=== PATIENT | female | born 1955 | race Caucasian/White ===

== ENCOUNTER → 2020-04-29 10:44 | Outpatient (BNVA) | payer OTHER, SELFPAY | PROVIDERS: PCP Internal Medicine Endocrinology, Diabetes & Metabolism; Visit Provider Nurse Practitioner Family | DX: Z13.89 Encounter for screening for other disorder (principal) | CPT/HCPCS: 99202 ==

== ENCOUNTER → 2020-05-15 10:58 | Outpatient (BNVA) | payer OTHER, SELFPAY | PROVIDERS: PCP Internal Medicine Endocrinology, Diabetes & Metabolism; Visit Provider Nurse Practitioner Family | DX: M16.12 Unilateral primary osteoarthritis, left hip (principal); M47.27 Other spondylosis with radiculopathy, lumbosacral region; M96.1 Postlaminectomy syndrome, not elsewhere classified | CPT/HCPCS: 99212 ==

== ENCOUNTER 2020-05-25 09:16 | Outpatient (REF) | payer OTHER, SELFPAY ==
--- NOTE | ~2020-05-25 | XR_ITS ---
EXAMINATION: XR HIP, LEFT CLINICAL INFORMATION: Arthritis COMPARISON: None TECHNIQUE: Two views of the left hip. FINDINGS: Bone alignment is normal. No fracture or dislocation is seen. There is moderate left hip arthritis with joint space narrowing and osteophyte formation. Soft tissues are unremarkable. XR/XR hip LT min 2V IMPRESSION: Moderate left hip arthritis.
== END 2020-05-25 09:17 | disposition home or self-care (01) ==
LOC: HO.XRAY 09:16
PROVIDERS: PCP Internal Medicine; Visit Provider Nurse Practitioner Family
DX: M16.12 Unilateral primary osteoarthritis, left hip (principal)
CPT/HCPCS: 73502

== ENCOUNTER → 2020-05-29 11:07 | Outpatient (BNVA) | payer OTHER, SELFPAY | PROVIDERS: PCP Internal Medicine; Visit Provider Nurse Practitioner Family ==

== ENCOUNTER → 2020-06-01 09:46 | Outpatient (BNVA) | payer OTHER, SELFPAY | PROVIDERS: PCP Internal Medicine; Visit Provider Nurse Practitioner Family | DX: M16.12 Unilateral primary osteoarthritis, left hip (principal); M96.1 Postlaminectomy syndrome, not elsewhere classified; M47.27 Other spondylosis with radiculopathy, lumbosacral region; Z79.899 Other long term (current) drug therapy | CPT/HCPCS: Q3014 ==

== ENCOUNTER → 2020-06-26 10:48 | Outpatient (BNVA) | payer OTHER, SELFPAY | PROVIDERS: PCP Internal Medicine; Visit Provider Nurse Practitioner Family | DX: M16.12 Unilateral primary osteoarthritis, left hip (principal); M96.1 Postlaminectomy syndrome, not elsewhere classified; M47.27 Other spondylosis with radiculopathy, lumbosacral region | CPT/HCPCS: 99212 ==

== ENCOUNTER → 2020-07-24 10:22 | Outpatient (BNVA) | payer OTHER, SELFPAY | PROVIDERS: PCP Internal Medicine; Visit Provider Nurse Practitioner Family | DX: M47.27 Other spondylosis with radiculopathy, lumbosacral region (principal); M16.12 Unilateral primary osteoarthritis, left hip; M96.1 Postlaminectomy syndrome, not elsewhere classified; Z79.899 Other long term (current) drug therapy | CPT/HCPCS: 99212 ==

== ENCOUNTER 2020-11-20 07:48 | Day surgery (SDC) | payer MEDICARE, OTHER, SELFPAY ==
[2020-11-16 15:06] VITALS: BMI 37.5
--- NOTE | 2020-11-19 18:34 | MHC.SHP ---
Pre-Procedural Eval Section A Date of Service: 11/19/20 Section B Chief Complaint: spondylosis of lumbosacral spine with radiculopath Details of Present Illness: As above Relevant Social History: None Present Medications: see Short Stay Collaborative assessment Medical History: No relevant PMH History of Previous Operations: Relevant previous surgery/procedure and date(s) Allergies: Allergies Allergy/AdvReac Type Severity Reaction Status Date / Time Sulfa (Sulfonamide Allergy Intermediate SWELLING Verified 11/16/20 14:55 Antibiotics) metformin AdvReac Intermediate diarrhea Verified 11/16/20 14:55 Review of Systems Sugical H&P ROS: Negative: Constitution, Cardiovascular, Respiratory, Neurological, Psychiatric, Hem-Onc, Allergic/Immunologic, Gastrointestinal, Genitourinary, Musculoskeletal, Integumentary, Endocrine and Eyes/Ears/Nose/Throat Exam Surgical H&P Exam: Normal: HEENT, Normal: Heart, Normal: Lungs, Normal: Extremities, Normal: Abdomen, Normal: Skin and Normal: Neurological Plan Diagnosis/Plan: Unchanged I have reviewed the history and physical and performed a pertinent physical examination on my patient. No changes have occurred unless specified.
--- NOTE | ~2020-11-20 | FL_ITS ---
EXAMINATION: XR FLUOROSCOPY WITH IMAGES CLINICAL INFORMATION: Spinal cord stimulation trial. COMPARISON: None. TECHNIQUE: Fluoroscopy performed by Dr. Rell Leavitt. Fluoroscopy time: 2.6 minutes DAP: 20.2 mGycm2 Images: 2 FINDINGS: The 2 submitted images obtained in the frontal and lateral planes show spinal cord stimulator leads. The 2 leads terminate at the level of the T9 upper and lower endplates. No lead fracture is seen. There are upper abdominal surgical clips. FL/FL guidance in OR IMPRESSION: Intraoperative fluoroscopic guidance is provided during spinal cord stimulation trial. Please see Operative Report for full procedural details.
[2020-11-20 08:00] VITALS: BP 130/78; PULSE 63; RESP 18; TEMP 36.8; O2SAT 95
[2020-11-20 08:12] LABS: Glucose, Whole Blood 126 mg/dL (60-115)
[2020-11-20] MEDS: ceFAZolin Sodium/Dextrose,Iso 2 GM/50 ML PIGGYBACK IV (08:25)
--- NOTE | 2020-11-20 09:39 | P.CONAN_ITS ---
[facility] Active Problems Active Problems: All Active Problems (Updated 11/16/20 @ 15:05 by Michelle fong RN) Spondylosis of lumbosacral spine with radiculopathy (Acute) Failed back syndrome (Acute) Osteoarthritis of left hip (Acute) Past Medical History Medical History Ambulates with cane Ankle pain, right Arthritis of left hip COPD (chronic obstructive pulmonary disease) Elevated cholesterol Full dentures IDDM (insulin dependent diabetes mellitus) Liver cyst Low back pain Family History Family history of problems with anesthesia: No Surgical History Surgical History History of back surgery Hx of carpal tunnel repair Hx of colonoscopy History of Problems with Anesthesia: No Social History Social History Patient Tobacco Use Status: Former Tobacco user Quit Date: 2008 Tobacco use type: Cigarette Are you DNR?: No Advance Directives: No Advance Directives Information Provided: No Advance Directives on File: No Meds Allergies Allergy/AdvReac Type Severity Reaction Status Date / Time Sulfa (Sulfonamide Allergy Intermediate SWELLING Verified 11/16/20 14:55 Antibiotics) metformin AdvReac Intermediate diarrhea Verified 11/16/20 14:55 Home Medications Medication Instructions Recorded Confirmed Last Taken Type baclofen 10 mg tablet 10 mg PO BID 04/29/20 11/16/20 11/20/20 History cyanocobalamin (vitamin B-12) 1,000 mcg PO DAILY 04/29/20 11/16/20 Unknown History 1,000 mcg capsule fluticasone propionate 230 2 puff INHALATION BID 04/29/20 11/16/20 Unknown History mcg-salmeterol 21 mcg/actuation HFA inhaler (Advair HFA) ibuprofen 800 mg tablet 800 mg PO TID PRN 04/29/20 11/16/20 Unknown History loratadine 10 mg tablet (Claritin) 10 mg PO DAILY 04/29/20 11/16/20 11/20/20 History multivitamin (Daily Multi-Vitamin) 1 tab PO DAILY 04/29/20 11/16/20 Unknown History thiamine HCl (vitamin B1) 100 mg 100 mg PO DAILY 04/29/20 11/16/20 Unknown History tablet albuterol sulfate 90 mcg/actuation 2 puff INHALATION Q6H PRN 11/16/20 11/16/20 Unknown History aerosol inhaler (Ventolin HFA) atorvastatin 20 mg tablet 20 mg PO BEDTIME 11/16/20 11/16/20 Unknown History cholecalciferol (vitamin D3) 25 25 mcg PO DAILY 11/16/20 11/16/20 Unknown History mcg (1,000 unit) capsule (Vitamin D3) hydroxyzine HCl 10 mg tablet 1 tab PO BID 11/16/20 11/16/20 11/20/20 History hydroxyzine HCl 25 mg tablet 1 tab PO QPM 11/16/20 11/16/20 Unknown History insulin glargine 100 unit/mL (3 10 unit SUBCUT BEDTIME 11/16/20 11/16/20 Unknown History mL) subcutaneous pen (Lantus Solostar U-100 Insulin) naproxen 500 mg tablet 500 mg PO BID 11/16/20 11/16/20 Unknown History Exam Exam Date and Time: November 20, 2020 0939 Height,Weight and Vital Signs: Height 5 ft Weight 87.09 kg Last Vital Signs Temp 98.2 F 11/20/20 08:00 Pulse 63 11/20/20 08:00 Resp 18 11/20/20 08:00 BP 130/78 11/20/20 08:00 Pulse Ox 95 11/20/20 08:00 Pertinent Lab Results Pertinent Lab Results: Laboratory Tests 11/20/20 08:07 POC Glucose 126 H Airway Mallampati Class: II TM Dist: >3cm Neck ROM: Full Assessment and Plan Assessment Anesthesia Assessment: Anesthesia Plan Discussed and Chart Reviewed Final Anesthetic Review Family History of Problems with Anesthesia: No History of Problems with Anesthesia: No NPO: Yes ASA Class: III Final Preanesthetic Review: No Changes in Pt Med Stat, Meds/Allgs Chart Reviewed, Consent Obtained/Reviewed and Anes Risks/Benef Reviewed Patient Risk: Intermediate Procedure Risk: Low Assessment/Block/Sedation in SS: Assess/Block/Sedation-SS Anesthetic Plan Anesthetic Plan: MAC: Disposition: Standard PACU
[2020-11-20 11:20] VITALS: BP 114/76; PULSE 53; RESP 12; TEMP 36.6; O2SAT 96
--- NOTE | 2020-11-20 11:27 | PM.OP ---
Brief Operative Note Date of Service: 11/20/20 Pre-op diagnosis: Failed back surgery syndrome Post-op diagnosis: same Procedure: As above Implants: None permanent Surgeon: Rell Leavitt MD Anesthesia: MAC Was an [employer] Consultant used for this Procedure?: No Estimated blood loss (mL): 4 Pathology: none sent Condition: stable Disposition: PACU
--- NOTE | 2020-11-20 11:28 | W.PM.OPN ---
Operative Note Operative Note Date of Service: 11/20/20 Narrative: Yanet?is very pleasant??64 years old lady who came today into the operating room for trial of spinal cord stimulator for the treatment of post laminectomy syndrome and chronic pain syndrome.? Preoperatively patient received 2 g of cefazolin approximately 15 minutes before procedure. After obtaining informed consent patient was brought to the operating room, SHE was positioned prone on operating table, [place] [employer] monitors were applied and patient was deeply sedated.? The patient was taken inside of the operating room where she was positioned prone on operating table.? Time-out was performed delineating correct site, side, the nature of the procedure, patient's allergy, preoperative antibiotic if needed.? All operating room staff was participating in OR time-out procedure. Patient's entire back was prepped with ChloraPrep twice and draped with full body fenestrated drape.? Sterilely draped C-arm was brought over operating field and sqare picture of T11-T12 L1 L2 vertebrae as were demonstrated on the screen.? Extensive hardware from L2-S1 was noted on the screen. Attention FIRST? was concentrated on the T12-L1 epidural interspace.? The location of the projection of the right pedicle center of the L2 vertebra was found on the skin using C-arm.? This location was injected with mixture of lidocaine 2% and Marcaine 0.5% 5 cc.? After that 11 blade was used to make a kenneth on the skin.? 10 cm 14 gauge introducer epidural needle was inserted through the kenneth and advanced to T12-L1 epidural interspace.? The advancement of the needle was performed on anterior posterior and lateral views.? Guitar wire and loss of resistance technique were used to locate epidural space.? When guitar wire was spread in the epidural fashion, epidural lead was inserted through the skin and it was advanced to T8 position SLIGHTLY RIGHT OF THE MIDLINE.? After that location of the projection of the LEFT pedicle center and pedicular screw in this projection of the L2 vertebra was found on the skin using C-arm.? This location was injected with mixture of lidocaine 2% and Marcaine 0.5% 5 cc.? After that 11 blade was used to make a kenneth on the skin.? 10 cm 14 gauge ?introducer epidural needle was inserted through the kenneth and advanced to T12-L1 epidural interspace.? The advancement of the needle was performed on anterior posterior and lateral views.? Loss of resistance technique was used to locate epidural space.? When guitar wire was spread in the epidural fashion, epidural lead was inserted through the needle and advanced to the T8 posterior epidural space practically at the midline. At this moment patient was awaken and the epidural leads were connected to the testing device.? The patient reported stimulation corresponding to her pain.? After satisfactory position of the leads were established the needles were withdrawn, the stylette wires were removed from the epidural leads.? The anchoring devices were dislodged on the leads and advanced to the level of the skin.? The anchoring devices were sutured with 3 0-0 silk sutures to each anchoring device to the skin of the patient.? The leads were connected to testing device.? Bacitracin ointment was applied to the entrance point of bilateral needles.? Sterile dressing was applied to the patient's back.? The testing device was also glued to the patient's back.? Upon completion of the procedure the patient was taken to PACU where SHE recovered uneventfully.??
[2020-11-20 11:35] VITALS: BP 152/80; PULSE 57; RESP 16; O2SAT 96
[2020-11-20 11:50] VITALS: BP 159/83; PULSE 57; RESP 17; O2SAT 96
== END 2020-11-20 12:40 | disposition home or self-care (01) ==
PROVIDERS: PCP Internal Medicine; Visit Provider Anesthesiology
PROC: (CPT 63650; principal; 2020-11-20 09:30)
DX: M96.1 Postlaminectomy syndrome, not elsewhere classified (principal); G89.4 Chronic pain syndrome; M47.27 Other spondylosis with radiculopathy, lumbosacral region; E11.9 Type 2 diabetes mellitus without complications; Z79.4 Long term (current) use of insulin
CPT/HCPCS: 63650 ×2; 82947; C1778; C1883; J0690; J2250; J3010

== ENCOUNTER → 2020-11-26 10:03 | Outpatient (BNVA) | payer MEDICARE, OTHER, MEDICAID, SELFPAY | PROVIDERS: PCP Internal Medicine; Visit Provider Anesthesiology | DX: M16.12 Unilateral primary osteoarthritis, left hip (principal); M96.1 Postlaminectomy syndrome, not elsewhere classified; M47.27 Other spondylosis with radiculopathy, lumbosacral region | CPT/HCPCS: 99212 ==

== ENCOUNTER 2021-02-25 10:36 | Day surgery (SDC) | payer MEDICARE, OTHER, SELFPAY ==
[2021-02-16 13:59] VITALS: BMI 38.5
--- NOTE | 2021-02-24 11:44 | P.CONAN_ITS ---
Documented by User: Keyla Mariscal NP 02/24/21 11:45 HPI - Anesthesia Eval Consult details Narrative: 65yo F for Lumbar Spinal Stimulation Implant s/p trial 10/2020 with MAC [facility] Active Problems Active Problems: All Active Problems (Updated 02/16/21 @ 13:59 by Karuna Medel, VILMA) Spondylosis of lumbosacral spine with radiculopathy (Acute) Failed back syndrome (Acute) Osteoarthritis of left hip (Acute) Past Medical History Medical History (Updated 02/16/21 @ 13:59 by Karuna Medel RN) Ambulates with cane Ankle pain, right Arthritis of left hip COPD (chronic obstructive pulmonary disease) COVID-19 vaccine series completed Elevated cholesterol Full dentures IDDM (insulin dependent diabetes mellitus) Liver cyst Low back pain Status post insertion of nerve stimulator Family History Family history of problems with anesthesia: No Surgical History Surgical History History of back surgery Hx of carpal tunnel repair Hx of colonoscopy History of Problems with Anesthesia: No Social History Social History Patient Tobacco Use Status: Former Tobacco user Quit Date: 2008 Tobacco use type: Cigarette Use of substances other than those prescribed or required for medical reasons: No Have you been hit, kicked, punched, or otherwise hurt by someone within the past year? If so, by whom?: No Are you DNR?: No Advance Directives: No Advance Directives Information Provided: Yes Advance Directives on File: No Recently lost weight without trying: No Eating poorly because of decreased appetite: No Nutrition Risks: No Nutritional Risk Meds Allergies Allergy/AdvReac Type Severity Reaction Status Date / Time Sulfa (Sulfonamide Allergy Intermediate SWELLING Verified 11/16/20 14:55 Antibiotics) metformin AdvReac Intermediate diarrhea Verified 11/16/20 14:55 Home Medications Medication Instructions Recorded Confirmed Last Taken Type baclofen 10 mg tablet 10 mg PO BID 04/29/20 02/16/21 11/20/20 History cyanocobalamin (vitamin B-12) 1,000 mcg PO DAILY 04/29/20 02/16/21 Unknown History 1,000 mcg capsule fluticasone propionate 230 2 puff INHALATION BID 04/29/20 02/16/21 Unknown History mcg-salmeterol 21 mcg/actuation HFA inhaler (Advair HFA) ibuprofen 800 mg tablet 800 mg PO TID PRN 04/29/20 02/16/21 Unknown History loratadine 10 mg tablet (Claritin) 10 mg PO DAILY 04/29/20 02/16/21 11/20/20 History multivitamin (Daily Multi-Vitamin) 1 tab PO DAILY 04/29/20 02/16/21 Unknown History thiamine HCl (vitamin B1) 100 mg 100 mg PO DAILY 04/29/20 02/16/21 Unknown History tablet albuterol sulfate 90 mcg/actuation 2 puff INHALATION Q6H PRN 11/16/20 02/16/21 Unknown History aerosol inhaler (Ventolin HFA) atorvastatin 20 mg tablet 20 mg PO BEDTIME 11/16/20 02/16/21 Unknown History cholecalciferol (vitamin D3) 25 25 mcg PO DAILY 11/16/20 02/16/21 Unknown History mcg (1,000 unit) capsule (Vitamin D3) hydroxyzine HCl 10 mg tablet 1 tab PO BID 11/16/20 02/16/21 11/20/20 History hydroxyzine HCl 25 mg tablet 1 tab PO QPM 11/16/20 02/16/21 Unknown History insulin glargine 100 unit/mL (3 10 unit SUBCUT BEDTIME 11/16/20 02/16/21 Unknown History mL) subcutaneous pen (Lantus Solostar U-100 Insulin) naproxen 500 mg tablet 500 mg PO BID 11/16/20 02/16/21 Unknown History Exam Exam Date and Time: February 24, 2021 1144 Height,Weight and Vital Signs: Height 5 ft Weight 89.358 kg Assessment and Plan Assessment Anesthesia Assessment: Chart Reviewed Final Anesthetic Review Family History of Problems with Anesthesia: No History of Problems with Anesthesia: No Documented by User: Jayme Herbert 02/25/21 12:53 [facility] Past Medical History Medical History (Updated 02/16/21 @ 13:59 by Karuna Medel RN) Ambulates with cane Ankle pain, right Arthritis of left hip COPD (chronic obstructive pulmonary disease) COVID-19 vaccine series completed Elevated cholesterol Full dentures IDDM (insulin dependent diabetes mellitus) Liver cyst Low back pain Status post insertion of nerve stimulator Surgical History Surgical History History of back surgery Hx of carpal tunnel repair Hx of colonoscopy Social History Social History Patient Tobacco Use Status: Former Tobacco user Quit Date: 2008 Tobacco use type: Cigarette Use of substances other than those prescribed or required for medical reasons: No Have you been hit, kicked, punched, or otherwise hurt by someone within the past year? If so, by whom?: No Are you DNR?: No Advance Directives: No Advance Directives Information Provided: Yes Advance Directives on File: No Recently lost weight without trying: No Eating poorly because of decreased appetite: No Nutrition Risks: No Nutritional Risk Meds Allergies Allergy/AdvReac Type Severity Reaction Status Date / Time Sulfa (Sulfonamide Allergy Intermediate SWELLING Verified 11/16/20 14:55 Antibiotics) metformin AdvReac Intermediate diarrhea Verified 11/16/20 14:55 Home Medications Medication Instructions Recorded Confirmed Last Taken Type baclofen 10 mg tablet 10 mg PO BID 04/29/20 02/16/21 11/20/20 History cyanocobalamin (vitamin B-12) 1,000 mcg PO DAILY 04/29/20 02/16/21 Unknown History 1,000 mcg capsule fluticasone propionate 230 2 puff INHALATION BID 04/29/20 02/16/21 Unknown History mcg-salmeterol 21 mcg/actuation HFA inhaler (Advair HFA) ibuprofen 800 mg tablet 800 mg PO TID PRN 04/29/20 02/16/21 Unknown History loratadine 10 mg tablet (Claritin) 10 mg PO DAILY 04/29/20 02/16/21 11/20/20 History multivitamin (Daily Multi-Vitamin) 1 tab PO DAILY 04/29/20 02/16/21 Unknown History thiamine HCl (vitamin B1) 100 mg 100 mg PO DAILY 04/29/20 02/16/21 Unknown History tablet albuterol sulfate 90 mcg/actuation 2 puff INHALATION Q6H PRN 11/16/20 02/16/21 Unknown History aerosol inhaler (Ventolin HFA) atorvastatin 20 mg tablet 20 mg PO BEDTIME 11/16/20 02/16/21 Unknown History cholecalciferol (vitamin D3) 25 25 mcg PO DAILY 11/16/20 02/16/21 Unknown History mcg (1,000 unit) capsule (Vitamin D3) hydroxyzine HCl 10 mg tablet 1 tab PO BID 11/16/20 02/16/21 11/20/20 History hydroxyzine HCl 25 mg tablet 1 tab PO QPM 11/16/20 02/16/21 Unknown History insulin glargine 100 unit/mL (3 10 unit SUBCUT BEDTIME 11/16/20 02/16/21 Unknown History mL) subcutaneous pen (Lantus Solostar U-100 Insulin) naproxen 500 mg tablet 500 mg PO BID 11/16/20 02/16/21 Unknown History Exam Airway Mallampati Class: I Neck ROM: Full Denture: Upper Partial: Upper Loose/Missing/Broken Teeth: Yes Heart: rrr Lungs: bl breath sounds Assessment and Plan Final Anesthetic Review NPO: Yes ASA Class: II Final Preanesthetic Review: Meds/Allgs Chart Reviewed and Anes Risks/Benef Reviewed Patient Risk: Intermediate Procedure Risk: Intermediate Anesthetic Plan Anesthetic Plan: MAC: Disposition: Standard PACU
--- NOTE | ~2021-02-25 | FL_ITS ---
EXAMINATION: XR FLUOROSCOPY WITH IMAGES CLINICAL INFORMATION: Lumbar spinal stimulator implant. COMPARISON: None. TECHNIQUE: Fluoroscopy performed by Dr. Rell Leavitt. Fluoroscopy time: 4.8 minutes DAP: 29.7 Gycm2 Images: 3 FINDINGS: There is spinal stimulator wiring identified extending to the mid thoracic spine. FL/FL guidance in OR IMPRESSION: Fluoroscopic guidance for spinal stimulator wiring placement. Please refer to procedural report for further information.
[2021-02-25 11:27] VITALS: BP 129/69; PULSE 62; RESP 16; TEMP 36.2; O2SAT 96
[2021-02-25 11:28] LABS: Glucose, Whole Blood 87 mg/dL (60-115)
[2021-02-25] MEDS: Lactated Ringers 1,000 ML 100 ML IVCONT (12:12)
--- NOTE | 2021-02-25 12:47 | MHC.SHP ---
Pre-Procedural Eval Section A Date of Service: 02/25/21 The patient is an INPATIENT: No Changes since office visit: Yes Patient answered all questions The History & Physical has been completed within 30 days and I have reviewed it.: No Section B Chief Complaint: Postlaminectomy syndrome Details of Present Illness: Postlaminectomy syndrome Relevant Family History (Specify if Yes): No Relevant Social History: None Present Medications: None Medical History: No relevant PMH History of Previous Operations: Relevant previous surgery/procedure and date(s) Allergies: Allergies Allergy/AdvReac Type Severity Reaction Status Date / Time Sulfa (Sulfonamide Allergy Intermediate SWELLING Verified 11/16/20 14:55 Antibiotics) metformin AdvReac Intermediate diarrhea Verified 11/16/20 14:55 Review of Systems Sugical H&P ROS: Negative: Cardiovascular, Respiratory, Neurological, Psychiatric, Hem-Onc, Allergic/Immunologic, Gastrointestinal, Genitourinary, Musculoskeletal, Integumentary, Endocrine and Eyes/Ears/Nose/Throat and Yes, Specify: Constitution (Morbid obesity) Exam Surgical H&P Exam: Normal: HEENT, Normal: Heart, Normal: Lungs, Normal: Abdomen, Normal: Skin and Normal: Neurological and Significant Findings: Extremities (enlarged 2 to intra-abdominal fat) Plan Diagnosis/Plan: Unchanged I have reviewed the history and physical and performed a pertinent physical examination on my patient. No changes have occurred unless specified.
--- NOTE | 2021-02-25 12:57 | W.PM.OPN ---
Operative Note Operative Note Date of Service: 02/25/21 Narrative: Yanet is very pleasant 65 years old female who came today into the operating room for implantation of spinal cord stimulator for the treatment of pain related to? postlaminectomy syndrome.? She had successful trial of spinal cord stimulation [employer]. ? Preoperatively patient received antibiotic cefasolin? 2g approximately 30 minutes before the procedure. After obtaining informed consent patient was brought to the operating room, she was positioned prone on the OR table, [place] [employer] monitors were applied and patient was sedated. ?? Time-out was performed delineating correct site, side, the nature of the procedure, patient's allergy, preoperative antibiotic.? All operating room staff was participating in OR time-out procedure. Patient's entire back was prepped with ChloraPrep twice and draped with full body drape including Iob[place] film.? Sterilely draped C-arm was brought over operating field and square picture of T12, L1, L2?vertebrae? were demonstrated on the screen.? THE PROJECTION OF?L1- L2??SPINOUS PROCESSES TO THE SKIN WERE INFILTRATED WITH LIDOCAINE 2% MIXED WITH BUPIVACAINE 0.5%.? 7 CM LONG VERTICAL INCISION using a 10 blade scalpel WAS PERFORMED IN STRICT MIDLINE VERTICAL FASHION.? THOROUGH HEMOSTASIS WAS PERFORMED using electrocautery. ?Thorough tissue dissections was performed until prevertebral fascia was freed from overlying tissues.? Attention FIRST? was concentrated on the RIGHT T12-L1 epidural interspace.? The location of the projection of the right pedicle center of the?L2?vertebra was found on the prevertebral fascia using C-arm.? This location was injected with mixture of lidocaine 2% and Marcaine 0.5% 5 cc in approximate direction of needle advancement.? After that ? 10 cm 14 gauge curved introducer epidural needle was inserted through the fascia and advanced toward?T12-L1 epidural interspace.? The advancement of the needle was performed on anterior posterior and lateral views.? Guitar wire and loss of resistance technique were used to locate epidural space.?When loss of resistance was felt in the needle, guitar wire was inserted into the needle.? guitar wire was spread in the epidural fashion, epidural lead was inserted through the skin and it was advanced to the position in the POSTERIOR EPIDURAL SPACE slightly left TO THE MIDLINE at the posterior T7 vertebral body body epidural space. After that location of the projection of the LEFT pedicle center of the L2 vertebra was found -using C-arm.? This location was injected with mixture of lidocaine 2% and Marcaine 0.5% 5 cc.. .? Again here 10 cm 14 gauge straight epidural needle was inserted through the prevertebral fashion advanced T12-L1 intervertebral interspace.? Loss of resistance to air technique was used to locate epidural space and guitar wire was used to confirm position of the epidural space. .When guitar wire was spread in the epidural fashion, epidural lead was inserted through the needle and advanced to the T8 POSTERIOR EPIDURAL SPACE SLIGHTLY?right to the existing LEAD.? THE LOCATION OF BOTH LEADS WAS VERIFIED ON ANTERIOR POSTERIOR AND LATERAL VIEWS. On the lateral view the electrodes were positioned strictly posterior THE PATIENT WAS AWAKEN? and the test of the stimulation was performed. The patient reported stimulation corresponding to his pain. She was resedated after that. After satisfactory position of the leads were established the needles were withdrawn, the stylette wires were removed from the epidural leads.? The anchoring devices were dislodged on the leads and advanced to the level of the skin.? The anchoring devices were advanced along the epidural leads and dislodged and epidural leads at the level of prevertebral fascia.? They were sutured to prevertebral fascia with 2 separate Tycron sutures per each anchoring device.\ After that the wound was irrigated with copious amount of Vancomycin containing normal saline and packed with Vancomycin soaked 4 x 4. ?After that attention was concentrated on the left upper buttock??of the patient?where she wanted the? battery to be implanted.? 6 cm long horizontal incision was performed 3 cm below the projection to the skin of the top left illiac crest. the wound was deepened and widened and thorough hemostasis was performed. The pocket was created to accomodate the battery. Irrigation with vancomycin containing saline was performed.After that the? tunneling device was used to connect midline incision and the left upper buttock incision. Thorough hemostasis was performed. ? The impedance was satisfactory.? After that tunneling device was used to connect both wounds.? Cervical leads from the thoracic wound were dislodged into the upper buttock wound.? They were connected to the battery. The impedance was satisfactory. After that both wounds were thoroughly irrigated with normal saline containing vancomycin.? Sutures were applied to the most superior lateral and most superior medial corners of the? wound.? The battery was inserted into antimicrobial pocket a and epidural leads were gathered behind the body of the battery. The anchoring sutures were tied after the battery was inserted into the pocket with the epidural leads collected behind the body of the battery outside the anti microbial pocket. After that 0 Vicryl sutures were used to close both wounds.?2-0 Vicryl was used to approximate the level of the skin.? Debbie were applied to skin level.? Bacitracin ointment was smeared on the staple line.? Sterile dressing was applied.? Abdominal binder was applied.? The patient was transferred to the stretcher, awaken, and in stable condition transferred to PACU.? She recovered uneventfully.? ?
[2021-02-25 15:50] VITALS: BP 129/88; PULSE 59; RESP 15; TEMP 35.9; O2SAT 97
--- NOTE | 2021-02-25 15:50 | P.BOP_ITS ---
Brief Operative Note Date of Service: 02/25/21 Pre-op diagnosis: Postlaminectomy syndrome Post-op diagnosis: same Procedure: Implantation of [employer]onic spinal cord stimulator. Implants: [employer]tronic spinal cord stimulator battery intellis and 2 epidural leads with electrodes. Surgeon: Rell Leavitt MD Anesthesia: MAC Was an Structural Metal Worker used for this Procedure?: No Estimated blood loss (mL): 10 Pathology: none sent Condition: stable Disposition: PACU
[2021-02-25 16:03] VITALS: BP 137/70; PULSE 58; RESP 16; TEMP 36.1; O2SAT 97
== END 2021-02-25 16:25 | disposition home or self-care (01) ==
PROVIDERS: PCP Internal Medicine; Visit Provider Anesthesiology
PROC: (CPT 63685; principal; 2021-02-25 12:10)
DX: M96.1 Postlaminectomy syndrome, not elsewhere classified (principal); M47.27 Other spondylosis with radiculopathy, lumbosacral region; M54.50 Low back pain, unspecified; R10.32 Left lower quadrant pain; M25.572 Pain in left ankle and joints of left foot; M16.12 Unilateral primary osteoarthritis, left hip; R20.0 Anesthesia of skin; G62.9 Polyneuropathy, unspecified; J44.9 Chronic obstructive pulmonary disease, unspecified; Z98.890 Other specified postprocedural states; Z98.1 Arthrodesis status; E11.9 Type 2 diabetes mellitus without complications; Z79.4 Long term (current) use of insulin; Z79.899 Other long term (current) drug therapy; Z88.2 Allergy status to sulfonamides; Z88.8 Allergy status to other drugs, medicaments and biological substances; Z87.891 Personal history of nicotine dependence
CPT/HCPCS: 63685; 63650 ×2; 82947; C1778; C1787; C1820; C1897; J0690; J2250; J3010; J3370

== ENCOUNTER → 2021-03-03 11:17 | Outpatient (BNVA) | payer MEDICARE, OTHER, SELFPAY | PROVIDERS: PCP Internal Medicine; Visit Provider Anesthesiology | DX: M96.1 Postlaminectomy syndrome, not elsewhere classified (principal); M16.12 Unilateral primary osteoarthritis, left hip; M47.27 Other spondylosis with radiculopathy, lumbosacral region | CPT/HCPCS: 99212 ==

== ENCOUNTER → 2021-03-10 11:19 | Outpatient (BNVA) | payer MEDICARE, OTHER, MEDICAID, SELFPAY | PROVIDERS: PCP Internal Medicine; Visit Provider Anesthesiology | DX: M16.12 Unilateral primary osteoarthritis, left hip (principal); M96.1 Postlaminectomy syndrome, not elsewhere classified; M47.27 Other spondylosis with radiculopathy, lumbosacral region; Z96.82 Presence of neurostimulator | CPT/HCPCS: 99212 ==

== ENCOUNTER 2022-02-21 15:41 | Outpatient (REF) | payer MEDICARE, OTHER, MEDICAID, SELFPAY ==
--- NOTE | ~2022-02-21 | XR_ITS ---
EXAMINATION: XR BILATERAL HIPS WITH AP PELVIS CLINICAL INFORMATION: Unspecified osteoarthritis. COMPARISON: Left hip 05/25/2020 TECHNIQUE: Two views of each hip were obtained. FINDINGS: RIGHT HIP: There is severe loss of the right hip joint space with periarticular spurring. No bony erosive changes. There are no loose bodies. There are subchondral cystic changes along the right femoral head No visible acute fracture or dislocation is seen. The soft tissues are normal. There is mild sclerosis of the right SI joint. LEFT HIP: There is severe loss of the left hip joint space with inferior periarticular spurring. No bony erosive changes, loose bodies or fracture or dislocation is seen. The soft tissues are normal. There is mild sclerosis of the left SI joint. XR/XR hips RENETTA min 3V IMPRESSION: Lhbhucwz-rg-egzkkb degenerative changes of the bilateral hip joints. No visible acute fracture or dislocation is seen. The left hip joint arthritis has progressed. Mild sclerosis of the bilateral SI joints suspicious for sacroiliitis.
== END 2022-02-21 15:42 | disposition home or self-care (01) ==
LOC: HO.XRAY 15:41
PROVIDERS: PCP Internal Medicine; Visit Provider Anesthesiology
DX: M19.90 Unspecified osteoarthritis, unspecified site (principal); M96.1 Postlaminectomy syndrome, not elsewhere classified; M47.27 Other spondylosis with radiculopathy, lumbosacral region
CPT/HCPCS: 73522; 99212

== ENCOUNTER → 2022-03-10 08:41 | Outpatient (BNVA) | payer MEDICARE, OTHER, MEDICAID, SELFPAY | PROVIDERS: PCP Internal Medicine; Visit Provider Anesthesiology | DX: M96.1 Postlaminectomy syndrome, not elsewhere classified (principal); M19.90 Unspecified osteoarthritis, unspecified site; M47.27 Other spondylosis with radiculopathy, lumbosacral region | CPT/HCPCS: Q3014 ==

== ENCOUNTER 2022-04-12 06:37 | Outpatient (REF) | payer MEDICARE, OTHER, MEDICAID, SELFPAY ==
--- NOTE | ~2022-04-12 | FL_ITS ---
EXAMINATION: XR FLUOROSCOPY WITH IMAGES CLINICAL INFORMATION: Other spondylosis with radiculopathy, lumbosacral region COMPARISON: X-rays of 02/21/2022 TECHNIQUE: Fluoroscopy Supervised By: Bre Fluoroscopy Time: 0.2 minutes. Cumulative Dose: 6.14 mGy. DAP: 1.67 Gycm2. Images: 2. FL/FL guidance in treatment room FINDINGS/IMPRESSION: 2 images show a needle with contrast injection in the hip joint space. The images are labeled left and right.
== END 2022-04-12 06:38 | disposition home or self-care (01) ==
LOC: CF 06:37
PROVIDERS: Visit Provider Anesthesiology
DX: M47.27 Other spondylosis with radiculopathy, lumbosacral region (principal); M96.1 Postlaminectomy syndrome, not elsewhere classified; M16.0 Bilateral primary osteoarthritis of hip
CPT/HCPCS: 20610; J3301

== ENCOUNTER → 2022-05-18 10:13 | Outpatient (BNVA) | payer OTHER, SELFPAY | PROVIDERS: PCP Internal Medicine; Visit Provider Anesthesiology | DX: M19.90 Unspecified osteoarthritis, unspecified site (principal); M96.1 Postlaminectomy syndrome, not elsewhere classified; M47.27 Other spondylosis with radiculopathy, lumbosacral region | CPT/HCPCS: 99212 ==

== ENCOUNTER 2022-05-24 06:04 | Outpatient (REF) | payer OTHER, MEDICAID, SELFPAY ==
--- NOTE | ~2022-05-24 | FL_ITS ---
EXAMINATION: XR FLUOROSCOPY WITH IMAGES CLINICAL INFORMATION: M53.3 - Sacrococcygeal disorders, not elsewhere classified COMPARISON: Bilateral hip radiographs 02/21/2022 TECHNIQUE: Fluoroscopy Supervised By: Dr. Rell Leavitt. Fluoroscopy Time: 0.5 minutes. Cumulative Dose: 9.44 mGy. DAP: 1.28 Gycm2. Images: 2. FINDINGS: There is a spinal needle overlying the lower left SI joint and a spinal needle overlying the mid right SI joint. There is contrast in the periarticular soft tissues with probable early intra-articular contrast. Again, there is fusion hardware lumbosacral spine and a generator with spinal stimulator leads in the [id number]. FL/FL guidance in treatment room IMPRESSION: Fluoroscopy for pain management procedures.
== END 2022-05-24 06:05 | disposition home or self-care (01) ==
LOC: CF 06:04
PROVIDERS: Visit Provider Anesthesiology
DX: M46.1 Sacroiliitis, not elsewhere classified (principal); M53.3 Sacrococcygeal disorders, not elsewhere classified; M96.1 Postlaminectomy syndrome, not elsewhere classified; M47.27 Other spondylosis with radiculopathy, lumbosacral region; M19.90 Unspecified osteoarthritis, unspecified site
CPT/HCPCS: 27096; J3301

== ENCOUNTER → 2022-06-06 12:05 | Outpatient (BNVA) | payer MEDICARE, OTHER, MEDICAID, SELFPAY | PROVIDERS: PCP Internal Medicine; Visit Provider Orthopaedic Surgery | DX: M16.0 Bilateral primary osteoarthritis of hip (principal); M47.27 Other spondylosis with radiculopathy, lumbosacral region | CPT/HCPCS: 99202 ==

== ENCOUNTER → 2022-07-04 10:25 | Outpatient (BNVA) | payer MEDICARE, OTHER, MEDICAID, SELFPAY | PROVIDERS: PCP Internal Medicine; Visit Provider Anesthesiology | DX: M96.1 Postlaminectomy syndrome, not elsewhere classified (principal); M47.27 Other spondylosis with radiculopathy, lumbosacral region; M46.1 Sacroiliitis, not elsewhere classified; M19.90 Unspecified osteoarthritis, unspecified site | CPT/HCPCS: 99212 ==

== ENCOUNTER → 2022-07-08 09:51 | Outpatient (BNVA) | payer MEDICARE, OTHER, MEDICAID, SELFPAY | PROVIDERS: PCP Internal Medicine; Visit Provider Anesthesiology ==

== ENCOUNTER 2022-07-28 13:13 | Emergency (ER) | payer MEDICARE, OTHER, MEDICAID, SELFPAY ==
--- NOTE | ~2022-07-28 | XR_ITS ---
EXAMINATION: XR TIBIA/FIBULA, RIGHT XR PELVIS XR KNEE, RIGHT XR FOOT, RIGHT CLINICAL INDICATION: Fall. Pain. COMPARISON: None available. TECHNIQUE: AP pelvis, right knee 4 views, right tibia and fibula 2 views, and right foot 3 views. FINDINGS: AP PELVIS: There is loss of bilateral hip joint space with periarticular and subchondral cystic changes. No visible fracture or dislocation. SI joints are symmetrical. There is mild degenerative arthritic changes of pubic symphysis. There is lumbar spine hardware and epidural electrodes with hardware. RIGHT KNEE: There is mild loss of medial and patellofemoral compartment joint space. No visible acute fracture, dislocation or subluxation seen. No bony erosive changes. The soft tissues are normal. No joint effusion. RIGHT TIBIA AND FIBULA: There is loss of ankle mortise joint space with subchondral cystic changes. No visible acute fracture or dislocation. There is bimalleolar soft tissue swelling. RIGHT FOOT: There is no visible acute fracture or dislocation. No bony erosive changes. Small calcaneal heel enthesophyte seen. The soft tissues are normal. XR/XR tibia fibula RT 2V IMPRESSION: 1. No acute fracture or dislocation AP pelvis. Mild degenerative changes bilateral hip joints. 2. Mild degenerative changes medial and patellofemoral compartment right knee. No visible acute fracture, dislocation or joint effusion. 3. Bimalleolar soft tissue swelling but no visible acute fracture or dislocation right tibia and fibula. 4. Unremarkable right foot exam.
--- NOTE | ~2022-07-28 | XR_ITS ---
EXAMINATION: XR TIBIA/FIBULA, RIGHT XR PELVIS XR KNEE, RIGHT XR FOOT, RIGHT CLINICAL INDICATION: Fall. Pain. COMPARISON: None available. TECHNIQUE: AP pelvis, right knee 4 views, right tibia and fibula 2 views, and right foot 3 views. FINDINGS: AP PELVIS: There is loss of bilateral hip joint space with periarticular and subchondral cystic changes. No visible fracture or dislocation. SI joints are symmetrical. There is mild degenerative arthritic changes of pubic symphysis. There is lumbar spine hardware and epidural electrodes with hardware. RIGHT KNEE: There is mild loss of medial and patellofemoral compartment joint space. No visible acute fracture, dislocation or subluxation seen. No bony erosive changes. The soft tissues are normal. No joint effusion. RIGHT TIBIA AND FIBULA: There is loss of ankle mortise joint space with subchondral cystic changes. No visible acute fracture or dislocation. There is bimalleolar soft tissue swelling. RIGHT FOOT: There is no visible acute fracture or dislocation. No bony erosive changes. Small calcaneal heel enthesophyte seen. The soft tissues are normal. XR/XR knee RT 4V IMPRESSION: 1. No acute fracture or dislocation AP pelvis. Mild degenerative changes bilateral hip joints. 2. Mild degenerative changes medial and patellofemoral compartment right knee. No visible acute fracture, dislocation or joint effusion. 3. Bimalleolar soft tissue swelling but no visible acute fracture or dislocation right tibia and fibula. 4. Unremarkable right foot exam.
--- NOTE | ~2022-07-28 | XR_ITS ---
EXAMINATION: XR TIBIA/FIBULA, RIGHT XR PELVIS XR KNEE, RIGHT XR FOOT, RIGHT CLINICAL INDICATION: Fall. Pain. COMPARISON: None available. TECHNIQUE: AP pelvis, right knee 4 views, right tibia and fibula 2 views, and right foot 3 views. FINDINGS: AP PELVIS: There is loss of bilateral hip joint space with periarticular and subchondral cystic changes. No visible fracture or dislocation. SI joints are symmetrical. There is mild degenerative arthritic changes of pubic symphysis. There is lumbar spine hardware and epidural electrodes with hardware. RIGHT KNEE: There is mild loss of medial and patellofemoral compartment joint space. No visible acute fracture, dislocation or subluxation seen. No bony erosive changes. The soft tissues are normal. No joint effusion. RIGHT TIBIA AND FIBULA: There is loss of ankle mortise joint space with subchondral cystic changes. No visible acute fracture or dislocation. There is bimalleolar soft tissue swelling. RIGHT FOOT: There is no visible acute fracture or dislocation. No bony erosive changes. Small calcaneal heel enthesophyte seen. The soft tissues are normal. XR/XR pelvis min 3V IMPRESSION: 1. No acute fracture or dislocation AP pelvis. Mild degenerative changes bilateral hip joints. 2. Mild degenerative changes medial and patellofemoral compartment right knee. No visible acute fracture, dislocation or joint effusion. 3. Bimalleolar soft tissue swelling but no visible acute fracture or dislocation right tibia and fibula. 4. Unremarkable right foot exam.
--- NOTE | ~2022-07-28 | XR_ITS ---
EXAMINATION: XR TIBIA/FIBULA, RIGHT XR PELVIS XR KNEE, RIGHT XR FOOT, RIGHT CLINICAL INDICATION: Fall. Pain. COMPARISON: None available. TECHNIQUE: AP pelvis, right knee 4 views, right tibia and fibula 2 views, and right foot 3 views. FINDINGS: AP PELVIS: There is loss of bilateral hip joint space with periarticular and subchondral cystic changes. No visible fracture or dislocation. SI joints are symmetrical. There is mild degenerative arthritic changes of pubic symphysis. There is lumbar spine hardware and epidural electrodes with hardware. RIGHT KNEE: There is mild loss of medial and patellofemoral compartment joint space. No visible acute fracture, dislocation or subluxation seen. No bony erosive changes. The soft tissues are normal. No joint effusion. RIGHT TIBIA AND FIBULA: There is loss of ankle mortise joint space with subchondral cystic changes. No visible acute fracture or dislocation. There is bimalleolar soft tissue swelling. RIGHT FOOT: There is no visible acute fracture or dislocation. No bony erosive changes. Small calcaneal heel enthesophyte seen. The soft tissues are normal. XR/XR foot RT min 3V IMPRESSION: 1. No acute fracture or dislocation AP pelvis. Mild degenerative changes bilateral hip joints. 2. Mild degenerative changes medial and patellofemoral compartment right knee. No visible acute fracture, dislocation or joint effusion. 3. Bimalleolar soft tissue swelling but no visible acute fracture or dislocation right tibia and fibula. 4. Unremarkable right foot exam.
--- NOTE | 2022-07-28 13:54 | ED_ITS ---
HPI - General Adult General Chief complaint: Fall <SEBASTIAN Pedersen Last Filed: 07/28/22 13:59> Stated complaint: r leg inj fell <SEBASTIAN Pedersen - Last Filed: 07/28/22 13:59> Time Seen by Provider: 07/28/22 14:00 <SEBASTIAN Pedersen - Last Filed: 07/28/22 13:59> Source: patient <SEBASTIAN Villeda Last Filed: 07/28/22 18:16> Mode of arrival: ambulatory <SEBASTIAN Villeda Last Filed: 07/28/22 18:16> Limitations: no limitations <SEBASTIAN Villeda Last Filed: 07/28/22 18:16> History of Present Illness HPI narrative: Patient is a 66 year old assigned female at with a history of osteoarthritis presenting to the emergency department today with right ankle pain. Patient states that she fell 2 days ago and has been having right lower leg and ankle pain. Patient denies any dizziness, lightheadedness, abdominal pain, nausea, vomiting, fever, chills, blurry vision, double vision, loss of vision, chest pain, difficulty breathing, shortness of breath, back pain, night sweats, pain with urination, increased urinary frequency, increased urinary urgency, blood in her urine or stool, syncope or a near syncopal episode, bowel incontinence, bladder incontinence, bowel retention, bladder retention, or any other complaints at this time. <SEBASTIAN Villeda Last Filed: 07/28/22 18:16> Onset (ago): day(s) (2) <SEBASTIAN Villeda Last Filed: 07/28/22 18:16> Location: right and lower extremity <SEBASTIAN Villeda Last Filed: 07/28/22 18:16> Radiation: non-radiation <SEBASTIAN Villeda Last Filed: 07/28/22 18:16> Severity: mild <SEBASTIAN Villeda Last Filed: 07/28/22 18:16> Severity scale (1-10): 2 <SEBASTIAN Villeda Last Filed: 07/28/22 18:16> Quality: dull <SEBASTIAN Villeda Last Filed: 07/28/22 18:16> Pain Consistency: constant <SEBASTIAN Villeda - Last Filed: 07/28/22 18:16> Relieving factors: none <SEBASTIAN Villeda - Last Filed: 07/28/22 18:16> Exacerbating factors: none <SEBASTIAN Villeda - Last Filed: 07/28/22 18:16> Associated symptoms: denies other symptoms <SEBASTIAN Villeda - Last Filed: 07/28/22 18:16> Treatments prior to arrival: none <SEBASTIAN Villeda - Last Filed: 07/28/22 18:16> Related Data Home medications: Home Medications Medication Instructions Recorded Confirmed baclofen 10 mg tablet 10 mg PO BID 04/29/20 06/06/22 fluticasone propionate 230 2 puff inhalation BID 04/29/20 06/06/22 mcg-salmeterol 21 mcg/actuation HFA inhaler (Advair HFA) ibuprofen 800 mg tablet 800 mg PO TID PRN Pain 04/29/20 06/06/22 multivitamin (Daily Multi-Vitamin 1 tab PO DAILY 04/29/20 06/06/22 tablet) thiamine HCl (vitamin B1) 100 mg 100 mg PO DAILY 04/29/20 06/06/22 tablet albuterol sulfate 90 mcg/actuation 2 puff inhalation Q6H PRN wheezing 11/16/20 06/06/22 aerosol inhaler (Ventolin HFA) atorvastatin 20 mg tablet 20 mg PO BEDTIME 11/16/20 06/06/22 hydroxyzine HCl 10 mg tablet 1 tab PO BID 11/16/20 06/06/22 hydroxyzine HCl 25 mg tablet 1 tab PO QPM 11/16/20 06/06/22 naproxen 500 mg tablet 500 mg PO BID 11/16/20 06/06/22 B-complex with vitamin C 1 tab PO DAILY 03/10/22 06/06/22 acetaminophen 500 mg tablet (Pain 500 mg PO Q4H PRN pain 03/10/22 06/06/22 Relief (acetaminophen)) cetirizine 10 mg tablet 10 mg PO DAILY 03/10/22 06/06/22 cholecalciferol (vitamin D3) 25 25 mcg PO DAILY 03/10/22 06/06/22 mcg (1,000 unit) tablet cyanocobalamin (vitamin B-12) 1,000 mcg PO DAILY 03/10/22 06/06/22 1,000 mcg tablet uoqnsraldurt-jtwnhxyd-hbtl 1 tab PO DAILY 03/10/22 06/06/22 fumarate 7.5 mg-folic acid 400 mcg tablet polyethylene glycol 3350 17 gram 17 g PO BID PRN constipation 03/10/22 06/06/22 oral powder packet nystatin 100,000 unit/gram topical 1 appl topical DAILY PRN 05/18/22 06/06/22 powder semaglutide 2 mg/dose (8 mg/3 mL) mg subcut 06/06/22 06/06/22 subcutaneous pen injector (Ozempic) gabapentin 300 mg capsule mg PO 07/04/22 Previous Rx's Medication Instructions Recorded naloxone 4 mg/actuation nasal 4 mg intranasal Q2M PRN opioid 05/15/20 spray (Narcan) overdose #2 ea cefadroxil 500 mg capsule 1,000 mg PO Q8H 13 days #78 caps 02/25/21 <SEBASTIAN Pedersen Last Filed: 07/28/22 13:59> Allergies/adverse reactions: Allergies Allergy/AdvReac Type Severity Reaction Status Date / Time Sulfa (Sulfonamide Allergy Intermediate SWELLING Verified 07/28/22 13:57 Antibiotics) metformin AdvReac Intermediate diarrhea Verified 07/28/22 13:57 <SEBASTIAN Pedersen - Last Filed: 07/28/22 13:59> Review of Systems Constitutional: Constitutional: Reports no additional constitutional complaints, Denies chills, Denies fever(s) and Denies night sweats <SEBASTIAN Villeda Last Filed: 07/28/22 18:16> Eyes: Eyes: Reports no additional eye complaints, Denies blurry vision, Denies change in vision, Denies diplopia, Denies eye discharge, Denies loss of vision and Denies eye pain <SEBASTIAN Villeda - Last Filed: 07/28/22 18:16> ENT: Denies dizziness <SEBASTIAN Villeda Last Filed: 07/28/22 18:16> Cardiovascular: Cardiovascular: Reports no additional cardiovascular complain ts, Denies chest pain, Denies lightheadedness, Denies Loss of Consciousness and Denies dyspnea <SEBASTIAN Villeda - Last Filed: 07/28/22 18:16> Respiratory: Respiratory: Reports no additional respiratory complaints and Denies dyspnea <SEBASTIAN Villeda - Last Filed: 07/28/22 18:16> Gastrointestinal: Gastrointestinal: Reports no additional gastrointestinal complaints, Denies abdominal pain, Denies melena, Denies hematochezia, Denies change in bowel habits and Denies change in stool character <SEBASTIAN Villeda - Last Filed: 07/28/22 18:16> Genitourinary: Genitourinary: Denies hematuria, Denies urinary frequency, Denies dysuria, Denies urinary incontinence, Denies urinary hesitancy and Denies urinary urgency <SEBASTIAN Villeda - Last Filed: 07/28/22 18:16> Musculoskeletal: Musculoskeletal: Reports no additional musculoskeletal complaints, Denies numbness and Denies tingling <SEBASTIAN Villeda - Last Filed: 07/28/22 18:16> Comments: right lower leg and ankle pain <SEBASTIAN Villeda Last Filed: 07/28/22 18:16> Neurologic: Denies dizziness, Denies loss of vision, Denies numbness and Denies tingling <SEBASTIAN Villeda Last Filed: 07/28/22 18:16> Psychiatric: Psychiatric: Reports no additional psychiatric complaints <SEBASTIAN Villeda Last Filed: 07/28/22 18:16> Endocrine: Endocrine: Reports no additional endocrine complaints <SEBASTIAN Villeda - Last Filed: 07/28/22 18:16> Hematologic/Lymphatic: Hematologic/Lymphatic: Reports no additional hematol ogic/lymphatic complaints <SEBASTIAN Villeda - Last Filed: 07/28/22 18:16> Allergic/Immunologic: Allergic/Immunologic: Reports no additional allergic/immunologic complaints <SEBASTIAN Villeda Last Filed: 07/28/22 18:16> PMFSH Past Medical History Attestation statement: The following information was validated with the patient. <SEBASTIAN Villeda Last Filed: 07/28/22 18:16> Source: old records reviewed and nursing notes reviewed <SEBASTIAN Villeda Last Filed: 07/28/22 18:16> Medical History: Medical History Ambulates with cane Ankle pain, right Arthritis of left hip COPD (chronic obstructive pulmonary disease) COVID-19 vaccine series completed Elevated cholesterol Full dentures IDDM (insulin dependent diabetes mellitus) Liver cyst Low back pain <SEBASTIAN Pedersen - Last Filed: 07/28/22 13:59> Surgical History: Surgical History History of back surgery Hx of carpal tunnel repair Hx of colonoscopy Status post insertion of nerve stimulator <SEBASTIAN Pedersen - Last Filed: 07/28/22 13:59> Social History Social History: Social History Patient Tobacco Use Status: Former Tobacco user Quit Date: 2008 Tobacco use type: Cigarette Advance Directives: No <SEBASTIAN Pedersen - Last Filed: 07/28/22 13:59> Physical Exam ED Vital Signs: Vital Signs - 24 hr 07/28/22 13:56 07/28/22 17:52 Temperature 97.6 F 97.9 F Pulse Rate 75 68 Respiratory Rate 16 20 Blood Pressure 151/85 H 148/86 H Pulse Oximetry 98 98 Oxygen Delivery Method Room Air Room Air BMI result Body Mass Index 31.2 <SEBASTIAN Pedersen - Last Filed: 07/28/22 13:59> Vital Signs - 24 hr 07/28/22 13:56 07/28/22 17:52 Temperature 97.6 F 97.9 F Pulse Rate 75 68 Respiratory Rate 16 20 Blood Pressure 151/85 H 148/86 H Pulse Oximetry 98 98 Oxygen Delivery Method Room Air Room Air BMI result Body Mass Index 31.2 <SEBASTIAN Villeda - Last Filed: 07/28/22 18:16> Const General: cooperative, no acute distress, alert and awake <SEBASTIAN Villeda - Last Filed: 07/28/22 18:16> Nutritional Appearance: well nourished <SEBASTIAN Villeda - Last Filed: 07/28/22 18:16> Orientation/consciousness: patient oriented x3 <SEBASTIAN Villeda - Last Filed: 07/28/22 18:16> Limitations: no limitations <Nevaehdustin Ribeiroashley [facility] Last Filed: 07/28/22 18:16> HENMT Head: Yes normal to inspection and Yes atraumatic <Nevaeh Marizol [facility] Last Filed: 07/28/22 18:16> Ears: hearing grossly normal bilaterally and external ears normal <Nevaeh Fontana, [facility] Last Filed: 07/28/22 18:16> General nose exam: Normal external nose present, no nasal discharge noted and no epistaxis <Nevaeh Fontana [facility] Last Filed: 07/28/22 18:16> Face and sinus: Yes normal facial exam, No abrasion and No laceration <Nevaeh Fontana [facility] Last Filed: 07/28/22 18:16> Mouth: Normal oral and palatal mucosa present, no drooling and no muffled voice <Nevaeh Fontana [facility] Last Filed: 07/28/22 18:16> Eyes General: appearance normal, both eyes and all related structures <Nevaeh Fontana [facility] Last Filed: 07/28/22 18:16> Periorbital: periorbital findings normal <Nevaeh Fontana [facility] Last Filed: 07/28/22 18:16> Eyelids: Yes eyelids normal <Nevaeh Fontana [facility] Last Filed: 07/28/22 18:16> Conjunctivae: conjunctivae normal <Nevaeh Fontana [facility] Last Filed: 07/28/22 18:16> Pupils: Equal, round and reactive pupils present <Nevaeh Fontana [facility] Last Filed: 07/28/22 18:16> EOM: EOMs intact bilaterally <Nevaeh Fontana [facility] Last Filed: 07/28/22 18:1 6> Neck Neck: Yes normal visual inspection, Yes full ROM and Yes no lymphadenopathy <Nevaeh Fontana [facility] Last Filed: 07/28/22 18:16> Chest Chest palpation & inspection: normal inspection of the chest <Nevaeh Fontana [facility] Last Filed: 07/28/22 18:16> Resp Effort & Inspection: normal respiratory effort and able to speak in complete sentences <Nevaeh Fontana MS - Last Filed: 07/28/22 18:16> GI Inspection: Yes normal to inspection <Nevaeh SEBASTIAN Fontana - Last Filed: 07/28/22 18:16> Neuro General: patient oriented x3 and moves all extremities <Nevaeh SEBASTIAN Fontana - Last Filed: 07/28/22 18:16> Cranial nerves: Yes Equal, round and reactive pupils present <Nevaeh RibeiroSEBASTIAN ramirez - Last Filed: 07/28/22 18:16> Cognition (Neuro): normal cognition <SEBASTIAN Villeda - Last Filed: 07/28/22 18:16> Motor exam (neuro): 5/5 motor strength present throughout <Nevaehdustin Ribeiroashley PA - Last Filed: 07/28/22 18:16> Sensory Exam: Normal double simultaneous stimulation for sensation <SEBASTIAN Villeda - Last Filed: 07/28/22 18:16> Coordination: fjoobn-np-mxbg test normal <SEBASTIAN Villeda - Last Filed: 07/28/22 18:16> Extrem Other: minimal bruising present to the lateral right lower leg, ankle, and foot <SEBASTIAN Villeda - Last Filed: 07/28/22 18:16> General: Yes full ROM and Yes capillary refill normal <Nevaehdustin Ribeiroashley PA - Last Filed: 07/28/22 18:16> Psych Appearance: grossly normal <SEBASTIAN Villeda - Last Filed: 07/28/22 18:16> Mental Status: mental status grossly normal <SEBASTIAN Villeda - Last Filed: 07/28/22 18:16> Affect: normal affect <SEBASTIAN Villeda - Last Filed: 07/28/22 18:16> Attitude: cooperative <Nevaeh Fontana PA - Last Filed: 07/28/22 18:16> Thought process: Normal thought process present <SEBASTIAN Villeda - Last Filed: 07/28/22 18:16> Thought content: Normal thought content present <SEBASTIAN Villeda - Last Filed: 07/28/22 18:16> Insight: Good insight present (Psych) <SEBASTIAN Villeda - Last Filed: 07/28/22 18:16> Course Course Course Narrative: 66 year old female with PMH of sacroilitis and bilateral hip joint arthritis presents to the ED with R leg and foot pain s/p fall when walking and tripped over her own feet. Patient additionally reports she fell outside 3 days ago as well. Patient denies headstrike chest or abdomen trauma. Patient reports the leg and foot began bruising almost immediately. Patient is not on blood thinners. PE: Ecchymoses to lateral leg and foot Plan: Imaging <SEBASTIAN Pedersen - Last Filed: 07/28/22 13:59> Procedures Orthopedic Splinting/Casting Injury #1: Side: right <SEBASTIAN Villeda Last Filed: 07/28/22 18:16> Lower Extremity Injury Location: lower leg, ankle and foot <SEBASTIAN Villeda Last Filed: 07/28/22 18:16> Lower Extremity Immobilizer: Sanjay wrap <SEBASTIAN Villeda Last Filed: 07/28/22 18:16> Medical Decision Making Medical Decision Making MDM Narrative: Patient is a 66 year old assigned female at with a history of osteoarthritis presenting to the emergency department today with right lower leg and ankle pain. Patient's physical exam showed minimal bruising to the lateral aspect of the right lower leg, right ankle, and right foot. Patient's ROM and PMS was in tact to the right lower extremity. Patient's right tibia/fibila. right pelvis, right knee, and right foot x-rays showed no acute process. I explained my physical exam findings as well as all test results to the patient. I answered all questions asked by the patient. Patient's ankle was sanjay wrapped, without incident. Patient's ROM and PMS was intact prior to and after sanjay wrap placement. I stressed the importance of the patient taking her medication as prescribed. I stressed the importance of the patient following up with her primary care provider and an orthopedic provider. I stressed the importance of the patient returning to the emergency department immediately if her symptoms were to worsen or if she were to develop any dizziness, shortness of breath, difficulty breathing, chest pain, blurry vision, loss of vision, nausea, vomiting, abdominal pain, fever, chills, back pain, or any other complaints. Patient verbalized agreement and understanding with this treatment plan and discharge. <SEBASTIAN Villeda Last Filed: 07/28/22 18:16> Differential Diagnosis Differential Diagnoses: The differential diagnosis associated with the presentation includes <SEBASTIAN Villeda Last Filed: 07/28/22 18:16> right ankle injury, right ankle sprain, right ankle strain <SEBASTIAN Villeda - Last Filed: 07/28/22 18:16> Independent Interpretation I performed an independent interpretation of an: Plain X-Ray <SEBASTIAN Villeda - Last Filed: 07/28/22 18:16> Interpretation: My interpretation is in agreement with the radiologist's impression of these imaging studies. EXAMINATION: XR TIBIA/FIBULA, RIGHT XR PELVIS XR KNEE, RIGHT XR FOOT, RIGHT CLINICAL INDICATION: Fall. Pain. COMPARISON: None available. TECHNIQUE: AP pelvis, right knee 4 views, right tibia and fibula 2 views, and right foot 3 views. FINDINGS: AP PELVIS: There is loss of bilateral hip joint space with periarticular and subchondral cystic changes. No visible fracture or dislocation. SI joints are symmetrical. There is mild degenerative arthritic changes of pubic symphysis. There is lumbar spine hardware and epidural electrodes with hardware. RIGHT KNEE: There is mild loss of medial and patellofemoral compartment joint space. No visible acute fracture, dislocation or subluxation seen. No bony erosive changes. The soft tissues are normal. No joint effusion. RIGHT TIBIA AND FIBULA: There is loss of ankle mortise joint space with subchondral cystic changes. No visible acute fracture or dislocation. There is bimalleolar soft tissue swelling. RIGHT FOOT: There is no visible acute fracture or dislocation. No bony erosive changes. Small calcaneal heel enthesophyte seen. The soft tissues are normal. IMPRESSION: 1. No acute fracture or dislocation AP pelvis. Mild degenerative changes bilateral hip joints. 2. Mild degenerative changes medial and patellofemoral compartment right knee. No visible acute fracture, dislocation or joint effusion. 3. Bimalleolar soft tissue swelling but no visible acute fracture or dislocation right tibia and fibula. 4. Unremarkable right foot exam. Dictated and signed by: Saritha Buckley <SEBASTIAN Villeda - Last Filed: 07/28/22 18:16> Discharge Plan Discharge Clinical Impression: Ankle sprain <SEBASTIAN Pedersen - Last Filed: 07/28/22 13:59> Patient Disposition: Home, Self-Care <SEBASTIAN Pedersen - Last Filed: 07/28/22 13:59> Instructions: Ankle Sprain (ED) <SEBASTIAN Pedersen - Last Filed: 07/28/22 13:59> Additional Instructions: Follow up with your primary care provider and an orthopedic provider. Return to the emergency department immediately if your symptoms worsen or if you develop any dizziness, shortness of breath, difficulty breathing, chest pain, blurry vision, loss of vision, nausea, vomiting, abdominal pain, fever, chills, back pain, or any other complaints. <SEBASTIAN Pedersen - Last Filed: 07/28/22 13:59> Prescriptions: No Action cefadroxil 500 mg capsule 1,000 mg PO Q8H 13 Days Qty: 78 0RF Rx Instructions: Take OTC probiotics 25 billion cultures in between the doses of the antibiotics with food atorvastatin 20 mg Tablet 20 mg PO BEDTIME hydroxyzine HCl 25 mg tablet 1 tab PO QPM albuterol sulfate [Ventolin HFA] 90 mcg/actuation HFA aerosol inhaler 2 puff inhalation Q6H PRN (Reason: wheezing) hydroxyzine HCl 10 mg tablet 1 tab PO BID naproxen 500 mg Tablet 500 mg PO BID thiamine HCl (vitamin B1) 100 mg tablet 100 mg PO DAILY baclofen 10 mg tablet 10 mg PO BID multivitamin [Daily Multi-Vitamin] Tablet 1 tab PO DAILY ibuprofen 800 mg tablet 800 mg PO TID PRN (Reason: Pain) Advair HFA 230-21 mcg/actuation HFA aerosol inhaler 2 puff inhalation BID Narcan 4 mg/actuation spray,non-aerosol 4 mg intranasal Q2M PRN (Reason: opioid overdose) Qty: 2 0RF Rx Instructions: spray 1 dose into ONE nostril; alternate nostrils w each dose until help arrives nystatin 100,000 unit/gram powder 1 appl topical DAILY PRN Ozempic 2 mg/dose (8 mg/3 mL) pen injector subcut ahonuchb-udn-lwvi fum-folic ac 7.5 mg iron-400 mcg tablet 1 tab PO DAILY acetaminophen [Pain Relief (acetaminophen)] 500 mg tablet 500 mg PO Q4H PRN (Reason: pain) B-complex with vitamin C Tablet 1 tab PO DAILY cyanocobalamin (vitamin B-12) 1,000 mcg tablet 1,000 mcg PO DAILY cholecalciferol (vitamin D3) 25 mcg (1,000 unit) tablet 25 mcg PO DAILY polyethylene glycol 3350 17 gram powder in packet 17 g PO BID PRN (Reason: constipation) cetirizine 10 mg tablet 10 mg PO DAILY gabapentin 300 mg capsule PO <SEBASTIAN Pedersen - Last Filed: 07/28/22 13:59> Referrals: [facility] [Provider Group] (Call to establish and follow up with an orthopedic provider. ) Ayan Clayton III, MD [Primary Care Provider] - <SEBASTIAN Pedersen - Last Filed: 07/28/22 13:59> Interventions: ED Discharge Assessment Last Done: 07/28/22 18:02 <SEBASTIAN Pedersen - Last Filed: 07/28/22 13:59> Discharge Date/Time: 07/28/22 18:02 <SEBASTIAN Pedersen - Last Filed: 07/28/22 13:59> Print Language: Portuguese <SEBASTIAN Pedersen - Last Filed: 07/28/22 13:59>
[2022-07-28 13:56] VITALS: BP 151/85; PULSE 75; RESP 16; TEMP 36.4; O2SAT 98; BMI 31.2
[2022-07-28 17:52] VITALS: BP 148/86; PULSE 68; RESP 20; TEMP 36.6; O2SAT 98
== END 2022-07-28 18:02 | disposition home or self-care (01) ==
PROVIDERS: Emergency Provider Emergency Medicine; PCP Internal Medicine
DX: S93.401A Sprain of unspecified ligament of right ankle, initial encounter (principal); W01.0XXA Fall on same level from slipping, tripping and stumbling without subsequent striking against object, initial encounter; E11.9 Type 2 diabetes mellitus without complications; E78.5 Hyperlipidemia, unspecified; M16.0 Bilateral primary osteoarthritis of hip; Z79.899 Other long term (current) drug therapy; Z79.02 Long term (current) use of antithrombotics/antiplatelets; Z79.4 Long term (current) use of insulin; Z87.891 Personal history of nicotine dependence; Y93.01 Activity, walking, marching and hiking; Y92.480 Sidewalk as the place of occurrence of the external cause; Y99.9 Unspecified external cause status
CPT/HCPCS: 72190; 73564; 73590; 73630; 99282; 99283

== ENCOUNTER 2023-02-27 13:19 | Outpatient (AMB) | payer OTHER, MEDICAID, SELFPAY ==
--- NOTE | 2023-02-27 13:22 | A.OFFVIS_ITS ---
Intake Vital Signs 02/27/23 13:23 Height 5 ft Weight 160 lb BMI 31.2 Intake Visit Reasons: OV - Left Hip OA - Req Injection Intake Note: Yanet is a 67 year old female who presents today for a follow up of her left hip, her last injections were done bilaterally in SIJ with pain mgmt on 05/24/22. She is looking to repeat this injection. Allergies Sulfa (Sulfonamide Antibiotics) Allergy (Intermediate, Verified 07/28/22 13:57) SWELLING metformin Adverse Reaction (Intermediate, Verified 07/28/22 13:57) diarrhea HPI OV - Left Hip OA - Req Injection HPI Details Yanet is a 67 year old woman with bilateral hip OA, who complains of worsening left hip pain. She reports pain in her groin, worse with weight-bearing, standing from a seated position, or using stairs. She says she is up frequently at night with pain radiating from the lateral aspect of her hip and into her groin. She says this is worse when lying on her side or trying to turn. She has been following with Pain Management for LBP & lumbar spondylosis. She reports having some numbness in the lateral aspect of her thighs. She reports very short relief from hip arthrograms done in the past, and only ~6 weeks of pain relief from bilateral SI joint injections done by Pain Management on 05/24/22. She has a Hx of two back surgeries, which she says was not helpful in relieving her pain, and she currently has a SCS implanted. She is limited and cannot walk without severe left hip pain. She feels the quality of her life is diminished. She feels that this pain has persisted for years and was not alleviated with multiple spinal interventions. She wants to sleep and has been recovering from her right ankle fusion. She is doing well with respect to that but still recovering [facility] Medical History Ambulates with cane Ankle pain, right Arthritis of left hip COPD (chronic obstructive pulmonary disease) COVID-19 vaccine series completed Elevated cholesterol Full dentures IDDM (insulin dependent diabetes mellitus) Liver cyst Low back pain Surgical History History of back surgery Hx of carpal tunnel repair Hx of colonoscopy Status post insertion of nerve stimulator Social History Patient Tobacco Use Status: Former Tobacco user Quit Date: 2008 Tobacco use type: Cigarette Review of Systems Const All systems reviewed & are unremarkable except as noted in HPI and below Physical Exam Vital Signs: BMI result Body Mass Index 31.2 Const General: no acute distress, alert and awake Orientation/consciousness: patient oriented x3 HEENT Head: Yes normocephalic and Yes atraumatic Eyes EOM: EOMs intact bilaterally Resp Effort & Inspection: normal respiratory effort and able to speak in complete sentences Cardio Jugular venous distension: no JVD Skin General skin exam: turgor normal Rashes: no rashes Neuro General: patient oriented x3 Extrem Other: no internal rotation of the left hip + impingement with minimal adduction Psych Appearance: grossly normal Affect: normal affect Attitude: cooperative Results Reviewed Results Reviewed: I personally reviewed relevant radiographs. [id number] degenerative changes of the bilateral hip joints. No visible acute fracture or dislocation is seen. The left hip joint arthritis has progressed. ? Mild sclerosis of the bilateral SI joints suspicious for sacroiliitis. Assessment & Plan Assessment & Plan (1) Osteoarthritis of left hip: Code(s): M16.12 - Unilateral primary osteoarthritis, left hip Qualifiers: Osteoarthritis type: primary Qualified Code(s): M16.12 - Unilateral primary osteoarthritis, left hip Plan: OA of the left hip that is severe. SHe is trying to recover from ankle fusion. I ordered an injection of left hip and recommend TA in 6 months Orders: Referrals Pain Management Referral M16.12 - Unilateral primary osteoarthritis, left hip Coding Level of Care Code Est Pt Level 4 (98187) Diagnoses Primary osteoarthritis of left hip M16.12 Osteoarthritis type: primary
[2023-02-27 13:23] VITALS: BMI 31.2
== END 2023-02-27 14:10 | disposition home or self-care (01) ==
PROVIDERS: PCP Internal Medicine; Visit Provider Orthopaedic Surgery
DX: M16.12 Unilateral primary osteoarthritis, left hip (principal)
CPT/HCPCS: 99213

== ENCOUNTER → 2023-02-27 13:19 | Outpatient (BNVA) | payer OTHER, MEDICAID, SELFPAY | PROVIDERS: PCP Internal Medicine; Visit Provider Orthopaedic Surgery ==

== ENCOUNTER 2023-03-28 06:08 | Outpatient (REF) | payer OTHER, SELFPAY ==
--- NOTE | ~2023-03-28 | FL_ITS ---
EXAMINATION: XR FLUOROSCOPY WITH IMAGES CLINICAL INFORMATION: Bilateral hip injections. COMPARISON: None available. TECHNIQUE: Fluoroscopy Supervised By: Dr. Rell Leavitt. Fluoroscopy Time: 0.3 minutes. Cumulative Dose: 8.48 mGy. DAP: 1.67 Gycm2. Images: 2. FINDINGS: Images demonstrate needle placement and contrast injection of the right hip joint FL/FL guidance in treatment room IMPRESSION: Fluoroscopy guidance for right hip injection.
== END 2023-03-28 06:09 | disposition home or self-care (01) ==
LOC: CF 06:08
PROVIDERS: Visit Provider Anesthesiology
DX: M16.0 Bilateral primary osteoarthritis of hip (principal)
CPT/HCPCS: 20610; J3301

== ENCOUNTER 2023-03-28 13:53 | Outpatient (AMB) | payer OTHER, SELFPAY ==
[2023-03-28 13:59] VITALS: BP 134/82; PULSE 93; RESP 16; O2SAT 98; BMI 31.2
--- NOTE | 2023-03-28 13:59 | MHC.OFFVIS ---
Intake Vital Signs 03/28/23 13:59 03/28/23 14:48 Height 5 ft 5 ft Weight 160 lb 160 lb BMI 31.2 31.2 BP 134/82 128/80 Blood Pressure Location Lt brachial Lt brachial Position Sitting Sitting Respiration 16 18 Pulse 93 88 Pulse Source Pulse Oximeter Pulse Oximeter Pulse Oximetry (%) 98 96 Oxygen Delivery Method Room Air Room Air Comment Pre-Op Post-Op Intake Visit Reasons: BILATERAL HIP INJECTIONS Allergies Sulfa (Sulfonamide Antibiotics) Allergy (Intermediate, Verified 07/28/22 13:57) SWELLING metformin Adverse Reaction (Intermediate, Verified 07/28/22 13:57) diarrhea [facility] Medical History Ambulates with cane Ankle pain, right Arthritis of left hip COPD (chronic obstructive pulmonary disease) COVID-19 vaccine series completed Elevated cholesterol Full dentures IDDM (insulin dependent diabetes mellitus) Liver cyst Low back pain Surgical History History of back surgery Hx of carpal tunnel repair Hx of colonoscopy Status post insertion of nerve stimulator Social History Patient Tobacco Use Status: Former Tobacco user Quit Date: 2008 Tobacco use type: Cigarette Physical Exam Vital Signs: Last Vital Signs Pulse 93 03/28/23 13:59 Resp 16 03/28/23 13:59 BP 134/82 03/28/23 13:59 Pulse Ox 98 03/28/23 13:59 Oxygen Delivery Method Room Air 03/28/23 13:59 BMI result Body Mass Index 31.2 Assessment & Plan Assessment & Plan (1) Osteoarthritis of left hip: Code(s): M16.12 - Unilateral primary osteoarthritis, left hip Qualifiers: Osteoarthritis type: primary Qualified Code(s): M16.12 - Unilateral primary osteoarthritis, left hip Plan: Bilateral hip steroid injection. Informed consent was explained to the patient. All questions were explained and answered. The patient was taken inside of the operating room where she was positioned right lateral decubitus on operating table.. Time-out was performed delineating patient's name and date of , correct site, side, the nature of the procedure, patient's allergy, preoperative antibiotic if needed, need for VT prophylaxis.. All operating room staff was participating in OR time-out procedure. Left hip area of the patient was prepped with ChloraPrep and draped with sterile towels. C-arm was brought over the operating field and picture of left and right lateral views of the bilateral hip joints were delineated on the screen. The smaller joint silhouette was chosen as the target. Projection of the left trochanter to the skin was chosen as the initial needle insertion point. After that the skin and subcutaneous tissues was anesthetized with 2% lidocaine 2.5 mL. 22 gauge 5 in long needle was inserted through the skin and started to advance to the joint space under intermittent lateral and anterior posterior views. When needle entered the capsule of the joint small amount of the contrast was injected delineating intra-articular space. After that treatment solution containing 5 mls. of ropivacaine mixed with kenalog 20 mg was injected into the joint. The needle was withdrawn sterile dressing was applied. After that the patient was turned on the operating table with the right lateral decubital position and the procedure was repeated on the right hip joint in the same very fashion.The patient tolerated procedure well she was taken outside the Operating room to the recovery room where she recovered uneventfully. Orders: Orders FL guidance in treatment room Today M16.12 - Unilateral primary osteoarthritis, left hip Coding Level of Care Code Procedure Only Diagnoses Primary osteoarthritis of left hip M16.12 Osteoarthritis type: primary
[2023-03-28 14:48] VITALS: BP 128/80; PULSE 88; RESP 18; O2SAT 96; BMI 31.2
== END 2023-03-28 14:47 | disposition home or self-care (01) ==
LOC: HO.PMCPRC 13:53
PROVIDERS: PCP Internal Medicine; Visit Provider Anesthesiology
DX: M16.12 Unilateral primary osteoarthritis, left hip (principal)
CPT/HCPCS: 20610; 77002

== ENCOUNTER 2023-04-29 10:47 | Emergency (ER) | payer OTHER, SELFPAY ==
--- NOTE | ~2023-04-29 | XR_ITS ---
EXAMINATION: XR KNEE, RIGHT CLINICAL INFORMATION: Pain and swelling COMPARISON: Previous x-ray July 2022 TECHNIQUE: Four views of the right knee. FINDINGS: Bone alignment is normal. No fracture or dislocation. Osteopenia. Mild medial femoral tibial and patellar femoral joint space narrowing. No joint effusion. Soft tissue swelling adjacent to the medial knee XR/XR knee RT 4V IMPRESSION: Soft tissue swelling adjacent to the medial knee. No fracture or dislocation. Osteopenia. Mild degenerative changes.
--- NOTE | ~2023-04-29 | XR_ITS ---
EXAMINATION: XR HIP, RIGHT CLINICAL INFORMATION: Pain COMPARISON: None available. TECHNIQUE: Two views of the right hip. One view of the pelvis FINDINGS: There is arthritis of the right hip joint with joint space narrowing, osteophyte of chondral cyst formation. No fracture or dislocation. There is also severe arthritis of the left hip joint narrowing and osteophyte formation and subchondral cyst and irregularity or flattening of the left femoral head. Bones of the pelvis are unremarkable. There are postsurgical changes to the visualized lower lumbar spine. There is a battery projecting over the iliac bone and lead over the lower lumbar spinal canal. XR/XR hip RT w PEL1V IMPRESSION: Severe bilateral hip osteoarthritis, left greater than right.
--- NOTE | ~2023-04-29 | US_ITS ---
EXAMINATION: US VENOUS ULTRASOUND WITH DOPPLER LOWER EXTREMITY, RIGHT CLINICAL INFORMATION: Swelling COMPARISON: None available. TECHNIQUE: Ultrasound of the deep veins is performed from the hip to the calf with compression sonography and color and pulse Doppler assessment. Spectral analysis with color-flow imaging is performed. FINDINGS: There is normal venous compression and respiratory variation and augmented flow. The visualized common femoral vein, superficial femoral vein, profunda femoral vein, popliteal vein, and the trifurcation region shows no evidence of deep venous thrombosis. There is no significant popliteal fossa cyst. If the patient's symptoms persist, followup ultrasound in 5 days 7 days might be of value to exclude proximal propagation from a non-visualized calf vein. US/US venous duplex LE RT IMPRESSION: No DVT demonstrated in the right lower extremity.
[2023-04-29 10:59] VITALS: BP 147/91; PULSE 88; RESP 16; TEMP 36.8; O2SAT 94; BMI 28.0
--- NOTE | 2023-04-29 11:04 | ED_ITS ---
HPI - General Adult General Chief complaint: Extremity Injury, Lower Stated complaint: r knee pain Time Seen by Provider: 04/29/23 11:14 Source: patient, RN notes reviewed and old records reviewed Mode of arrival: ambulatory History of Present Illness HPI narrative: 67-year-old female with a past medical history of arthritis presenting to the ED complaining of atraumatic right knee and right hip pain x2 weeks. Admits at baseline ambulates with rolling walker. Denies known injury, trauma/fall, abdominal pain, urinary symptoms, numbness/tingling, calf pain. Related Data Home Medications Medication Instructions Recorded Confirmed baclofen 10 mg tablet 10 mg PO BID 04/29/20 06/06/22 fluticasone propionate 230 2 puff inhalation BID 04/29/20 06/06/22 mcg-salmeterol 21 mcg/actuation HFA inhaler (Advair HFA) ibuprofen 800 mg tablet 800 mg PO TID PRN Pain 04/29/20 06/06/22 multivitamin (Daily Multi-Vitamin 1 tab PO DAILY 04/29/20 06/06/22 tablet) thiamine HCl (vitamin B1) 100 mg 100 mg PO DAILY 04/29/20 06/06/22 tablet albuterol sulfate 90 mcg/actuation 2 puff inhalation Q6H PRN wheezing 11/16/20 06/06/22 aerosol inhaler (Ventolin HFA) atorvastatin 20 mg tablet 20 mg PO BEDTIME 11/16/20 06/06/22 hydroxyzine HCl 10 mg tablet 1 tab PO BID 11/16/20 06/06/22 hydroxyzine HCl 25 mg tablet 1 tab PO QPM 11/16/20 06/06/22 naproxen 500 mg tablet 500 mg PO BID 11/16/20 06/06/22 B-complex with vitamin C 1 tab PO DAILY 03/10/22 06/06/22 acetaminophen 500 mg tablet (Pain 500 mg PO Q4H PRN pain 03/10/22 06/06/22 Relief (acetaminophen)) cetirizine 10 mg tablet 10 mg PO DAILY 03/10/22 06/06/22 cholecalciferol (vitamin D3) 25 25 mcg PO DAILY 03/10/22 06/06/22 mcg (1,000 unit) tablet cyanocobalamin (vitamin B-12) 1,000 mcg PO DAILY 03/10/22 06/06/22 1,000 mcg tablet [id number]-mmbuqzsk-[id number] 1 tab PO DAILY 03/10/22 06/06/22 fumarate 7.5 mg-folic acid 400 mcg tablet polyethylene glycol 3350 17 gram 17 g PO BID PRN constipation 03/10/22 06/06/22 oral powder packet nystatin 100,000 unit/gram topical 1 appl topical DAILY PRN 05/18/22 06/06/22 powder semaglutide 2 mg/dose (8 mg/3 mL) mg subcut 06/06/22 06/06/22 subcutaneous pen injector (Ozempic) gabapentin 300 mg capsule mg PO 07/04/22 Previous Rx's Medication Instructions Recorded naloxone 4 mg/actuation nasal 4 mg intranasal Q2M PRN opioid 05/15/20 spray (Narcan) overdose #2 ea cefadroxil 500 mg capsule 1,000 mg (2 x 500 mg) PO Q8H 13 02/25/21 days #78 caps acetaminophen 500 mg tablet 500 mg PO Q6H PRN fever or pain 04/29/23 (Tylenol Extra Strength) #14 tabs diclofenac sodium 1 % topical gel 2 g topical QID PRN pain (scale 04/29/23 (Aleve (diclofenac)) score 1-3) #100 grams lidocaine 5 % topical patch 1 patch topical DAILY PRN pain #30 04/29/23 (Lidoderm) ea naproxen 500 mg tablet 500 mg PO BID PRN pain 10 days #20 04/29/23 tabs Allergies Allergy/AdvReac Type Severity Reaction Status Date / Time Sulfa (Sulfonamide Allergy Intermediate SWELLING Verified 04/29/23 11:07 Antibiotics) metformin AdvReac Intermediate diarrhea Verified 04/29/23 11:07 Review of Systems Review of Systems: Constitutional: No Fever, No Chills ENT/Mouth: No Ear Pain, No Nasal Congestion, No sore throat, No Rhinorrhea, No Swallowing Difficulty Cardiovascular: No Chest Pain, No SOB Respiratory: No Cough Gastrointestinal: No Nausea, No Vomiting, No Abdominal pain Musculoskeletal: + joint pain, No Myalgias, + Joint Swelling Skin: No Skin Lesions, No rash Neuro: No Weakness, No Numbness, No Paresthesias Yes all other systems are reviewed and are negative Constitutional: Constitutional: Reports as per [facility] Past Medical History Attestation statement: The following information was validated with the patient. Source: old records reviewed Medical History COVID-19 vaccine series completed Full dentures Arthritis of left hip Ankle pain, right Low back pain Liver cyst IDDM (insulin dependent diabetes mellitus) Ambulates with cane COPD (chronic obstructive pulmonary disease) Elevated cholesterol Surgical History Status post insertion of nerve stimulator Hx of colonoscopy Hx of carpal tunnel repair History of back surgery Social History Social History Patient Tobacco Use Status: Former Tobacco user Quit Date: 2008 Tobacco use type: Cigarette Advance Directives: Yes Advance Directives Information Provided: No Advance Directives on File: No Physical Exam ED Vital Signs: Vital Signs - 24 hr 04/29/23 10:59 Temperature 98.2 F Pulse Rate 88 Respiratory Rate 16 Blood Pressure 147/91 H Pulse Oximetry 94 Oxygen Delivery Method Room Air BMI result Body Mass Index 28.0 Const General: cooperative, healthy appearing and no acute distress Orientation/consciousness: patient oriented x3 Limitations: no limitations HENMT Head: Yes normal to inspection and Yes atraumatic Ears: hearing grossly normal bilaterally General nose exam: Normal external nose present Face and sinus: Yes normal facial exam Eyes General: appearance normal, both eyes and all related structures EOM: EOMs intact bilaterally Neck Neck: Yes normal visual inspection and Yes no meningeal signs Resp Effort & Inspection: normal respiratory effort and no respiratory distress Cardio Rate: regular rate Peripheral pulses: Peripheral pulses 2+ throughout GI Inspection: Yes normal to inspection Palpation (GI): Soft to palpation and nontender Skin Rashes: no rashes Wounds: no wounds Neuro General: patient oriented x3, tone normal and no meningeal signs Cranial nerves: Yes CN's II-XII intact bilaterally Gait exam (Neuro): Normal gait present Extrem Other: RLE with 1+ pitting edema. Right knee with mild swelling and diffuse tenderness to palpation. Limited full flexion secondary to pain. No erythema/warmth or crepitus. Pelvis stable. Right hip without noted deformity. Mildly tender to palpation. Pain elicited with external rotation. General: No calf tenderness Course Course Course Narrative: This is a rapid medical exam: Additional HPI, ROS, PE not included below will be deferred to primary provider. Patient is a 67-year-old female with history of osteoarthritis presenting to the ED with complaint of right knee pain and swelling for 2 weeks. Denies fall or other trauma. Difficulty getting up after sitting for long periods. Plan: x-ray 1423--US venous duplex LE RT IMPRESSION: No DVT demonstrated in the right lower extremity. XR hip RT w PEL1V IMPRESSION: Severe bilateral hip osteoarthritis, left greater than right. XR knee RT 4V IMPRESSION: Soft tissue swelling adjacent to the medial knee. No fracture or dislocation. Osteopenia. Mild degenerative changes. >> SANJAY wrap applied Results discussed with patient including worrisome signs and symptoms and strict return precautions, and when to return to the emergency department. They verbalized understanding and feel safe for discharge at this time. Medications Administered Discontinued Medications Generic Name Dose Route Start Last Admin Trade Name Freq PRN Reason Stop Dose Admin Acetaminophen 650 mg 04/29/23 12:15 04/29/23 12:42 Acetaminophen 325 Mg Tablet PO 04/29/23 12:16 650 mg ONCE ONE Administration Ketorolac Tromethamine 30 mg 04/29/23 14:25 04/29/23 14:42 Ketorolac Tromethamine 30 Mg/Ml Vial IM 04/29/23 14:26 30 mg ONCE ONE Administration Medical Decision Making Medical Decision Making MDM Narrative: 67-year-old female with a past medical history of arthritis presenting to the ED complaining of atraumatic right knee and right hip pain x2 weeks. On exam vital signs stable, NAD, nontoxic appearing physical exam as noted above. Concern for osteoarthritic flare vs strain vs DVT. Lower suspicion for fracture. No evidence of septic joint/arthritis. Unlikely intra-abdominal pathology Plan: X-ray, venous duplex ultrasound, pain control Please refer to course for remaining clinical decision making, interpretation of labs/imaging results, and discussions with consultants and/or family members. Differential Diagnosis Differential Diagnoses: The differential diagnosis associated with the pr esentation includes As above Independent Interpretation I performed an independent interpretation of an: Plain X-Ray and Ultrasound Radiology Impression Discussion of test interpretation with radiology: I have reviewed the radiologist's reading. External Record Review External record reviewed: Inpatient record, Office record, Outpatient record, Prior outpatient labs, Prior outpatient radiology, Primary care record and Outside ED record Tests considered The following testing was considered but not selected: As above Prescription Management I considered prescription management with: Pain Medication Chronic Conditions Patient?s care impacted by: Other Discharge Plan Discharge Clinical Impression: Knee swelling, Osteoarthritis Patient Disposition: Home, Self-Care Instructions: Osteoarthritis (DC), Swollen Knee Joint (ED) Additional Instructions: Your x-ray shows soft tissue swelling of her knee as severe osteoarthritis of her hips. Naproxen as an anti-inflammatory / pain medication, take with food Lidoderm patches are numbing patches, apply to painful area Diclofenac as topical anti-inflammatory/pain Medicine, apply to painful joints You need to follow-up with orthopedics Wear Sanjay wrap as needed In addition take Tylenol at home If symptoms persist or worsen, pain becomes unbearable, you developed urinary retention or incontinence, or weakness return to the ED Prescriptions: New acetaminophen [Tylenol Extra Strength] 500 mg tablet 500 mg PO Q6H PRN (Reason: fever or pain) Qty: 14 0RF lidocaine [Lidoderm] 5 % adhesive patch,medicated 1 patch topical DAILY MDD remove after 12 hours PRN (Reason: pain) Qty: 30 0RF Rx Instructions: leave on most painful area for up to 12 hrs naproxen 500 mg tablet 500 mg PO BID PRN (Reason: pain) 10 Days Qty: 20 0RF diclofenac sodium [Aleve (diclofenac)] 1 % gel 2 g topical QID PRN (Reason: pain (scale score 1-3)) Qty: 100 0RF Rx Instructions: apply to single elbow, wrist or hand; for hand includes palm/fingers/back of hand No Action cefadroxil 500 mg capsule 1,000 mg PO Q8H 13 Days Qty: 78 0RF Rx Instructions: Take OTC probiotics 25 billion cultures in between the doses of the antibiotics with food atorvastatin 20 mg Tablet 20 mg PO BEDTIME hydroxyzine HCl 25 mg tablet 1 tab PO QPM albuterol sulfate [Ventolin HFA] 90 mcg/actuation HFA aerosol inhaler 2 puff inhalation Q6H PRN (Reason: wheezing) hydroxyzine HCl 10 mg tablet 1 tab PO BID naproxen 500 mg Tablet 500 mg PO BID thiamine HCl (vitamin B1) 100 mg tablet 100 mg PO DAILY baclofen 10 mg tablet 10 mg PO BID multivitamin [Daily Multi-Vitamin] Tablet 1 tab PO DAILY ibuprofen 800 mg tablet 800 mg PO TID PRN (Reason: Pain) Advair HFA 230-21 mcg/actuation HFA aerosol inhaler 2 puff inhalation BID Narcan 4 mg/actuation spray,non-aerosol 4 mg intranasal Q2M PRN (Reason: opioid overdose) Qty: 2 0RF Rx Instructions: spray 1 dose into ONE nostril; alternate nostrils w each dose until help arrives nystatin 100,000 unit/gram powder 1 appl topical DAILY PRN Ozempic 2 mg/dose (8 mg/3 mL) pen injector subcut [id number] fum-folic ac 7.5 mg iron-400 mcg tablet 1 tab PO DAILY acetaminophen [Pain Relief (acetaminophen)] 500 mg tablet 500 mg PO Q4H PRN (Reason: pain) B-complex with vitamin C Tablet 1 tab PO DAILY cyanocobalamin (vitamin B-12) 1,000 mcg tablet 1,000 mcg PO DAILY cholecalciferol (vitamin D3) 25 mcg (1,000 unit) tablet 25 mcg PO DAILY polyethylene glycol 3350 17 gram powder in packet 17 g PO BID PRN (Reason: constipation) cetirizine 10 mg tablet 10 mg PO DAILY gabapentin 300 mg capsule PO Referrals: [facility] [Provider Group] Ayan Clayton III, MD [Primary Care Provider] - Interventions: ED Discharge Assessment Last Done: 04/29/23 14:47 Discharge Date/Time: 04/29/23 14:47
[2023-04-29] MEDS: Acetaminophen 325 MG TABLET 650 MG PO (12:42)
[2023-04-29] MEDS: Ketorolac Tromethamine 30 MG/ML VIAL IM (14:42)
== END 2023-04-29 14:47 | disposition home or self-care (01) ==
PROVIDERS: Emergency Provider Student in an Organized Health Care Education/Training Program; PCP Internal Medicine
DX: M17.11 Unilateral primary osteoarthritis, right knee (principal); R60.0 Localized edema; M25.561 Pain in right knee; E11.9 Type 2 diabetes mellitus without complications; E78.00 Pure hypercholesterolemia, unspecified; Z79.01 Long term (current) use of anticoagulants; Z79.02 Long term (current) use of antithrombotics/antiplatelets; Z79.899 Other long term (current) drug therapy
CPT/HCPCS: 73502; 73564; 93971; 96372; 99283; 99284; J1885

== ENCOUNTER 2023-05-01 11:37 | Outpatient (AMB) | payer OTHER, SELFPAY ==
--- NOTE | 2023-05-01 11:43 | A.OFFVIS_ITS ---
Intake Vital Signs 05/01/23 11:50 Height 5 ft Weight 142 lb BMI 27.7 BP 130/74 Blood Pressure Location Lt brachial Position Sitting Respiration 14 Pulse 76 Pulse Source Pulse Oximeter Pulse Oximetry (%) 97 Oxygen Delivery Method Room Air Intake Visit Reasons: BILATERAL HIP INJ 03/28/23/lvm Intake Note: Patient comes in for post-op appointment. Reports pain 01/03. Allergies Sulfa (Sulfonamide Antibiotics) Allergy (Intermediate, Verified 05/01/23 11:49) SWELLING metformin Adverse Reaction (Intermediate, Verified 05/01/23 11:49) diarrhea HPI HPI Comments History of Present Illness Details Yanet is a back in my office with complains on pain in the bilateral groins as well as pain in the lower back as well as radiation of the pain from the lower back to the left lower extremity.? She reported that therapeutic steroid hip njections which were done for her in March resulted in may be few days of pain improvement only.? We discussed possibility of her to consider total hip replacements.? She was referred to Dr. Ruiz and Dr. Ruiz offered her left total hip replacement for now. Possibility exist on addressing right hip as well. She went for sacroiliac joint injection and the sacroiliac joint injection resulted in only few days of pain improvement. Patient is requesting to be started on the chronic opioid therapy however as I explained her in the past currently chronic opioid program with closed. She was a subject of [employer] spinal cord stimulation insertion. She reports that the about 9 months she had significant pain relief.? She reports that the she started to feel worse pain.? She did not try to turn the stimulator of to feel how significant this stimulation action helps her with the pain.? I recommended the patient to contact [employer] representatives to work on this patient's SCS and try to establish possibly DTM protocol to help her pain. Her pain is very severe today and she requests me to give her short course of the opioid medications until she will contact [employer] and work with [employer] in the SCS adjustment. I agreed to give her 15 days were scraped of the oxycodone. PRIOR: Yanet is a pleasant 64-year-old female who presents to the office with complaints of low back pain.? She reports the pain started about 2-3 years ago without any inciting events.? She had her first back surgery in March 2019 at [facility] due to pain and weakness of bilateral lower extremities and then had a second? surgery in October 2019 [facility].? She reports having a fusion and diskectomy of multiple levels with hardware. Unfortunately she is unsure what levels. She states her pain prior to surgery was 7-8/10 and has been unchanged since surgery. She reports having numbness and tingling in her left lower extremity that she feels starts in her back. She does admit to neuropathy on bilateral feet up to her ankles.? She states the pain starts in the back, to left groin and then anteriorly to her left ankle. ? She can ambulate at maximum a block and can only stand for about 10-15 minutes before she needs to sit due to pain. When standing or sitting for prolonged periods she develops a persistent shooting pain down her left leg. She has tried physical therapy most recently in November with no improvement in pain. She has had back injections prior to her surgeries with no effect. Her pain is alleviated by oral medications and rest. She has previously been prescribed Percocet 10-325 and was taking 1-2 tablets every four hours with a maximum of 6 tablets per day. She was receiving this prescription from her neurosurgeon but he ended the prescription in February. She has tried baclofen, tizanidine, ibuprofen, gabapentin and lyrica with little to no help. Her pain is exacerbated by movements and weather changes. After reviewing notes received from [facility], it appears she had a L2-L3 TLIF October 2019 and a L4-L5 TFI [facility] Medical History COVID-19 vaccine series completed Full dentures Arthritis of left hip Ankle pain, right Low back pain Liver cyst IDDM (insulin dependent diabetes mellitus) Ambulates with cane COPD (chronic obstructive pulmonary disease) Elevated cholesterol Surgical History Status post insertion of nerve stimulator Hx of colonoscopy Hx of carpal tunnel repair History of back surgery Social History Patient Tobacco Use Status: Former Tobacco user Quit Date: 2008 Tobacco use type: Cigarette Review of Systems Const All systems reviewed & are unremarkable except as noted in HPI and below ENT Denies Normal hearing present Neuro Denies Normal hearing present, Denies Abnormal speech present and Denies confusion Psych Denies confusion Physical Exam Vital Signs: Last Vital Signs Pulse 76 05/01/23 11:50 Resp 14 05/01/23 11:50 BP 130/74 05/01/23 11:50 Pulse Ox 97 05/01/23 11:50 Oxygen Delivery Method Room Air 05/01/23 11:50 BMI result Body Mass Index 27.7 Const General: No confusion Nutritional Appearance: obese Orientation/consciousness: No confusion Limitations: ambulation with cane HEENT Head: Yes normocephalic and Yes atraumatic Ears: hearing grossly normal bilaterally Eyes General: appearance normal, both eyes and all related structures Eyelids: Yes eyelids normal Pupils: Equal, round and reactive pupils present EOM: EOMs intact bilaterally Neck Neck: Yes normal visual inspection and Yes no JVD Resp Effort & Inspection: normal respiratory effort, able to speak in complete sentences and no audible wheezes Cardio Jugular venous distension: no JVD Neuro General: No confusion Cranial nerves: Yes Equal, round and reactive pupils present and No Normal hearing present Speech: No Abnormal speech present Extrem Other: Lateral rotation of bilateral hips results in pain exacerbation in the groin. Psych Appearance: grossly normal Mental Status: mental status grossly normal Speech and movement: Normal speech and movement present Affect: normal affect Attitude: cooperative Thought process: Normal thought process present Thought content: Normal thought content present Insight: Good insight present (Psych) Judgement: Good judgement present (Psych) Assessment & Plan Assessment & Plan (1) Osteoarthritis (arthritis due to wear and tear of joints): Code(s): M19.90 - Unspecified osteoarthritis, unspecified site (2) Failed back syndrome: Code(s): M96.1 - Postlaminectomy syndrome, not elsewhere classified (3) Spondylosis of lumbosacral spine with radiculopathy: Code(s): M47.27 - Other spondylosis with radiculopathy, lumbosacral region (4) Sacroiliitis: Code(s): M46.1 - Sacroiliitis, not elsewhere classified (5) Bilateral sacroiliitis: Code(s): M46.1 - Sacroiliitis, not elsewhere classified Plan: ? Plan The bilateral joint pain most likely related to bilateral hip osteoarthritis. Unfortunately the hip steroid injections resulted in no pain improvement lasting longer than few days. I performed sacroiliac joint injections and the patient denied sacroiliac joint injections being helpful for her pain. She went for consult with Dr. Ruiz and Dr. Ruiz recommended left total hip replacement. She is scheduled for this procedure in November. She requested me to start her on opioid medications. We agreed that I will give her 1 time script only until she will be able to contact [facility] or [facility] sales training representative and try DT protocol. This will be 1 script only and she will not be admitted to the opioid program for this. I cannot do that because we are staffing short and our current opioid program is closed. On top of that she was suspended from our opioid program indefinitely because she had urine with cratum. Medications: New oxycodone Partial Fill upon patient request. 5 mg PO TID 15 days PRN 45 tabs 0RF pain Coding Level of Care Code Est Pt Level 3 (91057) Diagnoses Osteoarthritis (arthritis due to wear and tear of joints) M19.90 Failed back syndrome M96.1 Spondylosis of lumbosacral spine with radiculopathy M47.27 Sacroiliitis M46.1 Bilateral sacroiliitis M46.1
[2023-05-01 11:50] VITALS: BP 130/74; PULSE 76; RESP 14; O2SAT 97; BMI 27.7
== END 2023-05-01 11:58 | disposition home or self-care (01) ==
PROVIDERS: PCP Internal Medicine; Visit Provider Anesthesiology
DX: M96.1 Postlaminectomy syndrome, not elsewhere classified (principal); M47.27 Other spondylosis with radiculopathy, lumbosacral region; M46.1 Sacroiliitis, not elsewhere classified; M19.90 Unspecified osteoarthritis, unspecified site
CPT/HCPCS: 99213

== ENCOUNTER → 2023-05-01 11:37 | Outpatient (BNVA) | payer OTHER, SELFPAY | PROVIDERS: PCP Internal Medicine; Visit Provider Anesthesiology | DX: M19.90 Unspecified osteoarthritis, unspecified site (principal); M96.1 Postlaminectomy syndrome, not elsewhere classified; M47.27 Other spondylosis with radiculopathy, lumbosacral region; M46.1 Sacroiliitis, not elsewhere classified | CPT/HCPCS: 99212 ==

== ENCOUNTER 2023-05-18 09:33 | Outpatient (AMB) | payer OTHER, SELFPAY ==
--- NOTE | 2023-05-18 09:35 | A.OFFVIS_ITS ---
Intake Vital Signs 05/18/23 09:41 Height 5 ft Weight 143 lb BMI 27.9 BP 130/74 Blood Pressure Location Lt brachial Position Sitting Respiration 12 Pulse 89 Pulse Source Pulse Oximeter Pulse Oximetry (%) 91 L Oxygen Delivery Method Room Air Intake Visit Reasons: Medication Discussion/confirmed Intake Note: Patient comes in to discuss medication. Reports pain 01/03. Allergies Sulfa (Sulfonamide Antibiotics) Allergy (Intermediate, Verified 05/18/23 09:41) SWELLING metformin Adverse Reaction (Intermediate, Verified 05/18/23 09:41) diarrhea HPI HPI Comments History of Present Illness0 Details Yanet is a back in my office with request on helping her pain a with administration of the medications. She get into contact with [employer] who told her that the machine is already working on DTM mode. However patient denies help from this. Due to prior breech of the contract I can not start her on chronic opioid therapy-she was found with cratum in her urine and suspended indefinitely. Her main complains on pain in the bilateral groins as well as pain in the lower back as well as radiation of the pain from the lower back to the left lower extremity.? She reported that therapeutic steroid hip njections which were done for her in March resulted in may be few days of pain improvement only. She was referred to Dr. Ruiz and she is scheduled for procedure in August of this year. She went for sacroiliac joint injection and the sacroiliac joint injection resulted in only few days of pain improvement. Patient is requesting to be started on the chronic opioid therapy however as I explained her in the past currently chronic opioid program with closed. She was a subject of [employer] spinal cord stimulation insertion. She reports that the about 9 months she had significant pain relief.? She reports that the she started to feel worse pain.? She did not try to turn the stimulator of to feel how significant this stimulation action helps her with the pain.? We discussed possibility of helping her pain medically today. I explained her risks of the tizanidine, I explained her risks of the Celebrex including risk of heart attack and risk of stroke. She understood the risks but she nevertheless ask me to start her on Celebrex because her pain is unbearable and interferes with her daily function. I will stop and I warned her not to continue previously prescribed Naprosyn and ibuprofen. She also takes diclofenac topical and I recommended her not to take it because it is also NSAIDs and has significant systemic absorption. I explained to her that she is already on exuberant doses of the NSAID medications and if they are not working there is no reason to continue to take them. I also explained to her that combination of the NSAIDs and Zapien inhibitors could be very dangerous for her heart or brain circulation. Patient expressed understanding. PRIOR: Yanet is a pleasant 64-year-old female who presents to the office with complaints of low back pain.? She reports the pain started about 2-3 years ago without any inciting events.? She had her first back surgery in March 2019 at [facility] due to pain and weakness of bilateral lower extremities and then had a second? surgery in October 2019 [facility].? She reports having a fusion and diskectomy of multiple levels with hardware. Unfortunately she is unsure what levels. She states her pain prior to surgery was 7-8/10 and has been unchanged since surgery. She reports having numbness and tingling in her left lower extremity that she feels starts in her back. She does admit to neuropathy on bilateral feet up to her ankles.? She states the pain starts in the back, to left groin and then anteriorly to her left ankle. ? She can ambulate at maximum a block and can only stand for about 10-15 minutes before she needs to sit due to pain. When standing or sitting for prolonged periods she develops a persistent shooting pain down her left leg. She has tried physical therapy most recently in November with no improvement in pain. She has had back injections prior to her surgeries with no effect. Her pain is alleviated by oral medications and rest. She has previously been prescribed Percocet 10-325 and was taking 1-2 tablets every four hours with a maximum of 6 tablets per day. She was receiving this prescription from her neurosurgeon but he ended the prescription in February. She has tried baclofen, tizanidine, ibuprofen, gabapentin and lyrica with little to no help. Her pain is exacerbated by movements and weather changes. After reviewing notes received from [facility], it appears she had a L2-L3 TLIF October 2019 and a L4-L5 TFI [facility] Medical History COVID-19 vaccine series completed Full dentures Arthritis of left hip Ankle pain, right Low back pain Liver cyst IDDM (insulin dependent diabetes mellitus) Ambulates with cane COPD (chronic obstructive pulmonary disease) Elevated cholesterol Surgical History Status post insertion of nerve stimulator Hx of colonoscopy Hx of carpal tunnel repair History of back surgery Social History Patient Tobacco Use Status: Former Tobacco user Quit Date: 2008 Tobacco use type: Cigarette Review of Systems Const All systems reviewed & are unremarkable except as noted in HPI and below ENT Denies Normal hearing present Neuro Denies Normal hearing present, Denies Abnormal speech present and Denies confusion Psych Denies confusion Physical Exam Const General: No confusion Nutritional Appearance: obese Orientation/consciousness: No confusion Limitations: ambulation with cane HEENT Head: Yes normocephalic and Yes atraumatic Ears: hearing grossly normal bilaterally Eyes General: appearance normal, both eyes and all related structures Eyelids: Yes eyelids normal Pupils: Equal, round and reactive pupils present EOM: EOMs intact bilaterally Neck Neck: Yes normal visual inspection and Yes no JVD Resp Effort & Inspection: normal respiratory effort, able to speak in complete sentences and no audible wheezes Cardio Jugular venous distension: no JVD Neuro General: No confusion Cranial nerves: Yes Equal, round and reactive pupils present and No Normal hearing present Speech: No Abnormal speech present Extrem Other: Lateral rotation of bilateral hips results in pain exacerbation in the groin. Psych Appearance: grossly normal Mental Status: mental status grossly normal Speech and movement: Normal speech and movement present Affect: normal affect Attitude: cooperative Thought process: Normal thought process present Thought content: Normal thought content present Insight: Good insight present (Psych) Judgement: Good judgement present (Psych) Assessment & Plan Assessment & Plan (1) Osteoarthritis (arthritis due to wear and tear of joints): Code(s): M19.90 - Unspecified osteoarthritis, unspecified site (2) Failed back syndrome: Code(s): M96.1 - Postlaminectomy syndrome, not elsewhere classified (3) Spondylosis of lumbosacral spine with radiculopathy: Code(s): M47.27 - Other spondylosis with radiculopathy, lumbosacral region (4) Sacroiliitis: Code(s): M46.1 - Sacroiliitis, not elsewhere classified (5) Bilateral sacroiliitis: Code(s): M46.1 - Sacroiliitis, not elsewhere classified Plan: ? Plan The bilateral joint pain most likely related to bilateral hip osteoarthritis. Unfortunately the hip steroid injections resulted in no pain improvement lasting longer than few days. I performed sacroiliac joint injections and the patient denied sacroiliac joint injections being helpful for her pain. She went for consult with Dr. Ruiz and Dr. Ruiz recommended left total hip replacement. She is scheduled for this procedure in August. [employer] rep reported that she is already on DTM protocol. I can not accept her for the chronic opioid program. I cannot do that because we are staffing short and our current opioid program is closed. On top of that she was suspended from our opioid program indefinitely because she had urine with cratum. I offered her to stop all the NSAIDs and try Zapien inhibitors as well as muscle relaxants for her pain. See orders as below. I also recommended her to request primary care physician to prescribe her small doses of the opioid medications. Medications: New celecoxib (Celebrex) 100 mg PO BID 30 days 60 caps 8RF tizanidine 2 mg PO Q8H 30 days PRN 90 tabs 8RF muscle spasticity Discontinued diclofenac sodium 1% (Aleve (diclofenac)) apply to single elbow, wrist or hand; for hand includes palm/fingers/back of hand Discontinued Reason: Doctor's Order 2 grams topical QID PRN 100 grams 0RF pain (scale score 1-3) naproxen Discontinued Reason: Doctor's Order 500 mg PO BID 10 days PRN 20 tabs 0RF pain Patient Instructions: I here by testify that I spent 35 minutes in conversation with this patient as well as evaluating her prior images, her prior records, and organizing this note. Coding Level of Care Code Est Pt Level 4 (00625) Diagnoses Osteoarthritis (arthritis due to wear and tear of joints) M19.90 Failed back syndrome M96.1 Spondylosis of lumbosacral spine with radiculopathy M47.27 Sacroiliitis M46.1 Bilateral sacroiliitis M46.1
[2023-05-18 09:41] VITALS: BP 130/74; PULSE 89; RESP 12; O2SAT 91; BMI 27.9
== END 2023-05-18 10:01 | disposition home or self-care (01) ==
LOC: HO.PMC 09:33
PROVIDERS: PCP Internal Medicine; Visit Provider Anesthesiology
DX: M19.90 Unspecified osteoarthritis, unspecified site (principal); M96.1 Postlaminectomy syndrome, not elsewhere classified; M47.27 Other spondylosis with radiculopathy, lumbosacral region; M46.1 Sacroiliitis, not elsewhere classified
CPT/HCPCS: 99214

== ENCOUNTER → 2023-05-18 09:33 | Outpatient (BNVA) | payer OTHER, SELFPAY | PROVIDERS: PCP Internal Medicine; Visit Provider Anesthesiology | DX: M19.90 Unspecified osteoarthritis, unspecified site (principal); M96.1 Postlaminectomy syndrome, not elsewhere classified; M47.27 Other spondylosis with radiculopathy, lumbosacral region; M46.1 Sacroiliitis, not elsewhere classified | CPT/HCPCS: 99212 ==

== ENCOUNTER → 2023-08-01 12:54 | Outpatient (BNVA) | payer OTHER, SELFPAY | PROVIDERS: PCP Internal Medicine | DX: Z01.818 Encounter for other preprocedural examination (principal) ==

== ENCOUNTER 2023-08-24 13:11 | Outpatient (AMB) | payer OTHER, SELFPAY ==
--- NOTE | 2023-08-24 13:19 | A.OFFVIS_ITS ---
Intake Visit Reasons: Preop- LT CHINYERE 08/29/23 NE Intake Note: Yanet a 67 year old female who presents today for a preoperative visit of left CHINYERE on 08/29/23. Pain management agreement reviewed and signed. Allergies Sulfa (Sulfonamide Antibiotics) Allergy (Intermediate, Verified 08/24/23 13:23) SWELLING metformin Adverse Reaction (Intermediate, Verified 08/24/23 13:23) diarrhea Medication List - Last Reconciled 08/24/23 by Izabel Hoang PA-C albuterol sulfate 90 mcg/actuation (Ventolin HFA) 2 puffs inhalation Q6H PRN atorvastatin 20 mg PO BEDTIME yvyxewizzmp-bdkioghzh-cbpvfmea 100-62.5-25 mcg (Trelegy Ellipta) 1 ea inhalation DAILY hydroxyzine HCl 50 mg PO BID lisinopril 2.5 mg PO DAILY khnxcinr-sua-mgva fum-folic ac 7.5 mg iron-400 mcg 1 tab PO DAILY nystatin 1 appl topical DAILY PRN semaglutide (Ozempic) 2 mg subcut QWEEK thiamine HCl (vitamin B1) 100 mg PO DAILY tizanidine 4 mg PO BID PRN HPI Comments Details: Ms King presents to the office today for preop visit. She is scheduled for left total hip arthroplasty with Dr. Ruiz. She continues to have ongoing pain and difficulty with ambulation in the left hip, which is affecting her quality of life; therefore, she has elected to move forward with surgery. [facility] Medical History (Updated 08/22/23 @ 12:01 by Mavis Garcia RN) Abdominal hernia Asthma Arthritis COVID-19 vaccine series completed Full dentures Arthritis of left hip Low back pain Liver cyst IDDM (insulin dependent diabetes mellitus) COPD (chronic obstructive pulmonary disease) Elevated cholesterol Surgical History Hx of gastric bypass Hx of ankle fusion Status post insertion of nerve stimulator Hx of colonoscopy Hx of carpal tunnel repair History of back surgery Social History Are you a primary care partner to a significant other at home: Yes (granddaughter) Do you presently have visiting nurse or 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 home services: 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) Patient Tobacco Use Status: Former Tobacco user Tobacco use type: Cigarette Review of Systems Const All systems reviewed & are unremarkable except as noted in HPI and below Physical Exam Const General: cooperative and no acute distress Orientation/consciousness: patient oriented x3 HEENT Head: Yes normal to inspection, Yes normocephalic and Yes atraumatic Eyes General: appearance normal, both eyes and all related structures Neck Neck: Yes normal visual inspection and Yes no lymphadenopathy Resp Effort & Inspection: normal respiratory effort and able to speak in complete sentences Cardio Rate: regular rate Peripheral pulses: Peripheral pulses 2+ throughout GI Inspection: Yes normal to inspection Palpation (GI): Soft to palpation Skin General skin exam: no rashes or lesions noted Neuro General: patient oriented x3 Extrem Other: Left hip: Skin is intact. No open wound or abrasion. She has pain with ROM. Calf supple, nontender. NVI. Psych Appearance: grossly normal Mental Status: mental status grossly normal Assessment & Plan Assessment & Plan (1) Osteoarthritis of left hip: Code(s): M16.12 - Unilateral primary osteoarthritis, left hip Category: Medical Qualifiers: Osteoarthritis type: primary Qualified Code(s): M16.12 - Unilateral primary osteoarthritis, left hip Plan: I discussed in detail the procedure and what to expect pre and post operatively. We discussed the risks, benefits and alternatives to the surgery as well as the rehabilitation course. The risks; which include, but are not limited to infection, bleeding, nerve injury, ongoing pain, swelling, and stiffness, perioperative risk of injury to bones and soft tissues, and blood clots. I?ve answered all questions and with their understanding they have consented to move forward with Left total hip arthroplasty with Dr. Ruiz She is able to take celebrex and aspirin Orders: Orders PT Evaluation and Treatment 08/24/23 M16.12 - Unilateral primary osteoarthritis, left hip Patient Instructions: Scribed for Izabel Hoang PA-C, by Yosi Ridley medical billing manager, on 08/24/2023 at 1:15 PM EST.? I, Izabel Hoang PA-C, have personally reviewed and agree with the information entered by the scribe. Coding Level of Care Code Est Pt Level 3 (02988) Diagnoses Primary osteoarthritis of left hip M16.12 Osteoarthritis type: primary
== END 2023-08-28 10:13 | disposition home or self-care (01) ==
PROVIDERS: PCP Internal Medicine; Visit Provider Physician Assistant
DX: M16.12 Unilateral primary osteoarthritis, left hip (principal)
CPT/HCPCS: 99213

== ENCOUNTER → 2023-08-24 13:11 | Outpatient (BNVA) | payer OTHER, SELFPAY | PROVIDERS: PCP Internal Medicine; Visit Provider Physician Assistant | DX: Z01.818 Encounter for other preprocedural examination (principal); M16.12 Unilateral primary osteoarthritis, left hip | CPT/HCPCS: 99212 ==

== ENCOUNTER 2023-08-29 06:05 | Inpatient (IN) | payer OTHER, SELFPAY ==
[2023-08-22 12:39] VITALS: BP 186/80; PULSE 80; RESP 20; O2SAT 99; BMI 24.2
[2023-08-22 13:45] LABS: Hematocrit 40.2 % (37.0-47.0); Hemoglobin 13.4 g/dl (12.0-16.0); Mean Corpuscular HGB Conc 33.3 g/dl (31.0-35.0); Mean Corpuscular Hemoglobin 30.2 pg (27.0-33.0); Mean Corpuscular Volume 90.7 fL (80.0-98.0); Mean Platelet Volume 10.4 fL (9.4-12.3); Platelet Count 293 X10*3/uL (160-400); Red Blood Count 4.43 X10*6/uL (4.20-5.50); Red Cell Distribution Width 15.9 % (11.0-16.0); White Blood Count 9.9 X10*3/uL (4.8-10.8)
[2023-08-22 13:55] LABS: Estimated Average Glucose 105 mg/dL; Hemoglobin A1c % 5.3 % (<6.0)
[2023-08-22 14:14] LABS: MRSA Nasal PCR POSITIVE (Negative); SA Nasal PCR POSITIVE (Negative)
[2023-08-22 14:24] LABS: Alanine Aminotransferase 14 U/L (0-31); Albumin Level 4.6 g/dL (3.5-5.0); Alkaline Phosphatase 96 U/L (39-117); Anion Gap 15 (12-20); Aspartate Amino Transferase 26 U/L (5-31); Bilirubin Direct 0.2 mg/dL (0.0-0.5); Bilirubin Total 0.5 mg/dL (0.0-1.0); Blood Urea Nitrogen 11 mg/dL (9-16); Calcium 10.3 mg/dL (8.4-10.2); Carbon Dioxide 18 mmol/L (22-29); Chloride 115 mmol/L (96-108); Creatinine Clr Calc Pharmacy 38.6; Estimated Glomerular Filt Rate 49; Glucose Random 166 mg/dL (60-115); Potassium 3.4 mmol/L (3.3-5.1); Sodium 145 mmol/L (135-145); Total Protein 7.4 g/dL (6.5-8.0)
[2023-08-29] VITALS (17 sets, daily range): BP systolic 104–149; BP diastolic 53–73; PULSE 54–99; RESP 10–22; TEMP 36.1–36.4; O2SAT 93–100; BMI 24.1
--- NOTE | ~2023-08-29 | XR_ITS ---
EXAMINATION: XR PELVIS CLINICAL INFORMATION: Left hip replacement COMPARISON: Previous pelvis x-ray April 2023 TECHNIQUE: AP view of the pelvis. FINDINGS: New left hip replacement in satisfactory position. No fracture or dislocation. Postoperative changes to the soft tissues. Severe arthritis at the right hip joint with joint space narrowing, osteophyte formation and subchondral cyst formation. The surgical changes the lower lumbar spine and battery from likely spinal stimulator. XR/XR pelvis 1-2V IMPRESSION: Satisfactory appearance of left hip replacement.
[2023-08-29] MEDS: oxyCODONE HCl ER 10 MG TAB.ER.12H PO ×2 (06:34→20:42)
[2023-08-29 06:45] LABS: Glucose, Whole Blood 104 mg/dL (60-115)
--- NOTE | 2023-08-29 07:20 | HO.ANESPROP2 ---
Documented by User: Keyla Mariscal NP 08/28/23 14:11 HPI - Anesthesia Eval Consult details Narrative: 67yo F for Left Hip Total Replacement PAT eval with Dr Guidry 08/22/23 Medically optimized Pulmo optimized PMFSH Active Problems Active Problems: All Active Problems Bilateral sacroiliitis (Acute) Sacroiliitis (Acute) Sacroiliac joint pain (Acute) Bilateral hip joint arthritis (Acute) Osteoarthritis (arthritis due to wear and tear of joints) (Acute) Osteoarthritis of left hip (Acute) Failed back syndrome (Acute) Spondylosis of lumbosacral spine with radiculopathy (Acute) Past Medical History Medical History (Updated 08/22/23 @ 12:01 by Mavis Garcia RN) Abdominal hernia Asthma Arthritis COVID-19 vaccine series completed Full dentures Arthritis of left hip Low back pain Liver cyst IDDM (insulin dependent diabetes mellitus) COPD (chronic obstructive pulmonary disease) Elevated cholesterol Family History Family history of problems with anesthesia: No Surgical History Surgical History Hx of gastric bypass Hx of ankle fusion Status post insertion of nerve stimulator Hx of colonoscopy Hx of carpal tunnel repair History of back surgery History of Problems with Anesthesia: No Social History Social History Are you a primary inpatient care manager rn to a significant other at home: Yes (granddaughter) Do you presently have 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 If so, by whom?: No Are you DNR?: No Advance Directives: No Advance Directives Information Provided: No Advance Directives on File: No Recently lost weight without trying: No Eating poorly because of decreased appetite: No Nutrition Risks: No Nutritional Risk Patient : No : No Poor oral hygiene: Yes (Frll dentures upper and lower) Meds Allergies Allergy/AdvReac Type Severity Reaction Status Date / Time Sulfa (Sulfonamide Allergy Intermediate SWELLING Verified 08/24/23 13:23 Antibiotics) metformin AdvReac Intermediate diarrhea Verified 08/24/23 13:23 Home Medications ?Medication ?Instructions ?Recorded ?Confirmed ?Last Taken ?Type thiamine HCl (vitamin B1) 100 mg 100 mg PO DAILY 04/29/20 08/24/23 08/21/23 History tablet albuterol sulfate 90 mcg/actuation 2 puff inhalation Q6H PRN wheezing 11/16/20 08/24/23 Unknown History aerosol inhaler (Ventolin HFA) atorvastatin 20 mg tablet 20 mg PO BEDTIME 11/16/20 08/24/23 08/28/23 History umbqdxsdrwnu-wkmhmxqp-bcpu 1 tab PO DAILY 03/10/22 08/24/23 08/21/23 History fumarate 7.5 mg-folic acid 400 mcg tablet nystatin 100,000 unit/gram topical 1 appl topical DAILY PRN Rash 05/18/22 08/29/23 Unknown History powder semaglutide 2 mg/dose (8 mg/3 mL) 2 mg subcut QWEEK 06/06/22 08/24/23 08/16/23 History subcutaneous pen injector (Ozempic) lisinopril 2.5 mg tablet 2.5 mg PO DAILY 08/01/23 08/24/23 08/28/23 History fluticasone fur. 100 mcg-umeclid 1 ea inhalation DAILY 08/22/23 08/24/23 08/28/23 History 62.5 mcg-vilant 25 mcg inhalat.powder (Trelegy Ellipta) hydroxyzine HCl 50 mg tablet 50 mg PO BID 08/22/23 08/29/23 08/28/23 History tizanidine 2 mg tablet 4 mg PO Q6-8H PRN muscle spasticity 08/22/23 08/29/23 08/28/23 History Exam Height,Weight and Vital Signs: Height 5 ft Weight 56.245 kg Last Vital Signs Pulse 80 08/22/23 12:39 Resp 20 08/22/23 12:39 BP 186/80 H 08/22/23 12:39 Pulse Ox 99 08/22/23 12:39 O2 Del Method Room Air 08/22/23 12:39 Pertinent Lab Results Pertinent Lab Results: Laboratory Tests 08/22/23 08/22/23 08/22/23 12:45 13:14 13:26 WBC 9.9 RBC 4.43 Hgb 13.4 Hct 40.2 MCV 90.7 MCH 30.2 MCHC 33.3 RDW 15.9 Plt Count 293 MPV 10.4 Absolute Nucleated RBC 0.000 Nucleated RBC % (auto) 0.0 Sodium 145 Potassium 3.4 Chloride 115 H Carbon Dioxide 18 L Anion Gap 15 BUN 11 Creatinine 1.11 Estim Creat Clear Calc 38.6 Estimated GFR 49 Random Glucose 166 H Estimat Average Glucose 105 Hemoglobin A1c % 5.3 Calcium 10.3 H Total Bilirubin 0.5 Direct Bilirubin 0.2 AST 26 ALT 14 Alkaline Phosphatase 96 Total Protein 7.4 Albumin 4.6 Nasal Screen MRSA (PCR) POSITIVE A Nasal S. aureus Screen POSITIVE A Nasal MRSA/S.aureus Interp SEE NOTE Blood Type B Positive Antibody Screen NEGATIVE Narrative Narrative: EKG 07/2023 SR @ 83 ? LAD Assessment and Plan Assessment Anesthesia Assessment: Chart Reviewed Final Anesthetic Review Family History of Problems with Anesthesia: No History of Problems with Anesthesia: No Documented by User: Jannie Lyles DO 08/29/23 07:20 HPI - Anesthesia Eval Anesthesia Pre-Procedure Meds Is the patient on any of the following meds?: GLP1/DPP4 (last dose 08/16/23) If yes to any meds - educate patient: Pt education - increased risk of aspiration and/or euvolemic DKA [facility] Past Medical History Medical History (Updated 08/22/23 @ 12:01 by Mavis Garcia RN) Abdominal hernia Asthma Arthritis COVID-19 vaccine series completed Full dentures Arthritis of left hip Low back pain Liver cyst IDDM (insulin dependent diabetes mellitus) COPD (chronic obstructive pulmonary disease) Elevated cholesterol Family History Family history of problems with anesthesia: No Surgical History Surgical History Hx of gastric bypass Hx of ankle fusion Status post insertion of nerve stimulator Hx of colonoscopy Hx of carpal tunnel repair History of back surgery History of Problems with Anesthesia: No Social History Social History Are you a primary inpatient care manager rn to a significant other at home: Yes (granddaughter) Do you presently have 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 If so, by whom?: No Are you DNR?: No Advance Directives: No Advance Directives Information Provided: No Advance Directives on File: No Recently lost weight without trying: No Eating poorly because of decreased appetite: No Nutrition Risks: No Nutritional Risk Patient : No : No Poor oral hygiene: Yes (Frll dentures upper and lower) Meds Allergies Allergy/AdvReac Type Severity Reaction Status Date / Time Sulfa (Sulfonamide Allergy Intermediate SWELLING Verified 08/24/23 13:23 Antibiotics) metformin AdvReac Intermediate diarrhea Verified 08/24/23 13:23 Home Medications ?Medication ?Instructions ?Recorded ?Confirmed ?Last Taken ?Type thiamine HCl (vitamin B1) 100 mg 100 mg PO DAILY 04/29/20 08/24/23 08/21/23 History tablet albuterol sulfate 90 mcg/actuation 2 puff inhalation Q6H PRN wheezing 11/16/20 08/24/23 Unknown History aerosol inhaler (Ventolin HFA) atorvastatin 20 mg tablet 20 mg PO BEDTIME 11/16/20 08/24/23 08/28/23 History pbkdspgdsasm-bdmkswex-chko 1 tab PO DAILY 03/10/22 08/24/23 08/21/23 History fumarate 7.5 mg-folic acid 400 mcg tablet nystatin 100,000 unit/gram topical 1 appl topical DAILY PRN Rash 05/18/22 08/29/23 Unknown History powder semaglutide 2 mg/dose (8 mg/3 mL) 2 mg subcut QWEEK 06/06/22 08/24/23 08/16/23 History subcutaneous pen injector (Ozempic) lisinopril 2.5 mg tablet 2.5 mg PO DAILY 08/01/23 08/24/23 08/28/23 History fluticasone fur. 100 mcg-umeclid 1 ea inhalation DAILY 08/22/23 08/24/23 08/28/23 History 62.5 mcg-vilant 25 mcg inhalat.powder (Trelegy Ellipta) hydroxyzine HCl 50 mg tablet 50 mg PO BID 08/22/23 08/29/23 08/28/23 History tizanidine 2 mg tablet 4 mg PO Q6-8H PRN muscle spasticity 08/22/23 08/29/23 08/28/23 History Exam Exam Date and Time: August 29, [id number] Height,Weight and Vital Signs: Height 5 ft Weight 56.245 kg Last Vital Signs Pulse 80 08/22/23 12:39 Resp 20 08/22/23 12:39 BP 186/80 H 08/22/23 12:39 Pulse Ox 99 08/22/23 12:39 O2 Del Method Room Air 08/22/23 12:39 Height 5 ft Weight 55.905 kg Vital Signs Pulse Rate 80 08/22/23 12:39 Respiratory Rate 20 08/22/23 12:39 Blood Pressure 186/80 H 08/22/23 12:39 Pulse Oximetry 99 08/22/23 12:39 Oxygen Delivery Method Room Air 08/22/23 12:39 Temperature 97.3 F 08/29/23 07:09 Pulse Rate 54 08/29/23 07:09 Respiratory Rate 16 08/29/23 07:09 Blood Pressure 113/56 L 08/29/23 07:09 Pulse Oximetry 99 08/29/23 07:09 Oxygen Delivery Method Room Air 08/29/23 07:09 Airway Mallampati Class: I TM Dist: >3cm Neck ROM: Full Loose/Missing/Broken Teeth: Yes (edentulous) Heart: S1S2 Lungs: CTAB Assessment and Plan Assessment Anesthesia Assessment: Anesthesia Plan Discussed and Chart Reviewed Final Anesthetic Review Family History of Problems with Anesthesia: No History of Problems with Anesthesia: No NPO: Yes ASA Class: III Final Preanesthetic Review: No Changes in Pt Med Stat, Meds/Allgs Chart Reviewed, Consent Obtained/Reviewed and Anes Risks/Benef Reviewed Patient Risk: Intermediate Procedure Risk: Intermediate Anesthetic Plan Anesthetic Plan: GA and Agree w/ Assess. and Plan Disposition: Standard PACU
--- NOTE | 2023-08-29 07:22 | MHC.SHP ---
Pre-Procedural Eval Section A - 24 Hr Update-Section A only Date of Service: 08/29/23 The patient is an INPATIENT: No Changes since office visit: No Cold of Flu in the past 2 weeks, No New Medical Problems, No Changes in Medication and No Patient answered all questions The patient has been examined within 24 hours of the surgical procedure. The History & Physical has been completed within 30 days and I have reviewed it.: Yes Section B - Complete if H&P > 30 days Chief Complaint: lt stan Allergies: Allergies Allergy/AdvReac Type Severity Reaction Status Date / Time Sulfa (Sulfonamide Allergy Intermediate SWELLING Verified 08/24/23 13:23 Antibiotics) metformin AdvReac Intermediate diarrhea Verified 08/24/23 13:23 Plan I have reviewed the history and physical and performed a pertinent physical examination on my patient. No changes have occurred unless specified. Time Spent With Patient Time: Total time managing care of this patient today ____ minutes.
[2023-08-29] MEDS: Lactated Ringers 1,000 ML 100 ML IVCONT ×3 (07:28→22:58)
--- NOTE | 2023-08-29 09:04 | P.BOP_ITS ---
Brief Operative Note Date of Service: 08/29/23 Pre-op diagnosis: Left hip OA Post-op diagnosis: same Procedure: Left CHINYERE Implants: [employer] Trident2 [employer] Accolade2 #5 132 deg with +2.5 36 ceramic Surgeon: Fernie Ruiz MD Anesthesia: GETA and local Was an Business Applications Manager used for this Procedure?: Yes Business Applications Manager: Izabel Hoang Estimated blood loss (mL): 200 IV fluids (mL): 1,000 Pathology: other Condition: stable Disposition: PACU
--- NOTE | 2023-08-29 09:09 | P.OP_ITS ---
Operative Note Operative Note Date of Service: 08/29/23 Narrative: Date of Service: 08/29/23 Pre-op diagnosis: Left hip OA Post-op diagnosis: same Procedure: Left CHINYERE Implants: [place] Trident2 52 [employer] Accolade2 #5 132 deg with +2.5 36 ceramic Surgeon: Fernie Ruiz MD Anesthesia: GETA and local Was an Auricular Therapist used for this Procedure?: Yes Auricular Therapist: Izabel Hoang Estimated blood loss (mL): 200 IV fluids (mL): 1,000 Pathology: other Condition: stable Disposition: PACU Procedure in detail: Patient was brought into the operating room and placed in the right lateral decubitus position. All bony prominences were well padded and the limb was prepped and draped in standard sterile fashion. A time-out was called to identify proper site procedure proper surgeon IV antibiotics and 1 g of tranaxemic acid were administered. I began by making a curvilinear incision over the posterolateral aspect of the greater trochanter. Dissection was taken down to the tensor fascia which was incised in line with the incision and a Charnley retractor was placed. Cautery was used to maintain hemostasis. The hip was internally rotated and the external rotators were identified. The vessels were cauterized and a full-thickness capsular/external rotator layer was developed starting just proximal to the piriformis. This layer was tagged and a dull Hohmann retractor was placed underneath the neck in the hip was dislocated. A neck cut was made 1 cm proximal to the lesser trochanter and the head and neck were removed and measured 46mm on the back table. I then removed the labrum and cauterized the fovea. I started with a 42 reamer and medialized to the inner table. I sequentially reamed up to a size 52 and impacted a 52mm cup at 45 degrees of inclination and 25 degrees of version. I then placed a 20 deg posterior lipped liner and turned my attention to the femur. I identified the piriformis insertion and used this as a starting point for my vinay cutter. The medius tendon was protected with a Hibs retractor. A Charnley awl was inserted in the canal and a curved curette used to remove the lateral bone. I irrigated copiously. I then sequentially broached in the patient's natural version to a size 5 and placed my trial implants. I used a #5/132/+0. Using a trail head I took the hip through range of motion. I was satisfied with the stability and length. I removed all instrumentation and copiously irrigated. I placed my final femoral implant and again took the hip through range of motion and was satisfied with the stability and length. The final 2.5 implant was impacted in place and the hip reduced. I then irrigated copiously and placed 1 g of local transaxemic acid. I performed a capsular closure with 2.0 fiberwire, Alyx's fascia with 0 Vicryl, subcuticular with 2-0 Vicryl and the skin with claudia. Patient was placed into a sterile dressing. Patient was extubated brought to the recovery room in stable condition. There were no known complications.
[2023-08-29] MEDS: HYDROmorphone HCl 0.5 MG/0.5 ML SYRINGE IVPUSH (09:50)
[2023-08-29] MEDS: diphenhydrAMINE HCL 50 MG/ML VIAL 25 MG IVPUSH (10:30)
[2023-08-29 13:06] LABS: Glucose, Whole Blood 153 mg/dL (60-115)
--- NOTE | 2023-08-29 13:15 | P.CONHOSP_ITS ---
History of Present Illness Data of Consult Service Date: 08/29/23 Primary Care Provider: Gabbi Womack MD HPI 67-year-old woman with history of hyperlipidemia, hypertension admitted by Orthopedic surgery and is status post left total hip arthroplasty. Surgery was unremarkable. Patient has been able to eat and drink without any nausea or vomiting. She is hemodynamically stable with no acute medical complaints at this time. Review of Systems 2 Review of Systems: Denies any recent fever chills or decrease in appetite respiratory denies any shortness of breath or cough cardiovascular denied chest pain gastrointestinal denies any dysphagia abdominal pain nausea vomiting or diarrhea genitourinary denies any dysuria frequency or hematuria musculoskeletal denies any joint pain or swelling neuropsych denies any weakness or seizures all other systems reviewed are negative [facility] Medical History (Updated 09/05/23 @ 00:04 by Celi Quinones) Osteoarthritis (arthritis due to wear and tear of joints) Abdominal hernia Asthma Arthritis COVID-19 vaccine series completed Full dentures Arthritis of left hip Low back pain Liver cyst IDDM (insulin dependent diabetes mellitus) COPD (chronic obstructive pulmonary disease) Elevated cholesterol Surgical History Hx of gastric bypass Hx of ankle fusion Status post insertion of nerve stimulator Hx of colonoscopy Hx of carpal tunnel repair History of back surgery Social History Household Members: Family Household Members Other:: Granddaughter Housing: [facility] Are you a primary early breastfeeding care specialist to a significant other at home: Yes (granddaughter) Do you presently have visiting nurse or other home services: No Patient Tobacco Use Status: Former Tobacco user Tobacco use type: Cigarette Cigarettes Per Day: 60 Second Hand Smoke Exposure: No service: No Meds Allergies Allergy/AdvReac Type Severity Reaction Status Date / Time Sulfa (Sulfonamide Allergy Intermediate SWELLING Verified 08/24/23 13:23 Antibiotics) metformin AdvReac Intermediate diarrhea Verified 08/24/23 13:23 Active Medications: Current Medications Acetaminophen (Acetaminophen 325 Mg Tablet) 650 mg PO Q6H PRN PRN Reason: Pain, Mild (Pain Scale 1-3) Albuterol Sulfate (Albuterol Sulfate 90 Mcg 8 Gm Inhaler) 2 puff INHALE Q6H PRN PRN Reason: wheezing Aspirin (Aspirin 325 Mg Tablet) 325 mg PO BID [facility] Docusate Sodium (Docusate Sodium 100 Mg Capsule) 100 mg PO BID [facility] Fluticasone/Umeclidinium/Vilanterol (Fluticasone/Umeclidinium/Vilanterol 100/62.5/25 Blst.W.Dev) puff INHALE DAILY [facility] Hydromorphone HCl (Hydromorphone Hcl 0.5 Mg/0.5 Ml Syringe) 0.25 mg IVPUSH Q4H PRN; Protocol PRN Reason: Pain, Severe (Pain Scale 7-10) Hydroxyzine HCl (Hydroxyzine Hcl 50 Mg Tablet) 50 mg PO BID [facility] Lactated Ringer's (Lr) 1,000 mls @ 100 mls/hr IVCONT .Q10H BLANCO Stop: 08/30/23 09:19 Cefazolin Sodium/Dextrose (Ancef) 2 gm in 50 mls @ 100 mls/hr IV POSTOP ONE Stop: 08/29/23 13:21 Nystatin (Nystatin Powder 15 Gm Bottle) 1 appl TOPICAL DAILY PRN; Protocol PRN Reason: Rash Ondansetron HCl (Ondansetron Hcl 4 Mg/2 Ml Vial) 4 mg IVPUSH Q8H PRN PRN Reason: Nausea and Vomiting Oxycodone HCl (Oxycodone Hcl Immed Release 5 Mg Tablet) 5 mg PO Q4H PRN PRN Reason: Pain, Moderate(Pain Scale 4-6) Oxycodone HCl (Oxycodone Hcl Er 10 Mg Tab.Er.12h) 10 mg PO BID [facility] Sodium Chloride (0.9 % Sodium Chloride Flush 3 Ml Syringe) 3 ml IVFLUSH QSHIFT [facility] Thiamine HCl (Thiamine Hcl 100 Mg Tablet) 100 mg PO DAILY [facility] Tizanidine HCl (Tizanidine Hcl 4 Mg Tablet) 4 mg PO Q6-8H PRN PRN Reason: muscle spasticity Home Medications ?Medication ?Instructions ?Recorded ?Confirmed ?Last Taken ?Type thiamine HCl (vitamin B1) 100 mg 100 mg PO DAILY 04/29/20 08/29/23 08/21/23 History tablet albuterol sulfate 90 mcg/actuation 2 puff inhalation Q6H PRN wheezing 11/16/20 08/29/23 Unknown History aerosol inhaler (Ventolin HFA) atorvastatin 20 mg tablet 20 mg PO DAILY 11/16/20 08/29/23 08/28/23 History bjjugupkmedn-qfswwgzr-dhwb 1 tab PO DAILY 03/10/22 08/29/23 08/21/23 History fumarate 7.5 mg-folic acid 400 mcg tablet nystatin 100,000 unit/gram topical 1 appl topical DAILY PRN Rash 05/18/22 08/29/23 Unknown History powder semaglutide 2 mg/dose (8 mg/3 mL) 2 mg subcut WE@0900 06/06/22 08/29/23 08/16/23 History subcutaneous pen injector (Ozempic) lisinopril 2.5 mg tablet 2.5 mg PO DAILY 08/01/23 08/29/23 08/28/23 History fluticasone fur. 100 mcg-umeclid 1 ea inhalation DAILY 08/22/23 08/29/23 08/28/23 History 62.5 mcg-vilant 25 mcg inhalat.powder (Trelegy Ellipta) hydroxyzine HCl 50 mg tablet 50 mg PO BID 08/22/23 08/29/23 08/28/23 History tizanidine 2 mg tablet 4 mg PO Q6H PRN muscle spasticity 08/22/23 08/29/23 08/28/23 History B-complex with vitamin C 1 tab PO DAILY 08/29/23 08/29/23 Unknown History celecoxib 100 mg capsule 100 mg PO BID 08/29/23 08/29/23 Unknown History cetirizine 10 mg tablet 10 mg PO DAILY 08/29/23 08/29/23 Unknown History cholecalciferol (vitamin D3) 25 25 mcg DAILY 08/29/23 08/29/23 Unknown History mcg (1,000 unit) tablet cyanocobalamin (vitamin B-12) 1,000 mcg PO DAILY 08/29/23 08/29/23 Unknown History 1,000 mcg tablet Physical Exam 2 Vital Signs and Narrative: Vital Signs: Last Vital Signs Temp 97 F 08/29/23 12:29 Pulse 85 08/29/23 12:29 Resp 14 08/29/23 12:29 BP 149/70 H 08/29/23 12:29 Pulse Ox 99 08/29/23 12:29 O2 Del Method Nasal Cannula 08/29/23 12:29 O2 Flow Rate 1 08/29/23 12:29 BMI result Body Mass Index 24.1 Appearing in no acute distress head is normocephalic atraumatic eyes pupils are PERRLA sclera is anicteric mouth throat mucous membranes are intact and moist neck is supple no lymphadenopathy, no JVD noted lung sounds are clear to auscultation heart regular rate rhythm, clear S1, S2 positive bowel sounds, abdomen is soft, nontender neuro patient is alert x3, no focal deficits Results Labs 08/31/23 05:38 08/31/23 05:38 Labs: Laboratory Results - last 24 hr 08/29/23 08/29/23 06:40 13:02 POC Glucose 104 153 H Assessment and Plan (1) Osteoarthritis (arthritis due to wear and tear of joints): Status: Inactive Plan 67 year old women by Orthopedic surgery and is status post left total hip arthroplasty Left total hip arthroplasty Management as per surgical team Pain management DM2 ss, ada diet Hyperlipidemia statin HTN may continue lisinopril if BP allows DVT prophylaxis with full dose aspirin full code Medical consultation complete. will sign off
--- NOTE | 2023-08-29 13:18 | PM.DS ---
DS: Providers Provider Date of Service: 08/31/23 Date of admission: 08/29/23 06:05 Primary care physician: Gabbi Womack MD Consults: 08/29/23 12:52 Consult to Hospitalist Routine Comment: Consulting Provider: Hospitalist Reason For Exam: diabetic DS: Summary Hospital Course Hospital Course: The patient underwent a successful left total hip arthroplasty, they were transferred to PACU and then to the floor to recover. During their stay, their vitals were stable, afebrile at 98.7. Labs were unremarkable, H/H 9.4/28.1. POD 1 they were started on Aspirin 325mg po bid for DVT ppx, they also received Physical Therapy services twice a day. Prior to discharge, their dressing was clean dry and intact, and the plan was to be discharged home with VNA services. Time Attestation Total time managing care of this patient today: 30 mintues. Discharge Coordination Time (in mins): 30 Quality: Safe Use of Opioids Does Pt have an Active Cancer Diagnosis on the Problem List?: No Quality: Stroke Does the patient have a stroke diagnosis?: No Physical Exam Vital Signs: Vital Signs: Last Vital Signs Temp 97 F 08/29/23 12:29 Pulse 85 08/29/23 12:29 Resp 14 08/29/23 12:29 BP 149/70 H 08/29/23 12:29 Pulse Ox 99 08/29/23 12:29 O2 Del Method Nasal Cannula 08/29/23 12:29 O2 Flow Rate 1 08/29/23 12:29 BMI result Body Mass Index 24.1 Const: General: cooperative, healthy appearing and no acute distress Resp: Effort & Inspection: normal respiratory effort and able to speak in complete sentences Cardio: Rate: regular rate Peripheral pulses: Peripheral pulses 2+ throughout GI: Palpation (GI): Soft to palpation Skin: Lesions: no lesions Rashes: no rashes Extrem: Other: left hip dressing is c/d/i. Able to dorsi/plantar flex. Calf is supple and nontender. Sensation intact. Pedal pulse intact. DS: Data Data Completed and Pending Pending studies at discharge: Pending at discharge 08/29/23 08:07 Surgical [PTH] Routine Labs on day of discharge: Laboratory Results - last 24 hr 08/29/23 08/29/23 06:40 13:02 POC Glucose 104 153 H Discharge Plan Discharge Anticipated Discharge Date/Time: 08/30/23 15:00 Patient Disposition: Home Health Service Discharge Diagnosis: s/p LTHA Referrals: Izabel Hoang PA-C [Physician Forensic Social Worker] - 09/14/23 12:30 pm Discharge Medications: New acetaminophen 325 mg Tablet 650 mg PO Q6H PRN (Reason: Pain, Mild (Pain Scale 1-3)) 30 Days Qty: 240 0RF aspirin 325 mg Tablet 325 mg PO BID 42 Days Qty: 84 0RF docusate sodium 100 mg Capsule 100 mg PO BID 14 Days Qty: 28 0RF oxycodone 5 mg Tablet 5 mg PO Q4H PRN (Reason: Pain, Moderate(Pain Scale 4-6)) 7 Days Qty: 42 0RF Rx Instructions: Partial Fill upon patient request. Continued atorvastatin 20 mg Tablet 20 mg PO DAILY albuterol sulfate [Ventolin HFA] 90 mcg/actuation HFA aerosol inhaler 2 puff inhalation Q6H PRN (Reason: wheezing) hydroxyzine HCl 50 mg tablet 50 mg PO BID tizanidine 2 mg tablet 4 mg PO Q6H PRN (Reason: muscle spasticity) Trelegy Ellipta 100-62.5-25 mcg blister with device 1 ea inhalation DAILY cetirizine 10 mg tablet 10 mg PO DAILY cyanocobalamin (vitamin B-12) 1,000 mcg tablet 1,000 mcg PO DAILY celecoxib 100 mg capsule 100 mg PO BID B-complex with vitamin C Tablet 1 tab PO DAILY cholecalciferol (vitamin D3) 25 mcg (1,000 unit) tablet 25 mcg DAILY thiamine HCl (vitamin B1) 100 mg tablet 100 mg PO DAILY nystatin 100,000 unit/gram powder 1 appl topical DAILY PRN (Reason: Rash) Ozempic 2 mg/dose (8 mg/3 mL) pen injector 2 mg subcut WE@0900 Rx Instructions: patient takes every Monday jrvnreev-xif-pehc fum-folic ac 7.5 mg iron-400 mcg tablet 1 tab PO DAILY lisinopril 2.5 mg tablet 2.5 mg PO DAILY Discharge Orders: Discharge Order (Routine); Ordered 08/31/23 Ordered By: Martha Trent Diet: Advance to usual diet Activity on Discharge: Use cane or walker Stand Alone Forms: Patient Portal Discharge page Print Language: Uzbek Care Plan Goals: restore fxn to left hip Health Concerns: none Plan of Treatment: Physical Therapy for total hip arthroplasty: posterior precautions, gait training, ROM, strength Limit stair climbing No showering, no tub bath-keep dressing clean, dry and intact No driving x6 weeks Continue ASA tabs x 6 weeks Follow up with [facility] Orthopedics in 2 weeks Assessment: stable for d/c
--- NOTE | 2023-08-29 13:20 | W.MHC.F2F ---
Service Date Service Date: 08/29/23 Encounter Date of encounter: 08/29/23 Reasons for Services Signs and symptoms assessed: s/p LTHA Pt. is considered homebound due to recent surgery. Unable to drive, poor balance, poor gait mechanics. Reason for physical therapy: home safety and mobility, therapeutic exercises, restore joint function, gait/transfer training, assess need for DME and ADL training Reason for occupational therapy: home safety and mobility, therapeutic exercises, restore joint function, gait/transfer training, assess need for DME and ADL training Homebound: Leaving the home is medically contraindicated at this time without the asist of a device and/or another person due th the listed conditions above and below. Reason homebound: unsteady gait / fall risk, leg weakness, pain with ambulation, pain with transfers, poor balance / fall risk and unable to drive Certification: Based on the above findings, I certify that this patient is confined to the home and needs intermittent senior care care, physical therapy and/or speech therapy, or continues to need occupational therapy. The patient is under my care, and I have initiated the establishment of the plan of care. The patient will be followed by a physician who will periodically review the plan of care. Time Spent With Patient Time: Total time managing care of this patient today ____ minutes.
--- NOTE | 2023-08-29 13:44 | PHA.MEDREC ---
Pharmacy Consult ? Medication Reconciliation Pharmacy has completed the medication reconciliation.
[2023-08-29] MEDS: ceFAZolin Sodium/Dextrose,Iso 2 GM/50 ML PIGGYBACK IV (14:14)
[2023-08-29 16:49] LABS: Glucose, Whole Blood 249 mg/dL (60-115)
[2023-08-29] MEDS: oxyCODONE HCl Immed Release 5 MG TABLET PO (17:36)
[2023-08-29 20:29] LABS: Glucose, Whole Blood 166 mg/dL (60-115)
[2023-08-29] MEDS: hydrOXYzine HCL 50 MG TABLET PO (20:41)
[2023-08-29] MEDS: Acetaminophen 325 MG TABLET 650 MG PO (20:42)
[2023-08-29] MEDS: Insulin Lispro 100 UNIT/ML 3 ML VIAL SUBCUT (20:42)
--- NOTE | 2023-08-29 22:33 | HO.SKINPHOTO ---
Location: Buttock Category: Stage: Length: Width: Depth: cm Location: Buttocks Category: Stage: Length: Width: Depth: cm Location: Buttocks Category: Stage: Length: Width: Depth: cm Location: Category: Stage: Length: Width: Depth: cm Location: Category: Stage: Length: Width: Depth: cm Location: Category: Stage: Length: Width: Depth: cm
[2023-08-30] VITALS (8 sets, daily range): BP systolic 92–158; BP diastolic 50–82; PULSE 67–90; RESP 16–18; TEMP 36.1–37; O2SAT 95–98
[2023-08-30] MEDS: TiZANidine HCL 4 MG TABLET PO ×3 (00:01→15:57)
[2023-08-30] MEDS: HYDROmorphone HCl 0.5 MG/0.5 ML SYRINGE 0.25 MG IVPUSH ×2 (00:02→17:37)
[2023-08-30 05:41] LABS: MANUAL DIFF FLAG NO
[2023-08-30 05:49] LABS: Basophils Percent Auto 0.3 % (0-2); Eosinophils Percent Auto 0.4 % (0-4); Hematocrit 25.6 % (37.0-47.0); Hemoglobin 8.6 g/dl (12.0-16.0); Imm Gran Abs Auto 0.03 X10*3/uL (0.00-0.03); Imm Gran Pct Auto 0.4 % (0.0-0.4); Lymphocytes Absolute Auto 0.9 X10*3/uL (1.2-4.9); Mean Corpuscular HGB Conc 33.6 g/dl (31.0-35.0); Mean Corpuscular Hemoglobin 30.7 pg (27.0-33.0); Mean Corpuscular Volume 91.4 fL (80.0-98.0); Mean Platelet Volume 10.9 fL (9.4-12.3); Monocytes Absolute Auto 0.7 X10*3/uL (0.1-1.2); Monocytes Percent Auto 8.9 % (2-11); Neutrophils Absolute Auto 5.8 x10*3/uL (2.0-8.3); Platelet Count 154 X10*3/uL (160-400); Red Cell Distribution Width 14.9 % (11.0-16.0); White Blood Count 7.4 X10*3/uL (4.8-10.8)
[2023-08-30 06:03] LABS: Anion Gap 13 (12-20); Blood Urea Nitrogen 18 mg/dL (9-16); Calcium 8.6 mg/dL (8.4-10.2); Carbon Dioxide 19 mmol/L (22-29); Chloride 113 mmol/L (96-108); Creatinine Clr Calc Pharmacy 35.4; Estimated Glomerular Filt Rate 44; Glucose Fasting 108 mg/dL (60-99); Sodium 141 mmol/L (135-145)
[2023-08-30] MEDS: oxyCODONE HCl Immed Release 5 MG TABLET PO ×2 (06:17→14:17)
[2023-08-30] MEDS: Aspirin 325 MG TABLET PO ×2 (07:05→20:02)
[2023-08-30] MEDS: oxyCODONE HCl ER 10 MG TAB.ER.12H PO ×2 (07:05→20:03)
[2023-08-30] MEDS: Thiamine HCL 100 MG TABLET PO (07:06)
[2023-08-30] MEDS: Docusate Sodium 100 MG CAPSULE PO ×2 (07:06→20:02)
[2023-08-30] MEDS: hydrOXYzine HCL 50 MG TABLET PO ×2 (07:06→20:02)
[2023-08-30 07:09] LABS: Glucose, Whole Blood 94 mg/dL (60-115)
--- NOTE | 2023-08-30 07:48 | PM.PNORT ---
Subjective Subjective Date of Service: 08/30/23 Interval history: POD1 s/p left total hip arthroplasty Patient is resting in bed comfortably No overnight events Reports pain and left lower extremity muscle spasms Physical Exam Vital Signs: Vital Signs: Last Vital Signs Temp 98 F 08/30/23 06:54 Pulse 77 08/30/23 06:54 Resp 16 08/30/23 06:54 BP 140/66 H 08/30/23 06:54 Pulse Ox 97 08/30/23 06:54 O2 Del Method Room Air 08/30/23 06:54 O2 Flow Rate 1 08/29/23 12:29 BMI result Body Mass Index 24.1 Const: General: cooperative, healthy appearing and no acute distress Resp: Effort & Inspection: normal respiratory effort and able to speak in complete sentences Cardio: Rate: regular rate Peripheral pulses: Peripheral pulses 2+ throughout GI: Palpation (GI): Soft to palpation Skin: Lesions: no lesions Rashes: no rashes Extrem: Other: Left hip dressing is c/d/i. Able to dorsi/plantar flex. Calf is supple and nontender. Sensation intact. Pedal pulse intact. Procedures Date of Service Date of Service: 08/30/23 Progress Note: A&P Assessment and plan (1) Status post total hip replacement, left: Status: Acute Plan Continue pain mgmnt Begin ASA for dvt ppx begin PT/OT for LTHA Dispo planning-Pending PT eval, pain mgmnt Time Spent With Patient Time: Total time managing care of this patient today ____ minutes. Quality Stroke Does the patient have a stroke diagnosis?: No VTE Prior VTE?: No VTE Risk Level:: Medical - moderate - high VTE Device Contraindication: N/A - Device Ordered VTE Drug Contraindication: N/A - Med Ordered
[2023-08-30] MEDS: Acetaminophen 325 MG TABLET 650 MG PO (09:12)
[2023-08-30] MEDS: Lactated Ringers 1,000 ML 100 ML IVCONT (09:14)
--- NOTE | 2023-08-30 10:27 | MHC.CM.PN ---
IMM/ DELIVERED PT LIVES WITH GRANDCHILD. PT USES WALKER (WHEELED) FOR MAJOR MOBILITY. +HCP, COPY AT HOME AND REQUESTED. PCP DR. Kesha ALFARO DP: HOME WITH NEW [facility] FOR PT/OT SERVICES. PT HAS OWN RIDE HOME. CM WILL CONTINUE TO FOLLOW FOR ANY CHANGE TO DC PLAN/NEEDS.
[2023-08-30 11:05] LABS: Glucose, Whole Blood 135 mg/dL (60-115)
--- NOTE | 2023-08-30 15:03 | HO.POSTANES ---
Post Anesthesia Evaluation Post Anesthesia Evaluation Date of Service: 08/30/23 Vital Signs: Vital Signs Temp Pulse Resp BP Pulse Ox O2 Del Method 08/30/23 12:00 97.9 F 82 17 113/60 98 Room Air 08/30/23 06:54 98 F 77 16 140/66 H 97 Room Air 08/30/23 04:40 98.6 F 75 16 96 Room Air 08/30/23 04:20 92/50 L Anesthesia: General Endotracheal-GETA Mental Status: Awake Pain Control: Satisfactory Nausea/Vomiting: None Hydration: Adequate Anesthesia-Related Issues: No Anes. Related Issues
[2023-08-30] MEDS: 0.9 % Sodium Chloride Flush 3 ML SYRINGE IVFLUSH ×2 (15:54→20:09)
[2023-08-30 16:22] LABS: Glucose, Whole Blood 134 mg/dL (60-115)
[2023-08-30 19:20] LABS: Glucose, Whole Blood 192 mg/dL (60-115)
[2023-08-30] MEDS: Insulin Lispro 100 UNIT/ML 3 ML VIAL SUBCUT (20:04)
[2023-08-31] MEDS: oxyCODONE HCl Immed Release 5 MG TABLET PO ×2 (01:19→12:11)
[2023-08-31] MEDS: Acetaminophen 325 MG TABLET 650 MG PO ×2 (01:19→12:11)
[2023-08-31 02:20] VITALS: RESP 18
[2023-08-31 03:17] VITALS: BP 119/57; PULSE 81; RESP 18; TEMP 36.4; O2SAT 96
[2023-08-31 05:43] LABS: MANUAL DIFF FLAG NO
[2023-08-31 05:48] LABS: Basophils Absolute Auto 0.1 X10*3/uL (0.0-0.2); Basophils Percent Auto 0.6 % (0-2); Eosinophils Absolute Auto 0.1 X10*3/uL (0.0-0.4); Eosinophils Percent Auto 1.4 % (0-4); Hematocrit 28.1 % (37.0-47.0); Hemoglobin 9.4 g/dl (12.0-16.0); Imm Gran Abs Auto 0.05 X10*3/uL (0.00-0.03); Imm Gran Pct Auto 0.6 % (0.0-0.4); Lymphocytes Percent Auto 11.5 % (20-40); Mean Corpuscular HGB Conc 33.5 g/dl (31.0-35.0); Mean Corpuscular Hemoglobin 30.8 pg (27.0-33.0); Mean Corpuscular Volume 92.1 fL (80.0-98.0); Mean Platelet Volume 10.6 fL (9.4-12.3); Monocytes Percent Auto 11.5 % (2-11); Neutrophils Absolute Auto 6.8 x10*3/uL (2.0-8.3); Neutrophils Percent Auto 74.4 % (45-73); Platelet Count 177 X10*3/uL (160-400); Red Blood Count 3.05 X10*6/uL (4.20-5.50); White Blood Count 9.1 X10*3/uL (4.8-10.8)
[2023-08-31 06:08] LABS: Anion Gap 11 (12-20); Blood Urea Nitrogen 17 mg/dL (9-16); Calcium 9.5 mg/dL (8.4-10.2); Carbon Dioxide 25 mmol/L (22-29); Chloride 111 mmol/L (96-108); Creatinine Clr Calc Pharmacy 42.3; Estimated Glomerular Filt Rate 55; Glucose Fasting 110 mg/dL (60-99); Potassium 4.1 mmol/L (3.3-5.1); Sodium 143 mmol/L (135-145)
[2023-08-31 07:35] LABS: Glucose, Whole Blood 87 mg/dL (60-115)
[2023-08-31 07:43] VITALS: BP 164/72; PULSE 92; RESP 17; TEMP 37.1; O2SAT 96
[2023-08-31] MEDS: 0.9 % Sodium Chloride Flush 3 ML SYRINGE IVFLUSH (08:32)
[2023-08-31] MEDS: Docusate Sodium 100 MG CAPSULE PO (08:32)
[2023-08-31] MEDS: oxyCODONE HCl ER 10 MG TAB.ER.12H PO (08:33)
[2023-08-31] MEDS: Thiamine HCL 100 MG TABLET PO (08:33)
[2023-08-31] MEDS: Aspirin 325 MG TABLET PO (08:33)
[2023-08-31 08:34] VITALS: RESP 18
[2023-08-31] MEDS: hydrOXYzine HCL 50 MG TABLET PO (08:34)
[2023-08-31] MEDS: HYDROmorphone HCl 0.5 MG/0.5 ML SYRINGE 0.25 MG IVPUSH (08:34)
--- NOTE | 2023-08-31 09:03 | MHC.CM.PN ---
EMR reviewed. Patient medically cleared for dc home w/ new [facility]. Patient's family will transport home at 1130. RN aware.
[2023-08-31 11:09] LABS: Glucose, Whole Blood 127 mg/dL (60-115)
[2023-08-31 11:45] VITALS: BP 171/81; PULSE 93; RESP 18; TEMP 36.4; O2SAT 97
--- OUTSIDE RECORDS SUMMARY | 2023-09-01 09:39 | XMS_ITS | Continuity of Care Document ---
Author Organization [facility] ter Address [address] [place] [id number]- Care Team Providers Care Technical Project Coordinator Name Role Phone Forrest BENNETT MD, Ayan Esqueda Primary Care Physician Encounter [facility] ACCT R [id number] Date(s): 08/29/22 - 11/06/[address] [id number] Attending Physician: Alexis Campbell MD Referring Physician: Alexis Campbell MD Allergies, Adverse Reactions, Alerts Substance Reaction Severity Status sulfADIAZINE swell up Active metFORMIN Active Immunizations Given and Recorded Vaccine Date Status Refusal Reason SARS-CoV-2 (COVID-19) mRNA-1273 vaccine 06/23/20 G iven SARS-CoV-2 (COVID-19) mRNA-1273 vaccine 05/26/20 G iven Medications acetaminophen 650 mg oral tablet, extended release TAKE ONE TABLET EVERY 8 HOURS NEEDED FOR PAIN Start Date: 11/01/22 Status: Ordered atorvastatin 20 mg oral tablet TAKE ONE TABLET AT BEDTIME Start Date: 11/01/22 Status: Ordered azelastine 137 mcg/inh (0.1%) nasal spray USE TWO SPRAYS IN EACH NOSTRIL TWICE DAILY Start Date: 11/01/22 Status: Ordered baclofen 10 mg tablet baclofen 10 mg tablet, TAKE ONE TABLET TWICE DAILY Start Date: 11/01/22 Status: Ordered cetirizine 10 mg oral tablet TAKE ONE TABLET DAILY Start Date: 11/01/22 Status: Ordered cholecalciferol (vitamin D3) 25 mcg (1,000 unit) tablet cholecalciferol (vitamin D3) 25 mcg (1,000 unit) tablet, TAKE ONE TABLET DAILY Start Date: 11/01/22 Status: Ordered diclofenac 1% topical gel APPLY 2 GRAM'S TO AFFECTED AREA(s) TWICE DAILY NEEDED Start Date: 11/01/22 Status: Ordered hydrOXYzine hydrochloride 25 mg oral tablet TAKE ONE TABLET BY MOUTH EVERY EVENING Start Date: 11/01/22 Status: Ordered ibuprofen 800 mg oral tablet TAKE ONE TABLET EVERY 8 HOURS NEEDED FOR PAIN Start Date: 11/01/22 Status: Ordered tihgbmacyjuv-kfoqbcfn-zorn fumarate 7.5 mg-folic acid 400 mcg tablet qolhdwkjbdwp-sqepnoqr-wfnm fumarate 7.5 mg-folic acid 400 mcg tablet, Take 1 Tablet by mouth daily. Start Date: 11/01/22 Status: Ordered nystatin topical 290262 u/gm cream APPLY TO THE AFFECTED AREA(S) THREE TIMES DAILY Start Date: 11/01/22 Status: Ordered Ozempic 8 mg/3 mL (2 mg dose) subcutaneous solution INJECT 2mg's SUBCUTANEOUSLY ONCE WEEKLY Start Date: 11/01/22 Status: Ordered Total B with C oral tablet TAKE ONE TABLET BY MOUTH EVERY DAY Start Date: 11/01/22 Status: Ordered Trelegy Ellipta inhalation powder INHALE ONE PUFFS BY MOUTH into lungs EVERY DAY, RINSE MOUTH AFTER USE Start Date: 11/01/22 Status: Ordered Ventolin HFA 108 mcg/inh inhalation aerosol with adapter INHALE TWO PUFFS EVERY 6 HOURS NEEDED FOR COUGH OR FOR WHEEZING Start Date: 11/01/22 Status: Ordered Vitamin B-12 1000 mcg oral tablet TAKE ONE TABLET BY MOUTH EVERY DAY Start Date: 11/01/22 Status: Ordered Vitamin B1 100 mg oral tablet TAKE ONE TABLET BY MOUTH EVERY DAY Start Date: 11/01/22 Status: Ordered Problem List Condition Confirmation Course Effective Dates Status H ealth Status Informant Asthma-COPD overlap syndrome Confirmed Active Hyperlipidemia Confirmed Active Chronic sacroiliac joint pain Confirmed Active Diabetes mellitus due to underlying condition with diabetic neuropathy, unspecified Confirmed Active History and physical note * Event Display: History and Physical Hospital Authored Date: Patient Care team information Care Team Personnel Name: Ayan Clayton III, MD Position: Reference Physician Member Role: PCP Address: Address: [address] [place] [id number]- Name: Bryan Larios RN Position: S RN Member Role: Primary Care Nurse Care Team Related Persons Name: KRISHNA QUEEN Address: [place] [address] Name: JUAN DAVID SMITH Address: home [address] [address] Name: BOOM SMITH Address: home [address] [address]
--- OUTSIDE RECORDS SUMMARY | 2023-09-01 09:39 | XMS_ITS | Continuity of Care Document ---
Author Organization [facility] ter Address [address] [place] [id number]- Care Team Providers Care Vascular Physician Name Role Phone Forrest BENNETT MD, Ayan Esqueda Primary Care Physician [phone] Encounter [facility] [place] ACCT R [id number] Date(s): 06/13/23 - 07/16/[address] [address] Attending Physician: Vega Garcia MD Admitting Physician: Vega Garcia MD Referring Physician: Vega Garcia MD Allergies, Adverse Reactions, Alerts Substance Reaction Severity Status sulfADIAZINE swell up Active sulfa drugs swelling, shortness of breath Active metFORMIN GI Upset Active Immunizations Given and Recorded Vaccine Date Status Refusal Reason SARS-CoV-2 (COVID-19) mRNA-1273 vaccine 06/23/20 G iven SARS-CoV-2 (COVID-19) mRNA-1273 vaccine 05/26/20 G iven Medications acetaminophen 325 mg oral tablet 975 mg, By Mouth, 3 times a day, for 30 days, Temperature Greater than 100.5, # 270 tablet, Refills0, Tot. Refills 0, Acute 07/18/23 12:20:00 EDT, 06/18/23 12:20:00 EDT, Route to Pharmacy Electronically, [facility] #[id number], Partial fill upon... Start Date: 06/18/23 Stop Date: 07/18/23 Status: Ordered azelastine 137 mcg/inh (0.1%) nasal spray USE TWO SPRAYS IN EACH NOSTRIL TWICE DAILY Start Date: 11/01/22 Status: Ordered baclofen 10 mg tablet baclofen 10 mg tablet, TAKE ONE TABLET TWICE DAILY Start Date: 11/01/22 Status: Ordered calcitonin 200 iu/inh nasal spray See Instructions, 1 sprays Naris, alternate nostrils, # 1 each, 0 Refills, Maintenance, 06/18/23 12:22:00 EDT, [facility] #[id number], Partial fill upon patient request if the prescription is for a schedule II opioid drug., 152, cm, 06/17/23 4:04... Start Date: 06/18/23 Status: Ordered cetirizine 10 mg oral tablet 1 tablet = 10 mg, By Mouth, Daily, TAKE ONE TABLET DAILY Start Date: 11/01/22 Status: Ordered cholecalciferol (vitamin D3) 25 mcg (1,000 unit) tablet cholecalciferol (vitamin D3) 25 mcg (1,000 unit) tablet, TAKE ONE TABLET DAILY Start Date: 11/01/22 Status: Ordered diclofenac 1% topical gel APPLY 2 GRAM'S TO AFFECTED AREA(s) TWICE DAILY NEEDED Start Date: 11/01/22 Status: Ordered Docusate Sodium Capsule 100 mg, 1, capsule, By Mouth, 2 times a day, Refills 0, Maintenance, 11/21/22 13:30:00 EDT, Partialfill upon patient request if the prescription is for a schedule II opioid drug. Start Date: 11/21/22 Status: Ordered hydrOXYzine hydrochloride 50 mg oral tablet TAKE ONE TABLET TWICE DAILY FOR 10 DAYS Start Date: 06/11/23 Status: Ordered lansoprazole 15 mg oral tablet, disintegrating = 15 mg, By Mouth, Daily, # 14 each, 0 Refills, Maintenance, 06/18/23 12:23:00 EDT, DIS Tablet, [facility] #[id number], 152, cm, 06/17/23 4:04:00 EDT, Height, 63, kg, 06/11/23 11:32:00 EDT, Dry Weight Start Date: 06/18/23 Stop Date: 07/02/23 Status: Ordered szvtqflxxldv-xtkfnoqo-cbdn fumarate 7.5 mg-folic acid 400 mcg tablet lishetrydzqw-gsqkoenm-aufr fumarate 7.5 mg-folic acid 400 mcg tablet, Take 1 Tablet by mouth daily. Start Date: 11/01/22 Status: Ordered nystatin topical 335369 u/gm cream APPLY TO THE AFFECTED AREA(S) THREE TIMES DAILY Start Date: 11/01/22 Status: Ordered Ozempic 8 mg/3 mL (2 mg dose) subcutaneous solution Every Monday, INJECT 2mg's SUBCUTANEOUSLY ONCE WEEKLY Start Date: 11/01/22 Status: Ordered Total B with C oral tablet TAKE ONE TABLET BY MOUTH EVERY DAY Start Date: 11/01/22 Status: Ordered Trelegy Ellipta inhalation powder 1 puffs, Inhalation, Daily, PRN Wheezing/Shortness of Breath, INHALE ONE PUFFS BY MOUTH into lungs EVERY DAY, RINSE MOUTH AFTER USE Start Date: 11/01/22 Status: Ordered Ventolin HFA 108 mcg/inh inhalation aerosol with adapter INHALE TWO PUFFS EVERY 6 HOURS NEEDED FOR COUGH OR FOR WHEEZING Start Date: 11/01/22 Status: Ordered Vitamin B-12 1000 mcg oral tablet 1,000 mcg, 1, tablet, By Mouth, Daily, TAKE ONE TABLET BY MOUTH EVERY DAY Start Date: 11/01/22 Status: Ordered Vitamin B1 100 mg oral tablet 100 mg, 1, tablet, By Mouth, Daily, TAKE ONE TABLET BY MOUTH EVERY DAY Start Date: 11/01/22 Status: Ordered Vitamin D3 5000 intl units oral tablet 1 tablet = 5,000 International_Units, By Mouth, Daily, # 30 tablet, 0 Refills, Maintenance, 11/22/22 6:58:00 EDT, Tablet, Partial fill upon patient request if the prescription is for a schedule II opioid drug. Start Date: 11/22/22 Status: Ordered Problem List Condition Confirmation Course Effective Dates Status H ealth Status Informant Asthma-COPD overlap syndrome Confirmed Active Hyperlipidemia Confirmed Active Chronic sacroiliac joint pain Confirmed Active Diabetes mellitus due to underlying condition with diabetic neuropathy, unspecified Confirmed Active Social History Social History Type Response Smoking Status Former smoker, quit more than 30 days ago entered on: 06/10/23 Sex Implantable Device List Procedure Provider Procedure Date Device Type Site Bone Graft Calcaneal Alexis Campbell MD 11/21/22 Unknown Arm Right Device Identifier Serial Number Lot or Batch Number Manufacturing Date Expiration Date Distinct Identification Code MRI Safety Implantable Status Assigning Authority [id number] Unknown 01/22/24 Unknown Unknown Active GS1 Patient Care team information Care Team Personnel Name: Ayan Clayton III, MD Position: Reference Physician Member Role: PCP Address: Address: [address] [place] [id number] Name: Bryan Larios RN Position: S RN Member Role: Primary Care Nurse Name: Tati Burnett RN Position: S RN Member Role: Primary Care Nurse Name: José Miguel Rodas RN Position: S RN Member Role: Primary Care Nurse Name: Natasha Lopez RN Position: S RN Member Role: Primary Care Nurse Name: Yuliya Younger Position: S RN Member Role: Primary Care Nurse Care Team Related Persons Name: KRISHNA QUEEN Address: [place] [address] Name: JUAN DAVID SMITH Address: home [address] [place] [id number] Name: BOOM SMITH Address: [address] [address]
--- OUTSIDE RECORDS SUMMARY | 2023-09-01 09:39 | XMS_ITS | Continuity of Care Document ---
Author Organization [facility] Address [address] [place] [id number]- Care Team Providers Care Technology Trainer Name Role Phone Forrest BENNETT MD, Ayan Esqueda Primary Care Physician [phone] Encounter [facility] [place] Date(s): 12/09/20 - 01/08/21 [facility] [address] [place] [id number]- Allergies, Adverse Reactions, Alerts Substance Reaction Severity Status sulfADIAZINE swell up Active metFORMIN Active Immunizations Given and Recorded Vaccine Date Status Refusal Reason SARS-CoV-2 (COVID-19) mRNA-1273 vaccine 06/23/20 G iven SARS-CoV-2 (COVID-19) mRNA-1273 vaccine 05/26/20 G iven Medications (Vitamin D3) Cholecalciferol 400 LONG-TERM units/mL oral syringe 1 mL = 400 International_Units, By Mouth, Daily, 0 Refills, Maintenance, 02/02/19 15:05:23 EST Start Date: 02/02/19 Status: Ordered Acetaminophen = 1,000 mg, By Mouth, Daily at bedtime, 0 Refills, Maintenance, 02/02/19 15:06:51 EST Start Date: 02/02/19 Status: Ordered baclofen 10 mg oral tablet 10 mg, 1, tablet, By Mouth, 2 times a day, # 90 tablet, Refills 0, Maintenance, 02/02/19 15:04:24 EST Start Date: 02/02/19 Status: Ordered Betamethasone Dipropionate 0.05% Topical Topically, 2 times a day, 0 Refills, Maintenance Start Date: 08/17/16 Status: Ordered cetirizine 10 mg oral tablet 1 tablet = 10 mg, By Mouth, Daily, # 90 tablet, 0 Refills, Maintenance, 02/02/19 15:08:55 EST, Tablet Start Date: 02/02/19 Status: Ordered cyanocobalamin 1000 mcg oral tablet 1,000 mcg, By Mouth, Daily, # 30 tablet, Refills 2, Tot. Refills 2, Maintenance, 02/06/19 15:27:10 EST, Route to Pharmacy Electronically, [facility]_[id number], [facility] Start Date: 02/06/19 Status: Ordered hydrOXYzine hydrochloride 10 mg oral tablet 1 tablet = 10 mg, By Mouth, Daily at bedtime, PRN Insomnia, 0 Refills, Maintenance, 02/03/19 4:29:57 EST Start Date: 02/03/19 Status: Ordered Ibuprofen 800 mg, By Mouth, 3 times a day, prn for pain, Refills 0, Maintenance, 12/22/15 9:10:14 Start Date: 12/22/15 Status: Ordered labs labs, See Instructions, # 1 each, Refills 0, Tot. Refills 0, Maintenance, please check BMP on 02/11/19 and send results to Dr Daniel Mota, 02/06/19 15:29:13 EST, Compound Start Date: 02/06/19 Status: Ordered Lantus 100 u/ml subcutaneous solution = 10 units, Subcutaneous Injection, Daily at bedtime, # 10 mL, 0 Refills, Maintenance, 12/22/15 9:10:05 EDT, Solution Start Date: 12/22/15 Status: Ordered multivitamin with minerals Multiple Vitamins with Minerals oral tablet 1 tablet, By Mouth, Daily, # 30 tablet, 2 Refills, Maintenance, 02/06/19 15:28:00 EST, Tablet, 1 tablet By Mouth Daily Start Date: 02/06/19 Status: Ordered Physical therapy, outpatient Physical therapy, outpatient, See Instructions, # 1 each, Refills 0, Tot. Refills 0, Maintenance, ROM, Strengthening, Other: Back pain - for improved pain and ambulation, 02/06/19 15:44:34 EST, Compound Start Date: 02/06/19 Status: Ordered thiamine 100 mg oral tablet 100 mg, By Mouth, Daily, # 30 tablet, Refills 2, Tot. Refills 2, Maintenance, 02/06/19 15:28:14 EST, Route to Pharmacy Electronically, NCPDP_[id number], [facility] Start Date: 02/06/19 Status: Ordered Problem List Condition Effective Dates Status Health Status Inform ant Morbid obesity(Confirmed) Active Chronic sacroiliac joint pain(Confirmed) Active Diabetes mellitus due to und erlying condition with diabetic neuropathy, unspecified(Confirmed) Active
--- OUTSIDE RECORDS SUMMARY | 2023-09-01 09:39 | XMS_ITS | Continuity of Care Document ---
Author Organization [facility] ter Address [address] [place] [id number] Care Team Providers Care General Ophthalmologist Name Role Phone Forrest BENNETT MD, Ayan Esqueda Primary Care Physician Encounter [facility] ACCT R [id number] Date(s): 11/21/22 - 11/22/[address] [id number] Discharge Disposition: A-D/C Home Attending Physician: Alexis Campbell MD Admitting Physician: Alexis Campbell MD Referring Physician: Alexis Campbell MD Allergies, Adverse Reactions, Alerts Substance Reaction Severity Status sulfADIAZINE swell up Active sulfa drugs swelling, shortness of breath Active metFORMIN GI Upset Active Immunizations Given and Recorded Vaccine Date Status Refusal Reason SARS-CoV-2 (COVID-19) mRNA-1273 vaccine 06/23/20 G iven SARS-CoV-2 (COVID-19) mRNA-1273 vaccine 05/26/20 G iven Medications acetaminophen 650 mg oral tablet, extended release 1 tablet = 650 mg, By Mouth, Every 8 hours, PRN Pain , Moderate, TAKE ONE TABLET EVERY 8 HOURS NEEDED FOR PAIN Start Date: 11/01/22 Status: Ordered Aspirin Tablet 325 mg, By Mouth, Daily, Refills 0, Maintenance, 11/21/22 13:30:00 EDT, Partial fill upon patient request if the prescription is for a schedule II opioid drug. Start Date: 11/21/22 Status: Ordered atorvastatin 20 mg oral tablet 1 tablet = 20 mg, By Mouth, Daily at bedtime, TAKE ONE TABLET AT BEDTIME Start Date: [...] opioid drug. Start Date: 11/21/22 Status: Ordered HYDROmorphone Inj 1 mg, Injection, IV Push Slowly, Every 3 hours, PRN for Pain , Severe, Routine, 11/21/22 13:08:00 EDT Start Date: 11/21/22 Stop Date: 11/28/22 Status: Ordered HydrOXYzine HCL Tablet = 10 mg, By Mouth, 2 times a day, 0 Refills, Maintenance, 11/18/22 10:04:00 EDT, Partial fill upon patient request if the prescription is for a schedule II opioid drug. Start Date: 11/18/22 Status: Ordered hydrOXYzine hydrochloride 25 mg oral tablet 1 tablet = 25 mg, By Mouth, Daily at bedtime, TAKE ONE TABLET BY MOUTH EVERY EVENING Start Date: 11/01/22 Status: Ordered gnhtbdmewwze-bnqgytlb-tjrt fumarate 7.5 mg-folic acid 400 mcg tablet liqcfsmhjcjc-jraxvreb-kurb fumarate 7.5 mg-folic acid 400 mcg tablet, Take 1 Tablet by mouth daily. Start Date: 11/01/22 Status: Ordered nystatin topical 930186 u/gm cream APPLY TO THE AFFECTED AREA(S) THREE TIMES DAILY Start Date: 11/01/22 Status: Ordered oxyCODONE 5 mg oral tablet 5 mg, By Mouth, Every 4 hours, PRN, Refills 0, Tot. Refills 0, Maintenance, Pain , Mild, 11/21/22 13:30:00 EDT, Partial fill upon patient request if the prescription is for a schedule II opioid drug. Start Date: 11/21/22 Status: Ordered OxyCODONE IR Tablet 5 mg, Tablet, By Mouth, Every 4 hours, PRN for Pain , Mild, Routine, 11/21/22 13:08:00 EDT Start Date: 11/21/22 Stop Date: 11/28/22 Status: Ordered Ozempic 8 mg/3 mL (2 [...] condition with diabetic neuropathy, unspecified Confirmed Active Vital Signs Most recent to oldest [Reference Range]: 1 2 3 Height 153 cm (11/22/22 11:59 AM) 153 cm (11/22/22 7:45 AM) 153 cm (11/22/22 3:22 AM) Weight 66.6 kg (11/21/22 9:38 AM) 66 kg (11/18/22 10:41 AM) Oxygen Saturation [94-100 %] 94 % (11/22/22 11:59 AM) 99 % (11/22/22 7:45 AM) 95 % (11/22/22 3:22 AM) Pulse Rate [55-90 bpm] 72 bpm (11/22/22 11:59 AM) 62 bpm (11/22/22 7:45 AM) 65 bpm (11/22/22 3:22 AM) Body Mass Index [18.5-24.99 kg/m2] 28.45 kg/m2 *H* (11/21/22 9:38 AM) 28.19 kg/m2 *H* (11/18/22 10:41 AM) Blood Pressure [90-138/55-84 mm Hg] 114/68mm Hg (11/22/22 11:59 AM) 135/70mm Hg (11/22/22 7:45 AM) 122/72mm Hg (11/22/22 3:22 AM) Respiratory Rate [16-30 br/min] 16 br/min (11/22/22 2:54 PM) 18 br/min (11/22/22 12:02 PM) 18 br/min (11/22/22 11:59 AM) Temperature [96.8-100.4 DegF] 98.8 DegF (11/22/22 11:59 AM) 98.0 DegF (11/22/22 7:45 AM) 98.5 DegF (11/22/22 3:22 AM) Liters per Minute 2 L/min (11/21/22 1:00 PM) 6 L/min (11/21/22 12:30 PM) 2 L/min (11/21/22 10:35 AM) Mode of Delivery (Oxygen) Room air (11/22/22 11:59 AM) Room air (11/22/22 7:45 AM) Room air (11/22/22 3:22 AM) Blood pressure sites Arm, right (11/22/22 11:59 AM) Arm, right (11/22/22 7:45 AM) Arm, right (11/22/22 3:22 AM) Temperature Route Oral (11/22/22 11:59 AM) Oral (11/22/22 7:45 AM) Oral (11/22/22 3:22 AM) Dry Weight 66.6 kg (11/21/22 9:38 AM) 66 kg (11/18/22 10:41 AM) Weight Obtained Via Standing scale (11/21/22 9:38 AM) Patient/family stated (11/18/22 10:41 AM) Dry Weight Obtained Via Patient/family s tated (11/18/22 10:41 AM) Implantable Device List Procedure Provider Procedure Date Device Type Site Bone Graft Calcaneal Alexis Campbell MD 11/21/22 Unknown Arm Right Device Identifier Serial Number Lot or Batch Number Manufacturing Date Expiration Date Distinct Identification Code MRI Safety Implantable Status Assigning Authority [id number] Unknown 01/22/24 Unknown Unknown Active 1 Hospital Progress note * Alexis Campbell MD: PERFORM Event Display: Progress Note Hospital Authored Date: [id number] Patient: ??LUIS, LEIDA ? Age:??66 Years?Sex:??Female?:??1955?? Subjective Patient comfortable this morning. No overnight events/complaints. She is urinating without difficulty. Physical Exam Vitals & Measurements T:??98.5?F?? HR:??65??(Peripheral)?? RR:??18?? BP:??122/72?? SpO2:??95%?? HT:??153??cm?? WT:??66.6??kg?? BMI:??28.45?? RLE: splint clean/dry/intact, decreased sensation in toes, able to flex/extend toes, toes warm/well-perfused with brisk capillary refill Assessment/Plan POD#1 s/p right ankle arthrodesis, ORIF of distal tibial nonunion, calcaneal bone graft harvest 1) PT/OOB 2) NWB/elevate RLE 3) Ecotrin for DVT prophylaxis 4) Tight glycemic control 5) Discharge plan - to home with services versus rehab/SNF depending on PT assessment. I filled outa prescription for a wheelchair this morning. Intake and Output Intake and Output Results?? This visit (24 hour periods starting at 07:00 EDT)? 11/21/22 *?? 11/20/22?? 11/19/22?? Total Summary?Intake mL?? 354.667?? --?? --?Output mL?? 300?? --?? --?Fluid Balance ?? 54.667?? --?? --?? Intake (2)?Lactated Ringers Injection 1,000 mL mL?? 234.667?? --?? --?Oral Fluids mL?? 120?? --?? --?Total?? 354.667?? --?? --?? Output (1)?Urine Voided mL?? 300?? --?? --?Total?? 300?? --?? --?? Counts (2)?Oral Fluids mL?? 120?? --?? --?Urine Voided mL?? 300?? --?? --? * This column has not completed the indicated time period.?? Labs Last 24 Hours No qualifying data available. * Arleth Martinez RN: SIGN, PERFORM, VERIFY Event Display: Progress Note Hospital Authored Date: [id number] Patient: LEIDA SMITH Age: 66 years Sex: Female : 1955 Associated Diagnoses: None Author: Arleth Martinez RN Findings Evaluation Patient AxOx4; denies any dizziness, headache, nausea, SOB, cough, or paresthesia in extremities. Patient endorses severe spasm-like pain in her surgical site (R lower leg) at 10/10; chronic pain in L thigh; and pain in L ribs when taking deep breaths. Pain managed with ice packs; scheduled [id number] mg, PRN Oxycodone 10 mg admin at 2130, and PRN IV Dilaudid for breakthrough pain admin at 1915 and 2319, with + effect. RLE- surgical site- covered with ANTHONY wraps; no drainage noted through the wraps. Extremity elevated on pillows. Extremities warm and dry; no edema noted. Palpable radials and L pedal pulse. Unable to assess for R pedal pulse due to the presence of the splint and thick dressing. Bruising noted on L lower leg. R toes: pink and warm; patient unable to wiggle them and unable to feel touch. Patient afebrile; normotensive. Lung sounds clear; oxygen sats: 95-98% on RA. IS max volume - 18,00 mL; its use and TCDB encouraged. Abdomen soft; non-tender; hypoactive BS. LBM - 11/20/22. Patient voiding on bedside commode. Ambulation status: qpdxk-qps-xhplv to commode; status NWB to RLE maintained. Compression boot on L only. LR infusing at 20 mL/hr, as ordered. Patient able to tolerate PO fluids, as well. Plan: PT, pain management, gentle IV hydration, discharge tomorrow. Bed alert on; call avalos and personal items in reach. For full assessment details, see CIS. Will continue monitoring the patient. . * Bernarda Callahan RN: PERFORM, SIGN, VERIFY Event Display: Progress Note Hospital Authored Date: Patient: LEIDA SMITH Age: 66 years Sex: Female : 1955 Associated Diagnoses: None Author: Bernarda Callahan RN Findings Pt admitted to Obs Unit via PACU s/p surgery. Pt A&Ox4, independent, VSS, c/o 12/04 in RLE-pain meds given as prescribed. Denies dizziness, nausea or vomiting. Home medication review and all assessments completed. Oriented to unit, use of call avalos system, and care team. Call avalos within reach. Pt able to make needs known. Nursing Data Vital Signs : VITAL SIGNS SECTION 11/21/2022 13:15 EDT Temperature 98 DegF Temperature Route Temporal Heart Rate Monitored 74 bpm Respiratory Rate 13 br/min L Systolic Blood Pressure 133 mm Hg Diastolic Blood Pressure 68 mm Hg Blood pressure sites Arm, left Oxygen Saturation 100 % Mode of Delivery (Oxygen) Room air . Note * Daria Azevedo RN: PERFORM Event Display: Discharge/Transfer Note Hospital Authored Date: [id number] Nursing Discharge Note Entered On: 11/22/2022 15:17 EDT Performed On: 11/22/2022 15:16 EDT by Daria Azevedo RN Nursing Discharge Note 2 Discharge Time : 11/22/2022 15:00 EDT Discharge Level of Care at Discharge : Homehealth/VNA Discharge VNA/Hospice/Home Care(v001) : [facility] VNA Patient Left Unit Via : Wheelchair Patient Accompanied Off Unit with : Responsible adult DC Instructions Provided & Signed by Pt : Yes Patient Understands D/C Instructions : Yes Patient Instructions Discharge Signed : Yes Did Pt have Specialty Bed or Wound Vac : No Daria Azevedo RN - 11/22/2022 15:16 EDT * Shannan ROGERS, Alexis De Oliveira: PERFORM, MODIFY, MODIFY Alexis Campbell MD: MODIFY Skylar Douglas: MODIFY Event Display: Discharge/Transfer Note Hospital Authored Date: [id number] Patient: ??LUIS, LEIDA ? Age:??66 Years?Sex:??Female?:??1955?? Admit Date Admission Date: 11/21/2022 Discharge Date 11/22/22 Discharge Diagnoses 1. Right end-stage post-traumatic varus ankle arthritis?? 2. Right medial distal tibial (pilon) fracture-nonunion? Hospital Course The patient is a 66-year-old diabetic woman who has end-stage varus ankle arthritis. 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 She has failed conservative measures including bracing, CAM boot immobilization, and multiple tibiotalar cortisone injections. She quit smoking 15 years ago. She reports good glycemic control. She is here today with her daughter Berta.??This is negatively impacting her quality of life andactivities of daily living. The treatment options were discussed with the patient in detail and sheelected to proceed with operative intervention having signed informed consent. ??I have recommendedright ankle arthrodesis (fusion) and ORIF of medial distal tibial nonunion. ?? Patient underwent right realignment ankle arthrodesis, open reduction internal fixation of rightmedial distal tibial intraarticular nonunion, and right calcaneal autogenous bone graft harvest on 11/21/22. Her hospital course was unremarkable. Objective/Physical Exam on Day of Discharge Vitals & Measurements T:??98?F?? HR:??74??(Monitored)?? RR:??13?? BP:??133/68?? SpO2:??100%?? HT:??153??cm?? WT:??66.6??kg?? BMI:??28.45?? Assessment/Plan 1) Non weight bearing on operative extremity?? 2) Ice/elevate above heart operative extremity?? 3) Ecotrin for 30 days for DVT prophylaxis?? 4) Keep splint clean and dry, do not remove or get wet. 5) Follow-up in 1 weeks at [facility].?? Home Health Face to Face *Denotes mandatory rodriguez ?? *I certify that this patient is under my care and that I or an allowed non- physician working with me had a face to face encounter with the patient on this date:??11/21/2022 14:47 ?? *The encounter with the patient was in whole, or in part, for the following medical condition, which is the primary diagnosis(es) for home health care:? *Select the indications for the discipline/s that are being arranged for this patient. Nursing (select all that apply): [_] None [x] Medication management (reconciliation, teaching)?? [_] Chronic disease management?? [_] Wound care and treatment?? [x] Home safety evaluation [_] Administer SQ/IM/IV medications?? [_] Cath care?? [_] Drain care?? [_] Trach or GT care?? Other _ Occupation Therapy (select all that apply): [_] None [x_] ADL Management [x] Fall prevention training [_] Energy conservation [_] Cognitive training Other _ Physical Therapy (select all that apply): [_] None [X_] Functional mobility training [_X] Home exercise program to strengthen [_] Increase ROM?? [_X] Falls prevention training [_] Home maintenance program for chronic disease Other _ Speech Therapy (select all that apply): [_] None [_] Swallow evaluation and training [_] Speech and language training [_] Cognitive training to process, organize, and/or recall information Other _ ? *Homebound due to (select all that apply): [_] Inability to leave home without assistance/supervision [_X] Inability to ambulate without assistance [_X] Pain [X_] Decreased strength and endurance [_] Unsteady gait [_] Severe SOB and fatigue [_] Impaired transfers [_] Inability to negotiate stairs [_X] Limited weight bearing [_] Mental status change? *Physician Signature: Alexis Campbell MD ?? *By signing this, I certify that I have personally evaluated the patient and agree with the findings and recommendations as documented above. ? thFTF Procedures Performed This Visit Fusion/Arthrodesis Ankle, Right, Ankle Bone Graft Calcaneal, Right, Ankle Open Reduction Internal Fixation Ankle, Right, Ankle Discharge Medications Acetaminophen (acetaminophen 650 mg oral tablet, extended release)?1?tab(s)?650?Milligram?By Mouth?Every 8 hours?as needed?Pain , Moderate?TAKE ONE TABLET EVERY 8 HOURS NEEDED FOR PAIN Albuterol (Ventolin HFA 108 mcg/inh inhalation aerosol with adapter)?INHALE TWO PUFFS EVERY 6 HOURS NEEDED FOR COUGH OR FOR WHEEZING Aspirin (Aspirin Tablet)?325?Milligram?By Mouth?Daily Atorvastatin (atorvastatin 20 mg oral tablet)?1?tab(s)?20?Milligram?By Mouth?Daily at bedtime?TAKE ONE TABLET AT BEDTIME Azelastine Nasal (azelastine 137 mcg/inh (0.1%) nasal spray)?USE TWO SPRAYS IN EACH NOSTRIL TWICE DAILY Cetirizine (cetirizine 10 mg oral tablet)?1?tab(s)?10?Milligram?By Mouth?Daily?TAKE ONE TABLET DAILY Cholecalciferol (Vitamin D3 5000 intl units oral tablet)?1?tab(s)?5,000?International Unit?By Mouth?Daily Cyanocobalamin (Vitamin B-12 1000 mcg oral tablet)?1,000?Microgram?1?tablet?By Mouth?Daily?TAKE ONE TABLET BY MOUTH EVERY DAY Diclofenac Topical (diclofenac 1% topical gel)?APPLY 2 GRAM'S TO AFFECTED AREA(s) TWICE DAILY ASNEEDED Docusate (Docusate Sodium Capsule)?100?Milligram?1?capsule?By Mouth?2 times a day fluticasone/umeclidinium/vilanterol (Trelegy Ellipta inhalation powder)?1?puff(s)?Inhalation?Daily?as needed?Wheezing/Shortness of Breath?INHALE ONE PUFFS BY MOUTH into lungs EVERY DAY, RINSE MOUTH AFTER USE HydrOXYzine (hydrOXYzine hydrochloride 25 mg oral tablet)?1?tab(s)?25?Milligram?By Mouth?Daily at bedtime?TAKE ONE TABLET BY MOUTH EVERY EVENING HydrOXYzine (HydrOXYzine HCL Tablet)?10?Milligram?By Mouth?2 times a day Miscellaneous Rx (bnzysjhvkamu-yicakxfu-qizc fumarate 7.5 mg-folic acid 400 mcg tablet)?Take 1 Tablet by mouth daily. Miscellaneous Rx (cholecalciferol (vitamin D3) 25 mcg (1,000 unit) tablet)?TAKE ONE TABLET DAILY Miscellaneous Rx (baclofen 10 mg tablet)?TAKE ONE TABLET TWICE DAILY Multivitamin (Total B with C oral tablet)?TAKE ONE TABLET BY MOUTH EVERY DAY Nystatin Topical (nystatin topical 484623 u/gm cream)?APPLY TO THE AFFECTED AREA(S) THREE TIMES DAILY Oxycodone (oxyCODONE 5 mg oral tablet)?5?Milligram?By Mouth?Every 4 hours?as needed?Pain , Mild semaglutide (Ozempic 8 mg/3 mL (2 mg dose) subcutaneous solution)?Every Monday?INJECT 2mg's SUBCUTANEOUSLY ONCE WEEKLY Thiamine (Vitamin B1 100 mg oral tablet)?100?Milligram?1?tablet?By Mouth?Daily?TAKE ONE TABLET BY MOUTH EVERY DAY Labs Last 24 Hours No qualifying data available. * Kailyn Newman RN: VERIFY, PERFORM, SIGN Event Display: Case Management Discharge Plan Authored Date: [id number] Patient: LEIDA SMITH Age: 66 years Sex: Female : 1955 Associated Diagnoses: None Author: Kailyn Newman RN Discharge Plan Case Management Discharge Plan : Case Management Discharge Plan Data 11/22/2022 13:13 EDT Discharge Level of Care at Discharge Homehealth/VNA [facility] # Service Categories #1 Occupational Therapy, Physical Therapy, Snf Service Comments #1 You will be discharged home with services through [facility]. You will recieve a call 1-2 days to arrange a visit. Please call [phone] withquestions or concerns * Roberto Carlos ESPARZA, Daria: PERFORM Event Display: Patient Education/Instruction Authored Date: Inpatient Adult Discharge Instructions [address] [id number] Name: LEIDA SMITH : 1955 Visit: 11/21/2022 08:24:00 Current Date: 11/22/2022 14:09 Account: [id number] Inpatient Adult Discharge Instructions We would like to thank you for allowing us to assist you with your healthcare needs. The following includes patient education materials and information regarding your injury/illness. Our entire staffstrives to provide an excellent experience for our patients and their families. PLEASE ENSURE YOU FOLLOW-UP PER THE INSTRUCTIONS BELOW! ?? YOUR OPINION IS IMPORTANT TO US! Please complete the survey you may receive by mail or email. Your feedback will be used to make improvements to the healthcare experiences of our patients and their families. Surveys are administered by [employer] ?? If further treatment with your primary care physician or another doctor is recommended, it is important for you to keep the appointment. Call your primary care physician or return to the Emergency Department immediately if your condition worsens, fails to improve, or new symptoms develop. If you need to find a doctor, you can call [facility] EHR Link for a referral at [phone] or toll free at [phone] or log in to [email or web address].. ?? [facility], in keeping with [facility] guidance, no longer requires face masks for staff, patientsor visitors in most situations. Similiar to time spent indoors at other locations, there is the chance that you were exposed to repiratory viruses during your time with us (such as flu or COVID-19). If you develop symptoms concerning for a viral respiratory infection, please seek testing (and treatment if indicated) from your medical provider or home test kit. ?? You can view and manage your care through the patient portal or by using a health care gilda of your choosing. [employer] is a website that allows you to securely view your medical information including your hospital discharge summary, office visit summaries, medications and follow-up visits. You can also request appointments, renew medications, and request access to your medical information using a health care gilda of your choosing, or just ask a question. You can enroll at [email or web address] or register during your next office visit. You have been discharged from [facility], Patient Care Unit: D3B. If you have any questions regarding these instructions after you leave, please call us and we will be happy to assist you. [facility] Your Care Team Attending Physician Alexis Campbell MD Discharging Providers Alexis Campbell MD Reason for Admission R ANKLE VARUS ARTHRITISMEDIAL MALLEOLAR NONUNION Tests Performed Below is a partial list of the tests performed during your hospitalization. You may have had other tests and procedures not included in this list. Please discuss all test results with your provider. GLUCOSE POC Primary Care Provider Ayan Clayton III, MD Advance Directive Health Care Proxy on File No Patient refuses to discuss Discharge Vitals Temperature: 98.8 DegF Height: 153 cm Pulse Rate: 72 bpm Weight: 66.6 kg Respiratory Rate: 18 br/min Body Mass Index:??28.45 kg/m2??High Systolic Blood Pressure: 114 mm Hg Body surface area: 1.68 Diastolic Blood Pressure: 68 mm Hg ?? Oxygen Saturation: 94 % ?? Studies Pending All tests and labs ordered during this hospital stay have been completed unless listed below. Please discuss all pending results with your provider listed above in these instructions. ?? No incomplete studies found What to do next Instructions From Your Doctor Discharge Orders You Need to Schedule the Following Appointments Follow Up with??Alexis Campbell MD When:??In 1 week Where: ?? Discharge Medications LEIDA SMITH :1955 Visit Date:11/21/2022 Medications: Please continue your medications until treatment is completed or stopped by your provider. Medications not listed below should be discontinued. Discuss any questions related to medications with your provider. What How Much When Instructions Next Dose New Cholecalciferol (Vitamin D3 5000 intl units oral tablet) 1 tab(s) Oral Daily 11/23/22 9AM Unchanged Acetaminophen (acetaminophen 650 mg oral tablet, extended release) 1 tab(s) Oral Every 8 hours as needed for Pain , Moderate TAKE ONE TABLET EVERY 8 HOURS NEEDED FOR PAIN ?? 11/22/29 3:30 PM Unchanged Albuterol (Ventolin HFA 108 mcg/ inh inhalation aerosol with adapter) INHALE TWO PUFFS EVERY 6 HOURS NEEDED FOR COUGH OR FOR WHEEZING ?? Continue as prescribed Unchanged Aspirin (Aspirin Tablet) 325 Milligram Oral Daily 11/23/22 9AM Unchanged Atorvastatin (atorvastatin 20 mg oral tablet) 1 tab(s) Oral Daily at Bedtime TAKE ONE TABLET AT BEDTIME ?? 11/22/22 9PM Unchanged Azelastine Nasal (azelastine 137 mcg/ inh (0.1%) nasal spray) USE TWO SPRAYS IN EACH NOSTRIL TWICE DAILY ?? Resume as prescribed Unchanged Cetirizine (cetirizine 10 mg oral tablet) 1 tab(s) Oral Daily TAKE ONE TABLET DAILY ?? 11/23/22 9AM Unchanged Cyanocobalamin (Vitamin B-12 1000 mcg oral tablet) 1 tab(s) Oral Daily TAKE ONE TABLET BY MOUTH EVERY DAY ?? 11/23/22 9AM Unchanged Diclofenac Topical (diclofenac 1% topical gel) APPLY 2 GRAM'S TO AFFECTED AREA(s) TWICE DAILY NEEDED ?? Resume as prescribed Unchanged Docusate (Docusate Sodium Capsule) 100 Milligram Oral Twice a day 11/22/22 9PM Unchanged fluticasone/ umeclidinium/ vilanterol (Trelegy Ellipta inhalation powder) 1 puff(s) Inhalation Daily as needed for Wheezing/Shortness of Breath INHALE ONE PUFFS BY MOUTH into lungs EVERY DAY, RINSE MOUTH AFTER USE ?? Resume as prescribed Unchanged HydrOXYzine (HydrOXYzine HCL Tablet) 10 Milligram Oral Twice a day 11/22/22 9PM Unchanged HydrOXYzine (hydrOXYzine hydrochloride 25 mg oral tablet) 1 tab(s) Oral Daily at Bedtime TAKE ONE TABLET BY MOUTH EVERY EVENING ?? 11/22/22 9PM Unchanged Miscellaneous Rx (baclofen 10 mg tablet) TAKE ONE TABLET TWICE DAILY ?? Resume as prescribed Unchanged Miscellaneous Rx (cholecalciferol (vitamin D3) 25 mcg (1,000 unit) tablet) TAKE ONE TABLET DAILY ?? Resume as prescribed Unchanged Miscellaneous Rx (pqpahypdnjjf-mqdewszq-lssy fumarate 7.5 mg-folic acid 400 mcg tablet) Take 1 Tablet by mouth daily. ?? Resume as prescribed Unchanged Multivitamin (Total B with C oral tablet) TAKE ONE TABLET BY MOUTH EVERY DAY ?? 11/23/22 9AM Unchanged Nystatin Topical (nystatin topical 467207 u/ gm cream) APPLY TO THE AFFECTED AREA(S) THREE TIMES DAILY ?? Resume as prescribed Unchanged Oxycodone (oxyCODONE 5 mg oral tablet) 5 Milligram Oral Every 4 hours as needed for Pain , Mild As needed Unchanged semaglutide (Ozempic 8 mg/ 3 mL (2 mg dose) subcutaneous solution) Every Monday INJECT 2mg's SUBCUTANEOUSLY ONCE WEEKLY ?? Resume as prescribed Unchanged Thiamine (Vitamin B1 100 mg oral tablet) 1 tab(s) Oral Daily TAKE ONE TABLET BY MOUTH EVERY DAY ?? 11/23/22 9AM ?? What How Much When Comments Stop Taking Ibuprofen (ibuprofen 800 mg oral tablet) 1 tab(s) Oral Every 8 hours as needed for Pain , Moderate TAKE ONE TABLET EVERY 8 HOURS NEEDED FOR PAIN ?? Test Results Below is a partial list of the most recent Laboratory test results done prior to this discharge. You may have had other tests and procedures not included in this list. Please discuss all test resultswith your provider. GLUCOSE POC (11/21/2022) ???Glucose, POC - 93 mg/dL Allergies (NKA means No Known Allergies) metFORMIN??(GI Upset) sulfADIAZINE??( swell up ) sulfa drugs??(swelling, shortness of breath) Problems Active Problems??(4) Asthma-COPD overlap syndrome?? Chronic sacroiliac joint pain?? Diabetes mellitus due to underlying condition with diabetic neuropathy, unspecified?? Hyperlipidemia?? Education Materials Below is the list of Educational Leaflet Providered with your Discharge Instructions. Valuables and Belongings I fully understand and agree that [facility] accepts no responsibility for all my personal property including clothing, toilet articles, radios, jewelry, dentures, hearing aids, rings, money, or any other property that is in my possession or is brought to me after admission. I understand certain valuables may be placed in a hospital safe for a short period of time. I understand that the hospital is not liable for loss or damage due to accident, fire, or other natural occurrence while said property is in the safe. I accept full responsibility for any personal property that I keep with me, and will not hold the hospital responsible in case of loss or disappearance. I acknowledge that i have been encouraged to send valuables and belongings home. ?? Review of Valuable and Belonging List: With patient Date for Pt to Sign Valuables/Belongings: 11/21/22 09:38:00 ?? Valuables & Belongings ?? Clothes Electronic devices Jewelry Monetary Items Personal devices Miscellaneous Medications (Valuables) Valuables at Bedside Jacket, Pants, Shirt, Shoes, Undergarments Cell phone, Other: spool carrier, watch ? Cane, Glasses ? Valuables Sent Home ? Valuables Sent to Security ? Other Discharge Information ? Case Management Discharge Plan?? Discharge Plan?? Discharge Agency Information?? Discharge Level of Care at Discharge: Homehealth/VNA Name of Agency #1: [facility] Discharge VNA/Hospice/Home Care: [facility] Agency Management Developer #1: [phone] ?? Service Categories #1: Occupational Therapy, Physical Therapy, Snf ?? Service Comments #1: You will be discharged home with services through [facility]. ??You will recievea call 1-2 days to arrange a visit. ??Please call [phone] withquestions or concerns ?? Pulmonary Rehab Status?? Pulmonary Rehab Discharge Status?? Respiratory Rate: 18 br/min ? Common Emergency Awareness Tips IS IT A STROKE? Act FAST and Check for these signs: FACE Does the face look uneven? ARM Does one arm drift down? SPEECH Does their speech sound strange? TIME Call at any sign of stroke ?? Heart Attack Signs Chest discomfort: Most heart attacks involve discomfort in the center of the chest and lasts more than a few minutes, or goes away and comes back. It can feel like uncomfortable pressure, squeezing, fullness or pain. Discomfort in upper body: Symptoms can include pain or discomfort in one or both arms, back, neck, jaw or stomach. Shortness of breath: With or without discomfort. Other signs: Breaking out in a cold sweat, nausea, or lightheaded. Remember, MINUTES DO MATTER. If you experience any of these heart attack warning signs, call to get immediate medical attention! ?? Smoking can increase your chances of developing chronic health problems and can cause harmful effects to other family members in your house. If you smoke, you are strongly encouraged to quit. Please call [facility] EHR Link at [phone] or [phone] ([phone]) or log in to [email or web address] for referrals to smoking cessation programs. ?? 168 Suicide & Crisis Lifeline is available 17/10 if you or someone you know needs to find a reason to keep living. By calling 661 you'll be connected to a skilled, trained counselor at a crisis center in your area. INPATIENT DISCHARGE INSTRUCTIONS SIGNATURE PAGE LEIDA SMITH Location:[facility] Registration Date and Time:11/21/2022 08:24 EDT Primary Care Physician: Forrest BENNETT MD, Ayan Esqueda, Attending Physician: Shannan ROGERS, Alexis De Oliveira, I LUISLEIDA, have received the above patient education materials/instructions and have verbalized understanding. If ambulance or transport services are being used I further acknowledge being given a choice of service. ?? If you need to contact me, please call me at this number: . Patient/Customer Solutions Teammate Name: Patient/Customer Solutions Teammate Signature: Relationship to Patient: Witness Name/Signature: Date: Patient Care team information Care Team Personnel Name: Forrest BENNETT MD, Ayan Esqueda Position: Reference Physician Member Role: PCP Address: Address: [address] [place] [address] Name: Bryan Larios RN Position: [facility] RN Member Role: Primary Care Nurse Name: Tati Burnett RN Position: [facility] RN Member Role: Primary Care Nurse Care Team Related Persons Name: KRISHNA QUEEN Address: [place] [address] Name: JUAN DAVID SMITH Address: home [address] [place] [address] Name: BERTA SMITH Address: home [address] [place] [address]
--- OUTSIDE RECORDS SUMMARY | 2023-09-01 09:39 | XMS_ITS | Continuity of Care Document ---
Author Organization [facility] Address [address] [place] [address]- Care Team Providers Care Ruby Engineer Name Role Phone Daniel Mota MD Primary Care Physician Octaviano cassidy Encounter [facility] R [id number] Date(s): 02/12/20 - 03/13/[address] [address] Attending Physician: Robson León Admitting Physician: AdmtrRobson Referring Physician: Admtr, Ar8 Allergies, Adverse Reactions, Alerts Substance Reaction Severity Status sulfADIAZINE swell up Active metFORMIN Active Medications (Vitamin D3) Cholecalciferol 400 LONG-TERM units/mL [...] 02/06/19 15:27:10 EST, Route to Pharmacy Electronically, NCPDP_[id number], [facility] Start Date: [...] 02/06/19 15:28:14 EST, Route to Pharmacy Electronically, NCPDP_[id number], [facility] Start Date: 02/06/19 Status: Ordered Problem List Condition Effective Dates Status Health Status Inform ant Morbid obesity(Confirmed) Active Chronic sacroiliac joint pain(Confirmed) Active Diabetes mellitus due to und erlying condition with diabetic neuropathy, unspecified(Confirmed) Active
--- OUTSIDE RECORDS SUMMARY | 2023-09-01 09:39 | XMS_ITS | Continuity of Care Document ---
Author Organization [facility] Address [address] [place] [address]- Care Team Providers Care Irrigation Equipment Remover Name Role Phone Forrest BENNETT MD, Ayan Esqueda Primary Care Physician Encounter [facility] ACCT R [id number] Date(s): 06/27/23 - 07/27/23 [facility] [address] [place], [place] [address] Attending Physician: Admchina, Robson Admitting Physician: Admtr, Ar8 Referring Physician: Admtr, Ar8 Allergies, Adverse Reactions, Alerts Substance Reaction Severity Status sulfADIAZINE swell up Active sulfa drugs swelling, shortness of breath Active metFORMIN GI Upset Active Immunizations Given and Recorded Vaccine Date Status Refusal Reason SARS-CoV-2 (COVID-19) mRNA-1273 vaccine 06/23/20 G iven SARS-CoV-2 (COVID-19) mRNA-1273 vaccine 05/26/20 G iven Medications azelastine 137 mcg/inh (0.1%) nasal spray USE TWO SPRAYS IN EACH NOSTRIL TWICE DAILY Start Date: 11/01/22 Status: Ordered baclofen 10 mg tablet baclofen 10 mg tablet, TAKE ONE TABLET TWICE DAILY Start Date: 11/01/22 Status: Ordered calcitonin 200 iu/inh nasal spray See Instructions, 1 sprays Naris, alternate nostrils, # 1 each, 0 Refills, Maintenance, 06/18/23 12:22:00 T, [id number], Partial fill upon patient request if the [...] Refills, Maintenance, 06/18/23 12:23:00 EDT, DIS Tablet, [id number], 152, cm, 06/17/23 4:04:00 EDT, Height, 63, kg, 06/11/23 11:32:00 EDT, Dry Weight Start Date: 06/18/23 Stop Date: 07/02/23 Status: Ordered krmkwoslpnva-sjooncji-ucid fumarate 7.5 mg-folic acid 400 mcg tablet hkgzozxjzcyq-zmlsnvnu-mvxe fumarate 7.5 mg-folic acid 400 mcg tablet, Take 1 Tablet by mouth daily. Start Date: 11/01/22 Status: Ordered nystatin topical 192260 u/gm cream APPLY TO THE AFFECTED AREA(S) [...] Code MRI Safety Implantable Status Assigning Authority [id number] [id number] Unknown 01/22/24 Unknown Unknown Active GS1 Patient Care team information Care Team Personnel Name: Ayan Clayton III, MD Position: Reference Physician Member Role: PCP Address: Address: [address] [place] [address] Name: Bryan Larios RN Position: S RN [...] Related Persons Name: KRISHNA QUEEN Address: [place] [address] Name: JUAN DAVID SMITH Address: home [address] [place] [address] Name: BOOM SMITH Address: [address] [address]
--- OUTSIDE RECORDS SUMMARY | 2023-09-01 09:39 | XMS_ITS | Continuity of Care Document ---
Author Organization [facility] Address [address] [place] [address]- Care Team Providers Care College Coach Name Role Phone Forrest BENNETT MD, Ayan Esqueda Primary Care Physician Encounter [facility] ACCT R [id number] Date(s): 11/01/22 - 12/01/22 [facility] [address] [place] [address]- Attending Physician: Admtr, Kelvin8 Admitting Physician: Admtr, Ar8 Referring Physician: Admtr, [...] opioid drug. Start Date: 11/21/22 Status: Ordered HydrOXYzine HCL Tablet = 10 [...] EVERY EVENING Start Date: 11/01/22 Status: Ordered ewxafkhpizut-vqjjgezk-llxq fumarate 7.5 mg-folic acid 400 mcg tablet ziewghrftqxw-ccoanhmg-tuxy fumarate 7.5 mg-folic acid 400 mcg tablet, Take 1 Tablet by mouth daily. Start Date: 11/01/22 Status: Ordered nystatin topical 332184 u/gm cream APPLY TO THE AFFECTED AREA(S) THREE TIMES DAILY Start Date: 11/01/22 Status: Ordered oxyCODONE 5 mg oral tablet 5 mg, By Mouth, Every 4 hours, PRN, Refills 0, Tot. Refills 0, Maintenance, Pain , Mild, 11/21/22 13:30:00 EDT, Partial fill upon patient request if the prescription is for a schedule II opioid drug. Start Date: 11/21/22 Status: Ordered Ozempic 8 mg/3 mL (2 [...] condition with diabetic neuropathy, unspecified Confirmed Active Implantable Device List Procedure Provider Procedure Date Device Type Site Bone Graft Calcaneal Alexis Campbell MD 11/21/22 Unknown Arm Right Device Identifier Serial Number Lot or Batch Number Manufacturing Date Expiration Date Distinct Identification Code MRI Safety Implantable Status Assigning Authority [id number] [id number] Unknown 01/22/24 Unknown Unknown Active GS1 Patient Care team information Care Team Personnel Name: Ayan Clayton III, MD Position: Reference Physician Member Role: PCP Address: Address: [address] [place] [id number] Name: Bryan Larios RN Position: S RN Member Role: Primary Care Nurse Name: Tati Burnett RN Position: [facility] RN Member Role: Primary Care Nurse Care Team Related Persons Name: KRISHNA QUEEN Address: [place] [address] Name: JUAN DAVID SMITH Address: home [address] [place] [address] Name: BOOM SMITH Address: [address] [address]
--- OUTSIDE RECORDS SUMMARY | 2023-09-01 09:39 | XMS_ITS | Continuity of Care Document ---
Author Organization [facility] ter Address [address] [place] [id number] Care Team Providers Care Senior Qa Automation Engineer Name Role Phone Forrest BENNETT MD, Ayan Esqueda Primary Care Physician [place] [facility] [place]): [place] - 06/18/[address] [address]- Encounter Diagnosis T11 vertebral fracture(Final) - 06/11/23 Sacral fracture(Final) - 06/11/23 Mobility poor(Final) - 06/11/23 Discharge Disposition: A-D/C Home Attending Physician: Manuel Ramirez MD Admitting Physician: Rohini Kenyon MD Referring Physician: Not on Staff, Referring MD Allergies, Adverse Reactions, Alerts Substance Reaction [...] 06/18/23 12:20:00 EDT, Route to Pharmacy Electronically, [facility] #[id number], Partial fill upon... Start Date: 06/18/23 Stop Date: 07/18/23 Status: Ordered Acetaminophen Tablet 975 mg, Tablet, By Mouth, Temperature Greater than 100.5, 06/18/23 9:00:00 EDT Start Date: 06/18/23 Stop Date: 06/18/23 Status: Completed azelastine 137 mcg/inh (0.1%) nasal spray USE TWO SPRAYS IN EACH NOSTRIL TWICE DAILY Start Date: 11/01/22 Status: Ordered baclofen 10 mg tablet baclofen 10 mg tablet, TAKE ONE TABLET TWICE DAILY Start Date: 11/01/22 Status: Ordered calcitonin 200 iu/inh nasal spray See Instructions, 1 sprays Naris, alternate nostrils, # 1 each, 0 Refills, Maintenance, 06/18/23 12:22:00 EDT, [facility] #[id number], Partial fill upon patient request if the [...] Refills, Maintenance, 06/18/23 12:23:00 EDT, DIS Tablet, [facility] #[id number], 152, cm, 06/17/23 4:04:00 EDT, Height, 63, kg, 06/11/23 11:32:00 EDT, Dry Weight Start Date: 06/18/23 Stop Date: 07/02/23 Status: Ordered emajzgfvoqse-nfayqehl-jmfr fumarate 7.5 mg-folic acid 400 mcg tablet rtwdpcnwfysl-ohupaytv-xtrd fumarate 7.5 mg-folic acid 400 mcg tablet, Take 1 Tablet by mouth daily. Start Date: 11/01/22 Status: Ordered naproxen 250 mg oral tablet 500 mg, By Mouth, 2 times a day with meals, for 14 days, # 56 each, Refills 0, Tot. Refills 0, Acute 07/02/23 12:21:00 EDT, 06/18/23 12:21:00 EDT, Route to Pharmacy Electronically, [facility] #[id number], Partial fill upon patient request if the... Start Date: 06/18/23 Stop Date: 07/02/23 Status: Ordered naproxen 250 mg oral tablet 500 mg, Tablet, By Mouth, 06/18/23 8:00:00 EDT Start Date: 06/18/23 Stop Date: 06/18/23 Status: Completed nystatin topical [id number] u/gm cream APPLY TO THE AFFECTED AREA(S) THREE TIMES DAILY Start Date: 11/01/22 Status: Ordered oxyCODONE 5 mg oral tablet 10 mg, By Mouth, 4 times a day, PRN, for 7 days, # 24 tablet, Refills 0, Tot. Refills 0, Acute 06/25/23 12:23:00 EDT, Pain , Moderate, 06/18/23 12:23:00 EDT, Route to Pharmacy Electronically, [facility] #[id number], Partial fill upon patient requ... Start Date: 06/18/23 Stop Date: 06/25/23 Status: Ordered oxyCODONE 5 mg oral tablet 10 mg, Tablet, By Mouth, 4 times a day, Hold for: oversedation, RR< 12, PRN for Pain , Moderate,Routine, 06/11/23 11:36:00 EDT Start Date: 06/11/23 Stop Date: 06/19/23 Status: Discontinued Ozempic 8 mg/3 mL (2 mg dose) [...] condition with diabetic neuropathy, unspecified Confirmed Active Results Radiology Reports * Exam Date Time Procedure Performing Provider Status 06/16/23 8:05 AM IR End of Case Report Mod ified IR End of Case Report * Exam Date Time Procedure Performing Provider Status 06/16/23 8:05 AM IR Kyphoplasty Thoracic [facility] (Verified) Notes: (IR Kyphoplasty Thoracic) Reason For Exam: Other: IR Kyphoplasty Thoracic Patient: YANET KING Study Date: 06/16/2023 Performing: Ellen Taylor MD Referring: : 1955 Age: 67 Gender: FEMALE Pre-procedure diagnosis and Indication: Yanet King is a 67-year-old female with past medical history of type 2 diabetes, history of gastric bypass, cholecystectomy, lumbar L2-L5 spinal fusion and spinal cord stimulator who presented with acute worsening of back pain and bilateral lower extremity weakness. MRI lumbar spine from 06/10/2023 demonstrates mild anterior wedging of the T11 vertebral body with edema at the inferior aspect of T11 suggestive of subacute compression fracture. She presents for kyphoplasty of T11 vertebral body. PROCEDURE: The procedure, risks, and alternatives, were discussed with the patient and all questions were answered. Written informed consent obtained. Accompanying paperwork was verified for accuracy. Directed history and physical exam performed prior to the procedure. Medication reconciliation performed by nursing personnel. The patient was brought to the procedure suite and a critical pause was performed with assisting personnel just prior to the procedure with the patient's identity confirmed using 2 identifiers and confirming procedure site and side. Procedure was performed under anesthesia provided by the anesthesiology service. The patient was positioned prone on the table. AP and lateral fluoroscopy was used for image guidance throughout the procedure. Appropriate access points were marked on the skin using fluoroscopy. The skin was draped and prepped in usual sterile fashion. Procedure was performed using a cap, sterile gown, sterile gloves, a large sterile sheet, handhygiene and 2% chlorhexidine for cutaneous antisepsis. Level T11 Following injection of 1% Lidocaine with bicarbonate and also 2 mL each side of 0.5% Bupivicaine/1% Lidocaine with epinephrine for local anesthesia and using biplane fluoroscopy, a 10 gauge Kyphx One Step needle was advanced through the right pedicle into the vertebral body. Satisfactory position was confirmed by fluoroscopy. The Trochar was removed and a Franzeen needle was inserted to obtain a biopsy. A drill was advanced anteriorly. A pusher was inserted and the anterior cortex probed to confirm no perforation of the anterior cortex. Subsequently, the same process was repeated on the patient?s left side. Under fluoroscopy, a 10 gauge Kyphx One Step needle was advanced into a satisfactory position on the left side of the vertebral body. A Kyphx curette was inserted and curreting performed on each side and a cavity created. Kyphx Inflatable Bone Tamp balloons were inserted through the right and left cannula and advanced under fluoroscopic guidance into appropriate positions in the vertebral body. The balloons were inflated to a total pressure of just over 237 PSI with 1.5 ml RIGHT SIDE and over 169 PSI with 1.5 ml LEFT SIDE of diluted contrast. The balloons were gently removed. The bone voids created were filled with 2.1 ml RIGHT SIDE AND 2.1 mL LEFT SIDE of bone cement. The bone cement is Kyphx-HVR. Once the bone cement was hardened the cannulae were removed. The access sites were closed with occlusive Steri strip dressings. After a period of approximately ten minutes in the prone position the patient was then turned supine. The patient tolerated the procedure well without immediate post procedure complications. Plan: After recovery from anesthesia, patient will continue to be monitored on the inpatient floor. Patient will be scheduled for telehealth follow-up visit with interventional radiology in 7 to 10 days. FINDINGS: Acute compression fracture of T11 vertebral body. Treatment of T11 vertebral compression fracture with good fills from a bilateral transpedicular approach for balloon kyphoplasty without complication. Minimal extrusion of cement at the inferior endplate of T11 on the left side, which is expected to be of no clinical significance. The sterile field was maintained throughout the procedure and patient tolerated the procedure well with no complications of the procedure estimated blood loss was minimal Specimens/samples: sample taken from right side T- 11 Patient transferred to, Perianesthesia unit Impression: 1. Acute compression fracture of T11 vertebral body. 2. Balloon kyphoplasty of T11 using bilateral approach, with good fills on both sides. Fluoroscopy time and dose Total Fluoro Time: 4.2 mins Total dose 166 mGy Total DAP 1223.93 - ?Gy/m2 No contrast was used for this procedure Local Anesthetic Bupivacaine 0.5% 5 ml's SQ Lidocaine 1% w/ 4.2% sodium bicarbonate 5 ml's SQ Lidocaine 1% w/ 1:100,000 epinephrine and 4.2% sodium bicarbonate 10 ml's SQ Anesthesia care Sedation and monitoring by Anesthesia, see Anesthesia record Signed By Ellen Taylor MD On 06/16/2023 17:56:14 Ellen Taylor MD, George MD Dictated By: Ellen Taylor MD Dictated Date/Time: 06/16/23 8:05 am Reviewed By: Ellen Taylor MD Signed By: Ellen Taylor MD Signed Date/Time: 06/16/23 8:05 am Transcribed By: MANUELITO Transcribed Date/Time: 06/16/23 8:05 am * Exam Date Time Procedure Performing Provider Status 06/10/23 6:07 PM MRI Lumbar Spine W/O Contrast Xiomara , [place]; [place] (Verified) Notes: (MRI Lumbar Spine W/O Contrast) Reason For Exam: Spine fracture, lumbar, traumatic;Other: RESULT: MRI Lumbar Spine W/O Contrast MRI Lumbar Spine W/O Contrast INDICATION: Hx of Present Illness: pt reports bilateral groin pain radiating down both legs x2 weeks with nausea and diarrhea; Reason: Other:; Spine fracture, lumbar, traumatic; Clinical Question(s):Fracture Dislocation; Order Comment: Please see Reference Text for complete list of contraindications Fracture/Dislocation TECHNIQUE: MRI of the lumbar spine was performed without intravenous contrast utilizing sagittal T1, sagittal T2, sagittal STIR, axial T1, and axial T2- weighted sequences. COMPARISON: MRI of the lumbar spine 02/02/[address] scan of the lumbar spine and abdomen and pelvis06/10/2023 FINDINGS: LOCALIZER: No additional findings on limited localizer images. NUMBERING: A transitional vertebral body is present which is compatible with a partially sacralizedlumbar vertebral body which will be labeled L5. ALIGNMENT, VERTEBRAE, MARROW, AND DISCS: Subtle retrolisthesis of L1 on L2 is noted on the left. Mild anterolisthesis of L3 on L4 and L4 on L5. Status post anterior lumbar discectomy and fusion at L2-L3 and L4-L5. Intradiscal bone graft/spacers are present at these levels, and posterior lumbar fusion has also been performed with right-sided transpedicular screws at L4 and L5 and left- sided transpedicular screws at L2 through L5. Interconnecting rods are present, but the left-sided rods are isolated at L2-L3 and L4-L5, respectively. The lumbar vertebral bodies are normal in height. There is anterior wedging of the T11 vertebral body, and edema is present within the inferior aspect of the T11 vertebra. Mild overall loss of heightof T11 without retropulsion of bone. The lumbar vertebral bodies are normal in height. The L1-L2 disc is now moderate-severely diminished in height. Moderate loss of height of L3-L4. Transitional L5-S1 disc. Marginal osteophytes and facet arthroses are present at multiple levels. An healing L2 spinous process fracture is better seen on the prior CT. No significant edema. Edema related to S3 and S4 sacral fractures on the prior CT is also noted. CONUS: The conus is normal in signal and contour, with normal level of termination at [id number]. This is partially obscured by distortion artifact from leads related to the patient's spinal simulator. No epidural fluid collection is noted. PARASPINAL TISSUES: Fatty atrophy and postoperative changes of the posterior paraspinal musculature. Signal voids within the anterior right kidney correlate with calculi on the prior CT. DETAILED FINDINGS BY LEVEL: L1-L2: New concentric disc-osteophyte complex with mild facet arthrosis and ligamentum flavum infolding. Mild left central canal and subarticular recess narrowing. Crowding of, but no impingement of the left L2 nerve roots. Mild- moderate moderate right and mild left foraminal narrowing. L2-L3: Postoperative changes as above. Status post left laminotomy. Residual concentric disc-osteophyte complex. No significant central canal narrowing or traversing nerve root impingement. Mild right and mild-moderate left foraminal narrowing. L3-L4: Postoperative changes as above. Broad-based posterior disc bulge, facet arthrosis, and ligamentum flavum infolding. Mild to mild-moderate central canal narrowing. No suspected nerve root impingement. Mild right and at least moderate left foraminal narrowing, which is more pronounced. L4-L5: Postoperative changes as above. No significant canal stenosis or neural foraminal narrowing.A laminectomy defect is present at this level. No significant central canal narrowing. Mild to mild-moderate right and mild left foraminal narrowing. Left-sided foraminal narrowing has decreased. L5-S1: Transitional level. No significant central canal or foraminal narrowing IMPRESSION: 1. Transitional vertebral body and counting scheme as above. 2. Degenerative and postoperative changes of the lumbar spine with central canal and foraminal narrowing as detailed above. 3. Mild anterior wedging of the T11 vertebral body with edema in the inferior aspect of T11. No retropulsion of bone. This may represent a subacute compression fracture and may be amenable to vertebroplasty. 4. Healing L2 spinous process fracture. No significant edema. 5. Edema related to sacral fractures reported on CT scan of the abdomen and pelvis 12/11/2023. 6. The endometrium of the uterus appears thickened measuring up to 6 mm. Correlation with pelvic sonography is recommended. A preliminary report was issued to the emergency room by the [facility] service 06/10/2023 at 6:24 PM. WSN: [id number] Ordering Physician: Hiral Russell Dictated By: Juan Carlos Starks MD Dictated Date/Time: 06/11/23 7:06 am Reviewed By: Juan Carlos Starks MD Signed By: Juan Carlos Starks MD Signed Date/Time: 06/11/23 7:06 am Transcribed By: NICK Transcribed Date/Time: 06/10/23 6:36 pm * Exam Date Time Procedure Performing Provider Status 06/10/23 1:[address] Lumbar Spine W/ Contrast Laure Cano; Auth (Verified) Notes: (CT Lumbar Spine W/ Contrast) Reason For Exam: Spine fracture, lumbar, traumatic;Other: RESULT: CT Lumbar Spine W/ Contrast CT Abd/Pelvis W/ IV Contrast Only, CT Lumbar Spine W/ Contrast Hx of Present Illness: pt reports bilateral groin pain radiating down both legs x2 weeks with nausea and diarrhea; Reason: Other:; LLQ abdominal pain; Clinical Question(s): Diverticulitis. TECHNIQUE: Spiral CT through the abdomen and pelvis with IV contrast formatted in 3 planes. The original data set was reconstructed using smaller [id number]-uj-hpll through the lumbar spine in 3 planes. 100 cc of Omnipaque 300 was administered intravenously. This study was performed without oral contrast. Weight-based protocol using automatic tube modulation was used to optimize exposure parameters. CTDIvol Body: 15.40 mGy, DLP Body: 848 mGy*cm. COMPARISON: Lumbar spine radiographs dated 04/06/2021 and lumbar spine MRI dated 02/02/2019.. FINDINGS: Assembly Inspector View Findings, Lines and Tubes: There is a spinal stimulator with the power pack overlying the left gluteal region in the proximal extents of the lead extending superiorly beyond the field of view. Visualized Chest: Lung bases are clear. No pleural effusion. The heart is normal in size. No pericardial effusion. Diaphragm: Normal. Liver: Diffuse low-attenuation throughout the liver parenchyma consistent with hepatic steatosis. No evidence of solid mass.There is a 7 mm cyst in the dome of the liver. Gallbladder: Absent consistent with prior cholecystectomy. Bile ducts: There is intra and extrahepatic biliary ductal dilatation. The common bile duct measures 1.9 cm with distal tapering. Spleen: Normal. Pancreas: Normal. Adrenal glands: Normal. Kidneys and ureters: Cluster of calculi in the right mid pole calyx is seen with the largest calculus measuring approximately 1.2 cm. Additional nonobstructing calculi are seen in both kidneys. Duplex appearance of the renal collecting systems. No suspicious renal mass. Small hypodensities that aretoo small to characterize are noted, requiring no dedicated follow up. Bladder: Normal. Reproductive organs: Unremarkable. Stomach, small bowel, and large bowel: Small type III. Paraesophageal hernia. Postoperative change of the stomach with suture material along the greater curvature suggesting prior sleeve gastrectomy.There is a duodenal diverticulum. The small bowel appears normal in caliber. No focal bowel wall thickening or evidence of adjacent inflammatory change. Appendix: Not visualized, however no secondary signs of appendicitis. Peritoneum and retroperitoneum: No ascites or pneumoperitoneum. No omental or mesenteric lesions. Lymph nodes: No enlarged lymph nodes. Blood vessels: Mild vascular calcifications but no aneurysm. No evidence of venous thrombosis. Abdominal and pelvic wall: There is a fat-containing ventral hernia in the midline upper abdomen with evidence of prior mesh fixation which appears to extend into the hernia. Bones: Severe degenerative change in both hips is seen with bkzo-ox-imey contact, multiple subchondral cysts and mild bony proliferation. Mild degenerative changes seen of both sacroiliac joints. Subacute fractures of the anterolateral sixth ribs bilaterally. Subacute fracture of the S3 and S4 sacral segments. Transitional anatomy is seen with partial sacralization of L5. Status post posterior decompression,discectomy and fusion of L4-5, secured with bilateral transpedicular screws and vertical paraspinalrods. Prior left laminectomy with discectomy and fusion of L2-3 is seen secured with left-sided transpedicular screws and a left paraspinal escobar. Subacute fracture of the L2 spinous process. The lumbar vertebral bodies appear normal in height with no evidence of acute fracture. There is grade 1 anterolisthesis of L3 on L4 and loss of intervertebral disc space height with small amount of vacuum phenomena at L3-4. Loss of intervertebral disc space height and endplate degenerative change with vacuum phenomena is seen at L1-2. IMPRESSION: 1. No evidence of diverticulitis or colitis. 2. Intrahepatic and extrahepatic biliary ductal dilatation with distal tapering, status post cholecystectomy. No CT evidence of choledocholithiasis. Correlation with lab values is recommended. 3. Subacute fracture of the L2 spinous process with no evidence of acute lumbar vertebral fracture.Multilevel degenerative change and postoperative change in the lumbar spine with transitional anatomy at the lumbosacral junction. 4. Fat-containing ventral hernia which also appears to contain a portion of prior mesh. 4. Additional findings including small type III paraesophageal hernia, hepatic steatosis and nonobstructing bilateral renal calculi. WSN: [id number] Ordering Physician: Kate Thompson Dictated By: Brisa Vega MD Dictated Date/Time: 06/10/23 2:59 pm Reviewed By: Brisa Vega MD Signed By: Brisa Vega MD Signed Date/Time: 06/10/23 2:59 pm Transcribed By: NICK Transcribed Date/Time: 06/10/23 2:03 pm * Exam Date Time Procedure Performing Provider Status 06/10/23 1:[address] Abd/Pelvis W/ IV Contrast Only Laure Lyon; Auth (Verified) Notes: (CT Abd/Pelvis W/ IV Contrast Only) Reason For Exam: LLQ abdominal pain;Other: RESULT: CT Abd/Pelvis W/ IV Contrast Only CT Abd/Pelvis W/ IV Contrast Only, CT Lumbar Spine W/ Contrast Hx of Present Illness: pt reports bilateral groin pain radiating down both legs x2 weeks with nausea and diarrhea; Reason: Other:; LLQ abdominal pain; Clinical Question(s): Diverticulitis. TECHNIQUE: Spiral CT through the abdomen and pelvis with IV contrast formatted in 3 planes. The original data set was reconstructed using smaller [id number]-uz-[id number] through the lumbar spine in 3 planes. 100 cc of Omnipaque 300 was administered intravenously. This study was performed without oral contrast. Weight-based protocol using automatic tube modulation was used to optimize exposure parameters. CTDIvol Body: 15.40 mGy, DLP Body: 848 mGy*cm. COMPARISON: Lumbar spine radiographs dated 04/06/2021 and lumbar spine MRI dated 02/02/2019.. FINDINGS: Assembly Inspector View Findings, Lines and Tubes: There is a spinal stimulator with the power pack overlying the left gluteal region in the proximal extents of the lead extending superiorly beyond the field of view. Visualized Chest: Lung bases are clear. No pleural effusion. The heart is normal in size. No pericardial effusion. Diaphragm: Normal. Liver: Diffuse low-attenuation throughout the liver parenchyma consistent with hepatic steatosis. No evidence of solid mass.There is a 7 mm cyst in the dome of the liver. Gallbladder: Absent consistent with prior cholecystectomy. Bile ducts: There is intra and extrahepatic biliary ductal dilatation. The common bile duct measures 1.9 cm with distal tapering. Spleen: Normal. Pancreas: Normal. Adrenal glands: Normal. Kidneys and ureters: Cluster of calculi in the right mid pole calyx is seen with the largest calculus measuring approximately 1.2 cm. Additional nonobstructing calculi are seen in both kidneys. Duplex appearance of the renal collecting systems. No suspicious renal mass. Small hypodensities that aretoo small to characterize are noted, requiring no dedicated follow up. Bladder: Normal. Reproductive organs: Unremarkable. Stomach, small bowel, and large bowel: Small type III. Paraesophageal hernia. Postoperative change of the stomach with suture material along the greater curvature suggesting prior sleeve gastrectomy.There is a duodenal diverticulum. The small bowel appears normal in caliber. No focal bowel wall thickening or evidence of adjacent inflammatory change. Appendix: Not visualized, however no secondary signs of appendicitis. Peritoneum and retroperitoneum: No ascites or pneumoperitoneum. No omental or mesenteric lesions. Lymph nodes: No enlarged lymph nodes. Blood vessels: Mild vascular calcifications but no aneurysm. No evidence of venous thrombosis. Abdominal and pelvic wall: There is a fat-containing ventral hernia in the midline upper abdomen with evidence of prior mesh fixation which appears to extend into the hernia. Bones: Severe degenerative change in both hips is seen with djde-aw-zarm contact, multiple subchondral cysts and mild bony proliferation. Mild degenerative changes seen of both sacroiliac joints. Subacute fractures of the anterolateral sixth ribs bilaterally. Subacute fracture of the S3 and S4 sacral segments. Transitional anatomy is seen with partial sacralization of L5. Status post posterior decompression,discectomy and fusion of L4-5, secured with bilateral transpedicular screws and vertical paraspinalrods. Prior left laminectomy with discectomy and fusion of L2-3 is seen secured with left-sided transpedicular screws and a left paraspinal escobar. Subacute fracture of the L2 spinous process. The lumbar vertebral bodies appear normal in height with no evidence of acute fracture. There is grade 1 anterolisthesis of L3 on L4 and loss of intervertebral disc space height with small amount of vacuum phenomena at L3-4. Loss of intervertebral disc space height and endplate degenerative change with vacuum phenomena is seen at L1-2. IMPRESSION: 1. No evidence of diverticulitis or colitis. 2. Intrahepatic and extrahepatic biliary ductal dilatation with distal tapering, status post cholecystectomy. No CT evidence of choledocholithiasis. Correlation with lab values is recommended. 3. Subacute fracture of the L2 spinous process with no evidence of acute lumbar vertebral fracture.Multilevel degenerative change and postoperative change in the lumbar spine with transitional anatomy at the lumbosacral junction. 4. Fat-containing ventral hernia which also appears to contain a portion of prior mesh. 4. Additional findings including small type III paraesophageal hernia, hepatic steatosis and nonobstructing bilateral renal calculi. WSN: [id number] Ordering Physician: Kate Thompson Dictated By: Brisa Vega MD Dictated Date/Time: 06/10/23 2:59 pm Reviewed By: Brisa Vega MD Signed By: Brisa Vega MD Signed Date/Time: 06/10/23 2:59 pm Transcribed By: NICK Transcribed Date/Time: 06/10/23 2:03 pm Vital Signs Most recent to oldest [Reference Range]: 1 2 3 4 Height 152 cm (06/17/23 4:04 AM) 152 cm (06/16/23 11:26 PM) 152 cm (06/16/23 8:22 PM) Weight 58.8 kg (06/11/23 6: PM) 58.8 kg (06/11/23 4:00 PM) 63 kg (06/11/23 11:32 AM) Oxygen Saturation [94-100 %] 96 % (06/18/23 3:00 PM) 94 % (06/18/23 11:27 AM) 94 % (06/18/23 7:48 AM) Pulse Rate [55-90 bpm] 77 bpm (06/18/23 3:00 PM) 80 bpm (06/18/23 11:27 AM) 75 bpm (06/18/23 7:48 AM) Body Mass Index [18.5-24.99 kg/m2] 25.45 kg/m2 *H* (06/11/23 6:27 PM) 27.27 kg/m2 *H* (06/11/23 11:32 AM) 27.27 kg/m2 *H* (06/11/23 11:31 AM) Blood Pressure [90-138/55-84 mm Hg] 136/70mm Hg (06/18/23 3:00 PM) 145/75mm Hg *H* (06/18/23 11:27 AM) 137/77mm Hg (06/18/23 7:48 AM) Respiratory Rate [16-30 br/min] 16 br/min (06/18/23 3:22 PM) 20 br/min (06/18/23 11:27 AM) 17 br/min (06/18/23 10:51 AM) 17 br/min (06/18/23 10:51 AM) Temperature [96.8-100.4 DegF] 98 DegF (06/18/23 3:00 PM) 97.7 DegF (06/18/23 11:27 AM) 97.1 DegF (06/18/23 7:48 AM) Liters per Minute 6 L/min (06/16/23 10:30 AM) Mode of Delivery (Oxygen) Room air (06/18/23 3:00 PM) Room air (06/18/23 11:27 AM) Room air (06/18/23 7:48 AM) Blood pressure sites Arm, right (06/18/23 3:00 PM) Arm, right (06/18/23 11:27 AM) Arm, right (06/18/23 7:48 AM) Temperature Route Temporal (06/18/23 3:00 PM) Temporal (06/18/23 11:27 AM) Temporal (06/18/23 7:48 AM) Dry Weight 63 kg (06/11/23 11:32 AM) 63 kg (06/11/23 11:31 AM) 63 kg (06/11/23 3:00 AM) Weight Obtained Via Bed scale (06/11/23 4:00 PM) Patient/family stated (06/10/23 10:39 AM) Dry Weight Obtained Via Patient/family stated (06/10/23 10:39 AM) Social History Social History Type Response Smoking Status Former smoker, quit more than 30 days ago entered on: 06/10/23 Sex Implantable Device List Procedure Provider Procedure Date Device Type Site Bone Graft Calcaneal Alexis Campbell MD 11/21/22 Unknown Arm Right Device Identifier Serial Number Lot or Batch Number Manufacturing Date Expiration Date Distinct Identification Code MRI Safety Implantable Status Assigning Authority [id number] Unknown 01/22/24 Unknown Unknown Active GS1 Admission evaluation note * Emmanuel ROGERS, Leonarda Herrera: PERFORM Event Display: Admission Note Authored Date: [id number] Patient: ??YANET KING ? Age:??67 Years?Sex:??Female?:??1955?? History of Present Illness This is a 67-year-old lady with past medical history of type 2 diabetes on Ozempic, history of gastric bypass for obesity, h/o COPD , history of laparoscopic cholecystectomy, history of L2-L5 lumbar fusion, spinal cord stimulator in situ, presented with acute worsening of the back pain and bilateral lower extremity weakness. ?? Seen and examined at bedside; vital labs and chart reviewed Patient reported that she started feeling worsening of the back pain a couple weeks ago and recovered further worsened over the past few days.?? She saw her PCP and was prescribed Tylenol which did not help.?? She also complained of intermittent abdominal pain and diarrhea, reported fecal incontinence for about 6 episodes over the past few days.?? She denies urinary incontinence or retention, shedenies any saddle anesthesia. ?? ED course: Vital signs largely stable, labs largely unremarkable except potassium 3.4, chloride 111, bicarb 18, creatinine 1.1, alkaline phosphatase 260, UA is negative for infection, RSV/COVID/influenza negative. CT scan of the lumbar spine, abdomen and pelvis showed no CT evidence of choledocholithiasis.?? Subacute fracture at L2 with no evidence of acute lumbar vertebral fracture.?? Fat-containing ventral hernia, type III small paraesophageal hernia, hepatic steatosis, nonobstructing bilateral renal stones. MRI of the lumbar spine without contrast showed possible subacute compression fracture of the T11 which may be amenable for vertebroplasty. Healing L2 spinous process fracture with no significant edema.?? The endometrium of the uterus appears thickened measuring up to 6 mm.?? Recommend correlation with pelvic ultrasound.? admit for pain?? control,?? PT eval,?? IR evaluation for vertebroplasty Review of Systems GEN: ??Denies any issues with sleep, fatigue or changes in wt. HEENT: Denies runny nose, dry mouth, ??sore throat or changes to his vision. CV: Denies CP, palpitations, edema or orthopnea. PULM: Denies any SOB, wheezing, cough. ABD: + abdominal pain, diarrhea?? : Denies dysuria, polyuria, or hematuria. EXT: back pain, legs weakness?? PSYCH: Denies any depression or anxiety. Objective Measurements?? Height: 152 cm (06/11/23) Weight: 63 kg (06/11/23) Dry Weight: 63 kg (06/11/23) Body Mass Index:??27.27 kg/m2??High (06/11/23) ? Vital Signs?? Temperature: 98.1 DegF (06/11/23 03:00:00) Temperature Route: Oral (06/11/23 03:00:00) Pulse Rate: 78 bpm (06/11/23 11:32:00) Respiratory Rate: 16 br/min (06/11/23 13:18:00) Systolic Blood Pressure:??142 mm Hg??High (06/11/23 11:31:00) Diastolic Blood Pressure: 78 mm Hg (06/11/23 11:31:00) Blood pressure sites: Arm, right (06/11/23 11:31:00) Mean Arterial Pressure: 99 mm Hg (06/11/23 11:31:00) Pulse Pressure: 64 mm Hg (06/11/23 11:31:00) Oxygen Saturation: 94 % (06/11/23 11:31:00) Mode of Delivery (Oxygen): Room air (06/11/23 11:31:00) Early Warning Score: 2 (06/11/23 13:23:06) ? Perfusion Assessment Capillary Refill: < 3 seconds (06/11/23 08:41:00) Cardiovascular Assessment Status: Unchanged from recorder's assessment (06/11/23 12:41:00) Cardiovascular Comment: denies chest pain at this time, no edema present at this time (06/11/23 08:41:00) Cardiovascular Symptoms: None (06/11/23 08:41:00) Nail Bed Color, Fingers: [place] (06/11/23 08:41:00) Skin Temperature Lower Extremities: Warm (06/11/23 08:41:00) Skin Temperature Upper Extremities: Warm (06/11/23 08:41:00) ? Pain Scores?? No qualifying data available. ? Ventilator Settings?? No qualifying data available. ? Intake/Output? No Data Available ?? Precautions No Precautions documented.? Shiner Coma Scale Shiner Coma Score: 15 (06/10/23 11:40:00) Motor Response-Adult: Obeys commands (06/10/23 11:40:00) Response Eye Opening: Spontaneously (06/10/23 11:40:00) Verbal Response-Adult: Oriented and converses (06/10/23 11:40:00) ? Basic ADLs Ambulatory devices needed: Walker (06/11/23) ? Mobility & Ambulation Level Mobility & Ambulation Level Ambulatory devices needed: Walker (06/11/23) ?? Therapeutic Activity Therapeutic Activities/Mobility/Balance?? No qualifying data available. ? Physical Exam General??: Awake, alert,??in no acute distress. RA?? HEENT: PERRLA, EOMI, NC/AT Neck: Supple. No JVD. No palpable LAD Respiratory: Bilateral air entry, no added sounds Cardiovascular: S1S2 regular. No murmurs, rubs or gallops. Gastrointestinal: Abdomen soft, mild Lower abdomen tenderness, no rebound tenderness, ??No palpableorganomegaly, bowel sounds present Genitourinary: No CVA tenderness Extremities: No lower extremity pitting??edema. No cyanosis or clubbing.?? Neurologic: AAOx3, Speech normal. No?? gross facial asymmetry or new??gross focal neurological deficits.??chronic bilateral feet neuropath?? back pain and tenderness on palpation, prior?? surgical?? scar in the lower back?? area? Psychiatric: Appropriate mood and affect?? Assessment/Plan Assessment:??This is a 67-year-old lady with past medical history of type 2 diabetes on Ozempic, history of gastric bypass for obesity, history of laparoscopic cholecystectomy, history of L2-L5 lumbar fusion, spinal cord stimulator in situ, presented with acute worsening of the back pain and bilater al lower extremity weakness. ?? Back pain (M54.9):??acute on chronic Leg weakness (R29.898):??worsening T11 vertebral fracture (S22.089A):??CT scan of the lumbar spine, abdomen and pelvis showed no CT evidence of choledocholithiasis.??Subacute fracture at L2 with no evidence of acute lumbar vertebral fracture.??Fat-containing ventral hernia, type III small paraesophageal hernia, hepatic steatosis, nonobstructing bilateral renal stones. MRI of the lumbar spine without contrast showed possible subacute compression fracture of the T11 which may be amenable for vertebroplasty. Healing L2 spinous process fracture with no significant edema.? Plan pain control w/ prn naproxen prn oxycodone , iv dilaudid prn cont spinal cord stimulator in situ from?? home IR cx vertebroplasty evaluation PT evaluation ?? Thickened endometrium (R93.89):??The endometrium of the uterus appears thickened measuring up to 6 mm. Recommend correlation with pelvic ultrasound. outpt f/u US ?? COPD mixed type (J44.9):??Not in exacerbation Maintaining saturation room air ?? plan trelegy not available: Instead use Breo,??Spiriva Albuterol as needed ?? VTE Prophylaxis:??heparin ?VTE Prophylaxis Assessment:??VTE Prophylaxis Ordered ?? Code Status:??full code ?Order Code Status:??Code Status Ordered ?? Discharge Planning:? Histories Allergies Allergies ?(Active and Proposed Allergies Only) sulfa drugs? (Severity: Unknown severity, Onset: Unknown) ?Reactions: swelling, shortness of breath metFORMIN? (Severity: Unknown severity, Onset: Unknown) ?Reactions: GI Upset sulfADIAZINE? (Severity: Unknown severity, Onset: Unknown) ?Reactions: swell up ? 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 Past Surgical History Laparoscopic cholecystostomy Hernia of abdominal wall Breast biopsy and related procedures ? Social History Alcohol Details:??Use: Never. Substance Abuse Details:??Use: Never. Tobacco Details:??Use: Former smoker, quit more than 30 days ago. ? Psychosocial History ? Family History Mother: Cancer of ovary Father: COPD ? Travel History Travel Outside [facility]: No ? Functional Assessments Ambulatory devices needed: Walker ? History No previous pregnancies history have been recorded ? Medications Home Medications Acetaminophen (acetaminophen 650 mg oral tablet, extended release)?1?tab(s)?650?Milligram?By Mouth?Every 8 hours?as needed?Pain , Moderate?TAKE ONE TABLET EVERY 8 HOURS NEEDED FOR PAIN Albuterol (Ventolin HFA 108 mcg/inh inhalation aerosol with adapter)?INHALE TWO PUFFS EVERY 6 HOURS NEEDED FOR COUGH OR FOR WHEEZING Aspirin (Aspirin Tablet)?325?Milligram?By Mouth?Daily Azelastine Nasal (azelastine 137 mcg/inh (0.1%) nasal spray)?USE TWO SPRAYS IN EACH NOSTRIL TWICE DAILY Cetirizine (cetirizine 10 mg oral tablet)?1?tab(s)?10?Milligram?By Mouth?Daily?TAKE ONE TABLET DAILY Cholecalciferol (Vitamin D3 5000 intl units oral tablet)?1?tab(s)?5,000?International Unit?By Mouth?Daily Cyanocobalamin (Vitamin B-12 1000 mcg oral tablet)?1,000?Microgram?1?tablet?By Mouth?Daily?TAKE ONE TABLET BY MOUTH EVERY DAY Diclofenac Topical (diclofenac 1% topical gel)?APPLY 2 GRAM'S TO AFFECTED AREA(s) TWICE DAILY ASNEEDED Diclofenac Topical (diclofenac 1% topical gel)?APPLY ONE GRAM TO THE AFFECTED AREA(s) TWICE DAILY Docusate (Docusate Sodium Capsule)?100?Milligram?1?capsule?By Mouth?2 times a day fluticasone/umeclidinium/vilanterol (Trelegy Ellipta inhalation powder)?1?puff(s)?Inhalation?Daily?as needed?Wheezing/Shortness of Breath?INHALE ONE PUFFS BY MOUTH into lungs EVERY DAY, RINSE MOUTH AFTER USE HydrOXYzine (hydrOXYzine hydrochloride 50 mg oral tablet)?TAKE ONE TABLET TWICE DAILY FOR 10 DAYS Miscellaneous Rx (vuvpujvktzdg-hbyjspbj-oaab fumarate 7.5 mg-folic acid 400 mcg tablet)?Take 1 Tablet by mouth daily. Miscellaneous Rx (cholecalciferol (vitamin D3) 25 mcg (1,000 unit) tablet)?TAKE ONE TABLET DAILY Miscellaneous Rx (baclofen 10 mg tablet)?TAKE ONE TABLET TWICE DAILY Multivitamin (Total B with C oral tablet)?TAKE ONE TABLET BY MOUTH EVERY DAY Naproxen (naproxen 500 mg oral tablet)?TAKE ONE TABLET BY MOUTH TWICE DAILY WITH MEALS Nystatin Topical (nystatin topical 996801 u/gm cream)?APPLY TO THE AFFECTED AREA(S) THREE TIMES DAILY semaglutide (Ozempic 8 mg/3 mL (2 mg dose) subcutaneous solution)?Every Monday?INJECT 2mg's SUBCUTANEOUSLY ONCE WEEKLY Thiamine (Vitamin B1 100 mg oral tablet)?100?Milligram?1?tablet?By Mouth?Daily?TAKE ONE TABLET BY MOUTH EVERY DAY ? Inpatient Medications Medications (33) Active SCHEDULED: (15) Aspirin 325 mg EC Tablet (Aspirin Tablet) ??325 mg, By Mouth, Daily Breo Ellipta 200 mcg / 25 mcg Inhaler (Breo Ellipta 200 mcg-25 mcg Inhaler) ??1 puffs, Inhalation, Daily Cetirizine 5 mg Tablet (cetirizine 5 mg oral tablet) ??10 mg, By Mouth, Daily Docusate Sodium 100 mg Capsule (Docusate Sodium Capsule) ??100 mg 1 capsule, By Mouth, 2 times a day Folic Acid 1 mg Tablet (folic acid 1 mg oral tablet) ??1 mg, By Mouth, Daily Heparin 5000 units/mL Inj (1 mL) (Heparin Inj) ??5,000 units 1 mL, Subcutaneous Injection, 3 times a day Insulin Lispro 100 units/mL Inj (3mL) (Insulin LISPRO Sliding Scale) ??2-10 units, Subcutaneous Injection, 3 times a day before meals Multivitamin Tablet ??1 tablet, By Mouth, Daily NaCl 0.9% Flush 3ml (NaCL 0.9% Flush) ??3 mL, IV Push, Every 8 hours Naproxen 250 mg Tablet (naproxen 250 mg oral tablet) ??500 mg, By Mouth, 2 times a day with meals Oxymetazoline 0.05% Nasal [place] (Afrin Nasal) ??1 sprays, Nares, Both, 2 times a day Spiriva Respimat 2.5 mcg Inhaler (Spiriva Respimat Inhaler) ??2 puffs, Inhalation, Daily Thiamine 100 mg Tablet (Vitamin B1 100 mg oral tablet) ??100 mg, By Mouth, Daily Vitamin B-12 ??1000 mcg Tablet (Vitamin B-12 1000 mcg oral tablet) ??1,000 mcg, By Mouth, Daily Vitamin D 1000 IU Tablet (cholecalciferol 1000 intl units oral capsule) ??6,000 International_Units, By Mouth, Daily CONTINUOUS: (0) PRN: (18) Acetaminophen 325 mg Tablet (Acetaminophen Tablet) ??650 mg, By Mouth, Every 8 hours Acetaminophen 325 mg Tablet (Acetaminophen Tablet) ??650 mg, By Mouth, Every 4 hours Albuterol 0.083% Inhalation Solution (Albuterol 0.083% inhalation perla) ??2.5 mg 3 mL, BAND Nebulizer, Every 4 hours Dextrose Inj Syringe (Dextrose 50% Inj Syringe (25Gm)) ??12.5 Gm, IV Push Slowly, Every 20 minutes Dextrose Inj Syringe (Dextrose 50% Inj Syringe (25Gm)) ??25 Gm, IV Push Slowly, Every 15 minutes Glucagon 1 mg Inj (Glucagon Inj) ??1 mg, Intramuscular, Once Glucose 40% Gel (15 Gm) (Glucose Gel) ??15 Gm, By Mouth, Every 20 minutes Glucose 40% Gel (15 Gm) (Glucose Gel) ??30 Gm, By Mouth, Every 20 minutes HYDROmorphone 0.5 mg/0.5 mL Inj Syringe (Dilaudid Inj) ??0.5 mg 0.5 mL, IV Push Slowly, Every 4 hours Melatonin 3 mg Tablet (Melatonin Tablet) ??3 mg, By Mouth, Daily at bedtime NaCl 0.9% Flush 3ml (NaCL 0.9% Flush) ??3 mL, IV Push, Every 8 hours Ondansetron 2mg/mL Inj (2mL Vial) (Ondansetron Inj) ??4 mg, IV Push, Every 6 hours OxyCODONE 5 mg IR Tablet (oxyCODONE 5 mg oral tablet) ??5 mg, By Mouth, Every 6 hours OxyCODONE 5 mg IR Tablet (oxyCODONE 5 mg oral tablet) ??5 mg, By Mouth, Every 6 hours Polyethylene Glycol 17 Gm Powder (MiraLax Powder) ??17 Gm 1 pack/packet, By Mouth, Daily Senna Tablet ??8.6 mg 1 tablet, By Mouth, 2 times a day Simethicone 80 mg Chewable Tablet (Simethicone Tablet) ??80 mg, Chew, 3 times a day Tizanidine 4 mg Tablet (tiZANidine 4 mg oral tablet) ??2 mg, By Mouth, 3 times a day ? Vaccinations and Immunoprophylaxis SARS-CoV-2 (COVID-19) mRNA-1273 vaccine: 0.5 mL (06/23/20 09:35:00) SARS-CoV-2 (COVID-19) mRNA-1273 vaccine: 0.5 mL (05/26/20 13:51:00) ? Durable Medical Equipment Discharge recommendations: Home with services (11/22/22) Name of Agency #1: [facility] (11/22/22) Agency [facility]1: [phone] (11/22/22) Service Categories #1: Occupational Therapy, Physical Therapy, Nursing Home (11/22/22) Service Comments #1: You will be discharged home with services through [facility]. ??You will recievea call 1-2 days to arrange a visit. ??Please call [phone] withquestions or concerns (11/22/22) Ambulatory devices needed: Walker (06/11/23) ? Results Recent Labs BLOOD COUNT & DIFF WBC 6.5 k/mm3 ()?? 06/10/2023 11:40 RBC 4.32 m/mm3 ()?? 06/10/2023 11:40 Hgb 12.2 Gm/dL ()?? 06/10/2023 11:40 Hct 39.0 % ()?? 06/10/2023 11:40 MCV 90.3 femtoliters ()?? 06/10/2023 11:40 MCH 28.2 pg ()?? 06/10/2023 11:40 MCHC 31.3 g/dL (Low)?? 06/10/2023 11:40 Platelet Count 298 k/mm3 ()?? 06/10/2023 11:40 RDW-SD 44.8 femtoliters ()?? 06/10/2023 11:40 MPV 10.0 femtoliters ()?? 06/10/2023 11:40 Nucleated RBC (Automated) 0.0 #/100 WBC'S ()?? 06/10/2023 11:40 Abs. NRBC 0.0 k/mm3 ()?? 06/10/2023 11:40 Abs. Neut 4.2 k/mm3 ()?? 06/10/2023 11:40 Abs. Lymph 1.3 k/mm3 ()?? 06/10/2023 11:40 Abs. Amelia 0.6 k/mm3 ()?? 06/10/2023 11:40 Abs. Eo 0.3 k/mm3 ()?? 06/10/2023 11:40 Abs. Baso 0.1 k/mm3 ()?? 06/10/2023 11:40 Neut % 64.2 % ()?? 06/10/2023 11:40 Lymph % 20.2 % ()?? 06/10/2023 11:40 Amelia % 9.1 % ()?? 06/10/2023 11:40 Eos % 4.3 % ()?? 06/10/2023 11:40 Baso % 1.9 % ()?? 06/10/2023 11:40 Imm Gran 0.3 % ()?? 06/10/2023 11:40 Abs. Imm Gran 0.0 k/mm3 ()?? 06/10/2023 11:40 ?? CHEM GENERAL Sodium 144 mmol/L ()?? 06/10/2023 11:40 Potassium 3.4 mmol/L (Low)?? 06/10/2023 11:40 Chloride 111 mmol/L (High)?? 06/10/2023 11:40 Bicarbonate Level 18 mmol/L (Low)?? 06/10/2023 11:40 Anion Gap 15 ()?? 06/10/2023 11:40 Glucose Level 87 mg/dL ()?? 06/10/2023 11:40 Glucose, POC 96 mg/dL ()?? 06/11/2023 12:50 BUN 14 mg/dL ()?? 06/10/2023 11:40 Creatinine-Blood 1.1 mg/dL (High)?? 06/10/2023 11:40 Estimated GFR Creatinine 56 ML/MIN/1.73 M2 ()?? 06/10/2023 11:40 Calcium 9.6 mg/dL ()?? 06/10/2023 11:40 Protein, Total 6.4 Gm/dL ()?? 06/10/2023 11:40 Albumin 4.3 Gm/dL ()?? 06/10/2023 11:40 AG Ratio 2.0 ()?? 06/10/2023 11:40 Alkaline Phosphatase 216 units/L (High)?? 06/10/2023 11:40 Lipase 50 units/L ()?? 06/10/2023 11:40 AST (SGOT) 21 units/L ()?? 06/10/2023 11:40 ALT (SGPT) 14 units/L ()?? 06/10/2023 11:40 Bilirubin, Total 0.3 mg/dL ()?? 06/10/2023 11:40 C-Reactive Protein <0.3 mg/dL ()?? 06/10/2023 16:29 ?? HEME OTHER Sed Rate 20 mm/hr ()?? 06/10/2023 16:29 ?? UA/URINALYSIS Appear/Color, Urine YELLOW ()?? 06/10/2023 16:08 Specific [place], Urine 1.046 (High)?? 06/10/2023 16:08 pH, Urine 6.5 ()?? 06/10/2023 16:08 Albumin, Urine TRACE (Abnormal)?? 06/10/2023 16:08 Glucose, Urine NEGATIVE ()?? 06/10/2023 16:08 Ketones, Urine NEGATIVE ()?? 06/10/2023 16:08 Bilirubin, Urine NEGATIVE ()?? 06/10/2023 16:08 Hemoglobin, Urine NEGATIVE ()?? 06/10/2023 16:08 Nitrite, Urine NEGATIVE ()?? 06/10/2023 16:08 Leukocyte, Urine NEGATIVE ()?? 06/10/2023 16:08 Urobilinogen NORMAL mg/dL ()?? 06/10/2023 16:08 WBC's, Urine 2 /HPF ()?? 06/10/2023 16:08 RBC's, Urine 1 /HPF ()?? 06/10/2023 16:08 Bacteria SLIGHT HPF (Abnormal)?? 06/10/2023 16:08 Squamous Epith <1 /HPF ()?? 06/10/2023 16:08 Hold Urine Culture Testing available 48 hours from time of collection. ()?? 06/10/2023 16:08 ?? URINE OTHER Est Creatinine Clearance 35.36 mL/min ()?? 06/10/2023 12:30 ?? VIROLOGY Influenza A PCR NEGATIVE ()?? 06/10/2023 12:58 Influenza B PCR NEGATIVE ()?? 06/10/2023 12:58 RSV PCR NEGATIVE ()?? 06/10/2023 12:58 COVID-19 PCR Specimen Source NASAL ()?? 06/10/2023 12:58 COVID-19 PCR Result NEGATIVE ()?? 06/10/2023 12:58 ? Abnormal Labs ?? UA/URINALYSIS ??Albumin, Urine ??TRACE (Abnormal) ??06/10/2023 16:08 ??Appear/Color, Urine ??YELLOW () ??06/10/2023 16:08 ??Bacteria ??SLIGHT HPF (Abnormal) ??06/10/2023 16:08 ??Bilirubin, Urine ??NEGATIVE () ??06/10/2023 16:08 ??Glucose, Urine ??NEGATIVE () ??06/10/2023 16:08 ??Hemoglobin, Urine ??NEGATIVE () ??06/10/2023 16:08 ??Hold Urine Culture ??Testing available 48 hours from time of collection. () ??06/10/2023 16:08 ??Ketones, Urine ??NEGATIVE () ??06/10/2023 16:08 ??Leukocyte, Urine ??NEGATIVE () ??06/10/2023 16:08 ??Nitrite, Urine ??NEGATIVE () ??06/10/2023 16:08 ??Specific [place], Urine ??1.046 (High) ??06/10/2023 16:08 ??Urobilinogen ??NORMAL mg/dL () ??06/10/2023 16:08 ? Note: Critical results are displayed in red. ? Blood Glucose Trend Glucose, POC: 96 mg/dL (06/11/23 12:50:00) Glucose, POC: 78 mg/dL (06/11/23 07:59:00) ? CBC, CBC w/Diff?? No qualifying data available. ?? BMP, Mg, and Phos?? No qualifying data available. ?? Coagulation Profile?? No qualifying data available. ?? LFT?? No qualifying data available. ?? Urinalysis Albumin, Urine: TRACE Abnormal (16:08) Appear/Color, Urine: YELLOW (16:08) Bacteria: SLIGHT Abnormal (16:08) Bilirubin, Urine: NEGATIVE (16:08) Glucose, Urine: NEGATIVE (16:08) Hemoglobin, Urine: NEGATIVE (16:08) Hold Urine Culture: Testing available 48 hours from time of collection. (16:08) Ketones, Urine: NEGATIVE (16:08) Leukocyte, Urine: NEGATIVE (16:08) Nitrite, Urine: NEGATIVE (16:08) pH, Urine: 6.5 (16:08) RBC's, Urine: 1 /HPF (16:08) Specific [place], Urine:??1.046??High (16:08) Squamous Epith: <1 (16:08) Urobilinogen: NORMAL (16:08) WBC's, Urine: 2 /HPF (16:08) ?? Microbiology ?? COVID-19, RSV, and Flu A/B, Rapid PCR?? Completed?? Source: Nasal Body Site: Nose Collected Dt/Tm: 06/10/2023 11:33 Last Updated Dt/Tm: 06/10/2023 14:35 ? Blood Gases?? No qualifying data available. ?? Uric/LDH?? No qualifying data available. ?? Cardiology * Event Display: Cardiac Rhythm Strips Authored Date: Hospital Progress note * Muna Gan RN: MODIFY, SIGN, VERIFY, PERFORM Event Display: Progress Note Hospital Authored Date: Patient: YANET KING Age: 67 years Sex: Female : 1955 Associated Diagnoses: None Author: Muna Gan RN Findings Problem Related to Alteration in Neurological : Alteration in Neurological Function/new 06/18/2023 12:06 EDT Alteration in Neuro status Related to Other: pain control Goals & Outcomes, Neurological Lab studies/diagnostic tests within pt specific limits, Pt is safe with transfers & activities, Pt will be discharged without infection, Pt will be Neurologically stable, Pt will become pain free with appropriate intervention, Pt will maintain intact skin integrity, Pt will remain free from injury, Pt/caregiver will state understanding of the D/C plan, Pt will state importance of adhering to medication regime, Pt/caregiver will receive psychosocial supportas needed, Pt/caregiver will state understanding of plan/goals of care Interventions, Neurological Elevate HOB & keep head midline in sniffing position, Maintain EVD & document drainage amount/color, Maintain ICP monitor & document readings, Minimize neuro stimulation Goals/Interventions, Neurological Yes Neurological, Problem Start 06/11/2023 18:00 Reviewed plan with, Neurological Patient Patient Progression, Neurological Pt progressing according to plan . Alteration in Safety : Alteration in Safety/new 06/18/2023 12:06 EDT Alteration in Safety Related to Other: fall risk Goals & Outcomes, Safety Pt will remain safe & injury free Interventions, Safety Provide info on community resources for education, support, Provide teaching as needed Goals/Interventions, Safety Yes Safety, Problem Start 06/17/2023 20:04 Reviewed plan with, Safety Patient Patient Progression, Safety Pt progressing according to plan . Nursing Data Vital Signs : VITAL SIGNS SECTION 06/18/2023 7:48 EDT Early Warning Score 4.00 06/18/2023 7:48 EDT Temperature 97.1 DegF Temperature Route Temporal Pulse Rate 75 bpm Respiratory Rate 20 br/min Systolic Blood Pressure 137 mm Hg Diastolic Blood Pressure 77 mm Hg Blood pressure sites Arm, right Mean Arterial Pressure 97 mm Hg Pulse Pressure 60 mm Hg Oxygen Saturation 94 % Mode of Delivery (Oxygen) Room air . Narrative/Incidental Patient is alert and oriented X4. Patient remains on room air, and lung sounds clear and diminishedat bases. Patient is continent and utilizes restroom. Patient is 1 assist with rolling walker for ambulation. Last BM 06/17/23. Patient complains of generalized back pain and PRN and scheduled medications administered with moderate relief. Patient continues on q4 neuro's and they remain unremarkable. Patient dressing to back from kyphoplasty remain in place. Plan of care reviewed with patient. Frequent rounding performed and safety maintained. Patient received orders to be discharged. Dischargedinstructions and medications reviewed with patient who verbalized understanding. Patient escorted off unit with all personal belongings at 13:45.. Discharge Information Rehabilitation Discharge : Rehab Discharge Index 06/13/2023 12:19 EDT Walker: distance >50 * Jitendra Gleason MD: PERFORM, MODIFY, MODIFY Event Display: Progress Note Hospital Authored Date: [id number] Patient: ??YANET KING ? Age:??67 Years?Sex:??Female?:??1955?? History of Present Illness Yanet reports significant improvement in her pain. ??She is able to ambulate to the bathroom herewith a rolling walker without difficulty. Physical Exam Vitals & Measurements T:??97.1?F?? HR:??75??(Peripheral)?? RR:??20?? BP:??137/77?? SpO2:??94%?? HT:??152??cm?? WT:??58.8??kg?? BMI:??25.45?? Measurements?? Height: 152 cm (06/17/23) Weight: 58.8 kg (06/11/23) Dry Weight: 63 kg (06/11/23) Body Mass Index:??25.45 kg/m2??High (06/11/23) ?? Gen: Alert, oriented?? in NAD ?? Neuro: ?? MMT:??Essentially full throughout. ?? Bed mobility transfers and ambulation independent with rolling walker. ??She walked out her roomturned around and came back without difficulty.?She reported only minimal pain when ambulating. ?? Assessment/Plan 67 year-old female with known history of failed back syndrome, secondary to??L2- 5??spine surgery??and with??implanted spinal cord stimulator.?? Patient reports??3 months history of progressive leg weakness??and 2 or 3 weeks ago fell down, resulting in??bilateral sixth??rib fracture,??L2 spinous process and??sacral fracture and T11 compression fracture. Kyphoplasty done on 06/15??with subsequent excellent improvement in pain. ?? RECOMMENDATIONS: ?? She can be safely discharged home today. She is very pleased with that??and??does not have any concerns. She lives with her daughter and granddaughter who can help her somewhat. ?? No need for PT follow-up here. ?? I am not sure whether baclofen??is benefiting her??as it is mostly a spasmolytics though at times used for muscle pain.?? Her current pain??seems to be mostly fracture related. I suggested that she try??stopping it or taking half a pill for a few days and then stopping it to see whether it is benefiting her at all. ?? Case d/w Dr. Sharma?? Problem List/Past Medical History Ongoing Asthma-COPD overlap syndrome Chronic sacroiliac joint pain Diabetes mellitus due to underlying condition with diabetic neuropathy, unspecified Hyperlipidemia Procedure/Surgical History Laparoscopic cholecystostomy Hernia of abdominal wall Breast biopsy and related procedures Patient Education Titles Web[employer] Patient Education - Kyphoplasty?? [employer] Patient Education - Vertebral Compression Fracture?? Follow-Up Appointments Added Follow Up ?Time Frame ?Comments Forrest BENNETT MD, Ayan Esqueda?1 to 2 weeks?Sharma Lab Results PM&R Labs WBC: 6.8 k/mm3 (06/18/23) Platelet Count: 204 k/mm3 (06/18/23) Sodium: 140 mmol/L (06/18/23) BUN: 17 mg/dL (06/18/23) Creatinine-Blood: 1 mg/dL (06/18/23) AST (SGOT): 21 units/L (06/10/23) ALT (SGPT): 14 units/L (06/10/23) * Marques Ambrose RN: PERFORM, SIGN, VERIFY Event Display: Progress Note Hospital Authored Date: [id number] Patient: YANET KING Age: 67 years Sex: Female : 1955 Associated Diagnoses: None Author: Marquse Ambrose RN Findings Problem Related to Alteration in Neurological : Alteration in Neurological Function/new 06/17/2023 20:33 EDT Alteration in Neuro status Related to Other: pain control Goals & Outcomes, Neurological Lab studies/diagnostic tests within pt specific limits, Pt is safe with transfers & activities, Pt will be discharged without infection, Pt will be Neurologically stable, Pt will become pain free with appropriate intervention, Pt will maintain intact skin integrity, Pt will remain free from injury, Pt will state importance of adhering to medication regime, Pt /caregiver will receive psychosocial support as needed, Pt/caregiver will state understanding of plan/goals of care, Pt/caregiver will state understanding of the D/C plan Interventions, Neurological Assess/monitor for abnormal posturing, Assess/monitor for gaze pattern/extraocular movements, Assess/monitor for increased Intracranial Pressure, Assess/monitor neurologicstatus, Assess/monitor VS per unit standards & prn, Call/Report variances in assessments to provider, Collaborate w/ provider to implement appropriate guidelines, Collaborate with Nutrition, Collaborate with provider re: medication regime, Document & Monitor O2 Sats; Administer O2 as ordered, Emergency airway equipment at bedside, Identify psychosocial issues related to diagnosis/illness,If no bowel movement in 3 days activate bowel regime, Keep patient's head & body in good alignment, Maintain normothermia, report temp >101.5 F, Maintain patient safety if unsteady gait, Maintain strict intake & output, Monitor Fluid & Electrolytes, Serum Osmolarity, Monitor for headaches, nausea, vomiting, Monitor speech fluency, aphasia, word finding difficulty, Physical assessment per unit standards, Provide emotional support to Pt/caregiver, Teach & encourage deep breath & cough exercises, Teach and encourage use of Incentive spirometer, Teach pt/caregiver dischargeplan & follow up care, Teach pt/caregiver on plan of care, treatment, s/s & meds, Teach pt/caregiver on use of pain scale Goals/Interventions, Neurological Yes Neurological, Problem Start 06/11/2023 18:00 Reviewed plan with, Neurological Patient Patient Progression, Neurological Pt progressing according to plan . Alteration in Safety : Alteration in Safety/new 06/17/2023 20:33 EDT Alteration in Safety Related to Other: fall risk Goals & Outcomes, Safety Pt will remain safe & injury free Interventions, Safety Provide info on community resources for education, support, Provide teaching as needed Goals/Interventions, Safety Yes Safety, Problem Start 06/17/2023 20:04 Reviewed plan with, Safety Patient Patient Progression, Safety Pt progressing according to plan . Nursing Data Cardiac Data. : Cardiac Data. 06/18/2023 4:00 EDT Cardiovascular Assessment Status Unchanged from recorder's assessment 06/18/2023 0:59 EDT Hgb 11.7 Gm/dL Hct 37.2 % 06/17/2023 20:30 EDT Cardiovascular WNL . Gastrointestinal Data. : Gastrointestinal Data. 06/18/2023 4:00 EDT Gastrointestinal Assessment Status Unchanged from recorder's assessment 06/17/2023 20:30 EDT Last Bowel Movement 06/16/2023 GI WNL Normal Bowel Pattern Daily . Genitourinary Data. : Genitourinary Data. 06/18/2023 4:00 EDT Genitourinary Assessment Status Unchanged from recorder's assessment 06/17/2023 20:30 EDT WNL . Neurological Data. : Neurological Data. 06/18/2023 4:00 EDT Neurological Assessment Status Unchanged from recorder's assessment 06/18/2023 0:00 EDT Neurological Assessment Status Unchanged from recorder's assessment 06/17/2023 22:15 EDT Pain Intensity 1 Pain Intensity Not Done: will exceed 4G in the last 24hrs. (Not Done) 06/17/2023 20:30 EDT Neurological Symptoms Back pain, Unsteady gait/Ataxia, Weakness or loss of muscle strength Level of Consciousness Full Consciousness Orientated to person, place, time Person, Place, Time, Event Hallucinations None Facial Symmetry Intact Characteristics of Speech Clear and normal Pupil description, left Regular Pupil description, right Regular Pupil reaction, left Brisk Pupil reaction, right Brisk Strength LUE 4-Active movement against gravity & some resistance Strength RUE 4-Active movement against gravity & some resistance Strength LLE 4-Active movement against gravity & some resistance Strength RLE 4-Active movement against gravity & some resistance Tone LUE Normal Tone RUE Normal Tone LLE Normal Tone RLE Normal Sensation LUE Intact Sensation RUE Intact Sensation LLE Intact Sensation RLE Intact Movement LUE Spontaneous Movement RUE Spontaneous Movement LLE Spontaneous Movement RLE Spontaneous Response Eye Opening Spontaneously Motor Response-Adult Obeys commands Verbal Response-Adult Oriented and converses Shiner Coma Score 15 1 - 10 Pain Scale Score 1 Pain Interventions Non-pharmacological, Pharmacological, PRN medication, Repositioning, Rest Neuro WNL except Eyes and Movements Conjugate gaze: Move in same direction at same speed Swallow - Neuro Normal . Respiratory/Pulmonary Data. : Respiratory/Pulmonary Data. 06/18/2023 4:00 EDT Mode of Delivery (Oxygen) Room air Respiratory Assessment Status Unchanged from recorder's assessment 06/17/2023 23:00 EDT Mode of Delivery (Oxygen) Room air 06/17/2023 20:30 EDT Respiratory WNL . Narrative/Incidental P: See plan of cares. I: See interventions. E: Upon initial assessment, patient alert and orientated x4. Complains of back pain, tx per MAR with good effect. No edema noted. On room air sating WNL. Tolerating diet, LBM 06/15. Ambulating with walker and one assistance to the bathroom. 2 surgical sites noted in back, C/D/I with noted shadowing.Patient is resting and safety maintained. Please see [facility] for further assessments and data, thank you. . Discharge Information Rehabilitation Discharge : Rehab Discharge Index 06/13/2023 12:19 EDT Walker: distance >50 Consult note * Jose ROGERS, Vega Mcintosh: PERFORM Event Display: Consultation Note Authored Date: [id number] Patient: ??LUIS, YANET ? Age:??67 Years?Sex:??Female?:??1955?? Provider Clinical Summary severe pain - recommending kyphoplasty Reason for Consultation fracture History of Present Illness I was asked to see this??unfortunate lady in consultation concerning the potential for treatment ofa recently diagnosed??T11 vertebral compression fracture by kyphoplasty. ??I met with the patient in??her room for a??[id number] consultation with excess of 25 minutes??to discuss the procedure discuss ??the findings of??CT and MRI??imaging, discuss expected outcomes and next steps. ?? In summary??this unfortunate lady with multiple medical problems??including??diabetes, COPD, ??severe degenerative joint disease affecting both hips??radiographically more prominent on the left but sy mptomatically more on the right??has a recently diagnosed T11 vertebral compression fracture. ??In addition she has had multiple??problems with lumbar spine fractures and multiple screws. ??She has aspinal stimulator. ?She is having difficulty in getting up and about due to the pain. The pain has been present for up to six months but got worse over the last 2 week. ??She is reasonably comfortable lying flat and still,??but has trouble moving due to severe pain. ??In addition to the pain??there is some weakness?? in her right hip such that she has problems??lifting her right knee.?? However I note that bilateral dorsiflexion and plantarflexion is impaired.?? We had a long discussion. ??Her MRI??demonstrates??an acute??T11 vertebral compression fracture.?? This has a configuration which is suitable for??kyphoplasty. ??It does not appear to be??in?? correct configuration??to be accounting for??right hipweakness. ??On review of the CT images and the MRI images there is no evidence of??compression of the spinal cord immediately above or below the fracture??nor is evidence of significant??neuroforaminal narrowing to account for the right hip weakness. ??I therefore think that??the presence of the sym ptoms is not a contraindication. to kyphoplasty. ??I understand that she is due to have??hip replacement at some time??in the is in the future??with the right being replaced before the left even though the radiographic??severity is greatest on the left. Review of Systems Patient also has diabetes, hyperlipidemia and COPD. Physical Exam Vitals & Measurements T:??97.1?F?? TMIN:??97?F?? TMAX:??98.4?F?? HR:??83??(Peripheral)?? RR:??20?? BP:??151/86??SpO2:??98%?? She is lying stiffly in bed. ??She has difficulty moving around. ??Flexion of the right hip??is somewhat impaired by pain and weakness.?? It is hard to see a reason for this arising from the T11 vertebral compression fracture. ??Flexion extension of the right knee and dorsiflexion and plantarflexion in both feet is normal. ?? Assessment/Plan T11 kyphoplasty. ??The earliest we will be able to get this scheduled?? with anesthesia will be??atthe end of this week, Monday??15 June. ??We will make the arrangements. ??I discussed with her whether she would be discharged home in advance of that. ??This is entirely up to her other physicians. ??If it is thought appropriate for her to be discharged to home??or to??rehab she would need to come back??for a day stay for the procedure to be is a??day stay procedure. ??It may well be in her best interests in particular in terms of Pain control??for her to remain as inpatient until Monday. Total Time Spent over 25??minutes Problem List/Past Medical History Ongoing Asthma-COPD overlap syndrome Chronic sacroiliac joint pain Diabetes mellitus due to underlying condition with diabetic neuropathy, unspecified Hyperlipidemia Procedure/Surgical History ???Breast biopsy and related procedures???Hernia of abdominal wall???Laparoscopic cholecystostomy Medications Inpatient Acetaminophen Tablet, 975 mg, By Mouth, Every 6 hours Afrin Nasal, 1 sprays, Nares, Both, 2 times a day, PRN Albuterol 0.083% inhalation perla, 2.5 mg= 3 mL, BAND Nebulizer, Every 4 hours, PRN Bisacodyl Supp, 10 mg= 1 supp, Rectally, Daily, PRN Breo Ellipta 200 mcg-25 mcg Inhaler, 1 puffs, Inhalation, Daily cetirizine 5 mg oral tablet, 10 mg, By Mouth, Daily cholecalciferol 1000 intl units oral capsule, 6000 International_Units, By Mouth, Daily Dextrose 50% Inj Syringe (25Gm), 12.5 Gm, IV Push Slowly, Every 20 minutes, PRN Dextrose 50% Inj Syringe (25Gm), 25 Gm, IV Push Slowly, Every 15 minutes, PRN Dilaudid Inj, 0.5 mg= 0.5 mL, IV Push Slowly, Every 4 hours, PRN folic acid 1 mg oral tablet, 1 mg, By Mouth, Daily Glucagon Inj, 1 mg, Intramuscular, Once, PRN Glucose Gel, 15 Gm, By Mouth, Every 20 minutes, PRN Glucose Gel, 30 Gm, By Mouth, Every 20 minutes, PRN Heparin Inj, 5000 units= 1 mL, Subcutaneous Injection, 3 times a day Insulin LISPRO Sliding Scale, 2-10 units, Subcutaneous Injection, 3 times a day before meals Lansoprazole OD Tablet, 15 mg, By Mouth, Daily Melatonin Tablet, 3 mg, By Mouth, Daily at bedtime, PRN MiraLax Powder, 17 Gm= 1 pack/packet, By Mouth, Daily Multivitamin Tablet, 1 tablet, By Mouth, Daily NaCL 0.9% Flush, 3 mL, IV Push, Every 8 hours NaCL 0.9% Flush, 3 mL, IV Push, Every 8 hours, PRN naproxen 250 mg oral tablet, 500 mg, By Mouth, 2 times a day with meals Ondansetron Inj, 4 mg, IV Push, Every 6 hours, PRN oxyCODONE 5 mg oral tablet, 5 mg, By Mouth, Every 6 hours, PRN oxyCODONE 5 mg oral tablet, 5 mg, By Mouth, Every 6 hours, PRN Senna 8.6 mg oral tablet, 17.2 mg= 2 tablet, By Mouth, Daily Simethicone Tablet, 80 mg, Chew, 3 times a day, PRN Spiriva Respimat Inhaler, 2 puffs, Inhalation, Daily tiZANidine 4 mg oral tablet, 2 mg, By Mouth, 3 times a day, PRN Vitamin B-12 1000 mcg oral tablet, 1000 mcg, By Mouth, Daily Vitamin B1 100 mg oral tablet, 100 mg, By Mouth, Daily Home acetaminophen 650 mg oral tablet, extended release, 650 mg= 1 tablet, By Mouth, Every 8 hours, PRN Aspirin Tablet, 325 mg, By Mouth, Daily azelastine 137 mcg/inh (0.1%) nasal spray baclofen 10 mg tablet cetirizine 10 mg oral tablet, 10 mg= 1 tablet, By Mouth, Daily cholecalciferol (vitamin D3) 25 mcg (1,000 unit) tablet diclofenac 1% topical gel diclofenac 1% topical gel Docusate Sodium Capsule, 100 mg= 1 capsule, By Mouth, 2 times a day hydrOXYzine hydrochloride 50 mg oral tablet djltlrsuugka-djsujplc-lpac fumarate 7.5 mg-folic acid 400 mcg tablet naproxen 500 mg oral tablet nystatin topical 507809 u/gm cream Ozempic 8 mg/3 mL (2 mg dose) subcutaneous solution, Every Monday Total B with C oral tablet Total B with C oral tablet Trelegy Ellipta inhalation powder, 1 puffs, Inhalation, Daily, PRN Ventolin HFA 108 mcg/inh inhalation aerosol with adapter Vitamin B-12 1000 mcg oral tablet, 1000 mcg= 1 tablet, By Mouth, Daily Vitamin B1 100 mg oral tablet, 100 mg= 1 tablet, By Mouth, Daily Vitamin D3 5000 intl units oral tablet, 5000 International_Units= 1 tablet, By Mouth, Daily Allergies metFORMIN??(GI Upset) sulfADIAZINE??( swell up ) sulfa drugs??(swelling, shortness of breath) Social History Alcohol Use: Never. Substance Abuse Use: Never. Tobacco Use: Former smoker, quit more than 30 days ago. Family History COPD: Father. Cancer of ovary: Mother. Immunizations Vaccine Date Status SARS-CoV-2 (COVID-19) mRNA-1273 vaccine 06/23/2020 Given SARS-CoV-2 (COVID-19) mRNA-1273 vaccine 05/26/2020 Given * Vj Velasco MD: PERFORM Event Display: Consultation Note Authored Date: [id number] Patient: ??LUIS, YANET ? Age:??67 Years?Sex:??Female?:??1955?? History of Present Illness 67-year-old female with past medical history significant for a L2-5 lumbar fusion??done within??thelast 10 years??as well as a spinal cord stimulator done within the last 5 years.?? She reports that??residual symptoms from the surgeries include numbness and tingling in both??lower extremities.?? She had a fall 2-3 weeks ago, but??progressive difficulty with ambulation for the last 3 months.?Progressive weakness in the lower extremities. ??No saddle anesthesias. ??MRI was done for workup??ofher symptoms and neurosurgery??is asked to review and evaluate patient.?No acute findings on MRIlumbar spine which demonstrates previous surgery and degenerative changes. CT of the pelvis revealed S3-4??sacral fracture.?? When asking the patient she points to the sacrumas area of maximum pain, although she reports neuropathic pain??to her right lower limb.?? She saidthat her spinal cord stimulator is adjusted??remotely. Review of Systems See HPI. ??Other systems were unremarkable. ??Patient reports pain level of??6- 01/03.?? Current medications are helping??her pain. The patient is pending??bilateral hip surgery. ??Endorses that some of her right leg pain is related to her hip arthritis. The patient uses a walker at home??she lives with her 12 years old daughter??and he to climb 12 steps to get access to her??home. Physical Exam Vitals & Measurements T:??97.8?F?? HR:??83??(Peripheral)?? RR:??18?? BP:??175/81?? SpO2:??95%?? HT:??152??cm?? WT:??58.8??kg?? BMI:??25.45?? General:??Alert.?? No apparent distress. Body habitus: Overweight.? HEENT: Cranial Nerves:??CN 2-12 normal, no central facial droop. EOMI.?? Blinks to threat??bilaterally Visual rodriguez:??Full. ?? Visual neglect:??None. ??Tracks:??Bilaterally ?? Cardiovascular:??RRR. Lungs:??No SOB Abdomen/GI:??NABS. NT. Soft. ?? Extremities:?? Edema:??None.?? Passive ROM:??Normal all limbs.? Skin:??No open areas or rash.? Neurologic?? Oriented:??X 3 Follows Commands:??1 step well. ?? Can cross body to well.?? Memory:??Normal.?? Language:??Normal. ?Naming:??Normal. ??Dysarthria:??None.? Motor Exam:?? Motor strength:??5/5??bilateral upper limbs,??2-3/5 left lower limb,??1- 2/5??right lower limb??(limited by pain).?? Pain mainly localized into??the groins and sacral region Sensory Exam: Neuropathic pain right lower limb,??no??following discrete dermatomal pattern Coordination Exam: finger to nose:??Normal, heel to bustamante: Unable to evaluate due to pain. Pronator drift:??Normal ?? Mobility Exam: gait:??UNSAFE TO EVAL.? Swallow: No issues Assessment/Plan Leg weakness (R29.898):??Chronic ?? Right leg pain (M79.604):??Appears??multifactorial,??component of??baseline??failed back syndrome??and arthritis. ?? Sacral fracture (S32.10XA):??New ?67 years old female with known history of failed back syndrome, secondary to??L2-5??spine surgery??and with??implanted spinal cord stimulator.?? Patient reports??3 months history of progressive legweakness??and 2 or 3 weeks ago fell down, resulting in??bilateral sixth??rib fracture,??L2 spinous process and??sacral fracture.?? Most pain??on the spine appears to be related to her sacral fracture, nevertheless the patient reports right lower extremity??pain which??may be multifactorial including??mechanical pain from her hip arthritis and??neuropathic pain. ?? RECOMMENDATIONS: ?? Activity:??Bed rest for now.?? Out of bed to chair when able ?? Bowel Regimen:??Monitor ?? Cognition/psychopharmacology:??Avoid benzodiazepines, anticholinergics and antipsychotics.? DVT prophylaxis: On subcutaneous heparin.? Musculoskeletal: Bilateral 6th??rib fracture,??L2 spinous process fracture and??sacral fracture at S3 and S4. ??Bilateral severe??hip arthritis.? Neurology: Neurosurgery signed off. ?? Pain Management: Change oxycodone from??as needed to scheduled??every 6 hours. ??Patient can refuse. ??Consider adding calcitonin spray for??painful fractures. Consider contacting??spinal cord stimulator??manufacturer representative??to see if reprogramming her device mayhelp with her??right lower extremity pain.? Spasticity:??None.? Swallow:??No dysphagia. ?? Current rehab treatment & further recommendations? Occupational Therapy: Not needed. ?? Physical Therapy:??Ordered. ?? Speech Therapy: Not needed.? Disposition: Most likely subacute rehab admission for pain control??and management of progressive lower extremity weakness. Problem List/Past Medical History Ongoing Asthma-COPD overlap syndrome Chronic sacroiliac joint pain Diabetes mellitus due to underlying condition with diabetic neuropathy, unspecified Hyperlipidemia Procedure/Surgical History Laparoscopic cholecystostomy Hernia of abdominal wall Breast biopsy and related procedures Home Medications Acetaminophen: 650 mg = 1 tablet, By Mouth, Every 8 hours, PRN (Pain , Moderate), TAKE ONE TABLET EVERY 8 HOURS NEEDED FOR PAIN Albuterol: INHALE TWO PUFFS EVERY 6 HOURS NEEDED FOR COUGH OR FOR WHEEZING Aspirin: 325 mg, By Mouth, Daily Azelastine Nasal: USE TWO SPRAYS IN EACH NOSTRIL TWICE DAILY Cetirizine: 10 mg = 1 tablet, By Mouth, Daily, TAKE ONE TABLET DAILY Cholecalciferol: 5,000 International_Units = 1 tablet, By Mouth, Daily Cyanocobalamin: 1,000 mcg = 1 tablet, By Mouth, Daily, TAKE ONE TABLET BY MOUTH EVERY DAY Diclofenac Topical: APPLY 2 GRAM'S TO AFFECTED AREA(s) TWICE DAILY NEEDED Diclofenac Topical: APPLY ONE GRAM TO THE AFFECTED AREA(s) TWICE DAILY Docusate: 100 mg = 1 capsule, By Mouth, 2 times a day fluticasone/umeclidinium/vilanterol: 1 puffs, Inhalation, Daily, PRN (Wheezing/Shortness of Breath), INHALE ONE PUFFS BY MOUTH into lungs EVERY DAY, RINSE MOUTH AFTER USE HydrOXYzine: TAKE ONE TABLET TWICE DAILY FOR 10 DAYS Miscellaneous Rx (dfhlrndniclc-vwuohqcl-saeg fumarate 7.5 mg-folic acid 400 mcg tablet): Take 1 Tablet by mouth daily. Miscellaneous Rx (cholecalciferol (vitamin D3) 25 mcg (1,000 unit) tablet) (cholecalciferol (vitamin D3) 25 mcg (1,000 unit) tablet): TAKE ONE TABLET DAILY Miscellaneous Rx (baclofen 10 mg tablet): TAKE ONE TABLET TWICE DAILY Multivitamin: TAKE ONE TABLET BY MOUTH EVERY DAY Multivitamin Naproxen: TAKE ONE TABLET BY MOUTH TWICE DAILY WITH MEALS Nystatin Topical: APPLY TO THE AFFECTED AREA(S) THREE TIMES DAILY semaglutide: Every Monday, INJECT 2mg's SUBCUTANEOUSLY ONCE WEEKLY Thiamine: 100 mg = 1 tablet, By Mouth, Daily, TAKE ONE TABLET BY MOUTH EVERY DAY Hospital Medications Medications (32) Active SCHEDULED: (17) Acetaminophen 325 mg Tablet (Acetaminophen Tablet) ??975 mg, By Mouth, Every 6 hours Breo Ellipta 200 mcg / 25 mcg Inhaler (Breo Ellipta 200 mcg-25 mcg Inhaler) ??1 puffs, Inhalation, Daily Cetirizine 5 mg Tablet (cetirizine 5 mg oral tablet) ??10 mg, By Mouth, Daily Folic Acid 1 mg Tablet (folic acid 1 mg oral tablet) ??1 mg, By Mouth, Daily Heparin 5000 units/mL Inj (1 mL) (Heparin Inj) ??5,000 units 1 mL, Subcutaneous Injection, 3 times a day Insulin Lispro 100 units/mL Inj (3mL) (Insulin LISPRO Sliding Scale) ??2-10 units, Subcutaneous Injection, 3 times a day before meals Lansoprazole 15 mg OD Tablet (Lansoprazole OD Tablet) ??15 mg, By Mouth, Daily Multivitamin Tablet ??1 tablet, By Mouth, Daily NaCl 0.9% Flush 3ml (NaCL 0.9% Flush) ??3 mL, IV Push, Every 8 hours Naproxen 250 mg Tablet (naproxen 250 mg oral tablet) ??500 mg, By Mouth, 2 times a day with meals Oxymetazoline 0.05% Nasal [place] (Afrin Nasal) ??1 sprays, Nares, Both, 2 times a day Polyethylene Glycol 17 Gm Powder (MiraLax Powder) ??17 Gm 1 pack/packet, By Mouth, Daily Senna Tablet (Senna 8.6 mg oral tablet) ??17.2 mg 2 tablet, By Mouth, Daily Spiriva Respimat 2.5 mcg Inhaler (Spiriva Respimat Inhaler) ??2 puffs, Inhalation, Daily Thiamine 100 mg Tablet (Vitamin B1 100 mg oral tablet) ??100 mg, By Mouth, Daily Vitamin B-12 ??1000 mcg Tablet (Vitamin B-12 1000 mcg oral tablet) ??1,000 mcg, By Mouth, Daily Vitamin D 1000 IU Tablet (cholecalciferol 1000 intl units oral capsule) ??6,000 International_Units, By Mouth, Daily CONTINUOUS: (0) PRN: (15) Albuterol 0.083% Inhalation Solution (Albuterol 0.083% inhalation perla) ??2.5 mg 3 mL, BAND Nebulizer, Every 4 hours Bisacodyl 10 mg Suppository (Bisacodyl Supp) ??10 mg 1 supp, Rectally, Daily Dextrose Inj Syringe (Dextrose 50% Inj Syringe (25Gm)) ??12.5 Gm, IV Push Slowly, Every 20 minutes Dextrose Inj Syringe (Dextrose 50% Inj Syringe (25Gm)) ??25 Gm, IV Push Slowly, Every 15 minutes Glucagon 1 mg Inj (Glucagon Inj) ??1 mg, Intramuscular, Once Glucose 40% Gel (15 Gm) (Glucose Gel) ??15 Gm, By Mouth, Every 20 minutes Glucose 40% Gel (15 Gm) (Glucose Gel) ??30 Gm, By Mouth, Every 20 minutes HYDROmorphone 0.5 mg/0.5 mL Inj Syringe (Dilaudid Inj) ??0.5 mg 0.5 mL, IV Push Slowly, Every 4 hours Melatonin 3 mg Tablet (Melatonin Tablet) ??3 mg, By Mouth, Daily at bedtime NaCl 0.9% Flush 3ml (NaCL 0.9% Flush) ??3 mL, IV Push, Every 8 hours Ondansetron 2mg/mL Inj (2mL Vial) (Ondansetron Inj) ??4 mg, IV Push, Every 6 hours OxyCODONE 5 mg IR Tablet (oxyCODONE 5 mg oral tablet) ??5 mg, By Mouth, Every 6 hours OxyCODONE 5 mg IR Tablet (oxyCODONE 5 mg oral tablet) ??5 mg, By Mouth, Every 6 hours Simethicone 80 mg Chewable Tablet (Simethicone Tablet) ??80 mg, Chew, 3 times a day Tizanidine 4 mg Tablet (tiZANidine 4 mg oral tablet) ??2 mg, By Mouth, 3 times a day Radiology (06/10/2023 13:[address] Lumbar Spine W/ Contrast) Bones: Severe degenerative change in both hips is seen with [id number]-ws-[id number] contact, multiple subchondral cysts and mild bony proliferation. Mild degenerative changes seen of both sacroiliac joints. Subacute fractures of the anterolateral sixth ribs bilaterally. Subacute fracture of the S3 and S4 sacral segments. [1] ?? (06/10/2023 13:[address] Lumbar Spine W/ Contrast) IMPRESSION:?? 1. No evidence of diverticulitis or colitis. ?? 2. Intrahepatic and extrahepatic biliary ductal dilatation with distal tapering, status post cholecystectomy. No CT evidence of choledocholithiasis. Correlation with lab values is recommended. ?? 3. Subacute fracture of the L2 spinous process with no evidence of acute lumbar vertebral fracture.Multilevel degenerative change and postoperative change in the lumbar spine with transitional anatomy at the lumbosacral junction. ?? 4. Fat-containing ventral hernia which also appears to contain a portion of prior mesh. ?? 4. Additional findings including ??small type III paraesophageal hernia, hepatic steatosis and nonobstructing bilateral renal calculi. [2] ?? (06/10/2023 18:07 EDT MRI Lumbar Spine W/O Contrast) DETAILED FINDINGS BY LEVEL: ?? L1-L2: New concentric disc-osteophyte complex with mild facet arthrosis and ligamentum flavum infolding. Mild left central canal and subarticular recess narrowing. Crowding of, but no impingement of the left L2 nerve roots. Mild- moderate moderate right and mild left foraminal narrowing. ?? L2-L3: Postoperative changes as above. Status post left laminotomy. Residual concentric disc-osteophyte complex. No significant central canal narrowing or traversing nerve root impingement. Mild right and mild-moderate left foraminal narrowing. ?? L3-L4: Postoperative changes as above. Broad-based posterior disc bulge, facet arthrosis, and ligamentum flavum infolding. Mild to mild-moderate central canal narrowing. No suspected nerve root impingement. Mild right and at least moderate left foraminal narrowing, which is more pronounced. ?? L4-L5: Postoperative changes as above. No significant canal stenosis or neural foraminal narrowing.A laminectomy defect is present at this level. No significant central canal narrowing. Mild to mild-moderate right and mild left foraminal narrowing. Left-sided foraminal narrowing has decreased. ?? L5-S1: Transitional level. No significant central canal or foraminal narrowing ? IMPRESSION: ?? 1. Transitional vertebral body and counting scheme as above. 2. Degenerative and postoperative changes of the lumbar spine with central canal and foraminal narrowing as detailed above. 3. Mild anterior wedging of the T11 vertebral body with edema in the inferior aspect of T11. No retropulsion of bone. This may represent a subacute compression fracture and may be amenable to vertebroplasty. 4. Healing L2 spinous process fracture. No significant edema. 5. Edema related to sacral fractures reported on CT scan of the abdomen and pelvis 12/11/2023. 6. The endometrium of the uterus appears thickened measuring up to 6 mm. Correlation with pelvic sonography is recommended. [3] Lab Results PM&R Labs WBC: 7.3 k/mm3 (06/12/23) Platelet Count: 277 k/mm3 (06/12/23) Sodium: 144 mmol/L (06/12/23) BUN: 12 mg/dL (06/12/23) Creatinine-Blood: 1 mg/dL (06/12/23) AST (SGOT): 21 units/L (06/10/23 11:40:00) ALT (SGPT): 14 units/L (06/10/23 11:40:00) [1]??CT Lumbar Spine W/ Contrast; Brisa Vega MD 06/10/2023 13:33 EDT [2]??CT Lumbar Spine W/ Contrast; Brisa Vega MD 06/10/2023 13:33 EDT [3]??MRI Lumbar Spine W/O Contrast; Juan Carlos Starks MD 06/10/2023 18:07 EDT * Ned CORTES, Beryl Munroe: PERFORM Event Display: Consultation Note Authored Date: [id number] Patient: ??LUIS, YANET ? Age:??67 Years?Sex:??Female?:??1955?? History of Present Illness This is a 67-year-old female with past medical history significant for a L2-5 lumbar fusion??done within??the last 10 years??as well as a spinal cord stimulator done within the last 5 years.?? She reports that??residual symptoms from the surgeries include numbness and tingling in both??lower extremities.?? She had a fall 2 weeks ago.?? She has had a couple episodes of??fecal??incontinence relatedto urgency. ??Since her fall she has had difficulty with walking.?? She reports she gets the urge to go to the bathroom??and at times due to pain she is able to make it there??in time and thus will have incontinence of bowel. ??She has noted that she also had normal bowel movements. ??No bladder symptoms. ??No new weakness in the lower extremities. ??No saddle anesthesias. ??MRI was done for workup??of her symptoms and neurosurgery??is asked to review and evaluate patient.?No acute findings on MRI lumbar spine which demonstrates previous surgery and degenerative changes. ?? she reports significant hip pain and low back pain that she feels worsened since fall and have caused issues with walking.?? Review of Systems General: denies fever, chills, fatigue Cardiac: denies chest pain?? Pulmonary: denies SOB?? GI: Denies bowel incontinence : denies bladder retention, incontinence?? Musculoskeletal: + back and hip pain?? Neurologic: + chronic??paresthesias??to lower extremities??denies headache, vision changes, speech changes, gait changes, paresthesias, weakness?? Physical Exam Vitals & Measurements T:??98.6?F?? HR:??73??(Peripheral)?? RR:??17?? RR:??17?? BP:??168/77?? SpO2:??97%?? HT:??152??cm?? WT:??63??kg?? BMI:??27.27?? General:?? appears stated age, awake,alert and NAD . HEENT:?? NC/AT, trachea midline Respiratory: Normal I:E Gastrointestinal:? Soft, nontender and nondistended. ?? Neurologic:?? Mental status: awake, alert oriented to location, date and self?? speech clear, fluent appropriate,?? follows simple??commands CN: grossly intact Motor: normal bulk and tone?? Lower Extremities- Hip Flexion: ? 5/5 right ?? 5/5 left?? Knee Extension: ? 5/5 right ?? 5/5 left Plantar flexion: ??5/5 right ?5/5 left Dorsiflexion: ?5/5 right ?5/5 left EHL: ? 5/5 right ?5/5 left Sensation:?? intact to light touch throughout upper and lower extremities? Assessment/Plan 67-year-old female with past medical history of an L2-5 lumbar fusion and spinal cord stimulator.??With a fall 2 weeks ago difficulty with walking??and significant hip and low back pain. She had a couple episodes of fecal urgency??since that time prompting an MRI to be done. There is no evidence of cauda equina compression, she does not have cauda equina syndrome. MRI demonstrates previous surgery sites and degenerative changes but no acute findings that require any immediate surgical intervention.? At this time no need??for??routine neurosurgical follow-up ?d/w Dr Yip Total Time Spent I personally spent a total of??45 minutes, including both bjoa-dk-ktkq and vop-mbul-ud-face time onthe date of the encounter, addressing the above diagnoses. Problem List/Past Medical History Ongoing Asthma-COPD overlap syndrome Chronic sacroiliac joint pain Diabetes mellitus due to underlying condition with diabetic neuropathy, unspecified Hyperlipidemia Procedure/Surgical History Laparoscopic cholecystostomy Hernia of abdominal wall Breast biopsy and related procedures Home Medications Acetaminophen: 650 mg = 1 tablet, By Mouth, Every 8 hours, PRN (Pain , Moderate), TAKE ONE TABLET EVERY 8 HOURS NEEDED FOR PAIN Albuterol: INHALE TWO PUFFS EVERY 6 HOURS NEEDED FOR COUGH OR FOR WHEEZING Aspirin: 325 mg, By Mouth, Daily Atorvastatin: 20 mg = 1 tablet, By Mouth, Daily at bedtime, TAKE ONE TABLET AT BEDTIME Azelastine Nasal: USE TWO SPRAYS IN EACH NOSTRIL TWICE DAILY Cetirizine: 10 mg = 1 tablet, By Mouth, Daily, TAKE ONE TABLET DAILY Cholecalciferol: 5,000 International_Units = 1 tablet, By Mouth, Daily Cyanocobalamin: 1,000 mcg = 1 tablet, By Mouth, Daily, TAKE ONE TABLET BY MOUTH EVERY DAY Diclofenac Topical: APPLY 2 GRAM'S TO AFFECTED AREA(s) TWICE DAILY NEEDED Docusate: 100 mg = 1 capsule, By Mouth, 2 times a day fluticasone/umeclidinium/vilanterol: 1 puffs, Inhalation, Daily, PRN (Wheezing/Shortness of Breath), INHALE ONE PUFFS BY MOUTH into lungs EVERY DAY, RINSE MOUTH AFTER USE HydrOXYzine: 25 mg = 1 tablet, By Mouth, Daily at bedtime, TAKE ONE TABLET BY MOUTH EVERY EVENING HydrOXYzine: 10 mg, By Mouth, 2 times a day Miscellaneous Rx (qozzyezcfgwc-bmvxvobm-ogjc fumarate 7.5 mg-folic acid 400 mcg tablet): Take 1 Tablet by mouth daily. Miscellaneous Rx (cholecalciferol (vitamin D3) 25 mcg (1,000 unit) tablet) (cholecalciferol (vitamin D3) 25 mcg (1,000 unit) tablet): TAKE ONE TABLET DAILY Miscellaneous Rx (baclofen 10 mg tablet): TAKE ONE TABLET TWICE DAILY Multivitamin: TAKE ONE TABLET BY MOUTH EVERY DAY Nystatin Topical: APPLY TO THE AFFECTED AREA(S) THREE TIMES DAILY Oxycodone: 5 mg, By Mouth, Every 4 hours, PRN (Pain , Mild) semaglutide: Every Monday, INJECT 2mg's SUBCUTANEOUSLY ONCE WEEKLY Thiamine: 100 mg = 1 tablet, By Mouth, Daily, TAKE ONE TABLET BY MOUTH EVERY DAY Allergies metFORMIN??(GI Upset) sulfADIAZINE??( swell up ) sulfa drugs??(swelling, shortness of breath) Social History Alcohol Use: Never. Substance Abuse Use: Never. Tobacco Use: Former smoker, quit more than 30 days ago. Family History Mother: Cancer of ovary Father: COPD Radiology Images independently reviewed??MRI lumbar spine with postsurgical and degenerative changes but no cauda equina compression Lab Results Test Name Test Result Date/Time WBC 6.5 k/mm3 06/10/2023 11:40 EDT RBC 4.32 m/mm3 06/10/2023 11:40 EDT Hgb 12.2 Gm/dL 06/10/2023 11:40 EDT Hct 39.0 % 06/10/2023 11:40 EDT MCV 90.3 femtoliters 06/10/2023 11:40 EDT MCH 28.2 pg 06/10/2023 11:40 EDT MCHC 31.3 g/dL 06/10/2023 11:40 EDT Platelet Count 298 k/mm3 06/10/2023 11:40 EDT RDW-SD 44.8 femtoliters 06/10/2023 11:40 EDT MPV 10.0 femtoliters 06/10/2023 11:40 EDT Nucleated RBC (Automated) 0.0 #/100 WBC'S 06/10/2023 11:40 EDT Abs. NRBC 0.0 k/mm3 06/10/2023 11:40 EDT Abs. Neut 4.2 k/mm3 06/10/2023 11:40 EDT Abs. Lymph 1.3 k/mm3 06/10/2023 11:40 EDT Abs. Amelia 0.6 k/mm3 06/10/2023 11:40 EDT Abs. Eo 0.3 k/mm3 06/10/2023 11:40 EDT Abs. Baso 0.1 k/mm3 06/10/2023 11:40 EDT Neut % 64.2 % 06/10/2023 11:40 EDT Lymph % 20.2 % 06/10/2023 11:40 EDT Amelia % 9.1 % 06/10/2023 11:40 EDT Eos % 4.3 % 06/10/2023 11:40 EDT Baso % 1.9 % 06/10/2023 11:40 EDT Imm Gran 0.3 % 06/10/2023 11:40 EDT Abs. Imm Gran 0.0 k/mm3 06/10/2023 11:40 EDT Sodium 144 mmol/L 06/10/2023 11:40 EDT Potassium 3.4 mmol/L 06/10/2023 11:40 EDT Chloride 111 mmol/L 06/10/2023 11:40 EDT Bicarbonate Level 18 mmol/L 06/10/2023 11:40 EDT Anion Gap 15 06/10/2023 11:40 EDT Glucose Level 87 mg/dL 06/10/2023 11:40 EDT BUN 14 mg/dL 06/10/2023 11:40 EDT Creatinine-Blood 1.1 mg/dL 06/10/2023 11:40 EDT Estimated GFR Creatinine 56 ML/MIN/1.73 M2 06/10/2023 11:40 EDT Calcium 9.6 mg/dL 06/10/2023 11:40 EDT Protein, Total 6.4 Gm/dL 06/10/2023 11:40 EDT Albumin 4.3 Gm/dL 06/10/2023 11:40 EDT AG Ratio 2.0 06/10/2023 11:40 EDT Alkaline Phosphatase 216 units/L 06/10/2023 11:40 EDT Lipase 50 units/L 06/10/2023 11:40 EDT AST (SGOT) 21 units/L 06/10/2023 11:40 EDT ALT (SGPT) 14 units/L 06/10/2023 11:40 EDT Bilirubin, Total 0.3 mg/dL 06/10/2023 11:40 EDT Influenza A PCR NEGATIVE 06/10/2023 12:58 EDT Influenza B PCR NEGATIVE 06/10/2023 12:58 EDT RSV PCR NEGATIVE 06/10/2023 12:58 EDT COVID-19 PCR Specimen Source NASAL 06/10/2023 12:58 EDT COVID-19 PCR Result NEGATIVE 06/10/2023 12:58 EDT Appear/Color, Urine YELLOW 06/10/2023 16:08 EDT Specific [place], Urine 1.046 06/10/2023 16:08 EDT pH, Urine 6.5 06/10/2023 16:08 EDT Albumin, Urine TRACE 06/10/2023 16:08 EDT Glucose, Urine NEGATIVE 06/10/2023 16:08 EDT Ketones, Urine NEGATIVE 06/10/2023 16:08 EDT Bilirubin, Urine NEGATIVE 06/10/2023 16:08 EDT Hemoglobin, Urine NEGATIVE 06/10/2023 16:08 EDT Nitrite, Urine NEGATIVE 06/10/2023 16:08 EDT Leukocyte, Urine NEGATIVE 06/10/2023 16:08 EDT Urobilinogen NORMAL 06/10/2023 16:08 EDT WBC's, Urine 2 /HPF 06/10/2023 16:08 EDT RBC's, Urine 1 /HPF 06/10/2023 16:08 EDT Bacteria SLIGHT 06/10/2023 16:08 EDT Squamous Epith <1 /HPF 06/10/2023 16:08 EDT Hold Urine Culture Testing available 48 hours from time of collection. 06/10/2023 16:08 EDT Note * Muna Gan RN: PERFORM Event Display: Discharge/Transfer Note Hospital Authored Date: [id number] Nursing Discharge Note Entered On: 06/18/2023 15:47 EDT Performed On: 06/18/2023 15:46 EDT by Muna Gan RN Nursing Discharge Note 2 Discharge Time : 06/18/2023 15:45 EDT Discharge Level of Care at Discharge : Homehealth/VNA Discharge VNA/Hospice/Home Care(v001) : [facility] Discharge [facility](v001) : [facility] Patient Left Unit Via : Wheelchair Patient Accompanied Off Unit with : Other: Staff DC Instructions Provided & Signed by Pt : Yes Patient Understands D/C Instructions : Yes Patient Instructions Discharge Signed : Yes Did Pt have Specialty Bed or Wound Vac : No Elvia ESPARZA, Muna - 06/18/2023 15:46 EDT * Manuel Ramirez MD: José Miguel Harvey DO: PERFORM Event Display: Discharge/Transfer Note Hospital Authored Date: [id number] Patient: ??LUIS, YANET ? Age:??67 Years?Sex:??Female?:??1955?? Patient Information Discharge Location: A Primary Care Physician: Forrest BENNETT MD, Ayan Esqueda Admit Date/Time: 06/11/23 01:55 Discharge Disposition Discharge Disposition: Home with Home Health Discharge Diagnosis Rib fracture (S22.39XA) Fracture of spinous process of lumbar vertebra (S32.009A) Acute low back pain without sciatica, unspecified back pain laterality (M54.50) Difficulty walking (R26.2) Back pain (M54.9) COPD mixed type (J44.9) Leg weakness (R29.898) Mobility poor (Z74.09) Right leg pain (M79.604) Sacral fracture (S32.10XA) T11 vertebral fracture (S22.089A) Thickened endometrium (R93.89) Vertebral compression fracture (M48.50XA) _ Discharge Medications Acetaminophen (acetaminophen 325 mg oral tablet)?975?Milligram?By Mouth?3 times a day?for 30?Days?Temperature Greater than 100.5 Albuterol (Ventolin HFA 108 mcg/inh inhalation aerosol with adapter)?INHALE TWO PUFFS EVERY 6 HOURS NEEDED FOR COUGH OR FOR WHEEZING Azelastine Nasal (azelastine 137 mcg/inh (0.1%) nasal spray)?USE TWO SPRAYS IN EACH NOSTRIL TWICE DAILY Calcitonin (calcitonin 200 iu/inh nasal spray)?See Instructions?1 sprays Naris, alternate nostrils Cetirizine (cetirizine 10 mg oral tablet)?1?tab(s)?10?Milligram?By Mouth?Daily?TAKE [...] RINSE MOUTH AFTER USE HydrOXYzine (hydrOXYzine hydrochloride 50 mg oral tablet)?TAKE ONE TABLET TWICE DAILY FOR 10 DAYS Lansoprazole (lansoprazole 15 mg oral tablet, disintegrating)?15?Milligram?By Mouth?Daily?for 14?Days Miscellaneous Rx (prevbikynlfm-sycrrmct-upcs fumarate 7.5 mg-folic acid 400 mcg tablet)?Take 1 Tablet by mouth daily. Miscellaneous Rx (cholecalciferol (vitamin D3) 25 mcg (1,000 unit) tablet)?TAKE ONE TABLET DAILY Miscellaneous Rx (baclofen 10 mg tablet)?TAKE ONE TABLET TWICE DAILY Multivitamin (Total B with C oral tablet)?TAKE ONE TABLET BY MOUTH EVERY DAY Naproxen (naproxen 250 mg oral tablet)?500?Milligram?By Mouth?2 times a day with meals?for 14?Days Nystatin Topical (nystatin topical 663095 u/gm cream)?APPLY TO THE AFFECTED AREA(S) THREE TIMES DAILY Oxycodone (oxyCODONE 5 mg oral tablet)?10?Milligram?By Mouth?4 times a day?as needed?for 7?Days?Pain , Moderate semaglutide (Ozempic 8 mg/3 mL (2 mg dose) subcutaneous solution)?Every Monday?INJECT 2mg's SUBCUTANEOUSLY ONCE WEEKLY Thiamine (Vitamin B1 100 mg oral tablet)?100?Milligram?1?tablet?By Mouth?Daily?TAKE ONE TABLET BY MOUTH EVERY DAY Allergies Allergies ?(Active and Proposed Allergies Only) sulfa drugs? (Severity: Unknown severity, Onset: Unknown) ?Reactions: swelling, shortness of breath metFORMIN? (Severity: Unknown severity, Onset: Unknown) ?Reactions: GI Upset sulfADIAZINE? (Severity: Unknown severity, Onset: Unknown) ?Reactions: swell up ? PCP Follow-Up/Heads-Up Please follow up on pain control for patient's kyphoplasty. Oxycodone 7 day supply and calcitonin +naproxen + acetaminophen was prescribed. Please consider discontinuing baclofen as it may not benefit the patient. Patient noted to have thickened endometrium on US. Please follow up. 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 presented for falls, incontinence related to urgency, and difficulty walking. Neurosurgery was consulted and assessed patient did not have evidence ofcauda equina syndrome. IR was consulted for compression fractures and she underwent CT and MRI imaging and noted to have a vertebral compression fracture. IR was consulted and patient underwent kyphoplasty. Discharged home with services and walker. ?? Back pain (M54.9): acute on chronic Leg weakness (R29.898): worsening T11 vertebral fracture (S22.089A):??CT scan of the lumbar spine, abdomen and pelvis showed no CT evidence of choledocholithiasis. Subacute fracture at L2 with no evidence of acute lumbar vertebral fracture. Fat-containing ventral hernia, type III small paraesophageal hernia, hepatic steatosis, nonobstructing bilateral renal stones. MRI of the lumbar spine without contrast showed possible subacute compression fracture of the T11 which may be amenable for vertebroplasty. Healing L2 spinous process fracture with no significant edema. ? Recommendations -Continue prn naproxen -Continue lansoprazole -Scheduled oxycodone for pain -cont spinal cord stimulator in situ from home ??-PT evaluation recs home services ?? Thickened endometrium (R93.89): The endometrium of the uterus appears thickened measuring up to 6 mm. Recommend correlation with pelvic ultrasound. ?? Recommendations ??-Outpt f/u US ? COPD mixed type (J44.9): Not in exacerbation Maintaining saturation room air ? Recommendations ??-resume home meds ?? Code: Full Objective Measurements?? Height: 152 cm (06/17/23) Weight: 58.8 kg (06/11/23) Dry Weight: 63 kg (06/11/23) Body Mass Index:??25.45 kg/m2??High (06/11/23) ? Vital Signs?? Temperature: 97.7 DegF (06/18/23 11:27:00) Temperature Route: Temporal (06/18/23 11:27:00) Pulse Rate: 80 bpm (06/18/23 11:27:00) Respiratory Rate: 20 br/min (06/18/23 11:27:00) Systolic Blood Pressure:??145 mm Hg??High (06/18/23 11:27:00) Diastolic Blood Pressure: 75 mm Hg (06/18/23 11:27:00) Blood pressure sites: Arm, right (06/18/23 11:27:00) Mean Arterial Pressure: 98 mm Hg (06/18/23 11:27:00) Pulse Pressure: 70 mm Hg (06/18/23 11:27:00) Oxygen Saturation:??91 %??Low (06/18/23 11:27:00) Mode of Delivery (Oxygen): Room air (06/18/23 11:27:00) Early Warning Score: 4 (06/18/23 12:28:37) ? . Physical Exam General: No acute distress HEENT: EOMI, mucous membranes moist CV: RRR S1 S2 present. No murmurs, gallops, rubs appreciated. No JVD. No edema. Respiratory: All rodriguez clear to auscultation bilaterally. No wheezes, rales, rhonchi appreciated Abdominal: Soft, nontender. No rebound tenderness. Bowel sounds noted all four quadrants. : No suprapubic tenderness. Neuro: A&OX3. Moving upper and lower extremities. No gross neurological deficits. Psych: Affect appropriate Skin: No acute lesions, wounds, rashes. Consultants PM&R Rosibel ROGESR, Jitendra Taylor MD, Ellen Quiroz Neurosurgery - Dr Yip Patient Education Titles [employer] Patient Education - Vertebral Compression Fracture?? [employer] Patient Education - Lansoprazole Delayed Release Oral Capsule?? [employer] Patient Education - [place] Calcitonin Nasal [place]?? [employer] Patient Education - Acetaminophen Oral Tablet?? [employer] Patient Education - Oxycodone Oral Tablet?? [employer] Patient Education - Kyphoplasty?? [employer] Patient Education - Vertebral Compression Fracture?? Follow-Up Appointments Added Follow Up ?Time Frame ?Comments Forrest BENNETT MD, Ayan Esqueda?1 to 2 weeks?Sharma Patient Instructions You were admitted for concerns of vertebral compression fracture. You underwent kyphoplasty. Oxycodone 10mg every 4 h for 7 days is prescribed to assist with pain control. Naproxen and NSAIDs can create risk for gastrointestinal bleeding, so lansoprazole is prescribed to help reduce this risk. Calcitonin spray is also prescribed for pain. Please discuss with your PCP regarding benefit of baclofenand consider discontinuing it with your PCP. ?? Please follow up??with your??PCP to discuss the thickened endometrium??on US??and if any further workup or referral is??indicated. ?? If symptoms worsen or new symptoms develop, please seek medical attention. If you do not have a PCP, please call the [facility] PCP hotline [phone]. ?? Home Health Face to Face *Denotes mandatory rodriguez ?? *I certify that this patient is under my care and that I or an allowed non- physician working with me had a face to face encounter with the patient on this date:??06/18/2023 12:44 ?? *The encounter with the patient was in whole, or in part, for the following medical condition, which is the primary diagnosis(es) for home health care:??Rib fracture (S22.39XA) Fracture of spinous process of lumbar vertebra (S32.009A) Acute low back pain without sciatica, unspecified back pain laterality (M54.50) Difficulty walking (R26.2) Back pain (M54.9) COPD mixed type (J44.9) Leg weakness (R29.898) Mobility poor (Z74.09) Right leg pain (M79.604) Sacral fracture (S32.10XA) T11 vertebral fracture (S22.089A) Thickened endometrium (R93.89) Vertebral compression fracture (M48.50XA) ? *Select the indications for the discipline/s that are being arranged for this patient. Nursing (select all that apply): [_] None [_] Medication management (reconciliation, teaching)?? [_] Chronic disease management?? [_] Wound care and treatment?? [_] Home safety evaluation [_] Administer SQ/IM/IV medications?? [_] Cath care?? [_] Drain care?? [_] Trach or GT care?? Other _ Occupation Therapy (select all that apply): [_] None [_] ADL Management [_] Fall prevention training [_] Energy conservation [_] Cognitive training Other _ Physical Therapy (select all that apply): [_] None [X] Functional mobility training [X] Home exercise program to strengthen [X] Increase ROM?? [X] Falls prevention training [_] Home maintenance program for chronic disease Other _ Speech Therapy (select all that apply): [_] None [_] Swallow evaluation and training [_] Speech and language training [_] Cognitive training to process, organize, and/or recall information Other _ ? *Homebound due to (select all that apply): [_] Inability to leave home without assistance/supervision [_] Inability to ambulate without assistance [X] Pain [X] Decreased strength and endurance [_] Unsteady gait [_] Severe SOB and fatigue [_] Impaired transfers [_] Inability to negotiate stairs [_] Limited weight bearing [_] Mental status change? *Physician Signature:??José Miguel??Edith DO PGY3 ?? *By signing this, I certify that I have personally evaluated the patient and agree with the findings and recommendations as documented above. ? Results Discharge Labs BLOOD COUNT & DIFF WBC 6.8 k/mm3 ()?? 06/18/2023 00:59 RBC 4.01 m/mm3 (Low)?? 06/18/2023 00:59 Hgb 11.7 Gm/dL ()?? 06/18/2023 00:59 Hct 37.2 % ()?? 06/18/2023 00:59 MCV 92.8 femtoliters ()?? 06/18/2023 00:59 MCH 29.2 pg ()?? 06/18/2023 00:59 MCHC 31.5 g/dL (Low)?? 06/18/2023 00:59 Platelet Count 204 k/mm3 ()?? 06/18/2023 00:59 RDW-SD 47.8 femtoliters (High)?? 06/18/2023 00:59 MPV 11.2 femtoliters ()?? 06/18/2023 00:59 Nucleated RBC (Automated) 0.0 #/100 WBC'S ()?? 06/18/2023 00:59 Abs. NRBC 0.0 k/mm3 ()?? 06/18/2023 00:59 Abs. Neut 4.2 k/mm3 ()?? 06/10/2023 11:40 Abs. Lymph 1.3 k/mm3 ()?? 06/10/2023 11:40 Abs. Amelia 0.6 k/mm3 ()?? 06/10/2023 11:40 Abs. Eo 0.3 k/mm3 ()?? 06/10/2023 11:40 Abs. Baso 0.1 k/mm3 ()?? 06/10/2023 11:40 Neut % 64.2 % ()?? 06/10/2023 11:40 Lymph % 20.2 % ()?? 06/10/2023 11:40 Amelia % 9.1 % ()?? 06/10/2023 11:40 Eos % 4.3 % ()?? 06/10/2023 11:40 Baso % 1.9 % ()?? 06/10/2023 11:40 Imm Gran 0.3 % ()?? 06/10/2023 11:40 Abs. Imm Gran 0.0 k/mm3 ()?? 06/10/2023 11:40 ?? CHEM GENERAL Sodium 140 mmol/L ()?? 06/18/2023 00:59 Potassium 4.3 mmol/L ()?? 06/18/2023 00:59 Chloride 106 mmol/L ()?? 06/18/2023 00:59 Bicarbonate Level 23 mmol/L ()?? 06/18/2023 00:59 Anion Gap 11 ()?? 06/18/2023 00:59 Glucose Level 122 mg/dL (High)?? 06/18/2023 00:59 Glucose, POC 83 mg/dL ()?? 06/18/2023 11:31 BUN 17 mg/dL ()?? 06/18/2023 00:59 Creatinine-Blood 1.0 mg/dL ()?? 06/18/2023 00:59 Estimated GFR Creatinine 62 ML/MIN/1.73 M2 ()?? 06/18/2023 00:59 Calcium 9.1 mg/dL ()?? 06/18/2023 00:59 Protein, Total 6.4 Gm/dL ()?? 06/10/2023 11:40 Albumin 4.3 Gm/dL ()?? 06/10/2023 11:40 AG Ratio 2.0 ()?? 06/10/2023 11:40 Alkaline Phosphatase 216 units/L (High)?? 06/10/2023 11:40 Lipase 50 units/L ()?? 06/10/2023 11:40 AST (SGOT) 21 units/L ()?? 06/10/2023 11:40 ALT (SGPT) 14 units/L ()?? 06/10/2023 11:40 Bilirubin, Total 0.3 mg/dL ()?? 06/10/2023 11:40 C-Reactive Protein <0.3 mg/dL ()?? 06/10/2023 16:29 ?? COAG INR 1.1 ()?? 06/14/2023 00:55 Protime (PT) 11.7 seconds (High)?? 06/14/2023 00:55 APTT 29.4 seconds ()?? 06/14/2023 00:55 ? HEME OTHER Sed Rate 20 mm/hr ()?? 06/10/2023 16:29 ? UA/URINALYSIS Appear/Color, Urine YELLOW ()?? 06/10/2023 16:08 Specific [place], Urine 1.046 (High)?? 06/10/2023 16:08 pH, Urine 6.5 ()?? 06/10/2023 16:08 Albumin, Urine TRACE (Abnormal)?? 06/10/2023 16:08 Glucose, Urine NEGATIVE ()?? 06/10/2023 16:08 Ketones, Urine NEGATIVE ()?? 06/10/2023 16:08 Bilirubin, Urine NEGATIVE ()?? 06/10/2023 16:08 Hemoglobin, Urine NEGATIVE ()?? 06/10/2023 16:08 Nitrite, Urine NEGATIVE ()?? 06/10/2023 16:08 Leukocyte, Urine NEGATIVE ()?? 06/10/2023 16:08 Urobilinogen NORMAL mg/dL ()?? 06/10/2023 16:08 WBC's, Urine 2 /HPF ()?? 06/10/2023 16:08 RBC's, Urine 1 /HPF ()?? 06/10/2023 16:08 Bacteria SLIGHT HPF (Abnormal)?? 06/10/2023 16:08 Squamous Epith <1 /HPF ()?? 06/10/2023 16:08 Hold Urine Culture Testing available 48 hours from time of collection. ()?? 06/10/2023 16:08 ?? URINE OTHER Est Creatinine Clearance 38.90 mL/min ()?? 06/18/2023 01:58 ? VIROLOGY Influenza A PCR NEGATIVE ()?? 06/10/2023 12:58 Influenza B PCR NEGATIVE ()?? 06/10/2023 12:58 RSV PCR NEGATIVE ()?? 06/10/2023 12:58 COVID-19 PCR Specimen Source NASAL ()?? 06/10/2023 12:58 COVID-19 PCR Result NEGATIVE ()?? 06/10/2023 12:58 ? Microbiology ?? COVID-19, RSV, and Flu A/B, Rapid PCR?? Completed?? Source: Nasal Body Site: Nose Collected Dt/Tm: 06/10/2023 11:33 Last Updated Dt/Tm: 06/10/2023 14:35 ? Imaging(s) ?MRI Lumbar Spine W/O Contrast ?? 06/10/2023 18:07??by Juan Carlos Starks MD ?MRI Lumbar Spine W/O Contrast ?? INDICATION: Hx of Present Illness: pt reports bilateral groin pain radiating down both legs x2 weeks with nausea and diarrhea; Reason: Other:; Spine fracture, lumbar, traumatic; Clinical Question(s):Fracture Dislocation; Order Comment: Please see Reference Text for complete list of contraindications Fracture/Dislocation ?? TECHNIQUE: MRI of the lumbar spine was performed without intravenous contrast utilizing sagittal T1, sagittal T2, sagittal STIR, axial T1, and axial T2- weighted sequences. ?? COMPARISON: MRI of the lumbar spine 02/02/[address] scan of the lumbar spine and abdomen and pelvis06/10/2023 ?? FINDINGS: ?? LOCALIZER: No additional findings on limited localizer images. ?? NUMBERING: A transitional vertebral body is present which is compatible with a partially sacralizedlumbar vertebral body which will be labeled L5. ?? ALIGNMENT, VERTEBRAE, MARROW, AND DISCS: Subtle retrolisthesis of L1 on L2 is noted on the left. Mild anterolisthesis of L3 on L4 and L4 on L5. Status post anterior lumbar discectomy and fusion at L2-L3 and L4-L5. Intradiscal bone graft/spacers are present at these levels, and posterior lumbar fusion has also been performed with right-sided transpedicular screws at L4 and L5 and left- sided transpedicular screws at L2 through L5. Interconnecting rods are present, but the left-sided rods are isolated at L2-L3 and L4-L5, respectively. ?? The lumbar vertebral bodies are normal in height. There is anterior wedging of the T11 vertebral body, and edema is present within the inferior aspect of the T11 vertebra. Mild overall loss of heightof T11 without retropulsion of bone. ?? The lumbar vertebral bodies are normal in height. The L1-L2 disc is now moderate-severely diminished in height. Moderate loss of height of L3-L4. Transitional L5-S1 disc. Marginal osteophytes and facet arthroses are present at multiple levels. ?? An healing L2 spinous process fracture is better seen on the prior CT. No significant edema. Edema related to S3 and S4 sacral fractures on the prior CT is also noted. ?? CONUS: The conus is normal in signal and contour, with normal level of termination at [id number]. This is partially obscured by distortion artifact from leads related to the patient's spinal simulator. No epidural fluid collection is noted. ?? PARASPINAL TISSUES: Fatty atrophy and postoperative changes of the posterior paraspinal musculature. Signal voids within the anterior right kidney correlate with calculi on the prior CT. ? DETAILED FINDINGS BY LEVEL: ?? L1-L2: New concentric disc-osteophyte complex with mild facet arthrosis and ligamentum flavum infolding. Mild left central canal and subarticular recess narrowing. Crowding of, but no impingement of the left L2 nerve roots. Mild- moderate moderate right and mild left foraminal narrowing. ?? L2-L3: Postoperative changes as above. Status post left laminotomy. Residual concentric disc-osteophyte complex. No significant central canal narrowing or traversing nerve root impingement. Mild right and mild-moderate left foraminal narrowing. ?? L3-L4: Postoperative changes as above. Broad-based posterior disc bulge, facet arthrosis, and ligamentum flavum infolding. Mild to mild-moderate central canal narrowing. No suspected nerve root impingement. Mild right and at least moderate left foraminal narrowing, which is more pronounced. ?? L4-L5: Postoperative changes as above. No significant canal stenosis or neural foraminal narrowing.A laminectomy defect is present at this level. No significant central canal narrowing. Mild to mild-moderate right and mild left foraminal narrowing. Left-sided foraminal narrowing has decreased. ?? L5-S1: Transitional level. No significant central canal or foraminal narrowing ? IMPRESSION: ?? 1. Transitional vertebral body and counting scheme as above. 2. Degenerative and postoperative changes of the lumbar spine with central canal and foraminal narrowing as detailed above. 3. Mild anterior wedging of the T11 vertebral body with edema in the inferior aspect of T11. No retropulsion of bone. This may represent a subacute compression fracture and may be amenable to vertebroplasty. 4. Healing L2 spinous process fracture. No significant edema. 5. Edema related to sacral fractures reported on CT scan of the abdomen and pelvis 12/11/2023. 6. The endometrium of the uterus appears thickened measuring up to 6 mm. Correlation with pelvic sonography is recommended. ?CT Abd/Pelvis W/ IV Contrast Only ?? 06/10/2023 13:33??by Brisa Vega MD ?CT Abd/Pelvis W/ IV Contrast Only, CT Lumbar Spine W/ Contrast ?? Hx of Present Illness: pt reports bilateral groin pain radiating down both legs x2 weeks with nausea and diarrhea; Reason: Other:; LLQ abdominal pain; Clinical Question(s): Diverticulitis. ?? TECHNIQUE: Spiral CT through the abdomen and pelvis with IV contrast formatted in 3 planes. The original data set was reconstructed using smaller [id number] through the lumbar spine in 3 planes. 100 cc of Omnipaque 300 was administered intravenously. This study was performed without oral contrast. Weight-based protocol using automatic tube modulation was used to optimize exposure parameters. ?? CTDIvol Body: 15.40 mGy, DLP Body: 848 mGy*cm. ? COMPARISON: Lumbar spine radiographs dated 04/06/2021 and lumbar spine MRI dated 02/02/2019.. ?? FINDINGS: ?? Assembly Inspector View Findings, Lines and Tubes: There is a spinal stimulator with the power pack overlying the left gluteal region in the proximal extents of the lead extending superiorly beyond the field of view. ?? Visualized Chest: Lung bases are clear. No pleural effusion. The heart is normal in size. No pericardial effusion. ?? Diaphragm: Normal. ?? Liver: Diffuse low-attenuation throughout the liver parenchyma consistent with hepatic steatosis. No evidence of solid mass.There is a 7 mm cyst in the dome of the liver. ?? Gallbladder: Absent consistent with prior cholecystectomy. ?? Bile ducts: There is intra and extrahepatic biliary ductal dilatation. The common bile duct measures 1.9 cm with distal tapering. ?? Spleen: Normal. ?? Pancreas: Normal. ?? Adrenal glands: Normal. ?? Kidneys and ureters: Cluster of calculi in the right mid pole calyx is seen with the largest calculus measuring approximately 1.2 cm. Additional nonobstructing calculi are seen in both kidneys. Duplex appearance of the renal collecting systems. No suspicious renal mass. Small hypodensities that aretoo small to characterize are noted, requiring no dedicated follow up. ?? Bladder: Normal. ?? Reproductive organs: Unremarkable. ?? Stomach, small bowel, and large bowel: Small type III. Paraesophageal hernia. Postoperative change of the stomach with suture material along the greater curvature suggesting prior sleeve gastrectomy.There is a duodenal diverticulum. The small bowel appears normal in caliber. No focal bowel wall thickening or evidence of adjacent inflammatory change. ?? Appendix: Not visualized, however no secondary signs of appendicitis. ?? Peritoneum and retroperitoneum: No ascites or pneumoperitoneum. No omental or mesenteric lesions. ?? Lymph nodes: No enlarged lymph nodes. ?? Blood vessels: Mild vascular calcifications but no aneurysm. No evidence of venous thrombosis. ?? Abdominal and pelvic wall: There is a fat-containing ventral hernia in the midline upper abdomen with evidence of prior mesh fixation which appears to extend into the hernia. ?? Bones: Severe degenerative change in both hips is seen with [id number] contact, multiple subchondral cysts and mild bony proliferation. Mild degenerative changes seen of both sacroiliac joints. Subacute fractures of the anterolateral sixth ribs bilaterally. Subacute fracture of the S3 and S4 sacral segments. ?? Transitional anatomy is seen with partial sacralization of L5. Status post posterior decompression,discectomy and fusion of L4-5, secured with bilateral transpedicular screws and vertical paraspinalrods. Prior left laminectomy with discectomy and fusion of L2-3 is seen secured with left-sided transpedicular screws and a left paraspinal escobar. Subacute fracture of the L2 spinous process. The lumbar vertebral bodies appear normal in height with no evidence of acute fracture. There is grade 1 anterolisthesis of L3 on L4 and loss of intervertebral disc space height with small amount of vacuum phenomena at L3-4. Loss of intervertebral disc space height and endplate degenerative change with vacuum phenomena is seen at L1-2. ?? IMPRESSION: 1. No evidence of diverticulitis or colitis. ?? 2. Intrahepatic and extrahepatic biliary ductal dilatation with distal tapering, status post cholecystectomy. No CT evidence of choledocholithiasis. Correlation with lab values is recommended. ?? 3. Subacute fracture of the L2 spinous process with no evidence of acute lumbar vertebral fracture.Multilevel degenerative change and postoperative change in the lumbar spine with transitional anatomy at the lumbosacral junction. ?? 4. Fat-containing ventral hernia which also appears to contain a portion of prior mesh. ?? 4. Additional findings including small type III paraesophageal hernia, hepatic steatosis and nonobstructing bilateral renal calculi. ? 30??minutes spent on discharge Patient seen and discussed with attending physician, Dr. James Sharam DO, PGY-3 ?? * Manuel Ramirez MD: PERFORM Event Display: Discharge/Transfer Note Hospital Authored Date: 67-year-old woman with prediabetes, status post gastric bypass, spinal cord stimulator in place whopresented for worsening back pain and bilateral lower extremity weakness status post kyphoplasty (06/15).? Diagnoses: Failed back syndrome Spinal cord stimulator in place L2 sacral fracture T11 compression fracture COPD without exacerbation CKD 3 A ?? Vitals reviewed and unremarkable. Labwork reviewed with CBC and BMP otherwise unremarkable. ?? Recommendations: - Follow-up with PCP in 3-5 days. Continuation of narcotics per PCP - PCP to follow-up??path ??- PCP to FU incidental findings ??- DC home with walker ??- DC on current narcotic regimen ?? Incidental findings included: The endometrium of the uterus appears thickened measuring up to 6 mm. Correlation with pelvic sonography is recommended. ?? Small type III paraesophageal hernia hepatic steatosis nonobstructing bilateral renal calculi ?? I evaluated the patient on date of service 06/18/2023. I saw and evaluated this patient with Dr. Sharma and agree with the resident???s findings and plan ofcare as documented by the resident or edited by me. I spent 37 minutes on the following: preparing to see the patient (eg, review of tests), obtaining and/or reviewing separately obtained history, performing a medically appropriate examination and/or evaluation and counseling and educating the patient/family/caregiver * Muna Gan RN: PERFORM, MODIFY Event Display: Patient Education/Instruction Authored Date: [id number] Inpatient Adult Discharge Instructions. [address] [address] Name: YANET KING : 1955?? Visit: 06/11/2023 01:55?? Current Date: 06/18/2023 13:46 ?? Account: [id number]?? Inpatient Adult Discharge Instructions We would like [...] and their families. Surveys are administered by [employer] ?? If further treatment with your primary care physician or another doctor is recommended, it is important for you to keep the appointment. Call your primary care physician or return to the Emergency Department immediately if your condition worsens, fails to improve, or new symptoms develop. If you need to find a doctor, you can call [facility] for a referral at [phone] or toll free at [phone] or log in to [email or web address].. ?? [facility], in keeping with [facility] guidance, no longer requires face masks [...] a health care gilda of your choosing. [employer] is a website that allows you to securely view your medical information including your hospital discharge summary, office visit summaries, medications and follow-up visits. You can also request appointments, renew medications, and request access to your medical information using a health care gilda of your choosing, or just ask a question. You can enroll at [email or web address] or register during your next office visit. You have been discharged from [facility], Patient Care Unit: D5A??. If you have any questions regarding these instructions, including results of studies pending, afteryou leave, please call us and we will be happy to assist you 17/10. [facility] Your Care Team Attending Physician Manuel Ramirez MD?? Consulting Providers Manuel Ramirez MD?? Discharging Providers José Miguel Sharma DO Reason for Your Visit pain control?? Your Diagnosis Rib fracture Fracture of spinous process of lumbar vertebra Acute low back pain without sciatica, unspecified back pain laterality Difficulty walking Back pain COPD mixed type General medical Leg weakness Right leg pain Thickened endometrium Vertebral compression fracture Tests Performed Below is a partial list of the tests performed during your hospitalization. You may have had other tests and procedures not included in this list. Please discuss all test results with your provider. Basic Metabolic Panel BUN CBC CBC w/ Differential Comprehensive Metabolic Panel COVID-19, RSV, and Flu A/B, Rapid PCR Creatinine CRP ELECTROLYTES ESR GLUCOSE POC Lipase PT (INR)?-- Results Pending -- PTT?-- Results Pending -- Urinalysis w/hold for Urine Culture CT Abd/Pelvis W/ IV Contrast Only CT Lumbar Spine W/ Contrast IR Generic Order MRI Lumbar Spine W/O Contrast You will be contacted within 72 hours with your results. Basic Metabolic Panel?? CBC?? INR (PT (INR))?? PTT?? Pathology Tissue Request ()?? Primary Care Provider Ayan Clayton III, MD? Advance Directive Health Care Proxy on File No Discharge Vitals Temperature: 97.7 DegF Height: 152 cm Pulse Rate: 80 bpm Weight: 58.8 kg Respiratory Rate: 20 br/min Body Mass Index:??25.45 kg/m2??High Systolic Blood Pressure:??145 mm Hg??High Body surface area: 1.58 Diastolic Blood Pressure: 75 mm Hg ?? Oxygen Saturation:??91 %??Low ?? Studies Pending All studies ordered during this hospital stay have been completed unless listed below. Please discuss all pending results with your provider listed above in these instructions. ?? Basic Metabolic Panel?? CBC?? INR (PT (INR))?? PTT?? Pathology Tissue Request ()?? What to do next Instructions From Your Doctor You were admitted for concerns of vertebral compression fracture. You underwent kyphoplasty. Oxycodone 10mg every 4 h for 7 days is prescribed to assist with pain control. Naproxen and NSAIDs can create risk for gastrointestinal bleeding, so lansoprazole is prescribed to help reduce this risk. Calcitonin spray is also prescribed for pain. Please discuss with your PCP regarding benefit of baclofenand consider discontinuing it with your PCP. ?? Please follow up??with your??PCP to discuss the thickened endometrium??on US??and if any further workup or referral is??indicated. ?? If symptoms worsen or new symptoms develop, please seek medical attention. If you do not have a PCP, please call the [facility] PCP hotline [phone]. ? Orders? 06/18/23 12:45:00 EDT?? Prescriptions??, ??06/18/23 12:45:00 EDT , ??06/18/23 12:45:00 EDT?? You Need to Schedule the Following Appointments Follow Up with??Forrest BENNETT MD, Ayan Esqueda When:??Within 1 to 2 weeks Why: Edith Where: [address] [place] [address]- Discharge Medications YANET KING :1955 Visit Date:06/11/2023 Medications: Please continue your medications until treatment is completed or stopped by your provider. Medications not listed below should be discontinued. Discuss any questions related to medications with your provider. What How Much When Instructions Next Dose New Calcitonin (calcitonin 200 iu/ inh nasal spray) See instructions 1 sprays Naris, alternate nostrils ?? Pickup at [facility] #[id number] 06/19/23 8AM New Lansoprazole (lansoprazole 15 mg oral tablet, disintegrating) 15 Milligram Oral Daily Duration: 14 Days [id number]/23 8AM Changed Acetaminophen (acetaminophen 325 mg oral tablet) 975 Milligram Oral 3 times a day Duration: 30 Days Temperature Greater than 100.5 ?? [id number] 06/18/23 8PM Changed Diclofenac Topical (diclofenac 1% topical gel) APPLY 2 GRAM'S TO AFFECTED AREA(s) TWICE DAILY NEEDED ?? As Needed Changed HydrOXYzine (hydrOXYzine hydrochloride 50 mg oral tablet) TAKE ONE TABLET TWICE DAILY FOR 10 DAYS ?? 06/19/23 8AM Changed Multivitamin (Total B with C oral tablet) TAKE ONE TABLET BY MOUTH EVERY DAY ?? 06/19/23 8AM Changed Naproxen (naproxen 250 mg oral tablet) 500 Milligram Oral Two times a day with meals Duration: 14 Days Pickup at [facility] #[id number] 06/18/23 8PM Changed Oxycodone (oxyCODONE 5 mg oral tablet) 10 Milligram Oral 4 times a day as needed for Pain , Moderate Duration: 7 Days [id number] As Needed Unchanged Albuterol (Ventolin HFA 108 mcg/ inh inhalation aerosol with adapter) INHALE TWO PUFFS EVERY 6 HOURS NEEDED FOR COUGH OR FOR WHEEZING ?? As Needed Unchanged Azelastine Nasal (azelastine 137 mcg/ inh (0.1%) nasal spray) USE TWO SPRAYS IN EACH NOSTRIL TWICE DAILY ?? As Needed Unchanged Cetirizine (cetirizine 10 mg oral tablet) 1 tab(s) Oral Daily TAKE ONE TABLET DAILY ?? 06/19/23 8AM Unchanged Cholecalciferol (Vitamin D3 5000 intl units oral tablet) 1 tab(s) Oral Daily 06/19/23 8AM Unchanged Cyanocobalamin (Vitamin B-12 1000 mcg oral tablet) 1 tab(s) Oral Daily TAKE ONE TABLET BY MOUTH EVERY DAY ?? 06/19/23 8AM Unchanged Docusate (Docusate Sodium Capsule) 100 Milligram Oral Twice a day 06/18/23 8PM Unchanged fluticasone/ umeclidinium/ vilanterol (Trelegy Ellipta inhalation powder) 1 puff(s) Inhalation Daily as needed for Wheezing/Shortness of Breath INHALE ONE PUFFS BY MOUTH into lungs EVERY DAY, RINSE MOUTH AFTER USE ?? As Needed Unchanged Miscellaneous Rx (baclofen 10 mg tablet) TAKE ONE TABLET TWICE DAILY ?? Unchanged Miscellaneous Rx (cholecalciferol (vitamin D3) 25 mcg (1,000 unit) tablet) TAKE ONE TABLET DAILY ?? 06/19/23 8AM Unchanged Miscellaneous Rx (hmelediglehf-xlqxwgos-swiu fumarate 7.5 mg-folic acid 400 mcg tablet) Take 1 Tablet by mouth daily. ?? 06/19/23 8AM Unchanged Nystatin Topical (nystatin topical 938847 u/ gm cream) APPLY TO THE AFFECTED AREA(S) THREE TIMES DAILY ?? 06/18/23 8PM Unchanged semaglutide (Ozempic 8 mg/ 3 mL (2 mg dose) subcutaneous solution) Every Monday INJECT 2mg's SUBCUTANEOUSLY ONCE WEEKLY ?? Resume home schedule Unchanged Thiamine (Vitamin B1 100 mg oral tablet) 1 tab(s) Oral Daily TAKE ONE TABLET BY MOUTH EVERY DAY ?? 06/19/23 8AM [id number]: [address], [place] [id number] [phone] ?? What How Much When Comments Stop Taking Aspirin (Aspirin Tablet) 325 Milligram Oral Daily Stop Taking Atorvastatin (atorvastatin 20 mg oral tablet) 1 tab(s) Oral Daily at Bedtime TAKE ONE TABLET AT BEDTIME ?? Prescription Given During Visit Acetaminophen (acetaminophen 325 mg oral tablet) - 975 mg, By Mouth, 3 times a day, # 270 tablet, 0Refills, Temperature Greater than 100.5, [facility] #[id number], [address] [place] [phone]?? Calcitonin (calcitonin 200 iu/inh nasal spray) - , # 1 each, 0 Refills, 1 sprays Naris, alternate nostrils, [facility] #[id number], [address] [place] [phone]?? Lansoprazole (lansoprazole 15 mg oral tablet, disintegrating) - 15 mg, By Mouth, Daily, # 14 each, 0 Refills, [facility] #[id number], [address] [place] [phone]?? Naproxen (naproxen 250 mg oral tablet) - 500 mg, By Mouth, 2 times a day with meals, # 56 each, 0 Refills, [facility] #[id number], [address] [place] [address] [phone]?? Oxycodone (oxyCODONE 5 mg oral tablet) - 10 mg, By Mouth, 4 times a day, # 24 tablet, 0 Refills, [facility] #[id number], [address] [place] [phone]?? Laboratory Results Below is a partial list of the most recent Laboratory test results done prior to this discharge. You may have had other tests and procedures not included in this list. Please discuss all test resultswith your provider. Est Creatinine Clearance - 38.90 mL/min (06/18/2023) Basic Metabolic Panel (06/18/2023) ???Sodium - 140 mmol/L???Potassium - 4.3 mmol/L???Chloride - 106 mmol/L???Bicarbonate Level - 23 mmol/L???Anion Gap - 11???Glucose Level - 122 mg/dL???BUN - 17 mg/dL???Creatinine-Blood - 1.0 mg/dL???Estimated GFR Creatinine - 62 ML/MIN/1.73 M2???Calcium - 9.1 mg/dL BUN (06/12/2023) ???BUN - 12 mg/dL CBC (06/18/2023) ???WBC - 6.8 k/mm3???RBC - 4.01 m/mm3???Hgb - 11.7 Gm/dL???Hct - 37.2 %???MCV - 92.8 femtoliters???MCH - 29.2 pg???MCHC - 31.5 g/dL???Platelet Count - 204 k/mm3???RDW-SD - 47.8 femtoliters???MPV - 11.2 femtoliters???Nucleated RBC (Automated) - 0.0 #/100 WBC'S???Abs. NRBC - 0.0 k/mm3 CBC w/ Differential (06/10/2023) ???WBC - 6.5 k/mm3???RBC - 4.32 m/mm3???Hgb - 12.2 Gm/dL???Hct - 39.0 %???MCV - 90.3 femtoliters???MCH - 28.2 pg???MCHC - 31.3 g/dL???Platelet Count - 298 k/mm3???RDW-SD - 44.8 femtoliters???MPV - 10.0 femtoliters???Nucleated RBC (Automated) - 0.0 #/100 WBC'S???Abs. NRBC - 0.0 k/mm3???Abs. Neut - 4.2 k/mm3???Abs. Lymph - 1.3 k/mm3???Abs. Amelia - 0.6 k/mm3???Abs. Eo - 0.3 k/mm3???Abs. Baso - 0.1 k/mm3???Neut % - 64.2 %???Lymph % - 20.2 %???Amelia % - 9.1 %???Eos % - 4.3 %???Baso % - 1.9 %???Imm Gran - 0.3 %???Abs. Imm Gran - 0.0 k/mm3 Comprehensive Metabolic Panel (06/10/2023) ???Sodium - 144 mmol/L???Potassium - 3.4 mmol/L???Chloride - 111 mmol/L???Bicarbonate Level - 18 mmol/L???Anion Gap - 15???Glucose Level - 87 mg/dL???BUN - 14 mg/dL???Creatinine-Blood - 1.1 mg/dL???Estimated GFR Creatinine - 56 ML/MIN/1.73 M2???Calcium - 9.6 mg/dL???Protein, Total - 6.4 Gm/dL???[place] min - 4.3 Gm/dL???AG Ratio - 2.0???Alkaline Phosphatase - 216 units/L???AST (SGOT) - 21 units/L???ALT (SGPT) - 14 units/L???Bilirubin, Total - 0.3 mg/dL COVID-19, RSV, and Flu A/B, Rapid PCR (06/10/2023) ???Influenza A PCR - NEGATIVE???Influenza B PCR - NEGATIVE???RSV PCR - NEGATIVE???COVID-19 PCR Specimen Source - NASAL???COVID-19 PCR Result - NEGATIVE Creatinine (06/12/2023) ???Creatinine-Blood - 1.0 mg/dL???Estimated GFR Creatinine - 59 ML/MIN/1.73 M2 CRP (06/10/2023) ? ?C-Reactive Protein - <0.3 mg/dL ELECTROLYTES (06/12/2023) ???Sodium - 144 mmol/L???Potassium - 3.9 mmol/L???Chloride - 111 mmol/L???Bicarbonate Level - 20 mmol/L???Anion Gap - 13 ESR (06/10/2023) ???Sed Rate - 20 mm/hr GLUCOSE POC (06/18/2023) ???Glucose, POC - 83 mg/dL Lipase (06/10/2023) ???Lipase - 50 units/L Urinalysis w/hold for Urine Culture (06/10/2023) ???Appear/Color, Urine - YELLOW???Specific [place], Urine - 1.046???pH, Urine - 6.5???Albumin, Urine - TRACE???Glucose, Urine - NEGATIVE???Ketones, Urine - NEGATIVE???Bilirubin, Urine - NEGATIVE???Hemoglobin, Urine - NEGATIVE???Nitrite, Urine - NEGATIVE???Leukocyte, Urine - NEGATIVE???Urobilinogen - NORMAL? ?WBC's, Urine - 2 /HPF? ?RBC's, Urine - 1 /HPF? ?Bacteria - SLIGHT? ?Squamous Epith - <1 /HPF???Hold Urine Culture - Testing available 48 hours from time of collection. Allergies (NKA means No Known Allergies) metFORMIN??(GI Upset) sulfADIAZINE??( swell up ) sulfa drugs??(swelling, shortness of breath) Problems Active Problems??(4) Asthma-COPD overlap syndrome?? Chronic sacroiliac joint pain?? Diabetes mellitus due to underlying condition with diabetic neuropathy, unspecified?? Hyperlipidemia?? Education Materials Below is the list of Educational Leaflet Providered with your Discharge Instructions. Web[employer] Ignite Patient Education - Vertebral Compression Fracture?? [employer] Patient Education - Lansoprazole Delayed Release Oral Capsule?? Web[employer] Ignite Patient Education - [place] Calcitonin Nasal [place]?? Web[employer] Ignite Patient Education - Acetaminophen Oral Tablet?? Web[employer] Ignite Patient Education - Oxycodone Oral Tablet?? Web[employer] Ignite Patient Education - Kyphoplasty?? Web[employer] Ignite Patient Education - Vertebral Compression Fracture?? Valuables and Belongings I fully understand and agree that [facility] accepts no responsibility for all my personal [...] Review of Valuable and Belonging List: With patient, With witness Date for Pt to Sign Valuables/Belongings: 06/11/23 18:45:00 ?? Other Discharge Information ? Case Management Discharge Plan?? Discharge Plan?? Discharge Agency Information?? Discharge Level of Care at Discharge: Homehealth/VNA Name of Agency #1: [facility] Discharge VNA/Hospice/Home Care: [facility] Name of Agency #1: [facility] Discharge Medical Equipment Companies: [employer] Coal Trimmer #1: wound care coordinator ?? Service Categories #1: Physical Therapy ?? Service Comments #1: [facility] will be providing you with PT at home, if you have any questions please call your wound care coordinator dircetly. ?? Service Categories #2: Walker ?? Service Comments #2: Your walker was provided to you by [facility], if you have any questions please call the agency directly. ?? Pulmonary Rehab Status?? Pulmonary Rehab Discharge Status?? Respiratory Rate: 20 br/min Discharge Medical Equipment Companies: [employer] ? Common Emergency Awareness Tips IS IT [...] are strongly encouraged to quit. Please call [facility] [employer] [facility] at [phone] or [phone] ([phone]) or log in to [email or web address] for referrals to smoking cessation programs. ?? 175 Suicide & Crisis Lifeline is available 17/10 if you or someone you know needs to find a reason to keep living. By calling 412 you'll be connected to a skilled, trained counselor at a crisis center in your area. INPATIENT DISCHARGE INSTRUCTIONS SIGNATURE PAGE YANET KING Location:[facility] Registration Date and Time:06/11/2023 01:55 EDT Primary Care Physician: Ayan Clayton III, MD, Attending Physician: Manuel Ramirez MD, YANET FREED, have received the above patient education materials/instructions and have verbalized understanding. If ambulance or transport services are being used I further acknowledge being given a choice of service. ?? If you need to contact me, please call me at this number: . Patient/Supervisor [employer] Name: Patient/Supervisor [employer] Signature: Relationship to Patient: Witness Name/Signature: Date: * José Miguel Sharma DO: PERFORM Event Display: Patient Education Leaflets Authored Date: [id number] Vertebral Compression Fracture ?? [id number] Vertebral Compression Fracture You have a crushed vertebra. This is a compression fracture of 1 or more bones in your spine. This kind of break usually happens in older people with thinning of the bones called osteoporosis. It mayhappen after a ground-level fall or even with a very minor force. This can include bending forward,getting up from a seated position, coughing, or sneezing. It may also occur in young healthy people after a severe injury, such as a car accident or a fall from a height. This is generally a stable break. This means the spine doesn't need to be realigned orfused. And it usually doesn't cause any injury to the spinal cord or nerves. This injury often takes 1 to 3 months to heal. It can be treated at home with bed rest and pain medicine. Prescription or uidd-zzv-snefcbd pain medicine can be used to control the pain. Long-term use of pain medicine can increase the risk of side effects. This includes liver or kidney damage, gastrointestinal bleeding, constipation, or narcotic dependence. If you have chronic liver or kidney disease, or ever had a stomach ulcer or gastrointestinal bleeding, talk with your healthcare provider before using these medicines. If pain medicine is needed for more than 1 to 2 weeks, talk with your providerabout other treatment options. A back brace or abdominal binder may be prescribed. This reduces pain by limiting motion at the fracture site. If you have osteoporosis, talk with your healthcare provider about using calcium and vitamin D3 supplements. You may need prescription medicines to prevent further bone loss. If you take co rticosteroids, smoke or take nicotine products, or you had a bariatric surgery, talk to your provider about how this affects your bones. An exercise program to increase spine strength is a very important part of the treatment plan. It should start once the pain is under control. If you have severe and lasting pain, your provider may advise a procedure called a vertebral augmentation. In this procedure, a needle is used to inject a bone cement into the fractured vertebra. Home care ??? You may need to stay in bed for the first few days. But start sitting or walking as soon as possible. This will help prevent problems with prolonged bed rest such as: muscle weakness, worsening back stiffness and pain, and blood clots in the legs. ??? When in bed, try to find a comfortable position. A firm mattress is best. Try lying flat on your back with pillows under your knees. You can also try lying on your side with your knees bent up toward your chest and a pillow between your knees. ??? Don't sit for long periods of time. This puts more stress on the low back than standing or walking. ??? Apply an ice pack over the injured area for 15 to 20 minutes every 3 to 6 hours. You should do this for the first 24 to 48 hours. To make an ice pack, put ice cubes in a plastic bagthat seals at the top. Wrap the bag in a thin towel or cloth before using it. You can start with ice, then switch to heat after 2 days. Apply heat (warm shower or warm bath) for 15 to 20 minutes several times a day for muscle spasms. Some people feel best alternating ice and heat treatments. Use the one method that feels the best to you. Be careful not to injure your skin with the ice or heat treatments. Ice should never be applied directly to skin. Warm rather than hot heat should be used to protect skin areas that have decreased sensation. ??? Take pain medicine as directed. Call your healthcare provider if your pain isn't well-controlled. A dose change, stronger medicine, or other treatment options may be needed. ??? Be aware of safe lifting methods. Don't lift anything over 10 pounds until all the pain is gone. ?? Follow-up care Follow up with your healthcare provider as advised. If X-rays were taken, you'll be told of any newfindings that may affect your care. ?? Call 911 Call 911 if you have: ??? Weakness or numbness in 1 or both legs ??? Loss of control over bowels orbladder ??? Numbness in the groin area ?? When to get medical advice Call your healthcare provider right away if the pain gets worse or spreads to your arms or legs. ?? Last Reviewed Date: 2021 ?? [employer]. All rights reserved. This information is not intended as a substitute for professional medical care. Always follow your healthcare professional's instructions. ?? * José Miguel Sharma DO: PERFORM Event Display: Patient Education Leaflets Authored Date: [id number] Lansoprazole Delayed Release Oral Capsule ?? [id number] Lansoprazole Delayed Release Oral Capsule Brands: Prevacid Uses This medicine is used for the following purposes: ??? indigestion ??? inflammation of stomach ??? inflammation of the esophagus ??? stomach acid ??? stomach acid reflux ??? ulcers in stomach or intestines ??? ulcers in stomach or intestines ?? Instructions Swallow the medicine without crushing or chewing it. Take the medicine on an empty stomach. Take the medicine before eating. Store at room temperature away from heat, light, and moisture. Do not keep in the bathroom. This medicine can reduce the absorption of other medicines. Talk to your doctor or pharmacist aboutthe best times to use this product. If you forget to take a dose on time, take it as soon as you remember. If it is almost time for thenext dose, do not take the missed dose. Return to your normal schedule. Do not take 2 doses at one time. Drug interactions can change how medicines work or increase risk for side effects. Tell your healthcare providers about all medicines taken. Include prescription and otea-xdn-hdijqke medicines, vitamins, and herbal medicines. Speak with your doctor or pharmacist before starting or stopping any medicine. Tell your doctor if symptoms do not get better or if they get worse. This medicine may affect the strength of your bones. If you have or are at increased risk for osteoporosis (weakening of the bones), your doctor may recommend foods with calcium and vitamin D. ?? Cautions This medicine is not recommended for use in children younger than 1. Tell your doctor and pharmacist if you ever had an allergic reaction to a medicine. Do not use the medication any more than instructed. Please tell your doctor if you have moderate to severe diarrhea while on this medicine. Do not treat the diarrhea with grei-idh-uajxwug diarrhea medicine. It is unknown if this medicine passes into breast milk. Ask your doctor before . During , this medicine should be used only when clearly needed. Talk to your doctor about the risks and benefits. Do not share this medicine with anyone who has not been prescribed this medicine. Some patients have serious side effects from this medicine. Ask your pharmacist to show you the information from the Food and Drug Administration (FDA) and discuss it with you. ?? Side Effects The following is a list of some common side effects from this medicine. Please speak with your doctor about what you should do if you experience these or other side effects. ??? diarrhea ??? headaches ??? stomach upset or abdominal pain Call your doctor or get medical help right away if you notice any of these more serious side effects: ??? severe or persistent abdominal pain ??? severe, watery or bloody diarrhea ??? fever ??? numbness or tingling in hands and feet ??? fast or irregular heart beats ??? pain in the joints ??? signs of kidney damage (such as change in urine color or bubbly urine) ??? muscle aches, spasms or abnormalmovements ??? butterfly-shaped rash on nose and cheeks ??? seizures ??? severe stomach or bowel pain ??? swelling in the neck or throat ??? weakness A few people may have an allergic reaction to this medicine. Symptoms can include difficulty breathing, skin rash, itching, swelling, or severe dizziness. If you notice any of these symptoms, seek medical help quickly. ?? Extra Please speak with your doctor, nurse, or pharmacist if you have any questions about this medicine. ?? [email or web address] IMPORTANT NOTE: This document tells you briefly how to take your medicine, but it does not tell youall there is to know about it. Your doctor or pharmacist may give you other documents about your medicine. Please talk to them if you have any questions. Always follow their advice. There is a more complete description of this medicine available in Latvian. Scan this code on your smartphone or tablet or use the web address below. You can also ask your pharmacist for a printout. If you have any questions, please ask your pharmacist. The display and use of this drug information is subject to Terms of Use. Copyright(c) 2022 [employer]. ?? [employer]. All rights reserved. This information is not intended as a substitute for professional medical care. Always follow your healthcare professional's instructions. ?? * José Miguel Sharma DO: PERFORM Event Display: Patient Education Leaflets Authored Date: [id number] [place] Calcitonin Nasal [place] ?? [id number] [place] Calcitonin Nasal [place] Brands: Miacalcin Uses For bone strength. ?? Instructions Alternate nostrils each time you use the medicine. Keep the medicine in the refrigerator until you are ready to use it. Do not freeze. Remove from therefrigerator and let it warm up to room temperature before using. Keep the medicine at room temperature once opened. Do not put it back into the refrigerator. This medicine is for use in the nose. Avoid getting the medicine into the eyes or mouth. Rinse the eyes with water if the medicine is sprayed into the eyes. It is important that you keep taking each dose of this medicine on time even if you are feeling well. If you forget to take a dose on time, take it as soon as you remember. If it is almost time for thenext dose, do not take the missed dose. Return to your normal schedule. Do not take 2 doses at one time. Tell your doctor and pharmacist about all your medicines. Include prescription and rwtu-hqm-dpettsdasmvmlsop, vitamins, and herbal medicines. Do not share this medicine with anyone who has not been prescribed this medicine. ?? Cautions Do not use the medication any more than instructed. You may need to take a vitamin while on this medicine. Ask your doctor, nurse, or pharmacist. Tell the doctor or pharmacist if you are , planning to be , or . ?? Side Effects The following is a list of some common side effects from this medicine. Please speak with your doctor about what you should do if you experience these or other side effects. ??? back pain ??? irritation inside the nose ??? runny nose A few people may have an allergic reaction to this medicine. Symptoms can include difficulty breathing, skin rash, itching, swelling, or severe dizziness. If you notice any of these symptoms, seek medical help quickly. ?? Extra Please speak with your doctor, nurse, or pharmacist if you have any questions about this medicine. ?? [email or web address] IMPORTANT NOTE: This document tells you briefly how to take your medicine, but it does not tell youall there is to know about it. Your doctor or pharmacist may give you other documents about your medicine. Please talk to them if you have any questions. Always follow their advice. There is a more complete description of this medicine available in Latvian. Scan this code on your smartphone or tablet or use the web address below. You can also ask your pharmacist for a printout. If you have any questions, please ask your pharmacist. The display and use of this drug information is subject to Terms of Use. Copyright(c) 2022 [employer]. ?? [employer]. All rights reserved. This information is not intended as a substitute for professional medical care. Always follow your healthcare professional's instructions. ?? Patient Care team information Care Team Personnel Name: Ayan Clayton III, MD Position: Reference Physician Member Role: PCP Address: Address: [address] [place] [id number] Name: Bryan Larios RN Position: S RN Member Role: Primary Care Nurse Name: Tati Burnett RN Position: [facility] RN Member Role: Primary Care Nurse Name: José Miguel Rodas RN Position: S RN Member Role: Primary Care Nurse Name: Natasha Lopez RN Position: S RN Member Role: Primary Care Nurse Name: Yuliya Younger Position: [facility] RN Member Role: Primary Care Nurse Care Team Related Persons Name: KRISHNA QUEEN Address: [place] [address] Name: JUAN DAVID KING Address: home [address] [place] [id number] Name: BOOM KING Address: [address] [address]
--- OUTSIDE RECORDS SUMMARY | 2023-09-01 09:39 | XMS_ITS | Continuity of Care Document ---
Author Organization [facility] Address [address] [place] [id number]- Care Team Providers Care Marketing Mgr Name Role Phone Ayan Clayton III, MD Primary Care Physician Encounter [facility] Date(s): 12/09/20 - 01/08/21 [facility] [address] [place] [id number] Attending Physician: Admtr, Robson Admitting Physician: AdmtrRobson Referring Physician: Admtr, Ar8 Allergies, Adverse Reactions, Alerts Substance Reaction Severity Status sulfADIAZINE swell up Active metFORMIN Active Immunizations Given and Recorded Vaccine Date Status Refusal Reason SARS-CoV-2 (COVID-19) mRNA-1273 vaccine 06/23/20 G iven SARS-CoV-2 (COVID-19) mRNA-1273 vaccine 05/26/20 G iven Medications (Vitamin D3) Cholecalciferol 400 MCC units/mL oral syringe 1 mL = 400 [...] 02/06/19 15:27:10 EST, Route to Pharmacy Electronically, NCPDP_[id number], [facility] Start Date: 02/06/19 [...] 02/06/19 15:28:14 EST, Route to Pharmacy Electronically, NCPDP_[id number], [facility] Start Date: 02/06/19 Status: Ordered Problem List Condition Effective Dates Status Health Status Inform ant Morbid obesity(Confirmed) Active Chronic sacroiliac joint pain(Confirmed) Active Diabetes mellitus due to und erlying condition with diabetic neuropathy, unspecified(Confirmed) Active
--- OUTSIDE RECORDS SUMMARY | 2023-09-01 09:39 | XMS_ITS | Continuity of Care Document ---
Author Organization [facility] Address [address] [place] [id number]- Care Team Providers Care Tong Hooker Name Role Phone Forrest BENNETT MD, Ayan Esqueda Primary Care Physician [place] [facility] [place] 06/27/23 - 07/04/23 [facility] [address] [place] [address]- Attending Physician: Vega Garcia MD Admitting Physician: [...] 06/18/23 12:20:00 EDT, Route to Pharmacy Electronically, [id number], Partial fill upon... Start Date: 06/18/23 Stop [...] each, 0 Refills, Maintenance, 06/18/23 12:22:00 EDT, [id number], Partial fill upon patient request if the [...] Refills, Maintenance, 06/18/23 12:23:00 EDT, DIS Tablet, [facility] #[id number], 152, cm, 06/17/23 4:04:00 EDT, Height, 63, kg, 06/11/23 11:32:00 EDT, Dry Weight Start Date: 06/18/23 Stop Date: 07/02/23 Status: Ordered mwrfwkdyitql-wtvjrvvn-xjbi fumarate 7.5 mg-folic acid 400 mcg tablet ffuntjvhxnrf-ixakujjw-psyb fumarate 7.5 mg-folic acid 400 mcg tablet, Take 1 Tablet by mouth daily. Start Date: 11/01/22 Status: Ordered nystatin topical 018103 u/gm cream APPLY TO THE AFFECTED AREA(S) [...] Date Device Type Site Bone Graft Calcaneal Shannan ROGERS, Alexis De Oliveira 11/21/22 Unknown Arm Right Device Identifier Serial Number Lot or Batch Number Manufacturing Date Expiration Date Distinct Identification Code MRI Safety Implantable Status Assigning Authority [id number] Unknown 01/22/24 Unknown Unknown Active GS1 Radiology * Jose ROGERS, Vega Mcintosh: PERFORM Event Display: IR Office Follow-up Note Authored Date: [id number] Patient: ??LUIS, LEIDA ? Age:??67 Years?Sex:??Female?:??1955?? I had a telehealth consultation this morning with her following up on??a kyphoplasty performed by me on 15 June.?? In summary she has multiple problems including joint disease affecting the hips andprevious surgeries to the spine.?? The immediate problem which was addressed by kyphoplasty was an acute T11 vertebral compression fracture and consult with??causing severe pain.?? This was a procedure performed while patient was??admitted to the hospital. ??She was discharged home 2 days later. ?? Today??I called her at her home telephone number. ??She did not brain picker but she called back a few minutes later.?? She identified herself by name and date of . ??She gave consent for a telehealth consultation. ??I was at my office at [facility]. ??Total time in this interaction which was entirely??Counseling concerning her condition neXT steps in management??and my assessment ofher response to treatment??was in excess of 15 minutes. ?? In summary this unfortunate lady with multiple other??medical problems including diabetes hyperlipidemia COPD jhadsevere pain complicating a T11 vertebral compression fracture.?? A kyphoplasty was performed by me on 15 June. ??This went very well from a technical point of view.?? She was discharged home 2 days later.?? Today she tells me she is doing very well. ??Her back is??''doing good''. ??The pain is much reduced. ??However her legs are weak as was the case before the procedure and is sheis due to have hip surgery by Dr. Ruiz she thinks in August. ??However she is very happy with the results of the back procedure.?? Lower extremity??symptoms are unchanged from before??the procedure.?? I explained to her that if all is going well as far as the pain in her back is concerned??I will sign off for now. I explained she should have a low threshold to contact me again should there be any new pain in her back which may indicate??that her osteoporosis has led to a further compression fracture.?? She understands this. ??Also told her that I will be out for the??medical reasons for the next 2 weeks and so she could contact one of my??IR colleagues should there be any concerns. ?? Thank you for this kind consultation. ?? Sherron Larson, Conrad, Sadi. Professor, Department of Radiology at [facility]-[address] ?? [place] [address]?? Fax: ?? E-mail:??[email or web address] ? Telehealth Visit:??Time of direct telehealth encounter/medical discussion was well in excess of 15 minutes. The patient was located in a home setting in the [facility] during this telephone electronic televisit and gave consent to conduct the visit via telehealth. Dr Garcia the provider was located in a [facility] office. Persons other than patient involved in televisit included: nONE Patient Care team information Care Team Personnel Name: Ayan Clayton III, MD Position: Reference Physician Member Role: PCP Address: Address: [address] [place] [id number] Name: Bryan Larios RN Position: S RN [...] Team Related Persons Name: KRISHNA QUEEN Address: [place] [address] Name: JUAN DAVID SMITH Address: home [address] [address] Name: BOOM SMITH Address: home [address] [address]
--- OUTSIDE RECORDS SUMMARY | 2023-09-01 09:39 | XMS_ITS | Continuity of Care Document ---
Author Organization [facility] ter Address [address] [place] [id number]- Care Team Providers Care Rehabilitation Specialist Name Role Phone Forrest BENNETT MD, Ayan Esqueda Primary Care Physician Encounter [facility] ACCT R [id number] Date(s): 10/07/22 - 11/11/[address] [address] Attending Physician: Alexis Campbell MD Admitting Physician: Alexis Campbell MD Allergies, Adverse Reactions, [...] FOR PAIN Start Date: 11/01/22 Status: Ordered pwpmqcqtpwim-ehgjmltr-rqqf fumarate 7.5 mg-folic acid 400 mcg tablet mgjcpwvhwvik-ywodvcab-dent fumarate 7.5 mg-folic acid 400 mcg tablet, Take 1 Tablet by mouth daily. Start Date: 11/01/22 Status: Ordered nystatin topical 161023 u/gm cream APPLY TO THE AFFECTED AREA(S) [...] Reference Physician Member Role: PCP Address: Address: [address] [place] [id number]- Name: Bryan Larios RN Position: S RN Member Role: Primary Care Nurse Care Team Related Persons Name: KRISHNA QUEEN Address: [place] [address] Name: JUAN DAVID SMITH Address: home [address] [address] Name: BOOM SMITH Address: home [address] [address]
== END 2023-08-31 13:07 | disposition home health service (06) | DRG 470 ==
LOC: HO.SSSA 09:19 → HO.S3 10:25
PROVIDERS: Anesthesiology; Physician Assistant; Admitting Provider Orthopaedic Surgery; PCP Hospitalist; Visit Provider Orthopaedic Surgery
PROC: 0SRB03A Replacement of Left Hip Joint with Ceramic Synthetic Substitute, Uncemented, Open Approach (ICD-10-PCS; CPT 27130; principal; 2023-08-29 07:30)
DX: M16.12 Unilateral primary osteoarthritis, left hip (principal); J44.9 Chronic obstructive pulmonary disease, unspecified; E11.9 Type 2 diabetes mellitus without complications; I10 Essential (primary) hypertension; E78.5 Hyperlipidemia, unspecified; Z98.84 Bariatric surgery status; Z87.891 Personal history of nicotine dependence; Z79.85 Long-term (current) use of injectable non-insulin antidiabetic drugs; Z79.899 Other long term (current) drug therapy
CPT/HCPCS: 36415; 72170; 80048; 80076; 82947; 83036; 85025; 85027; 86850; 86900; 86901; 87640; 87641; 88304; 88311; 97110; 97116; 97162; 97166; 97530; C1776; J0131; J0690; J1100; J1170; J1200; J2250; J2405; J2704; J2795; J3010; J7120

== ENCOUNTER → 2023-08-29 06:05 | Outpatient (BNV) | payer OTHER, SELFPAY | PROVIDERS: Admitting Provider Orthopaedic Surgery; PCP Hospitalist; Visit Provider Orthopaedic Surgery | DX: Z47.1 Aftercare following joint replacement surgery (principal); Z96.642 Presence of left artificial hip joint | CPT/HCPCS: 27130; 99024; G0180 ==

== ENCOUNTER → 2023-08-29 06:05 | Outpatient (BNV) | payer OTHER, SELFPAY | PROVIDERS: Admitting Provider Orthopaedic Surgery; PCP Hospitalist; Visit Provider Nurse Practitioner Acute Care | DX: I10 Essential (primary) hypertension (principal); E78.5 Hyperlipidemia, unspecified | CPT/HCPCS: 99222 ==

== ENCOUNTER 2023-09-06 10:05 | Outpatient (AMB) | payer OTHER, SELFPAY ==
--- NOTE | 2023-09-06 10:07 | A.OFFVIS_ITS ---
Intake Visit Reasons: PO wound check, LT CHINYERE 08/29/23 NE Intake Note: Yanet a 67 year old female who presents today for a post operative wound check s/p left CHINYERE on 08/29/23. Patient reports since yesterday she has been experiencing excruciating pain in her left hip that radiates down her leg. She is unable to label remover her left leg with out pain. Finds no relief with oxycodone. Allergies Sulfa (Sulfonamide Antibiotics) Allergy (Intermediate, Verified 09/06/23 10:13) SWELLING metformin Adverse Reaction (Intermediate, Verified 09/06/23 10:13) diarrhea Medication List - Last Reconciled 09/06/23 by Izabel Hoang PA-C acetaminophen 650 mg (2 x 325 mg) PO Q6H PRN 30 days albuterol sulfate 90 mcg/actuation (Ventolin HFA) 2 puffs inhalation Q6H PRN aspirin 325 mg PO BID 42 days atorvastatin 20 mg PO DAILY B-complex with vitamin C 1 tab PO DAILY celecoxib 100 mg PO BID cetirizine 10 mg PO DAILY cholecalciferol (vitamin D3) 25 mcg DAILY cyanocobalamin (vitamin B-12) 1,000 mcg PO DAILY docusate sodium 100 mg PO BID 14 days lfrmoqpgekw-htzmysajv-enendczm 100-62.5-25 mcg (Trelegy Ellipta) 1 ea inhalation DAILY hydroxyzine HCl 50 mg PO BID lisinopril 2.5 mg PO DAILY bjzxjnsc-qjz-qmup fum-folic ac 7.5 mg iron-400 mcg 1 tab PO DAILY nystatin 1 appl topical DAILY PRN oxycodone 5 mg PO Q4H PRN 7 days semaglutide (Ozempic) 2 mg subcut WE@0900 thiamine HCl (vitamin B1) 100 mg PO DAILY tizanidine 4 mg PO Q6H PRN HPI HPI PO wound check, LT CHINYERE 08/29/23 NE: Details: 67-year-old female who returns to the office today for post-op wound check s/p left CHINYERE, 08/29/[address] Ruiz. She reports she has sudden pain in her left hip that radiates down to her leg since yesterday. She is unable to label remover her left leg without pain. She is working on physical therapy as instructed. She finds no relief with oxycodone. She denies injury or recent fall. [facility] Medical History (Updated 09/06/23 @ 12:32 by Izabel Hoang PA-C) Osteoarthritis (arthritis due to wear and tear of joints) Abdominal hernia Asthma Arthritis COVID-19 vaccine series completed Full dentures Arthritis of left hip Low back pain Liver cyst IDDM (insulin dependent diabetes mellitus) COPD (chronic obstructive pulmonary disease) Elevated cholesterol Surgical History Hx of gastric bypass Hx of ankle fusion Status post insertion of nerve stimulator Hx of colonoscopy Hx of carpal tunnel repair History of back surgery Social History Household Members: Family Household Members Other:: Granddaughter [facility] Are you a primary resident care manager to a significant other at home: Yes (granddaughter) Do you presently have visiting nurse or other home services: No Patient Tobacco Use Status: Former Tobacco user Tobacco use type: Cigarette Cigarettes Per Day: 60 Second Hand Smoke Exposure: No Advance Directives: No service: No Review of Systems Const All systems reviewed & are unremarkable except as noted in HPI and below Physical Exam Const General: cooperative and no acute distress Orientation/consciousness: patient oriented x3 Resp Effort & Inspection: normal respiratory effort and able to speak in complete sentences Cardio Peripheral pulses: Peripheral pulses 2+ throughout Neuro General: patient oriented x3 Extrem Other: Left hip: Normal to inspection. She has significant discomfort with palpation over the hip flexors. Difficulty with active hip flexion. I am able to perform ROM however she has significant pain in groin region with motion. NVI. Office Procedures Fracture Care Details: new periprosthetic fracture Fracture Billing Code: Fracture Billing Code Results Reviewed Results Reviewed: X-rays of the left hip obtained in the office today is significant for a periprosthetic fracture with fracture through the greater trochanter and also depression of femoral stem. This is new when compared to postoperative films from August 28. Assessment & Plan Assessment & Plan (1) Status post total hip replacement, left: Code(s): Z96.642 - Presence of left artificial hip joint Category: Surgical (2) Periprosthetic fracture around internal prosthetic left hip joint, initial encounter: Code(s): M97.02XA - Periprosthetic fracture around internal prosthetic left hip joint, initial encounter Category: Medical Plan Images were reviewed with Dr. Ruiz in the office today and the decision was made to direct admit the patient to hospital at this time to the [facility] surg floor. Given the radiographic findings on left hip and periprosthetic fracture, this is considered an unstable hip / periprosthetic fracture that requires further surgical intervention. I did explain to the patient and daughter in the office today that this surgical intervention is recommended for her to allow to weight bear. I discussed the extent of the surgery and rehab course, she will be non weight bearing on the LLE for approx 3 months. She does understand the extent of the surgery. I did explain her the risks, benefits, and alternatives, risks including but not limiting to bleeding, nerve tissue damage, infection, blood clot, and further nonunion or malunion of the fracture. She does express understanding and would like to proceed with direct admit and surgical intervention of ORIF left hip periprosthetic fracture with Dr. Ruiz. All questions were answered. Orders: Orders XR hip LT min 2V Today M25.552 - Pain in left hip Patient Instructions: Scribed for Izabel Honag PA-C, by Yosi Ridley biomedical engineer, on 09/06/2023 at 10:45 AM EST.? I, Izabel Hoang PA-C, have personally reviewed and agree with the information entered by the scribe. Coding Level of Care Code Global (60320) Diagnoses Status post total hip replacement, left Z96.642 Periprosthetic fracture around internal prosthetic left hip joint, initial en counter M97.02XA CPT Codes Fracture Care - Fracture Billing Code: Fracture Billing Code ([id number])
== END 2023-09-06 11:37 | disposition home or self-care (01) ==
PROVIDERS: PCP Hospitalist; Visit Provider Physician Assistant
DX: M97.02XA Periprosthetic fracture around internal prosthetic left hip joint, initial encounter (principal); Z96.642 Presence of left artificial hip joint
CPT/HCPCS: 99214

== ENCOUNTER 2023-09-06 10:05 | Outpatient (REF) | payer OTHER, SELFPAY ==
--- NOTE | ~2023-09-06 | XR_ITS ---
EXAMINATION: XR HIP, LEFT CLINICAL INFORMATION: Pain in left hip include pelvis. COMPARISON: August 29, 2023, 04/29/2023. TECHNIQUE: AP view of the pelvis and 2 views of the left hip. FINDINGS: Bones are diffusely demineralized. Surgical changes with hardware in the partially imaged lower lumbar spine. Partially imaged electronic device redemonstrated, likely a spinal stimulator. Degenerative changes in bilateral sacroiliac joints. Severe arthritis right hip with loss of the joint space and remodeling. Redemonstration of left total hip prosthesis in satisfactory position. There is a linear lucency along the medial aspect of the femoral stem component of the hardware concerning for fracture. XR/XR hip LT min 2V IMPRESSION: Redemonstration of left total hip prosthesis in satisfactory position. There is a linear lucency along the medial aspect of the femoral stem component of the hardware concerning for fracture. Please note that this exam was presented today 09/19/2023 for interpretation. Exam of 09/08/2023 has already been finalized at which time findings were addressed. Please refer to the report for the exam of 09/08/2023 for more detailed evaluation.
== END 2023-09-06 10:06 | disposition home or self-care (01) ==
LOC: HO.HOSX 10:05
PROVIDERS: PCP Hospitalist; Visit Provider Physician Assistant
DX: Z13.89 Encounter for screening for other disorder (principal)
CPT/HCPCS: 73502; 99212

== ENCOUNTER 2023-09-06 11:36 | Inpatient (IN) | payer OTHER, SELFPAY ==
--- NOTE | ~2023-09-06 | XR_ITS ---
EXAMINATION: XR PELVIS CLINICAL INFORMATION: Status post revised hip arthroplasty COMPARISON: Hip and pelvis radiographs 09/06/2023 and 08/29/2023 TECHNIQUE: AP view of the pelvis. FINDINGS: Interval revision of a left total hip arthroplasty with cerclage wires and plate and screw fixation. There is a new periprosthetic fracture in the left proximal femoral diaphysis along the medial aspect femoral stem component of the hardware. Expected postsurgical change with subcutaneous emphysema and soft tissue surgical claudia. Generator device overlies the left hemipelvis. Advanced osteoarthritis of the right hip again seen similar to prior. XR/XR pelvis 1-2V IMPRESSION: 1. Interval revision of a left total hip arthroplasty with cerclage wires and plate and screw fixation. There is a new periprosthetic fracture in the left proximal femoral diaphysis along the medial aspect femoral stem component of the hardware. 2. Advanced osteoarthritis of the right hip again seen similar to prior.
--- NOTE | 2023-09-06 11:42 | PM.EVENT ---
Event Note Date of Service: 09/06/23 Event Note: Patient direct admit from office for left CHINYERE periprosthetic fracture -plan is to proceed with operative fixation monday -Patient is NWB LLE Time Spent With Patient Time: Total time managing care of this patient today ____ minutes.
[2023-09-06 12:29] VITALS: BP 92/53; PULSE 53; RESP 18; TEMP 36.1; O2SAT 96
--- NOTE | 2023-09-06 13:07 | HO.PM.IMCN ---
History of Present Illness Data of Consult Service Date: 09/06/23 Primary Care Provider: Gabbi Womack MD [facility] Reason for consult: Pre-op Medical Clearance Pt is a 67-year-old female with a PMH significant for?asthma/COPD overlap syndrome, HTN, HLD, diet-controlled type 2 diabetes, peripheral neuropathy, and mood disorder who is a direct admission to the hospital from orthopedic office after found to have a left femur periprosthetic fracture. ?Patient underwent CHINYERE on 08/29/2023 and overall reports she was doing well with pain control and rehab. However yesterday morning patient awoke to excruciating pain in her left hip. Denies recent fall or any known trauma to the area. Went to orthopedic office for checkup and imaging indicated had a periprosthetic fracture of the left femur. Patient is scheduled for surgical intervention on Monday. Hospitalist consult for medical management and preop clearance. Patient reports left hip pain radiating to groin and her toes with associated numbness and tingling. Denies any other acute medical complaints. No fever, chills, nausea, vomiting. Denies diarrhea or abdominal pain. No chest pain/pressure, palpitations. No shortness a breath or difficulty breathing. Denies headache or acute vision changes. Vitals reviewed, patient with variable BP, initially hypotensive at 92/53 then normotensive at 17/60 and hypertensive at 162/70. Labs not yet drawn. Review of Systems Review of Systems: Left hip pain radiating to groin and toes Left lower extremity numbness and tingling Patient denies any other acute medical concerns at this time [facility] Medical History Osteoarthritis (arthritis due to wear and tear of joints) Abdominal hernia Asthma Arthritis COVID-19 vaccine series completed Full dentures Arthritis of left hip Low back pain Liver cyst IDDM (insulin dependent diabetes mellitus) COPD (chronic obstructive pulmonary disease) Elevated cholesterol Surgical History Hx of gastric bypass Hx of ankle fusion Status post insertion of nerve stimulator Hx of colonoscopy Hx of carpal tunnel repair History of back surgery Social History Household Members: Children Household Members Other:: 12 year old granddaughter Housing: House Are you a primary director of home care hospice to a significant other at home: Yes (granddaughter) Do you presently have visiting nurse or other home services: No Patient Tobacco Use Status: Former Tobacco user Tobacco use type: Cigarette Cigarettes Per Day: 60 Years Smoked: quit 15 years ago Second Hand Smoke Exposure: No Use of substances other than those prescribed or required for medical reasons: No Have you been hit, kicked, punched, or otherwise hurt by someone within the past year? If so, by whom?: No Do you feel safe in your current relationship?: No Current Relationship Is there a partner from a previous relationship who is making you feel unsafe now?: No Are you made to feel afraid or neglected: No Yazidism Healthcare Practices: Rastafari Advance Directives: No Do you have a plan to hurt others: No Plan Recently lost weight without trying: No Nutrition Risks: No Nutritional Risk Patient : No : No Poor oral hygiene: No service: No Meds Allergies Allergy/AdvReac Type Severity Reaction Status Date / Time Sulfa (Sulfonamide Allergy Intermediate SWELLING Verified 09/06/23 10:13 Antibiotics) metformin AdvReac Intermediate diarrhea Verified 09/06/23 10:13 Active Medications: Current Medications Acetaminophen (Acetaminophen 325 Mg Tablet) 650 mg PO Q6H PRN PRN Reason: Pain, Mild (Pain Scale 1-3) Docusate Sodium (Docusate Sodium 100 Mg Capsule) 100 mg PO BID BLANCO Hydromorphone HCl (Hydromorphone Hcl 0.5 Mg/0.5 Ml Syringe) 0.25 mg IVPUSH Q4H PRN; Protocol PRN Reason: Pain, Severe (Pain Scale 7-10) Lactated Ringer's (Lr) 1,000 mls @ 100 mls/hr IVCONT .Q10H BLANCO Ondansetron HCl (Ondansetron Hcl 4 Mg/2 Ml Vial) 4 mg IVPUSH Q8H PRN PRN Reason: Nausea and Vomiting Oxycodone HCl (Oxycodone Hcl Immed Release 5 Mg Tablet) 5 mg PO Q4H PRN PRN Reason: Pain, Moderate(Pain Scale 4-6) Sodium Chloride (0.9 % Sodium Chloride Flush 3 Ml Syringe) 3 ml IVFLUSH QSHIFT [facility] Home Medications ?Medication ?Instructions ?Recorded ?Confirmed ?Last Taken ?Type thiamine HCl (vitamin B1) 100 mg 100 mg PO DAILY 04/29/20 09/06/23 09/06/23 06:00 History tablet albuterol sulfate 90 mcg/actuation 2 puff inhalation Q6H PRN wheezing 11/16/20 09/06/23 09/06/23 06:00 History aerosol inhaler (Ventolin HFA) atorvastatin 20 mg tablet 20 mg PO DAILY 11/16/20 09/06/23 09/06/23 06:00 History rhcjkqiydggd-dusjxqxk-pisw 1 tab PO DAILY 03/10/22 09/06/23 09/06/23 06:00 History fumarate 7.5 mg-folic acid 400 mcg tablet nystatin 100,000 unit/gram topical 1 appl topical DAILY PRN Rash 05/18/22 09/06/23 09/06/23 06:00 History powder semaglutide 2 mg/dose (8 mg/3 mL) 2 mg subcut WE@0900 06/06/22 09/06/23 09/06/23 06:00 History subcutaneous pen injector (Ozempic) lisinopril 2.5 mg tablet 2.5 mg PO DAILY 08/01/23 09/06/23 09/06/23 06:00 History fluticasone fur. 100 mcg-umeclid 1 ea inhalation DAILY 08/22/23 09/06/23 09/06/23 06:00 History 62.5 mcg-vilant 25 mcg inhalat.powder (Trelegy Ellipta) hydroxyzine HCl 50 mg tablet 50 mg PO BID 08/22/23 09/06/23 09/06/23 06:00 History tizanidine 2 mg tablet 4 mg PO Q6H PRN muscle spasticity 08/22/23 09/06/23 09/06/23 06:00 History B-complex with vitamin C 1 tab PO DAILY 08/29/23 09/06/23 09/06/23 06:00 History celecoxib 100 mg capsule 100 mg PO BID 08/29/23 09/06/23 09/06/23 06:00 History cetirizine 10 mg tablet 10 mg PO DAILY 08/29/23 09/06/23 09/06/23 06:00 History cholecalciferol (vitamin D3) 25 25 mcg DAILY 08/29/23 09/06/23 09/06/23 06:00 History mcg (1,000 unit) tablet cyanocobalamin (vitamin B-12) 1,000 mcg PO DAILY 08/29/23 09/06/23 09/06/23 06:00 History 1,000 mcg tablet aspirin 325 mg tablet 325 mg PO DAILY 09/06/23 09/06/23 09/06/23 06:00 History calcitonin (salmon) 200 1 spray intranasal DAILY 09/06/23 09/06/23 09/06/23 06:00 History unit/actuation nasal spray diclofenac sodium 1 % topical gel 1 g topical BID 09/06/23 09/06/23 09/06/23 06:00 History Physical Exam Vital Signs and Narrative: Vital Signs: Last Vital Signs Temp 96.9 F 09/06/23 12:29 Pulse 53 09/06/23 12:29 Resp 18 09/06/23 12:29 BP 92/53 L 09/06/23 12:29 Pulse Ox 96 09/06/23 12:29 O2 Del Method Room Air 09/06/23 12:29 General: AOx3, no acute distress Resp: CTA bilaterally CVS: S1, S2, RRR GI: +BS, NT, no distention Skin: Warm, dry Neuro: Cranial nerves II-XII grossly intact bilaterally. Motor grossly intact bilaterally Extremities: Left hip tenderness. Left extremity reduced ROM secondary to pain. Psych: Appropriate affect Results Labs 09/07/23 00:30 09/07/23 00:30 Assessment and Plan (1) Periprosthetic fracture around internal prosthetic left hip joint, initial encounter: Status: Acute Plan Pt is a 67-year-old female with a PMH significant for?asthma/COPD overlap syndrome, HTN, HLD, diet-controlled type 2 diabetes, peripheral neuropathy, and mood disorder who is a direct admission to the hospital from orthopedic office after found to have a left femur periprosthetic fracture. Hospitalist consult for medical management and preop clearance. Left femur periprosthetic fracture Surgery planned for Monday09/08/2023 Will check EKG Will wait on pre-op clearance pending labs tomorrow Plan as per orthopedics Asthma/COPD Not in acute exacerbation Continue home inhalers HTN BP has been variable since admission Initially hypotensive, but currently hypertensive Continue home meds Monitor BP Diet-controlled type 2 diabetes Diabetic diet once no longer NPO Peripheral neuropathy Continue tizanidine HLD Continue statin Thank you for allowing us to participate in the care of this patient. Will continue to follow for now pending EKG and labs.
[2023-09-06] MEDS: oxyCODONE HCl Immed Release 5 MG TABLET PO ×2 (13:16→19:40)
--- NOTE | 2023-09-06 13:58 | PHA.MEDREC ---
Pharmacy Consult ? Medication Reconciliation Pharmacy has completed the medication reconciliation. Was able to confirm meds with patient. She gets an Ozempic injection once weekly on Wednesdays and patient confirmed she took her dose this morning before coming to the hospital.
[2023-09-06] MEDS: Acetaminophen 325 MG TABLET 650 MG PO (15:04)
--- NOTE | 2023-09-06 15:07 | PC.NURSE ---
unable to insert new IV ,2 RN s attempted,VILMA Esteban will try soon to obtain IV access,patient made aware
[2023-09-06 15:32] VITALS: BP 117/60; PULSE 69; RESP 18; TEMP 36.3; O2SAT 97
--- NOTE | 2023-09-06 16:25 | MHC.CM.PN ---
Addendum entered by Melanie Bowling 09/07/23 09:38: PT ALSO HAS DAILY PHYSICIAN PRACTICE MARKET MANAGER SERVICES WHICH WILL RESUME AT DC SHE USES A WALKER, ROLLATOR, COMMODE, SHOWER CHAIR AND GRAB BARS FOR DME PTS DAUGHTER WILL BRING IN A COPY OF HER HCP TODAY Original Note: IMM 09/06/23 Patient is a direct admit from [facility] Orthopedic office. Patient was discharged last week. She returns with DX Sherrie proshetic FX. She is planned for the OR Monday09/08/23. Met with patient for STR preferences. She refuses to discharge to a STR. She plans to discharge to home with resumption of HVNA. A List of [facility] contracted SNFs was provided to the patient; but she refused to look at the list. She will receive help at home from family members. Family is trying to convince the Pt to go to STR. CM will follow for discharge. HCP is on file.
[2023-09-06] MEDS: 0.9 % Sodium Chloride Flush 3 ML SYRINGE IVFLUSH (16:42)
[2023-09-06] MEDS: Lactated Ringers 1,000 ML 100 ML IVCONT (16:42)
[2023-09-06 20:00] VITALS: BP 162/70; PULSE 68; RESP 18; TEMP 36.4; O2SAT 98
[2023-09-06 20:51] VITALS: RESP 18
[2023-09-06] MEDS: HYDROmorphone HCl 0.5 MG/0.5 ML SYRINGE 0.25 MG IVPUSH (20:51)
[2023-09-06] MEDS: ondansetron HCL 4 MG/2 ML VIAL IVPUSH (20:55)
[2023-09-06] MEDS: TiZANidine HCL 4 MG TABLET PO (21:52)
[2023-09-06] MEDS: Docusate Sodium 100 MG CAPSULE PO (21:52)
[2023-09-06] MEDS: hydrOXYzine HCL 50 MG TABLET PO (21:53)
[2023-09-06] MEDS: Celecoxib 100 MG CAPSULE PO (21:53)
[2023-09-06 23:52] LABS: Glucose, Whole Blood 98 mg/dL (60-115)
[2023-09-06 23:57] VITALS: BP 92/50; PULSE 64; RESP 18; TEMP 36.1; O2SAT 95
[2023-09-07] VITALS (8 sets, daily range): BP systolic 130–180; BP diastolic 65–85; PULSE 63–105; RESP 12–18; TEMP 36.1–36.7; O2SAT 93–98; BMI 26.1
--- NOTE | 2023-09-07 | ECG_ITS ---
Test Reason : low BP Blood Pressure : / mmHG Vent. Rate : 063 BPM Atrial Rate : 063 BPM P-R Int : 160 ms QRS Dur : 080 ms QT Int : 454 ms P-R-T Axes : 019 -03 025 degrees QTc Int : 464 ms Normal sinus rhythm Normal ECG When compared with ECG of 08-OCT-2014 12:36, No significant change was found Referred By: Bret Hernandez Electronically Signed By:BOBBY ANDREW
[2023-09-07] MEDS: Lactated Ringers 1,000 ML 999 ML IV (00:18)
[2023-09-07 00:37] LABS: MANUAL DIFF FLAG NO
[2023-09-07 00:46] LABS: Basophils Absolute Auto 0.1 X10*3/uL (0.0-0.2); Eosinophils Absolute Auto 0.6 X10*3/uL (0.0-0.4); Hematocrit 26.8 % (37.0-47.0); Hemoglobin 8.7 g/dl (12.0-16.0); Imm Gran Pct Auto 1.2 % (0.0-0.4); Lymphocytes Absolute Auto 1.4 X10*3/uL (1.2-4.9); Lymphocytes Percent Auto 17.2 % (20-40); Mean Corpuscular HGB Conc 32.5 g/dl (31.0-35.0); Mean Corpuscular Hemoglobin 30.4 pg (27.0-33.0); Mean Corpuscular Volume 93.7 fL (80.0-98.0); Mean Platelet Volume 9.4 fL (9.4-12.3); Monocytes Absolute Auto 0.7 X10*3/uL (0.1-1.2); Monocytes Percent Auto 8.6 % (2-11); Neutrophils Absolute Auto 5.4 x10*3/uL (2.0-8.3); Platelet Count 299 X10*3/uL (160-400); Red Blood Count 2.86 X10*6/uL (4.20-5.50); Red Cell Distribution Width 14.6 % (11.0-16.0); White Blood Count 8.2 X10*3/uL (4.8-10.8)
[2023-09-07 00:53] LABS: INTERNATIONAL NORM RATIO 1.1 (0.9-1.1); Prothrombin Time 12.9 SEC (11.1-13.3)
[2023-09-07 00:55] LABS: Alanine Aminotransferase 8 U/L (0-31); Alkaline Phosphatase 117 U/L (39-117); Anion Gap 13 (12-20); Aspartate Amino Transferase 17 U/L (5-31); Bilirubin Total 0.3 mg/dL (0.0-1.0); Blood Urea Nitrogen 19 mg/dL (9-16); Calcium 8.5 mg/dL (8.4-10.2); Carbon Dioxide 19 mmol/L (22-29); Chloride 113 mmol/L (96-108); Creatinine Clr Calc Pharmacy 32.4; Estimated Glomerular Filt Rate 38; Glucose Random 160 mg/dL (60-115); Sodium 141 mmol/L (135-145); Total Protein 5.3 g/dL (6.5-8.0)
[2023-09-07 01:00] LABS: Lactic Acid 2.3 mmol/L (0.5-2.0)
[2023-09-07 01:03] LABS: Troponin-I High Sensitivity 3.5 ng/L (<3.5-17.0)
[2023-09-07] MEDS: 0.9 % Sodium Chloride 500 ML IV (01:45)
[2023-09-07] MEDS: Ketorolac Tromethamine 15 MG/ML VIAL IVPUSH ×3 (01:50→17:16)
[2023-09-07 02:37] LABS: Reflex Lactate? Lactic Acid Added
[2023-09-07 03:22] LABS: ~Lactic Acid-LAB USE ONLY 1.1 mmol/L (0.5-2.0)
--- NOTE | 2023-09-07 04:04 | PC.NURSE ---
Addendum entered by Nataly Valdez RN 09/07/23 04:13: Midnight vitals blood pressure with systolic 80s, manual bp 92/50, hr 64, patient reporting feeling sweaty. Patient alert and oriented. Patient with history of diabetes, poc checked 98. Dr. Naik notified. New orders for stat labs, bolus, ekg. 0130; Blood pressure post 1 Liter bolus 142/66, hr 64. 320; Blood pressure post 500 mls bolus 130/65, hr 63. Dr. Naik updated on patient's vitals. Addendum entered by Nataly Valdez RN 09/07/23 04:07: 2040; patient reporting 9/10 left leg pain, bp elevated 162/70, hr 68 . Per mar, medicated with prn dilaudid 0.25mg. Upon reassessment, patient reporting pain level has decreased. Addendum entered by Nataly Valdez RN 09/07/23 04:06: Dr. Naik notified Original Note: 1950; Patient asking for bedtime medications not ordered yet; tizanidine, celebrex, hydroxyzine.
[2023-09-07 06:36] LABS: MANUAL DIFF FLAG NO
[2023-09-07] MEDS: oxyCODONE HCl Immed Release 5 MG TABLET PO ×2 (06:37→19:43)
[2023-09-07 06:51] LABS: Basophils Absolute Auto 0.1 X10*3/uL (0.0-0.2); Eosinophils Absolute Auto 0.4 X10*3/uL (0.0-0.4); Eosinophils Percent Auto 7.2 % (0-4); Hematocrit 26.8 % (37.0-47.0); Hemoglobin 8.6 g/dl (12.0-16.0); Imm Gran Pct Auto 1.7 % (0.0-0.4); Lymphocytes Absolute Auto 1.3 X10*3/uL (1.2-4.9); Lymphocytes Percent Auto 22.6 % (20-40); Mean Corpuscular HGB Conc 32.1 g/dl (31.0-35.0); Mean Corpuscular Volume 93.4 fL (80.0-98.0); Mean Platelet Volume 9.6 fL (9.4-12.3); Monocytes Absolute Auto 0.6 X10*3/uL (0.1-1.2); Monocytes Percent Auto 10.1 % (2-11); Neutrophils Absolute Auto 3.3 x10*3/uL (2.0-8.3); Neutrophils Percent Auto 57.4 % (45-73); Platelet Count 270 X10*3/uL (160-400); Red Blood Count 2.87 X10*6/uL (4.20-5.50); Red Cell Distribution Width 14.5 % (11.0-16.0); White Blood Count 5.7 X10*3/uL (4.8-10.8)
[2023-09-07 06:57] LABS: Anion Gap 9 (12-20); Blood Urea Nitrogen 17 mg/dL (9-16); Calcium 8.3 mg/dL (8.4-10.2); Carbon Dioxide 21 mmol/L (22-29); Chloride 116 mmol/L (96-108); Creatinine Clr Calc Pharmacy 43.5; Estimated Glomerular Filt Rate 54; Glucose Fasting 76 mg/dL (60-99); Potassium 3.6 mmol/L (3.3-5.1); Sodium 142 mmol/L (135-145)
[2023-09-07] MEDS: Fluticasone/Umeclidinium/Vilanterol 100/62.5/25 BLST.W.DEV 1 PUFF INHALE (07:40)
--- NOTE | 2023-09-07 07:56 | P.PNIM_ITS ---
Subjective Subjective Date of Service: 09/07/23 Interval History: seen and evaluated pain under fair control surgery planned for tomorrow Review of Systems Review of Systems: Yes all other systems are reviewed and are negative Physical Exam 2 Vital Signs: Vital Signs: Last Vital Signs Temp 97 F 09/07/23 03:13 Pulse 81 09/07/23 07:43 Resp 18 09/07/23 07:43 BP 130/65 09/07/23 03:13 Pulse Ox 98 09/07/23 03:13 O2 Del Method Room Air 09/07/23 03:13 BMI result Body Mass Index 26.1 Const: Other: Constitutional : Awake, interactive, not in distress Neck : Normal inspection, Supple Cardiovascular : RRR, no JVP, no lower extremity edema Respiratory : good bilateral air entry, no crackles, wheezes or rhonchi Gastrointestinal: soft, lax, Normal bowel sounds, Non tender Skin : Warm, Dry, LLE shorter and externally rotated Neurological : Alert & oriented x3, No focal deficit Objective Data Active Medications Acetaminophen (Acetaminophen 325 Mg Tablet) 975 mg PO Q6H PRN PRN Reason: mild pain, headache or fever Albuterol Sulfate (Albuterol Sulfate 90 Mcg 8 Gm Inhaler) 2 puff INHALE Q6H PRN PRN Reason: wheezing Atorvastatin Calcium (Atorvastatin Calcium 20 Mg Tablet) 20 mg PO DAILY [facility] Calcitonin [place] (Calcitonin,[place],Synth Nasal 3.7 Ml Bottle) 1 spray NOSTRIL-B DAILY [facility] Celecoxib (Celecoxib 100 Mg Capsule) 100 mg PO BID [facility] Last Admin: 09/06/23 21:53 Dose: 100 mg Documented By: LIMA Cyanocobalamin (Cyanocobalamin (Vitamin B-12) 1,000 Mcg Tablet) 1,000 mcg PO DAILY [facility] Docusate Sodium (Docusate Sodium 100 Mg Capsule) 100 mg PO BID [facility] Last Admin: 09/06/23 21:52 Dose: 100 mg Documented By: LIMA Fluticasone/Umeclidinium/Vilanterol (Fluticasone/Umeclidinium/Vilanterol 100/62.5/25 Blst.W.Dev) 1 puff INHALE RDAILY [facility] Last Admin: 09/07/23 07:40 Dose: 1 puff Documented By: DYLAN Hydroxyzine HCl (Hydroxyzine Hcl 50 Mg Tablet) 50 mg PO BID [facility] Last Admin: 09/06/23 21:53 Dose: 50 mg Documented By: LIMA Lactated Ringer's (Lr) 1,000 mls @ 75 mls/hr IVCONT .[id number] [facility] Last Infusion: 09/07/23 02:46 Dose: 75 mls/hr Documented By: LIMA Ketorolac Tromethamine (Ketorolac Tromethamine 15 Mg/Ml Vial) 15 mg IVPUSH Q6H PRN PRN Reason: Pain, Severe (Pain Scale 7-10) Last Admin: 09/07/23 01:50 Dose: 15 mg Documented By: LIMA Lisinopril (Lisinopril 2.5 Mg Tablet) 2.5 mg PO DAILY [facility]; Protocol Loratadine (Loratadine 10 Mg Tablet) 10 mg PO DAILY [facility] Multivitamins/Vitamin C (Multivitamin Tablet) 1 tab PO DAILY [facility] Ondansetron HCl (Ondansetron Hcl 4 Mg/2 Ml Vial) 4 mg IVPUSH Q8H PRN PRN Reason: Nausea and Vomiting Last Admin: 09/06/23 20:55 Dose: 4 mg Documented By: LIMA Oxycodone HCl (Oxycodone Hcl Immed Release 5 Mg Tablet) 5 mg PO Q4H PRN PRN Reason: Pain, Moderate(Pain Scale 4-6) Last Admin: 09/07/23 06:37 Dose: 5 mg Documented By: LOVE Sodium Chloride (0.9 % Sodium Chloride Flush 3 Ml Syringe) 3 ml IVFLUSH QSHIFT [facility] Last Admin: 09/07/23 07:16 Dose: Not Given Documented By: HENRIK Non-Admin Reason: IV Running Thiamine HCl (Thiamine Hcl 100 Mg Tablet) 100 mg PO DAILY [facility] Tizanidine HCl (Tizanidine Hcl 4 Mg Tablet) 4 mg PO Q6H PRN PRN Reason: muscle spasticity Last Admin: 09/06/23 21:52 Dose: 4 mg Documented By: LIMA Labs 09/07/23 06:22 09/07/23 06:22 Labs: Laboratory Results - last 24 hr 09/06/23 09/07/23 09/07/23 23:48 00:30 02:55 MCV 93.7 MCH 30.4 MCHC 32.5 RDW 14.6 Plt Count 299 D MPV 9.4 Immature Gran % (Auto) 1.2 H Neut % (Auto) 65.0 Lymph % (Auto) 17.2 L [place] % (Auto) 8.6 Eos % (Auto) 7.0 H Baso % (Auto) 1.0 Lymph # (Auto) 1.4 [place] # (Auto) 0.7 Eos # (Auto) 0.6 H Baso # (Auto) 0.1 Abs Immat Gran (auto) 0.10 H Absolute Neuts (auto) 5.4 Absolute Nucleated RBC 0.000 Nucleated RBC % (auto) 0.0 PT 12.9 INR 1.1 Anion Gap 13 Estim Creat Clear Calc 32.4 Estimated GFR 38 POC Glucose 98 Random Glucose 160 H Fasting Glucose Lactic Acid 2.3 H* Lactic Acid F/U @ 2Hr 1.1 Calcium 8.5 D Total Bilirubin 0.3 AST 17 ALT 8 Alkaline Phosphatase 117 Troponin I High Sens 3.5 Total Protein 5.3 L Albumin 3.0 L 09/07/23 06:22 MCV 93.4 MCH 30.0 MCHC 32.1 RDW 14.5 Plt Count 270 MPV 9.6 Immature Gran % (Auto) 1.7 H Neut % (Auto) 57.4 Lymph % (Auto) 22.6 [place] % (Auto) 10.1 Eos % (Auto) 7.2 H Baso % (Auto) 1.0 Lymph # (Auto) 1.3 [place] # (Auto) 0.6 Eos # (Auto) 0.4 Baso # (Auto) 0.1 Abs Immat Gran (auto) 0.10 H Absolute Neuts (auto) 3.3 Absolute Nucleated RBC 0.000 Nucleated RBC % (auto) 0.0 PT INR Anion Gap 9 L Estim Creat Clear Calc 43.5 Estimated GFR 54 POC Glucose Random Glucose Fasting Glucose 76 Lactic Acid Lactic Acid F/U @ 2Hr Calcium 8.3 L Total Bilirubin AST ALT Alkaline Phosphatase Troponin I High Sens Total Protein Albumin Assessment and Plan (1) Periprosthetic fracture around internal prosthetic left hip joint, initial encounter: Status: Acute Plan Pt is a 67-year-old female with a PMH significant for?asthma/COPD overlap syndrome, HTN, HLD, diet-controlled type 2 diabetes, peripheral neuropathy, and mood disorder who is a direct admission to the hospital from orthopedic office after found to have a left femur periprosthetic fracture. Hospitalist consult for medical management and preop clearance. Left femur periprosthetic fracture Surgery planned for Monday09/08/2023 No EKG changes, no signs of ACS The patient carries mild-moderate viola-operative cardiac risk can proceed with procedure with no extra testing needed at this point Asthma/COPD Not in acute exacerbation Continue home inhalers HTN Continue home meds, hold pre op Monitor BP Diet-controlled type 2 diabetes Diabetic diet Peripheral neuropathy Continue tizanidine HLD Continue statin Thank you for allowing us to participate in the care of this patient. Will continue to follow with you as needed Quality Stroke Does the patient have a stroke diagnosis?: No VTE Prior VTE?: No VTE Risk Level:: Medical - moderate - high VTE Device Contraindication: Treatment Not Indicated VTE Drug Contraindication: N/A - Med Ordered
[2023-09-07] MEDS: Multivitamin TABLET 1 TAB PO (08:24)
[2023-09-07] MEDS: Atorvastatin Calcium 20 MG TABLET PO (08:24)
[2023-09-07] MEDS: Calcitonin,Salmon,Synth Nasal 3.7 ML BOTTLE 1 SPRAY NOSTRIL-B (08:24)
[2023-09-07] MEDS: Thiamine HCL 100 MG TABLET PO (08:25)
[2023-09-07] MEDS: Cyanocobalamin (Vitamin B-12) 1,000 MCG TABLET 1000 MCG PO (08:25)
[2023-09-07] MEDS: Docusate Sodium 100 MG CAPSULE PO ×2 (08:25→19:45)
[2023-09-07] MEDS: Loratadine 10 MG TABLET PO (08:25)
[2023-09-07] MEDS: lisinopriL 2.5 MG TABLET PO (08:25)
[2023-09-07] MEDS: hydrOXYzine HCL 50 MG TABLET PO ×2 (08:25→19:43)
[2023-09-07] MEDS: Lactated Ringers 1,000 ML 75 ML IVCONT ×2 (08:30→23:31)
--- NOTE | 2023-09-07 09:38 | P.PNOP_ITS ---
Subjective Subjective Date of Service: 09/07/23 Interval history: LOS 1 left hip periprosthetic fx no overnight events has mild discomfort with getting in and out of bed to use commode denies cp, palpitations, SOB Physical Exam Vital Signs: Vital Signs: Last Vital Signs Temp 98.0 F 09/07/23 08:06 Pulse 83 09/07/23 08:06 Resp 12 09/07/23 08:06 BP 168/85 H 09/07/23 08:25 Pulse Ox 97 09/07/23 08:06 O2 Del Method Room Air 09/07/23 08:06 BMI result Body Mass Index 26.1 Const: General: cooperative and no acute distress Orientation/consciousness: patient oriented x3 Resp: Effort & Inspection: normal respiratory effort and able to speak in complete sentences Cardio: Peripheral pulses: Peripheral pulses 2+ throughout Neuro: General: patient oriented x3 Extrem: Other: incision clean dry and intact. [place] intact. No erythema or effusion. Calf supple nontender. Neurovascularly intact. Procedures Date of Service Date of Service: 09/07/23 Progress Note: A&P Assessment and plan (1) Periprosthetic fracture around internal prosthetic left hip joint, initial encounter: Status: Acute Assessment and Plan: [employer] NPO after midnight Time Spent With Patient Time: Total time managing care of this patient today ____ minutes. Quality Stroke Does the patient have a stroke diagnosis?: No VTE Prior VTE?: No VTE Risk Level:: Medical - moderate - high VTE Device Contraindication: Treatment Not Indicated VTE Drug Contraindication: N/A - Med Ordered
--- NOTE | 2023-09-07 13:52 | HO.WOUND ---
Wound Consult: Initial 67yr old?female admitted to [facility] [place] on 09/06/23 - See progress notes and H&P for detailed history.? Wound consult placed for redness to buttock.? Patient agreeable to assessment and photo documentation.? SAcrum Etiology: ??Present on Admission Measurements: cm x cm x cm Wound Bed: Drainage / Odor: Edges: ? Sherrie wound: ? No Induration, Fluctuance or Warmth noted Pain: Goals of Treatment: ? Recommendations: 1. Turn and Reposition every 2 hours and as needed for patient comfort.? Use pillows or wedges to support off loading positions. 2. Off Load all bony prominences with use of pillows and heel boots if needed.? Apply Preventative foams where needed. ? 3. Monitor for incontinence and moisture control, use barrier creams when needed for prevention and treatment. 4. Provide adequate and supplemental nutrition.? 5. Order or Continue low air loss mattress. 6. When applicable maintain blood glucose levels per Providers order. 7. Sacrum - Off Load Pressure - Cleanse with PH balance spray or wipes, pat dry. ?Apply Sacral foam dressing to protect from friction and moistures. Peel backa nd assess Q shift and Change every 3 days and PRN. Re-consult wound care Nurse for wound deterioration or wound changes.
--- NOTE | 2023-09-07 13:55 | HO.WOUND ---
Wound Consult: Initial 67yr old?[place] admitted [place] [facility] [place] - See progress notes and H&P for detailed history.? Wound consult placed for redness to buttock.? Patient agreeable to assessment and photo documentation.? SAcrum Etiology: ?MASD (Moisture Associated Skin Damage) Wound Bed: intact pink blanchable tissue Drainage / Odor: none Edges: ? attached Sherrie wound: ? Intact - No Induration, Fluctuance or Warmth noted Pain: tenderness reported over the coccyx Goals of Treatment: ? Foam to aid in pressure redistribution and protect from moisture and friction Recommendations: 1. Turn and Reposition every 2 hours and as needed for patient comfort.? Use pillows or wedges to support off loading positions. 2. Off Load all bony prominences with use of pillows and heel boots if needed.? Apply Preventative foams where needed. ? 3. Monitor for incontinence and moisture control, use barrier creams when needed for prevention and treatment. 4. Provide adequate and supplemental nutrition.? 5. Order or Continue low air loss mattress. 6. When applicable maintain blood glucose levels per Providers order. 7. Sacrum - Off Load Pressure - Cleanse with PH balance spray or wipes, pat dry. ?Apply Sacral foam dressing to protect from friction and moistures. Peel back and assess Q shift and Change every 3 days and PRN. Re-consult wound care Nurse for wound deterioration or wound changes.
[2023-09-07] MEDS: Heparin Sodium,Porcine 5,000 UNIT/ML VIAL 5000 UNIT SUBCUT (17:16)
[2023-09-07] MEDS: Acetaminophen 325 MG TABLET 975 MG PO (19:44)
[2023-09-07] MEDS: Morphine Sulfate 2 MG/ML CARTRIDGE IVPUSH (23:28)
[2023-09-07] MEDS: 0.9 % Sodium Chloride Flush 3 ML SYRINGE IVFLUSH (23:30)
[2023-09-08] VITALS (19 sets, daily range): BP systolic 158–206; BP diastolic 78–101; PULSE 75–95; RESP 16–22; TEMP 36.1–37.1; O2SAT 90–99
[2023-09-08] MEDS: oxyCODONE HCl Immed Release 5 MG TABLET PO (03:07)
[2023-09-08] MEDS: Morphine Sulfate 2 MG/ML CARTRIDGE IVPUSH ×2 (04:27→09:32)
[2023-09-08 06:18] LABS: MANUAL DIFF FLAG NO
[2023-09-08 06:25] LABS: Basophils Absolute Auto 0.1 X10*3/uL (0.0-0.2); Basophils Percent Auto 1.1 % (0-2); Eosinophils Absolute Auto 0.4 X10*3/uL (0.0-0.4); Eosinophils Percent Auto 5.4 % (0-4); Hematocrit 29.1 % (37.0-47.0); Hemoglobin 9.6 g/dl (12.0-16.0); Imm Gran Abs Auto 0.09 X10*3/uL (0.00-0.03); Imm Gran Pct Auto 1.1 % (0.0-0.4); Lymphocytes Absolute Auto 1.2 X10*3/uL (1.2-4.9); Mean Corpuscular Hemoglobin 30.2 pg (27.0-33.0); Mean Corpuscular Volume 91.5 fL (80.0-98.0); Mean Platelet Volume 9.3 fL (9.4-12.3); Monocytes Absolute Auto 0.7 X10*3/uL (0.1-1.2); Neutrophils Absolute Auto 5.4 x10*3/uL (2.0-8.3); Neutrophils Percent Auto 68.4 % (45-73); Platelet Count 339 X10*3/uL (160-400); Red Blood Count 3.18 X10*6/uL (4.20-5.50); Red Cell Distribution Width 14.7 % (11.0-16.0); White Blood Count 7.9 X10*3/uL (4.8-10.8)
[2023-09-08 06:38] LABS: Anion Gap 12 (12-20); Blood Urea Nitrogen 10 mg/dL (9-16); Calcium 8.3 mg/dL (8.4-10.2); Carbon Dioxide 21 mmol/L (22-29); Chloride 116 mmol/L (96-108); Creatinine Clr Calc Pharmacy 59.2; Estimated Glomerular Filt Rate > 60; Glucose Fasting 90 mg/dL (60-99); Potassium 3.6 mmol/L (3.3-5.1); Sodium 145 mmol/L (135-145)
[2023-09-08] MEDS: Atorvastatin Calcium 20 MG TABLET PO (07:28)
[2023-09-08] MEDS: hydrOXYzine HCL 50 MG TABLET PO ×2 (07:28→20:59)
[2023-09-08] MEDS: Cyanocobalamin (Vitamin B-12) 1,000 MCG TABLET 1000 MCG PO (07:28)
[2023-09-08] MEDS: Docusate Sodium 100 MG CAPSULE PO ×2 (07:28→20:59)
[2023-09-08] MEDS: Multivitamin TABLET 1 TAB PO (07:28)
[2023-09-08] MEDS: Thiamine HCL 100 MG TABLET PO (07:29)
[2023-09-08] MEDS: Loratadine 10 MG TABLET PO (07:29)
[2023-09-08] MEDS: Calcitonin,Salmon,Synth Nasal 3.7 ML BOTTLE 1 SPRAY NOSTRIL-B (07:29)
[2023-09-08] MEDS: lisinopriL 2.5 MG TABLET PO (07:29)
[2023-09-08] MEDS: Fluticasone/Umeclidinium/Vilanterol 100/62.5/25 BLST.W.DEV 1 PUFF INHALE (07:58)
[2023-09-08] MEDS: lisinopriL 10 MG TABLET PO (08:22)
--- NOTE | 2023-09-08 11:19 | P.PNIM_ITS ---
Subjective Subjective Date of Service: 09/08/23 Interval History: seen and evaluated pain under fair control surgery planned for this afternoon SBP elevated at 180 Review of Systems Review of Systems: Yes all other systems are reviewed and are negative Physical Exam 2 Vital Signs: Vital Signs: Last Vital Signs Temp 98.2 F 09/08/23 07:16 Pulse 88 09/08/23 07:58 Resp 16 09/08/23 07:58 BP 158/80 H 09/08/23 09:10 Pulse Ox 90 L 09/08/23 07:16 O2 Del Method Room Air 09/08/23 07:16 BMI result Body Mass Index 26.1 Const: Other: Constitutional : Awake, interactive, not in distress Neck : Normal inspection, Supple Cardiovascular : RRR, no JVP, no lower extremity edema Respiratory : good bilateral air entry, no crackles, wheezes or rhonchi Gastrointestinal: soft, lax, Normal bowel sounds, Non tender Skin : Warm, Dry, LLE shorter and externally rotated Neurological : Alert & oriented x3, No focal deficit Objective Data Active Medications Acetaminophen (Acetaminophen 325 Mg Tablet) 975 mg PO Q6H PRN PRN Reason: mild pain, headache or fever Last Admin: 09/07/23 19:44 Dose: 975 mg Documented By: DIANA Albuterol Sulfate (Albuterol Sulfate 90 Mcg 8 Gm Inhaler) 2 puff INHALE Q6H PRN PRN Reason: wheezing Atorvastatin Calcium (Atorvastatin Calcium 20 Mg Tablet) 20 mg PO DAILY [facility] Last Admin: 09/08/23 07:28 Dose: 20 mg Documented By: HENRIK Calcitonin [place] (Calcitonin,[place],Synth Nasal 3.7 Ml Bottle) 1 spray NOSTRIL-B DAILY [facility] Last Admin: 09/08/23 07:29 Dose: 1 spray Documented By: HENRIK Celecoxib (Celecoxib 100 Mg Capsule) 100 mg PO BID [facility] Last Admin: 09/06/23 21:53 Dose: 100 mg Documented By: LIMA Cyanocobalamin (Cyanocobalamin (Vitamin B-12) 1,000 Mcg Tablet) 1,000 mcg PO DAILY [facility] Last Admin: 09/08/23 07:28 Dose: 1,000 mcg Documented By: HENRIK Docusate Sodium (Docusate Sodium 100 Mg Capsule) 100 mg PO BID [facility] Last Admin: 09/08/23 07:28 Dose: 100 mg Documented By: HENRIK Fluticasone/Umeclidinium/Vilanterol (Fluticasone/Umeclidinium/Vilanterol 100/62.5/25 Blst.W.Dev) 1 puff INHALE RDAILY [facility] Last Admin: 09/08/23 07:58 Dose: 1 puff Documented By: CATARINA Heparin Sodium (Porcine) (Heparin Sodium,Porcine 5,000 Unit/Ml Vial) 5,000 unit SUBCUT Q8H [facility] Last Admin: 09/07/23 23:48 Dose: Not Given Documented By: DIANA Non-Admin Reason: Physician Held Med Hydroxyzine HCl (Hydroxyzine Hcl 50 Mg Tablet) 50 mg PO BID [facility] Last Admin: 09/08/23 07:28 Dose: 50 mg Documented By: HENRIK Lisinopril (Lisinopril 10 Mg Tablet) 10 mg PO DAILY [facility]; Protocol Last Admin: 09/08/23 08:22 Dose: 10 mg Documented By: HENRIK Loratadine (Loratadine 10 Mg Tablet) 10 mg PO DAILY [facility] Last Admin: 09/08/23 07:29 Dose: 10 mg Documented By: HENRIK Morphine Sulfate (Morphine Sulfate 2 Mg/Ml Cartridge) 2 mg IVPUSH Q4H PRN; Protocol PRN Reason: Pain, Severe (Pain Scale 7-10) Last Admin: 09/08/23 09:32 Dose: 2 mg Documented By: HENRIK Multivitamins/Vitamin C (Multivitamin Tablet) 1 tab PO DAILY [facility] Last Admin: 09/08/23 07:28 Dose: 1 tab Documented By: HENRIK Ondansetron HCl (Ondansetron Hcl 4 Mg/2 Ml Vial) 4 mg IVPUSH Q8H PRN PRN Reason: Nausea and Vomiting Last Admin: 09/06/23 20:55 Dose: 4 mg Documented By: LIMA Oxycodone HCl (Oxycodone Hcl Immed Release 5 Mg Tablet) 5 mg PO Q4H PRN PRN Reason: Pain, Moderate(Pain Scale 4-6) Last Admin: 09/08/23 03:07 Dose: 5 mg Documented By: DIANA Sodium Chloride (0.9 % Sodium Chloride Flush 3 Ml Syringe) 3 ml IVFLUSH QSHIFT [facility] Last Admin: 09/08/23 07:10 Dose: Not Given Documented By: HENRIK Non-Admin Reason: IV Running Thiamine HCl (Thiamine Hcl 100 Mg Tablet) 100 mg PO DAILY [facility] Last Admin: 09/08/23 07:29 Dose: 100 mg Documented By: HENRIK Tizanidine HCl (Tizanidine Hcl 4 Mg Tablet) 4 mg PO Q6H PRN PRN Reason: muscle spasticity Last Admin: 09/06/23 21:52 Dose: 4 mg Documented By: LIMA Labs 09/08/23 05:47 09/08/23 05:47 Labs: Laboratory Results - last 24 hr 09/08/23 09/08/23 05:47 08:45 MCV 91.5 MCH 30.2 MCHC 33.0 RDW 14.7 Plt Count 339 D MPV 9.3 L Immature Gran % (Auto) 1.1 H Neut % (Auto) 68.4 Lymph % (Auto) 15.0 L [place] % (Auto) 9.0 Eos % (Auto) 5.4 H Baso % (Auto) 1.1 Lymph # (Auto) 1.2 [place] # (Auto) 0.7 Eos # (Auto) 0.4 Baso # (Auto) 0.1 Abs Immat Gran (auto) 0.09 H Absolute Neuts (auto) 5.4 Absolute Nucleated RBC 0.000 Nucleated RBC % (auto) 0.0 Anion Gap 12 Estim Creat Clear Calc 59.2 Estimated GFR > 60 Fasting Glucose 90 Calcium 8.3 L Blood Type B Positive Antibody Screen NEGATIVE Microbiology Microbiology Results: Microbiology 09/07/23 00:30 Blood Culture - Preliminary Blood - Venous No growth after 24 hours. 09/07/23 00:30 Blood Culture - Preliminary Blood - Venous No growth after 24 hours. Assessment and Plan (1) Periprosthetic fracture around internal prosthetic left hip joint, initial encounter: Status: Acute (2) Elevated blood pressure reading with diagnosis of hypertension: Status: Acute Plan Pt is a 67-year-old female with a PMH significant for?asthma/COPD overlap syndrome, HTN, HLD, diet-controlled type 2 diabetes, peripheral neuropathy, and mood disorder who is a direct admission to the hospital from orthopedic office after found to have a left femur periprosthetic fracture. Hospitalist consult for medical management and preop clearance. Left femur periprosthetic fracture Surgery planned for this afternoon management per orthopedic team Elevated BP in HTN Increase Lisinopril to 10 mg Hydralazine 50 mg bid Monitor BP Asthma/COPD Not in acute exacerbation Continue home inhalers Diet-controlled type 2 diabetes Diabetic diet Peripheral neuropathy Continue tizanidine HLD Continue statin Thank you for allowing us to participate in the care of this patient. Will continue to follow with you as needed Quality Stroke Does the patient have a stroke diagnosis?: No VTE Prior VTE?: No VTE Risk Level:: Medical - moderate - high VTE Device Contraindication: Treatment Not Indicated VTE Drug Contraindication: N/A - Med Ordered
--- NOTE | 2023-09-08 12:09 | MHC.CM.PN ---
EMR REVIEWED. PLAN FOR OR TODAY. NOT MEDICALLY CLEARED. CM WILL CONTINUE TO FOLLOW.
[2023-09-08 12:32] LABS: Glucose, Whole Blood 97 mg/dL (60-115)
--- NOTE | 2023-09-08 13:18 | MHC.SHP ---
Pre-Procedural Eval Section A - 24 Hr Update-Section A only Date of Service: 09/08/23 The patient is an INPATIENT: Yes Changes since office visit: No Cold of Flu in the past 2 weeks, No New Medical Problems, No Changes in Medication and No Patient answered all questions The patient has been examined within 24 hours of the surgical procedure. The History & Physical has been completed within 30 days and I have reviewed it.: Yes Section B - Complete if H&P > 30 days Chief Complaint: L hip viola prosthetic fx Allergies: Allergies Allergy/AdvReac Type Severity Reaction Status Date / Time Sulfa (Sulfonamide Allergy Intermediate SWELLING Verified 09/06/23 10:13 Antibiotics) metformin AdvReac Intermediate diarrhea Verified 09/06/23 10:13 Plan I have reviewed the history and physical and performed a pertinent physical examination on my patient. No changes have occurred unless specified. Time Spent With Patient Time: Total time managing care of this patient today ____ minutes.
--- NOTE | 2023-09-08 14:02 | PC.NURSE ---
dr smith aware pts last dose of ozempic was 09/05 emergent case secondary to fx anesthesia aware emptied suction from wick 350ml yellow urine output
[2023-09-08] MEDS: ceFAZolin Sodium/Dextrose,Iso 2 GM/50 ML PIGGYBACK IV ×2 (14:35→21:01)
[2023-09-08] MEDS: Acetaminophen 1,000 MG/100 ML PIGGYBACK 400 MG IV ×2 (14:45→21:00)
--- NOTE | 2023-09-08 15:30 | HO.ANESPROP2 ---
HPI - Anesthesia Eval Consult details Narrative: 67 yo female patient. S/p Left THR 08/29/23. Now with Left hip viola- prosthetic fracture Anesthesia Pre-Procedure Meds Is the patient on any of the following meds?: GLP1/DPP4 (Last dose of semaglutide 09/06/23. Patient admitted urgently for repair of viola- prosthetic fracture.Will proceed with surgery with RSI with cricoid pressure ) If yes to any meds - educate patient: Pt education - increased risk of aspiration and/or euvolemic DKA PMFSH Active Problems Active Problems: All Active Problems (Updated 09/08/23 @ 13:10 by Constance Milton MD) Elevated blood pressure reading with diagnosis of hypertension (Acute) Periprosthetic fracture around internal prosthetic left hip joint, initial encounter (Acute) Status post total hip replacement, left (Acute) Bilateral sacroiliitis (Acute) Sacroiliitis (Acute) Sacroiliac joint pain (Acute) Bilateral hip joint arthritis (Acute) Osteoarthritis of left hip (Acute) Failed back syndrome (Acute) Spondylosis of lumbosacral spine with radiculopathy (Acute) Past Medical History Medical History Osteoarthritis (arthritis due to wear and tear of joints) Abdominal hernia Asthma Arthritis COVID-19 vaccine series completed Full dentures Arthritis of left hip Low back pain Liver cyst IDDM (insulin dependent diabetes mellitus) COPD (chronic obstructive pulmonary disease) Elevated cholesterol Family History Family history of problems with anesthesia: No Surgical History Surgical History (Updated 09/08/23 @ 15:39 by Constance Milton MD) History of total left hip arthroplasty Hx of gastric bypass Hx of ankle fusion Status post insertion of nerve stimulator Hx of colonoscopy Hx of carpal tunnel repair History of back surgery History of Problems with Anesthesia: No Social History Social History Household Members: Children Household Members Other:: 12 year old granddaughter Housing: House Are you a primary career manager to a significant other at home: Yes (granddaughter) Do you presently have visiting nurse or other home services: No Comment: pt rings appropriately Patient Tobacco Use Status: Former Tobacco user Tobacco use type: Cigarette Cigarettes Per Day: 60 Years Smoked: quit 15 years ago Second Hand Smoke Exposure: No Use of substances other than those prescribed or required for medical reasons: No Currently Displaying Signs/Symptoms of Drug Intoxication Withdrawal: No Have you been hit, kicked, punched, or otherwise hurt by someone within the past year? If so, by whom?: No Do you feel safe in your current relationship?: No Current Relationship Is there a partner from a previous relationship who is making you feel unsafe now?: No Are you made to feel afraid or neglected: No Yazidism Healthcare Practices: Mandaeism Are you DNR?: No Advance Directives: No Do you have a plan to hurt others: No Plan Recently lost weight without trying: No Nutrition Risks: No Nutritional Risk Patient : No : No Poor oral hygiene: No service: No Meds Allergies Allergy/AdvReac Type Severity Reaction Status Date / Time Sulfa (Sulfonamide Allergy Intermediate SWELLING Verified 09/06/23 10:13 Antibiotics) metformin AdvReac Intermediate diarrhea Verified 09/06/23 10:13 Active Medications: Current Medications Acetaminophen (Acetaminophen 325 Mg Tablet) 975 mg PO Q6H PRN PRN Reason: mild pain, headache or fever Last Admin: 09/07/23 19:44 Dose: 975 mg Albuterol Sulfate (Albuterol Sulfate 90 Mcg 8 Gm Inhaler) 2 puff INHALE Q6H PRN PRN Reason: wheezing Atorvastatin Calcium (Atorvastatin Calcium 20 Mg Tablet) 20 mg PO DAILY [facility] Last Admin: 09/08/23 07:28 Dose: 20 mg Calcitonin [place] (Calcitonin,[place],Synth Nasal 3.7 Ml Bottle) 1 spray NOSTRIL-B DAILY [facility] Last Admin: 09/08/23 07:29 Dose: 1 spray Celecoxib (Celecoxib 100 Mg Capsule) 100 mg PO BID [facility] Last Admin: 09/06/23 21:53 Dose: 100 mg Cyanocobalamin (Cyanocobalamin (Vitamin B-12) 1,000 Mcg Tablet) 1,000 mcg PO DAILY [facility] Last Admin: 09/08/23 07:28 Dose: 1,000 mcg Docusate Sodium (Docusate Sodium 100 Mg Capsule) 100 mg PO BID [facility] Last Admin: 09/08/23 07:28 Dose: 100 mg Fluticasone/Umeclidinium/Vilanterol (Fluticasone/Umeclidinium/Vilanterol 100/62.5/25 Blst.W.Dev) 1 puff INHALE RDAILY [facility] Last Admin: 09/08/23 07:58 Dose: 1 puff Heparin Sodium (Porcine) (Heparin Sodium,Porcine 5,000 Unit/Ml Vial) 5,000 unit SUBCUT Q8H [facility] Last Admin: 09/07/23 23:48 Dose: Not Given Hydroxyzine HCl (Hydroxyzine Hcl 50 Mg Tablet) 50 mg PO BID [facility] Last Admin: 09/08/23 07:28 Dose: 50 mg Lactated Ringer's (Lr) 1,000 mls @ 100 mls/hr IVCONT .Q10H [facility] Lisinopril (Lisinopril 10 Mg Tablet) 10 mg PO DAILY [facility]; Protocol Last Admin: 09/08/23 08:22 Dose: 10 mg Loratadine (Loratadine 10 Mg Tablet) 10 mg PO DAILY [facility] Last Admin: 09/08/23 07:29 Dose: 10 mg Morphine Sulfate (Morphine Sulfate 2 Mg/Ml Cartridge) 2 mg IVPUSH Q4H PRN; Protocol PRN Reason: Pain, Severe (Pain Scale 7-10) Last Admin: 09/08/23 09:32 Dose: 2 mg Multivitamins/Vitamin C (Multivitamin Tablet) 1 tab PO DAILY [facility] Last Admin: 09/08/23 07:28 Dose: 1 tab Ondansetron HCl (Ondansetron Hcl 4 Mg/2 Ml Vial) 4 mg IVPUSH Q8H PRN PRN Reason: Nausea and Vomiting Last Admin: 09/06/23 20:55 Dose: 4 mg Oxycodone HCl (Oxycodone Hcl Immed Release 5 Mg Tablet) 5 mg PO Q4H PRN PRN Reason: Pain, Moderate(Pain Scale 4-6) Last Admin: 09/08/23 03:07 Dose: 5 mg Sodium Chloride (0.9 % Sodium Chloride Flush 3 Ml Syringe) 3 ml IVFLUSH QSHIFT [facility] Last Admin: 09/08/23 07:10 Dose: Not Given Thiamine HCl (Thiamine Hcl 100 Mg Tablet) 100 mg PO DAILY [facility] Last Admin: 09/08/23 07:29 Dose: 100 mg Tizanidine HCl (Tizanidine Hcl 4 Mg Tablet) 4 mg PO Q6H PRN PRN Reason: muscle spasticity Last Admin: 09/06/23 21:52 Dose: 4 mg Home Medications ?Medication ?Instructions ?Recorded ?Confirmed ?Last Taken ?Type thiamine HCl (vitamin B1) 100 mg 100 mg PO DAILY 04/29/20 09/06/23 09/06/23 06:00 History tablet albuterol sulfate 90 mcg/actuation 2 puff inhalation Q6H PRN wheezing 11/16/20 09/06/23 09/06/23 06:00 History aerosol inhaler (Ventolin HFA) atorvastatin 20 mg tablet 20 mg PO DAILY 11/16/20 09/06/23 09/06/23 06:00 History doeqgvxbvvdt-sjabwjna-mwxg 1 tab PO DAILY 03/10/22 09/06/23 09/06/23 06:00 History fumarate 7.5 mg-folic acid 400 mcg tablet nystatin 100,000 unit/gram topical 1 appl topical DAILY PRN Rash 05/18/22 09/06/23 09/06/23 06:00 History powder semaglutide 2 mg/dose (8 mg/3 mL) 2 mg subcut WE@0900 06/06/22 09/06/23 09/06/23 06:00 History subcutaneous pen injector (Ozempic) lisinopril 2.5 mg tablet 2.5 mg PO DAILY 08/01/23 09/06/23 09/06/23 06:00 History fluticasone fur. 100 mcg-umeclid 1 ea inhalation DAILY 08/22/23 09/06/23 09/06/23 06:00 History 62.5 mcg-vilant 25 mcg inhalat.powder (Trelegy Ellipta) hydroxyzine HCl 50 mg tablet 50 mg PO BID 08/22/23 09/06/23 09/06/23 06:00 History tizanidine 2 mg tablet 4 mg PO Q6H PRN muscle spasticity 08/22/23 09/06/23 09/06/23 06:00 History B-complex with vitamin C 1 tab PO DAILY 08/29/23 09/06/23 09/06/23 06:00 History celecoxib 100 mg capsule 100 mg PO BID 08/29/23 09/06/23 09/06/23 06:00 History cetirizine 10 mg tablet 10 mg PO DAILY 08/29/23 09/06/23 09/06/23 06:00 History cholecalciferol (vitamin D3) 25 25 mcg DAILY 08/29/23 09/06/23 09/06/23 06:00 History mcg (1,000 unit) tablet cyanocobalamin (vitamin B-12) 1,000 mcg PO DAILY 08/29/23 09/06/23 09/06/23 06:00 History 1,000 mcg tablet aspirin 325 mg tablet 325 mg PO DAILY 09/06/23 09/06/23 09/06/23 06:00 History calcitonin (salmon) 200 1 spray intranasal DAILY 09/06/23 09/06/23 09/06/23 06:00 History unit/actuation nasal spray diclofenac sodium 1 % topical gel 1 g topical BID 09/06/23 09/06/23 09/06/23 06:00 History Exam Height,Weight and Vital Signs: Height 5 ft Weight 60.7 kg Last Vital Signs Temp 97.6 F 09/08/23 12:34 Pulse 91 09/08/23 12:34 Resp 18 09/08/23 12:34 BP 186/88 H 09/08/23 12:34 Pulse Ox 94 09/08/23 12:34 O2 Del Method Room Air 09/08/23 12:34 Pertinent Lab Results Pertinent Lab Results: Laboratory Tests 09/06/23 09/07/23 09/07/23 23:48 00:30 02:55 WBC 8.2 RBC 2.86 L Hgb 8.7 L Hct 26.8 L MCV 93.7 MCH 30.4 MCHC 32.5 RDW 14.6 Plt Count 299 D MPV 9.4 Immature Gran % (Auto) 1.2 H Neut % (Auto) 65.0 Lymph % (Auto) 17.2 L [place] % (Auto) 8.6 Eos % (Auto) 7.0 H Baso % (Auto) 1.0 Lymph # (Auto) 1.4 [place] # (Auto) 0.7 Eos # (Auto) 0.6 H Baso # (Auto) 0.1 Abs Immat Gran (auto) 0.10 H Absolute Neuts (auto) 5.4 Absolute Nucleated RBC 0.000 Nucleated RBC % (auto) 0.0 PT 12.9 INR 1.1 Sodium 141 Potassium 4.0 Chloride 113 H Carbon Dioxide 19 L Anion Gap 13 BUN 19 H Creatinine 1.37 Estim Creat Clear Calc 32.4 Estimated GFR 38 POC Glucose 98 Random Glucose 160 H Fasting Glucose Lactic Acid 2.3 H* Lactic Acid F/U @ 2Hr 1.1 Calcium 8.5 D Total Bilirubin 0.3 AST 17 ALT 8 Alkaline Phosphatase 117 Troponin I High Sens 3.5 Total Protein 5.3 L Albumin 3.0 L Blood Type Antibody Screen 09/07/23 09/08/23 09/08/23 06:22 05:47 08:45 WBC 5.7 7.9 RBC 2.87 L 3.18 L Hgb 8.6 L 9.6 L Hct 26.8 L 29.1 L MCV 93.4 91.5 MCH 30.0 30.2 MCHC 32.1 33.0 RDW 14.5 14.7 Plt Count 270 339 D MPV 9.6 9.3 L Immature Gran % (Auto) 1.7 H 1.1 H Neut % (Auto) 57.4 68.4 Lymph % (Auto) 22.6 15.0 L [place] % (Auto) 10.1 9.0 Eos % (Auto) 7.2 H 5.4 H Baso % (Auto) 1.0 1.1 Lymph # (Auto) 1.3 1.2 [place] # (Auto) 0.6 0.7 Eos # (Auto) 0.4 0.4 Baso # (Auto) 0.1 0.1 Abs Immat Gran (auto) 0.10 H 0.09 H Absolute Neuts (auto) 3.3 5.4 Absolute Nucleated RBC 0.000 0.000 Nucleated RBC % (auto) 0.0 0.0 PT INR Sodium 142 145 Potassium 3.6 3.6 Chloride 116 H 116 H Carbon Dioxide 21 L 21 L Anion Gap 9 L 12 BUN 17 H 10 Creatinine 1.02 0.75 Estim Creat Clear Calc 43.5 59.2 Estimated GFR 54 > 60 POC Glucose Random Glucose Fasting Glucose 76 90 Lactic Acid Lactic Acid F/U @ 2Hr Calcium 8.3 L 8.3 L Total Bilirubin AST ALT Alkaline Phosphatase Troponin I High Sens Total Protein Albumin Blood Type B Positive Antibody Screen NEGATIVE 09/08/23 12:29 WBC RBC Hgb Hct MCV MCH MCHC RDW Plt Count MPV Immature Gran % (Auto) Neut % (Auto) Lymph % (Auto) [place] % (Auto) Eos % (Auto) Baso % (Auto) Lymph # (Auto) [place] # (Auto) Eos # (Auto) Baso # (Auto) Abs Immat Gran (auto) Absolute Neuts (auto) Absolute Nucleated RBC Nucleated RBC % (auto) PT INR Sodium Potassium Chloride Carbon Dioxide Anion Gap BUN Creatinine Estim Creat Clear Calc Estimated GFR POC Glucose 97 Random Glucose Fasting Glucose Lactic Acid Lactic Acid F/U @ 2Hr Calcium Total Bilirubin AST ALT Alkaline Phosphatase Troponin I High Sens Total Protein Albumin Blood Type Antibody Screen Airway Mallampati Class: II TM Dist: >3cm Neck ROM: Full Loose/Missing/Broken Teeth: Yes (Edentulous) Heart: RRR Lungs: CTAB Assessment and Plan Assessment Anesthesia Assessment: Anesthesia Plan Discussed and Chart Reviewed Final Anesthetic Review Family History of Problems with Anesthesia: No History of Problems with Anesthesia: No NPO: Yes ASA Class: III and Emergency Final Preanesthetic Review: No Changes in Pt Med Stat, Meds/Allgs Chart Reviewed, Consent Obtained/Reviewed and Anes Risks/Benef Reviewed Patient Risk: Intermediate Procedure Risk: Intermediate Assessment/Block/Sedation in SS: Assess/Block/Sedation-SS Anesthetic Plan Anesthetic Plan: GA Disposition: Standard PACU and Inp. Admit - Standard Bed
--- NOTE | 2023-09-08 17:01 | P.BOP_ITS ---
Brief Operative Note Date of Service: 09/08/23 Pre-op diagnosis: left periprosthetic fracture Post-op diagnosis: same Procedure: Left hip revision arthroplasty with internal fixation greater trochanter Implants: Viewster Modular Tenriism: Conical distal stem [id number] Proximal cone body 19 + 0 ( STD) 36/-5 cermic head Greater troch talent development consultant plate 100 with 2 2.0mm cables 2.0 mm beaded cerlge cable x 1 Surgeon: Fernie Ruiz MD Was an Implementation Services Analyst used for this Procedure?: No Estimated blood loss (mL): 200 IV fluids (mL): 1,200 Pathology: none sent Condition: stable Disposition: PACU
[2023-09-08] MEDS: HYDROmorphone HCl 0.5 MG/0.5 ML SYRINGE 0.25 MG IVPUSH ×5 (17:08→23:57)
[2023-09-08] MEDS: oxyCODONE HCl ER 10 MG TAB.ER.12H PO (20:59)
[2023-09-08] MEDS: Celecoxib 100 MG CAPSULE PO (20:59)
[2023-09-09] VITALS (11 sets, daily range): BP systolic 141–196; BP diastolic 70–83; PULSE 80–116; RESP 16–18; TEMP 36.4–37.8; O2SAT 92–96
[2023-09-09] MEDS: Acetaminophen 1,000 MG/100 ML PIGGYBACK 400 MG IV ×3 (03:19→15:18)
[2023-09-09 06:31] LABS: MANUAL DIFF FLAG NO
[2023-09-09 06:43] LABS: Basophils Absolute Auto 0.1 X10*3/uL (0.0-0.2); Basophils Percent Auto 0.4 % (0-2); Eosinophils Percent Auto 0.1 % (0-4); Hematocrit 26.7 % (37.0-47.0); Hemoglobin 8.8 g/dl (12.0-16.0); Imm Gran Abs Auto 0.12 X10*3/uL (0.00-0.03); Imm Gran Pct Auto 1.1 % (0.0-0.4); Lymphocytes Absolute Auto 1.1 X10*3/uL (1.2-4.9); Lymphocytes Percent Auto 9.2 % (20-40); Mean Corpuscular Hemoglobin 30.6 pg (27.0-33.0); Mean Corpuscular Volume 92.7 fL (80.0-98.0); Mean Platelet Volume 9.4 fL (9.4-12.3); Monocytes Absolute Auto 1.1 X10*3/uL (0.1-1.2); Monocytes Percent Auto 9.9 % (2-11); Neutrophils Percent Auto 79.3 % (45-73); Platelet Count 407 X10*3/uL (160-400); Red Blood Count 2.88 X10*6/uL (4.20-5.50); Red Cell Distribution Width 14.6 % (11.0-16.0); White Blood Count 11.4 X10*3/uL (4.8-10.8)
[2023-09-09 06:53] LABS: Anion Gap 11 (12-20); Blood Urea Nitrogen 15 mg/dL (9-16); Calcium 8.3 mg/dL (8.4-10.2); Carbon Dioxide 24 mmol/L (22-29); Chloride 113 mmol/L (96-108); Creatinine Clr Calc Pharmacy 55.5; Estimated Glomerular Filt Rate > 60; Glucose Fasting 143 mg/dL (60-99); Sodium 144 mmol/L (135-145)
[2023-09-09] MEDS: Fluticasone/Umeclidinium/Vilanterol 100/62.5/25 BLST.W.DEV 1 PUFF INHALE (07:29)
[2023-09-09] MEDS: HYDROmorphone HCl 0.5 MG/0.5 ML SYRINGE 0.25 MG IVPUSH (08:02)
[2023-09-09] MEDS: Atorvastatin Calcium 20 MG TABLET PO (08:06)
[2023-09-09] MEDS: Multivitamin TABLET 1 TAB PO (08:06)
[2023-09-09] MEDS: Loratadine 10 MG TABLET PO (08:06)
[2023-09-09] MEDS: Celecoxib 100 MG CAPSULE PO (08:06)
[2023-09-09] MEDS: Docusate Sodium 100 MG CAPSULE PO ×2 (08:06→21:13)
[2023-09-09] MEDS: hydrOXYzine HCL 50 MG TABLET PO ×2 (08:06→21:20)
[2023-09-09] MEDS: oxyCODONE HCl ER 10 MG TAB.ER.12H PO ×2 (08:06→21:13)
[2023-09-09] MEDS: lisinopriL 10 MG TABLET PO (08:06)
[2023-09-09] MEDS: Thiamine HCL 100 MG TABLET PO (08:07)
[2023-09-09] MEDS: Calcitonin,Salmon,Synth Nasal 3.7 ML BOTTLE 1 SPRAY NOSTRIL-B (08:07)
[2023-09-09] MEDS: 0.9 % Sodium Chloride Flush 3 ML SYRINGE IVFLUSH ×3 (08:07→21:18)
[2023-09-09] MEDS: Cyanocobalamin (Vitamin B-12) 1,000 MCG TABLET 1000 MCG PO (08:07)
[2023-09-09] MEDS: oxyCODONE HCl Immed Release 5 MG TABLET 10 MG PO ×2 (08:58→15:40)
--- NOTE | 2023-09-09 10:19 | HO.POSTANES ---
Post Anesthesia Evaluation Post Anesthesia Evaluation Date of Service: 09/08/23 Vital Signs: Vital Signs Temp Pulse Resp BP Pulse Ox O2 Del Method 09/09/23 09:50 168/74 H 09/09/23 08:06 196/80 H 09/09/23 07:29 89 18 09/09/23 07:23 100.0 F 89 18 196/80 H 95 Room Air 09/09/23 03:58 97.7 F 96 16 148/74 H 92 Room Air 09/09/23 01:20 16 09/08/23 23:58 172/78 H 09/08/23 23:50 98.8 F 95 16 188/99 H 93 Room Air Anesthesia: General Mental Status: Awake Pain Control: Satisfactory Nausea/Vomiting: None Hydration: Adequate Anesthesia-Related Issues: No Anes. Related Issues
--- NOTE | 2023-09-09 12:37 | P.PNOP_ITS ---
Subjective Subjective Date of Service: 09/09/23 Interval history: POD 1 s/p Revision LT CHINYERE periprosthetic fx no overnight events resting in chair, states she tolerated OOB but had some inc pain denies sob, palpitations, dizziness, cp Physical Exam Vital Signs: Vital Signs: Last Vital Signs Temp 97.9 F 09/09/23 11:54 Pulse 101 H 09/09/23 11:54 Resp 18 09/09/23 11:54 BP 162/70 H 09/09/23 11:54 Pulse Ox 96 09/09/23 11:54 O2 Del Method Room Air 09/09/23 11:54 O2 Flow Rate 2 09/08/23 17:48 BMI result Body Mass Index 26.1 Const: General: cooperative, healthy appearing and no acute distress Resp: Effort & Inspection: normal respiratory effort and able to speak in complete sentences Cardio: Rate: regular rate Peripheral pulses: Peripheral pulses 2+ througho ut GI: Palpation (GI): Soft to palpation Skin: General skin exam: no rashes or lesions noted Extrem: Other: bandage clean dry and intact. Taft intact. No erythema or effusion. Calf supple nontender. Neurovascularly intact. Procedures Date of Service Date of Service: 09/09/23 Progress Note: A&P Assessment and plan (1) Periprosthetic fracture around internal prosthetic left hip joint, initial encounter: Status: Acute Assessment and Plan: * Continue pain mgmnt * Begin lovenox for dvt ppx * begin PT/OT for Revision LT CHINYERE post precautions-TTWB w walker * Dispo planning-Pending PT eval, pain mgmnt Need for continued inpatient stay: pain mgmnt . PT Time Spent With Patient Time: Total time managing care of this patient today ____ minutes. Quality Stroke Does the patient have a stroke diagnosis?: No VTE Prior VTE?: No VTE Risk Level:: Medical - moderate - high VTE Device Contraindication: Treatment Not Indicated VTE Drug Contraindication: N/A - Med Ordered
--- NOTE | 2023-09-09 12:47 | P.PNIM_ITS ---
Subjective Subjective Date of Service: 09/09/23 Interval History: Seen and examined this morning Follow-up for medical consultation Status post left hip revision arthroplasty with internal fixation greater trochanter Reporting pain left leg Denies headache, chest pain, shortness of breath Physical Exam 2 Vital Signs: Vital Signs: Last Vital Signs Temp 97.9 F 09/09/23 11:54 Pulse 101 H 09/09/23 11:54 Resp 18 09/09/23 11:54 BP 162/70 H 09/09/23 11:54 Pulse Ox 96 09/09/23 11:54 O2 Del Method Room Air 09/09/23 11:54 O2 Flow Rate 2 09/08/23 17:48 BMI result Body Mass Index 26.1 Const: General: cooperative, comfortable, no acute distress, alert and awake Nutritional Appearance: average body habitus Orientation/consciousness: p atient oriented x3 Resp: Effort & Inspection: normal respiratory effort, able to speak in complete sentences, no respiratory distress and no use of accessory muscles Cardio: Rate: regular rate GI: Inspection: No distended Palpation (GI): Soft to palpation and nontender Skin: Other: left hip bandage clean and dry Neuro: General: patient oriented x3, moves all extremities and CN's II-XI intact bilaterally Extrem: General: Yes no pedal edema Objective Data Active Medications Albuterol Sulfate (Albuterol Sulfate 90 Mcg 8 Gm Inhaler) 2 puff INHALE Q6H PRN PRN Reason: wheezing Atorvastatin Calcium (Atorvastatin Calcium 20 Mg Tablet) 20 mg PO DAILY [facility] [place] Last Admin: 09/09/23 08:06 Dose: 20 mg Documented By: SYMONE Calcitonin [place] (Calcitonin,[place],Synth Nasal 3.7 Ml Bottle) 1 spray NOSTRIL-B DAILY [facility] Last Admin: 09/09/23 08:07 Dose: 1 spray Documented By: SYMONE Cyanocobalamin (Cyanocobalamin (Vitamin B-12) 1,000 Mcg Tablet) 1,000 mcg PO DAILY [facility] [place] Last Admin: 09/09/23 08:07 Dose: 1,000 mcg Documented By: SYMONE Docusate Sodium (Docusate Sodium 100 Mg Capsule) 100 mg PO BID [facility] [place] Last Admin: 09/09/23 08:06 Dose: 100 mg Documented By: SYMONE Enoxaparin Sodium (Enoxaparin Sodium 40 Mg/0.4 Ml Syringe) 40 mg SUBCUT Q24H [facility] [place] Fluticasone/Umeclidinium/Vilanterol (Fluticasone/Umeclidinium/Vilanterol 100/62.5/25 Blst.W.Dev) 1 puff INHALE RDAILY [facility] [place] Last Admin: 09/09/23 07:29 Dose: 1 puff Documented By: ESTELA Hydromorphone HCl (Hydromorphone Hcl 0.5 Mg/0.5 Ml Syringe) 0.5 mg IVPUSH Q3H PRN; Protocol PRN Reason: Pain, Severe (Pain Scale 7-10) Hydroxyzine HCl (Hydroxyzine Hcl 50 Mg Tablet) 50 mg PO BID [facility] Last Admin: 09/09/23 08:06 Dose: 50 mg Documented By: SYMONE Acetaminophen (irmev) 1,000 mg in 100 mls @ 400 mls/hr IV Q6H [facility] [place] Stop: 09/09/23 15:14 Last Infusion: 09/09/23 08:56 Dose: Infused Documented By: SYMONE Lisinopril (Lisinopril 10 Mg Tablet) 10 mg PO DAILY [facility]; Protocol Last Admin: 09/09/23 08:06 Dose: 10 mg Documented By: SYMONE Loratadine (Loratadine 10 Mg Tablet) 10 mg PO DAILY [facility] [place] Last Admin: 09/09/23 08:06 Dose: 10 mg Documented By: SYMONE Multivitamins/Vitamin C (Multivitamin Tablet) 1 tab PO DAILY [facility] Last Admin: 09/09/23 08:06 Dose: 1 tab Documented By: SYMONE Ondansetron HCl (Ondansetron Hcl 4 Mg/2 Ml Vial) 4 mg IVPUSH Q8H PRN PRN Reason: Nausea and Vomiting Last Admin: 09/06/23 20:55 Dose: 4 mg Documented By: LIMA Oxycodone HCl (Oxycodone Hcl Er 10 Mg Tab.Er.12h) 10 mg PO BID [facility] Last Admin: 09/09/23 08:06 Dose: 10 mg Documented By: SYMONE Oxycodone HCl (Oxycodone Hcl Immed Release 5 Mg Tablet) 10 mg PO Q4H PRN PRN Reason: Pain, Moderate(Pain Scale 4-6) Last Admin: 09/09/23 08:58 Dose: 10 mg Documented By: SYMONE Sodium Chloride (0.9 % Sodium Chloride Flush 3 Ml Syringe) 3 ml IVFLUSH QSHIFT [facility] [place] Last Admin: 09/09/23 08:07 Dose: 3 ml Documented By: SYMONE Thiamine HCl (Thiamine Hcl 100 Mg Tablet) 100 mg PO DAILY [facility] Last Admin: 09/09/23 08:07 Dose: 100 mg Documented By: SYMONE Tizanidine HCl (Tizanidine Hcl 4 Mg Tablet) 4 mg PO Q6H PRN PRN Reason: muscle spasticity Last Admin: 09/06/23 21:52 Dose: 4 mg Documented By: SIMONASY Labs 09/09/23 06:05 09/09/23 06:05 Labs: Laboratory Results - last 24 hr 09/09/23 06:05 MCV 92.7 MCH 30.6 MCHC 33.0 RDW 14.6 Plt Count 407 H MPV 9.4 Immature Gran % (Auto) 1.1 H Neut % (Auto) 79.3 H Lymph % (Auto) 9.2 L [place] % (Auto) 9.9 Eos % (Auto) 0.1 Baso % (Auto) 0.4 Lymph # (Auto) 1.1 L [place] # (Auto) 1.1 Eos # (Auto) 0.0 Baso # (Auto) 0.1 Abs Immat Gran (auto) 0.12 H Absolute Neuts (auto) 9.0 H Absolute Nucleated RBC 0.000 Nucleated RBC % (auto) 0.0 Anion Gap 11 L Estim Creat Clear Calc 55.5 Estimated GFR > 60 Fasting Glucose 143 H Calcium 8.3 L Microbiology Microbiology Results: Microbiology 09/07/23 00:30 Blood Culture - Preliminary Blood - Venous No growth after 48 hours. 09/07/23 00:30 Blood Culture - Preliminary Blood - Venous No growth after 48 hours. Assessment and Plan (1) Elevated blood pressure reading with diagnosis of hypertension: Status: Acute (2) Periprosthetic fracture around internal prosthetic left hip joint, initial encounter: Status: Acute Plan Pt is a 67-year-old female with a PMH significant for?asthma/COPD overlap syndrome, HTN, HLD, diet-controlled type 2 diabetes, peripheral neuropathy, and mood disorder who is a direct admission to the hospital from orthopedic office after found to have a left femur periprosthetic fracture. Hospitalist consult for medical management and preop clearance. Left femur periprosthetic fracture POD 1 s/p left total hip arthroplasty periprosthetic fracture management per orthopedic team Elevated BP in HTN Increase Lisinopril to 10 mg Pain playing a role If blood pressure remains elevated can add low-dose Norvasc and titrate as needed Asthma/COPD Not in acute exacerbation Continue home inhalers Diet-controlled type 2 diabetes Diabetic diet Peripheral neuropathy Continue tizanidine HLD Continue statin Thank you for allowing us to participate in the care of this patient. Will continue to follow with you as needed Quality Stroke Does the patient have a stroke diagnosis?: No VTE Prior VTE?: No VTE Risk Level:: Medical - moderate - high VTE Device Contraindication: Treatment Not Indicated VTE Drug Contraindication: N/A - Med Ordered
[2023-09-09] MEDS: HYDROmorphone HCl 0.5 MG/0.5 ML SYRINGE IVPUSH ×3 (12:48→23:42)
[2023-09-09] MEDS: Enoxaparin Sodium 40 MG/0.4 ML SYRINGE SUBCUT (15:18)
[2023-09-10] VITALS (8 sets, daily range): BP systolic 140–178; BP diastolic 68–78; PULSE 87–110; RESP 16–18; TEMP 36.2–37.4; O2SAT 92–97
[2023-09-10] MEDS: HYDROmorphone HCl 0.5 MG/0.5 ML SYRINGE IVPUSH ×4 (04:01→22:41)
[2023-09-10] MEDS: Fluticasone/Umeclidinium/Vilanterol 100/62.5/25 BLST.W.DEV 1 PUFF INHALE (07:48)
[2023-09-10] MEDS: Calcitonin,Salmon,Synth Nasal 3.7 ML BOTTLE 1 SPRAY NOSTRIL-B (07:58)
[2023-09-10] MEDS: hydrOXYzine HCL 50 MG TABLET PO ×2 (08:01→20:17)
[2023-09-10] MEDS: Atorvastatin Calcium 20 MG TABLET PO (08:01)
[2023-09-10] MEDS: lisinopriL 10 MG TABLET PO (08:01)
[2023-09-10] MEDS: Thiamine HCL 100 MG TABLET PO (08:01)
[2023-09-10] MEDS: Multivitamin TABLET 1 TAB PO (08:01)
[2023-09-10] MEDS: oxyCODONE HCl ER 10 MG TAB.ER.12H PO ×2 (08:01→20:17)
[2023-09-10] MEDS: Loratadine 10 MG TABLET PO (08:01)
[2023-09-10] MEDS: Docusate Sodium 100 MG CAPSULE PO ×2 (08:01→20:17)
[2023-09-10] MEDS: Cyanocobalamin (Vitamin B-12) 1,000 MCG TABLET 1000 MCG PO (08:01)
[2023-09-10] MEDS: 0.9 % Sodium Chloride Flush 3 ML SYRINGE IVFLUSH ×3 (08:02→20:19)
[2023-09-10 08:07] LABS: MANUAL DIFF FLAG NO
[2023-09-10 08:13] LABS: Basophils Absolute Auto 0.1 X10*3/uL (0.0-0.2); Basophils Percent Auto 0.8 % (0-2); Eosinophils Absolute Auto 0.6 X10*3/uL (0.0-0.4); Eosinophils Percent Auto 3.8 % (0-4); Hematocrit 29.1 % (37.0-47.0); Hemoglobin 9.3 g/dl (12.0-16.0); Imm Gran Abs Auto 0.14 X10*3/uL (0.00-0.03); Imm Gran Pct Auto 0.9 % (0.0-0.4); Lymphocytes Absolute Auto 1.9 X10*3/uL (1.2-4.9); Lymphocytes Percent Auto 12.9 % (20-40); Mean Corpuscular Hemoglobin 29.8 pg (27.0-33.0); Mean Corpuscular Volume 93.3 fL (80.0-98.0); Mean Platelet Volume 9.1 fL (9.4-12.3); Monocytes Absolute Auto 1.1 X10*3/uL (0.1-1.2); Monocytes Percent Auto 7.3 % (2-11); Neutrophils Percent Auto 74.3 % (45-73); Platelet Count 472 X10*3/uL (160-400); Red Blood Count 3.12 X10*6/uL (4.20-5.50); Red Cell Distribution Width 14.9 % (11.0-16.0); White Blood Count 14.8 X10*3/uL (4.8-10.8)
[2023-09-10 08:31] LABS: Anion Gap 14 (12-20); Blood Urea Nitrogen 10 mg/dL (9-16); Carbon Dioxide 24 mmol/L (22-29); Chloride 111 mmol/L (96-108); Estimated Glomerular Filt Rate > 60; Glucose Fasting 117 mg/dL (60-99); Potassium 4.4 mmol/L (3.3-5.1); Sodium 145 mmol/L (135-145)
--- NOTE | 2023-09-10 09:48 | P.OP_ITS ---
Operative Note Operative Note Date of Service: 09/08/23 Narrative: Date of Service: 09/08/23 Pre-op diagnosis: left periprosthetic fracture Post-op diagnosis: same Procedure: Left hip revision arthroplasty with internal fixation greater trochanter Implants: Dia Modular Yazidism: Conical distal stem [id number] Proximal cone body 19 + 0 ( STD) 36/-5 cermic head Greater troch tableau report developer plate 100 with 2 2.0mm cables 2.0 mm beaded cerlge cable x 1 Surgeon: Fernie Ruiz MD Was an Computer Hardware Designer used for this Procedure?: No Estimated blood loss (mL): 200 IV fluids (mL): 1,200 Pathology: none sent Condition: stable Disposition: PACU Procedure in detail: Patient was brought into the operating room and placed in the right lateral decubitus position. All bony prominences were well padded and the limb was prepped and draped in standard sterile fashion. A time-out was called to identi fy proper site procedure proper surgeon IV antibiotics and 1 g of transaxemic acid were administered. I began by making a curvilinear incision over the posterolateral aspect of the greater trochanter. Dissection was taken down to the tensor fascia which was incised in line with the incision and a Charnley retractor was placed. Cautery was used to maintain hemostasis. The hip was internally rotated and the prior capsular repair was identified and openined. Prior suture was removed and the head was dislocated. The stem had subsided and was unstable. The head was removed and I placed the femoral extractor and brought it up to the clacar. I made an incision distally to expose the femur and cut the gluteal sling at its insertion. I then placed two 2.0 cerclage wires aroung the femur just distal to the lesser. These were tightened but not crimped and the stem was removed. There was also a fracture of the greater trocuanter proximal to the calcar. I then reamed to a 17 at +10 from the tip of the greater and placed a conical 17 stem. I then reamed up to a 21 and trialed different bodiea. Finally i decided on a 19 as the others were tight. I then placed the modular cone body and sucured this in place with the proximal screw. I then triated different head and, ultimately I was satisfied with the -5. This was palced and the hip reduced. I then turned my attention to the troachanter. Using a 100 mm troch plate I applied this and distally, just distal to the lesser, I placed a cerclage through the plate. While applied distal force on the plate to secure it to the troch I tightened and crimped the distal cerclage. I was satisfied with the stability. I removed one of the distal cerclage that had previously been applied and the other was was tightened and crimped over the plate. An additional cerclage was placed through the plate near the level of the fracture. This was tightened a crimped. I then took the hip through a full ROM and was satisfied with the stability of the hip and the fracture. I then irrigated copiously and placed 1 g of local transaxemic acid. I performed a capsular closure with 2.0 fiberwire, Alyx's fascia with 0 Vicryl, subcuticular with 2-0 Vicryl and the skin with claudia. Patient was placed into a sterile dressing. Patient was placed supine and radiographs were obtained. I was satisfied with the hardware. Patient was extubated brought to the recovery room in stable condition. There were no known complications.
--- NOTE | 2023-09-10 10:33 | P.PNOP_ITS ---
Subjective Subjective Date of Service: 09/10/23 Interval history: POD 2 s/p Revision LT CHINYERE periprosthetic fx no overnight events resting in chair, states she tolerated OOB but had some inc pain--she is concerned she is not making progress like she did with her initial hip replacement. denies sob, palpitations, dizziness, cp Physical Exam Vital Signs: Vital Signs: Last Vital Signs Temp 99.4 F 09/10/23 06:56 Pulse 110 H 09/10/23 07:50 Resp 16 09/10/23 07:50 BP 172/78 H 09/10/23 08:01 Pulse Ox 93 09/10/23 06:56 O2 Del Method Room Air 09/10/23 06:56 O2 Flow Rate 2 09/08/23 17:48 BMI result Body Mass Index 26.1 Const: General: cooperative, healthy appearing and no acute distress Resp: Effort & Inspection: normal respiratory effort and able to speak in complete sentences Cardio: Rate: regular rate Peripheral pulses: Peripheral pulses 2+ throughout GI: Palpation (GI): Soft to palpation Skin: General skin exam: no rashes or lesions noted Extrem: Other: bandage clean dry and intact. Debbie intact. No erythema or effusion. Calf supple nontender. Neurovascularly intact. Procedures Date of Service Date of Service: 09/10/23 Progress Note: A&P Assessment and plan (1) Periprosthetic fracture around internal prosthetic left hip joint, initial encounter: Status: Acute Assessment and Plan: * Continue pain mgmnt * lovenox for dvt ppx * PT/OT for Revision LT CHINYERE post precautions-TTWB w walker * Dispo planning-Pending PT eval, pain mgmnt I explained to the patient at length that this surgery is not as straightforward as her primary hip replacement and I do not expect her to be up and ambulating as well as she was initially. I explained that she will have limited weight- bearing status and that the recovery process will be more extensive than with a primary hip she seemed more comfortable with this information and she will continue to work with PT and will continue to monitor her pain and plan for d ischarge in the upcoming day. Need for continued inpatient stay: pain mgmnt . PT Time Spent With Patient Time: Total time managing care of this patient today ____ minutes. Quality Stroke Does the patient have a stroke diagnosis?: No VTE Prior VTE?: No VTE Risk Level:: Medical - moderate - high VTE Device Contraindication: Treatment Not Indicated VTE Drug Contraindication: N/A - Med Ordered
[2023-09-10] MEDS: Acetaminophen 1,000 MG/100 ML PIGGYBACK 400 MG IV ×3 (11:57→22:41)
[2023-09-10] MEDS: amLODIPine Besylate 5 MG TABLET PO (11:57)
[2023-09-10] MEDS: Ketorolac Tromethamine 30 MG/ML VIAL IVPUSH (11:57)
--- NOTE | 2023-09-10 12:19 | P.PNIM_ITS ---
Subjective Subjective Date of Service: 09/10/23 Interval History: Seen and examined this morning follow-up for medical consultation Still reporting left hip pain No overnight events No headache, no shortness of breath, no vision changes Review of Systems Review of Systems: Yes all other systems are reviewed and are negative Constitutional Constitutional: Denies chills and Denies fever(s) Physical Exam 2 Vital Signs: Vital Signs: Last Vital Signs Temp 98.3 F 09/10/23 11:32 Pulse 87 09/10/23 11:32 Resp 16 09/10/23 11:32 BP 158/72 H 09/10/23 11:57 Pulse Ox 95 09/10/23 11:32 O2 Del Method Room Air 09/10/23 11:32 O2 Flow Rate 2 09/08/23 17:48 BMI result Body Mass Index 26.1 Const: General: cooperative, comfortable, no acute distress, alert and awake Nutritional Appearance: average body habitus Orientation/consciousness: p atient oriented x3 Resp: Effort & Inspection: normal respiratory effort, able to speak in complete sentences, no respiratory distress and no use of accessory muscles Cardio: Rate: regular rate GI: Inspection: No distended Palpation (GI): Soft to palpation and nontender Skin: Other: left hip bandage clean and dry Neuro: General: patient oriented x3, moves all extremities and CN's II-XI intact bilaterally Extrem: General: Yes no pedal edema Objective Data Active Medications Albuterol Sulfate (Albuterol Sulfate 90 Mcg 8 Gm Inhaler) 2 puff INHALE Q6H PRN PRN Reason: wheezing Amlodipine Besylate (Amlodipine Besylate 5 Mg Tablet) 5 mg PO DAILY [facility]; Protocol Last Admin: 09/10/23 11:57 Dose: 5 mg Documented By: SYMONE Atorvastatin Calcium (Atorvastatin Calcium 20 Mg Tablet) 20 mg PO DAILY [facility] Last Admin: 09/10/23 08:01 Dose: 20 mg Documented By: SYMONE Calcitonin Columbiana (Calcitonin,[place],Synth Nasal 3.7 Ml Bottle) 1 spray NOSTRIL-B DAILY [facility] Last Admin: 09/10/23 07:58 Dose: 1 spray Documented By: SYMONE Cyanocobalamin (Cyanocobalamin (Vitamin B-12) 1,000 Mcg Tablet) 1,000 mcg PO DAILY [facility] Last Admin: 09/10/23 08:01 Dose: 1,000 mcg Documented By: SYMONE Docusate Sodium (Docusate Sodium 100 Mg Capsule) 100 mg PO BID [facility] Last Admin: 09/10/23 08:01 Dose: 100 mg Documented By: SYMONE Enoxaparin Sodium (Enoxaparin Sodium 40 Mg/0.4 Ml Syringe) 40 mg SUBCUT Q24H [facility] Last Admin: 09/09/23 15:18 Dose: 40 mg Documented By: SYMONE Fluticasone/Umeclidinium/Vilanterol (Fluticasone/Umeclidinium/Vilanterol 100/62.5/25 Blst.W.Dev) 1 puff INHALE RDAILY [facility] Last Admin: 09/10/23 07:48 Dose: 1 puff Documented By: JASMIN Hydromorphone HCl (Hydromorphone Hcl 0.5 Mg/0.5 Ml Syringe) 0.5 mg IVPUSH Q3H PRN; Protocol PRN Reason: Pain, Severe (Pain Scale 7-10) Last Admin: 09/10/23 07:58 Dose: 0.5 mg Documented By: SYMONE Hydroxyzine HCl (Hydroxyzine Hcl 50 Mg Tablet) 50 mg PO BID [facility] Last Admin: 09/10/23 08:01 Dose: 50 mg Documented By: SYMONE Acetaminophen (Ofirmev) 1,000 mg in 100 mls @ 400 mls/hr IV Q6H [facility] Stop: 09/11/23 04:59 Last Infusion: 09/10/23 12:12 Dose: Infused Documented By: SYMONE Lisinopril (Lisinopril 10 Mg Tablet) 10 mg PO DAILY [facility]; Protocol Last Admin: 09/10/23 08:01 Dose: 10 mg Documented By: SYMONE Loratadine (Loratadine 10 Mg Tablet) 10 mg PO DAILY [facility] Last Admin: 09/10/23 08:01 Dose: 10 mg Documented By: SYMONE Multivitamins/Vitamin C (Multivitamin Tablet) 1 tab PO DAILY [facility] Last Admin: 09/10/23 08:01 Dose: 1 tab Documented By: SYMONE Ondansetron HCl (Ondansetron Hcl 4 Mg/2 Ml Vial) 4 mg IVPUSH Q8H PRN PRN Reason: Nausea and Vomiting Last Admin: 09/06/23 20:55 Dose: 4 mg Documented By: LIMA Oxycodone HCl (Oxycodone Hcl Er 10 Mg Tab.Er.12h) 10 mg PO BID [facility] Last Admin: 09/10/23 08:01 Dose: 10 mg Documented By: SYMONE Oxycodone HCl (Oxycodone Hcl Immed Release 5 Mg Tablet) 10 mg PO Q4H PRN PRN Reason: Pain, Moderate(Pain Scale 4-6) Last Admin: 09/09/23 15:40 Dose: 10 mg Documented By: SYMONE Polyethylene Glycol (Polyethylene Glycol 3350 17 Gm Powd.Pack) 17 gm PO DAILY PRN PRN Reason: Constipation Sodium Chloride (0.9 % Sodium Chloride Flush 3 Ml Syringe) 3 ml IVFLUSH QSHIFT [facility] Last Admin: 09/10/23 08:02 Dose: 3 ml Documented By: SYMONE Thiamine HCl (Thiamine Hcl 100 Mg Tablet) 100 mg PO DAILY [facility] Last Admin: 09/10/23 08:01 Dose: 100 mg Documented By: SYMONE Tizanidine HCl (Tizanidine Hcl 4 Mg Tablet) 4 mg PO Q6H PRN PRN Reason: muscle spasticity Last Admin: 09/06/23 21:52 Dose: 4 mg Documented By: LIMA Labs 09/10/23 07:55 09/10/23 07:55 Labs: Laboratory Results - last 24 hr 09/10/23 07:55 MCV 93.3 MCH 29.8 MCHC 32.0 RDW 14.9 Plt Count 472 H MPV 9.1 L Immature Gran % (Auto) 0.9 H Neut % (Auto) 74.3 H Lymph % (Auto) 12.9 L Turner % (Auto) 7.3 Eos % (Auto) 3.8 Baso % (Auto) 0.8 Lymph # (Auto) 1.9 Turner # (Auto) 1.1 Eos # (Auto) 0.6 H Baso # (Auto) 0.1 Abs Immat Gran (auto) 0.14 H Absolute Neuts (auto) 11.0 H Absolute Nucleated RBC 0.000 Nucleated RBC % (auto) 0.0 Anion Gap 14 Estim Creat Clear Calc 60.0 Estimated GFR > 60 Fasting Glucose 117 H Calcium 9.0 D Assessment and Plan (1) Elevated blood pressure reading with diagnosis of hypertension: Status: Acute Plan Pt is a 67-year-old female with a PMH significant for?asthma/COPD overlap syndrome, HTN, HLD, diet-controlled type 2 diabetes, peripheral neuropathy, and mood disorder who is a direct admission to the hospital from orthopedic office after found to have a left femur periprosthetic fracture. Hospitalist consult for medical management and preop clearance. Left femur periprosthetic fracture POD 2 s/p left total hip arthroplasty periprosthetic fracture management per orthopedic team Elevated BP in HTN continue Lisinopril to 10 mg norvasc added, titrate prn Pain playing a role Asthma/COPD Not in acute exacerbation Continue home inhalers Diet-controlled type 2 diabetes Diabetic diet Peripheral neuropathy Continue tizanidine HLD Continue statin Thank you for allowing us to participate in the care of this patient. Will continue to follow with you as needed Quality Stroke Does the patient have a stroke diagnosis?: No VTE Prior VTE?: No VTE Risk Level:: Medical - moderate - high VTE Device Contraindication: Treatment Not Indicated VTE Drug Contraindication: N/A - Med Ordered
[2023-09-10] MEDS: Enoxaparin Sodium 40 MG/0.4 ML SYRINGE SUBCUT (14:19)
[2023-09-11] VITALS (8 sets, daily range): BP systolic 102–169; BP diastolic 58–87; PULSE 70–100; RESP 13–20; TEMP 36.2–36.6; O2SAT 94–98
[2023-09-11] MEDS: HYDROmorphone HCl 0.5 MG/0.5 ML SYRINGE IVPUSH ×2 (03:34→13:25)
[2023-09-11 05:31] LABS: MANUAL DIFF FLAG NO
[2023-09-11 05:39] LABS: Basophils Absolute Auto 0.1 X10*3/uL (0.0-0.2); Basophils Percent Auto 0.9 % (0-2); Eosinophils Absolute Auto 0.5 X10*3/uL (0.0-0.4); Eosinophils Percent Auto 5.6 % (0-4); Hematocrit 25.6 % (37.0-47.0); Hemoglobin 8.2 g/dl (12.0-16.0); Imm Gran Abs Auto 0.09 X10*3/uL (0.00-0.03); Lymphocytes Absolute Auto 1.4 X10*3/uL (1.2-4.9); Lymphocytes Percent Auto 14.8 % (20-40); Mean Corpuscular Hemoglobin 30.1 pg (27.0-33.0); Mean Corpuscular Volume 94.1 fL (80.0-98.0); Mean Platelet Volume 9.4 fL (9.4-12.3); Monocytes Absolute Auto 0.9 X10*3/uL (0.1-1.2); Monocytes Percent Auto 9.8 % (2-11); Neutrophils Absolute Auto 6.2 x10*3/uL (2.0-8.3); Neutrophils Percent Auto 67.9 % (45-73); Platelet Count 322 X10*3/uL (160-400); Red Blood Count 2.72 X10*6/uL (4.20-5.50); Red Cell Distribution Width 14.8 % (11.0-16.0); White Blood Count 9.1 X10*3/uL (4.8-10.8)
[2023-09-11 05:51] LABS: Anion Gap 12 (12-20); Blood Urea Nitrogen 11 mg/dL (9-16); Calcium 8.8 mg/dL (8.4-10.2); Carbon Dioxide 27 mmol/L (22-29); Chloride 111 mmol/L (96-108); Estimated Glomerular Filt Rate > 60; Glucose Fasting 99 mg/dL (60-99); Potassium 4.1 mmol/L (3.3-5.1); Sodium 146 mmol/L (135-145)
[2023-09-11] MEDS: Acetaminophen 1,000 MG/100 ML PIGGYBACK 400 MG IV (06:21)
[2023-09-11] MEDS: 0.9 % Sodium Chloride Flush 3 ML SYRINGE IVFLUSH ×2 (07:43→15:45)
[2023-09-11] MEDS: Multivitamin TABLET 1 TAB PO (07:45)
[2023-09-11] MEDS: Cyanocobalamin (Vitamin B-12) 1,000 MCG TABLET 1000 MCG PO (07:45)
[2023-09-11] MEDS: Docusate Sodium 100 MG CAPSULE PO (07:45)
[2023-09-11] MEDS: oxyCODONE HCl ER 10 MG TAB.ER.12H PO (07:45)
[2023-09-11] MEDS: Atorvastatin Calcium 20 MG TABLET PO (07:45)
[2023-09-11] MEDS: hydrOXYzine HCL 50 MG TABLET PO (07:46)
[2023-09-11] MEDS: lisinopriL 10 MG TABLET PO (07:46)
[2023-09-11] MEDS: Thiamine HCL 100 MG TABLET PO (07:46)
[2023-09-11] MEDS: Loratadine 10 MG TABLET PO (07:47)
[2023-09-11] MEDS: amLODIPine Besylate 5 MG TABLET PO (07:47)
[2023-09-11] MEDS: oxyCODONE HCl Immed Release 5 MG TABLET 10 MG PO ×3 (07:51→16:36)
[2023-09-11] MEDS: Fluticasone/Umeclidinium/Vilanterol 100/62.5/25 BLST.W.DEV 1 PUFF INHALE (08:06)
[2023-09-11] MEDS: Calcitonin,Salmon,Synth Nasal 3.7 ML BOTTLE 1 SPRAY NOSTRIL-B (09:32)
[2023-09-11] MEDS: polyethylene glycoL 3350 17 GM POWD.PACK PO (09:54)
--- NOTE | 2023-09-11 11:11 | MHC.CM.PN ---
Addendum entered by Guerline Abebe RN 09/11/23 15:27: Auth obtained. BLS transport scheduled to [facility] for acute rehab at 1630. RN and patient aware. Original Note: EMR REVIEWED. PT RECOMMENDING ACUTE REHAB. PATIENT PREVIOUSLY DECLINING. CM MET WITH PATIENT WHO IS NOW AGREEABLE TO [facility], NO FACILITY PREFERENCE. REFERRALS PLACED AND PATIENT ACCEPTED BED FROM [facility]. AUTH PENDING. CM WILL CONTINUE TO FOLLOW.
--- NOTE | 2023-09-11 13:02 | PM.DS ---
DS: Providers Provider Date of Service: 09/11/23 Date of admission: 09/06/23 11:36 Primary care physician: Gabbi Womack MD Consults: 09/06/23 11:31 Consult to Hospitalist Routine Comment: Consulting Provider: Hospitalist Reason For Exam: pre op clearance 09/06/23 14:18 Consult to Wound Care Routine Reason for consultation: bilateral buttocks redness,foam applied for protection Has provider been notified: No DS: Diagnosis Discharge Diagnosis (1) Elevated blood pressure reading with diagnosis of hypertension: Status: Acute DS: Summary Hospital Course Hospital Course: The patient underwent a successful Left hip revision arthroplasty with internal fixation greater trochanter, they were transferred to PACU and then to the floor to recover. During their stay, their vitals were stable, afebrile at 97.3. Labs were unremarkable, H/H 8.2/25.6. POD 1 they were started onLovenox for DVT ppx, they also received Physical Therapy services twice a day. Prior to discharge, their dressing was quoc, dry, and intact and the plan [facility] Time Attestation Discharge Coordination Time (in mins): 30 Quality: Safe Use of Opioids Does Pt have an Active Cancer Diagnosis on the Problem List?: No Quality: Stroke Does the patient have a stroke diagnosis?: No Physical Exam Vital Signs: Vital Signs: Last Vital Signs Temp 97.3 F 09/11/23 12:00 Pulse 100 09/11/23 12:00 Resp 14 09/11/23 12:00 BP 140/60 H 09/11/23 12:00 Pulse Ox 95 09/11/23 12:00 O2 Del Method Room Air 09/11/23 12:00 O2 Flow Rate 2 09/08/23 17:48 BMI result Body Mass Index 26.1 DS: Data Data Completed and Pending Completed studies during hospitalization [Text1]: Procedures Replacement of Left Hip Joint with Ceramic Synthetic Substitute, Uncemented, Open Approach (08/29/23) Labs on day of discharge: Laboratory Results - last 24 hr 09/11/23 05:07 WBC 9.1 RBC 2.72 L Hgb 8.2 L Hct 25.6 L MCV 94.1 MCH 30.1 MCHC 32.0 RDW 14.8 Plt Count 322 D MPV 9.4 Immature Gran % (Auto) 1.0 H Neut % (Auto) 67.9 Lymph % (Auto) 14.8 L Hockley % (Auto) 9.8 Eos % (Auto) 5.6 H Baso % (Auto) 0.9 Lymph # (Auto) 1.4 [place] # (Auto) 0.9 Eos # (Auto) 0.5 H Baso # (Auto) 0.1 Abs Immat Gran (auto) 0.09 H Absolute Neuts (auto) 6.2 Absolute Nucleated RBC 0.000 Nucleated RBC % (auto) 0.0 Sodium 146 H Potassium 4.1 Chloride 111 H Carbon Dioxide 27 Anion Gap 12 BUN 11 Creatinine 0.74 Estim Creat Clear Calc 60.0 Estimated GFR > 60 Fasting Glucose 99 Calcium 8.8 Preliminary micro results at discharge 09/07/23 00:30 Blood Culture - Preliminary Blood - Venous No growth after 48 hours. 09/07/23 00:30 Blood Culture - Preliminary Blood - Venous No growth after 48 hours. Discharge Plan Discharge Anticipated Discharge Date/Time: 09/11/23 13:59 Patient Disposition: Xfer SNF Discharge Diagnosis: s/p revision LT Referrals: [facility] [Outside] - 1 Day (Acute rehab) Gabbi Womack MD [Primary Care Provider] - 1 Week Izabel Hoang PA-C [Physician Environmental Attorney] - 09/19/23 11:00 am Discharge Medications: New enoxaparin 40 mg/0.4 mL Syringe 40 mg subcut Q24H 42 Days Qty: 16.8 0RF oxycodone 10 mg tablet 10 mg PO Q4H PRN (Reason: Pain, Moderate(Pain Scale 4-6)) 7 Days Qty: 42 0RF Rx Instructions: Partial Fill upon patient request. polyethylene glycol 3350 17 gram Powder In Packet 17 g PO DAILY PRN (Reason: Constipation) 30 Days Qty: 30 0RF docusate sodium 100 mg Capsule 100 mg PO BID 30 Days Qty: 60 0RF Continued oxycodone 5 mg tablet 5 mg PO Q4H PRN (Reason: Pain, Moderate(Pain Scale 4-6)) 7 Days Qty: 42 0RF Rx Instructions: Partial Fill upon patient request. atorvastatin 20 mg Tablet 20 mg PO DAILY albuterol sulfate [Ventolin HFA] 90 mcg/actuation HFA aerosol inhaler 2 puff inhalation Q6H PRN (Reason: wheezing) hydroxyzine HCl 50 mg tablet 50 mg PO BID tizanidine 2 mg tablet 4 mg PO Q6H PRN (Reason: muscle spasticity) Trelegy Ellipta 100-62.5-25 mcg blister with device 1 ea inhalation DAILY cetirizine 10 mg tablet 10 mg PO DAILY cyanocobalamin (vitamin B-12) 1,000 mcg tablet 1,000 mcg PO DAILY celecoxib 100 mg capsule 100 mg PO BID B-complex with vitamin C Tablet 1 tab PO DAILY cholecalciferol (vitamin D3) 25 mcg (1,000 unit) tablet 25 mcg DAILY acetaminophen 325 mg Tablet 650 mg PO Q6H PRN (Reason: Pain, Mild (Pain Scale 1-3)) 30 Days Qty: 240 0RF docusate sodium 100 mg Capsule 100 mg PO BID 14 Days Qty: 28 0RF calcitonin (salmon) 200 unit/actuation spray,non-aerosol 1 spray intranasal DAILY diclofenac sodium 1 % gel 1 g topical BID aspirin 325 mg tablet 325 mg PO DAILY thiamine HCl (vitamin B1) 100 mg tablet 100 mg PO DAILY nystatin 100,000 unit/gram powder 1 appl topical DAILY PRN (Reason: Rash) Ozempic 2 mg/dose (8 mg/3 mL) pen injector 2 mg subcut WE@0900 Rx Instructions: patient takes every Monday kgzboaln-dwh-zjob fum-folic ac 7.5 mg iron-400 mcg tablet 1 tab PO DAILY lisinopril 2.5 mg tablet 2.5 mg PO DAILY Discharge Orders: Discharge Order (Routine); Ordered 09/11/23 Ordered By: Martha Trent Diet: Advance to usual diet Activity on Discharge: Use cane or walker Stand Alone Forms: Patient Portal Discharge page Print Language: Turkmen Care Plan Goals: restore fxn to left hip Health Concerns: none Plan of Treatment: Physical Therapy for total hip arthroplasty: posterior precautions, gait training, ROM, strength Limit stair climbing No showering, no tub bath-keep dressing clean, dry and intact No driving x6 weeks Continue Lovenox x 6 weeks Follow up with [facility] Orthopedics in 2 weeks Assessment: stable for d/c to SNF Patient Instructions: Enoxaparin (By injection), How to Give a Subcutaneous Injection (DC) Discharge Date/Time: 09/11/23 16:54
--- NOTE | 2023-09-11 13:02 | PM.DS ---
DS: Providers Provider Date of Service: 09/11/23 Date of admission: 09/06/23 11:36 Primary care physician: Gabbi Womack MD Consults: 09/06/23 11:31 Consult to Hospitalist Routine Comment: Consulting Provider: Hospitalist Reason For Exam: pre op clearance 09/06/23 14:18 Consult to Wound Care Routine Reason for consultation: bilateral buttocks redness,foam applied for protection Has provider been notified: No DS: Diagnosis Discharge Diagnosis (1) Elevated blood pressure reading with diagnosis of hypertension: Status: Acute DS: Summary Hospital Course Hospital Course: The patient underwent a successful Left hip revision arthroplasty with internal fixation greater trochanter, they were transferred to PACU and then to the floor to recover. During their stay, their vitals were stable, afebrile at 97.3. Labs were unremarkable, H/H 8.2/25.6. POD 1 they were started onLovenox for DVT ppx, they also received Physical Therapy services twice a day. Prior to discharge, their dressing was quoc, dry, and intact and the plan was to be discharged to detention facility. Time Attestation Discharge Coordination Time (in mins): 30 Quality: Safe Use of Opioids Does Pt have an Active Cancer Diagnosis on the Problem List?: No Quality: Stroke Does the patient have a stroke diagnosis?: No Physical Exam Vital Signs: Vital Signs: Last Vital Signs Temp 97.3 F 09/11/23 12:00 Pulse 100 09/11/23 12:00 Resp 14 09/11/23 12:00 BP 140/60 H 09/11/23 12:00 Pulse Ox 95 09/11/23 12:00 O2 Del Method Room Air 09/11/23 12:00 O2 Flow Rate 2 09/08/23 17:48 BMI result Body Mass Index 26.1 Const: General: cooperative, healthy appearing and no acute distress Resp: Effort & Inspection: normal respiratory effort and able to speak in complete sentences Cardio: Rate: regular rate Peripheral pulses: Peripheral pulses 2+ throughout GI: Palpation (GI): Soft to palpation Skin: General skin exam: no rashes or lesions noted Lesions: no lesions Rashes: no rashes Extrem: Other: bandage clean dry and intact. [place] intact. No erythema or effusion. Calf supple nontender. Neurovascularly intact. DS: Data Data Completed and Pending Completed studies during hospitalization [Text1]: Procedures Replacement of Left Hip Joint with Ceramic Synthetic Substitute, Uncemented, Open Approach (08/29/23) Labs on day of discharge: Laboratory Results - last 24 hr 09/11/23 05:07 WBC 9.1 RBC 2.72 L Hgb 8.2 L Hct 25.6 L MCV 94.1 MCH 30.1 MCHC 32.0 RDW 14.8 Plt Count 322 D MPV 9.4 Immature Gran % (Auto) 1.0 H Neut % (Auto) 67.9 Lymph % (Auto) 14.8 L Toombs % (Auto) 9.8 Eos % (Auto) 5.6 H Baso % (Auto) 0.9 Lymph # (Auto) 1.4 [place] # (Auto) 0.9 Eos # (Auto) 0.5 H Baso # (Auto) 0.1 Abs Immat Gran (auto) 0.09 H Absolute Neuts (auto) 6.2 Absolute Nucleated RBC 0.000 Nucleated RBC % (auto) 0.0 Sodium 146 H Potassium 4.1 Chloride 111 H Carbon Dioxide 27 Anion Gap 12 BUN 11 Creatinine 0.74 Estim Creat Clear Calc 60.0 Estimated GFR > 60 Fasting Glucose 99 Calcium 8.8 Preliminary micro results at discharge 09/07/23 00:30 Blood Culture - Preliminary Blood - Venous No growth after 48 hours. 09/07/23 00:30 Blood Culture - Preliminary Blood - Venous No growth after 48 hours. Discharge Plan Discharge Anticipated Discharge Date/Time: 09/11/23 13:59 Patient Disposition: Xfer SNF Discharge Diagnosis: s/p revision LTHA Referrals: Gabbi Womack MD [Primary Care Provider] - 1 Week Izabel Hoang PA-C [Physician Hazardous Waste Management Specialist] - 09/19/23 11:00 am Discharge Medications: New enoxaparin 40 mg/0.4 mL Syringe 40 mg subcut Q24H 42 Days Qty: 16.8 0RF oxycodone 10 mg tablet 10 mg PO Q4H PRN (Reason: Pain, Moderate(Pain Scale 4-6)) 7 Days Qty: 42 0RF Rx Instructions: Partial Fill upon patient request. polyethylene glycol 3350 17 gram Powder In Packet 17 g PO DAILY PRN (Reason: Constipation) 30 Days Qty: 30 0RF docusate sodium 100 mg Capsule 100 mg PO BID 30 Days Qty: 60 0RF Continued oxycodone 5 mg tablet 5 mg PO Q4H PRN (Reason: Pain, Moderate(Pain Scale 4-6)) 7 Days Qty: 42 0RF Rx Instructions: Partial Fill upon patient request. atorvastatin 20 mg Tablet 20 mg PO DAILY albuterol sulfate [Ventolin HFA] 90 mcg/actuation HFA aerosol inhaler 2 puff inhalation Q6H PRN (Reason: wheezing) hydroxyzine HCl 50 mg tablet 50 mg PO BID tizanidine 2 mg tablet 4 mg PO Q6H PRN (Reason: muscle spasticity) Trelegy Ellipta 100-62.5-25 mcg blister with device 1 ea inhalation DAILY cetirizine 10 mg tablet 10 mg PO DAILY cyanocobalamin (vitamin B-12) 1,000 mcg tablet 1,000 mcg PO DAILY celecoxib 100 mg capsule 100 mg PO BID B-complex with vitamin C Tablet 1 tab PO DAILY cholecalciferol (vitamin D3) 25 mcg (1,000 unit) tablet 25 mcg DAILY acetaminophen 325 mg Tablet 650 mg PO Q6H PRN (Reason: Pain, Mild (Pain Scale 1-3)) 30 Days Qty: 240 0RF docusate sodium 100 mg Capsule 100 mg PO BID 14 Days Qty: 28 0RF calcitonin (salmon) 200 unit/actuation spray,non-aerosol 1 spray intranasal DAILY diclofenac sodium 1 % gel 1 g topical BID aspirin 325 mg tablet 325 mg PO DAILY thiamine HCl (vitamin B1) 100 mg tablet 100 mg PO DAILY nystatin 100,000 unit/gram powder 1 appl topical DAILY PRN (Reason: Rash) Ozempic 2 mg/dose (8 mg/3 mL) pen injector 2 mg subcut WE@0900 Rx Instructions: patient takes every Monday vlqapqgf-wwz-ozmb fum-folic ac 7.5 mg iron-400 mcg tablet 1 tab PO DAILY lisinopril 2.5 mg tablet 2.5 mg PO DAILY Discharge Orders: Discharge Order (Routine); Ordered 09/11/23 Ordered By: Martha Trent Diet: Advance to usual diet Activity on Discharge: Use cane or walker Stand Alone Forms: Patient Portal Discharge page Print Language: [place] Care Plan Goals: restore fxn to left hip Health Concerns: none Plan of Treatment: Physical Therapy for total hip arthroplasty: posterior precautions, gait training, ROM, strength Limit stair climbing No showering, no tub bath-keep dressing clean, dry and intact No driving x6 weeks Continue Lovenox x 6 weeks Follow up with [facility] [place] [place] [facility] in 2 weeks Assessment: stable for d/c to SNF Patient Instructions: Enoxaparin (By injection), How to Give a Subcutaneous Injection (DC)
[2023-09-11] MEDS: Milk of Magnesia 30 ML ORAL.SUSP PO (13:18)
[2023-09-11] MEDS: Enoxaparin Sodium 40 MG/0.4 ML SYRINGE SUBCUT (14:12)
--- NOTE | 2023-09-11 14:54 | PC.NURSE ---
No results from Miralax and SEBASTIAN WHITAKER notified
== END 2023-09-11 16:54 | disposition skilled nursing facility (03) | DRG 467 ==
PROVIDERS: Internal Medicine; Orthopaedic Surgery; Admitting Provider Physician Assistant; PCP Hospitalist; Visit Provider Physician Assistant
PROC: 0SRB03A Replacement of Left Hip Joint with Ceramic Synthetic Substitute, Uncemented, Open Approach (ICD-10-PCS; principal; 2023-09-08 13:30)
DX: S72.112A Displaced fracture of greater trochanter of left femur, initial encounter for closed fracture (principal); M97.02XA Periprosthetic fracture around internal prosthetic left hip joint, initial encounter; X58.XXXA Exposure to other specified factors, initial encounter; J44.9 Chronic obstructive pulmonary disease, unspecified; I10 Essential (primary) hypertension; E78.5 Hyperlipidemia, unspecified; E11.42 Type 2 diabetes mellitus with diabetic polyneuropathy; Z98.84 Bariatric surgery status; F39 Unspecified mood [affective] disorder; Z87.891 Personal history of nicotine dependence; Z79.899 Other long term (current) drug therapy
CPT/HCPCS: 36415; 72170; 73502; 80048; 80053; 82947; 83605; 84484; 85025; 85610; 86850; 86900; 86901; 87040; 93005; 94664; 97116; 97162; 97166; 97530; 99212; C1713; C1776; J0131; J0330; J0690; J1100; J1170; J1644; J1650; J1885; J1920; J2250; J2270; J2405; J2704; J2795; J3010; J7120

== ENCOUNTER 2023-09-06 11:36 | Outpatient (BNV) | payer OTHER, SELFPAY | END 2023-09-07 00:16 | PROVIDERS: Admitting Provider Physician Assistant; PCP Hospitalist; Visit Provider Internal Medicine | DX: R03.1 Nonspecific low blood-pressure reading (principal) | CPT/HCPCS: 93010 ==

== ENCOUNTER → 2023-09-06 11:36 | Outpatient (BNV) | payer OTHER, SELFPAY | PROVIDERS: Admitting Provider Physician Assistant; PCP Hospitalist; Visit Provider Physician Assistant | DX: M97.02XA Periprosthetic fracture around internal prosthetic left hip joint, initial encounter (principal) | CPT/HCPCS: 27134; 27244; 99024; 99499 ==

== ENCOUNTER → 2023-09-06 11:36 | Outpatient (BNV) | payer OTHER, SELFPAY | PROVIDERS: Admitting Provider Physician Assistant; PCP Hospitalist; Visit Provider Student in an Organized Health Care Education/Training Program | DX: I10 Essential (primary) hypertension (principal) | CPT/HCPCS: 99222; 99231; 99232 ==

== ENCOUNTER 2023-09-14 12:40 | Outpatient (AMB) | payer OTHER, SELFPAY ==
--- NOTE | 2023-09-14 12:54 | MHC.OFFVIS ---
Intake Visit Reasons: Postop-LT CHINYERE 08/29/23 NE Intake Note: Yanet a 67 year old female who presents today for a post operative wound check s/p left CHINYERE on 08/29/23. Patient reports she is doing better than last week. She is unsure if she will continue PT at rehab or outpatient therapy. Allergies Sulfa (Sulfonamide Antibiotics) Allergy (Intermediate, Verified 09/14/23 12:59) SWELLING metformin Adverse Reaction (Intermediate, Verified 09/14/23 12:59) diarrhea Medication List - Last Reconciled 09/14/23 by Izabel Hoang PA-C acetaminophen 650 mg (2 x 325 mg) PO Q6H PRN 30 days albuterol sulfate 90 mcg/actuation (Ventolin HFA) 2 puffs inhalation Q6H PRN aspirin 325 mg PO DAILY atorvastatin 20 mg PO DAILY B-complex with vitamin C 1 tab PO DAILY calcitonin (salmon) 200 unit/actuation 1 spray intranasal DAILY celecoxib 100 mg PO BID cetirizine 10 mg PO DAILY cholecalciferol (vitamin D3) 25 mcg DAILY cyanocobalamin (vitamin B-12) 1,000 mcg PO DAILY diclofenac sodium 1% 1 g topical BID docusate sodium 100 mg PO BID 30 days docusate sodium 100 mg PO BID 14 days enoxaparin 40 mg (0.4 mL) subcut Q24H 42 days xcteqnfwukh-zvexnvswl-zblhtjau 100-62.5-25 mcg (Trelegy Ellipta) 1 ea inhalation DAILY hydroxyzine HCl 50 mg PO BID lisinopril 2.5 mg PO DAILY aodjeklj-svy-kufo fum-folic ac 7.5 mg iron-400 mcg 1 tab PO DAILY nystatin 1 appl topical DAILY PRN oxycodone 10 mg PO Q4H PRN 7 days oxycodone 5 mg PO Q4H PRN 7 days polyethylene glycol 3350 17 grams PO DAILY PRN 30 days semaglutide (Ozempic) 2 mg subcut WE@0900 thiamine HCl (vitamin B1) 100 mg PO DAILY tizanidine 4 mg PO Q6H PRN HPI HPI Postop-LT CHINYERE 08/29/23 NE: Details: 67-year-old female who returns to the office today for s/p Revision left CHINYERE, 09/08/[address] Ruiz. She states she has improvement in her pain and is doing well overall. She is working with physical therapy at rehab and she is unsure if she should continue the therapy. She has no other concerns today. FORMERLY [facility], [facility] Medical History Osteoarthritis (arthritis due to wear and tear of joints) Abdominal hernia Asthma Arthritis COVID-19 vaccine series completed Full dentures Arthritis of left hip Low back pain Liver cyst IDDM (insulin dependent diabetes mellitus) COPD (chronic obstructive pulmonary disease) Elevated cholesterol Surgical History History of total left hip arthroplasty Hx of gastric bypass Hx of ankle fusion Status post insertion of nerve stimulator Hx of colonoscopy Hx of carpal tunnel repair History of back surgery Social History Household Members: Children Household Members Other:: 12 year old granddaughter Housing: House Are you a primary direct care supervisor to a significant other at home: Yes (granddaughter) Do you presently have visiting nurse or other home services: No Comment: pt rings appropriately Patient Tobacco Use Status: Former Tobacco user Tobacco use type: Cigarette Cigarettes Per Day: 60 Years Smoked: quit 15 years ago Second Hand Smoke Exposure: No service: No Review of Systems Const All systems reviewed & are unremarkable except as noted in HPI and below Physical Exam Extrem Other: Left hip: Incision clean, dry and intact. No erythema or drainage. She has no significant discomfort with ROM of hip. Mild discomfort with hip flexion. Calf supple, nontender. NVI. Assessment & Plan Assessment & Plan (1) Status post total hip replacement, left: Code(s): Z96.642 - Presence of left artificial hip joint Category: Surgical Plan Bandage and sutures will remain intact. She will continue with partial weight bearing as tolerated with a walker. She will work on physical therapy and occupational therapy with posterior precautions. I would like to see her back in 1 week with x-rays and staple removal, sooner if needed. Patient Instructions: Scribed for Izabel Hoang PA-C, by Yosi Ridley clinical specialist medical device, on 09/14/2023 at 12:30 PM EST.? I, Izabel Hoang PA-C, have personally reviewed and agree with the information entered by the scribe. Coding Level of Care Code Global (97920) Diagnoses Status post total hip replacement, left Z96.642
== END 2023-09-14 13:02 | disposition home or self-care (01) ==
PROVIDERS: PCP Hospitalist; Visit Provider Physician Assistant
DX: Z96.642 Presence of left artificial hip joint (principal)
CPT/HCPCS: 99024

== ENCOUNTER → 2023-09-14 12:40 | Outpatient (BNVA) | payer OTHER, SELFPAY | PROVIDERS: PCP Internal Medicine; Visit Provider Physician Assistant | DX: Z47.1 Aftercare following joint replacement surgery (principal); Z96.642 Presence of left artificial hip joint | CPT/HCPCS: 99212 ==

== ENCOUNTER 2023-09-21 10:03 | Outpatient (REF) | payer OTHER, SELFPAY ==
--- NOTE | ~2023-09-21 | XR_ITS ---
EXAMINATION: XR HIP, LEFT CLINICAL INFORMATION: Left hip pain. COMPARISON: Most recent pelvic radiograph dated 09/08/2023. TECHNIQUE: AP view of the pelvis as well as cross-table lateral views of the left hip. FINDINGS: Redemonstration of a left hip arthroplasty with a lateral femoral stabilization plate and cerclage wires. No hardware fracture or perihardware lucency to suggest loosening or infection. Mildly displaced, oblique fracture through the medial cortex of the proximal femoral diametaphysis with a fracture gap measuring up to 0.4 cm, unchanged in alignment when compared to the prior examination. Minimal, if any, new bone/callus formation along the fracture line without significant osseous bridging. Severe right hip osteoarthritis with bony remodeling, unchanged. Lower lumbar spine orthopedic hardware and pelvic electronic device, unchanged. Lateral soft tissue claudia are redemonstrated. XR/XR hip LT min 2V IMPRESSION: 1. Left hip arthroplasty and left femoral ORIF without evidence of hardware loosening. 2. Proximal femoral fracture in unchanged alignment with minimal, if any, new bone/callus formation. 3. Severe right hip osteoarthritis with bony remodeling, unchanged.
== END 2023-09-21 10:04 | disposition home or self-care (01) ==
LOC: HO.HOSX 10:03
PROVIDERS: Visit Provider Physician Assistant
DX: M25.552 Pain in left hip (principal)
CPT/HCPCS: 73502

== ENCOUNTER 2023-09-22 10:59 | Outpatient (AMB) | payer OTHER, SELFPAY ==
--- NOTE | 2023-09-22 11:27 | A.OFFVIS_ITS ---
Intake Visit Reasons: PO- revision LT CHINYERE 09/08/23 w/ XR Intake Note: Yanet is a 67 year old female who presents today for a post operative appointment s/p revision left CHINYERE on 09/08/23. Patient reports she is in a lot of pain due to getting her x rays. Allergies Sulfa (Sulfonamide Antibiotics) Allergy (Intermediate, Verified 09/22/23 11:29) SWELLING metformin Adverse Reaction (Intermediate, Verified 09/22/23 11:29) diarrhea HPI HPI PO- revision LT CHINYERE 09/08/23 w/ XR: Details: 67-year-old female who presents in the office today 2 weeks status post revision of a left hip arthroplasty with internal fixation of the greater trochanter, which was performed on 09/08/[address] Ruiz. The patient was seen in the office on 09/14/2023 by Izabel Hoang PA-C when she was told to continue to partial weight-bear as tolerated with a walker. She was to work on physical therapy and occupational therapy with posterior precautions. ? ? While in the office today, the patient reports she is in ?a lot? of pain due to the x-rays being obtained. ? [facility] Medical History Osteoarthritis (arthritis due to wear and tear of joints) Abdominal hernia Asthma Arthritis COVID-19 vaccine series completed Full dentures Arthritis of left hip Low back pain Liver cyst IDDM (insulin dependent diabetes mellitus) COPD (chronic obstructive pulmonary disease) Elevated cholesterol Surgical History History of total left hip arthroplasty Hx of gastric bypass Hx of ankle fusion Status post insertion of nerve stimulator Hx of colonoscopy Hx of carpal tunnel repair History of back surgery Social History Household Members: Children Household Members Other:: 12 year old granddaughter Housing: House Are you a primary insurance healthcare representative to a significant other at home: Yes (granddaughter) Do you presently have visiting nurse or other home services: No Comment: pt rings appropriately Patient Tobacco Use Status: Former Tobacco user Tobacco use type: Cigarette Cigarettes Per Day: 60 Years Smoked: quit 15 years ago Second Hand Smoke Exposure: No service: No Review of Systems Const All systems reviewed & are unremarkable except as noted in HPI and below Physical Exam Const General: cooperative, healthy appearing and no acute distress Resp Effort & Inspection: normal respiratory effort and able to speak in complete sentences Cardio Rate: regular rate Peripheral pulses: Peripheral pulses 2+ throughout GI Palpation (GI): Soft to palpation Skin Lesions: no lesions Rashes: no rashes Extrem Other: Left hip: Incision site is clean, dry, and intact. [place] are intact. No surrounding erythema or drainage. No signs of infection. Good internal and external rotation. NVI. ? Assessment & Plan Assessment & Plan (1) Status post total hip replacement, left: Code(s): Z96.642 - Presence of left artificial hip joint Category: Surgical Plan Ms. King is a 67-year-old female who presents in the office today 2 weeks status post revision of a left hip arthroplasty with internal fixation of the greater trochanter, which was performed on 09/08/[address] Ruiz. ? Dr. Ruiz was available to speak with me but did not see the patient in the office today; however, a collaborative treatment plan was made. Debbie were removed and steri-stripes were applied. She will continue with TTWB only. Follow-up will be in two weeks with Izabel Hoang PA-C and then in two additional weeks with Dr. Ruiz, or sooner if needed. ? ? X-rays of the left hip which were obtained while in the office today and were reviewed by me, Martha Trent PA-C, revealed intact orthopedic hardware with routine healing.? Patient Instructions: Scribed by Neela Santiago medical transport specialist, for Martha Trent PA-C on 09/22/2023 at 11:24 am, EST.? Coding Level of Care Code Global (56948) Diagnoses Status post total hip replacement, left Z96.642
== END 2023-09-22 11:51 | disposition home or self-care (01) ==
PROVIDERS: PCP Hospitalist; Visit Provider Physician Assistant
DX: Z96.642 Presence of left artificial hip joint (principal)
CPT/HCPCS: 99024

== ENCOUNTER → 2023-09-22 10:59 | Outpatient (BNVA) | payer OTHER, SELFPAY | PROVIDERS: PCP Hospitalist; Visit Provider Physician Assistant | DX: Z47.1 Aftercare following joint replacement surgery (principal); Z96.642 Presence of left artificial hip joint | CPT/HCPCS: 99212 ==

== ENCOUNTER 2023-10-05 12:42 | Outpatient (REF) | payer OTHER, SELFPAY ==
--- NOTE | ~2023-10-05 | XR_ITS ---
EXAMINATION: XR HIP, LEFT CLINICAL INFORMATION: Pain. COMPARISON: Multiple priors, most recent left hip radiographs dated 09/22/2023. TECHNIQUE: AP view of the pelvis as well as AP and cross-table lateral views of the left hip. FINDINGS: Redemonstration of a left hip arthroplasty with a lateral stabilization plate and cerclage wires in unchanged anatomic alignment. Mildly displaced oblique fracture through the medial cortex of the proximal left femoral diametaphysis in unchanged anatomic alignment. No significant new bone/callus formation. No new fracture or dislocation. Severe right hip osteoid arthritis, unchanged. XR/XR hip LT min 2V IMPRESSION: 1. Proximal left femoral fracture in unchanged anatomic alignment. No significant new bone/callus formation. 2. Left hip arthroplasty without evidence of loosening.
== END 2023-10-05 12:43 | disposition home or self-care (01) ==
LOC: HO.HOSX 12:42
PROVIDERS: Visit Provider Physician Assistant
DX: M25.552 Pain in left hip (principal); M25.551 Pain in right hip; Z47.1 Aftercare following joint replacement surgery; Z96.642 Presence of left artificial hip joint
CPT/HCPCS: 73502; 99212

== ENCOUNTER 2023-10-05 13:19 | Outpatient (AMB) | payer OTHER, SELFPAY ==
--- NOTE | 2023-10-05 13:36 | MHC.OFFVIS ---
Intake Visit Reasons: PO- revision LT CHINYERE 09/08/23 w/ XR-TTWB Intake Note: Yanet a 67 year old female who presents today for a post operative left CHINYERE on 09/08/23. Xrays updated. Patient reports she is doing well, states now having discomfort in her right hip due to overcompensating. Allergies Sulfa (Sulfonamide Antibiotics) Allergy (Intermediate, Verified 10/05/23 13:41) SWELLING metformin Adverse Reaction (Intermediate, Verified 10/05/23 13:41) diarrhea Medication List - Last Reconciled 10/05/23 by Izabel Hoang PA-C acetaminophen 650 mg (2 x 325 mg) PO Q6H PRN 30 days albuterol sulfate 90 mcg/actuation (Ventolin HFA) 2 puffs inhalation Q6H PRN aspirin 325 mg PO DAILY atorvastatin 20 mg PO DAILY B-complex with vitamin C 1 tab PO DAILY calcitonin (salmon) 200 unit/actuation 1 spray intranasal DAILY celecoxib 100 mg PO BID cetirizine 10 mg PO DAILY cholecalciferol (vitamin D3) 25 mcg DAILY cyanocobalamin (vitamin B-12) 1,000 mcg PO DAILY diclofenac sodium 1% 1 g topical BID docusate sodium 100 mg PO BID 30 days docusate sodium 100 mg PO BID 14 days enoxaparin 40 mg (0.4 mL) subcut Q24H 42 days pghnnqcnalj-qqutbqnhb-xpwzqcjy 100-62.5-25 mcg (Trelegy Ellipta) 1 ea inhalation DAILY hydroxyzine HCl 50 mg PO BID lisinopril 2.5 mg PO DAILY ycclupsx-xdl-ejfs fum-folic ac 7.5 mg iron-400 mcg 1 tab PO DAILY nystatin 1 appl topical DAILY PRN oxycodone 10 mg PO Q4H PRN 7 days oxycodone 5 mg PO Q4H PRN 7 days polyethylene glycol 3350 17 grams PO DAILY PRN 30 days semaglutide (Ozempic) 2 mg subcut WE@0900 thiamine HCl (vitamin B1) 100 mg PO DAILY tizanidine 4 mg PO Q6H PRN HPI HPI PO- revision LT CHINYERE 09/08/23 w/ XR-TTWB: Details: 67-year-old female who returns to the office today for post-op left CHINYERE revision, 09/08/23. She states she is doing well overall however she now experiences pain in her right hip due to overcompensating for her left hip. She has no other concerns today. FOR[facility]LY [facility], [facility] Medical History Osteoarthritis (arthritis due to wear and tear of joints) Abdominal hernia Asthma Arthritis COVID-19 vaccine series completed Full dentures Arthritis of left hip Low back pain Liver cyst IDDM (insulin dependent diabetes mellitus) COPD (chronic obstructive pulmonary disease) Elevated cholesterol Surgical History History of total left hip arthroplasty Hx of gastric bypass Hx of ankle fusion Status post insertion of nerve stimulator Hx of colonoscopy Hx of carpal tunnel repair History of back surgery Social History Household Members: Children Household Members Other:: 12 year old granddaughter Housing: House Are you a primary rn long term care to a significant other at home: Yes (granddaughter) Do you presently have visiting nurse or other home services: No Comment: pt rings appropriately Patient Tobacco Use Status: Former Tobacco user Tobacco use type: Cigarette Cigarettes Per Day: 60 Years Smoked: quit 15 years ago Second Hand Smoke Exposure: No service: No Review of Systems Const All systems reviewed & are unremarkable except as noted in HPI and below Physical Exam Extrem Other: Left hip: Incision clean, dry and intact. No erythema or drainage. She has no significant discomfort with ROM of hip. Mild discomfort with hip flexion. Calf supple, nontender. NVI. Results Reviewed Results Reviewed: Xrays were obtained in the office today and personally reviewed by me of the left hip show intact hardware with stable fracture alignment Assessment & Plan Assessment & Plan (1) Status post total hip replacement, left: Code(s): Z96.642 - Presence of left artificial hip joint Category: Surgical Plan She will continue with partial weight bearing of the LLE with her walker at all times. She will continue with physical therapy to work on gait training and strengthening, posterior precautions to remain in place. I would like to see her back in [address] Ruiz and new x-rays, sooner if needed. Orders: Orders XR hip LT min 2V Today M25.552 - Pain in left hip Patient Instructions: Scribed for Toney-Emily Hoang PA-C, by Yosi Ridley, medical equipment sales, on 10/05/2023 at 1:15 PM EST.? I, Toney-Emily Hoang PA-C, have personally reviewed and agree with the information entered by the scribe. Coding Level of Care Code Global (94812) Diagnoses Status post total hip replacement, left Z96.642
== END 2023-10-05 13:52 | disposition home or self-care (01) ==
PROVIDERS: PCP Hospitalist; Visit Provider Physician Assistant
DX: Z96.642 Presence of left artificial hip joint (principal)
CPT/HCPCS: 99024

== ENCOUNTER 2023-10-13 14:00 | Outpatient (REF) | payer OTHER, SELFPAY ==
--- NOTE | ~2023-10-13 | XR_ITS ---
EXAMINATION: XR HIP, RIGHT XR HIP, LEFT CLINICAL INFORMATION: Right and left hip pain. COMPARISON: Most recent left hip radiographs dated 10/05/2023 and pelvic radiograph dated 09/08/2023. TECHNIQUE: AP and frog-leg lateral views of the right and left hip. FINDINGS: Right hip: Severe superior joint space narrowing with acetabular bony remodeling. Subchondral cirrhosis and subchondral cystic change with prominent marginal osteophytes. Femoral neck buttressing. Findings are similar when compared to the most recent radiograph. No acute fracture or dislocation. No concerning lytic or blastic osseous lesion. Left hip: Redemonstration of a left hip arthroplasty with cerclage wires and trochanteric stabilization plate. No hardware fracture or dislocation. No perihardware lucency to suggest loosening or infection. Redemonstration of a nondisplaced, oblique fracture through the proximal femur in unchanged anatomic alignment. Mild new bone/callus formation with periosteal reaction. No new fracture or dislocation. Bilateral sacroiliac osteoarthritis, unchanged. Lower lumbar spine orthopedic hardware and pain pump, unchanged. XR/XR hip RT min 2V IMPRESSION: RIGHT HIP: Severe right hip osteoarthritis with femoral neck buttressing, unchanged. LEFT HIP: Left hip arthroplasty without evidence of hardware complication. Nondisplaced, oblique fracture through the proximal left femur in unchanged anatomic alignment with mild new bone/callus formation. No new fracture or dislocation.
--- NOTE | ~2023-10-13 | XR_ITS ---
EXAMINATION: XR HIP, RIGHT XR HIP, LEFT CLINICAL INFORMATION: Right and left hip pain. COMPARISON: Most recent left hip radiographs dated 10/05/2023 and pelvic radiograph dated 09/08/2023. TECHNIQUE: AP and frog-leg lateral views of the right and left hip. FINDINGS: Right hip: Severe superior joint space narrowing with acetabular bony remodeling. Subchondral cirrhosis and subchondral cystic change with prominent marginal osteophytes. Femoral neck buttressing. Findings are similar when compared to the most recent radiograph. No acute fracture or dislocation. No concerning lytic or blastic osseous lesion. Left hip: Redemonstration of a left hip arthroplasty with cerclage wires and trochanteric stabilization plate. No hardware fracture or dislocation. No perihardware lucency to suggest loosening or infection. Redemonstration of a nondisplaced, oblique fracture through the proximal femur in unchanged anatomic alignment. Mild new bone/callus formation with periosteal reaction. No new fracture or dislocation. Bilateral sacroiliac osteoarthritis, unchanged. Lower lumbar spine orthopedic hardware and pain pump, unchanged. XR/XR hip LT min 2V IMPRESSION: RIGHT HIP: Severe right hip osteoarthritis with femoral neck buttressing, unchanged. LEFT HIP: Left hip arthroplasty without evidence of hardware complication. Nondisplaced, oblique fracture through the proximal left femur in unchanged anatomic alignment with mild new bone/callus formation. No new fracture or dislocation.
== END 2023-10-13 14:01 | disposition home or self-care (01) ==
LOC: HO.HOSX 14:00
PROVIDERS: PCP Hospitalist; Visit Provider Physician Assistant
DX: M25.551 Pain in right hip (principal); M97.02XA Periprosthetic fracture around internal prosthetic left hip joint, initial encounter; W19.XXXA Unspecified fall, initial encounter; Y93.9 Activity, unspecified; Y92.9 Unspecified place or not applicable; Y99.9 Unspecified external cause status
CPT/HCPCS: 73502; 99212

== ENCOUNTER 2023-10-13 14:00 | Outpatient (AMB) | payer OTHER, SELFPAY ==
--- NOTE | 2023-10-13 14:04 | A.OFFVIS_ITS ---
Intake Visit Reasons: New Prob- Right hip pain Intake Note: Yanet is a 67 year old female who presents to the office today for right hip pain. Pt states the pain started about a week ago after falling 1.5 weeks ago. Pt states she has constant pain that shoots down her leg and across her groin area. Allergies Sulfa (Sulfonamide Antibiotics) Allergy (Intermediate, Verified 10/13/23 14:04) SWELLING metformin Adverse Reaction (Intermediate, Verified 10/13/23 14:04) diarrhea Medication List - Last Reconciled 10/13/23 by Izabel Hoang PA-C acetaminophen 650 mg (2 x 325 mg) PO Q6H PRN 30 days albuterol sulfate 90 mcg/actuation (Ventolin HFA) 2 puffs inhalation Q6H PRN aspirin 325 mg PO DAILY atorvastatin 20 mg PO DAILY B-complex with vitamin C 1 tab PO DAILY calcitonin (salmon) 200 unit/actuation 1 spray intranasal DAILY celecoxib 100 mg PO BID cetirizine 10 mg PO DAILY cholecalciferol (vitamin D3) 25 mcg DAILY cyanocobalamin (vitamin B-12) 1,000 mcg PO DAILY diclofenac sodium 1% 1 g topical BID docusate sodium 100 mg PO BID 30 days docusate sodium 100 mg PO BID 14 days enoxaparin 40 mg (0.4 mL) subcut Q24H 42 days qpppglqkaje-oyvknagmb-brrpvwah 100-62.5-25 mcg (Trelegy Ellipta) 1 ea inhalation DAILY hydroxyzine HCl 50 mg PO BID lisinopril 2.5 mg PO DAILY nuhqehsg-fvl-fspn fum-folic ac 7.5 mg iron-400 mcg 1 tab PO DAILY nystatin 1 appl topical DAILY PRN oxycodone 10 mg PO Q4H PRN 7 days oxycodone 5 mg PO Q4H PRN 7 days polyethylene glycol 3350 17 grams PO DAILY PRN 30 days semaglutide (Ozempic) 2 mg subcut WE@0900 thiamine HCl (vitamin B1) 100 mg PO DAILY tizanidine 4 mg PO Q6H PRN HPI HPI New Prob- Right hip pain: Details: 67-year-old female who presents to the office today for an evaluation of right hip pain for about a week. She reports she sustained a fall about 1.5 weeks ago. She currently states she has constant pain in her hip that radiates down to her leg and across her groin area. She ambulates with a limp. [facility] Medical History Osteoarthritis (arthritis due to wear and tear of joints) Abdominal hernia Asthma Arthritis COVID-19 vaccine series completed Full dentures Arthritis of left hip Low back pain Liver cyst IDDM (insulin dependent diabetes mellitus) COPD (chronic obstructive pulmonary disease) Elevated cholesterol Surgical History History of total left hip arthroplasty Hx of gastric bypass Hx of ankle fusion Status post insertion of nerve stimulator Hx of colonoscopy Hx of carpal tunnel repair History of back surgery Social History Household Members: Children Household Members Other:: 12 year old granddaughter Housing: House Are you a primary health care legal assistant to a significant other at home: Yes (granddaughter) Do you presently have visiting nurse or other home services: No Comment: pt rings appropriately Patient Tobacco Use Status: Former Tobacco user Tobacco use type: Cigarette Cigarettes Per Day: 60 Years Smoked: quit 15 years ago Second Hand Smoke Exposure: No service: No Review of Systems Const All systems reviewed & are unremarkable except as noted in HPI and below Physical Exam Extrem Other: Right hip: Normal to inspection. She does walk with an antalgic gait. Pain with hip flexion and ROM of hip which extends to the groin. Calf supple, nontender. NVI. Left hip: She can perform active and passive hip flexion without difficulty. No significant discomfort with ROM of hip. Surgical scar is well healed. Calf supple, nontender. NVI. Results Reviewed Results Reviewed: Xrays were obtained in the office today and personally reviewed by me of bilat hip which are negative for obvious acute fracture. Left hip prosthesis intact. Assessment & Plan Assessment & Plan (1) Right hip pain: Code(s): M25.551 - Pain in right hip Category: Medical (2) Periprosthetic fracture around internal prosthetic left hip joint, initial encounter: Code(s): M97.02XA - Periprosthetic fracture around internal prosthetic left hip joint, initial encounter Category: Medical Plan Images were obtained in the office today which showed no sign of acute fracture however I am not able to completely rule out the possibility on the right side given her pain. A CT scan of the right hip was ordered to further evaluate the bony structures. She will use a walker at all times and we will reach out to her with the results of the CT scan once received. She will follow-up with the left hip as previously outlined. Orders: Orders XR hip LT min 2V Today M25.552 - Pain in left hip XR hip RT min 2V Today M25.551 - Pain in right hip CT hip RT wo IV con Today M25.551 - Pain in right hip Patient Instructions: Scribed for Izabel Hoang PA-C, by [facility] medical and lab director, on 10/13/2023 at 2:00 PM EST.? I, Izabel Hoang PA-C, have personally reviewed and agree with the information entered by the scribe. Coding Level of Care Code Global (63242) Diagnoses Right hip pain M25.551 Periprosthetic fracture around internal prosthetic left hip joint, initial encounter M97.02XA
== END 2023-10-13 14:57 | disposition home or self-care (01) ==
PROVIDERS: PCP Hospitalist; Visit Provider Physician Assistant
DX: M25.551 Pain in right hip (principal); M97.02XA Periprosthetic fracture around internal prosthetic left hip joint, initial encounter
CPT/HCPCS: 99024

== ENCOUNTER 2023-10-19 13:46 | Outpatient (REF) | payer OTHER, SELFPAY ==
--- NOTE | ~2023-10-19 | CT_ITS ---
EXAMINATION: CT HIP WITHOUT CONTRAST, RIGHT CLINICAL INFORMATION: Right hip pain. COMPARISON: Radiographs from the same date TECHNIQUE: Multidetector volumetric imaging was obtained through the right hip without contrast material. Multiplanar reformatted images were submitted in coronal and sagittal planes. This CT examination was performed using dose optimization techniques as appropriate, variously including the following: *Automated exposure control *Adjustment of mA and/or kV according to patient size (this includes techniques or standardized protocols for targeted exams where dose is matched to indication/reason for exam; i.e. extremities or head) *Use of iterative reconstruction technique DLP: 219 mGy-cm FINDINGS: Severe, end-stage osteoarthritis of the right hip is characterized by complete posterior superior joint space narrowing, articular cortical remodeling, subchondral cystic change, sclerosis, and marginal osteophytes as well as buttressing the medial femoral neck. There is moderate osteoarthritis in the pubic symphysis and right SI joint. Small right hip joint effusion. Imaged portion of the right innominate bone is intact. Proximal femur is intact. Left total hip prosthesis is only partially included on this study. Status post lower lumbar fusion, partially imaged. Moderate to severe atrophy of the right gluteus medius muscle and more mild atrophy of the gluteus medius. No acute soft tissue findings in this region. No adenopathy. Imaged intrapelvic soft tissues are unremarkable, though assessment is somewhat limited by metal artifact from the left total hip prosthesis. CT/CT hip RT wo IV con IMPRESSION: Severe, end-stage osteoarthritis in the right hip. No acute fracture or malalignment.
== END 2023-10-19 13:47 | disposition home or self-care (01) ==
LOC: HO.CT 13:46
PROVIDERS: PCP Hospitalist; Visit Provider Physician Assistant
DX: M25.551 Pain in right hip (principal)
CPT/HCPCS: 73700

== ENCOUNTER 2023-10-31 15:57 | Outpatient (AMB) | payer OTHER, SELFPAY ==
--- NOTE | 2023-10-31 16:00 | AM.OFFWIN_ITS ---
Intake Vital Signs 10/31/23 16:04 Height 5 ft Weight 110 lb BMI 21.5 BP 126/80 Blood Pressure Location Rt brachial Position Sitting Pulse 69 Pulse Source Pulse Oximeter Temp 98.3 F Temp Source Oral Pulse Oximetry (%) 95 Oxygen Delivery Method Room Air Intake Visit Reasons: chest pain, coughing Intake Note: pt c/o upper abdominal pain, ? hernia and coughing. Ongoing Patient Tobacco Use Status: Former Tobacco user Allergies Sulfa (Sulfonamide Antibiotics) Allergy (Intermediate, Verified 10/31/23 16:12) SWELLING metformin Adverse Reaction (Intermediate, Verified 10/31/23 16:12) diarrhea Do you need a note to return to daycare/school/sports/work: No HPI HPI Comments History of Present Illness Details 67 y/o female patient who presents to [facility] walk in clinic with c/o Epigastric region abdominal pain for few days now. Pt had Bariatric surgery back in 2019 and she has lost ~ 200 pounds. Pt has Epigastric region Hernia and has GI appointment scheduled. She i currently taking Omeprazole, Tums and Peptobismal with some relief. Pt c/o Nausea and vomiting, unable to keep anything down. [facility] Medical History Osteoarthritis (arthritis due to wear and tear of joints) Abdominal hernia Asthma Arthritis COVID-19 vaccine series completed Full dentures Arthritis of left hip Low back pain Liver cyst IDDM (insulin dependent diabetes mellitus) COPD (chronic obstructive pulmonary disease) Elevated cholesterol Surgical History History of total left hip arthroplasty Hx of gastric bypass Hx of ankle fusion Status post insertion of nerve stimulator Hx of colonoscopy Hx of carpal tunnel repair History of back surgery Social History Household Members: Children Household Members Other:: 12 year old granddaughter Housing: House Are you a primary care manager cna to a significant other at home: Yes (granddaughter) Do you presently have visiting nurse or other home services: No Comment: pt rings appropriately Patient Tobacco Use Status: Former Tobacco user Tobacco use type: Cigarette Cigarettes Per Day: 60 Years Smoked: quit 15 years ago Second Hand Smoke Exposure: No service: No Review of Systems Const All systems reviewed & are unremarkable except as noted in HPI and below Physical Exam Vital Signs: Last Vital Signs Temp 98.3 F 10/31/23 16:04 Pulse 69 10/31/23 16:04 BP 126/80 10/31/23 16:04 Pulse Ox 95 10/31/23 16:04 Oxygen Delivery Method Room Air 10/31/23 16:04 BMI result Body Mass Index 21.5 Const General: cooperative and no acute distress Nutritional Appearance: thin Orientation/consciousness: patient oriented x3 Resp Effort & Inspection: normal respiratory effort Cardio Heart sounds: S1 normal heart sound present and S2 normal heart sound present GI Palpation (GI): Soft to palpation, not firm, Tenderness to palpation present (GI), no guarding, not rigid, No hepatosplenomegaly present, Hernia present ventral, no pulsatile masses and No Ascites present Auscultation: Hypoactive bowel sounds present Rectal Exam - Female: deferred Skin General skin exam: no rashes or lesions noted Neuro Other: Walks with a walker General: patient oriented x3 and moves all extremities Psych Speech and movement: Normal speech and movement present Assessment & Plan Assessment & Plan (1) Abdominal pain: Code(s): R10.9 - Unspecified abdominal pain Qualifiers: Abdominal location: epigastric Qualified Code(s): R10.13 - Epigastric pain Plan: Ordered Famotidine Continue on Omeprazole F/U GI as scheduled Epigastric region hernia F/u with PCP as scheduled. Medications: New famotidine 20 mg PO BEDTIME 60 tabs 0RF R10.13 - Epigastric pain Coding Level of Care Code Est Pt Level 3 (91541) Diagnoses Epigastric pain R10.13 Abdominal location: epigastric Time Spent (min) 15
[2023-10-31 16:04] VITALS: BP 126/80; PULSE 69; TEMP 36.8; O2SAT 95; BMI 21.5
== END 2023-10-31 16:52 | disposition home or self-care (01) ==
PROVIDERS: PCP Hospitalist; Visit Provider Nurse Practitioner Family
DX: R10.13 Epigastric pain (principal)
CPT/HCPCS: 99213

== ENCOUNTER 2023-11-02 11:00 | Outpatient (RCR) | payer OTHER, SELFPAY ==
--- NOTE | 2023-10-04 12:02 | MHC.PT.EP ---
[facility] [place] Office [place] Office [place] Office [address] Shane Rubio [address] [phone] F: [phone] F: [phone] F: [phone] F: [phone] Physical Therapy Plan of Care Date of Evaluation: 10/04/23 Date of Surgery: 09/08/2023 Diagnosis: L CHINYERE 08/29/2023 with revision 09/08/2023 Assessment: Patient is a 67 year old female presenting to PT s/p L CHINYERE 08/29/2023 with revision 09/08/2023. She presents today with impairments in pain, ROM, strength, posture, gait mechanics. Pt's current occupation is none, with baseline physical activities including ambulating, stair negotiation, ADLs. 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 Clinical presentation today is most consistent with signs and sx associated with L CHINYERE 08/29/2023 with revision 09/08/2023 and pt will benefit from skilled PT 2 week x 8 weeks to address the following problems and impairments noted upon evaluation: pain, ROM, strength, posture, gait mechanics. These problems limit the patient with the following functional activities: ambulating, stair negotiation, ADLs. The prescribed treatment plan of care is medically necessary. Co-morbidities of DM were identified and taken into considerations of plan of care. Pt was educated on HEP, role of PT, prognosis, POC. Frequency and Duration: The patient will be seen 2 x week x 8 weeks Short Term Goals: Pt will demonstrate ability to recall CHINYERE posterior precautions in 2 visits. Pt will demonstrate L knee MMT strength of 4+/5 in 4 weeks. Pt will demonstrate hip MMT strength at lest 4/5 in 6 weeks. goals may need to be updated once weightbearing status is confirmed Water Quality Specialist Goals: Pt will demonstrate improved LEFI score by 9 points in 8 weeks for improved functional mobility. Pt will demonstrate ability to ambulate with least restrictive device and good mechanics in 8 weeks pending ortho clearance to be weight bearing. Pt will demonstrate ability to negotiate steps with min to no pain in 8 weeks pending ortho clearance for weight bearing. Treatment Plan: Modalities to reduce pain, spasms and effusion. Manual therapy to restore motion and function. Therapeutic exercise to improve strength and flexibility. Neuromuscular re-education for posture and balance. Therapeutic activities to return to functional activities of daily living. Electronically signed by: Emeli Chi, PT, DPT, ATC Please sign and return to therapist. Thank you for your referral.
--- NOTE | 2023-11-06 09:08 | MHC.PT.DC ---
[facility] [place] Office [place] [facility] [place] Office [address] [phone] F: [phone] F: [phone] F: [phone] F: [phone] Physical Therapy Discharge Report Diagnosis: L CHINYERE 08/29/2023 with revision 09/08/2023 Date of Surgery: 09/08/2023 Date of Evaluation: 10/04/23 Date of Discharge: 11/06/23 Treatments to Date: 8 Cancellations to Date: 2 No Shows to Date: 1 Discharge Status: Recommend MD Follow-up Discharge Summary: Pt daughter called stating pt is in the ICU. Pt to be d/c at this time due to change of status. Electronically signed by: Emeli Chi, PT, DPT, ATC Please sign and return to therapist. Thank you for your referral.
== END 2023-11-06 09:09 | disposition home or self-care (01) ==
LOC: HO.PTCHIC 11:00
PROVIDERS: PCP Hospitalist; Visit Provider Physician Assistant
DX: M16.12 Unilateral primary osteoarthritis, left hip (principal)
CPT/HCPCS: 97110; 97162

== ENCOUNTER 2023-11-13 12:05 | Outpatient (AMB) | payer OTHER, SELFPAY ==
[2023-11-13 12:07] VITALS: BMI 21.5
--- NOTE | 2023-11-13 12:07 | MHC.OFFVIS ---
Vital Signs 11/13/23 12:07 Height 5 ft Weight 110 lb BMI 21.5 Intake Visit Reasons: PO - LT CHINYERE 08/29/23 Intake Note: Yanet is a 67 year old female who presents today for a follow up of her left hip s/p left CHINYERE on 09/08/23 Allergies Sulfa (Sulfonamide Antibiotics) Allergy (Intermediate, Verified 11/13/23 12:08) SWELLING metformin Adverse Reaction (Intermediate, Verified 11/13/23 12:08) diarrhea HPI HPI PO - LT CHINYERE 08/29/23: Details: Yanet is a 67 year old female who presents today for a follow up of her left hip s/p left CHINYERE on 09/08/23. Overall she is doing well with respect to her left hip. She was hospitalized however for COVID and subsequent pancreatitis. She still feels weak and is recovering. [facility] Medical History Osteoarthritis (arthritis due to wear and tear of joints) Abdominal hernia Asthma Arthritis COVID-19 vaccine series completed Full dentures Arthritis of left hip Low back pain Liver cyst IDDM (insulin dependent diabetes mellitus) COPD (chronic obstructive pulmonary disease) Elevated cholesterol Surgical History History of total left hip arthroplasty Hx of gastric bypass Hx of ankle fusion Status post insertion of nerve stimulator Hx of colonoscopy Hx of carpal tunnel repair History of back surgery Social History Household Members: Children Household Members Other:: 12 year old granddaughter Housing: House Are you a primary home care aide to a significant other at home: Yes (granddaughter) Do you presently have visiting nurse or other home services: No Comment: pt rings appropriately Patient Tobacco Use Status: Former Tobacco user Tobacco use type: Cigarette Cigarettes Per Day: 60 Years Smoked: quit 15 years ago Second Hand Smoke Exposure: No service: No Physical Exam Vital Signs: BMI result Body Mass Index 21.5 Extrem Other: No pain with passive range of motion left hip. Mild Trendelenburg gait but no gait antalgia. Results Reviewed Results Reviewed: I personally reviewed relevant radiographs. Left revision CHINYERE in position unchanged from prior Assessment & Plan Assessment & Plan (1) Periprosthetic fracture around internal prosthetic left hip joint, initial encounter: Code(s): M97.02XA - Periprosthetic fracture around internal prosthetic left hip joint, initial encounter Category: Medical Plan: Status post revision hip arthroplasty. She is doing well. She is walking. Her pain is minimal. Prosthesis appears stable. This is, however a significant injury and will require an extended period of time with ambulatory limitations. She wants to proceed forward with right hip replacement. I think it is a little premature and aggressive considering she was just hospitalized for COVID and pancreatitis. I recommend she continue walking with a walker and that she come back and see me in 8 weeks. (2) Bilateral hip joint arthritis: Code(s): M16.0 - Bilateral primary osteoarthritis of hip Category: Medical Plan: Worsening pain with radiographic evidence of severe right hip osteoarthritis. Orders: Orders XR pelvis 1-2V 11/13/23 M25.559 - Pain in unspecified hip Coding Level of Care Code Global (54386) Diagnoses Periprosthetic fracture around internal prosthetic left hip joint, initial encounter M97.02XA Bilateral hip joint arthritis M16.0
== END 2023-11-13 14:55 | disposition home or self-care (01) ==
PROVIDERS: PCP Hospitalist; Visit Provider Orthopaedic Surgery
DX: M97.02XA Periprosthetic fracture around internal prosthetic left hip joint, initial encounter (principal); M16.0 Bilateral primary osteoarthritis of hip
CPT/HCPCS: 99024

== ENCOUNTER 2023-11-13 12:05 | Outpatient (REF) | payer OTHER, SELFPAY ==
--- NOTE | ~2023-11-13 | XR_ITS ---
EXAMINATION: XR PELVIS CLINICAL INFORMATION: Pain. COMPARISON: CT right hip 10/19/2023. Radiograph left hip 10/13/2023. TECHNIQUE: AP view of the pelvis. FINDINGS: Decreased bone mineralization. Redemonstration of a left hip arthroplasty with cerclage wires and trochanteric stabilization plate. No evidence of hardware fracture or increased perihardware lucency. Redemonstration of a nondisplaced, oblique fracture through the proximal femur in unchanged alignment and with similar appearance. No acute fracture or dislocation. Redemonstration of severe end-stage degenerative osteoarthritis of the right hip characterize by bone on bone contact, articular cortical remodeling, subchondral cystic changes and marginal osteophytes. Partially seen lumbar fusion hardware and stimulator device overlying the left iliac crest with leads extending superiorly outside of the field of view. Radiopacities are noted filling the collecting system of the right kidney with some additional radiopacities overlying the lower pole of the right kidney. XR/XR pelvis 1-2V IMPRESSION: 1. No acute fracture or dislocation. 2. Redemonstration of a nondisplaced, oblique fracture through the proximal left femur in unchanged alignment. 3. No evidence of hardware failure. 4. Severe end-stage degenerative osteoarthritis of the right hip. 5. Right-sided renal radiopacities could represent a combination of residual contrast and stones, recommend correlation with renal ultrasound as warranted. Electronically signed by: Mag Willis MD 12/07/2023 12:55 PM EDT
== END 2023-11-13 12:06 | disposition home or self-care (01) ==
LOC: HO.HOSX 12:05
PROVIDERS: PCP Hospitalist; Visit Provider Orthopaedic Surgery
DX: M25.559 Pain in unspecified hip (principal); M16.0 Bilateral primary osteoarthritis of hip; M97.02XD Periprosthetic fracture around internal prosthetic left hip joint, subsequent encounter; Z96.642 Presence of left artificial hip joint; R93.421 Abnormal radiologic findings on diagnostic imaging of right kidney; Z98.1 Arthrodesis status
CPT/HCPCS: 72170; 99212

== ENCOUNTER 2023-12-25 08:35 | Outpatient (REF) | payer OTHER, SELFPAY ==
--- NOTE | ~2023-12-25 | XR_ITS ---
EXAMINATION: XR PELVIS CLINICAL INFORMATION: M25.559 - Pain in unspecified hip COMPARISON: X-ray dated November 13, 2023. TECHNIQUE: AP view of the pelvis. FINDINGS: Submitted for interpretation on March 05, 2024. Degenerative changes in the right coxofemoral joint without acute cortical disruption or malalignment. Subchondral cyst formation joint space narrowing and sclerosis, right coxofemoral joint. Metallic prosthesis with an acetabular and femoral component in the left hip. Status post cerclage in the left hip prosthesis. Metallic reservoir from an intraspinal canal stimulator device overlapping the left iliac crest. Status post transpedicle screws at L4-5 bilaterally and L2-3 on the left side. Calcifications overlapping the right hemiabdomen probable in a low position right kidney.. XR/XR pelvis 1-2V IMPRESSION: Osteoarthrosis, right hip. No acute fracture or dislocation. Total left hip arthroplasty procedure with the prosthesis and cerclage. Electronically signed by: Randal Mccoy MD 03/05/2024 07:33 AM MYRNA
== END 2023-12-25 08:36 | disposition home or self-care (01) ==
LOC: HO.HOSX 08:35
PROVIDERS: Visit Provider Orthopaedic Surgery
DX: M25.559 Pain in unspecified hip (principal); M16.11 Unilateral primary osteoarthritis, right hip; I82.409 Acute embolism and thrombosis of unspecified deep veins of unspecified lower extremity; Z96.642 Presence of left artificial hip joint
CPT/HCPCS: 72170; 99212

== ENCOUNTER 2023-12-25 08:56 | Outpatient (AMB) | payer OTHER, SELFPAY ==
--- NOTE | 2023-12-25 09:13 | MHC.OFFVIS ---
Vital Signs 12/25/23 09:14 Height 5 ft Weight 110 lb BMI 21.5 Intake Visit Reasons: OV - LT CHINYERE 08/29/23 Intake Note: Yanet is a 67 year old female who presents today for a follow up of her Left Hip s/p Left CHINYERE 08/29/23. Patient reports she presented to [facility] ED, some time in October, for bilateral leg swelling where she was found to have a blood clot on her left leg. Patient is now taking Eliquis. Otherwise, patient reports no concerns today regarding her left hip. Allergies Sulfa (Sulfonamide Antibiotics) Allergy (Intermediate, Verified 12/25/23 09:18) SWELLING metformin Adverse Reaction (Intermediate, Verified 12/25/23 09:18) diarrhea HPI HPI OV - LT CHINYERE 08/29/23: Details: Yanet is a 67 year old female who presents today for a follow up of her Left Hip s/p Left CHINYERE 08/29/23. Patient reports she presented to [facility] ED, some time in October, for bilateral leg swelling where she was found to have a blood clot on her left leg. Patient is now taking Eliquis. Otherwise, patient reports no concerns today regarding her left hip. She complains of her right hip. She can not walk. She can not walk without a walker. Her pain is all in her right hip. She has no left hip pain. Her leg swelling has decreased. [facility] Medical History Osteoarthritis (arthritis due to wear and tear of joints) Abdominal hernia Asthma Arthritis COVID-19 vaccine series completed Full dentures Arthritis of left hip Low back pain Liver cyst IDDM (insulin dependent diabetes mellitus) COPD (chronic obstructive pulmonary disease) Elevated cholesterol Surgical History History of total left hip arthroplasty Hx of gastric bypass Hx of ankle fusion Status post insertion of nerve stimulator Hx of colonoscopy Hx of carpal tunnel repair History of back surgery Social History Household Members: Children Household Members Other:: 12 year old granddaughter Housing: House Are you a primary memory care director to a significant other at home: Yes (granddaughter) Do you presently have visiting nurse or other home services: No Comment: pt rings appropriately Patient Tobacco Use Status: Former Tobacco user Tobacco use type: Cigarette Cigarettes Per Day: 60 Years Smoked: quit 15 years ago Second Hand Smoke Exposure: No service: No Physical Exam Vital Signs: BMI result Body Mass Index 21.5 Extrem Other: Walks with a walker with right-sided Trendelenburg gait. She has no pain with passive range of motion of her left hip and the incision is well healed. Results Reviewed Results Reviewed: I personally reviewed relevant radiographs. Left CHINYERE in expected post operative position with no hardware complications or evidence of loosening Right hip severe OA Assessment & Plan Assessment & Plan (1) History of revision of total replacement of left hip joint: Code(s): Z96.642 - Presence of left artificial hip joint Category: Medical Plan: This is a 67-year-old woman who was doing well status post left hip revision arthroplasty for fracture. Her primary complaint is her contralateral leg. She should continue to weightbear as tolerated on the left. (2) Osteoarthritis of right hip: Code(s): M16.11 - Unilateral primary osteoarthritis, right hip Category: Medical Plan: Severe right hip osteoarthritis. She would like to fix this surgically but she describes having recently been diagnosed with a blood clot on the left. I would like to get her records and referred to vascular to assess her risk for proceeding forward. (3) DVT (deep venous thrombosis): Code(s): I82.409 - Acute embolism and thrombosis of unspecified deep veins of unspecified lower extremity Category: Medical Plan: I would like to see her records from [facility] but she is on Eliquis currently for what she was told was a left lower extremity deep vein thrombosis. Orders: Orders XR pelvis 1-2V Today M25.559 - Pain in unspecified hip Referrals Vascular Surgery Referral I82.409 - Acute embolism and thrombosis of unspecified deep veins of unspecified lower extremity, M16.11 - Unilateral primary osteoarthritis, right hip, Z96.642 - Presence of left artificial hip joint Coding Level of Care Code Est Pt Level 4 (71035) Diagnoses History of revision of total replacement of left hip joint Z96.642 Osteoarthritis of right hip M16.11 DVT (deep venous thrombosis) I82.409
[2023-12-25 09:14] VITALS: BMI 21.5
== END 2023-12-25 09:35 | disposition home or self-care (01) ==
PROVIDERS: PCP Hospitalist; Visit Provider Orthopaedic Surgery
DX: Z47.1 Aftercare following joint replacement surgery (principal); Z96.642 Presence of left artificial hip joint; M16.11 Unilateral primary osteoarthritis, right hip; I82.409 Acute embolism and thrombosis of unspecified deep veins of unspecified lower extremity
CPT/HCPCS: 99214

== ENCOUNTER → 2023-12-25 09:04 | Outpatient (BNV) | payer OTHER, SELFPAY | PROVIDERS: Visit Provider Radiology Diagnostic Radiology | DX: M16.11 Unilateral primary osteoarthritis, right hip (principal) | CPT/HCPCS: 72170 ==

== ENCOUNTER 2024-01-23 09:22 | Outpatient (AMB) | payer OTHER, SELFPAY ==
--- NOTE | 2024-01-23 09:26 | A.OFFVIS_ITS ---
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 States she was referred due to having a blood clot. They need to verify if it is still there prior to hip surgery. 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 She had actually undergone orthopedic surgery on 08/29/2023. After that she had some bilateral lower extremity swelling it was found to have a DVT on her left lower extremity. Unfortunately this was diagnosed at [facility] and we do not have exact studies for it. Around that time she was also diagnosed with COVID pancreatitis and pneumonia. She was in an extended stay and it was at that time she was diagnosed with a left lower extremity DVT. She had undergone 6 months of anticoagulation with Eliquis. Right hip surgery is planned for within the near future. She now presents for preprocedure vascular evaluation. [facility] Medical History Osteoarthritis (arthritis due to wear and tear of joints) Abdominal hernia Asthma Arthritis COVID-19 vaccine series completed Full dentures Arthritis of left hip Low back pain Liver cyst IDDM (insulin dependent diabetes mellitus) COPD (chronic obstructive pulmonary disease) Elevated cholesterol Surgical History History of total left hip arthroplasty Hx of gastric bypass Hx of ankle fusion Status post insertion of nerve stimulator Hx of colonoscopy Hx of carpal tunnel repair History of back surgery Social History Household Members: Children Household Members Other:: 12 year old granddaughter Housing: House Are you a primary customer care representative to a significant other at home: Yes (eamon stephen) Do you presently have visiting nurse or other home services: No Comment: pt rings appropriately Patient Tobacco Use Status: Former Tobacco user Tobacco use type: Cigarette Cigarettes Per Day: 60 Years Smoked: quit 15 years ago Second Hand Smoke Exposure: No service: No Review of Systems Const All systems reviewed & are unremarkable except as noted in HPI and below Denies chills, Denies daytime sleepiness, Denies fatigue, Denies fever(s), Denies poor appetite, Denies snoring, Denies stops breathing during sleep, Denies weakness, Denies weight gain and Denies weight loss Eyes Denies loss of vision ENT Reports Normal hearing present, Denies dizziness and Denies hearing loss Card Denies chest pain, Denies irregular heart rhythm, Denies claudication, Denies le g edema, Denies lightheadedness, Denies palpitations, Denies dyspnea on exertion and Denies orthopnea Resp Denies cough, Denies excessive phlegm production, Denies dyspnea on exertion, Denies snoring and Denies wheezing GI Denies abdominal pain, Denies hematochezia, Denies change in bowel habits, Denies nausea and Denies vomiting Denies urinary frequency and Denies dysuria Musc Denies arthralgias, Denies muscle weakness, Denies numbness and Denies other Skin/Breast Denies nail changes and Denies rash Neuro Reports Normal hearing present, Denies Abnormal speech present, Denies dizziness, Denies loss of vision, Denies memory loss, Denies numbness and Denies weakness Psych Denies depression and Denies memory loss Endo Denies fatigue and Denies palpitations Mahesh/Lymph Denies easy bruising Aller/Immun Denies wheezing Physical Exam Const General: cooperative, healthy appearing and comfortable Orientation/consciousness: oriented to person, oriented to place and oriented to time HEENT Head: Yes normal to inspection Neck Neck: Yes normal visual inspection Carotids: no bruits Chest Chest palpation & inspection: normal inspection of the chest Resp Effort & Inspection: normal respiratory effort and able to speak in complete sentences Auscultation: clear to auscultation bilaterally, no crackles, no rales, no rhonchi and no wheezes Cardio Rate: regular rate Rhythm: regular rhythm Heart sounds: S1 normal heart sound present and S2 normal heart sound present Bruits: no carotid bruits Peripheral pulses: Peripheral pulses 2+ throughout GI Inspection: Yes normal to inspection Skin Wounds: no wounds Hair: normal Neuro General: oriented to person, oriented to place and oriented to time Cranial nerves: Yes CN's II-XII intact bilaterally and Yes Normal hearing present Cognition (Neuro): normal cognition Speech: No Abnormal speech present Motor exam (neuro): 5/5 motor strength present throughout Extrem Other: venous exam: +1 edema bilateral lower extremities General: No clubbing, No cyanosis and Yes edema Psych Appearance: grossly normal Mental Status: mental status grossly normal Speech and movement: Normal speech and movement present Assessment & Plan Assessment & Plan (1) DVT (deep venous thrombosis): Code(s): I82.409 - Acute embolism and thrombosis of unspecified deep veins of unspecified lower extremity Category: Medical Qualifiers: Affected thrombotic vein of extremity: unspecified vein of extremity Chronicity: chronic DVT location: lower extremity Laterality: left Qualified Code(s): I82.502 - Chronic embolism and thrombosis of unspecified deep veins of left lower extremity Plan: In short patient has a prior history of DVT. In light of her prior history and multiple comorbid conditions she would benefit from an IVC filter in the perioperative period. This will be a retrievable type and so if desired we can remove it in approximately 6 months time after the procedure. She will require IVC filter placement. Risks benefits complications were discussed in detail with the patient. She understood and consented. We will try to schedule her as soon as possible. Thank you for allowing us to assist in her care. Coding Level of Care Code New Pt Level 4 (29959) Diagnoses Chronic deep vein thrombosis (DVT) of left lower extremity, unspecified vein I82.502 Affected thrombotic vein of extremity: unspecified vein of extremity Chronicity: chronic DVT location: lower extremity Laterality: left
== END 2024-01-23 09:59 | disposition home or self-care (01) ==
LOC: HO.HVS 09:22
PROVIDERS: PCP Hospitalist; Visit Provider Surgery Vascular Surgery
DX: I82.502 Chronic embolism and thrombosis of unspecified deep veins of left lower extremity (principal)
CPT/HCPCS: 99204

== ENCOUNTER → 2024-01-23 09:22 | Outpatient (BNVA) | payer OTHER, SELFPAY | PROVIDERS: PCP Hospitalist; Visit Provider Surgery Vascular Surgery | DX: Z01.818 Encounter for other preprocedural examination (principal); I82.502 Chronic embolism and thrombosis of unspecified deep veins of left lower extremity; Z87.891 Personal history of nicotine dependence | CPT/HCPCS: 99202 ==

== ENCOUNTER 2024-02-07 07:17 | Day surgery (SDC) | payer OTHER, SELFPAY ==
[2024-02-07] VITALS (18 sets, daily range): BP systolic 76–153; BP diastolic 35–77; PULSE 40–68; RESP 11–18; TEMP 36.2–36.6; O2SAT 94–98; BMI 24.8
[2024-02-07 08:58] LABS: MANUAL DIFF FLAG NO
[2024-02-07 09:00] LABS: Basophils Absolute Auto 0.1 X10*3/uL (0.0-0.2); Basophils Percent Auto 1.3 % (0-2); Eosinophils Absolute Auto 0.5 X10*3/uL (0.0-0.4); Eosinophils Percent Auto 5.3 % (0-4); Hematocrit 35.9 % (37.0-47.0); Hemoglobin 11.1 g/dl (12.0-16.0); Imm Gran Abs Auto 0.03 X10*3/uL (0.00-0.03); Imm Gran Pct Auto 0.3 % (0.0-0.4); Lymphocytes Absolute Auto 1.7 X10*3/uL (1.2-4.9); Lymphocytes Percent Auto 17.8 % (20-40); Mean Corpuscular HGB Conc 30.9 g/dl (31.0-35.0); Mean Corpuscular Hemoglobin 28.1 pg (27.0-33.0); Mean Corpuscular Volume 90.9 fL (80.0-98.0); Mean Platelet Volume 9.7 fL (9.4-12.3); Monocytes Absolute Auto 1.4 X10*3/uL (0.1-1.2); Monocytes Percent Auto 14.7 % (2-11); Neutrophils Absolute Auto 5.9 x10*3/uL (2.0-8.3); Neutrophils Percent Auto 60.6 % (45-73); Platelet Count 358 X10*3/uL (160-400); Red Blood Count 3.95 X10*6/uL (4.20-5.50); Red Cell Distribution Width 17.7 % (11.0-16.0); White Blood Count 9.7 X10*3/uL (4.8-10.8)
[2024-02-07 09:21] LABS: Blood Urea Nitrogen 18 mg/dL (9-16); Creatinine Clr Calc Pharmacy 37.8; Estimated Glomerular Filt Rate 50
[2024-02-07] MEDS: fentaNYL citrate/PF 100 MCG/2 ML VIAL 25 MCG IVPUSH (10:05)
[2024-02-07] MEDS: Midazolam HCl/PF 2 MG/2 ML VIAL 0.5 MG IVPUSH (10:05)
--- NOTE | 2024-02-07 10:42 | W.PM.OPN ---
Operative Note Operative Note Date of Service: 02/07/24 Narrative: Angiogram report from [facility] Preoperative diagnosis: Deep venous thrombosis Postoperative diagnosis: Same Procedure: 1. Ultrasound-guided right common femoral vein access 2. Inferior vena cavogram 3. Placement of inferior vena cava filter Surgeon:Ramu Osorio M.D., FACS, RPVI [facility] Specialist:None Anesthesia: Local with moderate conscious sedation. Total intraservice moderate sedation time was 20 minutes. I monitored the patient's level of consciousness and physiologic status continuously throughout the procedure. Specimens:none Drains:none Estimated blood loss: Less than 10 ml Implant: Bard Flores retrievable vena cava filter Indications: Pleasant 68-year-old female with a prior history of DVT. She is scheduled to go orthopedic surgery. Due to the risk of inability to anticoagulate prophylactic filter was placed. The patient has signed the informed consent after reviewing risks, complications, benefits, and alternatives previously discussed with the patient. The patient was given the opportunity to ask any additional questions or voice any concerns. All questions were answered to the patient's satisfaction. Procedure in detail: Patient was brought to the angiography suite prior to which a time-out was called for patient identification and site verification. Bilateral groins were prepped and draped in the standard surgical fashion. Under ultrasound guidance right common femoral vein was punctured with micro puncture needle and wire. Subsequently a precision 5 Gibraltarian sheath was then placed. Bentson wire was advanced to the level of the vena cava. Vena cavogram was then undertaken through the 5 Gibraltarian sheath. This was a baseline study to define the variant anatomy, caval size, location and number of renal veins, and to evaluate for ileo caval thrombus. Under direct fluoroscopic guidance we exchanged out the 5 Gibraltarian sheath for the Bard in Emma sheath. We brought the filter into position. This was then subsequently deployed. The inner cannula was then removed. Through the sheath a hand injection was performed to assess filter position. Once this was accomplished the sheath was then removed, and hemostasis was achieved with 10 minutes of direct compression. No immediate complications occurred and the patient was returned to the recovery suite with no complications Interpretation of films: 1. Ultrasound demonstrates appropriate femoral vein puncture. Image of which was saved. 2. There was no ileal caval thrombus noted 3. There are single renal veins bilaterally and the IVC is normal in caliber. There is no aberrant anatomy. 4. The filter was deployed appropriately and position below the lowest renal vein. Conclusion: 1. Successful placement of Bard Flores IVC filter 2. Anticoagulation status: Resume regular anticoagulation as indicated 4 hours post filter placement This note is constructed using voice recognition software. While every effort has been made to ensure accuracy, air operations manager errors may have been included. Thank you for allowing me to participate in the care of your patient. Yours sincerely, Ramu Osorio MD, FACS, R.P.V.I.
== END 2024-02-07 12:44 | disposition home or self-care (01) ==
PROVIDERS: PCP Hospitalist; Visit Provider Surgery Vascular Surgery
DX: I82.502 Chronic embolism and thrombosis of unspecified deep veins of left lower extremity (principal); M16.12 Unilateral primary osteoarthritis, left hip; E11.9 Type 2 diabetes mellitus without complications; J44.9 Chronic obstructive pulmonary disease, unspecified; E78.00 Pure hypercholesterolemia, unspecified; Z79.01 Long term (current) use of anticoagulants; Z79.51 Long term (current) use of inhaled steroids; Z79.4 Long term (current) use of insulin; Z88.2 Allergy status to sulfonamides; Z88.8 Allergy status to other drugs, medicaments and biological substances; Z87.891 Personal history of nicotine dependence
CPT/HCPCS: 36415; 37191; 82565; 84520; 85025; 99152; C1769; C1880; C1894; J1644; J2250; J2310; J3010; Q9967

== ENCOUNTER → 2024-02-07 07:17 | Outpatient (BNV) | payer OTHER, SELFPAY | PROVIDERS: PCP Hospitalist; Visit Provider Surgery Vascular Surgery | DX: I82.409 Acute embolism and thrombosis of unspecified deep veins of unspecified lower extremity (principal) | CPT/HCPCS: 37191; 99152 ==

== ENCOUNTER 2024-03-01 12:09 | Outpatient (AMB) | payer OTHER, SELFPAY ==
--- NOTE | 2024-03-01 12:11 | MHC.OFFWIV ---
Intake Vital Signs 03/01/24 12:16 Weight 126 lb 5 oz BP 130/70 Blood Pressure Location Rt brachial Position Sitting Pulse 76 Pulse Source Pulse Oximeter Pulse Oximetry (%) 97 Oxygen Delivery Method Room Air Intake Visit Reasons: EP Cut on let, stitches? Intake Note: Patient here for cut on left leg, states she hit her leg on car door. Patient Tobacco Use Status: Former Tobacco user Allergies Sulfa (Sulfonamide Antibiotics) Allergy (Intermediate, Verified 03/01/24 12:15) SWELLING metformin Adverse Reaction (Intermediate, Verified 03/01/24 12:15) diarrhea HPI HPI Comments History of Present Illness Details Patient is a 68-year-old female here with her daughter with a laceration to her left lower extremity which occurred just prior to arrival to this clinic. She since she was going through the door and the door caught her leg. She is on a blood thinner, Eliquis. She did not clean it, they state they just applied a Band-Aid and came straight to the clinic. Her last tetanus was 12/14/2022. [facility] Medical History Osteoarthritis (arthritis due to wear and tear of joints) Abdominal hernia Asthma Arthritis COVID-19 vaccine series completed Full dentures Arthritis of left hip Low back pain Liver cyst IDDM (insulin dependent diabetes mellitus) COPD (chronic obstructive pulmonary disease) Elevated cholesterol Surgical History History of total left hip arthroplasty Hx of gastric bypass Hx of ankle fusion Status post insertion of nerve stimulator Hx of colonoscopy Hx of carpal tunnel repair History of back surgery Social History Household Members: Children Household Members Other:: 12 year old granddaughter Housing: House Are you a primary critical care physician assistant to a significant other at home: Yes (granddaughter) Do you presently have visiting nurse or other home services: No Comment: pt rings appropriately Patient Tobacco Use Status: Former Tobacco user Tobacco use type: Cigarette Cigarettes Per Day: 60 Years Smoked: quit 15 years ago Second Hand Smoke Exposure: No service: No Review of Systems Const All systems reviewed & are unremarkable except as noted in HPI and below Physical Exam Vital Signs: Last Vital Signs Pulse 76 03/01/24 12:16 BP 130/70 03/01/24 12:16 Pulse Ox 97 03/01/24 12:16 Oxygen Delivery Method Room Air 03/01/24 12:16 Const General: cooperative, healthy appearing, comfortable, no acute distress and well developed Orientation/consciousness: patient oriented x3 Limitations: no limitations HEENT Head: Yes normal to inspection Neck Neck: Yes normal visual inspection and Yes supple Neuro General: patient oriented x3 Extrem Other: Left lower extremity anterior bustamante has a linear 2 cm laceration, superficial Office Procedures Laceration Repair Procedure Location: left anterior lower extremity EMLA: 2% Lidocaine Text: After discussion of risk and benefits, verbal informed consent was obtained. The area was cleaned, prepped, and draped using sterile technique. The wound was debrided of any foreign material or devitalized tissue. Wound edges were approximated and closed using 3 4-0 monofilament nylon sutures were applied. Standard wound dressing was applied. Wound care instructions were given. The patient tolerated the procedure well. The patient was instructed to return for increased redness or red streaking, pain, swelling, pus, fevers, chills, or any other signs or symptoms of infection or worsening. DAC Patient was instructed to return for suture removal in 8-10 days. Assessment & Plan Assessment & Plan (1) Laceration of lower extremity: Code(s): S81.819A - Laceration without foreign body, unspecified lower leg, initial encounter Qualifiers: Encounter type: initial encounter Laterality: left Qualified Code(s): S81.812A - Laceration without foreign body, left lower leg, initial encounter Plan: Sutures applied, wound care instructions given and instructed patient to return in 8 to 10 days for suture removal. Coding Level of Care Code New Pt Level 4 (71662) Diagnoses Laceration of left lower extremity, initial encounter S81.812A Encounter type: initial encounter Laterality: left
[2024-03-01 12:16] VITALS: BP 130/70; PULSE 76; O2SAT 97
== END 2024-03-01 13:50 | disposition home or self-care (01) ==
PROVIDERS: PCP Hospitalist; Visit Provider Physician Assistant
DX: S81.812A Laceration without foreign body, left lower leg, initial encounter (principal)

== ENCOUNTER → 2024-03-01 12:09 | Outpatient (BNVA) | payer OTHER, SELFPAY | PROVIDERS: PCP Hospitalist; Visit Provider Physician Assistant | DX: S81.812A Laceration without foreign body, left lower leg, initial encounter (principal) | CPT/HCPCS: 12001; 99202 ==

== ENCOUNTER 2024-03-08 10:04 | Outpatient (AMB) | payer OTHER, SELFPAY ==
--- NOTE | 2024-03-08 10:12 | MHC.OFFWIV ---
Intake Vital Signs 03/08/24 10:13 BP 120/78 Pulse 58 Pulse Source Pulse Oximeter Pulse Oximetry (%) 99 Oxygen Delivery Method Room Air Intake Visit Reasons: EP stitch removal Intake Note: Patient here to have stitches removed from left leg. Patient Tobacco Use Status: Former Tobacco user Allergies Sulfa (Sulfonamide Antibiotics) Allergy (Intermediate, Verified 03/08/24 10:12) SWELLING metformin Adverse Reaction (Intermediate, Verified 03/08/24 10:12) diarrhea Do you need a note to return to daycare/school/sports/work: No HPI HPI Comments History of Present Illness Details History of Present Illness The patient is a 68-year-old female presenting with a recent laceration of the leg for suture removal. The injury was initially addressed one week ago when the patient came in with her daughter and granddaughter. During the initial visit, steri strips were attempted but were ultimately insufficient, necessitating sutures. The patient denies any current pain, drainage, fevers, or signs of infection such as redness or streaking. Physical Exam General: Cooperative, healthy appearing, comfortable, no acute distress and well developed Orientation: Patient oriented x3 Limitations: wheelchair Head: Normal to inspection Ears: Hearing grossly normal bilaterally Nose: Normal Nxternal nose present Face and sinus: ormal facial exam Eyes: Appearance normal, both eyes and all related structures Neck: Normal visual inspection and Yes full ROM Respiratory: Normal respiratory effort and able to speak in complete sentences Skin: No rashes or lesions noted Neuro: Patient oriented x3 Extremities: Normal to inspection, left lower extremity, 3 sutures removed, 1.25cm linear well healing wound, no drainage noted, no erythema or warmth noted. [facility] Medical History Osteoarthritis (arthritis due to wear and tear of joints) Abdominal hernia Asthma Arthritis COVID-19 vaccine series completed Full dentures Arthritis of left hip Low back pain Liver cyst IDDM (insulin dependent diabetes mellitus) COPD (chronic obstructive pulmonary disease) Elevated cholesterol Surgical History History of total left hip arthroplasty Hx of gastric bypass Hx of ankle fusion Status post insertion of nerve stimulator Hx of colonoscopy Hx of carpal tunnel repair History of back surgery Social History Household Members: Children Household Members Other:: 12 year old granddaughter Housing: House Are you a primary medical care administrator to a significant other at home: Yes (granddaughter) Do you presently have visiting nurse or other home services: No Comment: pt rings appropriately Patient Tobacco Use Status: Former Tobacco user Tobacco use type: Cigarette Cigarettes Per Day: 60 Years Smoked: quit 15 years ago Second Hand Smoke Exposure: No service: No Review of Systems Const All systems reviewed & are unremarkable except as noted in HPI and below Assessment & Plan Assessment & Plan (1) Visit for suture removal: Code(s): Z48.02 - Encounter for removal of sutures Plan: Plan - Proceed with removal of sutures as planned with assessment ensuring the healing process has progressed appropriately before doing so. Removed 3 sutures, applied bacitracin and bandaid. - Advise the patient on signs of infection to monitor, including redness, swelling, or fever, despite no current signs post-suture removal. - No further follow-up is planned unless complications arise or symptoms develop. Patient was informed and verbally consented to the use of an ambient scribe for clinic note documentation during this visit. Coding Level of Care Code New Pt Level 3 (04135) Diagnoses Visit for suture removal Z48.02
[2024-03-08 10:13] VITALS: BP 120/78; PULSE 58; O2SAT 99
== END 2024-03-08 10:30 | disposition home or self-care (01) ==
PROVIDERS: PCP Hospitalist; Visit Provider Physician Assistant
DX: Z48.02 Encounter for removal of sutures (principal)

== ENCOUNTER → 2024-03-08 10:04 | Outpatient (BNVA) | payer OTHER, SELFPAY | PROVIDERS: PCP Hospitalist; Visit Provider Physician Assistant | DX: Z48.02 Encounter for removal of sutures (principal) | CPT/HCPCS: 99212 ==

== ENCOUNTER 2024-04-09 10:14 | Outpatient (REF) | payer OTHER, SELFPAY ==
--- NOTE | ~2024-04-09 | XR_ITS ---
EXAMINATION: XR HIP 2 OR MORE VIEWS RIGHT HISTORY: M25.559 - Pain in unspecified hip COMPARISON: Comparison is made with the prior examination of the pelvis dated 12/25/2023. FINDINGS: 2 AP views of the pelvis and two views of the right hip are submitted. The bones are osteopenic. There is no fracture or dislocation. Again seen is severe osteoarthritis of the right hip with joint space narrowing, subchondral sclerosis, osteophyte formation, and remodeling of the femoral head. The patient is status post left total hip arthroplasty. There is fusion of the lower lumbar spine. A battery pack overlies the left iliac wing with leads extending superiorly. Again seen are soft tissue calcifications in the right lower quadrant. XR/XR hip RT min 2V IMPRESSION: Severe osteoarthritis of the right hip. Electronically signed by: Cr Hays MD 04/10/2024 03:58 PM MYRNA
== END 2024-04-09 10:15 | disposition home or self-care (01) ==
LOC: HO.HOSX 10:14
PROVIDERS: PCP Hospitalist
DX: Z01.818 Encounter for other preprocedural examination (principal); M16.11 Unilateral primary osteoarthritis, right hip
CPT/HCPCS: 73502; 99212

== ENCOUNTER 2024-04-09 12:29 | Outpatient (AMB) | payer OTHER, SELFPAY ==
--- NOTE | 2024-04-09 12:42 | A.OFFVIS_ITS ---
Intake Visit Reasons: R Hip Pain S/P Fall 01/2024-surg R CHINYERE 04/2024 Intake Note: Patient presents to the office today for her nurse navigator visit. During that visit she reported that she sustained a fall onto the right hip near [place] and since then she has been unable to weightbear or ambulate. She has been using a wheelchair. Allergies Sulfa (Sulfonamide Antibiotics) Allergy (Severe, Verified 04/09/24 10:56) throat swelling metformin Adverse Reaction (Intermediate, Verified 04/09/24 10:56) diarrhea semaglutide [From Ozempic] Adverse Reaction (Intermediate, Verified 04/09/24 10:56) pancreatitis HPI HPI R Hip Pain S/P Fall 01/2024-surg R CHINYERE 04/2024: Details: Ms. King is a 68-year-old female who presents to the office today for her nurse navigation visit for her upcoming right total hip arthroplasty scheduled in April of this year with Dr. Ruiz. She reported to the nurse navigator that she sustained a fall onto the right hip near [place] and has had increased pain and unable to weightbear. She has not had imaging after the fall. She presented to the office today in a wheelchair. [facility] Medical History (Updated 04/03/24 @ 09:50 by Michelle Guerra, VILMA) History of kidney infection (~08/2023) DVT (deep venous thrombosis) Diabetes Elevated blood pressure reading with diagnosis of hypertension Abdominal hernia Asthma Arthritis Osteoarthritis (arthritis due to wear and tear of joints) COVID-19 vaccine series completed Full dentures Arthritis of left hip Low back pain Liver cyst COPD (chronic obstructive pulmonary disease) Elevated cholesterol Surgical History (Updated 04/01/24 @ 14:49 by Michelle Guerra, RN) S/P insertion of IVC (inferior vena caval) filter (02/07/24) History of total left hip arthroplasty (08/29/23) Hx of gastric bypass Hx of ankle fusion Status post insertion of nerve stimulator Hx of colonoscopy Hx of carpal tunnel repair History of back surgery Social History (Updated 04/03/24 @ 09:47 by Michelle Guerra, RN) Household Members: None Housing: Condominium Are you a primary clinical manager home care to a significant other at home: No Do you presently have visiting nurse or other home services: Yes (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) 75 years or older and lives alone: No Comment: aware of trip hazards Patient Tobacco Use Status: Former Tobacco user Tobacco use type: Cigarette Cigarettes Per Day: 60 Years Smoked: quit 15 years ago Second Hand Smoke Exposure: No service: No Review of Systems Const All systems reviewed & are unremarkable except as noted in HPI and below Physical Exam Const General: cooperative, healthy appearing and no acute distress Resp Effort & Inspection: normal respiratory effort and able to speak in complete sentences Cardio Rate: regular rate Peripheral pulses: Peripheral pulses 2+ throughout Skin Lesions: no lesions Rashes: no rashes Extrem Other: Right hip: Unable to tolerate internal external rotation with reports of groin pain. Able to perform straight leg raise with radiation of pain into the buttock and groin. Able to dorsiflex and plantar flex. Assessment & Plan Assessment & Plan (1) Osteoarthritis of right hip: Code(s): M16.11 - Unilateral primary osteoarthritis, right hip Category: Medical Plan Ms. King is a 68-year-old female who presents to the office today for her nurse navigation visit for her upcoming right total hip arthroplasty scheduled on 05/01/[address] Ruiz. She reported to the nurse navigator that she sustained a fall onto the right hip near [facility] and has had increased pain and unable to weightbear. She has not had imaging after the fall. She presented to the office today in a wheelchair. While in the office today, there was concern as the patient is unable to weightbear or ambulate and therefore x-rays were obtained. X-rays were reviewed in the office today by me, reveal no obvious fracture or dislocation. She will continue to attend physical therapy prehab prior to surgery. The case will be discussed with Dr. Ruiz as the patient is currently not ambulating and her follow-up appointment will be on 04/25/2024 for her preoperative appointment, sooner if needed. X-rays obtained in the office today of the right hip and pelvis were reviewed by me and negative for any obvious acute fracture dislocation. Orders: Orders XR hip RT min 2V Today M25.559 - Pain in unspecified hip Coding Level of Care Code Est Pt Level 3 (76938) Diagnoses Osteoarthritis of right hip M16.11
== END 2024-04-09 12:29 | disposition home or self-care (01) ==
LOC: HO.HOS 12:29
PROVIDERS: PCP Hospitalist; Visit Provider Physician Assistant
DX: M16.11 Unilateral primary osteoarthritis, right hip (principal)
CPT/HCPCS: 99213

== ENCOUNTER 2024-04-23 08:54 | Outpatient (REF) | payer OTHER, SELFPAY ==
--- OUTSIDE RECORDS SUMMARY | 2024-04-24 10:04 | XMS_ITS ---
Author Organization [facility] Address [address] [address] Care Team Providers Care Assistant Account Manager Name Role Phone Ayan Clayton Primary Care Provider SKYLAR Perez [phone] REASON FOR VISIT 3 month follow up Encounters Encounter Location Date Provider Diagnosis [facility] [address] [address] 05/05/2023 SKYLAR HANNA Plan Of Treatment No Information Progress Notes * LUISYanetDOB:1955 (68 yo F)Acc No.[id number]:05/05/2023 Progress Note Patient:?Matt KINGsa Provider:?Skylar Hanna DPM :1955???Age:67 Y???Sex:Female D ate:05/05/2023 Address[place] [id number] Pcp:Ayan Clayton Subjective: * Chief Complaints: * ???1. 3 month follow up. * Medical History:? Objective: * Vitals:? Assessment: Plan: * Treatment: * Billing Information: * Visit Code:? * Procedure Codes:? * Electronic signature of RHIANNON HANNA D.P.M on 04/24/2024 at 10:04 AM EST Sign off status: Pending * Provider:Shirley Hanna DPM Date:? 05/05/2023 Generated for Matti carmella/Grabiel/eTransmitting on:?04/24/2024 10:04 AM EST
--- OUTSIDE RECORDS SUMMARY | 2024-04-24 10:04 | XMS_ITS ---
Author Organization [facility] Address [address] [place] [address] Care Team Providers Care Senior Marketing Data Analyst Name Role Phone LENNIE ALFARO Primary Care Provider Allergies Allergen (clinical drug ingredient) Drug/Non Drug Allergy documented on EMR Reaction Allergy Type Onset Date Status semaglutide Ozempic pancreatitis Drug Allergy Ac tive metformin Metformin diarrhea Drug Allergy Active Substance with sulfonamide structure and antibacterial mechanism of action (substance) Sulfa Antibiotics anaphylaxis Drug Allergy Active REASON FOR VISIT 1 month f/u Medications Medication SIG (Take, Route, Frequency, Duration) Notes Start Date End Date Status Enoxaparin Sodium 60 MG/0.6ML as directed Injection once a day 09/25/2023 Not-Taking Aspirin 81 MG 1 tablet Orally Once a day Not-Taking Lisinopril 2.5 MG 1 tablet Orally Once a day 09/25/2023 Not-Taking Ozempic (2 MG/DOSE) 8 MG/3ML 2 mg Subcutaneous once a week for 30 days Not-Taking Paxlovid (300/100) 20 x 150 MG & 10 x 100MG 3 tablets Orally Twice a day for 5 days 11/02/2023 Not-Taking Amoxicillin-Pot Clavulanate 500-125 MG 1 tablet Orally every 12 hrs for 7 days 11/17/2023 Not-Taking Diclofenac Sodium 3 % 1 application Externally Twice a day for 30 days 02/01/2024 Not-Taking Tylenol 8 Hour Arthritis Pain 650 MG 2 tablets as needed Orally every 8 hrs for 30 days 02/01/2024 Not-Taking Vancomycin HCl 125 MG 1 capsule Orally every 6 hours 12 days Not-Taking hydrOXYzine HCl 50 MG 1 tablet Orally Twice a day Not-Taking Multivitamin - 1 tablet Orally Once a day Not-Taking Ondansetron 4 MG 1 tablet on the tongue and allow to dissolve Orally twice daily for 30 days 09/25/2023 Not-Taking Zetia 10 MG 1 tablet Orally Once a day for 30 days 10/11/2023 Not-Taking Vitamin D3 25 MCG (1000 UT) 1 tablet Orally Once a day for 30 days Not-Taking Docusate Sodium 100 mg TAKE ONE CAPSULE BY MOUTH TWICE DAILY for 30 Not-Taking DULoxetine HCl 30 MG 1 capsule Orally Once a day for 30 days 02/01/2024 Active Wheelchair - Wheelchair with legs as directed; DX: M15.9, M51.35 for 30 days 03/29/2024 Active Thiamine HCl 100 MG 1 tablet Orally Once a day Not-Taking MiraLax 17 GM 1 packet mixed with 8 ounces of fluid Orally twice a day as needed Not-Taking Vitamin B12 1000 MCG 1 tablet Orally Once a day Not-Taking Tylenol Arthritis Pain Active Atorvastatin Calcium 20 MG 1 tablet Orally Once a day for 90 days Active B Complex - 1 TAB Orally DAILY for 90 days one daily Active Apixaban 5 MG 1 tablet Orally twice a day for 30 days Active Lidocaine 4 % 1 patch as needed Externally Once a day for 30 days 02/01/2024 Active Ferrous Sulfate 325 (65 Fe) MG 1 tablet Orally Once a day for 30 days 11/20/2023 Active Cetirizine HCl 10 MG 1 tablet Orally Once a day for 90 days Active Diclofenac Sodium 1 % as directed Externally 2 times a day for 30 days 2 gms 12/07/2023 Active Naloxone HCl 4 MG/0.1ML as directed Nasally prn for 30 days 01/04/2024 Active Sodium Bicarbonate 650 MG 1 TAB Orally 2 TIMES A DAY for 30 days Active Omeprazole 20 MG 1 capsule 30 minutes before morning meal Orally Once a day for 30 days 09/25/2023 Active Fluticasone-Salmeter ol 230-21 MCG/ACT 2 puffs Inhalation Twice a day Active Nystatin 390815 UNIT/GM 1 application Externally Twice a day along with the nystatin cream Active Acetaminophen Extra Strength 500 MG 2 tablet as needed Orally every 6 hrs Active Ventolin HFA 108 (90 Base) MCG/ACT 1 puff as needed Inhalation every 4 hrs Active Complex B-100 - as directed Orally 03/06/2024 Active tiZANidine HCl 4 MG 1 tablet at bedtime as needed Orally Once a day Active Albuterol Sulfate (2.5 MG/3ML) 0.083% 3 ml as needed Inhalation every 6 hrs Active Deep Sea Nasal [place] 0.65 % 2 sprays in each nostril as needed Nasally every 2 hrs Active oxyCODONE HCl 10 MG 1 tablet Orally 3 times a day for 14 days Partial Fill upon Patient Request Partial Fill Upon Patient Request 04/24/2024 Active Morphine Sulfate ER 15 MG 1 tablet Orally once a day for 28 days Partial Fill upon Patient Request Partial Fill Upon Patient Request 04/24/2024 Active Vital Signs Temperature 97.4 degrees Fahrenheit 04/24/19 25 Oximetry 90 % 04/24/2024 Heart Rate 67 /min 04/24/2024 Blood pressure systolic 110 mm Hg 04/24/19 25 Blood pressure diastolic 72 mm Hg 025 Weight 133.0 lbs 04/24/2024 BMI 25.97 kg/m2 04/24/2024 Height 60 in 04/24/2024 Encounters Encounter Location Date Provider Diagnosis [facility] [address] [facility] [address] [place] [id number] 04/24/2024 LENNIE ALFARO Chronic pain syndrom e G89.4 ; Polyosteoarthritis, unspecified M15.9 and Other intervertebral disc degeneration, thoracolumbar region M51.35 Assessments Encounter Date Diagnosis (ICD Code) Assessment Notes Treatment Notes Treatment Clinical Notes Section Notes 04/24/2024 Chronic pain syndrome (ICD-10 - G89.4) Ron is 68 years old pleasant lady with insulin-dependent DM type II and follow-up with endocrinology, hyperlipidemia, left lower extremity DVT and she follows up with adjunct faculty, chronic kidney disease and 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 She is here today for chronic pain management Chronic pain management. Chronic pain secondary to degenerative disc disease. Prognosis: Mild to moderate Medical necessity supported by H&P, imaging and testing [place] pain treatment protocol completed. Yes Chronic opioid/pain maintenance. This patient request for ongoing pain management using chronic opioids have met the compliance requirement today satisfying the Federation of state medical board recommendations and guidelines for judicious use, supervised opioid dispensing. Patient agreed to a personal interview for renewal for further opioids as planned at next scheduled visit or sooner if conditions change. Medication contract agreement and compliance reinforced. All risks and benefits associated with opioid neutralization, safe use and storage are described in great detail and patient voluntarily accepts all obligations. Patient is at moderate risk of opioid misuse based on ORT. Toxicology and PARAMEDIC SUPERVISOR monitoring done and will follow protocol set forth by practice. As such controlled substance use requires judicious monitoring to access patient compliance with mutually agreed upon controlled substance use agreement which has been signed by the patient and initiation of controlled substance prescribing. Therefore following state, Federal, [facility] guidelines for controlled substance testing policies. This patient has been assessed on the basis of psychometric risk tool, PARAMEDIC SUPERVISOR monitoring, toxicology test results. Comorbid conditions may contribute to her compliance with chronic ongoing pain condition/function al impairment. Urine toxicology screen not done on this visit Liver function tests are normal Prescription monitoring program reviewed Opioid risk tool [ ORT] for narcotic abuse used to evaluate risk continue current regimen of oxycodone 10 mg every 8 hours. She was on morphine sulfate 15 mg extended release which needs prior authorization. She may take oxycodone 10 mg 1 tablet every 6 hours if morphine sulfate is not covered Counseling done. 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 She is here today for chronic pain management Chronic pain management. Chronic pain secondary to degenerative disc disease. Prognosis: Mild to moderate Medical necessity supported by H&P, imaging and testing [place] pain treatment protocol completed. Yes Chronic opioid/pain maintenance. This patient request for ongoing pain management using chronic opioids have met the compliance requirement today satisfying the Federation of state medical board recommendations and guidelines for judicious use, supervised opioid dispensing. Patient agreed to a personal interview for renewal for further opioids as planned at next scheduled visit or sooner if conditions change. Medication contract agreement and compliance reinforced. All risks and benefits associated with opioid neutralization, safe use and storage are described in great detail and patient voluntarily accepts all obligations. Patient is at moderate risk of opioid misuse based on ORT. Toxicology and PARAMEDIC SUPERVISOR monitoring done and will follow protocol set forth by practice. As such controlled substance use requires judicious monitoring to access patient compliance with mutually agreed upon controlled substance use agreement which has been signed by the patient and initiation of controlled substance prescribing. Therefore following state, Federal, [facility] guidelines for controlled substance testing policies. This patient has been assessed on the basis of psychometric risk tool, PARAMEDIC SUPERVISOR monitoring, toxicology test results. Comorbid conditions may contribute to her compliance with chronic ongoing pain condition/function al impairment. Urine toxicology screen not done on this visit Liver function tests are normal Prescription monitoring program reviewed Opioid risk tool [ ORT] for narcotic abuse used to evaluate risk continue current regimen of oxycodone 10 mg every 8 hours. She was on morphine sulfate 15 mg extended release which needs prior authorization. She may take oxycodone 10 mg 1 tablet every 6 hours if morphine sulfate is not covered Counseling done. 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 She is here today for chronic pain management Chronic pain management. Chronic pain secondary to degenerative disc disease. Prognosis: Mild to moderate Medical necessity supported by H&P, imaging and testing [place] pain treatment protocol completed. Yes Chronic opioid/pain maintenance. This patient request for ongoing pain management using chronic opioids have met the compliance requirement today satisfying the Federation of state medical board recommendations and guidelines for judicious use, supervised opioid dispensing. Patient agreed to a personal interview for renewal for further opioids as planned at next scheduled visit or sooner if conditions change. Medication contract agreement and compliance reinforced. All risks and benefits associated with opioid neutralization, safe use and storage are described in great detail and patient voluntarily accepts all obligations. Patient is at moderate risk of opioid misuse based on ORT. Toxicology and PARAMEDIC SUPERVISOR monitoring done and will follow protocol set forth by practice. As such controlled substance use requires judicious monitoring to access patient compliance with mutually agreed upon controlled substance use agreement which has been signed by the patient and initiation of controlled substance prescribing. Therefore following state, Federal, [facility] guidelines for controlled substance testing policies. This patient has been assessed on the basis of psychometric risk tool, PARAMEDIC SUPERVISOR monitoring, toxicology test results. Comorbid conditions may contribute to her compliance with chronic ongoing pain condition/function al impairment. Urine toxicology screen not done on this visit Liver function tests are normal Prescription monitoring program reviewed Opioid risk tool [ ORT] for narcotic abuse used to evaluate risk continue current regimen of oxycodone 10 mg every 8 hours. She was on morphine sulfate 15 mg extended release which needs prior authorization. She may take oxycodone 10 mg 1 tablet every 6 hours if morphine sulfate is not covered Counseling done. Plan Of Treatment Medication Medication Name Sig Start Date Stop Date Notes oxyCODONE HCl 10 MG 1 tablet Orally 3 times a day for 14 days 04/24/2024 Partial Fill upon Patient Request Partial Fill Upon Patient Request Morphine Sulfate ER 15 MG 1 tablet Orally once a day for 28 days 04/24/2024 Partial Fill upon Patient Request Partial Fill Upon Patient Request Next Appt Details Follow Up: 6 Weeks, Reason: Provider Name:Aide bond, 06/05/2024 10:15:00 AM, [address] [place] [address], [id number], Progress Notes * Yanet KINGDOB:1955 (68 yo F)Acc No.[id number]:04/24/2024 Progress Notes Patient:?LUIS Yanet Provider:?LENNIE ALFARO MD :1955???Age:68 Y???Sex:Female D ate:04/24/2024 Address:[address] [place] [address], [id number] Subjective: * Chief Complaints: * ???1 month f/u * HPI: ???Internal Medicine:?Yanet is a 68-year-old female with a pmhx of T2DM, HLD, Asthma, Vitamin D deficiency is here for follow-up. She he is going to have right hip surgery on May 01, 2024 at [facility] by Dr. Ruiz.? She uses a walker at home and she uses a wheelchair outside home.? She?reported?left hip pain radiating to the right hip, experiencing limited mobility. She has gain weight, likely due to decreased activity. She is currently on morphine and oxycodone for pain management, with a new prescription sent to the pharmacy despite having an adequate supply of oxycodone. No history of smoking or alcohol use. * ROS:?General/Constitutional:?Overall health?Good.?Change in appetite?denies.?Chills?denies.?Fever?denies.?Sleep disturbance?denies.?Weight gain?admits, 8?pounds.?Neurologic:?Difficulty speaking?denies.?Dizziness?denies.?Gait abnormality?denies.?Headache?denies.?Loss of strength?denies.?Memory loss?denies.?Seizures?denies.?Tingling/Numbness?denies .?Ophthalmologic:?Blurred vision?denies.?Discharge?denies.?Dry eye?denies.?Red eye?denies.?ENT:?Change in Voice?Denies.?Cold Symptoms?Denies.?Cough?Denies.?Dizziness?Denies.?Nasal Congestion?Denies.?Otalgia?Denies.?postnasal drip?Denies.?Blocked ear?denies.?Nosebleed?denies.?Snoring?denies.?Cardiovascular:?Diaphoresis?Denies.?Pedal Edema?Denies.?PND (Paroxsymal nocturnal dyspnea)?Denies.?Chest pain?denies.?Difficulty laying flat?denies.?Dyspnea on exertion?denies.?Heart murmur?denies.?Orthopnea?denies.?Respiratory:?Snoring?denies.?Asthma?denies.?Cough?denies.?Shortness of breath with exertion?denies.?Sputum production?denies.?Wheezing?denies.?Gastrointestinal:?Change in bowel habits?denies.?Constipation?denies.?Decreased appetite?denies.?Diarrhea?denies.?Heartburn?denies.?Musculoskeletal:?tingling/numbness?Denies.?myalgias?Denies.?Joint Swelling?Denies.?extremeties?normal.?Arthritis?,admits.?Back problems?,admits.?Carpal tunnel?denies.?Joint stiffness?denies.?Muscle aches?denies.?Endocrine:?Bowel Changes?Denies.?Breast Discharge?Denies.?poor libido?Denies.?Cold intolerance?denies.?Excessive sweating?denies.?Excessive thirst?denies.?Frequent urination?denies.?Thyroid problems?denies.?Skin:?Bruising?Denies.?Eczema?denies.?Hair changes?denies.?Rash?denies.?Skin lesion(s)?denies.?Psychiatric:?Anxiety?denies.?Depressed mood?denies.?Difficulty sleeping?denies.?Nervous breakdown?denies.?Substance abuse?denies.?Urology:?abnormal menstrual bleeding?denies.?blood in urine?denies.?burning on urination?denies.?difficulty urinating?denies.?discharge?denies.?dysuria?denies.? * Medical History:? * Surgical History:?s/p gastri c sleeve by Dr. Moreno 10/2018cholecystectomy back surgery x2, Dr. Garcia and another doctor in [place] 2019right carpal tunnel surgery pancreatitis 2023 * Hospitalization/Major Diagno stic Procedure:? * Family History:?Daughter(s): migraine.?Mother: diagnosed with Hypertension.? * Social History:?Miscellaneous:?Exercise: no. ?Marital status: . ?Occupation: Retired. ???Nonsmoker ETOH- No. * Medications:?TakingComplex B -100 - Tablet Extended Release as directed Orally tiZANidine HCl 4 MG Tablet 1 tablet at bedtime as needed Orally Once a day Albuterol Sulfate (2.5 MG/3ML) 0.083% Nebulization Solution 3 ml as needed Inhalation every 6 hrs Deep Sea Nasal [place] 0.65 % Solution 2 sprays in each nostril as needed Nasally every 2 hrs Fluticasone-Salmeterol 230-21 MCG/ACT Aerosol 2 puffs Inhalation Twice a day Nystatin 546365 UNIT/GM Powder 1 application Externally Twice a day , Notes to Pharmacist: along with the nystatin creamAcetaminophen Extra Strength 500 MG Tablet 2 tablet as needed Orally every 6 hrs Ventolin HFA 108 (90 Base) MCG/ACT Aerosol Solution 1 puff as needed Inhalation every 4 hrs Omeprazole 20 MG Capsule Delayed Release 1 capsule 30 minutes before morning meal Orally Once a day Ferrous Sulfate 325 (65 Fe) MG Tablet 1 tablet Orally Once a day Cetirizine HCl 10 MG Tablet 1 tablet Orally Once a day Diclofenac Sodium 1 % Gel as directed Externally 2 times a day 2 gmsNaloxone HCl 4 MG/0.1ML Liquid as directed Nasally prn Sodium Bicarbonate 650 MG Tablet 1 TAB Orally 2 TIMES A DAY Tylenol Arthritis Pain Atorvastatin Calcium 20 MG Tablet 1 tablet Orally Once a day B Complex - Capsule 1 TAB Orally DAILY , Notes to Pharmacist: one dailyApixaban 5 MG Tablet 1 tablet Orally twice a day Lidocaine 4 % Patch 1 patch as needed Externally Once a day DULoxetine HCl 30 MG Capsule Delayed Release Particles 1 capsule Orally Once a day Morphine Sulfate ER 15 MG Tablet Extended Release 1 tablet Orally once a day , Notes to Pharmacist: Partial Fill upon Patient Request Partial Fill Upon Patient RequestoxyCODONE HCl 10 MG Tablet 1 tablet Orally 3 times a day , Notes to Pharmacist: Partial Fill Upon Patient RequestWheelchair - Miscellaneous Wheelchair with legs as directed; DX: M15.9, M51.35 Taking Complex B-100 - Tablet Extended Release as directed Orally Taking tiZANidine HCl 4 MG Tablet 1 tablet at bedtime as needed Orally Once a day Taking Albuterol Sulfate (2.5 MG/3ML) 0.083% Nebulization Solution 3 ml as needed Inhalation every 6 hrs Taking Deep Sea Nasal [place] 0.65 % Solution 2 sprays in each nostril as needed Nasally every 2 hrs Taking Fluticasone-Salmeterol 230-21 MCG/ACT Aerosol 2 puffs Inhalation Twice a day Taking Nystatin 306035 UNIT/GM Powder 1 application Externally Twice a day , Notes to Pharmacist: along with the nystatin creamTaking Acetaminophen Extra Strength 500 MG Tablet 2 tablet as needed Orally every 6 hrs Taking Ventolin HFA 108 (90 Base) MCG/ACT Aerosol Solution 1 puff as needed Inhalation every 4 hrs Taking Omeprazole 20 MG Capsule Delayed Release 1 capsule 30 minutes before morning meal Orally Once a day Taking Ferrous Sulfate 325 (65 Fe) MG Tablet 1 tablet Orally Once a day Taking Cetirizine HCl 10 MG Tablet 1 tablet Orally Once a day Taking Diclofenac Sodium 1 % Gel as directed Externally 2 times a day 2 gmsTaking Naloxone HCl 4 MG/0.1ML Liquid as directed Nasally prn Taking Sodium Bicarbonate 650 MG Tablet 1 TAB Orally 2 TIMES A DAY Taking Tylenol Arthritis Pain Taking Atorvastatin Calcium 20 MG Tablet 1 tablet Orally Once a day Taking B Complex - Capsule 1 TAB Orally DAILY , Notes to Pharmacist: one dailyTaking Apixaban 5 MG Tablet 1 tablet Orally twice a day Taking Lidocaine 4 % Patch 1 patch as needed Externally Once a day Taking DULoxetine HCl 30 MG Capsule Delayed Release Particles 1 capsule Orally Once a day Taking Morphine Sulfate ER 15 MG Tablet Extended Release 1 tablet Orally once a day , Notes to Pharmacist: Partial Fill upon Patient Request Partial Fill Upon Patient RequestTaking oxyCODONE HCl 10 MG Tablet 1 tablet Orally 3 times a day , Notes to Pharmacist: Partial Fill Upon Patient RequestTaking Wheelchair - Miscellaneous Wheelchair with legs as directed; DX: M15.9, M51.35 Not-TakingThiamine HCl 100 MG Tablet 1 tablet Orally Once a day MiraLax 17 GM Packet 1 packet mixed with 8 ounces of fluid Orally twice a day as needed Vitamin B12 1000 MCG Tablet Extended Release 1 tablet Orally Once a day Multivitamin - Tablet 1 tablet Orally Once a day Ondansetron 4 MG Tablet Disintegrating 1 tablet on the tongue and allow to dissolve Orally twice daily Zetia 10 MG Tablet 1 tablet Orally Once a day Vitamin D3 25 MCG (1000 UT) Tablet 1 tablet Orally Once a day Docusate Sodium 100 mg Capsule TAKE ONE CAPSULE BY MOUTH TWICE DAILY Diclofenac Sodium 3 % Gel 1 application Externally Twice a day Tylenol 8 Hour Arthritis Pain 650 MG Tablet Extended Release 2 tablets as needed Orally every 8 hrs Vancomycin HCl 125 MG Capsule 1 capsule Orally every 6 hours 12 dayshydrOXYzine HCl 50 MG Tablet 1 tablet Orally Twice a day Amoxicillin-Pot Clavulanate 500-125 MG Tablet 1 tablet Orally every 12 hrs Enoxaparin Sodium 60 MG/0.6ML Solution Prefilled Syringe as directed Injection once a day Aspirin 81 MG Tablet Delayed Release 1 tablet Orally Once a day Lisinopril 2.5 MG Tablet 1 tablet Orally Once a day Ozempic (2 MG/DOSE) 8 MG/3ML Solution Pen-injector 2 mg Subcutaneous once a week Paxlovid (300/100) 20 x 150 MG & 10 x 100MG Tablet Therapy Pack 3 tablets Orally Twice a day Medication List reviewed and reconciled with the patientNot-Taking Thiamine HCl 100 MG Tablet 1 tablet Orally Once a day Not- Taking MiraLax 17 GM Packet 1 packet mixed with 8 ounces of fluid Orally twice a day as needed Not-Taking Vitamin B12 1000 MCG Tablet Extended Release 1 tablet Orally Once a day Not-Taking Multivitamin - Tablet 1 tablet Orally Once a day Not-Taking Ondansetron 4 MG Tablet Disintegrating 1 tablet on the tongue and allow to dissolve Orally twice daily Not-Taking Zetia 10 MG Tablet 1 tablet Orally Once a day Not-Taking Vitamin D3 25 MCG (1000 UT) Tablet 1 tablet Orally Once a day Not- Taking Docusate Sodium 100 mg Capsule TAKE ONE CAPSULE BY MOUTH TWICE DAILY Not-Taking Diclofenac Sodium 3 % Gel 1 application Externally Twice a day Not-Taking Tylenol 8 Hour Arthritis Pain 650 MG Tablet Extended Release 2 tablets as needed Orally every 8 hrs Not-Taking Vancomycin HCl 125 MG Capsule 1 capsule Orally every 6 hours 12 daysNot-Taking hydrOXYzine HCl 50 MG Tablet 1 tablet Orally Twice a day Not- Taking Amoxicillin-Pot Clavulanate 500-125 MG Tablet 1 tablet Orally every 12 hrs Not- Taking Enoxaparin Sodium 60 MG/0.6ML Solution Prefilled Syringe as directed Injection once a day Not-Taking Aspirin 81 MG Tablet Delayed Release 1 tablet Orally Once a day Not-Taking Lisinopril 2.5 MG Tablet 1 tablet Orally Once a day Not-Taking Ozempic (2 MG/DOSE) 8 MG/3ML Solution Pen-injector 2 mg Subcutaneous once a week Not-Taking Paxlovid (300/100) 20 x 150 MG & 10 x 100MG Tablet Therapy Pack 3 tablets Orally Twice a day Medication List reviewed and reconciled with the patient * Allergies:?Sulfa Antibiotics : anaphylaxisMetformin: diarrheaOzempic: pancreatitis - Side Effects - Criticality High Objective: * Vitals:?Temp:97.4F, Oxygen s at %:90%, HR:67/min, BP:110/72mm Hg, Wt:133.0lbs, BMI:25.97Index, Ht: 60 in. * Examination: ???General Examination: ?Psychiatry?Normal.?GENERAL APPEARANCE:?Well developed, well nourished, in no acute distress,using a walker?.?MUSCULOSKELETAL:?Right hip pain and use walker to walk.?HEAD:?Normocephalic, atraumatic.?EYES:?Pupils equal, round, reactive to light and accommodation, sclera non-icteric.?EARS:?Normal.?ORAL CAVITY:?Normal.?THROAT:?Clear.?OROPHARYNX?Normal.?SINUSES?Normal.?NECK/THYROID:?Neck supple, full range of motion, no cervical lymphadenopathy.?SKIN:?Warm and dry, no suspicious lesions.?HEART:?grade 1/6 systolic murmur at left sternal border, S1, S2 normal.?LUNGS:?Normal.?BREASTS:?__.?ABDOMEN:?Soft, nontender, nondistended, bowel sounds present,?.?EXTREMITIES:?she is wearing compression stockings.?NEUROLOGIC:?Nonfocal,? appropriate?motor strength normal upper and lower extremities, sensory exam intact.?FEMALE GENITOURINARY:?__.?MALE GENITOURINARY:?__.?PODIATRIC:?Normal.?Technical Advisor? .? Assessment: * Assessment: 1.?Chronic pain syndrome - G 89.4 (Primary)???2.?Polyosteoarthritis, unspecified - M15.9???3.?Other intervertebral disc degeneration, thoracolumbar region - M51.35??? 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 She is here today for chronic pain management Chronic pain management. Chronic pain secondary to degenerative disc disease. Prognosis: Mild to moderate Medical necessity supported by H&P, imaging and testing [place] pain treatment protocol completed. Yes Chronic opioid/pain maintenance. This patient request for ongoing pain management using chronic opioids have met the compliance requirement today satisfying the Federation of state medical board recommendations and guidelines for judicious use, supervised opioid dispensing. Patient agreed to a personal interview for renewal for further opioids as planned at next scheduled visit or sooner if conditions change. Medication contract agreement and compliance reinforced. All risks and benefits associated with opioid neutralization, safe use and storage are described in great detail and patient voluntarily accepts all obligations. Patient is at moderate risk of opioid misuse based on ORT. Toxicology and PARAMEDIC SUPERVISOR monitoring done and will follow protocol set forth by practice. As such controlled substance use requires judicious monitoring to access patient compliance with mutually agreed upon controlled substance use agreement which has been signed by the patient and initiation of controlled substance prescribing. Therefore following state, Federal, [facility] guidelines for controlled substance testing policies. This patient has been assessed on the basis of psychometric risk tool, PARAMEDIC SUPERVISOR monitoring, toxicology test results. Comorbid conditions may contribute to her compliance with chronic ongoing pain condition/functional impairment. Urine toxicology screen not done on this visit Liver function tests are normal Prescription monitoring program reviewed Opioid risk tool [ ORT] for narcotic abuse used to evaluate risk continue current regimen of oxycodone 10 mg every 8 hours. She was on morphine sulfate 15 mg extended release which needs prior authorization. She may take oxycodone 10 mg 1 tablet every 6 hours if morphine sulfate is not covered Counseling done. Plan: * Treatment: * Procedure Codes:?3078F DIAST BP < 80 MM [id number] SYST BP LT 130 MM HG * Follow Up:?6 Weeks * * Sign off status: Completed true * Provider:?LENNIE ALFARO MD Date:?04/24 Generated for Mark weir/Grabiel/Leonelsmitting on:?04/24/2024 10:04 AM EST History and Physical Notes * HPI (History of Present Illness) Category Sub-Category Detail Notes Category Not es Internal Medicine Yanet is a 68-year-old female with a pmhx of T2DM, HLD, Asthma, Vitamin D deficiency is here for follow-up. She he is going to have right hip surgery on May 01, 2024 at [facility] by Dr. Ruiz. She uses a walker at home and she uses a wheelchair outside home. She reported left hip pain radiating to the right hip, experiencing limited mobility. She has gain weight, likely due to decreased activity. She is currently on morphine and oxycodone for pain management, with a new prescription sent to the pharmacy despite having an adequate supply of oxycodone. No history of smoking or alcohol use. Examination Category Sub-Category Detail Notes Category Not es General Examination GENERAL APPEARANCE: Well dev eloped, well nourished, in no acute distress, using a walker HEAD: Normocephalic, atrau matic EYES: Pupils equal, round, reactive to light and accommodation, sclera non-icteric EARS: Normal THROAT: Clear NECK/THYROID: Neck supple, full ra nge of motion, no cervical lymphadenopathy HEART: grade 1/6 systolic m urmur at left sternal border, S1, S2 normal LUNGS: Normal ABDOMEN: Soft, nontender, non distended, bowel sounds present, NEUROLOGIC: Nonfocal, appropriat e motor strength normal upper and lower extremities, sensory exam intact SKIN: Warm and dry, no oskar picious lesions EXTREMITIES: she is wearing compr ession stockings PERIPHERAL PULSES: BREASTS: __ MUSCULOSKELETAL: Right hip pain and u se walker to walk MALE GENITOURINARY: __ FEMALE GENITOURINARY: __ ORAL CAVITY: Normal PODIATRIC: Normal Psychiatry Normal OROPHARYNX Normal SINUSES Normal Technical Advisor
--- OUTSIDE RECORDS SUMMARY | 2024-04-24 10:04 | XMS_ITS | Encounter Summary ---
Author Organization [facility] Address [address] [place] [address] Care Team Providers Care Gas Load Dispatcher Name Role Phone Ayan Clayton MD Primary Care Provider [phone] Reason for Visit * Reason Onset Date Comments Pre-op Exam 04/04/2024 Encounter Details Date Type Department Care Team (Late st Contact Info) Description 04/04/2024 Telephone Adult Medicine [address] [phone] Ayan Clayton MD [address] [place] [id number] Pre-op Exam Social History Tobacco Use Types Packs/Day Years Used Date Smoking Tobacco: Former Cigarettes 4 45 0 03/27/1962 - 03/27/2007 Smokeless Tobacco: Never Alcohol Use Standard Drinks/Week Comments No 0 (1 standard drink = 0.6 oz pur e alcohol) Sex and Gender Information Value Date Recorded Sex Assigned at Not on file Gender Identity Not on file Sexual Orientation Not on file Job Start Date Occupation Industry Not on file Not on file Not on file documented as of this encounter Progress Notes * Devika Hawley - 04/08/2024 4:12 PM EST Appt cancelled * [place] - 04/04/2024 4:07 PM EST Pt wants to cancel this Pre-Op appt due to pt transferred to [facility] Dr. Jake Womack for new pcp already. Pls advise. Tel #: [phone]. documented in this encounter Plan of Treatment Upcoming Encounters Date Type Department Care Team (Late st Contact Info) Description 05/01/2024 9:30 AM EST Office Visit Pulmonolgy - [place] [address] [phone] Jil Freeman NP [address] [address] 08/30/2024 10:00 AM EDT Appointment Radiology Department - [address] [phone] 12/05/2024 3:45 PM EDT Office Visit Nephrology - [address] [phone] Vega Navarro MD [address] [phone] 02/04/2025 9:00 AM EST Office Visit Bariatric Surgery - [place] [address] [phone] Torrey Moreno MD [address] [phone] documented as of this encounter Visit Diagnoses Not on filedocumented in this encounter Care Teams Gas Load Dispatcher Relationship Specialty Start Date End Date Ayan Clayton MD [address] [place] [address] PCP - General Internal Medicine 02/13/24 04/04/24 documented as of this encounter
--- OUTSIDE RECORDS SUMMARY | 2024-04-24 10:04 | XMS_ITS ---
Author Organization [facility] Address [address] [facility] [address] [place] [address] Care Team Providers Care Guest Service Manager Name Role Phone Ayan Clayton Primary Care Provider SKYLAR Perez Unavailable [phone] Allergies Allergen (clinical drug ingredient) Drug/Non Drug Allergy documented on EMR Reaction Allergy Type Onset Date Status metformin Metformin HCl diarrhea Drug Allergy Act godwin sulfamethoxazole / trimethoprim Sulfamethoxazole/Tr imethoprim Unknown Drug Allergy Active REASON FOR VISIT 3 month follow up Medications Medication SIG (Take, Route, Frequency, Duration) Notes Start Date End Date Status Alpha Lipoic Acid 200 MG as directed Orally prn Not-Taking HYDROcodone-Acetaminophen 10-325 MG 1 tablet as needed Orally every 6 hrs 25mg qhs Not-Taking Clindamycin HCl 300 MG 2 capsules Orally every 8 hrs for 14 day(s) Not-Taking Doxycycline Monohydrate 100 MG 1 tablet Orally Twice a day for 10 day(s) 02/02/2021 Not-Taking Dextromethorphan HBr 10 MG/15ML 15 ml as needed Orally every 8 hrs Not-Taking Tylenol 325 MG 1 tablet as needed Orally every 4 hrs prn Not-Taking Baclofen 10 MG/5ML as directed Intrathecal Not-Taking Naprosyn 500 MG 1 tablet with food or milk as needed Orally every 12 hrs Active Gabapentin 300 MG 1 capsule Orally Three times a day Not-Taking Ibuprofen 800 MG 1 tablet with food or milk as needed Orally Three times a day prn Not-Taking Baclofen 20 MG 1 tablet Administer without regards to meals as needed Orally Twice a day Active Acetaminophen 500 MG 1 tablet as needed Orally every 6 hrs Active Multivitamin - 1 tablet Orally Once a day Active Vital Signs Weight 150.4 lbs 01/30/2023 Height 5ft in 01/30/2023 BMI 29.37 kg/m2 01/30/2023 Heart Rate 92 /min 01/30/2023 Temperature 96.8 degrees Fahrenheit 01/31/20 Respiratory Rate 16 /min 01/30/2023 Procedures Procedure Date Ordered Date Performed Result Body Sit e DRAIN/INJECT, INTERMEDIATE JOINT/BURSA 01/30/2023 N/A Encounters Encounter Location Date Provider Diagnosis [facility] [address] [facility] [address] [place] [address] 01/30/2023 SKYLAR HANNA Type 2 diabetes mellitus with diabetic polyneuropathy, without long-term current use of insulin E11.42 ; Dystrophic nail L60.3 ; Arthritis of ankle, left M19.072 ; Pain in right toe(s) M79.674 ; Pain in left toe(s) M79.675 ; Other hammer toe(s) (acquired), right foot M20.41 and Other hammer toe(s) (acquired), left foot M20.42 Assessments Encounter Date Diagnosis (ICD Code) Assessment Notes Treatment Notes Treatment Clinical Notes Section Notes 01/30/2023 Type 2 diabetes mellitus with diabetic polyneuropathy , without long-term current use of insulin (ICD-10 - E11.42) Discussed with patient regarding proper glucose control, exercise, and diet. Explained to patient proper shoe gear, and importance of daily foot checks. I reviewed neuropathy and why it occurs in diabetics. I educated the patient on proper blood sugar control and the importance of an HgBA1c of less than 7.0%. I reviewed the signs and symptoms of neuropathy with the patient. We also discussed the risks associated with healing when diabetic. 01/30/2023 Dystrophic nail (ICD-10 - L60.3) Aseptic debridement of toenails x 10 with a dry wall nailer and a curette, pt tolerated well. Discussed with the patient that routine nail care services are only covered by insurance every 60 days. Pt understands that if they would like to return prior to this time frame, they may have to pay out of pocket. 01/30/2023 Arthritis of ankle, left (ICD-10 - M19.072) She is s/p 2 months from a right ankle fusion. She did have 3 months of relief after the last injection on the left ankle. She feels an aching pain when walking. Consent was reviewed and signed by the patient for a steroid injection into the left ankle. Pt agreed. 3cc total steroid injection was given into the left ankle. Pt tolerated well. Post-Injection instructions were given to the patient. Pt instructed icing/elevate the foot tonight. 01/30/2023 Pain in right toe(s) (ICD-10 - M79.674) 01/30/2023 Pain in left toe(s) (ICD-10 - M79.675) 01/30/2023 Other hammer toe(s) (acquired), right foot (ICD-10 - M20.41) We discussed she has weakness of the dorsiflexory muscles in the 2nd toes. We discussed the flexor tendons are overpowering creating the curling of the toes. I also gave recommendations for toe exercises in an effort to strengthen the tendons. She is in agreement with this plan. 01/30/2023 Other hammer toe(s) (acquired), left foot (ICD-10 - M20.42) Plan Of Treatment Pending Test Test Name Order Date DRAIN/INJECT, INTERMEDIATE JOINT/BURSA 1 04/01/2022 Next Appt Details Follow Up: 3 Months, Reason: Medications Administered Medication Instructions Date of Administration Dosage Notes dexAMETHasone Sod Phosphate PF 01/30/2023 0.5 m L Kenalog 01/30/2023 0.5 mL Progress Notes * Yanet KINGDOB:1955 (67 yo F)Acc No.[id number]:01/30/2023 Progress Notes Patient:?Yanet KING Provider:?Skylar Hanna DPM :1955???Age:67 Y???Sex:Female D ate:01/30/2023 Address:[facility] [id number] Pcp:Ayan Clayton Subjective: * Chief Complaints: * ???3 month follow up * HPI: ???Constitutional:? This 67 y/o diabetic female returns to my office for a diabetic foot evaluation, a complaint of bilateral ankle pain. She underwent an ankle fusion of the right ankle on 11/21/2022. She is currently using a walker to get around and using a walking boot. Due to the fracture, they did not recommend a joint replacement. She states the left 2nd toe is still crooked following the toe fractures. She states the 2nd toes have been curling more and facing down when she walks, especially when barefoot. She complains her toenails are long thick and painful. She has occasional left ankle joint pain when walking, especially following the right ankle surgery. She has no other foot complaints this visit. Her last hgba1c was 5. Her last visit with her PCP care team Dr Clayton for diabetes management was 01/03/2023. * ROS:?GENERAL: Pt denies nausea, fever, vomiting, chills, or shortness of breath. Pt in NAD. ALLERGY: patient denies any new allergy HEME/ONC: patient denies any bleeding or clotting disorders CARDIOLOGY: pt denies chest pain, palpitations LUNGS: pt denies shortness of breath ABDOMEN: patient denies any bloating, abdominal pain, or swelling MUSCULOSKELETAL: See HPI, otherwise no joint pain or swelling, back pain, or muscle pain. SKIN: see HPI, otherwise no lesions, rash or itching NEURO: No persistent headache, weakness or numbness PSYCH: patient denies any current anxiety or depression The remainder of the review of systems is noncontributory. * Medical History:? * Surgical History:?lumbar dec ompression cholecystectomy lap sleeve gastrectomy lap vent hernia repair ankle fusion-[facility] 11/22/2022 * Hospitalization/Major Diagno stic Procedure:?2 back surgery 10/2018lap sleeve gastrectomy 2018 * Family History:?Father: dece ased, emphysema.?Mother: hypertension.? * Social History:?former smoker, 4 packs/day for 45 years. Quit 03/2007 Alcohol: no. * Medications:?TakingMultivita min - Tablet 1 tablet Orally Once a day Acetaminophen 500 MG Tablet 1 tablet as needed Orally every 6 hrs Baclofen 20 MG Tablet 1 tablet Administer without regards to meals as needed Orally Twice a day Naprosyn 500 MG Tablet 1 tablet with food or milk as needed Orally every 12 hrs Taking Multivitamin - Tablet 1 tablet Orally Once a day Taking Acetaminophen 500 MG Tablet 1 tablet as needed Orally every 6 hrs Taking Baclofen 20 MG Tablet 1 tablet Administer without regards to meals as needed Orally Twice a day Taking Naprosyn 500 MG Tablet 1 tablet with food or milk as needed Orally every 12 hrs Not-TakingGabapentin 300 MG Capsule 1 capsule Orally Three times a day Baclofen 10 MG/5ML Solution as directed Intrathecal Tylenol 325 MG Tablet 1 tablet as needed Orally every 4 hrs , Notes to Pharmacist: prnIbuprofen 800 MG Tablet 1 tablet with food or milk as needed Orally Three times a day , Notes to Pharmacist: prnHYDROcodone-Acetaminophen 10-325 MG Tablet 1 tablet as needed Orally every 6 hrs , Notes to Pharmacist: 25mg qhsAlpha Lipoic Acid 200 MG Capsule as directed Orally , Notes to Pharmacist: prnDextromethorphan HBr 10 MG/15ML Syrup 15 ml as needed Orally every 8 hrs Doxycycline Monohydrate 100 MG Tablet 1 tablet Orally Twice a day Clindamycin HCl 300 MG Capsule 2 capsules Orally every 8 hrs Medication List reviewed and reconciled with the patientNot-Taking Gabapentin 300 MG Capsule 1 capsule Orally Three times a day Not-Taking Baclofen 10 MG/5ML Solution as directed Intrathecal Not-Taking Tylenol 325 MG Tablet 1 tablet as needed Orally every 4 hrs , Notes to Pharmacist: prnNot-Taking Ibuprofen 800 MG Tablet 1 tablet with food or milk as needed Orally Three times a day , Notes to Pharmacist: prnNot-Taking HYDROcodone-Acetaminophen 10-325 MG Tablet 1 tablet as needed Orally every 6 hrs , Notes to Pharmacist: 25mg qhsNot-Taking Alpha Lipoic Acid 200 MG Capsule as directed Orally , Notes to Pharmacist: prnNot-Taking Dextromethorphan HBr 10 MG/15ML Syrup 15 ml as needed Orally every 8 hrs Not-Taking Doxycycline Monohydrate 100 MG Tablet 1 tablet Orally Twice a day Not-Taking Clindamycin HCl 300 MG Capsule 2 capsules Orally every 8 hrs Medication List reviewed and reconciled with the patient * Allergies:?Sulfamethoxazole/ TrimethoprimMetformin HCl: diarrheano[Allergies Verified] Objective: * Vitals:?Wt:150.4lbs, Ht: 5ft , BMI:29.37Index, HR:92/min, Temp:96.8F, RR:16/min, Ht-cm: 152.4, Wt-k.22 kg. * Examination: ???General Examination: ???GENERAL: Patient appears well nourished, with NAD. ?VASCULAR: Dorsalis pedis pulses are 2/4 bilaterally and Posterior tibial pulses are 1/4 bilaterally. Capillary filling time within normal limits the digits. Rubor on dependency. No hair growth. No varicosities. Denies rest pain or claudication pain. Toes cool to the touch. ?NEUROLOGICAL: Sharp/dull sensation intact bilaterally, protective sensation diminished 2/10 with 5.07 [place] bilaterally, vibratory sensation with tuning fork diminished to the tibial tuberosity bilaterally, position sense intact bilaterally to the tibial tuberosity. ?ORTHOPEDIC: Good muscle strength 4+/5 of all flexors and extensors left, 3/5 right with weakness of dorsiflexors. Pain on palpation and ROM of the left ankle with limited ROM. No ankle ROM of the right side. Dorsi flexion of ankle ,0 degrees, plantar flexion WNL. No muscle atrophy. No pain on palpation or ROM of the left hallux. Medial deviation of the left 2nd toe at the proximal interphalangeal joint. No pain on palpation or ROM of the left 2nd or 3rd toes. Limited right ankle ROM. Pain on palpaion of the anterior aspect of the right ankle, pain and weakness of dorsiflexion of the right side. Pain on palpation and ROM of the left ankle. ?DERMATOLOGICAL: 3mm thickened yellowed dystrophic elongated toenails x 10 with subungual debris and tenderness on palpation. ?BIOMECHANICS: STJ ROM limited, MTJ ROM limited, 1st MPJ ROM limited. On weigh bearing, pes planus with pronation on ambulation. ?SHOES: diabetic sneakers. Assessment: * Assessment: 1.?Type 2 diabetes mellitus with diabetic polyneuropathy, without long-term current use of insulin - E11.42?2.?Dystrophic nail - L60.3?3.?Arthritis of ankle, left - M19.072?4.?Pain in right toe(s) - M79.674?5.?Pain in left toe(s) - M79.675?6.?Other hammer toe(s) (acquired), right foot - M20.41?7.?Other hammer toe(s) (acquired), left foot - M20.42? Plan: * Treatment: 2.?Dystrophic nail? Clinical Notes: Aseptic debridement of toenails x 10 with a dry wall nailer and a curette, pt tolerated well. Discussed with the patient that routine nail care services are only covered by insurance every 60 days. Pt understands that if they would like to return prior to this time frame, they may have to pay out of pocket.?? 3.?Arthritis of ankle, left?Procedure: DRAIN/INJECT, INTERMEDIATE JOINT/BURSA Clinical Notes: She is s/p 2 months from a right ankle fusion. She did have 3 months of relief after the last injection on the left ankle. She feels an aching pain when walking. Consent was reviewed and signed by the patient for a steroid injection into the left ankle. Pt agreed. 3cc total steroid injection was given into the left ankle. Pt tolerated well. Post-Injection instructions were given to the patient. Pt instructed icing/elevate the foot tonight.?? 4.?Other hammer toe(s) (acqu ired), right foot? Clinical Notes: We discussed she has weakness of the dorsiflexory muscles in the 2nd toes. We discussed the flexor tendons are overpowering creating the curling of the toes. I also gave recommendations for toe exercises in an effort to strengthen the tendons. She is in agreement with this plan.?? * Procedures:?Procedure: The left foot was prepped and draped appropriately. The area was cleansed with a iodine solution. Ethyl chloride spray was then utilized to topically anesthetize the skin. 3cc steroid injection consisting of 1cc of lidocaine 1% plain, 1cc of 0.5% Marcaine Plain, 1/2cc of Decadron 4mg, and 1/2cc of Kenalog 40% was injected into the left anterolateral ankle. Pt tolerated the procedure well. All bleeding was stopped with pressure and a band-aid was applied. ? * Therapeutic Injections:? Dexamethasone : 0.5 mL (Dose No:1) given by Richie HALL.P.M (Arthritis of ankle, left)??? Kenalog : 0.5 mL (Dose No:1) given by Martin HALLP.M (Arthritis of ankle, left) * Procedure Codes:? DRAIN /INJECT, INTERMEDIATE JOINT/BURSA, [place]: [place] [address] DEBRIDE NAIL, 6 OR MORE, Modifiers: q9 J1100 INJ DEXAMETHASONE SODIM PHOSHATE 1 [id number] INJ TRIAMCINOLONE ACETONIDE 10 MG * Follow Up:?3 Months * Billing Information: * Visit Code:? 00176 Office Visit, Est Pt., Level 3. Modifiers: 25 * Procedure Codes:? DRAIN/INJECT, INTERMEDIATE JOINT/BURSA. [place]: [place] [address] DEBRIDE NAIL, 6 OR MORE. Modifiers: q9 J1100 INJ DEXAMETHASONE SODIM PHOSHATE 1 MG. J3301 INJ TRIAMCINOLONE ACETONIDE 10 MG. * Sign off status: Completed true * Provider:Shirley Hanna DPM Date:? 01/30/2023 Generated for Mark weir/Grabiel/Jannieitting on:?04/24/2024 10:03 AM EST History and Physical Notes * HPI (History of Present Illness) Category Sub-Category Detail Notes Category Not es Constitutional This 67 y/o d iabetic female returns to my office for a diabetic foot evaluation, a complaint of bilateral ankle pain. She underwent an ankle fusion of the right ankle on 11/21/2022. She is currently using a walker to get around and using a walking boot. Due to the fracture, they did not recommend a joint replacement. She states the left 2nd toe is still crooked following the toe fractures. She states the 2nd toes have been curling more and facing down when she walks, especially when barefoot. She complains her toenails are long thick and painful. She has occasional left ankle joint pain when walking, especially following the right ankle surgery. She has no other foot complaints this visit. Her last hgba1c was 5. Her last visit with her PCP care team Dr Clayton for diabetes management was 01/03/2023. Examination Category Sub-Category Detail Notes Category Not es General Examination GENERAL: Patient appears well nourished, with NAD. VASCULAR: Dorsalis pedis pulses are 2/4 bilaterally and Posterior tibial pulses are 1/4 bilaterally. Capillary filling time within normal limits the digits. Rubor on dependency. No hair growth. No varicosities. Denies rest pain or claudication pain. Toes cool to the touch. NEUROLOGICAL: Sharp/dull sensation intact bilaterally, protective sensation diminished 2/10 with 5.07 [place] bilaterally, vibratory sensation with tuning fork diminished to the tibial tuberosity bilaterally, position sense intact bilaterally to the tibial tuberosity. ORTHOPEDIC: Good muscle strength 4+/5 of all flexors and extensors left, 3/5 right with weakness of dorsiflexors. Pain on palpation and ROM of the left ankle with limited ROM. No ankle ROM of the right side. Dorsi flexion of ankle ,0 degrees, plantar flexion WNL. No muscle atrophy. No pain on palpation or ROM of the left hallux. Medial deviation of the left 2nd toe at the proximal interphalangeal joint. No pain on palpation or ROM of the left 2nd or 3rd toes. Limited right ankle ROM. Pain on palpaion of the anterior aspect of the right ankle, pain and weakness of dorsiflexion of the right side. Pain on palpation and ROM of the left ankle. DERMATOLOGICAL: 3mm thickened yellowed dystrophic elongated toenails x 10 with subungual debris and tenderness on palpation. BIOMECHANICS: STJ ROM limited, MTJ ROM limited, 1st MPJ ROM limited. On weigh bearing, pes planus with pronation on ambulation. SHOES: diabetic sneakers
--- OUTSIDE RECORDS SUMMARY | 2024-04-24 10:04 | XMS_ITS | Clinical Summary ---
Author Organization [address] [facility] Address [address] [place] [address] Phone Care Team Providers Care [employer]en [employer] Name Role Phone Unavailable Primary Care Provider Unavailabl e Allergies Active Allergy Reactions Criticality Noted Date Comments Metformin Diarrhea 09/23/2016 Sulfa (Sulfonamide Antibiotics) High 03/28/2005 swelling and difficulty breathing Medications Medication Sig Dispensed Refills Start Date End Date Status cyanocobalamin (VITAMIN B-12) 1,000 mcg tablet Take 1 tablet (1,000 mcg total) by mouth 1 (one) time each day. 05/23/2023 Active multivitamin (MULTIPLE VITAMINS ORAL) Take 1 tablet by mouth 1 (one) time each day. 04/18/2023 Active fluticasone-umecl idinium-vilantero l (Trelegy Ellipta) 100-62.5-25 mcg inhaler Inhale 1 Puff into the lungs daily. 08/07/2023 Active acetaminophen (TYLENOL 8 HOUR) 650 mg 8 hr tablet TAKE ONE TABLET EVERY 8 HOURS NEEDED FOR PAIN 07/11/2023 Active diclofenac (VOLTAREN) 1 % topical gel APPLY ONE GRAM TO THE AFFECTED AREA(s) TWICE DAILY 07/11/2023 Active cetirizine (ZyrTEC) 10 mg tablet Take 1 tablet (10 mg total) by mouth 1 (one) time each day. 07/05/2023 Active atorvastatin (LIPITOR) 20 mg tablet Take 1 Tablet by mouth at bedtime. 07/05/2023 Active hydrOXYzine HCL (ATARAX) 50 mg tablet Take 1 tablet (50 mg total) by mouth 2 (two) times a day. 07/05/2023 Active lisinopriL (PRINIVIL,ZESTRIL ) 2.5 mg tablet Take 1 Tablet by mouth daily for 180 days. 07/05/2023 Active lansoprazole (PREVACID SOLUTAB) 15 mg dispersible tablet DISSOLVE 1 TABLET BY MOUTH EVERY DAY 06/21/2023 Active calcitonin salmon (MIACALCIN) 200 unit/actuation nasal spray 1 [place] by Alternating Nares route daily. 06/29/2023 Active cholecalciferol (VITAMIN D-3) 25 mcg (1,000 unit) tablet Take 1 tablet (1,000 Units total) by mouth 1 (one) time each day. 06/21/2023 Active celecoxib (CeleBREX) 100 mg capsule Take 1 capsule (100 mg total) by mouth 2 (two) times a day. 05/18/2023 Active albuterol HFA (PROAIR HFA ; PROVENTIL HFA ; VENTOLIN HFA) 90 mcg/actuation inhaler Inhale 2 Puffs into the lungs 4 times daily as needed for Wheezing or Shortness of Breath. 06/05/2023 Active vitamin B complex vit C no.3 (B COMPLEX PLUS VITAMIN C ORAL) Take 1 tablet by mouth 1 (one) time each day. 05/25/2023 Active thiamine 100 mg tablet Take 1 tablet (100 mg total) by mouth 1 (one) time each day. 05/23/2023 Active nystatin (MYCOSTATIN) cream APPLY TO THE AFFECTED AREA(S) THREE TIMES DAILY 04/11/2023 Active Ozempic 2 mg/dose (8 mg/3 mL) injection pen Inject 2 mg into the skin once a week. INJECT 2mg's SUBCUTANEOUSLY EVERY WEEK 04/10/2023 Active ibuprofen (ADVIL,MOTRIN) 800 mg tablet Take 1 tablet (800 mg total) by mouth every 8 (eight) hours if needed. 03/15/2023 Active triamcinolone acetonide (KENALOG-40) 40 mg/mL injection Inject 1 mL into the articular space once for 1 dose. 03/10/2023 Active polyethylene glycol (MIRALAX) 17 gram packet MIX 1 PACKET IN 8 OUNCES OF WATER, JUICE,SODA, COFFEE, OR TEA DAILY NEEDED FOR CONSTIPATION TWICE DAILY 08/03/2022 Active UNABLE TO FIND Use daily 06/23/2022 Active blood sugar diagnostic (FreeStyle Lite Strips) test strip TEST BLOOD SUGAR FOUR TIMES DAILY 11/12/2021 Active tiZANidine (ZANAFLEX) 4 mg tablet TAKE ONE TABLET EVERY 6 HOURS NEEDED FOR MUSCLE SPASMS 120 tablet 1 03/13/2024 Active Active Problems Problem Noted Date Diagnosed Date Asthma 12/29/2023 Nocturnal hypoxemia 01/20/2022 COVID-19 virus detected 07/23/2019 Overview (12/29/2023): 07/22/2019 Lumbar disc disease 05/02/2019 Obesity (BMI 30.0-34.9) 10/16/2018 Overview (12/29/2023): S/p sleeve gastrectomy (Oct 2018) Allergic rhinitis due to pollen 10/01/2018 Centrilobular emphysema 10/01/2018 Overview (12/29/2023): CT Lung Screenin02/2021: No pulmonary nodues. Snoring 05/24/2017 Overview (12/29/2023): 05/18/2017 Home Sleep Study did not reveal sleep apnea. Varicose veins of both lower extremities 017 Amaurosis fugax 10/25/2016 Overview (12/29/2023): Episode of vision loss for 20 minutes , [facility] 12/23/15 echo wnl, carotid duplex < 50 % stenosis Elevated liver enzymes 10/25/2016 Overview (12/29/2023): 09/16/16 Microalbuminuria 10/25/2016 Peripheral neuropathy 10/25/2016 Overview (12/29/2023): Consult Dr. Russell 05/02/2011. 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 07/11/2012 Type 2 diabetes mellitus with renal manifestatio ns 07/11/2012 Overview (12/29/2023): Microalbumin 58 on 08/2011 Hypertension 05/14/2010 Fibromyalgia 03/28/2005 Hyperlipidemia 03/28/2005 Resolved Problems Problem Noted Date Diagnosed Date Resolved Date Overweight (BMI 25.0-29.9) 11/07/2022 0 04/02/2024 Encounters Date Type Department Care Team Description 04/04/2024 Telephone Adult Medicine [facility] [address] [place] [address] Ayan Clayton MD Pre-op Exam 03/15/2024 Telephone Lung Screening Program - [place] [address] [facility] [address] [place] [phone] Jyoti Mackay [place] Appointment (No longer qualifies for screening) 02/20/2024 10:45 AM EST Office Visit Bariatric Surgery - [place] [address] [facility] [address] [place] [phone] Torrey Moreno MD Intestinal malabsorption following gastrectomy (Primary Dx) from Last 3 Months Immunizations Name Administration Dates Next Due H1N1 Inj Preservative Free 02/05/2009 Influenza Quadravalent, MDCK , 0.5ml, preservative free (Flucelvax) 6mo and older 12/22/2020,03/05/2020,11/29/2018,12/25 Influenza Quadravalent, MDCK , 0.5ml, with preservative (Flucelvax) 6mo and older 01/13/2017 Influenza trivalent, 0.5mL ( Fluzone High-dose) 65yo and older 12/08/2022,12/07/2021 Influenza trivalent, with pr eservative (Fluzone; Afluria) 6mo and older 12/07/2014,01/26/2014,12/27/2012,01/29,12/15/2010,04/30/2010,12/14/2008 ,12/29/2007,2006,01/05/2006,11/26 Moderna SARS-CoV-2 COVID-19, mRNA, LNP-S, preservative free 05/03/2021,06/23/2020,05/26/2020 Pneumococcal conjugate 13 va lent (Prevnar 13, PCV13) 2mo and older 02/03/2021 Pneumococcal polysaccharide 23 valent (Pneumovax 23) 2yo and older 12/21/2004 TD, Adsorbed, Preservative Free 04/17/2002 Td Tetanus diptheria (Tdvax) 7yo and older 04/17/2002 Tdap Tetanus diptheria acell ular pertussis (Boostrix; Adacel) 7yo and older 12/08/2022,01/30/2012 Zoster recombinant (Shingrix ) 19yo and older 05/16/2019,03/13/2019 Surgical History Surgery Date Site/Laterality Comments OTHER SURGICAL HISTORY 05/27/08, 05/15/2014 ventral hernia repair BREAST BIOPSY Right COLONOSCOPY 04/27/16, 01/2006 rpt 10 yrs OTHER SURGICAL HISTORY 02/2006 ERCP and sphincterotomy for papillary stenosis, Dr Palacios OTHER SURGICAL HISTORY 11/09/2018 : lap sleeve gastrectomy BACK SURGERY 04/15/2019 : L-4L5 decompression and fusion (TLIF) by Dr. Garcia UPPER GASTROINTESTINAL ENDOSCOPY 08/02/2006 Gastritis, bx LUMBAR LAMINECTOMY 11/05/2019 L2-L3 w/ complete facetectomy and nerve decompression. Medical History Medical History Date Comments Hyperlipidemia 03/28/2005 Fibromyalgia 03/28/2005 Hypertension 05/14/2010 Spinal stenosis 07/08/2013 Asthma Microalbuminuria 10/25/2016 Peripheral neuropathy 10/25/[address] Jason Russell 05/02/2011. Vitamin D insufficiency 10/25/2016 14.2 Ng/ ml on 09/16/16 Amaurosis fugax 10/25/2016 Episode of visi on loss for 20 minutes , [facility] 12/23/15 echo wnl, carotid duplex < 50 % stenosis Elevated liver enzymes 10/25/2016 09/16/16 Type 2 diabetes mellitus wit h renal manifestations (CMS/HCC) 07/11/2012 History of bariatric surgery 12/25/2017 : lap sleeve gastrectomy Type 2 diabetes mellitus wit h neurological manifestations (CMS/HCC) 07/11/2012 Allergic rhinitis due to pollen 10/01/2018 Centrilobular emphysema (CMS/HCC) 10/01/2018 Snoring 05/24/2017 05/18/2017 Home S leep Study did not reveal sleep apnea. Varicose veins of both lower extremities 02/02/20 17 COVID-19 virus detected 07/23/2019 0 Family History Medical History Relation Name Comments Diabetes Brother 1 COPD Drug abuse Brother 2 COPD Father Hypertension Mother hernia, ,? Ca o f GB or pancreas, 63, Arthritis Breast cancer Neg Hx Relation Name Status Comments Brother 1 Brother 2 Father Mother Social History Tobacco Use Types Packs/Day Years [...] file Not on file Not on file Obstetrics History Last Filed Vital Signs Vital Sign Reading Time Taken Comments Blood Pressure 95/53 02/20/2024 10:55 AM EST Pulse 49 02/20/2024 10:55 AM EST Temperature 36.2 ??C (97.2 ??F) 02/20/2024 10:[address] Respiratory Rate - - Oxygen Saturation - - Inhaled Oxygen Concentration - - Weight 56.7 kg (125 lb) 02/20/2024 10:55 AM EST Height 149.9 cm (4' 11 ) 02/20/2024 10:55 AM EST Body Mass Index 25.25 02/20/2024 10:55 AM EST Plan of Treatment Upcoming Encounters Date Type Department Care Team (Late st Contact Info) Description 05/01/2024 9:30 AM EST Office Visit Pulmonolgy - [place] [address] [facility] [address] [place] [phone] Jil Freeman NP [address] [facility] [address] [place] [address] 08/30/2024 10:00 AM EDT Appointment Radiology Department - [address] [phone] 12/05/2024 3:45 PM EDT Office Visit Nephrology [facility] [address] [place] [address] Vega Navarro MD [address] [facility] [address] [place] [phone] 02/04/2025 9:00 AM EST Office Visit Bariatric Surgery - [place] [address] [facility] [address] [place] [phone] Torrey Moreno MD [address] [facility] [address] [place] [address] Health Maintenance Due Date Last Done Comments Diabetes: Annual Retina Eye Exam 12/29/1965 RSV Immunization Patients 60+ Years Old (1 - Risk 60-74 years 1-dose series) 2015 Pneumococcal Vaccine: 65+ Years (3 of 3 - PPSV23 or PCV20) 02/03/2022 02/03/2021, 12/21/2004 Depression Screening 03/05/2022 Falls Risk Assessment 03/05/2022 Social Influencers of Health Screening 03/05/2022 COVID-19 Vaccine ( season) 2023 03/15/2023, 02/12/2022, 05/03/2021, Additional history exists Influenza Vaccine (#1) 2023 , 12/07/2021, 12/22/2020, Additional history exists Medicare Annual Wellness Visit 12/09/2023 12/08/2022 Diabetes: Blood Sugar Control Test (HGBA1C) 12/29/2023 06/29/2023 Diabetes: Annual Foot Exam 04/10/2024 04/10/2023 Diabetes: Annual Urine Albumin-Creatinine Ratio (uACR) 06/28/2024 06/29/2023 Diabetes: Annual GFR (Glomerular Filtration Rate) 01/02/2025 01/03/2024, 06/29/2023 Hypertension/CHF/CAD Annual BMP Blood Test 01/02/2025 01/03/2024, 06/29/2023 Breast Cancer Screening 08/15/2025 08/16/19 24, 08/16/2023, 08/12/2022, Additional history exists Cervical Cancer Screening: HPV 04/28/2026 04/28/2021 Cholesterol Screening (Lipid Panel) 06/28/2028 06/29/2023 Colorectal Cancer Screening: Colonoscopy 02/16/2031 02/16/2021 Osteoporosis Screening (Bone Density Screening) 08/12/2031 08/11/2021 DTaP,Tdap,and Td Vaccines (5 - Td or Tdap) 12/08/2032 12/08/2022, 01/30/2012, 04/17/2002, Additional history exists Zoster Vaccines Completed 05/16/2019, 03/13/2019 Hepatitis C Screening Completed 12/07/2020 HIB Vaccines Aged Out No longer eligi ble based on patient's age to complete this topic HPV Vaccines Aged Out No longer eligi ble based on patient's age to complete this topic Hepatitis A Vaccines Aged Out No long er eligible based on patient's age to complete this topic Hepatitis B Vaccines Aged Out No long er eligible based on patient's age to complete this topic IPV Vaccines Aged Out No longer eligi ble based on patient's age to complete this topic MMR Vaccines Aged Out No longer eligi ble based on patient's age to complete this topic Meningococcal ACWY Vaccine Aged Out N o longer eligible based on patient's age to complete this topic RSV Immunization Patients Under 20 months Aged Out No longer eligible based on patient's age to complete this topic Varicella Vaccines Aged Out No longer eligible based on patient's age to complete this topic Procedures Procedure Name Priority Date/Time Associated Diagnosis Comments SCREENING MAMMOGRAPHY BI 2-VIEW BREAST INC CAD Routine 08/16/2023 4:01 PM EDT Encounter for screening mammogram for malignant neoplasm of breast URINE ALBUMIN CREATININE RATIO Routine 06/29/2023 ANNUAL BMP BLOOD TEST Routine 06/29/2023 HEMOGLOBIN A1C Routine 06/29/2023 LIPID PANEL Routine 06/29/2023 DIABETES FOOT EXAM Routine 04/10/2023 DXA BONE DENSITY STUDY 1+ SITS AXIAL SKEL Routine 08/11/2021 9:20 AM EDT Encounter for gynecological examination (general) (routine) without abnormal findings HPV Routine 04/28/2021 COLONOSCOPY Routine 02/16/2021 HEPATITIS C SCREENING Routine 12/07/2020 from Last 3 Months or Most Recently Relevant to Health Maintenance Results * SCREENING MAMMOGRAPHY BI 2-VIEW BREAST INC CAD (08/16/2023 4:01 PM EDT) Anatomical Region Laterality Modality Radiographic Juanita ging 08/12/2022 3:24 PM EDT Narrative 08/17/2023 9:55 AM EDT This is a summary report. The complete report is available in the patient's medical record. If you cannot access the medical record, please contact the sending organization for a detailed fax or copy. Study: SCREENING MAMMOGRAPHY BI 2-VIEW BREAST INC CAD Technique: Bilateral full-field digital screening mammography is obtained and read in conjunction with computer aided detection. ??Tomosynthesis as well as 2D C-View imaging were obtained. Comparison: Comparison made to multiple prior, most recent August 12, 2022, and most remote February 27, 2019. Breast composition: The breast tissue is heterogeneously dense, which may obscure small masses. Right breast: History of previous biopsy. ??Multiple masses with waxing and waning pattern typical of fibrocystic changes. ??No suspicious masses, suspicious calcifications or other abnormalities are seen. Left breast: Multiple masses with waxing and waning pattern typical of fibrocystic changes. ??No suspicious masses, suspicious calcifications or other abnormalities are seen. IMPRESSION: Impression: Bilateral breasts: Benign, no specific mammographic evidence of malignancy. ??Normal interval follow-up is recommended in 12 months. BI-RADS: Category 2: Benign Procedure Note Sadia Sanders MD - 11/13/2023 This is a summary report. The complete report is available in thepatient's medical record. If you cannot access the medical record, pleasecontact the sending organization for a detailed fax or copy. Study: SCREENING MAMMOGRAPHY BI 2-VIEW BREAST INC CAD Technique: Bilateral full-field digital screening mammography is obtainedand read in conjunction with computer aided detection. Tomosynthesis aswell as 2D C-View imaging were obtained. Comparison: Comparison made to multiple prior, most recent August 12, 2022,and most remote February 27, 2019. Breast composition: The breast tissue is heterogeneously dense, which mayobscure small masses. Right breast: History of previous biopsy. Multiple masses with waxing andwaning pattern typical of fibrocystic changes. No suspicious masses,suspicious calcifications or other abnormalities are seen. Left breast: Multiple masses with waxing and waning pattern typical offibrocystic changes. No suspicious masses, suspicious calcifications orother abnormalities are seen. IMPRESSION: Impression: Bilateral breasts: Benign, no specific mammographic evidence ofmalignancy. Normal interval follow-up is recommended in 12 months. BI-RADS: Category 2: Benign Ayan Clayton MD IMG XR PROCEDURES * Urine Albumin Creatinine Ratio (06/29/2023) Pathologist [facility] Urine Albumin Creatinine Ratio ABSTRACTED Historical Provider [facility] Annual BMP Blood Test (06/29/2023) Pathologist [facility] Annual BMP Blood Test ABSTRACTED Historical Provider [facility] E * Hemoglobin A1c (06/29/2023) [facility] Hemoglobin A1C 5.2 6.5 % Blood Venous blood specimen / Unknown Historical Provider LAB BLOOD ORDERAB LES * Lipid panel (06/29/2023) [facility] LDL/HDL Ratio 2 0 - 4 Triglycerides 142 0 - 150 mg/dL Cholesterol 172 0 - 200 mg/dL HDL 79 40 mg/dL LDL Cholesterol 65 0 - 100 mg/dL Blood Venous blood specimen / Unknown Historical Provider LAB BLOOD ORDERAB LES * Diabetes Foot Exam (04/10/2023) Health system Diabetes: Annual Foot Exam ABSTRACTED Historical Provider MD HUGO Costa DXA BONE DENSITY STUDY 1+ SITS AXIAL SKEL (08/11/2021 9:20 AM EDT) Anatomical Region Laterality Modality Bone Densitometr y 04/28/2021 10:2 5 AM EST Narrative 08/11/2021 5:18 PM EDT BONE DENSITY SCAN (DEXA) ? FINDINGS: Right forearm T-score is 0.3. ?? (SD relative to 20-29 y/o adult) Z-score is 2.0. ??(SD relative to age matched peers) This is considered normal by WHO criteria. Left Hip T-score is -0.5. Z-score is 1.0. This is considered normal by WHO criteria. Comparison: 09/05/2007 and 10/16/2003 for the left hip without statistically significant change in bone mineral density. IMPRESSION: IMPRESSION: Normal bone mineral density by WHO criteria. The [facility] Department of Internal Medicine recommends using National Osteoporosis Foundation (NOF) guidelines in treatment decisions related to osteoporosis. NOF guidelines suggest considering treatment for postmenopausal women and men aged 50 or older presenting with the following: History of hip or vertebral fracture. T-score = -2.5 (DXA) at the femoral neck, total hip, or spine, after appropriate evaluation to exclude secondary causes. Low bone mass (T-score between -1.0 and -2.5 at the femoral neck or spine) AND a 10-year probability of a hip fracture = 3% OR a 10-year probability of a major osteoporosis-related fracture = 20% based on the [place]-adapted WHO algorithm Please note that all treatment decisions require clinical judgment and consideration of individual patient factors, including patient preferences, co-morbidities, previous drug use, risk factors not captured in the FRAX model (e.g., frailty, falls, vitamin D deficiency, increased bone turnover, interval significant decline in bone density) and possible under- or over-estimation of fracture risk by FRAX. Optional alternative screening schedule based on albert Kincaid., [facility] April 14, 2011 for patients with osteopenia (based on hip BMD T-score) is as follows: * ??advanced osteopenia (T scores -2.00 to -2.49), BMD testing every year * ??moderate osteopenia (T scores -1.50 to -1.99), BMD testing every 5 years mild osteopenia or normal BMD (T scores -1.50 and higher), BMD testing every 15 years Procedure Note Jasmyn Silva MD - 03/15/2022 BONE DENSITY SCAN (DEXA) FINDINGS: Right forearm T-score is 0.3. (SD relative to 20-29 y/o adult) Z-score is 2.0. (SD relative to age matched peers) This is considered normal by WHO criteria. Left Hip T-score is -0.5. Z-score is 1.0. This is considered normal by WHO criteria. Comparison: 09/05/2007 and 10/16/2003 for the left hip without statisticallysignificant change in bone mineral density. IMPRESSION: IMPRESSION: Normal bone mineral density by WHO criteria. The [facility] Department of Internal Medicine recommendsusing National Osteoporosis Foundation (NOF) guidelines in treatment decisions related toosteoporosis. NOF guidelines suggest considering treatment for postmenopausal women and menaged 50 or older presenting with the following: History of hip or vertebral fracture. T-score = -2.5 (DXA) at the femoral neck, total hip, or spine, afterappropriate evaluation to exclude secondary causes. Low bone mass (T-score between -1.0 and -2.5 at the femoral neck or spine)AND a 10-year probability of a hip fracture = 3% OR a 10-year probability of a majorosteoporosis-related fracture = 20% based on the [place]-adapted WHO algorithm Please note that all treatment decisions require clinical judgment andconsideration of individual patient factors, including patient preferences, co- morbidities,previous drug use, risk factors not captured in the FRAX model (e.g., frailty, falls, vitaminD deficiency, increased bone turnover, interval significant decline in bone density) andpossible under- or over-estimation of fracture risk by FRAX. Optional alternative screening schedule based on ainsley Kincaid al., NEJMJanuary 2011 for patients with osteopenia (based on hip BMD T-score) is as follows: * advanced osteopenia (T scores -2.00 to -2.49), BMD testing every year * moderate osteopenia (T scores -1.50 to -1.99), BMD testing every 5years mild osteopenia or normal BMD (T scores -1.50 and higher), BMD testingevery 15 years Lemuel Yang MD IM DXA PROCEDU RES * Cervical Cancer Screening: HPV (04/28/2021) Health system Cervical Cancer Screening: HPV negative,a bstracted Historical Provider [facility] * Colonoscopy (02/16/2021) Health system Colonoscopy no interpretation , abstracted Anatomical Region Laterality Modality Other Historical Provider [facility] * Hepatitis C Screening (12/07/2020) Health system Hepatitis C Screening ABSTRACTED Historical Provider [facility] E from Last 3 Months or Most Recently Relevant to Health Maintenance Advance Directives Documents on File Type Date Recorded 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 Health Care Decision (hx) 05/19/2014 AD QUIÑONEZ DIRECTIVE Health Care Decision (hx) 05/19/2014 AD QUIÑONEZ DIRECTIVE Health Care Decision (hx) 05/19/2014 AD QUIÑONEZ DIRECTIVE Health Care Decision (hx) 05/19/2014 AD QUIÑONEZ DIRECTIVE Health Care Decision (hx) 05/19/2014 AD QUIÑONEZ DIRECTIVE Health Care Decision (hx) 05/19/2014 AD QUIÑONEZ DIRECTIVE Health Care Decision (hx) 05/19/2014 AD QUIÑONEZ DIRECTIVE Health Care Decision (hx) 05/19/2014 AD QUIÑONEZ DIRECTIVE Health Care Decision (hx) 05/19/2014 AD QUIÑONEZ DIRECTIVE Health Care Decision (hx) 05/19/2014 AD QUIÑONEZ DIRECTIVE Health Care Decision (hx) 05/19/2014 AD QUIÑONEZ DIRECTIVE Health Care Decision (hx) 05/19/2014 AD QUIÑONEZ DIRECTIVE Health Care Decision (hx) 05/19/2014 AD QUIÑONEZ DIRECTIVE Health Care Decision (hx) 05/19/2014 AD QUIÑONEZ DIRECTIVE Health Care Decision (hx) 05/15/2014 AD QUIÑONEZ DIRECTIVE Health Care Decision (hx) 05/15/2014 AD QUIÑONEZ DIRECTIVE Health Care Decision (hx) 05/15/2014 AD QUIÑONEZ DIRECTIVE Health Care Decision (hx) 05/15/2014 AD QUIÑONEZ DIRECTIVE Health Care Decision (hx) 05/15/2014 AD QUIÑONEZ DIRECTIVE Health Care Decision (hx) 05/15/2014 AD QUIÑONEZ DIRECTIVE Health Care Decision (hx) 05/15/2014 AD QUIÑONEZ DIRECTIVE Health Care Decision (hx) 05/15/2014 AD QUIÑONEZ DIRECTIVE Health Care Decision (hx) 05/15/2014 AD QUIÑONEZ DIRECTIVE Health Care Decision (hx) 05/15/2014 AD QUIÑONEZ DIRECTIVE Health Care Decision (hx) 05/15/2014 AD QUIÑONEZ DIRECTIVE Health Care Decision (hx) 05/15/2014 AD QUIÑONEZ DIRECTIVE Health Care Decision (hx) 05/15/2014 AD QUIÑONEZ DIRECTIVE Health Care Decision (hx) 05/15/2014 AD QUIÑONEZ DIRECTIVE
--- OUTSIDE RECORDS SUMMARY | 2024-04-24 10:04 | XMS_ITS | Patient Health Record ---
Author Organization [facility] Address [address] [facility] [address] [facility] [place] [address] Care Team Providers Care Napping Machine Operator Name Role Phone ForrestIaine Primary Care Provider NOLAN Perez Unavailable [phone] Allergies Allergen (clinical drug ingredient) Drug/Non Drug Allergy documented on EMR Reaction Allergy Type Onset Date Status metformin Metformin HCl diarrhea Drug Allergy Act godwin sulfamethoxazole / trimethoprim Sulfamethoxazole/Tr imethoprim Unknown Drug Allergy Active Reason For Referral No Information Medications Medication SIG (Take, Route, Frequency, Duration) Notes Start Date End Date Status Alpha Lipoic Acid 200 MG as directed Orally prn Not-Taking HYDROcodone-Acetaminophen 10-325 MG 1 tablet as needed Orally every 6 hrs 25mg qhs Not-Taking Baclofen 20 MG 1 tablet Administer without regards to meals as needed Orally Twice a day Active Acetaminophen 500 MG 1 tablet as needed Orally every 6 hrs Active Clindamycin HCl 300 MG 2 capsules Orally every 8 hrs for 14 day(s) Not-Taking Multivitamin - 1 tablet Orally Once a day Active Doxycycline Monohydrate 100 MG 1 tablet Orally [...] Orally Three times a day prn Not-Taking Problems Problem Type SNOMED Code ICD Code Onset Dates Problem Status W/U Status Risk Notes Problem 11483346 Other chronic pain (G89.29) Active confirmed Problem 941410156 Other hammer toe(s) (acquired), right foot (M20.41) Active confirmed Problem 84276851 Other hammer toe(s) (acquired), left foot (M20.42) Active confirmed Problem 90452820 Type 2 diabetes mellitus with diabetic polyneuropathy , without long-term current use of insulin (E11.42) Active confirmed Problem 1628912879440507 Arthritis of ankle, right (M19.071) Active confirmed Problem 834247984 Ankle arthritis (M19.079) Active confirmed Problem [id number] Arthritis of ankle, left (M19.072) Active confirmed Plan Of Treatment Pending Test Test Name Order Date X ray : Ankle, right, 3 views 07/22/2022 X ray : Foot, left 3v 04/19/2022 DRAIN/INJECT, INTERMEDIATE JOINT/BURSA 0 04/19/2022 DRAIN/INJECT, INTERMEDIATE JOINT/BURSA 0 07/22/2022 DRAIN/INJECT, INTERMEDIATE JOINT/BURSA 0 10/28/2022 DRAIN/INJECT, INTERMEDIATE JOINT/BURSA 1 04/01/2022 DRAIN/INJECT, INTERMEDIATE JOINT/BURSA 1 DRAIN/INJECT, INTERMEDIATE JOINT/BURSA 0 04/21/2021 DRAIN/INJECT, INTERMEDIATE JOINT/BURSA 0 07/20/2021 DRAIN/INJECT, INTERMEDIATE JOINT/BURSA 0 10/19/2021 DRAIN/INJECT, INTERMEDIATE JOINT/BURSA 1 Medications Administered Medication Instructions Date of Administration Dosage Notes Dexamethasone 01/19/2021 0.5 mL Dexamethasone 04/21/2021 0.5 mL Dexamethasone 07/20/2021 0.5 mL Dexamethasone 10/19/2021 0.5 mL Dexamethasone 01/19/2022 0.5 mL Dexamethasone 04/19/2022 0.5 mL Dexamethasone 07/22/2022 0.5 mL Dexamethasone 10/28/2022 0.5 mL dexAMETHasone Sod Phosphate PF 01/30/2023 0.5 m L Kenalog 01/19/2021 0.5 mL Kenalog 04/21/2021 0.5 mL Kenalog 07/20/2021 0.5 mL Kenalog 10/19/2021 0.5 mL Kenalog 01/19/2022 0.5 mL Kenalog 04/19/2022 0.5 mL Kenalog 07/22/2022 0.5 mL Kenalog 10/28/2022 0.5 mL Kenalog 01/30/2023 0.5 mL Medical (General) History Medical History History ICD Code Diabetes type 2 with neuropathy COVID-19 lumbar disc disease centrilobular emphysema varicose veins spinal stenosis hypertension hyperlipidemia fibromyalgia COVID vaccinated X 4 (Moderna) Surgical History Surgery Date(Month/Year) lumbar decompression cholecystectomy lap sleeve gastrectomy lap vent hernia repair ankle fusion-[facility]OS 11/22/2022 Hospitalization History Reason Date(Month/Year) lap sleeve gastrectomy 2018 2 back surgery 10/2018
--- OUTSIDE RECORDS SUMMARY | 2024-04-24 10:05 | XMS_ITS ---
Author Organization [facility] Address [address] [address] Care Team Providers Care Pre Owned Sales Consultant Name Role Phone LENNIE ALFARO Primary Care Provider [phone] REASON FOR VISIT Pre op note and EKG and attest Lab result Encounters Encounter Location Date Provider Diagnosis [facility] [address] [facility] [address] [place] [address] 04/23/2024 LENNIE ALFARO Plan Of Treatment Next Appt Details Provider Name:Aide Mikomario alberto bond, 06/05/2024 10:15:00 AM, [address] [facility] [address], [place], [address], Progress Notes * Yanet KINGDOB:1955 (68 yo F)Acc No.[id number]:04/23/2024 Patient:?Yanet KING :1955???Age:68 Y???Sex:Female Address:[place] [address] * true * Date:? Generated for Printi carmella/Grabiel/eTransmitting on:?04/24/2024 10:04 AM EST
--- OUTSIDE RECORDS SUMMARY | 2024-04-24 10:05 | XMS_ITS ---
Author Organization [facility] Address [address] [place] [address] Care Team Providers Care Actuary Manager Name Role Phone LENNIE ALFARO Primary Care Provider [phone] REASON FOR VISIT Wheelchair rx Medications Medication SIG (Take, Route, Frequency, Duration) Notes Start Date End Date Status Wheelchair - Wheelchair with legs as directed; DX: M15.9, M51.35 for 30 days 03/29/2024 Active Encounters Encounter Location Date Provider Diagnosis [facility] [address] [address] 04/15/2024 LENNIE ALFARO Plan Of Treatment Medication Medication Name Sig Start Date Stop Date Notes Wheelchair - Wheelchair with legs as directed; DX: M15.9, M51.35 for 30 days 03/29/2024 Next Appt Details Provider Name:Aide bond, 06/05/2024 10:15:00 AM, [address] [place] [address], [place], [address], Progress Notes * Yanet KINGDOB:1955 (68 yo F)Acc No.[id number]:04/15/2024 Patient:?Yanet KING :1955???Age:68 Y???Sex:Female Address:[place] [address] * Refills? Refill Wheelchair Miscellaneous, -, 1, Wheelchair with legs as directed; DX: M15.9, M51.35, 30 days, Refills=0 * true * Date:? Generated for Mark weir/Grabiel/Jannieitting on:?04/24/2024 10:05 AM EST
--- OUTSIDE RECORDS SUMMARY | 2024-04-24 10:05 | XMS_ITS ---
Author Organization [facility] Address [address] [address] Care Team Providers Care Skilled Nursing Facilities Professional Name Role Phone Ayan Clayton Primary Care Provider PATRICA Palacios Unavailable [phone] REASON FOR VISIT Billing Encounters Encounter Location Date Provider Diagnosis [facility] [address] [address] 12/05/2022 PATRICA DOYLE Plan Of Treatment No Information Progress Notes * Yanet KINGDOB:1955 (66 yo F)Acc No.[id number]:12/05/2022 Patient:?Yanet King :1955???Age:66 Y???Sex:Female Address:[address], [place], [address] * true * Date:? Generated for Matti carmella/Grabiel/eTransmitting on:?04/24/2024 10:05 AM EST
== END 2024-04-23 08:55 | disposition home or self-care (01) ==
LOC: HO.HOSX 08:54
PROVIDERS: Visit Provider Physician Assistant
DX: Z13.89 Encounter for screening for other disorder (principal)

== ENCOUNTER 2024-04-25 09:14 | Outpatient (AMB) | payer OTHER, SELFPAY ==
--- NOTE | 2024-04-25 09:30 | MHC.OFFVIS ---
Vital Signs 04/25/24 09:32 Height 4 ft 11 in Weight 130 lb BMI 26.3 Intake Visit Reasons: Pre-Op: Right CHINYERE 05/01/24 NE Intake Note: Yanet is a 68 year old female who presents today for a pre op appointment for her Right CHINYERE 05/01/24 NE. Allergies Sulfa (Sulfonamide Antibiotics) Allergy (Severe, Verified 04/25/24 09:32) throat swelling metformin Adverse Reaction (Intermediate, Verified 04/25/24 09:32) diarrhea semaglutide [From Ozempic] Adverse Reaction (Intermediate, Verified 04/25/24 09:32) pancreatitis HPI HPI Pre-Op: Right CHINYERE 05/01/24 NE: Details: Ms. King is a 68-year-old female who presents to the office today for her preoperative appointment for right total hip arthroplasty to be performed on 05/01/2024. She has tried and failed all conservative treatment and has elected to move forward with surgical intervention. Of note, the patient did have a prior left lower extremity DVT in November of 2023 and has been on Eliquis ever since. She reports drug allergies to: Sulfa, metformin and Ozempic. [facility] Medical History (Updated 04/03/24 @ 09:50 by Michelle Guerra, VILMA) History of kidney infection (~08/2023) DVT (deep venous thrombosis) Diabetes Elevated blood pressure reading with diagnosis of hypertension Abdominal hernia Asthma Arthritis Osteoarthritis (arthritis due to wear and tear of joints) COVID-19 vaccine series completed Full dentures Arthritis of left hip Low back pain Liver cyst COPD (chronic obstructive pulmonary disease) Elevated cholesterol Surgical History (Updated 04/01/24 @ 14:49 by Michelle Guerra, RN) S/P insertion of IVC (inferior vena caval) filter (02/07/24) History of total left hip arthroplasty (08/29/23) Hx of gastric bypass Hx of ankle fusion Status post insertion of nerve stimulator Hx of colonoscopy Hx of carpal tunnel repair History of back surgery Social History (Updated 04/03/24 @ 09:47 by Michelle Guerra, VILMA) Household Members: None Housing: Condominium Are you a primary managed care provider to a significant other at home: No Do you presently have visiting nurse or other home services: Yes (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) 75 years or older and lives alone: No Comment: aware of trip hazards Patient Tobacco Use Status: Former Tobacco user Tobacco use type: Cigarette Cigarettes Per Day: 60 Years Smoked: quit 15 years ago Second Hand Smoke Exposure: No service: No Review of Systems Const All systems reviewed & are unremarkable except as noted in HPI and below Physical Exam Const General: cooperative, healthy appearing and no acute distress Resp Effort & Inspection: normal respiratory effort and able to speak in complete sentences Cardio Rate: regular rate Peripheral pulses: Peripheral pulses 2+ throughout Skin Lesions: no lesions Rashes: no rashes Extrem Other: Right hip: Unable to tolerate internal external rotation with reports of groin pain. Able to perform straight leg raise with radiation of pain into the buttock and groin. Able to dorsiflex and plantar flex. Assessment & Plan Assessment & Plan (1) Osteoarthritis of right hip: Code(s): M16.11 - Unilateral primary osteoarthritis, right hip Category: Medical Plan Ms. King is a 68-year-old female who presents to the office today for her preoperative appointment for right total hip arthroplasty to be performed on 05/01/2024. She has tried and failed all conservative treatment and has elected to move forward with surgical intervention. Of note, the patient did have a prior left lower extremity DVT in November of 2023 and has been on Eliquis ever since. She is holding the Eliquis with her last dose being on Monday04/23/24. She reports drug allergies to: Sulfa, metformin and Ozempic Of note, the patient is primarily wheelchair-bound since a recent fall in January. I discussed in detail the procedure and what to expect pre and post operatively. We discussed the risks, benefits and alternatives to the surgery as well as the rehabilitation course. The risks; which include, but are not limited to infection, bleeding, nerve injury, ongoing pain, swelling, and stiffness, perioperative risk of injury to bones and soft tissues, and blood clots. I?ve answered all questions and with their understanding they have consented to move forward with right total hiparthroplasty with Dr. Ruiz. Orders: Orders XR hip RT min 2V Today M25.559 - Pain in unspecified hip Coding Level of Care Code Global (59058) Diagnoses Osteoarthritis of right hip M16.11
[2024-04-25 09:32] VITALS: BMI 26.3
--- OUTSIDE RECORDS SUMMARY | 2024-04-25 12:20 | XMS_ITS | Encounter Summary ---
Author Organization [facility] Address [address] [place] [address] Care Team Providers Care Registered Mail Clerk Name Role Phone Ayan Clayton MD Primary Care Provider [phone] Encounter Details Date Type Department Care Team Description 10/19/2021 Ice Skating Instructor Report Medical Records [address] [place] [address] Skylar Hanna DPM Social History Tobacco Use Types Packs/Day Years Used Date Smoking Tobacco: Former Cigarettes 4 45 1 963 - 03/27/2007 Smokeless Tobacco: Never Alcohol Use Standard Drinks/Week Comments No 0 (1 standard drink = 0.6 oz pur e alcohol) Sex Assigned at Date Recorded Female 07/15/2020 1:36 AM E DT Job Start Date Occupation Industry Not on file Not on file Not on file COVID-19 Exposure Response Date Recorded In the last 10 days, have jodie u been in contact with someone who was confirmed or suspected to have Coronavirus/COVID-19? No / Unsure 10/13/2021 9:43 AM EDT documented as of this encounter Plan of Treatment Not on file documented as of this encounter Visit Diagnoses Not on filedocumented in this encounter Care Teams Registered Mail Clerk Relationship Specialty Start Date End Date Ayan Clayton MD [address] [place], [place] [id number] PCP - General Internal Medicine 09/24/19 documented as of this encounter
--- OUTSIDE RECORDS SUMMARY | 2024-04-25 12:20 | XMS_ITS | Encounter Summary ---
Author Organization [facility] Address [address] [place] [address] Care Team Providers Care Internal Affairs Investigator Name Role Phone Daniel Mota MD Primary Care Provider Unavail able Ayan Clayton MD Primary Care Provider [phone] Encounter Details Date Type Department Care Team Description 11/22/2018 Hospital Medical Records [address] [place] [address] Bashir Booth Social History Tobacco Use Types Packs/Day Years [...] on file documented as of this encounter Plan of Treatment Not on file documented as of this encounter Visit Diagnoses Not on filedocumented in this encounter Care Teams Internal Affairs Investigator Relationship Specialty Start Date End Date Daniel Mota MD PCP - General Internal Medicine 10/20/16 09/23/19 Ayan Clayton MD [address] [place] [address] PCP - General Internal Medicine 09/24/19 documented as of this encounter
--- OUTSIDE RECORDS SUMMARY | 2024-04-25 12:20 | XMS_ITS | Encounter Summary ---
Author Organization [facility] Address [address] [place] [address] Care Team Providers Care Watch And Clock Repair Clerk Name Role Phone Ayan Clayton MD Primary Care Provider [phone] Encounter Details Date Type Department Care Team Description 06/16/2023 Hospital Medical Records [address] [place] [address] Social History Tobacco Use Types Packs/Day Years [...] on filedocumented in this encounter Care Teams Watch And Clock Repair Clerk Relationship Specialty Start Date End Date Ayan Clayton MD [address] [place] [id number] PCP - General Internal Medicine 09/24/19 documented as of this encounter
--- OUTSIDE RECORDS SUMMARY | 2024-04-25 12:20 | XMS_ITS | Encounter Summary ---
Author Organization [facility] Address [address] [place] [address] Care Team Providers Care Cattle Sprayer Name Role Phone Daniel Mota MD Primary Care Provider Unavail Victor Manuel Yu MD Primary Care Provider Unava ilable Daniel Mota MD Primary Care Provider Unavail Ayan Pulliam MD Primary Care Provider [phone] Victor Manuel Gonzales MD Primary Care Provider Unava ilmaximino Encounter Details Date Type Department Care Team Description 03/13/2006 [facility] Medical Records [address] [place] [address] Hugo Palacios MD Social History Tobacco Use Types Packs/Day Years [...] on filedocumented in this encounter Care Teams Cattle Sprayer Relationship Specialty Start Date End Date Daniel Mota MD PCP - General 07/27/1994 12/22/15 Victor Manuel Gonzales MD PCP - General Internal Medicine 07/22/16 10/19/16 Daniel Mota MD PCP - General Internal Medicine 10/20/16 09/23/19 Ayan Clayton MD [address] [place] [id number] PCP - General Internal Medicine 09/24/19 Victor Manuel Gonzales MD PCP - General 12/23/15 07/21/16 documented as of this encounter
--- OUTSIDE RECORDS SUMMARY | 2024-04-25 12:20 | XMS_ITS | Encounter Summary ---
Author Organization [facility] Address [address] [place] [address] Care Team Providers Care Nascar Driver Name Role Phone Daniel Mota MD Primary Care Provider Unavail able Ayan Clayton MD Primary Care Provider [phone] Encounter Details Date Type Department Care Team Description 07/18/2018 Telephone Adult Medicine [facility] [address] [place] [id number] Daniel Mota MD Social History Tobacco Use Types Packs/Day [...] on filedocumented in this encounter Care Teams Nascar Driver Relationship Specialty Start Date End Date Daniel Mota MD PCP - General Internal Medicine 10/20/16 09/23/19 Ayan Clayton MD [address] [place] [id number] PCP - General Internal Medicine 09/24/19 documented as of this encounter
--- OUTSIDE RECORDS SUMMARY | 2024-04-25 12:20 | XMS_ITS | Encounter Summary ---
Author Organization [facility] Address [address] [place] [address] Care Team Providers Care Flat Hammerer Name Role Phone Ayan Clayton MD Primary Care Provider [phone] Encounter Details Date Type Department Care Team Description 03/23/2022 Buzzsaw Operator Helper Report Medical Records [address] [place] [address] Center, [facility] [address] [place] [address] Social History Tobacco Use Types Packs/Day Years [...] Recorded In the last 10 days, have yo u been in contact with someone who was confirmed or suspected to have Coronavirus/COVID-19? No / Unsure 03/09/2022 8:49 AM EST documented as of this encounter Plan of Treatment Not on file documented as of this encounter Visit Diagnoses Not on filedocumented in this encounter Care Teams Flat Hammerer Relationship Specialty Start Date End Date Ayan Clayton MD [address] [place], [place] [phone] PCP - General Internal Medicine 09/24/19 documented as of this encounter
--- OUTSIDE RECORDS SUMMARY | 2024-04-25 12:20 | XMS_ITS | Encounter Summary ---
Author Organization [facility] Address [address] [place] [address] Care Team Providers Care Wool Broker Name Role Phone Ayan Clayton MD Primary Care Provider [phone] Encounter Details Date Type Department Care Team Description 03/08/2022 Hosiery Mender Report Medical Records [address] [place] [address] Blu Us I., PH.D Social History Tobacco Use Types Packs/Day Years [...] on filedocumented in this encounter Care Teams Wool Broker Relationship Specialty Start Date End Date Ayan Clayton MD [address] [place] [address] PCP - General Internal Medicine 09/24/19 documented as of this encounter
--- OUTSIDE RECORDS SUMMARY | 2024-04-25 12:20 | XMS_ITS | Encounter Summary ---
Author Organization [facility] Address [address] [place] [address] Care Team Providers Care Licensed Life And Health Agent Name Role Phone Ayan Clayton MD Primary Care Provider [phone] Encounter Details Date Type Department Care Team Description 03/10/2022 Surgery Consultant Report Medical Records [address] [place] [address] Rell Leavitt Social History Tobacco Use Types Packs/Day Years [...] on filedocumented in this encounter Care Teams Licensed Life And Health Agent Relationship Specialty Start Date End Date Ayan Clayton MD [address] [place], [place] [phone] PCP - General Internal Medicine 09/24/19 documented as of this encounter
--- OUTSIDE RECORDS SUMMARY | 2024-04-25 12:20 | XMS_ITS | Encounter Summary ---
Author Organization [facility] Address [address] [place] [address] Care Team Providers Care Impregnator Electrolytic Capacitors Name Role Phone Ayan Clayton MD Primary Care Provider [phone] Encounter Details Date Type Department Care Team Description 04/19/2022 Environmental Science Program Director Report Medical Records [address] [place] [address] Skylar Hanna DPM Social History Tobacco Use [...] suspected to have Coronavirus/COVID-19? No / Unsure 04/08/2022 2:51 PM EST documented as of this encounter Plan of Treatment Not on file documented as of this encounter Visit Diagnoses Not on filedocumented in this encounter Care Teams Impregnator Electrolytic Capacitors Relationship Specialty Start Date End Date Ayan Clayton MD [address] [place] [address] PCP - General Internal Medicine 09/24/19 documented as of this encounter
--- OUTSIDE RECORDS SUMMARY | 2024-04-25 12:20 | XMS_ITS | Encounter Summary ---
Author Organization [facility] Address [address] [place] [address] Care Team Providers Care Net Developer Architect Name Role Phone Ayan Clayton MD Primary Care Provider Reason for Visit * Reason Onset Date Comments Faxed Order 06/26/2023 [facility] Encounter Details Date Type Department Care Team Description 06/26/2023 Telephone Adult Medicine [facility] [address] [place] [phone] Ayan Clayton MD [address] [place] [phone] Faxed Order ([facility]) Social History Tobacco Use Types Packs/Day Years [...] on file documented as of this encounter Miscellaneous Notes * Telephone Encounter - Howard Soria - 06/26/2023 12:17 PM EDT DOPE WEIGH OPERATOR order received and placed in providers bin documented in this encounter Plan of Treatment Not on file documented as of this encounter Visit Diagnoses Not on filedocumented in this encounter Care Teams Net Developer Architect Relationship Specialty Start Date End Date Ayan Clayton MD [address] [place] [id number] PCP - General Internal Medicine 09/24/19 documented as of this encounter
--- OUTSIDE RECORDS SUMMARY | 2024-04-25 12:20 | XMS_ITS | Encounter Summary ---
Author Organization [facility] Address [address] [place] [address] Care Team Providers Care Glue Mounter Operator Name Role Phone Ayan Clayton MD Primary Care Provider [phone] Encounter Details Date Type Department Care Team Description 06/19/2023 Orders Only Medical Records [address] [place] [address] Bird Nielson Np Social History Tobacco Use Types Packs/Day Years [...] on file documented as of this encounter Procedures Procedure Name Priority Date/Time Associated Diagnosis Comments OUTSIDE PATHOLOGY Routine 06/16/2023 documented in this encounter Results * OUTSIDE PATHOLOGY (06/16/2023) Stormy Nielson OUTSIDE LAB documented in this encounter Visit Diagnoses Not on filedocumented in this encounter Care Teams Glue Mounter Operator Relationship Specialty Start Date End Date Ayan Clayton MD [address] [place], [place] [phone] PCP - General Internal Medicine 09/24/19 documented as of this encounter
--- OUTSIDE RECORDS SUMMARY | 2024-04-25 12:20 | XMS_ITS | Encounter Summary ---
Author Organization [facility] Address [address] [place] [address] Care Team Providers Care Electrical Machine Builder Name Role Phone Daniel Mota MD Primary Care Provider Unavail able Ayan Clayton MD Primary Care Provider [phone] Encounter Details Date Type Department Care Team Description 12/06/2018 Home Health Certification Medical Records [address] [place] [address] Home, [facility] [address] [facility] [address] [place] [address] Social History Tobacco Use Types Packs/Day Years [...] on filedocumented in this encounter Care Teams Electrical Machine Builder Relationship Specialty Start Date End Date Daniel Mota MD PCP - General Internal Medicine 10/20/16 09/23/19 Ayan Clayton MD [address] [place] [address] PCP - General Internal Medicine 09/24/19 documented as of this encounter
--- OUTSIDE RECORDS SUMMARY | 2024-04-25 12:20 | XMS_ITS | Encounter Summary ---
Author Organization [facility] Address [address] [place] [address] Care Team Providers Care Bevel Gear Generator Operator Name Role Phone Daniel Mota MD Primary Care Provider Ayan Rubalcava MD Primary Care Provider [phone] Encounter Details Date Type Department Care Team Description 11/19/2018 Orders Only Medical Records [address] [place] [address] Abstract, Provider Social History Tobacco Use Types Packs/Day Years [...] Name Priority Date/Time Associated Diagnosis Comments OUTSIDE CT Routine 11/18/2018 OUTSIDE PLAIN FILM Routine 11/18/2018 documented in this encounter Results * OUTSIDE CT (11/18/2018) Provider Abstract RADIOLOGY * OUTSIDE PLAIN FILM (11/18/2018) Provider Abstract RADIOLOGY documented in this encounter Visit Diagnoses Not on filedocumented in this encounter Care Teams Bevel Gear Generator Operator Relationship Specialty Start Date End Date Daniel Mota MD PCP - General Internal Medicine 10/20/16 09/23/19 Ayan Clayton MD [address] [place] [phone] PCP - General Internal Medicine 09/24/19 documented as of this encounter
--- OUTSIDE RECORDS SUMMARY | 2024-04-25 12:20 | XMS_ITS | Encounter Summary ---
Author Organization [facility] Address [address] [place] [address] Care Team Providers Care Timber Treatment Plant Operator Name Role Phone yAan Clayton MD Primary Care Provider [phone] Reason for Visit * Reason Comments E-prescribe Rx Request Encounter Details Date Type Department Care Team Description 11/16/[address] [facility] [address] [place], [place] [phone] Ayan Clayton MD [address] [place] [address] [phone] E-prescribe Rx Request Social History Tobacco Use Types Packs/Day Years [...] suspected to have Coronavirus/COVID-19? No / Unsure 11/04/2021 2:00 PM EDT documented as of this encounter Miscellaneous Notes * Telephone Encounter - Roger Velasco M.A. - 11/16/2021 11:05 AM EDT Cetirizine & hydroxyzine 25MG refills not appropriate - both filled 10/19 #90 Hydroxyzine 10MG not due - filled 10/19 #180 Atorvastatin refill also not appropriate - filled 07/27 #30 w/5 refills Ibuprofen due. Lab Results Component Value Date NA 144 09/02/2021 K 4.1 09/02/2021 CO2 27 09/02/2021 CL 110 09/02/2021 BUN 11 09/02/2021 CREAT 0.84 09/02/2021 GLU 84 09/02/2021 CA 9.7 09/02/2021 GFR > 60 09/02/2021 KAY 05/07/2021 w/PCP Next OV 12/07/2021 w/PCP * Telephone Encounter - Elisabeth Danny - 11/16/2021 8:02 AM EDT Patient would like script to be: E-PRESCRIBED/FAXED TO PHARMACY WHEN WAS THE PATIENT'S LAST APPOINTMENT IN ADULT MEDICINE? 05/07/21 WHEN WAS THE LAST TIME THE PATIENT SAW THEIR PCP? Same as above Does patient have an upcoming appointment? Yes 12/07/21 (THE MEDICATION REQUESTED IS ON THE MED LIST ABOVE) All of the medications requested were on the CURRENT MEDS list Did you check the Pharmacy information above?: YES Patient wants: 90 -day supply Is this a mail order prescription request ? NO If the refill is from a FAXED refill request what is the RX # listed on the fax? N/A Patients current insurance carrier is: [place] / Plan: [place] / Product Type: MEDICARE [id number] documented in this encounter Plan of Treatment Not on file documented as of this encounter Visit Diagnoses Not on filedocumented in this encounter Care Teams Timber Treatment Plant Operator Relationship Specialty Start Date End Date Ayan Clayton MD [address] [place] [address] PCP - General Internal Medicine 09/24/19 documented as of this encounter
--- OUTSIDE RECORDS SUMMARY | 2024-04-25 12:20 | XMS_ITS | Encounter Summary ---
Author Organization [facility] Address [address] [place] [address] Care Team Providers Care Gusset Edger Name Role Phone Ayan Clayton MD Primary Care Provider [phone] Reason for Visit * Reason Comments E-prescribe Rx Request Encounter Details Date Type Department Care Team Description 02/15/2022 Refill Adult Medicine [facility] [address] [place], [place] [phone] Ayan Clayton MD [address] [place] [address] [phone] E-prescribe Rx Request Social History Tobacco Use [...] suspected to have Coronavirus/COVID-19? No / Unsure 01/21/2022 10:37 AM EDT documented as of this encounter Miscellaneous Notes * Telephone Encounter - Afsaneh Mtz M.A. - 02/15/2022 2:28 PM EST Lab Results Component Value Date NA 144 09/02/2021 K 4.1 09/02/2021 CO2 27 09/02/2021 CL 110 09/02/2021 BUN 11 09/02/2021 CREAT 0.84 09/02/2021 GLU 84 09/02/2021 CA 9.7 09/02/2021 GFR > 60 09/02/2021 Last appt 01/21/22 * Telephone Encounter - Elisabeth Delgado - 02/15/2022 1:47 PM EST Patient would like script to be: E-PRESCRIBED/FAXED TO PHARMACY WHEN WAS THE PATIENT'S LAST APPOINTMENT IN ADULT MEDICINE? 01/21/22 WHEN WAS THE LAST TIME THE PATIENT SAW THEIR PCP? Same as above Does patient have an upcoming appointment? Yes 06/23/22 (THE MEDICATION REQUESTED IS ON THE MED [...] insurance carrier is: [place] / [place] / Product Type: MEDICARE [id number] documented in this encounter Plan of Treatment Not on file documented as of this encounter Visit Diagnoses Not on filedocumented in this encounter Care Teams Gusset Edger Relationship Specialty Start Date End Date Ayan Clayton MD [address] [place] [address] PCP - General Internal Medicine 09/24/19 documented as of this encounter
--- OUTSIDE RECORDS SUMMARY | 2024-04-25 12:20 | XMS_ITS | Encounter Summary ---
Author Organization [facility] Address [address] [place] [address] Care Team Providers Care Leather Lacer Name Role Phone Daniel Mota MD Primary Care Provider [facility] Ayan Pulliam MD Primary Care Provider [phone] Encounter Details Date Type Department Care Team Description 10/17/2018 Orders Only Medical Records [address] [place] [address] Torrey Moreno MD [address] [place] [address] [address] [place] [address] Social History Tobacco Use Types Packs/Day Years [...] Name Priority Date/Time Associated Diagnosis Comments OUTSIDE PLAIN FILM Routine 10/16/2018 documented in this encounter Results * OUTSIDE PLAIN FILM (10/16/2018) Torrey Moreno MD RADIOLOGY documented in this encounter Visit Diagnoses Not on filedocumented in this encounter Care Teams Leather Lacer Relationship Specialty Start Date End Date Daniel Mota MD PCP - General Internal Medicine 10/20/16 09/23/19 Ayan Clayton MD [address] [place] [address] PCP - General Internal Medicine 09/24/19 documented as of this encounter
--- OUTSIDE RECORDS SUMMARY | 2024-04-25 12:20 | XMS_ITS | Encounter Summary ---
Author Organization [facility] Address [address] [place] [address] Care Team Providers Care Job Site Superintendent Name Role Phone Ayan Clayton MD Primary Care Provider [phone] Encounter Details Date Type Department Care Team Description 04/12/2022 Salary And Wage Administrator Report Medical Records [address] [place] [address] Rell Leavitt Social History Tobacco Use Types [...] on filedocumented in this encounter Care Teams Job Site Superintendent Relationship Specialty Start Date End Date Ayan Clayton MD [address] [place], [place] [phone] PCP - General Internal Medicine 09/24/19 documented as of this encounter
--- OUTSIDE RECORDS SUMMARY | 2024-04-25 12:20 | XMS_ITS | Encounter Summary ---
Author Organization [facility] Address [address] [place] [address] Care Team Providers Care Java Software Engineer Name Role Phone Daniel Mota MD Primary Care Provider [facility] Ayan Pulliam MD Primary Care Provider [phone] Encounter Details Date Type Department Care Team Description 06/11/2018 Orders Only General Surgery - [place] [address] [facility] [address] [place] [address] Torrey Moreno MD [address] [place] [address] [address] [place], [place] [phone] Morbid obesity with BMI of 50.0-59.9, adult (HCC) Social History Tobacco Use Types Packs/Day Years [...] Procedure Name Priority Date/Time Associated Diagnosis Comments CHG RADIOLOGIC EXAM UPR GI TRC DOUBLE CONTRAST STUDY Routine 05/03/2018 Morbid obesity with BMI of 50.0-59.9, adult (HCC) documented in this encounter Results * (UGI) CONTRAST X-RAY OF UPPER GI TRACT (05/03/2018) Torrey Moreno MD OUTSIDE RADIOLOGY documented in this encounter Visit Diagnoses Diagnosis Morbid obesity with BMI of 50.0-59.9, adult (HCC) documented in this encounter Care Teams Java Software Engineer Relationship Specialty Start Date End Date Daniel Mota MD PCP - General Internal Medicine 10/20/16 09/23/19 Ayan Clayton MD [address] [place] [address] PCP - General Internal Medicine 09/24/19 documented as of this encounter
--- OUTSIDE RECORDS SUMMARY | 2024-04-25 12:20 | XMS_ITS | Encounter Summary ---
Author Organization [facility] Address [address] [place] [address] Care Team Providers Care Solid Waste Collection Worker Name Role Phone Daniel Mota MD Primary Care Provider Ayan Rubalcava MD Primary Care Provider [phone] Reason for Visit * Reason Comments E-prescribe Rx Request Encounter Details Date Type Department Care Team Description 10/12/2018 Refill Pulmonology - [place] [address] [facility] [address] [place] [phone] Carlos Hurley MD [address] [facility] [address] [place] [phone] E-prescribe Rx Request Social History Tobacco Use [...] documented as of this encounter Visit Diagnoses Diagnosis Centrilobular emphysema (HCC) Other emphysema Snoring Other dyspnea and respiratory abnormality Morbid obesity with BMI of 50.0-59.9, adult (HCC) Former smoker Personal history of tobacco use, presenting hazards to health Allergic rhinitis due to pollen, unspecified seasonality Post-nasal drainage Unspecified sinusitis (chronic) documented in this encounter Care Teams Solid Waste Collection Worker Relationship Specialty Start Date End Date Daniel Mota MD PCP - General Internal Medicine 10/20/16 09/23/19 Ayan Clayton MD [address] [place] [address] PCP - General Internal Medicine 09/24/19 documented as of this encounter
--- OUTSIDE RECORDS SUMMARY | 2024-04-25 12:20 | XMS_ITS | Encounter Summary ---
Author Organization [facility] Address [address] [place] [address] Care Team Providers Care Care Center Manager Name Role Phone Ayan Clayton MD Primary Care Provider [phone] Reason for Visit * Reason Comments E-prescribe Rx Request Encounter Details Date Type Department Care Team Description 09/13/2021 Refill Endocrinology - [place] [address] [place] [address] Juan Alberto Kendall MD [address] [place], [place] [phone] E-prescribe Rx Request Social History Tobacco Use [...] suspected to have Coronavirus/COVID-19? 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
--- OUTSIDE RECORDS SUMMARY | 2024-04-25 12:20 | XMS_ITS | Encounter Summary ---
Author Organization [facility] Address [address] [place] [address] Care Team Providers Care Switchboard Operator Assistant Name Role Phone Ayan Clayton MD Primary Care Provider [phone] Reason for Visit * Reason Onset Date Comments APPOINTMENT 02/14/2022 Encounter Details Date Type Department Care Team Description 02/14/2022 Telephone Nephrology - [place] [address] [place], [place] [phone] Vega Navarro MD [address] [place], [place] [phone] APPOINTMENT Social History Tobacco Use Types Packs/Day Years [...] encounter Miscellaneous Notes * Telephone Encounter - Ruby Laith - 02/14/2022 10:56 AM EST Called patient to r/s 02/[address] Navarro and offered her an appointment in April. Patient declined saying she needs to be seen sooner as she is having issues. Not sure where to place pt. documented in this encounter Plan of Treatment Not on file documented as of this encounter Visit Diagnoses Not on filedocumented in this encounter Care Teams Switchboard Operator Assistant Relationship Specialty Start Date End Date Ayan Clayton MD [address] [place] [address] PCP - General Internal Medicine 09/24/19 documented as of this encounter
--- OUTSIDE RECORDS SUMMARY | 2024-04-25 12:20 | XMS_ITS | Encounter Summary ---
Author Organization [facility] Address [address] [place] [address] Care Team Providers Care Pullman Car Clerk Name Role Phone Ayan Clayton MD Primary Care Provider [phone] Encounter Details Date Type Department Care Team Description 03/23/2022 Orders Only [facility] Lung Screening Program [place] [address] [facility] [address] [place] [phone] Frank Hampton MD [address] [facility] [address] [place] [address] History of tobacco abuse Social History Tobacco Use Types Packs/Day Years [...] Procedure Name Priority Date/Time Associated Diagnosis Comments CT LOW DOSE LUNG SCREEN ANNUAL Routine 03/23/2022 History of tobacco abuse documented in this encounter Results * CT LOW DOSE LUNG SCREEN ANNUAL (03/23/2022) Frank Hampton MD CT SCANS documented in this encounter Visit Diagnoses Diagnosis History of tobacco abuse Personal history of tobacco use, presenting hazards to health documented in this encounter Care Teams Pullman Car Clerk Relationship Specialty Start Date End Date Ayan Clayton MD [address] [place] [address] PCP - General Internal Medicine 09/24/19 documented as of this encounter
--- OUTSIDE RECORDS SUMMARY | 2024-04-25 12:20 | XMS_ITS | Encounter Summary ---
Author Organization [facility] Address [address] [place] [address] Care Team Providers Care Metal Fabricator Name Role Phone Ayan Clayton MD Primary Care Provider [phone] Reason for Visit * Reason Comments E-prescribe Rx Request Encounter Details Date Type Department Care Team Description 02/15/2022 Refill Gastroenterology - [place] [address] [facility] [address] [place] [address] Jerrod Joe PA-C E-prescribe Rx Request Social History Tobacco Use [...] encounter Miscellaneous Notes * Telephone Encounter - Yenny Herbert M.A. - 02/16/2022 8:22 AM EST [place] 12/07/2020 documented in this encounter Plan of Treatment Not on file documented as of this encounter Visit Diagnoses Not on filedocumented in this encounter Care Teams Metal Fabricator Relationship Specialty Start Date End Date Ayan Clayton MD [address] [place] [address] PCP - General Internal Medicine 09/24/19 documented as of this encounter
--- OUTSIDE RECORDS SUMMARY | 2024-04-25 12:20 | XMS_ITS | Encounter Summary ---
Author Organization [facility] Address [address] [place] [address] Care Team Providers Care Scrap Preparation Supervisor Name Role Phone Ayan Clayton MD Primary Care Provider [phone] Reason for Visit * Reason Comments E-prescribe Rx Request Encounter Details Date Type Department Care Team Description 12/10/2021 Refill Endocrinology - [place] [address] [place] [address] Juan Alberto Kendall MD [address] [place], [place] [phone] E-prescribe Rx Request Social History Tobacco Use [...] suspected to have Coronavirus/COVID-19? 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
--- OUTSIDE RECORDS SUMMARY | 2024-04-25 12:20 | XMS_ITS | Encounter Summary ---
Author Organization [facility] Address [address] [place] [address] Care Team Providers Care Asp Web Developer Name Role Phone Daniel Mota MD Primary Care Provider [facility] Ayan Pulliam MD Primary Care Provider [phone] Encounter Details Date Type Department Care Team Description 08/03/2018 Orders Only Adult Medicine [facility] [address] [place] [address] Daniel Mota MD Type 2 diabetes mellitus with chronic kidney disease, with long-term current use of insulin, unspecified CKD stage (HCC) (Primary Dx) Social History Tobacco Use Types Packs/Day Years [...] as of this encounter Plan of Treatment Scheduled Orders Name Type Priority Associated Diagnoses Orde r Schedule CONT GLUC MNTR PHYSICIAN/QHP PROVIDED EQUIPTMENT Other Routine Type 2 diabetes mellitus with chronic kidney disease, with long-term current use of insulin, unspecified CKD stage (HCC) Ordered: 08/03/2018 documented as of this encounter Visit Diagnoses Diagnosis Type 2 diabetes mellitus with chronic kidney disease, with long-term current use of insulin, unspecified CKD stage (HCC)- Primary documented in this encounter Care Teams Asp Web Developer Relationship Specialty Start Date End Date Daniel Mota MD PCP - General Internal Medicine 10/20/16 09/23/19 Ayan Clayton MD [address] [place] [address] PCP - General Internal Medicine 09/24/19 documented as of this encounter
--- OUTSIDE RECORDS SUMMARY | 2024-04-25 12:21 | XMS_ITS ---
Author Organization [facility] Address [address] [place] [address] Care Team Providers Care Gastroenterology Professor Name Role Phone LENNIE ALFARO Primary Care Provider [phone] REASON FOR VISIT Wheelchair rx Medications Medication SIG (Take, Route, Frequency, Duration) Notes Start Date End Date Status Wheelchair - Wheelchair with legs as directed; DX: M15.9, M51.35 for 30 days 03/29/2024 Active Encounters Encounter Location Date Provider Diagnosis [facility] [address] [address] 04/15/2024 LENNIE ALFARO Plan Of Treatment Medication Medication Name Sig Start Date Stop Date Notes Wheelchair - Wheelchair with legs as directed; DX: M15.9, M51.35 for 30 days 03/29/2024 Next Appt Details Provider Name:Aide bond, 06/05/2024 10:15:00 AM, [address] [place] [address], [place], [address], Progress Notes * Yanet KINGDOB:1955 (68 yo F)Acc No.[id number]:04/15/2024 Patient:?Yanet KING :1955???Age:68 Y???Sex:Female [place] [address] * Refills? Refill Wheelchair Miscellaneous, -, 1, Wheelchair with legs as directed; DX: M15.9, M51.35, 30 days, Refills=0 * true * Date:? Generated for Mark weir/Grabiel/Jannieitting on:?04/25/2024 12:21 PM EST
--- OUTSIDE RECORDS SUMMARY | 2024-04-25 12:21 | XMS_ITS | Encounter Summary ---
Author Organization [facility] Address [address] [place] [address] Care Team Providers Care Manager Fine Dining Name Role Phone Ayan Clayton MD Primary Care Provider [phone] Encounter Details Date Type Department Care Team Description 08/15/2023 Orders Only Pulmonology - [place] 175 [facility] [address] [place] [phone] Jil Freeman APRN [address] [facility] [address] [place] [phone] Chronic bronchitis, unspecified chronic bronchitis type (HCC); Centrilobular emphysema (HCC); Pre-operative respiratory examination Social History Tobacco Use Types Packs/Day Years [...] Date/Time Associated Diagnosis Comments CHG RADIOLOGIC EXAM CHEST 2 VIEWS Routine 08/11/2023 Chronic bronchitis, unspecified chronic bronchitis type (HCC) Centrilobular emphysema (HCC) Pre-operative respiratory examination documented in this encounter Results * RADIOLOGIC EXAM CHEST 2 VIEWS (08/11/2023) Jil Lydia EVANGELISTA RADIOLOGY documented in this encounter Visit Diagnoses Diagnosis Chronic bronchitis, unspecified chronic bronchitis type (HCC) Centrilobular emphysema (HCC) Other emphysema Pre-operative respiratory examination documented in this encounter Care Teams Manager Fine Dining Relationship Specialty Start Date End Date Ayan Clayton MD [address] [place] [address] PCP - General Internal Medicine 09/24/19 documented as of this encounter
--- OUTSIDE RECORDS SUMMARY | 2024-04-25 12:21 | XMS_ITS | Encounter Summary ---
Author Organization [facility] Address [address] [place] [address] Care Team Providers Care Data Reporting Analyst Name Role Phone yAan Clayton MD Primary Care Provider [phone] Encounter Details Date Type Department Care Team Description 07/03/2023 Orders Only Medical Records [address] [place] [address] Social History Tobacco Use Types Packs/Day Years [...] Name Priority Date/Time Associated Diagnosis Comments OUTSIDE LAB Routine 06/14/2023 OUTSIDE MRI/MRA Routine 06/10/[address] Routine 06/10/2023 documented in this encounter Results * OUTSIDE LAB (06/14/2023) [facility] * OUTSIDE CT (06/10/2023) [facility] RADIOLOGY * OUTSIDE MRI/MRA (06/10/2023) [facility] RADIOLOGY documented in this encounter Visit Diagnoses Not on filedocumented in this encounter Care Teams Data Reporting Analyst Relationship Specialty Start Date End Date Ayan Clayton MD [address] [place] [address] PCP - General Internal Medicine 09/24/19 documented as of this encounter
--- OUTSIDE RECORDS SUMMARY | 2024-04-25 12:21 | XMS_ITS | Encounter Summary ---
Author Organization [facility] Address [address] [place] [address] Care Team Providers Care Industrial Arts Teacher Name Role Phone Daniel Mota MD Primary Care Provider [facility] Ayan Pulliam MD Primary Care Provider [phone] Encounter Details Date Type Department Care Team Description 02/15/2019 Orders Only General Surgery - [place] [address] [facility] [address] [place] [address] Torrey Moreno MD [address] [place] [address] [address] [place], [place] [phone] Other complications of other bariatric procedure Social History Tobacco Use Types Packs/Day Years [...] UPR GI TRC DOUBLE CONTRAST STUDY Routine 02/15/2019 Other complications of other bariatric procedure documented in this encounter Results * (UGI) CONTRAST X-RAY OF UPPER GI TRACT (02/15/2019) Torrey Moreno MD OUTSIDE RADIOLOGY documented in this encounter Visit Diagnoses Diagnosis Other complications of other bariatric procedure documented in this encounter Care Teams Industrial Arts Teacher Relationship Specialty Start Date End Date Daniel Mota MD PCP - General Internal Medicine 10/20/16 09/23/19 Ayan Clayton MD [address] [place] [address] PCP - General Internal Medicine 09/24/19 documented as of this encounter
--- OUTSIDE RECORDS SUMMARY | 2024-04-25 12:21 | XMS_ITS ---
Author Organization [facility] Address [address] [address] Care Team Providers Care Icer Hand Name Role Phone LENNIE ALFARO Primary Care Provider REASON FOR VISIT Pre op note and EKG and attest Lab result Encounters Encounter Location Date Provider Diagnosis [facility] 294 [facility] [address] [place] [address] 04/23/2024 LENNIE ALFARO Plan Of Treatment Next Appt Details Provider Name:Aide bond, 06/05/2024 10:15:00 AM, [address] [facility] [address], [place], [address], Progress Notes * Yanet KINGDOB:1955 (68 yo F)Acc No.[id number]:04/23/2024 Patient:?Yanet KING :1955???Age:68 Y???Sex:Female Address:[place] [address] * true * Date:? Generated for Printi carmella/Grabiel/eTransmitting on:?04/25/2024 12:20 PM EST
--- OUTSIDE RECORDS SUMMARY | 2024-04-25 12:21 | XMS_ITS | Encounter Summary ---
Author Organization [facility] Address [address] [place] [address] Care Team Providers Care Special Educator Name Role Phone Daniel Mota MD Primary Care Provider Unavail Victor Manuel Yu MD Primary Care Provider Unava ilable Daniel Mota MD Primary Care Provider Unavail able Ayan Clayton MD Primary Care Provider [phone] Victor Manuel Gonzales MD Primary Care Provider Unava ilable Reason for Referral * Specialist (Routine) - Authorized/Booked Specialty Diagnoses / Procedures Referred By Contact Referred To Contact INTERVENTIONAL RADIOLOGY Procedures REFERRAL TO INTERVENTIONAL RADIOLOGY Bharath Rico MD [address] [place] [address]99 Ext Interventional Rad Referral ID Status Reason Start Date Expiration Date V isits Requested Visits Authorized SEE REVIEW 11/06/12 Authorized/ Booked 11/27/2012 02/27/2013 1 1 * Specialist (Routine) - Authorized/Booked Specialty Diagnoses / Procedures Referred By Contact Referred To Contact INTERVENTIONAL RADIOLOGY Diagnoses Lymphadenopathy Procedures REFERRAL TO INTERVENTIONAL RADIOLOGY Bharath Rico MD [address] [place] [address] 73544 Ext Interventional Rad Referral ID Status Reason Start Date Expiration Date V isits Requested Visits Authorized SEE REVIEW 11/06/12 Authorized/ Booked 11/27/2012 02/27/2013 1 1 Encounter Details Date Type Department Care Team Description 11/27/2012 Orders Only General Surgery [address] [place] [address] Bharath Rico MD [address] [place] [address] 26537 Lymphadenopathy (Primary Dx) Social History Tobacco Use Types Packs/Day Years Used Date Smoking Tobacco: Former Cigarettes 1.5 45 Q uit: 03/27/2007 Smokeless Tobacco: Never Alcohol Use Standard [...] as of this encounter Visit Diagnoses Diagnosis Lymphadenopathy- Primary Enlargement of lymph nodes documented in this encounter Care Teams Special Educator Relationship Specialty Start Date End Date Daniel Mota MD PCP - General 07/27/1994 12/22/15 Victor Manuel Gonzales MD PCP - General Internal Medicine 07/22/16 10/19/16 Daniel Mota MD PCP - General Internal Medicine 10/20/16 09/23/19 Ayan Clayton MD [address] [place] [address] 14537 PCP - General Internal Medicine 09/24/19 Victor Manuel Gonzales MD PCP - General 12/23/15 07/21/16 documented as of this encounter
--- OUTSIDE RECORDS SUMMARY | 2024-04-25 12:21 | XMS_ITS | Encounter Summary ---
Author Organization [facility] Address [address] [place] [address] Care Team Providers Care Affiliate Marketing Specialist Name Role Phone Daniel Mota MD Primary Care Provider Unavail Victor Manuel Yu MD Primary Care Provider Unava ilable Daniel Mota MD Primary Care Provider Unavail Ayan Pulliam MD Primary Care Provider [phone] Victor Manuel Gonzales MD Primary Care Provider Unava ilmaximino Encounter Details Date Type Department Care Team Description 12/11/2013 PROGRESSIVE ASSEMBLER AND FITTER/Mass[employer] Report Medical Records [address] [place] [address] Abstract, Provider Social History Tobacco Use Types [...] on filedocumented in this encounter Care Teams Affiliate Marketing Specialist Relationship Specialty Start Date End Date Daniel Mota MD PCP - General 07/27/1994 12/22/15 Victor Manuel Gonzales MD PCP - General Internal Medicine 07/22/16 10/19/16 Daniel Mota MD PCP - General Internal Medicine 10/20/16 09/23/19 Ayan Clayton MD [address] [place] [address] PCP - General Internal Medicine 09/24/19 Victor Manuel Gonzales MD PCP - General 12/23/15 07/21/16 documented as of this encounter
--- OUTSIDE RECORDS SUMMARY | 2024-04-25 12:21 | XMS_ITS | Encounter Summary ---
Author Organization [facility] Address [address] [place] [address] Care Team Providers Care Form Setter Metal Road Forms Name Role Phone Ayan Clayton MD Primary Care Provider [phone] Encounter Details Date Type Department Care Team Description 06/11/2023 Director Business Development Report Medical Records [address] [place] [address] Vega Garcia Social History Tobacco Use Types Packs/Day Years [...] on filedocumented in this encounter Care Teams Form Setter Metal Road Forms Relationship Specialty Start Date End Date Ayan Clayton MD [address] [place] [address] PCP - General Internal Medicine 09/24/19 documented as of this encounter
--- OUTSIDE RECORDS SUMMARY | 2024-04-25 12:21 | XMS_ITS | Encounter Summary ---
Author Organization [facility] Address [address] [place] [address] Care Team Providers Care Elevator Operator Freight Name Role Phone Daniel Mota MD Primary Care Provider Unavail Victor Manuel Yu MD Primary Care Provider Unava ilable Daniel Mota MD Primary Care Provider Unavail Ayan Pulliam MD Primary Care Provider [phone] Victor Manuel Gonzales MD Primary Care Provider Unava ilmaximino Encounter Details Date Type Department Care Team Description 07/22/2013 Refill Adult Medicine [address] [address] Daniel Mota MD Social History Tobacco Use [...] on filedocumented in this encounter Care Teams Elevator Operator Freight Relationship Specialty Start Date End Date Daniel Mota MD PCP - General 07/27/1994 12/22/15 Victor Manuel Gonzales MD PCP - General Internal Medicine 07/22/16 10/19/16 Daniel Mota MD PCP - General Internal Medicine 10/20/16 09/23/19 Ayan Clayton MD [address] [place] [address] PCP - General Internal Medicine 09/24/19 Victor Manuel Gonzales MD PCP - General 12/23/15 07/21/16 documented as of this encounter
--- OUTSIDE RECORDS SUMMARY | 2024-04-25 12:21 | XMS_ITS | Encounter Summary ---
Author Organization [facility] Address [address] [place] [address] Care Team Providers Care Hotbed Transfer Operator Name Role Phone Ayan Clayton MD Primary Care Provider [phone] Reason for Visit * Reason Onset Date Comments VNA Call 08/31/2023 Encounter Details Date Type Department Care Team Description 08/31/2023 Telephone Adult Medicine [address] [phone] Ayan Clayton MD [address] [place] [address] [phone] VNA Call Social History Tobacco Use Types Packs/Day Years [...] encounter Miscellaneous Notes * Telephone Encounter - Yifan Rocha L.P.N. - 08/31/2023 12:30 PM EDT VO left on (+ID) Laya GUNNA att Maura Last office note faxed Confirmation received * Telephone Encounter - Ayan Clayton MD - 08/31/2023 12:16 PM EDT Ok so I would assume ortho has orders for pain as well so Temp >100.4 tylenol 650 mg q 4hour May use robitussin dm prn cough q 4 hours If c/o if dysuria please collect u/a + C+S * Telephone Encounter - Yifan Rocha L.P.N. - 08/31/2023 12:06 PM EDT Non ortho orders example of orders are UTI cold cough anything not related to the surgery Please review and adavise * Telephone Encounter - Ayan Clayton MD - 08/31/2023 12:01 PM EDT I am not sure what orders they are looking for I believe pt was referred to home care via ortho for PT/OT I am not sure what other orders she would have/need other then the PT/OT order * Telephone Encounter - Yifan Rocha L.P.N. - 08/31/2023 11:56 AM EDT [facility] for nursing Ortho gave the original order for PTand OT Please review and advise Please send response to the VNA pool P [phone] Thank you Last visit08/01/23 documented in this encounter Plan of Treatment Not on file documented as of this encounter Visit Diagnoses Not on filedocumented in this encounter Care Teams Hotbed Transfer Operator Relationship Specialty Start Date End Date Ayan Clayton MD [address] [place] [address] PCP - General Internal Medicine 09/24/19 documented as of this encounter
--- OUTSIDE RECORDS SUMMARY | 2024-04-25 12:21 | XMS_ITS | Encounter Summary ---
Author Organization [facility] Address [address] [place] [address] Care Team Providers Care Aircraft Maintenance Technician Name Role Phone Ayan Clayton MD Primary Care Provider [phone] Reason for Visit * Reason Onset Date Comments Pre Op Visit 08/24/2023 Encounter Details Date Type Department Care Team Description 08/24/2023 Telephone Adult Medicine - [place] [address] [place] [address] Ayan Clayton MD [address] [place] [address] Pre Op Visit Social History Tobacco Use Types Packs/Day Years [...] encounter Miscellaneous Notes * Telephone Encounter - Jil Freeman APRN - 08/24/2023 3:45 PM EDT Note addended to reflect preop clearance. * Telephone Encounter - Elisabeth Lopezkins - 08/24/2023 8:21 AM EDT The patient was seen for a chest xray on 08/10 pending clearance for her surgery. Can an addendum beadded into the clearance note to state if she is cleared to continue with surgery. Thank you, Elisabeth Del Angel Patient Services / Pre-Op Billet Checker Extension - [phone] documented in this encounter Plan of Treatment Not on file documented as of this encounter Visit Diagnoses Not on filedocumented in this encounter Care Teams Aircraft Maintenance Technician Relationship Specialty Start Date End Date Ayan Clayton MD [address] [place] [address] PCP - General Internal Medicine 09/24/19 documented as of this encounter
--- OUTSIDE RECORDS SUMMARY | 2024-04-25 12:21 | XMS_ITS | Encounter Summary ---
Author Organization [facility] Address [address] [place] [address] Care Team Providers Care Dressmaker Garment Fitter Name Role Phone Ayan Clayton MD Primary Care Provider [phone] Encounter Details Date Type Department Care Team Description 06/10/2023 Hospital Medical Records [address] [place] [address] Social History Tobacco Use Types Packs/Day Years [...] on filedocumented in this encounter Care Teams Dressmaker Garment Fitter Relationship Specialty Start Date End Date Ayan Clayton MD [address] [place] [address] [id number] PCP - General Internal Medicine 09/24/19 documented as of this encounter
--- OUTSIDE RECORDS SUMMARY | 2024-04-25 12:21 | XMS_ITS | Encounter Summary ---
Author Organization [facility] Address [address] [place] [address] Care Team Providers Care Soot Blower Name Role Phone Ayan Clayton MD Primary Care Provider [phone] Reason for Visit * Reason Onset Date Comments Call From Insurance Co 07/04/2023 Encounter Details Date Type Department Care Team Description 07/04/2023 Telephone Adult Medicine [facility] [address] [place] [address] [phone] Ayan Clayton MD [address] [place] [address] [phone] Call From Insurance Co Social History Tobacco Use Types Packs/Day Years [...] encounter Miscellaneous Notes * Telephone Encounter - Antonia Sanchez - 07/04/2023 4:28 PM EDT Shamone Can also be reached at [phone]. * Telephone Encounter - Antonia Sanchez - 07/04/2023 4:19 PM EDT Caller requesting call back from provider: Is the caller the patient? NO If caller is not the patient, what is the callers name? Shamone Callers relationship to patient? Insurance If person calling is not the patient themselves, is there a verbal release in FYI or permanent comments for this person: NO Reason for call back: Shamone is calling requesting the clarification/ and or changes for anticholinergic burden -cetirizine, celecoxib, hydrOXYzine, bacofline be reviewed due to patient multiple falls Caller offered to speak with the nurse for assistance: NO Response: Provider please contact documented in this encounter Plan of Treatment Not on file documented as of this encounter Visit Diagnoses Not on filedocumented in this encounter Care Teams Soot Blower Relationship Specialty Start Date End Date Ayan Clayton MD [address] [place] [address] PCP - General Internal Medicine 09/24/19 documented as of this encounter
--- OUTSIDE RECORDS SUMMARY | 2024-04-25 12:21 | XMS_ITS | Encounter Summary ---
Author Organization [facility] Address [address] [place] [address] Care Team Providers Care Research Software Engineer Name Role Phone Daniel Mota MD Primary Care Provider Unavail able Ayan Clayton MD Primary Care Provider [phone] Encounter Details Date Type Department Care Team Description 02/05/2019 Telephone General Surgery - [place] [address] [facility] [address] [place] [address] Torrey Moreno MD [address] [place] [address] DRIVE [address] [place], [place] [phone] Social History Tobacco Use Types Packs/Day Years [...] on filedocumented in this encounter Care Teams Research Software Engineer Relationship Specialty Start Date End Date Daniel Mota MD PCP - General Internal Medicine 10/20/16 09/23/19 Ayan Clayton MD [address] [place] [address] [phone] PCP - General Internal Medicine 09/24/19 documented as of this encounter
--- OUTSIDE RECORDS SUMMARY | 2024-04-25 12:21 | XMS_ITS | Encounter Summary ---
Author Organization [facility] Address [address] [place] [address] Care Team Providers Care Supplemental Nurse Name Role Phone Daniel Mota MD Primary Care Provider Unavail Victor Manuel Yu MD Primary Care Provider Unava ilable Daniel Mota MD Primary Care Provider Unavail Ayan Pulliam MD Primary Care Provider [phone] Victor Manuel Gonzales MD Primary Care Provider Unava ilmaximino Encounter Details Date Type Department Care Team Description 02/12/2013 Pt. Non Urgent Medical Question General Surgery [address] [place] [address] [phone] Bharath Rico MD [address] [place] [address] [phone] Social History Tobacco Use Types Packs/Day Years [...] as of this encounter Progress Notes * Saskia Marrufo C.M.A. - 02/18/2013 2:00 PM ESTFrom: YANET KING To: Bharath Rico MD Sent: Tracy Feb 12, 2013 1:50 AM Subject: Re: Last apt instructions day Dr. Rico, as per your instructions in my visit to your office I have scheduled the CT Scan, it is scheduled for the Feb. I am now requesting the follow upapt for after the Feb. I look forward to your prompt attention in this matter Thank you Yanet King Sent from my iPhone documented in this encounter Plan of Treatment Not on file documented as of this encounter Visit Diagnoses Not on filedocumented in this encounter Care Teams Supplemental Nurse Relationship Specialty Start Date End Date Daniel Mota MD PCP - General 07/27/1994 12/22/15 Victor Manuel Gonzales MD PCP - General Internal Medicine 07/22/16 10/19/16 Daniel Mota MD PCP - General Internal Medicine 10/20/16 09/23/19 Ayan Clayton MD [address] [place] [address] PCP - General Internal Medicine 09/24/19 Victor Manuel Gonzales MD PCP - General 12/23/15 07/21/16 documented as of this encounter
--- OUTSIDE RECORDS SUMMARY | 2024-04-25 12:21 | XMS_ITS | Encounter Summary ---
Author Organization [facility] Address [address] [place] [address] Care Team Providers Care Plant Protection Supervisor Name Role Phone Dainel Mtoa MD Primary Care Provider Ayan Rubalcava MD Primary Care Provider [phone] Reason for Visit * Reason Onset Date Comments radiology 02/04/2019 Encounter Details Date Type Department Care Team Description 02/04/2019 Telephone MRI - [place] [address] [place] [address] Yonis Servin PA-C radiology Social History Tobacco Use Types Packs/Day Years [...] encounter Miscellaneous Notes * Telephone Encounter - Karolyn Kramer - 02/04/2019 7:16 AM EST Khushi received a call from the call center that this patient is in the hospital and she had MRI lumbar spine at the hospital and no longer needs test done again. They did not state where mri was done. Thank you MRI documented in this encounter Plan of Treatment Not on file documented as of this encounter Visit Diagnoses Not on filedocumented in this encounter Care Teams Plant Protection Supervisor Relationship Specialty Start Date End Date Daniel Moat MD PCP - General Internal Medicine 10/20/16 09/23/19 Ayan Clayton MD [address] [place], [place] [phone] PCP - General Internal Medicine 09/24/19 documented as of this encounter
--- OUTSIDE RECORDS SUMMARY | 2024-04-25 12:21 | XMS_ITS | Encounter Summary ---
Author Organization [facility] Address [address] [place] [address] Care Team Providers Care Agricultural Sciences Professor Name Role Phone Ayan Clayton MD Primary Care Provider [phone] Encounter Details Date Type Department Care Team Description 05/01/2023 Orders Only Medical Records [address] [place] [address] [facility] Social History Tobacco Use Types Packs/Day Years [...] Name Priority Date/Time Associated Diagnosis Comments OUTSIDE VASCULAR STUDY Routine 04/29/2023 OUTSIDE PLAIN FILM Routine 04/29/2023 documented in this encounter Results * OUTSIDE PLAIN FILM (04/29/2023) Narrative Authorizing Provider Result [facility] [employer] RADIOLOGY * OUTSIDE VASCULAR STUDY (04/29/2023) [facility] [employer] CARDIOLOGY documented in this encounter Visit Diagnoses Not on filedocumented in this encounter Care Teams Agricultural Sciences Professor Relationship Specialty Start Date End Date Ayan Clayton MD [address] [place] [address] PCP - General Internal Medicine 09/24/19 documented as of this encounter
--- OUTSIDE RECORDS SUMMARY | 2024-04-25 12:21 | XMS_ITS | Encounter Summary ---
Author Organization [facility] Address [address] [place] [address] Care Team Providers Care Bar Machine Operator Production Name Role Phone Daniel Mota MD Primary Care Provider Unavail able Ayan Clayton MD Primary Care Provider [phone] Encounter Details Date Type Department Care Team Description 02/25/2019 Orders Only Adult Medicine [address] [address] Daniel Mota MD Social History Tobacco Use [...] on filedocumented in this encounter Care Teams Bar Machine Operator Production Relationship Specialty Start Date End Date Daniel Mota MD PCP - General Internal Medicine 10/20/16 09/23/19 Ayan Clayton MD [address] [place] [address] PCP - General Internal Medicine 09/24/19 documented as of this encounter
--- OUTSIDE RECORDS SUMMARY | 2024-04-25 12:22 | XMS_ITS | Encounter Summary ---
Author Organization [facility] Address [address] [place] [address] Care Team Providers Care Juke Box Mechanic Name Role Phone Daniel Mota MD Primary Care Provider Unavail able Ayan Clayton MD Primary Care Provider [phone] Encounter Details Date Type Department Care Team Description 06/28/2019 Gas Plant Repairer Report Medical Records [address] [place] [address] Bharath Block PA-C Social History Tobacco Use Types Packs/Day Years [...] on filedocumented in this encounter Care Teams Juke Box Mechanic Relationship Specialty Start Date End Date Daniel Mota MD PCP - General Internal Medicine 10/20/16 09/23/19 Ayan Clayton MD [address] [place], [place] [phone] PCP - General Internal Medicine 09/24/19 documented as of this encounter
--- OUTSIDE RECORDS SUMMARY | 2024-04-25 12:22 | XMS_ITS | Encounter Summary ---
Author Organization [facility] Address [address] [place] [address] Care Team Providers Care Wastewater Treatment Plant Supervisor Name Role Phone Ayan Clayton MD Primary Care Provider [phone] Reason for Visit * Reason Onset Date Comments Faxed Order 11/19/2019 allied Encounter Details Date Type Department Care Team Description 11/19/2019 Telephone Adult Medicine [facility] [address] [place], [place] [phone] Ayan Clayton MD [address] [place] [address] [phone] Faxed Order (allied) Social History Tobacco Use Types Packs/Day Years [...] encounter Miscellaneous Notes * Telephone Encounter - Skylar Carmona - 11/19/2019 10:04 AM EDT Physician order dated 11/09/2019 to be signed and faxed back documented in this encounter Plan of Treatment Not on file documented as of this encounter Visit Diagnoses Not on filedocumented in this encounter Care Teams Wastewater Treatment Plant Supervisor Relationship Specialty Start Date End Date Ayan Clayton MD [address] [place] [address] PCP - General Internal Medicine 09/24/19 documented as of this encounter
--- OUTSIDE RECORDS SUMMARY | 2024-04-25 12:22 | XMS_ITS | Encounter Summary ---
Author Organization [facility] Address [address] [place] [address] Care Team Providers Care Line Leader Name Role Phone Ayan Clayton MD Primary Care Provider [phone] Encounter Details Date Type Department Care Team Description 11/08/2019 Hospital Medical Records [address] [place] [address] [facility] Medical Social History Tobacco Use Types Packs/Day Years [...] on filedocumented in this encounter Care Teams Line Leader Relationship Specialty Start Date End Date Ayan Clayton MD [address] [place], [place] [phone] PCP - General Internal Medicine 09/24/19 documented as of this encounter
--- OUTSIDE RECORDS SUMMARY | 2024-04-25 12:22 | XMS_ITS | Encounter Summary ---
Author Organization [facility] Address [address] [place] [address] Care Team Providers Care Sand Drier Name Role Phone Daniel Mota MD Primary Care Provider Unavail able Ayan Clayton MD Primary Care Provider [phone] Encounter Details Date Type Department Care Team Description 07/17/2019 Armored Vehicle Officer Report Medical Records [address] [place] [address] Ta Garcia MD Social History Tobacco Use Types Packs/Day [...] on filedocumented in this encounter Care Teams Sand Drier Relationship Specialty Start Date End Date Daniel Mota MD PCP - General Internal Medicine 10/20/16 09/23/19 Ayan Clayton MD [address] [place] [address] [id number] PCP - General Internal Medicine 09/24/19 documented as of this encounter
--- OUTSIDE RECORDS SUMMARY | 2024-04-25 12:22 | XMS_ITS | Encounter Summary ---
Author Organization [facility] Address [address] [place] [address] Care Team Providers Care Metal Products Viewer Name Role Phone Daniel Mota MD Primary Care Provider Unavail able Ayan Clayton MD Primary Care Provider [phone] Encounter Details Date Type Department Care Team Description 04/10/2019 Sand Technologist Report Medical Records [address] [place] [address] Ta Garcia MD Social History Tobacco Use [...] filedocumented in this encounter Care Teams Metal Products Viewer Relationship Specialty Start Date End Date Daniel Mota MD PCP - General Internal Medicine 10/20/16 09/23/19 Ayan Clayton MD [address] [place] [address] [phone] PCP - General Internal Medicine 09/24/19 documented as of this encounter
--- OUTSIDE RECORDS SUMMARY | 2024-04-25 12:22 | XMS_ITS | Patient Health Record ---
Author Organization [facility] Address [address] [facility] [address] [facility] [place] [address] Care Team Providers Care Well Services Operator Name Role Phone ForrestIaine Primary Care Provider NOLAN Perez Unavailable [phone] Allergies Allergen (clinical drug ingredient) Drug/Non Drug [...] Problem Status W/U Status Risk Notes Problem 52524991 Other chronic pain (G89.29) Active confirmed Problem 575818781 Other hammer toe(s) (acquired), right foot (M20.41) Active confirmed Problem 49203894 Other hammer toe(s) (acquired), left foot (M20.42) Active confirmed Problem 93721881 Type 2 diabetes mellitus with diabetic polyneuropathy , without long-term current use of insulin (E11.42) Active confirmed Problem [id number] Arthritis of ankle, right (M19.071) Active confirmed Problem 974031890 Ankle arthritis (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) Active confirmed Problem [id number] Arthritis of ankle, left (M19.072) Active confirmed Plan Of Treatment Pending Test Test Name Order Date X ray : Ankle, right, 3 views 07/22/2022 X ray : Foot, left 3v 04/19/2022 DRAIN/INJECT, INTERMEDIATE JOINT/BURSA 0 04/19/2022 DRAIN/INJECT, INTERMEDIATE JOINT/BURSA 1 DRAIN/INJECT, INTERMEDIATE JOINT/BURSA 0 10/19/2021 DRAIN/INJECT, INTERMEDIATE JOINT/BURSA 0 04/21/2021 DRAIN/INJECT, INTERMEDIATE JOINT/BURSA 1 DRAIN/INJECT, INTERMEDIATE JOINT/BURSA 0 07/22/2022 DRAIN/INJECT, INTERMEDIATE JOINT/BURSA 0 07/20/2021 DRAIN/INJECT, INTERMEDIATE JOINT/BURSA 1 04/01/2022 DRAIN/INJECT, INTERMEDIATE JOINT/BURSA 0 10/28/2022 Medications Administered Medication Instructions Date of Administration [...]
--- OUTSIDE RECORDS SUMMARY | 2024-04-25 12:22 | XMS_ITS | Encounter Summary ---
Author Organization [facility] Address [address] [place] [address] Care Team Providers Care Truck Body Repairer Name Role Phone Daniel Mota MD Primary Care Provider [facility] Ayan Pulliam MD Primary Care Provider [phone] Encounter Details Date Type Department Care Team Description 05/02/2019 Telephone Adult Medicine [facility] [address] [place] [id number] Daniel Mota MD Social History Tobacco Use [...] encounter Miscellaneous Notes * Telephone Encounter - Meg Grimes L.P.N. - 05/03/2019 9:30 AM EST Patients last appointment was 04/02/2013 for eye and [facility] center Scanned under Media Meg Grimes L.P.N. * Telephone Encounter - Meg Grimes L.P.N. - 05/02/2019 12:08 PM EST Called [facility] [phone] On hold for 5 min * Telephone Encounter - Daniel Mota MD - 05/02/2019 11:05 AM EST Please get note from eye and Lasik. documented in this encounter Plan of Treatment Not on file documented as of this encounter Visit Diagnoses Not on filedocumented in this encounter Care Teams Truck Body Repairer Relationship Specialty Start Date End Date Daniel Mota MD PCP - General Internal Medicine 10/20/16 09/23/19 Ayan Clayton MD [address] [place] [address] PCP - General Internal Medicine 09/24/19 documented as of this encounter
--- OUTSIDE RECORDS SUMMARY | 2024-04-25 12:22 | XMS_ITS ---
Author Organization [facility] Address [address] [facility] [address] [place] [address] Care Team Providers Care Butcher Head Name Role Phone LENNIE ALFARO Primary Care [...] puffs Inhalation Twice a day Active Nystatin 804631 UNIT/GM 1 application Externally Twice a day [...] every 6 hrs Active Deep Sea Nasal Columbia 0.65 % 2 sprays in each nostril [...] 04/24/2024 Encounters Encounter Location Date Provider Diagnosis [facility] [address] [facility] [address] [place] [phone] 04/24/2024 LENNIE ALFARO Chronic pain syndrom e [...] extremity DVT and she follows up with maintenance painter, chronic kidney disease and she 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 She is here today for chronic pain management Chronic pain management. Chronic pain secondary to degenerative disc disease. Prognosis: Mild to moderate Medical necessity supported by H&P, imaging and testing [place] pain treatment protocol completed. Yes Chronic opioid/pain [...] opioid misuse based on ORT. Toxicology and CHRONIC DISEASE EPIDEMIOLOGIST monitoring done and will follow protocol set forth by practice. As such controlled substance use requires judicious monitoring to access patient compliance with mutually agreed upon controlled substance use agreement which has been signed by the patient and initiation of controlled substance prescribing. Therefore following state, Federal, [facility] guidelines for controlled substance testing policies. This patient has been assessed on the basis of psychometric risk tool, CHRONIC DISEASE EPIDEMIOLOGIST monitoring, toxicology test results. 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 She is here today for chronic pain management Chronic pain management. Chronic pain secondary to degenerative disc disease. Prognosis: Mild to moderate Medical necessity supported by H&P, imaging and testing [place] pain treatment protocol completed. Yes Chronic opioid/pain [...] opioid misuse based on ORT. Toxicology and CHRONIC DISEASE EPIDEMIOLOGIST monitoring done and will follow protocol set forth by practice. As such controlled substance use requires judicious monitoring to access patient compliance with mutually agreed upon controlled substance use agreement which has been signed by the patient and initiation of controlled substance prescribing. Therefore following state, Federal, [facility] guidelines for controlled substance testing policies. This patient has been assessed on the basis of psychometric risk tool, CHRONIC DISEASE EPIDEMIOLOGIST monitoring, toxicology test results. 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 She is here today for chronic pain management Chronic pain management. Chronic pain secondary to degenerative disc disease. Prognosis: Mild to moderate Medical necessity supported by H&P, imaging and testing [place] pain treatment protocol completed. Yes Chronic opioid/pain [...] opioid misuse based on ORT. Toxicology and CHRONIC DISEASE EPIDEMIOLOGIST monitoring done and will follow protocol set forth by practice. As such controlled substance use requires judicious monitoring to access patient compliance with mutually agreed upon controlled substance use agreement which has been signed by the patient and initiation of controlled substance prescribing. Therefore following state, Federal, [facility] guidelines for controlled substance testing policies. This patient has been assessed on the basis of psychometric risk tool, CHRONIC DISEASE EPIDEMIOLOGIST monitoring, toxicology test results. Comorbid conditions may [...] Reason: Provider Name:Aide bond, 06/05/2024 10:15:00 AM, [address] [place] [address], [id number], Progress Notes * Yanet KINGDOB:1955 (68 yo F)Acc No.[id number]:04/24/2024 Progress Notes Patient:?LUIS Yanet Provider:?LENNIE ALFARO MD :1955???Age:68 Y???Sex:Female D ate:04/24/2024 Address:[address] [place] [address], [id number] Subjective: * Chief Complaints: * ???1 month f/u * HPI: ???Internal Medicine:?Yanet is a 68-year-old female with a pmhx of T2DM, HLD, Asthma, Vitamin D deficiency is here for follow-up. She he is going to have right hip surgery on May 01, 2024 at [facility] by Dr. Ruiz.? She uses a walker [...] x2, Dr. Garcia and another doctor in [place] 2019right carpal tunnel surgery pancreatitis 2023 * [...] Inhalation every 6 hrs Deep Sea Nasal Columbia 0.65 % Solution 2 sprays in each nostril as needed Nasally every 2 hrs Fluticasone-Salmeterol 230-21 MCG/ACT Aerosol 2 puffs Inhalation Twice a day Nystatin 893248 UNIT/GM Powder 1 application Externally Twice a [...] every 6 hrs Taking Deep Sea Nasal [place] 0.65 % Solution 2 sprays in each nostril as needed Nasally every 2 hrs Taking Fluticasone-Salmeterol 230-21 MCG/ACT Aerosol 2 puffs Inhalation Twice a day Taking Nystatin 831692 UNIT/GM Powder 1 application Externally Twice a [...] and lower extremities, sensory exam intact.?FEMALE GENITOURINARY:?__.?MALE GENITOURINARY:?__.?PODIATRIC:?Normal.?Senior Administrative Support? .? Assessment: * Assessment: 1.?Chronic pain syndrome - G 89.4 (Primary)???2.?Polyosteoarthritis, unspecified - M15.9???3.?Other intervertebral disc degeneration, thoracolumbar region - M51.35??? 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 She is here today for chronic pain management Chronic pain management. Chronic pain secondary to degenerative disc disease. Prognosis: Mild to moderate Medical necessity supported by H&P, imaging and testing [place] pain treatment protocol completed. Yes Chronic opioid/pain [...] opioid misuse based on ORT. Toxicology and CHRONIC DISEASE EPIDEMIOLOGIST monitoring done and will follow protocol set forth by practice. As such controlled substance use requires judicious monitoring to access patient compliance with mutually agreed upon controlled substance use agreement which has been signed by the patient and initiation of controlled substance prescribing. Therefore following state, Federal, [facility] guidelines for controlled substance testing policies. This patient has been assessed on the basis of psychometric risk tool, CHRONIC DISEASE EPIDEMIOLOGIST monitoring, toxicology test results. Comorbid conditions may [...] Procedure Codes:?3078F DIAST BP < 80 MM [id number] SYST BP LT 130 MM HG * Follow Up:?6 Weeks * * Sign off status: Completed true * Provider:?LENNIE ALFARO MD Date:?04/24 Generated for Mark weir/Grabiel/Leonelsmitting on:?04/25/2024 12:21 PM EST History and Physical Notes * HPI (History of Present Illness) Category Sub-Category Detail Notes Category Not es Internal Medicine Yanet is a 68-year-old female with a pmhx of T2DM, HLD, Asthma, Vitamin D deficiency is here for follow-up. She he is going to have right hip surgery on May 01, 2024 at [facility] by Dr. Ruiz. She uses a walker [...] Normal Psychiatry Normal OROPHARYNX Normal SINUSES Normal Senior Administrative Support
--- OUTSIDE RECORDS SUMMARY | 2024-04-25 12:22 | XMS_ITS | Encounter Summary ---
Author Organization [facility] Address [address] [place] [address] Care Team Providers Care Issue Clerk Name Role Phone Daniel Mota MD Primary Care Provider Unavail able Ayan Clayton MD Primary Care Provider [phone] Encounter Details Date Type Department Care Team Description 03/06/2019 Hand Woodworking Sander Report Medical Records [address] [place] [address] Ta Garcia MD Social History Tobacco Use [...] on filedocumented in this encounter Care Teams Issue Clerk Relationship Specialty Start Date End Date Daniel Mota MD PCP - General Internal Medicine 10/20/16 09/23/19 Ayan Clayton MD [address] [place], [place] [phone] PCP - General Internal Medicine 09/24/19 documented as of this encounter
--- OUTSIDE RECORDS SUMMARY | 2024-04-25 12:22 | XMS_ITS | Encounter Summary ---
Author Organization [facility] Address [address] [place] [address] Care Team Providers Care Electronic Equipment Trades Worker Name Role Phone Ayan Clayton MD Primary Care Provider [phone] Encounter Details Date Type Department Care Team Description 11/05/2019 Hospital Medical Records [address] [place] [address] [facility] Medical Social History Tobacco Use Types Packs/Day [...] on filedocumented in this encounter Care Teams Electronic Equipment Trades Worker Relationship Specialty Start Date End Date Ayan Clayton MD [address] [place], [place] [phone] PCP - General Internal Medicine 09/24/19 documented as of this encounter
--- OUTSIDE RECORDS SUMMARY | 2024-04-25 12:22 | XMS_ITS | Encounter Summary ---
Author Organization [facility] Address [address] [place] [address] Care Team Providers Care Any Commodity Sales Deliverer Name Role Phone Daniel Mota MD Primary Care Provider Unavail able Ayan Clayton MD Primary Care Provider [phone] Encounter Details Date Type Department Care Team Description 03/07/2019 Security Advisor Report Medical Records [address] Social History Tobacco Use Types Packs/Day Years [...] on filedocumented in this encounter Care Teams Any Commodity Sales Deliverer Relationship Specialty Start Date End Date Daniel Mota MD PCP - General Internal Medicine 10/20/16 09/23/19 Ayan Clayton MD [address] [place] [address] PCP - General Internal Medicine 09/24/19 documented as of this encounter
--- OUTSIDE RECORDS SUMMARY | 2024-04-25 12:22 | XMS_ITS | Encounter Summary ---
Author Organization [facility] Address [address] [place] [address] Care Team Providers Care Silverer Name Role Phone Daniel Mota MD Primary Care Provider Unavail able Ayan Clayton MD Primary Care Provider [phone] Encounter Details Date Type Department Care Team Description 04/15/2019 Hospital Medical Records [address] [place] [address] Ta Garcia MD Social History Tobacco Use [...] on filedocumented in this encounter Care Teams Silverer Relationship Specialty Start Date End Date Daniel Mota MD PCP - General Internal Medicine 10/20/16 09/23/19 Ayan Clayton MD [address] [place] [id number] PCP - General Internal Medicine 09/24/19 documented as of this encounter
--- OUTSIDE RECORDS SUMMARY | 2024-04-25 12:22 | XMS_ITS | Encounter Summary ---
Author Organization [facility] Address [address] [place] [address] Care Team Providers Care Loan Review Officer Name Role Phone Daniel Mota MD Primary Care Provider Unavail able Ayan Clayton MD Primary Care Provider [phone] Encounter Details Date Type Department Care Team Description 04/11/2019 Release of Information Medical Records [address] [place] [id number] Abstract, Provider Social History Tobacco Use Types [...] on filedocumented in this encounter Care Teams Loan Review Officer Relationship Specialty Start Date End Date Daniel Mota MD PCP - General Internal Medicine 10/20/16 09/23/19 Ayan Clayton MD [address] [place] [id number] PCP - General Internal Medicine 09/24/19 documented as of this encounter
--- OUTSIDE RECORDS SUMMARY | 2024-04-25 12:22 | XMS_ITS | Encounter Summary ---
Author Organization [facility] Address [address] [place] [address] Care Team Providers Care Set Up Mechanic Heading Machines Name Role Phone Daniel Mota MD Primary Care Provider Unavail able Ayan Clayton MD Primary Care Provider Encounter Details Date Type Department Care Team Description 04/15/2019 Hot Cell Technician Report Medical Records [address] [place] [address] Bharath Block PA-C Social History Tobacco Use [...] on filedocumented in this encounter Care Teams Set Up Mechanic Heading Machines Relationship Specialty Start Date End Date Daniel Mota MD PCP - General Internal Medicine 10/20/16 09/23/19 Ayan Clayton MD [address] [place] [address] PCP - General Internal Medicine 09/24/19 documented as of this encounter
--- OUTSIDE RECORDS SUMMARY | 2024-04-25 12:22 | XMS_ITS | Encounter Summary ---
Author Organization [facility] Address [address] [place] [address] Care Team Providers Care Supervisor Television Chassis Repair Name Role Phone Daniel Mota MD Primary Care Provider Ayan Rubalcava MD Primary Care Provider [phone] Reason for Visit * Reason Comments E-prescribe Rx Request Encounter Details Date Type Department Care Team Description 09/11/2019 Refill Pulmonology - [place] [address] [facility] [address] [place] [phone] Carlos Hurlye MD [address] [facility] [address] [place] [phone] E-prescribe Rx Request Social History Tobacco Use [...] encounter Miscellaneous Notes * Telephone Encounter - Marilyn Juan - 09/11/2019 12:02 PM EDT Young- 04/04/19 Next- 10/03/19 documented in this encounter Plan of Treatment Not on file documented as of this encounter Visit Diagnoses Diagnosis Centrilobular emphysema (HCC) Other emphysema Morbid obesity with BMI of 50.0-59.9, adult (HCC) Former smoker Personal history of tobacco use, presenting hazards to health Allergic rhinitis due to pollen, unspecified seasonality Post-nasal drainage Unspecified sinusitis (chronic) Moderate persistent asthma without complication Unspecified asthma documented in this encounter Care Teams Supervisor Television Chassis Repair Relationship Specialty Start Date End Date Daniel Mota MD PCP - General Internal Medicine 10/20/16 09/23/19 Ayan Clayton MD [address] [place] [address] PCP - General Internal Medicine 09/24/19 documented as of this encounter
--- OUTSIDE RECORDS SUMMARY | 2024-04-25 12:22 | XMS_ITS | Encounter Summary ---
Author Organization [facility] Address [address] [place] [address] Care Team Providers Care Induction Furnace Operator Name Role Phone Ayan Clayton MD Primary Care Provider [phone] Reason for Visit * Reason Comments E-prescribe Rx Request Encounter Details Date Type Department Care Team Description 10/24/[address] [facility] - [place] [address] [facility] [address] [place] [phone] Torrey Moreno MD [address] [place] [address] [address] [place] [address] E-prescribe Rx Request Social History Tobacco Use [...] as of this encounter Visit Diagnoses Diagnosis Intestinal malabsorption following gastrectomy documented in this encounter Care Teams Induction Furnace Operator Relationship Specialty Start Date End Date Ayan Clayton MD [address] [place] [phone] PCP - General Internal Medicine 09/24/19 documented as of this encounter
--- OUTSIDE RECORDS SUMMARY | 2024-04-25 12:23 | XMS_ITS | Encounter Summary ---
Author Organization [facility] Address [address] [place] [address] Care Team Providers Care Cabin Outfitter Name Role Phone Ayan Clayton MD Primary Care Provider Encounter Details Date Type Department Care Team Description 07/24/2020 Power Generation Turbine Room Operator Report Medical Records [address] [place] [phone] [facility] Social History Tobacco Use Types Packs/Day Years [...] Exposure Response Date Recorded In the last month, have you been in contact with someone who was confirmed or suspected to have Coronavirus / COVID-19? No / Unsure 07/16/2020 12:44 PM EDT documented as of this encounter Plan of Treatment Not on file documented as of this encounter Visit Diagnoses Not on filedocumented in this encounter Care Teams Cabin Outfitter Relationship Specialty Start Date End Date Ayan Clayton MD [address] [place], [place] [phone] PCP - General Internal Medicine 09/24/19 documented as of this encounter
--- OUTSIDE RECORDS SUMMARY | 2024-04-25 12:23 | XMS_ITS | Encounter Summary ---
Author Organization [facility] Address [address] [place] [address] Care Team Providers Care Plant Operator Name Role Phone Ayan Clayton MD Primary Care Provider [phone] Reason for Visit * Reason Onset Date Comments medication problems 10/29/2020 Encounter Details Date Type Department Care Team Description 10/29/2020 Telephone Adult Medicine [facility] [address] [place] [address] [phone] Ayan Clayton MD [address] [place] [address] [phone] medication problems Social History Tobacco Use Types Packs/Day Years [...] have Coronavirus / COVID-19? No / Unsure 10/27/2020 8:47 AM EDT documented as of this encounter Miscellaneous Notes * Telephone Encounter - Ayan Clayton MD - 10/29/2020 6:25 PM EDT rx for basaglar sent * Telephone Encounter - Elisabeth Chaudhry - 10/29/2020 11:17 AM EDT Fax from Pharmacy Name of the medication Insulin Glargine (LANTUS SOLOSTAR) 100 UNIT/ML Solution Pen-injector What is the specific problem or interaction? Medication not covered: insurance prefer basaglar, tresiba or levemir or needs a PA If the patient is having a problem with taking the med - how long has the problem been going on? N/A documented in this encounter Plan of Treatment Not on file documented as of this encounter Visit Diagnoses Not on filedocumented in this encounter Care Teams Plant Operator Relationship Specialty Start Date End Date Ayan Clayton MD [address] [place] [id number] PCP - General Internal Medicine 09/24/19 documented as of this encounter
--- OUTSIDE RECORDS SUMMARY | 2024-04-25 12:23 | XMS_ITS | Encounter Summary ---
Author Organization [facility] Address [address] [place] [address] Care Team Providers Care Spa Manager Name Role Phone Ayan Clayton MD Primary Care Provider [phone] Reason for Visit * Reason Comments E-prescribe Rx Request Encounter Details Date Type Department Care Team Description 05/07/2020 Refill General Surgery - [place] [address] [facility] [address] [place] [address] Torrey Moreno MD [address] [place] [address] [address] [place], [place] [phone] E-prescribe Rx Request Social History Tobacco Use [...] have Coronavirus / COVID-19? No / Unsure 05/04/2020 10:40 AM EST documented as of this encounter Miscellaneous Notes * Telephone Encounter - Carolina Arellano M.A. - 05/07/2020 2:41 PM EST Pt needs a 90 refill of cholecalciferol (vitamin D3) 125 mcg (5,000 unit) capsule documented in this encounter Plan of Treatment Not on file documented as of this encounter Visit Diagnoses Diagnosis Intestinal malabsorption following gastrectomy documented in this encounter Care Teams Spa Manager Relationship Specialty Start Date End Date Ayan Clayton MD [address] [place] [id number] PCP - General Internal Medicine 09/24/19 documented as of this encounter
--- OUTSIDE RECORDS SUMMARY | 2024-04-25 12:23 | XMS_ITS | Encounter Summary ---
Author Organization [facility] Address [address] [place] [address] Care Team Providers Care Volcanologist Name Role Phone Ayan Clayton MD Primary Care Provider [phone] Encounter Details Date Type Department Care Team Description 09/04/2020 Telephone Gastroenterology - [place] [address] [facility] [address] [place] [address] Jerrod Joe PA-C Social History Tobacco Use Types Packs/Day [...] have Coronavirus / COVID-19? No / Unsure 08/21/2020 9:20 AM EDT documented as of this encounter Miscellaneous Notes * Telephone Encounter - Pretty Paz M.A. - 09/04/2020 2:37 PM EDT Reached the patient to notify her that Jerrod prefers her to perform the US of the abdomen prior to seeing GI. Per patient, she got to normal, the constipation resolved. Patient passes stools regularly. Per patient request cancelled the appointment with Cam on 09/08 documented in this encounter Plan of Treatment Not on file documented as of this encounter Visit Diagnoses Not on filedocumented in this encounter Care Teams Volcanologist Relationship Specialty Start Date End Date Ayan Clayton MD [address] [place] [id number] PCP - General Internal Medicine 09/24/19 documented as of this encounter
--- OUTSIDE RECORDS SUMMARY | 2024-04-25 12:23 | XMS_ITS | Encounter Summary ---
Author Organization [facility] Address [address] [place] [address] Care Team Providers Care Overnight Stocker Name Role Phone Daniel Mota MD Primary Care Provider Unavail Victor Manuel Yu MD Primary Care Provider Unava ilable Daniel Mota MD Primary Care Provider Unavail Ayan Pulliam MD Primary Care Provider [phone] Victor Manuel Gonzales MD Primary Care Provider Unava ilable Reason for Visit * Reason Onset Date Comments Sinus Problem 07/30/2014 Encounter Details Date Type Department Care Team Description 07/30/2014 Telephone Adult Medicine [address] [address] Daniel Mota MD Sinus Problem Social History Tobacco Use Types Packs/Day Years Used Date Smoking Tobacco: Former Cigarettes 4 45 Q uit: 03/27/2007 Smokeless Tobacco: Never Alcohol Use Standard Drinks/Week Comments No 0 (1 standard drink = 0.6 oz pur e alcohol) Sex Assigned at Date Recorded Female 07/15/2020 1:36 AM E DT Job Start Date Occupation Industry Not on file Not on file Not on file documented as of this encounter Miscellaneous Notes * Telephone Encounter - Stephanie Denny R.N. - 07/30/2014 12:58 PM EDT [facility] - Telephone Triage Documentation CHIEF COMPLAINT:sinus issues call placed to patient she states for the past 3 weeks she has had some sinus issues she has a productive cough with thick dark yellow phlegm there is thick yellow crusty nasal drainage she is c/o some sob with chest and nasal congestion she did not take her temp appt given PCP: Daniel Mota LMP/EDC: Current Outpatient Prescriptions Medication Sig Dispense Refill ??? lisinopril (PRINIVIL,ZESTRIL) 5 MG tablet Take 1 Tab by mouth daily. 30 Tab 5 ??? ketoconazole (NIZORAL) 2 % cream Apply bid 30 g 1 ??? duloxetine (CYMBALTA) 60 MG capsule Take 2 Caps by mouth daily. 60 Cap 5 ??? oxycodone (ROXICODONE) 5 MG immediate release tablet 1 tab every 4-6 hours as needed for pain 10 Tab 0 ??? PERCOCET 5-325 MG per tablet Take 2 tablets by mouth every 6 hours as needed for Pain (pain). 30 Tab 0 ??? fluticasone (FLOVENT HFA) 110 MCG/ACT inhaler Inhale 1 Puff into the lungs 2 times daily. 1 Inhaler 5 ??? Insulin Glargine (LANTUS SOLOSTAR) 100 UNIT/ML Solution Pen-injector Inject 14 Units into the skin daily. 5 Device 5 ??? Insulin Pen Needle (BD PEN NEEDLE CONOR U/F) 32G X 4 MM Misc 1 Device by Does not apply route daily. 30 Each 5 ??? dexamethasone (DECADRON) 10 MG/ML injection Epidural injection 2 Vial 0 ??? cetirizine (ZYRTEC) 10 MG tablet Take 1 Tab by mouth daily. 30 Tab 5 ??? ALBUTEROL SULFATE (PROAIR HFA) 108 (90 BASE) MCG/ACT Aero Soln Inhale 2 Puffs into the lungs every 4 hours as needed for Cough or Wheezing. 1 Inhaler 5 ??? ibuprofen (IBU) 800 MG tablet Take 1 Tab by mouth 3 times daily as needed for Pain. 90 Tab 5 ??? fluticasone (FLONASE) 50 MCG/ACT nasal spray 2 Sprays by Each Nare route daily. 16 g 5 ??? FREESTYLE LITE strip Apply 2 Strips topically daily. 100 Strip 2 ??? FreeStyle Lancets MISC Inject 2 Each into the skin daily. 100 Each 2 ??? albuterol (PROVENTIL) (2.5 MG/3ML) 0.083% nebulizer solution Take 1 Vial by nebulization 4 times daily. 120 mL 0 ??? glucose monitoring kit (FREESTYLE) monitoring kit 1 Each by Does not apply route as needed for Other. 1 Each 0 No current facility-administered medications for this visit. Allergies: Sulfa drugs Patient Active Problem List Diagnosis Code ??? hyperlipidemia 272.4 ??? asthma 493.90 ??? chronic back pain 724.5 ??? fibromyalgia 729.1 ??? SPECIAL SCREENING FOR MALIGNANT NEOPLASMS, COLON V76.51 ??? OBSTRUCTION OF BILE DUCT 576.2 ??? Morbidly Obese 278.01 ??? Essential hypertension, benign 401.1 ??? Gestational diabetes 648.80 ??? DM complication NOS type II, uncontrolled 250.92 ??? 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 Recurrent ventral hernia 553.21 ??? Lymphadenopathy 785.6 ??? Spinal stenosis 724.00 DISPOSITION:Appointment given REFERENCE:[facility] Telephone Triage Protocols for Nurses by Joi Mckeon CALLER UNDERSTANDS & AGREES WITH ADVICE:YES * Telephone Encounter - Maura Jackson - 07/30/2014 10:08 AM EDT Symptoms patient is presenting: patient is having sinus issues and cough, wants to be seen today How long has patient had these symptoms?: 4-5 days PCP: Daniel Mota Payor: [facility] FFS / Plan: [facility] PL[facility] / Product Type: MEDICAID RISK documented in this encounter Plan of Treatment Not on file documented as of this encounter Visit Diagnoses Not on filedocumented in this encounter Care Teams Overnight Stocker Relationship Specialty Start Date End Date Daniel Mota MD PCP - General 07/27/1994 12/22/15 Victor Manuel Gonzales MD PCP - General Internal Medicine 07/22/16 10/19/16 Daniel Mota MD PCP - General Internal Medicine 10/20/16 09/23/19 Ayan Clayton MD [address] [place], [place] [phone] PCP - General Internal Medicine 09/24/19 Victor Manuel Gonzales MD PCP - General 12/23/15 07/21/16 documented as of this encounter
--- OUTSIDE RECORDS SUMMARY | 2024-04-25 12:23 | XMS_ITS | Encounter Summary ---
Author Organization [facility] Address [address] [place] [address] Care Team Providers Care Plant Engineer Name Role Phone Ayan Clayton MD Primary Care Provider [phone] Encounter Details Date Type Department Care Team Description 03/02/2020 Visitor Use Assistant Report Medical Records [address] [place] [address] [facility] Social History Tobacco Use Types Packs/Day [...] have Coronavirus / COVID-19? No / Unsure 03/05/2020 9:45 AM EST documented as of this encounter Plan of Treatment Not on file documented as of this encounter Visit Diagnoses Not on filedocumented in this encounter Care Teams Plant Engineer Relationship Specialty Start Date End Date Ayan Clayton MD [address] [place], [place] [phone] PCP - General Internal Medicine 09/24/19 documented as of this encounter
--- OUTSIDE RECORDS SUMMARY | 2024-04-25 12:23 | XMS_ITS | Encounter Summary ---
Author Organization [facility] Address [address] [place] [address] Care Team Providers Care Card Grinder Helper Name Role Phone Ayan Clayton MD Primary Care Provider [phone] Reason for Visit * Reason Onset Date Comments Faxed Order 09/09/2020 Encounter Details Date Type Department Care Team Description 09/09/2020 Telephone Adult Medicine [facility] [address] [place] [address] [phone] Ayan Clayton MD [address] [place] [address] [phone] Faxed Order Social History Tobacco Use Types Packs/Day Years [...] encounter Miscellaneous Notes * Telephone Encounter - Elisabeth Chaudhry - 09/16/2020 9:13 AM EDT More faxed orders received from [email or web address], placed in Ayan mahmood * Telephone Encounter - Rosa Latham - 09/09/2020 10:23 AM EDT Physician order for Dr. Ayan Clayton's signature documented in this encounter Plan of Treatment Not on file documented as of this encounter Visit Diagnoses Not on filedocumented in this encounter Care Teams Card Grinder Helper Relationship Specialty Start Date End Date Ayan Clayton MD [address] [place] [address] PCP - General Internal Medicine 09/24/19 documented as of this encounter
--- OUTSIDE RECORDS SUMMARY | 2024-04-25 12:23 | XMS_ITS | Encounter Summary ---
Author Organization [facility] Address [address] [place] [address] Care Team Providers Care Supervisor Rolling Room Name Role Phone Ayan Clayton MD Primary Care Provider [phone] Encounter Details Date Type Department Care Team Description 01/23/2020 Traffic Signal Mechanic Report Medical Records [address] [place] [address] [facility] Medical Social History Tobacco Use [...] on filedocumented in this encounter Care Teams Supervisor Rolling Room Relationship Specialty Start Date End Date Ayan Clayton MD [address] [place], [place] [phone] PCP - General Internal Medicine 09/24/19 documented as of this encounter
--- OUTSIDE RECORDS SUMMARY | 2024-04-25 12:23 | XMS_ITS | Encounter Summary ---
Author Organization [facility] Address [address] [place] [address] Care Team Providers Care Half Section Ironer Name Role Phone Ayan Clayton MD Primary Care Provider [phone] Encounter Details Date Type Department Care Team Description 05/15/2020 Laborer/Key Man Report Medical Records [address] [place] [address] [facility] Social History Tobacco Use Types Packs/Day [...] on filedocumented in this encounter Care Teams Half Section Ironer Relationship Specialty Start Date End Date Ayan Clayton MD [address] [place], [place] [phone] PCP - General Internal Medicine 09/24/19 documented as of this encounter
--- OUTSIDE RECORDS SUMMARY | 2024-04-25 12:23 | XMS_ITS | Encounter Summary ---
Author Organization [facility] Address [address] [place] [address] Care Team Providers Care Physician Internist Name Role Phone Daniel Mota MD Primary Care Provider Unavail Victor Manuel Yu MD Primary Care Provider Unava ilDaniel Sandoval MD Primary Care Provider Unavail Ayan Pulliam MD Primary Care Provider Victor Manuel Gonzales MD Primary Care Provider Candida puri Encounter Details Date Type Department Care Team Description 01/26/2015 [facility] Medical Records [address] [place], [place] [phone] [place] [address] Social History Tobacco Use Types Packs/Day Years [...] on filedocumented in this encounter Care Teams Physician Internist Relationship Specialty Start Date End Date Daniel Mota MD PCP - General 07/27/1994 12/22/15 Victor Manuel Gonzales MD PCP - General Internal Medicine 07/22/16 10/19/16 Daniel Mota MD PCP - General Internal Medicine 10/20/16 09/23/19 Ayan Clayton MD [address] [place] [address] PCP - General Internal Medicine 09/24/19 Victor Manuel Gonzales MD PCP - General 12/23/15 07/21/16 documented as of this encounter
--- OUTSIDE RECORDS SUMMARY | 2024-04-25 12:23 | XMS_ITS | Encounter Summary ---
Author Organization [facility] Address [address] [place] [address] Care Team Providers Care Tool Grinder Operator Surface Name Role Phone Ayan Clayton MD Primary Care Provider [phone] Encounter Details Date Type Department Care Team Description 05/25/2020 Old Medical Records Medical Records [address] [place] [address] Abstract, Provider Social History Tobacco Use Types [...] on filedocumented in this encounter Care Teams Tool Grinder Operator Surface Relationship Specialty Start Date End Date Ayan Clayton MD [address] [place], [place] [phone] PCP - General Internal Medicine 09/24/19 documented as of this encounter
--- OUTSIDE RECORDS SUMMARY | 2024-04-25 12:23 | XMS_ITS | Encounter Summary ---
Author Organization [facility] Address [address] [place] [address] Care Team Providers Care Manager Market Intelligence Name Role Phone Ayan Clayton MD Primary Care Provider [phone] Reason for Visit * Reason Onset Date Comments Faxed Order 12/06/2019 Encounter Details Date Type Department Care Team Description 12/06/2019 Telephone Adult Medicine [facility] [address] [place] [address] [phone] Ayan Clayton MD [address] [place] [address] [phone] Faxed Order Social History Tobacco Use Types [...] Telephone Encounter - Yifan Rocha L.P.N. - 12/12/2019 1:50 PM EDT Call 2 Called [facility] To call triage nurse See message below * Telephone Encounter - Yifan MayorgaPDestin - 12/11/2019 3:08 PM EDT Left a message for [facility] to call triage south What is he looking for ? No oreders to start home care Where did he get the orders ? Please pass this call to me at EX [phone] Thank you * Telephone Encounter - Mela Benton R.N. - 12/09/2019 10:21 AM EDT We need a face to face for [facility]NA. Last visit 11/20 * Telephone Encounter - Noemi Sanders - 12/09/2019 10:10 AM EDT [facility] at [facility] needs face to face faxed to him today Phone [phone] * Telephone Encounter - Tara Roe - 12/06/2019 2:16 PM EDT FAXED IN [address] [facility] [employer] AND TO BE FAXED BACK TO [phone] documented in this encounter Plan of Treatment Not on file documented as of this encounter Visit Diagnoses Not on filedocumented in this encounter Care Teams Manager Market Intelligence Relationship Specialty Start Date End Date Ayan Clayton MD [address] [place] [address] PCP - General Internal Medicine 09/24/19 documented as of this encounter
--- OUTSIDE RECORDS SUMMARY | 2024-04-25 12:23 | XMS_ITS ---
Author Organization [facility] Address [address] [address] Care Team Providers Care Animal Care Attendant Name Role Phone Ayan Clayton Primary Care Provider SKYLAR Perez [phone] REASON FOR VISIT 3 month follow up Encounters Encounter Location Date Provider Diagnosis [facility] [address] [address] 05/05/2023 SKYLAR HANNA Plan Of Treatment No Information Progress Notes * LUISYanetDOB:1955 (68 yo F)Acc No.[id number]:05/05/2023 Progress Note Patient:?Matt KINGsa Provider:?Skyalr Hanna DPM :1955???Age:67 Y???Sex:Female D ate:05/05/2023 Address:[facility] [id number] Pcp:Ayan Clayton Subjective: * Chief Complaints: * ???1. 3 month follow up. * Medical History:? Objective: * Vitals:? Assessment: Plan: * Treatment: * Billing Information: * Visit Code:? * Procedure Codes:? * Electronic signature of RHIANNON HANNA D.P.M on 04/25/2024 at 12:23 PM EST Sign off status: Pending * Provider:?Skylar Hanna DPM Date:? 05/05/2023 Generated for Matti ng/Famariumg/eTransmitting on:?04/25/2024 12:23 PM EST
--- OUTSIDE RECORDS SUMMARY | 2024-04-25 12:23 | XMS_ITS | Encounter Summary ---
Author Organization [facility] Address [address] [place] [address] Care Team Providers Care Plug Cutting Machine Operator Name Role Phone Ayan Clatyon MD Primary Care Provider [phone] Encounter Details Date Type Department Care Team Description 01/27/2020 Refill Adult Medicine [address] [phone] Ayan Clayton MD [address] [place] [address] [phone] Social History Tobacco Use Types Packs/Day Years [...] on filedocumented in this encounter Care Teams Plug Cutting Machine Operator Relationship Specialty Start Date End Date Ayan Clayton MD [address] [place] [address] [phone] PCP - General Internal Medicine 09/24/19 documented as of this encounter
--- OUTSIDE RECORDS SUMMARY | 2024-04-25 12:23 | XMS_ITS | Encounter Summary ---
Author Organization [facility] Address [address] [place] [address] Care Team Providers Care Sales Assistant Displays Name Role Phone Daniel Mota MD Primary Care Provider Unavail Victor Manuel Yu MD Primary Care Provider Unava ilDaniel Sandoval MD Primary Care Provider Unavail Ayan Pulliam MD Primary Care Provider [phone] Victor Manuel Gonzales MD Primary Care Provider Candida puri Encounter Details Date Type Department Care Team Description 01/26/2015 [facility] Medical Records [address] [place], [place] [phone] [place] [address] Social History Tobacco Use Types Packs/Day Years [...] on filedocumented in this encounter Care Teams Sales Assistant Displays Relationship Specialty Start Date End Date Daniel Mota MD PCP - General 07/27/1994 12/22/15 Victor Manuel Gonzales MD PCP - General Internal Medicine 07/22/16 10/19/16 Daniel Mota MD PCP - General Internal Medicine 10/20/16 09/23/19 Ayan Clayton MD [address] [place] [address] PCP - General Internal Medicine 09/24/19 Victor Manuel Gonzaels MD PCP - General 12/23/15 07/21/16 documented as of this encounter
--- OUTSIDE RECORDS SUMMARY | 2024-04-25 12:23 | XMS_ITS | Encounter Summary ---
Author Organization [facility] Address [address] [place] [address] Care Team Providers Care Vice President Of Recruiting Name Role Phone Ayan Clayton MD Primary Care Provider Encounter Details Date Type Department Care Team Description 06/04/2020 [facility] Medical Records [address] [place] [address] Abstract, Provider Social History Tobacco Use Types [...] have Coronavirus / COVID-19? No / Unsure 06/02/2020 9:38 AM EST documented as of this encounter Plan of Treatment Not on file documented as of this encounter Visit Diagnoses Not on filedocumented in this encounter Care Teams Vice President Of Recruiting Relationship Specialty Start Date End Date Ayan Clayton MD [address] [place], [place] [phone] PCP - General Internal Medicine 09/24/19 documented as of this encounter
--- OUTSIDE RECORDS SUMMARY | 2024-04-25 12:23 | XMS_ITS | Encounter Summary ---
Author Organization [facility] Address [address] [place] [address] Care Team Providers Care Chha Name Role Phone Daniel Mota MD Primary Care Provider Unavail Victor Manuel Yu MD Primary Care Provider Unava ilable Daniel Mota MD Primary Care Provider Unavail Ayan Pulliam MD Primary Care Provider [phone] Victor Manuel Gonzales MD Primary Care Provider Justinava jaxson Encounter Details Date Type Department Care Team Description 01/29/2015 [facility] Medical Records [address] [place] [address] Austin Dorado Social History Tobacco Use Types Packs/Day Years [...] on filedocumented in this encounter Care Teams Chha Relationship Specialty Start Date End Date Daniel Mota MD PCP - General 07/27/1994 12/22/15 Victor Manuel Gonzales MD PCP - General Internal Medicine 07/22/16 10/19/16 Daniel Mota MD PCP - General Internal Medicine 10/20/16 09/23/19 Ayan Clayton MD [address] [place] [address] PCP - General Internal Medicine 09/24/19 Victor Manuel Gonzales MD PCP - General 12/23/15 07/21/16 documented as of this encounter
--- OUTSIDE RECORDS SUMMARY | 2024-04-25 12:23 | XMS_ITS | Encounter Summary ---
Author Organization [facility] Address [address] [place] [address] Care Team Providers Care Frozen Meat Cutter Name Role Phone Ayan Clayton MD Primary Care Provider [phone] Encounter Details Date Type Department Care Team Description 07/09/2020 Conditioner Tumbler Operator Report Medical Records [address] [place] [address] Skylar Hanna DPM Social History Tobacco Use [...] or suspected to have Coronavirus / COVID-19? Unable to assess 06/12/2020 7:33 AM EDT documented as of this encounter Plan of Treatment Not on file documented as of this encounter Visit Diagnoses Not on filedocumented in this encounter Care Teams Frozen Meat Cutter Relationship Specialty Start Date End Date Ayan Clayton MD [address] [place], [place] [phone] PCP - General Internal Medicine 09/24/19 documented as of this encounter
--- OUTSIDE RECORDS SUMMARY | 2024-04-25 12:23 | XMS_ITS | Encounter Summary ---
Author Organization [facility] Address [address] [place] [address] Care Team Providers Care Commercial Litigation Paralegal Name Role Phone Ayan Clayton MD Primary Care Provider [phone] Reason for Visit * Reason Onset Date Comments Faxed Order 02/06/2020 Encounter Details Date Type Department Care Team Description 02/06/2020 Telephone Adult Medicine [address] [phone] Ayan Clayton MD [address] [place] [address] [phone] Faxed Order Social History Tobacco Use Types [...] encounter Miscellaneous Notes * Telephone Encounter - Sangita Raphael - 02/06/2020 2:07 PM EST Faxed order from [facility] documented in this encounter Plan of Treatment Not on file documented as of this encounter Visit Diagnoses Not on filedocumented in this encounter Care Teams Commercial Litigation Paralegal Relationship Specialty Start Date End Date Ayan Clayton MD [address] [place] [address] PCP - General Internal Medicine 09/24/19 documented as of this encounter
--- OUTSIDE RECORDS SUMMARY | 2024-04-25 12:23 | XMS_ITS | Encounter Summary ---
Author Organization [facility] Address [address] [place] [address] Care Team Providers Care Marketing Production Specialist Name Role Phone Ayan Clayton MD Primary Care Provider [phone] Reason for Visit * Reason Onset Date Comments Faxed Order 01/17/2020 Encounter Details Date Type Department Care Team Description 01/17/2020 Telephone Adult Medicine [address] [phone] Ayan Clayton MD [address] [place] [address] [phone] Faxed Order Social History Tobacco Use Types [...] encounter Miscellaneous Notes * Telephone Encounter - Rosa Latham - 01/17/2020 5:01 PM EDT Physician order for Dr. Ayan Clayton's signature documented in this encounter Plan of Treatment Not on file documented as of this encounter Visit Diagnoses Not on filedocumented in this encounter Care Teams Marketing Production Specialist Relationship Specialty Start Date End Date Ayan Clayton MD [address] [place] [address] PCP - General Internal Medicine 09/24/19 documented as of this encounter
--- OUTSIDE RECORDS SUMMARY | 2024-04-25 12:23 | XMS_ITS | Encounter Summary ---
Author Organization [facility] Address [address] [place] [address] Care Team Providers Care Logistics System Engineer Name Role Phone Daniel Mota MD Primary Care Provider Unavail Victor Manuel Yu MD Primary Care Provider Unava ilable Daniel Mota MD Primary Care Provider Unavail Ayan Pulliam MD Primary Care Provider Victor Manuel Gonzales MD Primary Care Provider Unava ilmaximino Encounter Details Date Type Department Care Team Description 01/29/2015 Adjunct Professor Of Law Report Medical Records [address] [place] [address] Austin Dorado Social History Tobacco Use Types [...] on filedocumented in this encounter Care Teams Logistics System Engineer Relationship Specialty Start Date End Date Daniel Mota MD PCP - General 07/27/1994 12/22/15 Victor Manuel Gonzales MD PCP - General Internal Medicine 07/22/16 10/19/16 Daniel Mota MD PCP - General Internal Medicine 10/20/16 09/23/19 Ayan Clayton MD [address] [place] [address] PCP - General Internal Medicine 09/24/19 Victor Manuel Gonzales MD PCP - General 12/23/15 07/21/16 documented as of this encounter
--- OUTSIDE RECORDS SUMMARY | 2024-04-25 12:23 | XMS_ITS | Encounter Summary ---
Author Organization [facility] Address [address] [place] [address] Care Team Providers Care Dry Cell Sealer Name Role Phone Daniel Mota MD Primary Care Provider Unavail Victor Manuel Yu MD Primary Care Provider Unava ilable Daniel Mota MD Primary Care Provider Unavail Ayan Pulliam MD Primary Care Provider [phone] Victor Manuel Gonzales MD Primary Care Provider Candida puri Encounter Details Date Type Department Care Team Description 11/20/2015 [facility] Medical Records [address] [place] [address] Abstract, Provider Social History Tobacco Use Types [...] on filedocumented in this encounter Care Teams Dry Cell Sealer Relationship Specialty Start Date End Date Daniel Mota MD PCP - General 07/27/1994 12/22/15 Victor Manuel Gonzales MD PCP - General Internal Medicine 07/22/16 10/19/16 Daniel Mota MD PCP - General Internal Medicine 10/20/16 09/23/19 Ayan Clayton MD [address] [place] [address] PCP - General Internal Medicine 09/24/19 Victor Manuel Gonzales MD PCP - General 12/23/15 07/21/16 documented as of this encounter
--- OUTSIDE RECORDS SUMMARY | 2024-04-25 12:23 | XMS_ITS | Encounter Summary ---
Author Organization [facility] Address [address] [place] [address] Care Team Providers Care Network And Threat Support Specialist Name Role Phone Daniel Mota MD Primary Care Provider [facility] Ayan Pulliam MD Primary Care Provider [phone] Reason for Visit * Reason Onset Date Comments Prior Authorization 05/21/2019 Encounter Details Date Type Department Care Team Description 05/21/2019 Telephone Adult Medicine [address] [address] Daniel Mota MD Prior Authorization Social History Tobacco Use Types Packs/Day Years [...] encounter Miscellaneous Notes * Telephone Encounter - Vida Woodruff M.A. - 07/02/2019 10:33 AM EDT Spoke with Ashely romero [facility] who stated that p.a. For the jeronimo is through [facility]. Shestated that they faxed it over to them. Called and spoke with Eladio who stated that the jeronimo and its supplies were approved . Approved from 05/31/2019 until 05/30/2020 Authorization number # [id number] * Telephone Encounter - Susan Guiterrez M.A. - 06/26/2019 12:01 PM EDT Prior auth done via [employer] for jeronimo sensor Continuation of therapy Dx diabetes type 2 * Telephone Encounter - Tara [place] - 05/21/2019 11:04 AM EST Prior Authorization for Medication-do not complete and send this encounter unless you have the fax from the pharmacy. Is this a Cover My Meds request: Yes -- Laird Code [id number] Name of Medication FREESTYLE JERONIMO READER Dose of Medication What is the RX # from the faxed refill? How does patient take this med? 1 Device by Does not apply route as needed (Use to read sensor three times a day for diabetes.). What Pharmacy did the fax come from: [facility] fax #: [phone] [employer] Information from fax: What Prescription Plan does the patient have? BIN/PCN if applicable: Cardholder ID: Person Code: Relationship Code: Help desk phone: [phone] documented in this encounter Plan of Treatment Not on file documented as of this encounter Visit Diagnoses Not on filedocumented in this encounter Care Teams Network And Threat Support Specialist Relationship Specialty Start Date End Date Daniel Mota MD PCP - General Internal Medicine 10/20/16 09/23/19 Ayan Clayton MD [address] [place] [address] PCP - General Internal Medicine 09/24/19 documented as of this encounter
--- OUTSIDE RECORDS SUMMARY | 2024-04-25 12:23 | XMS_ITS | Encounter Summary ---
Author Organization [facility] Address [address] [place] [address] Care Team Providers Care Currency Exchange Specialist Name Role Phone Daniel Mota MD Primary Care Provider Unavail Victor Manuel Yu MD Primary Care Provider Unava ilable Daniel Mota MD Primary Care Provider Unavail Ayan Pulliam MD Primary Care Provider [phone] Victor Manuel Gonzales MD Primary Care Provider Unava ilable Reason for Visit * Reason Onset Date Comments Faxed Refill 08/04/2014 Encounter Details Date Type Department Care Team Description 08/04/2014 Refill Adult Medicine [facility] [address] [place] [address] Daniel Mota MD Faxed Refill Social History Tobacco Use Types Packs/Day Years [...] encounter Miscellaneous Notes * Telephone Encounter - Cecy Crowleydonny - 08/04/2014 3:02 PM EDT Patient would like script to be: E-PRESCRIBED/FAXED TO PHARMACY WHEN WAS THE PATIENT'S LAST APPOINTMENT IN ADULT MEDICINE? 05/07/14 WHEN WAS THE LAST TIME THE PATIENT SAW THEIR PCP? 08/04/14 Does patient have an upcoming appointment? Yes 11/04/14 (THE MEDICATION REQUESTED IS ON THE MED LIST ABOVE) All of the medications requested were on the CURRENT MEDS list Did you check the Pharmacy information above?: YES Patient wants: 90 -day supply Is this a mail order prescription request ? NO Patients current insurance carrier is: Payor: [employer] FFS / Plan: Loopback PLAN / Product Type: MEDICAID RISK documented in this encounter Plan of Treatment Not on file documented as of this encounter Visit Diagnoses Not on filedocumented in this encounter Care Teams Currency Exchange Specialist Relationship Specialty Start Date End Date Daniel Mota MD PCP - General 07/27/1994 12/22/15 Victor Manuel Gonzales MD PCP - General Internal Medicine 07/22/16 10/19/16 Daniel Mota MD PCP - General Internal Medicine 10/20/16 09/23/19 Ayan Clayton MD [address] [place] [address] PCP - General Internal Medicine 09/24/19 Victor Manuel Gonzales MD PCP - General 12/23/15 07/21/16 documented as of this encounter
--- OUTSIDE RECORDS SUMMARY | 2024-04-25 12:23 | XMS_ITS | Encounter Summary ---
Author Organization [facility] Address [address] [place] [address] Care Team Providers Care Can Cleaner Name Role Phone Ayan Clayton MD Primary Care Provider [phone] Encounter Details Date Type Department Care Team Description 06/26/2020 Stove Bottom Worker Report Medical Records [address] [place] [address] [facility] Social History Tobacco Use Types Packs/Day [...] on filedocumented in this encounter Care Teams Can Cleaner Relationship Specialty Start Date End Date Ayan Clayton MD [address] [place], [place] [phone] PCP - General Internal Medicine 09/24/19 documented as of this encounter
--- OUTSIDE RECORDS SUMMARY | 2024-04-25 12:24 | XMS_ITS | Encounter Summary ---
Author Organization [facility] Address [address] [place] [address] Care Team Providers Care Alarm Operator Name Role Phone Daniel Mota MD Primary Care Provider Unavail Victor Manuel Yu MD Primary Care Provider Unava ilable Daniel Mota MD Primary Care Provider Unavail Ayan Pulliam MD Primary Care Provider [phone] Victor Manuel Gonzales MD Primary Care Provider Unava ilmaximino Encounter Details Date Type Department Care Team Description 02/24/2011 Hotel Supplies Salesperson Report Medical Records [address] [place] [address] Elgin Russell MD Social History Tobacco Use Types Packs/Day [...] on filedocumented in this encounter Care Teams Alarm Operator Relationship Specialty Start Date End Date Daniel Mota MD PCP - General 07/27/1994 12/22/15 Victor Manuel Gonzales MD PCP - General Internal Medicine 07/22/16 10/19/16 Daniel Mota MD PCP - General Internal Medicine 10/20/16 09/23/19 Ayan Clayton MD [address] [place] [address] PCP - General Internal Medicine 09/24/19 Victor Manuel Gonzales MD PCP - General 12/23/15 07/21/16 documented as of this encounter
--- OUTSIDE RECORDS SUMMARY | 2024-04-25 12:24 | XMS_ITS | Encounter Summary ---
Author Organization [facility] Address [address] [place] [address] Care Team Providers Care Dog Barber Name Role Phone Ayan Clayton MD Primary Care Provider [phone] Encounter Details Date Type Department Care Team Description 04/04/2023 Orders Only [facility] Lung Screening Program [place] [address] [facility] [address] [place] [id number] Frank Hampton MD [address] [facility] Kevin [address] [place] [address] History of tobacco abuse Social History Tobacco [...] CT LOW DOSE LUNG SCREEN ANNUAL Routine 03/26/2023 History of tobacco abuse documented in this encounter Results * CT LOW DOSE LUNG SCREEN ANNUAL (03/26/2023) Frank Hampton MD CT SCANS documented in this encounter Visit Diagnoses Diagnosis History of tobacco abuse Personal history of tobacco use, presenting hazards to health documented in this encounter Care Teams Dog Barber Relationship Specialty Start Date End Date Ayan Clayton MD [address] [place] [address] PCP - General Internal Medicine 09/24/19 documented as of this encounter
--- OUTSIDE RECORDS SUMMARY | 2024-04-25 12:24 | XMS_ITS | Encounter Summary ---
Author Organization [facility] Address [address] [place] [address] Care Team Providers Care Qm Nurse Name Role Phone Daniel Mota MD Primary Care Provider Unavail Victor Manuel Yu MD Primary Care Provider Unava ilable Daniel Mota MD Primary Care Provider Unavail Ayan Pulliam MD Primary Care Provider [phone] Victor Manuel Gonzales MD Primary Care Provider Unava ilmaximino Encounter Details Date Type Department Care Team Description 11/04/2010 Hydrogenation Still Operator Report Medical Records [address] [place] [address] Elgin Russell MD Social History Tobacco Use [...] on filedocumented in this encounter Care Teams Qm Nurse Relationship Specialty Start Date End Date Daniel Mota MD PCP - General 07/27/1994 12/22/15 Victor Manuel Gonzales MD PCP - General Internal Medicine 07/22/16 10/19/16 Daniel Mota MD PCP - General Internal Medicine 10/20/16 09/23/19 Ayan Clayton MD [address] [place] [address] PCP - General Internal Medicine 09/24/19 Victor Manuel Gonzales MD PCP - General 12/23/15 07/21/16 documented as of this encounter
--- OUTSIDE RECORDS SUMMARY | 2024-04-25 12:24 | XMS_ITS | Encounter Summary ---
Author Organization [facility] Address [address] [place] [address] Care Team Providers Care Char Belt Operator Name Role Phone Daniel Mota MD Primary Care Provider Unavail able Ayan Clayton MD Primary Care Provider [phone] Encounter Details Date Type Department Care Team Description 01/26/2017 Food Service Kitchen Supervisor Report Medical Records [address] [place] [id number] Betty Bach MD [address] [place] [address] [address] [place] [address] Social History Tobacco Use Types Packs/Day Years [...] on filedocumented in this encounter Care Teams Char Belt Operator Relationship Specialty Start Date End Date Daniel Mota MD PCP - General Internal Medicine 10/20/16 09/23/19 Ayan Clayton MD [address] [place], [place] [phone] PCP - General Internal Medicine 09/24/19 documented as of this encounter
--- OUTSIDE RECORDS SUMMARY | 2024-04-25 12:24 | XMS_ITS | Encounter Summary ---
Author Organization [facility] Address [address] [place] [address] Care Team Providers Care Diesel Maintenance Technician Name Role Phone Daniel Mota MD Primary Care Provider Unavail Victor Manuel Yu MD Primary Care Provider Unava ilable Daniel Mota MD Primary Care Provider Unavail Ayan Pulliam MD Primary Care Provider [phone] Victor Manuel Gonzales MD Primary Care Provider Unava ilmaximino Encounter Details Date Type Department Care Team Description 08/24/2010 College Or University Faculty Member Report Medical Records [address] [place] [address] [place] [address] [place] [address] Social History Tobacco Use Types Packs/Day Years [...] on filedocumented in this encounter Care Teams Diesel Maintenance Technician Relationship Specialty Start Date End Date Daniel Mota MD PCP - General 07/27/1994 12/22/15 Victor Manuel Gonzales MD PCP - General Internal Medicine 07/22/16 10/19/16 Daniel Mota MD PCP - General Internal Medicine 10/20/16 09/23/19 Ayan Clayton MD [address] [place] [address] PCP - General Internal Medicine 09/24/19 Victor Manuel Gonzales MD PCP - General 12/23/15 07/21/16 documented as of this encounter
--- OUTSIDE RECORDS SUMMARY | 2024-04-25 12:24 | XMS_ITS | Encounter Summary ---
Author Organization [facility] Address [address] [place] [address] Care Team Providers Care Screening Unit Registered Nurse Name Role Phone Ayan Clayton MD Primary Care Provider [phone] Encounter Details Date Type Department Care Team Description 03/28/2023 Municipal Bond Trader Report Medical Records [address] [place] [address] Rell Leavitt Social History Tobacco Use Types [...] on filedocumented in this encounter Care Teams Screening Unit Registered Nurse Relationship Specialty Start Date End Date Ayan Clayton MD [address] [place], [place] [phone] PCP - General Internal Medicine 09/24/19 documented as of this encounter
--- OUTSIDE RECORDS SUMMARY | 2024-04-25 12:24 | XMS_ITS | Encounter Summary ---
Author Organization [facility] Address [address] [place] [address] Care Team Providers Care Channeler Name Role Phone Daniel Mota MD Primary Care Provider Unavail able Ayan Clayton MD Primary Care Provider [phone] Encounter Details Date Type Department Care Team Description 03/22/2018 Release of Information Medical Records [address] [place] [address] Abstract, Provider Social History Tobacco Use Types [...] on filedocumented in this encounter Care Teams Channeler Relationship Specialty Start Date End Date Daniel Mota MD PCP - General Internal Medicine 10/20/16 09/23/19 Ayan Clayton MD [address] [place] [address] PCP - General Internal Medicine 09/24/19 documented as of this encounter
--- OUTSIDE RECORDS SUMMARY | 2024-04-25 12:24 | XMS_ITS | Encounter Summary ---
Author Organization [facility] Address [address] [place] [address] Care Team Providers Care Maternal Child Nurse Name Role Phone Daniel Mota MD Primary Care Provider Ayan Rubalcava MD Primary Care Provider [phone] Reason for Visit * Reason Onset Date Comments TEST RESULTS 01/04/2017 Encounter Details Date Type Department Care Team Description 01/04/2017 Telephone Adult Medicine [address] [address] Daniel Mota MD TEST RESULTS Social History Tobacco Use Types Packs/Day Years [...] encounter Miscellaneous Notes * Telephone Encounter - Daniel Mota MD - 01/04/2017 12:07 PM EDT I have spoken to the patient about the MRI findings. We have discussed multilevel degenerative change. As discitis cannot be excluded we have ordered routine lab work including sed rate and CRP as well as MRI with contrast. documented in this encounter Plan of Treatment Not on file documented as of this encounter Results * (ABNORMAL) C-REACTIVE PROTEIN (01/09/2017 11:04 AM EDT) CRP 0.85(H) 0.08 - 0.80 mg/dL 01/09/2017 12:25 PM EDT [facility] 01/09/2017 11:0 4 AM EDT 01/09/2017 11:04 AM EDT Daniel Mota MD LAB Performing Organization Address [facility] Co de Phone Number [address] * RBC SEDIMENTATION RATE, NON-AUTO (01/09/2017 11:04 AM EDT) ESR 22 0 - 30 mm/hr 01/09/2017 1:05 PM EDT [facility] 01/09/2017 11:0 4 AM EDT 01/09/2017 11:04 AM EDT Daniel Mota MD LAB Performing Organization Address [facility] de Phone Number [address] * (ABNORMAL) CBC (AUTO DIFF PLATELET) (01/09/2017 11:04 AM EDT) WBC 8.8 4.8 - 10.8 x10-3 01/09/2017 11:20 AM EDT [facility] RBC 5.0(H) 3.8 - 4.8 x10-6 01/09/2017 11:20 AM EDT [facility] HGB 14.9 11.5 - 16.0 g/dl 01/09/2017 11:20 AM EDT [facility] HCT 45.3 35 - 47 % 01/09/2017 11:20 AM EDT [facility] MCV 90.4 79 - 98 fl 01/09/2017 11:20 AM EDT [facility] MCH 29.7 27 - 32 pg 01/09/2017 11:20 AM EDT [facility] MCHC 32.9 32 - 37 g/dl 01/09/2017 11:20 AM EDT [facility] RDW 13.6 11 - 15 % 01/09/2017 11:20 AM EDT [facility] PLT COUNT 248 130 - 400 x10-3 01/09/2017 11:20 AM EDT [facility] MEAN PLATELET VOLUME 10.7 7 - 11 fl 01/09/2017 11:20 AM EDT [facility] NEUT % 62.8 41 - 85 % 01/09/2017 11:20 AM EDT [facility] LYMPH % 19.9 15 - 48 % 01/09/2017 11:20 AM EDT [facility] MONO % 7.2 0 - 12 % 01/09/2017 11:20 AM EDT [facility] EOS % 9.0(H) 0 - 5 % 01/09/2017 11:20 AM EDT [facility] BASO % 1.1 0 - 2 % 01/09/2017 11:20 AM EDT [facility] 01/09/2017 11:0 4 AM EDT 01/09/2017 11:04 AM EDT Daniel Mota MD LAB Performing Organization Address City/State/[facility] Co de Phone Number [facility] [address] [facility] * (ABNORMAL) BASIC METABOLIC PANEL (01/09/2017 11:04 AM EDT) [facility] GLUCOSE 123(H) 70 - 100 mg/dL 01/09/2017 12:25 PM EDT [facility] Comment: Reference range applicable to fasting specimens only Based on recommendations from the ADA and AACE, the fasting glucose reference range has been changed to 70-100 mg/dL. ??This change is effective August 10, 2009 BUN 11 5 - 25 mg/dL 01/09/2017 12:25 PM EDT [facility] CREAT 0.8 0.7 - 1.5 mg/dL 01/09/2017 12:25 PM EDT [facility] GFR > 60 >60 01/09/2017 12:25 PM EDT [facility] Comment: If patient is -Yemeni, multiply result by 1.21 Chronic Kidney Disease: < 60 ml/min/1.73 square meters Kidney Failure: < 15 ml/min/1.73 square meters Sodium 145 133 - 145 mEq/L 01/09/2017 12:25 PM EDT [facility] Potassium 4.5 3.5 - 5.5 mEq/L 01/09/2017 12:25 PM EDT [facility] Chloride 106 96 - 108 mEq/L 01/09/2017 12:25 PM EDT [facility] CO2 22.2 21.0 - 32.0 mEq/L 01/09/2017 12:25 PM EDT [facility] CALCIUM 9.9 8.5 - 10.5 mg/dL 01/09/2017 12:25 PM EDT [facility] 01/09/2017 11:0 4 AM EDT 01/09/2017 11:04 AM EDT Daniel Mota MD LAB Performing Organization Address City/State/[facility] Co de Phone Number [facility] [address] [facility] documented in this encounter Visit Diagnoses Diagnosis Neck pain- Primary Cervicalgia documented in this encounter Care Teams Maternal Child Nurse Relationship Specialty Start Date End Date Daniel Mota MD PCP - General Internal Medicine 10/20/16 09/23/19 Ayan Clayton MD [address] [place] [address] PCP - General Internal Medicine 09/24/19 documented as of this encounter
--- OUTSIDE RECORDS SUMMARY | 2024-04-25 12:24 | XMS_ITS | Encounter Summary ---
Author Organization [facility] Address [address] [place] [address] Care Team Providers Care Regional Planner Name Role Phone Daniel Mota MD Primary Care Provider Unavail Victor Manuel Yu MD Primary Care Provider Unava ilable Daniel Mota MD Primary Care Provider Unavail Ayan Pulliam MD Primary Care Provider [phone] Victor Manuel Gonzales MD Primary Care Provider Unava ilmaximino Encounter Details Date Type Department Care Team Description 07/07/2011 Flute Grinder Report Medical Records [address] [place] [address] Elgin Russell MD Social History Tobacco Use [...] on filedocumented in this encounter Care Teams Regional Planner Relationship Specialty Start Date End Date Daniel Mota MD PCP - General 07/27/1994 12/22/15 Victor Manuel Gonzales MD PCP - General Internal Medicine 07/22/16 10/19/16 Daniel Mota MD PCP - General Internal Medicine 10/20/16 09/23/19 Ayan Clayton MD [address] [place] [address] PCP - General Internal Medicine 09/24/19 Victor Manuel Gonzales MD PCP - General 12/23/15 07/21/16 documented as of this encounter
--- OUTSIDE RECORDS SUMMARY | 2024-04-25 12:24 | XMS_ITS | Encounter Summary ---
Author Organization [facility] Address [address] [place] [address] Care Team Providers Care Gas System Operator Name Role Phone Daniel Mota MD Primary Care Provider Unavail able Ayan Clayton MD Primary Care Provider [phone] Encounter Details Date Type Department Care Team Description 03/05/2018 Traffic Maintenance Supervisor Report Medical Records [address] Social History Tobacco Use Types Packs/Day [...] filedocumented in this encounter Care Teams Gas System Operator Relationship Specialty Start Date End Date Daniel Mota MD PCP - General Internal Medicine 10/20/16 09/23/19 Ayan Clayton MD [address] [place] [address] PCP - General Internal Medicine 09/24/19 documented as of this encounter
--- OUTSIDE RECORDS SUMMARY | 2024-04-25 12:24 | XMS_ITS | Encounter Summary ---
Author Organization [facility] Address [address] [place] [address] Care Team Providers Care Electrical Maintenance Engineer Name Role Phone Daniel Mtoa MD Primary Care Provider Unavail able Ayan Clayton MD Primary Care Provider [phone] Encounter Details Date Type Department Care Team Description 04/16/2018 Network Cabler Report Medical Records [address] [place] [address] Jake Limon MD Social History Tobacco Use Types Packs/Day [...] filedocumented in this encounter Care Teams Electrical Maintenance Engineer Relationship Specialty Start Date End Date Daniel Mota MD PCP - General Internal Medicine 10/20/16 09/23/19 Ayan Clayton MD [address] [place], [place] [phone] PCP - General Internal Medicine 09/24/19 documented as of this encounter
--- OUTSIDE RECORDS SUMMARY | 2024-04-25 12:24 | XMS_ITS | Encounter Summary ---
Author Organization [facility] Address [address] [place] [address] Care Team Providers Care Meat Smoker Name Role Phone Daniel Mota MD Primary Care Provider [facility] Ayan Pulliam MD Primary Care Provider Reason for Visit * Reason Onset Date Comments Print Manager Feedback 05/12/2017 Cardiac Stress T est Encounter Details Date Type Department Care Team Description 05/12/2017 Telephone Adult Medicine [facility] [address] [place] [address] Daniel Mota MD Print Manager Feedback (Cardiac Stress Test) Social History Tobacco Use Types Packs/Day Years [...] encounter Miscellaneous Notes * Telephone Encounter - Rena Solorzano - 05/12/2017 12:45 PM EST Notification letter mailed to patient. Office will contact patient to book appointment. Order faxed to [facility]. Office books with patient and will notify us with appointment. documented in this encounter Plan of Treatment Not on file documented as of this encounter Visit Diagnoses Not on filedocumented in this encounter Care Teams Meat Smoker Relationship Specialty Start Date End Date Daniel Mota MD PCP - General Internal Medicine 10/20/16 09/23/19 Ayan Clayton MD [address] [place] [address] PCP - General Internal Medicine 09/24/19 documented as of this encounter
--- OUTSIDE RECORDS SUMMARY | 2024-04-25 12:24 | XMS_ITS | Encounter Summary ---
Author Organization [facility] Address [address] [place] [address] Care Team Providers Care Wedger Machine Name Role Phone Daniel Mota MD Primary Care Provider Unavail Victor Manuel Yu MD Primary Care Provider Unava ilable Daniel Mota MD Primary Care Provider Unavail Ayan Pulliam MD Primary Care Provider [phone] Victor Manuel Gonzales MD Primary Care Provider Unava ilable Encounter Details Date Type Department Care Team Description 01/14/2011 Eye Concrete Inspector Report Medical Records [address] [place] [address] Mathew Liu Social History Tobacco Use Types Packs/Day Years [...] on filedocumented in this encounter Care Teams Wedger Machine Relationship Specialty Start Date End Date Daniel Mota MD PCP - General 07/27/1994 12/22/15 Victor Manuel Gonzales MD PCP - General Internal Medicine 07/22/16 10/19/16 Daniel Mota MD PCP - General Internal Medicine 10/20/16 09/23/19 Ayan Clayton MD [address] [place] [address] PCP - General Internal Medicine 09/24/19 Victor Manuel Gonzales MD PCP - General 12/23/15 07/21/16 documented as of this encounter
--- OUTSIDE RECORDS SUMMARY | 2024-04-25 12:24 | XMS_ITS | Clinical Summary ---
Author Organization 175 [facility] Address [address] [place] [address] Phone Care Team Providers Care Trade Specialist Name Role Phone Unavailable Primary Care Provider [...] salmon (MIACALCIN) 200 unit/actuation nasal spray 1 [place] by Alternating Nares route daily. 06/29/2023 Active [...] Description 04/04/2024 Telephone Adult Medicine [facility] [address] [place] [address] Ayan Clayton MD Pre-op Exam 03/15/2024 Telephone Lung Screening Program - [place] [facility] [address] [place] [phone] Jyoti Mackay MA Appointment (No longer qualifies for screening) 02/20/2024 10:45 AM EST Office Visit Bariatric Surgery - [place] 175 [facility] [address] [place] [phone] Torrey Moreno MD Intestinal malabsorption following gastrectomy [...] 9:30 AM EST Office Visit Pulmonolgy - [place] [facility] [address] [place] [phone] Jil Freeman NP 175 [facility] Kevin [address] [place] [address] 08/30/2024 10:00 AM EDT Appointment Radiology Department - [address] [address] 12/05/2024 3:45 PM EDT Office Visit Nephrology [facility] [address] [place] [address] Vega Navarro MD 9005 [facility] [address] [place] [phone] 02/04/2025 9:00 AM EST Office Visit Bariatric Surgery - [place] 175 [facility] [address] [place] [phone] Torrey Moreno MD 175 [facility] [address] [place] [address] Health Maintenance Due Date Last Done Comments [...] * Urine Albumin Creatinine Ratio (06/29/2023) Pathologist [facility] Urine Albumin Creatinine Ratio ABSTRACTED Historical Provider [facility] Annual BMP Blood Test (06/29/2023) Pathologist [facility] Annual BMP Blood Test ABSTRACTED Historical Provider [facility] E * Hemoglobin A1c (06/29/2023) [facility] Hemoglobin A1C 5.2 6.5 % Blood Venous blood specimen / Unknown Historical Provider LAB BLOOD ORDERAB LES * Lipid panel (06/29/2023) [facility] LDL/HDL Ratio 2 0 - 4 Triglycerides 142 0 - 150 mg/dL Cholesterol 172 0 - 200 mg/dL HDL 79 40 mg/dL LDL Cholesterol 65 0 - 100 mg/dL Blood Venous blood specimen / Unknown Historical Provider LAB BLOOD ORDERAB LES * Diabetes Foot Exam (04/10/2023) [facility] Diabetes: Annual Foot Exam ABSTRACTED Historical Provider [...] bone mineral density by WHO criteria. [facility] Department of Internal Medicine recommends using National [...] bone mineral density by WHO criteria. [facility] Department of Internal Medicine recommendsusing National Osteoporosis [...] RES * Cervical Cancer Screening: HPV (04/28/2021) [facility] Cervical Cancer Screening: HPV negative,a bstracted Historical Provider [facility] [employer] [facility] * Colonoscopy (02/16/2021) [facility] Colonoscopy no interpretation , abstracted Anatomical Region Laterality Modality Other Historical Provider [facility] [employer] [facility] * Hepatitis C Screening (12/07/2020) [facility] Hepatitis C Screening ABSTRACTED Historical Provider [facility] E from Last 3 Months or Most Recently Relevant to Health Maintenance Advance Directives Documents on File Type Date Recorded Patient Depot Manager Expl anation Health Care Decision (hx) 05/19/2014 [...]
--- OUTSIDE RECORDS SUMMARY | 2024-04-25 12:24 | XMS_ITS | Encounter Summary ---
Author Organization [facility] Address [address] [place] [address] Care Team Providers Care Mission Planner Name Role Phone Daniel Mota MD Primary Care Provider Unavail Victor Manuel Yu MD Primary Care Provider Unava ilable Daniel Mota MD Primary Care Provider Unavail Ayan Pulliam MD Primary Care Provider [phone] Victor Manuel Gonzales MD Primary Care Provider Unava ilmaximino Encounter Details Date Type Department Care Team Description 10/13/2010 Scudding Inspector Report Medical Records [address] [place] [address] Marcela Singh [address] [place] [address] Social History Tobacco Use Types Packs/Day Years [...] on filedocumented in this encounter Care Teams Mission Planner Relationship Specialty Start Date End Date Daniel Mota MD PCP - General 07/27/1994 12/22/15 Victor Manuel Gonzales MD PCP - General Internal Medicine 07/22/16 10/19/16 Daniel Mota MD PCP - General Internal Medicine 10/20/16 09/23/19 Ayan Clayton MD [address] [place] [address] PCP - General Internal Medicine 09/24/19 Victor Manuel Gonzales MD PCP - General 12/23/15 07/21/16 documented as of this encounter
--- OUTSIDE RECORDS SUMMARY | 2024-04-25 12:24 | XMS_ITS | Encounter Summary ---
Author Organization [facility] Address [address] [place] [address] Care Team Providers Care Boat Oar Maker Name Role Phone Ayan Clayton MD Primary Care Provider [phone] Encounter Details Date Type Department Care Team Description 08/25/2022 Motorcoach Operator Report Medical Records [address] [place] [address] Alexis Campbell MD Social History Tobacco Use Types Packs/Day [...] suspected to have Coronavirus/COVID-19? No / Unsure 08/11/2022 10:22 AM EDT documented as of this encounter Plan of Treatment Not on file documented as of this encounter Visit Diagnoses Not on filedocumented in this encounter Care Teams Boat Oar Maker Relationship Specialty Start Date End Date Ayan Clayton MD [address] [place] [address] PCP - General Internal Medicine 09/24/19 documented as of this encounter
--- OUTSIDE RECORDS SUMMARY | 2024-04-25 12:24 | XMS_ITS | Encounter Summary ---
Author Organization [facility] Address [address] [place] [address] Care Team Providers Care Surg Rn Name Role Phone Ayan Clayton MD Primary Care Provider [phone] Encounter Details Date Type Department Care Team Description 02/25/2021 Hospital Medical Records [address] [place] [address] Rell Leavitt Social History Tobacco Use Types [...] have Coronavirus / COVID-19? No / Unsure 02/17/2021 9:14 AM EST documented as of this encounter Plan of Treatment Not on file documented as of this encounter Visit Diagnoses Not on filedocumented in this encounter Care Teams Surg Rn Relationship Specialty Start Date End Date Ayan Clayton MD [address] [place], [place] [phone] PCP - General Internal Medicine 09/24/19 documented as of this encounter
--- OUTSIDE RECORDS SUMMARY | 2024-04-25 12:24 | XMS_ITS | Encounter Summary ---
Author Organization [facility] Address [address] [place] [address] Care Team Providers Care Enterprise Security Architect Name Role Phone Daniel Mota MD Primary Care Provider Unavail Victor Manuel Yu MD Primary Care Provider Unava ilable Daniel Mota MD Primary Care Provider Unavail Ayan Pulliam MD Primary Care Provider [phone] Victor Manuel Gonzales MD Primary Care Provider Unava ilmaximino Encounter Details Date Type Department Care Team Description 05/02/2011 Salesperson Burial Plots Report Medical Records [address] [place] [address] Elgin Russell MD Social History Tobacco Use [...] on filedocumented in this encounter Care Teams Enterprise Security Architect Relationship Specialty Start Date End Date Daniel Mota MD PCP - General 07/27/1994 12/22/15 Victor Manuel Gonzales MD PCP - General Internal Medicine 07/22/16 10/19/16 Daniel Mota MD PCP - General Internal Medicine 10/20/16 09/23/19 Ayan Clayton MD [address] [place] [address] PCP - General Internal Medicine 09/24/19 Victor Manuel Gonzales MD PCP - General 12/23/15 07/21/16 documented as of this encounter
--- OUTSIDE RECORDS SUMMARY | 2024-04-25 12:24 | XMS_ITS | Encounter Summary ---
Author Organization [facility] Address [address] [place] [address] Care Team Providers Care Tracer Lathe Set Up Operator Name Role Phone Ayan Clayton MD Primary Care Provider [phone] Encounter Details Date Type Department Care Team Description 11/20/2020 Hospital Medical Records [address] [place] [address] Rell Leavitt Social History Tobacco Use Types [...] have Coronavirus / COVID-19? No / Unsure 11/17/2020 9:53 AM EDT documented as of this encounter Plan of Treatment Not on file documented as of this encounter Visit Diagnoses Not on filedocumented in this encounter Care Teams Tracer Lathe Set Up Operator Relationship Specialty Start Date End Date Ayan Clayton MD [address] [place], [place] [phone] PCP - General Internal Medicine 09/24/19 documented as of this encounter
--- OUTSIDE RECORDS SUMMARY | 2024-04-25 12:24 | XMS_ITS | Encounter Summary ---
Author Organization [facility] Address [address] [place] [address] Care Team Providers Care Traffic Inspector Name Role Phone Daniel Mota MD Primary Care Provider Ayan Rubalcava MD Primary Care Provider [phone] Reason for Visit * Reason Onset Date Comments refill request 10/27/2017 Encounter Details Date Type Department Care Team Description 10/27/2017 Refill Podiatry - [place] [address] [place] [address] Skylar Hanna DPM refill request Social History Tobacco Use Types Packs/Day Years [...] Miscellaneous Notes * Telephone Encounter - Antonia Carias DPM - 10/27/2017 12:[address] EDT Unsure if Dr. Hanna would want this approved. Patient has been switched to a couple of other medications since she was given this. I would wait for Dr. Hanna to be back. * Telephone Encounter - Cathi Fitzgerald M.A. - 10/27/2017 12:48 PM EDT LOVB 08/08/17-pt of Dr Hanna * Telephone Encounter - Katie Muñiz - 10/27/2017 12:43 PM EDT Patient would like script to be: E-PRESCRIBED/FAXED TO PHARMACY (THE MEDICATION REQUESTED IS ON THE MED LIST ABOVE) All of the medications requested were on the CURRENT MEDS list Did you check the Pharmacy information above?: YES Patient wants: 30 -day supply Is this a mail order prescription request ? NO If the refill is from a FAXED refill request what is the RX # listed on the fax? N/A Patients current insurance carrier is: [place] / [place] / Product Type: MEDICARE [id number] documented in this encounter Plan of Treatment Not on file documented as of this encounter Visit Diagnoses Not on filedocumented in this encounter Care Teams Traffic Inspector Relationship Specialty Start Date End Date Daniel Mota MD PCP - General Internal Medicine 10/20/16 09/23/19 Ayan Clayton MD [address] [place] [address] PCP - General Internal Medicine 09/24/19 documented as of this encounter
--- OUTSIDE RECORDS SUMMARY | 2024-04-25 12:24 | XMS_ITS | Encounter Summary ---
Author Organization [facility] Address [address] [place] [address] Care Team Providers Care Service Loss Control Consultant Name Role Phone Ayan Clayton MD Primary Care Provider [phone] Reason for Visit * Reason Onset Date Comments preop exam 07/27/2022 Encounter Details Date Type Department Care Team Description 07/27/2022 Telephone Adult Medicine [address] [phone] Ayan Clayton MD [address] [place] [address] [phone] preop exam Social History Tobacco Use Types Packs/Day Years [...] suspected to have Coronavirus/COVID-19? No / Unsure 07/05/2022 9:42 AM EDT documented as of this encounter Miscellaneous Notes * Telephone Encounter - Cherelle Thomas - 07/27/2022 9:46 AM EDT Date of surgery:12/13/22 What surgery is patient having (gall bladder, cataract, appendix, etc...)?: Left total hip arthoplastry Surgeon's name: Dr. Fernie Toth Office phone number of surgeon: [phone] Fax # for surgeons office: [phone] (Required) Where is surgery being performed? [facility] Diagnosis/problem for surgery: Left total hip arthoplastry Is an EKG required for the pre-op workup? YES (labs) PCP: Ayan Clayton Did you verify that the insurance below is correct? YES Patients insurance: Payor: [employer] / Plan: PPO $0 [place] [employer] [id number] / Product Type: PPO [id number] documented in this encounter Plan of Treatment Not on file documented as of this encounter Visit Diagnoses Not on filedocumented in this encounter Care Teams Service Loss Control Consultant Relationship Specialty Start Date End Date Ayan Clayton MD [address] [place] [address] PCP - General Internal Medicine 09/24/19 documented as of this encounter
--- OUTSIDE RECORDS SUMMARY | 2024-04-25 12:24 | XMS_ITS | Encounter Summary ---
Author Organization [facility] Address [address] [place] [address] Care Team Providers Care Soccer Player Name Role Phone Ayan Clayton MD Primary Care Provider [phone] Reason for Visit * Reason Onset Date Comments Pre-op Exam 04/04/2024 Encounter Details Date Type Department Care Team (Late st Contact Info) Description 04/04/2024 Telephone Adult Medicine [address] [phone] Ayan Clayton MD [address] [place] [address] Pre-op Exam Social History Tobacco Use Types [...] Pre-Op appt due to pt transferred to [facility] Dr. Jake Womack for new pcp already. Pls advise. Tel #: [phone]. documented in this encounter Plan of Treatment Upcoming Encounters Date Type Department Care Team (Late st Contact Info) Description 05/01/2024 9:30 AM EST Office Visit Pulmonolgy - [place] [address] [address] Jil Freeman NP [address] [address] 08/30/2024 10:00 AM EDT Appointment Radiology Department - [address] [address] 12/05/2024 3:45 PM EDT Office Visit Nephrology - [address] [phone] Vega Navarro MD [address] [phone] 02/04/2025 9:00 AM EST Office Visit Bariatric Surgery - [place] [address] [phone] Torrey Moreno MD [address] [address] documented as of this encounter Visit Diagnoses Not on filedocumented in this encounter Care Teams Soccer Player Relationship Specialty Start Date End Date Ayan Clayton MD [address] [place] [address] PCP - General Internal Medicine 02/13/24 04/04/24 documented as of this encounter
--- OUTSIDE RECORDS SUMMARY | 2024-04-25 12:24 | XMS_ITS | Encounter Summary ---
Author Organization [facility] Address [address] [place] [address] Care Team Providers Care Well Blower Name Role Phone Victor Manuel Gonzales MD Primary Care Provider Daniel Longoria MD Primary Care Provider [facility] able Ayan Clayton MD Primary Care Provider [phone] Victor Manuel Gonzales MD Primary Care Provider Candida puri Encounter Details Date Type Department Care Team Description 01/18/2016 Release of Information Medical Records [address] [place] [address] Abstract, Provider Social History Tobacco Use Types [...] on filedocumented in this encounter Care Teams Well Blower Relationship Specialty Start Date End Date Victor Manuel Gonzales MD PCP - General Internal Medicine 07/22/16 10/19/16 Daniel Mota MD PCP - General Internal Medicine 10/20/16 09/23/19 Ayan Clayton MD [address] [place] [address] PCP - General Internal Medicine 09/24/19 Victor Manuel Gonzales MD PCP - General 12/23/15 07/21/16 documented as of this encounter
--- OUTSIDE RECORDS SUMMARY | 2024-04-25 12:24 | XMS_ITS | Encounter Summary ---
Author Organization [facility] Address [address] [place] [address] Care Team Providers Care Wire Drawing Die Maker Name Role Phone Ayan Clayton MD Primary Care Provider [phone] Encounter Details Date Type Department Care Team Description 03/10/2021 Bean Snapper Report Medical Records [address] [place] [address] Rell Leavitt Social History Tobacco Use Types [...] on filedocumented in this encounter Care Teams Wire Drawing Die Maker Relationship Specialty Start Date End Date Ayan Clayton MD [address] [place], [place] [phone] PCP - General Internal Medicine 09/24/19 documented as of this encounter
--- OUTSIDE RECORDS SUMMARY | 2024-04-25 12:24 | XMS_ITS | Encounter Summary ---
Author Organization [facility] Address [address] [place] [address] Care Team Providers Care Elastic Yarn Twister Helper Name Role Phone Daniel Mota MD Primary Care Provider Unavail able Ayan Clayton MD Primary Care Provider [phone] Encounter Details Date Type Department Care Team Description 01/26/2017 Php Mysql Developer Report Medical Records [address] [place] [address] Abstract, Provider Social History Tobacco Use Types [...] on filedocumented in this encounter Care Teams Elastic Yarn Twister Helper Relationship Specialty Start Date End Date Daniel Mota MD PCP - General Internal Medicine 10/20/16 09/23/19 Ayan Clayton MD [address] [place] [id number] PCP - General Internal Medicine 09/24/19 documented as of this encounter
--- OUTSIDE RECORDS SUMMARY | 2024-04-25 12:24 | XMS_ITS | Encounter Summary ---
Author Organization [facility] Address [address] [place] [address] Care Team Providers Care Program Facilitator Name Role Phone Victor Manuel Gonzales MD Primary Care Provider Daniel Longoria MD Primary Care Provider [facility] Ayan Clayton MD Primary Care Provider [phone] Encounter Details Date Type Department Care Team Description 09/05/2016 Business Doc Medical Records [address] [place] [address] Abstract, Provider Social History Tobacco Use Types [...] on filedocumented in this encounter Care Teams Program Facilitator Relationship Specialty Start Date End Date Victor Manuel Gonzales MD PCP - General Internal Medicine 07/22/16 10/19/16 Daniel Mota MD PCP - General Internal Medicine 10/20/16 09/23/19 Ayan Clayton MD [address] [place] [address] PCP - General Internal Medicine 09/24/19 documented as of this encounter
--- OUTSIDE RECORDS SUMMARY | 2024-04-25 12:24 | XMS_ITS | Encounter Summary ---
Author Organization [facility] Address [address] [place] [address] Care Team Providers Care Speed Belt Sander Tender Name Role Phone Victor Manuel Gonzales MD Primary Care Provider Daniel Longoria MD Primary Care Provider Ayan Rubalcava MD Primary Care Provider [phone] Reason for Visit * Reason Onset Date Comments Orders Call 07/22/2016 Encounter Details Date Type Department Care Team Description 07/22/2016 Telephone Podiatry - [place] [address] [place] [address] Skylar Hanna DPM Orders Call Social History Tobacco Use Types Packs/Day [...] Miscellaneous Notes * Telephone Encounter - Skylar Hanna DPM - 07/22/2016 9:49 AM EDT FYI. Noted thank you. 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 I advised to make a follow up with her PCP and she stated she sees him all the time for her diabetes. documented in this encounter Plan of Treatment Not on file documented as of this encounter Visit Diagnoses Not on filedocumented in this encounter Care Teams Speed Belt Sander Tender Relationship Specialty Start Date End Date Victor Manuel Gonzales MD PCP - General Internal Medicine 07/22/16 10/19/16 Daniel Mota MD PCP - General Internal Medicine 10/20/16 09/23/19 Ayan Clayton MD [address] [place] [address] PCP - General Internal Medicine 09/24/19 documented as of this encounter
--- OUTSIDE RECORDS SUMMARY | 2024-04-25 12:24 | XMS_ITS | Encounter Summary ---
Author Organization [facility] [place] Address [address] [place] [address] Care Team Providers Care Field Contact Technician Name Role Phone Daniel Mota MD Primary Care Provider [facility] Ayan Pulliam MD Primary Care Provider Reason for Visit * Reason Onset Date Comments Rash 04/10/2017 breast Encounter Details Date Type Department Care Team Description 04/10/2017 Telephone Adult Medicine [address] [address] Daniel Mota MD Rash (breast) Social History Tobacco Use Types Packs/Day Years [...] encounter Miscellaneous Notes * Telephone Encounter - Yanni Angulo L.P.N. - 04/10/2017 2:23 PM EST Pt states rash is burning ,advised to keep area dry ,i told her really dont want to recommend something with out knowing what issue is ,she states she is going to try walk in clinic and if she gets appt there she will call and cancel tomorrow * Telephone Encounter - Whitley Wright - 04/10/2017 1:53 PM EST Symptoms patient is presenting: patient is coming in tomorrow for her rash under neath her breast. She is asking if there is anything she could put on in the mean time. If pain or injury related was it due to an accident at work or from a motor vehicle accident? NO If yes, gather 3rd constitution party insurance information Date of accident/Injury: How long has patient had these symptoms?: N/A PCP: Daniel Mota Payor: MEDICARE-[employer] / Plan: MEDICARE-[employer] / Product Type: MEDICARE [id number] documented in this encounter Plan of Treatment Not on file documented as of this encounter Visit Diagnoses Not on filedocumented in this encounter Care Teams Field Contact Technician Relationship Specialty Start Date End Date Daniel Mota MD PCP - General Internal Medicine 10/20/16 09/23/19 Ayan Clayton MD [address] [place] [address] PCP - General Internal Medicine 09/24/19 documented as of this encounter
--- OUTSIDE RECORDS SUMMARY | 2024-04-25 12:24 | XMS_ITS | Encounter Summary ---
Author Organization [facility] Address [address] [place] [address] Care Team Providers Care Professor Criminal Justice Name Role Phone Daniel Mota MD Primary Care Provider Unavail able Ayan Clayton MD Primary Care Provider [phone] Encounter Details Date Type Department Care Team Description 05/02/2017 Edge Cutting Machine Operator Report Medical Records [address] [place] [address] Ana Pratt PA-C [address] [place] [address] [address] [place] [address] Social History Tobacco Use Types Packs/Day Years [...] on filedocumented in this encounter Care Teams Professor Criminal Justice Relationship Specialty Start Date End Date Daniel Mota MD PCP - General Internal Medicine 10/20/16 09/23/19 Ayan Clayton MD [address] [place], [place] [phone] PCP - General Internal Medicine 09/24/19 documented as of this encounter
--- OUTSIDE RECORDS SUMMARY | 2024-04-25 12:24 | XMS_ITS | Encounter Summary ---
Author Organization [facility] Address [address] [place] [address] Care Team Providers Care Deputy Coroner Name Role Phone Daniel Mota MD Primary Care Provider Unavail able Ayan Clayton MD Primary Care Provider [phone] Encounter Details Date Type Department Care Team Description 10/24/2016 [facility] Medical Records [address] [place] [address] Abstract, Provider Social History Tobacco Use Types [...] on filedocumented in this encounter Care Teams Deputy Coroner Relationship Specialty Start Date End Date Daniel Mota MD PCP - General Internal Medicine 10/20/16 09/23/19 Ayan Clayton MD [address] [place] [address] [id number] PCP - General Internal Medicine 09/24/19 documented as of this encounter
--- OUTSIDE RECORDS SUMMARY | 2024-04-25 12:24 | XMS_ITS | Encounter Summary ---
Author Organization [facility] Address [address] [place] [address] Care Team Providers Care Sampler First Name Role Phone Daniel Mota MD Primary Care Provider Unavail Victor Manuel Yu MD Primary Care Provider Unava ilable Daniel Mota MD Primary Care Provider Unavail Ayan Pulliam MD Primary Care Provider [phone] Victor Manuel Gonzales MD Primary Care Provider Unava ilmaximino Encounter Details Date Type Department Care Team Description 12/27/2010 Integrative Medicine Physician Report Medical Records [address] [place] [address] Elgin Russell MD Social History Tobacco Use [...] on filedocumented in this encounter Care Teams Sampler First Relationship Specialty Start Date End Date Daniel Mota MD PCP - General 07/27/1994 12/22/15 Victor Manuel Gonzales MD PCP - General Internal Medicine 07/22/16 10/19/16 Daniel Mota MD PCP - General Internal Medicine 10/20/16 09/23/19 Ayan [place] MD [address] [place] [address] PCP - General Internal Medicine 09/24/19 Victor Manuel Gonzales MD PCP - General 12/23/15 07/21/16 documented as of this encounter
--- OUTSIDE RECORDS SUMMARY | 2024-04-25 12:24 | XMS_ITS ---
Author Organization [facility] Address [address] [address] Care Team Providers Care Manganese Breaker Name Role Phone Ayan [place] Primary Care Provider PATRICA Palacios Unavailable [phone] REASON FOR VISIT Billing Encounters Encounter Location Date Provider Diagnosis [facility] [address] [address] 12/05/2022 PATRICA DOYLE Plan Of Treatment No Information Progress Notes * Yanet KINGDOB:1955 (66 yo F)Acc No.[id number]:12/05/2022 Patient:?Yanet King :1955???Age:66 Y???Sex:Female Address:[address], [place], [address] * true * Date:? Generated for Matti carmella/Grabiel/eTransmitting on:?04/25/2024 12:24 PM EST
--- OUTSIDE RECORDS SUMMARY | 2024-04-25 12:24 | XMS_ITS | Encounter Summary ---
Author Organization [facility] Address [address] [place] [address] Care Team Providers Care Collection Team Lead Name Role Phone Ayan [place] MD Primary Care Provider [phone] Encounter Details Date Type Department Care Team Description 02/02/2021 Manufacturing Helper Report Medical Records [address] [place] [address] Skylar Hanna DPM Social History Tobacco Use [...] have Coronavirus / COVID-19? No / Unsure 02/03/2021 8:42 AM EST documented as of this encounter Plan of Treatment Not on file documented as of this encounter Visit Diagnoses Not on filedocumented in this encounter Care Teams Collection Team Lead Relationship Specialty Start Date End Date Ayan [place] MD [address] [place], [place] [phone] PCP - General Internal Medicine 09/24/19 documented as of this encounter
--- OUTSIDE RECORDS SUMMARY | 2024-04-25 12:24 | XMS_ITS | Encounter Summary ---
Author Organization [facility] Address [address] [place] [address] Care Team Providers Care Yarn Examiner Name Role Phone Ayan [place] MD Primary Care Provider [phone] Encounter Details Date Type Department Care Team Description 04/05/2021 Glaze Maker Report Medical Records [address] [place] [address] Skylar Hanna DPM Social History Tobacco Use [...] have Coronavirus / COVID-19? No / Unsure 04/06/2021 8:43 AM EST documented as of this encounter Plan of Treatment Not on file documented as of this encounter Visit Diagnoses Not on filedocumented in this encounter Care Teams Yarn Examiner Relationship Specialty Start Date End Date Ayan [place] MD [address] [place], [place] [phone] PCP - General Internal Medicine 09/24/19 documented as of this encounter
--- OUTSIDE RECORDS SUMMARY | 2024-04-25 12:25 | XMS_ITS | Encounter Summary ---
Author Organization [facility] Address [address] [place] [address] Care Team Providers Care Furniture Builder Name Role Phone Ayan [place] MD Primary Care Provider [phone] Encounter Details Date Type Department Care Team Description 12/21/2022 Orders Only Medical Records [address] [place] [address] Abstract, Provider Social History Tobacco Use Types [...] suspected to have Coronavirus/COVID-19? No / Unsure 12/08/2022 11:07 AM EDT documented as of this encounter Plan of Treatment Not on file documented as of this encounter Procedures Procedure Name Priority Date/Time Associated Diagnosis Comments OUTSIDE EYE EXAM Routine 12/21/2022 documented in this encounter Results * OUTSIDE EYE EXAM (12/21/2022) Provider Abstract PROCEDURES documented in this encounter Visit Diagnoses Not on filedocumented in this encounter Care Teams Furniture Builder Relationship Specialty Start Date End Date Ayan [place] MD [address] [place] [address] PCP - General Internal Medicine 09/24/19 documented as of this encounter
--- OUTSIDE RECORDS SUMMARY | 2024-04-25 12:25 | XMS_ITS | Encounter Summary ---
Author Organization [facility] Address [address] [place] [address] Care Team Providers Care Research And Evaluation Analyst Name Role Phone Ayan [place] MD Primary Care Provider [phone] Encounter Details Date Type Department Care Team Description 10/21/2022 Orders Only [facility] Lung Screening Program [place] [address] [facility] [address] [place] [id number] Frank [place] MD [address] [facility] [address] [place] [address] History of tobacco use, presenting hazards to health Social History Tobacco Use Types Packs/Day Years [...] suspected to have Coronavirus/COVID-19? No / Unsure 10/21/2022 11:33 AM EDT documented as of this encounter Plan of Treatment Not on file documented as of this encounter Procedures Procedure Name Priority Date/Time Associated Diagnosis Comments CT LOW DOSE LUNG SCREEN ANNUAL Routine 03/16/2021 History of tobacco use, presenting hazards to health documented in this encounter Results * CT LOW DOSE LUNG SCREEN ANNUAL (03/16/2021) Frank [place] MD CT SCANS documented in this encounter Visit Diagnoses Diagnosis History of tobacco use, presenting hazards to health Personal history of tobacco use, presenting hazards to health documented in this encounter Care Teams Research And Evaluation Analyst Relationship Specialty Start Date End Date Ayan [place] MD [address] [place] [address] PCP - General Internal Medicine 09/24/19 documented as of this encounter
--- OUTSIDE RECORDS SUMMARY | 2024-04-25 12:25 | XMS_ITS | Encounter Summary ---
Author Organization [facility] Address [address] [place] [address] Care Team Providers Care Clerk Secretary Name Role Phone Ayan [place] MD Primary Care Provider [phone] Reason for Visit * Reason Comments E-prescribe Rx Request Encounter Details Date Type Department Care Team Description 08/28/2022 Refill Gastroenterology - [place] [address] [facility] [address] [place] [address] Jerrod Joe PA-C E-prescribe Rx [...] on filedocumented in this encounter Care Teams Clerk Secretary Relationship Specialty Start Date End Date Ayan [place] MD [address] [place] [address] PCP - General Internal Medicine 09/24/19 documented as of this encounter
== END 2024-04-25 09:46 | disposition home or self-care (01) ==
PROVIDERS: PCP Hospitalist; Visit Provider Physician Assistant
DX: M16.11 Unilateral primary osteoarthritis, right hip (principal)
CPT/HCPCS: 99024

== ENCOUNTER → 2024-04-25 09:21 | Outpatient (BNV) | payer OTHER, SELFPAY | PROVIDERS: Visit Provider Radiology Diagnostic Radiology | DX: M16.11 Unilateral primary osteoarthritis, right hip (principal) | CPT/HCPCS: 73502 ==

== ENCOUNTER 2024-04-25 09:39 | Outpatient (REF) | payer OTHER, SELFPAY ==
--- NOTE | ~2024-04-25 | XR_ITS ---
EXAMINATION: XR HIP 2 OR MORE VIEWS RIGHT HISTORY: M25.559 - Pain in unspecified hip COMPARISON: Comparison is made with the prior examination of the pelvis dated 04/09/2024. FINDINGS: A single AP view of the pelvis and two views of the right hip are submitted. Osseous mineralization is normal. There is no fracture or dislocation. Again seen is severe osteoarthritis with joint space narrowing, osteophyte formation, and remodeling of the femoral head. The patient is status post left total hip arthroplasty. The soft tissues are unremarkable. XR/XR hip RT min 2V IMPRESSION: Severe osteoarthritis as described. Electronically signed by: Cr Hays MD 04/25/2024 09:42 AM MYRNA
--- OUTSIDE RECORDS SUMMARY | 2024-04-26 10:11 | XMS_ITS | Encounter Summary ---
Author Organization [facility] Address [address] [place] [address] Care Team Providers Care Senior Marketing Engineer Name Role Phone Daniel Mota MD Primary Care Provider Unavail able Ayan [place] MD Primary Care Provider Encounter Details Date Type Department Care Team Description 11/22/2018 Hospital Medical Records [address] [place] [address] Bashir Booth Social History Tobacco Use Types [...] on filedocumented in this encounter Care Teams Senior Marketing Engineer Relationship Specialty Start Date End Date Daniel Mota MD PCP - General Internal Medicine 10/20/16 09/23/19 Ayan [place] MD [address] [place] [address] PCP - General Internal Medicine 09/24/19 documented as of this encounter
--- OUTSIDE RECORDS SUMMARY | 2024-04-26 10:11 | XMS_ITS | Encounter Summary ---
Author Organization [facility] Address [address] [place] [address] Care Team Providers Care Eddy Current Inspector Name Role Phone Ayan [place] MD Primary Care Provider [phone] Encounter Details Date Type Department Care Team Description 03/23/2022 Metal Temperer Report Medical Records [address] [place] [address] Center, [facility] [address] [place] [address] Social History Tobacco Use Types Packs/Day Years [...] on filedocumented in this encounter Care Teams Eddy Current Inspector Relationship Specialty Start Date End Date Ayan [place] MD [address] [place], [place] [phone] PCP - General Internal Medicine 09/24/19 documented as of this encounter
--- OUTSIDE RECORDS SUMMARY | 2024-04-26 10:11 | XMS_ITS | Encounter Summary ---
Author Organization [facility] Address [address] [place] [address] Care Team Providers Care Wincher Name Role Phone Daniel Mota MD Primary Care Provider Unavail able Ayan [place] MD Primary Care Provider [phone] Encounter Details Date Type Department Care Team Description 12/06/2018 Home Health Certification Medical Records [address] [place] [address] Home, [facility] [address] [facility] [address] [place] [address] Social History Tobacco Use Types Packs/Day Years [...] on filedocumented in this encounter Care Teams Wincher Relationship Specialty Start Date End Date Daniel Mota MD PCP - General Internal Medicine 10/20/16 09/23/19 Ayan [place] MD [address] [place] [address] PCP - General Internal Medicine 09/24/19 documented as of this encounter
--- OUTSIDE RECORDS SUMMARY | 2024-04-26 10:11 | XMS_ITS | Encounter Summary ---
Author Organization [facility] Address [address] [place] [address] Care Team Providers Care Supervising Fire Marshal Name Role Phone Ayan [place] MD Primary Care Provider [phone] Reason for Visit * Reason Onset Date Comments APPOINTMENT 02/14/2022 Encounter Details Date Type Department Care Team Description 02/14/2022 Telephone Nephrology - [place] [address] [place], [place] [phone] Vega Navarro MD [address] [place], [place] [phone] APPOINTMENT Social History Tobacco Use Types Packs/Day [...] on filedocumented in this encounter Care Teams Supervising Fire Marshal Relationship Specialty Start Date End Date Ayan [place] MD [address] [place] [address] PCP - General Internal Medicine 09/24/19 documented as of this encounter
--- OUTSIDE RECORDS SUMMARY | 2024-04-26 10:11 | XMS_ITS | Encounter Summary ---
Author Organization [facility] Address [address] [place] [address] Care Team Providers Care Police Patrol Lieutenant Name Role Phone Ayan [place] MD Primary Care Provider [phone] Reason for Visit * Reason Comments E-prescribe Rx Request Encounter Details Date Type Department Care Team Description 12/10/2021 Refill Endocrinology - [place] [address] [place] [address] Juan Alberto Kendall MD [address] [place], [place] [phone] E-prescribe Rx Request Social History Tobacco Use [...] uncontrolled documented in this encounter Care Teams Police Patrol Lieutenant Relationship Specialty Start Date End Date Ayan [place] MD [address] [place] [address] PCP - General Internal Medicine 09/24/19 documented as of this encounter
--- OUTSIDE RECORDS SUMMARY | 2024-04-26 10:11 | XMS_ITS | Encounter Summary ---
Author Organization [facility] Address [address] [place] [address] Care Team Providers Care Pet Caretaker Name Role Phone Ayan [place] MD Primary Care Provider [phone] Encounter Details Date Type Department Care Team Description 03/10/2022 Clinical Training Coordinator Report Medical Records [address] [place] [address] Rell Leavitt Social History Tobacco Use Types [...] on filedocumented in this encounter Care Teams Pet Caretaker Relationship Specialty Start Date End Date Ayan [place] MD [address] [place], [place] [phone] PCP - General Internal Medicine 09/24/19 documented as of this encounter
--- OUTSIDE RECORDS SUMMARY | 2024-04-26 10:11 | XMS_ITS | Encounter Summary ---
Author Organization [facility] Address [address] [place] [address] Care Team Providers Care Certified Juvenile Probation Officer Name Role Phone Daniel Mota MD Primary Care Provider Unavail able Ayan [place] MD Primary Care Provider [phone] Encounter Details Date Type Department Care Team Description 11/18/2018 Hospital Medical Records [address] Social History Tobacco Use Types Packs/Day [...] on filedocumented in this encounter Care Teams Certified Juvenile Probation Officer Relationship Specialty Start Date End Date Daniel Mota MD PCP - General Internal Medicine 10/20/16 09/23/19 Ayan [place] MD [address] [place] [address] PCP - General Internal Medicine 09/24/19 documented as of this encounter
--- OUTSIDE RECORDS SUMMARY | 2024-04-26 10:11 | XMS_ITS | Encounter Summary ---
Author Organization [facility] Address [address] [place] [address] Care Team Providers Care Boiler Washer Name Role Phone Ayan [place] MD Primary Care Provider [phone] Reason for Visit * Reason Comments E-prescribe Rx Request Encounter Details Date Type Department Care Team Description 02/15/2022 Refill Adult Medicine [facility] [address] [place], [place] [phone] Ayan [place] MD [address] [place] [phone] E-prescribe Rx Request Social History Tobacco Use [...] / Plan: [place]ARE-[place] / Product Type: MEDICARE [id number] documented in this encounter Plan of Treatment Not on file documented as of this encounter Visit Diagnoses Not on filedocumented in this encounter Care Teams Boiler Washer Relationship Specialty Start Date End Date Ayan [place] MD [address] [place] [address] PCP - General Internal Medicine 09/24/19 documented as of this encounter
--- OUTSIDE RECORDS SUMMARY | 2024-04-26 10:11 | XMS_ITS | Encounter Summary ---
Author Organization [facility] Address [address] [place] [address] Care Team Providers Care Director Global Development Name Role Phone Daniel Mota MD Primary Care Provider [facility] Ayan Pulliam MD Primary Care Provider [phone] Encounter Details Date Type Department Care Team Description 09/04/2018 Telephone Adult Medicine [facility] [address] [place] [address] Daniel Mota MD Social History Tobacco Use [...] encounter Miscellaneous Notes * Telephone Encounter - Kimmy Hernandez M.A. - 09/04/2018 3:07 PM EDT On 09/04/18 spoke with patient she is getting the machine in a couple of weeks.. When she receive the CABIRI - [employer] Thy Neighbor Outreach Programe pro she is going to call me for appt with Dr. Mota.. documented in this encounter Plan of Treatment Not on file documented as of this encounter Visit Diagnoses Not on filedocumented in this encounter Care Teams Director Global Development Relationship Specialty Start Date End Date Daniel Mota MD PCP - General Internal Medicine 10/20/16 09/23/19 Ayan [place] MD [address] [place] [address] PCP - General Internal Medicine 09/24/19 documented as of this encounter
--- OUTSIDE RECORDS SUMMARY | 2024-04-26 10:11 | XMS_ITS | Encounter Summary ---
Author Organization [facility] Address [address] [place] [address] Care Team Providers Care Rig Site Engineer Name Role Phone Daniel Mota MD Primary Care Provider [facility] Ayan Pulliam MD Primary Care Provider [phone] Reason for Visit * Reason Onset Date Comments hospital follow up 11/23/2018 Encounter Details Date Type Department Care Team Description 11/23/2018 Telephone Adult Medicine [address] [address] Daniel Mota MD hospital follow up Social History Tobacco Use Types Packs/Day Years [...] encounter Miscellaneous Notes * Telephone Encounter - Lulu Stanley Rn - 11/23/2018 10:32 AM EDT Spoke to pt. She was D/c from [facility] on 11/22/ She will be receiving VNA, , appt being set up , appt booked, for 12/03/2018 at 10:30 am Pt agreed to time and date * Telephone Encounter - Skylar Bardalesmargie - 11/23/2018 10:16 AM EDT Hospital follow up appointment needed Hospital patient was treated at: [facility] Was this only an ER visit or was the patient admitted to the hospital? Admitted to hospital Date of visit if ER visit only: N/A If patient was admitted what was the date of discharge? 11/22/2018 Reason/diagnosis for visit or stay: heart palpitations When was the patient told to follow up? Within 1-2 weeks Was visit or stay related to an injury? NO If yes, what was the date of injury (DOI)? N/A If yes, was the injury due to N/A documented in this encounter Plan of Treatment Not on file documented as of this encounter Visit Diagnoses Not on filedocumented in this encounter Care Teams Rig Site Engineer Relationship Specialty Start Date End Date Daniel Mota MD PCP - General Internal Medicine 10/20/16 09/23/19 Ayan [place] MD [address] [place] [address] PCP - General Internal Medicine 09/24/19 documented as of this encounter
--- OUTSIDE RECORDS SUMMARY | 2024-04-26 10:11 | XMS_ITS | Encounter Summary ---
Author Organization [facility] Address [address] [place] [address] Care Team Providers Care Environmental Engineering Manager Name Role Phone Daniel Mota MD Primary Care Provider [facility] Ayan Pulliam MD Primary Care Provider [phone] Encounter Details Date Type Department Care Team Description 10/17/2018 Orders Only Medical Records [address] [place] [address] Torrey Moreno MD [address] [place] [address] [address] [place] [address] Social History Tobacco Use Types Packs/Day Years [...] on filedocumented in this encounter Care Teams Environmental Engineering Manager Relationship Specialty Start Date End Date Daniel Mota MD PCP - General Internal Medicine 10/20/16 09/23/19 Ayan [place] MD [address] [place] [address] PCP - General Internal Medicine 09/24/19 documented as of this encounter
--- OUTSIDE RECORDS SUMMARY | 2024-04-26 10:11 | XMS_ITS | Encounter Summary ---
Author Organization [facility] Address [address] [place] [address] Care Team Providers Care Corporate Librarian Name Role Phone Ayan [place] MD Primary Care Provider [phone] Encounter Details Date Type Department Care Team Description 08/12/2021 Business Doc Medical Records [address] [place] [address] Abstract, Provider Social History Tobacco Use Types [...] suspected to have Coronavirus/COVID-19? No / Unsure 08/11/2021 8:59 AM EDT documented as of this encounter Plan of Treatment Not on file documented as of this encounter Visit Diagnoses Not on filedocumented in this encounter Care Teams Corporate Librarian Relationship Specialty Start Date End Date Ayan [place] MD [address] [place], [place] [phone] PCP - General Internal Medicine 09/24/19 documented as of this encounter
--- OUTSIDE RECORDS SUMMARY | 2024-04-26 10:11 | XMS_ITS | Encounter Summary ---
Author Organization [facility] Address [address] [place] [address] Care Team Providers Care Furnace Process Supervisor Name Role Phone Ayan [place] MD Primary Care Provider [phone] Encounter Details Date Type Department Care Team Description 03/08/2022 School Psychologist Assistant Report Medical Records [address] [place] [address] Blu Us I., PH.D Social History Tobacco [...] on filedocumented in this encounter Care Teams Furnace Process Supervisor Relationship Specialty Start Date End Date Ayan [place] MD [address] [place] [address] PCP - General Internal Medicine 09/24/19 documented as of this encounter
--- OUTSIDE RECORDS SUMMARY | 2024-04-26 10:11 | XMS_ITS | Encounter Summary ---
Author Organization [facility] Address [address] [place] [address] Care Team Providers Care Transactional Paralegal Name Role Phone Ayan [place] MD Primary Care Provider [phone] Reason for Visit * Reason Comments E-prescribe Rx Request Encounter Details Date Type Department Care Team Description 11/14/2021 Refill General Surgery - [place] [address] [facility] [address] [place] [address] Torrey Moreno MD [address] [place] [address] DRIVE [address] [place] [address] E-prescribe Rx Request Social History Tobacco Use [...] as of this encounter Visit Diagnoses Diagnosis Vitamin D insufficiency Unspecified vitamin D deficiency documented in this encounter Care Teams Transactional Paralegal Relationship Specialty Start Date End Date Ayan [place] MD [address] [place] [address] PCP - General Internal Medicine 09/24/19 documented as of this encounter
--- OUTSIDE RECORDS SUMMARY | 2024-04-26 10:11 | XMS_ITS | Encounter Summary ---
Author Organization [facility] Address [address] [place] [address] Care Team Providers Care Boring Machine Feeder Name Role Phone Daniel Mota MD Primary Care Provider Unavail able Ayan [place] MD Primary Care Provider [phone] Encounter Details Date Type Department Care Team Description 07/18/2018 Telephone Adult Medicine [facility] [address] [place] [address] Daniel Mota MD Social History Tobacco Use [...] on filedocumented in this encounter Care Teams Boring Machine Feeder Relationship Specialty Start Date End Date Daniel Mota MD PCP - General Internal Medicine 10/20/16 09/23/19 Ayan [place] MD [address] [place] [address] PCP - General Internal Medicine 09/24/19 documented as of this encounter
--- OUTSIDE RECORDS SUMMARY | 2024-04-26 10:11 | XMS_ITS | Encounter Summary ---
Author Organization [facility] Address [address] [place] [address] Care Team Providers Care Order Entry Clerk Name Role Phone Daniel Mota MD Primary Care Provider Ayan Rubalcava MD Primary Care Provider Encounter Details Date Type Department Care Team Description 11/19/2018 Orders Only Medical Records [address] [place] [address] Abstract, Provider Social History Tobacco Use Types [...] on filedocumented in this encounter Care Teams Order Entry Clerk Relationship Specialty Start Date End Date Daniel Mota MD PCP - General Internal Medicine 10/20/16 09/23/19 Ayan [place] MD [address] [place] [address] PCP - General Internal Medicine 09/24/19 documented as of this encounter
--- OUTSIDE RECORDS SUMMARY | 2024-04-26 10:12 | XMS_ITS | Encounter Summary ---
Author Organization [facility] Address [address] [place] [address] Care Team Providers Care Marine Cargo Specialist Name Role Phone Ayan [place] MD Primary Care Provider [phone] Encounter Details Date Type Department Care Team Description 06/13/2023 Hospital Medical Records [address] [place] [address] Vega Garcia Social History Tobacco Use Types [...] on filedocumented in this encounter Care Teams Marine Cargo Specialist Relationship Specialty Start Date End Date Ayan [place] MD [address] [place] [phone] PCP - General Internal Medicine 09/24/19 documented as of this encounter
--- OUTSIDE RECORDS SUMMARY | 2024-04-26 10:12 | XMS_ITS | Encounter Summary ---
Author Organization [facility] Address [address] [place] [address] Care Team Providers Care Meter Reader Chief Name Role Phone Ayan Clayton MD Primary Care Provider [phone] Reason for Visit * Reason Onset Date Comments Faxed Order 06/26/2023 CCA Encounter Details Date Type Department Care Team Description 06/26/2023 Telephone Adult Medicine [facility] [address] [place] [address] [phone] Ayan Clayton MD [address] [place] [address] [phone] Faxed Order (CCA) Social History Tobacco Use [...] Howard Soria - 06/26/2023 12:17 PM EDT MAJOR SALES ASSOCIATE order received and placed in providers bin documented in this encounter Plan of Treatment Not on file documented as of this encounter Visit Diagnoses Not on filedocumented in this encounter Care Teams Meter Reader Chief Relationship Specialty Start Date End Date Ayan Clayton MD [address] [place] [phone] PCP - General Internal Medicine 09/24/19 documented as of this encounter
--- OUTSIDE RECORDS SUMMARY | 2024-04-26 10:12 | XMS_ITS | Encounter Summary ---
Author Organization [facility] Address [address] [place] [address] Care Team Providers Care Inside Sales Executive Name Role Phone Ayan Clayton MD Primary Care Provider [phone] Encounter Details Date Type Department Care Team Description 06/10/2023 Hospital Medical Records [address] [place] [address] Social History Tobacco Use Types Packs/Day Years [...] on filedocumented in this encounter Care Teams Inside Sales Executive Relationship Specialty Start Date End Date Ayan Clayton MD [address] [place] [address] [phone] PCP - General Internal Medicine 09/24/19 documented as of this encounter
--- OUTSIDE RECORDS SUMMARY | 2024-04-26 10:12 | XMS_ITS | Encounter Summary ---
Author Organization [facility] Address [address] [place] [address] Care Team Providers Care Restaurant Shift Supervisor Name Role Phone Ayan Clayton MD Primary Care Provider [phone] Encounter Details Date Type Department Care Team Description 06/11/2023 Transportation Consultant Report Medical Records [address] [place] [address] Vega Garcia Social History Tobacco Use Types [...] on filedocumented in this encounter Care Teams Restaurant Shift Supervisor Relationship Specialty Start Date End Date Ayan Clayton MD [address] [place] [address] PCP - General Internal Medicine 09/24/19 documented as of this encounter
--- OUTSIDE RECORDS SUMMARY | 2024-04-26 10:12 | XMS_ITS | Encounter Summary ---
Author Organization [facility] Address [address] [place] [address] Care Team Providers Care Debeader Name Role Phone Ayan Clayton MD Primary Care Provider [phone] Encounter Details Date Type Department Care Team Description 06/18/2023 Hospital Medical Records [address] [place] [address] Social History Tobacco Use Types Packs/Day Years [...] on filedocumented in this encounter Care Teams Debeader Relationship Specialty Start Date End Date Ayan Clayton MD [address] [place] [address] [phone] PCP - General Internal Medicine 09/24/19 documented as of this encounter
--- OUTSIDE RECORDS SUMMARY | 2024-04-26 10:12 | XMS_ITS | Encounter Summary ---
Author Organization [facility] Address [address] [place] [address] Care Team Providers Care Casing Mixer Name Role Phone Daniel Mota MD Primary Care Provider [facility] Ayan Pulliam MD Primary Care Provider [phone] Encounter Details Date Type Department Care Team Description 06/11/2018 Orders Only General Surgery - [place] 175 [facility] [address] [place] [address] Torrey Moreno MD [address] [place] [address] [address] [place], [place] [phone] Morbid obesity with BMI of 50.0-59.9, adult [...] (HCC) documented in this encounter Care Teams Casing Mixer Relationship Specialty Start Date End Date Daniel Mota MD PCP - General Internal Medicine 10/20/16 09/23/19 Ayan Clayton MD [address] [place] [address] PCP - General Internal Medicine 09/24/19 documented as of this encounter
--- OUTSIDE RECORDS SUMMARY | 2024-04-26 10:12 | XMS_ITS | Encounter Summary ---
Author Organization [facility] Address [address] [place] [address] Care Team Providers Care Pest Control Specialist Name Role Phone Daniel Mota MD Primary Care Provider Unavail Victor Manuel Yu MD Primary Care Provider Unava ilable Daniel Mota MD Primary Care Provider Unavail Ayan Pulliam MD Primary Care Provider [phone] Victor Manuel Gonzales MD Primary Care Provider Unava ilable Reason for Visit * Reason Onset Date Comments DME Request 08/23/2013 diabetic supplys Encounter Details Date Type Department Care Team Description 08/23/2013 Telephone Adult Medicine [facility] [address] [place] [phone] Daniel Mota MD DME Request (diabetic supplys ) Social History Tobacco Use Types Packs/Day Years [...] encounter Miscellaneous Notes * Telephone Encounter - Zabrina Espinoza M.A. - 08/27/2013 1:24 PM EDT left, ? If she uses this company. * Telephone Encounter - Stephanie MayorgaPJasonNJason - 08/23/2013 2:36 PM EDT Will await fax * Telephone Encounter - Noemi Sanders - 08/23/2013 10:39 AM EDT Name of Product: Diabetic supplies Specific information about product see fax # Needed Reason/Diagnosis: diabeties When completed: [phone] documented in this encounter Plan of Treatment Not on file documented as of this encounter Visit Diagnoses Not on filedocumented in this encounter Care Teams Pest Control Specialist Relationship Specialty Start Date End Date Daniel Mota MD PCP - General 07/27/1994 12/22/15 Victor Manuel Gonzales MD PCP - General Internal Medicine 07/22/16 10/19/16 Daniel Mota MD PCP - General Internal Medicine 10/20/16 09/23/19 Ayan Clayton MD [address] [place] [address] PCP - General Internal Medicine 09/24/19 Victor Manuel Gonzales MD PCP - General 12/23/15 07/21/16 documented as of this encounter
--- OUTSIDE RECORDS SUMMARY | 2024-04-26 10:12 | XMS_ITS | Encounter Summary ---
Author Organization [facility] Address [address] [place] [address] Care Team Providers Care Blocker Heated Metal Forms Name Role Phone Daniel Mota MD Primary Care Provider [facility] Ayan Clayton MD Primary Care Provider [phone] Reason for Visit * Reason Comments E-prescribe Rx Request Encounter Details Date Type Department Care Team Description [facility]/18/[facility] [place] 175 [facility] [address] [place] [phone] Torrey Moreno MD [address] [place] [address] [address] [place] [address] E-prescribe Rx Request Social History Tobacco Use [...] on filedocumented in this encounter Care Teams Blocker Heated Metal Forms Relationship Specialty Start Date End Date Daniel Mota MD PCP - General Internal Medicine 10/20/16 09/23/19 Ayan Clayton MD [address] [place] [address] PCP - General Internal Medicine 09/24/19 documented as of this encounter
--- OUTSIDE RECORDS SUMMARY | 2024-04-26 10:12 | XMS_ITS | Encounter Summary ---
Author Organization [facility] Address [address] [place] [address] Care Team Providers Care Pillow Agent Name Role Phone Ayan Clayton MD Primary Care Provider [phone] Encounter Details Date Type Department Care Team Description 04/26/2022 Felt Carbonizer Report Medical Records [address] [place] [address] Adarsh Rider, Social History Tobacco Use Types Packs/Day Years [...] suspected to have Coronavirus/COVID-19? No / Unsure 04/29/2022 10:38 AM EST documented as of this encounter Plan of Treatment Not on file documented as of this encounter Visit Diagnoses Not on filedocumented in this encounter Care Teams Pillow Agent Relationship Specialty Start Date End Date Ayan Clayton MD [address] [place] [address] PCP - General Internal Medicine 09/24/19 documented as of this encounter
--- OUTSIDE RECORDS SUMMARY | 2024-04-26 10:12 | XMS_ITS | Encounter Summary ---
Author Organization [facility] Address [address] [place] [address] Care Team Providers Care Automobile Salesman Name Role Phone Ayan Clayton MD Primary Care Provider [phone] Encounter Details Date Type Department Care Team Description 04/19/2022 Vice President Of Academic Affairs Report Medical Records [address] [place] [address] Skylar Hanna DPM Social History Tobacco Use [...] on filedocumented in this encounter Care Teams Automobile Salesman Relationship Specialty Start Date End Date Ayan Clayton MD [address] [place] [address] PCP - General Internal Medicine 09/24/19 documented as of this encounter
--- OUTSIDE RECORDS SUMMARY | 2024-04-26 10:12 | XMS_ITS | Encounter Summary ---
Author Organization [facility] Address [address] [place] [address] Care Team Providers Care Fire Boat Engineer Name Role Phone Ayan Clayton MD Primary Care Provider [phone] Encounter Details Date Type Department Care Team Description 06/08/2023 PNO Controlled Substance Contract Medical Records [address] [place] [address] Abstract, Provider Social History Tobacco Use Types [...] on filedocumented in this encounter Care Teams Fire Boat Engineer Relationship Specialty Start Date End Date Ayan Clayton MD [address] [place] [address] PCP - General Internal Medicine 09/24/19 documented as of this encounter
--- OUTSIDE RECORDS SUMMARY | 2024-04-26 10:13 | XMS_ITS | Encounter Summary ---
Author Organization [facility] Address [address] [place] [address] Care Team Providers Care Railroad Firer Name Role Phone Ayan Clayton MD Primary Care Provider [phone] Reason for Visit * Reason Comments E-prescribe Rx Request Encounter Details Date Type Department Care Team Description 10/24/2019 [facility] - [place] [address] [facility] [address] [place] [phone] Torrey Moreno MD [address] [place] [address] [address] [place] [address] E-prescribe Rx Request Social History Tobacco Use [...] gastrectomy documented in this encounter Care Teams Railroad Firer Relationship Specialty Start Date End Date Ayan Clayton MD [address] [place] [address] [phone] PCP - General Internal Medicine 09/24/19 documented as of this encounter
--- OUTSIDE RECORDS SUMMARY | 2024-04-26 10:13 | XMS_ITS | Encounter Summary ---
Author Organization [facility] Address [address] [place] [address] Care Team Providers Care Occ Therapy Asst Name Role Phone Ayan Clayton MD Primary Care Provider [phone] Encounter Details Date Type Department Care Team Description 05/18/2023 Box Estimator Report Medical Records [address] [place] [address] Rell Leavitt Social History Tobacco Use Types [...] on filedocumented in this encounter Care Teams Occ Therapy Asst Relationship Specialty Start Date End Date Ayan Clayton MD [address] [place], [place] [phone] PCP - General Internal Medicine 09/24/19 documented as of this encounter
--- OUTSIDE RECORDS SUMMARY | 2024-04-26 10:13 | XMS_ITS | Encounter Summary ---
Author Organization [facility] Address [address] [place] [address] Care Team Providers Care General Farm Manager Name Role Phone Daniel Mota MD Primary Care Provider Unavail able Ayan Clayton MD Primary Care Provider [phone] Encounter Details Date Type Department Care Team Description 05/07/2019 Labor Relations Supervisor Report Medical Records [address] [place] [address] Ta Garcia MD Social History Tobacco Use [...] on filedocumented in this encounter Care Teams General Farm Manager Relationship Specialty Start Date End Date Daniel Mota MD PCP - General Internal Medicine 10/20/16 09/23/19 Ayan Clayton MD [address] [place] [address] [phone] PCP - General Internal Medicine 09/24/19 documented as of this encounter
--- OUTSIDE RECORDS SUMMARY | 2024-04-26 10:13 | XMS_ITS | Encounter Summary ---
Author Organization [facility] Address [address] [place] [address] Care Team Providers Care Direct Response Consultant Name Role Phone Daniel Mota MD Primary Care Provider Unavail able Ayan Clayton MD Primary Care Provider [phone] Encounter Details Date Type Department Care Team Description 04/23/2019 Automotive Mechanic Report Medical Records [address] [place] [address] Bharath Block PA-C Social History Tobacco Use [...] on filedocumented in this encounter Care Teams Direct Response Consultant Relationship Specialty Start Date End Date Daniel Mota MD PCP - General Internal Medicine 10/20/16 09/23/19 Ayan Clayton MD [address] [place], [place] [phone] PCP - General Internal Medicine 09/24/19 documented as of this encounter
--- OUTSIDE RECORDS SUMMARY | 2024-04-26 10:13 | XMS_ITS | Encounter Summary ---
Author Organization [facility] Address [address] [place] [address] Care Team Providers Care Sanding Machine Operator Name Role Phone Ayan Clayton MD Primary Care Provider Reason for Visit * Reason Onset Date Comments DME Request 10/15/2019 [facility] Encounter Details Date Type Department Care Team Description 10/15/2019 Telephone Adult Medicine [facility] [address] [place] [address] [phone] Ayan Clayton MD [address] [place] [address] [phone] DME Request ([facility]) Social History Tobacco Use Types Packs/Day Years [...] Miscellaneous Notes * Telephone Encounter - Vida Borjas - 10/29/2019 1:36 PM EDT Patient would like to speak with Kimmy valenzuela [facility] script * Telephone Encounter - Kimmy Hernandez M.A. - 10/29/2019 11:22 AM EDT Spoke with Keyla she is going to fax over a list of patient that she needs information for .. * Telephone Encounter - Marika French - 10/23/2019 11:56 AM EDT Keyla from [employer] called in looking for an update would like a call back. Keyla direct line is [phone]. * Telephone Encounter - Whitley Wright - 10/15/2019 5:48 PM EDT [facility] [facility]. documented in this encounter Plan of Treatment Not on file documented as of this encounter Visit Diagnoses Not on filedocumented in this encounter Care Teams Sanding Machine Operator Relationship Specialty Start Date End Date Ayan Clayton MD [address] [place] [address] PCP - General Internal Medicine 09/24/19 documented as of this encounter
--- OUTSIDE RECORDS SUMMARY | 2024-04-26 10:13 | XMS_ITS | Encounter Summary ---
Author Organization [facility] Address [address] [place] [address] Care Team Providers Care Branch Operations Manager Name Role Phone Daniel Mota MD Primary Care Provider Unavail able Ayan Clayton MD Primary Care Provider [phone] Encounter Details Date Type Department Care Team Description 02/05/2019 Telephone General Surgery - [place] 175 [facility] [address] [place] [address] Torrey Moreno MD [address] [place] [address] DRIVE [address] [place], [place] [phone] Social History Tobacco Use Types Packs/Day Years [...] on filedocumented in this encounter Care Teams Branch Operations Manager Relationship Specialty Start Date End Date Daniel Mota MD PCP - General Internal Medicine 10/20/16 09/23/19 Ayan Clayton MD [address] [place] [address] [phone] PCP - General Internal Medicine 09/24/19 documented as of this encounter
--- OUTSIDE RECORDS SUMMARY | 2024-04-26 10:13 | XMS_ITS | Encounter Summary ---
Author Organization [facility] Address [address] [place] [address] Care Team Providers Care Glaze Carrier Name Role Phone Daniel Mota MD Primary Care Provider Unavail able Ayan Clayton MD Primary Care Provider [phone] Encounter Details Date Type Department Care Team Description 04/15/2019 Hospital Medical Records 4 [place] [address] Ta Garcia MD Social History Tobacco Use [...] on filedocumented in this encounter Care Teams Glaze Carrier Relationship Specialty Start Date End Date Daniel Mota MD PCP - General Internal Medicine 10/20/16 09/23/19 Ayan Clayton MD [address] [place] [address] [phone] PCP - General Internal Medicine 09/24/19 documented as of this encounter
--- OUTSIDE RECORDS SUMMARY | 2024-04-26 10:13 | XMS_ITS | Encounter Summary ---
Author Organization [facility] Address [address] [place] [address] Care Team Providers Care Operations Advisor Name Role Phone Ayan Clayton MD Primary Care Provider [phone] Encounter Details Date Type Department Care Team Description 08/15/2023 Orders Only Pulmonology - [place] 175 [facility] [address] [place] [phone] Jil Freeman APRN [address] [facility] [address] [place] [phone] Chronic bronchitis, unspecified chronic bronchitis type (HCC); [...] examination documented in this encounter Care Teams Operations Advisor Relationship Specialty Start Date End Date Ayan Clayton MD [address] [place] [address] PCP - General Internal Medicine 09/24/19 documented as of this encounter
--- OUTSIDE RECORDS SUMMARY | 2024-04-26 10:13 | XMS_ITS | Encounter Summary ---
Author Organization [facility] Address [address] [place] [address] Care Team Providers Care Painter Foreman Name Role Phone Daniel Mota MD Primary Care Provider [facility] Ayan Pulliam MD Primary Care Provider [phone] Encounter Details Date Type Department Care Team Description 05/02/2019 Telephone Adult Medicine [facility] [place] [address] [place] [address] Daniel Mota MD Social History Tobacco Use [...] L.P.N. - 05/02/2019 12:08 PM EST Called [facility] [phone] On hold for 5 min * Telephone Encounter - Daniel Mota MD - 05/02/2019 11:05 AM EST Please get note from eye and [facility]. documented in this encounter Plan of Treatment Not on file documented as of this encounter Visit Diagnoses Not on filedocumented in this encounter Care Teams Painter Foreman Relationship Specialty Start Date End Date Daniel Mota MD PCP - General Internal Medicine 10/20/16 09/23/19 Ayan Clayton MD [address] [place] [address] PCP - General Internal Medicine 09/24/19 documented as of this encounter"
--- OUTSIDE RECORDS SUMMARY | 2024-04-26 10:13 | XMS_ITS | Encounter Summary ---
Author Organization [facility] Address [address] [place] [address] Care Team Providers Care Layout Inspector Name Role Phone Ayan Clayton MD Primary Care Provider [phone] Reason for Visit * Reason Onset Date Comments [facility]NA Call 08/31/2023 Encounter Details Date Type Department Care Team Description 08/31/2023 Telephone Adult Medicine [address] [phone] Ayan Clayton MD [address] [place] [address] [phone] [facility] Call Social History Tobacco Use Types [...] - 08/31/2023 11:56 AM EDT [facility]o oders for nursing Ortho gave the original order for PTand OT Please review and advise Please send response to the [facility] pool P [phone] Thank you Last visit08/01/23 documented in this encounter Plan of Treatment Not on file documented as of this encounter Visit Diagnoses Not on filedocumented in this encounter Care Teams Layout Inspector Relationship Specialty Start Date End Date Ayan Clayton MD [address] [place] [address] PCP - General Internal Medicine 09/24/19 documented as of this encounter
--- OUTSIDE RECORDS SUMMARY | 2024-04-26 10:13 | XMS_ITS | Encounter Summary ---
Author Organization [facility] Address [address] [place] [address] Care Team Providers Care Private Household Worker Name Role Phone Daniel Mota MD Primary Care Provider Ayan Rubalcava MD Primary Care Provider [phone] Reason for Visit * Reason Comments E-prescribe Rx Request Encounter Details Date Type Department Care Team Description 09/11/2019 Refill Pulmonology - [place] 175 [facility] [address] [place] [phone] Carlos Hurley MD 175 [facility] [address] [place] [phone] E-prescribe Rx Request Social History Tobacco Use [...] asthma documented in this encounter Care Teams Private Household Worker Relationship Specialty Start Date End Date Daniel Mota MD PCP - General Internal Medicine 10/20/16 09/23/19 Ayan Clayton MD [address] [place] [address] PCP - General Internal Medicine 09/24/19 documented as of this encounter
--- OUTSIDE RECORDS SUMMARY | 2024-04-26 10:13 | XMS_ITS | Encounter Summary ---
Author Organization [facility] Address [address] [place] [address] Care Team Providers Care Adoption Manager Name Role Phone Daniel Mota MD Primary Care Provider Unavail Victor Manuel Yu MD Primary Care Provider Unava ilable Daniel Mota MD Primary Care Provider Unavail Ayan Pulliam MD Primary Care Provider [phone] Victor Manuel Gonzales MD Primary Care Provider Justinava jaxson Encounter Details Date Type Department Care Team Description 11/27/2013 Controlled Substance Plan Medical Records [address] [place] [address] Abstract, Provider Social History Tobacco Use Types [...] on filedocumented in this encounter Care Teams Adoption Manager Relationship Specialty Start Date End Date Daniel Mota MD PCP - General 07/27/1994 12/22/15 Victor Manuel Gonzales MD PCP - General Internal Medicine 07/22/16 10/19/16 Daniel Mota MD PCP - General Internal Medicine 10/20/16 09/23/19 Ayan Clayton MD [address] [place] [address] PCP - General Internal Medicine 09/24/19 Victor Manuel Gonzales MD PCP - General 12/23/15 07/21/16 documented as of this encounter
--- OUTSIDE RECORDS SUMMARY | 2024-04-26 10:13 | XMS_ITS | Encounter Summary ---
Author Organization [facility] Address [address] [place] [address] Care Team Providers Care Picker Machine Operator Name Role Phone Daniel Mota MD Primary Care Provider Unavail Victor Manuel Yu MD Primary Care Provider Unava ilable Daniel Mota MD Primary Care Provider Unavail able Ayan Clayton MD Primary Care Provider [phone] Victor Manuel Gonzales MD Primary Care Provider Unava ilable Reason for Referral * Specialist (Routine) - Authorized/Booked Specialty Diagnoses / Procedures Referred By Contact Referred To Contact INTERVENTIONAL RADIOLOGY Procedures REFERRAL TO INTERVENTIONAL RADIOLOGY Bharath Rico MD [address] [place] [address] Ext Interventional Rad Referral ID Status Reason Start Date Expiration Date V isits Requested Visits Authorized SEE REVIEW 11/06/12 Authorized/ Booked 11/27/2012 02/27/2013 1 1 * Specialist (Routine) - Authorized/Booked Specialty Diagnoses / Procedures Referred By Contact Referred To Contact INTERVENTIONAL RADIOLOGY Diagnoses Lymphadenopathy Procedures REFERRAL TO INTERVENTIONAL RADIOLOGY Bharath Rico MD [address] [place] [phone] Ext Interventional Rad Referral ID Status Reason Start Date Expiration Date V isits Requested Visits Authorized SEE REVIEW 11/06/12 Authorized/ Booked 11/27/2012 02/27/2013 1 1 Encounter Details Date Type Department Care Team Description 11/27/2012 Orders Only General Surgery [address] [place] [address] Bharath Rico MD [address] [place] [address] Lymphadenopathy (Primary Dx) Social History Tobacco Use [...] nodes documented in this encounter Care Teams Picker Machine Operator Relationship Specialty Start Date End Date Daniel Mota MD PCP - General 07/27/1994 12/22/15 Victor Manuel Gonzales MD PCP - General Internal Medicine 07/22/16 10/19/16 Daniel Mota MD PCP - General Internal Medicine 10/20/16 09/23/19 Ayan Clayton MD [address] [place] [address] PCP - General Internal Medicine 09/24/19 Victor Manuel Gonzales MD PCP - General 12/23/15 07/21/16 documented as of this encounter
--- OUTSIDE RECORDS SUMMARY | 2024-04-26 10:13 | XMS_ITS | Encounter Summary ---
Author Organization [facility] Address [address] [place] [address] Care Team Providers Care Public Transit Trolley Driver Name Role Phone Daniel Mota MD Primary Care Provider Unavail able Ayan Clayton MD Primary Care Provider [phone] Encounter Details Date Type Department Care Team Description 07/17/2019 Primary Special Educator Report Medical Records [address] [place] [address] Ta Garcia MD Social History Tobacco Use [...] on filedocumented in this encounter Care Teams Public Transit Trolley Driver Relationship Specialty Start Date End Date Daniel Mota MD PCP - General Internal Medicine 10/20/16 09/23/19 Ayan Clayton MD [address] [place] [address] [id number] PCP - General Internal Medicine 09/24/19 documented as of this encounter
--- OUTSIDE RECORDS SUMMARY | 2024-04-26 10:13 | XMS_ITS | Encounter Summary ---
Author Organization [facility] Address [address] [place] [address] Care Team Providers Care Cable Repairer Name Role Phone Daniel Mota MD Primary Care Provider Unavail Victor Manuel Yu MD Primary Care Provider Unava ilable Daniel Mota MD Primary Care Provider Unavail Ayan Pulliam MD Primary Care Provider [phone] Victor Manuel Gonzales MD Primary Care Provider Unava ilable Reason for Visit * Reason Onset Date Comments Provider Call Back 10/15/2013 Medication 10/15/2013 Encounter Details Date Type Department Care Team Description 10/15/2013 Telephone Physiatry - [place] [address] [place] [id number] Surjit Reese DO Provider Call Back; Medication Social History Tobacco Use Types Packs/Day Years [...] encounter Miscellaneous Notes * Telephone Encounter - Angela Lazo L.P.N. - 10/18/2013 3:19 PM EDT Script to ppu spec dept Called pts cell # phone just rings no v/m Home # called # disconnected or no longer in service per recording Message sent via Selphee * Telephone Encounter - Surjit Reese - 10/18/2013 3:14 PM EDT I prescribed MS-Contin 30 mg q8 hours. * Telephone Encounter - Rain Landis M.A. - 10/17/2013 8:44 AM EDT I spoke with patient her med schedule is as follows per patient, reviewed twice on phone with her and confirmed 6am 1 MS Contin/ 2 Percocet 10:30am 1 MS Contin/ 2 Percocet 3-4pm 1 MS contin/2 Percocet 10pm 1 MS contin/ 2 Percocet Patient also counted pills while on phone and said that she has 19 MS contin and 24 Percocet left * Telephone Encounter - Rain Landis M.A. - 10/16/2013 1:40 PM EDT Message left for patient to call back * Telephone Encounter - Surjit Reese - 10/16/2013 1:20 PM EDT I will for now, but she still has her MS-Contin and Percocet, did she try to take them both and seeif it helps? * Telephone Encounter - Rain Landis M.A. - 10/16/2013 9:45 AM EDT Okay, who will be writing this script? * Telephone Encounter - Surjit Reese - 10/16/2013 7:55 AM EDT I will recommend immediate release oxycodone 20 mg TID PRN, she can split them if she wants. * Telephone Encounter - Daniel Mota MD - 10/15/2013 5:39 PM EDT I would feel most comfortable with conservative medication dosing. * Telephone Encounter - Rain Landis M.A. - 10/15/2013 3:33 PM EDT Message left for patient that Dr Reese will not be able to speak with her tomorrow morning but will review medication with Dr Mota and then we would call her back. * Telephone Encounter - Surjit Reese - 10/15/2013 3:14 PM EDT I probably would not be able to talk to her tomorrow. Her other option is to increase MS-Contin to 30 mg TID, or replace it with Oxycodone 20 mg QID. However, ultimately Dr. Mota has to be comfortable to take over. * Telephone Encounter - Rain Landis M.A. - 10/15/2013 8:55 AM EDT Please advise * Telephone Encounter - Vida De Jesus - 10/15/2013 8:35 AM EDT Patient is calling about Morphine Sulfate ER (MS CONTIN) 15 MG TBCR. She states this medication is not working and she can get calls on her cell phone while she is at work. She works at [employer] until 11 pm. She wants to stop in tomorrow to speak with Dr. Reese about changing her medication. She did state that he could leave a message on her cell phone as to weather she is able to speak with him early tomorrow morning about this. documented in this encounter Plan of Treatment Not on file documented as of this encounter Visit Diagnoses Diagnosis Lumbar spinal stenosis Spinal stenosis, lumbar region, without neurogenic claudication Lumbago Radiculitis, lumbosacral Thoracic or lumbosacral neuritis or radiculitis, unspecified documented in this encounter Care Teams Cable Repairer Relationship Specialty Start Date End Date Daniel Mota MD PCP - General 07/27/1994 12/22/15 Victor Manuel Gonzales MD PCP - General Internal Medicine 07/22/16 10/19/16 Daniel Mota MD PCP - General Internal Medicine 10/20/16 09/23/19 Ayan Clayton MD [address] [place] [address] PCP - General Internal Medicine 09/24/19 Victor Manuel Gonzales MD PCP - General 12/23/15 07/21/16 documented as of this encounter
--- OUTSIDE RECORDS SUMMARY | 2024-04-26 10:13 | XMS_ITS | Encounter Summary ---
Author Organization [facility] Address [address] [place] [address] Care Team Providers Care Western Philosophy Professor Name Role Phone Daniel Mota MD Primary Care Provider Unavail able Ayan Clayton MD Primary Care Provider [phone] Encounter Details Date Type Department Care Team Description 02/25/2019 Orders Only Adult Medicine [address] [address] Daniel Mota MD Social History Tobacco Use [...] on filedocumented in this encounter Care Teams Western Philosophy Professor Relationship Specialty Start Date End Date Daniel Mota MD PCP - General Internal Medicine 10/20/16 09/23/19 Ayan Clayton MD [address] [place] [address] [id number] PCP - General Internal Medicine 09/24/19 documented as of this encounter
--- OUTSIDE RECORDS SUMMARY | 2024-04-26 10:13 | XMS_ITS | Encounter Summary ---
Author Organization [facility] Address [address] [place] [address] Care Team Providers Care Manufacturing Process Technician Name Role Phone Ayan Clayton MD Primary Care Provider [phone] Encounter Details Date Type Department Care Team Description 11/05/2019 Hospital Medical Records [address] [place] [address] [facility] Medical Social History Tobacco Use Types [...] on filedocumented in this encounter Care Teams Manufacturing Process Technician Relationship Specialty Start Date End Date Ayan Clayton MD [address] [place], [place] [phone] PCP - General Internal Medicine 09/24/19 documented as of this encounter
--- OUTSIDE RECORDS SUMMARY | 2024-04-26 10:13 | XMS_ITS | Encounter Summary ---
Author Organization [facility] Address [address] [place] [address] Care Team Providers Care Horses Or Mules Teamster Name Role Phone Daniel Mota MD Primary Care Provider Unavail able Ayan Clayton MD Primary Care Provider [phone] Encounter Details Date Type Department Care Team Description 04/15/2019 Employee Wellness/Fitness Coordinator Report Medical Records [address] [place] [address] Bharath Block PA-C Social History Tobacco Use [...] on filedocumented in this encounter Care Teams Horses Or Mules Teamster Relationship Specialty Start Date End Date Daniel Mota MD PCP - General Internal Medicine 10/20/16 09/23/19 Ayan Clayton MD [address] [place] [address] PCP - General Internal Medicine 09/24/19 documented as of this encounter
--- OUTSIDE RECORDS SUMMARY | 2024-04-26 10:13 | XMS_ITS | Encounter Summary ---
Author Organization [facility] Address [address] [place] [address] Care Team Providers Care Taker Down Name Role Phone Ayan Clayton MD Primary Care Provider [phone] Reason for Visit * Reason Onset Date Comments Faxed Order 11/19/2019 allied Encounter Details Date Type Department Care Team Description 11/19/2019 Telephone Adult Medicine [facility] [address] [place], [place] [phone] Ayan Clayton MD [address] [place] [address] [phone] Faxed Order (allied) Social History Tobacco Use [...] on filedocumented in this encounter Care Teams Taker Down Relationship Specialty Start Date End Date Ayan Clayton MD [address] [place] [address] PCP - General Internal Medicine 09/24/19 documented as of this encounter
--- OUTSIDE RECORDS SUMMARY | 2024-04-26 10:13 | XMS_ITS | Encounter Summary ---
Author Organization [facility] Address [address] [place] [address] Care Team Providers Care Senior Warehouse Clerk Name Role Phone Ayan Clayton MD Primary Care Provider [phone] Encounter Details Date Type Department Care Team Description 01/03/2024 Telephone Adult Medicine [facility] [place] [place] [address] [place] [address] [phone] Ayan Clayton MD [address] [place] [address] [phone] Social History Tobacco Use Types Packs/Day Years [...] encounter Miscellaneous Notes * Telephone Encounter - Mela Benton R.N. - 01/03/2024 2:44 PM EDT Emma from Chemistry called with Critical CO2 [address] Gomez. She will call that office with results. documented in this encounter Plan of Treatment Not on file documented as of this encounter Visit Diagnoses Not on filedocumented in this encounter Care Teams Senior Warehouse Clerk Relationship Specialty Start Date End Date Ayan Clayton MD [address] [place] [address] PCP - General Internal Medicine 09/24/19 documented as of this encounter
--- OUTSIDE RECORDS SUMMARY | 2024-04-26 10:13 | XMS_ITS | Encounter Summary ---
Author Organization [facility] Address [address] [place] [address] Care Team Providers Care Log Rafter Name Role Phone Daniel Mota MD Primary Care Provider Ayan Rubalcava MD Primary Care Provider [phone] Reason for Visit * Reason Onset Date Comments radiology 02/04/2019 Encounter Details Date Type Department Care Team Description 02/04/2019 Telephone MRI - [place] [address] [place] [address] Yonis Servin PA-C radiology Social History Tobacco [...] on filedocumented in this encounter Care Teams Log Rafter Relationship Specialty Start Date End Date Daniel Mota MD PCP - General Internal Medicine 10/20/16 09/23/19 Ayan Clayton MD [address] [place], [place] [phone] PCP - General Internal Medicine 09/24/19 documented as of this encounter
--- OUTSIDE RECORDS SUMMARY | 2024-04-26 10:13 | XMS_ITS | Encounter Summary ---
Author Organization [facility] Address [address] [place] [address] Care Team Providers Care Extruding Press Operator Name Role Phone Ayan Clayton MD Primary Care Provider [phone] Encounter Details Date Type Department Care Team Description 12/14/2023 Telephone Adult Medicine [address] [phone] Ayan Clayton MD [address] [place] [address] [phone] Social History Tobacco Use Types Packs/Day Years [...] on filedocumented in this encounter Care Teams Extruding Press Operator Relationship Specialty Start Date End Date Ayan Clayton MD [address] [place] [address] PCP - General Internal Medicine 09/24/19 documented as of this encounter
--- OUTSIDE RECORDS SUMMARY | 2024-04-26 10:14 | XMS_ITS | Encounter Summary ---
Author Organization [facility] Address [address] [place] [address] Care Team Providers Care Gas Fitter Apprentice Name Role Phone Daniel Mota MD Primary Care Provider Unavail Victor Manuel Yu MD Primary Care Provider Unava ilable Daniel Mota MD Primary Care Provider Unavail Ayan Pulliam MD Primary Care Provider [phone] Victor Manuel Gonzales MD Primary Care Provider Unava ilmaximino Encounter Details Date Type Department Care Team Description 05/27/2008 [facility] Medical Records [address] [place] [address] Laurent Harrington MD Social History Tobacco Use Types Packs/Day [...] filedocumented in this encounter Care Teams Gas Fitter Apprentice Relationship Specialty Start Date End Date Daniel Mota MD PCP - General 07/27/1994 12/22/15 Victor Manuel Gonzales MD PCP - General Internal Medicine 07/22/16 10/19/16 Daniel Mota MD PCP - General Internal Medicine 10/20/16 09/23/19 Ayan Clayton MD [address] [place] [address] PCP - General Internal Medicine 09/24/19 Victor Manuel Gonzales MD PCP - General 12/23/15 07/21/16 documented as of this encounter
--- OUTSIDE RECORDS SUMMARY | 2024-04-26 10:14 | XMS_ITS | Encounter Summary ---
Author Organization [facility] Address [address] [place] [address] Care Team Providers Care Inbound Sales Manager Name Role Phone Daniel Mota MD Primary Care Provider Unavail able Ayan Clayton MD Primary Care Provider [phone] Encounter Details Date Type Department Care Team Description 03/06/2019 Travel Rn Report Medical Records [address] [place] [address] Ta Garcia MD Social History Tobacco Use [...] on filedocumented in this encounter Care Teams Inbound Sales Manager Relationship Specialty Start Date End Date Daniel Mota MD PCP - General Internal Medicine 10/20/16 09/23/19 Ayan Clayton MD [address] [place], [place] [phone] PCP - General Internal Medicine 09/24/19 documented as of this encounter
--- OUTSIDE RECORDS SUMMARY | 2024-04-26 10:15 | XMS_ITS | Encounter Summary ---
Author Organization [facility] Address [address] [place] [address] Care Team Providers Care Police Lieutenant Patrol Name Role Phone Daniel Mota MD Primary Care Provider Unavail Victor Manuel Yu MD Primary Care Provider Unava ilable Daniel Mota MD Primary Care Provider Unavail Ayan Pulliam MD Primary Care Provider [phone] Victor Manuel Gonzales MD Primary Care Provider Candida puri Encounter Details Date Type Department Care Team Description 01/26/2015 [facility] Medical Records [address] [place], [place] [phone] [place] [address] Social History Tobacco Use Types Packs/Day Years [...] on filedocumented in this encounter Care Teams Police Lieutenant Patrol Relationship Specialty Start Date End Date Daniel Mota MD PCP - General 07/27/1994 12/22/15 Victor Manuel Gonzales MD PCP - General Internal Medicine 07/22/16 10/19/16 Daniel Mota MD PCP - General Internal Medicine 10/20/16 09/23/19 Ayan Clayton MD [address] [place] [id number] PCP - General Internal Medicine 09/24/19 Victor Manuel Gonzales MD PCP - General 12/23/15 07/21/16 documented as of this encounter
--- OUTSIDE RECORDS SUMMARY | 2024-04-26 10:15 | XMS_ITS | Encounter Summary ---
Author Organization [facility] Address [address] [place] [address] Care Team Providers Care Instructor Hairspring Name Role Phone Daniel Mota MD Primary Care Provider Unavail Victor Manuel Yu MD Primary Care Provider Unava ilable Daniel Mota MD Primary Care Provider Unavail Ayan Pulliam MD Primary Care Provider [phone] Victor Manuel Gonzales MD Primary Care Provider Unava ilmaximino Encounter Details Date Type Department Care Team Description 04/08/2014 Vitreo Retinal Surgeon Report Medical Records [address] [place] [address] [facility] [address] [place] [address] Social History Tobacco Use Types Packs/Day Years [...] on filedocumented in this encounter Care Teams Instructor Hairspring Relationship Specialty Start Date End Date Daniel Mota MD PCP - General 07/27/1994 12/22/15 Victor Manuel Gonzales MD PCP - General Internal Medicine 07/22/16 10/19/16 Daniel Mota MD PCP - General Internal Medicine 10/20/16 09/23/19 Ayan Clayton MD [address] [place] [address] PCP - General Internal Medicine 09/24/19 Victor Manuel Gonzales MD PCP - General 12/23/15 07/21/16 documented as of this encounter
--- OUTSIDE RECORDS SUMMARY | 2024-04-26 10:15 | XMS_ITS | Encounter Summary ---
Author Organization [facility] Address [address] [place] [address] Care Team Providers Care Irrigation Engineer Name Role Phone Ayan Clayton MD Primary Care Provider [phone] Encounter Details Date Type Department Care Team Description 01/27/2020 Refill Adult Medicine [address] [phone] Ayan Clayton MD [address] [place] [address] [phone] Social History Tobacco Use Types Packs/Day Years [...] on filedocumented in this encounter Care Teams Irrigation Engineer Relationship Specialty Start Date End Date Ayan Clayton MD [address] [place] [address] [phone] PCP - General Internal Medicine 09/24/19 documented as of this encounter
--- OUTSIDE RECORDS SUMMARY | 2024-04-26 10:15 | XMS_ITS | Encounter Summary ---
Author Organization [facility] Address [address] [place] [address] Care Team Providers Care Sr. Vendor Management Associate Name Role Phone Ayan Clayton MD Primary Care Provider [phone] Reason for Visit * Reason Onset Date Comments Faxed Order 01/28/2020 Encounter Details Date Type Department Care Team Description 01/28/2020 Telephone Adult Medicine [facility] [address] [place] [address] [phone] Ayan Clayton MD [address] [place] [address] [phone] Faxed Order Social History Tobacco Use Types [...] encounter Miscellaneous Notes * Telephone Encounter - Tiffany Velásquez - 01/28/2020 9:08 AM EST Fax orders from [facility], please sign and fax back. documented in this encounter Plan of Treatment Not on file documented as of this encounter Visit Diagnoses Not on filedocumented in this encounter Care Teams Sr. Vendor Management Associate Relationship Specialty Start Date End Date Ayan Clayton MD [address] [place] [address] PCP - General Internal Medicine 09/24/19 documented as of this encounter
--- OUTSIDE RECORDS SUMMARY | 2024-04-26 10:15 | XMS_ITS | Encounter Summary ---
Author Organization [facility] Address [address] [place] [address] Care Team Providers Care Radiation Protection Specialist Name Role Phone Ayan Clayton MD Primary Care Provider [phone] Reason for Visit * Reason Onset Date Comments Provider Call Back 03/18/2020 Encounter Details Date Type Department Care Team Description 03/18/2020 Telephone Adult Medicine [facility] [address] [place] [address] Ayan Clayton MD [address] [place] [address] Provider Call Back Social History Tobacco Use Types Packs/Day Years [...] encounter Miscellaneous Notes * Telephone Encounter - Monica Owen M.A. - 04/01/2020 4:46 PM EST 3rd attempt please send letter * Telephone Encounter - Monica Owen M.A. - 03/23/2020 4:04 PM EST Left message for pt to returned my call [phone] * Telephone Encounter - Monica Owen M.A. - 03/18/2020 4:38 PM EST Left message for pt to returned my call [phone] * Telephone Encounter - Ayan Clayton MD - 03/18/2020 4:32 PM EST Pt has a controlled substance contract violation so I can take over all her meds EXCEPT for controlled substances * Telephone Encounter - Monica Owen M.A. - 03/18/2020 1:56 PM EST Please read message below and advise * Telephone Encounter - Marika Dooley - 03/18/2020 1:51 PM EST Caller requesting call back from provider: Is the caller the patient? NO If caller is not the patient, what is the callers name? Angie Callers relationship to patient? OUTSIDE PLANT FIELD ENGINEER If person calling is not the patient themselves, is there a verbal release in FYI or permanent comments for this person: YES Reason for call back: Angie wants to know if Dr. Clayton can take over all of the patients medication. Please return call to Angie Caller offered to speak with the nurse for assistance: YES Response: Patient offered to speak with nurse for assistance and patient agreed. Message forwarded to nurse. documented in this encounter Plan of Treatment Not on file documented as of this encounter Visit Diagnoses Not on filedocumented in this encounter Care Teams Radiation Protection Specialist Relationship Specialty Start Date End Date Ayan Clayton MD [address] [place] [address] PCP - General Internal Medicine 09/24/19 documented as of this encounter
--- OUTSIDE RECORDS SUMMARY | 2024-04-26 10:15 | XMS_ITS | Encounter Summary ---
Author Organization [facility] Address [address] [place] [address] Care Team Providers Care Solvent Station Attendant Name Role Phone Ayan Clayton MD Primary Care Provider [phone] Reason for Visit * Reason Onset Date Comments medication problems 10/29/2020 Encounter Details Date Type Department Care Team Description 10/29/2020 Telephone Adult Medicine [facility] [address] [place] [address] [phone] Ayan Clayton MD [address] [place] [address] [phone] medication problems Social History Tobacco Use Types [...] on filedocumented in this encounter Care Teams Solvent Station Attendant Relationship Specialty Start Date End Date Ayan Clayton MD [address] [place] [address] PCP - General Internal Medicine 09/24/19 documented as of this encounter
--- OUTSIDE RECORDS SUMMARY | 2024-04-26 10:15 | XMS_ITS | Encounter Summary ---
Author Organization [facility] Address [address] [place] [address] Care Team Providers Care Film Librarian Name Role Phone Ayan Clayton MD Primary Care Provider [phone] Encounter Details Date Type Department Care Team Description 10/08/2020 Curriculum Counselor Report Medical Records [address] [place] [address] Skylar Hanna DPM Social History Tobacco Use [...] have Coronavirus / COVID-19? No / Unsure 10/06/2020 11:47 AM EDT documented as of this encounter Plan of Treatment Not on file documented as of this encounter Visit Diagnoses Not on filedocumented in this encounter Care Teams Film Librarian Relationship Specialty Start Date End Date Ayan Clayton MD [address] [place], [place] [phone] PCP - General Internal Medicine 09/24/19 documented as of this encounter
--- OUTSIDE RECORDS SUMMARY | 2024-04-26 10:15 | XMS_ITS | Encounter Summary ---
Author Organization [facility] Address [address] [place] [address] Care Team Providers Care Manager Spanish Name Role Phone Ayan Clayton MD Primary Care Provider [phone] Encounter Details Date Type Department Care Team Description 01/23/2020 Quality Control Report Medical Records [address] [place] [address] [facility] Medical Social History Tobacco Use [...] filedocumented in this encounter Care Teams Manager Spanish Relationship Specialty Start Date End Date Ayan Clayton MD [address] [place], [place] [phone] PCP - General Internal Medicine 09/24/19 documented as of this encounter
--- OUTSIDE RECORDS SUMMARY | 2024-04-26 10:15 | XMS_ITS | Encounter Summary ---
Author Organization [facility] Address [address] [place] [address] Care Team Providers Care Wharf Tally Clerk Name Role Phone Daniel Mota MD Primary Care Provider Unavail able Ayan Clayton MD Primary Care Provider [phone] Encounter Details Date Type Department Care Team Description 03/07/2019 Implant Coordinator Report Medical Records [address] Social History Tobacco Use Types Packs/Day [...] on filedocumented in this encounter Care Teams Wharf Tally Clerk Relationship Specialty Start Date End Date Daniel Mota MD PCP - General Internal Medicine 10/20/16 09/23/19 Ayan Clayton MD [address] [place] [address] PCP - General Internal Medicine 09/24/19 documented as of this encounter
--- OUTSIDE RECORDS SUMMARY | 2024-04-26 10:15 | XMS_ITS | Encounter Summary ---
Author Organization [facility] Address [address] [place] [address] Care Team Providers Care Plumbing Assembler Installer Name Role Phone Ayan Clayton MD Primary Care Provider [phone] Reason for Visit * Reason Comments E-prescribe Rx Request Encounter Details Date Type Department Care Team Description 01/23/2020 Refill Adult Medicine [facility] [address] [place], [place] [phone] Ayan Clayton MD [address] [place] [address] [phone] E-prescribe Rx Request Social History Tobacco Use [...] * Telephone Encounter - Tiffany Velásquez - 01/23/2020 8:55 AM EDT Patient would like script to be: E-PRESCRIBED/FAXED TO PHARMACY WHEN WAS THE PATIENT'S LAST APPOINTMENT IN ADULT MEDICINE? 11/21/19 WHEN WAS THE LAST TIME THE PATIENT SAW THEIR PCP? Same as above Does patient have an upcoming appointment? Yes 04/02/19 (THE MEDICATION REQUESTED IS ON THE MED [...] N/A Patients current insurance carrier is: Payor: [facility] / Plan: ONE CARE [facility] / Product Type: HMO [id number] documented in this encounter Plan of Treatment Not on file documented as of this encounter Visit Diagnoses Not on filedocumented in this encounter Care Teams Plumbing Assembler Installer Relationship Specialty Start Date End Date Ayan Clayton MD [address] [place] [address] PCP - General Internal Medicine 09/24/19 documented as of this encounter
--- OUTSIDE RECORDS SUMMARY | 2024-04-26 10:15 | XMS_ITS | Encounter Summary ---
Author Organization [facility] Address [address] [place] [address] Care Team Providers Care Edge Gluer Name Role Phone Daniel Mota MD Primary Care Provider Unavail Victor Manuel Yu MD Primary Care Provider Unava ilable Daniel Mota MD Primary Care Provider Unavail Ayan Pulliam MD Primary Care Provider [phone] Victor Manuel Gonzales MD Primary Care Provider Unava ilmaximino Encounter Details Date Type Department Care Team Description 05/15/2014 Hospital Medical Records [address] [place] [address] Antoinette Quevedo MD [address] [place] [address] Social History Tobacco Use Types Packs/Day Years [...] on filedocumented in this encounter Care Teams Edge Gluer Relationship Specialty Start Date End Date Daniel Mota MD PCP - General 07/27/1994 12/22/15 Victor Manuel Gonzales MD PCP - General Internal Medicine 07/22/16 10/19/16 Daniel Mota MD PCP - General Internal Medicine 10/20/16 09/23/19 Ayan Clayton MD [address] [place] [address] PCP - General Internal Medicine 09/24/19 Victor Manuel Gonzales MD PCP - General 12/23/15 07/21/16 documented as of this encounter
--- OUTSIDE RECORDS SUMMARY | 2024-04-26 10:15 | XMS_ITS | Encounter Summary ---
Author Organization [facility] Address [address] [place] [address] Care Team Providers Care Electrical Engineering Drafting Officer Name Role Phone Ayan Clayton MD Primary Care Provider [phone] Encounter Details Date Type Department Care Team Description 12/24/2019 Home Health Certification Medical Records [address] [place] [address] Social History Tobacco Use Types Packs/Day Years [...] filedocumented in this encounter Care Teams Electrical Engineering Drafting Officer Relationship Specialty Start Date End Date Ayan Clayton MD [address] [place] [address] [phone] PCP - General Internal Medicine 09/24/19 documented as of this encounter
--- OUTSIDE RECORDS SUMMARY | 2024-04-26 10:15 | XMS_ITS | Encounter Summary ---
Author Organization [facility] Address [address] [place] [address] Care Team Providers Care Kosher Dietary Service Manager Name Role Phone Daniel Mota MD Primary Care Provider [facility] Ayan Pulliam MD Primary Care Provider [phone] Reason for Visit * Reason Onset Date Comments Prior Authorization 05/21/2019 Encounter Details Date Type Department Care Team Description 05/21/2019 Telephone Adult Medicine [address] [address] Daniel Mota MD Prior Authorization Social History [...] 10:33 AM EDT Spoke with Ashely romero [facility] who stated that p.a. For the jeronimo is through [facility]. Shestated that they faxed it over to them. Called and spoke with Eladio who stated that the jeronimo and its supplies were approved . Approved from 05/31/2019 until 05/30/2020 Authorization number # [id number] * Telephone Encounter - Susan Gutierrez M.A. - 06/26/2019 12:01 PM EDT Prior [...] What Pharmacy did the fax come from: [facility] Pharmacy fax #: [phone] [employer] Information from fax: What Prescription Plan does the patient have? BIN/PCN if applicable: Cardholder ID: Person Code: Relationship Code: Help desk phone: [phone] documented in this encounter Plan of Treatment Not on file documented as of this encounter Visit Diagnoses Not on filedocumented in this encounter Care Teams Kosher Dietary Service Manager Relationship Specialty Start Date End Date Daniel Mota MD PCP - General Internal Medicine 10/20/16 09/23/19 Ayan Clayton MD [address] [place] [address] PCP - General Internal Medicine 09/24/19 documented as of this encounter
--- OUTSIDE RECORDS SUMMARY | 2024-04-26 10:15 | XMS_ITS | Encounter Summary ---
Author Organization [facility] Address [address] [place] [address] Care Team Providers Care State Epidemiologist Name Role Phone Ayan Clayton MD Primary Care Provider [phone] Encounter Details Date Type Department Care Team Description 05/07/2020 Telephone General Surgery - [place] [address] [facility] [address] [place] [address] Torrey Moreno MD [address] [place] [address] [address] [place], [place] [phone] Social History Tobacco Use Types Packs/Day Years [...] encounter Miscellaneous Notes * Telephone Encounter - Michelle Shrestha M.A. - 05/07/2020 12:55 PM EST Spoke to patient to let her know a prescription has been sent to her pharmacy documented in this encounter Plan of Treatment Not on file documented as of this encounter Visit Diagnoses Not on filedocumented in this encounter Care Teams State Epidemiologist Relationship Specialty Start Date End Date Ayan Clayton MD [address] [place] [address] PCP - General Internal Medicine 09/24/19 documented as of this encounter
--- OUTSIDE RECORDS SUMMARY | 2024-04-26 10:15 | XMS_ITS | Encounter Summary ---
Author Organization [facility] Address [address] [place] [address] Care Team Providers Care Cloud Operations Engineer Name Role Phone Daniel Mota MD Primary Care Provider [facility] Ayan Clayton MD Primary Care Provider [phone] Reason for Visit * Reason Comments E-prescribe Rx Request Encounter Details Date Type Department Care Team Description 04/10/2019 Refill General Surgery - [place] 175 [facility] [address] [place] [id number] Torrey Moreno MD [address] [place] [address] [address] [place] [address] E-prescribe Rx Request Social History Tobacco Use [...] on filedocumented in this encounter Care Teams Cloud Operations Engineer Relationship Specialty Start Date End Date Daniel Mota MD PCP - General Internal Medicine 10/20/16 09/23/19 Ayan Clayton MD [address] [place] [address] PCP - General Internal Medicine 09/24/19 documented as of this encounter
--- OUTSIDE RECORDS SUMMARY | 2024-04-26 10:15 | XMS_ITS | Encounter Summary ---
Author Organization [facility] Address [address] [place] [address] Care Team Providers Care Assistant Service Manager Name Role Phone Daniel Mota MD Primary Care Provider Unavail Victor Manuel Yu MD Primary Care Provider Unava ilable Daniel Mota MD Primary Care Provider Unavail Ayan Pulliam MD Primary Care Provider [phone] Victor Manuel Gonzales MD Primary Care Provider Unava ilmaximino Encounter Details Date Type Department Care Team Description 05/19/2014 Hospital Medical Records [address] [place] [address] Antoinette Quevedo MD [address] [place] [address] Social History Tobacco Use Types Packs/Day Years [...] on filedocumented in this encounter Care Teams Assistant Service Manager Relationship Specialty Start Date End Date Daniel Mota MD PCP - General 07/27/1994 12/22/15 Victor Manuel Gonzales MD PCP - General Internal Medicine 07/22/16 10/19/16 Daniel Mota MD PCP - General Internal Medicine 10/20/16 09/23/19 Ayan Clayton MD [address] [place] [address] PCP - General Internal Medicine 09/24/19 Victor Manuel Gonzales MD PCP - General 12/23/15 07/21/16 documented as of this encounter
--- OUTSIDE RECORDS SUMMARY | 2024-04-26 10:15 | XMS_ITS | Encounter Summary ---
Author Organization [facility] Address [address] [place] [address] Care Team Providers Care Syrup Shed Supervisor Name Role Phone Daniel Mota MD Primary Care Provider Unavail able Ayan Clayton MD Primary Care Provider [phone] Encounter Details Date Type Department Care Team Description 04/11/2019 Release of Information Medical Records [address] [place] [address] Abstract, Provider Social History Tobacco Use Types [...] on filedocumented in this encounter Care Teams Syrup Shed Supervisor Relationship Specialty Start Date End Date Daniel Mota MD PCP - General Internal Medicine 10/20/16 09/23/19 Ayan Clayton MD [address] [place] [address] PCP - General Internal Medicine 09/24/19 documented as of this encounter
--- OUTSIDE RECORDS SUMMARY | 2024-04-26 10:15 | XMS_ITS | Encounter Summary ---
Author Organization [facility] Address [address] [place] [address] Care Team Providers Care Head Of History Name Role Phone Daniel Mota MD Primary Care Provider Unavail Victor Manuel Yu MD Primary Care Provider Unava ilable Daniel Mota MD Primary Care Provider Unavail Ayan Pulliam MD Primary Care Provider [phone] Victor Manuel Gonzales MD Primary Care Provider Unava ilmaximino Encounter Details Date Type Department Care Team Description 01/29/2015 Process Assistant Report Medical Records [address] [place] [address] Austin Dorado Social History Tobacco Use Types [...] on filedocumented in this encounter Care Teams Head Of History Relationship Specialty Start Date End Date Daniel Mota MD PCP - General 07/27/1994 12/22/15 Victor Manuel Gonzales MD PCP - General Internal Medicine 07/22/16 10/19/16 Daniel Mota MD PCP - General Internal Medicine 10/20/16 09/23/19 Ayan Clayton MD [address] [place] [address] PCP - General Internal Medicine 09/24/19 Victor Manuel Gonzales MD PCP - General 12/23/15 07/21/16 documented as of this encounter
--- OUTSIDE RECORDS SUMMARY | 2024-04-26 10:15 | XMS_ITS | Encounter Summary ---
Author Organization [facility] Address [address] [place] [address] Care Team Providers Care Link Wire Fabric Machine Tender Name Role Phone Ayan Clayton MD Primary Care Provider [phone] Reason for Visit * Reason Onset Date Comments Faxed Order 09/09/2020 Encounter Details Date Type Department Care Team Description 09/09/2020 Telephone Adult Medicine [facility] [address] [place] [address] [phone] Ayan Clayton MD [address] [place] [address] [phone] Faxed Order Social History Tobacco Use Types [...] AM EDT More faxed orders received from [employer], placed in Ayan mahmood * Telephone Encounter - Rosa Latham - 09/09/2020 10:23 AM EDT Physician order for Dr. Ayan Clayton's signature documented in this encounter Plan of Treatment Not on file documented as of this encounter Visit Diagnoses Not on filedocumented in this encounter Care Teams Link Wire Fabric Machine Tender Relationship Specialty Start Date End Date Ayan Clayton MD [address] [place] [address] PCP - General Internal Medicine 09/24/19 documented as of this encounter
--- OUTSIDE RECORDS SUMMARY | 2024-04-26 10:15 | XMS_ITS | Encounter Summary ---
Author Organization [facility] Address [address] [place] [address] Care Team Providers Care Chief Steward/Stewardess Name Role Phone Ayan Clayton MD Primary Care Provider [phone] Reason for Referral * Non CRAIG (Routine) - Authorized/Booked Specialty Diagnoses / Procedures Referred By Contac t Referred To Contact Gastroenterology Procedures REFERRAL TO GASTROENTEROLOGY Ayan Clayton MD [address] [place] [address] Gastro [place]/175 175 [facility] [address] [place] [phone] Referral ID Status Reason Start Date Expiration Date V isits Requested Visits Authorized [id number] Authorized/B ooked 08/18/2020 08/18/2021 1 1 Reason for Visit * Reason Onset Date Comments TEST RESULTS 08/18/2020 Encounter Details Date Type Department Care Team Description 08/18/2020 Pt. Non Urgent Medical Question Adult Medicine [facility] [address] [place] [address] Ayan Clayton MD [address] [place] [address] Constipation, unspecified constipation type (Primary Dx); Hypercalcemia; Decreased GFR; Elevated alkaline phosphatase level Social History Tobacco Use Types Packs/Day Years [...] Telephone Encounter - Afsaneh Mtz M.A. - 08/18/2020 12:06 PM EDTFrom: Yanet King To: Mason Clayton Sent: 08/18/2020 11:38 AM EDT Subject: Test results I seen the test results from the blood work but I do not understand them. Can you call and please explain them to me? Ron King documented in this encounter Plan of Treatment Not on file documented as of this encounter Results * (ABNORMAL) 25 HYDROXY INCLUDES FRACTIONS IF PERFORMED (08/21/2020 9:22 AM EDT) VITAMIN D, 25-HYDROXY 29(L) 30 - 80 ng/mL 08/21/2020 12:39 PM EDT [facility] 08/21/2020 9:22 AM EDT 08/21/2020 9:23 AM EDT Narrative [facility] - 08/21/2020 12:39 PM EDT Release to patient->Immediate Ayan Clayton MD LAB [facility] Tel[facility] * (ABNORMAL) COMPREHENSIVE METABOLIC PANEL (08/21/2020 9:22 AM EDT) GLUCOSE 251(H) 70 - 100 mg/dL 08/21/2020 12:33 PM EDT [facility] Comment:Reference range appl icable to fasting specimens only Blood Urea Nitrogen 19 5 - 25 mg/dL 08/21/2020 12:33 PM EDT [facility] CREAT 1.41(H) 0.5 - 1.1 mg/dL 08/21/2020 12:33 PM EDT [facility] GLOMERULAR FILTRATION RATE 38 08/21/2020 12:33 PM EDT [facility] Comment: If patient is -Filipino, multiply result by 1.21 Chronic Kidney Disease: < 60 ml/min/1.73 square meters Kidney Failure: < 15 ml/min/1.73 square meters NA 140 135 - 145 mEq/L 08/21/2020 12:33 PM EDT [facility] K 4.5 3.5 - 5.5 mmol/L 08/21/2020 12:33 PM EDT [facility] CL 108 96 - 110 mmol/L 08/21/2020 12:33 PM EDT [facility] CARBON DIOXIDE (CO2) 28 21 - 32 mmol/L 08/21/2020 12:33 PM EDT [facility] ANION GAP 4 3 - 11 08/21/2020 12:33 PM EDT [facility] CALCIUM 9.7 8.5 - 10.5 mg/dL 08/21/2020 12:33 PM EDT [facility] Albumin 3.6 3.2 - 5.0 G/dL 08/21/2020 12:33 PM EDT [facility] SGPT 23 10 - 60 U/L 08/21/2020 12:33 PM EDT [facility] TOTAL PROTEIN (TP) 7.7 6.0 - 8.0 G/dL 08/21/2020 12:36 PM EDT [facility] BILIRUBIN TOTAL 0.9 0.0 - 1.4 mg/dL 08/21/2020 12:36 PM EDT [facility] SGOT 32 10 - 42 U/L 08/21/2020 12:36 PM EDT [facility] ALK PHOS 444(H) 42 - 121 U/L 08/21/2020 12:36 PM EDT [facility] 08/21/2020 9:22 AM EDT 08/21/2020 9:23 AM EDT Narrative [facility] - 08/21/2020 12:36 PM EDT Release to patient->Immediate Ayan Clayton MD LAB [facility] * (ABNORMAL) PTH INTACT (08/21/2020 9:21 AM EDT) INTACT PTH 16(L) 18 - 88 pg/mL 08/21/2020 12:40 PM EDT [facility] 08/21/2020 9:21 AM EDT 08/21/2020 9:23 AM EDT Narrative [facility] - 08/21/2020 12:40 PM EDT Release to patient->Immediate Ayan Clayton MD LAB Performing Organization Address [facility] Co de Phone Number [facility] documented in this encounter Visit Diagnoses Diagnosis Constipation, unspecified constipation type- Primary Hypercalcemia Decreased GFR Nonspecific abnormal results of kidney function study Elevated alkaline phosphatase level Other nonspecific abnormal serum enzyme levels Elevated alkaline phosphatase level Other nonspecific abnormal serum enzyme levels Hypercalcemia Decreased GFR Nonspecific abnormal results of kidney function study documented in this encounter Care Teams Chief Steward/Stewardess Relationship Specialty Start Date End Date Ayan Clayton MD [address] [place] [address] PCP - General Internal Medicine 09/24/19 documented as of this encounter
--- OUTSIDE RECORDS SUMMARY | 2024-04-26 10:15 | XMS_ITS | Encounter Summary ---
Author Organization [facility] Address [address] [place] [address] Care Team Providers Care Wicker Molded Candles Name Role Phone Daniel Mota MD Primary Care Provider Unavail Victor Manuel Yu MD Primary Care Provider Unava ilable Daniel Mota MD Primary Care Provider Unavail Ayan Pulliam MD Primary Care Provider [phone] Victor Manuel Gonzlaes MD Primary Care Provider Unava ilable Reason for Visit * Reason Onset Date Comments Sinus Problem 07/30/2014 Encounter Details Date Type Department Care Team Description 07/30/2014 Telephone Adult Medicine [address] [address] Daniel Mota MD Sinus Problem Social History [...] on filedocumented in this encounter Care Teams Wicker Molded Candles Relationship Specialty Start Date End Date Daniel Mota MD PCP - General 07/27/1994 12/22/15 Victor Manuel Gonzales MD PCP - General Internal Medicine 07/22/16 10/19/16 Daniel Mota MD PCP - General Internal Medicine 10/20/16 09/23/19 Ayan Clayton MD [address] [place], [place] [phone] PCP - General Internal Medicine 09/24/19 Victor Manuel Gonzales MD PCP - General 12/23/15 07/21/16 documented as of this encounter
--- OUTSIDE RECORDS SUMMARY | 2024-04-26 10:15 | XMS_ITS | Encounter Summary ---
Author Organization [facility] Address [address] [place] [address] Care Team Providers Care Electrician Control Equipment Name Role Phone Ayan Clayton MD Primary Care Provider [phone] Reason for Visit * Reason Onset Date Comments Faxed Order 12/09/2019 Encounter Details Date Type Department Care Team Description 12/09/2019 Telephone Adult Medicine [address] [phone] Ayan Clayton MD [address] [place] [address] [phone] Faxed Order Social History Tobacco Use Types [...] * Telephone Encounter - Rosa Latham - 12/09/2019 1:36 PM EDT Home Health Certification and plan of care for Dr. Ayan Clayton's signature - order #[id number] documented in this encounter Plan of Treatment Not on file documented as of this encounter Visit Diagnoses Not on filedocumented in this encounter Care Teams Electrician Control Equipment Relationship Specialty Start Date End Date Ayan Clayton MD [address] [place] [address] PCP - General Internal Medicine 09/24/19 documented as of this encounter
--- OUTSIDE RECORDS SUMMARY | 2024-04-26 10:15 | XMS_ITS | Encounter Summary ---
Author Organization [facility] Address [address] [place] [address] Care Team Providers Care Ornamental Iron Worker Name Role Phone Daniel Mota MD Primary Care Provider Unavail Victor Manuel Yu MD Primary Care Provider Unava ilable Daniel Mota MD Primary Care Provider Unavail Ayan Pulliam MD Primary Care Provider [phone] Victor Manuel Gonzales MD Primary Care Provider Candida puri Encounter Details Date Type Department Care Team Description 01/26/2015 [facility] Medical Records [address] [place], [place] [phone] [place] [address] Social History Tobacco Use Types Packs/Day Years [...] on filedocumented in this encounter Care Teams Ornamental Iron Worker Relationship Specialty Start Date End Date Daniel Mota MD PCP - General 07/27/1994 12/22/15 Victor Manuel Gonzales MD PCP - General Internal Medicine 07/22/16 10/19/16 Daniel Mota MD PCP - General Internal Medicine 10/20/16 09/23/19 Ayan Clayton MD [address] [place] [address] PCP - General Internal Medicine 09/24/19 Victor Manuel Gonzales MD PCP - General 12/23/15 07/21/16 documented as of this encounter
--- OUTSIDE RECORDS SUMMARY | 2024-04-26 10:15 | XMS_ITS | Encounter Summary ---
Author Organization [facility] Address [address] [place] [address] Care Team Providers Care Senior Architect Name Role Phone Daniel Mota MD Primary Care Provider Unavail able Ayan Clayton MD Primary Care Provider Encounter Details Date Type Department Care Team Description 05/13/2019 Pet Crematory Worker Report Medical Records [address] [place] [address] Jake Limon MD Social History Tobacco Use [...] filedocumented in this encounter Care Teams Senior Architect Relationship Specialty Start Date End Date Daniel Mota MD PCP - General Internal Medicine 10/20/16 09/23/19 Ayan Clayton MD [address] [place], [place] [phone] PCP - General Internal Medicine 09/24/19 documented as of this encounter
--- OUTSIDE RECORDS SUMMARY | 2024-04-26 10:16 | XMS_ITS | Encounter Summary ---
Author Organization [facility] Address [address] [place] [address] Care Team Providers Care Hand Plate Stacker Name Role Phone Daniel Mota MD Primary Care Provider Unavail able Ayan Clayton MD Primary Care Provider [phone] Encounter Details Date Type Department Care Team Description 01/30/2017 Release of Information Medical Records [address] [place] [address] Abstract, Provider Social History Tobacco Use Types [...] on filedocumented in this encounter Care Teams Hand Plate Stacker Relationship Specialty Start Date End Date Daniel Mota MD PCP - General Internal Medicine 10/20/16 09/23/19 Ayan Clayton MD [address] [place] [address] [phone] PCP - General Internal Medicine 09/24/19 documented as of this encounter
--- OUTSIDE RECORDS SUMMARY | 2024-04-26 10:16 | XMS_ITS | Encounter Summary ---
Author Organization [facility] Address [address] [place] [address] Care Team Providers Care Stock Clerk Self Service Store Name Role Phone Victor Manuel Gonzales MD Primary Care Provider Daniel Longoria MD Primary Care Provider [facility] Ayan Clayton MD Primary Care Provider [phone] Victor Manuel Gonzales MD Primary Care Provider Candida puri Encounter Details Date Type Department Care Team Description 03/18/2016 Telephone Adult Medicine [facility] [address] [place] [address] Daniel Mota MD Social History Tobacco Use [...] on filedocumented in this encounter Care Teams Stock Clerk Self Service Store Relationship Specialty Start Date End Date Victor Manuel Gonzales MD PCP - General Internal Medicine 07/22/16 10/19/16 Daniel Mota MD PCP - General Internal Medicine 10/20/16 09/23/19 Ayan Clayton MD [address] [place] [address] PCP - General Internal Medicine 09/24/19 Victor Manuel Gonzales MD PCP - General 12/23/15 07/21/16 documented as of this encounter
--- OUTSIDE RECORDS SUMMARY | 2024-04-26 10:16 | XMS_ITS | Encounter Summary ---
Author Organization [facility] Address [address] [place] [address] Care Team Providers Care Group Activities Aide Name Role Phone Victor Manuel Gonzales MD Primary Care Provider Daniel Longoria MD Primary Care Provider [facility] Ayan Clayton MD Primary Care Provider [phone] Encounter Details Date Type Department Care Team Description 09/05/2016 Business Doc Medical Records [address] [place] [address] Abstract, Provider Social History Tobacco Use Types [...] on filedocumented in this encounter Care Teams Group Activities Aide Relationship Specialty Start Date End Date Victor Manuel Gonzales MD PCP - General Internal Medicine 07/22/16 10/19/16 Daniel Mota MD PCP - General Internal Medicine 10/20/16 09/23/19 Ayan Clayton MD [address] [place] [address] PCP - General Internal Medicine 09/24/19 documented as of this encounter
--- OUTSIDE RECORDS SUMMARY | 2024-04-26 10:16 | XMS_ITS | Encounter Summary ---
Author Organization [facility] Address [address] [place] [address] Care Team Providers Care Vending Machine Mechanic Name Role Phone Daniel Mota MD Primary Care Provider Unavail [facility] Ayan [place] MD Primary Care Provider [phone] Encounter Details Date Type Department Care Team Description 03/03/2017 Die Storage Worker Report Medical Records [address] [place] [address] Lida Renae PA-C [address] [place] [phone] Social History Tobacco Use Types Packs/Day Years [...] on filedocumented in this encounter Care Teams Vending Machine Mechanic Relationship Specialty Start Date End Date Daniel Mota MD PCP - General Internal Medicine 10/20/16 09/23/19 Ayan [place] MD [address] [place] [address] PCP - General Internal Medicine 09/24/19 documented as of this encounter
--- OUTSIDE RECORDS SUMMARY | 2024-04-26 10:16 | XMS_ITS | Encounter Summary ---
Author Organization [facility] Address [address] [place] [address] Care Team Providers Care Dishroom Attendant Name Role Phone Daniel Mota MD Primary Care Provider Unavail able Ayan [place] MD Primary Care Provider Encounter Details Date Type Department Care Team Description 01/26/2017 Armored Machine Operator Report Medical Records [address] [place] [id number] Betty Bach MD [address] [place] [address] [address] [place] [address] Social History Tobacco Use Types Packs/Day Years [...] on filedocumented in this encounter Care Teams Dishroom Attendant Relationship Specialty Start Date End Date Daniel Mota MD PCP - General Internal Medicine 10/20/16 09/23/19 Ayan [place] MD [address] [place], [place] [phone] PCP - General Internal Medicine 09/24/19 documented as of this encounter
--- OUTSIDE RECORDS SUMMARY | 2024-04-26 10:16 | XMS_ITS | Encounter Summary ---
Author Organization [facility] Address [address] [place] [address] Care Team Providers Care Case Assistant Name Role Phone Victor Manuel Gonzales MD Primary Care Provider Daniel Longoria MD Primary Care Provider [facility] Ayan [place] MD Primary Care Provider Encounter Details Date Type Department Care Team Description 09/09/2016 Business Doc Medical Records [address] [place] [address] Abstract, Provider Social History Tobacco Use Types [...] on filedocumented in this encounter Care Teams Case Assistant Relationship Specialty Start Date End Date Victor Manuel Gonzales MD PCP - General Internal Medicine 07/22/16 10/19/16 Daniel Mota MD PCP - General Internal Medicine 10/20/16 09/23/19 Ayan [place] MD [address] [place] [address] PCP - General Internal Medicine 09/24/19 documented as of this encounter
--- OUTSIDE RECORDS SUMMARY | 2024-04-26 10:16 | XMS_ITS | Encounter Summary ---
Author Organization [facility] Address [address] [place] [address] Care Team Providers Care Serging Machine Operator Automatic Name Role Phone Ayan [place] MD Primary Care Provider [phone] Encounter Details Date Type Department Care Team Description 07/09/2020 Ground Wood Supervisor Report Medical Records [address] [place] [address] Skylar Hanna DPM Social History Tobacco Use [...] on filedocumented in this encounter Care Teams Serging Machine Operator Automatic Relationship Specialty Start Date End Date Ayan [place] MD [address] [place], [place] [id number] PCP - General Internal Medicine 09/24/19 documented as of this encounter
--- OUTSIDE RECORDS SUMMARY | 2024-04-26 10:16 | XMS_ITS | Encounter Summary ---
Author Organization [facility] Address [address] [place] [address] Care Team Providers Care Cable Repairer Name Role Phone Daniel Mota MD Primary Care Provider Unavail Victor Manuel Yu MD Primary Care Provider Unava ilable Daniel Mota MD Primary Care Provider Unavail Ayan Pulliam MD Primary Care Provider [phone] Victor Manuel Gonzales MD Primary Care Provider Unava ilmaximino Encounter Details Date Type Department Care Team Description 12/27/2010 Zinc Plate Grainer Report Medical Records [address] [place] [address] Elgin Russell MD Social History Tobacco Use [...] on filedocumented in this encounter Care Teams Cable Repairer Relationship Specialty Start Date End Date Daniel Mota MD PCP - General 07/27/1994 12/22/15 Victor Manuel Gonzales MD PCP - General Internal Medicine 07/22/16 10/19/16 Daniel Mota MD PCP - General Internal Medicine 10/20/16 09/23/19 Ayan [place] MD [address] [place] [address] PCP - General Internal Medicine 09/24/19 Victor Manuel Gonzales MD PCP - General 12/23/15 07/21/16 documented as of this encounter
--- OUTSIDE RECORDS SUMMARY | 2024-04-26 10:16 | XMS_ITS | Encounter Summary ---
Author Organization [facility] Address [address] [place] [address] Care Team Providers Care Inspector Machined Parts Name Role Phone Daniel Mota MD Primary Care Provider Unavail able Ayan [place] MD Primary Care Provider [phone] Encounter Details Date Type Department Care Team Description 01/26/2017 Salvage Worker Report Medical Records [address] [place] [address] Abstract, Provider Social History Tobacco Use Types [...] on filedocumented in this encounter Care Teams Inspector Machined Parts Relationship Specialty Start Date End Date Daniel Mota MD PCP - General Internal Medicine 10/20/16 09/23/19 Ayan [place] MD [address] [place] [id number] PCP - General Internal Medicine 09/24/19 documented as of this encounter
--- OUTSIDE RECORDS SUMMARY | 2024-04-26 10:16 | XMS_ITS | Encounter Summary ---
Author Organization [facility] Address [address] [place] [address] Care Team Providers Care Audio Operator Name Role Phone Ayan [place] MD Primary Care Provider [phone] Encounter Details Date Type Department Care Team Description 07/24/2020 Rn Immunology Report Medical Records [address] [place] [phone] [facility] Social History Tobacco Use Types Packs/Day [...] on filedocumented in this encounter Care Teams Audio Operator Relationship Specialty Start Date End Date Ayan [place] MD [address] [place], [place] [phone] PCP - General Internal Medicine 09/24/19 documented as of this encounter
--- OUTSIDE RECORDS SUMMARY | 2024-04-26 10:16 | XMS_ITS | Encounter Summary ---
Author Organization [facility] Address [address] [place] [address] Care Team Providers Care Assistant To The Dean Name Role Phone Ayan [place] MD Primary Care Provider [phone] Encounter Details Date Type Department Care Team Description 06/04/2020 [facility] Medical Records [address] [place] [address] Abstract, Provider Social History Tobacco Use Types [...] filedocumented in this encounter Care Teams Assistant To The Dean Relationship Specialty Start Date End Date Ayan [place] MD [address] [place], [place] [phone] PCP - General Internal Medicine 09/24/19 documented as of this encounter
--- OUTSIDE RECORDS SUMMARY | 2024-04-26 10:16 | XMS_ITS | Encounter Summary ---
Author Organization [facility] Address [address] [place] [address] Care Team Providers Care Side Door Man Name Role Phone Daniel M[place] MD Primary Care Provider Unavail Victor Manuel Yu MD Primary Care Provider Unava ilable Daniel Mota MD Primary Care Provider Unavail Ayan Pulliam MD Primary Care Provider [phone] Victor Manuel Gonzales MD Primary Care Provider Unava ilmaximino Encounter Details Date Type Department Care Team Description 05/04/2010 Cane Flume Feeding Machine Operator Report Medical Records [address] [place] [address] Adolfo Hill MD Social History Tobacco Use Types Packs/Day Years Used Date Smoking Tobacco: Former Cigarettes 1.5 Q uit: 03/27/2007 Alcohol Use Standard Drinks/Week Comments No 0 [...] on filedocumented in this encounter Care Teams Side Door Man Relationship Specialty Start Date End Date Daniel [place] MD PCP - General 07/27/1994 12/22/15 Victor Manuel Gonzales MD PCP - General Internal Medicine 07/22/16 10/19/16 Daniel Mota MD PCP - General Internal Medicine 10/20/16 09/23/19 Ayan [place] MD [address] [place] [address] PCP - General Internal Medicine 09/24/19 Victor Manuel Gonzales MD PCP - General 12/23/15 07/21/16 documented as of this encounter
--- OUTSIDE RECORDS SUMMARY | 2024-04-26 10:16 | XMS_ITS | Encounter Summary ---
Author Organization [facility] Address [address] [place] [address] Care Team Providers Care Draw Furnace Tender Name Role Phone Daniel Mota MD Primary Care Provider Unavail Victor Manuel Yu MD Primary Care Provider Unava ilable Daniel Mota MD Primary Care Provider Unavail Ayan Pulliam MD Primary Care Provider [phone] Victor Manuel Gonzales MD Primary Care Provider Unava ilable Encounter Details Date Type Department Care Team Description 01/14/2011 Eye Mill Supervisor Report Medical Records [address] [place] [address] Mathew Liu Social History Tobacco Use Types [...] on filedocumented in this encounter Care Teams Draw Furnace Tender Relationship Specialty Start Date End Date Daniel M[place] MD PCP - General 07/27/1994 12/22/15 Victor Manuel Gonzales MD PCP - General Internal Medicine 07/22/16 10/19/16 Daniel Mota MD PCP - General Internal Medicine 10/20/16 09/23/19 Ayan [place] MD [address] [place] [address] PCP - General Internal Medicine 09/24/19 Victor Manuel Gonzales MD PCP - General 12/23/15 07/21/16 documented as of this encounter
--- OUTSIDE RECORDS SUMMARY | 2024-04-26 10:16 | XMS_ITS | Encounter Summary ---
Author Organization [facility] Address [address] [place] [address] Care Team Providers Care Standpipe Tender Name Role Phone Daniel Mota MD Primary Care Provider Ayan Rubalcava MD Primary Care Provider [phone] Encounter Details Date Type Department Care Team Description 04/24/2017 Pt. Non Urgent Medic al Question Adult Medicine [address] [address] Daniel [place] MD Social History Tobacco Use [...] as of this encounter Progress Notes * Jorge A Álvarez C.M.A. - 04/25/2017 8:45 AM ESTFrom: Yanet King To: Daniel Mota MD Sent: 04/24/2017 9:16 PM EST Subject: Waiver form for medical reason On or about the 11 of April I brought in a medical form for you to fill out for a waiver of electricity for medical reasons. As of this date I have heard nothing stating the form was filled out. If you would please look into this matter as soon as possible I would appreciate it. Thanking you in advance for your prompt attention in this matter Sincerely Yanet King documented in this encounter Plan of Treatment Not on file documented as of this encounter Visit Diagnoses Not on filedocumented in this encounter Care Teams Standpipe Tender Relationship Specialty Start Date End Date Daniel Mota MD PCP - General Internal Medicine 10/20/16 09/23/19 Ayan [place] MD [address] [place] [address] PCP - General Internal Medicine 09/24/19 documented as of this encounter
--- OUTSIDE RECORDS SUMMARY | 2024-04-26 10:16 | XMS_ITS | Encounter Summary ---
Author Organization [facility] Address [address] [place] [address] Care Team Providers Care Leather Etcher Name Role Phone Ayan [place] MD Primary Care Provider [phone] Reason for Visit * Reason Onset Date Comments Bariatric Weight Check 07/29/2020 Encounter Details Date Type Department Care Team Description 07/29/2020 Telephone General Surgery - [address] [place] [address] Liana Churchill, ,RDN,LDN Bariatric Weight Check Social History Tobacco Use Types Packs/Day Years [...] encounter Miscellaneous Notes * Telephone Encounter - Carmina Chavez - 07/29/2020 9:58 AM EDT Patient weighed in at 196 lbs. documented in this encounter Plan of Treatment Not on file documented as of this encounter Visit Diagnoses Not on filedocumented in this encounter Care Teams Leather Etcher Relationship Specialty Start Date End Date Ayan [place] MD [address] [place] [address] PCP - General Internal Medicine 09/24/19 documented as of this encounter
--- OUTSIDE RECORDS SUMMARY | 2024-04-26 10:16 | XMS_ITS | Encounter Summary ---
Author Organization [facility] Address [address] [place] [address] Care Team Providers Care Theatre Professor Name Role Phone Ayan [place] MD Primary Care Provider [phone] Encounter Details Date Type Department Care Team Description 04/29/2020 Manager Investigations Report Medical Records [address] [place] [address] Abstract, Provider Social History Tobacco Use Types [...] on filedocumented in this encounter Care Teams Theatre Professor Relationship Specialty Start Date End Date Ayan [place] MD [address] [place] [address] [id number] PCP - General Internal Medicine 09/24/19 documented as of this encounter
--- OUTSIDE RECORDS SUMMARY | 2024-04-26 10:16 | XMS_ITS | Encounter Summary ---
Author Organization [facility] Address [address] [place] [address] Care Team Providers Care Community Development Coordinator Name Role Phone Daniel Mota MD Primary Care Provider Ayan Rubalcava MD Primary Care Provider [phone] Reason for Visit * Reason Onset Date Comments TEST RESULTS 01/04/2017 Encounter Details Date Type Department Care Team Description 01/04/2017 Telephone Adult Medicine [address] [address] Daniel Mota MD TEST RESULTS Social History [...] - 0.80 mg/dL 01/09/2017 12:25 PM EDT [facility] 01/09/2017 11:0 4 AM EDT 01/09/2017 11:04 AM EDT Daniel Mota MD LAB Performing Organization Address [facility] [address]/[facility] Co de Phone Number [address] * RBC SEDIMENTATION RATE, NON-AUTO (01/09/2017 11:04 AM EDT) ESR 22 0 - 30 mm/hr 01/09/2017 1:05 PM EDT [facility] 01/09/2017 11:0 4 AM EDT 01/09/2017 11:04 AM EDT Daniel M[place] MD LAB Performing Organization Address [facility] [address]/[facility] de Phone Number [address] * (ABNORMAL) CBC (AUTO DIFF PLATELET) (01/09/2017 11:04 AM EDT) WBC 8.8 4.8 - 10.8 x10-3 01/09/2017 11:20 AM EDT [facility] RBC 5.0(H) 3.8 - 4.8 x10-6 01/09/2017 11:20 AM EDT [facility] HGB 14.9 11.5 - 16.0 g/dl 01/09/2017 11:20 AM EDT [facility] HCT 45.3 35 - 47 % 01/09/2017 11:20 AM EDT [facility] MCV 90.4 79 - 98 fl 01/09/2017 11:20 AM EDT [facility] MCH 29.7 27 - 32 pg 01/09/2017 11:20 AM EDT [facility] MCHC 32.9 32 - 37 g/dl 01/09/2017 11:20 AM EDT [facility] RDW 13.6 11 - 15 % 01/09/2017 11:20 AM EDT [facility] PLT COUNT 248 130 - 400 x10-3 01/09/2017 11:20 AM EDT [facility] MEAN PLATELET VOLUME 10.7 7 - 11 fl 01/09/2017 11:20 AM EDT [facility] NEUT % 62.8 41 - 85 % 01/09/2017 11:20 AM EDT [facility] LYMPH % 19.9 15 - 48 % 01/09/2017 11:20 AM EDT [facility] MONO % 7.2 0 - 12 % 01/09/2017 11:20 AM EDT [facility] EOS % 9.0(H) 0 - 5 % 01/09/2017 11:20 AM EDT [facility] BASO % 1.1 0 - 2 % 01/09/2017 11:20 AM EDT [facility] 01/09/2017 11:0 4 AM EDT 01/09/2017 11:04 AM EDT Daniel M[place] MD LAB Performing Organization Address City/State/[facility] Co de Phone Number [facility] [address] [facility] * (ABNORMAL) BASIC METABOLIC PANEL (01/09/2017 11:04 AM EDT) [facility] GLUCOSE 123(H) 70 - 100 mg/dL 01/09/2017 12:25 PM EDT [facility] Comment: Reference range applicable to fasting specimens only Based on recommendations from the ADA and AACE, the fasting glucose reference range has been changed to 70-100 mg/dL. ??This change is effective August 10, 2009 BUN 11 5 - 25 mg/dL 01/09/2017 12:25 PM EDT [facility] CREAT 0.8 0.7 - 1.5 mg/dL 01/09/2017 12:25 PM EDT [facility] GFR > 60 >60 01/09/2017 12:25 PM EDT [facility] Comment: If patient is -Citizen Of [place], multiply result by 1.21 Chronic Kidney Disease: [...] Daniel M[place] MD LAB Performing Organization Address City/State/[facility] Co de Phone Number [facility] [address] [facility] documented in this encounter Visit Diagnoses Diagnosis Neck pain- Primary Cervicalgia documented in this encounter Care Teams Community Development Coordinator Relationship Specialty Start Date End Date Daniel Mota MD PCP - General Internal Medicine 10/20/16 09/23/19 Ayan [place] MD [address] [place] [address] PCP - General Internal Medicine 09/24/19 documented as of this encounter
--- OUTSIDE RECORDS SUMMARY | 2024-04-26 10:16 | XMS_ITS | Encounter Summary ---
Author Organization [facility] Address [address] [place] [address] Care Team Providers Care Heeler Machine Name Role Phone Ayan [place] MD Primary Care Provider [phone] Encounter Details Date Type Department Care Team Description 06/22/2020 Bilingual Spanish Inbound Sales Report Medical Records [address] [place] [address] Abstract, Provider Social History Tobacco Use Types [...] on filedocumented in this encounter Care Teams Heeler Machine Relationship Specialty Start Date End Date Ayan [place] MD [address] [place], [place] [phone] PCP - General Internal Medicine 09/24/19 documented as of this encounter
--- OUTSIDE RECORDS SUMMARY | 2024-04-26 10:16 | XMS_ITS | Encounter Summary ---
Author Organization [facility] Address [address] [place] [address] Care Team Providers Care Wrapping Machine Helper Name Role Phone Ayan [place] MD Primary Care Provider [phone] Encounter Details Date Type Department Care Team Description 06/01/2020 Rn Enterostomal Report Medical Records [address] [place] [address] Abstract, Provider Social History Tobacco Use Types [...] on filedocumented in this encounter Care Teams Wrapping Machine Helper Relationship Specialty Start Date End Date Ayan [place] MD [address] [place], [place] [phone] PCP - General Internal Medicine 09/24/19 documented as of this encounter
--- OUTSIDE RECORDS SUMMARY | 2024-04-26 10:16 | XMS_ITS | Encounter Summary ---
Author Organization [facility] Address [address] [place] [address] Care Team Providers Care Electron Beam Photo Mask Maker Name Role Phone Daniel Mota MD Primary Care Provider Unavail [facility] Ayan [place] MD Primary Care Provider [phone] Encounter Details Date Type Department Care Team Description 03/03/2017 Chucker Report Medical Records [address] [place] [address] Lida eRnae PA-C [address] [place] [phone] Social History Tobacco Use Types Packs/Day [...] on filedocumented in this encounter Care Teams Electron Beam Photo Mask Maker Relationship Specialty Start Date End Date Daniel Mota MD PCP - General Internal Medicine 10/20/16 09/23/19 Ayan [place] MD [address] [place] [address] PCP - General Internal Medicine 09/24/19 documented as of this encounter
--- OUTSIDE RECORDS SUMMARY | 2024-04-26 10:17 | XMS_ITS | Encounter Summary ---
Author Organization [facility] Address [address] [place] [address] Care Team Providers Care Crab Backer Name Role Phone Daniel Mota MD Primary Care Provider Unavail able Ayan [place] MD Primary Care Provider [phone] Encounter Details Date Type Department Care Team Description 04/16/2018 Sas Architect Report Medical Records [address] [place] [address] Jake Limon MD Social History Tobacco Use [...] on filedocumented in this encounter Care Teams Crab Backer Relationship Specialty Start Date End Date Daniel Mota MD PCP - General Internal Medicine 10/20/16 09/23/19 Ayan [place] MD [address] [place], [place] [phone] PCP - General Internal Medicine 09/24/19 documented as of this encounter
--- OUTSIDE RECORDS SUMMARY | 2024-04-26 10:17 | XMS_ITS | Encounter Summary ---
Author Organization [facility] Address [address] [place] [address] Care Team Providers Care Blending Kettle Tender Name Role Phone Ayan [place] MD Primary Care Provider [phone] Encounter Details Date Type Department Care Team Description 11/20/2020 Hospital Medical Records [address] [place] [address] Rell Leavitt Social History Tobacco Use Types [...] on filedocumented in this encounter Care Teams Blending Kettle Tender Relationship Specialty Start Date End Date Ayan [place] MD [address] [place], [place] [phone] PCP - General Internal Medicine 09/24/19 documented as of this encounter
--- OUTSIDE RECORDS SUMMARY | 2024-04-26 10:17 | XMS_ITS | Encounter Summary ---
Author Organization [facility] Address [address] [place] [address] Care Team Providers Care Electric Meter Installer Helper Name Role Phone Ayan [place] MD Primary Care Provider [phone] Encounter Details Date Type Department Care Team Description 03/17/2021 Cyber Crime Investigator Report Medical Records [address] [place] [address] [facility] Social History Tobacco Use Types Packs/Day Years [...] have Coronavirus / COVID-19? No / Unsure 03/16/2021 8:45 AM EST documented as of this encounter Plan of Treatment Not on file documented as of this encounter Visit Diagnoses Not on filedocumented in this encounter Care Teams Electric Meter Installer Helper Relationship Specialty Start Date End Date Ayan [place] MD [address] [place], [place] [phone] PCP - General Internal Medicine 09/24/19 documented as of this encounter
--- OUTSIDE RECORDS SUMMARY | 2024-04-26 10:17 | XMS_ITS | Encounter Summary ---
Author Organization [facility] Address [address] [place] [address] Care Team Providers Care Branch Or Department Chief Librarian Name Role Phone Daniel Mota MD Primary Care Provider Unavail able Ayan [place] MD Primary Care Provider [phone] Encounter Details Date Type Department Care Team Description 03/22/2018 Release of Information Medical Records [address] [place] [address] Abstract, Provider Social History Tobacco Use Types [...] filedocumented in this encounter Care Teams Branch Or Department Chief Librarian Relationship Specialty Start Date End Date Daniel oMta MD PCP - General Internal Medicine 10/20/16 09/23/19 Ayan [place] MD [address] [place] [address] PCP - General Internal Medicine 09/24/19 documented as of this encounter
--- OUTSIDE RECORDS SUMMARY | 2024-04-26 10:17 | XMS_ITS | Encounter Summary ---
Author Organization [facility] Address [address] [place] [address] Care Team Providers Care Security Alarm Technician Name Role Phone Daniel Mota MD Primary Care Provider Unavail Victor Manuel Yu MD Primary Care Provider Unava ilable Daniel Mota MD Primary Care Provider Unavail Ayan Pulliam MD Primary Care Provider [phone] Victor Manuel Gonzales MD Primary Care Provider Unava ilmaximino Encounter Details Date Type Department Care Team Description 05/02/2011 Laborer Pipelines Report Medical Records [address] [place] [address] Elgin Russell MD Social History Tobacco Use [...] on filedocumented in this encounter Care Teams Security Alarm Technician Relationship Specialty Start Date End Date Daniel [place] MD PCP - General 07/27/1994 12/22/15 Victor Manuel Gonzales MD PCP - General Internal Medicine 07/22/16 10/19/16 Daniel Mota MD PCP - General Internal Medicine 10/20/16 09/23/19 Ayan [place] MD [address] [place] [address] PCP - General Internal Medicine 09/24/19 Victor Manuel Gonzales MD PCP - General 12/23/15 07/21/16 documented as of this encounter
--- OUTSIDE RECORDS SUMMARY | 2024-04-26 10:17 | XMS_ITS | Encounter Summary ---
Author Organization [facility] Address [address] [place] [address] Care Team Providers Care Career Agent Name Role Phone Ayan Clayton MD Primary Care Provider [phone] Encounter Details Date Type Department Care Team Description 02/25/2021 Hospital Medical Records [address] [place] [address] Rell Leavitt Social History Tobacco Use Types [...] on filedocumented in this encounter Care Teams Career Agent Relationship Specialty Start Date End Date Ayan Clayton MD [address] [place], [place] [phone] PCP - General Internal Medicine 09/24/19 documented as of this encounter
--- OUTSIDE RECORDS SUMMARY | 2024-04-26 10:17 | XMS_ITS | Encounter Summary ---
Author Organization [facility] Address [address] [place] [address] Care Team Providers Care Scallop Binder Name Role Phone Daniel Mota MD Primary Care Provider Unavail able Ayan Clayton MD Primary Care Provider [phone] Encounter Details Date Type Department Care Team Description 06/09/2017 Global Account Manager Report Medical Records [address] [place] [id number] Betty Bach MD [address] [place] [address] [address] [place] [address] Social History Tobacco Use Types Packs/Day Years [...] on filedocumented in this encounter Care Teams Scallop Binder Relationship Specialty Start Date End Date Daniel Mota MD PCP - General Internal Medicine 10/20/16 09/23/19 Aayn Clayton MD [address] [place], [place] [phone] PCP - General Internal Medicine 09/24/19 documented as of this encounter
--- OUTSIDE RECORDS SUMMARY | 2024-04-26 10:17 | XMS_ITS | Clinical Summary ---
Author Organization [facility] Address [address] [place] [address] Phone Care Team Providers Care Floor Trader Name Role Phone Unavailable Primary Care Provider [...] salmon (MIACALCIN) 200 unit/actuation nasal spray 1 Franklin by Alternating Nares route daily. 06/29/2023 Active [...] Care Team Description 04/04/2024 Telephone Adult Medicine [facility] [address] [place] [address] Ayan Clayton MD Pre-op Exam 03/15/2024 Telephone Lung Screening Program - [place] 299 [facility] [address] [place] [phone] Jyoti Mackay [place] Appointment (No longer qualifies for screening) 02/20/2024 10:45 AM EST Office Visit Bariatric Surgery - [place] 175 [facility] [address] [place] [phone] Torrey Moreno MD Intestinal malabsorption following gastrectomy [...] Care Team (Late st Contact Info) Description 06/12/2024 8:50 AM EDT Office Visit Pulmonolgy - [place] 175 [facility] [address] [place] [phone] Jil Freeman NP 175 [facility] Kevin [address] [place] [address] 08/30/2024 10:00 AM EDT Appointment Radiology Department - [address] [address] 12/05/2024 3:45 PM EDT Office Visit Nephrology [facility] [address] [place] [address] Vega Navarro MD [address] [facility] [address] [place] [phone] 02/04/2025 9:00 AM EST Office Visit Bariatric Surgery - [place] [address] [facility] [address] [place] [phone] Torrey Moreno MD 175 [facility] [address] [place] [address] Health Maintenance Due Date Last Done Comments [...] gynecological examination (general) (routine) without abnormal findings HM HPV Routine 04/28/2021 COLONOSCOPY Routine 02/16/2021 HEPATITIS [...] * Urine Albumin Creatinine Ratio (06/29/2023) Pathologist [facility] Urine Albumin Creatinine Ratio ABSTRACTED Historical Provider [facility] Annual BMP Blood Test (06/29/2023) [facility] Annual BMP Blood Test ABSTRACTED Historical Provider [facility] E * Hemoglobin A1c (06/29/2023) [facility] Hemoglobin A1C 5.2 6.5 % Blood Venous blood specimen / Unknown Historical Provider LAB BLOOD ORDERAB LES * Lipid panel (06/29/2023) [facility] LDL/HDL Ratio 2 0 - 4 Triglycerides 142 0 - 150 mg/dL Cholesterol 172 0 - 200 mg/dL HDL 79 40 mg/dL LDL Cholesterol 65 0 - 100 mg/dL Blood Venous blood specimen / Unknown Historical Provider LAB BLOOD ORDERAB LES * Diabetes Foot Exam (04/10/2023) [facility] Diabetes: Annual Foot Exam ABSTRACTED Historical Provider [...] bone mineral density by WHO criteria. [facility] Department of Internal Medicine recommends using National [...] alternative screening schedule based on albert Kincaid., [facility] April 14, 2011 for patients with osteopenia [...] bone mineral density by WHO criteria. [facility] Department of Internal Medicine recommendsusing National Osteoporosis [...] RES * Cervical Cancer Screening: HPV (04/28/2021) [facility] Cervical Cancer Screening: HPV negative,a bstracted Historical Provider [facility] * Colonoscopy (02/16/2021) [facility] Colonoscopy no interpretation , abstracted Anatomical Region Laterality Modality Other Historical Provider [facility] * Hepatitis C Screening (12/07/2020) [facility] Hepatitis C Screening ABSTRACTED Historical Provider [facility] from Last 3 Months or Most Recently Relevant to Health Maintenance Advance Directives Documents on File Type Date Recorded Patient Sizing Sprayer Expl anation Health Care Decision (hx) 05/19/2014 [...]
--- OUTSIDE RECORDS SUMMARY | 2024-04-26 10:17 | XMS_ITS | Encounter Summary ---
Author Organization [facility] Address [address] [place] [address] Care Team Providers Care Electronic Sensing Equipment Assembler Name Role Phone Ayan Clayton MD Primary Care Provider Reason for Visit * Reason Onset Date Comments refill request 02/03/2021 Encounter Details Date Type Department Care Team Description 02/03/2021 Refill Pulmonology - [place] 175 [facility] [address] [place] [phone] Jil Freeman APRN 175 [facility] [address] [place] [phone] refill request Social History Tobacco Use Types [...] encounter Miscellaneous Notes * Telephone Encounter - Verna Macias - 02/03/2021 2:30 PM EST Patient would like script to be: E-PRESCRIBED/FAXED TO PHARMACY WHEN WAS THE PATIENT'S LAST APPOINTMENT WITH THE PRESCRIBING PROVIDER? 02/03/21 Does patient have an upcoming appointment? No. 6 month follow up due back 08/03/21 (THE MEDICATION REQUESTED IS ON THE MED LIST ABOVE) All of the medications requested were on the CURRENT MEDS list Did you check the Pharmacy information above?: YES Patient wants: 30 -day supply Is this a mail order prescription request ? NO Patients current insurance carrier is: [place] / [place] / Product Type: MEDICARE [id number] documented in this encounter Plan of Treatment Not on file documented as of this encounter Visit Diagnoses Diagnosis Post-nasal drainage Unspecified sinusitis (chronic) Centrilobular emphysema (HCC) Other emphysema documented in this encounter Care Teams Electronic Sensing Equipment Assembler Relationship Specialty Start Date End Date Ayan Clayton MD [address] [place] [address] PCP - General Internal Medicine 09/24/19 documented as of this encounter
--- OUTSIDE RECORDS SUMMARY | 2024-04-26 10:17 | XMS_ITS | Encounter Summary ---
Author Organization [facility] Address [address] [place] [address] Care Team Providers Care Metal Furrer Name Role Phone Daniel Mota MD Primary Care Provider [facility] Ayan Pulliam MD Primary Care Provider [phone] Reason for Visit * Reason Onset Date Comments Metal Hardener Feedback 05/12/2017 Cardiac Stress T est Encounter Details Date Type Department Care Team Description 05/12/2017 Telephone Adult Medicine [facility] [address] [place] [address] Daniel Mota MD Metal Hardener Feedback (Cardiac Stress Test) Social History Tobacco [...] to book appointment. Order faxed to [facility]. Office books with patient and will notify us with appointment. documented in this encounter Plan of Treatment Not on file documented as of this encounter Visit Diagnoses Not on filedocumented in this encounter Care Teams Metal Furrer Relationship Specialty Start Date End Date Daniel Mota MD PCP - General Internal Medicine 10/20/16 09/23/19 Ayan Clayton MD [address] [place] [address] PCP - General Internal Medicine 09/24/19 documented as of this encounter
--- OUTSIDE RECORDS SUMMARY | 2024-04-26 10:17 | XMS_ITS | Encounter Summary ---
Author Organization [facility] Address [address] [place] [address] Care Team Providers Care Qa Developer Name Role Phone Daniel Mota MD Primary Care Provider Unavail Victor Manuel Yu MD Primary Care Provider Unava ilable Daniel Mota MD Primary Care Provider Unavail Ayan Pulliam MD Primary Care Provider Victor Manuel Gonzales MD Primary Care Provider Unava ilmaximino Encounter Details Date Type Department Care Team Description 11/04/2010 Sorter Upholstery Parts Report Medical Records [address] [place] [address] Elgin Russell MD Social History Tobacco Use [...] on filedocumented in this encounter Care Teams Qa Developer Relationship Specialty Start Date End Date Daniel Mota MD PCP - General 07/27/1994 12/22/15 Victor Manuel Gonzales MD PCP - General Internal Medicine 07/22/16 10/19/16 Daniel Mota MD PCP - General Internal Medicine 10/20/16 09/23/19 Ayan Clayton MD [address] [place] [address] PCP - General Internal Medicine 09/24/19 Victor Manuel Gonzales MD PCP - General 12/23/15 07/21/16 documented as of this encounter
--- OUTSIDE RECORDS SUMMARY | 2024-04-26 10:17 | XMS_ITS | Encounter Summary ---
Author Organization [facility] Address [address] [place] [address] Care Team Providers Care Tangled Yarn Spool Straightener Name Role Phone Ayan Clayton MD Primary Care Provider [phone] Encounter Details Date Type Department Care Team Description 03/03/2021 Section Beamer Report Medical Records [address] [place] [address] Rell Leavitt Social History Tobacco Use Types [...] on filedocumented in this encounter Care Teams Tangled Yarn Spool Straightener Relationship Specialty Start Date End Date Ayan Clayton MD [address] [place], [place] [phone] PCP - General Internal Medicine 09/24/19 documented as of this encounter
--- OUTSIDE RECORDS SUMMARY | 2024-04-26 10:17 | XMS_ITS | Encounter Summary ---
Author Organization [facility] Address [address] [place] [address] Care Team Providers Care Printer Apprentice Name Role Phone Daniel Mota MD Primary Care Provider Unavail Victor Manuel Yu MD Primary Care Provider Unava ilable Daniel Mota MD Primary Care Provider Unavail Ayan Pulliam MD Primary Care Provider [phone] Victor Manuel Gonzales MD Primary Care Provider Unava ilmaximino Encounter Details Date Type Department Care Team Description 07/07/2011 Bowl Turner Report Medical Records [address] [place] [address] Elgin Russell MD Social History Tobacco Use [...] on filedocumented in this encounter Care Teams Printer Apprentice Relationship Specialty Start Date End Date Daniel Mota MD PCP - General 07/27/1994 12/22/15 Victor Manuel Gonzales MD PCP - General Internal Medicine 07/22/16 10/19/16 Daniel Mota MD PCP - General Internal Medicine 10/20/16 09/23/19 Ayan Clayton MD [address] [place] [address] PCP - General Internal Medicine 09/24/19 Victor Manuel Gonzales MD PCP - General 12/23/15 07/21/16 documented as of this encounter
--- OUTSIDE RECORDS SUMMARY | 2024-04-26 10:17 | XMS_ITS | Encounter Summary ---
Author Organization [facility] Address [address] [place] [address] Care Team Providers Care Director Correctional Agency Name Role Phone Ayan Clayton MD Primary Care Provider [phone] Encounter Details Date Type Department Care Team Description 02/15/2021 Orders Only Medical Records [address] [place] [address] Ruth Mitchell MD [address] [place] [address] Social History Tobacco Use Types Packs/Day Years [...] Date/Time Associated Diagnosis Comments OUTSIDE LAB Routine 02/13/2021 documented in this encounter Results * OUTSIDE LAB (02/13/2021) H Favio Mitchell MD LAB documented in this encounter Visit Diagnoses Not on filedocumented in this encounter Care Teams Director Correctional Agency Relationship Specialty Start Date End Date Ayan Clayton MD [address] [place] [address] PCP - General Internal Medicine 09/24/19 documented as of this encounter
--- OUTSIDE RECORDS SUMMARY | 2024-04-26 10:17 | XMS_ITS | Encounter Summary ---
Author Organization [facility] Address [address] [place] [address] Care Team Providers Care Hot Dip Tinning Supervisor Name Role Phone Ayan Clayton MD Primary Care Provider [phone] Encounter Details Date Type Department Care Team Description 03/28/2023 Coconut Candy Maker Report Medical Records [address] [place] [address] Rell Leavitt Social History Tobacco Use Types [...] on filedocumented in this encounter Care Teams Hot Dip Tinning Supervisor Relationship Specialty Start Date End Date Ayan Clayton MD [address] [place], [place] [phone] PCP - General Internal Medicine 09/24/19 documented as of this encounter
--- OUTSIDE RECORDS SUMMARY | 2024-04-26 10:17 | XMS_ITS | Encounter Summary ---
Author Organization [facility] Address [address] [place] [address] Care Team Providers Care Bias Binding Folder Name Role Phone Ayan Clayton MD Primary Care Provider [phone] Reason for Visit * Reason Onset Date Comments Pre-op Exam 04/04/2024 Encounter Details Date Type Department Care Team (Late st Contact Info) Description 04/04/2024 Telephone Adult Medicine [address] [phone] Ayan Clayton MD [address] [place] [address] Pre-op Exam Social History Tobacco Use Types [...] Pre-Op appt due to pt transferred to [facility] Dr. Jake Womack for new pcp already. Pls advise. Tel #: [phone]. documented in this encounter Plan of Treatment Upcoming Encounters Date Type Department Care Team (Late st Contact Info) Description 06/12/2024 8:50 AM EDT Office Visit Pulmonolgy - [place] [address] [phone] Jil Freeman NP [address] [address] 08/30/2024 10:00 AM EDT Appointment Radiology Department - [address] [address] 12/05/2024 3:45 PM EDT Office Visit Nephrology - [address] [phone] Vega Navarro MD [address] [phone] 02/04/2025 9:00 AM EST Office Visit Bariatric Surgery - [place] [address] [phone] Torrey Moreno MD [address] [address] documented as of this encounter Visit Diagnoses Not on filedocumented in this encounter Care Teams Bias Binding Folder Relationship Specialty Start Date End Date Ayan Clayton MD [address] [place] [address] PCP - General Internal Medicine 02/13/24 04/04/24 documented as of this encounter
--- OUTSIDE RECORDS SUMMARY | 2024-04-26 10:17 | XMS_ITS | Encounter Summary ---
Author Organization [facility] Address [address] [place] [address] Care Team Providers Care Decorating Supervisor Name Role Phone Ayan Clayton MD Primary Care Provider [phone] Encounter Details Date Type Department Care Team Description 02/27/2023 Embedded Case Manager Report Medical Records [address] [place] [address] Fernie Ruiz MD Social History Tobacco Use Types Packs/Day [...] on filedocumented in this encounter Care Teams Decorating Supervisor Relationship Specialty Start Date End Date Ayan Clayton MD [address] [place] [address] PCP - General Internal Medicine 09/24/19 documented as of this encounter
--- OUTSIDE RECORDS SUMMARY | 2024-04-26 10:17 | XMS_ITS | Encounter Summary ---
Author Organization [facility] Address [address] [place] [address] Care Team Providers Care Analysis Or Research Safety Inspector Name Role Phone Ayan Clayton MD Primary Care Provider [phone] Reason for Visit * Reason Onset Date Comments preop exam 07/27/2022 Encounter Details Date Type Department Care Team Description 07/27/2022 Telephone Adult Medicine [address] [phone] Ayan Clayton MD [address] [place] [phone] preop exam Social History Tobacco Use Types [...] Fernie Toth Office phone number of surgeon: [phone] Fax # for surgeons office: [phone] (Required) Where is surgery being performed? [facility] Diagnosis/problem for surgery: Left total hip arthoplastry Is an EKG required for the pre-op workup? YES (labs) PCP: Ayan Clayton Did you verify that the insurance below is correct? YES Patients insurance: Payor: [employer] / Plan: PPO $0 [place] MEDICARE [id number] / Product Type: PPO [id number] documented in this encounter Plan of Treatment Not on file documented as of this encounter Visit Diagnoses Not on filedocumented in this encounter Care Teams Analysis Or Research Safety Inspector Relationship Specialty Start Date End Date Ayan Clayton MD [address] [place] [address] PCP - General Internal Medicine 09/24/19 documented as of this encounter
--- OUTSIDE RECORDS SUMMARY | 2024-04-26 10:17 | XMS_ITS | Encounter Summary ---
Author Organization [facility] Address [address] [place] [address] Care Team Providers Care Deskidding Machine Operator Name Role Phone Ayan Clayton MD Primary Care Provider [phone] Encounter Details Date Type Department Care Team Description 12/05/2020 Director Of Graduate Admissions Report Medical Records [address] [place], [place] [phone] [place] [address] [place] [phone] Social History Tobacco Use Types Packs/Day Years [...] have Coronavirus / COVID-19? No / Unsure 12/07/2020 3:16 PM EDT documented as of this encounter Plan of Treatment Not on file documented as of this encounter Visit Diagnoses Not on filedocumented in this encounter Care Teams Deskidding Machine Operator Relationship Specialty Start Date End Date Ayan Clayton MD [address] [place] [address] PCP - General Internal Medicine 09/24/19 documented as of this encounter
--- OUTSIDE RECORDS SUMMARY | 2024-04-26 10:17 | XMS_ITS | Encounter Summary ---
Author Organization [facility] Address [address] [place] [address] Care Team Providers Care Manager Name Role Phone Ayan Clayton MD Primary Care Provider [phone] Encounter Details Date Type Department Care Team Description 04/08/2021 Transfer Records Medical Records [address] [place] [address] Jake Womack MD Social History Tobacco Use Types Packs/Day [...] have Coronavirus / COVID-19? No / Unsure 04/09/2021 8:48 AM EST documented as of this encounter Plan of Treatment Not on file documented as of this encounter Visit Diagnoses Not on filedocumented in this encounter Care Teams Manager Relationship Specialty Start Date End Date Ayan Clayton MD [address] [place], [place] [phone] PCP - General Internal Medicine 09/24/19 documented as of this encounter
--- OUTSIDE RECORDS SUMMARY | 2024-04-26 10:18 | XMS_ITS | Encounter Summary ---
Author Organization [facility] Address [address] [place] [address] Care Team Providers Care Trial Court Judge Name Role Phone Ayan Clayton MD Primary Care Provider Reason for Visit * Reason Comments E-prescribe Rx Request Encounter Details Date Type Department Care Team Description 08/28/2022 Refill Gastroenterology - [place] 175 [facility] [address] [place] [address] Jerrod Joe PA-C E-prescribe Rx [...] on filedocumented in this encounter Care Teams Trial Court Judge Relationship Specialty Start Date End Date Ayan Clayton MD [address] [place] [address] PCP - General Internal Medicine 09/24/19 documented as of this encounter
--- OUTSIDE RECORDS SUMMARY | 2024-04-26 10:18 | XMS_ITS | Encounter Summary ---
Author Organization [facility] Address [address] [place] [address] Care Team Providers Care Rubber Goods Assembler Name Role Phone Ayan Clayton MD Primary Care Provider [phone] Encounter Details Date Type Department Care Team Description 10/21/2022 Orders Only [facility] Lung Screening Program [place] [address] [facility] [address] [place] [phone] Frank Hampton MD 299 [facility] [address] [place] [address] History of tobacco use, presenting hazards to [...] health documented in this encounter Care Teams Rubber Goods Assembler Relationship Specialty Start Date End Date Ayan Clayton MD [address] [place] [address] PCP - General Internal Medicine 09/24/19 documented as of this encounter
--- OUTSIDE RECORDS SUMMARY | 2024-04-26 10:18 | XMS_ITS | Encounter Summary ---
Author Organization [facility] Address [address] [place] [address] Care Team Providers Care Inter Com Servicer Name Role Phone Ayan Clayton MD Primary Care Provider [phone] Encounter Details Date Type Department Care Team Description 03/08/2023 Director Behavioral Health Report Medical Records [address] [place] [address] Blu Us I., PH.D Social History Tobacco [...] on filedocumented in this encounter Care Teams Inter Com Servicer Relationship Specialty Start Date End Date Ayan Clayton MD [address] [place] [address] PCP - General Internal Medicine 09/24/19 documented as of this encounter
== END 2024-04-25 09:40 | disposition home or self-care (01) ==
LOC: HO.HOSX 09:39
PROVIDERS: Visit Provider Physician Assistant
DX: M25.551 Pain in right hip (principal); M16.11 Unilateral primary osteoarthritis, right hip
CPT/HCPCS: 73502; 99212

== ENCOUNTER 2024-04-30 05:51 | Day surgery (SDC) | payer OTHER, SELFPAY ==
[2024-04-03 09:25] VITALS: BP 176/77; PULSE 77; RESP 16; O2SAT 98; BMI 25.6
[2024-04-03 11:38] LABS: MRSA Nasal PCR POSITIVE (Negative); SA Nasal PCR POSITIVE (Negative)
[2024-04-25 10:55] LABS: Estimated Average Glucose 126 mg/dL; Hemoglobin A1C 111.6724 umol/L; Total Hemoglobin (HGBA1C) 2659.1867 umol/L
[2024-04-30] VITALS (21 sets, daily range): BP systolic 110–203; BP diastolic 51–110; PULSE 64–118; RESP 16–22; TEMP 36–37.2; O2SAT 93–100; BMI 25.5
--- NOTE | ~2024-04-30 | XR_ITS ---
EXAMINATION: XR PELVIS 1-2 VIEWS HISTORY: rt stan COMPARISON: Comparison is made with the prior examination dated 04/25/2024. FINDINGS: A single AP portable view of the pelvis performed at 9:44 AM is submitted. The patient is status post right total hip arthroplasty. The orthopedic elements are in anatomic alignment on this single AP view. The patient is also status post left total hip arthroplasty. There are postoperative changes in the soft tissues. XR/XR pelvis 1-2V IMPRESSION: Status post right total hip arthroplasty. Electronically signed by: Cr Hays MD 04/30/2024 10:11 AM [facility]
--- OUTSIDE RECORDS SUMMARY | 2024-04-30 05:54 | XMS_ITS | Encounter Summary ---
Author Organization [facility] Address [address] [place] [address] Care Team Providers Care Aircraft Maintenance Manager Name Role Phone Daniel Mota MD Primary Care Provider Unavail Victor Manuel Yu MD Primary Care Provider Unava ilable Daniel Mota MD Primary Care Provider Unavail Ayan Pulliam MD Primary Care Provider [phone] Victor Manuel Gonzales MD Primary Care Provider Justinava jaxson Encounter Details Date Type Department Care Team Description 11/27/2013 Controlled Substance Plan Medical Records [address] [place] [address] Abstract, Provider Social History Tobacco Use Types [...] in this encounter Care Teams Aircraft Maintenance Manager Relationship Specialty Start Date End Date Daniel Mota MD PCP - General 07/27/1994 12/22/15 Victor Manuel Gonzales MD PCP - General Internal Medicine 07/22/16 10/19/16 Daniel Mota MD PCP - General Internal Medicine 10/20/16 09/23/19 Ayan Clayton MD [address] [place] [address] PCP - General Internal Medicine 09/24/19 Victor Manuel Gonzales MD PCP - General 12/23/15 07/21/16 documented as of this encounter
--- OUTSIDE RECORDS SUMMARY | 2024-04-30 05:54 | XMS_ITS | Clinical Summary ---
Author Organization [facility] Address [address] [place] [address] Care Team Providers Care Ordnance Mechanic Name Role Phone Ayan Clayton MD Primary Care Provider [phone] Allergies Active Allergy Reactions Severity Noted Date Comments Metformin Diarrhea 09/23/2016 Sulfa Drugs High 03/28/2005 swelling and difficulty breathing Medications Medication Sig Dispensed Refills Start Date End Date Status Glucose Blood (FREESTYLE LITE) StripIndications:Ty pe 2 diabetes mellitus with neurological manifestations (HCC) TEST BLOOD SUGAR FOUR TIMES DAILY 200 Strip 2 11/12/2021 Active Incontinence Supply Disposable (Underpads Extra Large) Misc Use daily 15 Each 0 06/23/2022 Active polyethylene glycol (GLYCOLAX) 17 g packet MIX 1 PACKET IN 8 OUNCES OF WATER, JUICE,SODA, COFFEE, OR TEA DAILY NEEDED FOR CONSTIPATION TWICE DAILY 0 08/03/2022 Active triamcinolone acetonide (Kenalog) 40 MG/ML injection Inject 1 mL into the articular space once for 1 dose. 1 mL 0 03/10/2023 Active ibuprofen (ADVIL,MOTRIN) 800 MG tablet Take 1 Tablet by mouth every 8 hours as needed for Pain. 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 INJECT 2mg's SUBCUTANEOUSLY EVERY WEEK 9 mL 1 04/10/2023 Active nystatin (MYCOSTATIN) cream APPLY TO THE AFFECTED AREA(S) THREE TIMES DAILY 30 g 1 04/11/2023 Active thiamine 100 MG tablet Take 1 Tablet by mouth daily. 90 Tablet 1 05/23/2023 Active B Complex-C (B-complex with vitamin C) tablet TAKE ONE TABLET BY MOUTH EVERY DAY 90 Tablet 3 05/25/2023 Active celecoxib (CELEBREX) 100 MG capsule TAKE ONE CAPSULE TWICE DAILY 0 05/18/2023 Active ALBUTEROL SULFATE (Ventolin HFA) 108 (90 Base) MCG/ACT Aero SolnIndications:Chr onic bronchitis, unspecified chronic bronchitis type (HCC),Centrilobular emphysema (HCC) Inhale 2 Puffs into the lungs 4 times daily as needed for Wheezing or Shortness of Breath. 18 g 2 06/05/2023 Active Vitamin D3 25 MCG (1000 UT) Tab TAKE ONE TABLET EVERY DAY 90 Tablet 1 06/21/2023 Active Lansoprazole 15 MG Tablet Delayed Release Dispersible DISSOLVE 1 TABLET BY MOUTH EVERY DAY 0 06/21/2023 Active calcitonin, salmon, (MIACALCIN) 200 UNIT/ACT nasal spray 1 Rochert by Alternating Nares route daily. 3.7 mL 0 06/29/2023 Active cetirizine (ZYRTEC) 10 MG tablet Take 1 Tablet by mouth daily. 90 Tablet 1 07/05/2023 Active atorvastatin (LIPITOR) 20 MG tablet Take 1 Tablet by mouth at bedtime. 90 Tablet 1 07/05/2023 Active hydrOXYzine (ATARAX) 50 MG tablet Take 1 Tablet by mouth 2 times daily. 180 Tablet 0 07/05/2023 Active lisinopril (PRINIVIL,ZESTRIL) 2.5 MG tablet Take 1 Tablet by mouth daily for 180 days. 30 Tablet 5 07/05/2023 Active acetaminophen (TYLENOL) 650 MG CR tablet TAKE ONE TABLET EVERY 8 HOURS NEEDED FOR PAIN 270 Tablet 1 07/11/2023 Active Diclofenac Sodium 1 % Gel APPLY ONE GRAM TO THE AFFECTED AREA(s) TWICE DAILY 100 g 3 07/11/2023 Active Fluticasone-Umeclid in-Vilant (Trelegy Ellipta) 100-62.5-25 MCG/ACT AEROSOL POWDER,BREATH ACTIVATEDIndication s:Chronic bronchitis, unspecified chronic bronchitis type (HCC),Centrilobular emphysema (HCC) Inhale 1 Puff into the lungs daily. 60 Each 5 08/07/2023 Active Multiple Vitamins-Minerals (multivitamin with minerals) tablet TAKE ONE TABLET BY MOUTH EVERY DAY 90 Tablet 1 12/14/2023 Active vitamin B-12 (CYANOCOBALAMIN) 1000 MCG tablet TAKE ONE TABLET DAILY 90 Tablet 1 12/18/2023 Active tizanidine (ZANAFLEX) 4 MG tablet TAKE ONE TABLET EVERY 6 HOURS NEEDED FOR MUSCLE SPASMS 120 Tablet 1 12/14/2023 Active Active Problems Patient Care Coordination No te Formatting of this note is d ifferent from the original. Checking Your Blood Sugars Please check your blood sugars every day. Please check your sugars at the following times of day: before breakfast and before bedtime Your Blood Sugar Goals Pre Meal: 90-130 2 hours after meals: 110-160 Bedtime: 110-150 Use the Results ?? Bring your glucometer to every appointment ?? Write your fingerstick blood sugars down on a log sheet or record book. Bring them to your appointment ?? Look for patterns in the numbers. The results help you and your provider make decisions about your diabetes treatment plan. Your Results and your Goals Your Result / Date of Completion Your Goal / How Often to Assess Component Value Date HGBA1C 7.0 08/02/2014 Less than 7%--- 2-4 times per year BP Readings from Last 1 Encounters: 11/04/14 118/80 Less than 130/80--- once per year Component Value Date LDL 151 05/07/2014 LDL less than 100--- once per year Component Value Date MALBUR 13.1 05/07/2014 Less than 30--- once per year Wt Readings from Last 1 Encounters: 11/04/14 235 lb 9.6 oz (106.867 kg) Your goal weight by next visit: 232 --- reassess 2-4 times a year Health Maintenance Due Topic Date Due ? ? Diabetes: Annual Eye Exam 04/02/2014 ? ? Diabetes: Annual Care Plan 08/16/2014 Your Action Plan Check blood glucose as directed and write down all results. Check feet for sores every day Contact me if you experience any barriers to care such as inability to purchase your medication, difficulty getting to your appointments or difficulty understanding your care plan Please get your yearly flu shot When to Call your Healthcare Provider If your blood sugar falls below 70 and you do not know why or you become unconscious If you are sick and unable to take liquids because or nausea or vomiting If you have a fever over 101 If your blood sugar is 300 or higher on greater than 3 separate occasions during the same week If you are just unsure what to do Educational Resources [place] [employer] (www.diabetes.org) Centers for Disease Control and Prevention (www.cdc.gov/diabetes) This care plan was created in collaboration with Yanet King on 11/04/2014 Problem Noted Date Overweight (BMI 25.0-29.9) 11/07/2022 Nocturnal hypoxemia 01/20/2022 COVID-19 virus detected 07/23/2019 Overview: 07/22/2019 Lumbar disc disease 05/02/2019 Obesity (BMI 30.0-34.9) 10/16/2018 Overview: S/p sleeve gastrectomy (Oct 2018) Centrilobular emphysema 10/01/2018 Overview: CT Lung Screenin02/2021: No pulmonary nodues. Allergic rhinitis due to pollen 10/02/19 19 Snoring 05/24/2017 Overview: 05/18/2017 Home Sleep Study did not reveal sleep apnea. Varicose veins of both lower extremities 02/01/2017 Microalbuminuria 10/25/2016 Peripheral neuropathy 10/25/2016 Overview: Consult Dr. Russell 05/02/2011. 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 07/11/2012 Hypertension 05/14/2010 hyperlipidemia 03/28/2005 Fibromyalgia 03/28/2005 Asthma Resolved Problems Problem Noted Date Resolved Date Class 1 obesity due to exces s calories with body mass index (BMI) of 31.0 to 31.9 in adult 07/05/2022 11/07/2022 Former smoker 10/01/2018 12/23/2021 Post-nasal drainage 10/01/2018 12/23/2021 Bariatric surgery status 12/25/2017 022 Overview: 10/2018 lap sleeve gastrectomy Recurrent ventral hernia 11/02/2012 020 Morbid obesity with BMI of 50.0-59.9, adult 01/2510/16/2018 Immunizations Name Administration Dates Next Due COVID-19 (Moderna) 05/03/2021,06/23/2020, 021 Influenza (> 6 Months) 12/07/2014,2013,12/27/2012,01/29,12/15/2010,04/30/2010,12/14/2008 ,12/29/2007,2006,01/05/2006,11/26 Influenza H1N1 Pandemic Flu Vaccine 02/05/2009 Influenza Vaccine-preservati ve Free-quadrivalent 4 Years 12/22/2020,03/05/2020,11/29/2018,12/25 Influenza Vaccine-quadrivale nt 4 Years Plus 01/13/2017 Influenza vaccine high dose age 65 and over 12/08/2022,12/07/2021 Pneumoccoccal(Adult) Polysac charide PPSV23 12/21/2004 Pneumococcal Conjugate PCV-13 02/03/2021 Shingrix (Recombinant zoster vaccine) 05/16/2019 ,03/13/2019 TETANUS/DIPTHERIA (ADULT) 04/17/2002 Td, Adsorbed, Preservative F ree, Adult Use, Lf Unspecified 04/17/2002 Tdap 12/08/2022,01/30/2012 Family History Medical History Relation Name Comments Diabetes Brother 1 COPD Drug Abuse Brother 2 COPD Father Hypertension Mother hernia, ,? Ca o f GB or pancreas, 63, Arthritis [place] Breast Negative Hx Relation Name Status Comments Brother 1 Brother 2 Father Mother Social History Tobacco Use Types Packs/Day Years Used Date Smoking Tobacco: Former Cigarettes 4 45 1 963 - 03/27/2007 Smokeless Tobacco: Never Tobacco Cessation:Counseling Given: Not Answered Alcohol Use Standard Drinks/Week Comments No 0 (1 standard drink = 0.6 oz pur e alcohol) Sex Assigned at Date Recorded Female 07/15/2020 1:36 AM E DT Job Start Date Occupation Industry Not on file Not on file Not on file Last Filed Vital Signs Vital Sign Reading Time Taken Comments Blood Pressure 98/51 12/21/2023 12:59 PM EDT Pulse 60 12/21/2023 12:59 PM EDT Temperature 36.4 ??C (97.6 ??F) 10/09/2023 12:47 PM E DT Respiratory Rate 14 10/09/2023 12:47 PM EDT Oxygen Saturation 98% 08/07/2023 10:04 AM EDT Inhaled Oxygen Concentration - - Weight 55.8 kg (123 lb) 10/09/2023 12:47 PM EDT Height 152.4 cm (5') 10/09/2023 12:47 PM EDT Body Mass Index 24.02 10/09/2023 12:47 PM EDT Plan of Treatment Health Maintenance Due Date Last Done Comments PNEUMOCOCCAL VACCINE (3 - PPSV23 or PCV20) 02/03/2022 02/03/2021, 12/21/2004 FALL RISK ASSESSMENT 03/22/2022 03/22/2021 BONE DENSITY SCREENING 08/12/2023 , 09/05/2007, 10/16/2003, Additional history exists DIABETES: BLOOD SUGAR CONTROL TEST (HGBA1C) 09/28/2023 06/29/2023, 06/29/2023, 10/06/2022, Additional history exists Covid-19 Vaccine ( season) 2023 05/03/2021, 06/23/2020, 05/26/2020 INFLUENZA (#1) 2023 12/08/2022, 11/25, 12/22/2020, Additional history exists DEPRESSION SCREEN 12/09/2023 12/08/2022, , 12/25/2017, Additional history exists DIABETES: ANNUAL EYE EXAM 12/22/20232022, 05/27/2020, 02/11/2019 (External Completion), Additional history exists Lung Cancer Screening (Low Dose CT) 03/26/2024 03/26/2023, 03/23/2022, 03/16/2021, Additional history exists DIABETES: ANNUAL FOOT EXAM 04/10/202404/10 (Completed), 10/19/2021 (External Completion), 03/22/2021, Additional history exists DIABETES/HEART DISEASE: ANNUAL CHOLESTEROL (LDL) 06/28/2024 06/29/2023, 01/03/2023, 06/27/2022, Additional history exists MAMMOGRAM 08/15/2024 08/16/2023, 07/25, 08/11/2021, Additional history exists DIABETES: ANNUAL URINE PROTEIN TEST (MICROALBUMIN) 01/02/2025 01/03/2024, 06/29/2023, 01/03/2023, Additional history exists COLON CANCER SCREENING 02/16/2031 , 04/27/2016 (External Completion), 04/27/2016, Additional history exists DTAP/TDAP/TD (3 - Td or Tdap) 12/08/2032 12/08/2022, 01/30/2012, 04/17/2002 SHINGLES VACCINE Addressed 05/16/2019, (External Completion), 04/15/2019 (External Completion), Additional history exists Overridden with the intention of not completing the topic HEPATITIS C SCREENING Completed 12/07/2020, 009 Advance Directives For more information, please contact: [phone] Latest Code Status on File Code Status Date Activated Date Inactivated Comments Partial Code 01/29/2023 1:25 PM molst form signed 01/03/2023 no dialysis use intubation but short term only Care Teams Ordnance Mechanic Relationship Specialty Start Date End Date Ayan Clayton MD [address] [place] [id number] PCP - General Internal Medicine 09/24/19
--- OUTSIDE RECORDS SUMMARY | 2024-04-30 05:54 | XMS_ITS | Encounter Summary ---
Author Organization [facility] Address [address] [place] [address] Care Team Providers Care Curriculum Counselor Name Role Phone Ayan Clayton MD Primary Care Provider [phone] Encounter Details Date Type Department Care Team Description 03/23/2022 Orders Only [facility] Lung Screening Program [place] [address] [facility] [address] [place] [phone] Frank Hampton MD [address] [facility] [address] [place] [address] History of tobacco abuse Social History Tobacco [...] health documented in this encounter Care Teams Curriculum Counselor Relationship Specialty Start Date End Date Ayan Clayton MD [address] [place] [address] [id number] PCP - General Internal Medicine 09/24/19 documented as of this encounter
--- OUTSIDE RECORDS SUMMARY | 2024-04-30 05:54 | XMS_ITS | Encounter Summary ---
Author Organization [facility] Address [address] [place] [address] Care Team Providers Care Hawk Missile Air Defense Artillery Name Role Phone Ayan Clayton MD Primary Care Provider [phone] Reason for Visit * Reason Onset Date Comments Faxed Order 03/17/2022 [facility] Encounter Details Date Type Department Care Team Description 03/17/2022 Telephone Adult Medicine [facility] [address] [place] [address] [phone] Ayan Clayton MD [address] [place] [address] [phone] Faxed Order ([facility] ) Social History Tobacco Use Types Packs/Day [...] encounter Miscellaneous Notes * Telephone Encounter - Merna Castaneda - 03/17/2022 1:21 PM EST Faxed order received. Please sign,date and fax. documented in this encounter Plan of Treatment Not on file documented as of this encounter Visit Diagnoses Not on filedocumented in this encounter Care Teams Hawk Missile Air Defense Artillery Relationship Specialty Start Date End Date Ayan Clayton MD [address] [place] [id number] PCP - General Internal Medicine 09/24/19 documented as of this encounter
--- OUTSIDE RECORDS SUMMARY | 2024-04-30 05:54 | XMS_ITS | Encounter Summary ---
Author Organization [facility] Address [address] [place] [address] Care Team Providers Care Labor Training Manager Name Role Phone Ayan Clayton MD Primary Care Provider [phone] Reason for Visit * Reason Onset Date Comments [facility]NA Call 08/31/2023 Encounter Details Date Type Department Care Team Description 08/31/2023 Telephone Adult Medicine [address] [phone] Ayan Clayton MD [address] [place] [address] [phone] [facility] Call Social History Tobacco Use Types [...] Notes * Telephone Encounter - Yifan Rocha L.P.NJason - 08/31/2023 12:30 PM EDT VO left [...] - 08/31/2023 11:56 AM EDT [facility] Ortho gave the original order for PTand OT Please review and advise Please send response to the VNA pool P [phone] Thank you Last visit08/01/23 documented in this encounter Plan of Treatment Not on file documented as of this encounter Visit Diagnoses Not on filedocumented in this encounter Care Teams Labor Training Manager Relationship Specialty Start Date End Date Ayan Clayton MD [address] [place] [id number] PCP - General Internal Medicine 09/24/19 documented as of this encounter
--- OUTSIDE RECORDS SUMMARY | 2024-04-30 05:54 | XMS_ITS | Encounter Summary ---
Author Organization [facility] Address [address] [place] [address] Care Team Providers Care Outboard System Operator Name Role Phone Daniel Mota MD Primary Care Provider Unavail Victor Manuel Yu MD Primary Care Provider Unava ilable Daniel Mota MD Primary Care Provider Unavail Ayan Pulliam MD Primary Care Provider [phone] Victor Manuel Gonzales MD Primary Care Provider Unava ilmaximino Encounter Details Date Type Department Care Team Description 07/22/2013 Refill Adult Medicine [address] [address] Daniel Mota MD Social History Tobacco Use [...] on filedocumented in this encounter Care Teams Outboard System Operator Relationship Specialty Start Date End Date Daniel Mota MD PCP - General 07/27/1994 12/22/15 Victor Manuel Gonzales MD PCP - General Internal Medicine 07/22/16 10/19/16 Dnaiel Mota MD PCP - General Internal Medicine 10/20/16 09/23/19 Ayan Clayton MD [address] [place] [address] PCP - General Internal Medicine 09/24/19 Victor Manuel Gonzales MD PCP - General 12/23/15 07/21/16 documented as of this encounter
--- OUTSIDE RECORDS SUMMARY | 2024-04-30 05:54 | XMS_ITS | Encounter Summary ---
Author Organization [facility] Address [address] [place] [address] Care Team Providers Care Elementary Tutor Name Role Phone Daniel Mota MD Primary Care Provider Unavail able Ayan Claytno MD Primary Care Provider [phone] Encounter Details Date Type Department Care Team Description 02/05/2019 Telephone General Surgery - [place] [address] [facility] [address] [place] [address] Torrey Moreno MD [address] [place] [address] [address] [place], [place] [phone] Social History Tobacco Use Types Packs/Day Years [...] on filedocumented in this encounter Care Teams Elementary Tutor Relationship Specialty Start Date End Date Daniel Mota MD PCP - General Internal Medicine 10/20/16 09/23/19 Ayan Clayton MD [address] [place] [address] [phone] PCP - General Internal Medicine 09/24/19 documented as of this encounter
--- OUTSIDE RECORDS SUMMARY | 2024-04-30 05:54 | XMS_ITS | Encounter Summary ---
Author Organization [facility] Address [address] [place] [address] Care Team Providers Care Casualty Claim Adjuster Name Role Phone Daniel Mota MD Primary Care Provider Unavail Victor Manuel Yu MD Primary Care Provider Unava ilable Daniel Mota MD Primary Care Provider Unavail Ayan Pulliam MD Primary Care Provider [phone] Victor Manuel Gonzales MD Primary Care Provider Unava ilmaximino Encounter Details Date Type Department Care Team Description 12/11/2013 STEAM FITTER/[facility] Report Medical Records [address] [place] [address] Abstract, Provider Social History Tobacco Use Types [...] on filedocumented in this encounter Care Teams Casualty Claim Adjuster Relationship Specialty Start Date End Date Daniel Mota MD PCP - General 07/27/1994 12/22/15 Victor Manuel Gonzales MD PCP - General Internal Medicine 07/22/16 10/19/16 Daniel Mota MD PCP - General Internal Medicine 10/20/16 09/23/19 Ayan Clayton MD [address] [place] [id number] PCP - General Internal Medicine 09/24/19 Victor Manuel Gonzales MD PCP - General 12/23/15 07/21/16 documented as of this encounter
--- OUTSIDE RECORDS SUMMARY | 2024-04-30 05:54 | XMS_ITS | Encounter Summary ---
Author Organization [facility] Address [address] [place] [address] Care Team Providers Care Concrete Finisher Apprentice Name Role Phone Ayan Clayton MD Primary Care Provider [phone] Reason for Visit * Reason Comments E-prescribe Rx Request Encounter Details Date Type Department Care Team Description 11/12/2021 Refill Endocrinology - [place] [address] [place] [address] Juan Alberto Kendall MD [address] [place], [place] [phone] E-prescribe Rx Request Social History Tobacco Use [...] uncontrolled documented in this encounter Care Teams Concrete Finisher Apprentice Relationship Specialty Start Date End Date Ayan Clayton MD [address] [place] [phone] PCP - General Internal Medicine 09/24/19 documented as of this encounter
--- OUTSIDE RECORDS SUMMARY | 2024-04-30 05:54 | XMS_ITS | Encounter Summary ---
Author Organization [facility] Address [address] [place] [address] Care Team Providers Care Fibrous Wallboard Inspector Name Role Phone Daniel Mota MD Primary Care Provider Unavail Victor Manuel Yu MD Primary Care Provider Unava ilable Daniel Mota MD Primary Care Provider Unavail Ayan Pulliam MD Primary Care Provider [phone] Victor Manuel Gonzales MD Primary Care Provider Unava jaxson Encounter Details Date Type Department Care Team Description 02/13/2007 [facility] Medical Records [address] [place] [address] Brennon Nguyen Social History Tobacco Use Types Packs/Day Years [...] on filedocumented in this encounter Care Teams Fibrous Wallboard Inspector Relationship Specialty Start Date End Date Daniel Mtoa MD PCP - General 07/27/1994 12/22/15 Victor Manuel Gonzales MD PCP - General Internal Medicine 07/22/16 10/19/16 Daniel Mota MD PCP - General Internal Medicine 10/20/16 09/23/19 Ayan Clayton MD [address] [place] [id number] PCP - General Internal Medicine 09/24/19 Victor Manuel Gonzales MD PCP - General 12/23/15 07/21/16 documented as of this encounter
--- OUTSIDE RECORDS SUMMARY | 2024-04-30 05:54 | XMS_ITS | Encounter Summary ---
Author Organization [facility] Address [address] [place] [address] Care Team Providers Care Bsw Name Role Phone Daniel Mota MD Primary Care Provider Ayan Rubalcava MD Primary Care Provider [phone] Reason for Visit * Reason Comments E-prescribe Rx Request Encounter Details Date Type Department Care Team Description 10/12/2018 Refill Pulmonology - [place] [address] [facility] [address] [place] [phone] Carlos Hurley MD [address] [facility] [address] [place] [phone] E-prescribe Rx Request Social History Tobacco Use [...] (chronic) documented in this encounter Care Teams Bsw Relationship Specialty Start Date End Date Daniel Mota MD PCP - General Internal Medicine 10/20/16 09/23/19 Ayan Clayton MD [address] [place] [phone] PCP - General Internal Medicine 09/24/19 documented as of this encounter
--- OUTSIDE RECORDS SUMMARY | 2024-04-30 05:54 | XMS_ITS | Encounter Summary ---
Author Organization [facility] Address [address] [place] [address] Care Team Providers Care Industrial Maintenance Manager Name Role Phone Ayan Clayton MD Primary Care Provider [phone] Encounter Details Date Type Department Care Team Description 06/10/2023 Hospital Medical Records [address] [place] [address] Social History Tobacco Use Types Packs/Day Years [...] on filedocumented in this encounter Care Teams Industrial Maintenance Manager Relationship Specialty Start Date End Date Ayan Clayton MD [address] [place] [address] [phone] PCP - General Internal Medicine 09/24/19 documented as of this encounter
--- OUTSIDE RECORDS SUMMARY | 2024-04-30 05:54 | XMS_ITS | Encounter Summary ---
Author Organization [facility] Address [address] [place] [address] Care Team Providers Care Hooker Machine Tender Name Role Phone Daniel Mota MD Primary Care Provider Ayan Rubalcava MD Primary Care Provider [phone] Reason for Visit * Reason Comments E-prescribe Rx Request Encounter Details Date Type Department Care Team Description 12/18/2018 Refill General Surgery - [place] [address] [facility] [address] [place] [phone] Torrey Moreno MD [address] [place] [address] [address] [place] [address] E-prescribe Rx Request Social History Tobacco Use [...] encounter Miscellaneous Notes * Telephone Encounter - Tatiana Ochoa M.A. - 12/18/2018 10:58 AM EDT Please advise documented in this encounter Plan of Treatment Not on file documented as of this encounter Visit Diagnoses Not on filedocumented in this encounter Care Teams Hooker Machine Tender Relationship Specialty Start Date End Date Daniel Mota MD PCP - General Internal Medicine 10/20/16 09/23/19 Ayan Clayton MD [address] [place] [id number] PCP - General Internal Medicine 09/24/19 documented as of this encounter
--- OUTSIDE RECORDS SUMMARY | 2024-04-30 05:54 | XMS_ITS | Encounter Summary ---
Author Organization [facility] Address [address] [place] [address] Care Team Providers Care Licensing Services Clerk Name Role Phone Daniel Mota MD Primary Care Provider Unavail able Ayan Clayton MD Primary Care Provider [phone] Encounter Details Date Type Department Care Team Description 11/09/2018 Hospital Medical Records [address] [place] [address] Torrey Moreno MD [address] [place] [address] [address] [place] [address] Social History Tobacco Use Types Packs/Day Years [...] on filedocumented in this encounter Care Teams Licensing Services Clerk Relationship Specialty Start Date End Date Daniel Mota MD PCP - General Internal Medicine 10/20/16 09/23/19 Ayan Clayton MD [address] [place], [place] [phone] PCP - General Internal Medicine 09/24/19 documented as of this encounter
--- OUTSIDE RECORDS SUMMARY | 2024-04-30 05:54 | XMS_ITS | Encounter Summary ---
Author Organization [facility] Address [address] [place] [address] Care Team Providers Care Pipe Fittings Molder Name Role Phone Ayan Clayton MD Primary Care Provider [phone] Reason for Visit * Reason Comments E-prescribe Rx Request Encounter Details Date Type Department Care Team Description 12/10/2021 Refill Endocrinology - [place] [address] [place] [address] Juan Alberto Kendall MD [address] [place], [place] [phone] E-prescribe Rx Request Social History Tobacco Use [...] uncontrolled documented in this encounter Care Teams Pipe Fittings Molder Relationship Specialty Start Date End Date Ayan Clayton MD [address] [place] [address] PCP - General Internal Medicine 09/24/19 documented as of this encounter
--- OUTSIDE RECORDS SUMMARY | 2024-04-30 05:54 | XMS_ITS | Encounter Summary ---
Author Organization [facility] Address [address] [place] [address] Care Team Providers Care Wrapper And Preserver Name Role Phone Ayan Clayton MD Primary Care Provider [phone] Reason for Visit * Reason Comments E-prescribe Rx Request Encounter Details Date Type Department Care Team Description 11/14/2021 Refill General Surgery - [place] [address] [facility] [address] [place] [address] Torrey Moreno MD [address] [place] [address] [address] [place] [address] E-prescribe Rx Request Social History Tobacco Use [...] deficiency documented in this encounter Care Teams Wrapper And Preserver Relationship Specialty Start Date End Date Ayan Clayton MD [address] [place] [address] PCP - General Internal Medicine 09/24/19 documented as of this encounter
--- OUTSIDE RECORDS SUMMARY | 2024-04-30 05:54 | XMS_ITS | Encounter Summary ---
Author Organization [facility] Address [address] [place] [address] Care Team Providers Care Manager Event Name Role Phone Daniel Mota MD Primary Care Provider Unavail able Ayan Clayton MD Primary Care Provider [phone] Encounter Details Date Type Department Care Team Description 11/20/2018 Hospital Medical Records [address] Social History Tobacco Use Types Packs/Day [...] filedocumented in this encounter Care Teams Manager Event Relationship Specialty Start Date End Date Daniel Mota MD PCP - General Internal Medicine 10/20/16 09/23/19 Ayan Clayton MD [address] [place] [address] PCP - General Internal Medicine 09/24/19 documented as of this encounter
--- OUTSIDE RECORDS SUMMARY | 2024-04-30 05:54 | XMS_ITS | Encounter Summary ---
Author Organization [facility] Address [address] [place] [address] Care Team Providers Care Regrinder Name Role Phone Daniel Mota MD Primary Care Provider Unavail Victor Manuel Yu MD Primary Care Provider Unava ilable Daniel Mota MD Primary Care Provider Unavail Ayan Pulliam MD Primary Care Provider [phone] Victor Manuel Gonzales MD Primary Care Provider Justinava jaxson Encounter Details Date Type Department Care Team Description 11/07/2012 Release of Information Medical Records [address] [place] [address] Abstract, Provider Social History Tobacco Use Types [...] on filedocumented in this encounter Care Teams Regrinder Relationship Specialty Start Date End Date Daniel Mota MD PCP - General 07/27/1994 12/22/15 Victor Manuel Gonzales MD PCP - General Internal Medicine 07/22/16 10/19/16 Daniel Mota MD PCP - General Internal Medicine 10/20/16 09/23/19 Ayan Clayton MD [address] [place] [address] PCP - General Internal Medicine 09/24/19 Victor Manuel Gonzales MD PCP - General 12/23/15 07/21/16 documented as of this encounter
--- OUTSIDE RECORDS SUMMARY | 2024-04-30 05:54 | XMS_ITS | Encounter Summary ---
Author Organization [facility] Address [address] [place] [address] Care Team Providers Care Rn Referral Name Role Phone Ayan Clayton MD Primary Care Provider [phone] Encounter Details Date Type Department Care Team Description 05/18/2023 Horticultural Services Supervisor Report Medical Records [address] [place] [address] Rell Leavitt Social History Tobacco Use Types [...] on filedocumented in this encounter Care Teams Rn Referral Relationship Specialty Start Date End Date Ayan Clayton MD [address] [place], [place] [phone] PCP - General Internal Medicine 09/24/19 documented as of this encounter
--- OUTSIDE RECORDS SUMMARY | 2024-04-30 05:54 | XMS_ITS | Encounter Summary ---
Author Organization [facility] Address [address] [place] [address] Care Team Providers Care Customer Care Agent Name Role Phone Ayan Clayton MD Primary Care Provider [phone] Encounter Details Date Type Department Care Team Description 07/03/2023 Orders Only Medical Records [address] [place] [address] Social History Tobacco Use Types Packs/Day Years [...] [facility] * OUTSIDE CT (06/10/2023) [facility] RADIOLOGY * OUTSIDE MRI/MRA (06/10/2023) [facility] RADIOLOGY documented in this encounter Visit Diagnoses Not on filedocumented in this encounter Care Teams Customer Care Agent Relationship Specialty Start Date End Date Ayan Clayton MD [address] [place] [address] PCP - General Internal Medicine 09/24/19 documented as of this encounter
--- OUTSIDE RECORDS SUMMARY | 2024-04-30 05:54 | XMS_ITS | Encounter Summary ---
Author Organization [facility] Address [address] [place] [address] Care Team Providers Care Armed Custom Protection Officer Name Role Phone Ayan Clayton MD Primary Care Provider [phone] Reason for Visit * Reason Onset Date Comments Faxed Order 06/26/2023 [facility] Encounter Details Date Type Department Care Team Description 06/26/2023 Telephone Adult Medicine [facility] [address] [place] [address] [phone] Ayan Clayton MD [address] [place] [address] [phone] Faxed Order ([facility]) Social History Tobacco Use [...] Howard Soria - 06/26/2023 12:17 PM EDT OCTAVE BOARD ASSEMBLER order received and placed in providers bin documented in this encounter Plan of Treatment Not on file documented as of this encounter Visit Diagnoses Not on filedocumented in this encounter Care Teams Armed Custom Protection Officer Relationship Specialty Start Date End Date Ayan Clayton MD [address] [place] [address] PCP - General Internal Medicine 09/24/19 documented as of this encounter
--- OUTSIDE RECORDS SUMMARY | 2024-04-30 05:54 | XMS_ITS | Encounter Summary ---
Author Organization [facility] Address [address] [place] [address] Care Team Providers Care Co Supervisor Grounds And Landscape Name Role Phone Ayan Clayton MD Primary Care Provider [phone] Encounter Details Date Type Department Care Team Description 06/11/2023 [facility] Worker Report Medical Records [address] [place] [address] Vega Garcia Social History Tobacco Use Types [...] on filedocumented in this encounter Care Teams Co Supervisor Grounds And Landscape Relationship Specialty Start Date End Date Ayan Clayton MD [address] [place] [address] PCP - General Internal Medicine 09/24/19 documented as of this encounter
--- OUTSIDE RECORDS SUMMARY | 2024-04-30 05:54 | XMS_ITS | Encounter Summary ---
Author Organization [facility] Address [address] [place] [address] Care Team Providers Care Template Cutter Name Role Phone Daniel Mota MD Primary Care Provider Unavail able Ayan Clayton MD Primary Care Provider [phone] Encounter Details Date Type Department Care Team Description 06/28/2019 State Auditor Report Medical Records [address] [place] [address] Bharath Block PA-C Social History Tobacco Use [...] on filedocumented in this encounter Care Teams Template Cutter Relationship Specialty Start Date End Date Daniel Mota MD PCP - General Internal Medicine 10/20/16 09/23/19 Ayan Clayton MD [address] [place], [place] [phone] PCP - General Internal Medicine 09/24/19 documented as of this encounter
--- OUTSIDE RECORDS SUMMARY | 2024-04-30 05:54 | XMS_ITS | Encounter Summary ---
Author Organization [facility] Address [address] [place] [address] Care Team Providers Care Validation Architect Name Role Phone Ayan Clayton MD Primary Care Provider Encounter Details Date Type Department Care Team Description 06/18/2023 Hospital Medical Records [address] [place] [address] Social History Tobacco Use Types Packs/Day Years [...] on filedocumented in this encounter Care Teams Validation Architect Relationship Specialty Start Date End Date Ayan Clayton MD [address] [place] [address] [phone] PCP - General Internal Medicine 09/24/19 documented as of this encounter
--- OUTSIDE RECORDS SUMMARY | 2024-04-30 05:54 | XMS_ITS | Encounter Summary ---
Author Organization [facility] Address [address] [place] [address] Care Team Providers Care Validation Manager Name Role Phone Daniel Mota MD Primary Care Provider [facility] Ayan Pulliam MD Primary Care Provider [phone] Encounter Details Date Type Department Care Team Description 08/03/2018 Orders Only Adult Medicine [facility] [address] [place] [address] Daniel Mota MD Type 2 diabetes mellitus [...] Primary documented in this encounter Care Teams Validation Manager Relationship Specialty Start Date End Date Daniel Mota MD PCP - General Internal Medicine 10/20/16 09/23/19 Ayan Clayton MD [address] [place] [address] PCP - General Internal Medicine 09/24/19 documented as of this encounter
--- OUTSIDE RECORDS SUMMARY | 2024-04-30 05:54 | XMS_ITS | Encounter Summary ---
Author Organization [facility] Address [address] [place] [address] Care Team Providers Care External Relations Manager Name Role Phone Ayan Clayton MD Primary Care Provider [phone] Encounter Details Date Type Department Care Team Description 04/19/2022 Supervisor Cook Room Report Medical Records [address] [place] [address] Skylar Hanna DPM Social History Tobacco Use [...] on filedocumented in this encounter Care Teams External Relations Manager Relationship Specialty Start Date End Date Ayan Clayton MD [address] [place] [address] PCP - General Internal Medicine 09/24/19 documented as of this encounter
--- OUTSIDE RECORDS SUMMARY | 2024-04-30 05:54 | XMS_ITS | Encounter Summary ---
Author Organization [facility] Address [address] [place] [address] Care Team Providers Care Kitchen Food Server Name Role Phone Ayan Clayton MD Primary Care Provider [phone] Encounter Details Date Type Department Care Team Description 08/24/2023 Brake Shoe Rebuilder Report Medical Records [address] [place] [address] Izabel Hoang Social History Tobacco Use Types Packs/Day Years [...] on filedocumented in this encounter Care Teams Kitchen Food Server Relationship Specialty Start Date End Date Ayan Clayton MD [address] [place] [address] [phone] PCP - General Internal Medicine 09/24/19 documented as of this encounter
--- OUTSIDE RECORDS SUMMARY | 2024-04-30 05:54 | XMS_ITS | Encounter Summary ---
Author Organization [facility] Address [address] [place] [address] Care Team Providers Care Postal Sorting Officer Name Role Phone Daniel Mota MD Primary Care Provider Ayan Rubalcava MD Primary Care Provider [phone] Reason for Visit * Reason Onset Date Comments Provider Call Back 12/04/2018 Encounter Details Date Type Department Care Team Description 12/04/2018 Telephone Adult Medicine [address] [address] Daniel Mota MD Provider Call Back Social History Tobacco Use [...] encounter Miscellaneous Notes * Telephone Encounter - Marques Fang - 12/04/2018 4:22 PM EDT Patient calling stating she needs an update on the status of her new sleep medication she was prescribed by Dr. Daniel Mota. She states she already went to get her bloodwork done and needs the medication urgently. documented in this encounter Plan of Treatment Not on file documented as of this encounter Visit Diagnoses Not on filedocumented in this encounter Care Teams Postal Sorting Officer Relationship Specialty Start Date End Date Daniel Mota MD PCP - General Internal Medicine 10/20/16 09/23/19 Ayan Clayton MD [address] [place] [address] PCP - General Internal Medicine 09/24/19 documented as of this encounter
--- OUTSIDE RECORDS SUMMARY | 2024-04-30 05:54 | XMS_ITS | Encounter Summary ---
Author Organization [facility] Address [address] [place] [address] Care Team Providers Care Junior Linux Administrator Name Role Phone Daniel Mota MD Primary Care Provider Unavail Victor Manuel Yu MD Primary Care Provider Unava ilable Daniel Mota MD Primary Care Provider Unavail Ayan Pulliam MD Primary Care Provider [phone] Victor Manuel Gonzales MD Primary Care Provider Unava ilmaximino Encounter Details Date Type Department Care Team Description 02/12/2013 Pt. Non Urgent Medical Question General Surgery [address] [place] [address] [phone] Bharath Rico MD [address] [place] [address] [phone] Social History Tobacco Use Types Packs/Day Years [...] on filedocumented in this encounter Care Teams Junior Linux Administrator Relationship Specialty Start Date End Date Daniel Mota MD PCP - General 07/27/1994 12/22/15 Victor Manuel Gonzales MD PCP - General Internal Medicine 07/22/16 10/19/16 Daniel Mota MD PCP - General Internal Medicine 10/20/16 09/23/19 Ayan Clayton MD [address] [place] [address] PCP - General Internal Medicine 09/24/19 Victor Manuel Gonzales MD PCP - General 12/23/15 07/21/16 documented as of this encounter
--- OUTSIDE RECORDS SUMMARY | 2024-04-30 05:54 | XMS_ITS | Encounter Summary ---
Author Organization [facility] Address [address] [place] [address] Care Team Providers Care Manager Process Excellence Name Role Phone Ayan Clayton MD Primary Care Provider [phone] Encounter Details Date Type Department Care Team Description 03/10/2022 Cpr Instructor Report Medical Records [address] [place] [address] Rell Leavitt Social History Tobacco Use Types [...] filedocumented in this encounter Care Teams Manager Process Excellence Relationship Specialty Start Date End Date Ayan Clayton MD [address] [place], [place] [phone] PCP - General Internal Medicine 09/24/19 documented as of this encounter
--- OUTSIDE RECORDS SUMMARY | 2024-04-30 05:54 | XMS_ITS | Encounter Summary ---
Author Organization [facility] Address [address] [place] [address] Care Team Providers Care Rn Clinical Review Name Role Phone Daniel Mota MD Primary Care Provider Ayan Rubalcava MD Primary Care Provider [phone] Encounter Details Date Type Department Care Team Description 05/31/2018 Telephone General Surgery - [place] [address] [facility] [address] [place] [address] Torrey Moreno MD [address] [place] [address] [address] [place], [place] [phone] Social History Tobacco Use Types Packs/Day Years [...] Miscellaneous Notes * Telephone Encounter - Tatiana Dobson - 05/31/2018 8:21 AM EST Please order bariatric labs for this patient. documented in this encounter Plan of Treatment Not on file documented as of this encounter Visit Diagnoses Not on filedocumented in this encounter Care Teams Rn Clinical Review Relationship Specialty Start Date End Date Daniel Mota MD PCP - General Internal Medicine 10/20/16 09/23/19 Ayan Clayton MD [address] [place] [address] PCP - General Internal Medicine 09/24/19 documented as of this encounter
--- OUTSIDE RECORDS SUMMARY | 2024-04-30 05:54 | XMS_ITS | Encounter Summary ---
Author Organization [facility] Address [address] [place] [address] Care Team Providers Care Gravel Truck Driver Name Role Phone Ayan Clayton MD Primary Care Provider [phone] Encounter Details Date Type Department Care Team Description 06/27/2023 Cable Armorer Report Medical Records [address] [place] [address] Vega Garcia Social History Tobacco Use Types [...] on filedocumented in this encounter Care Teams Gravel Truck Driver Relationship Specialty Start Date End Date Ayan Clayton MD [address] [place] [address] PCP - General Internal Medicine 09/24/19 documented as of this encounter
--- OUTSIDE RECORDS SUMMARY | 2024-04-30 05:54 | XMS_ITS | Encounter Summary ---
Author Organization [facility] Address [address] [place] [address] Care Team Providers Care Field Secretary Name Role Phone Ayan Clayton MD Primary Care Provider [phone] Reason for Visit * Reason Onset Date Comments Pre Op Visit 08/24/2023 Encounter Details Date Type Department Care Team Description 08/24/2023 Telephone Adult Medicine - [place] [address] [place] [address] Ayan Clayton MD [address] [place] [address] Pre Op Visit Social History Tobacco Use [...] Elisabeth Del Angel Patient Services / Pre-Op Manufacture Specialist Extension - [id number] documented in this encounter Plan of Treatment Not on file documented as of this encounter Visit Diagnoses Not on filedocumented in this encounter Care Teams Field Secretary Relationship Specialty Start Date End Date Ayan Clayton MD [address] [place] [address] PCP - General Internal Medicine 09/24/19 documented as of this encounter
--- OUTSIDE RECORDS SUMMARY | 2024-04-30 05:54 | XMS_ITS | Encounter Summary ---
Author Organization [facility] Address [address] [place] [address] Care Team Providers Care Help Desk Manager Name Role Phone Ayan Clayton MD Primary Care Provider [phone] Reason for Visit * Reason Comments E-prescribe Rx Request Encounter Details Date Type Department Care Team Description 02/15/2022 Refill Adult Medicine [facility] [address] [place], [place] [phone] Ayan Clayton MD [address] [place] [address] [phone] E-prescribe Rx Request Social History Tobacco Use [...] / Plan: [place] / Product Type: MEDICARE [id number] documented in this encounter Plan of Treatment Not on file documented as of this encounter Visit Diagnoses Not on filedocumented in this encounter Care Teams Help Desk Manager Relationship Specialty Start Date End Date Ayan Clayton MD [address] [place] [address] PCP - General Internal Medicine 09/24/19 documented as of this encounter
--- OUTSIDE RECORDS SUMMARY | 2024-04-30 05:54 | XMS_ITS | Encounter Summary ---
Author Organization [facility] Address [address] [place] [address] Care Team Providers Care Multicultural Internship Name Role Phone Ayan Clayton MD Primary Care Provider [phone] Encounter Details Date Type Department Care Team Description 03/30/2022 Orders Only Adult Medicine [facility] [address] [place], [place] [phone] Jhoana Hernandez PA-C [address] [place] [address] [phone] Snoring; Chronic insomnia; Nocturnal hypoxemia Social History Tobacco Use Types Packs/Day Years [...] suspected to have Coronavirus/COVID-19? No / Unsure 03/31/2022 12:44 PM EST documented as of this encounter Plan of Treatment Not on file documented as of this encounter Procedures Procedure Name Priority Date/Time Associated Diagnosis Comments SLEEP STUDY-FULL NEURO 16 CHANNEL Routine 03/11/2022 Snoring Chronic insomnia Nocturnal hypoxemia documented in this encounter Results * SLEEP STUDY-FULL NEURO 16 CHANNEL (03/11/2022) Jhoana Hernandez PA-C PULMONOLOGY documented in this encounter Visit Diagnoses Diagnosis Snoring Other dyspnea and respiratory abnormality Chronic insomnia Insomnia, unspecified Nocturnal hypoxemia Hypoxemia documented in this encounter Care Teams Multicultural Internship Relationship Specialty Start Date End Date Ayan Clayton MD [address] [place] [address] PCP - General Internal Medicine 09/24/19 documented as of this encounter
--- OUTSIDE RECORDS SUMMARY | 2024-04-30 05:54 | XMS_ITS | Encounter Summary ---
Author Organization [facility] Address [address] [place] [address] Care Team Providers Care Catheter Finisher And Inspector Name Role Phone Daniel Mota MD Primary Care Provider [facility] Ayan Pulliam MD Primary Care Provider [phone] Encounter Details Date Type Department Care Team Description 09/04/2018 Telephone Adult Medicine [facility] [address] [place] [address] Daniel Mota MD Social History Tobacco Use [...] couple of weeks.. When she receive the Aaron Andrews Apparele pro she is going to call me for appt with Dr. Mota.. documented in this encounter Plan of Treatment Not on file documented as of this encounter Visit Diagnoses Not on filedocumented in this encounter Care Teams Catheter Finisher And Inspector Relationship Specialty Start Date End Date Daniel Mota MD PCP - General Internal Medicine 10/20/16 09/23/19 Ayan Clayton MD [address] [place] [address] PCP - General Internal Medicine 09/24/19 documented as of this encounter
--- OUTSIDE RECORDS SUMMARY | 2024-04-30 05:54 | XMS_ITS | Encounter Summary ---
Author Organization [facility] Address [address] [place] [address] Care Team Providers Care Portfolio Assistant Name Role Phone Daniel Mota MD Primary Care Provider Unavail able Ayan Clayton MD Primary Care Provider Encounter Details Date Type Department Care Team Description 02/03/2019 Hospital Medical Records [address] [place] [address] Social History Tobacco Use Types Packs/Day Years [...] on filedocumented in this encounter Care Teams Portfolio Assistant Relationship Specialty Start Date End Date Daniel Mota MD PCP - General Internal Medicine 10/20/16 09/23/19 Ayan Clayton MD [address] [place] [address] [phone] PCP - General Internal Medicine 09/24/19 documented as of this encounter
--- OUTSIDE RECORDS SUMMARY | 2024-04-30 05:54 | XMS_ITS | Encounter Summary ---
Author Organization [facility] Address [address] [place] [address] Care Team Providers Care Fruit Farmworker Name Role Phone Daniel Mota MD Primary Care Provider Unavail Victor Manuel Yu MD Primary Care Provider Unava ilable Daniel Mota MD Primary Care Provider Unavail Ayan Pulliam MD Primary Care Provider [phone] Victor Manuel Gonzales MD Primary Care Provider Unava ilable Reason for Visit * Reason Onset Date Comments Provider Call Back 10/15/2013 Medication 10/15/2013 Encounter Details Date Type Department Care Team Description 10/15/2013 Telephone Physiatry - [place] [address] [place] [address] Surjit Reese DO Provider Call Back; Medication [...] in service per recording Message sent via Frengo * Telephone Encounter - Surjit Reese - [...] is at work. She works at [employer] until 11 pm. She wants to stop [...] unspecified documented in this encounter Care Teams Fruit Farmworker Relationship Specialty Start Date End Date Daniel Mota MD PCP - General 07/27/1994 12/22/15 Victor Manuel Gonzales MD PCP - General Internal Medicine 07/22/16 10/19/16 Daniel Mota MD PCP - General Internal Medicine 10/20/16 09/23/19 Ayan Clayton MD [address] [place] [address] PCP - General Internal Medicine 09/24/19 Victor Manuel Gonzales MD PCP - General 12/23/15 07/21/16 documented as of this encounter
--- OUTSIDE RECORDS SUMMARY | 2024-04-30 05:54 | XMS_ITS | Encounter Summary ---
Author Organization [facility] Address [address] [place] [address] Care Team Providers Care Youth Officer Name Role Phone Daniel Mota MD Primary Care Provider [facility] Ayan Clayton MD Primary Care Provider [phone] Reason for Visit * Reason Comments E-prescribe Rx Request Encounter Details Date Type Department Care Team Description 01/18/2019 [facility] - [place] [address] [facility] [address] [place] [id number] Torrey Morneo MD [address] [place] [address] [address] [place] [address] E-prescribe Rx Request Social History Tobacco Use [...] on filedocumented in this encounter Care Teams Youth Officer Relationship Specialty Start Date End Date Daniel Mota MD PCP - General Internal Medicine 10/20/16 09/23/19 Ayan Clayton MD [address] [place] [address] PCP - General Internal Medicine 09/24/19 documented as of this encounter
--- OUTSIDE RECORDS SUMMARY | 2024-04-30 05:54 | XMS_ITS | Encounter Summary ---
Author Organization [facility] Address [address] [place] [address] Care Team Providers Care Regional Sales Engineer Name Role Phone Daniel Mota MD Primary Care Provider Ayan Rubalcava MD Primary Care Provider Encounter Details Date Type Department Care Team Description 11/19/2018 Orders Only Medical Records [address] [place] [address] Abstract, Provider Social History Tobacco Use Types [...] filedocumented in this encounter Care Teams Regional Sales Engineer Relationship Specialty Start Date End Date Daniel Mota MD PCP - General Internal Medicine 10/20/16 09/23/19 Ayan Clayton MD [address] [place] [address] PCP - General Internal Medicine 09/24/19 documented as of this encounter
--- OUTSIDE RECORDS SUMMARY | 2024-04-30 05:54 | XMS_ITS | Encounter Summary ---
Author Organization [facility] Address [address] [place] [address] Care Team Providers Care Duct Installer Name Role Phone Daniel Mota MD Primary Care Provider Unavail able Ayan Clayton MD Primary Care Provider [phone] Encounter Details Date Type Department Care Team Description 11/19/2018 Hospital Medical Records [address] [place] [address] Xuan Jean Baptiste MD Social History Tobacco Use Types Packs/Day [...] on filedocumented in this encounter Care Teams Duct Installer Relationship Specialty Start Date End Date Dnaiel Mota MD PCP - General Internal Medicine 10/20/16 09/23/19 Ayan Clayton MD [address] [place], [place] [phone] PCP - General Internal Medicine 09/24/19 documented as of this encounter
--- OUTSIDE RECORDS SUMMARY | 2024-04-30 05:54 | XMS_ITS | Encounter Summary ---
Author Organization [facility] Address [address] [place] [address] Care Team Providers Care Pound Keeper Name Role Phone Daniel Mota MD Primary Care Provider Unavail Victor Manuel Yu MD Primary Care Provider Unava ilable Daniel Mota MD Primary Care Provider Unavail Ayan Pulliam MD Primary Care Provider [phone] Victor Manuel Gonzales MD Primary Care Provider Unava ilable Reason for Visit * Reason Onset Date Comments Faxed Refill 08/16/2013 Encounter Details Date Type Department Care Team Description 08/16/2013 Telephone Adult Medicine [address] [address] Daniel Mota MD Faxed Refill Social History [...] encounter Miscellaneous Notes * Telephone Encounter - Noemi Sanders - 08/16/2013 9:33 AM EDT Faxed refill put to pod documented in this encounter Plan of Treatment Not on file documented as of this encounter Visit Diagnoses Not on filedocumented in this encounter Care Teams Pound Keeper Relationship Specialty Start Date End Date Daniel Mota MD PCP - General 07/27/1994 12/22/15 Victor Manuel Gonzales MD PCP - General Internal Medicine 07/22/16 10/19/16 Daniel Mota MD PCP - General Internal Medicine 10/20/16 09/23/19 Ayan Clayton MD [address] [place] [address] PCP - General Internal Medicine 09/24/19 Victor Manuel Gonzales MD PCP - General 12/23/15 07/21/16 documented as of this encounter
--- OUTSIDE RECORDS SUMMARY | 2024-04-30 05:54 | XMS_ITS | Encounter Summary ---
Author Organization [facility] Address [address] [place] [address] Care Team Providers Care Business English Instructor Name Role Phone Ayan Clayton MD Primary Care Provider [phone] Encounter Details Date Type Department Care Team Description 08/12/2021 Business Doc Medical Records [address] [place] [address] Abstract, Provider Social History Tobacco Use Types [...] on filedocumented in this encounter Care Teams Business English Instructor Relationship Specialty Start Date End Date Ayan Clayton MD [address] [place], [place] [phone] PCP - General Internal Medicine 09/24/19 documented as of this encounter
--- OUTSIDE RECORDS SUMMARY | 2024-04-30 05:55 | XMS_ITS | Encounter Summary ---
Author Organization [facility] Address [address] [place] [address] Care Team Providers Care Network Cable Installer Name Role Phone Daniel Mota MD Primary Care Provider Unavail able Ayan Clayton MD Primary Care Provider [phone] Encounter Details Date Type Department Care Team Description 04/15/2019 Hospital Medical Records [address] [place] [address] Ta Garcia MD Social History Tobacco Use [...] filedocumented in this encounter Care Teams Network Cable Installer Relationship Specialty Start Date End Date Daniel Mota MD PCP - General Internal Medicine 10/20/16 09/23/19 Ayan Clayton MD [address] [place] [id number] PCP - General Internal Medicine 09/24/19 documented as of this encounter
--- OUTSIDE RECORDS SUMMARY | 2024-04-30 05:55 | XMS_ITS | Encounter Summary ---
Author Organization [facility] Address [address] [place] [address] Care Team Providers Care Notary Public Name Role Phone Ayan Clayton MD Primary Care Provider [phone] Reason for Visit * Reason Comments E-prescribe Rx Request Encounter Details Date Type Department Care Team Description 07/29/2020 Refill General Surgery - [place] 175 [facility] [address] [place] [address] Torrey Moreno MD [address] [place] [address] [address] [place], [place] [phone] E-prescribe Rx Request Social History Tobacco Use [...] Telephone Encounter - Carolina Arellano M.A. - 07/29/2020 11:44 AM EDT Pt needs a refill of cholecalciferol (vitamin D3) 125 mcg (5,000 unit) capsule documented in this encounter Plan of Treatment Not on file documented as of this encounter Visit Diagnoses Diagnosis Intestinal malabsorption following gastrectomy documented in this encounter Care Teams Notary Public Relationship Specialty Start Date End Date Ayan Clayton MD [address] [place] [address] PCP - General Internal Medicine 09/24/19 documented as of this encounter
--- OUTSIDE RECORDS SUMMARY | 2024-04-30 05:55 | XMS_ITS | Encounter Summary ---
Author Organization [facility] Address [address] [place] [address] Care Team Providers Care Police Detective Name Role Phone Daniel Mota MD Primary Care Provider Unavail Victor Manuel Yu MD Primary Care Provider Unava ilable Daniel Mota MD Primary Care Provider Unavail Ayan Pulliam MD Primary Care Provider [phone] Victor Manuel Gonzales MD Primary Care Provider Unava ilmaximino Encounter Details Date Type Department Care Team Description 01/29/2015 Engineering Faculty Report Medical Records [address] [place] [address] Austin Dorado Social History Tobacco Use Types [...] filedocumented in this encounter Care Teams Police Detective Relationship Specialty Start Date End Date Daniel Mota MD PCP - General 07/27/1994 12/22/15 Victor Manuel Gonzales MD PCP - General Internal Medicine 07/22/16 10/19/16 Daniel Mota MD PCP - General Internal Medicine 10/20/16 09/23/19 Ayan Clayton MD [address] [place] [address] PCP - General Internal Medicine 09/24/19 Victor Manuel Gonzales MD PCP - General 12/23/15 07/21/16 documented as of this encounter
--- OUTSIDE RECORDS SUMMARY | 2024-04-30 05:55 | XMS_ITS | Encounter Summary ---
Author Organization [facility] Address [address] [place] [address] Care Team Providers Care Head Start Coordinator Name Role Phone Daniel Mota MD Primary Care Provider Unavail Victor Manuel Yu MD Primary Care Provider Unava ilable Daniel Mota MD Primary Care Provider Unavail Ayan Pulliam MD Primary Care Provider [phone] Victor Manuel Gonzales MD Primary Care Provider Unava ilmaximino Encounter Details Date Type Department Care Team Description 08/01/2009 [facility] Medical Records [address] [place] [address] Orlando Stovall MD Social History Tobacco Use Types Packs/Day [...] filedocumented in this encounter Care Teams Head Start Coordinator Relationship Specialty Start Date End Date Daniel Mota MD PCP - General 07/27/1994 12/22/15 Victor Manuel Gonzales MD PCP - General Internal Medicine 07/22/16 10/19/16 Daniel Mtoa MD PCP - General Internal Medicine 10/20/16 09/23/19 Ayan Clayton MD [address] [place] [address] PCP - General Internal Medicine 09/24/19 Victor Manuel Gonzales MD PCP - General 12/23/15 07/21/16 documented as of this encounter
--- OUTSIDE RECORDS SUMMARY | 2024-04-30 05:55 | XMS_ITS | Encounter Summary ---
Author Organization [facility] Address [address] [place] [address] Care Team Providers Care Holistic Pulser Name Role Phone Ayan Clayton MD Primary Care Provider [phone] Encounter Details Date Type Department Care Team Description 04/29/2020 Electric Accounting Machine Operator Report Medical Records [address] [place] [address] Abstract, Provider Social History Tobacco Use Types [...] on filedocumented in this encounter Care Teams Holistic Pulser Relationship Specialty Start Date End Date Ayan Clayton MD [address] [place] [id number] PCP - General Internal Medicine 09/24/19 documented as of this encounter
--- OUTSIDE RECORDS SUMMARY | 2024-04-30 05:55 | XMS_ITS | Encounter Summary ---
Author Organization [facility] Address [address] [place] [address] Care Team Providers Care Workers Compensation Legal Secretary Name Role Phone Ayan Clayton MD Primary Care Provider [phone] Reason for Referral * Non CRAIG (Routine) - Authorized/Booked Specialty Diagnoses / Procedures Referred By Contac t Referred To Contact Gastroenterology Procedures REFERRAL TO GASTROENTEROLOGY Ayan Clayton MD [address] [place] [address] Gastro [place]/175 175 [facility] [address] [place] [phone] Referral ID Status Reason Start Date Expiration Date V isits Requested Visits Authorized [id number] Authorized/B ooked 08/18/2020 08/18/2021 1 1 Reason for Visit * Reason Onset Date Comments TEST RESULTS 08/18/2020 Encounter Details Date Type Department Care Team Description 08/18/2020 Pt. Non Urgent Medical Question Adult Medicine [facility] [address] [place] [address] Ayan Clayton MD [address] [place] [address] Constipation, unspecified constipation type (Primary Dx); Hypercalcemia; [...] M.A. - 08/18/2020 12:06 PM EDTFrom: Yanet Kign To: Mason Clayton Sent: 08/18/2020 11:38 AM [...] - 80 ng/mL 08/21/2020 12:39 PM EDT [facility] 08/21/2020 9:22 AM EDT 08/21/2020 9:23 AM EDT Narrative [facility] - 08/21/2020 12:39 PM EDT Release to patient->Immediate Ayan Clayton MD LAB [facility] * (ABNORMAL) COMPREHENSIVE METABOLIC PANEL (08/21/2020 9:22 AM EDT) GLUCOSE 251(H) 70 - 100 mg/dL 08/21/2020 12:33 PM EDT [facility] Comment:Reference range appl icable to fasting specimens only Blood Urea Nitrogen 19 5 - 25 mg/dL 08/21/2020 12:33 PM EDT [facility] CREAT 1.41(H) 0.5 - 1.1 mg/dL 08/21/2020 12:33 PM EDT [facility] GLOMERULAR FILTRATION RATE 38 08/21/2020 12:33 PM EDT [facility] Comment: If patient is -Swiss, multiply result by 1.21 Chronic Kidney Disease: < 60 ml/min/1.73 square meters Kidney Failure: < 15 ml/min/1.73 square meters NA 140 135 - 145 mEq/L 08/21/2020 12:33 PM EDT [facility] K 4.5 3.5 - 5.5 mmol/L 08/21/2020 12:33 PM EDT [facility] CL 108 96 - 110 mmol/L 08/21/2020 12:33 PM EDT [facility] CARBON DIOXIDE (CO2) 28 21 - 32 mmol/L 08/21/2020 12:33 PM EDT [facility] ANION GAP 4 3 - 11 08/21/2020 12:33 PM EDT [facility] CALCIUM 9.7 8.5 - 10.5 mg/dL 08/21/2020 12:33 PM EDT [facility] Albumin 3.6 3.2 - 5.0 G/dL 08/21/2020 12:33 PM EDT [facility] SGPT 23 10 - 60 U/L 08/21/2020 12:33 PM EDT [facility] TOTAL PROTEIN (TP) 7.7 6.0 - 8.0 G/dL 08/21/2020 12:36 PM EDT [facility] BILIRUBIN TOTAL 0.9 0.0 - 1.4 mg/dL 08/21/2020 12:36 PM EDT [facility] SGOT 32 10 - 42 U/L 08/21/2020 12:36 PM EDT [facility] ALK PHOS 444(H) 42 - 121 U/L 08/21/2020 12:36 PM EDT [facility] 08/21/2020 9:22 AM EDT 08/21/2020 9:23 AM EDT Narrative [facility] - 08/21/2020 12:36 PM EDT Release to patient->Immediate Ayan Clayton MD LAB [facility] * (ABNORMAL) PTH INTACT (08/21/2020 9:21 AM EDT) INTACT PTH 16(L) 18 - 88 pg/mL 08/21/2020 12:40 PM EDT [facility] 08/21/2020 9:21 AM EDT 08/21/2020 9:23 AM EDT Narrative [facility] - 08/21/2020 12:40 PM EDT Release to patient->Immediate Ayan Clayton MD LAB Performing Organization Address [facility] Co de Phone Number [facility] documented in this encounter Visit Diagnoses Diagnosis Constipation, unspecified constipation type- Primary Hypercalcemia Decreased GFR Nonspecific abnormal results of kidney function study Elevated alkaline phosphatase level Other nonspecific abnormal serum enzyme levels Elevated alkaline phosphatase level Other nonspecific abnormal serum enzyme levels Hypercalcemia Decreased GFR Nonspecific abnormal results of kidney function study documented in this encounter Care Teams Workers Compensation Legal Secretary Relationship Specialty Start Date End Date Ayan Clayton MD [address] [place] [address] PCP - General Internal Medicine 09/24/19 documented as of this encounter
--- OUTSIDE RECORDS SUMMARY | 2024-04-30 05:55 | XMS_ITS | Encounter Summary ---
Author Organization [facility] Address [address] [place] [address] Care Team Providers Care Copy Reader Name Role Phone Ayan Clayton MD Primary Care Provider [phone] Reason for Visit * Reason Comments E-prescribe Rx Request Encounter Details Date Type Department Care Team Description 05/07/2020 Refill General Surgery - [place] 175 [facility] [address] [place] [address] Torrey Moreno MD [address] [place] [address] [address] [place], [place] [phone] E-prescribe Rx Request Social History Tobacco Use [...] gastrectomy documented in this encounter Care Teams Copy Reader Relationship Specialty Start Date End Date Ayan Clayton MD [address] [place] [address] PCP - General Internal Medicine 09/24/19 documented as of this encounter
--- OUTSIDE RECORDS SUMMARY | 2024-04-30 05:55 | XMS_ITS | Encounter Summary ---
Author Organization [facility] Address [address] [place] [address] Care Team Providers Care Senior Online Marketing Manager Name Role Phone Ayan Clayton MD Primary Care Provider [phone] Reason for Visit * Reason Onset Date Comments Information Needed 10/10/2019 Prior Authorization 10/10/2019 Encounter Details Date Type Department Care Team Description 10/10/2019 Telephone Pulmonology - [place] 175 [facility] [address] [place] [phone] Carlos Hurley MD 175 [facility] [address] [place] [address] Information Needed; Prior Authorization Social History Tobacco Use Types [...] * Telephone Encounter - Marilyn Juan - 10/10/2019 10:35 AM EDT This is a PA for a medication, sent to the correct pool. * Telephone Encounter - Suzanna Behdoyle - 10/10/2019 9:49 AM EDT Miranda called today needs additional clinical information before the prior auth can be done. Please contact Miranda. documented in this encounter Plan of Treatment Not on file documented as of this encounter Visit Diagnoses Not on filedocumented in this encounter Care Teams Senior Online Marketing Manager Relationship Specialty Start Date End Date Ayan Clayton MD [address] [place] [address] PCP - General Internal Medicine 09/24/19 documented as of this encounter
--- OUTSIDE RECORDS SUMMARY | 2024-04-30 05:55 | XMS_ITS | Encounter Summary ---
Author Organization [facility] Address [address] [place] [address] Care Team Providers Care Ball Points Inspector Name Role Phone Daniel Mota MD Primary Care Provider Unavail Victor Manuel Yu MD Primary Care Provider Unava ilable Daniel Mota MD Primary Care Provider Unavail Ayan Pulliam MD Primary Care Provider [phone] Victor Manuel Gonzales MD Primary Care Provider Unava ilmaximino Encounter Details Date Type Department Care Team Description 05/19/2014 Hospital Medical Records [address] [place] [address] Antoinette Quevedo MD [address] [place] [address] Social History Tobacco Use Types Packs/Day Years [...] on filedocumented in this encounter Care Teams Ball Points Inspector Relationship Specialty Start Date End Date Daniel Mota MD PCP - General 07/27/1994 12/22/15 Victor Manuel Gonzales MD PCP - General Internal Medicine 07/22/16 10/19/16 Daniel Mota MD PCP - General Internal Medicine 10/20/16 09/23/19 Ayan Clayton MD [address] [place] [address] PCP - General Internal Medicine 09/24/19 Victor Manuel Gonzales MD PCP - General 12/23/15 07/21/16 documented as of this encounter
--- OUTSIDE RECORDS SUMMARY | 2024-04-30 05:55 | XMS_ITS | Encounter Summary ---
Author Organization [facility] Address [address] [place] [address] Care Team Providers Care Restaurant Greeter Name Role Phone Ayan Clayton MD Primary Care Provider [phone] Reason for Visit * Reason Onset Date Comments Faxed Order 09/09/2020 Encounter Details Date Type Department Care Team Description 09/09/2020 Telephone Adult Medicine [facility] [address] [place] [phone] Ayan Clayton MD [address] [place] [address] [phone] Faxed Order Social History Tobacco Use Types [...] AM EDT More faxed orders received from [employer], placed in Ayan mahmood * Telephone Encounter - Rosa Latham - 09/09/2020 10:23 AM EDT Physician order for Dr. Ayan Clayton's signature documented in this encounter Plan of Treatment Not on file documented as of this encounter Visit Diagnoses Not on filedocumented in this encounter Care Teams Restaurant Greeter Relationship Specialty Start Date End Date Ayan Clayton MD [address] [place] [address] PCP - General Internal Medicine 09/24/19 documented as of this encounter
--- OUTSIDE RECORDS SUMMARY | 2024-04-30 05:55 | XMS_ITS | Encounter Summary ---
Author Organization [facility] Address [address] [place] [address] Care Team Providers Care Primer Press Operator Name Role Phone Daniel Mota MD Primary Care Provider Unavail able Ayan Clayton MD Primary Care Provider [phone] Encounter Details Date Type Department Care Team Description 07/17/2019 Bank Analyst Report Medical Records [address] [place] [address] Ta Garcia MD Social History Tobacco Use [...] on filedocumented in this encounter Care Teams Primer Press Operator Relationship Specialty Start Date End Date Daniel Mota MD PCP - General Internal Medicine 10/20/16 09/23/19 Ayan Clayton MD [address] [place] [address] [phone] PCP - General Internal Medicine 09/24/19 documented as of this encounter
--- OUTSIDE RECORDS SUMMARY | 2024-04-30 05:55 | XMS_ITS | Encounter Summary ---
Author Organization [facility] Address [address] [place] [address] Care Team Providers Care Director Nicu Name Role Phone Ayan Clayton MD Primary Care Provider [phone] Reason for Visit * Reason Onset Date Comments Faxed Order 02/06/2020 Encounter Details Date Type Department Care Team Description 02/06/2020 Telephone Adult Medicine [address] [phone] Ayan Clayton MD [address] [place] [address] [phone] Faxed Order Social History Tobacco Use Types [...] 02/06/2020 2:07 PM EST Faxed order from [facility] documented in this encounter Plan of Treatment Not on file documented as of this encounter Visit Diagnoses Not on filedocumented in this encounter Care Teams Director Nicu Relationship Specialty Start Date End Date Ayan Clayton MD [address] [place] [address] PCP - General Internal Medicine 09/24/19 documented as of this encounter
--- OUTSIDE RECORDS SUMMARY | 2024-04-30 05:55 | XMS_ITS | Encounter Summary ---
Author Organization [facility] Address [address] [place] [address] Care Team Providers Care Mac Developer Name Role Phone Ayan Clayton MD Primary Care Provider [phone] Encounter Details Date Type Department Care Team Description 06/01/2020 Implant Polisher Report Medical Records [address] [place] [address] Abstract, Provider Social History Tobacco Use Types [...] on filedocumented in this encounter Care Teams Mac Developer Relationship Specialty Start Date End Date Ayan Clayton MD [address] [place], [place] [phone] PCP - General Internal Medicine 09/24/19 documented as of this encounter
--- OUTSIDE RECORDS SUMMARY | 2024-04-30 05:55 | XMS_ITS | Encounter Summary ---
Author Organization [facility] Address [address] [place] [address] Care Team Providers Care Manager Payment Name Role Phone Daniel Mota MD Primary Care Provider Unavail able Ayan Clayton MD Primary Care Provider [phone] Encounter Details Date Type Department Care Team Description 04/11/2019 Release of Information Medical Records [address] [place] [address] Abstract, Provider Social History Tobacco Use Types [...] filedocumented in this encounter Care Teams Manager Payment Relationship Specialty Start Date End Date Daniel Mota MD PCP - General Internal Medicine 10/20/16 09/23/19 Ayan Clayton MD [address] [place] [address] PCP - General Internal Medicine 09/24/19 documented as of this encounter
--- OUTSIDE RECORDS SUMMARY | 2024-04-30 05:55 | XMS_ITS | Encounter Summary ---
Author Organization [facility] Address [address] [place] [address] Care Team Providers Care Engineering Program Manager Name Role Phone Daniel Mota MD Primary Care Provider [facility] Ayan Clayton MD Primary Care Provider [phone] Reason for Visit * Reason Comments E-prescribe Rx Request Encounter Details Date Type Department Care Team Description 04/10/2019 Refill General Surgery - [place] 175 [facility] [address] [place] [phone] Torrey Moreno MD [address] [place] [address] [address] [place] [address] E-prescribe Rx Request Social History Tobacco Use [...] on filedocumented in this encounter Care Teams Engineering Program Manager Relationship Specialty Start Date End Date Daniel Mota MD PCP - General Internal Medicine 10/20/16 09/23/19 Ayan Clayton MD [address] [place] [address] PCP - General Internal Medicine 09/24/19 documented as of this encounter
--- OUTSIDE RECORDS SUMMARY | 2024-04-30 05:55 | XMS_ITS | Encounter Summary ---
Author Organization [facility] Address [address] [place] [address] Care Team Providers Care Senior Stereo Compiler Team Lead Name Role Phone Ayan Clayton MD Primary Care Provider [phone] Reason for Visit * Reason Onset Date Comments Faxed Order 12/06/2019 Encounter Details Date Type Department Care Team Description 12/06/2019 Telephone Adult Medicine [facility] [address] [place] [address] [phone] Ayan Clayton MD [address] [place] [address] [phone] Faxed Order Social History Tobacco Use Types [...] pass this call to me at EX [phone] Thank you * Telephone Encounter - Mela Benton R.N. - 12/09/2019 10:21 AM EDT We need a face to face for [facility]NA. Last visit 11/20 * Telephone Encounter - Noemi Sanders - 12/09/2019 10:10 AM EDT [facility] needs face to face faxed to him today Phone [phone] * Telephone Encounter - Tara Roe - 12/06/2019 2:16 PM EDT FAXED IN DR [facility]AN[employer] [employer] AND TO BE FAXED BACK TO [phone] documented in this encounter Plan of Treatment Not on file documented as of this encounter Visit Diagnoses Not on filedocumented in this encounter Care Teams Senior Stereo Compiler Team Lead Relationship Specialty Start Date End Date Ayan Clayton MD [address] [place] [address] PCP - General Internal Medicine 09/24/19 documented as of this encounter
--- OUTSIDE RECORDS SUMMARY | 2024-04-30 05:55 | XMS_ITS | Encounter Summary ---
Author Organization [facility] Address [address] [place] [address] Care Team Providers Care Powder Compounder Name Role Phone Ayan Clayton MD Primary Care Provider [phone] Reason for Visit * Reason Onset Date Comments Provider Call Back 03/18/2020 Encounter Details Date Type Department Care Team Description 03/18/2020 Telephone Adult Medicine [facility] [address] [place] [address] Ayan Clayton MD [address] [place] [address] Provider Call Back Social History Tobacco Use [...] callers name? Angie Callers relationship to patient? EDUCATIONAL THERAPIST If person calling is not the patient [...] on filedocumented in this encounter Care Teams Powder Compounder Relationship Specialty Start Date End Date Ayan Clayton MD [address] [place] [address] PCP - General Internal Medicine 09/24/19 documented as of this encounter
--- OUTSIDE RECORDS SUMMARY | 2024-04-30 05:55 | XMS_ITS | Encounter Summary ---
Author Organization [facility] Address [address] [place] [address] Care Team Providers Care Library Science Instructor Name Role Phone Daniel Mota MD Primary Care Provider [facility] Ayan Clayton MD Primary Care Provider [phone] Reason for Visit * Reason Comments E-prescribe Rx Request Encounter Details Date Type Department Care Team Description 07/10/2019 Refill General Surgery - [place] [address] [facility] [address] [place] [id number] Torrey Moreno MD [address] [place] [address] [address] [place] [address] E-prescribe Rx Request Social History Tobacco Use [...] on filedocumented in this encounter Care Teams Library Science Instructor Relationship Specialty Start Date End Date Daniel Mota MD PCP - General Internal Medicine 10/20/16 09/23/19 Ayan Clayton MD [address] [place] [address] PCP - General Internal Medicine 09/24/19 documented as of this encounter
--- OUTSIDE RECORDS SUMMARY | 2024-04-30 05:55 | XMS_ITS | Encounter Summary ---
Author Organization [facility] Address [address] [place] [address] Care Team Providers Care Outpatient Physical Therapist Name Role Phone Ayan Clayton MD Primary Care Provider [phone] Reason for Visit * Reason Onset Date Comments Bariatric Weight Check 07/29/2020 Encounter Details Date Type Department Care Team Description 07/29/2020 Telephone General Surgery - [address] [place] [address] Liana Churchill, ,RDN,LDN Bariatric Weight [...] on filedocumented in this encounter Care Teams Outpatient Physical Therapist Relationship Specialty Start Date End Date Ayan Clayton MD [address] [place] [address] PCP - General Internal Medicine 09/24/19 documented as of this encounter
--- OUTSIDE RECORDS SUMMARY | 2024-04-30 05:55 | XMS_ITS | Encounter Summary ---
Author Organization [facility] Address [address] [place] [address] Care Team Providers Care Heel Scorer Name Role Phone Daniel Mota MD Primary Care Provider Unavail Victor Manuel Yu MD Primary Care Provider Unava ilable Daniel Mota MD Primary Care Provider Unavail Ayan Pulliam MD Primary Care Provider [phone] Victor Manuel Gonzales MD Primary Care Provider Candida puri Encounter Details Date Type Department Care Team Description 01/26/2015 [facility] Medical Records [address] [place], [place] [id number] [place] [address] Social History Tobacco Use Types Packs/Day Years [...] on filedocumented in this encounter Care Teams Heel Scorer Relationship Specialty Start Date End Date Daniel Mota MD PCP - General 07/27/1994 12/22/15 Victor Manuel Gonzales MD PCP - General Internal Medicine 07/22/16 10/19/16 Daniel Mota MD PCP - General Internal Medicine 10/20/16 09/23/19 Ayan Clayton MD [address] [place] [address] PCP - General Internal Medicine 09/24/19 Victor Manuel Gonzales MD PCP - General 12/23/15 07/21/16 documented as of this encounter
--- OUTSIDE RECORDS SUMMARY | 2024-04-30 05:55 | XMS_ITS | Encounter Summary ---
Author Organization [facility] Address [address] [place] [address] Care Team Providers Care Can Tender Name Role Phone Ayan Clayton MD Primary Care Provider [phone] Encounter Details Date Type Department Care Team Description 05/15/2020 Triple Valve Tester Report Medical Records [address] [place] [address] [facility] Social History Tobacco Use Types Packs/Day [...] filedocumented in this encounter Care Teams Can Tender Relationship Specialty Start Date End Date Ayan Clayton MD [address] [place], [place] [phone] PCP - General Internal Medicine 09/24/19 documented as of this encounter
--- OUTSIDE RECORDS SUMMARY | 2024-04-30 05:55 | XMS_ITS | Encounter Summary ---
Author Organization [facility] Address [address] [place] [address] Care Team Providers Care Aprn Name Role Phone Daniel Mota MD Primary Care Provider Unavail able Ayan Clayton MD Primary Care Provider Encounter Details Date Type Department Care Team Description 04/15/2019 Submarine Worker Report Medical Records [address] [place] [address] Bharath Block PA-C Social History Tobacco Use [...] on filedocumented in this encounter Care Teams Aprn Relationship Specialty Start Date End Date Daniel Mota MD PCP - General Internal Medicine 10/20/16 09/23/19 Ayan Clayton MD [address] [place], [place] [phone] PCP - General Internal Medicine 09/24/19 documented as of this encounter
--- OUTSIDE RECORDS SUMMARY | 2024-04-30 05:55 | XMS_ITS | Encounter Summary ---
Author Organization [facility] Address [address] [place] [address] Care Team Providers Care Bag Presser Name Role Phone Daniel Mota MD Primary Care Provider Unavail able Ayan Clayton MD Primary Care Provider [phone] Encounter Details Date Type Department Care Team Description 03/07/2019 Extrusion Press Operator Report Medical Records [address] Social History Tobacco Use Types Packs/Day [...] on filedocumented in this encounter Care Teams Bag Presser Relationship Specialty Start Date End Date Daniel Mota MD PCP - General Internal Medicine 10/20/16 09/23/19 Ayan Clayton MD [address] [place] [address] PCP - General Internal Medicine 09/24/19 documented as of this encounter
--- OUTSIDE RECORDS SUMMARY | 2024-04-30 05:55 | XMS_ITS | Encounter Summary ---
Author Organization [facility] Address [address] [place] [address] Care Team Providers Care Braid Pattern Setter Name Role Phone Ayan Clayton MD Primary Care Provider [phone] Reason for Visit * Reason Onset Date Comments Faxed Order 01/28/2020 Encounter Details Date Type Department Care Team Description 01/28/2020 Telephone Adult Medicine [facility] [address] [place] [address] [phone] Ayan Clayton MD [address] [place] [address] [phone] Faxed Order Social History Tobacco Use Types [...] on filedocumented in this encounter Care Teams Braid Pattern Setter Relationship Specialty Start Date End Date Ayan Clayton MD [address] [place] [address] PCP - General Internal Medicine 09/24/19 documented as of this encounter
--- OUTSIDE RECORDS SUMMARY | 2024-04-30 05:55 | XMS_ITS | Encounter Summary ---
Author Organization [facility] Address [address] [place] [address] Care Team Providers Care Electrical Linesworker Name Role Phone Ayan Clayton MD Primary Care Provider [phone] Encounter Details Date Type Department Care Team Description 11/08/2019 Hospital Medical Records [address] [place] [address] [facility] Medical Social History Tobacco Use Types [...] filedocumented in this encounter Care Teams Electrical Linesworker Relationship Specialty Start Date End Date Ayan Clayton MD [address] [place], [place] [phone] PCP - General Internal Medicine 09/24/19 documented as of this encounter
--- OUTSIDE RECORDS SUMMARY | 2024-04-30 05:55 | XMS_ITS | Encounter Summary ---
Author Organization [facility] Address [address] [place] [address] Care Team Providers Care Apiculture Teacher Name Role Phone Ayan Clayton MD Primary Care Provider [phone] Encounter Details Date Type Department Care Team Description 01/23/2020 Biometrics Technician Report Medical Records [address] [place] [address] [facility] Medical Social History Tobacco Use Types [...] on filedocumented in this encounter Care Teams Apiculture Teacher Relationship Specialty Start Date End Date Ayan Clayton MD [address] [place], [place] [phone] PCP - General Internal Medicine 09/24/19 documented as of this encounter
--- OUTSIDE RECORDS SUMMARY | 2024-04-30 05:55 | XMS_ITS | Encounter Summary ---
Author Organization [facility] Address [address] [place] [address] Care Team Providers Care Wire Annealer Name Role Phone Daniel Mota MD Primary Care Provider Unavail able Ayan Clayton MD Primary Care Provider [phone] Encounter Details Date Type Department Care Team Description 03/06/2019 Bank Guard Report Medical Records [address] [place] [address] Ta Garcia MD Social History Tobacco Use [...] filedocumented in this encounter Care Teams Wire Annealer Relationship Specialty Start Date End Date Daniel Mota MD PCP - General Internal Medicine 10/20/16 09/23/19 Ayan Clayton MD [address] [place], [place] [phone] PCP - General Internal Medicine 09/24/19 documented as of this encounter
--- OUTSIDE RECORDS SUMMARY | 2024-04-30 05:55 | XMS_ITS | Encounter Summary ---
Author Organization [facility] Address [address] [place] [address] Care Team Providers Care Lacquer Pin Press Operator Name Role Phone Ayan Clayton MD Primary Care Provider [phone] Reason for Visit * Reason Comments E-prescribe Rx Request Encounter Details Date Type Department Care Team Description 10/24/[facility] [place] [address] [facility] [address] [place] [phone] Torrey Moreno MD [address] [place] [address] DRIVE [address] [place] [address] E-prescribe Rx Request Social History Tobacco Use [...] gastrectomy documented in this encounter Care Teams Lacquer Pin Press Operator Relationship Specialty Start Date End Date Ayan Clayton MD [address] [place] [address] [phone] PCP - General Internal Medicine 09/24/19 documented as of this encounter
--- OUTSIDE RECORDS SUMMARY | 2024-04-30 05:55 | XMS_ITS | Encounter Summary ---
Author Organization [facility] Address [address] [place] [address] Care Team Providers Care Operations Administrator Name Role Phone Daniel Mota MD Primary Care Provider Unavail able Ayan Clayton MD Primary Care Provider Encounter Details Date Type Department Care Team Description 04/10/2019 Ventilating Engineer Report Medical Records [address] [place] [address] Ta Garcia MD Social History Tobacco Use [...] on filedocumented in this encounter Care Teams Operations Administrator Relationship Specialty Start Date End Date Daniel Mota MD PCP - General Internal Medicine 10/20/16 09/23/19 Ayan Clayton MD [address] [place] [address] [phone] PCP - General Internal Medicine 09/24/19 documented as of this encounter
--- OUTSIDE RECORDS SUMMARY | 2024-04-30 05:55 | XMS_ITS | Encounter Summary ---
Author Organization [facility] Address [address] [place] [address] Care Team Providers Care Network Strategist Name Role Phone Daniel Mota MD Primary Care Provider Unavail Victor Manuel Yu MD Primary Care Provider Unava ilable Daniel Mota MD Primary Care Provider Unavail Ayan Pulliam MD Primary Care Provider [phone] Victor Manuel Gonzales MD Primary Care Provider Unava ilable Reason for Visit * Reason Comments Encounter Details Date Type Department Care Team Description 11/18/2015 Telephone Podiatry - [place] [address] [place] [address] Skylar Hanna DPM Social History Tobacco Use [...] filedocumented in this encounter Care Teams Network Strategist Relationship Specialty Start Date End Date Daniel Mota MD PCP - General 07/27/1994 12/22/15 Victor Manuel Gonzales MD PCP - General Internal Medicine 07/22/16 10/19/16 Daniel Mota MD PCP - General Internal Medicine 10/20/16 09/23/19 Ayan Clayton MD [address] [place] [address] PCP - General Internal Medicine 09/24/19 Victor Manuel Gonzales MD PCP - General 12/23/15 07/21/16 documented as of this encounter
--- OUTSIDE RECORDS SUMMARY | 2024-04-30 05:55 | XMS_ITS | Encounter Summary ---
Author Organization [facility] Address [address] [place] [address] Care Team Providers Care Service Captain Name Role Phone Daniel Mota MD Primary Care Provider [facility] Ayan Pulliam MD Primary Care Provider [phone] Reason for Visit * Reason Onset Date Comments Prior Authorization 05/21/2019 Encounter Details Date Type Department Care Team Description 05/21/2019 Telephone Adult Medicine [address] [address] Daniel Mota MD Prior Authorization Social History [...] AM EDT Spoke with Ashely romero [facility] who stated that p.a. For the jeronimo is through [facility]. Shestated that they faxed it over to them. Called and spoke with Eladio who stated that the jeronimo and its supplies were approved . Approved from 05/31/2019 until 05/30/2020 Authorization number # [id number] * Telephone Encounter - Susan Gutierrez M.A. [...] What Pharmacy did the fax come from: [facility] Pharmacy fax #: [phone] [employer] Party Information from fax: What Prescription Plan does the patient have? BIN/PCN if applicable: Cardholder ID: Person Code: Relationship Code: Help desk phone: [phone] documented in this encounter Plan of Treatment Not on file documented as of this encounter Visit Diagnoses Not on filedocumented in this encounter Care Teams Service Captain Relationship Specialty Start Date End Date Daniel Mota MD PCP - General Internal Medicine 10/20/16 09/23/19 Ayan Clayton MD [address] [place] [address] PCP - General Internal Medicine 09/24/19 documented as of this encounter
--- OUTSIDE RECORDS SUMMARY | 2024-04-30 05:55 | XMS_ITS | Encounter Summary ---
Author Organization [facility] Address [address] [place] [address] Care Team Providers Care Qa Automation Architect Name Role Phone Ayan Clayton MD Primary Care Provider [phone] Reason for Visit * Reason Comments E-prescribe Rx Request Encounter Details Date Type Department Care Team Description 02/24/2020 Refill Adult Medicine [facility] [address] [place], [place] [phone] Ayan Clayton MD [address] [place] [address] [phone] E-prescribe Rx Request Social History Tobacco Use [...] encounter Miscellaneous Notes * Telephone Encounter - Marva Rowell - 02/25/2020 8:42 AM EST Script sent to pharmacy as requested. * Telephone Encounter - Maria L Mc M.A. - 02/24/2020 3:56 PM EST Lab Results Component Value Date NA 141 11/19/2019 K 4.0 11/19/2019 CO2 23 11/19/2019 CL 109 11/19/2019 BUN 15 11/19/2019 CREAT 0.72 11/19/2019 GLU 95 11/19/2019 CA 9.7 11/19/2019 GFR > 60 11/19/2019 * Telephone Encounter - Tiffany Velásquez - 02/24/2020 9:05 AM EST Patient would like script to be: E-PRESCRIBED/FAXED TO PHARMACY ?? WHEN WAS THE PATIENT'S LAST APPOINTMENT IN ADULT MEDICINE? 11/21/2019 ?? WHEN WAS THE LAST TIME THE PATIENT SAW THEIR PCP? Same as above ?? Does patient have an upcoming appointment? Yes 04/02/2020 ?? (THE MEDICATION REQUESTED IS ON THE MED LIST ABOVE) All of the medications requested were on the CURRENT MEDS list ?? Did you check the Pharmacy information above?: YES ?? Patient wants: 30 -day supply ?? Is this a mail order prescription request ? NO ?? If the refill is from a FAXED refill request what is the RX # listed on the fax? N/A ?? Patients current insurance carrier is: Payor: [email or web address] / Plan: [facility] / Product Type: HMO [id number] ?? 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
--- OUTSIDE RECORDS SUMMARY | 2024-04-30 05:55 | XMS_ITS | Encounter Summary ---
Author Organization [facility] Address [address] [place] [address] Care Team Providers Care Pourer Buggy Ladle Name Role Phone Daniel Mota MD Primary Care Provider Unavail able Ayan Clayton MD Primary Care Provider [phone] Encounter Details Date Type Department Care Team Description 04/23/2019 Mobile Unit Assistant Report Medical Records [address] [place] [address] Bharath Block PA-C Social History Tobacco Use [...] on filedocumented in this encounter Care Teams Pourer Buggy Ladle Relationship Specialty Start Date End Date Daniel Mota MD PCP - General Internal Medicine 10/20/16 09/23/19 Ayan Clayton MD [address] [place], [place] [phone] PCP - General Internal Medicine 09/24/19 documented as of this encounter
--- OUTSIDE RECORDS SUMMARY | 2024-04-30 05:55 | XMS_ITS | Encounter Summary ---
Author Organization [facility] Address [address] [place] [address] Care Team Providers Care Truck Driving Name Role Phone Daniel Mota MD Primary Care Provider Unavail able Ayan Clayton MD Primary Care Provider [phone] Encounter Details Date Type Department Care Team Description 05/07/2019 Paper Products Machine Operator Report Medical Records [address] [place] [address] Ta Garcia MD Social History Tobacco Use [...] filedocumented in this encounter Care Teams Truck Driving Relationship Specialty Start Date End Date Daniel Mota MD PCP - General Internal Medicine 10/20/16 09/23/19 Ayan Clayton MD [address] [place] [address] [phone] PCP - General Internal Medicine 09/24/19 documented as of this encounter
--- OUTSIDE RECORDS SUMMARY | 2024-04-30 05:55 | XMS_ITS | Encounter Summary ---
Author Organization [facility] Address [address] [place] [address] Care Team Providers Care Dish Machine Operator Name Role Phone Ayan Clayton MD Primary Care Provider [phone] Encounter Details Date Type Department Care Team Description 03/02/2020 Truckload Checker Report Medical Records [address] [place] [address] [facility] Social History Tobacco Use Types Packs/Day [...] on filedocumented in this encounter Care Teams Dish Machine Operator Relationship Specialty Start Date End Date Ayan Clayton MD [address] [place], [place] [phone] PCP - General Internal Medicine 09/24/19 documented as of this encounter
--- OUTSIDE RECORDS SUMMARY | 2024-04-30 05:56 | XMS_ITS | Encounter Summary ---
Author Organization [facility] Address [address] [place] [address] Care Team Providers Care Home Care Liaison Name Role Phone Ayan Clayton MD Primary Care Provider [phone] Encounter Details Date Type Department Care Team Description 03/11/2021 Rake Operator Report Medical Records [address] [place] [address] Skylar Hanna DPM Social History Tobacco Use [...] on filedocumented in this encounter Care Teams Home Care Liaison Relationship Specialty Start Date End Date Ayan Clayton MD [address] [place], [place] [phone] PCP - General Internal Medicine 09/24/19 documented as of this encounter
--- OUTSIDE RECORDS SUMMARY | 2024-04-30 05:56 | XMS_ITS | Encounter Summary ---
Author Organization [facility] Address [address] [place] [address] Care Team Providers Care Chro Name Role Phone Ayan Clayton MD Primary Care Provider [phone] Encounter Details Date Type Department Care Team Description 02/27/2023 Administrative Officer Report Medical Records [address] [place] [address] Fernie Ruiz MD Social History Tobacco Use [...] on filedocumented in this encounter Care Teams Chro Relationship Specialty Start Date End Date Ayan Clayton MD [address] [place] [address] PCP - General Internal Medicine 09/24/19 documented as of this encounter
--- OUTSIDE RECORDS SUMMARY | 2024-04-30 05:56 | XMS_ITS | Encounter Summary ---
Author Organization [facility] Address [address] [place] [address] Care Team Providers Care Wafer Fab Technician Name Role Phone Daniel Mota MD Primary Care Provider Unavail able Ayan Clayton MD Primary Care Provider [phone] Encounter Details Date Type Department Care Team Description 01/26/2017 Offset Lithographic Press Operator Report Medical Records [address] [place] [address] Abstract, Provider Social History Tobacco Use Types [...] on filedocumented in this encounter Care Teams Wafer Fab Technician Relationship Specialty Start Date End Date Daniel Mota MD PCP - General Internal Medicine 10/20/16 09/23/19 Ayan Clayton MD [address] [place] [address] [phone] PCP - General Internal Medicine 09/24/19 documented as of this encounter
--- OUTSIDE RECORDS SUMMARY | 2024-04-30 05:56 | XMS_ITS | Encounter Summary ---
Author Organization [facility] Address [address] [place] [address] Care Team Providers Care Marine Equipment Research Engineer Name Role Phone Ayan Clayton MD Primary Care Provider [phone] Encounter Details Date Type Department Care Team Description 12/08/2022 Business Doc Medical Records [address] [place] [address] Abstract, Provider Social History Tobacco Use Types [...] filedocumented in this encounter Care Teams Marine Equipment Research Engineer Relationship Specialty Start Date End Date Ayan Clayton MD [address] [place], [place] [phone] PCP - General Internal Medicine 09/24/19 documented as of this encounter
--- OUTSIDE RECORDS SUMMARY | 2024-04-30 05:56 | XMS_ITS | Encounter Summary ---
Author Organization [facility] Address [address] [place] [address] Care Team Providers Care Hourly Team Members Name Role Phone Daniel Mota MD Primary Care Provider Unavail [facility] Ayan Clayton MD Primary Care Provider [phone] Encounter Details Date Type Department Care Team Description 03/03/2017 Cadastral Engineer Report Medical Records [address] [place] [address] Lida Renae PA-C [address] [place] [phone] Social History Tobacco Use Types Packs/Day [...] on filedocumented in this encounter Care Teams Hourly Team Members Relationship Specialty Start Date End Date Daniel Mota MD PCP - General Internal Medicine 10/20/16 09/23/19 Ayan Clayton MD [address] [place] [address] PCP - General Internal Medicine 09/24/19 documented as of this encounter
--- OUTSIDE RECORDS SUMMARY | 2024-04-30 05:56 | XMS_ITS | Encounter Summary ---
Author Organization [facility] Address [address] [place] [address] Care Team Providers Care Refractory Products Supervisor Name Role Phone Ayan Clayton MD Primary Care Provider [phone] Encounter Details Date Type Department Care Team Description 03/26/2023 Commercial Diver Report Medical Records [address] [place] [address] [facility] [address] [place] [address] Social History Tobacco Use Types Packs/Day Years [...] on filedocumented in this encounter Care Teams Refractory Products Supervisor Relationship Specialty Start Date End Date Ayan Clayton MD [address] [place], [place] [phone] PCP - General Internal Medicine 09/24/19 documented as of this encounter
--- OUTSIDE RECORDS SUMMARY | 2024-04-30 05:56 | XMS_ITS | Encounter Summary ---
Author Organization [facility] Address [address] [place] [address] Care Team Providers Care Assistant Athletic Trainer Name Role Phone Victor Manuel Gonzales MD Primary Care Provider Daniel Longoria MD Primary Care Provider [facility] able Ayan Clayton MD Primary Care Provider [phone] Victor Manuel Gonzales MD Primary Care Provider Candida puri Encounter Details Date Type Department Care Team Description 01/18/2016 Release of Information Medical Records [address] [place] [address] Abstract, Provider Social History Tobacco Use Types [...] filedocumented in this encounter Care Teams Assistant Athletic Trainer Relationship Specialty Start Date End Date Victor Manuel Gonzales MD PCP - General Internal Medicine 07/22/16 10/19/16 Daniel Mota MD PCP - General Internal Medicine 10/20/16 09/23/19 Ayan Clayton MD [address] [place] [address] PCP - General Internal Medicine 09/24/19 Victor Manuel Gonzales MD PCP - General 12/23/15 07/21/16 documented as of this encounter
--- OUTSIDE RECORDS SUMMARY | 2024-04-30 05:56 | XMS_ITS | Encounter Summary ---
Author Organization [facility] Address [address] [place] [address] Care Team Providers Care Racetrack Steward Name Role Phone Victor Manuel Gonzales MD Primary Care Provider Daniel Longoria MD Primary Care Provider [facility] Ayan Clayton MD Primary Care Provider [phone] Encounter Details Date Type Department Care Team Description 09/09/2016 Business Doc Medical Records [address] [place] [address] Abstract, Provider Social History Tobacco Use Types [...] on filedocumented in this encounter Care Teams Racetrack Steward Relationship Specialty Start Date End Date Victor Manuel Gonzales MD PCP - General Internal Medicine 07/22/16 10/19/16 Daniel Mota MD PCP - General Internal Medicine 10/20/16 09/23/19 Ayan Clayton MD [address] [place] [address] PCP - General Internal Medicine 09/24/19 documented as of this encounter
--- OUTSIDE RECORDS SUMMARY | 2024-04-30 05:56 | XMS_ITS | Encounter Summary ---
Author Organization [facility] Address [address] [place] [address] Care Team Providers Care Media Analytics Manager Name Role Phone Victor Manuel Gonzales MD Primary Care Provider Daniel Longoria MD Primary Care Provider [facility] Ayan Clayton MD Primary Care Provider [phone] Encounter Details Date Type Department Care Team Description 09/05/2016 Business Doc Medical Records [address] [place] [address] Abstract, Provider Social History Tobacco Use Types [...] on filedocumented in this encounter Care Teams Media Analytics Manager Relationship Specialty Start Date End Date Victor Manuel Gonzales MD PCP - General Internal Medicine 07/22/16 10/19/16 Daniel Mota MD PCP - General Internal Medicine 10/20/16 09/23/19 Ayan Clayton MD [address] [place] [address] PCP - General Internal Medicine 09/24/19 documented as of this encounter
--- OUTSIDE RECORDS SUMMARY | 2024-04-30 05:56 | XMS_ITS | Encounter Summary ---
Author Organization [facility] Address [address] [place] [address] Care Team Providers Care Typesetting Supervisor Name Role Phone Ayan Clayton MD Primary Care Provider [phone] Encounter Details Date Type Department Care Team Description 06/22/2020 Summer Internship Report Medical Records [address] [place] [address] Abstract, Provider Social History Tobacco Use Types [...] on filedocumented in this encounter Care Teams Typesetting Supervisor Relationship Specialty Start Date End Date Ayan Clayton MD [address] [place], [place] [phone] PCP - General Internal Medicine 09/24/19 documented as of this encounter
--- OUTSIDE RECORDS SUMMARY | 2024-04-30 05:56 | XMS_ITS | Encounter Summary ---
Author Organization [facility] Address [address] [place] [address] Care Team Providers Care Physicians Assistant Name Role Phone Ayan Clayton MD Primary Care Provider [phone] Encounter Details Date Type Department Care Team Description 05/07/2021 Orders Only Endocrinology - [address] [address] Juan Alberto Kendall MD [address] [place], [place] [id number] Social History Tobacco Use Types Packs/Day Years [...] have Coronavirus / COVID-19? No / Unsure 05/07/2021 3:22 PM EST documented as of this encounter Plan of Treatment Not on file documented as of this encounter Visit Diagnoses Not on filedocumented in this encounter Care Teams Physicians Assistant Relationship Specialty Start Date End Date Ayan Clayton MD [address] [place] [address] PCP - General Internal Medicine 09/24/19 documented as of this encounter
--- OUTSIDE RECORDS SUMMARY | 2024-04-30 05:56 | XMS_ITS | Encounter Summary ---
Author Organization [facility] Address [address] [place] [address] Care Team Providers Care Automobile Service Station Manager Name Role Phone Daniel Mota MD Primary Care Provider Unavail Victor Manuel Yu MD Primary Care Provider Unava ilable Daniel Mota MD Primary Care Provider Unavail Ayan Pulliam MD Primary Care Provider [phone] Victor Manuel Gonzales MD Primary Care Provider Unava ilmaximino Encounter Details Date Type Department Care Team Description 08/24/2010 Offal Roller Report Medical Records [address] [place] [address] SaltersMichelle [address] [place] [address] Social History Tobacco Use Types Packs/Day Years [...] filedocumented in this encounter Care Teams Automobile Service Station Manager Relationship Specialty Start Date End Date Daniel Mota MD PCP - General 07/27/1994 12/22/15 Victor Manuel Gonzales MD PCP - General Internal Medicine 07/22/16 10/19/16 Daniel Mota MD PCP - General Internal Medicine 10/20/16 09/23/19 Ayan Clayton MD [address] [place] [address] PCP - General Internal Medicine 09/24/19 Victor Manuel Gonzales MD PCP - General 12/23/15 07/21/16 documented as of this encounter
--- OUTSIDE RECORDS SUMMARY | 2024-04-30 05:56 | XMS_ITS | Clinical Summary ---
Author Organization [facility] Address [address] [place] [address] Phone Care Team Providers Care Product Distribution Specialist Name Role Phone Unavailable Primary Care [...] salmon (MIACALCIN) 200 unit/actuation nasal spray 1 [place] by Alternating Nares route daily. 06/29/2023 Active [...] Care Team Description 04/04/2024 Telephone Adult Medicine [facility] [address] [place] [address] Ayan Clayton MD Pre-op Exam 03/15/2024 Telephone Lung Screening Program - [place] 299 [facility] [address] [place] [phone] Jyoti Mackay [place] Appointment (No longer qualifies for screening) 02/20/2024 10:45 AM EST Office Visit Bariatric Surgery - [place] 175 [facility] [address] [place] [phone] Torrey Moreno MD Intestinal malabsorption following gastrectomy [...] 8:50 AM EDT Office Visit Pulmonolgy - [place] 175 [facility] [address] [place] [phone] Jil Freeman NP 175 [facility] Kevin [address] [place] [address] 08/30/2024 10:00 AM EDT Appointment Radiology Department - [address] [address] 12/05/2024 3:45 PM EDT Office Visit Nephrology [facility] [address] [place] [address] Vega Navarro MD [address] [facility] [address] [place] [phone] 02/04/2025 9:00 AM EST Office Visit Bariatric Surgery - [place] [address] [facility] [address] [place] [phone] Torrey Moreno MD 175 [facility] [address] [place] [address] Health Maintenance Due Date Last Done Comments [...] * Urine Albumin Creatinine Ratio (06/29/2023) Pathologist [facility] Urine Albumin Creatinine Ratio ABSTRACTED Historical Provider [facility] Annual BMP Blood Test (06/29/2023) [facility] Annual BMP Blood Test ABSTRACTED Historical Provider [facility] * Hemoglobin A1c (06/29/2023) [facility] Hemoglobin A1C 5.2 6.5 % Blood Venous blood specimen / Unknown Historical Provider LAB BLOOD ORDERAB LES * Lipid panel (06/29/2023) [facility] LDL/HDL Ratio 2 0 - 4 Triglycerides 142 0 - 150 mg/dL Cholesterol 172 0 - 200 mg/dL HDL 79 40 mg/dL LDL Cholesterol 65 0 - 100 mg/dL Blood Venous blood specimen / Unknown Historical Provider LAB BLOOD ORDERAB LES * Diabetes Foot Exam (04/10/2023) [facility] Diabetes: Annual Foot Exam ABSTRACTED Historical [...] bone mineral density by WHO criteria. [facility] Department of Internal Medicine recommends using [...] alternative screening schedule based on albert Kincaid., [facility] April 14, 2011 for patients with osteopenia [...] bone mineral density by WHO criteria. [facility] Department of Internal Medicine recommendsusing National [...] RES * Cervical Cancer Screening: HPV (04/28/2021) [facility] Cervical Cancer Screening: HPV negative,a bstracted Historical Provider [facility] * Colonoscopy (02/16/2021) [facility] Colonoscopy no interpretation , abstracted Anatomical Region Laterality Modality Other Historical Provider [facility] * Hepatitis C Screening (12/07/2020) [facility] Hepatitis C Screening ABSTRACTED Historical Provider [facility] from Last 3 Months or Most Recently Relevant to Health Maintenance Advance Directives Documents on File Type Date Recorded Patient Reproductive Endocrinologist Expl anation Health Care Decision (hx) 05/19/2014 [...]
--- OUTSIDE RECORDS SUMMARY | 2024-04-30 05:56 | XMS_ITS | Encounter Summary ---
Author Organization [facility] Address [address] [place] [address] Care Team Providers Care Tennis Racket Repairer Name Role Phone Ayan Clayton MD Primary Care Provider [phone] Encounter Details Date Type Department Care Team Description 04/21/2021 Solution Maker Report Medical Records [address] [place] [address] Skylar Hanna DPM Social History Tobacco Use [...] have Coronavirus / COVID-19? No / Unsure 04/22/2021 11:02 AM EST documented as of this encounter Plan of Treatment Not on file documented as of this encounter Visit Diagnoses Not on filedocumented in this encounter Care Teams Tennis Racket Repairer Relationship Specialty Start Date End Date Ayan Clayton MD [address] [place], [place] [phone] PCP - General Internal Medicine 09/24/19 documented as of this encounter
--- OUTSIDE RECORDS SUMMARY | 2024-04-30 05:56 | XMS_ITS | Encounter Summary ---
Author Organization [facility] Address [address] [place] [address] Care Team Providers Care Milk Wagon Driver Name Role Phone Daniel Mota MD Primary Care Provider Unavail able Ayan Clatyon MD Primary Care Provider [phone] Encounter Details Date Type Department Care Team Description 03/05/2018 Prepress Technician Report Medical Records [address] Social History Tobacco Use Types Packs/Day [...] on filedocumented in this encounter Care Teams Milk Wagon Driver Relationship Specialty Start Date End Date Daniel Mota MD PCP - General Internal Medicine 10/20/16 09/23/19 Ayan Clayton MD [address] [place] [address] PCP - General Internal Medicine 09/24/19 documented as of this encounter
--- OUTSIDE RECORDS SUMMARY | 2024-04-30 05:56 | XMS_ITS | Encounter Summary ---
Author Organization [facility] Address [address] [place] [address] Care Team Providers Care Merchandise Appraiser Name Role Phone Daniel Mota MD Primary Care Provider Unavail Victor Manuel Yu MD Primary Care Provider Unava ilable Daniel Mota MD Primary Care Provider Unavail Ayan Pulliam MD Primary Care Provider [phone] Victor Manuel Gonzales MD Primary Care Provider Unava ilmaximino Encounter Details Date Type Department Care Team Description 10/13/2010 Fiber Artist Report Medical Records [address] [place] [address] Marcela Singh [address] [place] [address] Social History Tobacco Use Types Packs/Day Years [...] on filedocumented in this encounter Care Teams Merchandise Appraiser Relationship Specialty Start Date End Date Daniel Mota MD PCP - General 07/27/1994 12/22/15 Victor Manuel Gonzales MD PCP - General Internal Medicine 07/22/16 10/19/16 Daniel Mota MD PCP - General Internal Medicine 10/20/16 09/23/19 Ayan Clayton MD [address] [place] [address] PCP - General Internal Medicine 09/24/19 Victor Manuel Gonzales MD PCP - General 12/23/15 07/21/16 documented as of this encounter
--- OUTSIDE RECORDS SUMMARY | 2024-04-30 05:56 | XMS_ITS | Encounter Summary ---
Author Organization [facility] Address [address] [place] [address] Care Team Providers Care Photovoltaic Solar Cell Designer Name Role Phone Ayan Clayton MD Primary Care Provider [phone] Encounter Details Date Type Department Care Team Description 11/02/2022 Cook Enchilada Report Medical Records [address] [place] [address] Abstract, Provider Social History Tobacco Use Types [...] on filedocumented in this encounter Care Teams Photovoltaic Solar Cell Designer Relationship Specialty Start Date End Date Ayan Clayton MD [address] [place], [place] [phone] PCP - General Internal Medicine 09/24/19 documented as of this encounter
--- OUTSIDE RECORDS SUMMARY | 2024-04-30 05:56 | XMS_ITS | Encounter Summary ---
Author Organization [facility] Address [address] [place] [address] Care Team Providers Care Bus Girl Name Role Phone Daniel Mota MD Primary Care Provider Unavail Victor Manuel Yu MD Primary Care Provider Unava ilable Daniel Mota MD Primary Care Provider Unavail Ayan Pulliam MD Primary Care Provider [phone] Victor Manuel Gonzales MD Primary Care Provider Unava ilmaximino Encounter Details Date Type Department Care Team Description 05/02/2011 Wash Oil Pump Operator Helper Report Medical Records [address] [place] [address] Elgin Russell MD Social History Tobacco Use [...] on filedocumented in this encounter Care Teams Bus Girl Relationship Specialty Start Date End Date Daniel Mota MD PCP - General 07/27/1994 12/22/15 Victor Manuel Gonzales MD PCP - General Internal Medicine 07/22/16 10/19/16 Daniel Mota MD PCP - General Internal Medicine 10/20/16 09/23/19 Ayan Clayton MD [address] [place] [address] PCP - General Internal Medicine 09/24/19 Victor Manuel Gonzales MD PCP - General 12/23/15 07/21/16 documented as of this encounter
--- OUTSIDE RECORDS SUMMARY | 2024-04-30 05:56 | XMS_ITS | Encounter Summary ---
Author Organization [facility] Address [address] [place] [address] Care Team Providers Care Contribution Solicitor Name Role Phone Daniel Mota MD Primary Care Provider Ayan Rubalcava MD Primary Care Provider Encounter Details Date Type Department Care Team Description 05/24/2017 Orders Only Medical Records [address] [place] [address] Daniel Mota MD Social History Tobacco Use [...] Name Priority Date/Time Associated Diagnosis Comments OUTSIDE SLEEP STUDY Routine 05/18/2017 documented in this encounter Results * OUTSIDE SLEEP STUDY (05/18/2017) Daniel Mota MD PULMONOLOGY documented in this encounter Visit Diagnoses Not on filedocumented in this encounter Care Teams Contribution Solicitor Relationship Specialty Start Date End Date Daniel Mota MD PCP - General Internal Medicine 10/20/16 09/23/19 Ayan Clayton MD [address] [place] [address] PCP - General Internal Medicine 09/24/19 documented as of this encounter
--- OUTSIDE RECORDS SUMMARY | 2024-04-30 05:56 | XMS_ITS | Encounter Summary ---
Author Organization [facility] Address [address] [place] [address] Care Team Providers Care Tower Equipment Repairer Name Role Phone Ayan Clayton MD Primary Care Provider [phone] Encounter Details Date Type Department Care Team Description 07/09/2020 Green Energy Marketing Analyst Report Medical Records [address] [place] [address] Skylar Hanna DPM Social History Tobacco Use [...] on filedocumented in this encounter Care Teams Tower Equipment Repairer Relationship Specialty Start Date End Date Ayan Clayton MD [address] [place], [place] [phone] PCP - General Internal Medicine 09/24/19 documented as of this encounter
--- OUTSIDE RECORDS SUMMARY | 2024-04-30 05:56 | XMS_ITS | Encounter Summary ---
Author Organization [facility] Address [address] [place] [address] Care Team Providers Care Armored Cable Machine Operator Name Role Phone Ayan Clayton MD Primary Care Provider [phone] Encounter Details Date Type Department Care Team Description 03/10/2021 Mold Capper Helper Report Medical Records [address] [place] [address] Rell Leavitt Social History Tobacco Use Types [...] on filedocumented in this encounter Care Teams Armored Cable Machine Operator Relationship Specialty Start Date End Date Ayan Clayton MD [address] [place], [place] [phone] PCP - General Internal Medicine 09/24/19 documented as of this encounter
--- OUTSIDE RECORDS SUMMARY | 2024-04-30 05:56 | XMS_ITS | Encounter Summary ---
Author Organization [facility] Address [address] [place] [address] Care Team Providers Care Analytical Lead Name Role Phone Ayan Clayton MD Primary Care Provider [phone] Encounter Details Date Type Department Care Team Description 11/03/2020 Telephone Adult Medicine [address] [place] [address] [phone] Ayan Clayton MD [address] [place] [phone] Social History Tobacco Use Types Packs/Day Years [...] have Coronavirus / COVID-19? No / Unsure 11/02/2020 12:44 PM EDT documented as of this encounter Plan of Treatment Not on file documented as of this encounter Visit Diagnoses Not on filedocumented in this encounter Care Teams Analytical Lead Relationship Specialty Start Date End Date Ayan Clayton MD [address] [place] [address] PCP - General Internal Medicine 09/24/19 documented as of this encounter
--- OUTSIDE RECORDS SUMMARY | 2024-04-30 05:56 | XMS_ITS | Encounter Summary ---
Author Organization [facility] Address [address] [place] [address] Care Team Providers Care Improvement Spec Name Role Phone Daniel Mota MD Primary Care Provider Unavail Victor Manuel Yu MD Primary Care Provider Unava ilable Daniel Mota MD Primary Care Provider Unavail Ayan Pulliam MD Primary Care Provider [phone] Victor Manuel Gonzalse MD Primary Care Provider Unava ilable Encounter Details Date Type Department Care Team Description 01/14/2011 Eye Assistant Spa Manager Report Medical Records [address] [place] [address] Mathew Liu Social History Tobacco Use Types [...] on filedocumented in this encounter Care Teams Improvement Spec Relationship Specialty Start Date End Date Daniel Mota MD PCP - General 07/27/1994 12/22/15 Victor Manuel Gonzales MD PCP - General Internal Medicine 07/22/16 10/19/16 Daniel Mota MD PCP - General Internal Medicine 10/20/16 09/23/19 Ayan Clayton MD [address] [place] [address] PCP - General Internal Medicine 09/24/19 Victor Manuel Gonzales MD PCP - General 12/23/15 07/21/16 documented as of this encounter
--- OUTSIDE RECORDS SUMMARY | 2024-04-30 05:56 | XMS_ITS | Encounter Summary ---
Author Organization [facility] Address [address] [place] [address] Care Team Providers Care Healthcare Receptionist Name Role Phone Ayan Clayton MD Primary Care Provider [phone] Reason for Visit * Reason Onset Date Comments Pre-op Exam 04/04/2024 Encounter Details Date Type Department Care Team (Late st Contact Info) Description 04/04/2024 Telephone Adult Medicine [address] [phone] Ayan Clayton MD [address] [place] [address] Pre-op Exam Social History Tobacco Use Types [...] Pre-Op appt due to pt transferred to [facility] Dr. Jake Womack for new pcp already. Pls advise. Tel #: [phone]. documented in this encounter Plan of Treatment Upcoming Encounters Date Type Department Care Team (Late st Contact Info) Description 06/12/2024 8:50 AM EDT Office Visit Pulmonolgy - [place] [address] [phone] Jil Freeman NP [address] [address] 08/30/2024 10:00 AM EDT Appointment Radiology Department - [address] [address] 12/05/2024 3:45 PM EDT Office Visit Nephrology - [address] [phone] Vega Navarro MD [address] [phone] 02/04/2025 9:00 AM EST Office Visit Bariatric Surgery - [place] [address] [phone] Torrey Moreno MD [address] [address] documented as of this encounter Visit Diagnoses Not on filedocumented in this encounter Care Teams Healthcare Receptionist Relationship Specialty Start Date End Date Ayan Clayton MD [address] [place] [address] PCP - General Internal Medicine 02/13/24 04/04/24 documented as of this encounter
--- OUTSIDE RECORDS SUMMARY | 2024-04-30 05:56 | XMS_ITS | Encounter Summary ---
Author Organization [facility] Address [address] [place] [address] Care Team Providers Care Boat Dispatcher Name Role Phone Daniel Mota MD Primary Care Provider Unavail Victor Manuel Yu MD Primary Care Provider Unava ilable Daniel Mota MD Primary Care Provider Unavail Ayan Pulliam MD Primary Care Provider [phone] Victor Manuel Gonzales MD Primary Care Provider Unava ilmaximino Encounter Details Date Type Department Care Team Description 05/04/2010 Commercial Escrow Assistant Report Medical Records [address] [place] [address] Adolfo Hill MD Social History Tobacco Use [...] filedocumented in this encounter Care Teams Boat Dispatcher Relationship Specialty Start Date End Date Daniel Mota MD PCP - General 07/27/1994 12/22/15 Victor Manuel Gonzales MD PCP - General Internal Medicine 07/22/16 10/19/16 Daniel Mota MD PCP - General Internal Medicine 10/20/16 09/23/19 Ayan Clayton MD [address] [place] [address] PCP - General Internal Medicine 09/24/19 Victor Manuel Gonzales MD PCP - General 12/23/15 07/21/16 documented as of this encounter
--- OUTSIDE RECORDS SUMMARY | 2024-04-30 05:56 | XMS_ITS | Encounter Summary ---
Author Organization [facility] Address [address] [place] [address] Care Team Providers Care Care Team Coordinator Scheduler Name Role Phone Ayan Clayton MD Primary Care Provider [phone] Encounter Details Date Type Department Care Team Description 08/25/2022 Computer Repairer Report Medical Records [address] [place] [address] Alexis Campbell MD Social History Tobacco Use [...] on filedocumented in this encounter Care Teams Care Team Coordinator Scheduler Relationship Specialty Start Date End Date Ayan Clayton MD [address] [place] [address] PCP - General Internal Medicine 09/24/19 documented as of this encounter
--- OUTSIDE RECORDS SUMMARY | 2024-04-30 05:56 | XMS_ITS | Encounter Summary ---
Author Organization [facility] Address [address] [place] [address] Care Team Providers Care Paper Coating Supervisor Name Role Phone Ayan Clayton MD Primary Care Provider [phone] Encounter Details Date Type Department Care Team Description 10/11/2022 Textile Screen Printer Report Medical Records [address] [place] [address] Alexis Campbell MD Social History Tobacco Use [...] suspected to have Coronavirus/COVID-19? No / Unsure 10/06/2022 10:59 AM EDT documented as of this encounter Plan of Treatment Not on file documented as of this encounter Visit Diagnoses Not on filedocumented in this encounter Care Teams Paper Coating Supervisor Relationship Specialty Start Date End Date Ayan Clayton MD [address] [place] [address] PCP - General Internal Medicine 09/24/19 documented as of this encounter
--- OUTSIDE RECORDS SUMMARY | 2024-04-30 05:56 | XMS_ITS | Encounter Summary ---
Author Organization [facility] Address [address] [place] [address] Care Team Providers Care Optical Instrument Repairer Name Role Phone Ayan Clayton MD Primary Care Provider [phone] Reason for Visit * Reason Onset Date Comments Medication 02/02/2021 Encounter Details Date Type Department Care Team Description 02/02/2021 Refill Gastroenterology - [place] [address] [facility] [address] [place] [address] Ruth Mitchell MD [address] [place] [address] Medication Social History Tobacco Use Types Packs/Day [...] on filedocumented in this encounter Care Teams Optical Instrument Repairer Relationship Specialty Start Date End Date Ayan Clayton MD [address] [place] [address] [id number] PCP - General Internal Medicine 09/24/19 documented as of this encounter
--- OUTSIDE RECORDS SUMMARY | 2024-04-30 05:56 | XMS_ITS | Encounter Summary ---
Author Organization [facility] Address [address] [place] [address] Care Team Providers Care Spa Consultant Name Role Phone Ayan Clayton MD Primary Care Provider [phone] Encounter Details Date Type Department Care Team Description 02/25/2021 Hospital Medical Records [address] [place] [address] Rell Leavitt Social History Tobacco Use Types [...] on filedocumented in this encounter Care Teams Spa Consultant Relationship Specialty Start Date End Date Ayan Clayton MD [address] [place], [place] [id number] PCP - General Internal Medicine 09/24/19 documented as of this encounter
--- OUTSIDE RECORDS SUMMARY | 2024-04-30 05:56 | XMS_ITS | Encounter Summary ---
Author Organization [facility] Address [address] [place] [address] Care Team Providers Care Automotive General Manager Name Role Phone Ayan Clayton MD Primary Care Provider [phone] Encounter Details Date Type Department Care Team Description 12/05/2020 Supervisor Continuous Weld Pipe Mill Report Medical Records [address] [place], [place] [address] [place] [address] [place] [address] [phone] Social History Tobacco Use Types Packs/Day Years [...] on filedocumented in this encounter Care Teams Automotive General Manager Relationship Specialty Start Date End Date Ayan Clayton MD [address] [place] [address] PCP - General Internal Medicine 09/24/19 documented as of this encounter
--- OUTSIDE RECORDS SUMMARY | 2024-04-30 05:56 | XMS_ITS | Encounter Summary ---
Author Organization [facility] Address [address] [place] [address] Care Team Providers Care Instructional Support Assistant Name Role Phone Daniel Mota MD Primary Care Provider Unavail Victor Manuel Yu MD Primary Care Provider Unava ilable Daniel Mota MD Primary Care Provider Unavail Ayan Pulliam MD Primary Care Provider [phone] Victor Manuel Gonzales MD Primary Care Provider Unava ilmaximino Encounter Details Date Type Department Care Team Description 07/07/2011 Line Ordering Clinician Report Medical Records [address] [place] [address] Elgin Russell MD Social History Tobacco Use [...] on filedocumented in this encounter Care Teams Instructional Support Assistant Relationship Specialty Start Date End Date Daniel Mota MD PCP - General 07/27/1994 12/22/15 Victor Manuel Gonzales MD PCP - General Internal Medicine 07/22/16 10/19/16 Daniel Mota MD PCP - General Internal Medicine 10/20/16 09/23/19 Ayan Clayton MD [address] [place] [id number] PCP - General Internal Medicine 09/24/19 Victor Manuel Gonzales MD PCP - General 12/23/15 07/21/16 documented as of this encounter
--- OUTSIDE RECORDS SUMMARY | 2024-04-30 05:56 | XMS_ITS | Encounter Summary ---
Author Organization [facility] Address [address] [place] [address] Care Team Providers Care Software Engineer Kernel Name Role Phone Ayan Clayton MD Primary Care Provider [phone] Encounter Details Date Type Department Care Team Description 02/02/2021 Radiology Physician Report Medical Records [address] [place] [address] Skylar Hanna DPM Social History Tobacco Use [...] on filedocumented in this encounter Care Teams Software Engineer Kernel Relationship Specialty Start Date End Date Ayan Clayton MD [address] [place], [place] [id number] PCP - General Internal Medicine 09/24/19 documented as of this encounter
--- OUTSIDE RECORDS SUMMARY | 2024-04-30 05:56 | XMS_ITS | Encounter Summary ---
Author Organization [facility] Address [address] [place] [address] Care Team Providers Care Vmware Engineer Name Role Phone Daniel Mota MD Primary Care Provider Unavail able Ayan Clayton MD Primary Care Provider [phone] Encounter Details Date Type Department Care Team Description 04/16/2018 Cardiovascular Radiologic Technologist Report Medical Records [address] [place] [address] Jake Limon MD Social History Tobacco Use [...] on filedocumented in this encounter Care Teams Vmware Engineer Relationship Specialty Start Date End Date Daniel Mota MD PCP - General Internal Medicine 10/20/16 09/23/19 Ayan Clayton MD [address] [place], [place] [phone] PCP - General Internal Medicine 09/24/19 documented as of this encounter
--- OUTSIDE RECORDS SUMMARY | 2024-04-30 05:56 | XMS_ITS | Encounter Summary ---
Author Organization [facility] Address [address] [place] [address] Care Team Providers Care Stull Hewer Name Role Phone Daniel Mota MD Primary Care Provider Unavail Victor Manuel Yu MD Primary Care Provider Unava ilable Daniel Mota MD Primary Care Provider Unavail Ayan Pulliam MD Primary Care Provider [phone] Victor Manuel Gonzales MD Primary Care Provider Unava ilmaximino Encounter Details Date Type Department Care Team Description 11/17/2010 Fruit Thinner Report Medical Records [address] [place] [address] RuCr dinha [address] [place] [address] Social History Tobacco Use Types Packs/Day Years [...] on filedocumented in this encounter Care Teams Stull Hewer Relationship Specialty Start Date End Date Daniel Mota MD PCP - General 07/27/1994 12/22/15 Victor Manuel Gonzales MD PCP - General Internal Medicine 07/22/16 10/19/16 Daniel Mota MD PCP - General Internal Medicine 10/20/16 09/23/19 Ayan Clayton MD [address] [place] [id number] PCP - General Internal Medicine 09/24/19 Victor Manuel Gonzales MD PCP - General 12/23/15 07/21/16 documented as of this encounter
--- OUTSIDE RECORDS SUMMARY | 2024-04-30 05:56 | XMS_ITS | Encounter Summary ---
Author Organization [facility] Address [address] [place] [address] Care Team Providers Care Flavorer Name Role Phone Ayan Clayton MD Primary Care Provider [phone] Encounter Details Date Type Department Care Team Description 03/08/2023 Cattle Manager Report Medical Records [address] [place] [address] Blu Us I., PH.D Social History Tobacco [...] on filedocumented in this encounter Care Teams Flavorer Relationship Specialty Start Date End Date Ayan Clayton MD [address] [place] [address] PCP - General Internal Medicine 09/24/19 documented as of this encounter
--- OUTSIDE RECORDS SUMMARY | 2024-04-30 05:56 | XMS_ITS | Encounter Summary ---
Author Organization [facility] Address [address] [place] [address] Care Team Providers Care Machine Burrer Name Role Phone Ayan Clayton MD Primary Care Provider [phone] Encounter Details Date Type Department Care Team Description 06/04/2020 [facility] Medical Records [address] [place] [address] Abstract, Provider Social History Tobacco Use Types [...] on filedocumented in this encounter Care Teams Machine Burrer Relationship Specialty Start Date End Date Ayan Clayton MD [address] [place], [place] [phone] PCP - General Internal Medicine 09/24/19 documented as of this encounter
--- OUTSIDE RECORDS SUMMARY | 2024-04-30 05:56 | XMS_ITS | Encounter Summary ---
Author Organization [facility] Address [address] [place] [address] Care Team Providers Care Environmental Services Associate Name Role Phone Daniel Mota MD Primary Care Provider Ayan Rubalcava MD Primary Care Provider [phone] Reason for Visit * Reason Onset Date Comments Faxed Order 12/06/2016 [facility] Encounter Details Date Type Department Care Team Description 12/06/2016 Telephone Adult Medicine [address] [address] Daniel Mota MD Faxed Order ([facility]) Social History Tobacco Use Types Packs/Day Years [...] encounter Miscellaneous Notes * Telephone Encounter - Tracy Campo - 12/06/2016 3:04 PM EDT Faxed order from [facility], please sign and fax documented in this encounter Plan of Treatment Not on file documented as of this encounter Visit Diagnoses Not on filedocumented in this encounter Care Teams Environmental Services Associate Relationship Specialty Start Date End Date Daniel Mota MD PCP - General Internal Medicine 10/20/16 09/23/19 Ayan Clayton MD [address] [place] [id number] PCP - General Internal Medicine 09/24/19 documented as of this encounter
--- OUTSIDE RECORDS SUMMARY | 2024-04-30 05:56 | XMS_ITS | Encounter Summary ---
Author Organization [facility] Address [address] [place] [address] Care Team Providers Care Senior Care Provider Name Role Phone Daniel Mota MD Primary Care Provider Ayan Rubalcava MD Primary Care Provider [phone] Reason for Visit * Reason Onset Date Comments REFERRAL 09/06/2017 Encounter Details Date Type Department Care Team Description 09/06/2017 Telephone Physiatry - [address] [address] Surjit Reese DO REFERRAL Social History Tobacco Use Types Packs/Day Years [...] encounter Miscellaneous Notes * Telephone Encounter - N'Kimmy Mock - 09/06/2017 10:19 AM EDT Patient was referred to Physiatry for cervical spondylosis, neuroforaminal narrowing, spasm chronicpain. Patient canceled appointment with . Patient did not wish to reschedule. She will notbe placed back on the referrals report.FYI documented in this encounter Plan of Treatment Not on file documented as of this encounter Visit Diagnoses Not on filedocumented in this encounter Care Teams Senior Care Provider Relationship Specialty Start Date End Date Daniel Mota MD PCP - General Internal Medicine 10/20/16 09/23/19 Ayan Clayton MD [address] [place], [place] [phone] PCP - General Internal Medicine 09/24/19 documented as of this encounter
--- OUTSIDE RECORDS SUMMARY | 2024-04-30 05:56 | XMS_ITS | Encounter Summary ---
Author Organization [facility] Address [address] [place] [address] Care Team Providers Care Vacuum Form Operator Name Role Phone Daniel Mota MD Primary Care Provider Unavail able Ayan Clayton MD Primary Care Provider [phone] Encounter Details Date Type Department Care Team Description 05/02/2017 Tractor Trailer Operator Report Medical Records [address] [place] [address] Ana Pratt PA-C [address] [place] [address] [address] [place] [address] Social History Tobacco Use Types Packs/Day Years [...] on filedocumented in this encounter Care Teams Vacuum Form Operator Relationship Specialty Start Date End Date Daniel Mota MD PCP - General Internal Medicine 10/20/16 09/23/19 Ayan Clayton MD [address] [place], [place] [phone] PCP - General Internal Medicine 09/24/19 documented as of this encounter
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
--- OUTSIDE RECORDS SUMMARY | 2024-04-30 05:56 | XMS_ITS | Encounter Summary ---
Author Organization [facility] Address [address] [place] [address] Care Team Providers Care Carton Forming Machine Tender Name Role Phone Ayan Clayton MD Primary Care Provider [phone] Encounter Details Date Type Department Care Team Description 10/21/2022 Orders Only [facility] Lung Screening Program [place] [address] [facility] [address] [place] [phone] Frank Hampton MD [address] [facility] [address] [place] [address] History of tobacco use, presenting hazards to [...] health documented in this encounter Care Teams Carton Forming Machine Tender Relationship Specialty Start Date End Date Ayan Clayton MD [address] [place] [id number] PCP - General Internal Medicine 09/24/19 documented as of this encounter
--- OUTSIDE RECORDS SUMMARY | 2024-04-30 05:56 | XMS_ITS | Encounter Summary ---
Author Organization [facility] Address [address] [place] [address] Care Team Providers Care Hosiery Mender Name Role Phone Ayan Clayton MD Primary Care Provider [phone] Reason for Visit * Reason Onset Date Comments preop exam 07/27/2022 Encounter Details Date Type Department Care Team Description 07/27/2022 Telephone Adult Medicine [address] [phone] Ayan Clayton MD [address] [place] [phone] preop exam Social History Tobacco Use Types [...] Fernie Toth Office phone number of surgeon: [phone] Fax # for surgeons office: [phone] (Required) Where is surgery being performed? [facility] Diagnosis/problem for surgery: Left total hip arthoplastry Is an EKG required for the pre-op workup? YES (labs) PCP: Ayan Clayton Did you verify that the insurance below is correct? YES Patients insurance: Payor: [employer] / Plan: PPO $0 [place] [employer] [id number] / Product Type: PPO [id number] documented in this encounter Plan of Treatment Not on file documented as of this encounter Visit Diagnoses Not on filedocumented in this encounter Care Teams Hosiery Mender Relationship Specialty Start Date End Date Ayan Clayton MD [address] [place] [id number] PCP - General Internal Medicine 09/24/19 documented as of this encounter
[2024-04-30 07:13] LABS: Hematocrit 34.1 % (37.0-47.0)
--- NOTE | 2024-04-30 07:15 | P.CONAN_ITS ---
Documented by User: Keyla Mariscal NP 04/29/24 10:32 HPI - Anesthesia Eval Consult details Narrative: 68yo F for Right Hip Total Replacement, 05/01/24 Medically optimized per PCP s/p Left total hip and revision 08/2023 with GA-ETT 09/30. No recent illness No CP/SOB with very limited activity d/t pain 10/2023 ICU admit d/t Covid and pancreatitis d/t ozempic. LLE DVT with eliquis and IVC filter 01/2024 Asthma/COPD: No rescue inhaler need DM: Does not check POC at home Chronic opioids: Morphine QHS GERD: ppi controls PMFSH Active Problems Active Problems: All Active Problems Visit for suture removal (Acute) Laceration of lower extremity (Acute) DVT (deep venous thrombosis) (Acute) Osteoarthritis of right hip (Acute) History of revision of total replacement of left hip joint (Acute) Right hip pain (Acute) Periprosthetic fracture around internal prosthetic left hip joint, initial encounter (Acute) Status post total hip replacement, left (Acute) Bilateral sacroiliitis (Acute) Sacroiliitis (Acute) Sacroiliac joint pain (Acute) Bilateral hip joint arthritis (Acute) Osteoarthritis of left hip (Acute) Failed back syndrome (Acute) Spondylosis of lumbosacral spine with radiculopathy (Acute) Past Medical History Medical History History of kidney infection (~08/2023) DVT (deep venous thrombosis) Diabetes Elevated blood pressure reading with diagnosis of hypertension Abdominal hernia Asthma Arthritis Osteoarthritis (arthritis due to wear and tear of joints) COVID-19 vaccine series completed Full dentures Arthritis of left hip Low back pain Liver cyst COPD (chronic obstructive pulmonary disease) Elevated cholesterol Family History Family history of problems with anesthesia: No Surgical History Surgical History S/P insertion of IVC (inferior vena caval) filter (02/07/24) History of total left hip arthroplasty (08/29/23) Hx of gastric bypass Hx of ankle fusion Status post insertion of nerve stimulator Hx of colonoscopy Hx of carpal tunnel repair History of back surgery History of Problems with Anesthesia: No Social History Social History Household Members: None Housing: Condominium Are you a primary nurse healthcare manager to a significant other at home: No Do you presently have visiting nurse or other home services: Yes (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 If so, by whom?: No Christianity Healthcare Practices: Baptism Are you DNR?: No Advance Directives: No Advance Directives Information Provided: Yes Advance Directives on File: No Recently lost weight without trying: No service: No Meds Allergies Allergy/AdvReac Type Severity Reaction Status Date / Time Sulfa (Sulfonamide Allergy Severe throat Verified 04/30/24 07:36 Antibiotics) swelling metformin AdvReac Intermediate diarrhea Verified 04/30/24 07:36 semaglutide [From Ozempic] AdvReac Intermediate pancreatiti Verified 04/30/24 07:36 s Home Medications ?Medication ?Instructions ?Recorded ?Confirmed ?Last Taken ?Type albuterol sulfate 90 mcg/actuation 2 puff inhalation Q6H PRN wheezing 11/16/20 04/09/24 09/06/23 06:00 History aerosol inhaler (Ventolin HFA) atorvastatin 20 mg tablet 20 mg PO DAILY 11/16/20 04/09/24 02/07/24 05:00 Hi story fluticasone fur. 100 mcg-umeclid 1 ea inhalation DAILY 08/22/23 04/09/24 09/06/23 06:00 History 62.5 mcg-vilant 25 mcg inhalat.powder (Trelegy Ellipta) cetirizine 10 mg tablet 10 mg PO DAILY 08/29/23 04/09/24 09/06/23 06:00 History diclofenac sodium 1 % topical gel 1 g topical BID 09/06/23 04/09/24 09/06/23 06:00 History ezetimibe 10 mg tablet 10 mg PO DAILY 10/31/23 04/09/24 Unknown History oxycodone 5 mg tablet 10 mg PO Q8H PRN Pain, 10/31/23 04/09/24 02/07/24 05:00 History Moderate(Pain Scale 4-6) tizanidine 4 mg tablet 4 mg PO BEDTIME 10/31/23 04/09/24 02/07/24 05:00 History apixaban 5 mg tablet (Eliquis) 5 mg PO BID 12/25/23 04/30/24 04/22/24 History ferrous sulfate 325 mg (65 mg 325 mg PO DAILY 03/01/24 04/09/24 Unknown History iron) tablet sodium bicarbonate 650 mg tablet 650 mg PO BID 03/01/24 04/09/24 Unknown History acetaminophen 325 mg tablet 325 mg PO Q8H PRN Pain 04/01/24 04/09/24 Unknown History acetaminophen 650 mg 650 mg PO BEDTIME PRN Pain 04/01/24 04/09/24 Unknown History tablet,extended release lidocaine 5 % topical patch 1 patch topical DAILY 04/01/24 04/09/24 Unknown History morphine 15 mg tablet,extended 15 mg PO BEDTIME 04/01/24 04/09/24 Unknown History release omeprazole 20 mg capsule,delayed 20 mg PO QAM 04/01/24 04/09/24 Unknown History release vitamin B complex 1 cap PO DAILY 04/01/24 04/09/24 Unknown History docusate sodium 100 mg capsule 100 mg PO BID PRN Constipation 04/03/24 04/09/24 Unknown History nystatin 100,000 unit/gram topical 1 appl topical BID PRN Rash 04/03/24 04/09/24 Unknown History cream Exam Height,Weight and Vital Signs: Height 4 ft 11.5 in Weight 58.513 kg Last Vital Signs Pulse 77 04/03/24 09:25 Resp 16 04/03/24 09:25 BP 176/77 H 04/03/24 09:25 Pulse Ox 98 04/03/24 09:25 O2 Del Method Room Air 04/03/24 09:25 Pertinent Lab Results Pertinent Lab Results: CBC and BMP from outside facility 02/2024 ok except H&H low at 9.1&30.3 A1C 7 Narrative Narrative: EKG 02/2024 NSR @ 60 Airway Mallampati Class: II TM Dist: >3cm Neck ROM: Full Denture: Upper and Lower Heart: RRR Lungs: CTAB Assessment and Plan Assessment Anesthesia Assessment: Chart Reviewed Final Anesthetic Review Family History of Problems with Anesthesia: No History of Problems with Anesthesia: No Documented by User: Jannie Lyles DO 04/30/24 08:00 [facility] Past Medical History Medical History History of kidney infection (~08/2023) DVT (deep venous thrombosis) Diabetes Elevated blood pressure reading with diagnosis of hypertension Abdominal hernia Asthma Arthritis Osteoarthritis (arthritis due to wear and tear of joints) COVID-19 vaccine series completed Full dentures Arthritis of left hip Low back pain Liver cyst COPD (chronic obstructive pulmonary disease) Elevated cholesterol Family History Family history of problems with anesthesia: No Surgical History Surgical History S/P insertion of IVC (inferior vena caval) filter (02/07/24) History of total left hip arthroplasty (08/29/23) Hx of gastric bypass Hx of ankle fusion Status post insertion of nerve stimulator Hx of colonoscopy Hx of carpal tunnel repair History of back surgery History of Problems with Anesthesia: No Social History Social History Household Members: None Housing: Condominium Are you a primary nurse healthcare manager to a significant other at home: No Do you presently have visiting nurse or other home services: Yes ([employer]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 If so, by whom?: No Christianity Healthcare Practices: Baptism Are you DNR?: No Advance Directives: No Advance Directives Information Provided: Yes Advance Directives on File: No Recently lost weight without trying: No service: No Meds Allergies Allergy/AdvReac Type Severity Reaction Status Date / Time Sulfa (Sulfonamide Allergy Severe throat Verified 04/30/24 07:36 Antibiotics) swelling metformin AdvReac Intermediate diarrhea Verified 04/30/24 07:36 semaglutide [From Ozempic] AdvReac Intermediate pancreatiti Verified 04/30/24 07:36 s Home Medications ?Medication ?Instructions ?Recorded ?Confirmed ?Last Taken ?Type albuterol sulfate 90 mcg/actuation 2 puff inhalation Q6H PRN wheezing 11/16/20 04/09/24 09/06/23 06:00 History aerosol inhaler (Ventolin HFA) atorvastatin 20 mg tablet 20 mg PO DAILY 11/16/20 04/09/24 02/07/24 05:00 Histor y fluticasone fur. 100 mcg-umeclid 1 ea inhalation DAILY 08/22/23 04/09/24 09/06/23 06:00 History 62.5 mcg-vilant 25 mcg inhalat.powder (Trelegy Ellipta) cetirizine 10 mg tablet 10 mg PO DAILY 08/29/23 04/09/24 09/06/23 06:00 History diclofenac sodium 1 % topical gel 1 g topical BID 09/06/23 04/09/24 09/06/23 06:00 History ezetimibe 10 mg tablet 10 mg PO DAILY 10/31/23 04/09/24 Unknown History oxycodone 5 mg tablet 10 mg PO Q8H PRN Pain, 10/31/23 04/09/24 02/07/24 05:00 History Moderate(Pain Scale 4-6) tizanidine 4 mg tablet 4 mg PO BEDTIME 10/31/23 04/09/24 02/07/24 05:00 History apixaban 5 mg tablet (Eliquis) 5 mg PO BID 12/25/23 04/30/24 04/22/24 History ferrous sulfate 325 mg (65 mg 325 mg PO DAILY 03/01/24 04/09/24 Unknown History iron) tablet sodium bicarbonate 650 mg tablet 650 mg PO BID 03/01/24 04/09/24 Unknown History acetaminophen 325 mg tablet 325 mg PO Q8H PRN Pain 04/01/24 04/09/24 Unknown History acetaminophen 650 mg 650 mg PO BEDTIME PRN Pain 04/01/24 04/09/24 Unknown History tablet,extended release lidocaine 5 % topical patch 1 patch topical DAILY 04/01/24 04/09/24 Unknown History morphine 15 mg tablet,extended 15 mg PO BEDTIME 04/01/24 04/09/24 Unknown History release omeprazole 20 mg capsule,delayed 20 mg PO QAM 04/01/24 04/09/24 Unknown History release vitamin B complex 1 cap PO DAILY 04/01/24 04/09/24 Unknown History docusate sodium 100 mg capsule 100 mg PO BID PRN Constipation 04/03/24 04/09/24 Unknown History nystatin 100,000 unit/gram topical 1 appl topical BID PRN Rash 04/03/24 04/09/24 Unknown History cream Exam Exam Date and Time: 04/30/24 0715 Height,Weight and Vital Signs: Height 4 ft 11.5 in Weight 58.513 kg Last Vital Signs Pulse 77 04/03/24 09:25 Resp 16 04/03/24 09:25 BP 176/77 H 04/03/24 09:25 Pulse Ox 98 04/03/24 09:25 O2 Del Method Room Air 04/03/24 09:25 Vital Signs Pulse Rate 77 04/03/24 09:25 Respiratory Rate 16 04/03/24 09:25 Blood Pressure 176/77 H 04/03/24 09:25 Pulse Oximetry 98 04/03/24 09:25 Oxygen Delivery Method Room Air 04/03/24 09:25 Temperature 99.0 F 04/30/24 06:59 Pulse Rate 98 04/30/24 06:59 Respiratory Rate 18 04/30/24 06:59 Blood Pressure 158/80 H 04/30/24 06:59 Pulse Oximetry 95 04/30/24 06:59 Oxygen Delivery Method Room Air 04/30/24 06:59 Airway Mallampati Class: I TM Dist: <=3cm Neck ROM: Full Loose/Missing/Broken Teeth: Yes (edentulous) Heart: S1S2 Assessment and Plan Assessment Anesthesia Assessment: Anesthesia Plan Discussed and Chart Reviewed Final Anesthetic Review Family History of Problems with Anesthesia: No History of Problems with Anesthesia: No NPO: Yes ASA Class: III Final Preanesthetic Review: No Changes in Pt Med Stat, Meds/Allgs Chart Reviewed, Consent Obtained/Reviewed and Anes Risks/Benef Reviewed Patient Risk: Intermediate Procedure Risk: Intermediate Anesthetic Plan Anesthetic Plan: GA and Agree w/ Assess. and Plan Disposition: Standard PACU
[2024-04-30] MEDS: oxyCODONE HCl ER 10 MG TAB.ER.12H PO ×2 (07:27→19:48)
--- NOTE | 2024-04-30 07:28 | MHC.SHP ---
Pre-Procedural Eval Section A - 24 Hr Update-Section A only Date of Service: 04/30/24 The patient is an INPATIENT: No Changes since office visit: No Cold of Flu in the past 2 weeks, No New Medical Problems, No Changes in Medication and No Patient answered all questions The patient has been examined within 24 hours of the surgical procedure. The History & Physical has been completed within 30 days and I have reviewed it.: Yes Section B - Complete if H&P > 30 days Chief Complaint: Unilateral primary osteoarthritis, right hip Allergies: Allergies Allergy/AdvReac Type Severity Reaction Status Date / Time Sulfa (Sulfonamide Allergy Severe throat Verified 04/25/24 09:32 Antibiotics) swelling metformin AdvReac Intermediate diarrhea Verified 04/25/24 09:32 semaglutide [From Ozempic] AdvReac Intermediate pancreatiti Verified 04/25/24 09:32 s Plan I have reviewed the history and physical and performed a pertinent physical examination on my patient. No changes have occurred unless specified. Time Spent With Patient Time: Total time managing care of this patient today ____ minutes.
[2024-04-30] MEDS: Lactated Ringers 1,000 ML 100 ML IVCONT ×2 (07:32→12:45)
[2024-04-30] MEDS: Acetaminophen 1,000 MG/100 ML PIGGYBACK 400 MG IV (07:50)
--- NOTE | 2024-04-30 09:01 | P.BOP_ITS ---
Brief Operative Note Date of Service: 04/30/24 Pre-op diagnosis: Right hip OA Post-op diagnosis: same Procedure: RIght CHINYERE Implants: [place] Trident2 multi hole and 2 6.5 mm acetabular screws with 20 deg lip liner; Accolade 2 #4 132 with +2.5 36 ceramic femoral head Surgeon: Fernie Ruiz MD Anesthesia: GETA and local Was an Painter Supervisor used for this Procedure?: Yes Painter Supervisor: Izabel Hoang Estimated blood loss (mL): 200 IV fluids (mL): 800 Pathology: other Condition: stable Disposition: PACU
--- NOTE | 2024-04-30 09:04 | P.OP_ITS ---
Operative Note Operative Note Date of Service: 04/30/24 Narrative: Date of Service: 04/30/24 Pre-op diagnosis: Right hip OA Post-op diagnosis: same Procedure: RIght CHINYERE Implants: [place] Trident2 multi hole and 2 6.5 mm acetabular screws with 20 deg lip liner; Accolade 2 #4 132 with +2.5 36 ceramic femoral head Surgeon: Fernie Ruiz MD Anesthesia: GETA and local Was an Diving Instructor used for this Procedure?: Yes Diving Instructor: Izabel Hoang Estimated blood loss (mL): 200 IV fluids (mL): 800 Pathology: other Condition: stable Disposition: PACU Procedure in detail: Patient was brought into the operating room and placed in the right lateral decubitus position. All bony prominences were well padded and the limb was prepped and draped in standard sterile fashion. A time-out was called to identify proper site procedure proper surgeon IV antibiotics. I began by making a curvilinear incision over the posterolateral aspect of the greater trochanter. Dissection was taken down to the tensor fascia which was incised in line with the incision and a Charnley retractor was placed. Cautery was used to maintain hemostasis. The hip was internally rotated and the external rotators were identified. The vessels were cauterized and a full-thickness capsular/external rotator layer was developed starting just proximal to the piriformis. This layer was tagged and a dull Hohmann retractor was placed underneath the neck in the hip was dislocated. A neck cut was made 1 cm proximal to the lesser trochanter and the head and neck were removed and measured 46 mm on the back table. The head was deformed and eburnated. I then removed the labrum and cauterized the fovea. I started with a 44 reamer and medialized to the inner table. I sequentially reamed up to a size 54 and impacted a 54mm cup at 45 degrees of inclination and 25 degrees of version. The bone was sclerotic but this with pre existing coxa profunda so I placed 2 30 mm scetabular screws into the superior safe zone using standard AO technique. I then placed a 20 deg posterior lipped liner and turned my attention to the femur. I identified the piriformis insertion and used this as a starting point for my percyie cutter. The medius tendon was protected with a Hibs retractor. A Charnley awl was inserted in the canal and a curved curette used to remove the lateral bone. I irrigated copiously. I then sequentially broached in the patient's natural version to a size 4 and placed my trial implants. I used a #4/132/+0 based on my pre-operative template. I removed all instrumentation and copiously irrigated. I placed my final femoral implant and again took the hip through range of motion and was satisfied with the stability and length. The final +2.5 implant was impacted in place and the hip reduced. I then irrigated copiously. I performed a capsular closure with 2.0 fiberwire, Alyx's fascia with 0 Vicryl, subcuticular with 2-0 Vicryl and the skin with claudia. Patient was placed into a sterile dressing. Patient was extubated brought to the recovery room in stable condition. There were no known complications.
[2024-04-30] MEDS: HYDROmorphone HCl 0.5 MG/0.5 ML SYRINGE IVPUSH ×3 (09:31→10:06)
[2024-04-30 10:30] LABS: Glucose, Whole Blood 164 mg/dL (60-115)
[2024-04-30] MEDS: Labetalol HCL 100 MG/20 ML VIAL 10 MG IVPUSH (10:30)
[2024-04-30 11:40] LABS: Glucose, Whole Blood 181 mg/dL (60-115)
--- NOTE | 2024-04-30 11:43 | PC.NURSE ---
Pt arrived to unit alert to voice and light touch, pts eyes rolling in back of head, but able to answer some questions, then falling back asleep. Pt was able to void 150ml on bed jauregui + 1 inc void on pad. Pt s/p RTHA, +CMS. Pt BP 186/80 manually, all other VS stable. PA T-Emily on floor and visualized pt and made aware of BP.
--- NOTE | 2024-04-30 13:05 | PC.NURSE ---
Addendum entered by Vesta Rodriguez RN 04/30/24 18:34: Blood pressure recheck 180/68. Per PA 1x dose 5mg IVP hydralazine given, pending effectiveness, reported off to night time nurse. Addendum entered by Vesta Rodriguez RN 04/30/24 17:01: DIRECTOR OF SLEEP Claudette Sage at bedside for hospitalist consult, PA aware pts BP elevated, 1x dose of PO lisinopril given with poor effect BP repeated 198/60. Pt then given PRN IVP Hydralazine 5mg. Pending BP recheck. Pt endorsing pain, PRN Dilaudid given with good effect. Original Note: Medicine Consult noted, reached out to MD Brown. Pt has DM listed as PMH, per MD Brown Pt A1c is 6, will hold off on POC blood sugars and sliding scale at this time. Notified of SBP elevation.
--- NOTE | 2024-04-30 13:12 | HO.PM.IMCN ---
History of Present Illness Data of Consult Service Date: 04/30/24 Primary Care Provider: Gabbi Womack MD HPI 68-year-old woman with history of hyperlipidemia, hypertension admitted by Orthopedic surgery and is status post right total hip arthroplasty. Surgery was unremarkable. Patient still sleepy but arrousable. Blood pressure is noted to be elevated. She states no acute medical complaints at this time. Review of Systems Review of Systems: Denies any recent fever chills or decrease in appetite respiratory denies any shortness of breath or cough cardiovascular denied chest pain gastrointestinal denies any dysphagia abdominal pain nausea vomiting or diarrhea genitourinary denies any dysuria frequency or hematuria musculoskeletal POST SURG neuropsych denies any weakness or seizures all other systems reviewed are negative [facility] Medical History History of kidney infection (~08/2023) DVT (deep venous thrombosis) Diabetes Elevated blood pressure reading with diagnosis of hypertension Abdominal hernia Asthma Arthritis Osteoarthritis (arthritis due to wear and tear of joints) COVID-19 vaccine series completed Full dentures Arthritis of left hip Low back pain Liver cyst COPD (chronic obstructive pulmonary disease) Elevated cholesterol Surgical History S/P insertion of IVC (inferior vena caval) filter (02/07/24) History of total left hip arthroplasty (08/29/23) Hx of gastric bypass Hx of ankle fusion Status post insertion of nerve stimulator Hx of colonoscopy Hx of carpal tunnel repair History of back surgery Social History Household Members: None Housing: Condominium Are you a primary care asst to a significant other at home: No Do you presently have visiting nurse or other home services: No Comment: pt rings appropriately Patient Tobacco Use Status: Former Tobacco user Tobacco use type: Cigarette Cigarettes Per Day: 60 Years Smoked: quit 15 years ago Smoked in Last 30 Days: No Second Hand Smoke Exposure: No Use of substances other than those prescribed or required for medical reasons: Unknown Have you been hit, kicked, punched, or otherwise hurt by someone within the past year? If so, by whom?: No [employer] Healthcare Practices: [employer] Are you DNR?: No Advance Directives: No Advance Directives Information Provided: Yes Advance Directives on File: No Do you have a plan to hurt others: No Plan Recently lost weight without trying: Unsure Patient : No Poor oral hygiene: No service: No Meds Allergies Allergy/AdvReac Type Severity Reaction Status Date / Time Sulfa (Sulfonamide Allergy Severe throat Verified 04/30/24 07:36 Antibiotics) swelling metformin AdvReac Intermediate diarrhea Verified 04/30/24 07:36 semaglutide [From Ozempic] AdvReac Intermediate pancreatiti Verified 04/30/24 07:36 s Active Medications: Current Medications Acetaminophen (Acetaminophen 325 Mg Tablet) 650 mg PO Q6H PRN PRN Reason: Pain, Mild 1-3,fever,headache Albuterol Sulfate (Albuterol Sulfate 90 Mcg 8 Gm Inhaler) 2 puff INHALE Q6H PRN PRN Reason: wheezing Apixaban (Apixaban 5 Mg Tablet) 5 mg PO BID [facility]ANCO Celecoxib (Celecoxib 200 Mg Capsule) 200 mg PO BID [facility] Docusate Sodium (Docusate Sodium 100 Mg Capsule) 100 mg PO BID [facility] Ezetimibe (Ezetimibe 10 Mg Tablet) 10 mg PO DAILY [facility] Enoxaparin Sodium (Enoxaparin Sodium 40 Mg/0.4 Ml Syringe) 40 mg SUBCUT Q24H BLANCO Stop: 05/02/24 08:01 Ferrous Sulfate (Ferrous Sulfate 324 Mg Tablet.Dr) 324 mg PO DAILY [facility] Fluticasone/Umeclidinium/Vilanterol (Fluticasone/Umeclidinium/Vilanterol 100/62.5/25 Blst.W.Dev) 1 puff INHALE RDAILY [facility] Hydromorphone HCl (Hydromorphone Hcl 0.5 Mg/0.5 Ml Syringe) 0.25 mg IVPUSH Q4H PRN; Protocol PRN Reason: Pain, Severe (Pain Scale 7-10) Lactated Ringer's (Lr) 1,000 mls @ 100 mls/hr IVCONT .Q10H [facility]ANCO Stop: 05/01/24 08:00 Last Admin: 04/30/24 12:45 Dose: 100 mls/hr Vancomycin HCl 1,000 mg/ (Sodium Chloride) 270 mls @ 270 mls/hr IV POSTOP ONE Stop: 04/30/24 19:59 Lidocaine (Lidocaine 4 % Patch Adh..Patch) 1 patch TRANSDERMA DAILY [facility] Loratadine (Loratadine 10 Mg Tablet) 10 mg PO DAILY [facility] Multivitamins/Vitamin C (Multivitamin Tablet) 1 tab PO DAILY [facility] Nystatin (Nystatin Cream 15 Gm Tube) 1 appl TOPICAL BID PRN; Protocol PRN Reason: Rash Omeprazole (Omeprazole 20 Mg Capsule.Dr) 20 mg PO DAILY@0630 [facility] Ondansetron HCl (Ondansetron Hcl 4 Mg/2 Ml Vial) 4 mg IVPUSH Q8H PRN PRN Reason: Nausea and Vomiting Oxycodone HCl (Oxycodone Hcl Immed Release 5 Mg Tablet) 10 mg PO Q4H PRN PRN Reason: Pain, Moderate(Pain Scale 4-6) Oxycodone HCl (Oxycodone Hcl Er 10 Mg Tab.Er.12h) 10 mg PO BID [facility] Sodium Bicarbonate (Sodium Bicarbonate 650 Mg Tablet) 650 mg PO BID [facility] Sodium Chloride (0.9 % Sodium Chloride Flush 3 Ml Syringe) 3 ml IVFLUSH QSHIFT [facility] Tizanidine HCl (Tizanidine Hcl 4 Mg Tablet) 4 mg PO BEDTIME [facility] Home Medications ?Medication ?Instructions ?Recorded ?Confirmed ?Last Taken ?Type albuterol sulfate 90 mcg/actuation 2 puff inhalation Q6H PRN wheezing 11/16/20 04/09/24 09/06/23 06:00 History aerosol inhaler (Ventolin HFA) atorvastatin 20 mg tablet 20 mg PO DAILY 11/16/20 04/09/24 02/07/24 05:00 History fluticasone fur. 100 mcg-umeclid 1 ea inhalation DAILY 08/22/23 04/09/24 09/06/23 06:00 History 62.5 mcg-vilant 25 mcg inhalat.powder (Trelegy Ellipta) cetirizine 10 mg tablet 10 mg PO DAILY 08/29/23 04/09/24 09/06/23 06:00 History diclofenac sodium 1 % topical gel 1 g topical BID 09/06/23 04/09/24 09/06/23 06:00 History ezetimibe 10 mg tablet 10 mg PO DAILY 10/31/23 04/09/24 Unknown History oxycodone 5 mg tablet 10 mg PO Q8H PRN Pain, 10/31/23 04/09/24 02/07/24 05:00 History Moderate(Pain Scale 4-6) tizanidine 4 mg tablet 4 mg PO BEDTIME 10/31/23 04/09/24 02/07/24 05:00 History apixaban 5 mg tablet (Eliquis) 5 mg PO BID 12/25/23 04/30/24 02/07/24 05:00 History ferrous sulfate 325 mg (65 mg 325 mg PO DAILY 03/01/24 04/09/24 Unknown History iron) tablet sodium bicarbonate 650 mg tablet 650 mg PO BID 03/01/24 04/09/24 Unknown History acetaminophen 325 mg tablet 325 mg PO Q8H PRN Pain 04/01/24 04/09/24 Unknown History acetaminophen 650 mg 650 mg PO BEDTIME PRN Pain 04/01/24 04/09/24 Unknown History tablet,extended release lidocaine 5 % topical patch 1 patch topical DAILY 04/01/24 04/09/24 Unknown History morphine 15 mg tablet,extended 15 mg PO BEDTIME 04/01/24 04/09/24 Unknown History release omeprazole 20 mg capsule,delayed 20 mg PO QAM 04/01/24 04/09/24 Unknown History release docusate sodium 100 mg capsule 100 mg PO BID PRN Constipation 04/03/24 04/09/24 Unknown History nystatin 100,000 unit/gram topical 1 appl topical BID PRN Rash 04/03/24 04/09/24 Unknown History cream cyanocobalamin (vitamin B-12) 1,000 mcg DAILY 04/30/24 Unknown History 1,000 mcg tablet duloxetine 30 mg capsule,delayed 30 mg PO DAILY 04/30/24 Unknown History release ibuprofen 800 mg tablet (IBU) 800 mg PO TID PRN Pain 04/30/24 Unknown History tizanidine 4 mg tablet 4 mg PO Q6H PRN muscle spasm 04/30/24 Unknown History vitamin B complex-folic acid 0.4 1 tab DAILY 04/30/24 04/30/24 Unknown History mg tablet (B Complex 1 (with folic acid)) Physical Exam Vital Signs and Narrative: Vital Signs: Last Vital Signs Temp 97 F 04/30/24 11:43 Pulse 64 04/30/24 11:43 Resp 16 04/30/24 11:43 BP 186/80 H 04/30/24 11:43 Pulse Ox 100 04/30/24 11:43 O2 Del Method Nasal Cannula 04/30/24 11:43 O2 Flow Rate 2 04/30/24 11:43 BMI result Body Mass Index 25.5 Appearing in no acute distress head is normocephalic atraumatic eyes pupils are PERRLA sclera is anicteric mouth throat mucous membranes are intact and moist neck is supple no lymphadenopathy, no JVD noted lung sounds are clear to auscultation heart regular rate rhythm, clear S1, S2 positive bowel sounds, abdomen is soft, nontender neuro patient is alert x3, no focal deficits MSK surgical incision not visualized, dressing in place Results Labs 04/30/24 07:07 04/30/24 12:56 Labs: Laboratory Results - last 24 hr 04/30/24 04/30/24 10:25 11:22 POC Glucose 164 H 181 H Imaging Radiologist's Impressions: Impressions Pelvis X-Ray 04/30/24 09:45 IMPRESSION: Status post right total hip arthroplasty. Electronically signed by: Cr Hays MD 04/30/2024 10:11 AM [facility] Assessment and Plan (1) DVT (deep venous thrombosis): Qualifiers: Affected thrombotic vein of extremity: unspecified vein of extremity Chronicity: chronic DVT location: lower extremity Laterality: left Qualified Code(s): I82.502 - Chronic embolism and thrombosis of unspecified deep veins of left lower extremity Status: Acute Plan 68 year old women admitted by orthopedic surgery for hip fracture repair RTHA management as per surgical team pain management HTN, elevated reading lisinopril 5 mg daily hyralazine for SBP>180 monitor Asthma/COPD inhalors as needed Normocytic anemia no acute bleed stable HH iron supplement GERD PPI DVT prophylaxis with Eliquis Full code
[2024-04-30 13:14] LABS: Creatinine Clr Calc Pharmacy 35.4; Estimated Glomerular Filt Rate 46
[2024-04-30] MEDS: lisinopriL 5 MG TABLET PO (13:40)
[2024-04-30] MEDS: 0.9 % Sodium Chloride Flush 3 ML SYRINGE IVFLUSH ×2 (15:59→19:52)
[2024-04-30] MEDS: hydrALAZINE HCl 20 MG/ML VIAL 5 MG IVPUSH ×2 (16:03→18:27)
[2024-04-30] MEDS: HYDROmorphone HCl 0.5 MG/0.5 ML SYRINGE 0.25 MG IVPUSH (16:16)
--- NOTE | 2024-04-30 17:32 | PHA.MEDREC ---
Pharmacy Consult ? Medication Reconciliation Pharmacy has completed the medication reconciliation. Spoke with patients daughter Bernice and she was able to confirm her moms medications. The daughter confirmed her moms Oxycodone 10mg tab three times a day and states her mom is taking a Tylenol 325mg tab with it three times a day. She confirmed her mom has Trellegy still at home but states she has not seen her mom use it in months. The daughter confirmed her mom stopped taking Eliquis 5mg tab and Tizanidine 4mg tab last Monday for the surgery and confirmed her mom is going to start those again. The daughter confirmed her mom is taking the Tizanidine 4mg tab as needed only once at bedtime due to it making her too loopy when taking it.
--- NOTE | 2024-04-30 17:39 | PHA.MEDREC ---
Addendum entered by Tone Zayas RPh 04/30/24 17:56: Med rec was reviewed by Jeffrey. Original Note: Pharmacy Consult ? Medication Reconciliation Pharmacy has completed the medication reconciliation. Spoke with patients daughter Bernice and she was able to confirm her moms medications. The daughter confirmed her moms Oxycodone 10mg tab three times a day and states her mom is taking a Tylenol 325mg tab with it three times a day. She confirmed her mom has Trellegy still at home but states she has not seen her mom use it in months. The daughter confirmed her mom stopped taking Eliquis 5mg tab and Tizanidine 4mg tab last Monday for the surgery and confirmed her mom is going to start those again. The daughter confirmed her mom is taking the Tizanidine 4mg tab as needed only once at bedtime due to it making her too loopy when taking it. The daughter confirmed her mom took the rest of her medications this morning.
[2024-04-30] MEDS: vancomycin HCL 1,000 MG in 0.9 % Sodium Chloride 250 ML 270 MG IV (18:27)
[2024-04-30] MEDS: Celecoxib 200 MG CAPSULE PO (19:47)
[2024-04-30] MEDS: Docusate Sodium 100 MG CAPSULE PO (19:47)
[2024-04-30] MEDS: TiZANidine HCL 4 MG TABLET PO (19:48)
[2024-04-30] MEDS: Sodium Bicarbonate 650 MG TABLET PO (19:49)
[2024-04-30] MEDS: oxyCODONE HCl Immed Release 5 MG TABLET 10 MG PO (20:00)
--- NOTE | 2024-04-30 21:09 | P.DS_ITS ---
DS: Providers Provider Date of Service: 05/03/24 Date of discharge: 05/03/24 Primary care physician: Gabbi Womack MD Consults: 04/30/24 11:12 Consult to Hospitalist Routine Comment: Consulting Provider: [facility] Hospitalists Reason For Exam: medical managment, h./o DVT on eliquis DS: Diagnosis Discharge Diagnosis (1) DVT (deep venous thrombosis): Status: Inactive DS: Summary Hospital Course Hospital Course: The patient underwent a successful right total hip arthroplasty, they were transferred to PACU and then to the floor to recover. During their stay, their vitals were stable, afebrile at 99.2. Labs were unremarkable, H/H 9.8/29.0. POD 1 they were started on Lovenox for DVT ppx and resumed Eliquis 48 hours post op, they also received Physical Therapy services twice a day. Prior to discharge, their dressing was clean dry and intact, and the plan was to be discharged to rehab. Time Attestation Discharge Coordination Time (in mins): 30 Quality: Safe Use of Opioids Does Pt have an Active Cancer Diagnosis on the Problem List?: No Quality: Stroke Does the patient have a stroke diagnosis?: No Physical Exam Vital Signs: Vital Signs: Last Vital Signs Temp 98.4 F 04/30/24 20:00 Pulse 118 H 04/30/24 20:00 Resp 20 04/30/24 20:00 BP 160/80 H 04/30/24 20:00 Pulse Ox 97 04/30/24 20:00 O2 Del Method Room Air 04/30/24 20:00 O2 Flow Rate 2.0 04/30/24 15:29 BMI result Body Mass Index 25.5 Const: General: cooperative, healthy appearing and no acute distress Resp: Effort & Inspection: normal respiratory effort and able to speak in complete sentences Cardio: Rate: regular rate Peripheral pulses: Peripheral pulses 2+ throughout GI: Palpation (GI): Soft to palpation Skin: Lesions: no lesions Rashes: no rashes Extrem: Other: right hip dressing is c/d/i. Able to dorsi/plantar flex. Calf is supple and nontender. Sensation intact. Pedal pulse intact. DS: Data Data Completed and Pending Completed studies during hospitalization [Text1]: Procedures Removal of Synthetic Substitute from Left Hip Joint, Open Approach (09/06/23) Replacement of Left Hip Joint with Ceramic Synthetic Substitute, Uncemented, Open Approach (09/06/23) Pending studies at discharge: Pending at discharge 04/30/24 08:21 Surgical [PTH] Routine Labs on day of discharge: Laboratory Results - last 24 hr 04/30/24 04/30/24 04/30/24 07:07 10:25 11:22 Hgb 11.0 L Hct 34.1 L Creatinine Estim Creat Clear Calc Estimated GFR POC Glucose 164 H 181 H 04/30/24 12:56 Hgb Hct Creatinine 1.18 Estim Creat Clear Calc 35.4 Estimated GFR 46 POC Glucose Discharge Plan Discharge Patient Disposition: Home, Self-Care Referrals: [facility] [Outside] - 1 Week (SHORT TERM REHAB) Martha Trent PA-C [Physician Farrowing Manager] - 2 Weeks (05/16/24 10:15 [facility] Surgeons Martha Trent PA-C) Discharge Medications: New acetaminophen 325 mg Tablet 650 mg PO Q6H PRN (Reason: Pain, Mild 1-3,Fever,Headache) 30 Days Qty: 240 0RF oxycodone 10 mg tablet 10 mg PO Q4H PRN (Reason: Pain, Moderate(Pain Scale 4-6)) 7 Days Qty: 42 0RF Rx Instructions: Partial Fill upon patient request. docusate sodium 100 mg Capsule 100 mg PO BID 30 Days Qty: 60 0RF Continued (DME) walker [facility] See Rx Instructions .ROUTE .MEDSUPPLY Qty: 1 0RF Rx Instructions: Folding front wheeled walker (DME) Raised toilet seat See Rx Instructions .ROUTE .MEDSUPPLY Qty: 1 0RF Rx Instructions: duration - 99 days atorvastatin 20 mg Tablet 20 mg PO BEDTIME albuterol sulfate [Ventolin HFA] 90 mcg/actuation HFA aerosol inhaler 2 puff inhalation Q6H PRN (Reason: wheezing) cetirizine 10 mg tablet 10 mg PO BEDTIME diclofenac sodium 1 % gel 1 g topical BID PRN (Reason: Pain) lidocaine 5 % Adhesive Patch,Medicated 1 patch TOPICAL DAILY PRN (Reason: Pain) Rx Instructions: leave on most painful area for up to 12 hrs omeprazole 20 mg capsule,delayed release(DR/EC) 20 mg PO DAILY@0630 morphine 15 mg tablet extended release 15 mg PO BEDTIME nystatin 100,000 unit/gram Cream 1 appl TOPICAL BID PRN (Reason: Rash) docusate sodium 100 mg capsule 100 mg PO BID PRN (Reason: Constipation) vitamin B complex-folic acid [B Complex 1 (with folic acid)] 0.4 mg tablet 1 tab DAILY duloxetine 30 mg capsule,delayed release(DR/EC) 30 mg PO DAILY oxycodone 10 mg tablet 10 mg PO TID Rx Instructions: Taken with Acetaminophen 325mg tab ezetimibe 10 mg tablet 10 mg PO BEDTIME tizanidine 4 mg tablet 4 mg PO BEDTIME PRN (Reason: Muscle Spasm) Eliquis 5 mg tablet 5 mg PO BID ferrous sulfate 325 mg (65 mg iron) tablet 325 mg PO DAILY sodium bicarbonate 650 mg tablet 650 mg PO BID Discontinued acetaminophen 325 mg tablet 325 mg PO TID Rx Instructions: Taken with Oxycodone 10mg tab acetaminophen 650 mg tablet extended release 650 mg PO BEDTIME PRN (Reason: Pain) ibuprofen [IBU] 800 mg tablet 800 mg PO TID PRN (Reason: Pain) Discharge Orders: Discharge Order (Routine); Ordered 05/03/24 Ordered By: Martha Trent Diet: Advance to usual diet Activity on Discharge: Use cane or walker Activity Restrictions/Additional Instructions: * Physical Therapy for Total hip arthroplasty: wbat, posterior precautions, gait training, ROM, strength * Limit stair climbing * No showering, no tub bath-keep dressing clean, dry and intact * No driving x6 weeks * follow up with orthopedics on : 05/16/24 10:15 [facility] Martha Trent PA-C Last dose of Lovenox zoraida given on 05/01/24 Resume Eliquis on 05/02/24 Print Language: Slovenian
[2024-05-01] VITALS (7 sets, daily range): BP systolic 124–175; BP diastolic 42–103; PULSE 76–106; RESP 15–18; TEMP 36.3–37.1; O2SAT 88–97
[2024-05-01] MEDS: Lactated Ringers 1,000 ML 100 ML IVCONT (02:53)
[2024-05-01] MEDS: oxyCODONE HCl Immed Release 5 MG TABLET 10 MG PO ×4 (03:32→23:05)
[2024-05-01] MEDS: Omeprazole 20 MG CAPSULE.DR PO (05:49)
[2024-05-01 06:32] LABS: MANUAL DIFF FLAG NO
[2024-05-01 06:34] LABS: Basophils Absolute Auto 0.1 X10*3/uL (0.0-0.2); Basophils Percent Auto 0.8 % (0-2); Eosinophils Absolute Auto 0.1 X10*3/uL (0.0-0.4); Eosinophils Percent Auto 0.9 % (0-4); Hematocrit 26.6 % (37.0-47.0); Hemoglobin 8.4 g/dl (12.0-16.0); Imm Gran Abs Auto 0.08 X10*3/uL (0.00-0.03); Lymphocytes Percent Auto 12.1 % (20-40); Mean Corpuscular HGB Conc 31.6 g/dl (31.0-35.0); Mean Corpuscular Hemoglobin 27.6 pg (27.0-33.0); Mean Corpuscular Volume 87.5 fL (80.0-98.0); Mean Platelet Volume 9.4 fL (9.4-12.3); Monocytes Absolute Auto 1.2 X10*3/uL (0.1-1.2); Monocytes Percent Auto 15.4 % (2-11); Neutrophils Absolute Auto 5.6 x10*3/uL (2.0-8.3); Neutrophils Percent Auto 69.8 % (45-73); Platelet Count 353 X10*3/uL (160-400); Red Blood Count 3.04 X10*6/uL (4.20-5.50); Red Cell Distribution Width 16.3 % (11.0-16.0)
[2024-05-01 07:11] LABS: Anion Gap 13 (12-20); Blood Urea Nitrogen 27 mg/dL (9-16); Calcium 8.7 mg/dL (8.4-10.2); Carbon Dioxide 16 mmol/L (22-29); Chloride 124 mmol/L (96-108); Estimated Glomerular Filt Rate 49; Glucose Fasting 153 mg/dL (60-99); Sodium 150 mmol/L (135-145)
[2024-05-01] MEDS: Celecoxib 200 MG CAPSULE PO (07:15)
[2024-05-01] MEDS: Enoxaparin Sodium 40 MG/0.4 ML SYRINGE SUBCUT (07:15)
[2024-05-01] MEDS: lisinopriL 10 MG TABLET PO (07:15)
[2024-05-01] MEDS: Loratadine 10 MG TABLET PO (07:16)
[2024-05-01] MEDS: Sodium Bicarbonate 650 MG TABLET PO ×5 (07:16→20:36)
[2024-05-01] MEDS: oxyCODONE HCl ER 10 MG TAB.ER.12H PO ×2 (07:16→20:36)
[2024-05-01] MEDS: Multivitamin TABLET 1 TAB PO (07:16)
[2024-05-01] MEDS: Ezetimibe 10 MG TABLET PO (07:16)
[2024-05-01] MEDS: Lidocaine 4 % Patch ADH..PATCH 1 PATCH TRANSDERMA (07:17)
[2024-05-01] MEDS: Ferrous Sulfate 324 MG TABLET.DR PO (07:17)
[2024-05-01] MEDS: Docusate Sodium 100 MG CAPSULE PO ×2 (07:17→20:36)
--- NOTE | 2024-05-01 07:36 | PM.PNORT ---
Subjective Subjective Date of Service: 05/01/24 Interval history: POD1 s/p RTHA Patient is resting in bed comfortably No overnight events Pain is managed No additional complaints Physical Exam Vital Signs: Vital Signs: Last Vital Signs Temp 98.8 F 05/01/24 03:40 Pulse 76 05/01/24 03:40 Resp 18 05/01/24 03:40 BP 124/85 05/01/24 03:40 Pulse Ox 97 05/01/24 03:40 O2 Del Method Room Air 05/01/24 03:40 O2 Flow Rate 2.0 04/30/24 15:29 BMI result Body Mass Index 25.5 Const: General: cooperative, healthy appearing and no acute distress Resp: Effort & Inspection: normal respiratory effort and able to speak in complete sentences Cardio: Rate: regular rate Peripheral pulses: Peripheral pulses 2+ throughout GI: Palpation (GI): Soft to palpation Skin: Lesions: no lesions Rashes: no rashes Extrem: Other: rt hip dressing is c/d/i. Able to dorsi/plantar flex. Calf is supple and nontender. Sensation intact. Pedal pulse intact. Procedures Date of Service Date of Service: 05/01/24 Progress Note: A&P Assessment and plan (1) S/P total right hip arthroplasty: Status: Acute Plan Continue pain mgmnt Begin Lovenox for dvt ppx resume Eliquis 48 hours post op begin PT/OT for RTHA Dispo planning-Pending PT eval, pain mgmnt Time Spent With Patient Time: Total time managing care of this patient today ____ minutes. Quality Stroke Does the patient have a stroke diagnosis?: No VTE Prior VTE?: No VTE Risk Level:: Medical - moderate - high VTE Device Contraindication: N/A - Device Ordered VTE Drug Contraindication: N/A - Med Ordered
[2024-05-01 07:38] LABS: Potassium 2.8 mmol/L (3.3-5.1)
[2024-05-01] MEDS: Fluticasone/Umeclidinium/Vilanterol 100/62.5/25 BLST.W.DEV 1 PUFF INHALE (08:03)
--- NOTE | 2024-05-01 08:04 | HO.POSTANES ---
Post Anesthesia Evaluation Post Anesthesia Evaluation Date of Service: 05/01/24 Vital Signs: Vital Signs Temp Pulse Resp BP Pulse Ox O2 Del Method 05/01/24 07:39 97.4 F 78 16 05/01/24 03:40 98.8 F 76 18 124/85 97 Room Air 04/30/24 23:58 97.4 F 80 18 110/51 L 93 Room Air Anesthesia: General Endotracheal-GETA Mental Status: Awake Pain Control: Satisfactory Nausea/Vomiting: None Hydration: Adequate Anesthesia-Related Issues: No Anes. Related Issues
[2024-05-01] MEDS: Dextrose 5 % 1,000 ML 50 ML IVCONT (09:11)
[2024-05-01] MEDS: Acetaminophen 325 MG TABLET 650 MG PO (09:13)
[2024-05-01] MEDS: Potassium Chloride ER 20 MEQ TAB.ER.PRT 40 MEQ PO ×2 (09:13→18:12)
[2024-05-01 09:20] LABS: Magnesium 2.1 mg/dL (1.6-2.6)
[2024-05-01] MEDS: 0.9 % Sodium Chloride 1,000 ML 999 ML IV (09:44)
[2024-05-01] MEDS: Potassium Chloride/H20 10 MEQ/100 ML PIGGYBACK 100 MEQ IV ×2 (11:42→12:31)
--- NOTE | 2024-05-01 11:48 | HO.PM.IMPN ---
Subjective Subjective Date of Service: 05/01/24 Interval History: hypernatremia ,hypokalemia Review of Systems denies any new c/o has some soarness with walking Physical Exam Vital Signs: Vital Signs: Last Vital Signs Temp 97.4 F 05/01/24 07:39 Pulse 95 05/01/24 08:07 Resp 16 05/01/24 08:07 BP 146/70 H 05/01/24 07:45 Pulse Ox 97 05/01/24 03:40 O2 Del Method Room Air 05/01/24 03:40 O2 Flow Rate 2.0 04/30/24 15:29 BMI result Body Mass Index 25.5 Appearance: Alert.? Oriented X3. cvs: rrr, [id number]. res: clear to auscultation ,no rhonchii or wheezing abd: no rebound or guarding ,nt, bs present. ext pulses present , no cyanosis. neuro: axo3 , nonfocal. Objective Data Active Medications Acetaminophen (Acetaminophen 325 Mg Tablet) 650 mg PO Q6H PRN PRN Reason: Pain, Mild 1-3,fever,headache Last Admin: 05/01/24 09:13 Dose: 650 mg Documented By: FRANCK Albuterol Sulfate (Albuterol Sulfate 90 Mcg 8 Gm Inhaler) 2 puff INHALE Q6H PRN PRN Reason: wheezing Apixaban (Apixaban 5 Mg Tablet) 5 mg PO BID [facility] Docusate Sodium (Docusate Sodium 100 Mg Capsule) 100 mg PO BID [facility] Last Admin: 05/01/24 07:17 Dose: 100 mg Documented By: EMILIA Ezetimibe (Ezetimibe 10 Mg Tablet) 10 mg PO DAILY [facility] Last Admin: 05/01/24 07:16 Dose: 10 mg Documented By: EMILIA Enoxaparin Sodium (Enoxaparin Sodium 40 Mg/0.4 Ml Syringe) 40 mg SUBCUT Q24H [facility] Stop: 05/02/24 08:01 Last Admin: 05/01/24 07:15 Dose: 40 mg Documented By: EMILIA Ferrous Sulfate (Ferrous Sulfate 324 Mg Tablet.) 324 mg PO DAILY [facility] Last Admin: 05/01/24 07:17 Dose: 324 mg Documented By: EMILIA Fluticasone/Umeclidinium/Vilanterol (Fluticasone/Umeclidinium/Vilanterol 100/62.5/25 Blst.W.Dev) 1 puff INHALE RDAILY [facility] Last Admin: 05/01/24 08:03 Dose: 1 puff Documented By: JASMIN Hydralazine HCl (Hydralazine Hcl 20 Mg/Ml Vial) 5 mg IVPUSH Q6H PRN; Protocol PRN Reason: SBP>180 Last Admin: 04/30/24 16:03 Dose: 5 mg Documented By: BESSIE Hydromorphone HCl (Hydromorphone Hcl 0.5 Mg/0.5 Ml Syringe) 0.25 mg IVPUSH Q4H PRN; Protocol PRN Reason: Pain, Severe (Pain Scale 7-10) Last Admin: 04/30/24 16:16 Dose: 0.25 mg Documented By: BESSIE Dextrose (D5w) 1,000 mls @ 50 mls/hr IVCONT .Q20H [facility] Last Infusion: 05/01/24 09:23 Dose: 0 mls/hr Documented By: FRANCK Potassium Chloride (Potassium Chloride/H20) 10 meq in 100 mls @ 100 mls/hr IV Q1H [facility] Stop: 05/01/24 11:59 Last Admin: 05/01/24 11:42 Dose: 100 mls/hr Documented By: FRANCK Lidocaine (Lidocaine 4 % Patch Adh..Patch) 1 patch TRANSDERMA DAILY [facility] Last Admin: 05/01/24 07:17 Dose: 1 patch Documented By: EMILIA Lisinopril (Lisinopril 10 Mg Tablet) 10 mg PO DAILY [facility]; Protocol Last Admin: 05/01/24 07:15 Dose: 10 mg Documented By: EMILIA Loratadine (Loratadine 10 Mg Tablet) 10 mg PO DAILY [facility] Last Admin: 05/01/24 07:16 Dose: 10 mg Documented By: EMILIA Multivitamins/Vitamin C (Multivitamin Tablet) 1 tab PO DAILY [facility] Last Admin: 05/01/24 07:16 Dose: 1 tab Documented By: EMILIA Nystatin (Nystatin Cream 15 Gm Tube) 1 appl TOPICAL BID PRN; Protocol PRN Reason: Rash Omeprazole (Omeprazole 20 Mg Capsule.Dr) 20 mg PO DAILY@0630 [facility] Last Admin: 05/01/24 05:49 Dose: 20 mg Documented By: RODRIGO Ondansetron HCl (Ondansetron Hcl 4 Mg/2 Ml Vial) 4 mg IVPUSH Q8H PRN PRN Reason: Nausea and Vomiting Oxycodone HCl (Oxycodone Hcl Immed Release 5 Mg Tablet) 10 mg PO Q4H PRN PRN Reason: Pain, Moderate(Pain Scale 4-6) Last Admin: 05/01/24 07:16 Dose: 10 mg Documented By: EMILIA Oxycodone HCl (Oxycodone Hcl Er 10 Mg Tab.Er.12h) 10 mg PO BID [facility] Last Admin: 05/01/24 07:16 Dose: 10 mg Documented By: EMILIA Sodium Bicarbonate (Sodium Bicarbonate 650 Mg Tablet) 650 mg PO QID [facility] Last Admin: 05/01/24 09:22 Dose: 650 mg Documented By: FRANCK Sodium Chloride (0.9 % Sodium Chloride Flush 3 Ml Syringe) 3 ml IVFLUSH QSHIFT [facility] Last Admin: 05/01/24 07:17 Dose: Not Given Documented By: EMILIA Non-Admin Reason: IV Running Tizanidine HCl (Tizanidine Hcl 4 Mg Tablet) 4 mg PO BEDTIME [facility] Last Admin: 04/30/24 19:48 Dose: 4 mg Documented By: RODRIGO Labs 05/01/24 06:15 05/01/24 12:16 Labs: Laboratory Results - last 24 hr 04/30/24 05/01/24 12:56 06:15 MCV 87.5 MCH 27.6 MCHC 31.6 RDW 16.3 H Plt Count 353 MPV 9.4 Immature Gran % (Auto) 1.0 H Neut % (Auto) 69.8 Lymph % (Auto) 12.1 L [place] % (Auto) 15.4 H Eos % (Auto) 0.9 Baso % (Auto) 0.8 Lymph # (Auto) 1.0 L [place] # (Auto) 1.2 Eos # (Auto) 0.1 Baso # (Auto) 0.1 Abs Immat Gran (auto) 0.08 H Absolute Neuts (auto) 5.6 Absolute Nucleated RBC 0.000 Nucleated RBC % (auto) 0.0 Anion Gap 13 Estim Creat Clear Calc 35.4 38.0 Estimated GFR 46 49 Fasting Glucose 153 H Calcium 8.7 Magnesium 2.1 Assessment and Plan (1) S/P total right hip arthroplasty: Status: Acute (2) Hypernatremia: Status: Acute (3) Hypokalemia: Status: Acute Assessment and Plan: 68 year old women admitted by orthopedic surgery for hip fracture repair RTHA management as per surgical team pain management hyponatremia /hypokalemia : due to dec po intake and ivf sodium seems improving potassium repleted iv and po. bicarb in 16 range -patient takes bicarb at home HTN, elevated reading continue lisinopril Asthma(mild intermittent)/COPD inhailar as needed Normocytic anemia no acute bleed h/h trending down in 8.4 range iron supplement dvt hx: on eliquis GERD PPI DVT prophylaxis with Eliquis Full code Quality Stroke Does the patient have a stroke diagnosis?: No VTE Prior VTE?: No VTE Risk Level:: Medical - moderate - high VTE Device Contraindication: N/A - Device Ordered VTE Drug Contraindication: N/A - Med Ordered
[2024-05-01 12:38] LABS: Sodium 148 mmol/L (135-145)
--- NOTE | 2024-05-01 15:42 | MHC.CM.PN ---
PATIENT LIVES IN A HOME ALONE. DAUGHTER IS FAMILY AND DIVORCE LEGAL ASSISTANT 43 HRS/WK AND ASSISTS W/ ADLS. AMBULATES W/ WHEELED WALKER. PCP GARETT ALFARO REPORTS SHE HAS AN HCP NAMING DAUGHTER JUAN DAVID [facility]. COPY REQUESTED. WILL COMPLETE NEW HCP IF DTR CANNOT FIND IT. DP: PT REC AR. PER ALL 3 LOCAL AR'S PATIENT WILL NOT QUALIFY. DISCUSSED STR - PATIENT IS AGREEABLE AND DOES NOT HAVE A FACILITY PREFERENCE, BUT WOULD LIKE TO STAY IN [place]. REFERRALS TO LOCAL FACILITIES SENT VIA [facility]. AWAITING BED OFFER. CM WILL CONTINUE TO FOLLOW.
[2024-05-01 17:33] LABS: Anion Gap 12 (12-20); Blood Urea Nitrogen 23 mg/dL (9-16); Carbon Dioxide 14 mmol/L (22-29); Chloride 125 mmol/L (96-108); Creatinine Clr Calc Pharmacy 40.2; Estimated Glomerular Filt Rate 53; Glucose Random 231 mg/dL (60-115); Potassium 2.9 mmol/L (3.3-5.1); Sodium 148 mmol/L (135-145)
--- NOTE | 2024-05-01 17:54 | PC.NURSE ---
After Dr Ruiz notified via [employer] from lab of critical potassium, Asked staff to report it to the position classification manager PA. Message sent to Martha Trent at [phone]. Message not read and acknowledged until 901. Dr Polanco notified of critical labs and in to see pt. New orders entered into computer.
[2024-05-01 19:39] LABS: VBG Base Excess -6.6 mmol/L; VBG HCO3 16 mmol/L (22-26); VBG pCO2 25 mmHg; VBG pH 7.42 (7.32-7.43); VBG pO2 134 mmHg
[2024-05-01 19:40] LABS: Venous Blood Gas Refer to POC result
[2024-05-01] MEDS: TiZANidine HCL 4 MG TABLET PO (20:36)
[2024-05-01] MEDS: 0.9 % Sodium Chloride Flush 3 ML SYRINGE IVFLUSH (23:08)
[2024-05-02] MEDS: oxyCODONE HCl Immed Release 5 MG TABLET 10 MG PO ×4 (04:00→17:22)
[2024-05-02] MEDS: Omeprazole 20 MG CAPSULE.DR PO (05:25)
[2024-05-02 06:33] LABS: MANUAL DIFF FLAG NO
[2024-05-02 06:45] LABS: Basophils Percent Auto 0.5 % (0-2); Eosinophils Absolute Auto 0.2 X10*3/uL (0.0-0.4); Hematocrit 23.4 % (37.0-47.0); Hemoglobin 7.4 g/dl (12.0-16.0); Imm Gran Abs Auto 0.16 X10*3/uL (0.00-0.03); Imm Gran Pct Auto 2.1 % (0.0-0.4); Lymphocytes Percent Auto 13.4 % (20-40); Mean Corpuscular HGB Conc 31.6 g/dl (31.0-35.0); Mean Corpuscular Hemoglobin 27.6 pg (27.0-33.0); Mean Corpuscular Volume 87.3 fL (80.0-98.0); Mean Platelet Volume 10.2 fL (9.4-12.3); Neutrophils Absolute Auto 5.1 x10*3/uL (2.0-8.3); Platelet Count 266 X10*3/uL (160-400); Red Blood Count 2.68 X10*6/uL (4.20-5.50); Red Cell Distribution Width 16.3 % (11.0-16.0); White Blood Count 7.5 X10*3/uL (4.8-10.8)
[2024-05-02 06:55] LABS: Anion Gap 11 (12-20); Blood Urea Nitrogen 21 mg/dL (9-16); Calcium 8.5 mg/dL (8.4-10.2); Carbon Dioxide 17 mmol/L (22-29); Chloride 120 mmol/L (96-108); Creatinine Clr Calc Pharmacy 45.4; Estimated Glomerular Filt Rate > 60; Glucose Fasting 128 mg/dL (60-99); Potassium 3.4 mmol/L (3.3-5.1); Sodium 145 mmol/L (135-145)
[2024-05-02] MEDS: Fluticasone/Umeclidinium/Vilanterol 100/62.5/25 BLST.W.DEV 1 PUFF INHALE (08:08)
[2024-05-02] MEDS: oxyCODONE HCl ER 10 MG TAB.ER.12H PO ×2 (08:19→20:15)
[2024-05-02] MEDS: Apixaban 5 MG TABLET PO (08:19)
[2024-05-02] MEDS: Ferrous Sulfate 324 MG TABLET.DR PO (08:20)
[2024-05-02] MEDS: Loratadine 10 MG TABLET PO (08:20)
[2024-05-02] MEDS: Docusate Sodium 100 MG CAPSULE PO ×2 (08:20→20:16)
[2024-05-02] MEDS: lisinopriL 10 MG TABLET PO (08:20)
[2024-05-02] MEDS: Multivitamin TABLET 1 TAB PO (08:20)
[2024-05-02] MEDS: Sodium Bicarbonate 650 MG TABLET PO ×4 (08:20→20:16)
[2024-05-02] MEDS: Ezetimibe 10 MG TABLET PO (08:20)
[2024-05-02] MEDS: Lidocaine 4 % Patch ADH..PATCH 1 PATCH TRANSDERMA (08:22)
--- NOTE | 2024-05-02 08:58 | P.PNOP_ITS ---
Subjective Subjective Date of Service: 05/02/24 Interval history: POD2 s/p RTHA Patient is resting in bed comfortably No overnight events Pain is managed No additional complaints Physical Exam Vital Signs: Vital Signs: Last Vital Signs Temp 99.6 F 05/02/24 07:41 Pulse 87 05/02/24 08:08 Resp 16 05/02/24 08:08 BP 142/79 H 05/02/24 07:41 Pulse Ox 97 05/02/24 07:41 O2 Del Method Room Air 05/02/24 07:41 O2 Flow Rate 2.0 04/30/24 15:29 BMI result Body Mass Index 25.5 Const: General: cooperative, healthy appearing and no acute distress Resp: Effort & Inspection: normal respiratory effort and able to speak in complete sentences Cardio: Rate: regular rate Peripheral pulses: Peripheral pulses 2+ throughout GI: Palpation (GI): Soft to palpation Skin: Lesions: no lesions Rashes: no rashes Extrem: Other: rt hip dressing is c/d/i. Able to dorsi/plantar flex. Calf is supple and nontender. Sensation intact. Pedal pulse intact. abducttion pillow inplace Procedures Date of Service Date of Service: 05/02/24 Progress Note: A&P Assessment and plan (1) S/P total right hip arthroplasty: Status: Acute Plan Continue pain mgmnt Lovenox for dvt ppx resume Eliquis 48 hours post op PT/OT for RTHA 2Units Prbcs Dispo planning-Pending PT eval, pain mgmnt Time Spent With Patient Time: Total time managing care of this patient today ____ minutes. Quality Stroke Does the patient have a stroke diagnosis?: No VTE Prior VTE?: No VTE Risk Level:: Medical - moderate - high VTE Device Contraindication: N/A - Device Ordered VTE Drug Contraindication: N/A - Med Ordered
[2024-05-02] MEDS: Acetaminophen 325 MG TABLET 650 MG PO (10:52)
--- NOTE | 2024-05-02 13:41 | P.CONNP_ITS ---
History of Present Illness Reason for Consult Consult date: 05/02/24 Chief Complaint Chief complaint: Unilateral primary osteoarthritis, right hip History of Present Illness Narrative: 68-year-old woman with history of hyperlipidemia, hypertension who was admitted by Orthopedic surgery and is status post right total hip arthroplasty. Surgery was unremarkable. Her blood pressure was noted to be elevated. She had been having mild ALE with hypernatremia and hypokalemia with metabolic acidosis. Nephrology has been consulted to assist in her clinical care during her current hospital stay Review of Systems Review of Systems Yes all other systems are reviewed and are negative [facility] Past Medical History Medical History (Updated 05/02/24 @ 13:45 by Miguel Mohan MD) DVT (deep venous thrombosis) History of kidney infection (~08/2023) DVT (deep venous thrombosis) Diabetes Elevated blood pressure reading with diagnosis of hypertension Abdominal hernia Asthma Arthritis Osteoarthritis (arthritis due to wear and tear of joints) COVID-19 vaccine series completed Full dentures Arthritis of left hip Low back pain Liver cyst COPD (chronic obstructive pulmonary disease) Elevated cholesterol Surgical History Surgical History S/P insertion of IVC (inferior vena caval) filter (02/07/24) History of total left hip arthroplasty (08/29/23) Hx of gastric bypass Hx of ankle fusion Status post insertion of nerve stimulator Hx of colonoscopy Hx of carpal tunnel repair History of back surgery Social History Social History Household Members: None Housing: Condominium Are you a primary mall plant caretaker to a significant other at home: No Do you presently have visiting nurse or other home services: No Comment: pt rings appropriately Patient Tobacco Use Status: Former Tobacco user Tobacco use type: Cigarette Cigarettes Per Day: 60 Years Smoked: quit 15 years ago Smoked in Last 30 Days: No Second Hand Smoke Exposure: No Use of substances other than those prescribed or required for medical reasons: Unknown Currently Displaying Signs/Symptoms of Drug Intoxication Withdrawal: No Have you been hit, kicked, punched, or otherwise hurt by someone within the past year? If so, by whom?: No Buddhism Healthcare Practices: Alevism Are you DNR?: No Advance Directives: No Advance Directives Information Provided: Yes Advance Directives on File: No Do you have a plan to hurt others: No Plan Recently lost weight without trying: Unsure Patient : No Poor oral hygiene: No service: No Meds Allergies Allergy/AdvReac Type Severity Reaction Status Date / Time Sulfa (Sulfonamide Allergy Severe throat Verified 04/30/24 07:36 Antibiotics) swelling metformin AdvReac Intermediate diarrhea Verified 04/30/24 07:36 semaglutide [From Ozempic] AdvReac Intermediate pancreatiti Verified 04/30/24 07:36 s Active Medications: Current Medications Acetaminophen (Acetaminophen 325 Mg Tablet) 650 mg PO Q6H PRN PRN Reason: Pain, Mild 1-3,fever,headache Last Admin: 05/02/24 10:52 Dose: 650 mg Albuterol Sulfate (Albuterol Sulfate 90 Mcg 8 Gm Inhaler) 2 puff INHALE Q6H PRN PRN Reason: wheezing Apixaban (Apixaban 5 Mg Tablet) 5 mg PO BID [facility] Last Admin: 05/02/24 08:19 Dose: 5 mg Docusate Sodium (Docusate Sodium 100 Mg Capsule) 100 mg PO BID [facility] Last Admin: 05/02/24 08:20 Dose: 100 mg Ezetimibe (Ezetimibe 10 Mg Tablet) 10 mg PO DAILY [facility] Last Admin: 05/02/24 08:20 Dose: 10 mg Ferrous Sulfate (Ferrous Sulfate 324 Mg Tablet.Dr) 324 mg PO DAILY [facility] Last Admin: 05/02/24 08:20 Dose: 324 mg Fluticasone/Umeclidinium/Vilanterol (Fluticasone/Umeclidinium/Vilanterol 100/62.5/25 Blst.W.Dev) 1 puff INHALE RDAILY [facility] Last Admin: 05/02/24 08:08 Dose: 1 puff Hydralazine HCl (Hydralazine Hcl 20 Mg/Ml Vial) 5 mg IVPUSH Q6H PRN; Protocol PRN Reason: SBP>180 Last Admin: 04/30/24 16:03 Dose: 5 mg Hydromorphone HCl (Hydromorphone Hcl 0.5 Mg/0.5 Ml Syringe) 0.25 mg IVPUSH Q4H PRN; Protocol PRN Reason: Pain, Severe (Pain Scale 7-10) Last Admin: 04/30/24 16:16 Dose: 0.25 mg Lidocaine (Lidocaine 4 % Patch Adh..Patch) 1 patch TRANSDERMA DAILY [facility] Last Admin: 05/02/24 08:22 Dose: 1 patch Lisinopril (Lisinopril 10 Mg Tablet) 10 mg PO DAILY [facility]; Protocol Last Admin: 05/02/24 08:20 Dose: 10 mg Loratadine (Loratadine 10 Mg Tablet) 10 mg PO DAILY [facility] Last Admin: 05/02/24 08:20 Dose: 10 mg Multivitamins/Vitamin C (Multivitamin Tablet) 1 tab PO DAILY [facility] Last Admin: 05/02/24 08:20 Dose: 1 tab Nystatin (Nystatin Cream 15 Gm Tube) 1 appl TOPICAL BID PRN; Protocol PRN Reason: Rash Omeprazole (Omeprazole 20 Mg Capsule.Dr) 20 mg PO DAILY@30 [facility] Last Admin: 05/02/24 05:25 Dose: 20 mg Ondansetron HCl (Ondansetron Hcl 4 Mg/2 Ml Vial) 4 mg IVPUSH Q8H PRN PRN Reason: Nausea and Vomiting Oxycodone HCl (Oxycodone Hcl Immed Release 5 Mg Tablet) 10 mg PO Q4H PRN PRN Reason: Pain, Moderate(Pain Scale 4-6) Last Admin: 05/02/24 12:45 Dose: 10 mg Oxycodone HCl (Oxycodone Hcl Er 10 Mg Tab.Er.12h) 10 mg PO BID [facility] Last Admin: 05/02/24 08:19 Dose: 10 mg Sodium Bicarbonate (Sodium Bicarbonate 650 Mg Tablet) 650 mg PO QID [facility] Last Admin: 05/02/24 12:45 Dose: 650 mg Sodium Chloride (0.9 % Sodium Chloride Flush 3 Ml Syringe) 3 ml IVFLUSH QSHIFT [facility] Last Admin: 05/02/24 08:21 Dose: Not Given Tizanidine HCl (Tizanidine Hcl 4 Mg Tablet) 4 mg PO BEDTIME [facility] Last Admin: 05/01/24 20:36 Dose: 4 mg Home Medications ?Medication ?Instructions ?Recorded ?Confirmed ?Last Taken ?Type albuterol sulfate 90 mcg/actuation 2 puff inhalation Q6H PRN wheezing 11/16/20 04/30/24 09/06/23 06:00 History aerosol inhaler (Ventolin HFA) atorvastatin 20 mg tablet 20 mg PO BEDTIME 11/16/20 04/30/24 04/30/24 History cetirizine 10 mg tablet 10 mg PO BEDTIME 08/29/23 04/30/24 04/30/24 History diclofenac sodium 1 % topical gel 1 g topical BID PRN Pain 09/06/23 04/30/24 09/06/23 06:00 History ezetimibe 10 mg tablet 10 mg PO BEDTIME 10/31/23 04/30/24 04/30/24 History tizanidine 4 mg tablet 4 mg PO BEDTIME PRN Muscle Spasm 10/31/23 04/30/24 04/24/24 History apixaban 5 mg tablet (Eliquis) 5 mg PO BID 12/25/23 04/30/24 04/24/24 History ferrous sulfate 325 mg (65 mg 325 mg PO DAILY 03/01/24 04/30/24 04/30/24 History iron) tablet sodium bicarbonate 650 mg tablet 650 mg PO BID 03/01/24 04/30/24 04/30/24 History acetaminophen 325 mg tablet 325 mg PO TID Pain 04/01/24 04/30/24 04/30/24 History acetaminophen 650 mg 650 mg PO BEDTIME PRN Pain 04/01/24 04/30/24 Unknown History tablet,extended release lidocaine 5 % topical patch 1 patch topical DAILY PRN Pain 04/01/24 04/30/24 04/30/24 History morphine 15 mg tablet,extended 15 mg PO BEDTIME 04/01/24 04/30/24 04/30/24 History release omeprazole 20 mg capsule,delayed 20 mg PO DAILY@0630 04/01/24 04/30/24 04/30/24 History release docusate sodium 100 mg capsule 100 mg PO BID PRN Constipation 04/03/24 04/30/24 Unknown History nystatin 100,000 unit/gram topical 1 appl topical BID PRN Rash 04/03/24 04/30/24 Unknown History cream duloxetine 30 mg capsule,delayed 30 mg PO DAILY 04/30/24 04/30/24 04/30/24 History release ibuprofen 800 mg tablet (IBU) 800 mg PO TID PRN Pain 04/30/24 04/30/24 Unknown History oxycodone 10 mg tablet 10 mg PO TID 04/30/24 04/30/24 04/30/24 History vitamin B complex-folic acid 0.4 1 tab DAILY 04/30/24 04/30/24 04/30/24 History mg tablet (B Complex 1 (with folic acid)) Physical Exam Vital Signs: Last Vital Signs Temp 98.1 F 05/02/24 11:41 Pulse 88 05/02/24 11:41 Resp 16 05/02/24 11:41 BP 159/62 H 05/02/24 11:41 Pulse Ox 96 05/02/24 11:41 O2 Del Method Room Air 05/02/24 11:41 O2 Flow Rate 2.0 04/30/24 15:29 BMI result Body Mass Index 25.5 Const General: no acute distress Orientation/consciousness: patient oriented x3 Eyes EOM: EOMs intact bilaterally Neck Neck: Yes supple Resp Auscultation: diminished lung sounds Cardio Rate: regular rate GI Palpation (GI): Soft to palpation Neuro General: patient oriented x3 Results Lab Results 05/02/24 06:31 05/02/24 05:38 Lab results: Chemistry 04/30/24 05/01/24 05/01/24 12:56 06:15 12:16 Sodium 150 H 148 H Potassium 2.8 L* D Carbon Dioxide 16 L BUN 27 H Creatinine 1.18 1.10 Calcium 8.7 05/01/24 05/02/24 17:02 05:38 Sodium 148 H 145 Potassium 2.9 L* 3.4 Carbon Dioxide 14 L 17 L BUN 23 H 21 H Creatinine 1.04 0.92 Calcium 8.0 L D 8.5 D Hematology 04/30/24 05/01/24 05/02/24 07:07 06:15 06:31 WBC 8.0 7.5 Hgb 11.0 L 8.4 L D 7.4 L Plt Count 353 266 Assessment and Plan (1) Hypokalemia: Status: Acute (2) Hypernatremia: Status: Acute (3) Hypertension: Qualifiers: Hypertension type: primary hypertension Qualified Code(s): I10 - Essential (primary) hypertension Status: Acute (4) Metabolic acidosis: Status: Acute Plan Mild ALE due to compromise in renal perfusion- resolved Hypernatremia due to free water deficit - improved Had been on NaHCO3 and K replacement Shall arrange office F/U for optimization of medn after D/C Procedures Date of Service Date of Service: 05/02/24
--- NOTE | 2024-05-02 17:04 | P.PNIM_ITS ---
Subjective Subjective Date of Service: 05/02/24 Interval History: anemia electrolytic abnormalities Review of Systems as above Physical Exam 2 Vital Signs: Vital Signs: Last Vital Signs Temp 97.8 F 05/02/24 15:00 Pulse 86 05/02/24 15:00 Resp 20 05/02/24 15:00 BP 152/60 H 05/02/24 15:00 Pulse Ox 96 05/02/24 11:41 O2 Del Method Room Air 05/02/24 11:41 O2 Flow Rate 2.0 04/30/24 15:29 BMI result Body Mass Index 25.5 Appearance: Alert.? Oriented X3. cvs: rrr, [id number]. res: clear to auscultation ,no rhonchii or wheezing abd: no rebound or guarding ,nt, bs present. ext pulses present , no cyanosis. neuro: axo3 , nonfocal. Objective Data Active Medications Acetaminophen (Acetaminophen 325 Mg Tablet) 650 mg PO Q6H PRN PRN Reason: Pain, Mild 1-3,fever,headache Last Admin: 05/02/24 10:52 Dose: 650 mg Documented By: FRANCK Albuterol Sulfate (Albuterol Sulfate 90 Mcg 8 Gm Inhaler) 2 puff INHALE Q6H PRN PRN Reason: wheezing Apixaban (Apixaban 5 Mg Tablet) 5 mg PO BID [facility] Last Admin: 05/02/24 08:19 Dose: 5 mg Documented By: FRANCK Docusate Sodium (Docusate Sodium 100 Mg Capsule) 100 mg PO BID [facility] Last Admin: 05/02/24 08:20 Dose: 100 mg Documented By: FRANCK Ezetimibe (Ezetimibe 10 Mg Tablet) 10 mg PO DAILY [facility] Last Admin: 05/02/24 08:20 Dose: 10 mg Documented By: FRANCK Ferrous Sulfate (Ferrous Sulfate 324 Mg Tablet.Dr) 324 mg PO DAILY [facility] Last Admin: 05/02/24 08:20 Dose: 324 mg Documented By: FRANCK Fluticasone/Umeclidinium/Vilanterol (Fluticasone/Umeclidinium/Vilanterol 100/62.5/25 Blst.W.Dev) 1 puff INHALE RDAILY [facility] Last Admin: 05/02/24 08:08 Dose: 1 puff Documented By: JASMIN Hydralazine HCl (Hydralazine Hcl 20 Mg/Ml Vial) 5 mg IVPUSH Q6H PRN; Protocol PRN Reason: SBP>180 Last Admin: 04/30/24 16:03 Dose: 5 mg Documented By: BESSIE Hydromorphone HCl (Hydromorphone Hcl 0.5 Mg/0.5 Ml Syringe) 0.25 mg IVPUSH Q4H PRN; Protocol PRN Reason: Pain, Severe (Pain Scale 7-10) Last Admin: 04/30/24 16:16 Dose: 0.25 mg Documented By: BESSIE Lidocaine (Lidocaine 4 % Patch Adh..Patch) 1 patch TRANSDERMA DAILY [facility] Last Admin: 05/02/24 08:22 Dose: 1 patch Documented By: FRANCK Lisinopril (Lisinopril 10 Mg Tablet) 10 mg PO DAILY [facility]; Protocol Last Admin: 05/02/24 08:20 Dose: 10 mg Documented By: FRANCK Loratadine (Loratadine 10 Mg Tablet) 10 mg PO DAILY [facility] Last Admin: 05/02/24 08:20 Dose: 10 mg Documented By: FRANCK Multivitamins/Vitamin C (Multivitamin Tablet) 1 tab PO DAILY [facility] Last Admin: 05/02/24 08:20 Dose: 1 tab Documented By: FRANCK Nystatin (Nystatin Cream 15 Gm Tube) 1 appl TOPICAL BID PRN; Protocol PRN Reason: Rash Omeprazole (Omeprazole 20 Mg Capsule.Dr) 20 mg PO DAILY@0630 [facility] Last Admin: 05/02/24 05:25 Dose: 20 mg Documented By: FREDO Ondansetron HCl (Ondansetron Hcl 4 Mg/2 Ml Vial) 4 mg IVPUSH Q8H PRN PRN Reason: Nausea and Vomiting Oxycodone HCl (Oxycodone Hcl Immed Release 5 Mg Tablet) 10 mg PO Q4H PRN PRN Reason: Pain, Moderate(Pain Scale 4-6) Last Admin: 05/02/24 12:45 Dose: 10 mg Documented By: FRANCK Oxycodone HCl (Oxycodone Hcl Er 10 Mg Tab.Er.12h) 10 mg PO BID [facility] Last Admin: 05/02/24 08:19 Dose: 10 mg Documented By: FRANCK Sodium Bicarbonate (Sodium Bicarbonate 650 Mg Tablet) 650 mg PO QID [facility] Last Admin: 05/02/24 12:45 Dose: 650 mg Documented By: FRANCK Sodium Chloride (0.9 % Sodium Chloride Flush 3 Ml Syringe) 3 ml IVFLUSH QSHIFT [facility] Last Admin: 05/02/24 08:21 Dose: Not Given Documented By: FRANCK Non-Admin Reason: No Access Tizanidine HCl (Tizanidine Hcl 4 Mg Tablet) 4 mg PO BEDTIME [facility] Last Admin: 05/01/24 20:36 Dose: 4 mg Documented By: FREDO Labs 05/02/24 06:31 05/02/24 05:38 Labs: Laboratory Results - last 24 hr 05/01/24 05/01/24 05/02/24 17:02 19:24 05:38 MCV MCH MCHC RDW Plt Count MPV Immature Gran % (Auto) Neut % (Auto) Lymph % (Auto) [place] % (Auto) Eos % (Auto) Baso % (Auto) Lymph # (Auto) [place] # (Auto) Eos # (Auto) Baso # (Auto) Abs Immat Gran (auto) Absolute Neuts (auto) Absolute Nucleated RBC Nucleated RBC % (auto) Hold Purple Top SEE NOTE VBG pH 7.42 VBG pCO2 25 VBG pO2 134 VBG HCO3 16 L VBG O2 Saturation TNP VBG Base Excess -6.6 Anion Gap 12 11 L Estim Creat Clear Calc 40.2 45.4 Estimated GFR 53 > 60 Random Glucose 231 H Fasting Glucose 128 H Calcium 8.0 L D 8.5 D Blood Type Antibody Screen Crossmatch 05/02/24 05/02/24 06:31 10:07 MCV 87.3 MCH 27.6 MCHC 31.6 RDW 16.3 H Plt Count 266 MPV 10.2 Immature Gran % (Auto) 2.1 H Neut % (Auto) 69.0 Lymph % (Auto) 13.4 L [place] % (Auto) 13.0 H Eos % (Auto) 2.0 Baso % (Auto) 0.5 Lymph # (Auto) 1.0 L [place] # (Auto) 1.0 Eos # (Auto) 0.2 Baso # (Auto) 0.0 Abs Immat Gran (auto) 0.16 H Absolute Neuts (auto) 5.1 Absolute Nucleated RBC 0.000 Nucleated RBC % (auto) 0.0 Hold Purple Top VBG pH VBG pCO2 VBG pO2 VBG HCO3 VBG O2 Saturation VBG Base Excess Anion Gap Estim Creat Clear Calc Estimated GFR Random Glucose Fasting Glucose Calcium Blood Type B Positive Antibody Screen NEGATIVE Crossmatch See Detail Assessment and Plan (1) Hypokalemia: Status: Acute (2) Hypernatremia: Status: Acute Plan 68 year old women admitted by orthopedic surgery for hip fracture repair RTHA management as per surgical team pain management hyponatremia /hypokalemia /low bicarb: due to dec po intake and ivf seems to improved with hydration and po inatke HTN, elevated reading continue lisinopril Asthma(mild intermittent)/COPD inhailar as needed Normocytic anemia no acute bleed h/h trending down in 7.4range getting 2 prbc iron supplement moniter cbc . dvt hx: on eliquis GERD PPI DVT prophylaxis with lovenox 48hrs per primary team, eliquis on hold. Quality Stroke Does the patient have a stroke diagnosis?: No VTE Prior VTE?: No VTE Risk Level:: Medical - moderate - high VTE Device Contraindication: N/A - Device Ordered VTE Drug Contraindication: N/A - Med Ordered
[2024-05-02] MEDS: 0.9 % Sodium Chloride Flush 3 ML SYRINGE IVFLUSH ×2 (17:23→20:16)
[2024-05-02] MEDS: Enoxaparin Sodium 40 MG/0.4 ML SYRINGE SUBCUT (20:16)
[2024-05-02] MEDS: TiZANidine HCL 4 MG TABLET PO (20:16)
[2024-05-02] MEDS: HYDROmorphone HCl 0.5 MG/0.5 ML SYRINGE 0.25 MG IVPUSH (20:17)
[2024-05-03] MEDS: HYDROmorphone HCl 0.5 MG/0.5 ML SYRINGE 0.25 MG IVPUSH (02:39)
[2024-05-03 05:52] LABS: MANUAL DIFF FLAG NO
[2024-05-03] MEDS: Omeprazole 20 MG CAPSULE.DR PO (05:53)
[2024-05-03 05:58] LABS: Basophils Absolute Auto 0.1 X10*3/uL (0.0-0.2); Basophils Percent Auto 0.6 % (0-2); Eosinophils Absolute Auto 0.4 X10*3/uL (0.0-0.4); Eosinophils Percent Auto 4.3 % (0-4); Hemoglobin 9.8 g/dl (12.0-16.0); Imm Gran Abs Auto 0.28 X10*3/uL (0.00-0.03); Imm Gran Pct Auto 2.9 % (0.0-0.4); Lymphocytes Absolute Auto 1.2 X10*3/uL (1.2-4.9); Mean Corpuscular HGB Conc 33.8 g/dl (31.0-35.0); Mean Corpuscular Hemoglobin 29.3 pg (27.0-33.0); Mean Corpuscular Volume 86.8 fL (80.0-98.0); Mean Platelet Volume 9.3 fL (9.4-12.3); Monocytes Absolute Auto 0.9 X10*3/uL (0.1-1.2); Monocytes Percent Auto 9.4 % (2-11); Neutrophils Absolute Auto 6.9 x10*3/uL (2.0-8.3); Neutrophils Percent Auto 70.8 % (45-73); Platelet Count 234 X10*3/uL (160-400); Red Blood Count 3.34 X10*6/uL (4.20-5.50); Red Cell Distribution Width 15.6 % (11.0-16.0); White Blood Count 9.8 X10*3/uL (4.8-10.8)
[2024-05-03] MEDS: oxyCODONE HCl ER 10 MG TAB.ER.12H PO (07:09)
[2024-05-03] MEDS: oxyCODONE HCl Immed Release 5 MG TABLET 10 MG PO ×2 (07:09→12:11)
[2024-05-03] MEDS: Ferrous Sulfate 324 MG TABLET.DR PO (07:10)
[2024-05-03] MEDS: Ezetimibe 10 MG TABLET PO (07:10)
[2024-05-03] MEDS: Docusate Sodium 100 MG CAPSULE PO (07:10)
[2024-05-03] MEDS: Multivitamin TABLET 1 TAB PO (07:10)
[2024-05-03] MEDS: Loratadine 10 MG TABLET PO (07:10)
[2024-05-03] MEDS: 0.9 % Sodium Chloride Flush 3 ML SYRINGE IVFLUSH (07:10)
[2024-05-03] MEDS: Fluticasone/Umeclidinium/Vilanterol 100/62.5/25 BLST.W.DEV 1 PUFF INHALE (08:40)
--- NOTE | 2024-05-03 08:53 | P.PNOP_ITS ---
Subjective Subjective Date of Service: 05/03/24 Interval history: POD3 s/p RTHA Patient is resting in bed comfortably No overnight events Pain is managed No additional complaints Physical Exam Vital Signs: Vital Signs: Last Vital Signs Temp 99.2 F 05/03/24 07:35 Pulse 81 05/03/24 08:42 Resp 18 05/03/24 08:42 BP 193/83 H 05/03/24 07:35 Pulse Ox 92 05/03/24 07:35 O2 Del Method Room Air 05/03/24 07:35 O2 Flow Rate 2.0 04/30/24 15:29 BMI result Body Mass Index 25.5 Const: General: cooperative, healthy appearing and no acute distress Resp: Effort & Inspection: normal respiratory effort and able to speak in complete sentences Cardio: Rate: regular rate Peripheral pulses: Peripheral pulses 2+ throughout GI: Palpation (GI): Soft to palpation Skin: Lesions: no lesions Rashes: no rashes Extrem: Other: rt hip dressing is c/d/i. Able to dorsi/plantar flex. Calf is supple and nontender. Sensation intact. Pedal pulse intact. abducttion pillow inplace Procedures Date of Service Date of Service: 05/03/24 Progress Note: A&P Assessment and plan (1) S/P total right hip arthroplasty: Status: Acute Plan Continue pain mgmnt Continue Eliquis dvt ppx Continue PT/OT for RTHA Dispo planning- PT, pain mgmnt, able to d/c to rehab today pending bed availability Time Spent With Patient Time: Total time managing care of this patient today ____ minutes. Quality Stroke Does the patient have a stroke diagnosis?: No VTE Prior VTE?: No VTE Risk Level:: Medical - moderate - high VTE Device Contraindication: N/A - Device Ordered VTE Drug Contraindication: N/A - Med Ordered
[2024-05-03] MEDS: Sodium Bicarbonate 650 MG TABLET PO ×2 (09:23→12:11)
[2024-05-03] MEDS: lisinopriL 10 MG TABLET PO (09:23)
[2024-05-03] MEDS: Lidocaine 4 % Patch ADH..PATCH 1 PATCH TRANSDERMA (09:24)
[2024-05-03] MEDS: Acetaminophen 325 MG TABLET 650 MG PO (14:40)
== END 2024-05-03 16:05 | disposition skilled nursing facility (03) ==
LOC: HO.SSS 09:19 → HO.S3 09:37
PROVIDERS: Internal Medicine; Physician Assistant; PCP Hospitalist; Visit Provider Orthopaedic Surgery
PROC: (CPT 27130; principal; 2024-04-30 07:30)
DX: M16.11 Unilateral primary osteoarthritis, right hip (principal); Z96.642 Presence of left artificial hip joint; D64.9 Anemia, unspecified; E87.0 Hyperosmolality and hypernatremia; E87.6 Hypokalemia; E87.8 Other disorders of electrolyte and fluid balance, not elsewhere classified; E87.21 Acute metabolic acidosis; I10 Essential (primary) hypertension; J44.9 Chronic obstructive pulmonary disease, unspecified; J45.20 Mild intermittent asthma, uncomplicated; K21.9 Gastro-esophageal reflux disease without esophagitis; I82.502 Chronic embolism and thrombosis of unspecified deep veins of left lower extremity; Z79.01 Long term (current) use of anticoagulants; Z79.51 Long term (current) use of inhaled steroids; Z79.1 Long term (current) use of non-steroidal anti-inflammatories (NSAID); Z79.899 Other long term (current) drug therapy; Z96.82 Presence of neurostimulator; Z88.2 Allergy status to sulfonamides; Z88.8 Allergy status to other drugs, medicaments and biological substances; Z98.890 Other specified postprocedural states; Z98.84 Bariatric surgery status; Z87.891 Personal history of nicotine dependence
CPT/HCPCS: 27130; 36415; 72170; 80048; 82565; 82803; 82947; 83036; 83735; 84295; 85014; 85018; 85025; 86850; 86900; 86901; 87640; 87641; 88304; 88311; 94640; 97110; 97162; 97166; 97530; C1713; C1776; J0131; J0360; J1171; J1650; J1920; J2003; J2405; J2704; J2795; J3010; J3370; J3480; J7120

== ENCOUNTER → 2024-04-30 05:51 | Outpatient (BNV) | payer OTHER, SELFPAY | PROVIDERS: PCP Hospitalist; Visit Provider Internal Medicine Nephrology | DX: E87.6 Hypokalemia (principal); E87.0 Hyperosmolality and hypernatremia; I10 Essential (primary) hypertension; E87.21 Acute metabolic acidosis | CPT/HCPCS: 99222 ==

== ENCOUNTER → 2024-04-30 05:51 | Outpatient (BNV) | payer OTHER, SELFPAY | PROVIDERS: PCP Hospitalist; Visit Provider Nurse Practitioner Acute Care | DX: E87.6 Hypokalemia (principal); E87.0 Hyperosmolality and hypernatremia | CPT/HCPCS: 99222; 99231 ==

== ENCOUNTER → 2024-04-30 05:51 | Outpatient (BNV) | payer OTHER, SELFPAY | PROVIDERS: PCP Hospitalist; Visit Provider Orthopaedic Surgery | DX: Z96.641 Presence of right artificial hip joint (principal) | CPT/HCPCS: 27130; 99024 ==

== ENCOUNTER → 2024-04-30 09:16 | Outpatient (BNV) | payer OTHER, SELFPAY | PROVIDERS: PCP Hospitalist; Visit Provider Radiology Diagnostic Radiology | DX: Z96.643 Presence of artificial hip joint, bilateral (principal) | CPT/HCPCS: 72170 ==

== ENCOUNTER 2024-05-16 14:18 | Outpatient (AMB) | payer OTHER, SELFPAY ==
--- NOTE | 2024-05-16 14:20 | MHC.OFFVIS ---
Intake Visit Reasons: 2WK PO - right CHINYERE 05/01/24 NE Intake Note: Yanet is a 68 year old female who presents today for a post op appointment s/p right CHINYERE 05/01/24 NE. Patient reports she is doing well. She states her pain has been well controlled.. Next appt 06/13 @ 9:30AM Allergies Sulfa (Sulfonamide Antibiotics) Allergy (Severe, Verified 05/16/24 14:26) throat swelling metformin Adverse Reaction (Intermediate, Verified 05/16/24 14:26) diarrhea semaglutide [From Ozempic] Adverse Reaction (Intermediate, Verified 05/16/24 14:26) pancreatitis HPI HPI 2WK PO - right CHINYERE 05/01/24 NE: Details: Ms. King is a 68-year-old female who presents to the office today status post right total hip arthroplasty performed on 05/01/[address] Ruiz. She is in a wheelchair while in the office today but reports that while at the facility she is working physical therapy. She reports that she has been walking and ambulating with the use of a walker. Overall she is doing very well. She is happy with her progress and reports little pain. [facility] Medical History (Updated 05/11/24 @ 00:01 by Background Daemon) Metabolic acidosis Hypertension Hypokalemia Hypernatremia DVT (deep venous thrombosis) History of kidney infection (~08/2023) DVT (deep venous thrombosis) Diabetes Elevated blood pressure reading with diagnosis of hypertension Abdominal hernia Asthma Arthritis Osteoarthritis (arthritis due to wear and tear of joints) COVID-19 vaccine series completed Full dentures Arthritis of left hip Low back pain Liver cyst COPD (chronic obstructive pulmonary disease) Elevated cholesterol Surgical History (Updated 05/11/24 @ 00:01 by Background Daemon) S/P insertion of IVC (inferior vena caval) filter (02/07/24) History of total left hip arthroplasty (08/29/23) Hx of gastric bypass Hx of ankle fusion Status post insertion of nerve stimulator Hx of colonoscopy Hx of carpal tunnel repair History of back surgery Social History Household Members: None Housing: Condominium Are you a primary respiratory care assistant to a significant other at home: No Do you presently have visiting nurse or other home services: No 75 years or older and lives alone: No Comment: pt rings appropriately Patient Tobacco Use Status: Former Tobacco user Tobacco use type: Cigarette Cigarettes Per Day: 60 Years Smoked: quit 15 years ago Second Hand Smoke Exposure: No service: No Review of Systems Const All systems reviewed & are unremarkable except as noted in HPI and below Physical Exam Const General: cooperative, healthy appearing and no acute distress Resp Effort & Inspection: normal respiratory effort and able to speak in complete sentences Cardio Rate: regular rate Peripheral pulses: Peripheral pulses 2+ throughout Skin Lesions: no lesions Rashes: no rashes Extrem Other: Right hip incision site is clean dry and intact. Debbie intact. No surrounding erythema or drainage. No signs of infection. Able to straight leg raise. Able to dorsiflex and plantar flex. NVI. Assessment & Plan Assessment & Plan (1) S/P total right hip arthroplasty: Code(s): Z96.641 - Presence of right artificial hip joint Category: Surgical Plan Ms. King is a 68-year-old female who presents to the office today status post right total hip arthroplasty performed on 05/01/[address] Ruiz. She is in a wheelchair while in the office today but reports that while at the facility she is working physical therapy. She reports that she has been walking and ambulating with the use of a walker. Overall she is doing very well. She is happy with her progress and reports little pain. While in the office today, her debbie are removed and Steri-Strips were applied. Patient will continue working with physical therapy. Reminded the patient of posterior precautions. She will follow up in [address] Ruiz, sooner if needed. Coding Level of Care Code Global (58823) Diagnoses S/P total right hip arthroplasty Z96.641
--- OUTSIDE RECORDS SUMMARY | 2024-05-16 15:27 | XMS_ITS ---
Author Organization [facility] Address [address] [address] Care Team Providers Care Director Of Enterprise Strategy Name Role Phone LENNIE ALFARO Primary Care Provider [phone] REASON FOR VISIT Pre op note and EKG and attest Lab result Encounters Encounter Location Date Provider Diagnosis [facility] [address] [facility] [address] [place] [address] 04/23/2024 LENNIE ALFARO Plan Of Treatment Next Appt Details Provider Name:Aide Mikomario alberto bond, 06/05/2024 10:15:00 AM, [address] [facility] [address], [place], [address], Progress Notes * Yanet KINGDOB:1955 (68 yo F)Acc No.[id number]:04/23/2024 Patient:?Yanet KING :1955???Age:68 Y???Sex:Female Address:[place] [address] * true * Date:? Generated for Printi carmella/[email or web address]/eTransmitting on:?05/16/2024 03:27 PM EST
--- OUTSIDE RECORDS SUMMARY | 2024-05-16 15:27 | XMS_ITS | Encounter Summary ---
Author Organization [facility] Address [address] [place] [address] Care Team Providers Care Preschool Assistant Teacher Name Role Phone Daniel Mota MD Primary Care Provider Unavail able Ayan Clayton MD Primary Care Provider [phone] Encounter Details Date Type Department Care Team Description 11/09/2018 Hospital Medical Records [address] [place] [address] Torrey Moreno MD [address] [place] [address] [address] [place] [address] Social History Tobacco Use Types Packs/Day Years [...] on filedocumented in this encounter Care Teams Preschool Assistant Teacher Relationship Specialty Start Date End Date Daniel Mota MD PCP - General Internal Medicine 10/20/16 09/23/19 Ayan Clayton MD [address] [place], [place] [phone] PCP - General Internal Medicine 09/24/19 documented as of this encounter
--- OUTSIDE RECORDS SUMMARY | 2024-05-16 15:27 | XMS_ITS | Encounter Summary ---
Author Organization [facility] Address [address] [place] [address] Care Team Providers Care Removable Prosthodontist Name Role Phone Ayan Clayton MD Primary Care Provider [phone] Reason for Visit * Reason Comments E-prescribe Rx Request Encounter Details Date Type Department Care Team Description 11/12/2021 Refill Endocrinology - [place] [address] [place] [address] Juan Alberto Kendall MD [address] [place], [place] [phone] E-prescribe Rx Request Social History Tobacco Use [...] uncontrolled documented in this encounter Care Teams Removable Prosthodontist Relationship Specialty Start Date End Date Ayan Clayton MD [address] [place] [address] PCP - General Internal Medicine 09/24/19 documented as of this encounter
--- OUTSIDE RECORDS SUMMARY | 2024-05-16 15:27 | XMS_ITS | Encounter Summary ---
Author Organization [facility] Address [address] [place] [address] Care Team Providers Care Rn Private Duty Name Role Phone Daniel Mota MD Primary Care Provider Ayan Rubalcava MD Primary Care Provider [phone] Encounter Details Date Type Department Care Team Description 11/19/2018 Orders Only Medical Records [address] [place] [address] Abstract, Provider Social History Tobacco Use Types [...] filedocumented in this encounter Care Teams Rn Private Duty Relationship Specialty Start Date End Date Daniel Mota MD PCP - General Internal Medicine 10/20/16 09/23/19 Ayan Clayton MD [address] [place] [address] PCP - General Internal Medicine 09/24/19 documented as of this encounter
--- OUTSIDE RECORDS SUMMARY | 2024-05-16 15:27 | XMS_ITS | Encounter Summary ---
Author Organization [facility] Address [address] [place] [address] Care Team Providers Care Crop Farmers Name Role Phone Ayan Clayton MD Primary Care Provider Encounter Details Date Type Department Care Team Description 03/08/2022 Spray Cementer Report Medical Records [address] [place] [address] Blu Us I., PH.D Social History Tobacco [...] on filedocumented in this encounter Care Teams Crop Farmers Relationship Specialty Start Date End Date Ayan Clayton MD [address] [place] [address] PCP - General Internal Medicine 09/24/19 documented as of this encounter
--- OUTSIDE RECORDS SUMMARY | 2024-05-16 15:27 | XMS_ITS | Encounter Summary ---
Author Organization [facility] Address [address] [place] [address] Care Team Providers Care It Security Architect Name Role Phone Ayan Clayton MD Primary Care Provider [phone] Reason for Visit * Reason Onset Date Comments APPOINTMENT 02/14/2022 Encounter Details Date Type Department Care Team Description 02/14/2022 Telephone Nephrology - [place] [address] [place], [place] [phone] Vega Navarro MD [address] [place], [place] [phone] APPOINTMENT Social History Tobacco Use Types Packs/Day [...] on filedocumented in this encounter Care Teams It Security Architect Relationship Specialty Start Date End Date Ayan Clayton MD [address] [place] [address] PCP - General Internal Medicine 09/24/19 documented as of this encounter
--- OUTSIDE RECORDS SUMMARY | 2024-05-16 15:27 | XMS_ITS | Encounter Summary ---
Author Organization [facility] Address [address] [place] [address] Care Team Providers Care Drafter Castings Name Role Phone Daniel Mota MD Primary Care Provider [facility] Ayan Pulliam MD Primary Care Provider [phone] Reason for Visit * Reason Onset Date Comments Faxed Order 11/30/2018 Encounter Details Date Type Department Care Team Description 11/30/2018 Telephone Adult Medicine [address] [address] Daniel Mota MD Faxed Order Social History Tobacco Use Types [...] * Telephone Encounter - Skylar Carmona - 12/04/2018 1:35 PM EDT Add on discipline to be signed * Telephone Encounter - Skylar Carmona - 12/03/2018 3:10 PM EDT Home health certificate and plan of care to be signed * Telephone Encounter - Tiffany Velásquez - 11/30/2018 10:00 AM EDT Fax orders from [facility], please sign and fax back. documented in this encounter Plan of Treatment Not on file documented as of this encounter Visit Diagnoses Not on filedocumented in this encounter Care Teams Drafter Castings Relationship Specialty Start Date End Date Daniel Mota MD PCP - General Internal Medicine 10/20/16 09/23/19 Ayan Clayton MD [address] [place] [address] PCP - General Internal Medicine 09/24/19 documented as of this encounter
--- OUTSIDE RECORDS SUMMARY | 2024-05-16 15:27 | XMS_ITS | Encounter Summary ---
Author Organization [facility] Address [address] [place] [address] Care Team Providers Care Oxyacetylene Torch Operator Name Role Phone Daniel Mota MD Primary Care Provider Unavail Victor Manuel Yu MD Primary Care Provider Unava ilable Daniel Mota MD Primary Care Provider Unavail Ayan Pulliam MD Primary Care Provider [phone] Victor Manuel Gonzales MD Primary Care Provider Unava ilable Reason for Visit * Reason Onset Date Comments Faxed Refill 08/16/2013 Encounter Details Date Type Department Care Team Description 08/16/2013 Telephone Adult Medicine [address] [address] Daniel Mota MD Faxed Refill Social History [...] on filedocumented in this encounter Care Teams Oxyacetylene Torch Operator Relationship Specialty Start Date End Date Daniel Mota MD PCP - General 07/27/1994 12/22/15 Victor Manuel Gonzales MD PCP - General Internal Medicine 07/22/16 10/19/16 Daniel Mota MD PCP - General Internal Medicine 10/20/16 09/23/19 Ayan Clayton MD [address] [place] [address] PCP - General Internal Medicine 09/24/19 Victor Manuel Gonzales MD PCP - General 12/23/15 07/21/16 documented as of this encounter
--- OUTSIDE RECORDS SUMMARY | 2024-05-16 15:27 | XMS_ITS | Encounter Summary ---
Author Organization [facility] Address [address] [place] [address] Care Team Providers Care Dairy Cattle Farm Worker Name Role Phone Ayan Clayton MD Primary Care Provider [phone] Reason for Visit * Reason Comments E-prescribe Rx Request Encounter Details Date Type Department Care Team Description 12/10/2021 Refill Endocrinology - [place] [address] [place] [address] Juan Alberto Kendall MD [address] [place], [place] [phone] E-prescribe Rx Request Social History Tobacco Use [...] uncontrolled documented in this encounter Care Teams Dairy Cattle Farm Worker Relationship Specialty Start Date End Date Ayan Clayton MD [address] [place] [address] PCP - General Internal Medicine 09/24/19 documented as of this encounter
--- OUTSIDE RECORDS SUMMARY | 2024-05-16 15:27 | XMS_ITS | Encounter Summary ---
Author Organization [facility] Address [address] [place] [address] Care Team Providers Care Supervisor Wrapping Room Name Role Phone Ayan Clayton MD Primary Care Provider [phone] Reason for Visit * Reason Comments E-prescribe Rx Request Encounter Details Date Type Department Care Team Description 02/15/2022 Refill Adult Medicine [facility] [address] [place], [place] [phone] Ayna Clayton MD [address] [place] [phone] E-prescribe Rx Request Social History Tobacco Use [...] / Plan: [place] / Product Type: MEDICARE [id number] documented in this encounter Plan of Treatment Not on file documented as of this encounter Visit Diagnoses Not on filedocumented in this encounter Care Teams Supervisor Wrapping Room Relationship Specialty Start Date End Date Ayan Clayton MD [address] [place] [address] PCP - General Internal Medicine 09/24/19 documented as of this encounter
--- OUTSIDE RECORDS SUMMARY | 2024-05-16 15:27 | XMS_ITS | Encounter Summary ---
Author Organization [facility] Address [address] [place] [address] Care Team Providers Care Global Upstream Marketing Manager Name Role Phone Daniel Mota MD Primary Care Provider Unavail Victor Manuel Yu MD Primary Care Provider Unava ilable Daniel Mota MD Primary Care Provider Unavail Ayan Pulliam MD Primary Care Provider [phone] Victor Manuel Gonzales MD Primary Care Provider Unava ilmaximino Encounter Details Date Type Department Care Team Description 07/22/2013 Refill Adult Medicine [address] [address] Daniel Mota MD Social History Tobacco Use [...] on filedocumented in this encounter Care Teams Global Upstream Marketing Manager Relationship Specialty Start Date End Date Daniel Mota MD PCP - General 07/27/1994 12/22/15 Victor Manuel Gonzales MD PCP - General Internal Medicine 07/22/16 10/19/16 Daniel Mota MD PCP - General Internal Medicine 10/20/16 09/23/19 Ayan Clayton MD [address] [place] [address] PCP - General Internal Medicine 09/24/19 Victor Manuel Gonzales MD PCP - General 12/23/15 07/21/16 documented as of this encounter
--- OUTSIDE RECORDS SUMMARY | 2024-05-16 15:27 | XMS_ITS | Encounter Summary ---
Author Organization [facility] Address [address] [place] [address] Care Team Providers Care Autocad Electrical Designer Name Role Phone Daniel Mota MD Primary Care Provider Ayan Rubalcava MD Primary Care Provider [phone] Reason for Visit * Reason Onset Date Comments Provider Call Back 12/04/2018 Encounter Details Date Type Department Care Team Description 12/04/2018 Telephone Adult Medicine [address] [address] Daniel Mota MD Provider Call Back Social [...] on filedocumented in this encounter Care Teams Autocad Electrical Designer Relationship Specialty Start Date End Date Daniel Mota MD PCP - General Internal Medicine 10/20/16 09/23/19 Ayan Clayton MD [address] [place] [address] PCP - General Internal Medicine 09/24/19 documented as of this encounter
--- OUTSIDE RECORDS SUMMARY | 2024-05-16 15:27 | XMS_ITS | Encounter Summary ---
Author Organization [facility] Address [address] [place] [address] Care Team Providers Care Screed Operator Name Role Phone Daniel Mota MD Primary Care Provider [facility] Ayan Pulliam MD Primary Care Provider [phone] Encounter Details Date Type Department Care Team Description 06/11/2018 Orders Only General Surgery - [place] [address] [facility] [address] [place] [address] Torrey Moreno MD [address] [place] [address] DR[address] [place], [place] [phone] Morbid obesity with BMI of 50.0-59.9, adult [...] (HCC) documented in this encounter Care Teams Screed Operator Relationship Specialty Start Date End Date Daniel Mota MD PCP - General Internal Medicine 10/20/16 09/23/19 Ayan Clayton MD [address] [place] [address] PCP - General Internal Medicine 09/24/19 documented as of this encounter
--- OUTSIDE RECORDS SUMMARY | 2024-05-16 15:27 | XMS_ITS | Encounter Summary ---
Author Organization [facility] Address [address] [place] [address] Care Team Providers Care Sales And Service Consultant Name Role Phone Ayan Clayton MD Primary Care Provider [phone] Reason for Visit * Reason Onset Date Comments Faxed Order 03/17/2022 [facility] Encounter Details Date Type Department Care Team Description 03/17/2022 Telephone Adult Medicine [facility] [address] [place] [phone] Ayan Clayton MD [address] [place] [address] [phone] Faxed Order ([facility] ) Social History Tobacco Use Types [...] filedocumented in this encounter Care Teams Sales And Service Consultant Relationship Specialty Start Date End Date Ayan Clayton MD [address] [place] [address] PCP - General Internal Medicine 09/24/19 documented as of this encounter
--- OUTSIDE RECORDS SUMMARY | 2024-05-16 15:27 | XMS_ITS | Encounter Summary ---
Author Organization [facility] Address [address] [place] [address] Care Team Providers Care White Goods Appliance Tech Name Role Phone Ayan Clayton MD Primary Care Provider Encounter Details Date Type Department Care Team Description 04/26/2022 Financial Services Representative Report Medical Records [address] [place] [address] Adarsh Rider, Social History Tobacco Use Types [...] on filedocumented in this encounter Care Teams White Goods Appliance Tech Relationship Specialty Start Date End Date Ayan Clayton MD [address] [place] [address] PCP - General Internal Medicine 09/24/19 documented as of this encounter
--- OUTSIDE RECORDS SUMMARY | 2024-05-16 15:27 | XMS_ITS | Encounter Summary ---
Author Organization [facility] Address [address] [place] [address] Care Team Providers Care Sewing Machine Bobbin Winder Name Role Phone Daniel Mota MD Primary Care Provider [facility] Ayan Pulliam MD Primary Care Provider [phone] Encounter Details Date Type Department Care Team Description 08/03/2018 Orders Only Adult Medicine [facility] [address] [place] [address] Daniel Mota MD Type 2 diabetes mellitus [...] Primary documented in this encounter Care Teams Sewing Machine Bobbin Winder Relationship Specialty Start Date End Date Daniel Mota MD PCP - General Internal Medicine 10/20/16 09/23/19 Ayan Clayton MD [address] [place] [address] PCP - General Internal Medicine 09/24/19 documented as of this encounter
--- OUTSIDE RECORDS SUMMARY | 2024-05-16 15:27 | XMS_ITS | Encounter Summary ---
Author Organization [facility] Address [address] [place] [address] Care Team Providers Care Firer Powerhouse Name Role Phone Ayan Clayton MD Primary Care Provider Encounter Details Date Type Department Care Team Description 06/10/2023 Hospital Medical Records [address] [place] [address] Social History Tobacco Use Types Packs/Day Years [...] on filedocumented in this encounter Care Teams Firer Powerhouse Relationship Specialty Start Date End Date Ayan Clayton MD [address] [place] [phone] PCP - General Internal Medicine 09/24/19 documented as of this encounter
--- OUTSIDE RECORDS SUMMARY | 2024-05-16 15:27 | XMS_ITS | Encounter Summary ---
Author Organization [facility] Address [address] [place] [address] Care Team Providers Care Smalltalk Developer Name Role Phone Daniel Mota MD Primary Care Provider Unavail able Ayan Clayton MD Primary Care Provider [phone] Encounter Details Date Type Department Care Team Description 07/18/2018 Telephone Adult Medicine [facility] [address] [place] [address] Daniel Mota MD Social History Tobacco Use [...] on filedocumented in this encounter Care Teams Smalltalk Developer Relationship Specialty Start Date End Date Daniel Mota MD PCP - General Internal Medicine 10/20/16 09/23/19 Ayan Clayton MD [address] [place] [address] PCP - General Internal Medicine 09/24/19 documented as of this encounter
--- OUTSIDE RECORDS SUMMARY | 2024-05-16 15:27 | XMS_ITS | Encounter Summary ---
Author Organization [facility] Address [address] [place] [address] Care Team Providers Care Wellness Program Administrator Name Role Phone Ayan Clayton MD Primary Care Provider [phone] Encounter Details Date Type Department Care Team Description 10/19/2021 Dehydrator Tender Report Medical Records [address] [place] [address] Skylar Hanna DPM Social History Tobacco Use [...] on filedocumented in this encounter Care Teams Wellness Program Administrator Relationship Specialty Start Date End Date Ayan Clayton MD [address] [place], [place] [phone] PCP - General Internal Medicine 09/24/19 documented as of this encounter
--- OUTSIDE RECORDS SUMMARY | 2024-05-16 15:27 | XMS_ITS | Encounter Summary ---
Author Organization [facility] Address [address] [place] [address] Care Team Providers Care Home Day Care Provider Name Role Phone Ayan Clayton MD Primary Care Provider [phone] Encounter Details Date Type Department Care Team Description 04/21/2022 Nutrition Services Aide Report Medical Records [address] [place] [address] Abstract, Provider Social History Tobacco Use Types [...] filedocumented in this encounter Care Teams Home Day Care Provider Relationship Specialty Start Date End Date Ayan Clayton MD [address] [place], [place] [phone] PCP - General Internal Medicine 09/24/19 documented as of this encounter
--- OUTSIDE RECORDS SUMMARY | 2024-05-16 15:27 | XMS_ITS | Encounter Summary ---
Author Organization [facility] Address [address] [place] [address] Care Team Providers Care Ball Machine Operator Name Role Phone Daniel Mota MD Primary Care Provider Unavail Victor Manuel Yu MD Primary Care Provider Unava ilable Daniel Mota MD Primary Care Provider Unavail Ayan Pulliam MD Primary Care Provider [phone] Victor Manuel Gonzales MD Primary Care Provider Unava jaxson Encounter Details Date Type Department Care Team Description 02/13/2007 [facility] Medical Records [address] [place] [address] Brennon Nguyen Social History Tobacco Use Types [...] filedocumented in this encounter Care Teams Ball Machine Operator Relationship Specialty Start Date End Date Daniel Mota MD PCP - General 07/27/1994 12/22/15 Victor Manuel Gonzales MD PCP - General Internal Medicine 07/22/16 10/19/16 Daniel Mota MD PCP - General Internal Medicine 10/20/16 09/23/19 Ayan Clayton MD [address] [place] [address] PCP - General Internal Medicine 09/24/19 Victor Manuel Gonzales MD PCP - General 12/23/15 07/21/16 documented as of this encounter
--- OUTSIDE RECORDS SUMMARY | 2024-05-16 15:27 | XMS_ITS | Encounter Summary ---
Author Organization [facility] Address [address] [place] [address] Care Team Providers Care Electrical And Instrumentation Manager Name Role Phone Ayan Clayton MD Primary Care Provider [phone] Encounter Details Date Type Department Care Team Description 07/03/2023 Orders Only Medical Records [address] [place] [address] Social History Tobacco Use Types Packs/Day Years [...] Stormy Nielson LAB * OUTSIDE CT (06/10/2023) [facility] RADIOLOGY * OUTSIDE MRI/MRA (06/10/2023) [facility] RADIOLOGY documented in this encounter Visit Diagnoses Not on filedocumented in this encounter Care Teams Electrical And Instrumentation Manager Relationship Specialty Start Date End Date Ayan Clayton MD [address] [place] [address] PCP - General Internal Medicine 09/24/19 documented as of this encounter
--- OUTSIDE RECORDS SUMMARY | 2024-05-16 15:27 | XMS_ITS | Encounter Summary ---
Author Organization [facility] Address [address] [place] [address] Care Team Providers Care Motor Equipment Lieutenant Name Role Phone Ayan Clayton MD Primary Care Provider [phone] Encounter Details Date Type Department Care Team Description 11/28/2023 Flue Cleaner Report Medical Records [address] [place] [address] [id number] Social History Tobacco Use Types Packs/Day Years [...] on filedocumented in this encounter Care Teams Motor Equipment Lieutenant Relationship Specialty Start Date End Date Ayan Clayton MD [address] [place], [place] [phone] PCP - General Internal Medicine 09/24/19 documented as of this encounter
--- OUTSIDE RECORDS SUMMARY | 2024-05-16 15:27 | XMS_ITS | Encounter Summary ---
Author Organization [facility] Address [address] [place] [address] Care Team Providers Care Sinter Press Operator Name Role Phone Ayan Clayton MD Primary Care Provider [phone] Reason for Visit * Reason Comments E-prescribe Rx Request Encounter Details Date Type Department Care Team Description 02/15/2022 Refill Gastroenterology - [place] [address] [facility] [address] [place] [address] Jerrod Joe PA-C E-prescribe Rx [...] on filedocumented in this encounter Care Teams Sinter Press Operator Relationship Specialty Start Date End Date Ayan Clayton MD [address] [place] [address] PCP - General Internal Medicine 09/24/19 documented as of this encounter
--- OUTSIDE RECORDS SUMMARY | 2024-05-16 15:27 | XMS_ITS | Encounter Summary ---
Author Organization [facility] Address [address] [place] [address] Care Team Providers Care Adzing And Boring Machine Operator Name Role Phone Ayan Clayton MD Primary Care Provider [phone] Encounter Details Date Type Department Care Team Description 06/27/2023 Bell Ringer Report Medical Records [address] [place] [address] Vega Garcia Social History Tobacco Use Types [...] on filedocumented in this encounter Care Teams Adzing And Boring Machine Operator Relationship Specialty Start Date End Date Ayan Clayton MD [address] [place] [address] PCP - General Internal Medicine 09/24/19 documented as of this encounter
--- OUTSIDE RECORDS SUMMARY | 2024-05-16 15:27 | XMS_ITS | Encounter Summary ---
Author Organization [facility] Address [address] [place] [address] Care Team Providers Care Calender Inspector Name Role Phone Ayan Clayton MD Primary Care Provider [phone] Reason for Visit * Reason Onset Date Comments Faxed Order 06/26/2023 [facility] Encounter Details Date Type Department Care Team Description 06/26/2023 Telephone Adult Medicine [facility] [address] [place] [address] [id number] Ayan Clayton MD [address] [place] [address] [phone] Faxed Order ([facility]) Social History Tobacco Use [...] Howard Soria - 06/26/2023 12:17 PM EDT RADIOLOGIC TECHNOLOGIST CHIEF order received and placed in providers bin documented in this encounter Plan of Treatment Not on file documented as of this encounter Visit Diagnoses Not on filedocumented in this encounter Care Teams Calender Inspector Relationship Specialty Start Date End Date Ayan Clayton MD [address] [place] [address] PCP - General Internal Medicine 09/24/19 documented as of this encounter
--- OUTSIDE RECORDS SUMMARY | 2024-05-16 15:27 | XMS_ITS | Encounter Summary ---
Author Organization [facility] Address [address] [place] [address] Care Team Providers Care Chair And Couch Maker Name Role Phone Ayan Clayton MD Primary Care Provider [phone] Encounter Details Date Type Department Care Team Description 03/23/2022 Transmission Operator Report Medical Records [address] [place] [address] [facility] [address] [place] [address] Social History Tobacco Use Types Packs/Day Years [...] on filedocumented in this encounter Care Teams Chair And Couch Maker Relationship Specialty Start Date End Date Ayan Clayton MD [address] [place], [place] [phone] PCP - General Internal Medicine 09/24/19 documented as of this encounter
--- OUTSIDE RECORDS SUMMARY | 2024-05-16 15:27 | XMS_ITS | Encounter Summary ---
Author Organization [facility] Address [address] [place] [address] Care Team Providers Care Chief Contract Officer Name Role Phone Daniel Mota MD Primary Care Provider Unavail able Ayan Clayton MD Primary Care Provider [phone] Encounter Details Date Type Department Care Team Description 11/19/2018 Hospital Medical Records [address] [place] [address] Xuan Jean Baptiste MD Social History Tobacco [...] on filedocumented in this encounter Care Teams Chief Contract Officer Relationship Specialty Start Date End Date Daniel Mota MD PCP - General Internal Medicine 10/20/16 09/23/19 Ayan Clayton MD [address] [place], [place] [phone] PCP - General Internal Medicine 09/24/19 documented as of this encounter
--- OUTSIDE RECORDS SUMMARY | 2024-05-16 15:27 | XMS_ITS | Encounter Summary ---
Author Organization [facility] Address [address] [place] [address] Care Team Providers Care Electroneurodiagnostic Technologist Name Role Phone Daniel Mota MD Primary Care Provider [facility] Ayan Clayton MD Primary Care Provider [phone] Reason for Visit * Reason Comments E-prescribe Rx Request Encounter Details Date Type Department Care Team Description [facility]/18/[facility] [place] [address] [facility] [address] [place] [phone] Torrey Moreno MD [address] [place] [address] [address] [place] [address] E-prescribe Rx Request Social History Tobacco Use [...] on filedocumented in this encounter Care Teams Electroneurodiagnostic Technologist Relationship Specialty Start Date End Date Daniel Mota MD PCP - General Internal Medicine 10/20/16 09/23/19 Ayan Clayton MD [address] [place] [address] PCP - General Internal Medicine 09/24/19 documented as of this encounter
--- OUTSIDE RECORDS SUMMARY | 2024-05-16 15:27 | XMS_ITS | Encounter Summary ---
Author Organization [facility] Address [address] [place] [address] Care Team Providers Care Travel Rn Or Name Role Phone Daniel Mota MD Primary Care Provider Unavail able Ayan Clayton MD Primary Care Provider [phone] Encounter Details Date Type Department Care Team Description 11/18/2018 Hospital Medical Records [address] Social History Tobacco Use Types Packs/Day [...] on filedocumented in this encounter Care Teams Travel Rn Or Relationship Specialty Start Date End Date Daniel Mota MD PCP - General Internal Medicine 10/20/16 09/23/19 Ayan Clayton MD [address] [place] [address] PCP - General Internal Medicine 09/24/19 documented as of this encounter
--- OUTSIDE RECORDS SUMMARY | 2024-05-16 15:27 | XMS_ITS | Encounter Summary ---
Author Organization [facility] Address [address] [place] [address] Care Team Providers Care Air Hammer Operator Name Role Phone Ayan Clayton MD Primary Care Provider [phone] Encounter Details Date Type Department Care Team Description 06/08/2023 [facility] Controlled Substance Contract Medical Records [address] [place] [address] Abstract, Provider Social History Tobacco Use Types [...] on filedocumented in this encounter Care Teams Air Hammer Operator Relationship Specialty Start Date End Date Ayan Clayton MD [address] [place] [address] PCP - General Internal Medicine 09/24/19 documented as of this encounter
--- OUTSIDE RECORDS SUMMARY | 2024-05-16 15:27 | XMS_ITS | Encounter Summary ---
Author Organization [facility] Address [address] [place] [address] Care Team Providers Care Supervisor Slitting And Shipping Name Role Phone Daniel Mota MD Primary Care Provider [facility] Ayan Pulliam MD Primary Care Provider [phone] Reason for Visit * Reason Onset Date Comments hospital follow up 11/23/2018 Encounter Details Date Type Department Care Team Description 11/23/2018 Telephone Adult Medicine [address] [address] Daniel Mota MD hospital follow up Social [...] Spoke to pt. She was D/c from [facility] on 11/22/ She will be receiving VNA, , appt being set up , appt booked, for 12/03/2018 at 10:30 am Pt agreed to time and date * Telephone Encounter - Skylar Bardalesmargie - 11/23/2018 10:16 AM EDT Hospital follow up appointment needed Hospital patient was treated at: [facility] Was this only an ER visit or [...] filedocumented in this encounter Care Teams Supervisor Slitting And Shipping Relationship Specialty Start Date End Date Daniel Mota MD PCP - General Internal Medicine 10/20/16 09/23/19 Ayan Clayton MD [address] [place] [address] PCP - General Internal Medicine 09/24/19 documented as of this encounter
--- OUTSIDE RECORDS SUMMARY | 2024-05-16 15:27 | XMS_ITS | Encounter Summary ---
Author Organization [facility] Address [address] [place] [address] Care Team Providers Care Diathermy Equipment Repairer Name Role Phone Daniel Mota MD Primary Care Provider Unavail able Ayan Clayton MD Primary Care Provider Encounter Details Date Type Department Care Team Description 11/22/2018 Hospital Medical Records [address] [place] [address] Bashir Booth Social History Tobacco Use Types [...] on filedocumented in this encounter Care Teams Diathermy Equipment Repairer Relationship Specialty Start Date End Date Daniel Mota MD PCP - General Internal Medicine 10/20/16 09/23/19 Ayan Clayton MD [address] [place] [address] PCP - General Internal Medicine 09/24/19 documented as of this encounter
--- OUTSIDE RECORDS SUMMARY | 2024-05-16 15:27 | XMS_ITS | Encounter Summary ---
Author Organization [facility] Address [address] [place] [address] Care Team Providers Care Human Resource Management Instructor Name Role Phone Ayan Clayton MD Primary Care Provider [phone] Encounter Details Date Type Department Care Team Description 03/23/2022 Orders Only [facility] Lung Screening Program [place] [address] [facility] [address] [place] [phone] Frank Hampton MD [address] [facility] [address] [place] [address] History of tobacco abuse Social History Tobacco [...] health documented in this encounter Care Teams Human Resource Management Instructor Relationship Specialty Start Date End Date Ayan Clayton MD [address] [place] [address] PCP - General Internal Medicine 09/24/19 documented as of this encounter
--- OUTSIDE RECORDS SUMMARY | 2024-05-16 15:27 | XMS_ITS | Encounter Summary ---
Author Organization [facility] Address [address] [place] [address] Care Team Providers Care Master Naval Parachutist Name Role Phone Daniel Mota MD Primary Care Provider Unavail Victor Manuel Yu MD Primary Care Provider Unava ilable Daniel Mota MD Primary Care Provider Unavail Ayan Pulliam MD Primary Care Provider [phone] Victor Manuel Gonzales MD Primary Care Provider Unava ilmaximino Encounter Details Date Type Department Care Team Description 03/13/2006 [facility] Medical Records [address] [place] [address] Hugo Palacios MD Social History Tobacco Use [...] on filedocumented in this encounter Care Teams Master Naval Parachutist Relationship Specialty Start Date End Date Daniel Mota MD PCP - General 07/27/1994 12/22/15 Victor Manuel Gonzales MD PCP - General Internal Medicine 07/22/16 10/19/16 Daniel Mota MD PCP - General Internal Medicine 10/20/16 09/23/19 Ayan Clayton MD [address] [place] [address] PCP - General Internal Medicine 09/24/19 Victor Manuel Gonzales MD PCP - General 12/23/15 07/21/16 documented as of this encounter
--- OUTSIDE RECORDS SUMMARY | 2024-05-16 15:27 | XMS_ITS | Encounter Summary ---
Author Organization [facility] Address [address] [place] [address] Care Team Providers Care Computer Assembler Name Role Phone Ayan Clayton MD Primary Care Provider [phone] Reason for Visit * Reason Comments E-prescribe Rx Request Encounter Details Date Type Department Care Team Description 09/13/2021 Refill Endocrinology - [place] [address] [place] [address] Juan Alberto Kendall MD [address] [place], [place] [phone] E-prescribe Rx Request Social History Tobacco Use [...] uncontrolled documented in this encounter Care Teams Computer Assembler Relationship Specialty Start Date End Date Ayan Clayton MD [address] [place] [address] PCP - General Internal Medicine 09/24/19 documented as of this encounter
--- OUTSIDE RECORDS SUMMARY | 2024-05-16 15:27 | XMS_ITS | Encounter Summary ---
Author Organization [facility] Address [address] [place] [address] Care Team Providers Care Eyelet Punch Operator Name Role Phone Daniel Mota MD Primary Care Provider Ayan Rubalcava MD Primary Care Provider [phone] Encounter Details Date Type Department Care Team Description 05/31/2018 Telephone General Surgery - [place] [address] [facility] [address] [place] [address] Torrey Moreno MD [address] [place] [address] [address] [place], [place] [phone] Social History Tobacco Use Types Packs/Day Years [...] on filedocumented in this encounter Care Teams Eyelet Punch Operator Relationship Specialty Start Date End Date Daniel Mota MD PCP - General Internal Medicine 10/20/16 09/23/19 Ayan Clayton MD [address] [place] [address] PCP - General Internal Medicine 09/24/19 documented as of this encounter
--- OUTSIDE RECORDS SUMMARY | 2024-05-16 15:28 | XMS_ITS | Encounter Summary ---
Author Organization [facility] Address [address] [place] [address] Care Team Providers Care Branch Service Leader Name Role Phone Daniel Mota MD Primary Care Provider Unavail Victor Manuel Yu MD Primary Care Provider Unava ilable Daniel Mota MD Primary Care Provider Unavail Ayan Pulliam MD Primary Care Provider [phone] Victor Manuel Gonzales MD Primary Care Provider Unava ilmaximino Encounter Details Date Type Department Care Team Description 02/12/2013 Pt. Non Urgent Medical Question General Surgery [address] [place] [address] [phone] Bharath Rico MD [address] [place] [address] [phone] Social History Tobacco Use Types Packs/Day Years [...] filedocumented in this encounter Care Teams Branch Service Leader Relationship Specialty Start Date End Date Daniel Mota MD PCP - General 07/27/1994 12/22/15 Victor Manuel Gonzales MD PCP - General Internal Medicine 07/22/16 10/19/16 Daniel Mota MD PCP - General Internal Medicine 10/20/16 09/23/19 Ayan Clayton MD [address] [place] [address] PCP - General Internal Medicine 09/24/19 Victor Manuel Gonzales MD PCP - General 12/23/15 07/21/16 documented as of this encounter
--- OUTSIDE RECORDS SUMMARY | 2024-05-16 15:28 | XMS_ITS | Encounter Summary ---
Author Organization [facility] Address [address] [place] [address] Care Team Providers Care Fingernail Technician Name Role Phone Daniel Mota MD Primary Care Provider Unavail able Ayan Clayton MD Primary Care Provider [phone] Encounter Details Date Type Department Care Team Description 02/06/2019 Hospital Medical Records [address] [place] [address] Daniel Ibarra Social History Tobacco Use Types Packs/Day Years [...] on filedocumented in this encounter Care Teams Fingernail Technician Relationship Specialty Start Date End Date Daniel Mota MD PCP - General Internal Medicine 10/20/16 09/23/19 Ayan Clayton MD [address] [place] [address] PCP - General Internal Medicine 09/24/19 documented as of this encounter
--- OUTSIDE RECORDS SUMMARY | 2024-05-16 15:28 | XMS_ITS ---
Author Organization [facility] Address [address] [facility] [address] [place] [address] Care Team Providers Care Board Mill Supervisor Name Role Phone Ayan Clayton Primary Care Provider SKYLAR Perez Unavailable [phone] Allergies Allergen (clinical drug ingredient) Drug/Non Drug [...] N/A Encounters Encounter Location Date Provider Diagnosis [facility] [address] [facility] [address] [place] [address] 01/30/2023 SKYLAR HANNA Type 2 diabetes mellitus [...] debridement of toenails x 10 with a door cutter and a curette, pt tolerated well. Discussed [...] Provider:?Skylar Hanna DPM :[id number]???Age:67 Y???Sex:Female D ate:01/30/2023 Address:[facility] ONUR [address]END[place]ZA, [place] [id number] Pcp:Ayan Clayton Subjective: * Chief Complaints: * [...] bilaterally, protective sensation diminished 2/10 with 5.07 [place] bilaterally, vibratory sensation with tuning fork [...] debridement of toenails x 10 with a door cutter and a curette, pt tolerated well. Discussed [...] Codes:? DRAIN /INJECT, INTERMEDIATE JOINT/BURSA, [place]: [place] [address] DEBRIDE NAIL, 6 OR MORE, Modifiers: q9 J1100 INJ DEXAMETHASONE SODIM PHOSHATE 1 [id number] INJ TRIAMCINOLONE ACETONIDE 10 MG * Follow Up:?3 Months * Billing Information: * Visit Code:? 06364 Office Visit, Est Pt., Level 3. Modifiers: 25 * Procedure Codes:? DRAIN/INJECT, INTERMEDIATE JOINT/[place] [address] DEBRIDE NAIL, 6 OR MORE. Modifiers: q9 J1100 INJ DEXAMETHASONE SODIM PHOSHATE 1 MG. J3301 INJ TRIAMCINOLONE ACETONIDE 10 MG. * Sign off status: Completed true * Provider:Shirley Hanna DPM Date:? 01/30/2023 Generated for Mark weir/Grabiel/Jannieitting on:?05/16/2024 03:28 PM EST History and Physical Notes * [...] bilaterally, protective sensation diminished 2/10 with 5.07 [place] bilaterally, vibratory sensation with tuning fork [...]
--- OUTSIDE RECORDS SUMMARY | 2024-05-16 15:28 | XMS_ITS | Encounter Summary ---
Author Organization [facility] Address [address] [place] [address] Care Team Providers Care Deck Scaler Name Role Phone Daniel Mota MD Primary Care Provider [facility] Ayan Pulliam MD Primary Care Provider [phone] Reason for Visit * Reason Onset Date Comments Faxed Order 12/14/2018 Encounter Details Date Type Department Care Team Description 12/14/2018 Telephone Adult Medicine [address] [address] Daniel Mota MD Faxed Order Social History [...] encounter Miscellaneous Notes * Telephone Encounter - Betty Solis - 12/18/2018 10:26 AM EDT Faxed order received from [facility] at Home, please sign date and return order to fax number [phone]. * Telephone Encounter - Rosa Lahtam - 12/14/2018 9:35 AM EDT Physician Order for Dr. Daniel Mota's signature documented in this encounter Plan of Treatment Not on file documented as of this encounter Visit Diagnoses Not on filedocumented in this encounter Care Teams Deck Scaler Relationship Specialty Start Date End Date Daniel Mota MD PCP - General Internal Medicine 10/20/16 09/23/19 Ayan Clayton MD [address] [place] [address] PCP - General Internal Medicine 09/24/19 documented as of this encounter
--- OUTSIDE RECORDS SUMMARY | 2024-05-16 15:28 | XMS_ITS | Data Portability ---
Author Organization [facility] Main Office Address [address] [facility], [address] [place] [address] Care Team Providers Care Relationship Advisor Name Role Phone YARITZA PERDOMO - 2ND FLOOR OTHER GARETT ALFARO Primary Care Provider [phone] Assessment No assessment recorded. Plan of Treatment Reminders Order Date Submit Date Provider Last Modified By Organization Details Last Modified Time Details Appointments Acute Rounding Visit 2024 02:46P Jayy Armenta NP Not available Not available Not available Lab None recorded. Referral None recorded. Procedures None recorded. Surgeries None recorded. Imaging None recorded. Medication Orders morphine ER 15 mg tablet,ex tended release 2024 025 [facility] , [address] [place] [address], [id number], 05/06/2024 22:13:52 oxycodone 10 mg tablet 2024 025 [facility] , [address] [place] [address], [address], 05/06/2024 22:13:53 Patient TargetsNo targets recorded. Patient InstructionsNo instructions recorded. Reason for Referral None Reported. Problems Name Problem SNOMED Code Status Onset Date Resolution Date Notes Provider Name and Address Organization Details Recorded Time Wound of skin 161203503 Active 2024 right hip surgical wound MICHAEL ADAIR NP [address] [facility], [address], [place], [address], [facility] [employer] 14:01:04 Total replacement of right hip joint Active 2024 MICHAEL ADAIR NP [address] [facility], [address], [place], [address], [facility] [employer] [facility] 5 14:02:07 Hyperlipide tayler 07119616 Active 2024 MICHAEL ADAIR NP [address] [facility], [address], [place], [address], [facility] [employer] [facility] 5 14:07:43 Gastroesoph ageal reflux disease without esophagitis 610433481 Active 2024 MICHAEL ADAIR NP [address] , [address], [place], [address], [facility] [employer] [facility] 5 14:07:53 Chronic obstructive pulmonary disease 10920457 Active 2024 MICHAEL ADAIR NP [address] [facility], [address], [place], [address], [facility] [employer] [facility] 5 14:08:17 Chronic pain 39879632 Active 2024 MICHAEL ADAIR NP [address] [facility], [address], [place], [address], [facility] [employer] [facility] 5 14:08:31 Mixed anxiety and depressive disorder 769149259 Active 2024 MICHAEL ADAIR NP [address] , [address], [place], [address], [facility] [employer] [facility] 5 14:08:38 Osteoarthri tis 221776766 Active 2024 MICHAEL ADAIR NP [address] [facility], [address], [place], [address], [facility] [employer] 5 14:12:21 Problem Notes None recorded. Medical Equipment None Reported. Allergies Allergen ID Allergen Name Allergen Category Reaction Reaction Severity Criticality Documentation Date Start Date Code Code System Note Provider Name and Address Organization Details Recorded Time 00529 Substance with sulfonami de structure and antibacte rial mechanism of action (substanc e) medicatio n Not available Not available [facility] 05/04/20242005 26205 8003 SNOMED swell ing and diffi culty breat devonte Not Available Not Available Not Available 66684 metformin medicatio n diarrhea Not available Not available 05/04/20242016 6809 RxNorm Not Available Not Available Not Available 06275 semagluti de medicatio n Not available Not available Not available 05/04/2024 RxNorm Not Available Not Available Not Available Medications Name Sig Start Date Stop Date Status Note LastModified by Organization Details LastModified Time morphine ER 15 mg tablet,exte nded release Take 1 tablet every day by oral route at bedtime. 025 active Not Available Not Available Not Avai lable oxycodone 10 mg tablet 10 mg po TID scheduled and 10 mg po q 4 hrs prn. 025 active Not Available Not Available Not Avai lable Vitals Date Recorded Heart rate Respiratory rate Body temperature Oxygen saturation Oxygen saturation in Arterial blood by Pulse oximetry Systolic blood pressure Diastolic blood pressure Provider Name and Address Organization Details Last Updated DateTime 5 83 /min 16 /min 98.4 [degF] 97 % 97 % 160 mm[Hg] 80 mm[Hg] MICHAEL ADAIR NP [address], [address] , [employer] 5 14:00:15 Date Recorded Body weight Body mass index (BMI) Body height Heart rate Respiratory rate Body temperature Oxygen saturation Oxygen saturation in Arterial blood by Pulse oximetry Systolic blood pressure Diastolic blood pressure Provider Name and Address Organization Details Last Updated DateTime 5 74783.0 3 g 25.8 kg/m2 149.86 cm 83 /min 18 /min 98.5 [degF] 96 % 96 % 161 mm[Hg] 68 mm[Hg] Vida Herrmann MD [address] [facility] [address], [place], [address] , [employer] 5 19:40:07 Date Recorded Body height Body mass index (BMI) Body weight Heart rate Respiratory rate Body temperature Oxygen saturation Oxygen saturation in Arterial blood by Pulse oximetry Systolic blood pressure Diastolic blood pressure Provider Name and Address Organization Details Last Updated DateTime 5 149.86 cm 25.7 kg/m2 50420.2 3 g 72 /min 18 /min 97.8 [degF] 96 % 96 % 142 mm[Hg] 78 mm[Hg] Sanaz Armenta NP [address], [address], [place], [address], [facility] [employer] [facility] 5 12:05:39 Social History Question Answer Notes LastModified by Organizat ion Details LastModified Time Tobacco Smoking Status Former Smoker [phone], 3 ppd Vida Herrmann MD [address] [facility], [address], [place], [address], [facility] [employer] [facility] 05/06/2024 22:16:45 Do You Have An Advance Directive? Yes Information not available 05/06/2024 What Is Your Level Of Alcohol Consumption? None Information not available 05/04/2024 What Is Your Code Status? Full Code Information not available 05/06/2024 Where Do You Live? Condo Alone, 2 Steps To Enter, Then 1 Level. Information not available 05/06/2024 Legal Guardian? No Informati on not available 05/06/2024 Do You Have A Medical Power Of Senior Storage Administrator? Yes Information not available 05/06/2024 What Was The Date Of Your Most Recent Tobacco Screening? 05/06/2024 Information not available 05/06/2024 Do You Have An Out Of Hospital DNR? No Information not available 05/06/2024 What Is Your Relationship Status? Information not available 05/06/2024 How Much Tobacco Do You Smoke? No Information not available 05/06/2024 Do You Use Any Illicit Or Recreational Drugs? No Information not available 05/04/2024 Has Tobacco Cessation Counseling Been Provided? No N/a As Pt No Longer Smokes Information not available 05/06/2024 How Many Years Have You Smoked Tobacco? 45 135 Pack Years Information not available 05/06/2024 Do You Or Have You Ever Used Any Other Forms Of Tobacco Or Nicotine? No Information not available 05/06/2024 Sex: Unknown Functional Status None recorded. Mental Status None recorded. Family History Nothing Reported Notes:n/c Medical History No medical history recorded. Gynecological HistoryNo gynecological history recorded. Obstetrics History GPAL:G 0 P 0 0 0 0 Immunizations Vaccine Type Date Status Note Provider Johnathon askew and Address Organization Details Recorded Time Tdap 2 completed Theresa morton [facility] 05/08/2024 16:05:46 Tdap 3 completed Theresa Parveen null, [facility] 05/08/2024 16:05:54 Td(adult) unspecified formulation 3 completed Theresa Parveen null, [facility] 05/08/2024 16:06:09 Pneumococcal conjugate PCV 13 1 completed Theresa Parveen null, [facility] 05/08/2024 16:06:29 pneumococcal polysaccharide PPV23 5 completed Theresa Parveen null, [facility] 05/08/2024 16:06:45 influenza, unspecified formulation 3 completed Theresa Parveen null, [facility] 05/08/2024 16:07:03 influenza, unspecified formulation 4 completed Theresa Parveen null, [facility] 05/08/2024 16:07:17 SARS-COV-2 (COVID-19) vaccine, UNSPECIFIED 1 completed Theresa Parveen null, [facility] 05/08/2024 16:07:38 SARS-COV-2 (COVID-19) vaccine, UNSPECIFIED 1 completed Theresa Parveen null, [facility] 05/08/2024 16:07:47 SARS-COV-2 (COVID-19) vaccine, UNSPECIFIED 2 completed Theresa Parveen null, [facility] 05/08/2024 16:07:59 SARS-COV-2 (COVID-19) vaccine, UNSPECIFIED 2 completed Theresa Parveen null, [facility] 05/08/2024 16:08:09 SARS-COV-2 (COVID-19) vaccine, UNSPECIFIED 3 completed Theresa Parveen null, [facility] 05/08/2024 16:08:20 zoster, unspecified formulation 9 completed Theresa Parveen null, [facility] 05/08/2024 16:08:38 zoster, unspecified formulation 0 completed Theresa Parveen null, [facility] 05/08/2024 16:08:46 Past Encounters Encounter ID Performer Location Encounter Start Date Encounter Closed Date Diagnosis/Indication Diagnosis SNOMED-CT Code Diagnosis ICD10 Code Diagnosis Note [id number] MICHAEL ADAIR NP [address] [address] 05/04/2024 12:51:16 05/07/2024 13:49:18 Wound of skin 924164500 T14.8XXA monitor surgical incision for any signs of infectionc hange dressing as appropriat efollowup with ortho as planned Chronic pain 02616391 G8 9.29 lido patchtizan adine 4 mg prndiclofe nac gel bidms contin 15 mg hsoxycodon e 10 mg tid Chronic ob structive pulmonary disease 12826822 J44.9 combivent prnzyrtec 10 mg dailymonit or resp status Gastroesop hageal reflux disease without esophagitis 370402479 K21.9 omeprazole 20 mg dailybicar b 650 mg bid Hyperlipidemia 05514666 E78.5 atrovastat in 20 mg daily Mixed anxi ety and depressive disorder 248772693 F41.8 cymbalta 30 mg dailypsych prn Osteoarthritis 710114652 M19.90 lido patchtizan adine 4 mg prndiclofe nac gel bidms contin 15 mg hsoxycodon e 10 mg tid [id number] Vida Herrmann MD [address] [address] 05/06/2024 18:09:41 05/16/2024 14:57:48 Chronic pain 82490220 G89.29 Meds as above.Will wean off prn oxy prior to d/c. Osteoarthritis 896491223 M15.0 Z96.643 S/P LTHR in 08/2023 and RTHR on 04/30/24Usua lly takes tizanidine 4 mg BID, will reorder that way.Contin ue lidocaine patch qd for 12 hrs, diclofenac gel BID, MSContin 15 mg qhs, oxycodone 10 mg TID and 10 mg q 4 hrs prn, and APAP 650 mg q 6 hrs prn.Needs PT/OT for strengthen ing, balance, gait training, safety and function.C ontinue fall precaution s.Monitor for safety.Mon itor incision.F /U with ortho as planned. Chronic ob structive pulmonary disease 52461690 J43.8 At baseline.C ontinue cetirizine 10 mg qd and combivent 2 puffs q 4 hrs prn.Monito r resp status Gastroesop hageal reflux disease without esophagitis 555197354 K21.9 No current sxs.Contin ue omeprazole 20 mg qd and sodium bicarb 650 mg BIDMonitor GI sxs. Hyperlipidemia 79891223 E78.49 Continue atorvastat in 20 mg qdMonitor labs as outpt. Mixed anxi ety and depressive disorder 220795466 F41.8 Mood good tonight.Co ntinue cymbalta 30 mg qdMonitor mood.Psych consult prn [id number] Sanaz Armenta NP [address] [address] 05/09/2024 12:04:48 05/10/2024 13:24:20 Osteoarthritis 033584884 M15.0 Z96.643 S/P LTHR in 08/2023 and RTHR on 04/30/24cont tizanidine 4 mg BIDlidocai ne patch qd for 12 hrsdiclofe nac gel BIDMSConti n 15 mg qhsoxycodo ne 10 mg TID and 10 mg q 4 hrs prnAPAP 650 mg q 6 hrs prn.Needs PT/OT for strengthen ing, balance, gait training, safety and function.C manuelitoinue fall precaution s.Monitor for safety.Mon itor incision.F /U with ortho as planned. Chronic pain 79354049 G8 9.29 Meds as above.Will wean off prn oxy prior to d/c. Chronic ob structive pulmonary disease 26768843 J43.8 Continueco mbivent prnzyrtec 10 mg dailymonit or resp status Gastroesop hageal reflux disease without esophagitis 238152756 K21.9 contomepra zole 20 mg dailybicar b 650 mg bid Hyperlipidemia 03830607 E78.5 contatorva statin 20 mg daily Mixed anxi ety and depressive disorder 564609682 F41.8 contcymbal ta 30 mg dailypsych prn Wound of skin 154333025 T14.8XXA sp right hip arthroplas ty with dr annabelle mobley surgical incision for any signs of infectionc hange dressing as appropriat efollowup with ortho as planned Infection caused by Norovirus 277816704 A08.11 pt with norovirus positive stool testsympto ms with nausea and vomiting started on 05/03 progressed with diarrhea and now on 05/09 lessening. health dept updated as requested contimmodi um prnzofran 4 mg po q 6 hours prnencoura ge po fluidslabs weekly and prnisolati on precaution s as facility protocolmo nitor vs qd and prn Health Concerns Section Related Observation LastModified by Organization Detai ls LastModified Time None Recorded Concern Status LastModified by Organization Details LastModified Time None Recorded Advance Directives Directive Y: Payers Encounter Date Sequence Insurance Name Policy Number Policy Toribio Covered Member ID Toribio Member ID Guarantor Name 05/04/2024 1 [facility] - DOS ON OR AFTER 2022 - MEDICARE [place]ANTAGE [place]/ADV ANTAGE - PPO) Yanet Fernando [id number] Yanet Fernando 05/06/2024 1 [facility] - DOS ON OR AFTER 2022 - [place]/ADV ANTAGE - PPO) Yanet Fernando [id number] Yanet Fernando 05/09/2024 1 [facility] - DOS ON OR AFTER 2022 - [place]/ADV ANTAGE - PPO) Yanet Fernando [id number] Yanet Fernando Notes Date Note Type Note Provider Name and Address Organization Details Recorded Time 05/04/2024 text/html seen today for initial intake visit-68 yof admitted to for rehab after having a right total hip replacement, she tolerated the surgery well with no complications. CAOx3 sitting up in bed, good cms to right leg, dressing small staining noted MICHAEL ADAIR NP [address] [facility], [address], [place], [address], [place] - [employer] 05/04/2024 14:18:25 05/06/2024 text/html This is a 68 yo woman who is here for rehab after a hospitalization for an right THR for ESOA unresponsive to conservative tx. She was taken to theOR on y Dr. Ruiz.She tolerated procedure well, then on 05/02 her hgb dropped from 8.4 to 7.4 (had been 11 pre-op) and she got2U PRBCswith improvement in hgb to 9.4.She hadhypokalemia and hypernatremia, improved with K+ and IV fluids.She worked with PT and STR was recommended.Transferr ed here on 05/03. Since here she has been doing well with rehab.Some issues with pain control as pt's MSContin was never ordered from pharmacy. Also she is supposed to have a prn order for oxy in addition to her home dose of 10 mg TID.Also takes tizanidine 4 mg q 4 hrs prn at home for spasms, usually about 3x/d.She tells me she started with nausea this afternoon and just had watery diarrhea. Her PMH includes HTN, COPD/asthma overlap syndrome, OA, hx of DVT with IVC filter in place, s/p LTHR in 08/2023 with periprosthetic fx 2 wks later and surgical revision, GERD, s/p gastric sleeve in 2019, s/p several back surgeries, s/p Covid, anxiety/depression, and HLD. Vida Herrmann MD [address] [place] [address], [address], [place], [address], [facility] - [employer] 05/16/2024 00:16:51 05/09/2024 text/html This is a 68 yo woman who is here after hospitalization for an right THR for ESOA unresponsive to conservative tx here for acute rehab,. Her PMH includes HTN, COPD/asthma overlap syndrome, OA, hx of DVT with IVC filter in place, s/p LTHR in 08/2023 with periprosthetic fx 2 wks later and surgical revision, GERD, s/p gastric sleeve in 2019, s/p several back surgeries, s/p Covid, anxiety/depression, and HLD. She was noted to have watery stools on 05/06 and stool sample sent with note of norovirus reported today on 05/08. She was moved to a isolation room and health department called for follow up of her episode. The health department was called per request and all questions answered appropriately. Pt gave health department her personal number and will be available for further questions. Pt called daughter on the phone as requested. Norovirus, plan, and recommendation to stay in rehab voiced with pt and daughter. All in agreement to stay. On exam, Pt is alert and oriented x 3. She is euvolemic and seems to be doing well. She states the nausea and diarrhea is lessening, however she is staying hydrated. Labs reviewed from 05/06 and stable. Since here she is doing well with therapy and WBAT.Per therapy note05/08 :Pt performed multiple functional sit to stand and pivot transfers to increase independence with VC for sequencing, SBA and pt ambulated with FWW, SBA for safety, 2 x 70 feet to increase independence, pt navigated 3 stairs, R railing, CGA for safety with step-to pattern Per dc summary:She was taken to the OR on 04/[address] Ruiz and tolerated procedure well, then on 05/02 her hgb dropped from 8.4 to 7.4 (had been 11 pre-op) and she got 2U PRBCs with improvement in hgb to 9.4.She had hypokalemia and hypernatremia, improved with K+ and IV fluids.She worked with PT and STR was recommended.Transferr ed here on 05/03. Sanaz Armenta NP [address] [facility], [address], [place], [address], [facility] - [employer] 05/09/2024 13:44:40 OBGyn Episode No OBEpisode recorded.
--- OUTSIDE RECORDS SUMMARY | 2024-05-16 15:28 | XMS_ITS | Encounter Summary ---
Author Organization [facility] Address [address] [place] [address] Care Team Providers Care Agricultural Economist Name Role Phone Ayan Clayton MD Primary Care Provider [phone] Reason for Visit * Reason Onset Date Comments VNA Call 08/31/2023 Encounter Details Date Type Department Care Team Description 08/31/2023 Telephone Adult Medicine [address] [phone] Ayan Clayton MD [address] [place] [phone] VNA Call Social History Tobacco Use Types [...] - 08/31/2023 11:56 AM EDT [facility] Ortho gave the original order for PTand OT Please review and advise Please send response to the VNA pool P [id number] Thank you Last visit08/01/23 documented in this encounter Plan of Treatment Not on file documented as of this encounter Visit Diagnoses Not on filedocumented in this encounter Care Teams Agricultural Economist Relationship Specialty Start Date End Date Ayan Clayton MD [address] [place] [address] PCP - General Internal Medicine 09/24/19 documented as of this encounter
--- OUTSIDE RECORDS SUMMARY | 2024-05-16 15:28 | XMS_ITS | Encounter Summary ---
Author Organization [facility] Address [address] [place] [address] Care Team Providers Care Family Day Care Worker Name Role Phone Daniel Mota MD Primary Care Provider Unavail Victor Manuel Yu MD Primary Care Provider Unava ilable Daniel Mota MD Primary Care Provider Unavail able Ayan Clayton MD Primary Care Provider [phone] VictorM anuel Gonzales MD Primary Care Provider Unava ilable Reason for Referral * Specialist (Routine) - Authorized/Booked Specialty Diagnoses / Procedures Referred By Contact Referred To Contact INTERVENTIONAL RADIOLOGY Procedures REFERRAL TO INTERVENTIONAL RADIOLOGY Bharath Rico MD [address] [place] [address] Ext Interventional Rad Referral ID Status Reason Start Date Expiration Date V isits Requested Visits Authorized SEE REVIEW 11/06/12 Authorized/ Booked 11/27/2012 02/27/2013 1 1 * Specialist (Routine) - Authorized/Booked Specialty Diagnoses / Procedures Referred By Contact Referred To Contact INTERVENTIONAL RADIOLOGY Diagnoses Lymphadenopathy Procedures REFERRAL TO INTERVENTIONAL RADIOLOGY Bharath Rico MD [address] [place] [address] Ext Interventional Rad Referral ID Status Reason Start Date Expiration Date V isits Requested Visits Authorized SEE REVIEW 11/06/12 Authorized/ Booked 11/27/2012 02/27/2013 1 1 Encounter Details Date Type Department Care Team Description 11/27/2012 Orders Only General Surgery [address] [place] [id number] Bharath Rico MD [address] [place] [address] Lymphadenopathy (Primary Dx) Social History Tobacco Use [...] nodes documented in this encounter Care Teams Family Day Care Worker Relationship Specialty Start Date End Date Daniel Mota MD PCP - General 07/27/1994 12/22/15 Victor Manuel Gonzales MD PCP - General Internal Medicine 07/22/16 10/19/16 Daniel Mota MD PCP - General Internal Medicine 10/20/16 09/23/19 Ayan Clayton MD [address] [place] [address] PCP - General Internal Medicine 09/24/19 Victor Manuel Gonzales MD PCP - General 12/23/15 07/21/16 documented as of this encounter
--- OUTSIDE RECORDS SUMMARY | 2024-05-16 15:28 | XMS_ITS | Encounter Summary ---
Author Organization [facility] Address [address] [place] [address] Care Team Providers Care Wire Saw Operator Name Role Phone Daniel Mota MD Primary Care Provider Unavail Victor Manuel Yu MD Primary Care Provider Unava ilable Daniel Mota MD Primary Care Provider Unavail Ayan Pulliam MD Primary Care Provider [phone] Victor Manuel Gonzales MD Primary Care Provider Unava ilmaximino Encounter Details Date Type Department Care Team Description 12/11/2013 CLINICAL HAEMATOLOGIST/[facility] Report Medical Records [address] [place] [address] Abstract, Provider Social History Tobacco Use Types [...] filedocumented in this encounter Care Teams Wire Saw Operator Relationship Specialty Start Date End Date Daniel Mota MD PCP - General 07/27/1994 12/22/15 Victor Manuel Gonzales MD PCP - General Internal Medicine 07/22/16 10/19/16 Daniel Mota MD PCP - General Internal Medicine 10/20/16 09/23/19 Ayan Clayton MD [address] [place] [address] PCP - General Internal Medicine 09/24/19 Victor Manuel Gonzales MD PCP - General 12/23/15 07/21/16 documented as of this encounter
--- OUTSIDE RECORDS SUMMARY | 2024-05-16 15:28 | XMS_ITS | Encounter Summary ---
Author Organization [facility] Address [address] [place] [address] Care Team Providers Care Paste Up Artist Apprentice Name Role Phone Daniel Mota MD Primary Care Provider Unavail Victor Manuel Yu MD Primary Care Provider Unava ilable Daniel Mota MD Primary Care Provider Unavail Ayan Pulliam MD Primary Care Provider [phone] Victor Manuel Gonzales MD Primary Care Provider Unava jaxson Encounter Details Date Type Department Care Team Description 01/22/2013 Pt. Non Urgent Medic al Question Adult Medicine [address] [address] Daniel Mota MD Social History Tobacco Use [...] as of this encounter Progress Notes * Zabrina Espinoza M.A. - 01/23/2013 8:49 AM EDTFrom: YANET KING To: Daniel Mota MD Sent: MonJan 22, 2013 6:54 PM Subject: Need appt I would like to make an appt to be seen for my physical it says I'm over due Sent from my iPhone documented in this encounter Plan of Treatment Not on file documented as of this encounter Visit Diagnoses Not on filedocumented in this encounter Care Teams Paste Up Artist Apprentice Relationship Specialty Start Date End Date Daniel Mota MD PCP - General 07/27/1994 12/22/15 Victor Manuel Gonzales MD PCP - General Internal Medicine 07/22/16 10/19/16 Daniel Mota MD PCP - General Internal Medicine 10/20/16 09/23/19 Ayan Clayton MD [address] [place], [place] [phone] PCP - General Internal Medicine 09/24/19 Victor Manuel Gonzales MD PCP - General 12/23/15 07/21/16 documented as of this encounter
--- OUTSIDE RECORDS SUMMARY | 2024-05-16 15:28 | XMS_ITS | Encounter Summary ---
Author Organization [facility] Address [address] [place] [address] Care Team Providers Care Cement Mason Helper Name Role Phone Daniel Mota MD Primary Care Provider Unavail able Ayan Clayton MD Primary Care Provider [phone] Encounter Details Date Type Department Care Team Description 02/25/2019 Orders Only Adult Medicine [address] [address] Daniel Mota MD Social History Tobacco Use [...] on filedocumented in this encounter Care Teams Cement Mason Helper Relationship Specialty Start Date End Date Daniel Mota MD PCP - General Internal Medicine 10/20/16 09/23/19 Ayan Clayton MD [address] [place] [address] PCP - General Internal Medicine 09/24/19 documented as of this encounter
--- OUTSIDE RECORDS SUMMARY | 2024-05-16 15:28 | XMS_ITS | Encounter Summary ---
Author Organization [facility] Address [address] [place] [address] Care Team Providers Care Concrete Saw Operator Name Role Phone Ayan Clayton MD Primary Care Provider [phone] Encounter Details Date Type Department Care Team Description 01/03/2024 Telephone Adult Medicine [facility] [address] [place] [address] [phone] Ayan Clayton MD [address] [place] [address] [phone] Social History Tobacco Use Types Packs/Day Years [...] on filedocumented in this encounter Care Teams Concrete Saw Operator Relationship Specialty Start Date End Date Ayan Clayton MD [address] [place] [id number] PCP - General Internal Medicine 09/24/19 documented as of this encounter
--- OUTSIDE RECORDS SUMMARY | 2024-05-16 15:28 | XMS_ITS | Encounter Summary ---
Author Organization [facility] Address [address] [place] [address] Care Team Providers Care Traffic Operations Manager Name Role Phone Daniel Mota MD Primary Care Provider Unavail able Ayan Clayton MD Primary Care Provider [phone] Encounter Details Date Type Department Care Team Description 08/21/2019 Cook Box Filler Report Medical Records [address] [place] [address] Ta Garcia MD Social History Tobacco Use [...] filedocumented in this encounter Care Teams Traffic Operations Manager Relationship Specialty Start Date End Date Daniel Mota MD PCP - General Internal Medicine 10/20/16 09/23/19 Ayan Clayton MD [address] [place], [place] [phone] PCP - General Internal Medicine 09/24/19 documented as of this encounter
--- OUTSIDE RECORDS SUMMARY | 2024-05-16 15:28 | XMS_ITS | Encounter Summary ---
Author Organization [facility] Address [address] [place] [address] Care Team Providers Care Solar Hot Water Installer Name Role Phone Daniel Mota MD Primary Care Provider Unavail Victor Manuel Yu MD Primary Care Provider Unava ilable Daniel Mota MD Primary Care Provider Unavail Ayan Pulliam MD Primary Care Provider [phone] Victor Manuel Gonzales MD Primary Care Provider Justinava jaxson Encounter Details Date Type Department Care Team Description 11/27/2013 Controlled Substance Plan Medical Records [address] [place] [address] Abstract, Provider Social History Tobacco Use Types [...] on filedocumented in this encounter Care Teams Solar Hot Water Installer Relationship Specialty Start Date End Date Daniel Mota MD PCP - General 07/27/1994 12/22/15 Victor Manuel Gonzales MD PCP - General Internal Medicine 07/22/16 10/19/16 Daniel Mota MD PCP - General Internal Medicine 10/20/16 09/23/19 Ayan Clayton MD [address] [place] [phone] PCP - General Internal Medicine 09/24/19 Victor Manuel Gonzales MD PCP - General 12/23/15 07/21/16 documented as of this encounter
--- OUTSIDE RECORDS SUMMARY | 2024-05-16 15:28 | XMS_ITS | Encounter Summary ---
Author Organization [facility] Address [address] [place] [address] Care Team Providers Care X Ray Physician Name Role Phone Ayan Clayton MD Primary Care Provider [phone] Encounter Details Date Type Department Care Team Description 05/01/2023 Nick Setter Report Medical Records [address] [place] [address] Rell Leavitt Social History Tobacco Use Types [...] on filedocumented in this encounter Care Teams X Ray Physician Relationship Specialty Start Date End Date Ayan Clayton MD [address] [place], [place] [phone] PCP - General Internal Medicine 09/24/19 documented as of this encounter
--- OUTSIDE RECORDS SUMMARY | 2024-05-16 15:28 | XMS_ITS | Encounter Summary ---
Author Organization [facility] Address [address] [place] [address] Care Team Providers Care Controls Engineer Name Role Phone Daniel Mota MD Primary Care Provider Unavail able Ayan Clayton MD Primary Care Provider [phone] Encounter Details Date Type Department Care Team Description 07/17/2019 Medical Information Officer Report Medical Records [address] [place] [phone] Ta Garcia MD Social History Tobacco Use [...] on filedocumented in this encounter Care Teams Controls Engineer Relationship Specialty Start Date End Date Daniel Mota MD PCP - General Internal Medicine 10/20/16 09/23/19 Ayan Clayton MD [address] [place] [address] [phone] PCP - General Internal Medicine 09/24/19 documented as of this encounter
--- OUTSIDE RECORDS SUMMARY | 2024-05-16 15:28 | XMS_ITS | Encounter Summary ---
Author Organization [facility] Address [address] [place] [address] Care Team Providers Care Slag Wheeler Name Role Phone Ayan Clayton MD Primary Care Provider [phone] Encounter Details Date Type Department Care Team Description 12/14/2023 Telephone Adult Medicine [address] [phone] Ayan Clayton MD [address] [place] [address] [phone] Social History Tobacco Use Types Packs/Day Years [...] on filedocumented in this encounter Care Teams Slag Wheeler Relationship Specialty Start Date End Date Ayan Clayton MD [address] [place] [phone] PCP - General Internal Medicine 09/24/19 documented as of this encounter
--- OUTSIDE RECORDS SUMMARY | 2024-05-16 15:28 | XMS_ITS ---
Author Organization [facility] Address [address] [facility] [address] [place] [address] Care Team Providers Care Cultural Centre Manager Name Role Phone LENNIE ALFARO Primary [...] puffs Inhalation Twice a day Active Nystatin 259308 UNIT/GM 1 application Externally Twice a day [...] every 6 hrs Active Deep Sea Nasal [place] 0.65 % 2 sprays in each nostril [...] 04/24/2024 Encounters Encounter Location Date Provider Diagnosis [facility] [address] [facility] [address] [place] [phone] 04/24/2024 LENNIE ALFARO Chronic pain syndrom e [...] DVT and she follows up with adjunct trainer, chronic kidney disease and she follows up with filter cloth maker, as the amount, degenerative disc disease/osteoarthr itis and she has an upcoming surgery for total right hip replacement at [facility]. She is here today for chronic pain management Chronic pain management. Chronic pain secondary to degenerative disc disease. Prognosis: Mild to moderate Medical necessity supported by H&P, imaging and testing [place] pain treatment protocol completed. Yes Chronic opioid/pain [...] opioid misuse based on ORT. Toxicology and WHEEL BRAIDER monitoring done and will follow protocol set forth by practice. As such controlled substance use requires judicious monitoring to access patient compliance with mutually agreed upon controlled substance use agreement which has been signed by the patient and initiation of controlled substance prescribing. Therefore following state, Federal, [facility] guidelines for controlled substance testing policies. This patient has been assessed on the basis of psychometric risk tool, WHEEL BRAIDER monitoring, toxicology test results. Comorbid conditions may [...] DVT and she follows up with adjunct trainer, chronic kidney disease and she follows up with filter cloth maker, as the amount, degenerative disc disease/osteoarthr itis and she has an upcoming surgery for total right hip replacement at [facility]. She is here today for chronic pain management Chronic pain management. Chronic pain secondary to degenerative disc disease. Prognosis: Mild to moderate Medical necessity supported by H&P, imaging and testing [place] pain treatment protocol completed. Yes Chronic opioid/pain [...] opioid misuse based on ORT. Toxicology and WHEEL BRAIDER monitoring done and will follow protocol set forth by practice. As such controlled substance use requires judicious monitoring to access patient compliance with mutually agreed upon controlled substance use agreement which has been signed by the patient and initiation of controlled substance prescribing. Therefore following state, Federal, [facility] guidelines for controlled substance testing policies. This patient has been assessed on the basis of psychometric risk tool, WHEEL BRAIDER monitoring, toxicology test results. Comorbid conditions may [...] DVT and she follows up with adjunct trainer, chronic kidney disease and she follows up with filter cloth maker, as the amount, degenerative disc disease/osteoarthr itis and she has an upcoming surgery for total right hip replacement at [facility]. She is here today for chronic pain management Chronic pain management. Chronic pain secondary to degenerative disc disease. Prognosis: Mild to moderate Medical necessity supported by H&P, imaging and testing [place] pain treatment protocol completed. Yes Chronic opioid/pain [...] opioid misuse based on ORT. Toxicology and WHEEL BRAIDER monitoring done and will follow protocol set forth by practice. As such controlled substance use requires judicious monitoring to access patient compliance with mutually agreed upon controlled substance use agreement which has been signed by the patient and initiation of controlled substance prescribing. Therefore following state, Federal, [facility] guidelines for controlled substance testing policies. This patient has been assessed on the basis of psychometric risk tool, WHEEL BRAIDER monitoring, toxicology test results. Comorbid conditions may [...] Reason: Provider Name:Aide bond, 06/05/2024 10:15:00 AM, [address] [place] [address], [id number], Progress Notes * Yanet KINGDOB:1955 (68 yo F)Acc No.[id number]:04/24/2024 Progress Notes Patient:?LUIS Yanet Provider:?LENNIE ALFARO MD :1955???Age:68 Y???Sex:Female D ate:04/24/2024 Address:[address] [place] [address], [id number] Subjective: * Chief Complaints: * ???1 month f/u * HPI: ???Internal Medicine:?Yanet is a 68-year-old female with a pmhx of T2DM, HLD, Asthma, Vitamin D deficiency is here for follow-up. She he is going to have right hip surgery on May 01, 2024 at [facility] by Dr. Ruiz.? She uses a walker [...] x2, Dr. Garcia and another doctor in [place] 2019right carpal tunnel surgery pancreatitis 2023 * [...] Inhalation every 6 hrs Deep Sea Nasal [place] 0.65 % Solution 2 sprays in each nostril as needed Nasally every 2 hrs Fluticasone-Salmeterol 230-21 MCG/ACT Aerosol 2 puffs Inhalation Twice a day Nystatin 441832 UNIT/GM Powder 1 application Externally Twice a [...] every 6 hrs Taking Deep Sea Nasal [place] 0.65 % Solution 2 sprays in each nostril as needed Nasally every 2 hrs Taking Fluticasone-Salmeterol 230-21 MCG/ACT Aerosol 2 puffs Inhalation Twice a day Taking Nystatin 307105 UNIT/GM Powder 1 application Externally Twice a [...] and lower extremities, sensory exam intact.?FEMALE GENITOURINARY:?__.?MALE GENITOURINARY:?__.?PODIATRIC:?Normal.?Systems Support Specialist? .? Assessment: * Assessment: 1.?Chronic pain syndrome - G 89.4 (Primary)???2.?Polyosteoarthritis, unspecified - M15.9???3.?Other intervertebral disc degeneration, thoracolumbar region - M51.35??? Ron is 68 years old pleasa nt lady with insulin-dependent DM type II and follow-up with endocrinology, hyperlipidemia, left lower extremity DVT and she follows up with adjunct trainer, chronic kidney disease and she follows up with filter cloth maker, as the amount, degenerative disc disease/osteoarthritis and she has an upcoming surgery for total right hip replacement at [facility]. She is here today for chronic pain management Chronic pain management. Chronic pain secondary to degenerative disc disease. Prognosis: Mild to moderate Medical necessity supported by H&P, imaging and testing [place] pain treatment protocol completed. Yes Chronic opioid/pain [...] opioid misuse based on ORT. Toxicology and WHEEL BRAIDER monitoring done and will follow protocol set forth by practice. As such controlled substance use requires judicious monitoring to access patient compliance with mutually agreed upon controlled substance use agreement which has been signed by the patient and initiation of controlled substance prescribing. Therefore following state, Federal, [facility] guidelines for controlled substance testing policies. This patient has been assessed on the basis of psychometric risk tool, WHEEL BRAIDER monitoring, toxicology test results. Comorbid conditions may [...] Procedure Codes:?3078F DIAST BP < 80 MM MA4970K SYST BP LT 130 MM HG * Follow Up:?6 Weeks * * Sign off status: Completed true * Provider:?LENNIE ALFARO MD Date:?04/24 Generated for Mark weir/Grabiel/Jannieitting on:?05/16/2024 03:28 PM EST History and Physical Notes * HPI (History of Present Illness) Category Sub-Category Detail Notes Category Not es Internal Medicine Yanet is a 68-year-old female with a pmhx of T2DM, HLD, Asthma, Vitamin D deficiency is here for follow-up. She he is going to have right hip surgery on May 01, 2024 at [facility] by Dr. Ruiz. She uses a walker [...] Normal Psychiatry Normal OROPHARYNX Normal SINUSES Normal Systems Support Specialist
--- OUTSIDE RECORDS SUMMARY | 2024-05-16 15:28 | XMS_ITS | Encounter Summary ---
Author Organization [facility] Address [address] [place] [address] Care Team Providers Care Magician Helper Name Role Phone Ayan Clayton MD Primary Care Provider [phone] Encounter Details Date Type Department Care Team Description 08/24/2023 Drawer In Dobby Loom Report Medical Records [address] [place] [address] Izabel Hoang Social History Tobacco Use Types [...] on filedocumented in this encounter Care Teams Magician Helper Relationship Specialty Start Date End Date Ayan Clayton MD [address] [place] [address] [phone] PCP - General Internal Medicine 09/24/19 documented as of this encounter
--- OUTSIDE RECORDS SUMMARY | 2024-05-16 15:28 | XMS_ITS ---
Author Organization [facility] Address [address] [place] [address] Care Team Providers Care Auto Parts Handler Name Role Phone LENNIE ALFARO Primary Care Provider REASON FOR VISIT Wheelchair rx Medications Medication SIG (Take, Route, Frequency, Duration) Notes Start Date End Date Status Wheelchair - Wheelchair with legs as directed; DX: M15.9, M51.35 for 30 days 03/29/2024 Active Encounters Encounter Location Date Provider Diagnosis [facility] [address] [address] 04/15/2024 LENNIE ALFARO Plan Of Treatment Medication Medication Name Sig Start Date Stop Date Notes Wheelchair - Wheelchair with legs as directed; DX: M15.9, M51.35 for 30 days 03/29/2024 Next Appt Details Provider Name:Aide bond, 06/05/2024 10:15:00 AM, [address] [place] [address], [place], [address], Progress Notes * Yanet KINGDOB:1955 (68 yo F)Acc No.[id number]:04/15/2024 Patient:?Yanet KING :1955???Age:68 Y???Sex:Female Address:[place] [address] * Refills? Refill Wheelchair Miscellaneous, -, 1, Wheelchair with legs as directed; DX: M15.9, M51.35, 30 days, Refills=0 * true * Date:? Generated for Mark weir/Grabiel/Jannieitting on:?05/16/2024 03:28 PM EST
--- OUTSIDE RECORDS SUMMARY | 2024-05-16 15:28 | XMS_ITS | Encounter Summary ---
Author Organization [facility] Address [address] [place] [address] Care Team Providers Care Mexican Food Cook Name Role Phone Daniel Mota MD Primary Care Provider Ayan Rubalcava MD Primary Care Provider [phone] Reason for Visit * Reason Onset Date Comments radiology 02/04/2019 Encounter Details Date Type Department Care Team Description 02/04/2019 Telephone MRI - [place] [address] [place] [address] Yonis Servin PA-C radiology Social History Tobacco [...] on filedocumented in this encounter Care Teams Mexican Food Cook Relationship Specialty Start Date End Date Daniel Mota MD PCP - General Internal Medicine 10/20/16 09/23/19 Ayan Clayton MD [address] [place], [place] [phone] PCP - General Internal Medicine 09/24/19 documented as of this encounter
--- OUTSIDE RECORDS SUMMARY | 2024-05-16 15:29 | XMS_ITS | Encounter Summary ---
Author Organization [facility] Address [address] [place] [address] Care Team Providers Care Milk Deliverer Name Role Phone Daniel Mota MD Primary Care Provider Unavail able Ayan Clayton MD Primary Care Provider [phone] Encounter Details Date Type Department Care Team Description 04/23/2019 Sport Intern Report Medical Records [address] [place] [address] Bharath Block PA-C Social History Tobacco Use [...] filedocumented in this encounter Care Teams Milk Deliverer Relationship Specialty Start Date End Date Daniel Mota MD PCP - General Internal Medicine 10/20/16 09/23/19 Ayan Clayton MD [address] [place], [place] [phone] PCP - General Internal Medicine 09/24/19 documented as of this encounter
--- OUTSIDE RECORDS SUMMARY | 2024-05-16 15:29 | XMS_ITS | Encounter Summary ---
Author Organization [facility] Address [address] [place] [address] Care Team Providers Care Pesticide Use Medical Coordinator Name Role Phone Ayan Clayton MD Primary Care Provider [phone] Encounter Details Date Type Department Care Team Description 11/08/2019 Hospital Medical Records [address] [place] [address] [facility] Medical Social History Tobacco Use Types [...] on filedocumented in this encounter Care Teams Pesticide Use Medical Coordinator Relationship Specialty Start Date End Date Ayan Clayton MD [address] [place], [place] [phone] PCP - General Internal Medicine 09/24/19 documented as of this encounter
--- OUTSIDE RECORDS SUMMARY | 2024-05-16 15:29 | XMS_ITS | Encounter Summary ---
Author Organization [facility] Address [address] [place] [address] Care Team Providers Care Proposal Manager Name Role Phone Daniel Mota MD Primary Care Provider Unavail Victor Manuel Yu MD Primary Care Provider Unava ilable Daniel Mota MD Primary Care Provider Unavail Ayan Pulliam MD Primary Care Provider [phone] Victor Manuel Gonzales MD Primary Care Provider Unava ilable Reason for Visit * Reason Onset Date Comments Sinus Problem 07/30/2014 Encounter Details Date Type Department Care Team Description 07/30/2014 Telephone Adult Medicine [address] [address] Daniel Mota MD Sinus Problem Social History [...] on filedocumented in this encounter Care Teams Proposal Manager Relationship Specialty Start Date End Date Daniel Mota MD PCP - General 07/27/1994 12/22/15 Victor Manuel Gonzales MD PCP - General Internal Medicine 07/22/16 10/19/16 Daniel Mota MD PCP - General Internal Medicine 10/20/16 09/23/19 Ayan Clayton MD [address] [place], [place] [phone] PCP - General Internal Medicine 09/24/19 Victor Manuel Gonzales MD PCP - General 12/23/15 07/21/16 documented as of this encounter
--- OUTSIDE RECORDS SUMMARY | 2024-05-16 15:29 | XMS_ITS | Encounter Summary ---
Author Organization [facility] Address [address] [place] [address] Care Team Providers Care Record Tester Name Role Phone Daniel Mota MD Primary Care Provider Unavail Victor Manuel Yu MD Primary Care Provider Unava ilable Daniel Mota MD Primary Care Provider Unavail Ayan Pulliam MD Primary Care Provider [phone] Victor Manuel Gonzales MD Primary Care Provider Candida puri Encounter Details Date Type Department Care Team Description 01/26/2015 [facility] Medical Records [address] [place], [place] [phone] [place] [address] Social History Tobacco Use Types Packs/Day Years [...] on filedocumented in this encounter Care Teams Record Tester Relationship Specialty Start Date End Date Daniel Mota MD PCP - General 07/27/1994 12/22/15 Victor Manuel Gonzales MD PCP - General Internal Medicine 07/22/16 10/19/16 Daniel Mota MD PCP - General Internal Medicine 10/20/16 09/23/19 Ayan Clayton MD [address] [place] [address] PCP - General Internal Medicine 09/24/19 Victor Manuel Gonzales MD PCP - General 12/23/15 07/21/16 documented as of this encounter
--- OUTSIDE RECORDS SUMMARY | 2024-05-16 15:29 | XMS_ITS | Encounter Summary ---
Author Organization [facility] Address [address] [place] [address] Care Team Providers Care Rv Technician Name Role Phone Ayan Clayton MD Primary Care Provider [phone] Reason for Visit * Reason Comments E-prescribe Rx Request Encounter Details Date Type Department Care Team Description 01/23/2020 Refill Adult Medicine [facility] [address] [place], [place] [phone] Ayan Clayton MD [address] [place] [address] [phone] E-prescribe Rx Request Social History Tobacco Use [...] N/A Patients current insurance carrier is: Payor: [facility] MCR / Plan: ONE CARE [facility] / Product Type: HMO [id number] documented in this encounter Plan of Treatment Not on file documented as of this encounter Visit Diagnoses Not on filedocumented in this encounter Care Teams Rv Technician Relationship Specialty Start Date End Date Ayan Clayton MD [address] [place] [address] PCP - General Internal Medicine 09/24/19 documented as of this encounter
--- OUTSIDE RECORDS SUMMARY | 2024-05-16 15:29 | XMS_ITS | Encounter Summary ---
Author Organization [facility] Address [address] [place] [address] Care Team Providers Care Brim Edge Trimmer Name Role Phone Ayan Clayton MD Primary Care Provider [phone] Reason for Visit * Reason Comments E-prescribe Rx Request Encounter Details Date Type Department Care Team Description 02/24/2020 Refill Adult Medicine [facility] [address] [place], [place] [phone] Ayan Clayton MD [address] [place] [address] [phone] E-prescribe Rx Request Social History Tobacco Use [...] ?? Patients current insurance carrier is: Payor: [employer] MCR / Plan: ONE CARE [facility] / Product Type: HMO [id number] ?? 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
--- OUTSIDE RECORDS SUMMARY | 2024-05-16 15:29 | XMS_ITS | Encounter Summary ---
Author Organization Formerly [facility] Address [address] [place] [address] Care Team Providers Care Wire Spiral Binder Name Role Phone Ayan Clayton MD Primary Care Provider [phone] Reason for Visit * Reason Onset Date Comments DME Request 10/15/2019 [facility] Encounter Details Date Type Department Care Team Description 10/15/2019 Telephone Adult Medicine [facility] [address] [place] [address] [phone] Ayan Clayton MD [address] [place] [address] [phone] DME Request ([facility]) Social History Tobacco Use [...] - 10/23/2019 11:56 AM EDT Keyla from [id number] called in looking for an update would like a call back. Keyla direct line is [phone]. * Telephone Encounter - Whitley Wright - 10/15/2019 5:48 PM EDT [facility]. documented in this encounter Plan of Treatment Not on file documented as of this encounter Visit Diagnoses Not on filedocumented in this encounter Care Teams Wire Spiral Binder Relationship Specialty Start Date End Date Ayan Clayton MD [address] [place] [address] PCP - General Internal Medicine 09/24/19 documented as of this encounter
--- OUTSIDE RECORDS SUMMARY | 2024-05-16 15:29 | XMS_ITS | Encounter Summary ---
Author Organization [facility] Address [address] [place] [address] Care Team Providers Care Cloud Developer Name Role Phone Daniel Mota MD Primary Care Provider Unavail Victor Manuel Yu MD Primary Care Provider Unava ilable Daniel Mota MD Primary Care Provider Unavail Ayan Pulliam MD Primary Care Provider [phone] Victor Manuel Gonzales MD Primary Care Provider Unava ilmaximino Encounter Details Date Type Department Care Team Description 05/27/2008 [facility] Medical Records [address] [place] [address] Laurent Harrington MD Social History Tobacco Use [...] filedocumented in this encounter Care Teams Cloud Developer Relationship Specialty Start Date End Date Daniel Mota MD PCP - General 07/27/1994 12/22/15 Victor Manuel Gonzales MD PCP - General Internal Medicine 07/22/16 10/19/16 Daniel Mota MD PCP - General Internal Medicine 10/20/16 09/23/19 Ayan Clayton MD [address] [place] [address] PCP - General Internal Medicine 09/24/19 Victor Manuel Gonzales MD PCP - General 12/23/15 07/21/16 documented as of this encounter
--- OUTSIDE RECORDS SUMMARY | 2024-05-16 15:29 | XMS_ITS | Encounter Summary ---
Author Organization [facility] Address [address] [place] [address] Care Team Providers Care Conservation Or Heritage Architect Name Role Phone Ayan Clayton MD Primary Care Provider [phone] Reason for Visit * Reason Onset Date Comments Provider Call Back 03/18/2020 Encounter Details Date Type Department Care Team Description 03/18/2020 Telephone Adult Medicine [facility] [address] [place] [address] Ayan Clayton MD [address] [place] [address] Provider Call Back Social History Tobacco Use [...] callers name? Angie Callers relationship to patient? THEATRICAL DRESSER If person calling is not the patient [...] on filedocumented in this encounter Care Teams Conservation Or Heritage Architect Relationship Specialty Start Date End Date Ayan Clayton MD [address] [place] [address] PCP - General Internal Medicine 09/24/19 documented as of this encounter
--- OUTSIDE RECORDS SUMMARY | 2024-05-16 15:29 | XMS_ITS | Continuity of Care Document ---
Author Organization [facility] Address [address] [place] [address] Care Team Providers Care Dry Drug Worker Name Role Phone [facility] GARETT ALFARO Primary Care Provider Assessment No assessment recorded. Plan of Treatment Reminders Order Date Submit Date Provider Last Modified By Organization Details Last Modified Time Details Appointments Acute Rounding Visit 2024 02:46P Jayy Armenta NP Not available Not available Not available Lab None recorded. Referral None recorded. Procedures None recorded. Surgeries None recorded. Imaging None recorded. Medication Orders None recorded. Patient TargetsNo targets recorded. Patient InstructionsNo instructions recorded. Reason for Referral None Reported. Problems Name Problem SNOMED Code Status Onset Date Resolution Date Notes Provider Name and Address Organization Details Recorded Time Wound of skin 698226209 Active 2024 right hip surgical wound MICHAEL ADAIR NP [address] [facility], [address], [place], [address], [facility] [employer] [facility] 5 14:01:04 Total replacement of right hip joint Active 2024 MICHAEL ADAIR NP [address] [facility] [facility], [address], [place], [address], [facility] [employer] 5 14:02:07 Hyperlipide tayler 46153716 Active 2024 MICHAEL ADAIR NP [address] [facility] [facility], [address], [place], [address], [facility] [employer] 5 14:07:43 Gastroesoph ageal reflux disease without esophagitis 738169901 Active 2024 MICHAEL ADAIR NP [address] [facility], [address], [place], [address], [facility] [employer] 5 14:07:53 Chronic obstructive pulmonary disease 21111365 Active 2024 MICHAEL ADAIR, KALE [address] , [address], [place], [address], [facility] [employer] 5 14:08:17 Chronic pain 93305331 Active 2024 MICHAEL ADAIR NP [address] [facility] [facility], [address], [place], [address], [facility] [employer] 5 14:08:31 Mixed anxiety and depressive disorder 539720003 Active 2024 MICHAEL ADAIR NP [address] , [address], [place], [address], [facility] [employer] 5 14:08:38 Osteoarthri tis 965886995 Active 2024 MICHAEL ADAIR NP [address] [facility] [facility], [address], [place], [address], [employer] 5 14:12:21 Problem Notes None recorded. Medical Equipment None Reported. Allergies Allergen ID Allergen Name Allergen Category Reaction Reaction Severity Criticality Documentation Date Start Date Code Code System Note Provider Name and Address Organization Details Recorded Time 48374 Substance with sulfonami de structure and antibacte rial mechanism of action (substanc e) medicatio n Not available Not available high 05/04/20242005 27611 8003 SNOMED swell ing and diffi culty breat devonte Not Available Not Available Not Available 27727 metformin medicatio n diarrhea Not available Not available 05/04/20242016 6809 RxNorm Not Available Not Available Not Available 32904 semagluti de medicatio n Not available Not [...] Available Not Avai lable Vitals Date Recorded Body height Body mass index (BMI) Body weight Heart rate Respiratory rate Body temperature Oxygen saturation Oxygen saturation in Arterial blood by Pulse oximetry Systolic blood pressure Diastolic blood pressure Provider Name and Address Organization Details Last Updated DateTime 5 149.86 cm 25.7 kg/m2 28633.2 3 g 72 /min 18 /min 97.8 [degF] 96 % 96 % 142 mm[Hg] 78 mm[Hg] Sanaz Armenta NP [address] [facility], [address], [place], [address], [employer] [facility] 5 12:05:39 Social History Question Answer Notes LastModified by Organizat ion Details LastModified Time Tobacco Smoking Status Former Smoker [id number], 3 ppd Vida Herrmann MD [address] [facility] [facility], [address], [place], [address], [employer] [facility] 05/06/2024 22:16:45 Do You Have An [...] Do You Have A Medical Power Of Marketing Budget Analyst? Yes Information not available 05/06/2024 What Was [...] Immunizations Vaccine Type Date Status Note Provider Nam e and Address Organization Details Recorded Time Tdap 2 completed Theresa Parveen [facility] 05/08/2024 16:05:46 Tdap 3 completed Theresa Parveen [facility] 05/08/2024 16:05:54 Td(adult) unspecified formulation 3 completed Theresa Praveen [facility] 05/08/2024 16:06:09 Pneumococcal conjugate PCV 13 1 completed Theresa Parveen [facility] 05/08/2024 16:06:29 pneumococcal polysaccharide PPV23 5 completed Theresa Parveen [facility] 05/08/2024 16:06:45 influenza, unspecified formulation 3 completed Theresa Parveen [facility] 05/08/2024 16:07:03 influenza, unspecified formulation 4 completed Theresa Parveen [facility] 05/08/2024 16:07:17 SARS-COV-2 (COVID-19) vaccine, UNSPECIFIED 1 completed Theresa Parveen [facility] 05/08/2024 16:07:38 SARS-COV-2 (COVID-19) vaccine, UNSPECIFIED 1 completed Theresa Parveen [facility] 05/08/2024 16:07:47 SARS-COV-2 (COVID-19) vaccine, UNSPECIFIED 2 completed Theresa Parveen [facility] 05/08/2024 16:07:59 SARS-COV-2 (COVID-19) vaccine, UNSPECIFIED 2 completed Theresa Saini [facility] 05/08/2024 16:08:09 SARS-COV-2 (COVID-19) vaccine, UNSPECIFIED 3 completed Theresa Saini [facility] 05/08/2024 16:08:20 zoster, unspecified formulation 9 completed Theresa [facility] 05/08/2024 16:08:38 zoster, unspecified formulation 0 completed Theresa [facility] 05/08/2024 16:08:46 Past Encounters Encounter ID Performer Location Encounter Start Date Encounter Closed Date Diagnosis/Indication Diagnosis SNOMED-CT Code Diagnosis ICD10 Code Diagnosis Note [id number] MICHAEL ADAIR NP [address] [address] 05/04/2024 12:51:16 05/07/2024 13:49:18 Wound of skin 066505195 T14.8XXA monitor surgical incision for any signs of infectionc hange dressing as appropriat efollowup with ortho as planned Chronic pain 48989538 G8 9.29 lido patchtizan adine 4 mg prndiclofe nac gel bidms contin 15 mg hsoxycodon e 10 mg tid Chronic ob structive pulmonary disease 92375586 J44.9 combivent prnzyrtec 10 mg dailymonit or resp status Gastroesop hageal reflux disease without esophagitis 850085349 K21.9 omeprazole 20 mg dailybicar b 650 mg bid Hyperlipidemia 80826789 E78.5 atrovastat in 20 mg daily Mixed anxi ety and depressive disorder 809579297 F41.8 cymbalta 30 mg dailypsych prn Osteoarthritis 758730490 M19.90 lido patchtizan adine 4 mg prndiclofe nac gel bidms contin 15 mg hsoxycodon e 10 mg tid [id number] Vida Herrmann MD [address] [address] 05/06/2024 18:09:41 05/16/2024 14:57:48 Chronic pain 71292487 G89.29 Meds as above.Will wean off prn oxy prior to d/c. Osteoarthritis 235591030 M15.0 Z96.643 S/P LTHR in 08/2023 and [...] as planned. Chronic ob structive pulmonary disease 38857916 J43.8 At baseline.C ontinue cetirizine 10 mg qd and combivent 2 puffs q 4 hrs prn.Monito r resp status Gastroesop hageal reflux disease without esophagitis 023769457 K21.9 No current sxs.Contin ue omeprazole 20 mg qd and sodium bicarb 650 mg BIDMonitor GI sxs. Hyperlipidemia 67538326 E78.49 Continue atorvastat in 20 mg qdMonitor labs as outpt. Mixed anxi ety and depressive disorder 722200205 F41.8 Mood good tonight.Co ntinue cymbalta 30 mg qdMonitor mood.Psych consult prn [id number] Sanaz Armenta NP [address] [address] 05/09/2024 12:04:48 05/10/2024 13:24:20 Osteoarthritis 715918010 M15.0 Z96.643 S/P LTHR in 08/2023 and [...] /U with ortho as planned. Chronic pain 58415392 G8 9.29 Meds as above.Will wean off prn oxy prior to d/c. Chronic ob structive pulmonary disease 15833974 J43.8 Continueco mbivent prnzyrtec 10 mg dailymonit or resp status Gastroesop hageal reflux disease without esophagitis 606349653 K21.9 contomepra zole 20 mg dailybicar b 650 mg bid Hyperlipidemia 55021942 E78.5 contatorva statin 20 mg daily Mixed anxi ety and depressive disorder 837463295 F41.8 contcymbal ta 30 mg dailypsych prn Wound of skin 277117321 T14.8XXA sp right hip arthroplas ty with dr annabelle mobley surgical incision for any signs of infectionc hange dressing as appropriat efollowup with ortho as planned Infection caused by Norovirus 800882390 A08.11 pt with norovirus positive stool testsympto [...] by Organization Details LastModified Time None Recorded Payers Encounter Date Sequence Insurance Name Policy Number Policy Toribio Covered Member ID Toribio Member ID Guarantor Name 05/09/2024 1 [facility] - DOS ON OR AFTER 2022 - MEDICARE [place]VANTAGE [place] (MEDICARE REPLACEMENT/ADV ANTAGE - PPO) Yanet King [id number] Yanet King Notes Date Note Type Note Provider Name and Address Organization Details Recorded Time 05/09/2024 text/html This is a 68 yo [...] was recommended.Transferr ed here on 05/03. Sanaz Armenta, KALE [address] [facility] [facility], [address], [place], [address], [facility] - [employer] 05/09/2024 13:44:40 OBGyn Episode No OBEpisode recorded.
--- OUTSIDE RECORDS SUMMARY | 2024-05-16 15:29 | XMS_ITS | Encounter Summary ---
Author Organization [facility] Address [address] [place] [address] Care Team Providers Care Space And Storage Clerk Name Role Phone Daniel Mota MD Primary Care Provider Unavail Victor Manuel Yu MD Primary Care Provider Unava ilable Daniel Mota MD Primary Care Provider Unavail Ayan Pulliam MD Primary Care Provider [phone] Victor Manuel Gonzales MD Primary Care Provider Unava ilmaximino Encounter Details Date Type Department Care Team Description 05/19/2014 [facility] Medical Records [address] [place] [address] Antoinette Quevedo MD [address] [place] [address] Social History Tobacco Use Types Packs/Day Years [...] on filedocumented in this encounter Care Teams Space And Storage Clerk Relationship Specialty Start Date End Date Daniel Mota MD PCP - General 07/27/1994 12/22/15 Victor Manuel Gonzales MD PCP - General Internal Medicine 07/22/16 10/19/16 Daniel Mota MD PCP - General Internal Medicine 10/20/16 09/23/19 Ayan Clayton MD [address] [place] [address] PCP - General Internal Medicine 09/24/19 Victor Manuel Gonzales MD PCP - General 12/23/15 07/21/16 documented as of this encounter
--- OUTSIDE RECORDS SUMMARY | 2024-05-16 15:29 | XMS_ITS | Encounter Summary ---
Author Organization [facility] Address [address] [place] [address] Care Team Providers Care Rn Intensive Care Unit Name Role Phone Daniel Mota MD Primary Care Provider Unavail Victor Manuel Yu MD Primary Care Provider Unava ilable Daniel Mota MD Primary Care Provider Unavail Ayan Pulliam MD Primary Care Provider [phone] Victor Manuel Gonzales MD Primary Care Provider Justinava jaxson Encounter Details Date Type Department Care Team Description 01/29/2015 [facility] Medical Records [address] [place] [address] Austin Dorado Social History Tobacco Use Types [...] filedocumented in this encounter Care Teams Rn Intensive Care Unit Relationship Specialty Start Date End Date Daniel Mota MD PCP - General 07/27/1994 12/22/15 Victor Manuel Gonzales MD PCP - General Internal Medicine 07/22/16 10/19/16 Daniel Mota MD PCP - General Internal Medicine 10/20/16 09/23/19 Ayan Clayton MD [address] [place] [address] PCP - General Internal Medicine 09/24/19 Victor Manuel Gonzales MD PCP - General 12/23/15 07/21/16 documented as of this encounter
--- OUTSIDE RECORDS SUMMARY | 2024-05-16 15:29 | XMS_ITS | Encounter Summary ---
Author Organization [facility] Address [address] [place] [address] Care Team Providers Care Master Dyer Name Role Phone Ayan Clayton MD Primary Care Provider [phone] Reason for Visit * Reason Onset Date Comments Faxed Order 12/06/2019 Encounter Details Date Type Department Care Team Description 12/06/[address] [facility] [address] [place] [address] [phone] Ayan Clayton MD [address] [place] [address] [phone] Faxed Order Social History Tobacco Use Types [...] pass this call to me at EX [phone] Thank you * Telephone Encounter - Mela Benton R.N. - 12/09/2019 10:21 AM EDT We need a face to face for VNA. Last visit 11/20 * Telephone Encounter - Noemi Sanders - 12/09/2019 10:10 AM EDT [facility] needs face to face faxed to him today Phone [phone] * Telephone Encounter - Tara Roe - 12/06/2019 2:16 PM EDT FAXED IN DR [facility]ALAN[employer]ATURE AND TO BE FAXED BACK TO [phone] documented in this encounter Plan of Treatment Not on file documented as of this encounter Visit Diagnoses Not on filedocumented in this encounter Care Teams Master Dyer Relationship Specialty Start Date End Date Ayan Clayton MD [address] [place] [address] PCP - General Internal Medicine 09/24/19 documented as of this encounter
--- OUTSIDE RECORDS SUMMARY | 2024-05-16 15:29 | XMS_ITS | Encounter Summary ---
Author Organization [facility] Address [address] [place] [address] Care Team Providers Care Supervisor Metal Cans Name Role Phone Daniel Mota MD Primary Care Provider Unavail able Ayan Clayton MD Primary Care Provider [phone] Encounter Details Date Type Department Care Team Description 03/07/2019 [employer] Report Medical Records [address] Social History Tobacco Use Types Packs/Day [...] filedocumented in this encounter Care Teams Supervisor Metal Cans Relationship Specialty Start Date End Date Daniel Mota MD PCP - General Internal Medicine 10/20/16 09/23/19 Ayan Clayton MD [address] [place] [address] PCP - General Internal Medicine 09/24/19 documented as of this encounter
--- OUTSIDE RECORDS SUMMARY | 2024-05-16 15:29 | XMS_ITS | Encounter Summary ---
Author Organization [facility] Address [address] [place] [address] Care Team Providers Care Clerk Of Superior Court Name Role Phone Daniel Mota MD Primary Care Provider Ayan Rubalcava MD Primary Care Provider [phone] Reason for Visit * Reason Comments E-prescribe Rx Request Encounter Details Date Type Department Care Team Description 09/11/2019 Refill Pulmonology - [place] [address] [facility] [address] [place] [phone] Carlos Hurley MD [address] [facility] [address] [place] [phone] E-prescribe Rx Request Social History Tobacco Use [...] asthma documented in this encounter Care Teams Clerk Of Superior Court Relationship Specialty Start Date End Date Daniel Mota MD PCP - General Internal Medicine 10/20/16 09/23/19 Ayan Clayton MD [address] [place] [address] PCP - General Internal Medicine 09/24/19 documented as of this encounter
--- OUTSIDE RECORDS SUMMARY | 2024-05-16 15:29 | XMS_ITS | Encounter Summary ---
Author Organization [facility] Address [address] [place] [address] Care Team Providers Care Care Coordinator Name Role Phone Ayan Clayton MD Primary Care Provider [phone] Reason for Visit * Reason Onset Date Comments Faxed Order 11/19/2019 allied Encounter Details Date Type Department Care Team Description 11/19/2019 Telephone Adult Medicine [facility] [address] [place], [place] [phone] Ayan Clayton MD [address] [place] [address] [phone] Faxed Order (allied) Social History Tobacco Use [...] filedocumented in this encounter Care Teams Care Coordinator Relationship Specialty Start Date End Date Ayan Clayton MD [address] [place] [address] PCP - General Internal Medicine 09/24/19 documented as of this encounter
--- OUTSIDE RECORDS SUMMARY | 2024-05-16 15:29 | XMS_ITS | Encounter Summary ---
Author Organization [facility] Address [address] [place] [address] Care Team Providers Care Senior Ui Ux Developer Name Role Phone Ayan Clayton MD Primary Care Provider [phone] Reason for Visit * Reason Comments E-prescribe Rx Request Encounter Details Date Type Department Care Team Description 10/24/2019 [facility] - [place] [address] [facility] [address] [place] [phone] Torrey Moreno MD [address] [place] [address] [address] [place] [address] E-prescribe Rx Request Social History Tobacco Use [...] gastrectomy documented in this encounter Care Teams Senior Ui Ux Developer Relationship Specialty Start Date End Date Ayan Clayton MD [address] [place] [address] [phone] PCP - General Internal Medicine 09/24/19 documented as of this encounter
--- OUTSIDE RECORDS SUMMARY | 2024-05-16 15:29 | XMS_ITS | Encounter Summary ---
Author Organization [facility] Address [address] [place] [address] Care Team Providers Care Professor Of Counseling Name Role Phone Daniel Mota MD Primary Care Provider Unavail Victor Manuel Yu MD Primary Care Provider Unava ilable Daniel Mota MD Primary Care Provider Unavail Ayan Pulliam MD Primary Care Provider [phone] Victor Manuel Gonzales MD Primary Care Provider Unava ilable Reason for Visit * Reason Onset Date Comments Faxed Refill 08/04/2014 Encounter Details Date Type Department Care Team Description 08/04/2014 Refill Adult Medicine [facility] [address] [place] [address] Daniel Mota MD Faxed Refill Social History [...] NO Patients current insurance carrier is: Payor: [employer] FFS / Plan: [email or web address] PLAN / Product Type: MEDICAID RISK documented in this encounter Plan of Treatment Not on file documented as of this encounter Visit Diagnoses Not on filedocumented in this encounter Care Teams Professor Of Counseling Relationship Specialty Start Date End Date Daniel Mota MD PCP - General 07/27/1994 12/22/15 Victor Manuel Gonzales MD PCP - General Internal Medicine 07/22/16 10/19/16 Daniel Mota MD PCP - General Internal Medicine 10/20/16 09/23/19 Ayan Clayton MD [address] [place] [address] PCP - General Internal Medicine 09/24/19 Victor Manuel Gonzales MD PCP - General 12/23/15 07/21/16 documented as of this encounter
--- OUTSIDE RECORDS SUMMARY | 2024-05-16 15:29 | XMS_ITS | Encounter Summary ---
Author Organization [facility] Address [address] [place] [address] Care Team Providers Care Certified Nursing Assistant Name Role Phone Daniel Mota MD Primary Care Provider Unavail able Ayan Clayton MD Primary Care Provider [phone] Encounter Details Date Type Department Care Team Description 04/11/2019 Release of Information Medical Records [address] [place] [id number] Abstract, Provider Social History Tobacco Use Types [...] filedocumented in this encounter Care Teams Certified Nursing Assistant Relationship Specialty Start Date End Date Daniel Mota MD PCP - General Internal Medicine 10/20/16 09/23/19 Ayan Clayton MD [address] [place] [address] PCP - General Internal Medicine 09/24/19 documented as of this encounter
--- OUTSIDE RECORDS SUMMARY | 2024-05-16 15:29 | XMS_ITS | Encounter Summary ---
Author Organization [facility] Address [address] [place] [address] Care Team Providers Care Ball Mill Operator Name Role Phone Ayan Clayton MD Primary Care Provider [phone] Encounter Details Date Type Department Care Team Description 11/05/2019 Hospital Medical Records [address] [place] [address] [facility] Medical Social History Tobacco Use [...] filedocumented in this encounter Care Teams Ball Mill Operator Relationship Specialty Start Date End Date Ayan Clayton MD [address] [place], [place] [phone] PCP - General Internal Medicine 09/24/19 documented as of this encounter
--- OUTSIDE RECORDS SUMMARY | 2024-05-16 15:29 | XMS_ITS | Encounter Summary ---
Author Organization [facility] Address [address] [place] [address] Care Team Providers Care Production Team Leader Name Role Phone Ayan Clayton MD Primary Care Provider [phone] Reason for Visit * Reason Onset Date Comments Information Needed 10/10/2019 Prior Authorization 10/10/2019 Encounter Details Date Type Department Care Team Description 10/10/2019 Telephone Pulmonology - [place] 175 [facility] [address] [place] [address] Carlos Hurley MD 175 [facility] [address] [place] [address] Information Needed; Prior Authorization Social [...] on filedocumented in this encounter Care Teams Production Team Leader Relationship Specialty Start Date End Date Ayan Clayton MD [address] [place] [address] PCP - General Internal Medicine 09/24/19 documented as of this encounter
--- OUTSIDE RECORDS SUMMARY | 2024-05-16 15:29 | XMS_ITS | Patient Health Record ---
Author Organization [facility] Address [address] [facility] [address] [place] [address] Care Team Providers Care Cath Lab Nurse Name Role Phone Ayan Clayton Primary Care Provider Unavailabl e Allergies Allergen (clinical drug ingredient) Drug/Non Drug [...] Problem Status W/U Status Risk Notes Problem 67627956 Other chronic pain (G89.29) Active confirmed Problem 650654805 Other hammer toe(s) (acquired), right foot (M20.41) Active confirmed Problem 62330109 Other hammer toe(s) (acquired), left foot (M20.42) Active confirmed Problem 18560937 Type 2 diabetes mellitus with diabetic polyneuropathy , without long-term current use of insulin (E11.42) Active confirmed Problem [id number] Arthritis of ankle, right (M19.071) Active confirmed Problem 320293675 Ankle arthritis (M19.079) Active confirmed Problem [id number] Arthritis of ankle, left (M19.072) Active confirmed Plan Of Treatment Pending Test Test Name Order Date X ray : Ankle, right, 3 views 07/22/2022 X ray : Foot, left 3v 04/19/2022 DRAIN/INJECT, INTERMEDIATE JOINT/BURSA 0 04/19/2022 DRAIN/INJECT, INTERMEDIATE JOINT/BURSA 1 DRAIN/INJECT, INTERMEDIATE JOINT/BURSA 0 10/19/2021 DRAIN/INJECT, INTERMEDIATE JOINT/BURSA 0 07/20/2021 DRAIN/INJECT, INTERMEDIATE JOINT/BURSA 1 DRAIN/INJECT, INTERMEDIATE JOINT/BURSA 0 04/21/2021 DRAIN/INJECT, INTERMEDIATE JOINT/BURSA 1 04/01/2022 DRAIN/INJECT, INTERMEDIATE JOINT/BURSA 0 10/28/2022 DRAIN/INJECT, INTERMEDIATE JOINT/BURSA 0 07/22/2022 Medications Administered Medication Instructions Date of Administration [...]
--- OUTSIDE RECORDS SUMMARY | 2024-05-16 15:29 | XMS_ITS | Encounter Summary ---
Author Organization [facility] Address [address] [place] [address] Care Team Providers Care Wire Steward Name Role Phone Daniel Mota MD Primary Care Provider Unavail able Ayan Clayton MD Primary Care Provider [phone] Encounter Details Date Type Department Care Team Description 04/10/2019 Emblem Drawer In Report Medical Records [address] [place] [address] Ta Garcia MD Social History Tobacco Use [...] filedocumented in this encounter Care Teams Wire Steward Relationship Specialty Start Date End Date Daniel Mota MD PCP - General Internal Medicine 10/20/16 09/23/19 Ayan Clayton MD [address] [place] [address] [phone] PCP - General Internal Medicine 09/24/19 documented as of this encounter
--- OUTSIDE RECORDS SUMMARY | 2024-05-16 15:30 | XMS_ITS | Encounter Summary ---
Author Organization [facility] Address [address] [place] [address] Care Team Providers Care Instructor Weaving Name Role Phone Ayan Clayton MD Primary Care Provider [phone] Encounter Details Date Type Department Care Team Description 01/23/2020 Funeral Director/Embalmer Report Medical Records [address] [place] [address] [facility] Medical Social History Tobacco [...] filedocumented in this encounter Care Teams Instructor Weaving Relationship Specialty Start Date End Date Ayan Clayton MD [address] [place], [place] [phone] PCP - General Internal Medicine 09/24/19 documented as of this encounter
--- OUTSIDE RECORDS SUMMARY | 2024-05-16 15:30 | XMS_ITS | Encounter Summary ---
Author Organization [facility] Address [address] [place] [address] Care Team Providers Care Inspector Elevators Name Role Phone Ayan Clayton MD Primary Care Provider [phone] Reason for Visit * Reason Onset Date Comments Faxed Order 02/06/2020 Encounter Details Date Type Department Care Team Description 02/06/2020 Telephone Adult Medicine [address] [phone] Ayan Clayton MD [address] [place] [phone] Faxed Order Social History Tobacco Use Types [...] 02/06/2020 2:07 PM EST Faxed order from [facility] documented in this encounter Plan of Treatment Not on file documented as of this encounter Visit Diagnoses Not on filedocumented in this encounter Care Teams Inspector Elevators Relationship Specialty Start Date End Date Ayan Clayton MD [address] [place] [address] PCP - General Internal Medicine 09/24/19 documented as of this encounter
--- OUTSIDE RECORDS SUMMARY | 2024-05-16 15:30 | XMS_ITS | Encounter Summary ---
Author Organization [facility] Address [address] [place] [address] Care Team Providers Care Nonprofit Fundraiser Name Role Phone Daniel Mota MD Primary Care Provider Unavail able Ayan Clayton MD Primary Care Provider Encounter Details Date Type Department Care Team Description 01/30/2017 Release of Information Medical Records [address] [place] [address] Abstract, Provider Social History Tobacco Use Types [...] on filedocumented in this encounter Care Teams Nonprofit Fundraiser Relationship Specialty Start Date End Date Daniel Mota MD PCP - General Internal Medicine 10/20/16 09/23/19 Ayan Clayton MD [address] [place] [address] [phone] PCP - General Internal Medicine 09/24/19 documented as of this encounter
--- OUTSIDE RECORDS SUMMARY | 2024-05-16 15:30 | XMS_ITS | Encounter Summary ---
Author Organization [facility] Address [address] [place] [address] Care Team Providers Care Parts Chaser Name Role Phone Ayan Clayton MD Primary Care Provider [phone] Encounter Details Date Type Department Care Team Description 07/24/2020 Machine Room Operator Report Medical Records [address] [place] [id number] [facility] Social History Tobacco Use Types Packs/Day [...] on filedocumented in this encounter Care Teams Parts Chaser Relationship Specialty Start Date End Date Ayan Clayton MD [address] [place], [place] [phone] PCP - General Internal Medicine 09/24/19 documented as of this encounter
--- OUTSIDE RECORDS SUMMARY | 2024-05-16 15:30 | XMS_ITS | Encounter Summary ---
Author Organization [facility] Address [address] [place] [address] Care Team Providers Care Churn Tender Name Role Phone Ayan Clayton MD Primary Care Provider [phone] Reason for Visit * Reason Onset Date Comments Faxed Order 01/28/2020 Encounter Details Date Type Department Care Team Description 01/28/2020 Telephone Adult Medicine [facility] [address] [place] [address] [phone] Ayan Clayton MD [address] [place] [address] [phone] Faxed Order Social History Tobacco Use Types [...] on filedocumented in this encounter Care Teams Churn Tender Relationship Specialty Start Date End Date Ayan Clayton MD [address] [place] [address] PCP - General Internal Medicine 09/24/19 documented as of this encounter
--- OUTSIDE RECORDS SUMMARY | 2024-05-16 15:30 | XMS_ITS | Encounter Summary ---
Author Organization [facility] Address [address] [place] [address] Care Team Providers Care Protective Services Social Worker Name Role Phone Daniel Mota MD Primary Care Provider Unavail [facility] Ayan Clayton MD Primary Care Provider [phone] Encounter Details Date Type Department Care Team Description 03/03/2017 Glove Cutter Report Medical Records [address] [place] [address] Lida Renae PA-C [address] [place] [address] Social History Tobacco Use Types Packs/Day [...] on filedocumented in this encounter Care Teams Protective Services Social Worker Relationship Specialty Start Date End Date Daniel Mota MD PCP - General Internal Medicine 10/20/16 09/23/19 Ayan Clayton MD [address] [place] [address] PCP - General Internal Medicine 09/24/19 documented as of this encounter
--- OUTSIDE RECORDS SUMMARY | 2024-05-16 15:30 | XMS_ITS | Encounter Summary ---
Author Organization [facility] Address [address] [place] [address] Care Team Providers Care Grounds And Nursery Specialist Name Role Phone Niels Retana MD Primary Care Provider [phone] Encounter Details Date Type Department Care Team (Late st Contact Info) Description 05/08/2024 Lab Requisition [facility] - Main Lab 299 [facility] [place] [address] Niels Retana MD 38 [facility] [address] [place], [address] Diarrhea, unspecified Social History Tobacco Use Types Packs/Day Years Used Date Smoking Tobacco: Former Cigarettes 4 45 0 03/27/1962 - 03/27/2007 Smokeless Tobacco: Never Alcohol Use Standard Drinks/Week Comments No 0 (1 standard drink = 0.6 oz pur e alcohol) Comments Unknown Sex and Gender Information Value Date Recorded Sex Assigned at Not on file Legal Sex Female 4:09 AM EST Gender Identity Not on file Sexual Orientation Not on file documented as of this encounter Plan of Treatment Upcoming Encounters Date Type Department Care Team (Late st Contact Info) Description 06/12/2024 8:50 AM EDT Office Visit Pulmonol - [place] [address] [facility] [address] [place] [address] Jil Freeman NP [address] [place] [address] 08/30/2024 10:00 AM EDT Appointment Radiology Department - [address] [phone] 12/05/2024 3:45 PM EDT Office Visit Nephrology - [address] [phone] Vgea Navarro MD 1983 [facility] [address] [place] [phone] 02/04/2025 9:00 AM EST Office Visit Bariatric Surgery - [place] [address] [phone] Torrey Moreno MD [address] [address] documented as of this encounter Procedures Procedure Name Priority Date/Time Associated Diagnosis Comments GASTROINTESTINAL PATHOGENS BY PCR Routine 05/08/2024 6:00 AM EST Diarrhea, unspecified CLOSTRIDIUM DIFFICILE TOXIN Routine 05/08/2024 6:00 AM EST Diarrhea, unspecified documented in this encounter Results * Clostridium difficile toxin (05/08/2024 6:00 AM EST) Clostridium difficile GDH Antigen Negative Negative 05/08/2024 12:02 PM EST [facility] C difficile Toxins A+B, EIA Negative Negative 05/08/2024 12:02 PM EST [facility] Comment:NEGATIVE FOR TOXIN P RODUCING CLOSTRIDIOIDES DIFFICILE, NO ADDITIONAL TESTING IS NECESSARY. Stool Rectum structure / Unknown 05/08/2024 6:00 AM EST 05/08/2024 11:43 AM EST us Niels Retana MD LAB MICROBIOLOGY - GENERAL ORDER CHELA Final Result [facility] [address] [place] [address], * (ABNORMAL) Gastrointestinal pathogens molecular study (05/08/2024 6:00 AM EST) Campylobacter Detection by PCR Not Detected Not Detected LAB MICROBIOLOGY METHOD 5 12:46 PM EST [facility] Plesiomonas shigelloides Detection by PCR Not Detected Not Detected LAB MICROBIOLOGY METHOD 5 12:46 PM EST [facility] Salmonella Detection by PCR Not Detected Not Detected LAB MICROBIOLOGY METHOD 5 12:46 PM EST [facility] Vibrio Detection by PCR Not Detected Not Detected LAB MICROBIOLOGY METHOD 5 12:46 PM EST [facility] Vibrio cholerae Detection by PCR Not Detected Not Detected LAB MICROBIOLOGY METHOD 5 12:46 PM EST [facility] Yersinia enterocolitica Detection by PCR Not Detected Not Detected LAB MICROBIOLOGY METHOD 5 12:46 PM EST [facility] Enteroaggregative E coli EAEC Detection by PCR Not Detected Not Detected LAB MICROBIOLOGY METHOD 5 12:46 PM EST [facility] Enteropathogenic E coli EPEC Detection Not Detected Not Detected LAB MICROBIOLOGY METHOD 5 12:46 PM EST [facility] Enterotoxigenic E coli ETEC LTST Detection Not Detected Not Detected LAB MICROBIOLOGY METHOD 5 12:46 PM EST [facility] Shiga-like toxin producing E coli STEC STX1 STX2 Det Not Detected Not Detected LAB MICROBIOLOGY METHOD 5 12:46 PM EST [facility] Shigella Enteroinvasive E coli EIEC Detection Not Detected Not Detected LAB MICROBIOLOGY METHOD 5 12:46 PM [facility] Cryptosporidium Detection by PCR Not Detected Not Detected LAB MICROBIOLOGY METHOD 5 12:46 PM [facility] Cyclospora cayetanensis Detection by PCR Not Detected Not Detected LAB MICROBIOLOGY METHOD 5 12:46 PM [facility] Entamoeba histolytica Detection by PCR Not Detected Not Detected LAB MICROBIOLOGY METHOD 5 12:46 PM [facility] Giardia lamblia Detection by PCR Not Detected Not Detected LAB MICROBIOLOGY METHOD 5 12:46 PM [facility] Adenovirus F 40 41 Detection by PCR Not Detected Not Detected LAB MICROBIOLOGY METHOD 5 12:46 PM [facility] Astrovirus Detection by PCR Not Detected Not Detected LAB MICROBIOLOGY METHOD 5 12:46 PM [facility] Norovirus GI GII Detection by PCR Detected(A ) Not Detected LAB MICROBIOLOGY METHOD 5 12:46 PM [facility] Sapovirus Detection by PCR Not Detected Not Detected LAB MICROBIOLOGY METHOD 5 12:46 PM [facility] Rotavirus A Detection by PCR Not Detected Not Detected LAB MICROBIOLOGY METHOD 5 12:46 PM [facility] Stool Rectum structure / Unknown 05/08/2024 6:00 AM EST 05/08/2024 10:34 AM EST [facility] - 05/08/2024 12:46 PM EST PCR testing is much more sensitive than traditional techniques and allows for the detection of low numbers of stool pathogens. The clinical correlation of PCR results with the need for treatment and clinical outcomes has not been established. Therefore the results of PCR testing for stool pathogens must be taken into clinical context when making treatment decisions. This is a diagnostic test only, repeat testing for cure is not advised. You may consider infectious disease consult for additional guidance. ??Testing Performed by MULTIPLEXED PCR us Niels Retana MD LAB MICROBIOLOGY - GENERAL ORDER CHELA Final Result [facility] [address] [place] [address], documented in this encounter Visit Diagnoses Diagnosis Diarrhea, unspecified Encounter for screening mammogram for breast cancer documented in this encounter Additional Health Concerns Infection Onset Date Last Indicated Resolved Time Norovirus 05/08/2024 05/08/2024 documented as of this encounter Care Teams Grounds And Nursery Specialist Relationship Specialty Start Date End Date Niels Retana MD [address] [place] [phone] PCP - General Family Medicine 05/06/24 documented as of this encounter
--- OUTSIDE RECORDS SUMMARY | 2024-05-16 15:30 | XMS_ITS | Encounter Summary ---
Author Organization [facility] Address [address] [place] [address] Care Team Providers Care Crime Specialist Name Role Phone Ayan Clayton MD Primary Care Provider [phone] Encounter Details Date Type Department Care Team Description 06/22/2020 Employee Training Specialist Report Medical Records [address] [place] [address] Abstract, Provider Social History Tobacco Use Types [...] on filedocumented in this encounter Care Teams Crime Specialist Relationship Specialty Start Date End Date Ayan Clayton MD [address] [place], [place] [phone] PCP - General Internal Medicine 09/24/19 documented as of this encounter
--- OUTSIDE RECORDS SUMMARY | 2024-05-16 15:30 | XMS_ITS | Encounter Summary ---
Author Organization [facility] Address [address] [place] [address] Care Team Providers Care Edger Automatic Name Role Phone Daniel Mota MD Primary Care Provider Unavail able Ayan Clayton MD Primary Care Provider [phone] Encounter Details Date Type Department Care Team Description 01/26/2017 Plant Ecologist Report Medical Records [address] [place], [place] [phone] Abstract, Provider Social History Tobacco Use Types [...] on filedocumented in this encounter Care Teams Edger Automatic Relationship Specialty Start Date End Date Daniel Mota MD PCP - General Internal Medicine 10/20/16 09/23/19 Ayan Clayton MD [address] [place] [address] [phone] PCP - General Internal Medicine 09/24/19 documented as of this encounter
--- OUTSIDE RECORDS SUMMARY | 2024-05-16 15:30 | XMS_ITS | Encounter Summary ---
Author Organization [facility] Address [address] [place] [address] Care Team Providers Care Venetian Blind Machine Operator Name Role Phone Niels eRtana MD Primary Care Provider [phone] Encounter Details Date Type Department Care Team (Late st Contact Info) Description 05/06/2024 Lab Requisition [facility] - Main Lab 299 [facility] [place] [address] Niels Retana MD 38 [facility] [address] [place], [address] Other termite control technician (current) drug therapy Social History Tobacco Use Types Packs/Day Years [...] Encounters Date Type Department Care Team (Late Contact Info) Description 06/12/2024 8:50 AM EDT [facility] [address] [facility] [address] [place] [phone] Jil Freeman NP 175 [facility] [address] [place] [address] 08/30/2024 10:00 AM EDT Appointment Radiology Department - [address] [phone] 12/05/2024 3:45 PM EDT Office Visit Nephrology - [place] [address] [place] [address] Vega Navarro MD [address] [facility] 204 [place] [phone] 02/04/2025 9:00 AM EST Office Visit Bariatric Surgery - [place] 175 [facility] [address] [place] [phone] Torrey Moreno MD 175 [facility] [address] [place] [address] documented as of this encounter Procedures Procedure Name Priority Date/Time Associated Diagnosis Comments COMPLETE BLOOD COUNT Routine 05/06/2024 6:41 AM EST Other termite control technician (current) drug therapy COMPREHENSIVE METABOLIC PANEL Routine 05/06/2024 6:41 AM EST Other termite control technician (current) drug therapy documented in this encounter Results * (ABNORMAL) Comprehensive metabolic panel (05/06/2024 6:41 AM EST) Sodium 141 133 - 145 mmol/L LAB CHEMISTRY METHOD 05/06/2024 2:03 PM [facility] Potassium 3.6 3.5 - 5.5 mmol/L LAB CHEMISTRY METHOD 05/06/2024 2:03 PM [facility] Chloride 107 96 - 110 mmol/L LAB CHEMISTRY METHOD 05/06/2024 2:03 PM [facility] CO2 26 21 - 32 mmol/L LAB CHEMISTRY METHOD 05/06/2024 2:03 PM [facility] Anion Gap 8 3 - 11 LAB CHEMISTRY METHOD 05/06/2024 2:03 PM [facility] Glucose 108(H) 70 - 100 mg/dL LAB CHEMISTRY METHOD 05/06/2024 2:03 PM [facility] BUN 14 5 - 25 mg/dL LAB CHEMISTRY METHOD 05/06/2024 2:03 PM [facility] Creatinine 0.85 0.50 - 1.10 mg/dL LAB CHEMISTRY METHOD 05/06/2024 2:03 PM [facility] eGFR 75 >=60 mL/min/1. 73m2 LAB CHEMISTRY METHOD 05/06/2024 2:03 PM [facility] Comment:Calculation based on the??Chronic Kidney Disease Epidemiology Collaboration (CKD-EPI) equation refit??without adjustment for race. BUN/Creatinine Ratio 16.5 LAB CHEMISTRY METHOD 05/06/2024 2:03 PM [facility] Calcium 8.7 8.5 - 10.5 mg/dL LAB CHEMISTRY METHOD 05/06/2024 2:03 PM [facility] AST (SGOT) 35 10 - 42 unit/L LAB CHEMISTRY METHOD 05/06/2024 2:03 PM [facility] ALT (SGPT) 37 10 - 60 unit/L LAB CHEMISTRY METHOD 05/06/2024 2:03 PM [facility] Alkaline Phosphatase 403(H) 42 - 121 unit/L LAB CHEMISTRY METHOD 05/06/2024 2:03 PM [facility] Total Protein 5.8(L) 6.0 - 8.0 g/dL LAB CHEMISTRY METHOD 05/06/2024 2:03 PM [facility] Albumin 2.4(L) 3.2 - 5.0 g/dL LAB CHEMISTRY METHOD 05/06/2024 2:03 PM [facility] Total Bilirubin 0.5 0.0 - 1.4 mg/dL LAB CHEMISTRY METHOD 05/06/2024 2:03 PM [facility] Blood Venous blood specimen / Unknown Venipuncture / Unknown 05/06/2024 6:41 AM EST 05/06/2024 12:07 PM EST us Niels Retana MD LAB BLOOD ORDERABLES Final Resul t [facility] [address] [place] [address], * (ABNORMAL) Complete blood count (05/06/2024 6:41 AM EST) WBC 12.0(H) 4.8 - 10.8 K/mcL LAB HEMETOLOGY METHOD 05/06/2024 1:39 PM [facility] RBC 3.60(L) 3.80 - 4.80 M/mcL LAB HEMETOLOGY METHOD 05/06/2024 1:39 PM [facility] Hemoglobin 10.1(L) 11.5 - 16.0 g/dL LAB HEMETOLOGY METHOD 05/06/2024 1:39 PM [facility] Hematocrit 32.4(L) 35.0 - 47.0 % LAB HEMETOLOGY METHOD 05/06/2024 1:39 PM [facility] MCV 90.5 79.0 - 98.0 FL LAB HEMETOLOGY METHOD 05/06/2024 1:39 PM [facility] MCH 28.2 27.0 - 32.0 pcg LAB HEMETOLOGY METHOD 05/06/2024 1:39 PM [facility] MCHC 31.2(L) 32.0 - 37.0 g/dL LAB HEMETOLOGY METHOD 05/06/2024 1:39 PM [facility] RDW 15.0 11.0 - 15.0 % LAB HEMETOLOGY METHOD 05/06/2024 1:39 PM EST [facility] Platelets 349 130 - 400 K/mcL LAB HEMETOLOGY METHOD 05/06/2024 1:39 PM EST [facility] MPV 10.1 7.0 - 11.0 FL LAB HEMETOLOGY METHOD 05/06/2024 1:39 PM EST [facility] NRBC 0.0 <1.0 % LAB HEMETOLOGY METHOD 05/06/2024 1:39 PM EST [facility] NRBC Absolute 0.00 <0.10 K/mcL LAB HEMETOLOGY METHOD 05/06/2024 1:39 PM EST [facility] Blood Venous blood specimen / Unknown Venipuncture / Unknown 05/06/2024 6:41 AM EST 05/06/2024 12:07 PM EST us Niels Retana MD LAB BLOOD ORDERABLES Final Resul t [facility] [address] [place] [address], documented in this encounter Visit Diagnoses Diagnosis Other termite control technician (current) drug therapy Encounter for screening mammogram for breast cancer documented in this encounter Additional Health Concerns Infection Onset Date Last Indicated Resolved Time Norovirus 05/08/2024 05/08/2024 documented as of this encounter Care Teams Venetian Blind Machine Operator Relationship Specialty Start Date End Date Niels Retana MD [address] [place] [phone] PCP - General Family Medicine 05/06/24 documented as of this encounter
--- OUTSIDE RECORDS SUMMARY | 2024-05-16 15:30 | XMS_ITS | Encounter Summary ---
Author Organization [facility] Address [address] [place] [address] Care Team Providers Care Medical Case Manager Name Role Phone Daniel Mota MD Primary Care Provider Ayan Rubalcava MD Primary Care Provider Reason for Visit * Reason Onset Date Comments TEST RESULTS 01/04/2017 Encounter Details Date Type Department Care Team Description 01/04/2017 Telephone Adult Medicine [address] [address] Daniel Mota MD TEST RESULTS Social History [...] - 0.80 mg/dL 01/09/2017 12:25 PM EDT [facility] 01/09/2017 11:0 4 AM EDT 01/09/2017 11:04 AM EDT Daniel Mota MD LAB Performing Organization Address [facility] Co de Phone Number [address] * RBC SEDIMENTATION RATE, NON-AUTO (01/09/2017 11:04 AM EDT) ESR 22 0 - 30 mm/hr 01/09/2017 1:05 PM EDT [facility] 01/09/2017 11:0 4 AM EDT 01/09/2017 11:04 AM EDT Daniel Mota MD LAB Performing Organization Address [facility] de Phone Number [address] * (ABNORMAL) CBC (AUTO DIFF PLATELET) (01/09/2017 11:04 AM EDT) WBC 8.8 4.8 - 10.8 x10-3 01/09/2017 11:20 AM EDT [facility] RBC 5.0(H) 3.8 - 4.8 x10-6 01/09/2017 11:20 AM EDT [facility] HGB 14.9 11.5 - 16.0 g/dl 01/09/2017 11:20 AM EDT [facility] HCT 45.3 35 - 47 % 01/09/2017 11:20 AM EDT [facility] MCV 90.4 79 - 98 fl 01/09/2017 11:20 AM EDT [facility] MCH 29.7 27 - 32 pg 01/09/2017 11:20 AM EDT [facility] MCHC 32.9 32 - 37 g/dl 01/09/2017 11:20 AM EDT [facility] RDW 13.6 11 - 15 % 01/09/2017 11:20 AM EDT [facility] PLT COUNT 248 130 - 400 x10-3 01/09/2017 11:[address] [facility] MEAN PLATELET VOLUME 10.7 7 - 11 fl 01/09/2017 11:[address] [facility] NEUT % 62.8 41 - 85 % 01/09/2017 11:[address] [facility] LYMPH % 19.9 15 - 48 % 01/09/2017 11:[address] [facility] MONO % 7.2 0 - 12 % 01/09/2017 11:[address] [facility] EOS % 9.0(H) 0 - 5 % 01/09/2017 11:20 AM EDT [facility] BASO % 1.1 0 - 2 % 01/09/2017 11:20 AM EDT [facility] 01/09/2017 11:0 4 AM EDT 01/09/2017 11:04 AM EDT Daniel Mota MD LAB Performing Organization Address City/State/[facility] Co de Phone Number [facility] [address] [facility] * (ABNORMAL) BASIC METABOLIC PANEL (01/09/2017 11:04 AM EDT) [facility] GLUCOSE 123(H) 70 - 100 mg/dL 01/09/2017 12:[address] [facility] Comment: Reference range applicable to fasting specimens only Based on recommendations from the ADA and AACE, the fasting glucose reference range has been changed to 70-100 mg/dL. ??This change is effective August 10, 2009 BUN 11 5 - 25 mg/dL 01/09/2017 12:[address] [facility] CREAT 0.8 0.7 - 1.5 mg/dL 01/09/2017 12:25 PM EDT [facility] GFR > 60 >60 01/09/2017 12:25 PM EDT [facility] Comment: If patient is -Thai, multiply result by 1.21 Chronic Kidney Disease: [...] Daniel Mota MD LAB Performing Organization Address City/State/[facility] Co de Phone Number [facility] [address] [facility] documented in this encounter Visit Diagnoses Diagnosis Neck pain- Primary Cervicalgia documented in this encounter Care Teams Medical Case Manager Relationship Specialty Start Date End Date Daniel Mota MD PCP - General Internal Medicine 10/20/16 09/23/19 Ayan Clayton MD [address] [place] [address] PCP - General Internal Medicine 09/24/19 documented as of this encounter
--- OUTSIDE RECORDS SUMMARY | 2024-05-16 15:30 | XMS_ITS | Encounter Summary ---
Author Organization [facility] Address [address] [place] [address] Care Team Providers Care Zoogler Name Role Phone Daniel Mota MD Primary Care Provider Unavail [facility] Ayan Clayton MD Primary Care Provider [phone] Encounter Details Date Type Department Care Team Description 03/03/2017 Smoke Jumper Supervisor Report Medical Records [address] [place] [address] Lida Renae PA-C [address] [place] [address] Social History Tobacco Use Types Packs/Day [...] on filedocumented in this encounter Care Teams Zoogler Relationship Specialty Start Date End Date Daniel Mota MD PCP - General Internal Medicine 10/20/16 09/23/19 Ayan Clayton MD [address] [place] [address] PCP - General Internal Medicine 09/24/19 documented as of this encounter
--- OUTSIDE RECORDS SUMMARY | 2024-05-16 15:30 | XMS_ITS | Encounter Summary ---
Author Organization [facility] Address [address] [place] [address] Care Team Providers Care Numerical Control Programmer Name Role Phone Ayan Clayton MD Primary Care Provider [phone] Reason for Visit * Reason Comments E-prescribe Rx Request Encounter Details Date Type Department Care Team Description 04/22/2020 Refill General Surgery - [place] [address] [facility] [address] [place] [address] Torrey Moreno MD [address] [place] [address] [address] [place], [place] [phone] E-prescribe Rx Request Social History Tobacco Use [...] Telephone Encounter - Carolina Arellano M.A. - 05/01/2020 8:35 AM EST Pt needs a 90 day supply of cholecalciferol (vitamin D3) 125 mcg (5,000 unit) capsule Last filled on 02/03/2020 documented in this encounter Plan of Treatment Not on file documented as of this encounter Visit Diagnoses Diagnosis Intestinal malabsorption following gastrectomy documented in this encounter Care Teams Numerical Control Programmer Relationship Specialty Start Date End Date Ayan Clayton MD [address] [place] [address] PCP - General Internal Medicine 09/24/19 documented as of this encounter
--- OUTSIDE RECORDS SUMMARY | 2024-05-16 15:30 | XMS_ITS | Encounter Summary ---
Author Organization [facility] Address [address] [place] [address] Care Team Providers Care Event Set Up Specialist Name Role Phone Ayan Clayton MD Primary Care Provider [phone] Encounter Details Date Type Department Care Team Description 10/08/2020 Director Of Student Affairs Report Medical Records [address] [place] [address] Skylar Hanna DPM Social History Tobacco Use [...] on filedocumented in this encounter Care Teams Event Set Up Specialist Relationship Specialty Start Date End Date Ayan Clayton MD [address] [place], [place] [phone] PCP - General Internal Medicine 09/24/19 documented as of this encounter
--- OUTSIDE RECORDS SUMMARY | 2024-05-16 15:30 | XMS_ITS | Encounter Summary ---
Author Organization [facility] Address [address] [place] [address] Care Team Providers Care Pulling Unit Operator Name Role Phone Ayan Clayton MD Primary Care Provider [phone] Encounter Details Date Type Department Care Team Description 09/04/2020 Telephone Gastroenterology - [place] 175 [facility] [address] [place] [address] Jerrod Joe PA-C Social History [...] on filedocumented in this encounter Care Teams Pulling Unit Operator Relationship Specialty Start Date End Date Ayan Clayton MD [address] [place] [address] PCP - General Internal Medicine 09/24/19 documented as of this encounter
--- OUTSIDE RECORDS SUMMARY | 2024-05-16 15:30 | XMS_ITS | Encounter Summary ---
Author Organization [facility] Address [address] [place] [address] Care Team Providers Care Brown Sourer Name Role Phone Ayan Clayton MD Primary Care Provider [phone] Reason for Visit * Reason Onset Date Comments medication problems 10/29/2020 Encounter Details Date Type Department Care Team Description 10/29/2020 Telephone Adult Medicine [facility] [address] [place] [address] [phone] Ayan Clayton MD [address] [place] [address] [phone] medication problems Social History Tobacco Use Types [...] on filedocumented in this encounter Care Teams Brown Sourer Relationship Specialty Start Date End Date Ayan Clayton MD [address] [place] [address] PCP - General Internal Medicine 09/24/19 documented as of this encounter
--- OUTSIDE RECORDS SUMMARY | 2024-05-16 15:30 | XMS_ITS | Encounter Summary ---
Author Organization [facility] Address [address] [place] [address] Care Team Providers Care Clerk Funeral Detail Name Role Phone Ayan Clayton MD Primary Care Provider [phone] Reason for Visit * Reason Onset Date Comments Bariatric Weight Check 07/29/2020 Encounter Details Date Type Department Care Team Description 07/29/2020 Telephone General Surgery - [address] [place] [address] Liana Churchill, ,RDN,LDN Bariatric Weight [...] filedocumented in this encounter Care Teams Clerk Funeral Detail Relationship Specialty Start Date End Date Ayan Clayton MD [address] [place] [address] PCP - General Internal Medicine 09/24/19 documented as of this encounter
--- OUTSIDE RECORDS SUMMARY | 2024-05-16 15:30 | XMS_ITS | Encounter Summary ---
Author Organization [facility] Address [address] [place] [address] Care Team Providers Care Cryptanalyst Name Role Phone Ayan Clayton MD Primary Care Provider [phone] Encounter Details Date Type Department Care Team Description 05/15/2020 Tool Storage Attendant Report Medical Records [address] [place] [address] [facility] Social History Tobacco Use Types Packs/Day [...] on filedocumented in this encounter Care Teams Cryptanalyst Relationship Specialty Start Date End Date Ayan Clayton MD [address] [place], [place] [phone] PCP - General Internal Medicine 09/24/19 documented as of this encounter
--- OUTSIDE RECORDS SUMMARY | 2024-05-16 15:30 | XMS_ITS | Encounter Summary ---
Author Organization [facility] Address [address] [place] [address] Care Team Providers Care Auto Tune Up Mechanic Name Role Phone Ayan Clayton MD Primary Care Provider [phone] Reason for Visit * Reason Comments E-prescribe Rx Request Encounter Details Date Type Department Care Team Description 07/29/2020 Refill General Surgery - [place] [address] [facility] [address] [place] [address] Torrey Moreno MD [address] [place] [address] [address] [place], [place] [phone] E-prescribe Rx Request Social History Tobacco Use [...] gastrectomy documented in this encounter Care Teams Auto Tune Up Mechanic Relationship Specialty Start Date End Date Ayan Clayton MD [address] [place] [address] PCP - General Internal Medicine 09/24/19 documented as of this encounter
--- OUTSIDE RECORDS SUMMARY | 2024-05-16 15:30 | XMS_ITS | Encounter Summary ---
Author Organization [facility] Address [address] [place] [address] Care Team Providers Care Chemical Compounder Helper Name Role Phone Ayan Clayton MD Primary Care Provider [phone] Reason for Visit * Reason Onset Date Comments Faxed Order 09/09/2020 Encounter Details Date Type Department Care Team Description 09/09/[address] [facility] [address] [place] [address] [phone] Ayan Clayton MD [address] [place] [address] [phone] Faxed Order Social History Tobacco Use Types [...] AM EDT More faxed orders received from [email or web address], placed in Ayan mahmood * Telephone Encounter - Rosa Latham - 09/09/2020 10:23 AM EDT Physician order for Dr. Ayan Clayton's signature documented in this encounter Plan of Treatment Not on file documented as of this encounter Visit Diagnoses Not on filedocumented in this encounter Care Teams Chemical Compounder Helper Relationship Specialty Start Date End Date Ayan Clayton MD [address] [place] [address] PCP - General Internal Medicine 09/24/19 documented as of this encounter
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
--- OUTSIDE RECORDS SUMMARY | 2024-05-16 15:31 | XMS_ITS | Encounter Summary ---
Author Organization [facility] Address [address] [place] [address] Care Team Providers Care Marine Meteorologist Name Role Phone Daniel Mota MD Primary Care Provider Unavail Victor Manuel Yu MD Primary Care Provider Unava ilable Daniel Mota MD Primary Care Provider Unavail Ayan Pulliam MD Primary Care Provider [phone] Victor Manuel Gonzales MD Primary Care Provider Unava ilable Encounter Details Date Type Department Care Team Description 01/14/2011 Eye Advisory Intern Report Medical Records [address] [place] [address] Mathew Liu Social History Tobacco Use Types [...] filedocumented in this encounter Care Teams Marine Meteorologist Relationship Specialty Start Date End Date Daniel Mota MD PCP - General 07/27/1994 12/22/15 Victor Manuel Gonzales MD PCP - General Internal Medicine 07/22/16 10/19/16 Daniel Mota MD PCP - General Internal Medicine 10/20/16 09/23/19 Ayan Clayton MD [address] [place] [address] PCP - General Internal Medicine 09/24/19 Victor Manuel Gonzales MD PCP - General 12/23/15 07/21/16 documented as of this encounter
--- OUTSIDE RECORDS SUMMARY | 2024-05-16 15:31 | XMS_ITS | Encounter Summary ---
Author Organization [facility] Address [address] [place] [address] Care Team Providers Care Press Brake Operator Name Role Phone Daniel Mota MD Primary Care Provider Ayan Rubalcava MD Primary Care Provider Encounter Details Date Type Department Care Team Description 05/24/2017 Orders Only Medical Records [address] [place] [address] Daniel Mota MD Social History Tobacco Use [...] on filedocumented in this encounter Care Teams Press Brake Operator Relationship Specialty Start Date End Date Daniel Mota MD PCP - General Internal Medicine 10/20/16 09/23/19 Ayan Clayton MD [address] [place] [address] PCP - General Internal Medicine 09/24/19 documented as of this encounter
--- OUTSIDE RECORDS SUMMARY | 2024-05-16 15:31 | XMS_ITS | Encounter Summary ---
Author Organization [facility] Address [address] [place] [address] Care Team Providers Care Pharmacy Services Director Name Role Phone Victor Manuel Gonzales MD Primary Care Provider Daniel Longoria MD Primary Care Provider [facility] Ayan Clayton MD Primary Care Provider [phone] Encounter Details Date Type Department Care Team Description 09/05/2016 Business Doc Medical Records [address] [place] [id number] Abstract, Provider Social History Tobacco Use Types [...] on filedocumented in this encounter Care Teams Pharmacy Services Director Relationship Specialty Start Date End Date Victor Manuel Gonzales MD PCP - General Internal Medicine 07/22/16 10/19/16 Daniel Mota MD PCP - General Internal Medicine 10/20/16 09/23/19 Ayan Clayton MD [address] [place] [address] PCP - General Internal Medicine 09/24/19 documented as of this encounter
--- OUTSIDE RECORDS SUMMARY | 2024-05-16 15:31 | XMS_ITS | Encounter Summary ---
Author Organization [facility] Address [address] [place] [address] Care Team Providers Care Manager Regional Name Role Phone Ayan Clayton MD Primary Care Provider [phone] Encounter Details Date Type Department Care Team Description 05/07/2021 Orders Only Endocrinology - [address] [address] Juan Alberto Kendall MD [address] [place], [place] [phone] Social History Tobacco Use Types Packs/Day Years [...] filedocumented in this encounter Care Teams Manager Regional Relationship Specialty Start Date End Date Ayan Clayton MD [address] [place] [address] PCP - General Internal Medicine 09/24/19 documented as of this encounter
--- OUTSIDE RECORDS SUMMARY | 2024-05-16 15:31 | XMS_ITS | Encounter Summary ---
Author Organization [facility] Address [address] [place] [address] Care Team Providers Care Book Illustrator Name Role Phone Ayan Clayton MD Primary Care Provider [phone] Reason for Visit * Reason Onset Date Comments Medication 02/02/2021 Encounter Details Date Type Department Care Team Description 02/02/2021 Refill Gastroenterology - [place] 175 [facility] [address] [place] [address] Ruth Mitchell MD [address] [place] [address] Medication Social History Tobacco Use Types Packs/Day [...] on filedocumented in this encounter Care Teams Book Illustrator Relationship Specialty Start Date End Date Ayan Clayton MD [address] [place] [address] [phone] PCP - General Internal Medicine 09/24/19 documented as of this encounter
--- OUTSIDE RECORDS SUMMARY | 2024-05-16 15:31 | XMS_ITS | Encounter Summary ---
Author Organization [facility] Address [address] [place] [address] Care Team Providers Care Director Of Student Financial Aid Name Role Phone Ayan Clayton MD Primary Care Provider [phone] Reason for Visit * Reason Comments E-prescribe Rx Request Encounter Details Date Type Department Care Team Description 05/27/2022 Refill Adult Medicine [facility] [address] [place], [place] [phone] Ayan Clayton MD [address] [place] [address] [phone] E-prescribe Rx Request Social History Tobacco Use [...] suspected to have Coronavirus/COVID-19? No / Unsure 05/10/2022 9:27 AM EST documented as of this encounter Miscellaneous Notes * Telephone Encounter - Afsaneh Mtz M.A. 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
--- OUTSIDE RECORDS SUMMARY | 2024-05-16 15:31 | XMS_ITS | Encounter Summary ---
Author Organization [facility] Address [address] [place] [address] Care Team Providers Care Continuous Yarn Dyeing Machine Operator Name Role Phone Ayan Clayton MD Primary Care Provider [phone] Encounter Details Date Type Department Care Team Description 03/17/2021 Armored Cable Machine Operator Report Medical Records [address] [place] [address] [facility] Social History Tobacco Use Types [...] on filedocumented in this encounter Care Teams Continuous Yarn Dyeing Machine Operator Relationship Specialty Start Date End Date Ayan Clayton MD [address] [place], [place] [phone] PCP - General Internal Medicine 09/24/19 documented as of this encounter
--- OUTSIDE RECORDS SUMMARY | 2024-05-16 15:31 | XMS_ITS | Encounter Summary ---
Author Organization [facility] Address [address] [place] [address] Care Team Providers Care Garment Finisher Name Role Phone Daniel Mota MD Primary Care Provider Unavail Victor Manuel Yu MD Primary Care Provider Unava ilable Daniel Mota MD Primary Care Provider Unavail Ayan Pulliam MD Primary Care Provider [phone] Victor Manuel Gonzales MD Primary Care Provider Unava ilmaximino Encounter Details Date Type Department Care Team Description 05/04/2010 Yarn Examiner Skeins Report Medical Records [address] [place] [address] Adolfo Hill MD Social History Tobacco Use [...] on filedocumented in this encounter Care Teams Garment Finisher Relationship Specialty Start Date End Date Daniel Mota MD PCP - General 07/27/1994 12/22/15 Victor Manuel Gonzales MD PCP - General Internal Medicine 07/22/16 10/19/16 Daniel Mota MD PCP - General Internal Medicine 10/20/16 09/23/19 Ayan Clayton MD [address] [place] [address] PCP - General Internal Medicine 09/24/19 Victor Manuel Gonzales MD PCP - General 12/23/15 07/21/16 documented as of this encounter
--- OUTSIDE RECORDS SUMMARY | 2024-05-16 15:31 | XMS_ITS | Encounter Summary ---
Author Organization [facility] Address [address] [place] [address] Care Team Providers Care Student Financial Aid Manager Name Role Phone Daniel Mota MD Primary Care Provider Unavail Victor Manuel Yu MD Primary Care Provider Unava ilable Daniel Mota MD Primary Care Provider Unavail Ayan Pulliam MD Primary Care Provider [phone] Victor Manuel Gonzales MD Primary Care Provider Unava ilmaximino Encounter Details Date Type Department Care Team Description 10/13/2010 Force Adjustment Supervisor Report Medical Records [address] [place] [address] Marcela Singh [address] [place] [address] Social History Tobacco Use Types Packs/Day Years [...] on filedocumented in this encounter Care Teams Student Financial Aid Manager Relationship Specialty Start Date End Date Daniel Mota MD PCP - General 07/27/1994 12/22/15 Victor Manuel Gonzales MD PCP - General Internal Medicine 07/22/16 10/19/16 Daniel Mota MD PCP - General Internal Medicine 10/20/16 09/23/19 Ayan Clayton MD [address] [place] [address] PCP - General Internal Medicine 09/24/19 Victor Manuel Gonzales MD PCP - General 12/23/15 07/21/16 documented as of this encounter
--- OUTSIDE RECORDS SUMMARY | 2024-05-16 15:31 | XMS_ITS | Encounter Summary ---
Author Organization [facility] Address [address] [place] [address] Care Team Providers Care Commercial Title Examiner Name Role Phone Daniel Mota MD Primary Care Provider Unavail able Ayan Clayton MD Primary Care Provider [phone] Encounter Details Date Type Department Care Team Description 04/16/2018 Assembler Show Motor Report Medical Records [address] [place] [address] Jake Limon MD Social History Tobacco Use [...] filedocumented in this encounter Care Teams Commercial Title Examiner Relationship Specialty Start Date End Date Daniel Mota MD PCP - General Internal Medicine 10/20/16 09/23/19 Ayan Clayton MD [address] [place], [place] [phone] PCP - General Internal Medicine 09/24/19 documented as of this encounter
--- OUTSIDE RECORDS SUMMARY | 2024-05-16 15:31 | XMS_ITS | Encounter Summary ---
Author Organization [facility] Address [address] [place] [address] Care Team Providers Care Cattle And Wheat Farmer Name Role Phone Daniel Mota MD Primary Care Provider Unavail able Ayan Clayton MD Primary Care Provider Encounter Details Date Type Department Care Team Description 10/24/2016 [facility] Medical Records [address] [place] [id number] Abstract, Provider Social History Tobacco Use Types [...] filedocumented in this encounter Care Teams Cattle And Wheat Farmer Relationship Specialty Start Date End Date Daniel Mota MD PCP - General Internal Medicine 10/20/16 09/23/19 Ayan Clayton MD [address] [place] [address] [id number] PCP - General Internal Medicine 09/24/19 documented as of this encounter
--- OUTSIDE RECORDS SUMMARY | 2024-05-16 15:31 | XMS_ITS | Encounter Summary ---
Author Organization [facility] Address [address] [place] [address] Care Team Providers Care Furniture Maker Name Role Phone Daniel Mota MD Primary Care Provider Unavail Victor Manuel Yu MD Primary Care Provider Unava ilable Daniel Mota MD Primary Care Provider Unavail Ayan Pulliam MD Primary Care Provider [phone] Victor Manuel Gonzales MD Primary Care Provider Unava ilmaximino Encounter Details Date Type Department Care Team Description 05/02/2011 Photo Checker And Assembler Report Medical Records [address] [place] [address] Elgin Russell MD Social History Tobacco Use [...] filedocumented in this encounter Care Teams Furniture Maker Relationship Specialty Start Date End Date Daniel Mota MD PCP - General 07/27/1994 12/22/15 Victor Manuel Gonzales MD PCP - General Internal Medicine 07/22/16 10/19/16 Daniel Mota MD PCP - General Internal Medicine 10/20/16 09/23/19 Ayan Clayton MD [address] [place] [id number] PCP - General Internal Medicine 09/24/19 Victor Manuel Gonzales MD PCP - General 12/23/15 07/21/16 documented as of this encounter
--- OUTSIDE RECORDS SUMMARY | 2024-05-16 15:31 | XMS_ITS | Encounter Summary ---
Author Organization [facility] Address [address] [place] [address] Care Team Providers Care Lunchroom Mother Name Role Phone Ayan Clayton MD Primary Care Provider [phone] Reason for Visit * Reason Onset Date Comments preop exam 07/27/2022 Encounter Details Date Type Department Care Team Description 07/27/2022 Telephone Adult Medicine [address] [phone] Ayan Clayton MD [address] [place] [address] [phone] preop exam Social History Tobacco Use Types [...] Fernie Toth Office phone number of surgeon: [phone] Fax # for surgeons office: [phone] (Required) Where is surgery being performed? [facility] Diagnosis/problem for surgery: Left total hip arthoplastry Is an EKG required for the pre-op workup? YES (labs) PCP: Ayan Clayton Did you verify that the insurance below is correct? YES Patients insurance: Payor: [employer] / Plan: PPO $0 [place] [employer] [id number] / Product Type: PPO [id number] documented in this encounter Plan of Treatment Not on file documented as of this encounter Visit Diagnoses Not on filedocumented in this encounter Care Teams Lunchroom Mother Relationship Specialty Start Date End Date Ayan Clayton MD [address] [place] [id number] PCP - General Internal Medicine 09/24/19 documented as of this encounter
--- OUTSIDE RECORDS SUMMARY | 2024-05-16 15:31 | XMS_ITS | Encounter Summary ---
Author Organization [facility] Address [address] [place] [address] Care Team Providers Care Clinical Fellow Name Role Phone Ayan Clayton MD Primary Care Provider [phone] Reason for Visit * Reason Onset Date Comments refill request 02/03/2021 Encounter Details Date Type Department Care Team Description 02/03/2021 Refill Pulmonology - [place] [address] [facility] [address] [place] [id number] Jil Freeman APRN [address] [facility] [address] [place] [phone] refill request Social History Tobacco Use Types [...] / [place] / Product Type: MEDICARE [id number] documented in this encounter Plan of Treatment Not on file documented as of this encounter Visit Diagnoses Diagnosis Post-nasal drainage Unspecified sinusitis (chronic) Centrilobular emphysema (HCC) Other emphysema documented in this encounter Care Teams Clinical Fellow Relationship Specialty Start Date End Date Aayn Clayton MD [address] [place] [phone] PCP - General Internal Medicine 09/24/19 documented as of this encounter
--- OUTSIDE RECORDS SUMMARY | 2024-05-16 15:31 | XMS_ITS | Encounter Summary ---
Author Organization [facility] Address [address] [place] [address] Care Team Providers Care Laundry Machine Tender Name Role Phone Daniel Mota MD Primary Care Provider Unavail Victor Manuel Yu MD Primary Care Provider Unava ilable Daniel Mota MD Primary Care Provider Unavail Ayan Pulliam MD Primary Care Provider [phone] Victor Manuel Gonzales MD Primary Care Provider Unava ilmaximino Encounter Details Date Type Department Care Team Description 12/27/2010 Dispatch Specialist Report Medical Records [address] [place] [address] Elgin Russell MD Social History Tobacco Use [...] on filedocumented in this encounter Care Teams Laundry Machine Tender Relationship Specialty Start Date End Date Daniel Mota MD PCP - General 07/27/1994 12/22/15 Victor Manuel Gonzales MD PCP - General Internal Medicine 07/22/16 10/19/16 Daniel Mota MD PCP - General Internal Medicine 10/20/16 09/23/19 Ayan Clayton MD [address] [place] [id number] PCP - General Internal Medicine 09/24/19 Victor Manuel Gonzales MD PCP - General 12/23/15 07/21/16 documented as of this encounter
--- OUTSIDE RECORDS SUMMARY | 2024-05-16 15:31 | XMS_ITS | Encounter Summary ---
Author Organization [facility] Address [address] [place] [address] Care Team Providers Care Folder Machine Adjuster Name Role Phone Victor Manuel Gonzales MD Primary Care Provider Daniel Longoria MD Primary Care Provider [facility] Ayan Clayton MD Primary Care Provider [phone] Victor Manuel Gonzales MD Primary Care Provider Candida puri Encounter Details Date Type Department Care Team Description 03/18/2016 Telephone Adult Medicine [facility] [address] [place] [phone] Daniel Mota MD Social History Tobacco Use [...] on filedocumented in this encounter Care Teams Folder Machine Adjuster Relationship Specialty Start Date End Date Victor Manuel Gonzales MD PCP - General Internal Medicine 07/22/16 10/19/16 Daniel Mota MD PCP - General Internal Medicine 10/20/16 09/23/19 Ayan Clayton MD [address] [place] [id number] PCP - General Internal Medicine 09/24/19 Victor Manuel Gonzales MD PCP - General 12/23/15 07/21/16 documented as of this encounter
--- OUTSIDE RECORDS SUMMARY | 2024-05-16 15:31 | XMS_ITS | Encounter Summary ---
Author Organization [facility] Address [address] [place] [address] Care Team Providers Care Cpr Instructor Name Role Phone Victor Manuel Gonzales MD Primary Care Provider Daniel Longoria MD Primary Care Provider Ayan Rubalcava MD Primary Care Provider [phone] Reason for Visit * Reason Onset Date Comments Orders Call 07/22/2016 Encounter Details Date Type Department Care Team Description 07/22/2016 Telephone Podiatry - [place] [address] [place] [id number] Skylar Hanna DPM Orders Call Social History [...] on filedocumented in this encounter Care Teams Cpr Instructor Relationship Specialty Start Date End Date Victor Manuel Gonzales MD PCP - General Internal Medicine 07/22/16 10/19/16 Daniel Mota MD PCP - General Internal Medicine 10/20/16 09/23/19 Ayan Clayton MD [address] [place] [id number] PCP - General Internal Medicine 09/24/19 documented as of this encounter
--- OUTSIDE RECORDS SUMMARY | 2024-05-16 15:31 | XMS_ITS | Encounter Summary ---
Author Organization [facility] Address [address] [place] [address] Care Team Providers Care Sales And Retail Management Recruiter Name Role Phone Ayan Clayton MD Primary Care Provider [phone] Encounter Details Date Type Department Care Team Description 03/10/2021 Robotics Engineer Report Medical Records [address] [place] [address] Rell Leavitt Social History Tobacco Use Types [...] in this encounter Care Teams Sales And Retail Management Recruiter Relationship Specialty Start Date End Date Ayan Clayton MD [address] [place], [place] [phone] PCP - General Internal Medicine 09/24/19 documented as of this encounter
--- OUTSIDE RECORDS SUMMARY | 2024-05-16 15:31 | XMS_ITS | Encounter Summary ---
Author Organization [facility] Address [address] [place] [address] Care Team Providers Care Coding Auditor Name Role Phone Daniel Mota MD Primary Care Provider Ayan Rubalcava MD Primary Care Provider Reason for Visit * Reason Onset Date Comments REFERRAL 09/06/2017 Encounter Details Date Type Department Care Team Description 09/06/2017 Telephone Physiatry - [address] [address] Surjit Reese DO REFERRAL Social History Tobacco [...] on filedocumented in this encounter Care Teams Coding Auditor Relationship Specialty Start Date End Date Daniel Mota MD PCP - General Internal Medicine 10/20/16 09/23/19 Ayan Clayton MD [address] [place], [place] [phone] PCP - General Internal Medicine 09/24/19 documented as of this encounter
--- OUTSIDE RECORDS SUMMARY | 2024-05-16 15:31 | XMS_ITS | Clinical Summary ---
Author Organization [facility] Address [address] [place] [address] Phone Care Team Providers Care Clinical Assoc Name Role Phone Niels Retana MD Primary Care Provider [phone] Allergies Active Allergy Reactions Criticality Noted Date Comments Metformin Diarrhea 09/23/2016 Sulfa (Sulfonamide Antibiotics) High 03/28/2005 swelling and difficulty breathing Medications cyanocobalamin (VITAMIN B-12) 1,000 mcg tablet Take 1 tablet (1,000 mcg total) by mouth 1 (one) time each day. 05/23/19 24 Active multivitamin (MULTIPLE VITAMINS ORAL) Take 1 tablet by mouth 1 (one) time each day. 04/18/19 24 Active fluticasone-ume clidinium-vilan terol (Trelegy Ellipta) 100-62.5-25 mcg inhaler Inhale 1 Puff into the lungs daily. 08/07/19 24 Active acetaminophen (TYLENOL 8 HOUR) 650 mg 8 hr tablet TAKE ONE TABLET EVERY 8 HOURS NEEDED FOR PAIN 07/11/19 24 Active diclofenac (VOLTAREN) 1 % topical gel APPLY ONE GRAM TO THE AFFECTED AREA(s) TWICE DAILY 07/11/19 24 Active cetirizine (ZyrTEC) 10 mg tablet Take 1 tablet (10 mg total) by mouth 1 (one) time each day. 07/05/19 24 Active atorvastatin (LIPITOR) 20 mg tablet Take 1 Tablet by mouth at bedtime. 07/05/19 24 Active hydrOXYzine HCL (ATARAX) 50 mg tablet Take 1 tablet (50 mg total) by mouth 2 (two) times a day. 07/05/19 24 Active lisinopriL (PRINIVIL,ZESTR IL) 2.5 mg tablet Take 1 Tablet by mouth daily for 180 days. 07/05/19 24 Active lansoprazole (PREVACID SOLUTAB) 15 mg dispersible tablet DISSOLVE 1 TABLET BY MOUTH EVERY DAY 06/21/19 24 Active calcitonin salmon (MIACALCIN) 200 unit/actuation nasal spray 1 [place] by Alternating Nares route daily. 06/29/19 24 025 Active cholecalciferol (VITAMIN D-3) 25 mcg (1,000 unit) tablet Take 1 tablet (1,000 Units total) by mouth 1 (one) time each day. 06/21/19 24 Active celecoxib (CeleBREX) 100 mg capsule Take 1 capsule (100 mg total) by mouth 2 (two) times a day. 05/18/19 24 Active albuterol HFA (PROAIR HFA ; PROVENTIL HFA ; VENTOLIN HFA) 90 mcg/actuation inhaler Inhale 2 Puffs into the lungs 4 times daily as needed for Wheezing or Shortness of Breath. 06/05/19 24 Active vitamin B complex vit C no.3 (B COMPLEX PLUS VITAMIN C ORAL) Take 1 tablet by mouth 1 (one) time each day. 05/25/19 24 Active thiamine 100 mg tablet Take 1 tablet (100 mg total) by mouth 1 (one) time each day. 05/23/19 24 Active nystatin (MYCOSTATIN) cream APPLY TO THE AFFECTED AREA(S) THREE TIMES DAILY 04/11/19 24 Active Ozempic 2 mg/dose (8 mg/3 mL) injection pen Inject 2 mg into the skin once a week. INJECT 2mg's SUBCUTANEOUSLY EVERY WEEK 04/10/19 24 Active ibuprofen (ADVIL,MOTRIN) 800 mg tablet Take 1 tablet (800 mg total) by mouth every 8 (eight) hours if needed. 03/15/20 Active triamcinolone acetonide (KENALOG-40) 40 mg/mL injection Inject 1 mL into the articular space once for 1 dose. 03/10/20 Active polyethylene glycol (MIRALAX) 17 gram packet MIX 1 PACKET IN 8 OUNCES OF WATER, JUICE,SODA, COFFEE, OR TEA DAILY NEEDED FOR CONSTIPATION TWICE DAILY 08/04/19 23 Active UNABLE TO FIND Use daily 06/24/19 23 Active blood sugar diagnostic (FreeStyle Lite Strips) test strip TEST BLOOD SUGAR FOUR TIMES DAILY 11/13/19 22 Active tiZANidine (ZANAFLEX) 4 mg tablet TAKE ONE TABLET EVERY 6 HOURS NEEDED FOR MUSCLE SPASMS 120 tablet 1 03/13/20 24 Active Active Problems Problem Noted Date Diagnosed [...] Encounters Date Type Department Care Team Description 05/08/[address] [facility] [address] [place] [address] Niels Retana MD Diarrhea, unspecified 05/06/[address] [facility] [address] [place] [address] Niels Retana MD Other terminal 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 04/04/2024 Telephone Adult Medicine [facility] [address] [place] [phone] Ayan Clayton MD Pre-op Exam 03/15/2024 Telephone Lung Screening Program - [place] [address] [facility] [address] [place] [phone] Jyoti Mackay [place] Appointment (No longer qualifies for screening) 02/20/2024 10:45 AM EST Office Visit Bariatric Surgery - [place] [address] [facility] [address] [place] [phone] Torrey Moreno MD Intestinal malabsorption following gastrectomy [...] Varicose veins of both lower extremities 02/02/20 COVID-19 virus detected 07/23/2019 0 Family History [...] on file Sexual Orientation Not on file Obstetrics History Last Filed [...] 8:50 AM EDT Office Visit Pulmonolgy - [place] [address] [facility] [address] [place] [phone] Jil Freeman NP 175 [facility] [address] [place] [address] 08/30/2024 10:00 AM EDT Appointment Radiology Department - [address] [phone] 12/05/2024 3:45 PM EDT Office Visit Nephrology - [address] [phone] Vega Navarro MD [address] [facility] [address] [place] [phone] 02/04/2025 9:00 AM EST Office Visit Bariatric Surgery - [place] [address] [facility] [address] [place] [phone] Torrey Moreno MD 175 [facility] [address] [place] [address] Health Maintenance Due Date Last Done Comments Diabetes: Annual Retina Eye Exam 12/29/1965 RSV Immunization Patients 60+ Years Old (1 - Risk 60-74 years 1-dose series) 2015 Depression Screening 03/05/2022 Falls Risk Assessment 03/05/2022 [...] 06/29/2023 Diabetes: Annual GFR (Glomerular Filtration Rate) 05/06/2025 05/06/2024, 01/03/2024, 06/29/2023 Hypertension/CHF/CAD Annual BMP Blood Test 05/06/2025 05/06/2024, 01/03/2024, 06/29/2023 Breast Cancer Screening 08/15/2025 08/16/19, 08/16/2023, 08/12/2022, Additional history exists Pneumococcal Vaccine: 50+ Years (3 of 3 - PCV20 or PCV21) 02/03/2026 02/03/2021, 12/21/2004 Cervical Cancer Screening: HPV 04/28/2026 04/28/2021 Cholesterol [...] patient's age to complete this topic Meningococcal B Vacine Aged Out No lo nger eligible based on patient's age to complete this topic RSV Immunization Patients Under 20 months Aged Out No longer eligible based on patient's age to complete this topic Varicella Vaccines Aged Out No longer eligible based on patient's age to complete this topic Procedures Procedure Name Priority Date/Time Associated Diagnosis Comments CLOSTRIDIUM DIFFICILE TOXIN Routine 05/08/2024 6:00 AM EST Diarrhea, unspecified GASTROINTESTINAL PATHOGENS BY PCR Routine 05/08/2024 6:00 AM EST Diarrhea, unspecified COMPREHENSIVE METABOLIC PANEL Routine 05/06/2024 6:41 AM EST Other mcc (current) drug therapy COMPLETE BLOOD COUNT Routine 05/06/2024 6:41 AM EST Other terminal 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 SCREENING MAMMOGRAPHY BI 2-VIEW BREAST INC CAD Routine 08/16/2023 4:01 PM EDT Encounter for screening mammogram for malignant neoplasm of breast URINE ALBUMIN CREATININE RATIO Routine 06/29/2023 HEMOGLOBIN A1C Routine 06/29/2023 LIPID PANEL Routine 06/29/2023 DIABETES FOOT EXAM Routine 04/10/2023 DXA BONE DENSITY STUDY 1+ SITS AXIAL SKEL Routine 08/11/2021 9:20 AM EDT Encounter for gynecological examination (general) (routine) without abnormal findings HM HPV Routine 04/28/2021 COLONOSCOPY Routine 02/16/2021 HEPATITIS C SCREENING Routine 12/07/2020 from Last 3 Months or Most Recently Relevant to Health Maintenance Results * (ABNORMAL) Gastrointestinal pathogens molecular study (05/08/2024 6:00 AM EST) Campylobacter Detection by PCR Not Detected Not Detected LAB MICROBIOLOGY METHOD 5 12:46 PM EST [facility] Plesiomonas shigelloides Detection by PCR Not Detected Not Detected LAB MICROBIOLOGY METHOD 5 12:46 PM EST [facility] Salmonella Detection by PCR Not Detected Not Detected LAB MICROBIOLOGY METHOD 5 12:46 PM [facility] Vibrio Detection by PCR Not Detected Not Detected LAB MICROBIOLOGY METHOD 5 12:46 PM [facility] Vibrio cholerae Detection by PCR Not Detected Not Detected LAB MICROBIOLOGY METHOD 5 12:46 PM [facility] Yersinia enterocolitica Detection by PCR Not Detected Not Detected LAB MICROBIOLOGY METHOD 5 12:46 PM [facility] Enteroaggregative E coli EAEC Detection by PCR Not Detected Not Detected LAB MICROBIOLOGY METHOD 5 12:46 PM [facility] Enteropathogenic E coli EPEC Detection Not Detected Not Detected LAB MICROBIOLOGY METHOD 5 12:46 PM [facility] Enterotoxigenic E coli ETEC LTST Detection Not Detected Not Detected LAB MICROBIOLOGY METHOD 5 12:46 PM [facility] Shiga-like toxin producing E coli STEC STX1 STX2 Det Not Detected Not Detected LAB MICROBIOLOGY METHOD 5 12:46 PM [facility] Shigella Enteroinvasive E coli EIEC Detection Not Detected Not Detected LAB MICROBIOLOGY METHOD 5 12:46 PM [facility] Cryptosporidium Detection by PCR Not Detected Not Detected LAB MICROBIOLOGY METHOD 5 12:46 PM [facility] Cyclospora cayetanensis Detection by PCR Not Detected Not Detected LAB MICROBIOLOGY METHOD 5 12:46 PM [facility] Entamoeba histolytica Detection by PCR Not Detected Not Detected LAB MICROBIOLOGY METHOD 5 12:46 PM [facility] Giardia lamblia Detection by PCR Not Detected Not Detected LAB MICROBIOLOGY METHOD 5 12:46 PM [facility] Adenovirus F 40 41 Detection by PCR Not Detected Not Detected LAB MICROBIOLOGY METHOD 5 12:46 PM EST [facility] Astrovirus Detection by PCR Not Detected Not Detected LAB MICROBIOLOGY METHOD 5 12:46 PM [facility] Norovirus GI GII Detection by PCR Detected(A ) Not Detected LAB MICROBIOLOGY METHOD 5 12:46 PM EST [facility] Sapovirus Detection by PCR Not Detected Not Detected LAB MICROBIOLOGY METHOD 5 12:46 PM [facility] Rotavirus A Detection by PCR Not Detected Not Detected LAB MICROBIOLOGY METHOD 5 12:46 PM [facility] Stool Rectum structure / Unknown [...] MICROBIOLOGY - GENERAL ORDER CHELA Final Result [facility] [address] [place] [address], * Clostridium difficile toxin (05/08/2024 6:00 AM EST) Clostridium difficile GDH Antigen Negative Negative 05/08/2024 12:02 PM [facility] C difficile Toxins A+B, EIA Negative Negative 05/08/2024 12:02 PM [facility] Comment:NEGATIVE FOR TOXIN P RODUCING CLOSTRIDIOIDES DIFFICILE, NO ADDITIONAL TESTING IS NECESSARY. Stool Rectum structure / Unknown 05/08/2024 6:00 AM EST 05/08/2024 11:43 AM EST us Niels Retana MD LAB MICROBIOLOGY - GENERAL ORDER CHELA Final Result [facility] [address] [place] [address], * (ABNORMAL) Complete blood count (05/06/2024 6:41 AM EST) WBC 12.0(H) 4.8 - 10.8 K/mcL LAB HEMETOLOGY METHOD 05/06/2024 1:39 PM [facility] RBC 3.60(L) 3.80 - 4.80 M/mcL LAB HEMETOLOGY METHOD 05/06/2024 1:39 PM [facility] Hemoglobin 10.1(L) 11.5 - 16.0 g/dL LAB HEMETOLOGY METHOD 05/06/2024 1:39 PM [facility] Hematocrit 32.4(L) 35.0 - 47.0 % LAB HEMETOLOGY METHOD 05/06/2024 1:39 PM [facility] MCV 90.5 79.0 - 98.0 FL LAB HEMETOLOGY METHOD 05/06/2024 1:39 PM [facility] MCH 28.2 27.0 - 32.0 pcg LAB HEMETOLOGY METHOD 05/06/2024 1:39 PM [facility] MCHC 31.2(L) 32.0 - 37.0 g/dL LAB HEMETOLOGY METHOD 05/06/2024 1:39 PM [facility] RDW 15.0 11.0 - 15.0 % LAB HEMETOLOGY METHOD 05/06/2024 1:39 PM [facility] Platelets 349 130 - 400 K/mcL LAB HEMETOLOGY METHOD 05/06/2024 1:39 PM EST [facility] MPV 10.1 7.0 - 11.0 FL LAB HEMETOLOGY METHOD 05/06/2024 1:39 PM EST [facility] NRBC 0.0 <1.0 % LAB HEMETOLOGY METHOD 05/06/2024 1:39 PM [facility] NRBC Absolute 0.00 <0.10 K/mcL LAB HEMETOLOGY METHOD 05/06/2024 1:39 PM EST [facility] Blood Venous blood specimen / Unknown Venipuncture / Unknown 05/06/2024 6:41 AM EST 05/06/2024 12:07 PM EST us Niels Retana MD LAB BLOOD ORDERABLES Final Resul t [facility] [address] [place] [address], * (ABNORMAL) Comprehensive metabolic panel (05/06/2024 6:41 AM EST) Sodium 141 133 - 145 mmol/L LAB CHEMISTRY METHOD 05/06/2024 2:03 PM [facility] Potassium 3.6 3.5 - 5.5 mmol/L LAB CHEMISTRY METHOD 05/06/2024 2:03 PM [facility] Chloride 107 96 - 110 mmol/L LAB CHEMISTRY METHOD 05/06/2024 2:03 PM [facility] CO2 26 21 - 32 mmol/L LAB CHEMISTRY METHOD 05/06/2024 2:03 PM [facility] Anion Gap 8 3 - 11 LAB CHEMISTRY METHOD 05/06/2024 2:03 PM [facility] Glucose 108(H) 70 - 100 mg/dL LAB CHEMISTRY METHOD 05/06/2024 2:03 PM [facility] BUN 14 5 - 25 mg/dL LAB CHEMISTRY METHOD 05/06/2024 2:03 PM [facility] Creatinine 0.85 0.50 - 1.10 mg/dL LAB CHEMISTRY METHOD 05/06/2024 2:03 PM [facility] eGFR 75 >=60 mL/min/1. 73m2 LAB CHEMISTRY METHOD 05/06/2024 2:03 PM [facility] Comment:Calculation based on the??Chronic Kidney Disease Epidemiology Collaboration (CKD-EPI) equation refit??without adjustment for race. BUN/Creatinine Ratio 16.5 LAB CHEMISTRY METHOD 05/06/2024 2:03 PM [facility] Calcium 8.7 8.5 - 10.5 mg/dL LAB CHEMISTRY METHOD 05/06/2024 2:03 PM [facility] AST (SGOT) 35 10 - 42 unit/L LAB CHEMISTRY METHOD 05/06/2024 2:03 PM [facility] ALT (SGPT) 37 10 - 60 unit/L LAB CHEMISTRY METHOD 05/06/2024 2:03 PM [facility] Alkaline Phosphatase 403(H) 42 - 121 unit/L LAB CHEMISTRY METHOD 05/06/2024 2:03 PM [facility] Total Protein 5.8(L) 6.0 - 8.0 g/dL LAB CHEMISTRY METHOD 05/06/2024 2:03 PM [facility] Albumin 2.4(L) 3.2 - 5.0 g/dL LAB CHEMISTRY METHOD 05/06/2024 2:03 PM [facility] Total Bilirubin 0.5 0.0 - 1.4 mg/dL LAB CHEMISTRY METHOD 05/06/2024 2:03 PM [facility] Blood Venous blood specimen / Unknown Venipuncture / Unknown 05/06/2024 6:41 AM EST 05/06/2024 12:07 PM EST us Niels Retana MD LAB BLOOD ORDERABLES Final Resul t [facility] [address] [place] [address], * SCREENING MAMMOGRAPHY BI 2-VIEW BREAST INC [...] BI-RADS: Category 2: Benign Procedure Note Sadia Sanedrs MD - 11/13/2023 This is a summary [...] in 12 months. BI-RADS: Category 2: Benign Result [facility] Ayan Clayton MD IMG XR PROCEDURES Final Result * Urine Albumin Creatinine Ratio (06/29/2023) Pathologist [facility] Urine Albumin Creatinine Ratio ABSTRACTED Result [facility] HEALTH MAINTENANCE Final Result * Hemoglobin A1c (06/29/2023) [facility] Hemoglobin A1C 5.2 <=6.5 % Blood Venous blood specimen / Unknown Result [facility] LAB BLOOD ORDERABLES Fely l Result * Lipid panel (06/29/2023) [facility] LDL/HDL Ratio 2 0 - 4 Triglycerides 142 0 - 150 mg/dL Cholesterol 172 0 - 200 mg/dL HDL 79 >=40 mg/dL LDL Cholesterol 65 0 - 100 mg/dL Blood Venous blood specimen / Unknown Result [facility] LAB BLOOD ORDERABLES Fely l Result * Diabetes Foot Exam (04/10/2023) Pathologist [facility] Diabetes: Annual Foot Exam ABSTRACTED Result [facility] HEALTH MAINTENANCE Final Result * DXA BONE DENSITY STUDY 1+ SITS AXIAL [...] bone mineral density by WHO criteria. The [facility] Department of Internal Medicine recommends using [...] alternative screening schedule based on albert Kincaid., [facility] April 14, 2011 for patients with [...] bone mineral density by WHO criteria. The [facility] Department of Internal Medicine recommendsusing National [...] alternative screening schedule based on albert K[place]aid., [place] for patients with osteopenia (based on hip BMD T-score) is as follows: * advanced osteopenia (T scores -2.00 to -2.49), BMD testing every year * moderate osteopenia (T scores -1.50 to -1.99), BMD testing every 5years mild osteopenia or normal BMD (T scores -1.50 and higher), BMD testingevery 15 years Lemuel Yang MD IMG DXA PROCEDURES Fely l Result * Cervical Cancer Screening: HPV (04/28/2021) [facility] Cervical Cancer Screening: HPV negative,a bstracted Historical Provider HEALTH MAINTENANCE Final Result * Colonoscopy (02/16/2021) [facility] Colonoscopy no interpretation , abstracted Anatomical Region Laterality Modality Other Historical Provider HEALTH MAINTENANCE Final Result * Hepatitis C Screening (12/07/2020) [facility] Hepatitis C Screening ABSTRACTED Historical Provider HEALTH MAINTENANCE Final Result from Last 3 Months or Most Recently Relevant to Health Maintenance Additional Health Concerns Infection Onset Date Last Indicated Norovirus 05/08/2024 05/08/2024 Insurance [employer] MEDICARE Member Subscriber Plan / Payer (Ef fective 2023-Present) Name:Yanet King Relation to Subscriber:Self Name:Yanet King Payer ID:[id number] Group ID:[id number] Type:Not on file Address: [address] [place] [id number] MEDICAID - [place] [facility] CUSTODIAL OPTIONS Advance Directives Documents on File Type Date Recorded 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
--- OUTSIDE RECORDS SUMMARY | 2024-05-16 15:31 | XMS_ITS | Encounter Summary ---
Author Organization [facility] Address [address] [place] [address] Care Team Providers Care Pe Electrical Engineer Name Role Phone Ayan Clayton MD Primary Care Provider [phone] Encounter Details Date Type Department Care Team Description 04/21/2021 Financial Assistant Report Medical Records [address] [place] [address] Skylar Hanna DPM Social History Tobacco Use [...] on filedocumented in this encounter Care Teams Pe Electrical Engineer Relationship Specialty Start Date End Date Ayan Clayton MD [address] [place], [place] [phone] PCP - General Internal Medicine 09/24/19 documented as of this encounter
--- OUTSIDE RECORDS SUMMARY | 2024-05-16 15:31 | XMS_ITS | Encounter Summary ---
Author Organization [facility] Address [address] [place] [address] Care Team Providers Care Certified Industrial Hygienist Name Role Phone Ayan Clayton MD Primary Care Provider [phone] Encounter Details Date Type Department Care Team Description 03/11/2021 School Transportation Supervisor Report Medical Records [address] [place] [address] Skylar Hanna DPM Social History Tobacco Use [...] filedocumented in this encounter Care Teams Certified Industrial Hygienist Relationship Specialty Start Date End Date Ayan Clayton MD [address] [place], [place] [phone] PCP - General Internal Medicine 09/24/19 documented as of this encounter
--- OUTSIDE RECORDS SUMMARY | 2024-05-16 15:31 | XMS_ITS | Encounter Summary ---
Author Organization [facility] Address [address] [place] [address] Care Team Providers Care Vp Product Management Name Role Phone Ayan Clayton MD Primary Care Provider [phone] Encounter Details Date Type Department Care Team Description 11/20/2020 Hospital Medical Records [address] [place] [address] Rell Leavitt Social History Tobacco Use Types [...] on filedocumented in this encounter Care Teams Vp Product Management Relationship Specialty Start Date End Date Ayan Clayton MD [address] [place], [place] [phone] PCP - General Internal Medicine 09/24/19 documented as of this encounter
--- OUTSIDE RECORDS SUMMARY | 2024-05-16 15:31 | XMS_ITS | Encounter Summary ---
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 Order faxed to [facility]. Office books with patient and will notify us with appointment. documented in this encounter Plan of Treatment Not on file documented as of this encounter Visit Diagnoses Not on filedocumented in this encounter Care Teams Nuclear Operator Relationship Specialty Start Date End Date Daniel Mota MD PCP - General Internal Medicine 10/20/16 09/23/19 Ayan Clayton MD [address] [place] [address] PCP - General Internal Medicine 09/24/19 documented as of this encounter
--- OUTSIDE RECORDS SUMMARY | 2024-05-16 15:31 | XMS_ITS | Encounter Summary ---
Author Organization [facility] Address [address] [place] [address] Care Team Providers Care Blast Hole Driller Name Role Phone Daniel Mota MD Primary Care Provider Unavail Victor Manuel Yu MD Primary Care Provider Unava ilable Daniel Mota MD Primary Care Provider Unavail Ayan Pulliam MD Primary Care Provider [phone] Victor Manuel Gonzales MD Primary Care Provider Unava ilmaximino Encounter Details Date Type Department Care Team Description 11/04/2010 Clinical Safety Specialist Report Medical Records [address] [place] [address] Elgin Russell MD Social History Tobacco Use [...] on filedocumented in this encounter Care Teams Blast Hole Driller Relationship Specialty Start Date End Date Daniel Mota MD PCP - General 07/27/1994 12/22/15 Victor Manuel Gonzales MD PCP - General Internal Medicine 07/22/16 10/19/16 Daniel Mota MD PCP - General Internal Medicine 10/20/16 09/23/19 Ayan Clayton MD [address] [place] [address] PCP - General Internal Medicine 09/24/19 Victor Manuel Gonzales MD PCP - General 12/23/15 07/21/16 documented as of this encounter
--- OUTSIDE RECORDS SUMMARY | 2024-05-16 15:31 | XMS_ITS | Encounter Summary ---
Author Organization [facility] Address [address] [place] [address] Care Team Providers Care Pattern Chart Writer Name Role Phone Ayan Clayton MD Primary Care Provider [phone] Encounter Details Date Type Department Care Team Description 11/03/2020 Telephone Adult Medicine [address] [phone] Ayan Clayton MD [address] [place] [address] [phone] Social History Tobacco Use Types Packs/Day Years [...] on filedocumented in this encounter Care Teams Pattern Chart Writer Relationship Specialty Start Date End Date Ayan Clayton MD [address] [place] [phone] PCP - General Internal Medicine 09/24/19 documented as of this encounter
--- OUTSIDE RECORDS SUMMARY | 2024-05-16 15:31 | XMS_ITS ---
Author Organization [facility] Address [address] [phone] Care Team Providers Care Men'S Leather Dress Belt Maker Name Role Phone Ayan Clayton Primary Care Provider PATRICA Palacios Unavailable [phone] REASON FOR VISIT Billing Encounters Encounter Location Date Provider Diagnosis [facility] [address] [phone] 12/05/2022 PATRICA DOYLE Plan Of Treatment No Information Progress Notes * Yanet KINGDOB:1955 (66 yo F)Acc No.[id number]:12/05/2022 Patient:?Yanet King :1955???Age:66 Y???Sex:Female Address:[address], [place], [address] * true * Date:? Generated for Matti carmella/Grabiel/eTransmitting on:?05/16/2024 03:31 PM EST
--- OUTSIDE RECORDS SUMMARY | 2024-05-16 15:32 | XMS_ITS | Encounter Summary ---
Author Organization [facility] Address [address] [place] [address] Care Team Providers Care Circular Stuffer Name Role Phone Ayan Clayton MD Primary Care Provider [phone] Encounter Details Date Type Department Care Team Description 10/11/2022 Hammer Mill Operator Report Medical Records [address] [place] [address] Alexis Campbell MD Social History Tobacco Use [...] on filedocumented in this encounter Care Teams Circular Stuffer Relationship Specialty Start Date End Date Ayan Clayton MD [address] [place] [address] PCP - General Internal Medicine 09/24/19 documented as of this encounter
--- OUTSIDE RECORDS SUMMARY | 2024-05-16 15:32 | XMS_ITS | Encounter Summary ---
Author Organization [facility] Address [address] [place] [address] Care Team Providers Care Irrigation Service Technician Name Role Phone Daniel Mota MD Primary Care Provider Unavail Victor Manuel Yu MD Primary Care Provider Unava ilable Daniel Mota MD Primary Care Provider Unavail Ayan Pulliam MD Primary Care Provider [phone] Victor Manuel Gonzales MD Primary Care Provider Justinava jaxson Encounter Details Date Type Department Care Team Description 07/01/2011 Controlled Substance Plan Medical Records [address] [place] [address] Abstract, Provider Social History Tobacco Use Types [...] filedocumented in this encounter Care Teams Irrigation Service Technician Relationship Specialty Start Date End Date Daniel Mota MD PCP - General 07/27/1994 12/22/15 Victor aMnuel Gonzales MD PCP - General Internal Medicine 07/22/16 10/19/16 Daniel Mota MD PCP - General Internal Medicine 10/20/16 09/23/19 Ayan Clayton MD [address] [place] [address] PCP - General Internal Medicine 09/24/19 Victor Manuel Gonzales MD PCP - General 12/23/15 07/21/16 documented as of this encounter
--- OUTSIDE RECORDS SUMMARY | 2024-05-16 15:32 | XMS_ITS | Encounter Summary ---
Author Organization [facility] Address [address] [place] [address] Care Team Providers Care Production Sorter Name Role Phone Daniel Mota MD Primary Care Provider Unavail Victor Manuel Yu MD Primary Care Provider Unava ilable Daniel Mota MD Primary Care Provider Unavail Ayan Pulliam MD Primary Care Provider [phone] Victor Manuel Gonzales MD Primary Care Provider Unava ilmaximino Encounter Details Date Type Department Care Team Description 07/07/2011 Licensed Land Surveyor Report Medical Records [address] [place] [address] Elgin Russell MD Social History Tobacco Use [...] filedocumented in this encounter Care Teams Production Sorter Relationship Specialty Start Date End Date Daniel Mota MD PCP - General 07/27/1994 12/22/15 Victor Manuel Gonzales MD PCP - General Internal Medicine 07/22/16 10/19/16 Daniel Mota MD PCP - General Internal Medicine 10/20/16 09/23/19 Ayan Clayton MD [address] [place] [address] PCP - General Internal Medicine 09/24/19 Victor Manuel Gonzales MD PCP - General 12/23/15 07/21/16 documented as of this encounter
--- OUTSIDE RECORDS SUMMARY | 2024-05-16 15:32 | XMS_ITS | Encounter Summary ---
Author Organization [facility] Address [address] [place] [address] Care Team Providers Care Sand Cutting Machine Operator Name Role Phone Ayan Clayton MD Primary Care Provider [phone] Reason for Visit * Reason Comments E-prescribe Rx Request Encounter Details Date Type Department Care Team Description 08/28/2022 Refill Gastroenterology - [place] [address] [facility] [address] [place] [address] Jerrod Joe PA-C E-prescribe Rx [...] filedocumented in this encounter Care Teams Sand Cutting Machine Operator Relationship Specialty Start Date End Date Ayan Clayton MD [address] [place] [address] PCP - General Internal Medicine 09/24/19 documented as of this encounter
--- OUTSIDE RECORDS SUMMARY | 2024-05-16 15:32 | XMS_ITS | Encounter Summary ---
Author Organization [facility] Address [address] [place] [address] Care Team Providers Care Laboratory Mechanical Technician Name Role Phone Daniel Mota MD Primary Care Provider Unavail able Ayan Clayton MD Primary Care Provider [phone] Encounter Details Date Type Department Care Team Description 03/05/2018 Alliance Consultant Report Medical Records [address] Social History Tobacco Use Types Packs/Day [...] on filedocumented in this encounter Care Teams Laboratory Mechanical Technician Relationship Specialty Start Date End Date Daniel Mota MD PCP - General Internal Medicine 10/20/16 09/23/19 Ayan Clayton MD [address] [place] [address] PCP - General Internal Medicine 09/24/19 documented as of this encounter
--- OUTSIDE RECORDS SUMMARY | 2024-05-16 15:32 | XMS_ITS | Encounter Summary ---
Author Organization [facility] Address [address] [place] [address] Care Team Providers Care Jewelry Finisher Name Role Phone Daniel Mota MD Primary Care Provider Unavail Victor Manuel Yu MD Primary Care Provider Unava ilable Daniel Mota MD Primary Care Provider Unavail Ayan Pulliam MD Primary Care Provider [phone] Victor Manuel Gonzales MD Primary Care Provider Justinava jaxson Encounter Details Date Type Department Care Team Description 10/03/2012 Night Triage Doc Medical Records [address] [place] [address] Abstract, Provider Social History Tobacco Use Types [...] on filedocumented in this encounter Care Teams Jewelry Finisher Relationship Specialty Start Date End Date Daniel Mota MD PCP - General 07/27/1994 12/22/15 Victor Manuel Gonzales MD PCP - General Internal Medicine 07/22/16 10/19/16 Daniel Mota MD PCP - General Internal Medicine 10/20/16 09/23/19 Ayan Clayton MD [address] [place] [address] PCP - General Internal Medicine 09/24/19 Victor Manuel Gonzales MD PCP - General 12/23/15 07/21/16 documented as of this encounter
--- OUTSIDE RECORDS SUMMARY | 2024-05-16 15:32 | XMS_ITS | Encounter Summary ---
Author Organization [facility] Address [address] [place] [address] Care Team Providers Care Extermination Inspector Name Role Phone Ayan Clayton MD Primary Care Provider [phone] Encounter Details Date Type Department Care Team Description 03/08/2023 Overedge Sewer Report Medical Records [address] [place] [address] Blu Us I., PH.D Social History Tobacco [...] on filedocumented in this encounter Care Teams Extermination Inspector Relationship Specialty Start Date End Date Ayan Clayton MD [address] [place] [address] PCP - General Internal Medicine 09/24/19 documented as of this encounter
--- OUTSIDE RECORDS SUMMARY | 2024-05-16 15:32 | XMS_ITS | Encounter Summary ---
Author Organization [facility] Address [address] [place] [address] Care Team Providers Care Third Officer Name Role Phone Daniel Mota MD Primary Care Provider Ayan Rubalcava MD Primary Care Provider [phone] Reason for Visit * Reason Onset Date Comments refill request 10/27/2017 Encounter Details Date Type Department Care Team Description 10/27/2017 Refill Podiatry - [place] [address] [place] [address] Skylar Hanna DPM refill request Social History [...] / Plan: [place] / Product Type: MEDICARE [id number] documented in this encounter Plan of Treatment Not on file documented as of this encounter Visit Diagnoses Not on filedocumented in this encounter Care Teams Third Officer Relationship Specialty Start Date End Date Daniel Mota MD PCP - General Internal Medicine 10/20/16 09/23/19 Ayan Clayton MD [address] [place] [address] PCP - General Internal Medicine 09/24/19 documented as of this encounter
--- OUTSIDE RECORDS SUMMARY | 2024-05-16 15:32 | XMS_ITS | Encounter Summary ---
Author Organization [facility] Address [address] [place] [address] Care Team Providers Care Concrete Pipe Making Machine Operator Name Role Phone Ayan Clayton MD Primary Care Provider [phone] Encounter Details Date Type Department Care Team Description 03/28/2023 Clerk General Office Report Medical Records [address] [place] [address] Rell Leavitt Social History Tobacco Use Types [...] filedocumented in this encounter Care Teams Concrete Pipe Making Machine Operator Relationship Specialty Start Date End Date Ayan Clayton MD [address] [place], [place] [id number] PCP - General Internal Medicine 09/24/19 documented as of this encounter
--- OUTSIDE RECORDS SUMMARY | 2024-05-16 15:32 | XMS_ITS | Encounter Summary ---
Author Organization [facility] Address [address] [place] [address] Care Team Providers Care Watch Case Polisher Name Role Phone Ayan Clayton MD Primary Care Provider [phone] Encounter Details Date Type Department Care Team Description 12/21/2022 Orders Only Medical Records [address] [place] [address] Abstract, Provider Social History Tobacco Use Types [...] filedocumented in this encounter Care Teams Watch Case Polisher Relationship Specialty Start Date End Date Ayan Clayton MD [address] [place] [address] PCP - General Internal Medicine 09/24/19 documented as of this encounter
== END 2024-05-16 14:48 | disposition home or self-care (01) ==
LOC: HO.HOS 14:18
PROVIDERS: PCP Hospitalist; Visit Provider Physician Assistant
DX: Z96.641 Presence of right artificial hip joint (principal)
CPT/HCPCS: 99024

== ENCOUNTER → 2024-05-16 14:18 | Outpatient (BNVA) | payer OTHER, SELFPAY | PROVIDERS: PCP Hospitalist; Visit Provider Physician Assistant | DX: Z47.1 Aftercare following joint replacement surgery (principal); Z96.641 Presence of right artificial hip joint | CPT/HCPCS: 99212 ==

== ENCOUNTER 2024-06-13 08:40 | Outpatient (REF) | payer OTHER, SELFPAY ==
--- NOTE | ~2024-06-13 | XR_ITS ---
EXAMINATION: XR PELVIS 1-2 VIEWS HISTORY: M25.559 - Pain in unspecified hip COMPARISON: Comparison is made with the prior examination dated 04/30/2024. FINDINGS: Two AP views of the pelvis are submitted. The patient is status post bilateral total hip arthroplasty. The distal portion of the left femoral stem component is excluded. The hardware is intact. There is no radiographic evidence of loosening of the visualized portions of the hardware. There is no fracture or dislocation. The patient is status post fusion of the lower lumbar spine. A spinal stimulator is noted in place. XR/XR pelvis 1-2V IMPRESSION: Status post bilateral total hip arthroplasty. Electronically signed by: Cr Hays MD 06/13/2024 03:26 PM EDT
== END 2024-06-13 08:41 | disposition home or self-care (01) ==
LOC: HO.HOSX 08:40
PROVIDERS: Visit Provider Orthopaedic Surgery
DX: Z96.643 Presence of artificial hip joint, bilateral (principal)
CPT/HCPCS: 72170; 99212

== ENCOUNTER 2024-06-13 09:36 | Outpatient (AMB) | payer OTHER, SELFPAY ==
--- NOTE | 2024-06-13 09:41 | MHC.OFFVIS ---
Intake Visit Reasons: 6WKPO:R CHINYERE w/NE 05/01/24 (7wk, NE STEFF on 6wk markr) Intake Note: Yanet is a 68 year old female who presents today for a post op appointment 6 weeks s/p right CHINYERE 05/01/24 NE. Patient reports that she is doing very well, she has no pain and no concerns at this time. Allergies Sulfa (Sulfonamide Antibiotics) Allergy (Severe, Verified 06/13/24 09:54) throat swelling metformin Adverse Reaction (Intermediate, Verified 06/13/24 09:54) diarrhea semaglutide [From Ozempic] Adverse Reaction (Intermediate, Verified 06/13/24 09:54) pancreatitis HPI HPI 6WKPO:R CHINYERE w/NE 05/01/24 (7wk, NE STEFF on 6wk markr): Details: Yanet is a 68 year old female who presents today for a post op appointment 6 weeks s/p right CHINYERE 05/01/24 NE. Patient reports that she is doing very well, she has no pain and no concerns at this time. [facility] Medical History (Updated 05/11/24 @ 00:01 by Background Daemon) Metabolic acidosis Hypertension Hypokalemia Hypernatremia DVT (deep venous thrombosis) History of kidney infection (~08/2023) DVT (deep venous thrombosis) Diabetes Elevated blood pressure reading with diagnosis of hypertension Abdominal hernia Asthma Arthritis Osteoarthritis (arthritis due to wear and tear of joints) COVID-19 vaccine series completed Full dentures Arthritis of left hip Low back pain Liver cyst COPD (chronic obstructive pulmonary disease) Elevated cholesterol Surgical History (Updated 05/11/24 @ 00:01 by Background Daemon) S/P insertion of IVC (inferior vena caval) filter (02/07/24) History of total left hip arthroplasty (08/29/23) Hx of gastric bypass Hx of ankle fusion Status post insertion of nerve stimulator Hx of colonoscopy Hx of carpal tunnel repair History of back surgery Social History Household Members: None Housing: Condominium Are you a primary doggy daycare activities director to a significant other at home: No Do you presently have visiting nurse or other home services: No 75 years or older and lives alone: No Comment: pt rings appropriately Patient Tobacco Use Status: Former Tobacco user Tobacco use type: Cigarette Cigarettes Per Day: 60 Years Smoked: quit 15 years ago Second Hand Smoke Exposure: No service: No Physical Exam Extrem Other: No pain with hip ROM Walking with min use of walker mild Trendelenberg gait Results Reviewed Results Reviewed: I personally reviewed relevant radiographs. Right CHINYERE in expected post operative position with no hardware complications or evidence of loosening Left CHINYERE in unchanged position with healed fracture Assessment & Plan Assessment & Plan (1) S/P total right hip arthroplasty: Code(s): Z96.641 - Presence of right artificial hip joint Category: Surgical Plan: Overall Yanet is doing extremely well. She may wean off walker as tolerated. F/u 6 weeks. Orders: Orders XR pelvis 1-2V 06/13/24 M25.559 - Pain in unspecified hip Coding Level of Care Code Global (83771) Diagnoses S/P total right hip arthroplasty Z96.641
--- OUTSIDE RECORDS SUMMARY | 2024-06-13 10:37 | XMS_ITS | Encounter Summary ---
Author Organization [facility] Address [address] [place] [address] Care Team Providers Care Master Automotive Technician Name Role Phone Niels Retana MD Primary Care Provider [phone] Reason for Visit * Reason Comments COPD Mixed. Emphysema Bronchitis Encounter Details Date Type Department Care Team (Latest Contact Info) Description 06/12/2024 8:50 AM EDT Office Visit Pulmonolgy - [place] [address] [facility] [address] [place] [phone] Jil Freeman NP [address] [place] [address] Centrilobular emphysema (CMS/HCC) (Primary Dx); Nocturnal hypoxemia; Snoring; Severe persistent asthma without complication (CMS/HCC); Seasonal allergic rhinitis due to pollen Social History Tobacco Use Types Packs/Day Years [...] on file documented as of this encounter Last Filed Vital Signs Vital Sign Reading Time Taken Comments Blood Pressure 104/62 06/12/2024 9:07 AM EDT Pulse 70 06/12/2024 9:07 AM EDT Temperature 36.3 ??C (97.4 ??F) 06/12/2024 9:07 AM ED T Respiratory Rate 16 06/12/2024 9:07 AM EDT Oxygen Saturation 93% 06/12/2024 9:07 AM EDT Inhaled Oxygen Concentration - - Weight 58.5 kg (129 lb) 06/12/2024 9:07 AM EDT Height 151.1 cm (4' 11.5 ) 06/12/2024 9:07 AM ED T Body Mass Index 25.62 06/12/2024 9:07 AM EDT documented in this encounter Ordered Prescriptions Prescription Sig Dispense Quantity Refills Last Filled Start Date End Date triamcinolone (NASACORT) 55 mcg nasal inhalerIndications :Seasonal allergic rhinitis due to pollen Administer 1 spray into each nostril 1 (one) time each day. 10.8 mL 2 06/12/2024 fexofenadine (Griselda Allergy) 180 mg tabletIndications: Severe persistent asthma without complication (CMS/HCC),Seasonal allergic rhinitis due to pollen Take 1 tablet (180 mg total) by mouth 1 (one) time each day. 30 each 2 06/12/2024 documented in this encounter Plan of Treatment Upcoming Encounters Date Type Department Care Team (Late st Contact Info) Description 08/30/2024 10:00 AM EDT Appointment Radiology Department - [address] [phone] 12/05/2024 3:45 PM EDT Office Visit Nephrology - [address] [phone] [place] Navarro MD [address] [facility] [address] [place] [phone] 02/04/2025 9:00 AM EST Office Visit Bariatric Surgery - [place] [address] [facility] [address] [place] [phone] Torrey Moreno MD [address] [facility] [address] [place] [address] 06/12/2025 9:10 AM EDT Office Visit Pulmonolgy - [place] [address] [facility] [address] [place] [phone] Jil Freeman NP [address] [place] [address] Scheduled Orders Name Type Priority Associated Diagnoses Orde r Schedule XR Chest 2 Views Imaging Routine Seasonal allergic rhinitis due to pollen Expected: 06/12/2024, Expires: 06/12/2025 documented as of this encounter Visit Diagnoses Diagnosis Centrilobular emphysema (CMS/HCC)- Primary Nocturnal hypoxemia Snoring Other dyspnea and respiratory abnormality Severe persistent asthma without complication (CMS/HCC) Seasonal allergic rhinitis due to pollen Encounter for screening mammogram for breast cancer documented in this encounter Discontinued Medications Medication Sig Discontinue Reason Start Date End Da te cetirizine (ZyrTEC) 10 mg tablet Take 1 tablet (10 mg total) by mouth 1 (one) time each day. Ineffective 07/05/2023 06/12/2024 triamcinolone acetonide (KENALOG-40) 40 mg/mL injection Inject 1 mL into the articular space once for 1 dose. 03/10/2023 06/12/2024 documented as of this encounter Additional Health Concerns Infection Onset Date Last Indicated Resolved Time Norovirus 05/08/2024 05/08/2024 documented as of this encounter Care Teams Master Automotive Technician Relationship Specialty Start Date End Date Niels Retana MD [address] [facility] [phone] PCP - General Family Medicine 05/06/24 documented as of this encounter
--- OUTSIDE RECORDS SUMMARY | 2024-06-13 10:37 | XMS_ITS | Continuity of Care Document ---
Author Organization [facility] [employer] [facility], [facility] Address [address] [place] [address] Care Team Providers Care Spikemaking Supervisor Name Role Phone [facility] F[facility] OTHER GARETT ALFARO Primary Care Provider Assessment Encounter Date Assessment Date Assessment LastModified by Organization Details LastModified Time 05/21/2024 05/21/2024 45 minutes spent on coordination of discharge. [email or web address] Not available 05/21/2024 10:30:03 Plan of Treatment Reminders Order Date Submit Date Provider Last Modified By Organization Details Last Modified Time Details Appointments None record ed. Lab None record ed. Referral None record ed. Procedures None record ed. Surgeries None record ed. Imaging None record ed. Medication Orders None record ed. Patient TargetsNo targets recorded. Patient InstructionsNo instructions recorded. Reason for Referral None Reported. Problems Name Problem SNOMED Code Status Onset Date Resolution Date Notes Provider Name and Address Organization Details Recorded Time Wound of skin 798903940 Active 2024 right hip surgical wound MICHAEL ADAIR NP [address] [facility], [address], [place], [address], [facility] [employer] [facility] 5 14:01:04 Total replacement of right hip joint Active 2024 MICHAEL ADAIR NP [address], [address], [place], [address], [facility] 5 14:02:07 Hyperlipide tayler 54301789 Active 2024 MICHAEL ADAIR NP [address], [address], [place], [address], [facility] 5 14:07:43 Gastroesoph ageal reflux disease without esophagitis 333549559 Active 2024 MICHAEL ADAIR, [employer]MENT[employer]ER [address], [address], [place], [address], [facility] 5 14:07:53 Chronic obstructive pulmonary disease 22902348 Active 2024 MICHAEL ADAIR, [employer]MENTARY SCHO[employer] TE[employer]ER [address], [address], [place], [address], [facility] 5 14:08:17 Chronic pain 65716343 Active 2024 MICHAEL ADAIR, ELEMENTARY SCHO[employer] TE[employer]ER [address], [address], [place], [address], [facility] 5 14:08:31 Mixed anxiety and depressive disorder 406725629 Active 2024 MICHAEL ADAIR, [employer]LEMENT[employer] S[employer] TE[employer]ER [address], [address], [place], [address], [facility] 5 14:08:38 Osteoarthri tis 767955733 Active 2024 MICHAEL ADAIR, ELEMENTARY SCHOOL TEACHER [address], [address], [place], [address], [facility] 5 14:12:21 Problem Notes None recorded. Medical Equipment None Reported. Allergies Allergen ID Allergen Name Allergen Category Reaction Reaction Severity Criticality Documentation Date Start Date Code Code System Note Provider Name and Address Organization Details Recorded Time 31878 Substance with sulfonami de structure and antibacte rial mechanism of action (substanc e) medicatio n Not available Not available high 05/04/20242005 76383 8003 SNOMED swell ing and diffi culty breat devonte Not Available Not Available Not Available 46422 metformin medicatio n diarrhea Not available Not available 05/04/20242016 6809 RxNorm Not Available Not Available Not Available 27042 semagluti de medicatio n Not available Not [...] Avai lable Vitals Date Recorded Body height Heart rate Respiratory rate Body temperature Oxygen saturation Oxygen saturation in Arterial blood by Pulse oximetry Systolic blood pressure Diastolic blood pressure Provider Name and Address Organization Details Last Updated DateTime 149.86 cm 60 /min 18 /min 97.5 [degF] 97 % 97 % 126 mm[Hg] 74 mm[Hg] RAHEEM ALMAGUER NP [address] [facility], [address], [place], [address], [facility] 5 10:27:38 Social History Question Answer Notes LastModified by Organizat ion Details LastModified Time Tobacco Smoking Status Former Smoker [id number], 3 ppd Vida Herrmann MD [address] [facility], [address], [place], [address], [facility] 05/06/2024 22:16:45 Do You Have An [...] Do You Have A Medical Power Of Sliver Cutter? Yes Information not available 05/06/2024 What Was [...] Time Tdap 2 completed Theresa Parveen [facility] 05/08/2024 16:05:46 Tdap 3 completed Theresa Parveen [facility] 05/08/2024 16:05:54 Td(adult) unspecified formulation 3 completed Theresa Parveen [facility] 05/08/2024 16:06:09 Pneumococcal conjugate PCV 13 1 completed Theresa [facility] 05/08/2024 16:06:29 pneumococcal polysaccharide PPV23 [address] 05/08/2024 16:06:45 influenza, unspecified formulation [address] [facility] [facility] 05/08/2024 16:07:03 influenza, unspecified formulation 4 completed Theresa Parveen [facility] 05/08/2024 16:07:17 SARS-COV-2 (COVID-19) vaccine, UNSPECIFIED 1 completed Theresa Saini [facility] 05/08/2024 16:07:38 SARS-COV-2 (COVID-19) vaccine, UNSPECIFIED 1 completed Theresanba Saini [facility] 05/08/2024 16:07:47 SARS-COV-2 (COVID-19) vaccine, UNSPECIFIED 2 completed Theresa Parveen [facility] 05/08/2024 16:07:59 SARS-COV-2 (COVID-19) vaccine, UNSPECIFIED 2 completed Theresa [facility] 05/08/2024 16:08:09 SARS-COV-2 (COVID-19) vaccine, UNSPECIFIED 3 completed Theresa [facility] 05/08/2024 16:08:20 zoster, unspecified formulation 9 completed Theresa [facility] 05/08/2024 16:08:38 zoster, unspecified formulation 0 completed Theresa [facility] 05/08/2024 16:08:46 Past Encounters Encounter ID Performer Location Encounter Start Date Encounter Closed Date Diagnosis/Indication Diagnosis SNOMED-CT Code Diagnosis ICD10 Code Diagnosis Note [id number] MICHAEL ADAIR NP [address] [address] 05/04/2024 12:51:16 05/07/2024 13:49:18 Wound of skin 677336553 T14.8XXA monitor surgical incision for any signs of infectionc hange dressing as appropriat efollowup with ortho as planned Chronic pain 95439992 G8 9.29 lido patchtizan adine 4 mg prndiclofe nac gel bidms contin 15 mg hsoxycodon e 10 mg tid Chronic ob structive pulmonary disease 32976664 J44.9 combivent prnzyrtec 10 mg dailymonit or resp status Gastroesop hageal reflux disease without esophagitis 433313500 K21.9 omeprazole 20 mg dailybicar b 650 mg bid Hyperlipidemia 41670391 E78.5 atrovastat in 20 mg daily Mixed anxi ety and depressive disorder 758673079 F41.8 cymbalta 30 mg dailypsych prn Osteoarthritis 425591900 M19.90 lido patchtizan adine 4 mg prndiclofe nac gel bidms contin 15 mg hsoxycodon e 10 mg tid [id number] Vida Herrmann MD [address] [address] 05/06/2024 18:09:41 05/16/2024 14:57:48 Chronic pain 32491497 G89.29 Meds as above.Will wean off prn oxy prior to d/c. Osteoarthritis 338984069 M15.0 Z96.643 S/P LTHR in 08/2023 and [...] as planned. Chronic ob structive pulmonary disease 40177905 J43.8 At baseline.C ontinue cetirizine 10 mg qd and combivent 2 puffs q 4 hrs prn.Monito r resp status Gastroesop hageal reflux disease without esophagitis 098913445 K21.9 No current sxs.Contin ue omeprazole 20 mg qd and sodium bicarb 650 mg BIDMonitor GI sxs. Hyperlipidemia 98627299 E78.49 Continue atorvastat in 20 mg qdMonitor labs as outpt. Mixed anxi ety and depressive disorder 115856249 F41.8 Mood good tonight.Co ntinue cymbalta 30 mg qdMonitor mood.Psych consult prn [id number] Sanaz Armenta NP [address] [address] 05/09/2024 12:04:48 05/10/2024 13:24:20 Osteoarthritis 872554782 M15.0 Z96.643 S/P LTHR in 08/2023 and [...] /U with ortho as planned. Chronic pain 67950916 G8 9.29 Meds as above.Will wean off prn oxy prior to d/c. Chronic ob structive pulmonary disease 76141818 J43.8 Continueco mbivent prnzyrtec 10 mg dailymonit or resp status Gastroesop hageal reflux disease without esophagitis 330129227 K21.9 contomepra zole 20 mg dailybicar b 650 mg bid Hyperlipidemia 23445842 E78.5 contatorva statin 20 mg daily Mixed anxi ety and depressive disorder 822525288 F41.8 contcymbal ta 30 mg dailypsych prn Wound of skin 705123756 T14.8XXA sp right hip arthroplas ty with dr annabelle mobley surgical incision for any signs of infectionc hange dressing as appropriat efollowup with ortho as planned Infection caused by Norovirus 385838940 A08.11 pt with norovirus positive stool testsympto ms with nausea and vomiting started on 05/03 progressed with diarrhea and now on 05/09 lessening. health dept updated as requested contimmodi um prnzofran 4 mg po q 6 hours prnencoura ge po fluidslabs weekly and prnisolati on precaution s as facility protocolmo nitor vs qd and prn [id number] Sanaz Armenta NP [address] [address] 05/16/2024 14:46:35 05/17/2024 16:20:21 Infection caused by Norovirus 973444204 A08.11 resolved Wound of skin 670617530 T14.8XXA sp right hip arthroplas ty with dr annabelle mobley surgical incision for any signs of infectionS he saw Ortho today on 05/16 today, with rec:therap y with glut, core, quad strengthen ing, gait training, and posterior precaution sfu with 4 weeks. Osteoarthritis 564781187 M15.0 Z96.643 S/P LTHR in 08/2023 and [...] /U with ortho as planned. Chronic pain 26017496 G8 9.29 Meds as above.Will wean off prn oxy prior to d/c. [id number] RAHEEM ALMAGUER NP [address] [address] 05/21/2024 10:26:56 05/23/2024 11:51:17 Osteoarthritis 085027401 M15.0 Z96.643 S/P R THR on 04/30/24 by robert Yeager. sally.Has worked with rehab, meeting goals for d/c home today with support of services.H ad follow up with Ortho 05/16 - no concerns, follow up requested in 4 wks.Contin ue meds for pain mgmt - tizanidine , MSER, oxycodone, lidoderm patch, diclofenac gel, and APAP.Shanice nue to monitor VS, pain, incision, CSM upon d/c home. Chronic pain 90693492 G8 9.29 Meds as above.Enco uraged to wean off prn oxycodone upon d/c home. Currently using prn doses about 2xd Chronic ob structive pulmonary disease 08656436 J43.8 At baseline.C ontinue cetirizine 10 mg qd and combivent 2 puffs q 4 hrs prn.Monito r resp status as outpt. Gastroesop hageal reflux disease without esophagitis 908819284 K21.9 No current sxs.Contin ue omeprazole 20 mg qd and sodium bicarb 650 mg BIDMonitor GI sxs. Hyperlipidemia 07895467 E78.49 Continue atorvastat in 20 mg qdMonitor labs as outpt. Mixed anxi ety and depressive disorder 687189114 F41.8 Continue cymbalta 30 mg qdMonitor mood as outpt.Psyc h consult prn Health Concerns Section Related Observation LastModified by Organization Detai ls LastModified Time None Recorded Concern Status LastModified by Organization Details LastModified Time None Recorded Payers Encounter Date Sequence Insurance Name Policy Number Policy Toribio Covered Member ID Toribio Member ID Guarantor Name 05/21/2024 1 [facility] - DOS ON OR AFTER 2022 - MEDICARE [place]VANTAGE [place] (MEDICARE REPLACEMENT/ADV ANTAGE - PPO) Yanet King [id number] Yanet King Notes Date Note Type Note Provider Name and Address Organization Details Recorded Time 05/21/2024 text/html Yanet is seen today for discharge.She is returning home today with the support of family and services. She is is a 68 yo woman, admitted to [facility] 05/03/24 from [facility] [place] for continued care and rehab after a hosp. due to a right THR for ESOA unresponsive to conservative tx.She had surgery 04/[address] Ruiz, tolerated procedure well.Post op complications -Hgb 7.4 (11 pre-op) - given 2 U PRBCs with improvement in hgb to 9.4.Hypokalemia and hypernatremia - improved with IVF and K+. Since here she has been doing well.Working with rehab, meeting goals for d/c home with support of services.Had Ortho follow up 05/16 - no new concerns - follow up in 4 wks.[facility] 05/06 stable.Her stay here was complicated by GI sx. due to norovirus, sx. now resolved.R hip pain improving.No other concerns or issues. Upon exam, Yanet is up ambulating ad mellisa with a walker in the halls. Alert, NAD, in good spirits, happy to be returning home. Has no complaints. Her PMH includes HTN, COPD/asthma overlap syndrome, OA, hx of DVT with IVC filter in place, s/p LTHR in 08/2023 with periprosthetic fx 2 wks later and surgical revision, GERD, s/p gastric sleeve in 2019, s/p several back surgeries, s/p Covid, anxiety/depression, and HLD. RAHEEM ALMAGUER NP [address] [facility], [address], [place], [address], [facility] - [facility] 05/21/2024 10:54:45 OBGyn Episode No OBEpisode recorded.
--- OUTSIDE RECORDS SUMMARY | 2024-06-13 10:37 | XMS_ITS | Encounter Summary ---
Author Organization [facility] Address [address] [place] [address] Care Team Providers Care General Medical Practitioner Name Role Phone Niels Retana MD Primary Care Provider [phone] Encounter Details Date Type Department Care Team (Late Contact Info) Description 05/06/2024 Lab Requisition [facility] - Main Lab [address] [facility] [place] [address] Niels Retana MD [address] [place] [address], [phone] Other technician terminal and repeater (current) drug therapy Social History Tobacco Use [...] Department Care Team (Late Contact Info) Description 08/30/2024 10:00 AM EDT Appointment Radiology Department - [address] [address] 12/05/2024 3:45 PM EDT Office Visit Nephrology - [place] [address] [place] [address] Vega Navarro MD [address] [facility] [address] [place] [phone] 02/04/2025 9:00 AM EST Office Visit Bariatric Surgery - [place] [address] [facility] [address] [place] [phone] Torrey Moreno MD [address] [facility] [address] [place] [address] 06/12/2025 9:10 AM EDT Office Visit Pulmonolgy - [place] [address] [facility] [address] [place] [phone] Jil Freeman NP [address] [facility] [address] [place] [address] documented as of this encounter Procedures Procedure Name Priority Date/Time Associated Diagnosis Comments COMPLETE BLOOD COUNT Routine 05/06/2024 6:41 AM EST Other fdc (current) drug therapy COMPREHENSIVE METABOLIC PANEL Routine 05/06/2024 6:41 AM EST Other fdc (current) drug therapy documented in this encounter Results * (ABNORMAL) Comprehensive metabolic panel (05/06/2024 6:41 AM EST) Sodium 141 133 - 145 mmol/L LAB CHEMISTRY METHOD 05/06/2024 2:03 PM [facility] Potassium 3.6 3.5 - 5.5 mmol/L LAB CHEMISTRY METHOD 05/06/2024 2:03 PM [facility] Chloride 107 96 - 110 mmol/L LAB CHEMISTRY METHOD 05/06/2024 2:03 PM [facility] CO2 26 21 - 32 mmol/L LAB CHEMISTRY METHOD 05/06/2024 2:03 PM [facility] Anion Gap 8 3 - 11 LAB CHEMISTRY METHOD 05/06/2024 2:03 PM [facility] Glucose 108(H) 70 - 100 mg/dL LAB CHEMISTRY METHOD 05/06/2024 2:03 PM [facility] BUN 14 5 - 25 mg/dL LAB CHEMISTRY METHOD 05/06/2024 2:03 PM [facility] Creatinine 0.85 0.50 - 1.10 mg/dL LAB CHEMISTRY METHOD 05/06/2024 2:03 PM [facility] eGFR 75 >=60 mL/min/1. 73m2 LAB CHEMISTRY METHOD 05/06/2024 2:03 PM [facility] Comment:Calculation based on the??Chronic Kidney Disease Epidemiology Collaboration (CKD-EPI) equation refit??without adjustment for race. BUN/Creatinine Ratio 16.5 LAB CHEMISTRY METHOD 05/06/2024 2:03 PM [facility] Calcium 8.7 8.5 - 10.5 mg/dL LAB CHEMISTRY METHOD 05/06/2024 2:03 PM [facility] AST (SGOT) 35 10 - 42 unit/L LAB CHEMISTRY METHOD 05/06/2024 2:03 PM [facility] ALT (SGPT) 37 10 - 60 unit/L LAB CHEMISTRY METHOD 05/06/2024 2:03 PM [facility] Alkaline Phosphatase 403(H) 42 - 121 unit/L LAB CHEMISTRY METHOD 05/06/2024 2:03 PM [facility] Total Protein 5.8(L) 6.0 - 8.0 g/dL LAB CHEMISTRY METHOD 05/06/2024 2:03 PM [facility] Albumin 2.4(L) 3.2 - 5.0 g/dL LAB CHEMISTRY METHOD 05/06/2024 2:03 PM [facility] Total Bilirubin 0.5 0.0 - 1.4 mg/dL LAB CHEMISTRY METHOD 05/06/2024 2:03 PM [facility] Blood Venous blood specimen / Unknown Venipuncture / Unknown 05/06/2024 6:41 AM EST 05/06/2024 12:07 PM EST us Niels Retana MD LAB BLOOD ORDERABLES Final Resul t [facility] [address] [place] [address], * (ABNORMAL) Complete blood count (05/06/2024 6:41 AM EST) WBC 12.0(H) 4.8 - 10.8 K/mcL LAB HEMETOLOGY METHOD 05/06/2024 1:39 PM [facility] RBC 3.60(L) 3.80 - 4.80 M/mcL LAB HEMETOLOGY METHOD 05/06/2024 1:39 PM [facility] Hemoglobin 10.1(L) 11.5 - 16.0 g/dL LAB HEMETOLOGY METHOD 05/06/2024 1:39 PM [facility] Hematocrit 32.4(L) 35.0 - 47.0 % LAB HEMETOLOGY METHOD 05/06/2024 1:39 PM [facility] MCV 90.5 79.0 - 98.0 FL LAB HEMETOLOGY METHOD 05/06/2024 1:39 PM [facility] MCH 28.2 27.0 - 32.0 pcg LAB HEMETOLOGY METHOD 05/06/2024 1:39 PM [facility] MCHC 31.2(L) 32.0 - 37.0 g/dL LAB HEMETOLOGY METHOD 05/06/2024 1:39 PM [facility] RDW 15.0 11.0 - 15.0 % LAB HEMETOLOGY METHOD 05/06/2024 1:39 PM EST [facility] Platelets 349 130 - 400 K/mcL LAB HEMETOLOGY METHOD 05/06/2024 1:39 PM EST [facility] MPV 10.1 7.0 - 11.0 FL LAB HEMETOLOGY METHOD 05/06/2024 1:39 PM EST [facility] NRBC 0.0 <1.0 % LAB HEMETOLOGY METHOD 05/06/2024 1:39 PM EST [facility] NRBC Absolute 0.00 <0.10 K/mcL LAB HEMETOLOGY METHOD 05/06/2024 1:39 PM EST [facility] Blood Venous blood specimen / Unknown Venipuncture / Unknown 05/06/2024 6:41 AM EST 05/06/2024 12:07 PM EST us Niels Retana MD LAB BLOOD ORDERABLES Final Resul t [facility] [address] [place] [address], documented in this encounter Visit Diagnoses Diagnosis Other fdc (current) drug therapy Encounter for screening mammogram for breast cancer documented in this encounter Additional Health Concerns Infection Onset Date Last Indicated Resolved Time Norovirus 05/08/2024 05/08/2024 documented as of this encounter Care Teams General Medical Practitioner Relationship Specialty Start Date End Date Niels Retana MD [address] [place] [phone] PCP - General Family Medicine 05/06/24 documented as of this encounter
--- OUTSIDE RECORDS SUMMARY | 2024-06-13 10:37 | XMS_ITS | Encounter Summary ---
Author Organization [facility] Address [address] [place] [address] Care Team Providers Care Laundry Laborer Name Role Phone Niels Retana MD Primary Care Provider Reason for Visit * Reason Onset Date Comments Hypotension 06/05/2024 Encounter Details Date Type Department Care Team (Late st Contact Info) Description 06/05/2024 Telephone Nephrology - [place] [address] [place] [address] Vega Navarro MD [address] [phone] Hypotension Social History Tobacco Use Types Packs/Day Years [...] as of this encounter Progress Notes * Tatiana Sandoval - 06/05/2024 11:02 AM EDT Patient saw her primary care and her bp was very low at 92/64. She was suggested to see Dr Navarro sooner than her scheduled appointment which is 12/05/24. There are no sooner appointments with Dr Navarrofor us to book, but can you fit patient in sooner ? documented in this encounter Plan of Treatment Upcoming Encounters Date Type Department Care Team (Late st Contact Info) Description 08/30/2024 10:00 AM EDT Appointment Radiology Department - [address] [address] 12/05/2024 3:45 PM EDT Office Visit Nephrology - [address] [phone] Vega Navarro MD [address] [facility] [address] [place] [phone] 02/04/2025 9:00 AM EST Office Visit Bariatric Surgery - [place] 175 [facility] 120 [place] [address] Torrey Moreno MD 175 [facility] [address] [place] [address] 06/12/2025 9:10 AM EDT Office Visit Pulmonolgy - [place] [address] [facility] [address] [place] [phone] Jil Freeman NP [address] [facility] [address] [place] [address] documented as of this encounter Visit Diagnoses Not on filedocumented in this encounter Additional Health Concerns Infection Onset Date Last Indicated Resolved Time Norovirus 05/08/2024 05/08/2024 documented as of this encounter Care Teams Laundry Laborer Relationship Specialty Start Date End Date Niels Retana MD [address] [facility] [address] [place], [phone] PCP - General Family Medicine 05/06/24 documented as of this encounter
--- OUTSIDE RECORDS SUMMARY | 2024-06-13 10:37 | XMS_ITS | Encounter Summary ---
Author Organization [facility] Address [address] [place] [address] Care Team Providers Care Loom Fixer Name Role Phone Niels Retana MD Primary Care Provider [phone] Encounter Details Date Type Department Care Team (Late Contact Info) Description 05/08/2024 Lab Requisition [facility] - Main Lab [address] [facility] [place] [address] Niels Retana MD [address] [place] [address] [address] [place], [address] Diarrhea, unspecified Social History Tobacco Use [...] 10:00 AM EDT Appointment Radiology Department - [address] [address] 12/05/2024 3:45 PM EDT Office Visit Nephrology - [address] [place] [address] Vega Navarro MD [address] [facility] [address] [place] [address] 02/04/2025 9:00 AM EST Office Visit Bariatric Surgery - [place] [address] [facility] [address] [place] [address] Torrey Moreno MD [address] [facility] 120 [place] [address] 06/12/2025 9:10 AM EDT Office Visit Pulmonolgy - [place] [address] [facility] [address] [place] [phone] Jil Freeman NP [address] [facility] 200 [place] [address] documented as of this encounter Procedures Procedure Name Priority Date/Time Associated Diagnosis Comments GASTROINTESTINAL PATHOGENS BY PCR Routine 05/08/2024 6:00 AM EST Diarrhea, unspecified CLOSTRIDIUM DIFFICILE TOXIN Routine 05/08/2024 6:00 AM EST Diarrhea, unspecified documented in this encounter Results * Clostridium difficile toxin (05/08/2024 6:00 AM EST) Clostridium difficile GDH Antigen Negative Negative 05/08/2024 12:02 PM EST [facility] C difficile Toxins A+B, EIA Negative Negative 05/08/2024 12:02 PM EST [facility] Comment:NEGATIVE FOR TOXIN P RODUCING CLOSTRIDIOIDES DIFFICILE, NO ADDITIONAL TESTING IS NECESSARY. Stool Rectum structure / Unknown 05/08/2024 6:00 AM EST 05/08/2024 11:43 AM EST us Niels Retana MD LAB MICROBIOLOGY - GENERAL ORDER CHELA Final Result [facility] [address] [place] [address], * (ABNORMAL) Gastrointestinal pathogens molecular study (05/08/2024 6:00 AM EST) Campylobacter Detection by PCR Not Detected Not Detected LAB MICROBIOLOGY METHOD 5 12:46 PM EST [facility] Plesiomonas shigelloides Detection by PCR Not Detected Not Detected LAB MICROBIOLOGY METHOD 5 12:46 PM EST [facility] Salmonella Detection by PCR Not Detected Not Detected LAB MICROBIOLOGY METHOD 5 12:46 PM EST [facility] Vibrio Detection by PCR Not Detected Not Detected LAB MICROBIOLOGY METHOD 5 12:46 PM EST [facility] Vibrio cholerae Detection by PCR Not Detected Not Detected LAB MICROBIOLOGY METHOD 5 12:46 PM EST [facility] Yersinia enterocolitica Detection by PCR Not Detected Not Detected LAB MICROBIOLOGY METHOD 5 12:46 PM EST [facility] Enteroaggregative E coli EAEC Detection by PCR Not Detected Not Detected LAB MICROBIOLOGY METHOD 5 12:46 PM EST [facility] Enteropathogenic E coli EPEC Detection Not Detected Not Detected LAB MICROBIOLOGY METHOD 5 12:46 PM EST [facility] Enterotoxigenic E coli ETEC LTST Detection Not Detected Not Detected LAB MICROBIOLOGY METHOD 5 12:46 PM EST [facility] Shiga-like toxin producing E coli STEC STX1 STX2 Det Not Detected Not Detected LAB MICROBIOLOGY METHOD 5 12:46 PM EST [facility] Shigella Enteroinvasive E coli EIEC Detection Not Detected Not Detected LAB MICROBIOLOGY METHOD 5 12:46 PM [facility] Cryptosporidium Detection by PCR Not Detected Not Detected LAB MICROBIOLOGY METHOD 5 12:46 PM [facility] Cyclospora cayetanensis Detection by PCR Not Detected Not Detected LAB MICROBIOLOGY METHOD 5 12:46 PM [facility] Entamoeba histolytica Detection by PCR Not Detected Not Detected LAB MICROBIOLOGY METHOD 5 12:46 PM [facility] Giardia lamblia Detection by PCR Not Detected Not Detected LAB MICROBIOLOGY METHOD 5 12:46 PM [facility] Adenovirus F 40 41 Detection by PCR Not Detected Not Detected LAB MICROBIOLOGY METHOD 5 12:46 PM [facility] Astrovirus Detection by PCR Not Detected Not Detected LAB MICROBIOLOGY METHOD 5 12:46 PM [facility] Norovirus GI GII Detection by PCR Detected(A ) Not Detected LAB MICROBIOLOGY METHOD 5 12:46 PM [facility] Sapovirus Detection by PCR Not Detected Not Detected LAB MICROBIOLOGY METHOD 5 12:46 PM [facility] Rotavirus A Detection by PCR Not Detected Not Detected LAB MICROBIOLOGY METHOD 5 12:46 PM [facility] Stool Rectum structure / Unknown 05/08/2024 6:00 AM EST 05/08/2024 10:34 AM EST [facility] - 05/08/2024 12:46 PM EST PCR [...] MICROBIOLOGY - GENERAL ORDER CHELA Final Result [facility] [address] [place] [address], documented in this encounter Visit Diagnoses Diagnosis Diarrhea, unspecified Encounter for screening mammogram for breast cancer documented in this encounter Additional Health Concerns Infection Onset Date Last Indicated Resolved Time Norovirus 05/08/2024 05/08/2024 documented as of this encounter Care Teams Loom Fixer Relationship Specialty Start Date End Date Niels Retana MD [address] [place] [phone] PCP - General Family Medicine 05/06/24 documented as of this encounter
--- OUTSIDE RECORDS SUMMARY | 2024-06-13 10:38 | XMS_ITS | Data Portability ---
Author Organization [facility] [employer] [facility], Main Office Address [address] [facility] [place] [address] Care Team Providers Care Rail Walker Name Role Phone YARITZA PERDOMO - 2ND FLOOR OTHER GARETT ALFARO Primary Care Provider Assessment Encounter Date Assessment Date Assessment LastModified by Organization Details LastModified Time 05/21/2024 05/21/2024 45 minutes spent on coordination of discharge. [email or web address] Not available 05/21/2024 10:30:03 Plan of Treatment Reminders Order Date Submit Date Provider Last Modified By Organization Details Last Modified Time Details Appointments None recorded. Lab None recorded. Referral None recorded. Procedures None recorded. Surgeries None recorded. Imaging None recorded. Medication Orders morphine ER 15 mg tablet,ext ended release 2024 025 [facility] , [address] [place] [address], [address], 22:13:52 oxycodone 10 mg tablet 2024 025 [facility] , [address] [place] [address], [address], 5 22:13:53 Patient TargetsNo targets recorded. Patient InstructionsNo instructions recorded. Reason for Referral None Reported. Problems Name Problem SNOMED Code Status Onset Date Resolution Date Notes Provider Name and Address Organization Details Recorded Time Wound of skin 546659343 Active 2024 right hip surgical wound MICHAEL ADAIR, KALE [address] [facility], [address], [place], [address], [facility] [employer] 14:01:04 Total replacement of right hip joint Active 2024 MICHAEL ADAIR NP [address], [address], [place], [address], [employer] 5 14:02:07 Hyperlipide tayler 86422996 Active 2024 MICHAEL ADAIR NP [address], [address], [place], [address], [employer] 5 14:07:43 Gastroesoph ageal reflux disease without esophagitis 649547247 Active 2024 MICHAEL ADAIR NP [address], [address], [place], [address], [employer] 5 14:07:53 Chronic obstructive pulmonary disease 84370677 Active 2024 MICHAEL ADAIR NP [address], [address], [place], [address], [employer] 5 14:08:17 Chronic pain 19945287 Active 2024 MICHAEL ADAIR NP [address], [place], [address], [facility] 5 14:08:31 Mixed anxiety and depressive disorder 679761914 Active 2024 MICHAEL ADAIR NP [address], [address], [place], [address], [facility] 5 14:08:38 Osteoarthri tis 585960647 Active 2024 MICHAEL ADAIR NP [address], [place], [address], [facility] 5 14:12:21 Problem Notes None recorded. Medical Equipment None Reported. Allergies Allergen ID Allergen Name Allergen Category Reaction Reaction Severity Criticality Documentation Date Start Date Code Code System Note Provider Name and Address Organization Details Recorded Time 45253 Substance with sulfonami de structure and antibacte rial mechanism of action (substanc e) medicatio n Not available Not available high 05/04/20242005 11742 8003 SNOMED swell ing and diffi culty breat devonte Not Available Not Available Not Available 26277 metformin medicatio n diarrhea Not available Not available 05/04/20242016 6809 RxNorm Not Available Not Available Not Available 44862 semagluti de medicatio n Not available Not [...] mm[Hg] 80 mm[Hg] MICHAEL ADAIR NP [address] [facility] [address], [place], [address], [facility] [employer] 5 14:00:15 Date Recorded Body weight Body mass index (BMI) Body height Heart rate Respiratory rate Body temperature Oxygen saturation Oxygen saturation in Arterial blood by Pulse oximetry Systolic blood pressure Diastolic blood pressure Provider Name and Address Organization Details Last Updated DateTime 5 46078.0 3 g 25.8 kg/m2 149.86 cm 83 /min 18 /min 98.5 [degF] 96 % 96 % 161 mm[Hg] 68 mm[Hg] Vida Herrmann MD [address] [facility] [address], [place], [address], [employer] 5 19:40:07 Date Recorded Body height Body mass index (BMI) Body weight Heart rate Respiratory rate Body temperature Oxygen saturation Oxygen saturation in Arterial blood by Pulse oximetry Systolic blood pressure Diastolic blood pressure Provider Name and Address Organization Details Last Updated DateTime 5 149.86 cm 25.7 kg/m2 34814.2 3 g 72 /min 18 /min 97.8 [degF] 96 % 96 % 142 mm[Hg] 78 mm[Hg] Sanaz Armenta NP [address] [facility], [address], [place], [address], [facility] 5 12:05:39 Date Recorded Body height Heart rate Respiratory rate Body temperature Oxygen saturation Oxygen saturation in Arterial blood by Pulse oximetry Systolic blood pressure Diastolic blood pressure Provider Name and Address Organization Details Last Updated DateTime 5 149.86 cm 60 /min 18 /min 97.5 [degF] 97 % 97 % 126 mm[Hg] 74 mm[Hg] RAHEEM ALMAGUER NP [address] [facility], [address], [place], [address], [facility] 5 10:27:38 Social History Question Answer Notes LastModified by Organizat ion Details LastModified Time Tobacco Smoking Status Former Smoker 6232-4067, 3 ppd Vida Herrmann MD [address] [facility], [address], [place], [address], [employer] 05/06/2024 22:16:45 Do You Have An [...] Do You Have A Medical Power Of Clinical Auditor? Yes Information not available 05/06/2024 What Was [...] Theresa Parveen [facility] 05/08/2024 16:06:09 Pneumococcal conjugate PCV 13 1 completed Theresa [facility] 05/08/2024 16:06:29 pneumococcal polysaccharide PPV23 5 completed Theresa Parveen [facility] 05/08/2024 16:06:45 influenza, unspecified formulation 3 completed [facility] 05/08/2024 16:07:03 influenza, unspecified formulation 4 completed Theresa Parveen [facility] 05/08/2024 16:07:17 SARS-COV-2 (COVID-19) vaccine, UNSPECIFIED 1 completed Theresa Parveen [facility] 05/08/2024 16:07:38 SARS-COV-2 (COVID-19) vaccine, UNSPECIFIED 1 completed Theresanba Saini [facility] 05/08/2024 16:07:47 SARS-COV-2 (COVID-19) vaccine, UNSPECIFIED 2 completed Theresa Parveen [facility] 05/08/2024 16:07:59 SARS-COV-2 (COVID-19) vaccine, UNSPECIFIED 2 completed Theresa [facility] 05/08/2024 16:08:09 SARS-COV-2 (COVID-19) vaccine, UNSPECIFIED 3 completed Theresa [facility] 05/08/2024 16:08:20 zoster, unspecified formulation 9 completed [facility] 05/08/2024 16:08:38 zoster, unspecified formulation 0 completed Theresa [facility] 05/08/2024 16:08:46 Past Encounters Encounter ID Performer Location Encounter Start Date Encounter Closed Date Diagnosis/Indication Diagnosis SNOMED-CT Code Diagnosis ICD10 Code Diagnosis Note [id number] MICHAEL ADAIR NP [address] [address] 05/04/2024 12:51:16 05/07/2024 13:49:18 Wound of skin 575361553 T14.8XXA monitor surgical incision for any signs of infectionc hange dressing as appropriat efollowup with ortho as planned Chronic pain 22178329 G8 9.29 lido patchtizan adine 4 mg prndiclofe nac gel bidms contin 15 mg hsoxycodon e 10 mg tid Chronic ob structive pulmonary disease 83701806 J44.9 combivent prnzyrtec 10 mg dailymonit or resp status Gastroesop hageal reflux disease without esophagitis 605535728 K21.9 omeprazole 20 mg dailybicar b 650 mg bid Hyperlipidemia 67254586 E78.5 atrovastat in 20 mg daily Mixed anxi ety and depressive disorder 468433894 F41.8 cymbalta 30 mg dailypsych prn Osteoarthritis 197137410 M19.90 lido patchtizan adine 4 mg prndiclofe nac gel bidms contin 15 mg hsoxycodon e 10 mg tid [id number] Vida Herrmann MD [address] [address] 05/06/2024 18:09:41 05/16/2024 14:57:48 Chronic pain 27977718 G89.29 Meds as above.Will wean off prn oxy prior to d/c. Osteoarthritis 801165851 M15.0 Z96.643 S/P LTHR in 08/2023 and RTHR on 04/30/24Usua mary kay takes tizanidine 4 mg BID, will reorder [...] as planned. Chronic ob structive pulmonary disease 00395637 J43.8 At baseline.C ontinue cetirizine 10 mg qd and combivent 2 puffs q 4 hrs prn.Monito r resp status Gastroesop hageal reflux disease without esophagitis 731211453 K21.9 No current sxs.Contin ue omeprazole 20 mg qd and sodium bicarb 650 mg BIDMonitor GI sxs. Hyperlipidemia 54615914 E78.49 Continue atorvastat in 20 mg qdMonitor labs as outpt. Mixed anxi ety and depressive disorder 090386616 F41.8 Mood good tonight.Co ntinue cymbalta 30 mg qdMonitor mood.Psych consult prn [id number] Sanaz Armenta NP [address] [address] 05/09/2024 12:04:48 05/10/2024 13:24:20 Osteoarthritis 341141821 M15.0 Z96.643 S/P LTHR in 08/2023 and [...] /U with ortho as planned. Chronic pain 39533321 G8 9.29 Meds as above.Will wean off prn oxy prior to d/c. Chronic ob structive pulmonary disease 60915604 J43.8 Continueco mbivent prnzyrtec 10 mg dailymonit or resp status Gastroesop hageal reflux disease without esophagitis 805651767 K21.9 contomepra zole 20 mg dailybicar b 650 mg bid Hyperlipidemia 08758829 E78.5 contatorva statin 20 mg daily Mixed anxi ety and depressive disorder 400976516 F41.8 contcymbal ta 30 mg dailypsych prn Wound of skin 871380534 T14.8XXA sp right hip arthroplas ty with dr annabelle mobley surgical incision for any signs of infectionc hange dressing as appropriat efollowup with ortho as planned Infection caused by Norovirus 007944577 A08.11 pt with norovirus positive stool testsympto ms with nausea and vomiting started on 05/03 progressed with diarrhea and now on 05/09 lessening. health dept updated as requested contimmodi um prnzofran 4 mg po q 6 hours prnencoura ge po fluidslabs weekly and prnisolati on precaution s as facility protocolmo nitor vs qd and prn [id number] Sanaz Armenta NP [address] [address] 05/16/2024 14:46:35 05/17/2024 16:20:21 Infection caused by Norovirus 146200193 A08.11 resolved Wound of skin 429936561 T14.8XXA sp right hip arthroplas ty with dr annabelle mobley surgical incision for any signs of infectionS he saw Ortho today on 05/16 today, with rec:therap y with glut, core, quad strengthen ing, gait training, and posterior precaution sfu with 4 weeks. Osteoarthritis 216859493 M15.0 Z96.643 S/P LTHR in 08/2023 and [...] /U with ortho as planned. Chronic pain 02036567 G8 9.29 Meds as above.Will wean off prn oxy prior to d/c. [id number] RAHEEM ALMAGUER NP [address] [address] 05/21/2024 10:26:56 05/23/2024 11:51:17 Osteoarthritis 193340005 M15.0 Z96.643 S/P R THR on 04/30/24 [...] incision, CSM upon d/c home. Chronic pain 96322476 G8 9.29 Meds as above.Enco uraged to wean off prn oxycodone upon d/c home. Currently using prn doses about 2xd Chronic ob structive pulmonary disease 37901666 J43.8 At baseline.C ontinue cetirizine 10 mg qd and combivent 2 puffs q 4 hrs prn.Monito r resp status as outpt. Gastroesop hageal reflux disease without esophagitis 349227946 K21.9 No current sxs.Contin ue omeprazole 20 mg qd and sodium bicarb 650 mg BIDMonitor GI sxs. Hyperlipidemia 76256724 E78.49 Continue atorvastat in 20 mg qdMonitor labs as outpt. Mixed anxi ety and depressive disorder 155648513 F41.8 Continue cymbalta 30 mg qdMonitor mood as outpt.Psyc h consult prn Health Concerns Section Related Observation LastModified by Organization Detai ls LastModified Time None Recorded Concern Status LastModified by Organization Details LastModified Time None Recorded Advance Directives Directive Y: Payers Encounter Date Sequence Insurance Name Policy Number Policy Toribio Covered Member ID Toribio Member ID Guarantor Name 05/04/2024 1 [facility] - DOS ON OR AFTER 2022 - MEDICARE [place]VANTAGE [place]MEDICARE REPLACEMENT/ADV ANTAGE - PPO) Yanet Fernando [id number] Yanet Fernando 05/06/2024 1 [facility] - DOS ON OR AFTER 2022 - [place]/ADV ANTAGE - PPO) Yanet Fernando [id number] Yanet Fernando 05/09/2024 1 [facility] - DOS ON OR AFTER 2022 - [place]V ANTAGE - PPO) Yanet Fernando [id number] Yanet Fernando 05/16/2024 1 [facility] - DOS ON OR AFTER 2022 - [place]/ADV ANTAGE - PPO) Yanet Fernando [id number] Yanet Fernando 05/21/2024 1 [facility] - DOS ON OR AFTER 2022 - [place]/ADV ANTAGE - PPO) Yanet Fernando [id number] Yanet Fernando Notes Date Note Type Note Provider Name and Address Organization Details Recorded Time 05/04/2024 text/html seen today for initial intake visit-68 yof admitted to for rehab after having a right total hip replacement, she tolerated the surgery well with no complications. CAOx3 sitting up in bed, good cms to right leg, dressing small staining noted MICHAEL ADAIR NP [address] [facility], [address], [place], [address], [facility] [employer] [facility] 05/04/2024 14:18:25 05/06/2024 text/html This is a 68 yo woman who is here for rehab after a hospitalization for an right THR for ESOA unresponsive to conservative tx. She was taken to [facility] on y Dr. Ruiz.She tolerated procedure well, [...] Covid, anxiety/depression, and HLD. Vida Herrmann MD [address] [place] [address], [address], [place], [address], [facility] [employer] 05/16/2024 00:16:51 05/09/2024 text/html This is a [...] here on 05/03. Sanaz Armenta, KALE [address] [facility], [address], [place], [address], [facility] [employer] 05/09/2024 13:44:40 05/16/2024 text/html Ynaet is a 68 yo woman who is here after hospitalization for an right THR for ESOA unresponsive to conservative tx. She is here for acute rehab. Her PMH includes HTN, COPD/asthma overlap syndrome, OA, hx of DVT with IVC filter in place, s/p LTHR in 08/2023 with periprosthetic fx 2 wks later and surgical revision, GERD, s/p gastric sleeve in 2019, s/p several back surgeries, s/p Covid, anxiety/depression, and HLD. She saw Ortho today on 05/16 today, with rec: glut, core, quad strengthening, gait training, and posterior precautions, fu with 4 weeks. Pt states claudia were removed and steri strips placed today. She had norovirus which is now resolved and denies any symptoms of nausea, vomiting, loose stools or other concerns today. On exam, she is up using a walker and shows this TELEVISION ANTENNA INSTALLER her right hip with steri strips intact and claudia out. Appears euvolemic. Per dc summary:She was taken to the [...] here on 05/03. Sanaz Armenta NP [address] [facility], [address], [place], [address], [facility] [employer] 05/16/2024 15:28:40 05/21/2024 text/html Yanet is seen today for discharge.She is returning home today with the support of family and services. She is is a 68 yo woman, admitted to [facility] 05/03/24 from [facility] for continued care and [...] surgical revision, GERD, s/p gastric sleeve in 2018, s/p several back surgeries, s/p Covid, anxiety/depression, and HLD. RAHEEM ALMAGUER NP [address] [facility], [address], [place], [address], [facility] [employer] 05/21/2024 10:54:45 OBGyn Episode No OBEpisode recorded.
--- OUTSIDE RECORDS SUMMARY | 2024-06-13 10:38 | XMS_ITS | Patient Health Record ---
Author Organization [facility] Address [address] [facility] [place] [address] Care Team Providers Care Lead Java Developer Architect Name Role Phone Ayan Clayton Primary Care [...] Problem Status W/U Status Risk Notes Problem 54932605 Other chronic pain (G89.29) Active confirmed Problem 671672766 Other hammer toe(s) (acquired), right foot (M20.41) Active confirmed Problem 29072742 Other hammer toe(s) (acquired), left foot (M20.42) Active confirmed Problem 24856453 Type 2 diabetes mellitus with diabetic polyneuropathy , without long-term current use of insulin (E11.42) Active confirmed Problem 3796835572108727 Arthritis of ankle, right (M19.071) Active confirmed Problem 956557580 Ankle arthritis (M19.079) Active confirmed Problem 5734194891853561 Arthritis of ankle, left (M19.072) Active confirmed [...]
--- OUTSIDE RECORDS SUMMARY | 2024-06-13 10:38 | XMS_ITS | Continuity of Care Document ---
Author Organization [facility] [employer] [facility], [facility] Address [address] [place] [address] Care Team Providers Care [employer] Worker Name Role Phone YARITZA CASTRO - 2ND FLOOR OTHER GARETT ALFARO Primary Care Provider [phone] Assessment No assessment recorded. Plan of Treatment [...] Organization Details Recorded Time Wound of skin 905626868 Active 2024 right hip surgical wound MICHAEL ADAIR NP [address] [facility], [address], [place], [address], [facility] [employer] 5 14:01:04 Total replacement of right hip joint Active 2024 MICHAEL ADAIR NP [address] [facility], [address], [place], [address], [facility] 5 14:02:07 Hyperlipide tayler 15098598 Active 2024 MICHAEL ADAIR NP [address] , [address], [place], [address], [facility] 5 14:07:43 Gastroesoph ageal reflux disease without esophagitis 370243798 Active 2024 MICHAEL ADAIR NP [address] [facility], [address], [place], [address], [facility] 5 14:07:53 Chronic obstructive pulmonary disease 87235002 Active 2024 MICHAEL ESTEBANSRI, [employer] [address], [address], [place], [address], [facility] 5 14:08:17 Chronic pain 04196835 Active 2024 MICHAEL MANA, TECHNOLOGY APPLICATIONS CONSULTANT [address], [address], [place], [address], [facility] 5 14:08:31 Mixed anxiety and depressive disorder 144344681 Active 2024 MICHAELMason ADAIR, TECHNOLOGY APPLICATIONS CONSULTANT [address], [address], [place], [address], [facility] 5 14:08:38 Osteoarthri tis 422164129 Active 2024 MICHAEL ORELLANASRI, TECHNOLOGY APPLICATIONS CONSULTANT [address], [address], [place], [address], [facility] 5 14:12:21 Problem Notes None recorded. Medical Equipment None Reported. Allergies Allergen ID Allergen Name Allergen Category Reaction Reaction Severity Criticality Documentation Date Start Date Code Code System Note Provider Name and Address Organization Details Recorded Time 62167 Substance with sulfonami de structure and antibacte rial mechanism of action (substanc e) medicatio n Not available Not available high 05/04/20242005 90124 8003 SNOMED swell ing and diffi culty breat devonte Not Available Not Available Not Available 52266 metformin medicatio n diarrhea Not available Not available 05/04/20242016 6809 RxNorm Not Available Not Available Not Available 62584 semagluti de medicatio n Not available Not [...] Available Not Available Not Avai lable Vitals None Recorded Social History Question Answer Notes LastModified by Organizat ion Details LastModified Time Tobacco Smoking Status Former Smoker [id number], 3 ppd Vida Herrmann MD [address] [facility], [address], [place], [address], [facility] 05/06/2024 22:16:45 Do You Have An Advance [...] You Have A Medical Power Of Clinical Trials Assistant? Yes Information not available 05/06/2024 What Was [...] Details Recorded Time Tdap 2 completed Theresa morton, [facility] 05/08/2024 16:05:46 Tdap 3 completed Theresa Parveen [facility], [facility] 05/08/2024 16:05:54 Td(adult) unspecified formulation 3 completed Theresa Parveen null, [facility] 05/08/2024 16:06:09 Pneumococcal conjugate PCV 13 1 completed [facility] 16:06:29 pneumococcal polysaccharide PPV23 5 completed Theresa Parveen null, [facility] 05/08/2024 16:06:45 influenza, unspecified formulation 3 completed [facility] 05/08/2024 16:07:03 influenza, unspecified formulation 4 completed Theresa Parveen [facility] [address] 05/08/2024 16:07:17 SARS-COV-2 (COVID-19) vaccine, UNSPECIFIED 1 completed Theresa Parveen [facility] [address] 05/08/2024 16:07:38 SARS-COV-2 (COVID-19) vaccine, UNSPECIFIED 1 completed [facility] 05/08/2024 16:07:47 SARS-COV-2 (COVID-19) vaccine, UNSPECIFIED 2 completed [facility] 05/08/2024 16:07:59 SARS-COV-2 (COVID-19) vaccine, UNSPECIFIED 2 completed Theresa Parveen null, [facility] 05/08/2024 16:08:09 SARS-COV-2 (COVID-19) vaccine, UNSPECIFIED 3 completed Theresa Parveen null, [facility] 05/08/2024 16:08:20 zoster, unspecified formulation 9 completed Theresa Parveen null, [facility] 05/08/2024 16:08:38 zoster, unspecified formulation 0 completed [facility] 05/08/2024 16:08:46 Past Encounters Encounter ID Performer Location Encounter Start Date Encounter Closed Date Diagnosis/Indication Diagnosis SNOMED-CT Code Diagnosis ICD10 Code Diagnosis Note [id number] MICHAEL ADAIR NP [address] [address] 05/04/2024 12:51:16 05/07/2024 13:49:18 Wound of skin 029750556 T14.8XXA monitor surgical incision for any signs of infectionc hange dressing as appropriat efollowup with ortho as planned Chronic pain 84704086 G8 9.29 lido patchtizan adine 4 mg prndiclofe nac gel bidms contin 15 mg hsoxycodon e 10 mg tid Chronic ob structive pulmonary disease 96372322 J44.9 combivent prnzyrtec 10 mg dailymonit or resp status Gastroesop hageal reflux disease without esophagitis 979531094 K21.9 omeprazole 20 mg dailybicar b 650 mg bid Hyperlipidemia 41681919 E78.5 atrovastat in 20 mg daily Mixed anxi ety and depressive disorder 078890683 F41.8 cymbalta 30 mg dailypsych prn Osteoarthritis 984070167 M19.90 lido patchtizan adine 4 mg prndiclofe nac gel bidms contin 15 mg hsoxycodon e 10 mg tid [id number] Vida Herrmann MD [address] [address] 05/06/2024 18:09:41 05/16/2024 14:57:48 Chronic pain 20441570 G89.29 Meds as above.Will wean off prn oxy prior to d/c. Osteoarthritis 179386526 M15.0 Z96.643 S/P LTHR in 08/2023 and [...] as planned. Chronic ob structive pulmonary disease 06302107 J43.8 At baseline.C ontinue cetirizine 10 mg qd and combivent 2 puffs q 4 hrs prn.Monito r resp status Gastroesop hageal reflux disease without esophagitis 069956723 K21.9 No current sxs.Contin ue omeprazole 20 mg qd and sodium bicarb 650 mg BIDMonitor GI sxs. Hyperlipidemia 66221053 E78.49 Continue atorvastat in 20 mg qdMonitor labs as outpt. Mixed anxi ety and depressive disorder 942542624 F41.8 Mood good tonight.Co ntinue cymbalta 30 mg qdMonitor mood.Psych consult prn [id number] Sanaz Armenta NP [address] [address] 05/09/2024 12:04:48 05/10/2024 13:24:20 Osteoarthritis 416858644 M15.0 Z96.643 S/P LTHR in 08/2023 and [...] /U with ortho as planned. Chronic pain 88205208 G8 9.29 Meds as above.Will wean off prn oxy prior to d/c. Chronic ob structive pulmonary disease 85284319 J43.8 Continueco mbivent prnzyrtec 10 mg dailymonit or resp status Gastroesop hageal reflux disease without esophagitis 051733618 K21.9 contomepra zole 20 mg dailybicar b 650 mg bid Hyperlipidemia 87075946 E78.5 contatorva statin 20 mg daily Mixed anxi ety and depressive disorder 855418993 F41.8 contcymbal ta 30 mg dailypsych prn Wound of skin 927488383 T14.8XXA sp right hip arthroplas ty with dr annabelle [place] surgical incision for any signs of infectionc hange dressing as appropriat efollowup with ortho as planned Infection caused by Norovirus 992691204 A08.11 pt with norovirus positive stool testsympto ms with nausea and vomiting started on 05/03 progressed with diarrhea and now on 05/[address] less[address] health dept updated as requested contimmodi um prnzofran 4 mg po q 6 hours prnencoura ge po fluidslabs weekly and prnisolati on precaution s as facility protocolmo nitor vs qd and prn [id number] Sanaz Armenta NP [address] [place] [address] 05/16/2024 14:46:35 05/17/2024 16:20:21 Infection caused by Norovirus 628759528 A08.11 resolved Wound of skin 074462086 T14.8XXA sp right hip arthroplas ty with dr annabelle mobley surgical incision for any signs of infectionS he saw Ortho today on 05/16 today, with rec:therap y with glut, core, quad strengthen ing, gait training, and posterior precaution sfu with 4 weeks. Osteoarthritis 461128477 M15.0 Z96.643 S/P LTHR in 08/2023 and [...] /U with ortho as planned. Chronic pain 96949238 G8 9.29 Meds as above.Will wean off prn oxy prior to d/c. Health Concerns Section Related Observation LastModified by Organization Marissa worrell LastModified Time None Recorded Concern Status LastModified by Organization Details LastModified Time None Recorded Payers Encounter Date Sequence Insurance Name Policy Number Policy Toribio Covered Member ID Toribio Member ID Guarantor Name 05/16/2024 1 [facility] - DOS ON OR AFTER 2022 - MEDICARE ADVANTAGE [place] (MEDICARE REPLACEMENT/ADV ANTAGE - PPO) Yanet King [id number] Yanet Fernando Notes Date Note Type Note Provider Name and Address Organization Details Recorded Time 05/16/2024 text/html Yanet is a 68 yo woman who is [...] up using a walker and shows this TE[employer] APPLICATIONS CONSULTANT her right hip with steri strips intact [...] here on 05/03. Sanaz Armenta, KALE [address] [facility], [address], [place], [address], [facility] 05/16/2024 15:28:40 OBGyn Episode No OBEpisode recorded.
--- OUTSIDE RECORDS SUMMARY | 2024-06-13 10:38 | XMS_ITS | Clinical Summary ---
Author Organization [facility] Address [address] [place] [address] Phone Care Team Providers Care Cloth Beamer Name Role Phone Niels Retana MD Primary Care Provider [phone] Allergies Active Allergy Reactions Criticality Noted Date Comments Metformin Diarrhea 09/23/2016 Sulfa (Sulfonamide Antibiotics) High 03/28/2005 swelling and difficulty breathing Medications cyanocobalamin (VITAMIN B-12) 1,000 mcg tablet Take 1 tablet (1,000 mcg total) by mouth 1 (one) time each day. Active multivitamin (MULTIPLE VITAMINS ORAL) Take 1 tablet by mouth 1 (one) time each day. Active fluticasone-ume clidinium-vilan terol (Trelegy Ellipta) 100-62.5-25 mcg inhaler Inhale 1 Puff into the lungs daily. Active acetaminophen (TYLENOL 8 HOUR) 650 mg 8 hr tablet TAKE ONE TABLET EVERY 8 HOURS NEEDED FOR PAIN Active diclofenac (VOLTAREN) 1 % topical gel APPLY ONE GRAM TO THE AFFECTED AREA(s) TWICE DAILY Active atorvastatin (LIPITOR) 20 mg tablet Take 1 Tablet by mouth at bedtime. Active hydrOXYzine HCL (ATARAX) 50 mg tablet Take 1 tablet (50 mg total) by mouth 2 (two) times a day. Active lisinopriL (PRINIVIL,ZESTR IL) 2.5 mg tablet Take 1 Tablet by mouth daily for 180 days. Active lansoprazole (PREVACID SOLUTAB) 15 mg dispersible tablet DISSOLVE 1 TABLET BY MOUTH EVERY DAY Active calcitonin salmon (MIACALCIN) 200 unit/actuation nasal spray 1 [place] by Alternating Nares route daily. 2024 Active cholecalciferol (VITAMIN D-3) 25 mcg (1,000 unit) tablet Take 1 tablet (1,000 Units total) by mouth 1 (one) time each day. Active celecoxib (CeleBREX) 100 mg capsule Take 1 capsule (100 mg total) by mouth 2 (two) times a day. Active albuterol HFA (PROAIR HFA ; PROVENTIL HFA ; VENTOLIN HFA) 90 mcg/actuation inhaler Inhale 2 Puffs into the lungs 4 times daily as needed for Wheezing or Shortness of Breath. Active vitamin B complex vit C no.3 (B COMPLEX PLUS VITAMIN C ORAL) Take 1 tablet by mouth 1 (one) time each day. Active thiamine 100 mg tablet Take 1 tablet (100 mg total) by mouth 1 (one) time each day. Active nystatin (MYCOSTATIN) cream APPLY TO THE AFFECTED AREA(S) THREE TIMES DAILY Active Ozempic 2 mg/dose (8 mg/3 mL) injection pen Inject 2 mg into the skin once a week. INJECT 2mg's SUBCUTANEOUSLY EVERY WEEK Active ibuprofen (ADVIL,MOTRIN) 800 mg tablet Take 1 tablet (800 mg total) by mouth every 8 (eight) hours if needed. Active polyethylene glycol (MIRALAX) 17 gram packet MIX 1 PACKET IN 8 OUNCES OF WATER, JUICE,SODA, COFFEE, OR TEA DAILY NEEDED FOR CONSTIPATION TWICE DAILY Active UNABLE TO FIND Use daily Active blood sugar diagnostic (FreeStyle Lite Strips) test strip TEST BLOOD SUGAR FOUR TIMES DAILY Active tiZANidine (ZANAFLEX) 4 mg tablet TAKE ONE TABLET EVERY 6 HOURS NEEDED FOR MUSCLE SPASMS 120 tablet 1 024 Active fexofenadine (Griselda Allergy) 180 mg tabletIndicatio ns:Severe persistent asthma without complication (CMS/HCC),Seaso nal allergic rhinitis due to pollen Take 1 tablet (180 mg total) by mouth 1 (one) time each day. 30 each 2 025 2025 Active triamcinolone (NASACORT) 55 mcg nasal inhalerIndicati ons:Seasonal allergic rhinitis due to pollen Administer 1 spray into each nostril 1 (one) time each day. 10.8 mL 2 025 2024 Active cetirizine (ZyrTEC) 10 mg tablet Take 1 tablet (10 mg total) by mouth 1 (one) time each day. 024 2024 Discontinued(I neffective) triamcinolone acetonide (KENALOG-40) 40 mg/mL injection Inject 1 mL into the articular space once for 1 dose. 023 2024 Discontinued Active Problems Problem Noted Date Diagnosed Date [...] of vision loss for 20 minutes , [facility] 12/23/15 echo wnl, carotid duplex < 50 [...] Encounters Date Type Department Care Team Description 06/12/2024 8:50 AM EDT Office Visit Pulmonolgy - [place] [facility] [address] [place] [address] Jil Freeman NP Centrilobular emphysema (CMS/HCC) (Primary Dx); Nocturnal hypoxemia; Snoring; Severe persistent asthma without complication (CMS/HCC); Seasonal allergic rhinitis due to pollen 06/05/2024 Telephone Nephrology - [place] [address] [place] [phone] Vega Navarro MD Hypotension 05/08/2024 Lab Requisition [facility] [address] [place] [address] Niels Retana MD Diarrhea, unspecified 05/06/2024 Lab Requisition [facility] [address] [place] [address] Niels Retana MD 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 extermination 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 04/04/2024 Telephone Adult Medicine [address] [phone] Ayan Clayton MD Pre-op Exam 03/15/2024 Telephone Lung Screening Program - [address] [place] [address] Jyoti Mackay [place] Appointment (No longer qualifies for screening) from Last 3 Months Immunizations Name Administration [...] Mass Index 25.62 06/12/2024 9:07 AM EDT Plan of Treatment Upcoming Encounters Date Type Department Care Team (Late st Contact Info) Description 08/30/2024 10:00 AM EDT Appointment Radiology Department - [address] [phone] 12/05/2024 3:45 PM EDT Office Visit Nephrology - [address] [phone] Vega Navarro MD [address] [phone] 02/04/2025 9:00 AM EST Office Visit Bariatric Surgery - [place] [address] [facility] [address] [place] [address] Torrey Moreno MD 175 [facility] [address] [place] [address] 06/12/2025 9:10 AM EDT Office Visit Pulmonolgy - [place] 175 [facility] [address] [place] [phone] Jil Freeman, KALE 175 [facility] [address] [place] [address] Health Maintenance Due Date Last Done Comments [...] 05/06/2024, 01/03/2024, 06/29/2023 Breast Cancer Screening 08/15/2025 08/16/19 24, 08/16/2023, 08/12/2022, Additional history exists Pneumococcal Vaccine: [...] Procedure Name Priority Date/Time Associated Diagnosis Comments POLYSOMNOGRAPHY Routine 06/11/2024 2:16 PM EDT CLOSTRIDIUM DIFFICILE TOXIN Routine 05/08/2024 6:00 AM EST Diarrhea, unspecified GASTROINTESTINAL PATHOGENS BY PCR Routine 05/08/2024 6:00 AM EST Diarrhea, unspecified COMPREHENSIVE METABOLIC PANEL Routine 05/06/2024 6:41 AM EST Other correction (current) drug therapy COMPLETE BLOOD COUNT Routine 05/06/2024 6:41 AM EST Other correction (current) drug therapy SCREENING MAMMOGRAPHY BI 2-VIEW BREAST INC CAD Routine 08/16/2023 4:01 PM EDT Encounter for screening mammogram for malignant neoplasm of breast HM URINE ALBUMIN CREATININE RATIO Routine 06/29/2023 HEMOGLOBIN [...] Recently Relevant to Health Maintenance Results * Polysomnography (06/11/2024 2:16 PM EDT) us Historical Provider MD [facility] ORDERABLES F inal Result * (ABNORMAL) Gastrointestinal pathogens molecular study (05/08/2024 6:00 AM EST) Campylobacter Detection by PCR Not Detected Not Detected LAB MICROBIOLOGY METHOD 5 12:46 PM [facility] Plesiomonas shigelloides Detection by PCR Not Detected Not Detected LAB MICROBIOLOGY METHOD 5 12:46 PM [facility] Salmonella Detection by PCR Not Detected Not Detected LAB MICROBIOLOGY METHOD 5 12:46 PM [facility] Vibrio Detection by PCR Not Detected Not Detected LAB MICROBIOLOGY METHOD 5 12:46 PM [facility] Vibrio cholerae Detection by PCR Not Detected Not Detected LAB MICROBIOLOGY METHOD 5 12:46 PM [facility] Yersinia enterocolitica Detection by PCR Not Detected Not Detected LAB MICROBIOLOGY METHOD 5 12:46 PM [facility] Enteroaggregative E coli EAEC Detection by PCR Not Detected Not Detected LAB MICROBIOLOGY METHOD 5 12:46 PM [facility] Enteropathogenic E coli EPEC Detection Not Detected Not Detected LAB MICROBIOLOGY METHOD 5 12:46 PM [facility] Enterotoxigenic E coli ETEC LTST Detection Not Detected Not Detected LAB MICROBIOLOGY METHOD 5 12:46 PM [facility] Shiga-like toxin producing E coli STEC STX1 STX2 Det Not Detected Not Detected LAB MICROBIOLOGY METHOD 5 12:46 PM [facility] Shigella Enteroinvasive E coli EIEC Detection Not Detected Not Detected LAB MICROBIOLOGY METHOD 5 12:46 PM [facility] Cryptosporidium Detection by PCR Not Detected Not Detected LAB MICROBIOLOGY METHOD 5 12:46 PM [facility] Cyclospora cayetanensis Detection by PCR Not Detected Not Detected LAB MICROBIOLOGY METHOD 5 12:46 PM [facility] Entamoeba histolytica Detection by PCR Not Detected Not Detected LAB MICROBIOLOGY METHOD 5 12:46 PM [facility] Giardia lamblia Detection by PCR Not Detected Not Detected LAB MICROBIOLOGY METHOD 5 12:46 PM [facility] Adenovirus F 40 41 Detection by PCR Not Detected Not Detected LAB MICROBIOLOGY METHOD 5 12:46 PM [facility] Astrovirus Detection by PCR Not Detected Not Detected LAB MICROBIOLOGY METHOD 5 12:46 PM [facility] Norovirus GI GII Detection by PCR Detected(A ) Not Detected LAB MICROBIOLOGY METHOD 5 12:46 PM [facility] Sapovirus Detection by PCR Not Detected Not Detected LAB MICROBIOLOGY METHOD 5 12:46 PM [facility] Rotavirus A Detection by PCR Not Detected Not Detected LAB MICROBIOLOGY METHOD 5 12:46 PM [facility] Stool Rectum structure / Unknown 05/08/2024 6:00 AM EST 05/08/2024 10:34 AM EST Narrative [facility] - 05/08/2024 12:46 PM EST PCR [...] additional guidance. ??Testing Performed by MULTIPLEXED PCR Niels Retana MD LAB MICROBIOLOGY - GENERAL ORDER CHELA Final Result Performing Organization Address [facility] Co de Phone Number [facility] [address] [place] [address], [place] [phone] * Clostridium difficile toxin (05/08/2024 6:00 AM EST) Pathologist [facility] Clostridium difficile GDH Antigen Negative Negative 05/08/2024 12:02 PM EST [facility] C difficile Toxins A+B, EIA Negative Negative 05/08/2024 12:02 PM EST [facility] Comment:NEGATIVE FOR TOXIN P RODUCING CLOSTRIDIOIDES DIFFICILE, NO ADDITIONAL TESTING IS NECESSARY. Stool Rectum structure / Unknown 05/08/2024 6:00 AM EST 05/08/2024 11:43 AM EST Niels Retana MD LAB MICROBIOLOGY - GENERAL ORDER CHELA Final Result Performing Organization Address [facility]/ZIP Co de Phone Number [facility] [address] [place] [address], [place] [phone] * (ABNORMAL) Complete blood count (05/06/2024 6:41 AM EST) WBC 12.0(H) 4.8 - 10.8 K/mcL LAB HEMETOLOGY METHOD 05/06/2024 1:39 PM EST [facility] RBC 3.60(L) 3.80 - 4.80 M/mcL LAB HEMETOLOGY METHOD 05/06/2024 1:39 PM [facility] Hemoglobin 10.1(L) 11.5 - 16.0 g/dL LAB HEMETOLOGY METHOD 05/06/2024 1:39 PM [facility] Hematocrit 32.4(L) 35.0 - 47.0 % LAB HEMETOLOGY METHOD 05/06/2024 1:39 PM [facility] MCV 90.5 79.0 - 98.0 FL LAB HEMETOLOGY METHOD 05/06/2024 1:39 PM [facility] MCH 28.2 27.0 - 32.0 pcg LAB HEMETOLOGY METHOD 05/06/2024 1:39 PM [facility] MCHC 31.2(L) 32.0 - 37.0 g/dL LAB HEMETOLOGY METHOD 05/06/2024 1:39 PM [facility] RDW 15.0 11.0 - 15.0 % LAB HEMETOLOGY METHOD 05/06/2024 1:39 PM [facility] Platelets 349 130 - 400 K/mcL LAB HEMETOLOGY METHOD 05/06/2024 1:39 PM [facility] MPV 10.1 7.0 - 11.0 FL LAB HEMETOLOGY METHOD 05/06/2024 1:39 PM [facility] NRBC 0.0 <1.0 % LAB HEMETOLOGY METHOD 05/06/2024 1:39 PM [facility] NRBC Absolute 0.00 <0.10 K/mcL LAB HEMETOLOGY METHOD 05/06/2024 1:39 PM [facility] Blood Venous blood specimen / Unknown Venipuncture / Unknown 05/06/2024 6:41 AM EST 05/06/2024 12:07 PM EST us Niels Retana MD LAB BLOOD ORDERABLES Final Resul t [facility] [address] [place] [address], * (ABNORMAL) Comprehensive metabolic panel (05/06/2024 6:41 AM EST) Sodium 141 133 - 145 mmol/L LAB CHEMISTRY METHOD 05/06/2024 2:03 PM [facility] Potassium 3.6 3.5 - 5.5 mmol/L LAB CHEMISTRY METHOD 05/06/2024 2:03 PM [facility] Chloride 107 96 - 110 mmol/L LAB CHEMISTRY METHOD 05/06/2024 2:03 PM [facility] CO2 26 21 - 32 mmol/L LAB CHEMISTRY METHOD 05/06/2024 2:03 PM [facility] Anion Gap 8 3 - 11 LAB CHEMISTRY METHOD 05/06/2024 2:03 PM [facility] Glucose 108(H) 70 - 100 mg/dL LAB CHEMISTRY METHOD 05/06/2024 2:03 PM [facility] BUN 14 5 - 25 mg/dL LAB CHEMISTRY METHOD 05/06/2024 2:03 PM [facility] Creatinine 0.85 0.50 - 1.10 mg/dL LAB CHEMISTRY METHOD 05/06/2024 2:03 PM [facility] eGFR 75 >=60 mL/min/1. 73m2 LAB CHEMISTRY METHOD 05/06/2024 2:03 PM [facility] Comment:Calculation based on the??Chronic Kidney Disease Epidemiology Collaboration (CKD-EPI) equation refit??without adjustment for race. BUN/Creatinine Ratio 16.5 LAB CHEMISTRY METHOD 05/06/2024 2:03 PM [facility] Calcium 8.7 8.5 - 10.5 mg/dL LAB CHEMISTRY METHOD 05/06/2024 2:03 PM [facility] AST (SGOT) 35 10 - 42 unit/L LAB CHEMISTRY METHOD 05/06/2024 2:03 PM [facility] ALT (SGPT) 37 10 - 60 unit/L LAB CHEMISTRY METHOD 05/06/2024 2:03 PM [facility] Alkaline Phosphatase 403(H) 42 - 121 unit/L LAB CHEMISTRY METHOD 05/06/2024 2:03 PM [facility] Total Protein 5.8(L) 6.0 - 8.0 g/dL LAB CHEMISTRY METHOD 05/06/2024 2:03 PM [facility] Albumin 2.4(L) 3.2 - 5.0 g/dL LAB CHEMISTRY METHOD 05/06/2024 2:03 PM [facility] Total Bilirubin 0.5 0.0 - 1.4 mg/dL LAB CHEMISTRY METHOD 05/06/2024 2:03 PM [facility] Blood Venous blood specimen / Unknown Venipuncture / Unknown 05/06/2024 6:41 AM EST 05/06/2024 12:07 PM EST us Niels Retana MD LAB BLOOD ORDERABLES Final Resul t [facility] [address] [place] [address], * SCREENING MAMMOGRAPHY BI 2-VIEW BREAST INC [...] in 12 months. BI-RADS: Category 2: Benign us Ayan Clayton MD IMG XR PROCEDURES Final Result * Urine Albumin Creatinine Ratio (06/29/2023) Urine Albumin Creatinine Ratio ABSTRACTED Result [facility] HEALTH MAINTENANCE Final Result * Hemoglobin A1c (06/29/2023) [facility] Hemoglobin A1C 5.2 <=6.5 % Blood Venous blood specimen / Unknown Result [facility] LAB BLOOD ORDERABLES Fely l Result * Lipid panel (06/29/2023) [facility] LDL/HDL Ratio 2 0 - 4 Triglycerides 142 0 - 150 mg/dL Cholesterol 172 0 - 200 mg/dL HDL 79 >=40 mg/dL LDL Cholesterol 65 0 - 100 mg/dL Blood Venous blood specimen / Unknown Result [facility] LAB BLOOD ORDERABLES Fely l Result * Diabetes Foot Exam (04/10/2023) [facility] Diabetes: Annual Foot Exam ABSTRACTED Result [facility] HEALTH MAINTENANCE Final Result * DXA BONE [...] bone mineral density by WHO criteria. The [facility] Department of Internal Medicine recommends using [...] alternative screening schedule based on albert Kincaid., [facility] April 14, 2011 for patients [...] bone mineral density by WHO criteria. The [facility] Department of Internal Medicine recommendsusing National [...] alternative screening schedule based on albert Kincaid., [facility] for patients with osteopenia (based on hip BMD T-score) is as follows: * advanced osteopenia (T scores -2.00 to -2.49), BMD testing every year * moderate osteopenia (T scores -1.50 to -1.99), BMD testing every 5years mild osteopenia or normal BMD (T scores -1.50 and higher), BMD testingevery 15 years Lemuel Yang MD [facility] [place] DXA PROCEDURES Fely l Result * Cervical Cancer Screening: HPV (04/28/2021) [facility] Cervical Cancer Screening: HPV negative,a bstracted Historical Provider HEALTH MAINTENANCE Final Result * Colonoscopy (02/16/2021) [facility] Colonoscopy no interpretation , abstracted Anatomical Region Laterality Modality Other [facility] Provider HEALTH MAINTENANCE Final Result * Hepatitis C Screening (12/07/2020) [facility] Hepatitis C Screening ABSTRACTED [facility] Provider HEALTH MAINTENANCE Final Result from Last 3 Months or Most Recently Relevant to Health Maintenance Additional Health Concerns Infection Onset Date Last Indicated Norovirus 05/08/2024 05/08/2024 Insurance [facility]IC[facility] Member Subscriber Plan / Payer (Ef fective 2023-Present) Name:Yanet King Relation to Subscriber:Self Name:Yanet King Payer ID:[id number] Group ID:[id number] Type:Not on file Address: [place] [address] [address] [phone] Advance Directives Documents on File Type Date Recorded 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
--- OUTSIDE RECORDS SUMMARY | 2024-06-13 10:38 | XMS_ITS ---
Author Organization [facility] Address [address] [address] Care Team Providers Care Foundry Finisher Name Role Phone Ayan Clayton Primary Care Provider SKYLAR Perez [phone] REASON FOR VISIT 3 month follow up Encounters Encounter Location Date Provider Diagnosis [facility] [address] [phone] 05/05/2023 SKYLAR HANNA Plan Of Treatment No Information Progress Notes * LUISYanetDOB:1955 (68 yo F)Acc No.[id number]:05/05/2023 Progress Note Patient:?LUIS Yanet Provider:?Skylar Hanna DPM :1955???Age:67 Y???Sex:Female D ate:05/05/2023 Address[place] [phone] Pcp:Ayan Clayton Subjective: * Chief Complaints: * ???1. 3 month follow up. * Medical History:? Objective: * Vitals:? Assessment: Plan: * Treatment: * Billing Information: * Visit Code:? * Procedure Codes:? * Electronic signature of RHIANNON HANNA D.P.M on 06/13/2024 at 10:38 AM EDT Sign off status: Pending * Provider:Shirley Hanna DPM Date:? 05/05/2023 Generated for Printi ng/Faxing/eTransmitting on:?06/13/2024 10:38 AM EDT
--- OUTSIDE RECORDS SUMMARY | 2024-06-13 10:39 | XMS_ITS | Patient Health Record ---
Author Organization [facility] Address [address] [place] [address] Care Team Providers Care Meeting Manager Name Role Phone LENNIE ALFARO Primary Care Provider Aide Salmeron Unavailable [phone] Allergies Allergen (clinical drug ingredient) Drug/Non Drug Allergy documented on EMR Reaction Allergy Type Onset Date Status semaglutide Ozempic pancreatitis Drug Allergy Ac tive metformin Metformin diarrhea Drug Allergy Active Substance with sulfonamide structure and antibacterial mechanism of action (substance) Sulfa Antibiotics anaphylaxis Drug Allergy Active Results Component Value Reference Range Notes CBC, Platelet, No Differenti al-[id number] Reviewed date:03/15/2024 01:40:27 PM Interpretation: Performing Lab:[facility], [address] [place] [address], [place], Phone - [phone], Director - Celia Notes/Report: WBC 8.0 3.4-10.8 x10E3/uL RBC 3.43 3.77-5.28 x10E6/uL Hemoglobin 9.1 11.1-15.9 g/dL Hematocrit 30.3 34.0-46.6 % MCV 88 79-97 fL MCH 26.5 26.6-33.0 pg MCHC 30.0 31.5-35.7 g/dL RDW 14.9 11.7-15.4 % Platelets 490 150-450 x10E3/uL COMPREHENSIVE METABOLIC PANE L Reviewed date:10/05/2023 12:32:01 PM Interpretation: Performing Lab: Notes/Report: Original Ordering Provider: LENNIE ALFARO MD GLUCOSE 91 70-100 mg/dL Reference range applicable to fasting specimens only BUN 21 5-25 mg/dL CREAT 1.21 0.5-1.1 mg/dL GLOMERULAR FILTRATION RATE 49 >60 This eGFR result was calculated using the CKD-EPI 2020 Creatinine Equation SODIUM 146 135-145 mEq/L POTASSIUM 3.9 3.5-5.5 mmol/L CHLORIDE 119 96-110 mmol/L CO2 16 21-32 mmol/L ANION GAP 11 3-11 CALCIUM 10.1 8.5-10.5 mg/dL TOTAL PROTEIN 6.7 6.0-8.0 G/dL ALBUMIN 3.5 3.2-5.0 G/dL BILI,TOTAL 0.3 0.0-1.4 mg/dL SGOT 22 10-42 U/L SGPT 16 10-60 U/L ALK PHOS 174 42-121 U/L GLYCOHEMOGLOBIN PROFILE Reviewed date:10/05/2023 08:38:21 AM Interpretation: Performing Lab: Notes/Report: Original Ordering Provider: LENNIE ALFARO MD [employer] [address] Psychiatry Adult Physician - Noemi Green MD GLYCATED HEMOGLOBIN A1C 4.7 <6.5 % ESTIMATED AVERAGE GLUCOSE 88 LIPID PROFILE Reviewed date:10/11/2023 09:18:44 AM Interpretation: Performing Lab: Notes/Report: CHOLESTEROL 185 0-200 mg/dL TRIGLYCERIDES 264 0-150 mg/dL HDL CHOLESTEROL 60 >40 mg/dL LDL CALCULATED 73 0-100 mg/dL TC-HDLC RATIO 3.1 0-4.4 mg/dL VITAMIN D, 25-HYDROXY Reviewed date:10/11/2023 09:19:01 AM Interpretation: Performing Lab: Notes/Report: [employer] [address] Psychiatry Adult Physician - Noemi Green MD VITAMIN D, 25-HYDROXY 26 30-80 ng/mL CBC With Differential/Platel et-[id number] Reviewed date:12/11/2023 08:03:32 AM Interpretation: Performing Lab:[facility] [place], [address] [facility], [place], Phone - [phone], Director - Celia Notes/Report: WBC 8.3 3.4-10.8 x10E3/uL RBC 3.07 3.77-5.28 x10E6/uL Hemoglobin 8.6 11.1-15.9 g/dL Hematocrit 28.5 34.0-46.6 % MCV 93 79-97 fL MCH 28.0 26.6-33.0 pg MCHC 30.2 31.5-35.7 g/dL RDW 14.4 11.7-15.4 % Platelets 386 150-450 x10E3/uL Neutrophils 76 Not Estab. % Lymphs 10 Not Estab. % Monocytes 9 Not Estab. % Eos 4 Not Estab. % Basos 1 Not Estab. % Neutrophils (Absolute) 6.2 1.4-7.0 x10E3/uL Lymphs (Absolute) 0.9 0.7-3.1 x10E3/uL Monocytes(Absolute) 0.8 0.1-0.9 x10E3/uL Eos (Absolute) 0.4 0.0-0.4 x10E3/uL Baso (Absolute) 0.1 0.0-0.2 x10E3/uL Immature Granulocytes 0 Not Estab. % Immature Grans (Abs) 0.0 0.0-0.1 x10E3/uL Comp. Metabolic Panel (14)-3 Reviewed date:11/20/2023 07:52:31 PM Interpretation: Performing Lab:[facility] [place], [address] [place] [address] Avenue, [place], Phone - [phone], Director - Celia Notes/Report: Clinical Information:SRC:UR Glucose 94 70-99 mg/dL BUN 13 8-27 mg/dL Creatinine 0.99 0.57-1.00 mg/dL eGFR 62 >59 mL/min/1.73 BUN/Creatinine Ratio 13 12-28 Sodium 142 134-144 mmol/L Potassium 5.2 3.5-5.2 mmol/L Chloride 105 96-106 mmol/L Carbon Dioxide, Total 22 20-29 mmol/L Calcium 8.0 8.7-10.3 mg/dL Protein, Total 5.2 6.0-8.5 g/dL Albumin 3.2 3.9-4.9 g/dL Globulin, Total 2.0 1.5-4.5 g/dL Bilirubin, Total 0.2 0.0-1.2 mg/dL Alkaline Phosphatase 131 44-121 IU/L AST (SGOT) 26 0-40 IU/L ALT (SGPT) 12 0-32 IU/L Urine Culture, Routine-[id number] 7 Reviewed date:11/20/2023 08:11:02 PM Interpretation: Performing Lab:[facility] [place], [address] [facility], Phone - [phone], Director - Celia Notes/Report: Clinical Information:SRC:UR Clinical Information:SRC:UR Urine Culture, Routine Final report Result 1 Klebsiella pneumoniae Greater than 100,000 colony forming units per mL Antimicrobial Susceptibility S = Susceptible; I = Intermediate; R = Resistant P = Positive; N = Negative MICS are expressed in micrograms per mL Antibiotic RSLT#1 RSLT#2 RSLT#3 RSLT#4 Amoxicillin/Clavulani c Acid R Ampicillin R Cefazolin R Cefepime S Ceftriaxone S Cefuroxime S Ciprofloxacin S Ertapenem S Gentamicin S Imipenem S Levofloxacin S Meropenem S Nitrofurantoin I Tetracycline S Tobramycin S Trimethoprim/Sulfa S CBC With Differential/Platel et-[id number] Reviewed date:11/20/2023 07:55:27 PM Interpretation: Performing Lab:[facility] [place], [address] [facility], Phone - [phone], Director - Celia Notes/Report: Clinical Information:SRC:UR WBC 12.2 3.4-10.8 x10E3/uL RBC 2.98 3.77-5.28 x10E6/uL Hemoglobin 8.7 11.1-15.9 g/dL Hematocrit 28.0 34.0-46.6 % MCV 94 79-97 fL MCH 29.2 26.6-33.0 pg MCHC 31.1 31.5-35.7 g/dL RDW 14.4 11.7-15.4 % Platelets 360 150-450 x10E3/uL Neutrophils 78 Not Estab. % Lymphs 9 Not Estab. % Monocytes 9 Not Estab. % Eos 2 Not Estab. % Basos 1 Not Estab. % Neutrophils (Absolute) 9.5 1.4-7.0 x10E3/uL Lymphs (Absolute) 1.1 0.7-3.1 x10E3/uL Monocytes(Absolute) 1.1 0.1-0.9 x10E3/uL Eos (Absolute) 0.2 0.0-0.4 x10E3/uL Baso (Absolute) 0.1 0.0-0.2 x10E3/uL Immature Granulocytes 1 Not Estab. % Immature Grans (Abs) 0.1 0.0-0.1 x10E3/uL Ferritin-[id number] Reviewed date:11/20/2023 07:46:40 PM Interpretation: Performing Lab:[address], Phone - [phone], Director - [facility] Notes/Report: Clinical Information:SRC:UR Ferritin 294 15-150 ng/mL Urinalysis, Complete-[id number] Reviewed date:11/20/2023 08:15:30 PM Interpretation: Performing Lab:[address], Phone - [phone], Director - [facility] Notes/Report: Clinical Information:SRC:UR Clinical Information:SRC:UR Specific [place] 1.014 1.005-1.030 pH 6.5 5.0-7.5 Urine-Color Yellow Yellow Appearance Cloudy Clear WBC Esterase 3+ Negative Protein 1+ Negative/Trace Glucose Negative Negative Ketones Negative Negative Occult Blood Trace Negative Bilirubin Negative Negative Urobilinogen,Semi-Qn 0.2 0.2-1.0 mg/dL Nitrite, Urine Negative Negative Microscopic Examination See below: Micr oscopic was indicated and was performed. WBC >30 0 - 5 /hpf RBC 0-2 0 - 2 /hpf Epithelial Cells (non renal) None seen 0 - 10 /hpf Casts None seen None seen /lpf Bacteria Few None seen/Few Magnesium-[id number] Reviewed date:11/20/2023 08:14:51 PM Interpretation: Performing Lab:[address], Phone - [phone], Director - [facility] Notes/Report: Clinical Information:SRC:UR Magnesium 1.4 1.6-2.3 mg/dL Iron and TIBC-[id number] Reviewed date:11/20/2023 07:51:16 PM Interpretation: Performing Lab:[address], Phone - [phone], Director - [facility] Notes/Report: Clinical Information:SRC:UR Iron Bind.Cap.(TIBC) 259 250-450 ug/dL UIBC 241 118-369 ug/dL Iron 18 27-139 ug/dL Iron Saturation 7 15-55 % Phosphorus-[id number] Reviewed date:11/20/2023 07:48:11 PM Interpretation: Performing Lab:[facility], [address] [place] [address], Phone - [phone], Director - Celia Notes/Report: Clinical Information:SRC:UR Phosphorus 4.3 3.0-4.3 mg/dL Basic Metabolic Panel (7)-30 3758 Reviewed date:03/16/2024 05:25:46 PM Interpretation: Performing Lab:[facility] [address], Phone - [phone], Director - Celia Notes/Report: Glucose 113 70-99 mg/dL BUN 21 8-27 mg/dL Creatinine 1.11 0.57-1.00 mg/dL eGFR 54 >59 mL/min/1.73 BUN/Creatinine Ratio 19 12-28 Sodium 146 134-144 mmol/L Potassium 5.0 3.5-5.2 mmol/L Chloride 108 96-106 mmol/L Carbon Dioxide, Total 18 20-29 mmol/L Ferritin-[id number] Reviewed date:03/15/2024 01:41:57 PM Interpretation: Performing Lab:[facility] [place], [address] [place] [address], Phone - [phone], Director - Celia Notes/Report: Ferritin 132 15-150 ng/mL Hemoglobin J7d-[id number] Reviewed date:03/16/2024 05:23:28 PM Interpretation: Performing Lab:[facility] [address], Phone - [phone], Director - Celia Notes/Report: Hemoglobin A1c 7.0 4.8-5.6 % . Prediabetes: 5.7 - 6.4 Diabetes: >6.4 Glycemic control for adults with diabetes: <7.0 Iron and TIBC-[id number] Reviewed date:03/15/2024 01:41:09 PM Interpretation: Performing Lab:[facility] [address], Phone - [phone], Director - Celia Notes/Report: Iron Bind.Cap.(TIBC) 277 250-450 ug/dL UIBC 235 118-369 ug/dL Iron 42 27-139 ug/dL Iron Saturation 15 15-55 % Reason For Referral Reason Evaluation and manag ement Diagnosis 1 Nausea with vomiting , unspecified (R11.2) Referral Organization [facility] Referring Provider First Name LENNIE Referring Provider Last Name [facility] Referring Provider Speciality Internal edicine Referred Provider Specialty Gastroentero logy General Notes Referral faxed to [facility] - Dept will call patient for scheduling.Tevin Latraya 10/02/2023 04:17:02 PM > Referral Priority Routine Reason Evaluation and manag ement Diagnosis 1 Complaints of memory disturbance (R41.3) Referral Organization [facility] Referring Provider First Name Aide Referring Provider Last Name Jaron Referred Provider Specialty Neurology General Notes Referral sent to [facility] - Office will call patient for scheduling.Tevin Latraya 11/16/2023 02:06:05 PM > Referral Priority Routine Reason Evaluation and manag ement - Dr Lewis Diagnosis 1 Acute embolism and t hrombosis of unspecified deep veins of left lower extremity (I82.402) Referral Organization [facility] Referring Provider First Name LENNIE Referring Provider Last Name LASHON Referring Provider Speciality Internal edicine Referred Provider Specialty Hematology General Notes Referral sent to Dr. Lewis - Office will call patient for scheduling.Tevin Latraya 12/07/2023 12:29:49 PM > Referral Priority Routine Reason Evaluation and manag ement Diagnosis 1 Type 2 diabetes alida itus with unspecified complications (E11.8) Referral Organization [facility] Referring Provider First Name LENNIE Referring Provider Last Name LASHON Referring Provider Speciality Internal edicine Referred Provider Specialty Podiatry General Notes Referral sent to [facility] in [place] - Office will call patient for scheduling.Tevin Latraya 01/04/2024 02:46:45 PM > Referral Priority Routine Medications Medication SIG (Take, Route, Frequency, Duration) Notes Start Date End Date Status Acetaminophen Extra Strength 500 MG 2 tablet as needed Orally every 6 hrs Active Tylenol 8 Hour Arthritis Pain 650 MG 2 tablets as needed Orally every 8 hrs for 30 days 02/01/2024 Not-Taking Ventolin HFA 108 (90 Base) MCG/ACT 1 puff as needed Inhalation every 4 hrs Active Atorvastatin Calcium 20 MG 1 tablet Orally Once a day for 90 days Active B Complex - 1 TAB Orally DAILY for 90 days one daily Active Sodium Bicarbonate 650 MG 1 TAB Orally 2 TIMES A DAY for 30 days Active Ozempic (2 MG/DOSE) 8 MG/3ML 2 mg Subcutaneous once a week for 30 days Not-Taking Tylenol Arthritis Pain Active Paxlovid (300/100) 20 x 150 MG & 10 x 100MG 3 tablets Orally Twice a day for 5 days 11/02/2023 Not-Taking Diclofenac Sodium 1 % as directed Externally 2 times a day for 30 days 2 gms 12/07/2023 Active Aspirin 81 MG 1 tablet Orally Once a day Not-Taking Naloxone HCl 4 MG/0.1ML as directed Nasally prn for 30 days 01/04/2024 Active Lisinopril 2.5 MG 1 tablet Orally Once a day 09/25/2023 Not-Taking Ferrous Sulfate 325 (65 Fe) MG 1 tablet Orally Once a day for 30 days 11/20/2023 Active Amoxicillin-Pot Clavulanate 500-125 MG 1 tablet Orally every 12 hrs for 7 days 11/17/2023 Not-Taking Cetirizine HCl 10 MG 1 tablet Orally Once a day for 90 days Active Enoxaparin Sodium 60 MG/0.6ML as directed Injection once a day 09/25/2023 Not-Taking Vancomycin HCl 125 MG 1 capsule Orally every 6 hours 12 days Not-Taking hydrOXYzine HCl 50 MG 1 tablet Orally Twice a day Not-Taking Omeprazole 20 MG 1 capsule 30 minutes before morning meal Orally Once a day for 90 days 09/25/2023 Active Morphine Sulfate ER 15 MG 1 tablet Orally once a day for 28 days Partial Fill upon Patient Request Partial Fill Upon Patient Request 06/05/2024 Active oxyCODONE HCl 10 MG 1 tablet Orally 3 times a day for 14 days Partial Fill upon Patient Request Partial Fill Upon Patient Request 06/05/2024 Active Apixaban 5 MG 1 tablet Orally twice a day for 30 days Active Lidocaine 4 % 1 patch as needed Externally Once a day for 30 days 02/01/2024 Active Fluticasone-Salmeter ol 230-21 MCG/ACT 2 puffs Inhalation Twice a day Active Docusate Sodium 100 mg TAKE ONE CAPSULE BY MOUTH TWICE DAILY for 30 Not-Taking Nystatin 790510 UNIT/GM 1 application Externally Twice a day along with the nystatin cream Active Diclofenac Sodium 3 % 1 application Externally Twice a day for 30 days 02/01/2024 Not-Taking Albuterol Sulfate (2.5 MG/3ML) 0.083% 3 ml as needed Inhalation every 6 hrs Active Ondansetron 4 MG 1 tablet on the tongue and allow to dissolve Orally twice daily for 30 days 09/25/2023 Not-Taking Deep Sea Nasal Delta 0.65 % 2 sprays in each nostril as needed Nasally every 2 hrs Active Vitamin D3 25 MCG (1000 UT) 1 tablet Orally Once a day for 30 days Not-Taking Vitamin B12 1000 MCG 1 tablet Orally Once a day Not-Taking Complex B-100 - as directed Orally 03/06/2024 Active Multivitamin - 1 tablet Orally Once a day Not-Taking Thiamine HCl 100 MG 1 tablet Orally Once a day Not-Taking MiraLax 17 GM 1 packet mixed with 8 ounces of fluid Orally twice a day as needed Not-Taking tiZANidine HCl 4 MG 1 tablet at bedtime as needed Orally Once a day for 30 days Active Wheelchair - Wheelchair with legs as directed; DX: M15.9, M51.35 for 30 days 03/29/2024 Active DULoxetine HCl 30 mg TAKE ONE CAPSULE DAILY for 30 Active Ezetimibe 10 mg TAKE ONE TABLET EVERY DAY for 30 Active Immunizations Vaccine Route Administration Date Status Comme nts COVID Moderna Unknown 05/26/2020 Administered COVID Moderna Unknown 06/23/2020 Administered COVID Moderna Unknown 05/03/2021 Administered COVID-19 Moderna Unknown 02/12/2022 Administered Fluzone High Dose 06035 IM Intramuscular 01/04/2024 Admini stered High Dose Fluzone +65 Unknown 12/07/2021 Administered Influenza, high dose seasonal Unknown 12/22/2020 Administered Pneumococcal conjugate PCV 13 Unknown 02/03/2021 Administered Pneumococcal polysaccharide PPV23 Unknown 12/21/2004 Administered Shingrix Unknown 03/13/2019 Administered Shingrix Unknown 05/16/2019 Administered Tdap Unknown 01/30/2012 Administered Social History Tobacco Use: Social History Observation Description Date Details (start date - stop date) Former Smoker NA - NA Tobacco Use/Smoking Question Answer Notes Are you a former smoker How long has it been since you last smoked? > 10 years Alcohol Screen (Audit-C) Question Answer Notes Did you have a drink containing alcohol in the p ast year? No Points 0 Interpretation Negative Section Notes: Nonsmoker ETOH- No Nonsmoker ETOH- No Problems Problem Type SNOMED Code ICD Code Onset Dates Problem Status W/U Status Risk Notes Problem Iron deficiency anemia (34499632) Iron deficiency anemia, unspecified (D50.9) Active confirmed Problem Anemia (780090600) Anemia, unspecified (D64.9) Active confirmed Problem Disorder due to type 2 diabetes mellitus (574092270) Type 2 diabetes mellitus with unspecified complications (E11.8) Active confirmed Problem Type II diabetes mellitus without complication (340548030) Type 2 diabetes mellitus without complications (E11.9) Active confirmed Problem Vitamin D deficiency (17149695) Vitamin D deficiency, unspecified (E55.9) Active confirmed Problem Morbid obesity (disorder) (252262502) Morbid (severe) obesity due to excess calories (E66.01) Active confirmed Problem Obesity due to excess calories (482835210) Other obesity due to excess calories (E66.09) Active confirmed Problem Mixed hyperlipidemia (448278797) Mixed hyperlipidemia (E78.2) Active confirmed Problem Major depression, single episode (00097426) Major depressive disorder, single episode, unspecified (F32.9) Active confirmed Problem Chronic pain syndrome (527391438) Chronic pain syndrome (G89.4) Active confirmed Problem Essential hypertension (77548584) Essential (primary) hypertension (I10) Active confirmed Problem Uncomplicated mild persistent asthma (953374439) Mild persistent asthma, uncomplicated (J45.30) Active confirmed Problem Osteoarthritis (780332357) Polyosteoarthriti s, unspecified (M15.9) Active confirmed Problem Degeneration of thoracolumbar intervertebral disc (21293780) Other intervertebral disc degeneration, 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) Active confirmed Problem Long-term current use of insulin (595759135) FDC (current) use of insulin (Z79.4) Active confirmed Problem Presence of orthopedic joint implant (763852338) Presence of right artificial shoulder joint (Z96.611) Active confirmed Problem History of artificial joint (572319057) Presence of left artificial hip joint (Z96.642) Active confirmed Problem Amnesia (39505076) Complaints of memory disturbance (R41.3) Active confirmed Problem Acute pancreatitis (634933300) Acute pancreatitis (K85.90) Active confirmed Vital Signs Heart Rate 57 /min 06/05/2024 Temperature 97.4 degrees Fahrenheit 04/24/2024 Blood pressure diastolic 60 mm Hg 06/05/2024 Oximetry 92 % 06/05/2024 Height 60 in 06/05/2024 Blood pressure systolic 92 mm Hg 06/05/2024 Weight 131.2 lbs 06/05/2024 BMI 25.62 kg/m2 06/05/2024 Encounters Encounter Location Date Provider Diagnosis [address] [place] [address] 12/07/2023 HOGEU GUL Enterocolitis due to Clostridium difficile, not specified as recurrent A04.72 ; Acute embolism and thrombosis of unspecified deep veins of left lower extremity I82.402 and Other intervertebral disc degeneration, thoracolumbar region M51.[address] [place] [address] 03/18/2024 HOGUE GUL [address] [place] [address] 07/04/2023 HOGUE GUL Other obesity due to excess calories E66.09 and Dietary counseling and surveillance Z71.[address] [place] [address] 08/02/2023 HOGUE GUL Other obesity due to excess calories E66.09 and Dietary counseling and surveillance Z71.[address] [place] [address] 09/25/2023 [facility] Nausea R11.0 and Presence of left artificial hip joint Z96.[address] [place] [address] 10/02/2023 HOGUE GUL Other obesity due to excess calories E66.09 ; Dietary counseling and surveillance Z71.3 ; Vitamin D deficiency, unspecified E55.9 ; Mixed hyperlipidemia E78.2 and Type 2 diabetes mellitus with unspecified complications E11.[address] [place] [address] 11/16/2023 [facility] discharge follow-up Z09 ; Acute pancreatitis K85.90 ; Hypokalemia E87.6 ; Mild persistent asthma, uncomplicated J45.30 ; Acute kidney failure, unspecified N17.9 ; COVID U07.1 ; Type 2 diabetes mellitus with unspecified complications E11.8 ; Anemia, unspecified D64.9 ; Essential (primary) hypertension I10 ; Edema, unspecified R60.9 ; Difficult or painful urination R30.0 ; Type 2 diabetes mellitus without complications E11.9 and Complaints of memory disturbance R41.[address] [place] [address] 11/23/2023 Aide Salmeron Essential (primary) hypertension I10 and Type 2 diabetes mellitus with unspecified complications E11.[address] [place] [address] 12/01/2023 HOGUE GUL Hypotension, unspecified I95.9 and Acute embolism and thrombosis of unspecified deep veins of left lower extremity I82.[address] [place] [address] 01/04/2024 HOGUE GUL Other intervertebral disc degeneration, thoracolumbar region M51.35 ; Encounter for immunization Z23 and Acute embolism and thrombosis of unspecified deep veins of left lower extremity I82.[address] [place] [address] 02/01/2024 HOGUE GUL Other intervertebral disc degeneration, thoracolumbar region M51.35 ; Major depressive disorder, single episode, unspecified F32.9 and Acute embolism and thrombosis of unspecified deep veins of left lower extremity I82.[address] [place] [address] 03/01/2024 HOGUE GUL Other intervertebral disc degeneration, thoracolumbar region M51.35 ; Major depressive disorder, single episode, unspecified F32.9 and Acute embolism and thrombosis of unspecified deep veins of left lower extremity I82.[address] [place] [address] 03/06/2024 Aide luxan ce Z01.[address] [place] [address] [facility] [address] [place] [address] 03/29/2024 HOUGE GUL Chronic pain syndrom e G89.4 ; Polyosteoarthritis, unspecified M15.9 and Other intervertebral disc degeneration, thoracolumbar region M51.35 [facility] [address] [facility] [address] [place] [address] 04/24/2024 HOGUE GUL Chronic pain syndrom e G89.4 ; Polyosteoarthritis, unspecified M15.9 and Other intervertebral disc degeneration, thoracolumbar region M51.35 [facility] [address] [facility] [address] [place] [address] 06/05/2024 Ghadeer Mikoloum Chronic pain syndrom e G89.4 ; Polyosteoarthritis, unspecified M15.9 ; Other intervertebral disc degeneration, thoracolumbar region M51.35 ; Presence of right artificial shoulder joint Z96.611 ; Mixed hyperlipidemia E78.2 and Type 2 diabetes mellitus with unspecified complications E11.8 [facility] [address] [facility] [address] [place] [address] 06/05/2024 [facility] [address] [facility] [address] [place] [address] 08/11/2023 [facility] [address] [facility] [address] [place] [address] 10/11/2023 HOGUE GUL Mixed hyperlipidemia E78.2 [facility] [address] [facility] [address] [place] [address] 10/19/2023 [facility] [address] [facility] [address] [place] [address] 10/24/2023 [facility] [address] [facility] [address] [place] [address] 10/31/2023 [facility] [address] [facility] [address] [place] [address] 11/02/2023 [facility] [address] [facility] [address] [facility] [place] [address] 11/09/2023 [facility] [address] [facility] [address] [place] [address] 11/10/2023 [facility] [address] [facility] [address] [place] [address] 11/10/2023 [facility] [address] [facility] [address] [place] [address] 11/14/2023 [facility] [address] [facility] [address] [facility] [place] [address] 11/16/2023 [facility] [address] [facility] [address] [facility] [place] [address] 11/17/20[facility] Urinary tract infection, site not specified N39.0 [facility] [address] [facility] [address] [facility] [place] [address] 11/20/2023 [facility] Urinary tract infection, site not specified N39.0 and Iron deficiency anemia, unspecified D50.9 [facility] [address] [facility] [address] [facility] [place] [address] 11/27/2023 [facility] [address] [facility] [address] [facility] [place] [address] 11/28/2023 [facility] [address] [facility] [address] [facility] [place] [address] 12/06/2023 [facility] [address] [facility] [address] [facility] [place] [address] 12/14/2023 [facility] [address] [facility] [address] [facility] [place] [address] 12/21/2023 [facility] [address] [facility] [address] [facility] [place] [address] 01/04/2024 [facility] [address] [facility] [address] [facility] [place] [address] 01/04/2024 [facility] [address] [facility] [address] [facility] [place] [address] 01/04/2024 [facility] [address] [facility] [address] [facility] [place] [address] 01/26/2024 [facility] [address] [facility] [address] [facility] [place] [address] 01/30/2024 [facility] [address] [facility] [address] [facility] [place] [address] 02/06/2024 [facility] [address] [facility] [address] [facility] [place] [address] 02/16/2024 [facility] [address] [facility] [address] [facility] [place] [address] 02/19/2024 [facility] [address] [facility] [address] [facility] [place] [address] 02/28/2024 [facility] [address] [facility] [address] [facility] [place] [address] 03/01/2024 [facility] [address] [facility] [address] [facility] [place] [address] 03/01/2024 [facility] [address] [facility] [address] [facility] [place] [address] 03/14/2024 [facility] [address] [facility] [address] [facility] [place] [address] 03/15/2024 [facility] [address] [facility] [address] [facility] [place] [address] 03/22/2024 [facility] [address] [facility] [address] [facility] [place] [address] 03/29/2024 [facility] [address] [facility] [address] [facility] [place] [address] 03/29/2024 [facility] [address] [facility] [address] [place] [address] 04/15/2024 [facility] [address] [address] [place] [address] 04/23/2024 [facility] [address] [facility] [address] [place] [address] 06/05/2024 [facility] [address] [facility] [address] [place] [address] 06/12/2024 HOG[facility] GU Assessments Encounter Date Diagnosis (ICD Code) Assessment Notes Treatment Notes Treatment Clinical Notes Section Notes 08/02/2023 Other obesity due to excess calories (ICD-10 - E66.09) Ms King is a 67 year old with is here today for medical weight management. We saw her in June. She lost 88 lbs in total and lost 11 lbs since last visit. Her goal is 130 lbs. Advised to be more aggressive with dietary restrictions and regimental exercise. Advised to measure portions. She had left ankle fusion and a hip replacement. Dietary recommendations. She sees skin washer at [facility] once a month. Food recall was done today and patient advised to be on low calorie, low carbohydrate diet. Restrict calories to less than 1500 kcal in 24 hours. Low glycemic index foods and encouraged. Meal replacements were recommended. Advised to use piig-qwf-lbcofau multivitamins and vitamin D. Advised to use calorie counter and adhere to portion control. Monthly goal is to lose 4-6 pounds Pharmacotherapy. Continue Ozempic. Exercise. she cannot do exercise because of her significant osteoarthritis of bilateral lower extremities. She is going to pain management/headache s at [facility] for intra-articular injections Assess. Different risk factors discussed with the patient and addressed Advise. She was given clear And specific advise that she will comply with Low-calorie diet and try not to exceed more than 1300 kcal in 24 hours. Agree. Mutually agreed to work together to achieve appropriate goals Assist. Motivational interviewing done. Arrange. Follow-up appointment arranged. Counseling. 15 minutes spent Face to face with the patient more than 50% of time was spent counseling Scribe services used to formulate this note under HIPAA compliance and under [place] law mandated for scribe services. Patient aware of service. Verbal consent and written consent taken from the patient. Patient understands and verbalizes understanding of the scribes services and all questions answered regarding scribes services. Patient agrees to use of scribes services. 08/02/2023 Dietary counseling and surveillance (ICD-10 - Z71.3) Ms King is a 67 year old with is here today for medical weight management. We saw her in June. She lost 88 lbs in total and lost 11 lbs since last visit. Her goal is 130 lbs. Advised to be more aggressive with dietary restrictions and regimental exercise. Advised to measure portions. She had left ankle fusion and a hip replacement. Dietary recommendations. She sees skin washer at [facility] once a month. Food recall was done today and patient advised to be on low calorie, low carbohydrate diet. Restrict calories to less than 1500 kcal in 24 hours. Low glycemic index foods and encouraged. Meal replacements were recommended. Advised to use jlaf-knq-slkaahx multivitamins and vitamin D. Advised to use calorie counter and adhere to portion control. Monthly goal is to lose 4-6 pounds Pharmacotherapy. Continue Ozempic. Exercise. she cannot do exercise because of her significant osteoarthritis of bilateral lower extremities. She is going to pain management/headache s at [facility] for intra-articular injections Assess. Different risk factors discussed with the patient and addressed Advise. She was given clear And specific advise that she will comply with Low-calorie diet and try not to exceed more than 1300 kcal in 24 hours. Agree. Mutually agreed to work together to achieve appropriate goals Assist. Motivational interviewing done. Arrange. Follow-up appointment arranged. Counseling. 15 minutes spent Face to face with the patient more than 50% of time was spent counseling Scribe services used to formulate this note under HIPAA compliance and under [place] law mandated for scribe services. Patient aware of service. Verbal consent and written consent taken from the patient. Patient understands and verbalizes understanding of the scribes services and all questions answered regarding scribes services. Patient agrees to use of scribes services. 09/25/2023 Nausea (ICD-10 - R11.0) Yanet is a 67-year-old female with a pmhx of T2DM on ozempic, HLD, Asthma, Vitamin D deficiency is here for post-op visit. She recently had a left hip arthroplasty and then had a left hip arthroplasty revision after left femur periprosthetic fracture. Surgery wsa done at [facility] on 09/07. She went tp [facility] on September 12. Plan as follows: Left hip arthroplasty, femur periprothesis fracture s/p revision hip arthroplasty. - She had an appt last week with orthopedic. They have done an X-ray and removed claudia. She has an upcoming appt next week with them again. - She has not taken Levonox since her hospital discharge, as it was supposed to be refilled . Based on the surgical report and orthopedic recommendation, to be on Levonox for 6 weeks. We resumed Levonox for 3 more weeks and patient will discuss it with her orthopedic. She is educated if her calf gets swollen/eryhtematou s and tender to touch she must call back or go to the ER to r/o DVT. - She is currently ambulating using a walker. She has an established appt with PT next week. Nausea: - States that she gets nauseous while eating. No vomiting, diarrhea. She is currently on Ozempic 2.5mg. Discomfort to palpate epigastric area. DDx: gastritis due to being on celebrix/iburprofen /meloxicam educated patient to discontinue these meds especially given her age, dyspepsia could be due to acid reflux, it can also be due to S/E of ozempic. We have started patient on Omeprazole 20mg once a day. We have also added zofran 4mg as needed. Patient seen and examined with PA. Agree with the above mentioned assessment and plan 09/25/2023 Presence of left artificial hip joint (ICD-10 - Z96.642) Yanet is a 67-year-old female with a pmhx of T2DM on ozempic, HLD, Asthma, Vitamin D deficiency is here for post-op visit. She recently had a left hip arthroplasty and then had a left hip arthroplasty revision after left femur periprosthetic fracture. Surgery wsa done at [facility] on 09/07. She went tp [facility] on September 12. Plan as follows: Left hip arthroplasty, femur periprothesis fracture s/p revision hip arthroplasty. - She had an appt last week with orthopedic. They have done an X-ray and removed claudia. She has an upcoming appt next week with them again. - She has not taken Levonox since her hospital discharge, as it was supposed to be refilled . Based on the surgical report and orthopedic recommendation, to be on Levonox for 6 weeks. We resumed Levonox for 3 more weeks and patient will discuss it with her orthopedic. She is educated if her calf gets swollen/eryhtematou s and tender to touch she must call back or go to the ER to r/o DVT. - She is currently ambulating using a walker. She has an established appt with PT next week. Nausea: - States that she gets nauseous while eating. No vomiting, diarrhea. She is currently on Ozempic 2.5mg. Discomfort to palpate epigastric area. DDx: gastritis due to being on celebrix/iburprofen /meloxicam educated patient to discontinue these meds especially given her age, dyspepsia could be due to acid reflux, it can also be due to S/E of ozempic. We have started patient on Omeprazole 20mg once a day. We have also added zofran 4mg as needed. Patient seen and examined with PA. Agree with the above mentioned assessment and plan 10/02/2023 Dietary counseling and surveillance (ICD-10 - Z71.3) Ms King is a 67 year old with is here today for medical weight management. We saw her in September. She lost 88 lbs in total and no significant weight loss since last visit. Advised to be more aggressive with dietary restrictions and regimental exercise. Advised to measure portions. She had left ankle fusion and a hip replacement. Plan is as follows: Vitamin D deficiency. She takes vitamin D supplements. Check levels. Hyperlipidemia. Continue Atorvastatin 20 MG. Check lipid panel. Type II diabetes mellitus. She is on right medications. She has seen an phonograph cartridge assembler for the past year. Foot care discussed. check A1c. Nausea/vomiting. Advised not to take too much ibuprofen. Start Omeprazole 20 MG. Referred to GI. Dietary recommendations. She sees skin washer at [facility] once a month. Food recall was done today and patient advised to be on low calorie, low carbohydrate diet. Restrict calories to less than 1500 kcal in 24 hours. Low glycemic index foods and encouraged. Meal replacements were recommended. Advised to use civc-fuf-yylkqku multivitamins and vitamin D. Advised to use calorie counter and adhere to portion control. Monthly goal is to lose 4-6 pounds Pharmacotherapy. Continue Ozempic. Exercise. she cannot do exercise because of her significant osteoarthritis of bilateral lower extremities. She is going to pain management/headache s at [facility] for intra-articular injections Assess. Different risk factors discussed with the patient and addressed Advise. She was given clear And specific advise that she will comply with Low-calorie diet and try not to exceed more than 1300 kcal in 24 hours. Agree. Mutually agreed to work together to achieve appropriate goals Assist. Motivational interviewing done. Arrange. Follow-up appointment arranged. Counseling. 15 minutes spent Face to face with the patient more than 50% of time was spent counseling Screening blood work before next appointment. Scribe services used to formulate this note under HIPAA compliance and under [place] law mandated for scribe services. Patient aware of service. Verbal consent and written consent taken from the patient. Patient understands and verbalizes understanding of the scribes services and all questions answered regarding scribes services. Patient agrees to use of scribes services. 10/11/2023 Mixed hyperlipidemia (ICD-10 - E78.2) 11/17/2023 Urinary tract infection, site not specified (ICD-10 - N39.0) 10/02/2023 Other obesity due to excess calories (ICD-10 - E66.09) Ms King is a 67 year old with is here today for medical weight management. We saw her in September. She lost 88 lbs in total and no significant weight loss since last visit. Advised to be more aggressive with dietary restrictions and regimental exercise. Advised to measure portions. She had left ankle fusion and a hip replacement. Plan is as follows: Vitamin D deficiency. She takes vitamin D supplements. Check levels. Hyperlipidemia. Continue Atorvastatin 20 MG. Check lipid panel. Type II diabetes mellitus. She is on right medications. She has seen an phonograph cartridge assembler for the past year. Foot care discussed. check A1c. Nausea/vomiting. Advised not to take too much ibuprofen. Start Omeprazole 20 MG. Referred to GI. Dietary recommendations. She sees skin washer at [facility] once a month. Food recall was done today and patient advised to be on low calorie, low carbohydrate diet. Restrict calories to less than 1500 kcal in 24 hours. Low glycemic index foods and encouraged. Meal replacements were recommended. Advised to use nfpj-ewm-fkymqnw multivitamins and vitamin D. Advised to use calorie counter and adhere to portion control. Monthly goal is to lose 4-6 pounds Pharmacotherapy. Continue Ozempic. Exercise. she cannot do exercise because of her significant osteoarthritis of bilateral lower extremities. She is going to pain management/headache s at [facility] for intra-articular injections Assess. Different risk factors discussed with the patient and addressed Advise. She was given clear And specific advise that she will comply with Low-calorie diet and try not to exceed more than 1300 kcal in 24 hours. Agree. Mutually agreed to work together to achieve appropriate goals Assist. Motivational interviewing done. Arrange. Follow-up appointment arranged. Counseling. 15 minutes spent Face to face with the patient more than 50% of time was spent counseling Screening blood work before next appointment. Scribe services used to formulate this note under HIPAA compliance and under [place] law mandated for scribe services. Patient aware of service. Verbal consent and written consent taken from the patient. Patient understands and verbalizes understanding of the scribes services and all questions answered regarding scribes services. Patient agrees to use of scribes services. 11/20/2023 Urinary tract infection, site not specified (ICD-10 - N39.0) 11/23/2023 Essential (primary) hypertension (ICD-10 - I10) Yanet is a 67-year-old female with a pmhx of T2DM on Ozempic, HLD, Asthma, vitamin D deficiency, s/p hip arthroplasty is here for BP check. Plan as follows: HTN: - BP is running low in the office. oxygen saturation is normal and HR are normal. She has 3+ BL leg edema. Weight gain of 7lbs since the last visit. Patient is somenlent. States that it is due to taking medications in the morning that make her sleepy. We have called the EMS to transfer the patient to the Hospital, as she was previously admitted to ICU for hypotension. I have rendered the services for this patient under direct supervision of Dr. Alfaro, who did not see the patient but was available upon request 12/01/2023 Acute embolism and thrombosis of unspecified deep veins of left lower extremity (ICD-10 - I82.402) Yanet is a 67-year-old female with a pmhx of T2DM on ozempic, HLD, Asthma, Vitamin D deficiency is here for hospital discharge follow up. She was recently admitted at [facility] on 11/09/2023 due to cough and abdominal pain with nausea and vomiting, altered mental status parent had another patient after that for low blood pressure and was found to have left lower extremity DVT. CT was negative for pulmonary embolism. Today she is very somnolent and dosing off during interview and her blood pressure is low. Plan is as follows: Low blood pressure. Differential is dehydration because of diarrhea, low PO intake, adrenal insufficiency She was advised to go to the hospital for IV hydration and to rule out infections or sepsis. Left lower extremity DVT. She is currently on Eliquis and she is stable Scribe services used to formulate this note under HIPAA compliance and under [place] law mandated for scribe services. Patient aware of service. Verbal consent and written consent taken from the patient. Patient understands and verbalizes understanding of the scribes services and all questions answered regarding scribes services. Patient agrees to use of scribes services. 12/01/2023 Hypotension, unspecified (ICD-10 - I95.9) Yanet is a 67-year-old female with a pmhx of T2DM on ozempic, HLD, Asthma, Vitamin D deficiency is here for hospital discharge follow up. She was recently admitted at [facility] on 11/09/2023 due to cough and abdominal pain with nausea and vomiting, altered mental status parent had another patient after that for low blood pressure and was found to have left lower extremity DVT. CT was negative for pulmonary embolism. Today she is very somnolent and dosing off during interview and her blood pressure is low. Plan is as follows: Low blood pressure. Differential is dehydration because of diarrhea, low PO intake, adrenal insufficiency She was advised to go to the hospital for IV hydration and to rule out infections or sepsis. Left lower extremity DVT. She is currently on Eliquis and she is stable Scribe services used to formulate this note under HIPAA compliance and under [place] law mandated for scribe services. Patient aware of service. Verbal consent and written consent taken from the patient. Patient understands and verbalizes understanding of the scribes services and all questions answered regarding scribes services. Patient agrees to use of scribes services. 12/07/2023 Acute embolism and thrombosis of unspecified deep veins of left lower extremity (ICD-10 - I82.402) Yanet is a 67-year-old female with a pmhx of T2DM on ozempic, HLD, Asthma, Vitamin D deficiency is here for hospital discharge follow up. She was recently hospitalized at [facility] from 11/02 to 11/08 for pancreatitis, ALE, COVID-19 with recent UTI. Plan is as follows: Low blood pressure. Most likely due to infection. Continue antibiotics. Advised appropriate hydration. Advised to wash hands frequently. DDD. Start Diclofenac as directed, 2 times a day. Continue oxycodone 10 mg. Left lower extremity DVT. She is currently on Eliquis and she is stable. Discharge notes discussed with patient and questions answered. Scribe services used to formulate this note under HIPAA compliance and under [place] law mandated for scribe services. Patient aware of service. Verbal consent and written consent taken from the patient. Patient understands and verbalizes understanding of the scribes services and all questions answered regarding scribes services. Patient agrees to use of scribes services. 01/04/2024 Other intervertebral disc degeneration, thoracolumbar region (ICD-10 - M51.35) Yanet is a 68-year-old female with a pmhx of T2DM on ozempic, HLD, Asthma, Vitamin D deficiency is here follow up. Plan is as follows: DDD. She has long-standing history of degenerative disc disease and she is seeing pain management and had intra-facet injections in the past with no significant relief. She is on pain management for a long time. Continue Diclofenac as directed, 2 times a day along with oxycodone 10 mg and we started Morphine ER 10 MG once a day. She is on controlled substance contract. Start Naloxone 4 MG/0.1ML, PRN as directed. Advised safekeeping of medications. Left lower extremity DVT. She is currently on Eliquis and she is stable. She follows up with hematology. General health concerns discussed with patient. Scribe services used to formulate this note under HIPAA compliance and under [place] law mandated for scribe services. Patient aware of service. Verbal consent and written consent taken from the patient. Patient understands and verbalizes understanding of the scribes services and all questions answered regarding scribes services. Patient agrees to use of scribes services. 01/04/2024 Encounter for immunization (ICD-10 - Z23) Yanet is a 68-year-old female with a pmhx of T2DM on ozempic, HLD, Asthma, Vitamin D deficiency is here follow up. Plan is as follows: DDD. She has long-standing history of degenerative disc disease and she is seeing pain management and had intra-facet injections in the past with no significant relief. She is on pain management for a long time. Continue Diclofenac as directed, 2 times a day along with oxycodone 10 mg and we started Morphine ER 10 MG once a day. She is on controlled substance contract. Start Naloxone 4 MG/0.1ML, PRN as directed. Advised safekeeping of medications. Left lower extremity DVT. She is currently on Eliquis and she is stable. She follows up with hematology. General health concerns discussed with patient. Scribe services used to formulate this note under HIPAA compliance and under [place] law mandated for scribe services. Patient aware of service. Verbal consent and written consent taken from the patient. Patient understands and verbalizes understanding of the scribes services and all questions answered regarding scribes services. Patient agrees to use of scribes services. 02/01/2024 Major depressive disorder, single episode, unspecified (ICD-10 - F32.9) Yanet is a 68-year-old female with a pmhx of T2DM on ozempic, HLD, Asthma, Vitamin D deficiency is here follow up. She complained of being depressed and she is tearful without reason. Plan is as follows: DDD. She has long-standing history of degenerative disc disease and she is seeing pain management and had intra-facet injections in the past with no significant relief. She is on pain management for a long time. Start Lidocaine Patch, as needed alomg with TylenolArthritis 650 MG, 2 tablets as needed. Continue Diclofenac topical gel 3% 2 times a day along with oxycodone 10 mg and we started Morphine ER 15 MG once a day. She is on controlled substance contract. Continue Naloxone 4 MG/0.1ML, PRN as directed. Advised safekeeping of medications. Left lower extremity DVT. She is currently on Eliquis and she is stable. She follows up with hematology. according to patient she may have a procedure for a filter placed next week. Major depression. She is started on Cymbalta 30 mg 1 tablet daily. Side effects explained. This will help with anxiety/depression and also with pain. We will titrate up the medication as needed General health concerns discussed with patient. Scribe services used to formulate this note under HIPAA compliance and under [place] law mandated for scribe services. Patient aware of service. Verbal consent and written consent taken from the patient. Patient understands and verbalizes understanding of the scribes services and all questions answered regarding scribes services. Patient agrees to use of scribes services. 02/01/2024 Other intervertebral disc degeneration, thoracolumbar region (ICD-10 - M51.35) Yanet is a 68-year-old female with a pmhx of T2DM on ozempic, HLD, Asthma, Vitamin D deficiency is here follow up. She complained of being depressed and she is tearful without reason. Plan is as follows: DDD. She has long-standing history of degenerative disc disease and she is seeing pain management and had intra-facet injections in the past with no significant relief. She is on pain management for a long time. Start Lidocaine Patch, as needed alomg with TylenolArthritis 650 MG, 2 tablets as needed. Continue Diclofenac topical gel 3% 2 times a day along with oxycodone 10 mg and we started Morphine ER 15 MG once a day. She is on controlled substance contract. Continue Naloxone 4 MG/0.1ML, PRN as directed. Advised safekeeping of medications. Left lower extremity DVT. She is currently on Eliquis and she is stable. She follows up with hematology. according to patient she may have a procedure for a filter placed next week. Major depression. She is started on Cymbalta 30 mg 1 tablet daily. Side effects explained. This will help with anxiety/depression and also with pain. We will titrate up the medication as needed General health concerns discussed with patient. Scribe services used to formulate this note under HIPAA compliance and under [place] law mandated for scribe services. Patient aware of service. Verbal consent and written consent taken from the patient. Patient understands and verbalizes understanding of the scribes services and all questions answered regarding scribes services. Patient agrees to use of scribes services. 03/06/2024 Preoperative clearance (ICD-10 - Z01.818) Yanet is a 68-year-old female with a pmhx of T2DM, HLD, Asthma, Vitamin D deficiency is here for pre-op clearance For right [facility]/orthopedics with Dr. Ruiz coming up in May 01/2025. Plan as follows Cardiac assessment. Patient can easily do 4 METS. Blood pressure and exam is within normal limits. Pulmonary assessment. Lung exam is normal. No further Intervention NPO on the day of surgery. Take your medications after the surgery. Hold NSAIDs for 5 days and Eliquis for 48 hours before the procedure and resume on the same day. Low risk procedure in a low risk patient. No contraindications for the procedure at this point in time She has history of iron deficiency anemia, she is currently on and supplements. We have ordered CBC with iron studies. She has diabetes she is not currently on diabetic medications. Ordered A1c 03/29/2024 Chronic pain syndrome (ICD-10 - G89.4) Ron is 68 years old pleasant lady with insulin-dependent DM type II and follow-up with endocrinology, hyperlipidemia, left lower extremity DVT and she follows up with principal software engineer, chronic kidney disease and she follows up with cross cut saw operator, as the amount, degenerative disc disease/osteoarthri tis and she has an upcoming surgery for total right hip replacement at [facility]. She had preop physical done recently and he wanted EKG which was done today. EKG is normal sinus rhythm at 60 bpm with no acute ST or T wave changes with no bundle-branch blocks, normal intervals Chronic pain management. Chronic pain secondary to degenerative disc disease. Prognosis: Mild to moderate Medical necessity supported by H&P, imaging and testing [place] pain treatment protocol completed. Yes Chronic opioid/pain [...] opioid misuse based on ORT. Toxicology and CORRUGATOR MACHINE OPERATOR monitoring done and will follow protocol set forth by practice. As such controlled substance use requires judicious monitoring to access patient compliance with mutually agreed upon controlled substance use agreement which has been signed by the patient and initiation of controlled substance prescribing. Therefore following state, Federal, CMS guidelines for controlled substance testing policies. This patient has been assessed on the basis of psychometric risk tool, CORRUGATOR MACHINE OPERATOR monitoring, toxicology test results. Comorbid conditions may contribute to her compliance with chronic ongoing pain condition/functiona l impairment. Urine toxicology screen not done on [...] morphine sulfate is not covered Counseling done. 03/29/2024 Polyosteoarthriti s, unspecified (ICD-10 - M15.9) Ron is 68 years old pleasant lady with insulin-dependent DM type II and follow-up with endocrinology, hyperlipidemia, left lower extremity DVT and she follows up with principal software engineer, chronic kidney disease and she follows up with cross cut saw operator, as the amount, degenerative disc disease/osteoarthri tis and she has an upcoming surgery for total right hip replacement at [facility]. She had preop physical done recently and he wanted EKG which was done today. EKG is normal sinus rhythm at 60 bpm with no acute ST or T wave changes with no bundle-branch blocks, normal intervals Chronic pain management. Chronic pain secondary to degenerative disc disease. Prognosis: Mild to moderate Medical necessity supported by H&P, imaging and testing [place] pain treatment protocol completed. Yes Chronic opioid/pain [...] opioid misuse based on ORT. Toxicology and CORRUGATOR MACHINE OPERATOR monitoring done and will follow protocol set forth by practice. As such controlled substance use requires judicious monitoring to access patient compliance with mutually agreed upon controlled substance use agreement which has been signed by the patient and initiation of controlled substance prescribing. Therefore following state, Federal, CMS guidelines for controlled substance testing policies. This patient has been assessed on the basis of psychometric risk tool, CORRUGATOR MACHINE OPERATOR monitoring, toxicology test results. Comorbid conditions may contribute to her compliance with chronic ongoing pain condition/functiona l impairment. Urine toxicology screen not done on [...] sulfate is not covered Counseling done. 04/24/2024 Chronic pain syndrome (ICD-10 - G89.4) Ron is 68 years old pleasant lady with insulin-dependent DM type II and follow-up with endocrinology, hyperlipidemia, left lower extremity DVT and she follows up with principal software engineer, chronic kidney disease and she follows up with cross cut saw operator, as the amount, degenerative disc disease/osteoarthri tis and she has an upcoming surgery for total right hip replacement at [facility]. She is here today for chronic pain management Chronic pain management. Chronic pain secondary to degenerative disc disease. Prognosis: Mild to moderate Medical necessity supported by H&P, imaging and testing [place] pain treatment protocol completed. Yes Chronic opioid/pain [...] opioid misuse based on ORT. Toxicology and CORRUGATOR MACHINE OPERATOR monitoring done and will follow protocol set forth by practice. As such controlled substance use requires judicious monitoring to access patient compliance with mutually agreed upon controlled substance use agreement which has been signed by the patient and initiation of controlled substance prescribing. Therefore following state, Federal, CMS guidelines for controlled substance testing policies. This patient has been assessed on the basis of psychometric risk tool, CORRUGATOR MACHINE OPERATOR monitoring, toxicology test results. Comorbid conditions may contribute to her compliance with chronic ongoing pain condition/functiona l impairment. Urine toxicology screen not done on [...] extremity DVT and she follows up with principal software engineer, chronic kidney disease and she follows up with cross cut saw operator, as the amount, degenerative disc disease/osteoarthri tis and she has an upcoming surgery for total right hip replacement at [facility]. She is here today for chronic pain management Chronic pain management. Chronic pain secondary to degenerative disc disease. Prognosis: Mild to moderate Medical necessity supported by H&P, imaging and testing [place] pain treatment protocol completed. Yes Chronic opioid/pain [...] opioid misuse based on ORT. Toxicology and CORRUGATOR MACHINE OPERATOR monitoring done and will follow protocol set forth by practice. As such controlled substance use requires judicious monitoring to access patient compliance with mutually agreed upon controlled substance use agreement which has been signed by the patient and initiation of controlled substance prescribing. Therefore following state, Federal, CMS guidelines for controlled substance testing policies. This patient has been assessed on the basis of psychometric risk tool, CORRUGATOR MACHINE OPERATOR monitoring, toxicology test results. Comorbid conditions may contribute to her compliance with chronic ongoing pain condition/functiona l impairment. Urine toxicology screen not done on [...] morphine sulfate is not covered Counseling done. 06/05/2024 Chronic pain syndrome (ICD-10 - G89.4) Ron is 68 years old pleasant lady with insulin-dependent DM type II and follow-up with endocrinology, hyperlipidemia, left lower extremity DVT and she follows up with principal software engineer, chronic kidney disease and she follows up with cross cut saw operator, as the amount, degenerative disc disease/osteoarthri tis She is status post total right hip replacement at [facility], Is here for follow-up. Status post right hip replacement surgery - Surgery was recently done at [place]. She is able to walk now, she continues to use a walker to avoid any risk of falling. He has PT. She is currently on Eliquis however she has been prior on it since October due to DVT. She has a follow-up with [facility]. Chronic pain syndrome/polyarthri tis - Stable. She is currently on oxycodone and morphine. Hypertension - Her blood pressure it runs on the lower side. She is asymptomatic. Lungs are clear to auscultation bilateral and no signs of edema. We will continue observing for now Type 2 diabetes - Her previous A1c is 7.0. She does follow up with cassandra architect at [facility] - Continue the same regimen Screening blood work before next appointment General concerns have been discussed I have rendered the services for this patient under direct supervision of Dr. Alfaro, who did not see the patient but was available upon request 06/05/2024 Polyosteoarthriti s, unspecified (ICD-10 - M15.9) Ron is 68 years old pleasant lady with insulin-dependent DM type II and follow-up with endocrinology, hyperlipidemia, left lower extremity DVT and she follows up with principal software engineer, chronic kidney disease and she follows up with cross cut saw operator, as the amount, degenerative disc disease/osteoarthri tis She is status post total right hip replacement at [facility], Is here for follow-up. Status post right hip replacement surgery - Surgery was recently done at [place]. She is able to walk now, she continues to use a walker to avoid any risk of falling. He has PT. She is currently on Eliquis however she has been prior on it since October due to DVT. She has a follow-up with [facility]. Chronic pain syndrome/polyarthri tis - Stable. She is currently on oxycodone and morphine. Hypertension - Her blood pressure it runs on the lower side. She is asymptomatic. Lungs are clear to auscultation bilateral and no signs of edema. We will continue observing for now Type 2 diabetes - Her previous A1c is 7.0. She does follow up with cassandra architect at [facility] - Continue the same regimen Screening blood work before next appointment General concerns have been discussed I have rendered the services for this patient under direct supervision of Dr. Alfaro, who did not see the patient but was available upon request 03/01/2024 Other intervertebral disc degeneration, thoracolumbar region (ICD-10 - M51.35) Yanet is a 68-year-old female with a pmhx of T2DM on ozempic, HLD, Asthma, Vitamin D deficiency is here follow up. She complained of being depressed and she is tearful without reason. Plan is as follows: DDD. She has long-standing history of degenerative disc disease and she is seeing pain management and had intra-facet injections in the past with no significant relief. She is on pain management for a long time. Start Lidocaine Patch, as needed alomg with TylenolArthritis 650 MG, 2 tablets as needed. Continue Diclofenac topical gel 3% 2 times a day along with oxycodone 10 mg and we started Morphine ER 15 MG once a day. She is on controlled substance contract. She has Naloxone 4 MG/0.1ML, PRN as directed. Advised safekeeping of medications. Left lower extremity DVT. She is currently on Eliquis and she is stable. She follows up with hematology. according to patient she may have a procedure for a filter placed next week. Major depression. She is started on Cymbalta 30 mg 1 tablet daily. Side effects explained. This will help with anxiety/depression and also with pain. We will titrate up the medication as needed General health concerns discussed with patient. Scribe services used to formulate this note under HIPAA compliance and under [place] law mandated for scribe services. Patient aware of service. Verbal consent and written consent taken from the patient. Patient understands and verbalizes understanding of the scribes services and all questions answered regarding scribes services. Patient agrees to use of scribes services. 07/04/2023 Other obesity due to excess calories (ICD-10 - E66.09) Ms King is a 67 year old with is here today for medical weight management. We saw her in May. She lost 77 lbs in total and lost 3 lbs since last visit. Her goal is 130 lbs. Advised to be more aggressive with dietary restrictions and regimental exercise. Advised to measure portions. She had left ankle fusion and a hip replacement. Dietary recommendations. She sees skin washer at [facility] once a month. Food recall was done today and patient advised to be on low calorie, low carbohydrate diet. Restrict calories to less than 1500 kcal in 24 hours. Low glycemic index foods and encouraged. Meal replacements were recommended. Advised to use [id number] multivitamins and vitamin D. Advised to use calorie counter and adhere to portion control. Monthly goal is to lose 4-6 pounds Pharmacotherapy. Continue Ozempic. Exercise. she cannot do exercise because of her significant osteoarthritis of bilateral lower extremities. She is going to pain management/headache s at [place] for intra-articular injections Assess. Different risk factors discussed with the patient and addressed Advise. She was given clear And specific advise that she will comply with Low-calorie diet and try not to exceed more than 1300 kcal in 24 hours. Agree. Mutually agreed to work together to achieve appropriate goals Assist. Motivational interviewing done. Arrange. Follow-up appointment arranged. Counseling. 15 minutes spent Face to face with the patient more than 50% of time was spent counseling Scribe services used to formulate this note under HIPAA compliance and under [place] law mandated for scribe services. Patient aware of service. Verbal consent and written consent taken from the patient. Patient understands and verbalizes understanding of the scribes services and all questions answered regarding scribes services. Patient agrees to use of scribes services. 07/04/2023 Dietary counseling and surveillance (ICD-10 - Z71.3) Ms King is a 67 year old with is here today for medical weight management. We saw her in May. She lost 77 lbs in total and lost 3 lbs since last visit. Her goal is 130 lbs. Advised to be more aggressive with dietary restrictions and regimental exercise. Advised to measure portions. She had left ankle fusion and a hip replacement. Dietary recommendations. She sees skin washer at [facility] once a month. Food recall was done today and patient advised to be on low calorie, low carbohydrate diet. Restrict calories to less than 1500 kcal in 24 hours. Low glycemic index foods and encouraged. Meal replacements were recommended. Advised to use [id number] multivitamins and vitamin D. Advised to use calorie counter and adhere to portion control. Monthly goal is to lose 4-6 pounds Pharmacotherapy. Continue Ozempic. Exercise. she cannot do exercise because of her significant osteoarthritis of bilateral lower extremities. She is going to pain management/headache s at [place] for intra-articular injections Assess. Different risk factors discussed with the patient and addressed Advise. She was given clear And specific advise that she will comply with Low-calorie diet and try not to exceed more than 1300 kcal in 24 hours. Agree. Mutually agreed to work together to achieve appropriate goals Assist. Motivational interviewing done. Arrange. Follow-up appointment arranged. Counseling. 15 minutes spent Face to face with the patient more than 50% of time was spent counseling Scribe services used to formulate this note under HIPAA compliance and under [place] law mandated for scribe services. Patient aware of service. Verbal consent and written consent taken from the patient. Patient understands and verbalizes understanding of the scribes services and all questions answered regarding scribes services. Patient agrees to use of scribes services. 03/01/2024 Major depressive disorder, single episode, unspecified (ICD-10 - F32.9) Yanet is a 68-year-old female with a pmhx of T2DM on ozempic, HLD, Asthma, Vitamin D deficiency is here follow up. She complained of being depressed and she is tearful without reason. Plan is as follows: DDD. She has long-standing history of degenerative disc disease and she is seeing pain management and had intra-facet injections in the past with no significant relief. She is on pain management for a long time. Start Lidocaine Patch, as needed alomg with TylenolArthritis 650 MG, 2 tablets as needed. Continue Diclofenac topical gel 3% 2 times a day along with oxycodone 10 mg and we started Morphine ER 15 MG once a day. She is on controlled substance contract. She has Naloxone 4 MG/0.1ML, PRN as directed. Advised safekeeping of medications. Left lower extremity DVT. She is currently on Eliquis and she is stable. She follows up with hematology. according to patient she may have a procedure for a filter placed next week. Major depression. She is started on Cymbalta 30 mg 1 tablet daily. Side effects explained. This will help with anxiety/depression and also with pain. We will titrate up the medication as needed General health concerns discussed with patient. Scribe services used to formulate this note under HIPAA compliance and under [place] law mandated for scribe services. Patient aware of service. Verbal consent and written consent taken from the patient. Patient understands and verbalizes understanding of the scribes services and all questions answered regarding scribes services. Patient agrees to use of scribes services. 12/07/2023 Enterocolitis due to Clostridium difficile, not specified as recurrent (ICD-10 - A04.72) Yanet is a 67-year-old female with a pmhx of T2DM on ozempic, HLD, Asthma, Vitamin D deficiency is here for hospital discharge follow up. She was recently hospitalized at [facility] from 11/02 to 11/08 for pancreatitis, ALE, COVID-19 with recent UTI. Plan is as follows: Low blood pressure. Most likely due to infection. Continue antibiotics. Advised appropriate hydration. Advised to wash hands frequently. DDD. Start Diclofenac as directed, 2 times a day. Continue oxycodone 10 mg. Left lower extremity DVT. She is currently on Eliquis and she is stable. Discharge notes discussed with patient and questions answered. Scribe services used to formulate this note under HIPAA compliance and under [place] law mandated for scribe services. Patient aware of service. Verbal consent and written consent taken from the patient. Patient understands and verbalizes understanding of the scribes services and all questions answered regarding scribes services. Patient agrees to use of scribes services. 11/16/2023 Acute pancreatitis (ICD-10 - K85.90) Yanet is a 67-year-old female with a pmhx of T2DM on Ozempic, HLD, Asthma, vitamin D deficiency, s/p hip arthroplasty is here for [facility] hospital discharge for hypotension with abdominal pain, n/v, diarrhea, AMS. COVID positive. CT of abdomen pelvis showed acute pancreatitis. Labs were consistent with ALE and metabolic acidosis. Plan as follows: Abdominal pain Acute pancreatitis Diarrhea: - Elevated lipase. CT of abdomen/pelvis supports the evidence of pancreatitis. D/c Ozempic - Negative stool culture while at the hospital - She is currently on Loperamide prn. - Patient stated that she noticed an improvement in her sxs ALE Metabolic acidosis Hypernatremia Hypokalemia in the setting of diarrhea Hypophosphatemia - Diarrhea contributed to nongap acidosis. S/p D5w and significant electrolyte repletion. Improved electrolytes and acidosis on discharge. - She just today Sodium Bicarbonate 650mg 3 times a day - We will recheck comp COVID: - Feels better. Finished Dexamethasone. Anemia: - Hgb of 7.8. HCT 23.2. While in the hospital. D/C ASA. Possibly secondary to Hemodilution. review of hgb from last year was 12.9. We will repeat CBC with iron studies and observe. HTN: - Patient was hypotensive while in the ER. Lisinopril has been on hold. BP is WNL in the office. We will keep Lisinopril on hold and recheck in one week. Edema: - BL 2+ edema is noted. Started on discharge day. Otheriwse VS are normal. Secondary to IV fluids that were given at the hospital. Advised on hydration, leg elevation and walking. I will hold off on Furosemide for now as she has been experiencing UTI sxs. Dysuria: - Started 3 days ago. Pelvic pressure, burning sensation with urination, yellow discharge, fishy urine smell . No hematuria. Sent patient to do UA/Culture to r/o bacterial UTI vs BV. We will treat based on that. T2DM: - Well controlled. A1c of 5.1 Memory disturbance: - She has been seeing a neurology for memory disturbance but stopped seeing him due to insurance problem. We referred to a new neurology I have rendered the services for this patient under direct supervision of Dr. Alfaro, who did not see the patient but was available upon request 11/16/2023 Hospital discharge follow-up (ICD-10 - Z09) Yanet is a 67-year-old female with a pmhx of T2DM on Ozempic, HLD, Asthma, vitamin D deficiency, s/p hip arthroplasty is here for [facility] hospital discharge for hypotension with abdominal pain, n/v, diarrhea, AMS. COVID positive. CT of abdomen pelvis showed acute pancreatitis. Labs were consistent with ALE and metabolic acidosis. Plan as follows: Abdominal pain Acute pancreatitis Diarrhea: - Elevated lipase. CT of abdomen/pelvis supports the evidence of pancreatitis. D/c Ozempic - Negative stool culture while at the hospital - She is currently on Loperamide prn. - Patient stated that she noticed an improvement in her sxs ALE Metabolic acidosis Hypernatremia Hypokalemia in the setting of diarrhea Hypophosphatemia - Diarrhea contributed to nongap acidosis. S/p D5w and significant electrolyte repletion. Improved electrolytes and acidosis on discharge. - She just today Sodium Bicarbonate 650mg 3 times a day - We will recheck comp COVID: - Feels better. Finished Dexamethasone. Anemia: - Hgb of 7.8. HCT 23.2. While in the hospital. D/C ASA. Possibly secondary to Hemodilution. review of hgb from last year was 12.9. We will repeat CBC with iron studies and observe. HTN: - Patient was hypotensive while in the ER. Lisinopril has been on hold. BP is WNL in the office. We will keep Lisinopril on hold and recheck in one week. Edema: - BL 2+ edema is noted. Started on discharge day. Otheriwse VS are normal. Secondary to IV fluids that were given at the hospital. Advised on hydration, leg elevation and walking. I will hold off on Furosemide for now as she has been experiencing UTI sxs. Dysuria: - Started 3 days ago. Pelvic pressure, burning sensation with urination, yellow discharge, fishy urine smell . No hematuria. Sent patient to do UA/Culture to r/o bacterial UTI vs BV. We will treat based on that. T2DM: - Well controlled. A1c of 5.1 Memory disturbance: - She has been seeing a neurology for memory disturbance but stopped seeing him due to insurance problem. We referred to a new neurology I have rendered the services for this patient under direct supervision of Dr. Alfaro, who did not see the patient but was available upon request 11/16/2023 Hypokalemia (ICD-10 - E87.6) Yanet is a 67-year-old female with a pmhx of T2DM on Ozempic, HLD, Asthma, vitamin D deficiency, s/p hip arthroplasty is here for [facility] hospital discharge for hypotension with abdominal pain, n/v, diarrhea, AMS. COVID positive. CT of abdomen pelvis showed acute pancreatitis. Labs were consistent with ALE and metabolic acidosis. Plan as follows: Abdominal pain Acute pancreatitis Diarrhea: - Elevated lipase. CT of abdomen/pelvis supports the evidence of pancreatitis. D/c Ozempic - Negative stool culture while at the hospital - She is currently on Loperamide prn. - Patient stated that she noticed an improvement in her sxs ALE Metabolic acidosis Hypernatremia Hypokalemia in the setting of diarrhea Hypophosphatemia - Diarrhea contributed to nongap acidosis. S/p D5w and significant electrolyte repletion. Improved electrolytes and acidosis on discharge. - She just today Sodium Bicarbonate 650mg 3 times a day - We will recheck comp COVID: - Feels better. Finished Dexamethasone. Anemia: - Hgb of 7.8. HCT 23.2. While in the hospital. D/C ASA. Possibly secondary to Hemodilution. review of hgb from last year was 12.9. We will repeat CBC with iron studies and observe. HTN: - Patient was hypotensive while in the ER. Lisinopril has been on hold. BP is WNL in the office. We will keep Lisinopril on hold and recheck in one week. Edema: - BL 2+ edema is noted. Started on discharge day. Otheriwse VS are normal. Secondary to IV fluids that were given at the hospital. Advised on hydration, leg elevation and walking. I will hold off on Furosemide for now as she has been experiencing UTI sxs. Dysuria: - Started 3 days ago. Pelvic pressure, burning sensation with urination, yellow discharge, fishy urine smell . No hematuria. Sent patient to do UA/Culture to r/o bacterial UTI vs BV. We will treat based on that. T2DM: - Well controlled. A1c of 5.1 Memory disturbance: - She has been seeing a neurology for memory disturbance but stopped seeing him due to insurance problem. We referred to a new neurology I have rendered the services for this patient under direct supervision of Dr. Alfaro, who did not see the patient but was available upon request 01/04/2024 Acute embolism and thrombosis of unspecified deep veins of left lower extremity (ICD-10 - I82.402) Yanet is a 68-year-old female with a pmhx of T2DM on ozempic, HLD, Asthma, Vitamin D deficiency is here follow up. Plan is as follows: DDD. She has long-standing history of degenerative disc disease and she is seeing pain management and had intra-facet injections in the past with no significant relief. She is on pain management for a long time. Continue Diclofenac as directed, 2 times a day along with oxycodone 10 mg and we started Morphine ER 10 MG once a day. She is on controlled substance contract. Start Naloxone 4 MG/0.1ML, PRN as directed. Advised safekeeping of medications. Left lower extremity DVT. She is currently on Eliquis and she is stable. She follows up with hematology. General health concerns discussed with patient. Scribe services used to formulate this note under HIPAA compliance and under [place] law mandated for scribe services. Patient aware of service. Verbal consent and written consent taken from the patient. Patient understands and verbalizes understanding of the scribes services and all questions answered regarding scribes services. Patient agrees to use of scribes services. 03/01/2024 Acute embolism and thrombosis of unspecified deep veins of left lower extremity (ICD-10 - I82.402) Yanet is a 68-year-old female with a pmhx of T2DM on ozempic, HLD, Asthma, Vitamin D deficiency is here follow up. She complained of being depressed and she is tearful without reason. Plan is as follows: DDD. She has long-standing history of degenerative disc disease and she is seeing pain management and had intra-facet injections in the past with no significant relief. She is on pain management for a long time. Start Lidocaine Patch, as needed alomg with TylenolArthritis 650 MG, 2 tablets as needed. Continue Diclofenac topical gel 3% 2 times a day along with oxycodone 10 mg and we started Morphine ER 15 MG once a day. She is on controlled substance contract. She has Naloxone 4 MG/0.1ML, PRN as directed. Advised safekeeping of medications. Left lower extremity DVT. She is currently on Eliquis and she is stable. She follows up with hematology. according to patient she may have a procedure for a filter placed next week. Major depression. She is started on Cymbalta 30 mg 1 tablet daily. Side effects explained. This will help with anxiety/depression and also with pain. We will titrate up the medication as needed General health concerns discussed with patient. Scribe services used to formulate this note under HIPAA compliance and under [place] law mandated for scribe services. Patient aware of service. Verbal consent and written consent taken from the patient. Patient understands and verbalizes understanding of the scribes services and all questions answered regarding scribes services. Patient agrees to use of scribes services. 06/05/2024 Other intervertebral disc degeneration, thoracolumbar region (ICD-10 - M51.35) Ron is 68 years old pleasant lady with insulin-dependent DM type II and follow-up with endocrinology, hyperlipidemia, left lower extremity DVT and she follows up with principal software engineer, chronic kidney disease and she follows up with cross cut saw operator, as the amount, degenerative disc disease/osteoarthri tis She is status post total right hip replacement at [facility], Is here for follow-up. Status post right hip replacement surgery - Surgery was recently done at [place]. She is able to walk now, she continues to use a walker to avoid any risk of falling. He has PT. She is currently on Eliquis however she has been prior on it since October due to DVT. She has a follow-up with [facility]. Chronic pain syndrome/polyarthri tis - Stable. She is currently on oxycodone and morphine. Hypertension - Her blood pressure it runs on the lower side. She is asymptomatic. Lungs are clear to auscultation bilateral and no signs of edema. We will continue observing for now Type 2 diabetes - Her previous A1c is 7.0. She does follow up with cassandra architect at [facility] - Continue the same regimen Screening blood work before next appointment General concerns have been discussed I have rendered the services for this patient under direct supervision of Dr. Alfaro, who did not see the patient but was available upon request 04/24/2024 Other intervertebral disc degeneration, thoracolumbar region (ICD-10 - M51.35) Ron is 68 years old pleasant lady with insulin-dependent DM type II and follow-up with endocrinology, hyperlipidemia, left lower extremity DVT and she follows up with principal software engineer, chronic kidney disease and she follows up with cross cut saw operator, as the amount, degenerative disc disease/osteoarthri tis and she has an upcoming surgery for total right hip replacement at [facility]. She is here today for chronic pain management Chronic pain management. Chronic pain secondary to degenerative disc disease. Prognosis: Mild to moderate Medical necessity supported by H&P, imaging and testing [place] pain treatment protocol completed. Yes Chronic opioid/pain [...] opioid misuse based on ORT. Toxicology and CORRUGATOR MACHINE OPERATOR monitoring done and will follow protocol set forth by practice. As such controlled substance use requires judicious monitoring to access patient compliance with mutually agreed upon controlled substance use agreement which has been signed by the patient and initiation of controlled substance prescribing. Therefore following state, Federal, [facility] guidelines for controlled substance testing policies. This patient has been assessed on the basis of psychometric risk tool, CORRUGATOR MACHINE OPERATOR monitoring, toxicology test results. Comorbid conditions may contribute to her compliance with chronic ongoing pain condition/functiona l impairment. Urine toxicology screen not done on [...] morphine sulfate is not covered Counseling done. 03/29/2024 Other intervertebral disc degeneration, thoracolumbar region (ICD-10 - M51.35) Ron is 68 years old pleasant lady with insulin-dependent DM type II and follow-up with endocrinology, hyperlipidemia, left lower extremity DVT and she follows up with principal software engineer, chronic kidney disease and she follows up with cross cut saw operator, as the amount, degenerative disc disease/osteoarthri tis and she has an upcoming surgery for total right hip replacement at [facility]. She had preop physical done recently and he wanted EKG which was done today. EKG is normal sinus rhythm at 60 bpm with no acute ST or T wave changes with no bundle-branch blocks, normal intervals Chronic pain management. Chronic pain secondary to degenerative disc disease. Prognosis: Mild to moderate Medical necessity supported by H&P, imaging and testing [place] pain treatment protocol completed. Yes Chronic opioid/pain [...] opioid misuse based on ORT. Toxicology and CORRUGATOR MACHINE OPERATOR monitoring done and will follow protocol set forth by practice. As such controlled substance use requires judicious monitoring to access patient compliance with mutually agreed upon controlled substance use agreement which has been signed by the patient and initiation of controlled substance prescribing. Therefore following state, Federal, [facility] guidelines for controlled substance testing policies. This patient has been assessed on the basis of psychometric risk tool, CORRUGATOR MACHINE OPERATOR monitoring, toxicology test results. Comorbid conditions may contribute to her compliance with chronic ongoing pain condition/functiona l impairment. Urine toxicology screen not done on [...] morphine sulfate is not covered Counseling done. 02/01/2024 Acute embolism and thrombosis of unspecified deep veins of left lower extremity (ICD-10 - I82.402) Yanet is a 68-year-old female with a pmhx of T2DM on ozempic, HLD, Asthma, Vitamin D deficiency is here follow up. She complained of being depressed and she is tearful without reason. Plan is as follows: DDD. She has long-standing history of degenerative disc disease and she is seeing pain management and had intra-facet injections in the past with no significant relief. She is on pain management for a long time. Start Lidocaine Patch, as needed alomg with TylenolArthritis 650 MG, 2 tablets as needed. Continue Diclofenac topical gel 3% 2 times a day along with oxycodone 10 mg and we started Morphine ER 15 MG once a day. She is on controlled substance contract. Continue Naloxone 4 MG/0.1ML, PRN as directed. Advised safekeeping of medications. Left lower extremity DVT. She is currently on Eliquis and she is stable. She follows up with hematology. according to patient she may have a procedure for a filter placed next week. Major depression. She is started on Cymbalta 30 mg 1 tablet daily. Side effects explained. This will help with anxiety/depression and also with pain. We will titrate up the medication as needed General health concerns discussed with patient. Scribe services used to formulate this note under HIPAA compliance and under [place] law mandated for scribe services. Patient aware of service. Verbal consent and written consent taken from the patient. Patient understands and verbalizes understanding of the scribes services and all questions answered regarding scribes services. Patient agrees to use of scribes services. 12/07/2023 Other intervertebral disc degeneration, thoracolumbar region (ICD-10 - M51.35) Yanet is a 67-year-old female with a pmhx of T2DM on ozempic, HLD, Asthma, Vitamin D deficiency is here for hospital discharge follow up. She was recently hospitalized at [facility] from 11/02 to 11/08 for pancreatitis, ALE, COVID-19 with recent UTI. Plan is as follows: Low blood pressure. Most likely due to infection. Continue antibiotics. Advised appropriate hydration. Advised to wash hands frequently. DDD. Start Diclofenac as directed, 2 times a day. Continue oxycodone 10 mg. Left lower extremity DVT. She is currently on Eliquis and she is stable. Discharge notes discussed with patient and questions answered. Scribe services used to formulate this note under HIPAA compliance and under [place] law mandated for scribe services. Patient aware of service. Verbal consent and written consent taken from the patient. Patient understands and verbalizes understanding of the scribes services and all questions answered regarding scribes services. Patient agrees to use of scribes services. 11/23/2023 Type 2 diabetes mellitus with unspecified complications (ICD-10 - E11.8) Yanet is a 67-year-old female with a pmhx of T2DM on Ozempic, HLD, Asthma, vitamin D deficiency, s/p hip arthroplasty is here for BP check. Plan as follows: HTN: - BP is running low in the office. oxygen saturation is normal and HR are normal. She has 3+ BL leg edema. Weight gain of 7lbs since the last visit. Patient is somenlent. States that it is due to taking medications in the morning that make her sleepy. We have called the EMS to transfer the patient to the Hospital, as she was previously admitted to ICU for hypotension. I have rendered the services for this patient under direct supervision of Dr. Alfaro, who did not see the patient but was available upon request 11/20/2023 Iron deficiency anemia, unspecified (ICD-10 - D50.9) 10/02/2023 Vitamin D deficiency, unspecified (ICD-10 - E55.9) Ms King is a 67 year old with is here today for medical weight management. We saw her in September. She lost 88 lbs in total and no significant weight loss since last visit. Advised to be more aggressive with dietary restrictions and regimental exercise. Advised to measure portions. She had left ankle fusion and a hip replacement. Plan is as follows: Vitamin D deficiency. She takes vitamin D supplements. Check levels. Hyperlipidemia. Continue Atorvastatin 20 MG. Check lipid panel. Type II diabetes mellitus. She is on right medications. She has seen an phonograph cartridge assembler for the past year. Foot care discussed. check A1c. Nausea/vomiting. Advised not to take too much ibuprofen. Start Omeprazole 20 MG. Referred to GI. Dietary recommendations. She sees skin washer at [facility] once a month. Food recall was done today and patient advised to be on low calorie, low carbohydrate diet. Restrict calories to less than 1500 kcal in 24 hours. Low glycemic index foods and encouraged. Meal replacements were recommended. Advised to use [id number] multivitamins and vitamin D. Advised to use calorie counter and adhere to portion control. Monthly goal is to lose 4-6 pounds Pharmacotherapy. Continue Ozempic. Exercise. she cannot do exercise because of her significant osteoarthritis of bilateral lower extremities. She is going to pain management/headache s at [place] for intra-articular injections Assess. Different risk factors discussed with the patient and addressed Advise. She was given clear And specific advise that she will comply with Low-calorie diet and try not to exceed more than 1300 kcal in 24 hours. Agree. Mutually agreed to work together to achieve appropriate goals Assist. Motivational interviewing done. Arrange. Follow-up appointment arranged. Counseling. 15 minutes spent Face to face with the patient more than 50% of time was spent counseling Screening blood work before next appointment. Scribe services used to formulate this note under HIPAA compliance and under [place] law mandated for scribe services. Patient aware of service. Verbal consent and written consent taken from the patient. Patient understands and verbalizes understanding of the scribes services and all questions answered regarding scribes services. Patient agrees to use of scribes services. 10/02/2023 Mixed hyperlipidemia (ICD-10 - E78.2) Ms King is a 67 year old with is here today for medical weight management. We saw her in September. She lost 88 lbs in total and no significant weight loss since last visit. Advised to be more aggressive with dietary restrictions and regimental exercise. Advised to measure portions. She had left ankle fusion and a hip replacement. Plan is as follows: Vitamin D deficiency. She takes vitamin D supplements. Check levels. Hyperlipidemia. Continue Atorvastatin 20 MG. Check lipid panel. Type II diabetes mellitus. She is on right medications. She has seen an phonograph cartridge assembler for the past year. Foot care discussed. check A1c. Nausea/vomiting. Advised not to take too much ibuprofen. Start Omeprazole 20 MG. Referred to GI. Dietary recommendations. She sees skin washer at [facility] once a month. Food recall was done today and patient advised to be on low calorie, low carbohydrate diet. Restrict calories to less than 1500 kcal in 24 hours. Low glycemic index foods and encouraged. Meal replacements were recommended. Advised to use [id number] multivitamins and vitamin D. Advised to use calorie counter and adhere to portion control. Monthly goal is to lose 4-6 pounds Pharmacotherapy. Continue Ozempic. Exercise. she cannot do exercise because of her significant osteoarthritis of bilateral lower extremities. She is going to pain management/headache s at [place] for intra-articular injections Assess. Different risk factors discussed with the patient and addressed Advise. She was given clear And specific advise that she will comply with Low-calorie diet and try not to exceed more than 1300 kcal in 24 hours. Agree. Mutually agreed to work together to achieve appropriate goals Assist. Motivational interviewing done. Arrange. Follow-up appointment arranged. Counseling. 15 minutes spent Face to face with the patient more than 50% of time was spent counseling Screening blood work before next appointment. Scribe services used to formulate this note under HIPAA compliance and under [place] law mandated for scribe services. Patient aware of service. Verbal consent and written consent taken from the patient. Patient understands and verbalizes understanding of the scribes services and all questions answered regarding scribes services. Patient agrees to use of scribes services. 06/05/2024 Presence of right artificial shoulder joint (ICD-10 - Z96.611) Ron is 68 years old pleasant lady with insulin-dependent DM type II and follow-up with endocrinology, hyperlipidemia, left lower extremity DVT and she follows up with principal software engineer, chronic kidney disease and she follows up with cross cut saw operator, as the amount, degenerative disc disease/osteoarthri tis She is status post total right hip replacement at [facility], Is here for follow-up. Status post right hip replacement surgery - Surgery was recently done at [place]. She is able to walk now, she continues to use a walker to avoid any risk of falling. He has PT. She is currently on Eliquis however she has been prior on it since October due to DVT. She has a follow-up with [facility]. Chronic pain syndrome/polyarthri tis - Stable. She is currently on oxycodone and morphine. Hypertension - Her blood pressure it runs on the lower side. She is asymptomatic. Lungs are clear to auscultation bilateral and no signs of edema. We will continue observing for now Type 2 diabetes - Her previous A1c is 7.0. She does follow up with cassandra architect at [facility] - Continue the same regimen Screening blood work before next appointment General concerns have been discussed I have rendered the services for this patient under direct supervision of Dr. Alfaro, who did not see the patient but was available upon request 11/16/2023 Mild persistent asthma, uncomplicated (ICD-10 - J45.30) Yanet is a 67-year-old female with a pmhx of T2DM on Ozempic, HLD, Asthma, vitamin D deficiency, s/p hip arthroplasty is here for [facility] hospital discharge for hypotension with abdominal pain, n/v, diarrhea, AMS. COVID positive. CT of abdomen pelvis showed acute pancreatitis. Labs were consistent with ALE and metabolic acidosis. Plan as follows: Abdominal pain Acute pancreatitis Diarrhea: - Elevated lipase. CT of abdomen/pelvis supports the evidence of pancreatitis. D/c Ozempic - Negative stool culture while at the hospital - She is currently on Loperamide prn. - Patient stated that she noticed an improvement in her sxs ALE Metabolic acidosis Hypernatremia Hypokalemia in the setting of diarrhea Hypophosphatemia - Diarrhea contributed to nongap acidosis. S/p D5w and significant electrolyte repletion. Improved electrolytes and acidosis on discharge. - She just today Sodium Bicarbonate 650mg 3 times a day - We will recheck comp COVID: - Feels better. Finished Dexamethasone. Anemia: - Hgb of 7.8. HCT 23.2. While in the hospital. D/C ASA. Possibly secondary to Hemodilution. review of hgb from last year was 12.9. We will repeat CBC with iron studies and observe. HTN: - Patient was hypotensive while in the ER. Lisinopril has been on hold. BP is WNL in the office. We will keep Lisinopril on hold and recheck in one week. Edema: - BL 2+ edema is noted. Started on discharge day. Otheriwse VS are normal. Secondary to IV fluids that were given at the hospital. Advised on hydration, leg elevation and walking. I will hold off on Furosemide for now as she has been experiencing UTI sxs. Dysuria: - Started 3 days ago. Pelvic pressure, burning sensation with urination, yellow discharge, fishy urine smell . No hematuria. Sent patient to do UA/Culture to r/o bacterial UTI vs BV. We will treat based on that. T2DM: - Well controlled. A1c of 5.1 Memory disturbance: - She has been seeing a neurology for memory disturbance but stopped seeing him due to insurance problem. We referred to a new neurology I have rendered the services for this patient under direct supervision of Dr. Alfaro, who did not see the patient but was available upon request 11/16/2023 Acute kidney failure, unspecified (ICD-10 - N17.9) Yanet is a 67-year-old female with a pmhx of T2DM on Ozempic, HLD, Asthma, vitamin D deficiency, s/p hip arthroplasty is here for [facility] hospital discharge for hypotension with abdominal pain, n/v, diarrhea, AMS. COVID positive. CT of abdomen pelvis showed acute pancreatitis. Labs were consistent with ALE and metabolic acidosis. Plan as follows: Abdominal pain Acute pancreatitis Diarrhea: - Elevated lipase. CT of abdomen/pelvis supports the evidence of pancreatitis. D/c Ozempic - Negative stool culture while at the hospital - She is currently on Loperamide prn. - Patient stated that she noticed an improvement in her sxs ALE Metabolic acidosis Hypernatremia Hypokalemia in the setting of diarrhea Hypophosphatemia - Diarrhea contributed to nongap acidosis. S/p D5w and significant electrolyte repletion. Improved electrolytes and acidosis on discharge. - She just today Sodium Bicarbonate 650mg 3 times a day - We will recheck comp COVID: - Feels better. Finished Dexamethasone. Anemia: - Hgb of 7.8. HCT 23.2. While in the hospital. D/C ASA. Possibly secondary to Hemodilution. review of hgb from last year was 12.9. We will repeat CBC with iron studies and observe. HTN: - Patient was hypotensive while in the ER. Lisinopril has been on hold. BP is WNL in the office. We will keep Lisinopril on hold and recheck in one week. Edema: - BL 2+ edema is noted. Started on discharge day. Otheriwse VS are normal. Secondary to IV fluids that were given at the hospital. Advised on hydration, leg elevation and walking. I will hold off on Furosemide for now as she has been experiencing UTI sxs. Dysuria: - Started 3 days ago. Pelvic pressure, burning sensation with urination, yellow discharge, fishy urine smell . No hematuria. Sent patient to do UA/Culture to r/o bacterial UTI vs BV. We will treat based on that. T2DM: - Well controlled. A1c of 5.1 Memory disturbance: - She has been seeing a neurology for memory disturbance but stopped seeing him due to insurance problem. We referred to a new neurology I have rendered the services for this patient under direct supervision of Dr. Alfaro, who did not see the patient but was available upon request 06/05/2024 Mixed hyperlipidemia (ICD-10 - E78.2) Ron is 68 years old pleasant lady with insulin-dependent DM type II and follow-up with endocrinology, hyperlipidemia, left lower extremity DVT and she follows up with principal software engineer, chronic kidney disease and she follows up with cross cut saw operator, as the amount, degenerative disc disease/osteoarthri tis She is status post total right hip replacement at [facility], Is here for follow-up. Status post right hip replacement surgery - Surgery was recently done at [place]. She is able to walk now, she continues to use a walker to avoid any risk of falling. He has PT. She is currently on Eliquis however she has been prior on it since October due to DVT. She has a follow-up with [facility]. Chronic pain syndrome/polyarthri tis - Stable. She is currently on oxycodone and morphine. Hypertension - Her blood pressure it runs on the lower side. She is asymptomatic. Lungs are clear to auscultation bilateral and no signs of edema. We will continue observing for now Type 2 diabetes - Her previous A1c is 7.0. She does follow up with cassandra architect at [facility] Hyperlipidemia - Continue the same regimen Screening blood work before next appointment General concerns have been discussed I have rendered the services for this patient under direct supervision of Dr. Alfaro, who did not see the patient but was available upon request 10/02/2023 Type 2 diabetes mellitus with unspecified complications (ICD-10 - E11.8) Ms King is a 67 year old with is here today for medical weight management. We saw her in September. She lost 88 lbs in total and no significant weight loss since last visit. Advised to be more aggressive with dietary restrictions and regimental exercise. Advised to measure portions. She had left ankle fusion and a hip replacement. Plan is as follows: Vitamin D deficiency. She takes vitamin D supplements. Check levels. Hyperlipidemia. Continue Atorvastatin 20 MG. Check lipid panel. Type II diabetes mellitus. She is on right medications. She has seen an phonograph cartridge assembler for the past year. Foot care discussed. check A1c. Nausea/vomiting. Advised not to take too much ibuprofen. Start Omeprazole 20 MG. Referred to GI. Dietary recommendations. She sees skin washer at [facility] once a month. Food recall was done today and patient advised to be on low calorie, low carbohydrate diet. Restrict calories to less than 1500 kcal in 24 hours. Low glycemic index foods and encouraged. Meal replacements were recommended. Advised to use [id number] multivitamins and vitamin D. Advised to use calorie counter and adhere to portion control. Monthly goal is to lose 4-6 pounds Pharmacotherapy. Continue Ozempic. Exercise. she cannot do exercise because of her significant osteoarthritis of bilateral lower extremities. She is going to pain management/headache s at [facility] for intra-articular injections Assess. Different risk factors discussed with the patient and addressed Advise. She was given clear And specific advise that she will comply with Low-calorie diet and try not to exceed more than 1300 kcal in 24 hours. Agree. Mutually agreed to work together to achieve appropriate goals Assist. Motivational interviewing done. Arrange. Follow-up appointment arranged. Counseling. 15 minutes spent Face to face with the patient more than 50% of time was spent counseling Screening blood work before next appointment. Scribe services used to formulate this note under HIPAA compliance and under [place] law mandated for scribe services. Patient aware of service. Verbal consent and written consent taken from the patient. Patient understands and verbalizes understanding of the scribes services and all questions answered regarding scribes services. Patient agrees to use of scribes services. 06/05/2024 Type 2 diabetes mellitus with unspecified complications (ICD-10 - E11.8) Ron is 68 years old pleasant lady with insulin-dependent DM type II and follow-up with endocrinology, hyperlipidemia, left lower extremity DVT and she follows up with principal software engineer, chronic kidney disease and she follows up with cross cut saw operator, as the amount, degenerative disc disease/osteoarthri tis She is status post total right hip replacement at [facility], Is here for follow-up. Status post right hip replacement surgery - Surgery was recently done at [place]. She is able to walk now, she continues to use a walker to avoid any risk of falling. He has PT. She is currently on Eliquis however she has been prior on it since October due to DVT. She has a follow-up with [facility]. Chronic pain syndrome/polyarthri tis - Stable. She is currently on oxycodone and morphine. Hypertension - Her blood pressure it runs on the lower side. She is asymptomatic. Lungs are clear to auscultation bilateral and no signs of edema. We will continue observing for now Type 2 diabetes - Her previous A1c is 7.0. She does follow up with cassandra architect at [facility] - Continue the same regimen Screening blood work before next appointment General concerns have been discussed I have rendered the services for this patient under direct supervision of Dr. Alfaro, who did not see the patient but was available upon request 11/16/2023 COVID (ICD-10 - U07.1) Yanet is a 67-year-old female with a pmhx of T2DM on Ozempic, HLD, Asthma, vitamin D deficiency, s/p hip arthroplasty is here for [facility] hospital discharge for hypotension with abdominal pain, n/v, diarrhea, AMS. COVID positive. CT of abdomen pelvis showed acute pancreatitis. Labs were consistent with ALE and metabolic acidosis. Plan as follows: Abdominal pain Acute pancreatitis Diarrhea: - Elevated lipase. CT of abdomen/pelvis supports the evidence of pancreatitis. D/c Ozempic - Negative stool culture while at the hospital - She is currently on Loperamide prn. - Patient stated that she noticed an improvement in her sxs ALE Metabolic acidosis Hypernatremia Hypokalemia in the setting of diarrhea Hypophosphatemia - Diarrhea contributed to nongap acidosis. S/p D5w and significant electrolyte repletion. Improved electrolytes and acidosis on discharge. - She just today Sodium Bicarbonate 650mg 3 times a day - We will recheck comp COVID: - Feels better. Finished Dexamethasone. Anemia: - Hgb of 7.8. HCT 23.2. While in the hospital. D/C ASA. Possibly secondary to Hemodilution. review of hgb from last year was 12.9. We will repeat CBC with iron studies and observe. HTN: - Patient was hypotensive while in the ER. Lisinopril has been on hold. BP is WNL in the office. We will keep Lisinopril on hold and recheck in one week. Edema: - BL 2+ edema is noted. Started on discharge day. Otheriwse VS are normal. Secondary to IV fluids that were given at the hospital. Advised on hydration, leg elevation and walking. I will hold off on Furosemide for now as she has been experiencing UTI sxs. Dysuria: - Started 3 days ago. Pelvic pressure, burning sensation with urination, yellow discharge, fishy urine smell . No hematuria. Sent patient to do UA/Culture to r/o bacterial UTI vs BV. We will treat based on that. T2DM: - Well controlled. A1c of 5.1 Memory disturbance: - She has been seeing a neurology for memory disturbance but stopped seeing him due to insurance problem. We referred to a new neurology I have rendered the services for this patient under direct supervision of Dr. Alfaro, who did not see the patient but was available upon request 11/16/2023 Type 2 diabetes mellitus with unspecified complications (ICD-10 - E11.8) Yanet is a 67-year-old female with a pmhx of T2DM on Ozempic, HLD, Asthma, vitamin D deficiency, s/p hip arthroplasty is here for [facility] hospital discharge for hypotension with abdominal pain, n/v, diarrhea, AMS. COVID positive. CT of abdomen pelvis showed acute pancreatitis. Labs were consistent with ALE and metabolic acidosis. Plan as follows: Abdominal pain Acute pancreatitis Diarrhea: - Elevated lipase. CT of abdomen/pelvis supports the evidence of pancreatitis. D/c Ozempic - Negative stool culture while at the hospital - She is currently on Loperamide prn. - Patient stated that she noticed an improvement in her sxs ALE Metabolic acidosis Hypernatremia Hypokalemia in the setting of diarrhea Hypophosphatemia - Diarrhea contributed to nongap acidosis. S/p D5w and significant electrolyte repletion. Improved electrolytes and acidosis on discharge. - She just today Sodium Bicarbonate 650mg 3 times a day - We will recheck comp COVID: - Feels better. Finished Dexamethasone. Anemia: - Hgb of 7.8. HCT 23.2. While in the hospital. D/C ASA. Possibly secondary to Hemodilution. review of hgb from last year was 12.9. We will repeat CBC with iron studies and observe. HTN: - Patient was hypotensive while in the ER. Lisinopril has been on hold. BP is WNL in the office. We will keep Lisinopril on hold and recheck in one week. Edema: - BL 2+ edema is noted. Started on discharge day. Otheriwse VS are normal. Secondary to IV fluids that were given at the hospital. Advised on hydration, leg elevation and walking. I will hold off on Furosemide for now as she has been experiencing UTI sxs. Dysuria: - Started 3 days ago. Pelvic pressure, burning sensation with urination, yellow discharge, fishy urine smell . No hematuria. Sent patient to do UA/Culture to r/o bacterial UTI vs BV. We will treat based on that. T2DM: - Well controlled. A1c of 5.1 Memory disturbance: - She has been seeing a neurology for memory disturbance but stopped seeing him due to insurance problem. We referred to a new neurology I have rendered the services for this patient under direct supervision of Dr. Alfaro, who did not see the patient but was available upon request 11/16/2023 Anemia, unspecified (ICD-10 - D64.9) Yanet is a 67-year-old female with a pmhx of T2DM on Ozempic, HLD, Asthma, vitamin D deficiency, s/p hip arthroplasty is here for [facility] hospital discharge for hypotension with abdominal pain, n/v, diarrhea, AMS. COVID positive. CT of abdomen pelvis showed acute pancreatitis. Labs were consistent with ALE and metabolic acidosis. Plan as follows: Abdominal pain Acute pancreatitis Diarrhea: - Elevated lipase. CT of abdomen/pelvis supports the evidence of pancreatitis. D/c Ozempic - Negative stool culture while at the hospital - She is currently on Loperamide prn. - Patient stated that she noticed an improvement in her sxs ALE Metabolic acidosis Hypernatremia Hypokalemia in the setting of diarrhea Hypophosphatemia - Diarrhea contributed to nongap acidosis. S/p D5w and significant electrolyte repletion. Improved electrolytes and acidosis on discharge. - She just today Sodium Bicarbonate 650mg 3 times a day - We will recheck comp COVID: - Feels better. Finished Dexamethasone. Anemia: - Hgb of 7.8. HCT 23.2. While in the hospital. D/C ASA. Possibly secondary to Hemodilution. review of hgb from last year was 12.9. We will repeat CBC with iron studies and observe. HTN: - Patient was hypotensive while in the ER. Lisinopril has been on hold. BP is WNL in the office. We will keep Lisinopril on hold and recheck in one week. Edema: - BL 2+ edema is noted. Started on discharge day. Otheriwse VS are normal. Secondary to IV fluids that were given at the hospital. Advised on hydration, leg elevation and walking. I will hold off on Furosemide for now as she has been experiencing UTI sxs. Dysuria: - Started 3 days ago. Pelvic pressure, burning sensation with urination, yellow discharge, fishy urine smell . No hematuria. Sent patient to do UA/Culture to r/o bacterial UTI vs BV. We will treat based on that. T2DM: - Well controlled. A1c of 5.1 Memory disturbance: - She has been seeing a neurology for memory disturbance but stopped seeing him due to insurance problem. We referred to a new neurology I have rendered the services for this patient under direct supervision of Dr. Alfaro, who did not see the patient but was available upon request 11/16/2023 Essential (primary) hypertension (ICD-10 - I10) Yanet is a 67-year-old female with a pmhx of T2DM on Ozempic, HLD, Asthma, vitamin D deficiency, s/p hip arthroplasty is here for [facility] hospital discharge for hypotension with abdominal pain, n/v, diarrhea, AMS. COVID positive. CT of abdomen pelvis showed acute pancreatitis. Labs were consistent with ALE and metabolic acidosis. Plan as follows: Abdominal pain Acute pancreatitis Diarrhea: - Elevated lipase. CT of abdomen/pelvis supports the evidence of pancreatitis. D/c Ozempic - Negative stool culture while at the hospital - She is currently on Loperamide prn. - Patient stated that she noticed an improvement in her sxs ALE Metabolic acidosis Hypernatremia Hypokalemia in the setting of diarrhea Hypophosphatemia - Diarrhea contributed to nongap acidosis. S/p D5w and significant electrolyte repletion. Improved electrolytes and acidosis on discharge. - She just today Sodium Bicarbonate 650mg 3 times a day - We will recheck comp COVID: - Feels better. Finished Dexamethasone. Anemia: - Hgb of 7.8. HCT 23.2. While in the hospital. D/C ASA. Possibly secondary to Hemodilution. review of hgb from last year was 12.9. We will repeat CBC with iron studies and observe. HTN: - Patient was hypotensive while in the ER. Lisinopril has been on hold. BP is WNL in the office. We will keep Lisinopril on hold and recheck in one week. Edema: - BL 2+ edema is noted. Started on discharge day. Otheriwse VS are normal. Secondary to IV fluids that were given at the hospital. Advised on hydration, leg elevation and walking. I will hold off on Furosemide for now as she has been experiencing UTI sxs. Dysuria: - Started 3 days ago. Pelvic pressure, burning sensation with urination, yellow discharge, fishy urine smell . No hematuria. Sent patient to do UA/Culture to r/o bacterial UTI vs BV. We will treat based on that. T2DM: - Well controlled. A1c of 5.1 Memory disturbance: - She has been seeing a neurology for memory disturbance but stopped seeing him due to insurance problem. We referred to a new neurology I have rendered the services for this patient under direct supervision of Dr. Alfaro, who did not see the patient but was available upon request 11/16/2023 Edema, unspecified (ICD-10 - R60.9) Yanet is a 67-year-old female with a pmhx of T2DM on Ozempic, HLD, Asthma, vitamin D deficiency, s/p hip arthroplasty is here for [facility] hospital discharge for hypotension with abdominal pain, n/v, diarrhea, AMS. COVID positive. CT of abdomen pelvis showed acute pancreatitis. Labs were consistent with ALE and metabolic acidosis. Plan as follows: Abdominal pain Acute pancreatitis Diarrhea: - Elevated lipase. CT of abdomen/pelvis supports the evidence of pancreatitis. D/c Ozempic - Negative stool culture while at the hospital - She is currently on Loperamide prn. - Patient stated that she noticed an improvement in her sxs ALE Metabolic acidosis Hypernatremia Hypokalemia in the setting of diarrhea Hypophosphatemia - Diarrhea contributed to nongap acidosis. S/p D5w and significant electrolyte repletion. Improved electrolytes and acidosis on discharge. - She just today Sodium Bicarbonate 650mg 3 times a day - We will recheck comp COVID: - Feels better. Finished Dexamethasone. Anemia: - Hgb of 7.8. HCT 23.2. While in the hospital. D/C ASA. Possibly secondary to Hemodilution. review of hgb from last year was 12.9. We will repeat CBC with iron studies and observe. HTN: - Patient was hypotensive while in the ER. Lisinopril has been on hold. BP is WNL in the office. We will keep Lisinopril on hold and recheck in one week. Edema: - BL 2+ edema is noted. Started on discharge day. Otheriwse VS are normal. Secondary to IV fluids that were given at the hospital. Advised on hydration, leg elevation and walking. I will hold off on Furosemide for now as she has been experiencing UTI sxs. Dysuria: - Started 3 days ago. Pelvic pressure, burning sensation with urination, yellow discharge, fishy urine smell . No hematuria. Sent patient to do UA/Culture to r/o bacterial UTI vs BV. We will treat based on that. T2DM: - Well controlled. A1c of 5.1 Memory disturbance: - She has been seeing a neurology for memory disturbance but stopped seeing him due to insurance problem. We referred to a new neurology I have rendered the services for this patient under direct supervision of Dr. Alfaro, who did not see the patient but was available upon request 11/16/2023 Difficult or painful urination (ICD-10 - R30.0) Yanet is a 67-year-old female with a pmhx of T2DM on Ozempic, HLD, Asthma, vitamin D deficiency, s/p hip arthroplasty is here for [facility] hospital discharge for hypotension with abdominal pain, n/v, diarrhea, AMS. COVID positive. CT of abdomen pelvis showed acute pancreatitis. Labs were consistent with ALE and metabolic acidosis. Plan as follows: Abdominal pain Acute pancreatitis Diarrhea: - Elevated lipase. CT of abdomen/pelvis supports the evidence of pancreatitis. D/c Ozempic - Negative stool culture while at the hospital - She is currently on Loperamide prn. - Patient stated that she noticed an improvement in her sxs ALE Metabolic acidosis Hypernatremia Hypokalemia in the setting of diarrhea Hypophosphatemia - Diarrhea contributed to nongap acidosis. S/p D5w and significant electrolyte repletion. Improved electrolytes and acidosis on discharge. - She just today Sodium Bicarbonate 650mg 3 times a day - We will recheck comp COVID: - Feels better. Finished Dexamethasone. Anemia: - Hgb of 7.8. HCT 23.2. While in the hospital. D/C ASA. Possibly secondary to Hemodilution. review of hgb from last year was 12.9. We will repeat CBC with iron studies and observe. HTN: - Patient was hypotensive while in the ER. Lisinopril has been on hold. BP is WNL in the office. We will keep Lisinopril on hold and recheck in one week. Edema: - BL 2+ edema is noted. Started on discharge day. Otheriwse VS are normal. Secondary to IV fluids that were given at the hospital. Advised on hydration, leg elevation and walking. I will hold off on Furosemide for now as she has been experiencing UTI sxs. Dysuria: - Started 3 days ago. Pelvic pressure, burning sensation with urination, yellow discharge, fishy urine smell . No hematuria. Sent patient to do UA/Culture to r/o bacterial UTI vs BV. We will treat based on that. T2DM: - Well controlled. A1c of 5.1 Memory disturbance: - She has been seeing a neurology for memory disturbance but stopped seeing him due to insurance problem. We referred to a new neurology I have rendered the services for this patient under direct supervision of Dr. Alfaro, who did not see the patient but was available upon request 11/16/2023 Type 2 diabetes mellitus without complications (ICD-10 - E11.9) Yanet is a 67-year-old female with a pmhx of T2DM on Ozempic, HLD, Asthma, vitamin D deficiency, s/p hip arthroplasty is here for [facility] hospital discharge for hypotension with abdominal pain, n/v, diarrhea, AMS. COVID positive. CT of abdomen pelvis showed acute pancreatitis. Labs were consistent with ALE and metabolic acidosis. Plan as follows: Abdominal pain Acute pancreatitis Diarrhea: - Elevated lipase. CT of abdomen/pelvis supports the evidence of pancreatitis. D/c Ozempic - Negative stool culture while at the hospital - She is currently on Loperamide prn. - Patient stated that she noticed an improvement in her sxs ALE Metabolic acidosis Hypernatremia Hypokalemia in the setting of diarrhea Hypophosphatemia - Diarrhea contributed to nongap acidosis. S/p D5w and significant electrolyte repletion. Improved electrolytes and acidosis on discharge. - She just today Sodium Bicarbonate 650mg 3 times a day - We will recheck comp COVID: - Feels better. Finished Dexamethasone. Anemia: - Hgb of 7.8. HCT 23.2. While in the hospital. D/C ASA. Possibly secondary to Hemodilution. review of hgb from last year was 12.9. We will repeat CBC with iron studies and observe. HTN: - Patient was hypotensive while in the ER. Lisinopril has been on hold. BP is WNL in the office. We will keep Lisinopril on hold and recheck in one week. Edema: - BL 2+ edema is noted. Started on discharge day. Otheriwse VS are normal. Secondary to IV fluids that were given at the hospital. Advised on hydration, leg elevation and walking. I will hold off on Furosemide for now as she has been experiencing UTI sxs. Dysuria: - Started 3 days ago. Pelvic pressure, burning sensation with urination, yellow discharge, fishy urine smell . No hematuria. Sent patient to do UA/Culture to r/o bacterial UTI vs BV. We will treat based on that. T2DM: - Well controlled. A1c of 5.1 Memory disturbance: - She has been seeing a neurology for memory disturbance but stopped seeing him due to insurance problem. We referred to a new neurology I have rendered the services for this patient under direct supervision of Dr. Alfaro, who did not see the patient but was available upon request 11/16/2023 Complaints of memory disturbance (ICD-10 - R41.3) Yanet is a 67-year-old female with a pmhx of T2DM on Ozempic, HLD, Asthma, vitamin D deficiency, s/p hip arthroplasty is here for [facility] hospital discharge for hypotension with abdominal pain, n/v, diarrhea, AMS. COVID positive. CT of abdomen pelvis showed acute pancreatitis. Labs were consistent with ALE and metabolic acidosis. Plan as follows: Abdominal pain Acute pancreatitis Diarrhea: - Elevated lipase. CT of abdomen/pelvis supports the evidence of pancreatitis. D/c Ozempic - Negative stool culture while at the hospital - She is currently on Loperamide prn. - Patient stated that she noticed an improvement in her sxs ALE Metabolic acidosis Hypernatremia Hypokalemia in the setting of diarrhea Hypophosphatemia - Diarrhea contributed to nongap acidosis. S/p D5w and significant electrolyte repletion. Improved electrolytes and acidosis on discharge. - She just today Sodium Bicarbonate 650mg 3 times a day - We will recheck comp COVID: - Feels better. Finished Dexamethasone. Anemia: - Hgb of 7.8. HCT 23.2. While in the hospital. D/C ASA. Possibly secondary to Hemodilution. review of hgb from last year was 12.9. We will repeat CBC with iron studies and observe. HTN: - Patient was hypotensive while in the ER. Lisinopril has been on hold. BP is WNL in the office. We will keep Lisinopril on hold and recheck in one week. Edema: - BL 2+ edema is noted. Started on discharge day. Otheriwse VS are normal. Secondary to IV fluids that were given at the hospital. Advised on hydration, leg elevation and walking. I will hold off on Furosemide for now as she has been experiencing UTI sxs. Dysuria: - Started 3 days ago. Pelvic pressure, burning sensation with urination, yellow discharge, fishy urine smell . No hematuria. Sent patient to do UA/Culture to r/o bacterial UTI vs BV. We will treat based on that. T2DM: - Well controlled. A1c of 5.1 Memory disturbance: - She has been seeing a neurology for memory disturbance but stopped seeing him due to insurance problem. We referred to a new neurology I have rendered the services for this patient under direct supervision of Dr. Alfaro, who did not see the patient but was available upon request Plan Of Treatment Pending Test Test Name Order Date CBC/Differential (No Platelet)-[id number] Albumin/Creatinine Ratio,Urine-[id number] Lipid Panel-[id number] 06/05/2024 Lipid Panel-[id number] 10/11/2023 Comp. Metabolic Panel (14)-[id number] 2024 Next Appt Details Provider Name:HOGUE A GUL , 12/20/2024 10:00:00 AM, [address] [place] [address], [phone], Insurance Providers Payer Name Payer Address Payer Phone Subscriber Number Group Number Insured Name Patient Relationship to Insured Coverage Start Date Coverage End Date [facility] [address] [place] [address] [id number] Yanet King Self - patient is the insured 2 for life [address] [place] [address] [id number] Yanet King Self - patient is the insured 2 Medical (General) History Medical History History ICD Code insulin-dependent diabetes mellitus type II, sees Dr. Kendall at [place] hyperlipidemia constipation osteoarthritis asthma fibromyalgia Chronic kidney disease and sees nephrolo gy DDD and had seen Pain mgm in [facility] and marlen k injection LLE - DVT and will see Dean Of Education at [facility] Surgical History Surgery Date(Month/Year) s/p gastric sleeve by Dr. Moreno 10/2018 cholecystectomy back surgery x2, Dr. Garcia and elena andrew doctor in [place] 2019 right carpal tunnel surgery pancreatitis 2023 RHT surgery 05/21
== END 2024-06-13 10:03 | disposition home or self-care (01) ==
LOC: HO.HOS 09:37
PROVIDERS: PCP Hospitalist; Visit Provider Orthopaedic Surgery
DX: Z96.641 Presence of right artificial hip joint (principal)
CPT/HCPCS: 99024

== ENCOUNTER → 2024-06-13 09:43 | Outpatient (BNV) | payer OTHER, SELFPAY | PROVIDERS: Visit Provider Radiology Diagnostic Radiology | DX: M25.552 Pain in left hip (principal) | CPT/HCPCS: 72170 ==

== ENCOUNTER 2024-07-25 08:58 | Outpatient (REF) | payer OTHER, SELFPAY ==
--- NOTE | ~2024-07-25 | XR_ITS ---
EXAMINATION: XR PELVIS 1-2 VIEWS, XR HIP 1 VIEW RIGHT HISTORY: M25.559 - Pain in unspecified hip COMPARISON: Comparison is made with the prior examination dated 06/13/2024. FINDINGS: Three views of the pelvis and an additional view of the right hip are submitted. The patient is status post bilateral total hip arthroplasty. The orthopedic elements are in anatomic alignment. There is no radiographic evidence of loosening. There is no fracture or dislocation. The patient is status post lower lumbar fusion with pedicle screws and spinal stabilization rods. A neural stimulator is seen in place. An IVC filter is noted. XR/XR hip RT 1V IMPRESSION: Status post bilateral total hip arthroplasty. Electronically signed by: Cr Hays MD 07/26/2024 08:36 AM EDT
--- NOTE | ~2024-07-25 | XR_ITS ---
EXAMINATION: XR PELVIS 1-2 VIEWS, XR HIP 1 VIEW RIGHT HISTORY: M25.559 - Pain in unspecified hip COMPARISON: Comparison is made with the prior examination dated 06/13/2024. FINDINGS: Three views of the pelvis and an additional view of the right hip are submitted. The patient is status post bilateral total hip arthroplasty. The orthopedic elements are in anatomic alignment. There is no radiographic evidence of loosening. There is no fracture or dislocation. The patient is status post lower lumbar fusion with pedicle screws and spinal stabilization rods. A neural stimulator is seen in place. An IVC filter is noted. XR/XR pelvis 1-2V IMPRESSION: Status post bilateral total hip arthroplasty. Electronically signed by: Cr Hays MD 07/26/2024 08:36 AM EDT
--- OUTSIDE RECORDS SUMMARY | 2024-07-25 09:32 | XMS_ITS | Encounter Summary ---
Author Organization [facility] Address [address] [place] [address] Care Team Providers Care Senior Sales Representative Name Role Phone Ayan [place] MD Primary Care Provider [phone] Reason for Visit * Reason Comments E-prescribe Rx Request Encounter Details Date Type Department Care Team Description 02/15/2022 Refill Gastroenterology - [place] [address] [facility] [address] [place] [address] Jerrod Joe PA-C E-prescribe Rx [...] filedocumented in this encounter Care Teams Senior Sales Representative Relationship Specialty Start Date End Date Ayan Clayton MD [address] [place] [address] PCP - General Internal Medicine 09/24/19 documented as of this encounter
--- OUTSIDE RECORDS SUMMARY | 2024-07-25 09:32 | XMS_ITS | Encounter Summary ---
Author Organization [facility] Address [address] [place] [address] Care Team Providers Care Hoop Riveting Machine Operator Helper Name Role Phone Ayan [place] MD Primary Care Provider Reason for Visit * Reason Onset Date Comments APPOINTMENT 02/14/2022 Encounter Details Date Type Department Care Team Description 02/14/2022 Telephone Nephrology - [place] [address] [place], [place] [phone] Vega Navarro MD [address] [place], [place] [phone] APPOINTMENT Social History Tobacco Use Types Packs/Day [...] on filedocumented in this encounter Care Teams Hoop Riveting Machine Operator Helper Relationship Specialty Start Date End Date Ayan Clayton MD [address] [place] [address] PCP - General Internal Medicine 09/24/19 documented as of this encounter
--- OUTSIDE RECORDS SUMMARY | 2024-07-25 09:32 | XMS_ITS | Encounter Summary ---
Author Organization [facility] Address [address] [place] [address] Care Team Providers Care Automatic Edger Name Role Phone Ayan [place] MD Primary Care Provider [phone] Encounter Details Date Type Department Care Team Description 10/19/2021 Pipe Smoking Machine Offbearer Report Medical Records [address] [place] [address] Skylar Hanna DPM Social History Tobacco Use [...] on filedocumented in this encounter Care Teams Automatic Edger Relationship Specialty Start Date End Date Ayan [place] MD [address] [place], [place] [phone] PCP - General Internal Medicine 09/24/19 documented as of this encounter
--- OUTSIDE RECORDS SUMMARY | 2024-07-25 09:32 | XMS_ITS | Encounter Summary ---
Author Organization [facility] Address [address] [place] [address] Care Team Providers Care Certified Phlebotomist Name Role Phone Ayan [place] MD Primary Care Provider [phone] Reason for Visit * Reason Comments E-prescribe Rx Request Encounter Details Date Type Department Care Team Description 11/16/2021 Refill Adult Medicine [facility] [address] [place], [place] [phone] Ayan Clayton MD [address] [place] [address] [phone] E-prescribe Rx Request Social History Tobacco Use [...] insurance carrier is: Pay[place] / Plan: [place] / Product Type: MEDICARE [id number] documented in this encounter Plan of Treatment Not on file documented as of this encounter Visit Diagnoses Not on filedocumented in this encounter Care Teams Certified Phlebotomist Relationship Specialty Start Date End Date Ayan [place] MD [address] [place] [address] PCP - General Internal Medicine 09/24/19 documented as of this encounter
--- OUTSIDE RECORDS SUMMARY | 2024-07-25 09:32 | XMS_ITS | Encounter Summary ---
Author Organization [facility] Address [address] [place] [address] Care Team Providers Care Appeals Assistant Name Role Phone Ayan [place] MD Primary Care Provider [phone] Reason for Visit * Reason Comments E-prescribe Rx Request Encounter Details Date Type Department Care Team Description 10/22/2021 Refill Adult Medicine [facility] [address] [place] [address] Carmina Benavidez PA-C E-prescribe Rx Request Social History Tobacco [...] encounter Miscellaneous Notes * Telephone Encounter - Nevaeh Townsend M.A. - 10/25/2021 1:33 PM EDT KAY 05/07/21 - PCP NOV 12/07/21- PCP documented in this encounter Plan of Treatment Not on file documented as of this encounter Visit Diagnoses Not on filedocumented in this encounter Care Teams Appeals Assistant Relationship Specialty Start Date End Date Ayan [place] MD [address] [place] [address] PCP - General Internal Medicine 09/24/19 documented as of this encounter
--- OUTSIDE RECORDS SUMMARY | 2024-07-25 09:32 | XMS_ITS | Encounter Summary ---
Author Organization [facility] Address [address] [place] [address] Care Team Providers Care Content Coordinator Name Role Phone Ayan [place] MD Primary Care Provider [phone] Reason for Visit * Reason Comments E-prescribe Rx Request Encounter Details Date Type Department Care Team Description 12/10/2021 Refill Endocrinology - [place] [address] [place] [address] Juan Alberto Kendall MD [address] [place], [place] [phone] E-prescribe Rx Request Social History Tobacco Use [...] uncontrolled documented in this encounter Care Teams Content Coordinator Relationship Specialty Start Date End Date Ayan [place] MD [address] [place] [address] PCP - General Internal Medicine 09/24/19 documented as of this encounter
--- OUTSIDE RECORDS SUMMARY | 2024-07-25 09:32 | XMS_ITS | Encounter Summary ---
Author Organization [facility] Address [address] [place] [address] Care Team Providers Care Rig Operator Name Role Phone Ayan [place] MD Primary Care Provider [phone] Reason for Visit * Reason Comments E-prescribe Rx Request Encounter Details Date Type Department Care Team Description 11/12/2021 Refill Endocrinology - [place] [address] [place] [address] Juan Alberto Kendall MD [address] [place], [place] [phone] E-prescribe Rx Request Social History Tobacco Use [...] uncontrolled documented in this encounter Care Teams Rig Operator Relationship Specialty Start Date End Date Ayan [place] MD [address] [place] [address] PCP - General Internal Medicine 09/24/19 documented as of this encounter
--- OUTSIDE RECORDS SUMMARY | 2024-07-25 09:32 | XMS_ITS | Encounter Summary ---
Author Organization [facility] Address [address] [place] [address] Care Team Providers Care Resolution Analyst Name Role Phone Daniel Mota MD Primary Care Provider Unavail Victor Manuel Yu MD Primary Care Provider Unava ilable Daniel Mota MD Primary Care Provider Unavail Ayan Pulliam MD Primary Care Provider [phone] Victor Manuel Gonzales MD Primary Care Provider Unava jaxson Encounter Details Date Type Department Care Team Description 02/13/2007 [facility] Medical Records [address] [place] [address] Brennon Nguyen Social History Tobacco Use Types [...] on filedocumented in this encounter Care Teams Resolution Analyst Relationship Specialty Start Date End Date Daniel Mota MD PCP - General 07/27/1994 12/22/15 Victor Manuel Gonzales MD PCP - General Internal Medicine 07/22/16 10/19/16 Daniel Mota MD PCP - General Internal Medicine 10/20/16 09/23/19 Ayan [place] MD [address] [place] [address] PCP - General Internal Medicine 09/24/19 Victor Manuel Gonzales MD PCP - General 12/23/15 07/21/16 documented as of this encounter
--- OUTSIDE RECORDS SUMMARY | 2024-07-25 09:33 | XMS_ITS | Encounter Summary ---
Author Organization [facility] Address [address] [place] [address] Care Team Providers Care Career Technical Counselor Name Role Phone Daniel Mota MD Primary Care Provider Ayan Rubalcava MD Primary Care Provider [phone] Encounter Details Date Type Department Care Team Description 11/19/2018 Orders Only Medical Records [address] [place] [address] Abstract, Provider Social History Tobacco Use Types [...] filedocumented in this encounter Care Teams Career Technical Counselor Relationship Specialty Start Date End Date Daniel Mota MD PCP - General Internal Medicine 10/20/16 09/23/19 Ayan [place] MD [address] [place] [address] PCP - General Internal Medicine 09/24/19 documented as of this encounter
--- OUTSIDE RECORDS SUMMARY | 2024-07-25 09:33 | XMS_ITS | Encounter Summary ---
Author Organization [facility] [place] Address [address] [place] [address] Care Team Providers Care Engagement Engineer Name Role Phone Daniel Mota MD Primary Care Provider Unavail able Ayan [place] MD Primary Care Provider [phone] Encounter Details Date Type Department Care Team Description 12/06/2018 Home Health Certification Medical Records [address] [place] [address] Home, [facility] [address] [facility] [address] [place] [address] Social History Tobacco Use Types Packs/Day Years [...] on filedocumented in this encounter Care Teams Engagement Engineer Relationship Specialty Start Date End Date Daniel Mota MD PCP - General Internal Medicine 10/20/16 09/23/19 Ayan [place] MD [address] [place] [address] PCP - General Internal Medicine 09/24/19 documented as of this encounter
--- OUTSIDE RECORDS SUMMARY | 2024-07-25 09:33 | XMS_ITS | Encounter Summary ---
Author Organization [facility] Address [address] [place] [address] Care Team Providers Care Pharmacy Scheduler Name Role Phone Ayan [place] MD Primary Care Provider [phone] Encounter Details Date Type Department Care Team Description 12/14/2023 Telephone Adult Medicine [address] [phone] Ayan [place] MD [address] [place] [address] [phone] Social History Tobacco Use Types Packs/Day Years [...] filedocumented in this encounter Care Teams Pharmacy Scheduler Relationship Specialty Start Date End Date Ayan [place] MD [address] [place] [address] PCP - General Internal Medicine 09/24/19 documented as of this encounter
--- OUTSIDE RECORDS SUMMARY | 2024-07-25 09:33 | XMS_ITS | Encounter Summary ---
Author Organization [facility] Address [address] [place] [address] Care Team Providers Care Rod Mill Tender Name Role Phone Ayan [place] MD Primary Care Provider [phone] Encounter Details Date Type Department Care Team Description 07/03/2023 Orders Only Medical Records [address] [place] [address] Social History Tobacco Use Types Packs/Day Years [...] [facility] * OUTSIDE CT (06/10/2023) [facility] RADIOLOGY * OUTSIDE MRI/MRA (06/10/2023) [facility] RADIOLOGY documented in this encounter Visit Diagnoses Not on filedocumented in this encounter Care Teams Rod Mill Tender Relationship Specialty Start Date End Date Ayan [place] MD [address] [place] [address] PCP - General Internal Medicine 09/24/19 documented as of this encounter
--- OUTSIDE RECORDS SUMMARY | 2024-07-25 09:33 | XMS_ITS | Encounter Summary ---
Author Organization [facility] Address [address] [place] [address] Care Team Providers Care Quality Control Engineering Technician Name Role Phone Daniel Mota MD Primary Care Provider [facility] Ayan Pulliam MD Primary Care Provider [phone] Reason for Visit * Reason Onset Date Comments hospital follow up 11/23/2018 Encounter Details Date Type Department Care Team Description 11/23/2018 Telephone Adult Medicine [address] [address] Daniel Mota MD hospital follow up Social [...] Spoke to pt. She was D/c from [facility] on 11[facility]22/ She will be receiving VNA, , appt being set up , appt booked, for 12/03/2018 at 10:30 am Pt agreed to time and date * Telephone Encounter - Skylar Bardalesmargie - 11/23/2018 10:16 AM EDT Hospital follow up appointment needed Hospital patient was treated at: [facility] Was this only an ER [...] on filedocumented in this encounter Care Teams Quality Control Engineering Technician Relationship Specialty Start Date End Date Daniel Mota MD PCP - General Internal Medicine 10/20/16 09/23/19 Ayan [place] MD [address] [place] [address] PCP - General Internal Medicine 09/24/19 documented as of this encounter
--- OUTSIDE RECORDS SUMMARY | 2024-07-25 09:33 | XMS_ITS | Encounter Summary ---
Author Organization [facility] Address [address] [place] [address] Care Team Providers Care Molding Engineer Name Role Phone Daniel Mota MD Primary Care Provider Unavail Victor Manuel Yu MD Primary Care Provider Unava ilable Daniel Mota MD Primary Care Provider Unavail able Ayan [place] MD Primary Care Provider [phone] Victor Manuel Gonzales MD Primary Care Provider Unava ilable Reason for Referral * Specialist (Routine) - Authorized/Booked Specialty Diagnoses / Procedures Referred By Contact Referred To Contact INTERVENTIONAL RADIOLOGY Procedures REFERRAL TO INTERVENTIONAL RADIOLOGY Bharath Rico MD [address] [place] [address] Ext Interventional Rad Referral ID Status Reason Start Date Expiration Date V isits Requested Visits Authorized SEE REVIEW 11/06/12 Authorized/ Booked 11/27/2012 02/27/2013 1 1 * Specialist (Routine) - Authorized/Booked Specialty Diagnoses / Procedures Referred By Contact Referred To Contact INTERVENTIONAL RADIOLOGY Diagnoses Lymphadenopathy Procedures REFERRAL TO INTERVENTIONAL RADIOLOGY Bharath Rico MD [address] [place] [address] Ext Interventional Rad Referral ID Status Reason Start Date Expiration Date V isits Requested Visits Authorized SEE REVIEW 11/06/12 Authorized/ Booked 11/27/2012 02/27/2013 1 1 Encounter Details Date Type Department Care Team Description 11/27/2012 Orders Only General Surgery [address] [place] [address] Bharath Rico MD [address] [place] [address] Lymphadenopathy (Primary Dx) Social History Tobacco Use [...] nodes documented in this encounter Care Teams Molding Engineer Relationship Specialty Start Date End Date Daniel Mota MD PCP - General 07/27/1994 12/22/15 Victor Manuel Gonzales MD PCP - General Internal Medicine 07/22/16 10/19/16 Daniel Mota MD PCP - General Internal Medicine 10/20/16 09/23/19 Ayan [place] MD [address] [place] [address] PCP - General Internal Medicine 09/24/19 Victor Manuel Gonzales MD PCP - General 12/23/15 07/21/16 documented as of this encounter
--- OUTSIDE RECORDS SUMMARY | 2024-07-25 09:33 | XMS_ITS | Clinical Summary ---
Author Organization [facility] Address [address] [place] [address] Care Team Providers Care Real Estate Coordinator Name Role Phone Ayan [place] MD Primary Care Provider [phone] Allergies Active Allergy Reactions Severity Noted Date [...] salmon, (MIACALCIN) 200 UNIT/ACT nasal spray 1 [place] by Alternating Nares route daily. 3.7 mL [...] just unsure what to do Educational Resources [place] [employer] (www.diabetes.org) Centers for Disease Control [...] 07/08/2013 Type 2 diabetes mellitus with renal annat festations 07/11/2012 Overview: Microalbumin 58 on 08/2011 [...] Vaccine ( season) 2023 05/03/2021, 06/23/2020, 05/26/2020 DEPRESSION SCREEN 12/09/2023 12/08/2022, , 12/25/2017, Additional [...] 08/15/2024 08/16/2023, 07/25, 08/11/2021, Additional history exists INFLUENZA (Season Ended) 2024 023, 12/07/2021, 12/22/2020, Additional history exists DIABETES: ANNUAL URINE PROTEIN [...] Advance Directives For more information, please contact: [phone] Latest Code Status on File Code Status Date Activated Date Inactivated Comments Partial Code 01/29/2023 1:25 PM molst form signed 01/03/2023 no dialysis use intubation but short term only Care Teams Real Estate Coordinator Relationship Specialty Start Date End Date Ayan [place] MD [address] [place] [address] PCP - General Internal Medicine 09/24/19
--- OUTSIDE RECORDS SUMMARY | 2024-07-25 09:33 | XMS_ITS | Encounter Summary ---
Author Organization [facility] Address [address] [place] [address] Care Team Providers Care Industrial Conveyor Belt Repairer Name Role Phone Daniel Mota MD Primary Care Provider [facility] Ayan Pulliam MD Primary Care Provider [phone] Reason for Visit * Reason Onset Date Comments Faxed Order 12/14/2018 Encounter Details Date Type Department Care Team Description 12/14/2018 Telephone Adult Medicine [address] [address] Daniel Mota MD Faxed Order Social History [...] 10:26 AM EDT Faxed order received from [facility] at Home, please sign date and return order to fax number [phone]. * Telephone Encounter - Rosa Latham - 12/14/2018 9:35 AM EDT Physician Order for Dr. Daniel Mota's signature documented in this encounter Plan of Treatment Not on file documented as of this encounter Visit Diagnoses Not on filedocumented in this encounter Care Teams Industrial Conveyor Belt Repairer Relationship Specialty Start Date End Date Daniel Mota MD PCP - General Internal Medicine 10/20/16 09/23/19 Ayan [place] MD [address] [place] [address] PCP - General Internal Medicine 09/24/19 documented as of this encounter
--- OUTSIDE RECORDS SUMMARY | 2024-07-25 09:33 | XMS_ITS | Encounter Summary ---
Author Organization [facility] Address [address] [place] [address] Care Team Providers Care Latin Dancer Name Role Phone Ayan Clayton MD Primary Care Provider [phone] Reason for Visit * Reason Onset Date Comments VNA Call 08/31/2023 Encounter Details Date Type Department Care Team Description 08/31/2023 Telephone Adult Medicine [address] [phone] Ayan Clayton MD [address] [place] [address] [phone] VNA Call Social History Tobacco Use Types [...] - 08/31/2023 11:56 AM EDT [facility] od[facility] for nursing Ortho gave the original order for PTand OT Please review and advise Please send response to the VNA pool P [phone] Thank you Last visit08/01/23 documented in this encounter Plan of Treatment Not on file documented as of this encounter Visit Diagnoses Not on filedocumented in this encounter Care Teams Latin Dancer Relationship Specialty Start Date End Date Ayan [place] MD [address] [place] [address] PCP - General Internal Medicine 09/24/19 documented as of this encounter
--- OUTSIDE RECORDS SUMMARY | 2024-07-25 09:33 | XMS_ITS | Encounter Summary ---
Author Organization [facility] Address [address] [place] [address] Care Team Providers Care Mid Level Business Analyst Name Role Phone Ayan [place] MD Primary Care Provider [phone] Encounter Details Date Type Department Care Team Description 03/30/2022 Orders Only Adult Medicine [facility] [address] [place], [place] [phone] Jhoana Hernandez PA-C [address] [place] [address] [phone] Snoring; Chronic insomnia; Nocturnal hypoxemia Social History [...] Hypoxemia documented in this encounter Care Teams Mid Level Business Analyst Relationship Specialty Start Date End Date Ayan [place] MD [address] [place] [address] PCP - General Internal Medicine 09/24/19 documented as of this encounter
--- OUTSIDE RECORDS SUMMARY | 2024-07-25 09:33 | XMS_ITS | Encounter Summary ---
Author Organization [facility] Address [address] [place] [address] Care Team Providers Care Parcel Post Clerk Name Role Phone Daniel Mota MD Primary Care Provider Unavail able Ayan [place] MD Primary Care Provider [phone] Encounter Details Date Type Department Care Team Description 11/22/2018 Hospital Medical Records [address] [place] [address] Bashir Booth Social History Tobacco Use Types [...] on filedocumented in this encounter Care Teams Parcel Post Clerk Relationship Specialty Start Date End Date Daniel Mota MD PCP - General Internal Medicine 10/20/16 09/23/19 Ayan [place] MD [address] [place] [address] PCP - General Internal Medicine 09/24/19 documented as of this encounter
--- OUTSIDE RECORDS SUMMARY | 2024-07-25 09:33 | XMS_ITS | Encounter Summary ---
Author Organization [facility] Address [address] [place] [address] Care Team Providers Care Precast Concrete Products Installer Name Role Phone Daniel Mota MD Primary Care Provider [facility] Ayan Pulliam MD Primary Care Provider [phone] Encounter Details Date Type Department Care Team Description 09/04/2018 Telephone Adult Medicine [facility] [address] [place] [address] Daniel Mota MD Social History Tobacco Use [...] couple of weeks.. When she receive the [employer] pro she is going to call me for appt with Dr. Mota.. documented in this encounter Plan of Treatment Not on file documented as of this encounter Visit Diagnoses Not on filedocumented in this encounter Care Teams Precast Concrete Products Installer Relationship Specialty Start Date End Date Daniel Mota MD PCP - General Internal Medicine 10/20/16 09/23/19 Ayan [place] MD [address] [place] [address] PCP - General Internal Medicine 09/24/19 documented as of this encounter
--- OUTSIDE RECORDS SUMMARY | 2024-07-25 09:33 | XMS_ITS | Encounter Summary ---
Author Organization [facility] Address [address] [place] [address] Care Team Providers Care Motorcycle Repairer Name Role Phone Daniel Mota MD Primary Care Provider Unavail able Ayan [place] MD Primary Care Provider [phone] Encounter Details Date Type Department Care Team Description 02/06/2019 Hospital Medical Records [address] [place] [address] Daniel Ibarra Social History Tobacco Use Types [...] on filedocumented in this encounter Care Teams Motorcycle Repairer Relationship Specialty Start Date End Date Daniel Mota MD PCP - General Internal Medicine 10/20/16 09/23/19 Ayan [place] MD [address] [place], [place] [phone] PCP - General Internal Medicine 09/24/19 documented as of this encounter
--- OUTSIDE RECORDS SUMMARY | 2024-07-25 09:33 | XMS_ITS | Encounter Summary ---
Author Organization [facility] Address [address] [place] [address] Care Team Providers Care Hadoop Administrator Name Role Phone Daniel Mota MD Primary Care Provider [facility] Ayan Pulliam MD Primary Care Provider [phone] Encounter Details Date Type Department Care Team Description 10/17/2018 Orders Only Medical Records [address] [place] [address] Torrey Moreno MD [address] [place] [address] DR[address] [place] [address] Social History Tobacco Use Types Packs/Day Years [...] on filedocumented in this encounter Care Teams Hadoop Administrator Relationship Specialty Start Date End Date Daniel Mota MD PCP - General Internal Medicine 10/20/16 09/23/19 Ayan Clayton MD [address] [place] [address] PCP - General Internal Medicine 09/24/19 documented as of this encounter
--- OUTSIDE RECORDS SUMMARY | 2024-07-25 09:33 | XMS_ITS | Encounter Summary ---
Author Organization [facility] Address [address] [place] [address] Care Team Providers Care Community Support Specialist Name Role Phone Daniel Mota MD Primary Care Provider Unavail able Ayan Clayton MD Primary Care Provider [phone] Encounter Details Date Type Department Care Team Description 08/29/2019 Recruiting And Selection Consultant Report Medical Records [address] [place] [address] Ta Garcia MD Social History Tobacco Use [...] on filedocumented in this encounter Care Teams Community Support Specialist Relationship Specialty Start Date End Date Daniel Mota MD PCP - General Internal Medicine 10/20/16 09/23/19 Ayan Clayton MD [address] [place] [address] [phone] PCP - General Internal Medicine 09/24/19 documented as of this encounter
--- OUTSIDE RECORDS SUMMARY | 2024-07-25 09:33 | XMS_ITS | Encounter Summary ---
Author Organization [facility] Address [address] [place] [address] Care Team Providers Care Secretary Administrative Assistant Name Role Phone Ayan Clayton MD Primary Care Provider [phone] Encounter Details Date Type Department Care Team Description 06/16/2023 Hospital Medical Records [address] [place] [address] Social History Tobacco Use Types Packs/Day Years [...] on filedocumented in this encounter Care Teams Secretary Administrative Assistant Relationship Specialty Start Date End Date Ayan Clayton MD [address] [place] [address] [phone] PCP - General Internal Medicine 09/24/19 documented as of this encounter
--- OUTSIDE RECORDS SUMMARY | 2024-07-25 09:33 | XMS_ITS | Encounter Summary ---
Author Organization [facility] Address [address] [place] [address] Care Team Providers Care De Icer Finisher Name Role Phone Daniel Mota MD Primary Care Provider [facility] Ayan Clayton MD Primary Care Provider [phone] Reason for Visit * Reason Comments E-prescribe Rx Request Encounter Details Date Type Department Care Team Description 01/18/2019 [facility] General [facility] - [place] 175 [facility] [address] [place] [id number] Torrey Moreno MD [address] [place] [address] [address] [place] [address] E-prescribe Rx Request Social History Tobacco Use [...] on filedocumented in this encounter Care Teams De Icer Finisher Relationship Specialty Start Date End Date Daniel Mota MD PCP - General Internal Medicine 10/20/16 09/23/19 Ayan Clayton MD [address] [place] [id number] PCP - General Internal Medicine 09/24/19 documented as of this encounter
--- OUTSIDE RECORDS SUMMARY | 2024-07-25 09:33 | XMS_ITS | Encounter Summary ---
Author Organization [facility] Address [address] [place] [address] Care Team Providers Care Sand Sifter Name Role Phone Ayan Clayton MD Primary Care Provider [phone] Encounter Details Date Type Department Care Team Description 06/10/2023 Hospital Medical Records [address] [place] [address] Social History Tobacco Use Types Packs/Day Years [...] filedocumented in this encounter Care Teams Sand Sifter Relationship Specialty Start Date End Date Ayan Clayton MD [address] [place] [address] [phone] PCP - General Internal Medicine 09/24/19 documented as of this encounter
--- OUTSIDE RECORDS SUMMARY | 2024-07-25 09:33 | XMS_ITS | Encounter Summary ---
Author Organization [facility] Address [address] [place] [address] Care Team Providers Care Security Dispatcher Name Role Phone Ayan Clayton MD Primary Care Provider [phone] Encounter Details Date Type Department Care Team Description 06/27/2023 Metal Stamping Machine Operator Report Medical Records [address] [place] [address] Vega Garcia Social History Tobacco Use Types [...] filedocumented in this encounter Care Teams Security Dispatcher Relationship Specialty Start Date End Date Ayan Clayton MD [address] [place] [address] PCP - General Internal Medicine 09/24/19 documented as of this encounter
--- OUTSIDE RECORDS SUMMARY | 2024-07-25 09:33 | XMS_ITS | Encounter Summary ---
Author Organization [facility] Address [address] [place] [address] Care Team Providers Care Mechanic Recovery Name Role Phone Ayan Clayton MD Primary Care Provider Reason for Visit * Reason Onset Date Comments Medication Injection 05/12/2023 Gel inj Encounter Details Date Type Department Care Team Description 05/12/2023 Telephone [facility] 175 [facility] [address] [place] [phone] Norma Burr MD [address] [address] Medication Injection (Gel inj) Social History Tobacco Use Types Packs/Day Years [...] encounter Miscellaneous Notes * Telephone Encounter - Nilsa Warner - 05/22/2023 9:23 AM EST Auth approved 05/15/23 - 09/13/23 Auth number: [id number] * Telephone Encounter - Nilsa Warner - 05/15/2023 8:50 AM EST Euflexxa covered at 100% auth pending * Telephone Encounter - Nilsa Warner - 05/12/2023 2:53 PM EST B/L knee Euflexxa request submitted to portal. Waiting on investigation of benefits. documented in this encounter Plan of Treatment Not on file documented as of this encounter Visit Diagnoses Not on filedocumented in this encounter Care Teams Mechanic Recovery Relationship Specialty Start Date End Date Ayan Clayton MD [address] [place] [address] PCP - General Internal Medicine 09/24/19 documented as of this encounter
--- OUTSIDE RECORDS SUMMARY | 2024-07-25 09:33 | XMS_ITS | Encounter Summary ---
Author Organization [facility] Address [address] [place] [address] Care Team Providers Care Floor Assembler Name Role Phone Ayan Clayton MD Primary Care Provider [phone] Encounter Details Date Type Department Care Team Description 08/24/2023 T[place]man Report Medical Records [address] [place] [address] Izabel Hoang Social History Tobacco Use Types [...] on filedocumented in this encounter Care Teams Floor Assembler Relationship Specialty Start Date End Date Ayan Clayton MD [address] [place] [address] [phone] PCP - General Internal Medicine 09/24/19 documented as of this encounter
--- OUTSIDE RECORDS SUMMARY | 2024-07-25 09:33 | XMS_ITS | Encounter Summary ---
Author Organization [facility] Address [address] [place] [address] Care Team Providers Care Mat Roller Name Role Phone Ayan Clayton MD Primary Care Provider [phone] Encounter Details Date Type Department Care Team Description 06/11/2023 Industrial Coffee Grinder Report Medical Records [address] [place] [address] Vega Garcia Social History Tobacco Use Types [...] on filedocumented in this encounter Care Teams Mat Roller Relationship Specialty Start Date End Date Ayan Clayton MD [address] [place] [address] PCP - General Internal Medicine 09/24/19 documented as of this encounter
--- OUTSIDE RECORDS SUMMARY | 2024-07-25 09:33 | XMS_ITS | Encounter Summary ---
Author Organization [facility] Address [address] [place] [address] Care Team Providers Care Glazier Artist Name Role Phone Ayan Clayton MD Primary Care Provider [phone] Reason for Visit * Reason Onset Date Comments Faxed Order 03/17/2022 [facility] Encounter Details Date Type Department Care Team Description 03/17/2022 Telephone Adult Medicine [facility] [address] [place] [address] [phone] Ayan Clayton MD [address] [place] [address] [phone] Faxed Order ([facility] ) Social History Tobacco Use Types [...] on filedocumented in this encounter Care Teams Glazier Artist Relationship Specialty Start Date End Date Ayan Clayton MD [address] [place] [phone] PCP - General Internal Medicine 09/24/19 documented as of this encounter
--- OUTSIDE RECORDS SUMMARY | 2024-07-25 09:33 | XMS_ITS | Encounter Summary ---
Author Organization [facility] Address [address] [place] [address] Care Team Providers Care Tape Maker Name Role Phone Daniel Mota MD Primary Care Provider Unavail Victor Manuel Yu MD Primary Care Provider Unava ilable Daniel Mota MD Primary Care Provider Unavail Ayan Pulliam MD Primary Care Provider [phone] Victor Manuel Gonzales MD Primary Care Provider Unava ilmaximino Encounter Details Date Type Department Care Team Description 02/12/2013 Pt. Non Urgent Medical Question General Surgery [address] [place] [address] [phone] Bharath Rico MD [address] [place] [address] [phone] Social History Tobacco Use Types Packs/Day Years [...] on filedocumented in this encounter Care Teams Tape Maker Relationship Specialty Start Date End Date Daniel Mota MD PCP - General 07/27/1994 12/22/15 Victor Manuel Gonzales MD PCP - General Internal Medicine 07/22/16 10/19/16 Daniel Mota MD PCP - General Internal Medicine 10/20/16 09/23/19 Ayan Clayton MD [address] [place] [address] PCP - General Internal Medicine 09/24/19 Victor Manuel Gonzales MD PCP - General 12/23/15 07/21/16 documented as of this encounter
--- OUTSIDE RECORDS SUMMARY | 2024-07-25 09:33 | XMS_ITS | Encounter Summary ---
Author Organization [facility] Address [address] [place] [address] Care Team Providers Care Compliance Field Technician Name Role Phone Ayan Clayton MD Primary Care Provider Encounter Details Date Type Department Care Team Description 03/10/2022 Blade Bender Furnace Tender Report Medical Records [address] [place] [address] Rell Leavitt Social History Tobacco Use Types [...] on filedocumented in this encounter Care Teams Compliance Field Technician Relationship Specialty Start Date End Date Ayan Clayton MD [address] [place], [place] [phone] PCP - General Internal Medicine 09/24/19 documented as of this encounter
--- OUTSIDE RECORDS SUMMARY | 2024-07-25 09:33 | XMS_ITS | Encounter Summary ---
Author Organization [facility] Address [address] [place] [address] Care Team Providers Care Television Station Manager Name Role Phone Daniel Mota MD Primary Care Provider Ayan Rubalcava MD Primary Care Provider [phone] Encounter Details Date Type Department Care Team Description 05/31/2018 Telephone General Surgery - [place] 175 [facility] [address] [place] [address] Torrey Moreno MD [address] [place] [address] DR[address] [place], [place] [phone] Social History Tobacco Use Types Packs/Day Years [...] on filedocumented in this encounter Care Teams Television Station Manager Relationship Specialty Start Date End Date Daneil Mota MD PCP - General Internal Medicine 10/20/16 09/23/19 Ayan Clayton MD [address] [place] [id number] PCP - General Internal Medicine 09/24/19 documented as of this encounter
--- OUTSIDE RECORDS SUMMARY | 2024-07-25 09:33 | XMS_ITS | Encounter Summary ---
Author Organization [facility] Address [address] [place] [address] Care Team Providers Care Inspector Pawnshop Detail Name Role Phone Ayan Clayton MD Primary Care Provider [phone] Encounter Details Date Type Department Care Team Description 06/18/2023 Hospital Medical Records [address] [place] [address] Social History Tobacco Use Types Packs/Day Years [...] filedocumented in this encounter Care Teams Inspector Pawnshop Detail Relationship Specialty Start Date End Date Ayan Clayton MD [address] [place] [address] [phone] PCP - General Internal Medicine 09/24/19 documented as of this encounter
--- OUTSIDE RECORDS SUMMARY | 2024-07-25 09:33 | XMS_ITS | Encounter Summary ---
Author Organization [facility] Address [address] [place] [address] Care Team Providers Care Build And Release Manager Name Role Phone Ayan Clayton MD Primary Care Provider [phone] Encounter Details Date Type Department Care Team Description 06/19/2023 Orders Only Medical Records [address] [place] [address] Bird Nielson Np Social History Tobacco Use [...] on filedocumented in this encounter Care Teams Build And Release Manager Relationship Specialty Start Date End Date Ayan Clayton MD [address] [place], [place] [phone] PCP - General Internal Medicine 09/24/19 documented as of this encounter
--- OUTSIDE RECORDS SUMMARY | 2024-07-25 09:33 | XMS_ITS | Encounter Summary ---
Author Organization [facility] Address [address] [place] [address] Care Team Providers Care Citrus Fruit Packer Name Role Phone Daniel Mota MD Primary Care Provider Unavail able Ayan Clayton MD Primary Care Provider [phone] Encounter Details Date Type Department Care Team Description 07/18/2018 Telephone Adult Medicine [facility] [address] [place] [address] Daniel Mota MD Social History Tobacco Use Types Packs/Day Years Used Date Smoking Tobacco: Former Cigarettes 4 45 1 963 - 03/27/2007 Smokeless Tobacco: Never Alcohol Use Standard Drinks/Week Comments No 0 (1 standard drink = 0.6 oz pur e alcohol) Sex Assigned at Date Recorded Female 07/15/2020 1:36 AM EDT Job Start Date Occupation Industry Not on file Not on file Not on file documented as of this encounter Plan of Treatment Not on file documented as of this encounter Visit Diagnoses Not on filedocumented in this encounter Care Teams Citrus Fruit Packer Relationship Specialty Start Date End Date Daniel Mota MD PCP - General Internal Medicine 10/20/16 09/23/19 Ayan Clayton MD [address] [place] [address] PCP - General Internal Medicine 09/24/19 documented as of this encounter
--- OUTSIDE RECORDS SUMMARY | 2024-07-25 09:33 | XMS_ITS | Encounter Summary ---
Author Organization [facility] Address [address] [place] [address] Care Team Providers Care Block Handler Name Role Phone Daniel Mota MD Primary Care Provider Unavail Victor Manuel Yu MD Primary Care Provider Unava ilable Daniel Mota MD Primary Care Provider Unavail Ayan Pulliam MD Primary Care Provider [phone] Victor Manuel Gonzales MD Primary Care Provider Unava jaxson Encounter Details Date Type Department Care Team Description 01/22/2013 Pt. Non Urgent Medic al Question Adult Medicine [address] [address] Daniel Mota MD Social History Tobacco Use [...] on filedocumented in this encounter Care Teams Block Handler Relationship Specialty Start Date End Date Daniel Mota MD PCP - General 07/27/1994 12/22/15 Victor Manuel Gonzales MD PCP - General Internal Medicine 07/22/16 10/19/16 Daniel Mota MD PCP - General Internal Medicine 10/20/16 09/23/19 Ayan Clayton MD [address] [place], [place] [phone] PCP - General Internal Medicine 09/24/19 Victor Manuel Gonzales MD PCP - General 12/23/15 07/21/16 documented as of this encounter
--- OUTSIDE RECORDS SUMMARY | 2024-07-25 09:33 | XMS_ITS | Encounter Summary ---
Author Organization [facility] Address [address] [place] [address] Care Team Providers Care Assistant Service Manager Name Role Phone Ayan Clayton MD Primary Care Provider [phone] Reason for Visit * Reason Onset Date Comments Pre Op Visit 08/24/2023 Encounter Details Date Type Department Care Team Description 08/24/2023 Telephone Adult Medicine - [place] [address] [place] [address] Ayan Clayton MD [address] [place] [address] Pre Op Visit Social History Tobacco Use [...] Elisabeth Del Angel Patient Services / Pre-Op Pharmacovigilance Specialist Extension - [id number] documented in this encounter Plan of Treatment Not on file documented as of this encounter Visit Diagnoses Not on filedocumented in this encounter Care Teams Assistant Service Manager Relationship Specialty Start Date End Date Ayan Clayton MD [address] [place] [address] PCP - General Internal Medicine 09/24/19 documented as of this encounter
--- OUTSIDE RECORDS SUMMARY | 2024-07-25 09:33 | XMS_ITS | Encounter Summary ---
Author Organization [facility] Address [address] [place] [address] Care Team Providers Care Banquet Set Up Person Name Role Phone Daniel Mota MD Primary Care Provider Unavail Victor Manuel Yu MD Primary Care Provider Unava ilable Daniel Mota MD Primary Care Provider Unavail Ayan Pulliam MD Primary Care Provider [phone] Victor Manuel Gonzales MD Primary Care Provider Unava ilmaximino Encounter Details Date Type Department Care Team Description 06/25/2013 Pharmacy Consultant Report Medical Records [address] [place] [address] Swathi Eagle MD Social History Tobacco Use Types Packs/Day [...] on filedocumented in this encounter Care Teams Banquet Set Up Person Relationship Specialty Start Date End Date Daniel Mota MD PCP - General 07/27/1994 12/22/15 Victor Manuel Gonzales MD PCP - General Internal Medicine 07/22/16 10/19/16 Daniel Mota MD PCP - General Internal Medicine 10/20/16 09/23/19 Ayan Clayton MD [address] [place] [address] PCP - General Internal Medicine 09/24/19 Victor Manuel Gonzales MD PCP - General 12/23/15 07/21/16 documented as of this encounter
--- OUTSIDE RECORDS SUMMARY | 2024-07-25 09:33 | XMS_ITS | Encounter Summary ---
Author Organization [facility] Address [address] [place] [address] Care Team Providers Care Public Bath Attendant Name Role Phone Daniel Mota MD Primary Care Provider Unavail able Ayan Clayton MD Primary Care Provider [phone] Encounter Details Date Type Department Care Team Description 11/09/2018 Hospital Medical Records [address] [place] [address] Torrey Moreno MD [address] [place] [address] DRIVE [address] [place] [address] Social History Tobacco Use Types Packs/Day Years [...] filedocumented in this encounter Care Teams Public Bath Attendant Relationship Specialty Start Date End Date Daniel Mota MD PCP - General Internal Medicine 10/20/16 09/23/19 Ayan Clayton MD [address] [place], [place] [phone] PCP - General Internal Medicine 09/24/19 documented as of this encounter
--- OUTSIDE RECORDS SUMMARY | 2024-07-25 09:33 | XMS_ITS | Encounter Summary ---
Author Organization [facility] Address [address] [place] [address] Care Team Providers Care Diamond Driller Name Role Phone Ayan Clayton MD Primary Care Provider [phone] Encounter Details Date Type Department Care Team Description 04/19/2022 Local Operator Report Medical Records [address] [place] [address] Skylar Hanna DPM Social History Tobacco Use [...] on filedocumented in this encounter Care Teams Diamond Driller Relationship Specialty Start Date End Date Ayan Clayton MD [address] [place] [address] PCP - General Internal Medicine 09/24/19 documented as of this encounter
--- OUTSIDE RECORDS SUMMARY | 2024-07-25 09:33 | XMS_ITS | Encounter Summary ---
Author Organization [facility] Address [address] [place] [address] Care Team Providers Care Service Observer Name Role Phone Daniel Mota MD Primary Care Provider Unavail able Ayan Clayton MD Primary Care Provider [phone] Encounter Details Date Type Department Care Team Description 11/20/2018 Hospital Medical Records [address] Social History Tobacco Use Types Packs/Day [...] filedocumented in this encounter Care Teams Service Observer Relationship Specialty Start Date End Date Daniel Mota MD PCP - General Internal Medicine 10/20/16 09/23/19 Ayan Clayton MD [address] [place] [address] PCP - General Internal Medicine 09/24/19 documented as of this encounter
--- OUTSIDE RECORDS SUMMARY | 2024-07-25 09:33 | XMS_ITS | Encounter Summary ---
Author Organization [facility] Address [address] [place] [address] Care Team Providers Care Counter Former Name Role Phone Daniel Mota MD Primary Care Provider [facility] Ayan Pulliam MD Primary Care Provider [phone] Encounter Details Date Type Department Care Team Description 02/15/2019 Orders Only General Surgery - [place] 175 [facility] [address] [place] [address] Torrey Moreno MD [address] [place] [address] DR[address] [place], [place] [phone] Other complications of other bariatric procedure Social [...] procedure documented in this encounter Care Teams Counter Former Relationship Specialty Start Date End Date Daniel Mota MD PCP - General Internal Medicine 10/20/16 09/23/19 Ayan Clayton MD [address] [place] [address] PCP - General Internal Medicine 09/24/19 documented as of this encounter
--- OUTSIDE RECORDS SUMMARY | 2024-07-25 09:33 | XMS_ITS | Data Portability ---
Author Organization [facility], Main Office Address [address], [address] [place] [address] Care Team Providers Care Personnel Worker Name Role Phone YARITZA PERDOMO - 2ND FLOOR OTHER GARETT ALFARO Primary Care Provider [phone] Assessment Encounter Date Assessment Date Assessment LastModified by Organization Details LastModified Time 05/21/2024 05/21/2024 45 minutes spent on coordination of discharge. Not available 05/21/2024 10:30:03 Plan of Treatment Reminders Order Date Submit Date Provider Last Modified By Organization Details Last Modified Time Details Appointments None recorded. Lab None recorded. Referral None recorded. Procedures None recorded. Surgeries None recorded. Imaging None recorded. Medication Orders morphine ER 15 mg tablet,ext ended release 2024 025 [facility] , [address] [place] [address], [address], 22:13:52 oxycodone 10 mg tablet 2024 025 [facility] , [address] [place] [address], [address], 5 22:13:53 Patient TargetsNo targets recorded. Patient InstructionsNo instructions recorded. Reason for Referral None Reported. Problems Name Problem SNOMED Code Status Onset Date Resolution Date Notes Provider Name and Address Organization Details Recorded Time Wound of skin 165002024 Active 2024 right hip surgical wound MICHAEL ADAIR, KALE [address], [address], [place], [address], [email or web address] 14:01:04 Total replacement of right hip joint Active 2024 MICHAEL ADAIR NP [address], [address], [place], [address], [facility] 5 14:02:07 Hyperlipide tayler 11384618 Active 2024 MICHAEL ADAIR NP [address], [address], [place], [address], [facility] 5 14:07:43 Gastroesoph ageal reflux disease without esophagitis 403433299 Active 2024 MICHAEL ADAIR NP [address], [address], [place], [address], [facility] 5 14:07:53 Chronic obstructive pulmonary disease 99868927 Active 2024 MICHAEL ADAIR NP [address], [address], [place], [address], [facility] 5 14:08:17 Chronic pain 80010987 Active 2024 MICHAEL ADAIR NP [address], [address], [place], [address], [facility] 5 14:08:31 Mixed anxiety and depressive disorder 526548446 Active 2024 MICHAEL ADAIR NP [address], [address], [place], [address], [facility] 5 14:08:38 Osteoarthri tis 451300705 Active 2024 MICHAEL ADAIR NP [address], [address], [place], [address], [facility] 5 14:12:21 Problem Notes None recorded. Medical Equipment None Reported. Allergies Allergen ID Allergen Name Allergen Category Reaction Reaction Severity Criticality Documentation Date Start Date Code Code System Note Provider Name and Address Organization Details Recorded Time 85195 Substance with sulfonami de structure and antibacte rial mechanism of action (substanc e) medicatio n Not available Not available [facility] 05/04/20242005 9056799 4097 SNOMED swell ing and diffi culty breat devonte Herrmann MD [address], [address], [place], [address], [facility] 5 18:13:48 10851 metformin medicatio n diarrhea Not available Not available 05/04/20242016 6809 RxNorm Vida Herrmann MD [address], [address], [place], [address], [facility] 5 18:12:37 33520 semagluti de medicatio n Not available Not available Not available 05/04/2024 RxNorm MICHAEL ADAIR NP [address], [address], [place], [address], [facility] 5 14:09:42 Medications Name Sig Start Date Stop Date [...] mm[Hg] 80 mm[Hg] MICHAEL ADAIR NP [address], [address], [place], [address], [facility] 5 14:00:15 Date Recorded Body weight Body mass index (BMI) Body height Heart rate Respiratory rate Body temperature Oxygen saturation Oxygen saturation in Arterial blood by Pulse oximetry Systolic blood pressure Diastolic blood pressure Provider Name and Address Organization Details Last Updated DateTime 5 25418.0 3 g 25.8 kg/m2 149.86 cm 83 /min 18 /min 98.5 [degF] 96 % 96 % 161 mm[Hg] 68 mm[Hg] Vida Herrmann MD [address], [address], [place], [address], [facility] 5 19:40:07 Date Recorded Body height Body mass index (BMI) Body weight Heart rate Respiratory rate Body temperature Oxygen saturation Oxygen saturation in Arterial blood by Pulse oximetry Systolic blood pressure Diastolic blood pressure Provider Name and Address Organization Details Last Updated DateTime 149.86 cm 25.7 kg/m2 59226.2 3 g 72 /min 18 /min 97.8 [degF] 96 % 96 % 142 mm[Hg] 78 mm[Hg] Sanaz Armenta NP [address], [facility] [address], [place], [address], [facility] 5 12:05:39 Date Recorded Body height Heart rate Respiratory rate Body temperature Oxygen saturation Oxygen saturation in Arterial blood by Pulse oximetry Systolic blood pressure Diastolic blood pressure Provider Name and Address Organization Details Last Updated DateTime 5 149.86 cm 60 /min 18 /min 97.5 [degF] 97 % 97 % 126 mm[Hg] 74 mm[Hg] RAHEEM ALMAGUER NP [address], [address], [place], [address], [facility] 5 10:27:38 Social History Question Answer Notes LastModified by Organizat ion Details LastModified Time Tobacco Smoking Status Former Smoker 8315-0731, 3 ppd Vida Herrmann MD [address], [facility] [address], [place], [address], [facility] 05/06/2024 22:16:45 Do You Have An [...] Do You Have A Medical Power Of Electronic Warfare Technician? Yes Information not available 05/06/2024 What Was [...] Recorded Time Tdap 2 completed Theresa Parveen [facility] 05/08/2024 16:05:46 Tdap 3 completed [facility] 05/08/2024 16:05:54 Td(adult) unspecified formulation 3 completed [facility] 05/08/2024 16:06:09 Pneumococcal conjugate PCV 13 1 completed [facility] 05/08/2024 16:06:29 pneumococcal polysaccharide PPV23 5 completed Theresa Parveen [facility] 05/08/2024 16:06:45 influenza, unspecified formulation 3 completed Theresa Parveen [facility] 05/08/2024 16:07:03 influenza, unspecified formulation 4 completed Theresa Parveen [facility] 05/08/2024 16:07:17 SARS-COV-2 (COVID-19) vaccine, UNSPECIFIED 1 completed [facility] 05/08/2024 16:07:38 SARS-COV-2 (COVID-19) vaccine, UNSPECIFIED 1 completed Theresa Saini [facility] 05/08/2024 16:07:47 SARS-COV-2 (COVID-19) vaccine, UNSPECIFIED 2 completed Theresa Saini [facility] 05/08/2024 16:07:59 SARS-COV-2 (COVID-19) vaccine, UNSPECIFIED 2 completed Theresa [facility] 05/08/2024 16:08:09 SARS-COV-2 (COVID-19) vaccine, UNSPECIFIED 3 completed Theresa [facility] 05/08/2024 16:08:20 zoster, unspecified formulation 9 completed Theresa [facility] 05/08/2024 16:08:38 zoster, unspecified formulation 0 completed Theresa [facility] 05/08/2024 16:08:46 Past Encounters Encounter ID Performer Location Encounter Start Date Encounter Closed Date Diagnosis/Indication Diagnosis SNOMED-CT Code Diagnosis ICD10 Code Diagnosis Note [id number] MICHAEL ADAIR NP [address] [address] 05/04/2024 12:51:16 05/07/2024 13:49:18 Wound of skin 122340014 T14.8XXA monitor surgical incision for any signs of infectionc hange dressing as appropriat efollowup with ortho as planned Chronic pain 82004674 G8 9.29 lido patchtizan adine 4 mg prndiclofe nac gel bidms contin 15 mg hsoxycodon e 10 mg tid Chronic ob structive pulmonary disease 41402330 J44.9 combivent prnzyrtec 10 mg dailymonit or resp status Gastroesop hageal reflux disease without esophagitis 753922437 K21.9 omeprazole 20 mg dailybicar b 650 mg bid Hyperlipidemia 69590536 E78.5 atrovastat in 20 mg daily Mixed anxi ety and depressive disorder 830797941 F41.8 cymbalta 30 mg dailypsych prn Osteoarthritis 919813075 M19.90 lido patchtizan adine 4 mg prndiclofe nac gel bidms contin 15 mg hsoxycodon e 10 mg tid [id number] Vida Herrmann MD [facility] [address] [place] [address] 05/06/2024 18:09:41 05/16/2024 14:57:48 Chronic pain 88198561 G89.29 Meds as above.Will wean off prn oxy prior to d/c. Osteoarthritis 586208957 M15.0 Z96.643 S/P LTHR in 08/2023 and [...] as planned. Chronic ob structive pulmonary disease 71744069 J43.8 At baseline.C ontinue cetirizine 10 mg qd and combivent 2 puffs q 4 hrs prn.Monito r resp status Gastroesop hageal reflux disease without esophagitis 121794760 K21.9 No current sxs.Contin ue omeprazole 20 mg qd and sodium bicarb 650 mg BIDMonitor GI sxs. Hyperlipidemia 17154664 E78.49 Continue atorvastat in 20 mg qdMonitor labs as outpt. Mixed anxi ety and depressive disorder 930137859 F41.8 Mood good tonight.Co ntinue cymbalta 30 mg qdMonitor mood.Psych consult prn [id number] Sanaz Armenta NP [facility] [address] [place] [address] 05/09/2024 12:04:48 05/10/2024 13:24:20 Osteoarthritis 292568403 M15.0 Z96.643 S/P LTHR in 08/2023 and RTHR on 04/30/24cont tizanidine 4 mg BIDlidocai ne patch qd for 12 hrsdiclofe nac gel BIDMSConti n 15 mg qhsoxycodo ne 10 mg TID and 10 mg q 4 hrs prnAPAP 650 mg q 6 hrs prn.Needs PT/OT for strengthen ing, balance, gait training, safety and function.C ontinue fall precaution s.Monitor for safety.Zee itor incision.F /U with ortho as planned. Chronic pain 45737644 G8 9.29 Meds as above.Will wean off prn oxy prior to d/c. Chronic ob structive pulmonary disease 31819159 J43.8 Continueco mbivent prnzyrtec 10 mg dailymonit or resp status Gastroesop hageal reflux disease without esophagitis 576677645 K21.9 contomepra zole 20 mg dailybicar b 650 mg bid Hyperlipidemia 41077744 E78.5 contatorva statin 20 mg daily Mixed anxi ety and depressive disorder 925514643 F41.8 contcymbal ta 30 mg dailypsych prn Wound of skin 937614023 T14.8XXA sp right hip arthroplas ty with dr annabelle mobley surgical incision for any signs of infectionc hange dressing as appropriat efollowup with ortho as planned Infection caused by Norovirus 020632311 A08.11 pt with norovirus positive stool testsympto ms with nausea and vomiting started on 05/03 progressed with diarrhea and now on 05/09 lessening. health dept updated as requested contimmodi um prnzofran 4 mg po q 6 hours prnencoura ge po fluidslabs weekly and prnisolati on precaution s as facility protocolmo nitor vs qd and prn [id number] Sanaz Armenta NP [address] [address] 05/16/2024 14:46:35 05/17/2024 16:20:21 Infection caused by Norovirus 729510141 A08.11 resolved Wound of skin 088947831 T14.8XXA sp right hip arthroplas ty with dr annabelle mobley surgical incision for any signs of infectionS he saw Ortho today on 05/16 today, with rec:therap y with glut, core, quad strengthen ing, gait training, and posterior precaution sfu with 4 weeks. Osteoarthritis 172442553 M15.0 Z96.643 S/P LTHR in 08/2023 and [...] /U with ortho as planned. Chronic pain 32815878 G8 9.29 Meds as above.Will wean off prn oxy prior to d/c. [id number] RAHEEM ALMAGUER NP [address] [address] 05/21/2024 10:26:56 05/23/2024 11:51:17 Osteoarthritis 613967494 M15.0 Z96.643 S/P R THR on 04/30/24 by robert Yeager. well.Has worked with rehab, meeting goals for d/c home today with support of services.H ad follow up with Ortho 05/16 - no concerns, follow up requested in 4 wks.Contin ue meds for pain mgmt - tizanidine , MSER, oxycodone, lidoderm patch, diclofenac gel, and APAP.Shanice nue to monitor VS, pain, incision, CSM upon d/c home. Chronic pain 75541512 G8 9.29 Meds as above.Enco uraged to wean off prn oxycodone upon d/c home. Currently using prn doses about 2xd Chronic ob structive pulmonary disease 21124936 J43.8 At baseline.C ontinue cetirizine 10 mg qd and combivent 2 puffs q 4 hrs prn.Monito r resp status as outpt. Gastroesop hageal reflux disease without esophagitis 839809940 K21.9 No current sxs.Contin ue omeprazole 20 mg qd and sodium bicarb 650 mg BIDMonitor GI sxs. Hyperlipidemia 26492646 E78.49 Continue atorvastat in 20 mg qdMonitor labs as outpt. Mixed anxi ety and depressive disorder 841287714 F41.8 Continue cymbalta 30 mg qdMonitor mood as outpt.Psyc h consult prn Health Concerns Section Related Observation LastModified by Organization Detai ls LastModified Time None Recorded Concern Status LastModified by Organization Details LastModified Time None Recorded Advance Directives Directive Y: Payers Encounter Date Sequence Insurance Name Policy Number Policy Toribio Covered Member ID Toribio Member ID Guarantor Name 05/04/2024 1 [facility] - DOS ON OR AFTER 2022 - MEDICARE [place]VANTAGE [place]/ADV ANTAGE - PPO) Yanet Fernando [id number] Yanet Fernando 05/06/2024 1 [facility] - DOS ON OR AFTER 2022 - [place]V ANTAGE - PPO) Yanet Fernando [id number] Yanet Fernando 05/09/2024 1 [facility] - DOS ON OR AFTER 2022 - [place]V ANTAGE - PPO) Yanet Fernando [id number] Yanet Fernando 05/16/2024 1 [employer] - DOS ON OR AFTER 2022 - [place]/ADV ANTAGE - PPO) Yanet Fernando [id number] Yanet Fernando 05/21/2024 1 [facility] - DOS ON OR AFTER 2022 - [place]/ADV ANTAGE - PPO) Yanet Fernando [id number] Yanet Fernando Notes Date Note Type Note Provider Name and Address Organization Details Recorded Time 05/04/2024 text/html seen today for initial intake visit-68 yof admitted to for rehab after having a right total hip replacement, she tolerated the surgery well with no complications. CAOx3 sitting up in bed, good cms to right leg, dressing small staining noted MICHAEL ADAIR, KALE [address], [address], [place], [address], [facility] - [email or web address] 05/04/2024 14:18:25 05/06/2024 text/html This is a [...] Covid, anxiety/depression, and HLD. Vida Herrmann MD [address] [place] [address], [address], [place], [address], [email or web address] 05/16/2024 00:16:51 05/09/2024 text/html This is a [...] here on 05/03. Sanaz Armenta, KALE [address], [address], [place], [address], [email or web address] 05/09/2024 13:44:40 05/16/2024 text/html Yanet is a 68 yo [...] up using a walker and shows this HIGH REACH OPERATOR her right hip with steri strips intact [...] here on 05/03. Sanaz Armenta, KALE [address], [address], [place], [address], [facility] - [email or web address] 05/16/2024 15:28:40 05/21/2024 text/html Yanet is seen today for discharge.She is returning home today with the support of family and services. She is is a 68 yo woman, admitted to [facility] 05/03/24 from [facility] for continued care and rehab after a [...] anxiety/depression, and HLD. RAHEEM ALMAGUER NP [address], [address], [place], [address], [facility] - [email or web address] 05/21/2024 10:54:45 OBGyn Episode No OBEpisode recorded.
--- OUTSIDE RECORDS SUMMARY | 2024-07-25 09:33 | XMS_ITS | Encounter Summary ---
Author Organization [facility] Address [address] [place] [address] Care Team Providers Care Stand Up Comedian Name Role Phone Ayan Clayton MD Primary Care Provider [phone] Encounter Details Date Type Department Care Team Description 04/26/2022 Story Reader Report Medical Records [address] [place] [address] Adarsh Rider, Social History Tobacco Use Types [...] on filedocumented in this encounter Care Teams Stand Up Comedian Relationship Specialty Start Date End Date Ayan Clayton MD [address] [place] [address] PCP - General Internal Medicine 09/24/19 documented as of this encounter
--- OUTSIDE RECORDS SUMMARY | 2024-07-25 09:33 | XMS_ITS | Encounter Summary ---
Author Organization [facility] Address [address] [place] [address] Care Team Providers Care Heavy Equipment Supervisor Name Role Phone Daniel Mota MD Primary Care Provider Unavail able Ayan Clayton MD Primary Care Provider [phone] Encounter Details Date Type Department Care Team Description 02/05/2019 Telephone General Surgery - [place] [address] [facility] [address] [place] [address] Torrey Moreno MD [address] [place] [address] [address] [place], [place] [id number] Social History Tobacco Use Types Packs/Day Years [...] on filedocumented in this encounter Care Teams Heavy Equipment Supervisor Relationship Specialty Start Date End Date Daniel Mota MD PCP - General Internal Medicine 10/20/16 09/23/19 Ayan Clayton MD [address] [place] [id number] PCP - General Internal Medicine 09/24/19 documented as of this encounter
--- OUTSIDE RECORDS SUMMARY | 2024-07-25 09:33 | XMS_ITS | Encounter Summary ---
Author Organization [facility] Address [address] [place] [address] Care Team Providers Care Locomotive Repairer Diesel Name Role Phone Ayan Clayton MD Primary Care Provider [phone] Encounter Details Date Type Department Care Team Description 11/28/2023 Vice President Regulatory Report Medical Records [address] [place] [address] [id number] Social History Tobacco Use Types Packs/Day Years [...] on filedocumented in this encounter Care Teams Locomotive Repairer Diesel Relationship Specialty Start Date End Date Ayan Clayton MD [address] [place], [place] [id number] PCP - General Internal Medicine 09/24/19 documented as of this encounter
--- OUTSIDE RECORDS SUMMARY | 2024-07-25 09:33 | XMS_ITS | Encounter Summary ---
Author Organization [facility] Address [address] [place] [address] Care Team Providers Care Gas Station Supervisor Name Role Phone Daniel Mota MD Primary Care Provider Ayan Rubalcava MD Primary Care Provider [phone] Encounter Details Date Type Department Care Team Description 06/11/2018 Orders Only General Surgery - [place] [address] [facility] [address] [place] [address] Torrey Moreno MD [address] [place] [address] [address] [place], [place] [phone] Morbid obesity with BMI of 50.0-59.9, adult [...] (HCC) documented in this encounter Care Teams Gas Station Supervisor Relationship Specialty Start Date End Date Daniel Mota MD PCP - General Internal Medicine 10/20/16 09/23/19 Ayan Clayton MD [address] [place] [address] PCP - General Internal Medicine 09/24/19 documented as of this encounter
--- OUTSIDE RECORDS SUMMARY | 2024-07-25 09:33 | XMS_ITS | Encounter Summary ---
Author Organization [facility] Address [address] [place] [address] Care Team Providers Care Forgeman Helper Name Role Phone Daniel Mota MD Primary Care Provider Ayan Rubalcava MD Primary Care Provider [phone] Reason for Visit * Reason Comments E-prescribe Rx Request Encounter Details Date Type Department Care Team Description 10/12/2018 Refill Pulmonology - [place] [address] [facility] [address] [place] [address] Carlos Hurley MD [address] [facility] [address] [place] [address] E-prescribe Rx Request Social History Tobacco Use [...] (chronic) documented in this encounter Care Teams Forgeman Helper Relationship Specialty Start Date End Date Daniel Mota MD PCP - General Internal Medicine 10/20/16 09/23/19 Ayan Clayton MD [address] [place] [address] PCP - General Internal Medicine 09/24/19 documented as of this encounter
--- OUTSIDE RECORDS SUMMARY | 2024-07-25 09:34 | XMS_ITS | Patient Health Record ---
Author Organization [facility] Address [address] [facility] [address] [facility] [place] [address] Care Team Providers Care Campaign Specialist Name Role Phone Ayan Clayton Primary Care [...] Problem Status W/U Status Risk Notes Problem 66323227 Other chronic pain (G89.29) Active confirmed Problem 968995547 Other hammer toe(s) (acquired), right foot (M20.41) Active confirmed Problem 48762801 Other hammer toe(s) (acquired), left foot (M20.42) Active confirmed Problem 44608749 Type 2 diabetes mellitus with diabetic polyneuropathy , without long-term current use of insulin (E11.42) Active confirmed Problem 2778738871215456 Arthritis of ankle, right (M19.071) Active confirmed Problem 938969617 Ankle arthritis (M19.079) Active confirmed Problem 7438920373287076 Arthritis of ankle, left (M19.072) Active confirmed [...]
--- OUTSIDE RECORDS SUMMARY | 2024-07-25 09:34 | XMS_ITS | Encounter Summary ---
Author Organization [facility] Address [address] [place] [address] Care Team Providers Care Customs Examiner Name Role Phone Ayan Clayton MD Primary Care Provider [phone] Reason for Visit * Reason Comments E-prescribe Rx Request Encounter Details Date Type Department Care Team Description [facility] [place] [address] [facility] [address] [place] [address] Torrey Moreno MD [address] [place] [address] [address] [place] [address] E-prescribe Rx Request Social History Tobacco Use [...] gastrectomy documented in this encounter Care Teams Customs Examiner Relationship Specialty Start Date End Date Ayan Clayton MD [address] [place] [id number] PCP - General Internal Medicine 09/24/19 documented as of this encounter
--- OUTSIDE RECORDS SUMMARY | 2024-07-25 09:34 | XMS_ITS | Encounter Summary ---
Author Organization [facility] Address [address] [place] [address] Care Team Providers Care Fiscal Services Director Name Role Phone Daniel Mota MD Primary Care Provider Unavail able Ayan Clayton MD Primary Care Provider [phone] Encounter Details Date Type Department Care Team Description 04/15/2019 Hospital Medical Records [address] [place] [address] Ta Garcia MD Social History Tobacco Use [...] on filedocumented in this encounter Care Teams Fiscal Services Director Relationship Specialty Start Date End Date Daniel Mota MD PCP - General Internal Medicine 10/20/16 09/23/19 Ayan Clayton MD [address] [place] [id number] PCP - General Internal Medicine 09/24/19 documented as of this encounter
--- OUTSIDE RECORDS SUMMARY | 2024-07-25 09:34 | XMS_ITS | Encounter Summary ---
Author Organization [facility] Address [address] [place] [address] Care Team Providers Care Patient Care Assistant Name Role Phone Ayan Clayton MD Primary Care Provider [phone] Reason for Visit * Reason Onset Date Comments Information Needed 10/10/2019 Prior Authorization 10/10/2019 Encounter Details Date Type Department Care Team Description 10/10/2019 Telephone Pulmonology - [place] [address] [facility] [address] [place] [address] Carlos Hurley MD [address] [facility] [address] [place] [address] Information Needed; Prior Authorization Social [...] correct pool. * Telephone Encounter - Suzanna Behdoyel - 10/10/2019 9:49 AM EDT Miranda called today needs additional clinical information before the prior auth can be done. Please contact Miranda. documented in this encounter Plan of Treatment Not on file documented as of this encounter Visit Diagnoses Not on filedocumented in this encounter Care Teams Patient Care Assistant Relationship Specialty Start Date End Date Ayan Clayton MD [address] [place] [address] PCP - General Internal Medicine 09/24/19 documented as of this encounter
--- OUTSIDE RECORDS SUMMARY | 2024-07-25 09:34 | XMS_ITS | Encounter Summary ---
Author Organization [facility] Address [address] [place] [address] Care Team Providers Care Equipment Coordinator Name Role Phone Daniel Mota MD Primary Care Provider Ayan Rubalcava MD Primary Care Provider [phone] Reason for Visit * Reason Comments E-prescribe Rx Request Encounter Details Date Type Department Care Team Description 09/11/2019 Refill Pulmonology - [place] 175 [facility] [address] [place] [phone] Carlos Hurley MD [address] [facility] [address] [place] [phone] E-prescribe Rx Request Social History Tobacco Use [...] asthma documented in this encounter Care Teams Equipment Coordinator Relationship Specialty Start Date End Date Daniel Mota MD PCP - General Internal Medicine 10/20/16 09/23/19 Ayan Clayton MD [address] [place] [address] PCP - General Internal Medicine 09/24/19 documented as of this encounter
--- OUTSIDE RECORDS SUMMARY | 2024-07-25 09:34 | XMS_ITS | Encounter Summary ---
Author Organization [facility] Address [address] [place] [address] Care Team Providers Care Airway Traffic Controller Name Role Phone Daniel Mota MD Primary Care Provider Unavail able Ayan Clayton MD Primary Care Provider Encounter Details Date Type Department Care Team Description 04/23/2019 Belt Splicer Report Medical Records [address] [place] [address] Bharath Block PA-C Social History Tobacco Use [...] on filedocumented in this encounter Care Teams Airway Traffic Controller Relationship Specialty Start Date End Date Daniel Mota MD PCP - General Internal Medicine 10/20/16 09/23/19 Ayan Clayton MD [address] [place], [place] [phone] PCP - General Internal Medicine 09/24/19 documented as of this encounter
--- OUTSIDE RECORDS SUMMARY | 2024-07-25 09:34 | XMS_ITS | Encounter Summary ---
Author Organization [facility] Address [address] [place] [address] Care Team Providers Care Assistant Plant Manager Name Role Phone Daniel Mota MD Primary Care Provider [facility] Ayan Clayton MD Primary Care Provider [phone] Reason for Visit * Reason Comments E-prescribe Rx Request Encounter Details Date Type Department Care Team Description 04/10/2019 Refill General Surgery - [place] 175 [facility] [address] [place] [phone] Torrey Moreno MD [address] [place] [address] [address] [place] [address] E-prescribe Rx Request Social History Tobacco Use [...] filedocumented in this encounter Care Teams Assistant Plant Manager Relationship Specialty Start Date End Date Daniel Mota MD PCP - General Internal Medicine 10/20/16 09/23/19 Ayan Clayton MD [address] [place] [address] PCP - General Internal Medicine 09/24/19 documented as of this encounter
--- OUTSIDE RECORDS SUMMARY | 2024-07-25 09:34 | XMS_ITS | Encounter Summary ---
Author Organization [facility] Address [address] [place] [address] Care Team Providers Care Commutator Repairer Name Role Phone Ayan Clayton MD Primary Care Provider [phone] Reason for Visit * Reason Onset Date Comments Faxed Order 11/19/2019 allied Encounter Details Date Type Department Care Team Description 11/19/2019 Telephone Adult Medicine [facility] [address] [place], [place] [phone] Ayan Clayton MD [address] [place] [phone] Faxed Order (allied) Social History Tobacco Use [...] Miscellaneous Notes * Telephone Encounter - Skylar Carmnoa - 11/19/2019 10:04 AM EDT Physician order dated 11/09/2019 to be signed and faxed back documented in this encounter Plan of Treatment Not on file documented as of this encounter Visit Diagnoses Not on filedocumented in this encounter Care Teams Commutator Repairer Relationship Specialty Start Date End Date Ayan Clayton MD [address] [place] [address] PCP - General Internal Medicine 09/24/19 documented as of this encounter
--- OUTSIDE RECORDS SUMMARY | 2024-07-25 09:34 | XMS_ITS | Encounter Summary ---
Author Organization [facility] Address [address] [place] [address] Care Team Providers Care Security Coordinator Name Role Phone Daniel Mota MD Primary Care Provider Unavail Victor Manuel Yu MD Primary Care Provider Unava ilable Daniel Mota MD Primary Care Provider Unavail Ayan Pulliam MD Primary Care Provider [phone] Victor Manuel Gonzales MD Primary Care Provider Unava ilable Reason for Visit * Reason Onset Date Comments Sinus Problem 07/30/2014 Encounter Details Date Type Department Care Team Description 07/30/2014 Telephone Adult Medicine [address] [address] Daniel Mota MD Sinus Problem Social History [...] filedocumented in this encounter Care Teams Security Coordinator Relationship Specialty Start Date End Date Daniel Mota MD PCP - General 07/27/1994 12/22/15 Victor Manuel Gonzales MD PCP - General Internal Medicine 07/22/16 10/19/16 Daniel Mota MD PCP - General Internal Medicine 10/20/16 09/23/19 Ayan Clayton MD [address] [place], [place] [phone] PCP - General Internal Medicine 09/24/19 Victor Manuel Gonzales MD PCP - General 12/23/15 07/21/16 documented as of this encounter
--- OUTSIDE RECORDS SUMMARY | 2024-07-25 09:34 | XMS_ITS | Encounter Summary ---
Author Organization [facility] Address [address] [place] [address] Care Team Providers Care Sales Order Processor Name Role Phone Daniel Mota MD Primary Care Provider [facility] Ayan Pulliam MD Primary Care Provider [phone] Reason for Visit * Reason Onset Date Comments Prior Authorization 05/21/2019 Encounter Details Date Type Department Care Team Description 05/21/2019 Telephone Adult Medicine [address] [address] Daniel Mota MD Prior Authorization Social History [...] 10:33 AM EDT Spoke with Ashely romero [facility] who stated that p.a. For the jeronimo is through [facility]. Shestated that they faxed it over to them. Called and spoke with Eladio who stated that the jeronimo and its supplies were approved . Approved from 05/31/2019 until 05/30/2020 Authorization number # [id number] * Telephone Encounter - Susan Gutierrez M.A. [...] What Pharmacy did the fax come from: [facility] Pharmacy fax #: [phone] Third [employer] Party Information from fax: What Prescription Plan does the patient have? BIN/PCN if applicable: Cardholder ID: Person Code: Relationship Code: Help desk phone: [phone] documented in this encounter Plan of Treatment Not on file documented as of this encounter Visit Diagnoses Not on filedocumented in this encounter Care Teams Sales Order Processor Relationship Specialty Start Date End Date Daniel Mota MD PCP - General Internal Medicine 10/20/16 09/23/19 Ayan Clayton MD [address] [place] [address] PCP - General Internal Medicine 09/24/19 documented as of this encounter
--- OUTSIDE RECORDS SUMMARY | 2024-07-25 09:34 | XMS_ITS | Encounter Summary ---
Author Organization [facility] Address [address] [place] [address] Care Team Providers Care Case Loader Operator Name Role Phone Daniel Mota MD Primary Care Provider Unavail Victor Manuel Yu MD Primary Care Provider Unava ilable Daniel Mota MD Primary Care Provider Unavail Ayan Pulliam MD Primary Care Provider [phone] Victor Manuel Gonzales MD Primary Care Provider Candida puri Encounter Details Date Type Department Care Team Description 01/26/2015 [facility] Medical Records [address] [place], [place] [phone] [place] [address] Social History Tobacco Use Types Packs/Day Years [...] filedocumented in this encounter Care Teams Case Loader Operator Relationship Specialty Start Date End Date Daniel Mota MD PCP - General 07/27/1994 12/22/15 Victor Manuel Gonzales MD PCP - General Internal Medicine 07/22/16 10/19/16 Daniel Mota MD PCP - General Internal Medicine 10/20/16 09/23/19 Ayan Clayton MD [address] [place] [address] PCP - General Internal Medicine 09/24/19 Victor Manuel Gonzales MD PCP - General 12/23/15 07/21/16 documented as of this encounter
--- OUTSIDE RECORDS SUMMARY | 2024-07-25 09:34 | XMS_ITS | Encounter Summary ---
Author Organization [facility] Address [address] [place] [address] Care Team Providers Care Thermo Cementing Folder Operator Name Role Phone Daniel Mota MD Primary Care Provider [facility] Ayan Pulliam MD Primary Care Provider [phone] Reason for Visit * Reason Onset Date Comments refill request 05/13/2019 Encounter Details Date Type Department Care Team Description 05/13/2019 Refill Adult [facility] [address] [place] [address] Daniel Mota MD refill request Social History Tobacco Use Types [...] * Telephone Encounter - Marilyn Juan - 05/13/2019 1:38 PM EST Medication last filled 04/04/2019 Young- 04/04/2019 Next- 10/03/[address] Rose * Telephone Encounter - Liyah Myers - 05/13/2019 10:45 AM EST Patient would like script to be: E-PRESCRIBED/FAXED TO PHARMACY WHEN WAS THE PATIENT'S LAST APPOINTMENT IN ADULT MEDICINE? 04.04.19 WHEN WAS THE LAST TIME THE PATIENT SAW THEIR PCP? Same as above Does patient have an upcoming appointment? Yes 10.03.19 (THE MEDICATION REQUESTED IS ON THE MED LIST ABOVE) All of the medications requested were on the CURRENT MEDS list Did you check the Pharmacy information above?: YES Patient wants: 30 -day supply will also need prior auth Is this a mail order prescription request ? NO If the refill is from a FAXED refill request what is the RX # listed on the fax? N/A Patients current insurance carrier is: Payor: [employer] M[employer] / Plan: [facility] / Product Type: HMO [id number] documented in this encounter Plan of Treatment [...] asthma documented in this encounter Care Teams Thermo Cementing Folder Operator Relationship Specialty Start Date End Date Daniel Mota MD PCP - General Internal Medicine 10/20/16 09/23/19 Ayan Clayton MD [address] [place] [address] PCP - General Internal Medicine 09/24/19 documented as of this encounter
--- OUTSIDE RECORDS SUMMARY | 2024-07-25 09:34 | XMS_ITS | Encounter Summary ---
Author Organization [facility] Address [address] [place] [address] Care Team Providers Care State Auditor Name Role Phone Daniel Mota MD Primary Care Provider [facility] Ayan Clayton MD Primary Care Provider Reason for Visit * Reason Comments E-prescribe Rx Request Encounter Details Date Type Department Care Team Description 07/10/2019 Refill General Surgery - [place] 175 [facility] [address] [place] [phone] Torrey Moreno MD [address] [place] [address] [address] [place] [address] E-prescribe Rx Request Social History Tobacco Use [...] filedocumented in this encounter Care Teams State Auditor Relationship Specialty Start Date End Date Daniel Mota MD PCP - General Internal Medicine 10/20/16 09/23/19 Ayan Clayton MD [address] [place] [address] PCP - General Internal Medicine 09/24/19 documented as of this encounter
--- OUTSIDE RECORDS SUMMARY | 2024-07-25 09:34 | XMS_ITS | Encounter Summary ---
Author Organization [facility] Address [address] [place] [address] Care Team Providers Care Lcsw Name Role Phone Daniel Mota MD Primary Care Provider Unavail Victor Manuel Yu MD Primary Care Provider Unava ilable Daniel Mota MD Primary Care Provider Unavail Ayan Pulliam MD Primary Care Provider [phone] Victor Manuel Gonzales MD Primary Care Provider Justinava jaxson Encounter Details Date Type Department Care Team Description 01/29/2015 [facility] Medical Records [address] [place] [address] Austin Dorado Social History Tobacco Use Types [...] on filedocumented in this encounter Care Teams Lcsw Relationship Specialty Start Date End Date Daniel Mota MD PCP - General 07/27/1994 12/22/15 Victor Manuel Gonzales MD PCP - General Internal Medicine 07/22/16 10/19/16 Daniel Mota MD PCP - General Internal Medicine 10/20/16 09/23/19 Ayan Clayton MD [address] [place] [address] PCP - General Internal Medicine 09/24/19 Victor Manuel Gonzales MD PCP - General 12/23/15 07/21/16 documented as of this encounter
--- OUTSIDE RECORDS SUMMARY | 2024-07-25 09:34 | XMS_ITS | Encounter Summary ---
Author Organization [facility] Address [address] [place] [address] Care Team Providers Care Overlay Plastician Name Role Phone Daniel Mota MD Primary Care Provider Unavail Victor Manuel Yu MD Primary Care Provider Unava ilable Daniel Mota MD Primary Care Provider Unavail Ayan Pulliam MD Primary Care Provider [phone] Victor Manuel Gonzales MD Primary Care Provider Unava ilmaximino Encounter Details Date Type Department Care Team Description 01/29/2015 Tree Trimmer Helper Report Medical Records [address] [place] [address] Austin Dorado Social History Tobacco Use Types [...] on filedocumented in this encounter Care Teams Overlay Plastician Relationship Specialty Start Date End Date Daniel Mota MD PCP - General 07/27/1994 12/22/15 Victor Manuel Gonzales MD PCP - General Internal Medicine 07/22/16 10/19/16 Daniel Mota MD PCP - General Internal Medicine 10/20/16 09/23/19 Ayan Clayton MD [address] [place] [address] PCP - General Internal Medicine 09/24/19 Victor Manuel Gonzales MD PCP - General 12/23/15 07/21/16 documented as of this encounter
--- OUTSIDE RECORDS SUMMARY | 2024-07-25 09:34 | XMS_ITS | Encounter Summary ---
Author Organization [facility] Address [address] [place] [address] Care Team Providers Care Bass Guitar Teacher Name Role Phone Daniel Mota MD Primary Care Provider Unavail able Ayan Clayton MD Primary Care Provider [phone] Encounter Details Date Type Department Care Team Description 04/11/2019 Release of Information Medical Records [address] [place] [address] Abstract, Provider Social History Tobacco Use Types [...] on filedocumented in this encounter Care Teams Bass Guitar Teacher Relationship Specialty Start Date End Date Daniel Mota MD PCP - General Internal Medicine 10/20/16 09/23/19 Ayan Clayton MD [address] [place] [address] PCP - General Internal Medicine 09/24/19 documented as of this encounter
--- OUTSIDE RECORDS SUMMARY | 2024-07-25 09:34 | XMS_ITS | Encounter Summary ---
Author Organization [facility] Address [address] [place] [address] Care Team Providers Care Appraiser Personal Property Name Role Phone Daniel Mota MD Primary Care Provider Unavail Victor Manuel Yu MD Primary Care Provider Unava ilable Daniel Mota MD Primary Care Provider Unavail Ayan Pulliam MD Primary Care Provider [phone] Victor Manuel Gonzales MD Primary Care Provider Unava ilable Reason for Visit * Reason Onset Date Comments Faxed Refill 08/04/2014 Encounter Details Date Type Department Care Team Description 08/04/2014 Refill Adult Medicine [facility] [address] [place] [address] Daniel Mota MD Faxed Refill Social History [...] NO Patients current insurance carrier is: Payor: [employer] FFS / Plan: [employer] PLAN / Product Type: MEDICAID RISK documented in this encounter Plan of Treatment Not on file documented as of this encounter Visit Diagnoses Not on filedocumented in this encounter Care Teams Appraiser Personal Property Relationship Specialty Start Date End Date Daniel Mota MD PCP - General 07/27/1994 12/22/15 Victor Manuel Gonzales MD PCP - General Internal Medicine 07/22/16 10/19/16 Daniel Mota MD PCP - General Internal Medicine 10/20/16 09/23/19 Ayan Clayton MD [address] [place] [address] PCP - General Internal Medicine 09/24/19 Victor Manuel Gonzales MD PCP - General 12/23/15 07/21/16 documented as of this encounter
--- OUTSIDE RECORDS SUMMARY | 2024-07-25 09:34 | XMS_ITS | Encounter Summary ---
Author Organization [facility] Address [address] [place] [address] Care Team Providers Care Critical Care Educator Name Role Phone Daniel Mota MD Primary Care Provider Unavail able Ayan Clayton MD Primary Care Provider [phone] Encounter Details Date Type Department Care Team Description 05/07/2019 Design Engineer Products Report Medical Records [address] [place] [address] Ta Garcia MD Social History Tobacco Use [...] on filedocumented in this encounter Care Teams Critical Care Educator Relationship Specialty Start Date End Date Daniel Mota MD PCP - General Internal Medicine 10/20/16 09/23/19 Ayan Clayton MD [address] [place] [phone] PCP - General Internal Medicine 09/24/19 documented as of this encounter
--- OUTSIDE RECORDS SUMMARY | 2024-07-25 09:34 | XMS_ITS ---
Author Organization [facility] Address [address] [facility] [address] [place] [address] Care Team Providers Care Tick Eradicator Name Role Phone Ayan Clayton Primary Care Provider SKYLAR Perez Unavailable [phone] Allergies Allergen (clinical drug ingredient) Drug/Non Drug [...] Orally Once a day Active Vital Signs Temperature 96.8 degrees Fahrenheit 01/31/20 Heart Rate 92 /min 01/30/2023 Respiratory Rate 16 /min 01/30/2023 Height 5ft in 01/30/2023 Weight 150.4 lbs 01/30/2023 BMI 29.37 kg/m2 01/30/2023 Procedures Procedure Date Ordered Date Performed Result Body Sit e DRAIN/INJECT, INTERMEDIATE JOINT/BURSA 01/30/2023 N/A Encounters Encounter Location Date Provider Diagnosis [facility] [address] [facility] [address] [place] [address] 01/30/2023 SKYLAR HANNA Type 2 diabetes mellitus [...] debridement of toenails x 10 with a slate cutter operator and a curette, pt tolerated well. Discussed [...] Provider:?Skylar Hanna DPM :1955???Age:67 Y???Sex:Female D ate:01/30/2023 Address:[facility] [address], [address] [id number] Pcp:Ayan Clayton Subjective: * Chief Complaints: * [...] bilaterally, protective sensation diminished 2/10 with 5.07 [place] bilaterally, vibratory sensation with tuning fork [...] debridement of toenails x 10 with a slate cutter operator and a curette, pt tolerated well. Discussed [...] Codes:? DRAIN /INJECT, INTERMEDIATE JOINT/BURSA, [place]: [place] [address] DEBRIDE NAIL, 6 OR MORE, Modifiers: q9 J1100 INJ DEXAMETHASONE SODIM PHOSHATE 1 [id number] INJ TRIAMCINOLONE ACETONIDE 10 MG * Follow Up:?3 Months * Billing Information: * Visit Code:? 11238 Office Visit, Est Pt., Level 3. Modifiers: 25 * Procedure Codes:? DRAIN/INJECT, INTERMEDIATE JOINT/[place]: [place] [address] DEBRIDE NAIL, 6 OR MORE. Modifiers: q9 J1100 INJ DEXAMETHASONE SODIM PHOSHATE 1 MG. J3301 INJ TRIAMCINOLONE ACETONIDE 10 MG. * Sign off status: Completed true * Provider:Shirley Hanna DPM Date:? 01/30/2023 Generated for Mark weir/Grabiel/Jannieitting on:?07/25/2024 09:33 AM EDT History and Physical Notes * HPI (History [...] bilaterally, protective sensation diminished 2/10 with 5.07 [place] bilaterally, vibratory sensation with tuning fork [...]
--- OUTSIDE RECORDS SUMMARY | 2024-07-25 09:34 | XMS_ITS | Encounter Summary ---
Author Organization [facility] Address [address] [place] [address] Care Team Providers Care Human Resources Vice President Name Role Phone Ayan Clayton MD Primary Care Provider [phone] Reason for Visit * Reason Onset Date Comments Faxed Order 12/06/2019 Encounter Details Date Type Department Care Team Description 12/06/2019 Telephone Adult Medicine [facility] [address] [place] [phone] Ayan Clayton MD [address] [place] [address] [phone] Faxed Order Social History Tobacco Use Types [...] pass this call to me at EX 9200 Thank you * Telephone Encounter - Mela Benton R.N. - 12/09/2019 10:21 AM EDT We need a face to face for [facility]NA. Last visit 11/20 * Telephone Encounter - Noemi Sanders - 12/09/2019 10:10 AM EDT [facility]me at [facility] needs face to face faxed to him today Phone [phone] * Telephone Encounter - Tara Roe - 12/06/2019 2:16 PM EDT FAXED IN DR CATALAN'S [facility]OX [employer]E SIGNATURE AND TO BE FAXED BACK TO [phone] documented in this encounter Plan of Treatment Not on file documented as of this encounter Visit Diagnoses Not on filedocumented in this encounter Care Teams Human Resources Vice President Relationship Specialty Start Date End Date Ayan Clayton MD [address] [place] [address] PCP - General Internal Medicine 09/24/19 documented as of this encounter
--- OUTSIDE RECORDS SUMMARY | 2024-07-25 09:35 | XMS_ITS ---
Author Organization [facility] Address [address] [address] Care Team Providers Care Machine Clothing Replacer Name Role Phone Ayan Clayton Primary Care Provider SKYLAR Perez [phone] REASON FOR VISIT 3 month follow up Encounters Encounter Location Date Provider Diagnosis [facility] [address] [address] 05/05/2023 SKYLAR HANNA Plan Of Treatment No Information Progress Notes * LUISYanetDOB:1955 (68 yo F)Acc No.[id number]:05/05/2023 Progress Note Patient:?LUIS Yanet Provider:?Skylar Hanna DPM :1955???Age:67 Y???Sex:Female D ate:05/05/2023 Address:[id number] Pcp:Ayan Clayton Subjective: * Chief Complaints: * ???1. 3 month follow up. * Medical History:? Objective: * Vitals:? Assessment: Plan: * Treatment: * Billing Information: * Visit Code:? * Procedure Codes:? * Electronic signature of RHIANNON HANNA D.P.M on 07/25/2024 at 09:35 AM EDT Sign off status: Pending * Provider:Shirley Hanna DPM Date:? 05/05/2023 Generated for Printi ng/Faxing/eTransmitting on:?07/25/2024 09:35 AM EDT
--- OUTSIDE RECORDS SUMMARY | 2024-07-25 09:35 | XMS_ITS | Encounter Summary ---
Author Organization [facility] Address [address] [place] [address] Care Team Providers Care Bow Maker Name Role Phone Daniel Mota MD Primary Care Provider Unavail Victor Manuel Yu MD Primary Care Provider Unava ilable Daniel Mota MD Primary Care Provider Unavail Ayan Pulliam MD Primary Care Provider [phone] Victor Manuel Gonzales MD Primary Care Provider Unava ilmaximino Encounter Details Date Type Department Care Team Description 08/01/2009 [facility] Medical Records [address] [place] [address] Orlando Stovall MD Social History Tobacco Use [...] on filedocumented in this encounter Care Teams Bow Maker Relationship Specialty Start Date End Date Daniel Mota MD PCP - General 07/27/1994 12/22/15 Victor Manuel Gonzales MD PCP - General Internal Medicine 07/22/16 10/19/16 Daniel Mota MD PCP - General Internal Medicine 10/20/16 09/23/19 Ayan Clayton MD [address] [place] [address] PCP - General Internal Medicine 09/24/19 Victor Manuel Gonzales MD PCP - General 12/23/15 07/21/16 documented as of this encounter
--- OUTSIDE RECORDS SUMMARY | 2024-07-25 09:35 | XMS_ITS ---
Author Organization [facility] Address [address] [address] Care Team Providers Care Film Reader Name Role Phone LENNIE ALFARO Primary Care Provider REASON FOR VISIT Oxycodone refill Medications Medication SIG (Take, Route, Frequency, Duration) Notes Start Date End Date Status oxyCODONE HCl 10 MG 1 tablet Orally 3 times a day for 14 days Partial Fill upon Patient Request Partial Fill Upon Patient Request 06/20/2024 Active Encounters Encounter Location Date Provider Diagnosis [facility] [address] [address] 06/20/2024 LENNIE ALFARO Plan Of Treatment Medication Medication Name Sig Start Date Stop Date Notes oxyCODONE HCl 10 MG 1 tablet Orally 3 times a day for 14 days 06/20/2024 Partial Fill upon Patient Request Partial Fill Upon Patient Request Next Appt Details Provider Name:Xuan Jean Baptiste, 0 07/31/2024 10:15:00 AM, [address] [place] [address], [phone], Provider Name:LENNIE ALFARO , 12/20/2024 10:00:00 AM, [address] [place] [address], [phone], Progress Notes * Yanet KINGDOB:1955 (68 yo F)Acc No.[id number]:06/20/2024 Patient:?Yanet KING :1955???Age:68 Y???Sex:Female Address:[facility] [address], [place] [address] * Refills? Refill oxyCODONE HCl Tablet, 10 MG, Orally, 42 Tablet, 1 tablet, 3 times a day, 14 days, Refills=0 * true * Date:? Generated for Mark weir/Grabiel/Leonelsmitting on:?07/25/2024 09:35 AM EDT
--- OUTSIDE RECORDS SUMMARY | 2024-07-25 09:35 | XMS_ITS | Encounter Summary ---
Author Organization [facility] Address [address] [place] [address] Care Team Providers Care Batter Mixer Helper Name Role Phone Ayan Clayton MD Primary Care Provider [phone] Encounter Details Date Type Department Care Team Description 06/26/2020 Cassandra Developer Report Medical Records [address] [place] [address] [facility] Social History Tobacco Use Types Packs/Day Years [...] on filedocumented in this encounter Care Teams Batter Mixer Helper Relationship Specialty Start Date End Date Ayan Clayton MD [address] [place], [place] [id number] PCP - General Internal Medicine 09/24/19 documented as of this encounter
--- OUTSIDE RECORDS SUMMARY | 2024-07-25 09:35 | XMS_ITS ---
Author Organization [facility] Address [address] [facility] [address] [place] [address] Care Team Providers Care Dressing Room Porter Name Role Phone ANGELINA HOGUE Primary Care Provider Allergies Allergen (clinical drug ingredient) Drug/Non Drug Allergy documented on EMR Reaction Allergy Type Onset Date Status semaglutide Ozempic pancreatitis Drug Allergy Ac tive metformin Metformin diarrhea Drug Allergy Active Substance with sulfonamide structure and antibacterial mechanism of action (substance) Sulfa Antibiotics anaphylaxis Drug Allergy Active REASON FOR VISIT [facility] D/C 07/04/24; Notes Scanned Medications Medication SIG (Take, Route, Frequency, Duration) Notes Start Date End Date Status Nystatin 018580 UNIT/GM 1 application Externally Twice a day along with the nystatin cream Active Acetaminophen Extra Strength 500 MG 2 tablet as needed Orally every 6 hrs Active Ventolin HFA 108 (90 Base) MCG/ACT 1 puff as needed Inhalation every 4 hrs Active Ferrous Sulfate 325 (65 Fe) MG 1 tablet Orally Once a day for 30 days 11/20/2023 Active Fluticasone-Salmeter ol 230-21 MCG/ACT 2 puffs Inhalation Twice a day Active Losartan Potassium 25 MG 1 tablet Orally Once a day for 30 days 07/16/2024 Active Coreg 3.125 MG 1 tablet with food Orally Twice a day 07/16/2024 Active Complex B-100 - as directed Orally 03/06/2024 Active Albuterol Sulfate (2.5 MG/3ML) 0.083% 3 ml as needed Inhalation every 6 hrs Active Deep Sea Nasal [place] 0.65 % 2 sprays in each nostril as needed Nasally every 2 hrs Active Aspirin 81 MG 1 tablet Orally Once a day Not-Taking Lisinopril 2.5 MG 1 tablet Orally Once a day 09/25/2023 Not-Taking Ozempic (2 MG/DOSE) 8 MG/3ML 2 mg Subcutaneous once a week for 30 days Not-Taking Paxlovid (300/100) 20 x 150 MG & 10 x 100MG 3 tablets Orally Twice a day for 5 days 11/02/2023 Not-Taking Enoxaparin Sodium 60 MG/0.6ML as directed Injection once a day 09/25/2023 Not-Taking Diclofenac Sodium 3 % 1 application Externally Twice a day for 30 days 02/01/2024 Not-Taking Tylenol 8 Hour Arthritis Pain 650 MG 2 tablets as needed Orally every 8 hrs for 30 days 02/01/2024 Not-Taking Vancomycin HCl 125 MG 1 capsule Orally every 6 hours 12 days Not-Taking hydrOXYzine HCl 50 MG 1 tablet Orally Twice a day Not-Taking Amoxicillin-Pot Clavulanate 500-125 MG 1 tablet Orally every 12 hrs for 7 days 11/17/2023 Not-Taking Multivitamin - 1 tablet Orally Once a day Not-Taking Ondansetron 4 MG 1 tablet on the tongue and allow to dissolve Orally twice daily for 30 days 09/25/2023 Not-Taking Vitamin D3 25 MCG (1000 UT) 1 tablet Orally Once a day for 30 days Not-Taking Docusate Sodium 100 mg TAKE ONE CAPSULE BY MOUTH TWICE DAILY for 30 Not-Taking Vitamin B12 1000 MCG 1 tablet Orally Once a day Not-Taking Morphine Sulfate ER 15 mg TAKE ONE TABLET EVERY DAY for 28 Partial Fill Upon Patient Request 06/28/2024 Active oxyCODONE HCl 10 mg TAKE ONE TABLET THREE TIMES DAILY for 14 Partial Fill Upon Patient Request 07/09/2024 Active Ibuprofen 800 MG 1 tablet with food or milk as needed Orally every 8 hrs for 90 days Active Thiamine HCl 100 MG 1 tablet Orally Once a day Not-Taking MiraLax 17 GM 1 packet mixed with 8 ounces of fluid Orally twice a day as needed Not-Taking Wheelchair - Wheelchair with legs as directed; DX: M15.9, M51.35 for 30 days 03/29/2024 Active Ezetimibe 10 mg TAKE ONE TABLET EVERY DAY for 30 Active tiZANidine HCl 4 MG 1 tablet at bedtime as needed Orally Once a day for 30 days Active DULoxetine HCl 30 mg TAKE ONE CAPSULE DAILY for 30 Active Omeprazole 20 MG 1 capsule 30 minutes before morning meal Orally Once a day for 90 days 09/25/2023 Active Apixaban 5 MG 1 tablet Orally twice a day for 30 days Active Lidocaine 4 % 1 patch as needed Externally Once a day for 30 days 02/01/2024 Active Tylenol Arthritis Pain Active Atorvastatin Calcium 20 MG 1 tablet Orally Once a day for 90 days Active B Complex - 1 TAB Orally DAILY for 90 days one daily Active Cetirizine HCl 10 MG 1 tablet Orally Once a day for 90 days Active Diclofenac Sodium 1 % as directed Externally 2 times a day for 30 days 2 gms 12/07/2023 Active Naloxone HCl 4 MG/0.1ML as directed Nasally prn for 30 days 01/04/2024 Active Sodium Bicarbonate 650 MG 1 TAB Orally 2 TIMES A DAY for 30 days Active Problems Problem Type SNOMED Code ICD Code Onset Dates Problem Status W/U Status Risk Notes Problem Embolism from thrombosis of vein of lower extremity (207379047) 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) Active confirmed Problem Gastro-esophagea l reflux disease without esophagitis (777373102) Gastro-esophage al reflux disease without esophagitis (K21.9) Active confirmed Vital Signs Temperature 97.4 degrees Fahrenheit 07/17/19 25 Oximetry 93 % 07/16/2024 Heart Rate 68 /min 07/16/2024 Blood pressure systolic 155 mm Hg 07/17/19 25 Blood pressure diastolic 70 mm Hg 025 Weight 144.6 lbs 07/16/2024 BMI 28.24 kg/m2 07/16/2024 Height 60 in 07/16/2024 Encounters Encounter Location Date Provider Diagnosis [facility] [address] [id number] 07/16/2024 [facility] discharge follow-up Z09 ; Type 2 diabetes mellitus with unspecified complications E11.8 ; Essential (primary) hypertension I10 ; Mixed hyperlipidemia E78.2 ; Chronic pain syndrome G89.4 ; Chronic embolism and thrombosis of unspecified deep veins of unspecified lower extremity I82.509 and Gastro-esophageal reflux disease without esophagitis K21.9 Assessments Encounter Date Diagnosis (ICD Code) Assessment Notes Treatment Notes Treatment Clinical Notes Section Notes 07/16/2024 Hospital discharge follow-up (ICD-10 - Z09) Ron is 68 years old lady with hypertension, hyperlipidemia, diabetes mellitus type 2, anemia, DVT, acid reflux, multiple joint osteoarthritis is here today for follow-up. She was recently admitted at [facility] for upper respiratory tract symptoms. Plan is as follows Upper respiratory tract symptoms. She had negative x-ray but there was bacterial component to her symptoms and she was given azithromycin 500 mg 1 tablet daily for 2 days and she was discharged home. Bradycardia. There was question of bradycardia in urgent care but during her hospital stay her heart rate was within acceptable range and she was started on carvedilol 3.125 mg 1 tablet twice a day which she is tolerating fine. Diabetes mellitus type 2. She is off the medication and she is gaining weight and her last A1c was 7. We will repeat hemoglobin A1c and will go from there because of weight gain and she is not compliant with low calorie diet. Hypertension. Blood pressure running high today in the office. Continue Coreg 3.125 mg and will add losartan 25 mg because of her diabetes and will monitor blood pressure in the next 2 weeks. She will check renal function and electrolytes before next appointment Mixed hyperlipidemia. Continue on Zetia 10 mg along with atorvastatin 20 mg daily. Chronic pain management. Secondary to multiple joint osteoarthritis. She is on oxycodone 10 mg 1 tablet 3 times a day along with morphine sulfate 15 mg 1 tablet daily. She is on controlled substance contract. Her urine toxicology screens have been appropriately positive and negative in the past. She does not ask for early refills and she does not have aberrant behavior. acid reflux. Continue on omeprazole 20 mg and diet restrictions discussed. Chronic lower extremity DVT. Currently on apixaban 5 mg 1 tablet twice a day and she is tolerating the medication. Major depression. Continue on duloxetine 30 mg. Symptoms are under control 07/16/2024 Type 2 diabetes mellitus with unspecified complications (ICD-10 - E11.8) Ron is 68 years old lady with hypertension, hyperlipidemia, diabetes mellitus type 2, anemia, DVT, acid reflux, multiple joint osteoarthritis is here today for follow-up. She was recently admitted at [facility] for upper respiratory tract symptoms. Plan is as follows Upper respiratory tract symptoms. She had negative x-ray but there was bacterial component to her symptoms and she was given azithromycin 500 mg 1 tablet daily for 2 days and she was discharged home. Bradycardia. There was question of bradycardia in urgent care but during her hospital stay her heart rate was within acceptable range and she was started on carvedilol 3.125 mg 1 tablet twice a day which she is tolerating fine. Diabetes mellitus type 2. She is off the medication and she is gaining weight and her last A1c was 7. We will repeat hemoglobin A1c and will go from there because of weight gain and she is not compliant with low calorie diet. Hypertension. Blood pressure running high today in the office. Continue Coreg 3.125 mg and will add losartan 25 mg because of her diabetes and will monitor blood pressure in the next 2 weeks. She will check renal function and electrolytes before next appointment Mixed hyperlipidemia. Continue on Zetia 10 mg along with atorvastatin 20 mg daily. Chronic pain management. Secondary to multiple joint osteoarthritis. She is on oxycodone 10 mg 1 tablet 3 times a day along with morphine sulfate 15 mg 1 tablet daily. She is on controlled substance contract. Her urine toxicology screens have been appropriately positive and negative in the past. She does not ask for early refills and she does not have aberrant behavior. acid reflux. Continue on omeprazole 20 mg and diet restrictions discussed. Chronic lower extremity DVT. Currently on apixaban 5 mg 1 tablet twice a day and she is tolerating the medication. Major depression. Continue on duloxetine 30 mg. Symptoms are under control 07/16/2024 Essential (primary) hypertension (ICD-10 - I10) Ron is 68 years old lady with hypertension, hyperlipidemia, diabetes mellitus type 2, anemia, DVT, acid reflux, multiple joint osteoarthritis is here today for follow-up. She was recently admitted at [facility] for upper respiratory tract symptoms. Plan is as follows Upper respiratory tract symptoms. She had negative x-ray but there was bacterial component to her symptoms and she was given azithromycin 500 mg 1 tablet daily for 2 days and she was discharged home. Bradycardia. There was question of bradycardia in urgent care but during her hospital stay her heart rate was within acceptable range and she was started on carvedilol 3.125 mg 1 tablet twice a day which she is tolerating fine. Diabetes mellitus type 2. She is off the medication and she is gaining weight and her last A1c was 7. We will repeat hemoglobin A1c and will go from there because of weight gain and she is not compliant with low calorie diet. Hypertension. Blood pressure running high today in the office. Continue Coreg 3.125 mg and will add losartan 25 mg because of her diabetes and will monitor blood pressure in the next 2 weeks. She will check renal function and electrolytes before next appointment Mixed hyperlipidemia. Continue on Zetia 10 mg along with atorvastatin 20 mg daily. Chronic pain management. Secondary to multiple joint osteoarthritis. She is on oxycodone 10 mg 1 tablet 3 times a day along with morphine sulfate 15 mg 1 tablet daily. She is on controlled substance contract. Her urine toxicology screens have been appropriately positive and negative in the past. She does not ask for early refills and she does not have aberrant behavior. acid reflux. Continue on omeprazole 20 mg and diet restrictions discussed. Chronic lower extremity DVT. Currently on apixaban 5 mg 1 tablet twice a day and she is tolerating the medication. Major depression. Continue on duloxetine 30 mg. Symptoms are under control 07/16/2024 Mixed hyperlipidemia (ICD-10 - E78.2) Ron is 68 years old lady with hypertension, hyperlipidemia, diabetes mellitus type 2, anemia, DVT, acid reflux, multiple joint osteoarthritis is here today for follow-up. She was recently admitted at [facility] for upper respiratory tract symptoms. Plan is as follows Upper respiratory tract symptoms. She had negative x-ray but there was bacterial component to her symptoms and she was given azithromycin 500 mg 1 tablet daily for 2 days and she was discharged home. Bradycardia. There was question of bradycardia in urgent care but during her hospital stay her heart rate was within acceptable range and she was started on carvedilol 3.125 mg 1 tablet twice a day which she is tolerating fine. Diabetes mellitus type 2. She is off the medication and she is gaining weight and her last A1c was 7. We will repeat hemoglobin A1c and will go from there because of weight gain and she is not compliant with low calorie diet. Hypertension. Blood pressure running high today in the office. Continue Coreg 3.125 mg and will add losartan 25 mg because of her diabetes and will monitor blood pressure in the next 2 weeks. She will check renal function and electrolytes before next appointment Mixed hyperlipidemia. Continue on Zetia 10 mg along with atorvastatin 20 mg daily. Chronic pain management. Secondary to multiple joint osteoarthritis. She is on oxycodone 10 mg 1 tablet 3 times a day along with morphine sulfate 15 mg 1 tablet daily. She is on controlled substance contract. Her urine toxicology screens have been appropriately positive and negative in the past. She does not ask for early refills and she does not have aberrant behavior. acid reflux. Continue on omeprazole 20 mg and diet restrictions discussed. Chronic lower extremity DVT. Currently on apixaban 5 mg 1 tablet twice a day and she is tolerating the medication. Major depression. Continue on duloxetine 30 mg. Symptoms are under control 07/16/2024 Chronic pain syndrome (ICD-10 - G89.4) Ron is 68 years old lady with hypertension, hyperlipidemia, diabetes mellitus type 2, anemia, DVT, acid reflux, multiple joint osteoarthritis is here today for follow-up. She was recently admitted at [facility] for upper respiratory tract symptoms. Plan is as follows Upper respiratory tract symptoms. She had negative x-ray but there was bacterial component to her symptoms and she was given azithromycin 500 mg 1 tablet daily for 2 days and she was discharged home. Bradycardia. There was question of bradycardia in urgent care but during her hospital stay her heart rate was within acceptable range and she was started on carvedilol 3.125 mg 1 tablet twice a day which she is tolerating fine. Diabetes mellitus type 2. She is off the medication and she is gaining weight and her last A1c was 7. We will repeat hemoglobin A1c and will go from there because of weight gain and she is not compliant with low calorie diet. Hypertension. Blood pressure running high today in the office. Continue Coreg 3.125 mg and will add losartan 25 mg because of her diabetes and will monitor blood pressure in the next 2 weeks. She will check renal function and electrolytes before next appointment Mixed hyperlipidemia. Continue on Zetia 10 mg along with atorvastatin 20 mg daily. Chronic pain management. Secondary to multiple joint osteoarthritis. She is on oxycodone 10 mg 1 tablet 3 times a day along with morphine sulfate 15 mg 1 tablet daily. She is on controlled substance contract. Her urine toxicology screens have been appropriately positive and negative in the past. She does not ask for early refills and she does not have aberrant behavior. acid reflux. Continue on omeprazole 20 mg and diet restrictions discussed. Chronic lower extremity DVT. Currently on apixaban 5 mg 1 tablet twice a day and she is tolerating the medication. Major depression. Continue on duloxetine 30 mg. Symptoms are under control 07/16/2024 Chronic embolism and thrombosis of unspecified deep veins of unspecified lower extremity (ICD-10 - I82.509) Ron is 68 years old lady with hypertension, hyperlipidemia, diabetes mellitus type 2, anemia, DVT, acid reflux, multiple joint osteoarthritis is here today for follow-up. She was recently admitted at [facility] for upper respiratory tract symptoms. Plan is as follows Upper respiratory tract symptoms. She had negative x-ray but there was bacterial component to her symptoms and she was given azithromycin 500 mg 1 tablet daily for 2 days and she was discharged home. Bradycardia. There was question of bradycardia in urgent care but during her hospital stay her heart rate was within acceptable range and she was started on carvedilol 3.125 mg 1 tablet twice a day which she is tolerating fine. Diabetes mellitus type 2. She is off the medication and she is gaining weight and her last A1c was 7. We will repeat hemoglobin A1c and will go from there because of weight gain and she is not compliant with low calorie diet. Hypertension. Blood pressure running high today in the office. Continue Coreg 3.125 mg and will add losartan 25 mg because of her diabetes and will monitor blood pressure in the next 2 weeks. She will check renal function and electrolytes before next appointment Mixed hyperlipidemia. Continue on Zetia 10 mg along with atorvastatin 20 mg daily. Chronic pain management. Secondary to multiple joint osteoarthritis. She is on oxycodone 10 mg 1 tablet 3 times a day along with morphine sulfate 15 mg 1 tablet daily. She is on controlled substance contract. Her urine toxicology screens have been appropriately positive and negative in the past. She does not ask for early refills and she does not have aberrant behavior. acid reflux. Continue on omeprazole 20 mg and diet restrictions discussed. Chronic lower extremity DVT. Currently on apixaban 5 mg 1 tablet twice a day and she is tolerating the medication. Major depression. Continue on duloxetine 30 mg. Symptoms are under control 07/16/2024 Gastro-esophageal reflux disease without esophagitis (ICD-10 - K21.9) Ron is 68 years old lady with hypertension, hyperlipidemia, diabetes mellitus type 2, anemia, DVT, acid reflux, multiple joint osteoarthritis is here today for follow-up. She was recently admitted at [facility] for upper respiratory tract symptoms. Plan is as follows Upper respiratory tract symptoms. She had negative x-ray but there was bacterial component to her symptoms and she was given azithromycin 500 mg 1 tablet daily for 2 days and she was discharged home. Bradycardia. There was question of bradycardia in urgent care but during her hospital stay her heart rate was within acceptable range and she was started on carvedilol 3.125 mg 1 tablet twice a day which she is tolerating fine. Diabetes mellitus type 2. She is off the medication and she is gaining weight and her last A1c was 7. We will repeat hemoglobin A1c and will go from there because of weight gain and she is not compliant with low calorie diet. Hypertension. Blood pressure running high today in the office. Continue Coreg 3.125 mg and will add losartan 25 mg because of her diabetes and will monitor blood pressure in the next 2 weeks. She will check renal function and electrolytes before next appointment Mixed hyperlipidemia. Continue on Zetia 10 mg along with atorvastatin 20 mg daily. Chronic pain management. Secondary to multiple joint osteoarthritis. She is on oxycodone 10 mg 1 tablet 3 times a day along with morphine sulfate 15 mg 1 tablet daily. She is on controlled substance contract. Her urine toxicology screens have been appropriately positive and negative in the past. She does not ask for early refills and she does not have aberrant behavior. acid reflux. Continue on omeprazole 20 mg and diet restrictions discussed. Chronic lower extremity DVT. Currently on apixaban 5 mg 1 tablet twice a day and she is tolerating the medication. Major depression. Continue on duloxetine 30 mg. Symptoms are under control Plan Of Treatment Medication Medication Name Sig Start Date Stop Date Notes Losartan Potassium 25 MG 1 tablet Orally Once a day for 30 days 07/16/2024 Future Test Test Name Order Date Hemoglobin [id number] 07/16/2024 Albumin/Creatinine Ratio,[id number] Lipid Panel-[id number] 07/16/2024 Comp. Metabolic Panel ([id number] 2024 Next Appt Details Follow Up: 2 Weeks- BP, Reas on: Provider Name:Xuan Jean Baptiste, 0 07/31/2024 10:15:00 AM, [address] [place] [address], [phone], Provider Name:LENNIE ALFARO , 12/20/2024 10:00:00 AM, [address] [place] [address], [phone], Progress Notes * Gregg KING:1955 (68 yo F)Acc No.[id number]:07/16/2024 Patient:?Yanet KING Provider:?LENNIE ALFARO MD :1955???Age:68 Y???Sex:Female D ate:07/16/2024 Address:[address], [place], [id number] Subjective: * Chief Complaints: * ???[facility] D[facility]C 07/04/24; Notes Sc anned * HPI: ???Internal Medicine:?Yanet is a 68-year-old female with a pmhx of T2DM, HLD, Asthma, Vitamin D deficiency is here for follow-up after hospital admission for upper respiratory tract symptoms.? X-ray did not show any significant findings but there was back to total complement and she was given azithromycin 500 mg with 3 days and she was discharged home.? They also started her on Coreg 3.125 mg 1 tablet twice a day.. She hd right hip surgery on May 01, 2024 at [facility] by Dr. Ruiz.? She uses a walker at home and she uses a wheelchair outside home. She has been able to walk with a walker. She is currently on morphine and oxycodone for pain management, and her pain is reasonably controlled. She denies any other active issues. * ROS:?General/Constitutional:?Overall health?Good.?Change in appetite?denies.?Chills?denies.?Fever?denies.?Sleep disturbance?denies.?Weight gain?admits, [...] on urination?denies.?difficulty urinating?denies.?discharge?denies.?dysuria?denies.? * Medical History:? * Medications:?TakingLosartan Potassium 25 MG Tablet 1 tablet Orally Once a day Coreg 3.125 MG Tablet 1 tablet with food Orally Twice a day Complex B-100 - Tablet Extended Release as directed Orally Albuterol Sulfate (2.5 MG/3ML) 0.083% Nebulization Solution 3 ml as needed Inhalation every 6 hrs Deep Sea Nasal [place] 0.65 % Solution 2 sprays in each nostril as needed Nasally every 2 hrs Fluticasone-Salmeterol 230- 21 MCG/ACT Aerosol 2 puffs Inhalation Twice a day Nystatin 806758 UNIT/GM Powder 1 application Externally Twice a day , Notes to Pharmacist: along with the nystatin creamAcetaminophen Extra Strength 500 MG Tablet 2 tablet as needed Orally every 6 hrs Ventolin HFA 108 (90 Base) MCG/ACT Aerosol Solution 1 puff as needed Inhalation every 4 hrs Ferrous Sulfate 325 (65 Fe) MG Tablet [...] patch as needed Externally Once a day Wheelchair - Miscellaneous Wheelchair with legs as directed; DX: M15.9, M51.35 Ezetimibe 10 mg Tablet TAKE ONE TABLET EVERY DAY tiZANidine HCl 4 MG Tablet 1 tablet at bedtime as needed Orally Once a day DULoxetine HCl 30 mg Capsule Delayed Release Particles TAKE ONE CAPSULE DAILY Omeprazole 20 MG Capsule Delayed Release 1 capsule 30 minutes before morning meal Orally Once a day Morphine Sulfate ER 15 mg Tablet Extended Release TAKE ONE TABLET EVERY DAY , Notes to Pharmacist: Partial Fill Upon Patient RequestoxyCODONE HCl 10 mg Tablet TAKE ONE TABLET THREE TIMES DAILY , Notes to Pharmacist: Partial Fill Upon Patient RequestIbuprofen 800 MG Tablet 1 tablet with food or milk as needed Orally every 8 hrs Taking Losartan Potassium 25 MG Tablet 1 tablet Orally Once a day Taking Coreg 3.125 MG Tablet 1 tablet with food Orally Twice a day Taking Complex B-100 - Tablet Extended Release as directed Orally Taking Albuterol Sulfate (2.5 MG/3ML) 0.083% Nebulization Solution 3 ml as needed Inhalation every 6 hrs Taking Deep Sea Nasal [place] 0.65 % Solution 2 sprays in each nostril as needed Nasally every 2 hrs Taking Fluticasone-Salmeterol 230-21 MCG/ACT Aerosol 2 puffs Inhalation Twice a day Taking Nystatin 909983 UNIT/GM Powder 1 application Externally Twice a day , Notes to Pharmacist: along with the nystatin creamTaking Acetaminophen Extra Strength 500 MG Tablet 2 tablet as needed Orally every 6 hrs Taking Ventolin HFA 108 (90 Base) MCG/ACT Aerosol Solution 1 puff as needed Inhalation every 4 hrs Taking Ferrous Sulfate 325 (65 Fe) MG [...] as needed Externally Once a day Taking Wheelchair - Miscellaneous Wheelchair with legs as directed; DX: M15.9, M51.35 Taking Ezetimibe 10 mg Tablet TAKE ONE TABLET EVERY DAY Taking tiZANidine HCl 4 MG Tablet 1 tablet at bedtime as needed Orally Once a day Taking DULoxetine HCl 30 mg Capsule Delayed Release Particles TAKE ONE CAPSULE DAILY Taking Omeprazole 20 MG Capsule Delayed Release 1 capsule 30 minutes before morning meal Orally Once a day Taking Morphine Sulfate ER 15 mg Tablet Extended Release TAKE ONE TABLET EVERY DAY , Notes to Pharmacist: Partial Fill Upon Patient RequestTaking oxyCODONE HCl 10 mg Tablet TAKE ONE TABLET THREE TIMES DAILY , Notes to Pharmacist: Partial Fill Upon Patient RequestTaking Ibuprofen 800 MG Tablet 1 tablet with food or milk as needed Orally every 8 hrs Not-TakingThiamine HCl 100 MG Tablet 1 tablet [...] and allow to dissolve Orally twice daily Vitamin D3 25 MCG (1000 UT) Tablet [...] allow to dissolve Orally twice daily Not-Taking Vitamin D3 25 MCG (1000 UT) Tablet 1 tablet Orally Once a day Not-Taking Docusate Sodium 100 mg Capsule TAKE ONE CAPSULE BY MOUTH TWICE DAILY Not-Taking Diclofenac Sodium 3 % Gel 1 application Externally Twice a day Not- Taking Tylenol 8 Hour Arthritis Pain 650 MG Tablet Extended Release 2 tablets as needed Orally every 8 hrs Not-Taking Vancomycin HCl 125 MG Capsule 1 capsule Orally every 6 hours 12 daysNot-Taking hydrOXYzine HCl 50 MG Tablet 1 tablet Orally Twice a day Not-Taking Amoxicillin-Pot Clavulanate 500-125 MG Tablet 1 tablet Orally every 12 hrs Not-Taking Enoxaparin Sodium 60 MG/0.6ML Solution Prefilled Syringe as directed Injection once a day Not-Taking Aspirin 81 MG Tablet Delayed Release 1 tablet Orally Once a day Not-Taking Lisinopril 2.5 MG Tablet 1 tablet Orally Once a day Not- Taking Ozempic (2 MG/DOSE) 8 MG/3ML Solution Pen-injector 2 mg Subcutaneous once a week Not-Taking Paxlovid (300/100) 20 x 150 MG & 10 x 100MG Tablet Therapy Pack 3 tablets Orally Twice a day Medication List reviewed and reconciled with the patient * Allergies:?Sulfa Antibiotics : anaphylaxisMetformin: diarrheaOzempic: pancreatitis - Side Effects - Criticality Highno[Allergies Verified] Objective: * Vitals:?Temp:97.4F, Oxygen s at %:93%, HR:68/min, BP: 144/54 mm Hg,155/70mm Hg, Wt:144.6lbs, BMI:28.24Index, Ht: 60 in. * ???Past Orders: ???Lab:Hemoglobin [id number] (Order Date - 03/06/2024) (Collection Date & Time - 03/08/2024 09:28 AM) ? Value Reference Range ?Hemoglobin A1c/ Hemoglobin total 7.0 H 4.8-5.6 - % ???Lab:Iron and [id number] (Order Date - 03/06/2024) (Collection Date & Time - 03/08/2024 09:28 AM) ? Value Reference Range ?Iron Bind.Cap.(TIBC) 277 250-450 - ug/dL ?UIBC 235 118-369 - ug/dL ?Iron 42 27-139 - ug/dL ?Iron Saturation 15 15-5 5 - % * Examination: ???General Examination: ?Psychiatry?Normal.?GENERAL APPEARANCE:?Well developed, [...] and lower extremities, sensory exam intact.?FEMALE GENITOURINARY:?__.?MALE GENITOURINARY:?__.?PODIATRIC:?Normal.?Brand Strategist? .? Assessment: * Assessment: 1.?Hospital discharge follow -up - Z09 (Primary)???2.?Type 2 diabetes mellitus with unspecified complications - E11.8???3.?Essential (primary) hypertension - I10???4.?Mixed hyperlipidemia - E78.2???5.?Chronic pain syndrome - G89.4???6.?Chronic embolism and thrombosis of unspecified deep veins of unspecified lower extremity - I82.509???7.?Gastro-esophageal reflux disease without esophagitis - K21.9??? Ron is 68 years old lady w ith hypertension, hyperlipidemia, diabetes mellitus type 2, anemia, DVT, acid reflux, multiple joint osteoarthritis is here today for follow-up.? She was recently admitted at [facility] for upper respiratory tract symptoms.? Plan is as follows Upper respiratory tract symptoms.? She had negative x-ray but there was bacterial component to her symptoms and she was given azithromycin 500 mg 1 tablet daily for 2 days and she was discharged home. Bradycardia.? There was question of bradycardia in urgent care but during her hospital stay her heart rate was within acceptable range and she was started on carvedilol 3.125 mg 1 tablet twice a day which she is tolerating fine. Diabetes mellitus type 2.? She is off the medication and she is gaining weight and her last A1c was 7.? We will repeat hemoglobin A1c and will go from there because of weight gain and she is not compliant with low calorie diet. Hypertension.? Blood pressure running high today in the office.? Continue Coreg 3.125 mg and will add losartan 25 mg because of her diabetes and will monitor blood pressure in the next 2 weeks.? She will check renal function and electrolytes before next appointment Mixed hyperlipidemia.? Continue on Zetia 10 mg along with atorvastatin 20 mg daily. Chronic pain management.? Secondary to multiple joint osteoarthritis.? She is on oxycodone 10 mg 1 tablet 3 times a day along with morphine sulfate 15 mg 1 tablet daily.? She is on controlled substance contract.? Her urine toxicology screens have been appropriately positive and negative in the past.? She does not ask for early refills and she does not have aberrant behavior. acid reflux.? Continue on omeprazole 20 mg and diet restrictions discussed. Chronic lower extremity DVT.? Currently on apixaban 5 mg 1 tablet twice a day and she is tolerating the medication. Major depression.? Continue on duloxetine 30 mg.? Symptoms are under control Plan: * Treatment: 2.?Others? Refill Losartan Potassium Tablet, 25 MG, 1 tablet, Orally, Once a day, 30 days, 30 Tablet, Refills 5.?? * Procedure Codes:?3078F DIAST BP < 80 MM [id number] SYST BP = 140 MM HG6 IT * Follow Up:?2 Weeks- BP * Images: * Sign off status: Completed true * Provider:?LENNIE ALFARO MD Date:?07/16 Generated for Mark weir/Grabiel/Jannieitting on:?07/25/2024 09:34 AM EDT History and Physical Notes * HPI (History of Present Illness) Category Sub-Category Detail Notes Category Not es Internal Medicine Yanet is a 68-year-old female with a pmhx of T2DM, HLD, Asthma, Vitamin D deficiency is here for follow-up after hospital admission for upper respiratory tract symptoms. X-ray did not show any significant findings but there was back to total complement and she was given azithromycin 500 mg with 3 days and she was discharged home. They also started her on Coreg 3.125 mg 1 tablet twice a day.. She hd right hip surgery on May 01, 2024 at [facility] by Dr. Ruiz. She uses a walker at home and she uses a wheelchair outside home. She has been able to walk with a walker. She is currently on morphine and oxycodone for pain management, and her pain is reasonably controlled. She denies any other active issues. Examination Category Sub-Category Detail Notes Category Not [...] Normal Psychiatry Normal OROPHARYNX Normal SINUSES Normal Brand Strategist
--- OUTSIDE RECORDS SUMMARY | 2024-07-25 09:35 | XMS_ITS | Encounter Summary ---
Author Organization [facility] Address [address] [place] [address] Care Team Providers Care Special Education Classroom Aide Name Role Phone Ayan Clayton MD Primary Care Provider [phone] Reason for Visit * Reason Onset Date Comments Provider Call Back 03/18/2020 Encounter Details Date Type Department Care Team Description 03/18/2020 Telephone Adult Medicine [facility] [address] [place] [address] Ayan Clayton MD [address] [place] [address] Provider Call Back Social History Tobacco Use [...] callers name? Angie Callers relationship to patient? INHALATION THERAPY TEACHER If person calling is not the patient [...] on filedocumented in this encounter Care Teams Special Education Classroom Aide Relationship Specialty Start Date End Date Ayan Clayton MD [address] [place] [address] PCP - General Internal Medicine 09/24/19 documented as of this encounter
--- OUTSIDE RECORDS SUMMARY | 2024-07-25 09:35 | XMS_ITS | Encounter Summary ---
Author Organization [facility] Address [address] [place] [address] Care Team Providers Care Dispute Coordinator Name Role Phone Ayan Clayton MD Primary Care Provider [phone] Encounter Details Date Type Department Care Team Description 07/24/2020 Turning Machine Set Up Operator Report Medical Records [address] [place] [id number] [facility] Social History Tobacco Use Types Packs/Day [...] on filedocumented in this encounter Care Teams Dispute Coordinator Relationship Specialty Start Date End Date Ayan Clayton MD [address] [place], [place] [phone] PCP - General Internal Medicine 09/24/19 documented as of this encounter
--- OUTSIDE RECORDS SUMMARY | 2024-07-25 09:35 | XMS_ITS | Encounter Summary ---
Author Organization [facility] Address [address] [place] [address] Care Team Providers Care Director Of Security Name Role Phone Daniel Mota MD Primary Care Provider Unavail Victor Manuel Yu MD Primary Care Provider Unava ilable Daniel Mota MD Primary Care Provider Unavail Ayan Pulliam MD Primary Care Provider [phone] Victor Manuel Gonzales MD Primary Care Provider Unava ilable Reason for Visit * Reason Comments Encounter Details Date Type Department Care Team Description 11/18/2015 Telephone Podiatry - [place] [address] [place] [address] Skylar Hanna DPM Social History Tobacco Use [...] filedocumented in this encounter Care Teams Director Of Security Relationship Specialty Start Date End Date Daniel Mota MD PCP - General 07/27/1994 12/22/15 Victor Manuel Gonzales MD PCP - General Internal Medicine 07/22/16 10/19/16 Daniel Mota MD PCP - General Internal Medicine 10/20/16 09/23/19 Ayan Clayton MD [address] [place] [address] PCP - General Internal Medicine 09/24/19 Victor Manuel Gonzales MD PCP - General 12/23/15 07/21/16 documented as of this encounter
--- OUTSIDE RECORDS SUMMARY | 2024-07-25 09:35 | XMS_ITS | Encounter Summary ---
Author Organization [facility] Address [address] [place] [address] Care Team Providers Care Monument Setter Name Role Phone Ayan Clayton MD Primary Care Provider [phone] Reason for Visit * Reason Onset Date Comments Faxed Order 01/28/2020 Encounter Details Date Type Department Care Team Description 01/28/2020 Telephone Adult Medicine [facility] [address] [place] [address] [phone] Ayan Clayton MD [address] [place] [address] [phone] Faxed Order Social History Tobacco Use Types [...] on filedocumented in this encounter Care Teams Monument Setter Relationship Specialty Start Date End Date Ayan Clayton MD [address] [place] [id number] PCP - General Internal Medicine 09/24/19 documented as of this encounter
--- OUTSIDE RECORDS SUMMARY | 2024-07-25 09:35 | XMS_ITS | Encounter Summary ---
Author Organization [facility] Address [address] [place] [address] Care Team Providers Care Open Tenter Operator Name Role Phone Ayan Clayton MD Primary Care Provider [phone] Encounter Details Date Type Department Care Team Description 01/23/2020 Temporary Office Assistant Report Medical Records [address] [place] [address] [facility] Medical Social History Tobacco Use Types [...] on filedocumented in this encounter Care Teams Open Tenter Operator Relationship Specialty Start Date End Date Ayan Clayton MD [address] [place], [place] [phone] PCP - General Internal Medicine 09/24/19 documented as of this encounter
--- OUTSIDE RECORDS SUMMARY | 2024-07-25 09:35 | XMS_ITS | Encounter Summary ---
Author Organization [facility] Address [address] [place] [address] Care Team Providers Care Electrical Mechanical Technician Name Role Phone Ayan Clayton MD Primary Care Provider [phone] Encounter Details Date Type Department Care Team Description 05/15/2020 Traffic Safety Administrator Report Medical Records [address] [place] [address] [facility] Social History Tobacco Use Types Packs/Day [...] filedocumented in this encounter Care Teams Electrical Mechanical Technician Relationship Specialty Start Date End Date Ayan Clayton MD [address] [place], [place] [phone] PCP - General Internal Medicine 09/24/19 documented as of this encounter
--- OUTSIDE RECORDS SUMMARY | 2024-07-25 09:35 | XMS_ITS | Encounter Summary ---
Author Organization [facility] Address [address] [place] [address] Care Team Providers Care Wagon Person Name Role Phone Ayan Clayton MD Primary Care Provider [phone] Reason for Referral * Non CRAIG (Routine) - Authorized/Booked Specialty Diagnoses / Procedures Referred By Contac t Referred To Contact Gastroenterology Procedures REFERRAL TO GASTROENTEROLOGY Ayan Clayton MD [address] [place] [address] G[facility]/175 175 [facility] [address] [place] [phone] Referral ID Status Reason Start Date Expiration Date V isits Requested Visits Authorized [id number] Authorized/B ooked 08/18/2020 08/18/2021 1 1 Reason for Visit * Reason Onset Date Comments TEST RESULTS 08/18/2020 Encounter Details Date Type Department Care Team Description 08/18/2020 Pt. Non Urgent Medical Question Adult Medicine [facility] [address] [place] [address] Ayan Clayton MD [address] [place] [address] Constipation, unspecified constipation type (Primary Dx); Hypercalcemia; [...] - 80 ng/mL 08/21/2020 12:39 PM EDT [facility] 08/21/2020 9:22 AM EDT 08/21/2020 9:[address] [facility] - 08/21/2020 12:39 PM EDT Release to patient->Immediate Ayan Clayton MD LAB [facility] * (ABNORMAL) COMPREHENSIVE METABOLIC PANEL (08/21/2020 9:22 AM EDT) GLUCOSE 251(H) 70 - 100 mg/dL 08/21/2020 12:33 PM EDT [facility] Comment:Reference range appl icable to fasting specimens only Blood Urea Nitrogen 19 5 - 25 mg/dL 08/21/2020 12:33 PM EDT [facility] CREAT 1.41(H) 0.5 - 1.1 mg/dL 08/21/2020 12:33 PM EDT [facility] GLOMERULAR FILTRATION RATE 38 08/21/2020 12:33 PM EDT [facility] Comment: If patient is -Swiss, multiply result by 1.21 Chronic Kidney Disease: < 60 ml/min/1.73 square meters Kidney Failure: < 15 ml/min/1.73 square meters NA 140 135 - 145 mEq/L 08/21/2020 12:33 PM EDT [facility] K 4.5 3.5 - 5.5 mmol/L 08/21/2020 12:33 PM EDT [facility] CL 108 96 - 110 mmol/L 08/21/2020 12:33 PM EDT [facility] CARBON DIOXIDE (CO2) 28 21 - 32 mmol/L 08/21/2020 12:33 PM EDT [facility] ANION GAP 4 3 - 11 08/21/2020 12:33 PM EDT [facility] CALCIUM 9.7 8.5 - 10.5 mg/dL 08/21/2020 12:33 PM EDT [facility] Albumin 3.6 3.2 - 5.0 G/dL 08/21/2020 12:33 PM EDT [facility] SGPT 23 10 - 60 U/L 08/21/2020 12:33 PM EDT [facility] TOTAL PROTEIN (TP) 7.7 6.0 - 8.0 G/dL 08/21/2020 12:36 PM EDT [facility] BILIRUBIN TOTAL 0.9 0.0 - 1.4 mg/dL 08/21/2020 12:36 PM EDT [facility] SGOT 32 10 - 42 U/L 08/21/2020 12:36 PM EDT [facility] ALK PHOS 444(H) 42 - 121 U/L 08/21/2020 12:36 PM EDT [facility] 08/21/2020 9:22 AM EDT 08/21/2020 9:23 AM EDT Narrative [facility] - 08/21/2020 12:36 PM EDT Release to patient->Immediate Ayan Clayton MD LAB [facility] * (ABNORMAL) PTH INTACT (08/21/2020 9:21 AM EDT) INTACT PTH 16(L) 18 - 88 pg/mL 08/21/2020 12:40 PM EDT [facility] 08/21/2020 9:21 AM EDT 08/21/2020 9:23 AM EDT Narrative [facility] - 08/21/2020 12:40 PM EDT Release to patient->Immediate Ayan Clayton MD LAB Performing Organization Address [facility] Co de Phone Number [facility] documented in this encounter Visit Diagnoses Diagnosis Constipation, unspecified constipation type- Primary Hypercalcemia Decreased GFR Nonspecific abnormal results of kidney function study Elevated alkaline phosphatase level Other nonspecific abnormal serum enzyme levels Elevated alkaline phosphatase level Other nonspecific abnormal serum enzyme levels Hypercalcemia Decreased GFR Nonspecific abnormal results of kidney function study documented in this encounter Care Teams Wagon Person Relationship Specialty Start Date End Date Ayan Clayton MD [address] [place] [id number] PCP - General Internal Medicine 09/24/19 documented as of this encounter
--- OUTSIDE RECORDS SUMMARY | 2024-07-25 09:35 | XMS_ITS | Encounter Summary ---
Author Organization [facility] Address [address] [place] [address] Care Team Providers Care Inspector Of Weights And Measures Name Role Phone Daniel Mota MD Primary Care Provider Ayan Rubalcava MD Primary Care Provider [phone] Reason for Visit * Reason Onset Date Comments TEST RESULTS 01/04/2017 Encounter Details Date Type Department Care Team Description 01/04/2017 Telephone Adult Medicine [address] [address] Daniel Mota MD TEST RESULTS Social History [...] - 0.80 mg/dL 01/09/2017 12:25 PM EDT [facility] 01/09/2017 11:0 4 AM EDT 01/09/2017 11:04 AM EDT Daniel Mota MD LAB Performing Organization Address [facility] Co de Phone Number [address] * RBC SEDIMENTATION RATE, NON-AUTO (01/09/2017 11:04 AM EDT) ESR 22 0 - 30 mm/hr 01/09/2017 1:05 PM EDT [facility] 01/09/2017 11:0 4 AM EDT 01/09/2017 11:04 AM EDT Daniel Mota MD LAB Performing Organization Address [facility] de Phone Number [address] * (ABNORMAL) CBC (AUTO DIFF PLATELET) (01/09/2017 11:04 AM EDT) WBC 8.8 4.8 - 10.8 x10-3 01/09/2017 11:20 AM EDT [facility] RBC 5.0(H) 3.8 - 4.8 x10-6 01/09/2017 11:20 AM EDT [facility] HGB 14.9 11.5 - 16.0 g/dl 01/09/2017 11:20 AM EDT [facility] HCT 45.3 35 - 47 % 01/09/2017 11:20 AM EDT [facility] MCV 90.4 79 - 98 fl 01/09/2017 11:20 AM EDT [facility] MCH 29.7 27 - 32 pg 01/09/2017 11:20 AM EDT [facility] MCHC 32.9 32 - 37 g/dl 01/09/2017 11:20 AM EDT [facility] RDW 13.6 11 - 15 % 01/09/2017 11:20 AM EDT [facility] PLT COUNT 248 130 - 400 x10-3 01/09/2017 11:20 AM EDT [facility] MEAN PLATELET VOLUME 10.7 7 - 11 fl 01/09/2017 11:20 AM EDT [facility] NEUT % 62.8 41 - 85 % 01/09/2017 11:20 AM EDT [facility] LYMPH % 19.9 15 - 48 % 01/09/2017 11:20 AM EDT [facility] MONO % 7.2 0 - 12 % 01/09/2017 11:20 AM EDT [facility] EOS % 9.0(H) 0 - 5 % 01/09/2017 11:20 AM EDT [facility] BASO % 1.1 0 - 2 % 01/09/2017 11:20 AM EDT [facility] 01/09/2017 11:0 4 AM EDT 01/09/2017 11:04 AM EDT Daniel Mota MD LAB Performing Organization Address City/State/[facility] Co de Phone Number [facility] [address] [facility] * (ABNORMAL) BASIC METABOLIC PANEL (01/09/2017 11:04 AM EDT) [facility] GLUCOSE 123(H) 70 - 100 mg/dL 01/09/2017 12:25 PM EDT [facility] Comment: Reference range applicable to fasting specimens only Based on recommendations from the ADA and AACE, the fasting glucose reference range has been changed to 70-100 mg/dL. ??This change is effective August 10, 2009 BUN 11 5 - 25 mg/dL 01/09/2017 12:25 PM EDT [facility] CREAT 0.8 0.7 - 1.5 mg/dL [...] Daniel Mota MD LAB Performing Organization Address City/State/[facility] Co de Phone Number [facility] [address] [facility] documented in this encounter Visit Diagnoses Diagnosis Neck pain- Primary Cervicalgia documented in this encounter Care Teams Inspector Of Weights And Measures Relationship Specialty Start Date End Date Daniel Mota MD PCP - General Internal Medicine 10/20/16 09/23/19 Ayan Clayton MD [address] [place] [id number] PCP - General Internal Medicine 09/24/19 documented as of this encounter
--- OUTSIDE RECORDS SUMMARY | 2024-07-25 09:35 | XMS_ITS | Encounter Summary ---
Author Organization [facility] Address [address] [place] [address] Care Team Providers Care Zinc Miner Blasting Name Role Phone Ayan Clayton MD Primary Care Provider [phone] Encounter Details Date Type Department Care Team Description 05/25/2020 Old Medical Records Medical Records [address] [place] [address] Abstract, Provider Social History Tobacco Use Types [...] on filedocumented in this encounter Care Teams Zinc Miner Blasting Relationship Specialty Start Date End Date Ayan Clayton MD [address] [place], [place] [phone] PCP - General Internal Medicine 09/24/19 documented as of this encounter
--- OUTSIDE RECORDS SUMMARY | 2024-07-25 09:35 | XMS_ITS | Encounter Summary ---
Author Organization [facility] Address [address] [place] [address] Care Team Providers Care Radiator Tester Name Role Phone Ayan Clayton MD Primary Care Provider [phone] Encounter Details Date Type Department Care Team Description 05/07/2020 Telephone General Surgery - [place] [address] [facility] [address] [place] [address] Torrey Moreno MD [address] [place] [address] [address] [place], [place] [phone] Social History Tobacco Use Types Packs/Day Years [...] on filedocumented in this encounter Care Teams Radiator Tester Relationship Specialty Start Date End Date Ayan Clayton MD [address] [place] [address] PCP - General Internal Medicine 09/24/19 documented as of this encounter
--- OUTSIDE RECORDS SUMMARY | 2024-07-25 09:35 | XMS_ITS | Encounter Summary ---
Author Organization [facility] Address [address] [place] [address] Care Team Providers Care Warehouse Delivery Manager Name Role Phone Ayan Clayton MD Primary Care Provider Reason for Visit * Reason Onset Date Comments Faxed Order 09/09/2020 Encounter Details Date Type Department Care Team Description 09/09/2020 Telephone Adult Medicine [facility] [address] [place] [address] [phone] Ayan Clayton MD [address] [place] [address] [phone] Faxed Order Social History Tobacco Use Types [...] AM EDT More faxed orders received from [employer], placed in Ayan mahmood * Telephone Encounter - Rosa Latham - 09/09/2020 10:23 AM EDT Physician order for Dr. Ayan Clayton's signature documented in this encounter Plan of Treatment Not on file documented as of this encounter Visit Diagnoses Not on filedocumented in this encounter Care Teams Warehouse Delivery Manager Relationship Specialty Start Date End Date Ayan Clayton MD [address] [place] [id number] PCP - General Internal Medicine 09/24/19 documented as of this encounter
--- OUTSIDE RECORDS SUMMARY | 2024-07-25 09:35 | XMS_ITS | Encounter Summary ---
Author Organization [facility] Address [address] [place] [address] Care Team Providers Care Backhaul Driver Name Role Phone Ayan Clayton MD Primary Care Provider Encounter Details Date Type Department Care Team Description 09/04/2020 Telephone Gastroenterology - [place] 175 [facility] [address] [place] [address] Jerrod Joe PA-C Social History [...] on filedocumented in this encounter Care Teams Backhaul Driver Relationship Specialty Start Date End Date Ayan Clayton MD [address] [place] [phone] PCP - General Internal Medicine 09/24/19 documented as of this encounter
--- OUTSIDE RECORDS SUMMARY | 2024-07-25 09:35 | XMS_ITS | Encounter Summary ---
Author Organization [facility] Address [address] [place] [address] Care Team Providers Care Fashion Show Director Name Role Phone Ayan Clayton MD Primary Care Provider [phone] Reason for Referral * EXTERNAL (Routine) - Authorized/Booked Specialty Diagnoses / Procedures Referred By Contac t Referred To Contact Endocrinology Diagnoses Low serum parathyroid hormone (PTH) Procedures REFERRAL TO ENDOCRINOLOGY Ayan Clayton MD [address] [place] [address] [facility] Referral ID Status Reason Start Date Expiration Date V isits Requested Visits Authorized [id number] Authorized/B ooked 08/27/2020 12/22/2020 1 1 Encounter Details Date Type Department Care Team Description 08/27/2020 Telephone Adult Medicine [address] [id number] Ayan Clayton MD [address] [place] [address] [phone] Social History Tobacco Use Types Packs/Day Years [...] documented as of this encounter Results * SONO ABDOMEN COMPLETE (09/21/2020 10:50 AM EDT) 09/21/2020 1:55 PM EDT Narrative [place] OTHER EXTERNAL - 09/21/2020 2:00 PM EDT Abdominal ultrasound. History increased alkaline phosphatase. Gallbladder is surgically absent. ??There is marked dilatation of the common biliary duct measuring 1.6 cm. ??Liver is enlarged measuring 20 cm in long axis. ??It revealed coarse increased echogenicity which could be due to steatosis or hepatocellular disease. ??There is a small cyst near the diaphragmatic dome measuring 0.7 x 0.8 x 1.1 cm. ??There is splenomegaly, spleen measures 16.4 cm in long axis. ??There is prominence of the pancreatic duct which measures 3 mm in the body. ??Pancreatic tail is obscured by the bowel gas artifact. ??There is normal flow in the portal vein. ??Visualized portions of the IVC and abdominal aorta are unremarkable. Right kidney measures 10.7 cm. ??There are numerous renal calculi in the midpole with combined measurements of 1.9 x 1 cm there is additional stone measuring 0.7 x 0.6 cm in the midpole. ?? There is no hydronephrosis. Left kidney measures 11 cm. ??There is scarring in the upper pole. ??There is small cortical cyst measuring 0.8 x 0.6 x 0.7 cm in the upper pole. ??There is nonobstructing stone in the midpole. ??There is no ascites. CONCLUSIONS: Hepatosplenomegaly. ??Abnormal echotexture of the liver which could be due to steatosis or hepatocellular disease. ??Marked dilatation of the common biliary duct, prominence of the pancreatic duct. ??Bilateral renal stones. ??Scarring in the upper pole of the left kidney. ??Small cyst in the left kidney. ??MRI/MRCP examination of the abdomen may be considered for further assessment. Procedure Note Carmina Santos MD - 09/21/2020 Abdominal ultrasound. History increased alkaline phosphatase. Gallbladder is surgically absent. There is marked dilatation of thecommon biliary duct measuring 1.6 cm. Liver is enlarged measuring 20 cm in long axis. Itrevealed coarse increased echogenicity which could be due to steatosis or hepatocellulardisease. There is a small cyst near the diaphragmatic dome measuring 0.7 x 0.8 x 1.1 cm.There is splenomegaly, spleen measures 16.4 cm in long axis. There is prominence of thepancreatic duct which measures 3 mm in the body. Pancreatic tail is obscured by the bowel gasartifact. There is normal flow in the portal vein. Visualized portions of the IVC andabdominal aorta are unremarkable. Right kidney measures 10.7 cm. There are numerous renal calculi in themidpole with combined measurements of 1.9 x 1 cm there is additional stone measuring 0.7 x 0.6cm in the midpole. There is no hydronephrosis. Left kidney measures 11 cm. There is scarring in the upper pole. Thereis small cortical cyst measuring 0.8 x 0.6 x 0.7 cm in the upper pole. There is nonobstructingstone in the midpole. There is no ascites. CONCLUSIONS: Hepatosplenomegaly. Abnormal echotexture of the liver whichcould be due to steatosis or hepatocellular disease. Marked dilatation of the commonbiliary duct, prominence of the pancreatic duct. Bilateral renal stones. Scarring in the upperpole of the left kidney. Small cyst in the left kidney. MRI/MRCP examination of theabdomen may be considered for further assessment. Ayan Clayton MD ULTRASOUND [place] OTHER EXTERNAL documented in this encounter Visit Diagnoses Diagnosis Low serum parathyroid hormone (PTH)- Primary Elevated LFTs Other abnormal blood chemistry Elevated alkaline phosphatase level Other nonspecific abnormal serum enzyme levels Elevated LFTs Other abnormal blood chemistry Elevated alkaline phosphatase level Other nonspecific abnormal serum enzyme levels documented in this encounter Care Teams Fashion Show Director Relationship Specialty Start Date End Date Ayan Clayton MD [address] [place] [address] PCP - General Internal Medicine 09/24/19 documented as of this encounter
--- OUTSIDE RECORDS SUMMARY | 2024-07-25 09:35 | XMS_ITS | Encounter Summary ---
Author Organization [facility] Address [address] [place] [address] Care Team Providers Care Merchant Miller Name Role Phone Ayan Clayton MD Primary Care Provider [phone] Encounter Details Date Type Department Care Team Description 10/08/2020 Dental Treatment Coordinator Report Medical Records [address] [place] [address] Skylar Hanna DPM Social History Tobacco Use [...] on filedocumented in this encounter Care Teams Merchant Miller Relationship Specialty Start Date End Date Ayan Clayton MD [address] [place], [place] [phone] PCP - General Internal Medicine 09/24/19 documented as of this encounter
--- OUTSIDE RECORDS SUMMARY | 2024-07-25 09:36 | XMS_ITS | Encounter Summary ---
Author Organization [facility] Address [address] [place] [address] Care Team Providers Care Morning Babysitter Name Role Phone Daniel Mota MD Primary Care Provider Ayan Rubalcava MD Primary Care Provider [phone] Encounter Details Date Type Department Care Team Description 04/24/2017 Pt. Non Urgent Medic al Question Adult Medicine [address] [address] Daniel Mota MD Social History Tobacco Use [...] on filedocumented in this encounter Care Teams Morning Babysitter Relationship Specialty Start Date End Date Daniel Mota MD PCP - General Internal Medicine 10/20/16 09/23/19 Ayan Clayton MD [address] [place] [address] PCP - General Internal Medicine 09/24/19 documented as of this encounter
--- OUTSIDE RECORDS SUMMARY | 2024-07-25 09:36 | XMS_ITS | Encounter Summary ---
Author Organization [facility] Address [address] [place] [address] Care Team Providers Care Channel Installer Name Role Phone Daniel Mota MD Primary Care Provider Unavail Victor Manuel Yu MD Primary Care Provider Unava ilable Daniel Mota MD Primary Care Provider Unavail Ayan Pulliam MD Primary Care Provider [phone] Victor Manuel Gonzales MD Primary Care Provider Unava ilmaximino Encounter Details Date Type Department Care Team Description 05/04/2010 Athletic Instructor Report Medical Records [address] [place] [address] Adolfo Hill MD Social History Tobacco Use [...] on filedocumented in this encounter Care Teams Channel Installer Relationship Specialty Start Date End Date Daniel Mota MD PCP - General 07/27/1994 12/22/15 Victor Manuel Gonzales MD PCP - General Internal Medicine 07/22/16 10/19/16 Daniel Mota MD PCP - General Internal Medicine 10/20/16 09/23/19 Ayan Clayton MD [address] [place] [address] PCP - General Internal Medicine 09/24/19 Victor Manuel Gonzales MD PCP - General 12/23/15 07/21/16 documented as of this encounter
--- OUTSIDE RECORDS SUMMARY | 2024-07-25 09:36 | XMS_ITS | Encounter Summary ---
Author Organization [facility] Address [address] [place] [address] Care Team Providers Care Museum Security Chief Name Role Phone Daniel Mota MD Primary Care Provider Unavail Victor Manuel Yu MD Primary Care Provider Unava ilable Daniel Mota MD Primary Care Provider Unavail Ayan Pulliam MD Primary Care Provider [phone] Victor Manuel Gonzales MD Primary Care Provider Unava ilmaximino Encounter Details Date Type Department Care Team Description 02/24/2011 Civil Preparedness Training Officer Report Medical Records [address] [place] [address] Elgin Russell MD Social History Tobacco Use [...] on filedocumented in this encounter Care Teams Museum Security Chief Relationship Specialty Start Date End Date Daniel Mota MD PCP - General 07/27/1994 12/22/15 Victor Manuel Gonzales MD PCP - General Internal Medicine 07/22/16 10/19/16 Daniel Mota MD PCP - General Internal Medicine 10/20/16 09/23/19 Ayan Clayton MD [address] [place] [address] PCP - General Internal Medicine 09/24/19 Victor Manuel Gonzales MD PCP - General 12/23/15 07/21/16 documented as of this encounter
--- OUTSIDE RECORDS SUMMARY | 2024-07-25 09:36 | XMS_ITS | Encounter Summary ---
Author Organization [facility] Address [address] [place] [address] Care Team Providers Care Booking Police Officer Name Role Phone Daniel Mota MD Primary Care Provider Ayan Rubalcava MD Primary Care Provider [phone] Reason for Visit * Reason Onset Date Comments Faxed Order 12/06/2016 [facility] Encounter Details Date Type Department Care Team Description 12/06/2016 Telephone Adult Medicine [address] [address] Daniel Mota MD Faxed Order ([facility]) Social History Tobacco Use Types Packs/Day [...] 12/06/2016 3:04 PM EDT Faxed order from [facility], please sign and fax documented in this encounter Plan of Treatment Not on file documented as of this encounter Visit Diagnoses Not on filedocumented in this encounter Care Teams Booking Police Officer Relationship Specialty Start Date End Date Daniel Mota MD PCP - General Internal Medicine 10/20/16 09/23/19 Ayan Clayton MD [address] [place] [address] PCP - General Internal Medicine 09/24/19 documented as of this encounter
--- OUTSIDE RECORDS SUMMARY | 2024-07-25 09:36 | XMS_ITS | Encounter Summary ---
Author Organization [facility] Address [address] [place] [address] Care Team Providers Care Delivery Technician Name Role Phone Daniel Mota MD Primary Care Provider Unavail Victor Manuel Yu MD Primary Care Provider Unava ilable Daniel Mota MD Primary Care Provider Unavail Ayan Pulliam MD Primary Care Provider [phone] Victor Manuel Gonzales MD Primary Care Provider Justinava jaxson Encounter Details Date Type Department Care Team Description 05/15/2012 Controlled Substance Plan Medical Records [address] [place] [address] Abstract, Provider Social History Tobacco Use Types [...] on filedocumented in this encounter Care Teams Delivery Technician Relationship Specialty Start Date End Date Daniel Mota MD PCP - General 07/27/1994 12/22/15 Victor Manuel Gonzales MD PCP - General Internal Medicine 07/22/16 10/19/16 Daniel Mota MD PCP - General Internal Medicine 10/20/16 09/23/19 Ayan Clayton MD [address] [place] [address] PCP - General Internal Medicine 09/24/19 Victor Manuel Gonzales MD PCP - General 12/23/15 07/21/16 documented as of this encounter
--- OUTSIDE RECORDS SUMMARY | 2024-07-25 09:36 | XMS_ITS | Encounter Summary ---
Author Organization [facility] Address [address] [place] [address] Care Team Providers Care Chemical Manager Name Role Phone Ayan Clayton MD Primary Care Provider [phone] Encounter Details Date Type Department Care Team Description 02/15/2021 Orders Only Medical Records [address] [place] [address] Ruth Mitchell MD [address] [place] [address] Social History Tobacco Use Types Packs/Day Years [...] filedocumented in this encounter Care Teams Chemical Manager Relationship Specialty Start Date End Date Ayan Clayton MD [address] [place] [address] PCP - General Internal Medicine 09/24/19 documented as of this encounter
--- OUTSIDE RECORDS SUMMARY | 2024-07-25 09:36 | XMS_ITS | Encounter Summary ---
Author Organization [facility] Address [address] [place] [address] Care Team Providers Care Cafe Lead Name Role Phone Daniel Mota MD Primary Care Provider Unavail Victor Manuel Yu MD Primary Care Provider Unava ilable Daniel Mota MD Primary Care Provider Unavail Ayan Pulliam MD Primary Care Provider [phone] Victor Manuel Gonzales MD Primary Care Provider Unava ilmaximino Encounter Details Date Type Department Care Team Description 05/02/2011 Social Media Content Specialist Report Medical Records [address] [place] [address] Elgin Russell MD Social History Tobacco Use [...] on filedocumented in this encounter Care Teams Cafe Lead Relationship Specialty Start Date End Date Daniel Mota MD PCP - General 07/27/1994 12/22/15 Victor Manuel Gonzales MD PCP - General Internal Medicine 07/22/16 10/19/16 Daniel Mota MD PCP - General Internal Medicine 10/20/16 09/23/19 Ayan Clayton MD [address] [place] [address] PCP - General Internal Medicine 09/24/19 Victor Manuel Gonzales MD PCP - General 12/23/15 07/21/16 documented as of this encounter
--- OUTSIDE RECORDS SUMMARY | 2024-07-25 09:36 | XMS_ITS | Encounter Summary ---
Author Organization [facility] Address [address] [place] [address] Care Team Providers Care Slurry Mixer Name Role Phone Ayan Clayton MD Primary Care Provider [phone] Encounter Details Date Type Department Care Team Description 04/21/2021 Analytical Research Chemist Report Medical Records [address] [place] [address] Skylar Hanna DPM Social History Tobacco Use [...] on filedocumented in this encounter Care Teams Slurry Mixer Relationship Specialty Start Date End Date Ayan Clayton MD [address] [place], [place] [phone] PCP - General Internal Medicine 09/24/19 documented as of this encounter
--- OUTSIDE RECORDS SUMMARY | 2024-07-25 09:36 | XMS_ITS | Encounter Summary ---
Author Organization [facility] Address [address] [place] [address] Care Team Providers Care Copy Coordinator Name Role Phone Ayan Clayton MD Primary Care Provider [phone] Encounter Details Date Type Department Care Team Description 12/05/2020 Program Instructor Report Medical Records [address] [place], [place] [phone] [place] [address] [place] [phone] Social History Tobacco Use Types Packs/Day Years [...] on filedocumented in this encounter Care Teams Copy Coordinator Relationship Specialty Start Date End Date Ayan Clayton MD [address] [place] [address] PCP - General Internal Medicine 09/24/19 documented as of this encounter
--- OUTSIDE RECORDS SUMMARY | 2024-07-25 09:36 | XMS_ITS | Encounter Summary ---
Author Organization [facility] Address [address] [place] [address] Care Team Providers Care Ldr Rn Name Role Phone Ayan Clayton MD Primary Care Provider [phone] Encounter Details Date Type Department Care Team Description 04/05/2021 Limnologist Report Medical Records [address] [place] [address] Skylar Hanna DPM Social History Tobacco Use [...] on filedocumented in this encounter Care Teams Ldr Rn Relationship Specialty Start Date End Date Ayan Clayton MD [address] [place], [place] [phone] PCP - General Internal Medicine 09/24/19 documented as of this encounter
--- OUTSIDE RECORDS SUMMARY | 2024-07-25 09:36 | XMS_ITS | Encounter Summary ---
Author Organization [facility] Address [address] [place] [address] Care Team Providers Care Channel Marketing Manager Name Role Phone Daniel Mota MD Primary Care Provider Unavail Victor Manuel Yu MD Primary Care Provider Unava ilable Daniel Mota MD Primary Care Provider Unavail Ayan Pulliam MD Primary Care Provider [phone] Victor Manuel Gonzales MD Primary Care Provider Unava ilmaximino Encounter Details Date Type Department Care Team Description 10/13/2010 Wood Router Report Medical Records [address] [place] [address] Marcela Singh [address] [place] [address] Social History Tobacco Use Types Packs/Day Years [...] filedocumented in this encounter Care Teams Channel Marketing Manager Relationship Specialty Start Date End Date Daniel Mota MD PCP - General 07/27/1994 12/22/15 Victor Manuel Gonzales MD PCP - General Internal Medicine 07/22/16 10/19/16 Daniel Mota MD PCP - General Internal Medicine 10/20/16 09/23/19 Ayan Clayton MD [address] [place] [address] PCP - General Internal Medicine 09/24/19 Victor Manuel Gonzales MD PCP - General 12/23/15 07/21/16 documented as of this encounter
--- OUTSIDE RECORDS SUMMARY | 2024-07-25 09:36 | XMS_ITS | Encounter Summary ---
Author Organization [facility] Address [address] [place] [address] Care Team Providers Care Manager Commercial Real Estate Name Role Phone Daniel Mota MD Primary Care Provider Unavail able Ayan Clayton MD Primary Care Provider [phone] Encounter Details Date Type Department Care Team Description 03/05/2018 Mud Worker Report Medical Records [address] Social History Tobacco Use Types Packs/Day [...] filedocumented in this encounter Care Teams Manager Commercial Real Estate Relationship Specialty Start Date End Date Daniel Mota MD PCP - General Internal Medicine 10/20/16 09/23/19 Ayan Clayton MD [address] [place] [address] PCP - General Internal Medicine 09/24/19 documented as of this encounter
--- OUTSIDE RECORDS SUMMARY | 2024-07-25 09:36 | XMS_ITS | Encounter Summary ---
Author Organization [facility] Address [address] [place] [address] Care Team Providers Care Watch Dial Printer Name Role Phone Ayan Clayton MD Primary Care Provider [phone] Encounter Details Date Type Department Care Team (Late Contact Info) Description 05/08/2024 Lab Requisition [facility] - Main Lab [address] [facility] [place] [address] Niels Retana MD [address] [place] [address] [address] [place], [phone] Diarrhea, unspecified Social History Tobacco Use [...] 10:00 AM EDT Appointment Radiology Department - [address] [phone] 12/05/2024 3:45 PM EDT Office Visit Nephrology - [address] [place] [address] Vega Navarro MD [address] [facility] [address] [place] [phone] 02/04/2025 9:00 AM EST Office Visit Bariatric Surgery - [place] [address] [facility] [address] [place] [phone] Torrey Moreno MD [address] [facility] [address] [place] [address] 06/12/2025 9:10 AM EDT Office Visit Pulmonolgy - [place] [address] [facility] [address] [place] [phone] Jil Freeman NP [address] [facility] [address] [place] [address] documented as of this encounter Procedures Procedure Name Priority Date/Time Associated Diagnosis Comments GASTROINTESTINAL PATHOGENS BY PCR Routine 05/08/2024 6:00 AM EST Diarrhea, unspecified CLOSTRIDIUM DIFFICILE TOXIN Routine 05/08/2024 6:00 AM EST Diarrhea, unspecified documented in this encounter Results * Clostridium difficile toxin (05/08/2024 6:00 AM EST) Clostridium difficile GDH Antigen Negative Negative 05/08/2024 12:02 PM EST [facility] C difficile Toxins A+B, EIA Negative Negative 05/08/2024 12:02 PM EST [facility] Comment:NEGATIVE FOR TOXIN P RODUCING CLOSTRIDIOIDES DIFFICILE, NO ADDITIONAL TESTING IS NECESSARY. Stool Rectum structure / Unknown 05/08/2024 6:00 AM EST 05/08/2024 11:43 AM EST us Niels Retana MD LAB MICROBIOLOGY - GENERAL ORDER CHELA Final Result [facility] [address] [place] [address], * (ABNORMAL) Gastrointestinal pathogens molecular study (05/08/2024 6:00 AM EST) Campylobacter Detection by PCR Not Detected Not Detected LAB MICROBIOLOGY METHOD 5 12:46 PM EST [facility] Plesiomonas shigelloides Detection by PCR Not Detected Not Detected LAB MICROBIOLOGY METHOD 5 12:46 PM EST [facility] Salmonella Detection by PCR Not Detected Not Detected LAB MICROBIOLOGY METHOD 5 12:46 PM EST [facility] Vibrio Detection by PCR Not Detected Not Detected LAB MICROBIOLOGY METHOD 5 12:46 PM [facility] Vibrio cholerae Detection by PCR Not Detected Not Detected LAB MICROBIOLOGY METHOD 5 12:46 PM EST [facility] Yersinia enterocolitica Detection by PCR Not Detected Not Detected LAB MICROBIOLOGY METHOD 5 12:46 PM EST [facility] Enteroaggregative E coli EAEC Detection by PCR Not Detected Not Detected LAB MICROBIOLOGY METHOD 5 12:46 PM [facility] Enteropathogenic E coli EPEC Detection Not Detected Not Detected LAB MICROBIOLOGY METHOD 5 12:46 PM [facility] Enterotoxigenic E coli ETEC LTST Detection Not Detected Not Detected LAB MICROBIOLOGY METHOD 5 12:46 PM [facility] Shiga-like toxin producing E coli STEC STX1 STX2 Det Not Detected Not Detected LAB MICROBIOLOGY METHOD 5 12:46 PM EST [facility] Shigella Enteroinvasive E coli EIEC Detection Not Detected Not Detected LAB MICROBIOLOGY METHOD 5 12:46 PM [facility] Cryptosporidium Detection by PCR Not Detected Not Detected LAB MICROBIOLOGY METHOD 5 12:46 PM EST [facility] Cyclospora cayetanensis Detection by PCR Not Detected Not Detected LAB MICROBIOLOGY METHOD 5 12:46 PM [facility] Entamoeba histolytica Detection by PCR Not Detected Not Detected LAB MICROBIOLOGY METHOD 5 12:46 PM [facility] Giardia lamblia Detection by PCR Not Detected Not Detected LAB MICROBIOLOGY METHOD 5 12:46 PM [facility] Adenovirus F 40 41 Detection by PCR Not Detected Not Detected LAB MICROBIOLOGY METHOD 5 12:46 PM [facility] Astrovirus Detection by PCR Not Detected Not Detected LAB MICROBIOLOGY METHOD 5 12:46 PM [facility] Norovirus GI GII Detection by PCR Detected(A ) Not Detected LAB MICROBIOLOGY METHOD 5 12:46 PM [facility] Sapovirus Detection by PCR Not Detected Not Detected LAB MICROBIOLOGY METHOD 5 12:46 PM [facility] Rotavirus A Detection by PCR Not Detected Not Detected LAB MICROBIOLOGY METHOD 5 12:46 PM [facility] Stool Rectum structure / Unknown 05/08/2024 6:00 AM EST 05/08/2024 10:34 AM [facility] - 05/08/2024 12:46 PM EST PCR [...] MICROBIOLOGY - GENERAL ORDER CHELA Final Result [facility] [address] [place] [address], documented in this encounter Visit Diagnoses Diagnosis Diarrhea, unspecified Encounter for screening mammogram for breast cancer documented in this encounter Additional Health Concerns Infection Onset Date Last Indicated Resolved Time Norovirus 05/08/2024 05/08/2024 documented as of this encounter Care Teams Watch Dial Printer Relationship Specialty Start Date End Date Ayan Clayton MD [address] [place] [address] PCP - General Internal Medicine 07/11/24 documented as of this encounter
--- OUTSIDE RECORDS SUMMARY | 2024-07-25 09:36 | XMS_ITS | Encounter Summary ---
Author Organization [facility] Address [address] [place] [address] Care Team Providers Care Wares Sorter Name Role Phone Victor Manuel Gonzales MD Primary Care Provider Daniel Longoria MD Primary Care Provider [facility] Ayan Clayton MD Primary Care Provider [phone] Encounter Details Date Type Department Care Team Description 09/09/2016 Business Doc Medical Records [address] [place] [address] Abstract, Provider Social History Tobacco Use Types [...] on filedocumented in this encounter Care Teams Wares Sorter Relationship Specialty Start Date End Date Victor Manuel Gonzales MD PCP - General Internal Medicine 07/22/16 10/19/16 Daniel Mota MD PCP - General Internal Medicine 10/20/16 09/23/19 Ayan Clayton MD [address] [place] [address] PCP - General Internal Medicine 09/24/19 documented as of this encounter
--- OUTSIDE RECORDS SUMMARY | 2024-07-25 09:36 | XMS_ITS | Encounter Summary ---
Author Organization [facility] Address [address] [place] [address] Care Team Providers Care Banner Painter Name Role Phone Ayan Clayton MD Primary Care Provider [phone] Encounter Details Date Type Department Care Team (Late Contact Info) Description 05/06/2024 Lab Requisition [facility] - Main Lab [address] [facility] [place] [address] Niels Retana MD [address] [place] [address] [address] [place], [address] Other custodial (current) drug therapy Social History Tobacco Use [...] 10:00 AM EDT Appointment Radiology Department - [address] [address] 12/05/2024 3:45 PM EDT Office Visit Nephrology - [place] [address] [place] [address] Vega Navarro MD [address] [facility] [address] [place] [phone] 02/04/2025 9:00 AM EST Office Visit Bariatric Surgery - [place] [address] [facility] [address] [place] [phone] Torrey Moreno MD 175 [facility] [address] [place] [address] 06/12/2025 9:10 AM EDT Office Visit Pulmonolgy - [place] [address] [facility] [address] [place] [phone] Jil Freeman NP 175 [facility] [address] [place] [address] documented as of this encounter Procedures Procedure Name Priority Date/Time Associated Diagnosis Comments COMPLETE BLOOD COUNT Routine 05/06/2024 6:41 AM EST Other custodial (current) drug therapy COMPREHENSIVE METABOLIC PANEL Routine 05/06/2024 6:41 AM EST Other custodial (current) drug therapy documented in this encounter Results * (ABNORMAL) Comprehensive metabolic panel (05/06/2024 6:41 AM EST) Sodium 141 133 - 145 mmol/L LAB CHEMISTRY METHOD 05/06/2024 2:03 PM EST [facility] Potassium 3.6 3.5 - 5.5 mmol/L LAB CHEMISTRY METHOD 05/06/2024 2:03 PM [facility] Chloride 107 96 - 110 mmol/L LAB CHEMISTRY METHOD 05/06/2024 2:03 PM [facility] CO2 26 21 - 32 mmol/L LAB CHEMISTRY METHOD 05/06/2024 2:03 PM [facility] Anion Gap 8 3 - 11 LAB CHEMISTRY METHOD 05/06/2024 2:03 PM [facility] Glucose 108(H) 70 - 100 mg/dL LAB CHEMISTRY METHOD 05/06/2024 2:03 PM [facility] BUN 14 5 - 25 mg/dL LAB CHEMISTRY METHOD 05/06/2024 2:03 PM [facility] Creatinine 0.85 0.50 - 1.10 mg/dL LAB CHEMISTRY METHOD 05/06/2024 2:03 PM [facility] eGFR 75 >=60 mL/min/1. 73m2 LAB CHEMISTRY METHOD 05/06/2024 2:03 PM [facility] Comment:Calculation based on the??Chronic Kidney Disease Epidemiology Collaboration (CKD-EPI) equation refit??without adjustment for race. BUN/Creatinine Ratio 16.5 LAB CHEMISTRY METHOD 05/06/2024 2:03 PM [facility] Calcium 8.7 8.5 - 10.5 mg/dL LAB CHEMISTRY METHOD 05/06/2024 2:03 PM [facility] AST (SGOT) 35 10 - 42 unit/L LAB CHEMISTRY METHOD 05/06/2024 2:03 PM [facility] ALT (SGPT) 37 10 - 60 unit/L LAB CHEMISTRY METHOD 05/06/2024 2:03 PM [facility] Alkaline Phosphatase 403(H) 42 - 121 unit/L LAB CHEMISTRY METHOD 05/06/2024 2:03 PM [facility] Total Protein 5.8(L) 6.0 - 8.0 g/dL LAB CHEMISTRY METHOD 05/06/2024 2:03 PM [facility] Albumin 2.4(L) 3.2 - 5.0 g/dL LAB CHEMISTRY METHOD 05/06/2024 2:03 PM [facility] Total Bilirubin 0.5 0.0 - 1.4 mg/dL LAB CHEMISTRY METHOD 05/06/2024 2:03 PM [facility] Blood Venous blood specimen / Unknown Venipuncture / Unknown 05/06/2024 6:41 AM EST 05/06/2024 12:07 PM EST us Niels Retana MD LAB BLOOD ORDERABLES Final Resul t [facility] [address] [place] [address], * (ABNORMAL) Complete blood count (05/06/2024 6:41 AM EST) WBC 12.0(H) 4.8 - 10.8 K/mcL LAB HEMETOLOGY METHOD 05/06/2024 1:39 PM [facility] RBC 3.60(L) 3.80 - 4.80 M/mcL LAB HEMETOLOGY METHOD 05/06/2024 1:39 PM [facility] Hemoglobin 10.1(L) 11.5 - 16.0 g/dL LAB HEMETOLOGY METHOD 05/06/2024 1:39 PM [facility] Hematocrit 32.4(L) 35.0 - 47.0 % LAB HEMETOLOGY METHOD 05/06/2024 1:39 PM [facility] MCV 90.5 79.0 - 98.0 FL LAB HEMETOLOGY METHOD 05/06/2024 1:39 PM [facility] MCH 28.2 27.0 - 32.0 pcg LAB HEMETOLOGY METHOD 05/06/2024 1:39 PM [facility] MCHC 31.2(L) 32.0 - 37.0 g/dL LAB HEMETOLOGY METHOD 05/06/2024 1:39 PM [facility] RDW 15.0 11.0 - 15.0 % LAB HEMETOLOGY METHOD 05/06/2024 1:39 PM [facility] Platelets 349 130 - 400 K/mcL LAB HEMETOLOGY METHOD 05/06/2024 1:39 PM EST [facility] MPV 10.1 7.0 - 11.0 FL LAB HEMETOLOGY METHOD 05/06/2024 1:39 PM EST [facility] NRBC 0.0 <1.0 % LAB HEMETOLOGY METHOD 05/06/2024 1:39 PM EST [facility] NRBC Absolute 0.00 <0.10 K/mcL LAB HEMETOLOGY METHOD 05/06/2024 1:39 PM EST [facility] Blood Venous blood specimen / Unknown Venipuncture / Unknown 05/06/2024 6:41 AM EST 05/06/2024 12:07 PM EST us Niels Retana MD LAB BLOOD ORDERABLES Final Resul t [facility] [address] [place] [address], documented in this encounter Visit Diagnoses Diagnosis Other custodial (current) drug therapy Encounter for screening mammogram for breast cancer documented in this encounter Additional Health Concerns Infection Onset Date Last Indicated Resolved Time Norovirus 05/08/2024 05/08/2024 documented as of this encounter Care Teams Banner Painter Relationship Specialty Start Date End Date Ayan Clayton MD [address] [place] [id number] PCP - General Internal Medicine 07/11/24 documented as of this encounter
--- OUTSIDE RECORDS SUMMARY | 2024-07-25 09:36 | XMS_ITS | Encounter Summary ---
Author Organization [facility] Address [address] [place] [address] Care Team Providers Care Rock Mason Apprentice Name Role Phone Daniel Mota MD Primary Care Provider Unavail Victor Manuel Yu MD Primary Care Provider Unava ilable Daniel Mota MD Primary Care Provider Unavail Ayan Pulliam MD Primary Care Provider [phone] Victor Manuel Gonzales MD Primary Care Provider Unava ilmaximino Encounter Details Date Type Department Care Team Description 12/27/2010 [employer] Cloud Consulting Architect Report Medical Records [address] [place] [address] Elgin Russell MD Social History Tobacco Use [...] on filedocumented in this encounter Care Teams Rock Mason Apprentice Relationship Specialty Start Date End Date Daniel Mota MD PCP - General 07/27/1994 12/22/15 Victor Manuel Gonzales MD PCP - General Internal Medicine 07/22/16 10/19/16 Daniel Mota MD PCP - General Internal Medicine 10/20/16 09/23/19 Ayan Clayton MD [address] [place] [id number] PCP - General Internal Medicine 09/24/19 Victor Manuel Gonzales MD PCP - General 12/23/15 07/21/16 documented as of this encounter
--- OUTSIDE RECORDS SUMMARY | 2024-07-25 09:36 | XMS_ITS | Encounter Summary ---
Author Organization [facility] Address [address] [place] [address] Care Team Providers Care Press Cleaner Name Role Phone Ayan Clayton MD Primary Care Provider [phone] Encounter Details Date Type Department Care Team Description 03/10/2021 Office Technologist Report Medical Records [address] [place] [address] Rell Leavitt Social History Tobacco Use Types [...] filedocumented in this encounter Care Teams Press Cleaner Relationship Specialty Start Date End Date Ayan Clayton MD [address] [place], [place] [phone] PCP - General Internal Medicine 09/24/19 documented as of this encounter
--- OUTSIDE RECORDS SUMMARY | 2024-07-25 09:36 | XMS_ITS | Encounter Summary ---
Author Organization [facility] Address [address] [place] [address] Care Team Providers Care Telephone Recorder Name Role Phone Ayan Clayton MD Primary Care Provider [phone] Encounter Details Date Type Department Care Team Description 02/27/2023 Milliner Helper Report Medical Records [address] [place] [address] Fernie Ruiz MD Social History Tobacco Use [...] on filedocumented in this encounter Care Teams Telephone Recorder Relationship Specialty Start Date End Date Ayan Clayton MD [address] [place] [address] PCP - General Internal Medicine 09/24/19 documented as of this encounter
--- OUTSIDE RECORDS SUMMARY | 2024-07-25 09:36 | XMS_ITS | Encounter Summary ---
Author Organization [facility] Address [address] [place] [address] Care Team Providers Care Manager Risk Management Name Role Phone Daniel Mota MD Primary Care Provider Unavail Victor Manuel Yu MD Primary Care Provider Unava ilable Daniel Mota MD Primary Care Provider Unavail Ayan Pulliam MD Primary Care Provider [phone] Victor Manuel Gonzales MD Primary Care Provider Justinava jaxson Encounter Details Date Type Department Care Team Description 07/01/2011 Controlled Substance Plan Medical Records [address] [place] [address] Abstract, Provider Social History Tobacco Use Types [...] filedocumented in this encounter Care Teams Manager Risk Management Relationship Specialty Start Date End Date Daniel Mota MD PCP - General 07/27/1994 12/22/15 Victor Manuel Gonzales MD PCP - General Internal Medicine 07/22/16 10/19/16 Daniel Mota MD PCP - General Internal Medicine 10/20/16 09/23/19 Ayan Clayton MD [address] [place] [address] PCP - General Internal Medicine 09/24/19 Victor Manuel Gonzales MD PCP - General 12/23/15 07/21/16 documented as of this encounter
--- OUTSIDE RECORDS SUMMARY | 2024-07-25 09:36 | XMS_ITS | Encounter Summary ---
Author Organization [facility] Address [address] [place] [address] Care Team Providers Care Stretching Press Operator Name Role Phone Daniel Mota MD Primary Care Provider [facility] Ayan Pulliam MD Primary Care Provider [phone] Reason for Visit * Reason Onset Date Comments Roll On Man Feedback 05/12/2017 Cardiac Stress T est Encounter Details Date Type Department Care Team Description 05/12/2017 Telephone Adult Medicine [facility] [address] [place] [id number] Daniel Mota MD Roll On Man Feedback (Cardiac Stress Test) Social History Tobacco [...] patient to book appointment. Order faxed to [facility]. Office books with patient and will notify us with appointment. documented in this encounter Plan of Treatment Not on file documented as of this encounter Visit Diagnoses Not on filedocumented in this encounter Care Teams Stretching Press Operator Relationship Specialty Start Date End Date Daniel Mota MD PCP - General Internal Medicine 10/20/16 09/23/19 Ayan Clayton MD [address] [place] [address] PCP - General Internal Medicine 09/24/19 documented as of this encounter
--- OUTSIDE RECORDS SUMMARY | 2024-07-25 09:36 | XMS_ITS | Encounter Summary ---
Author Organization [facility] Address [address] [place] [address] Care Team Providers Care Toy Painter Name Role Phone Daniel Mota MD Primary Care Provider Unavail Victor Manuel Yu MD Primary Care Provider Unava ilable Daniel Mota MD Primary Care Provider Unavail Ayan Pulliam MD Primary Care Provider [phone] Victor Manuel Gonzales MD Primary Care Provider Unava ilmaximino Encounter Details Date Type Department Care Team Description 07/07/2011 Project Finance Analyst Report Medical Records [address] [place] [address] Elgin Russell MD Social History Tobacco Use [...] on filedocumented in this encounter Care Teams Toy Painter Relationship Specialty Start Date End Date Daniel Mota MD PCP - General 07/27/1994 12/22/15 Victor Manuel Gonzales MD PCP - General Internal Medicine 07/22/16 10/19/16 Daniel Mota MD PCP - General Internal Medicine 10/20/16 09/23/19 Ayan Clayton MD [address] [place] [address] PCP - General Internal Medicine 09/24/19 Victor Manuel Gonzales MD PCP - General 12/23/15 07/21/16 documented as of this encounter
--- OUTSIDE RECORDS SUMMARY | 2024-07-25 09:36 | XMS_ITS | Clinical Summary ---
Author Organization [facility] Address [address] [place] [address] Phone Care Team Providers Care Business Development Representative Name Role Phone Ayan Clayton MD Primary Care Provider [phone] Allergies Active Allergy Reactions Criticality Noted Date Comments Metformin Diarrhea 09/23/2016 Sulfa (Sulfonamide Antibiotics) High 03/28/2005 swelling and difficulty breathing Medications fluticasone-umec lidinium-vilante rol (Trelegy Ellipta) 100-62.5-25 mcg inhaler Inhale 1 Puff into the lungs daily. 4 Active acetaminophen (TYLENOL 8 HOUR) 650 mg 8 hr tablet TAKE ONE TABLET EVERY 8 HOURS NEEDED FOR PAIN 4 Active diclofenac (VOLTAREN) 1 % topical gel APPLY ONE GRAM TO THE AFFECTED AREA(s) TWICE DAILY 4 Active atorvastatin (LIPITOR) 20 mg tablet Take 1 Tablet by mouth at bedtime. 4 Active lisinopriL (PRINIVIL,ZESTRI L) 2.5 mg tablet Take 1 Tablet by mouth daily for 180 days. 4 Active lansoprazole (PREVACID SOLUTAB) 15 mg dispersible tablet DISSOLVE 1 TABLET BY MOUTH EVERY DAY 4 Active cholecalciferol (VITAMIN D-3) 25 mcg (1,000 unit) tablet Take 1 tablet (1,000 Units total) by mouth 1 (one) time each day. 4 Active celecoxib (CeleBREX) 100 mg capsule Take 1 capsule (100 mg total) by mouth 2 (two) times a day. 4 Active albuterol HFA (PROAIR HFA ; PROVENTIL HFA ; VENTOLIN HFA) 90 mcg/actuation inhaler Inhale 2 Puffs into the lungs 4 times daily as needed for Wheezing or Shortness of Breath. 4 Active nystatin (MYCOSTATIN) cream APPLY TO THE AFFECTED AREA(S) THREE TIMES DAILY 4 Active ibuprofen (ADVIL,MOTRIN) 800 mg tablet Take 1 tablet (800 mg total) by mouth every 8 (eight) hours if needed. 3 Active polyethylene glycol (MIRALAX) 17 gram packet MIX 1 PACKET IN 8 OUNCES OF WATER, JUICE,SODA, COFFEE, OR TEA DAILY NEEDED FOR CONSTIPATION TWICE DAILY 3 Active UNABLE TO FIND Use daily 3 Active tiZANidine (ZANAFLEX) 4 mg tablet TAKE ONE TABLET EVERY 6 HOURS NEEDED FOR MUSCLE SPASMS 120 tablet 1 4 Active fexofenadine (Griselda Allergy) 180 mg tabletIndication s:Severe persistent asthma without complication (CMS/HCC V28),Seasonal allergic rhinitis due to pollen Take 1 tablet (180 mg total) by mouth 1 (one) time each day. 30 each 2 5 026 Active triamcinolone (NASACORT) 55 mcg nasal inhalerIndicatio ns:Seasonal allergic rhinitis due to pollen Administer 1 spray into each nostril 1 (one) time each day. 10.8 mL 2 5 025 Active Active Problems Problem Noted Date Diagnosed Date Asthma 12/29/2023 Nocturnal hypoxemia 01/20/2022 COVID-19 virus detected 07/23/2019 Overview (12/29/2023): 07/22/2019 Lumbar disc disease 05/02/2019 Obesity (BMI 30.0-34.9) 10/16/2018 Overview (12/29/2023): S/p sleeve gastrectomy (Oct 2018) Allergic rhinitis due to pollen 10/01/2018 Centrilobular emphysema ([facility] V24, [facility] V2 8) 10/01/2018 Overview (12/29/2023): CT Lung Screenin02/2021: No [...] Spinal stenosis 07/08/2013 Type 2 diabetes mellitus wit h neurological manifestations ([facility] V24, [facility] V28) 07/11/2012 Type 2 diabetes mellitus wit h renal manifestations ([facility] V24, [facility] V28) 07/11/2012 Overview (12/29/2023): Microalbumin 58 on 08/2011 Hypertension 05/14/2010 Fibromyalgia 03/28/2005 Hyperlipidemia 03/28/2005 Resolved Problems Problem Noted Date Diagnosed Date Resolved Date Overweight (BMI 25.0-29.9) 11/07/2022 0 04/02/2024 Encounters Date Type Department Care Team Description 07/05/2024 Telephone Adult Medicine [address] [address] Laclair, Angela, POOLROOM/POOLHALL MANAGER Fitting for DME (Faxed form from [place]) 06/12/2024 8:50 AM EDT Office Visit Pulmonolgy - [place] [address] [facility] [address] [place] [address] Jil Freeman, KALE Centrilobular emphysema ([facility] V24, [facility] V28) (Primary Dx); Nocturnal hypoxemia; Snoring; Severe persistent asthma without complication ([facility] V28); Seasonal allergic rhinitis due to pollen 06/05/2024 Telephone Nephrology - [place] [address] [place] [phone] Vega Navarro MD Hypotension 05/08/[address] [facility] [address] [place] [address] Niels Retana MD Diarrhea, unspecified 05/06/[address] [facility] [address] [place] [address] Niels Retana MD Other rehabilitation assistant (current) drug therapy from Last 3 Months Immunizations Name Administration [...] 2 diabetes mellitus wit h renal manifestations (CMS/HCC V24, CMS/HCC V28) 07/11/2012 History of bariatric surgery 12/25/2017 : lap sleeve gastrectomy Type 2 diabetes mellitus wit h neurological manifestations (CMS/HCC V24, CMS/HCC V28) 07/11/2012 Allergic rhinitis due to pollen 10/01/2018 Centrilobular emphysema (CMS /HCC V24, [facility] V28) 10/01/2018 Snoring 05/24/2017 05/18/2017 Home S leep [...] 10:00 AM EDT Appointment Radiology Department - [address] [phone] 12/05/2024 3:45 PM EDT Office Visit Nephrology - [address] [phone] Vega Navarro MD [address] [facility] [address] [place] [address] 02/04/2025 9:00 AM EST Office Visit Bariatric Surgery - [place] [address] [place] [phone] Torrey Moreno MD [address] [facility] [address] [place] [address] 06/12/2025 9:10 AM EDT Office Visit Pulmonolgy - [place] [address] [facility] [address] [place] [phone] Jil Freeman NP [address] [facility] [address] [place] [address] Health Maintenance Due Date Last Done Comments Diabetes: Annual Retina Eye Exam 12/29/1965 RSV Immunization Adult Patients (1 - Risk 60-74 years 1-dose series) 2015 Depression Screening 03/05/2022 Falls Risk Assessment 03/05/2022 Social Influencers of Health Screening 03/05/2022 COVID-19 Vaccine ( season) 2023 03/15/2023, 02/12/2022, 05/03/2021, Additional history exists Medicare Annual Wellness Visit 12/09/2023 12/08/2022 Diabetes: Blood Sugar Control Test (HGBA1C) 12/29/2023 06/29/2023 Diabetes: Annual Foot Exam 04/10/2024 04/10/2023 Diabetes: Annual Urine Albumin-Creatinine Ratio (uACR) 06/28/2024 06/29/2023 Influenza Vaccine (Season Ended) 2024 12/08/2022, 12/07/2021, 12/22/2020, Additional history exists Diabetes: Annual GFR (Glomerular Filtration Rate) 05/06/2025 [...] age to complete this topic Meningococcal B Vaccine Aged Out No l onger eligible based on patient's age to complete [...] PANEL Routine 05/06/2024 6:41 AM EST Other rehabilitation assistant (current) drug therapy COMPLETE BLOOD COUNT Routine 05/06/2024 6:41 AM EST Other rehabilitation assistant (current) drug therapy SCREENING MAMMOGRAPHY BI 2-VIEW [...] (06/11/2024 2:16 PM EDT) us Historical Provider [facility]ENTER ORDERABLES F inal Result * (ABNORMAL) Gastrointestinal pathogens molecular study (05/08/2024 6:00 AM EST) Campylobacter Detection by PCR Not Detected Not Detected LAB MICROBIOLOGY METHOD 5 12:46 PM [facility] Plesiomonas shigelloides Detection by PCR Not Detected Not Detected LAB MICROBIOLOGY METHOD 5 12:46 PM [facility] Salmonella Detection by PCR Not Detected Not Detected LAB MICROBIOLOGY METHOD 5 12:46 PM [facility] Vibrio Detection by PCR Not Detected Not Detected LAB MICROBIOLOGY METHOD 5 12:46 PM [facility] Vibrio cholerae Detection by PCR Not Detected Not Detected LAB MICROBIOLOGY METHOD 5 12:46 PM [facility] Yersinia enterocolitica Detection by PCR Not Detected Not Detected LAB MICROBIOLOGY METHOD 5 12:46 PM [facility] Enteroaggregative E coli EAEC [...] 12:46 PM [facility] Shigella Enteroinvasive E coli EIEC Detection Not Detected Not Detected LAB MICROBIOLOGY METHOD 5 12:46 PM [facility] Cryptosporidium Detection by PCR Not Detected Not Detected LAB MICROBIOLOGY METHOD 5 12:46 PM [facility] Cyclospora cayetanensis Detection by [...] LAB MICROBIOLOGY METHOD 5 12:46 PM EST [facility] Norovirus GI GII Detection [...] 6:00 AM EST 05/08/2024 10:34 AM EST [facility] - 05/08/2024 12:46 PM EST [...] MICROBIOLOGY - GENERAL ORDER CHELA Final Result [facility] [address] [place] [address], * Clostridium difficile toxin (05/08/2024 6:00 AM EST) Clostridium difficile GDH Antigen Negative Negative 05/08/2024 12:02 PM [facility] C difficile Toxins A+B, EIA Negative Negative 05/08/2024 12:02 PM [facility] Comment:NEGATIVE FOR TOXIN P RODUCING CLOSTRIDIOIDES DIFFICILE, NO ADDITIONAL TESTING IS NECESSARY. Stool Rectum structure / Unknown 05/08/2024 6:00 AM EST 05/08/2024 11:43 AM EST us Niels Retana MD LAB MICROBIOLOGY - GENERAL ORDER CHELA Final Result [facility] [address] [place] [address], [place] [phone] * (ABNORMAL) Complete blood count (05/06/2024 6:41 AM EST) WBC 12.0(H) 4.8 - 10.8 K/mcL LAB HEMETOLOGY METHOD 05/06/2024 1:39 PM [facility] RBC 3.60(L) 3.80 - 4.80 M/mcL LAB HEMETOLOGY METHOD 05/06/2024 1:39 PM [facility] Hemoglobin 10.1(L) 11.5 - 16.0 g/dL LAB HEMETOLOGY METHOD 05/06/2024 1:39 PM [facility] Hematocrit 32.4(L) 35.0 - 47.0 % LAB HEMETOLOGY METHOD 05/06/2024 1:39 PM [facility] MCV 90.5 79.0 - 98.0 FL LAB HEMETOLOGY METHOD 05/06/2024 1:39 PM [facility] MCH 28.2 27.0 - 32.0 pcg LAB HEMETOLOGY METHOD 05/06/2024 1:39 PM [facility] MCHC 31.2(L) 32.0 - 37.0 g/dL LAB HEMETOLOGY METHOD 05/06/2024 1:39 PM [facility] RDW 15.0 11.0 - 15.0 % LAB HEMETOLOGY METHOD 05/06/2024 1:39 PM [facility] Platelets 349 130 - 400 K/mcL LAB HEMETOLOGY METHOD 05/06/2024 1:39 PM [facility] MPV 10.1 7.0 - 11.0 FL LAB HEMETOLOGY METHOD 05/06/2024 1:39 PM EST [facility] NRBC 0.0 <1.0 % LAB HEMETOLOGY METHOD 05/06/2024 1:39 PM [facility] NRBC Absolute 0.00 <0.10 K/mcL LAB HEMETOLOGY METHOD 05/06/2024 1:39 PM EST [facility] Blood Venous blood specimen / Unknown Venipuncture / Unknown 05/06/2024 6:41 AM EST 05/06/2024 12:07 PM EST us Niels Retana MD LAB BLOOD ORDERABLES Final Resul t [facility] [address] [place] [address], * (ABNORMAL) Comprehensive metabolic panel (05/06/2024 6:41 AM EST) Sodium 141 133 - 145 mmol/L LAB CHEMISTRY METHOD 05/06/2024 2:03 PM [facility] Potassium 3.6 3.5 - 5.5 mmol/L LAB CHEMISTRY METHOD 05/06/2024 2:03 PM [facility] Chloride 107 96 - 110 mmol/L LAB CHEMISTRY METHOD 05/06/2024 2:03 PM [facility] CO2 26 21 - 32 mmol/L LAB CHEMISTRY METHOD 05/06/2024 2:03 PM [facility] Anion Gap 8 3 - 11 LAB CHEMISTRY METHOD 05/06/2024 2:03 PM [facility] Glucose 108(H) 70 - 100 mg/dL LAB CHEMISTRY METHOD 05/06/2024 2:03 PM [facility] BUN 14 5 - 25 mg/dL LAB CHEMISTRY METHOD 05/06/2024 2:03 PM [facility] Creatinine 0.85 0.50 - 1.10 mg/dL LAB CHEMISTRY METHOD 05/06/2024 2:03 PM [facility] eGFR 75 >=60 mL/min/1. 73m2 LAB CHEMISTRY METHOD 05/06/2024 2:03 PM [facility] Comment:Calculation based on the??Chronic Kidney Disease Epidemiology Collaboration (CKD-EPI) equation refit??without adjustment for race. BUN/Creatinine Ratio 16.5 LAB CHEMISTRY METHOD 05/06/2024 2:03 PM [facility] Calcium 8.7 8.5 - 10.5 mg/dL LAB CHEMISTRY METHOD 05/06/2024 2:03 PM [facility] AST (SGOT) 35 10 - 42 unit/L LAB CHEMISTRY METHOD 05/06/2024 2:03 PM [facility] ALT (SGPT) 37 10 - 60 unit/L LAB CHEMISTRY METHOD 05/06/2024 2:03 PM [facility] Alkaline Phosphatase 403(H) 42 - 121 unit/L LAB CHEMISTRY METHOD 05/06/2024 2:03 PM [facility] Total Protein 5.8(L) 6.0 - 8.0 g/dL LAB CHEMISTRY METHOD 05/06/2024 2:03 PM [facility] Albumin 2.4(L) 3.2 - 5.0 g/dL LAB CHEMISTRY METHOD 05/06/2024 2:03 PM [facility] Total Bilirubin 0.5 0.0 - 1.4 mg/dL LAB CHEMISTRY METHOD 05/06/2024 2:03 PM [facility] Blood Venous blood specimen / Unknown Venipuncture / Unknown 05/06/2024 6:41 AM EST 05/06/2024 12:07 PM EST us Niels Retana MD LAB BLOOD ORDERABLES Final Resul t [facility] [address] [place] [address], * SCREENING MAMMOGRAPHY BI 2-VIEW BREAST INC [...] 12 months. BI-RADS: Category 2: Benign Result [facility] Ayan Clayton MD IMG XR PROCEDURES Final Result * Urine Albumin Creatinine Ratio (06/29/2023) Pathologist [facility] Urine Albumin Creatinine Ratio ABSTRACTED Result [facility] HEALTH MAINTENANCE Final Result * Hemoglobin A1c (06/29/2023) [facility] Hemoglobin A1C 5.2 <=6.5 % Blood Venous blood specimen / Unknown Result [facility] LAB BLOOD ORDERABLES Fely l Result * Lipid panel (06/29/2023) [facility] LDL/HDL Ratio 2 0 - 4 Triglycerides 142 0 - 150 mg/dL Cholesterol 172 0 - 200 mg/dL HDL 79 >=40 mg/dL LDL Cholesterol 65 0 - 100 mg/dL Blood Venous blood specimen / Unknown Result [facility] LAB BLOOD ORDERABLES Fely l Result * Diabetes Foot Exam (04/10/2023) Pathologist [facility] Diabetes: Annual Foot Exam ABSTRACTED Result [facility] HEALTH MAINTENANCE Final Result * DXA BONE [...] bone mineral density by WHO criteria. [facility] Department of Internal Medicine recommends using [...] alternative screening schedule based on albert Kincaid., [facility] April 14, 2011 for patients with [...] bone mineral density by WHO criteria. [facility] Department of Internal Medicine recommendsusing National [...] Result * Cervical Cancer Screening: HPV (04/28/2021) Pathologist [facility] Cervical Cancer Screening: HPV negative,a bstracted Historical Provider HEALTH MAINTENANCE Final Result * Colonoscopy (02/16/2021) Pathologist [facility] Colonoscopy no interpretation , abstracted Anatomical Region Laterality Modality Other Historical Provider HEALTH MAINTENANCE Final Result * Hepatitis C Screening (12/07/2020) Pathologist [facility] Hepatitis C Screening ABSTRACTED Historical Provider HEALTH MAINTENANCE Final Result from Last 3 Months or Most Recently Relevant to Health Maintenance Additional Health Concerns Infection Onset Date Last Indicated Norovirus 05/08/2024 05/08/2024 Insurance [facility] MEDICARE Member Subscriber Plan / Payer (Ef fective 2023-Present) Name:Yanet King Relation to Subscriber:Self Name:Yanet King Payer ID:[id number] Group ID:[id number] Type:Not on file Address: [place] [address] [address] [id number] Advance Directives Documents on File Type Date Recorded Patient Cold Press Loader Expl anation Health Care Decision (hx) 05/19/2014 [...] (hx) 05/15/2014 AD QUIÑONEZ DIRECTIVE Care Teams Business Development Representative Relationship Specialty Start Date End Date Ayan Clayton MD [address] [place] [id number] PCP - General Internal Medicine 07/11/24
--- OUTSIDE RECORDS SUMMARY | 2024-07-25 09:36 | XMS_ITS | Encounter Summary ---
Author Organization [facility] Address [address] [place] [address] Care Team Providers Care Community Center Worker Name Role Phone Daniel Mota MD Primary Care Provider Unavail Victor Manuel Yu MD Primary Care Provider Unava ilable Daniel Mota MD Primary Care Provider Unavail Ayan Pulliam MD Primary Care Provider [phone] Victor Manuel Gonzales MD Primary Care Provider Unava ilmaximino Encounter Details Date Type Department Care Team Description 11/17/2010 Assortment Planner Report Medical Records [address] [place] [address] [address] [place] [address] Social History Tobacco Use Types Packs/Day Years [...] filedocumented in this encounter Care Teams Community Center Worker Relationship Specialty Start Date End Date Daniel Mota MD PCP - General 07/27/1994 12/22/15 Victor Manuel Gonzales MD PCP - General Internal Medicine 07/22/16 10/19/16 Daniel Mota MD PCP - General Internal Medicine 10/20/16 09/23/19 Ayan Clayton MD [address] [place] [address] PCP - General Internal Medicine 09/24/19 Victor Manuel Gonzales MD PCP - General 12/23/15 07/21/16 documented as of this encounter
--- OUTSIDE RECORDS SUMMARY | 2024-07-25 09:36 | XMS_ITS | Encounter Summary ---
Author Organization [facility] Address [address] [place] [address] Care Team Providers Care Electrical Wiring Lineman Name Role Phone Ayan Clayton MD Primary Care Provider [phone] Encounter Details Date Type Department Care Team Description 03/17/2021 Cardiology Consultant Report Medical Records [address] [place] [address] [facility] Social History Tobacco Use Types Packs/Day [...] filedocumented in this encounter Care Teams Electrical Wiring Lineman Relationship Specialty Start Date End Date Ayan Clayton MD [address] [place], [place] [phone] PCP - General Internal Medicine 09/24/19 documented as of this encounter
--- OUTSIDE RECORDS SUMMARY | 2024-07-25 09:36 | XMS_ITS | Encounter Summary ---
Author Organization [facility] Address [address] [place] [address] Care Team Providers Care Lodge Sales Associate Name Role Phone Daniel Mota MD Primary Care Provider Unavail able Ayan Clayton MD Primary Care Provider [phone] Encounter Details Date Type Department Care Team Description 05/02/2017 Senior Information Security Architect Report Medical Records [address] [place] [address] Ana Pratt PA-C [address] [place] [address] [address] [place] [address] Social History Tobacco Use Types Packs/Day Years [...] on filedocumented in this encounter Care Teams Lodge Sales Associate Relationship Specialty Start Date End Date Daniel Mota MD PCP - General Internal Medicine 10/20/16 09/23/19 Ayan Clayton MD [address] [place], [place] [phone] PCP - General Internal Medicine 09/24/19 documented as of this encounter
--- OUTSIDE RECORDS SUMMARY | 2024-07-25 09:36 | XMS_ITS | Encounter Summary ---
Author Organization [facility] Address [address] [place] [address] Care Team Providers Care Ear Pull Machine Operator Name Role Phone Ayan Clayton MD Primary Care Provider Encounter Details Date Type Department Care Team Description 11/26/2020 Data Entry Machine Operator Report Medical Records [address] [place] [address] Rell Leavitt Social History Tobacco Use Types [...] on filedocumented in this encounter Care Teams Ear Pull Machine Operator Relationship Specialty Start Date End Date Ayan Clayton MD [address] [place], [place] [phone] PCP - General Internal Medicine 09/24/19 documented as of this encounter
--- OUTSIDE RECORDS SUMMARY | 2024-07-25 09:36 | XMS_ITS | Encounter Summary ---
Author Organization [facility] Address [address] [place] [address] Care Team Providers Care Filter Press Tender Name Role Phone Ayan Clayton MD Primary Care Provider [phone] Encounter Details Date Type Department Care Team Description 08/25/2022 Program Clinician Report Medical Records [address] [place] [address] Alexis Campbell MD Social History Tobacco Use [...] on filedocumented in this encounter Care Teams Filter Press Tender Relationship Specialty Start Date End Date Ayan Clayton MD [address] [place] [address] PCP - General Internal Medicine 09/24/19 documented as of this encounter
--- OUTSIDE RECORDS SUMMARY | 2024-07-25 09:36 | XMS_ITS | Encounter Summary ---
Author Organization [facility] Address [address] [place] [address] Care Team Providers Care Kiss Setter Hand Name Role Phone Daniel Mota MD Primary Care Provider Unavail able Ayan Clayton MD Primary Care Provider [phone] Encounter Details Date Type Department Care Team Description 10/24/2016 [facility] Medical Records [address] [place] [id number] Abstract, Provider Social History Tobacco Use Types [...] on filedocumented in this encounter Care Teams Kiss Setter Hand Relationship Specialty Start Date End Date Daniel Mota MD PCP - General Internal Medicine 10/20/16 09/23/19 Ayan Clayton MD [address] [place] [id number] PCP - General Internal Medicine 09/24/19 documented as of this encounter
--- OUTSIDE RECORDS SUMMARY | 2024-07-25 09:36 | XMS_ITS | Encounter Summary ---
Author Organization [facility] Address [address] [place] [address] Care Team Providers Care Polysomnographic Tech Name Role Phone Ayan Clayton MD Primary Care Provider [phone] Encounter Details Date Type Department Care Team Description 11/03/2020 Telephone Adult Medicine [address] [phone] Ayan Clayton MD [address] [place] [phone] Social History Tobacco Use Types Packs/Day Years [...] on filedocumented in this encounter Care Teams Polysomnographic Tech Relationship Specialty Start Date End Date Ayan Clayton MD [address] [place] [address] PCP - General Internal Medicine 09/24/19 documented as of this encounter
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
--- OUTSIDE RECORDS SUMMARY | 2024-07-25 09:36 | XMS_ITS | Encounter Summary ---
Author Organization [facility] Address [address] [place] [address] Care Team Providers Care Edi Manager Name Role Phone Victor Manuel Gonzales MD Primary Care Provider Daniel Longoria MD Primary Care Provider Ayan Rubalcava MD Primary Care Provider [phone] Reason for Visit * Reason Onset Date Comments Orders Call 07/22/2016 Encounter Details Date Type Department Care Team Description 07/22/2016 Telephone Podiatry - [facility] [address] [place] [id number] Skylar Hanna DPM Orders Call Social History [...] on filedocumented in this encounter Care Teams Edi Manager Relationship Specialty Start Date End Date Victor Manuel Gonzales MD PCP - General Internal Medicine 07/22/16 10/19/16 Daniel Mota MD PCP - General Internal Medicine 10/20/16 09/23/19 Ayan Clayton MD [address] [place] [id number] PCP - General Internal Medicine 09/24/19 documented as of this encounter
--- OUTSIDE RECORDS SUMMARY | 2024-07-25 09:36 | XMS_ITS | Encounter Summary ---
Author Organization [facility] Address [address] [place] [address] Care Team Providers Care Format Proofreader Name Role Phone Daniel Mota MD Primary Care Provider [facility] Ayan Clayton MD Primary Care Provider [phone] Encounter Details Date Type Department Care Team Description 03/03/2017 Dog Or Horse Racing Official Report Medical Records [address] [place] [address] Lida Renae PA-C [address] [place] [id number] Social History Tobacco Use Types Packs/Day [...] on filedocumented in this encounter Care Teams Format Proofreader Relationship Specialty Start Date End Date Daniel Mota MD PCP - General Internal Medicine 10/20/16 09/23/19 Ayan Clayton MD [address] [place] [address] PCP - General Internal Medicine 09/24/19 documented as of this encounter
--- OUTSIDE RECORDS SUMMARY | 2024-07-25 09:36 | XMS_ITS | Encounter Summary ---
Author Organization [facility] Address [address] [place] [address] Care Team Providers Care Tube Roller Name Role Phone Victor Manuel Gonzales MD Primary Care Provider Daniel Longoria MD Primary Care Provider [facility] able Ayan Clayton MD Primary Care Provider [phone] Victor Manuel Gonzales MD Primary Care Provider Candida puri Encounter Details Date Type Department Care Team Description 01/18/2016 Release of Information Medical Records [address] [place] [address] Abstract, Provider Social History Tobacco Use Types [...] on filedocumented in this encounter Care Teams Tube Roller Relationship Specialty Start Date End Date Victor Manuel Gonzales MD PCP - General Internal Medicine 07/22/16 10/19/16 Daniel Mota MD PCP - General Internal Medicine 10/20/16 09/23/19 Ayan Clayton MD [address] [place] [id number] PCP - General Internal Medicine 09/24/19 Victor Manuel Gonzales MD PCP - General 12/23/15 07/21/16 documented as of this encounter
--- OUTSIDE RECORDS SUMMARY | 2024-07-25 09:36 | XMS_ITS | Encounter Summary ---
Author Organization [facility] Address [address] [place] [address] Care Team Providers Care Study Lead Name Role Phone Ayan Clayton MD Primary Care Provider [phone] Encounter Details Date Type Department Care Team Description 11/20/2020 Hospital Medical Records [address] [place] [address] Rell Leavitt Social History Tobacco Use Types [...] on filedocumented in this encounter Care Teams Study Lead Relationship Specialty Start Date End Date Ayan Clayton MD [address] [place], [place] [id number] PCP - General Internal Medicine 09/24/19 documented as of this encounter
--- OUTSIDE RECORDS SUMMARY | 2024-07-25 09:36 | XMS_ITS | Encounter Summary ---
Author Organization [facility] Address [address] [place] [address] Care Team Providers Care Superintendent Service Name Role Phone Ayan Clayton MD Primary Care Provider [phone] Encounter Details Date Type Department Care Team Description 03/26/2023 Senior Sql Server Developer Report Medical Records [address] [place] [address] [facility] [address] [place] [address] Social History Tobacco Use Types Packs/Day Years [...] on filedocumented in this encounter Care Teams Superintendent Service Relationship Specialty Start Date End Date Ayan Clayton MD [address] [place], [place] [id number] PCP - General Internal Medicine 09/24/19 documented as of this encounter
--- OUTSIDE RECORDS SUMMARY | 2024-07-25 09:36 | XMS_ITS | Encounter Summary ---
Author Organization [facility] Address [address] [place] [address] Care Team Providers Care Cook At [employer] Name Role Phone Ayan Clayton MD Primary Care Provider [phone] Encounter Details Date Type Department Care Team Description 04/08/2021 Transfer Records Medical Records [address] [place] [address] Jake Womack MD Social History Tobacco Use [...] on filedocumented in this encounter Care Teams Cook [employer] Relationship Specialty Start Date End Date Ayan Clayton MD [address] [place], [place] [id number] PCP - General Internal Medicine 09/24/19 documented as of this encounter
--- OUTSIDE RECORDS SUMMARY | 2024-07-25 09:36 | XMS_ITS | Encounter Summary ---
Author Organization [facility] Address [address] [place] [address] Care Team Providers Care Hand Mexican Food Maker Name Role Phone Ayan Clayton MD Primary Care Provider [phone] Encounter Details Date Type Department Care Team Description 03/08/2023 Entertainment Production Professional Report Medical Records [address] [place] [address] Blu Us I., PH.D Social History Tobacco [...] filedocumented in this encounter Care Teams Hand Mexican Food Maker Relationship Specialty Start Date End Date Ayan Clayton MD [address] [place] [id number] PCP - General Internal Medicine 09/24/19 documented as of this encounter
--- OUTSIDE RECORDS SUMMARY | 2024-07-25 09:37 | XMS_ITS | Patient Health Record ---
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 Name Role Phone LENNIE ALFARO Primary Care Provider Aide Salmeron Unavailable [phone] Allergies Allergen (clinical drug ingredient) Drug/Non Drug Allergy documented on EMR Reaction Allergy Type Onset Date Status semaglutide Ozempic pancreatitis Drug Allergy Ac tive metformin Metformin diarrhea Drug Allergy Active Substance with sulfonamide structure and antibacterial mechanism of action (substance) Sulfa Antibiotics anaphylaxis Drug Allergy Active Results Component Value Reference Range Notes COMPREHENSIVE METABOLIC PANE L Reviewed date:10/05/2023 12:32:01 [...] Notes/Report: Original Ordering Provider: LENNIE ALFARO MD [employer] [address] Field Map Technician - Noemi Green MD GLYCATED HEMOGLOBIN A1C 4.7 <6.5 % ESTIMATED AVERAGE GLUCOSE 88 LIPID PROFILE Reviewed date:10/11/2023 09:18:44 AM Interpretation: Performing Lab: Notes/Report: CHOLESTEROL 185 0-200 mg/dL TRIGLYCERIDES 264 0-150 mg/dL HDL CHOLESTEROL 60 >40 mg/dL LDL CALCULATED 73 0-100 mg/dL TC-HDLC RATIO 3.1 0-4.4 mg/dL VITAMIN D, 25-HYDROXY Reviewed date:10/11/2023 09:19:01 AM Interpretation: Performing Lab: Notes/Report: [employer], a member of [address] [address] Field Map Technician - Noemi Green MD VITAMIN D, 25-HYDROXY 26 30-80 ng/mL Phosphorus-[id number] Reviewed date:11/20/2023 07:48:11 PM Interpretation: Performing Lab:[facility], [address] [place] [address], Phone - [phone], Director - Celia Notes/Report: Clinical Information:SRC:UR Phosphorus 4.3 3.0-4.3 mg/dL Iron and TIBC-[id number] Reviewed date:11/20/2023 07:51:16 PM Interpretation: Performing Lab:[facility], [address] [place] [address], Phone - [phone], Director - Celia Notes/Report: Clinical Information:SRC:UR Iron Bind.Cap.(TIBC) 259 250-450 ug/dL UIBC 241 118-369 ug/dL Iron 18 27-139 ug/dL Iron Saturation 7 15-55 % Magnesium-[id number] Reviewed date:11/20/2023 08:14:51 PM Interpretation: Performing Lab:[facility], [address] [place] [address], Phone - [phone], Director - Celia Notes/Report: Clinical Information:SRC:UR Magnesium 1.4 1.6-2.3 mg/dL Urinalysis, Complete-[id number] Reviewed date:11/20/2023 08:15:30 PM Interpretation: Performing Lab:[facility] [place], [address] [place] [address], Phone - [phone], Director - Celia Notes/Report: Clinical Information:SRC:UR Clinical Information:SRC:UR Specific [place] 1.014 1.005-1.030 pH 6.5 5.0-7.5 Urine-Color Yellow [...] None seen /lpf Bacteria Few None seen/Few Ferritin-[id number] Reviewed date:11/20/2023 07:46:40 PM Interpretation: Performing Lab:[facility] [place], [address] [place] [address], Phone - [phone], Director - Celia Notes/Report: Clinical Information:SRC:UR Ferritin 294 15-150 ng/mL CBC With Differential/Platel et-[id number] Reviewed date:11/20/2023 07:55:27 PM Interpretation: Performing Lab:[facility] [place], [address] [place] [address], Phone - [phone], Director - Celia Notes/Report: Clinical Information:SRC:UR WBC [...] % Immature Grans (Abs) 0.1 0.0-0.1 x10E3/uL Urine Culture, Routine-56713 7 Reviewed date:11/20/2023 08:11:02 PM Interpretation: Performing Lab:[facility], [address], Phone - [phone], Director - [facility]oresvillekoby Notes/Report: Clinical Information:SRC:UR Clinical Information:SRC:UR Urine Culture, [...] I Tetracycline S Tobramycin S Trimethoprim/Sulfa S Comp. Metabolic Panel (14)-3 [id number] Reviewed date:11/20/2023 07:52:31 PM Interpretation: Performing Lab:[facility], [address] [facility] [facility], [place], Phone - [phone], Director - Celia Notes/Report: Clinical Information:SRC:UR Glucose [...] 0-40 IU/L ALT (SGPT) 12 0-32 IU/L Iron and TIBC-[id number] Reviewed date:03/15/2024 01:41:09 PM Interpretation: Performing Lab:[facility] [address] [place] [address], Phone - [phone], Director - MDJodry Notes/Report: Iron Bind.Cap.(TIBC) 277 250-450 ug/dL UIBC 235 118-369 ug/dL Iron 42 27-139 ug/dL Iron Saturation 15 15-55 % Hemoglobin W1l-[id number] Reviewed date:03/16/2024 05:23:28 PM Interpretation: Performing Lab:[facility] [address] [place] [address], Phone - [phone], Director - MDJodry Notes/Report: Hemoglobin A1c 7.0 4.8-5.6 % . Prediabetes: 5.7 - 6.4 Diabetes: >6.4 Glycemic control for adults with diabetes: <7.0 Ferritin-[id number] Reviewed date:03/15/2024 01:41:57 PM Interpretation: Performing Lab:[facility] [address] [place] [address], Phone - [phone], Director - MDJodry Notes/Report: Ferritin 132 15-150 ng/mL CBC, Platelet, No Differenti al-[id number] Reviewed date:03/15/2024 01:40:27 PM Interpretation: Performing Lab:[facility] [address] [place] [address], Phone - [phone], Director - MDJodry Notes/Report: WBC 8.0 3.4-10.8 x10E3/uL RBC 3.43 3.77-5.28 x10E6/uL Hemoglobin 9.1 11.1-15.9 g/dL Hematocrit 30.3 34.0-46.6 % MCV 88 79-97 fL MCH 26.5 26.6-33.0 pg MCHC 30.0 31.5-35.7 g/dL RDW 14.9 11.7-15.4 % Platelets 490 150-450 x10E3/uL Basic Metabolic Panel (7)-30 1276 Reviewed date:03/16/2024 05:25:46 PM Interpretation: Performing Lab:[facility], [address] [facility] [facility], [place], Phone - [phone], Director - Celia Notes/Report: Glucose 113 70-99 mg/dL BUN 21 8-27 mg/dL Creatinine 1.11 0.57-1.00 mg/dL eGFR 54 >59 mL/min/1.73 BUN/Creatinine Ratio 19 12-28 Sodium 146 134-144 mmol/L Potassium 5.0 3.5-5.2 mmol/L Chloride 108 96-106 mmol/L Carbon Dioxide, Total 18 20-29 mmol/L CBC With Differential/Platel et-[id number] Reviewed date:12/11/2023 08:03:32 AM Interpretation: Performing Lab:[facility], [address] [facility], [place], Phone - [phone], Director - Celia Notes/Report: WBC 8.3 3.4-10.8 [...] % Immature Grans (Abs) 0.0 0.0-0.1 x10E3/uL Reason For Referral Reason Evaluation and manag ement Diagnosis 1 Nausea with vomiting , unspecified (R11.2) Referral Organization [facility] Referring Provider First Name LENNIE Referring Provider Last Name [facility] Referring Provider Speciality Internal edicine Referred Provider Specialty Gastroentero logy General Notes Referral faxed to [facility] - Dept will call patient for scheduling.Tevin Latraya 10/02/2023 04:17:02 PM > Referral Priority Routine Reason Evaluation and manag ement Diagnosis 1 Complaints of memory disturbance (R41.3) Referral Organization [facility] Referring Provider First Name Aide Referring Provider Last Name Jaron Referred Provider Specialty Neurology General Notes Referral sent to [facility] - Office will call patient for scheduling.Tevin Latraya 11/16/2023 02:06:05 PM > Referral Priority Routine Reason Evaluation and manag ement - Dr Lewis Diagnosis 1 Acute embolism and t hrombosis of unspecified deep veins of left lower extremity (I82.402) Referral Organization [facility] Referring Provider First Name LENNIE Referring Provider Last Name LASHON Referring Provider Speciality Internal edicine Referred Provider Specialty Hematology General Notes Referral sent to Dr. Lewis - Office will call patient for scheduling.Tevin Latraya 12/07/2023 12:29:49 PM > Referral Priority Routine Reason Evaluation and manag ement Diagnosis 1 Type 2 diabetes alida itus with unspecified complications (E11.8) Referral Organization [facility] Referring Provider First Name LENNIE Referring Provider Last Name LASHON Referring Provider Speciality Internal edicine Referred Provider Specialty Podiatry General Notes Referral sent to [facility] in [place] - Office will call patient for scheduling.Tevin Latraya 01/04/2024 02:46:45 PM > Referral Priority Routine Medications Medication SIG (Take, Route, Frequency, Duration) Notes Start Date End Date Status Coreg 3.125 MG 1 tablet with food Orally Twice a day 07/16/2024 Active Complex B-100 - as directed Orally 03/06/2024 Active Albuterol Sulfate (2.5 MG/3ML) 0.083% 3 ml as needed Inhalation every 6 hrs Active Deep Sea Nasal [place] 0.65 % 2 sprays in each nostril as needed Nasally every 2 hrs Active Fluticasone-Salmeter ol 230-21 MCG/ACT 2 puffs Inhalation Twice a day Active Nystatin 990475 UNIT/GM 1 application Externally Twice a day along with the nystatin cream Active Acetaminophen Extra Strength 500 MG 2 tablet as needed Orally every 6 hrs Active Aspirin 81 MG 1 tablet Orally Once a day Not-Taking Ventolin HFA 108 (90 Base) MCG/ACT 1 puff as needed Inhalation every 4 hrs Active Lisinopril 2.5 MG 1 tablet Orally Once a day 09/25/2023 Not-Taking Ferrous Sulfate 325 (65 Fe) MG 1 tablet Orally Once a day for 30 days 11/20/2023 Active Ezetimibe 10 mg TAKE ONE TABLET EVERY DAY for 30 Active Ozempic (2 MG/DOSE) 8 MG/3ML 2 mg Subcutaneous once a week for 30 days Not-Taking tiZANidine HCl 4 MG 1 tablet at bedtime as needed Orally Once a day for 30 days Active Paxlovid (300/100) 20 x 150 MG & 10 x 100MG 3 tablets Orally Twice a day for 5 days 11/02/2023 Not-Taking Losartan Potassium 25 MG 1 tablet Orally Once a day for 30 days 07/16/2024 Active DULoxetine HCl 30 mg TAKE ONE CAPSULE DAILY for 30 Active Omeprazole 20 MG 1 capsule 30 minutes before morning meal Orally Once a day for 90 days 09/25/2023 Active Morphine Sulfate ER 15 mg TAKE ONE [...] 1 tablet Orally Once a day Not-Taking Cetirizine HCl 10 MG 1 tablet Orally Once a day for 90 days Active Diclofenac Sodium 1 % as directed Externally 2 times a day for 30 days 2 gms 12/07/2023 Active Naloxone HCl 4 MG/0.1ML as directed Nasally prn for 30 days 01/04/2024 Active Sodium Bicarbonate 650 MG 1 TAB Orally 2 TIMES A DAY for 30 days Active Tylenol Arthritis Pain Active Atorvastatin Calcium [...] M15.9, M51.35 for 30 days 03/29/2024 Active Multivitamin - 1 tablet Orally Once a day Not-Taking Ondansetron 4 MG 1 tablet on the tongue and allow to dissolve Orally twice daily for 30 days 09/25/2023 Not-Taking Vitamin D3 25 MCG (1000 UT) 1 tablet Orally Once a day for 30 days Not-Taking Docusate Sodium 100 mg TAKE ONE CAPSULE BY MOUTH TWICE DAILY for 30 Not-Taking Diclofenac Sodium 3 % 1 application [...] 12 hrs for 7 days 11/17/2023 Not-Taking Enoxaparin Sodium 60 MG/0.6ML as directed Injection once a day 09/25/2023 Not-Taking Immunizations Vaccine Route Administration Date Status Comme nts COVID Moderna Unknown 05/26/2020 Administered COVID Moderna Unknown 06/23/2020 Administered COVID Moderna Unknown 05/03/2021 Administered COVID-19 Moderna Unknown 02/12/2022 Administered Fluzone High Dose 30409 IM Intramuscular 01/04/2024 Admini stered High Dose [...] Status Risk Notes Problem Iron deficiency anemia (20354847) Iron deficiency anemia, unspecified (D50.9) Active confirmed Problem Anemia (730669247) Anemia, unspecified (D64.9) Active confirmed Problem Disorder due to type 2 diabetes mellitus (063248069) Type 2 diabetes mellitus with unspecified complications (E11.8) Active confirmed Problem Type II diabetes mellitus without complication (589947444) Type 2 diabetes mellitus without complications (E11.9) Active confirmed Problem Vitamin D deficiency (36418617) Vitamin D deficiency, unspecified (E55.9) Active confirmed Problem Morbid obesity (disorder) (227478213) Morbid (severe) obesity due to excess calories (E66.01) Active confirmed Problem Obesity due to excess calories (559118339) Other obesity due to excess calories (E66.09) Active confirmed Problem Mixed hyperlipidemia (188073848) Mixed hyperlipidemia (E78.2) Active confirmed Problem Major depression, single episode (64432490) Major depressive disorder, single episode, unspecified (F32.9) Active confirmed Problem Chronic pain syndrome (213879090) Chronic pain syndrome (G89.4) Active confirmed Problem Essential hypertension (08465312) Essential (primary) hypertension (I10) Active confirmed Problem Embolism from thrombosis of vein of lower extremity (618783837) 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) Active confirmed Problem Uncomplicated mild persistent asthma (415927743) Mild persistent asthma, uncomplicated (J45.30) Active confirmed Problem Gastro-esophageal reflux disease without esophagitis (749063288) Gastro-esophageal reflux disease without esophagitis (K21.9) Active confirmed Problem Osteoarthritis (659173617) Polyosteoarthriti s, unspecified (M15.9) Active confirmed Problem Degeneration of thoracolumbar intervertebral disc (00708016) Other intervertebral disc degeneration, 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) Active confirmed Problem Long-term current use of insulin (826873230) 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) Active confirmed Problem Presence of orthopedic joint implant (380751731) Presence of right artificial shoulder joint (Z96.611) Active confirmed Problem History of artificial joint (320778194) Presence of left artificial hip joint (Z96.642) Active confirmed Problem Amnesia (93941365) Complaints of memory disturbance (R41.3) Active confirmed Problem Acute pancreatitis (206168955) Acute pancreatitis (K85.90) Active confirmed Vital Signs Heart Rate 68 /min 07/16/2024 Temperature 97.4 degrees Fahrenheit 07/16/2024 Blood pressure diastolic 70 mm Hg 07/16/2024 Oximetry 93 % 07/16/2024 Height 60 in 07/16/2024 Blood pressure systolic 155 mm Hg 07/16/2024 Weight 144.6 lbs 07/16/2024 BMI 28.24 kg/m2 07/16/2024 Encounters Encounter Location Date Provider Diagnosis [address] [place] [address] 08/02/2023 [facility] Other obesity due to excess calories E66.09 and Dietary counseling and surveillance Z71.[address] [place] [address] 09/25/2023 [facility] Nausea R11.0 and Presence of left artificial hip joint Z96.[address] [place] [address] 10/02/2023 [facility] GUL Other obesity due to excess calories E66.09 ; Dietary counseling and surveillance Z71.3 ; Vitamin D deficiency, unspecified E55.9 ; Mixed hyperlipidemia E78.2 and Type 2 diabetes mellitus with unspecified complications E11.[address] [place] [address] 11/16/2023 [facility] discharge follow-up Z09 ; Acute pancreatitis K85.90 [...] E11.9 and Complaints of memory disturbance R41.[address] [place] [address] 11/23/2023 Aide Salmeron Essential (primary) hypertension I10 and Type 2 diabetes mellitus with unspecified complications E11.[address] [place] [address] 12/01/2023 [facility] GUL Hypotension, unspecified I95.9 and Acute embolism and thrombosis of unspecified deep veins of left lower extremity I82.[address] [place] [address] 12/07/2023 [facility] GUL Enterocolitis due to Clostridium difficile, not specified as recurrent A04.72 ; Acute embolism and thrombosis of unspecified deep veins of left lower extremity I82.402 and Other intervertebral disc degeneration, thoracolumbar region M51.[address] [place] [address] 01/04/2024 [facility] GUL Other intervertebral disc degeneration, thoracolumbar region M51.35 ; Encounter for immunization Z23 and Acute embolism and thrombosis of unspecified deep veins of left lower extremity I82.[address] [place] [address] 02/01/2024 [facility] GUL Other intervertebral disc degeneration, thoracolumbar region M51.35 ; Major depressive disorder, single episode, unspecified F32.9 and Acute embolism and thrombosis of unspecified deep veins of left lower extremity I82.[address] [place] [address] 03/01/2024 [facility] GUL Other intervertebral disc degeneration, thoracolumbar region M51.35 ; Major depressive disorder, single episode, unspecified F32.9 and Acute embolism and thrombosis of unspecified deep veins of left lower extremity I82.[address] [place] [address] 03/06/2024 [facility]oshad Preoperative clearan ce Z01.[address] [place] [address] 03/18/[address] [place] [address] 03/29/2024 [facility] Chronic pain syndrom e G89.4 ; Polyosteoarthritis, unspecified M15.9 and Other intervertebral disc degeneration, thoracolumbar region M51.[address] [place] [address] 04/24/2024 [facility] GU Chronic pain syndrom e G89.4 ; Polyosteoarthritis, unspecified M15.9 and Other intervertebral disc degeneration, thoracolumbar region M51.[address] [place] [address] 06/05/2024 Aide Jainum Chronic pain syndrom e G89.4 ; Polyosteoarthritis, unspecified M15.9 ; Other intervertebral disc degeneration, thoracolumbar region M51.35 ; Presence of right artificial shoulder joint Z96.611 ; Mixed hyperlipidemia E78.2 and Type 2 diabetes mellitus with unspecified complications E11.[address] [place] [address] 07/16/2024 [facility] discharge follow-up Z09 ; Type 2 diabetes mellitus with unspecified complications E11.8 ; Essential (primary) hypertension I10 ; Mixed hyperlipidemia E78.2 ; Chronic pain syndrome G89.4 ; Chronic embolism and thrombosis of unspecified deep veins of unspecified lower extremity I82.509 and Gastro-esophageal reflux disease without esophagitis K21.[address] [place] [address] 08/11/[address] [place] [address] 10/11/2023 [facility] Mixed hyperlipidemia E78.[address] [place] [address] 10/19/2023 [facility] [address] [place] [address] 10/24/2023 [facility] [address] [place] [address] 10/31/2023 [facility] [address] [place] [address] 11/02/2023 [facility] [address] [place] [address] 11/09/2023 [facility] [address] [facility] [place] [address] 11/10/2023 [facility] [address] [facility] [place] [address] 11/10/2023 [facility] [address] [place] [address] 11/14/2023 [facility] [address] [facility] [place] [address] 11/16/2023 [facility] [address] [facility] [place] [address] 11/17/[address] [facility] Urinary tract infection, site not specified N39.0 [facility] [address] [place] [address] 11/20/[address] [facility] Urinary tract infection, site not specified N39.0 and Iron deficiency anemia, unspecified D50.9 [facility] [address] [facility] [place] [address] 11/27/2023 [facility] [address] [place] [address] 11/28/2023 [facility] [address] [facility] [place] [address] 12/06/2023 [facility] [address] [place] [address] 12/14/[address] [facility] [address] [facility] [place] [address] 12/21/2023 [facility] [address] [place] [address] 01/04/2024 [facility] [address] [facility] [place] [address] 01/04/2024 [facility] [address] [facility] [place] [address] 01/04/2024 [facility] [address] [facility] [place] [address] 01/26/2024 [facility] GUL [facility] [address] [facility] [place] [address] 01/30/2024 [facility] [address] [facility] [place] [address] 02/06/2024 [facility] GUL [facility] [address] [facility] [place] [address] 02/16/2024 [facility] [address] [facility] [place] [address] 02/19/2024 [facility] [address] [facility] [place] [address] 02/28/2024 [facility] GUL [facility] [address] [facility] [place] [address] 03/01/2024 [facility] GUL [facility] [address] [facility] [place] [address] 03/01/2024 [facility] [address] [facility] [place] [address] 03/14/2024 [facility] [address] [place] [address] 03/15/2024 [facility] [address] [place] [address] 03/22/2024 [facility] [address] [place] [address] 03/29/2024 [facility] [address] [place] [address] 03/29/2024 [facility] [address] [place] [address] 04/15/2024 [facility] [address] [place] [address] 04/23/[address] [place] [address] 06/05/2024 [facility] [address] [facility] [address] [place] [address] 06/05/[address] [place] [address] 06/12/[address] [place] [address] 06/20/[address] [place] [address] 07/05/[address] [address] [facility] Assessments Encounter Date Diagnosis (ICD Code) Assessment [...] a hip replacement. Dietary recommendations. She sees brisket puller at [facility] once a month. Food recall was done today and patient advised to be on low calorie, low carbohydrate diet. Restrict calories to less than 1500 kcal in 24 hours. Low glycemic index foods and encouraged. Meal replacements were recommended. Advised to use [id number] multivitamins and vitamin D. Advised to use calorie counter and adhere to portion control. Monthly goal is to lose 4-6 pounds Pharmacotherapy. Continue Ozempic. Exercise. she cannot do exercise because of her significant osteoarthritis of bilateral lower extremities. She is going to pain management/headache s at [place] for intra-articular injections Assess. Different risk factors [...] this note under HIPAA compliance and under [place] law mandated for scribe services. Patient aware [...] a hip replacement. Dietary recommendations. She sees brisket puller at [facility] once a month. Food recall was done today and patient advised to be on low calorie, low carbohydrate diet. Restrict calories to less than 1500 kcal in 24 hours. Low glycemic index foods and encouraged. Meal replacements were recommended. Advised to use rzdx-pbe-zdaokql multivitamins and vitamin D. Advised to use calorie counter and adhere to portion control. Monthly goal is to lose 4-6 pounds Pharmacotherapy. Continue Ozempic. Exercise. she cannot do exercise because of her significant osteoarthritis of bilateral lower extremities. She is going to pain management/headache s at [place] for intra-articular injections Assess. Different risk factors [...] this note under HIPAA compliance and under [place] law mandated for scribe services. Patient aware [...] femur periprosthetic fracture. Surgery wsa done at [facility] on 09/07. She went tp [facility] on September 12. Plan as follows: Left [...] femur periprosthetic fracture. Surgery wsa done at [facility] on 09/07. She went tp [facility] on September 12. Plan as follows: Left [...] the above mentioned assessment and plan 10/02/2023 Other obesity due to excess calories [...] on right medications. She has seen an thimble press operator for the past year. Foot care discussed. check A1c. Nausea/vomiting. Advised not to take too much ibuprofen. Start Omeprazole 20 MG. Referred to GI. Dietary recommendations. She sees brisket puller at [facility] once a month. Food recall was done today and patient advised to be on low calorie, low carbohydrate diet. Restrict calories to less than 1500 kcal in 24 hours. Low glycemic index foods and encouraged. Meal replacements were recommended. Advised to use pwuc-wvr-rylynqw multivitamins and vitamin D. Advised to use calorie counter and adhere to portion control. Monthly goal is to lose 4-6 pounds Pharmacotherapy. Continue Ozempic. Exercise. she cannot do exercise because of her significant osteoarthritis of bilateral lower extremities. She is going to pain management/headache s at [place] for intra-articular injections Assess. Different risk factors [...] this note under HIPAA compliance and under [place] law mandated for scribe services. Patient aware of service. Verbal consent and written consent taken from the patient. Patient understands and verbalizes understanding of the scribes services and all questions answered regarding scribes services. Patient agrees to use of scribes services. 10/02/2023 Dietary counseling and surveillance (ICD-10 - [...] on right medications. She has seen an thimble press operator for the past year. Foot care discussed. check A1c. Nausea/vomiting. Advised not to take too much ibuprofen. Start Omeprazole 20 MG. Referred to GI. Dietary recommendations. She sees brisket puller at [facility] once a month. Food recall was done today and patient advised to be on low calorie, low carbohydrate diet. Restrict calories to less than 1500 kcal in 24 hours. Low glycemic index foods and encouraged. Meal replacements were recommended. Advised to use sqiw-spz-mupsuyr multivitamins and vitamin D. Advised to use calorie counter and adhere to portion control. Monthly goal is to lose 4-6 pounds Pharmacotherapy. Continue Ozempic. Exercise. she cannot do exercise because of her significant osteoarthritis of bilateral lower extremities. She is going to pain management/headache s at [place] for intra-articular injections Assess. Different risk factors [...] this note under HIPAA compliance and under [place] law mandated for scribe services. Patient aware of service. Verbal consent and written consent taken from the patient. Patient understands and verbalizes understanding of the scribes services and all questions answered regarding scribes services. Patient agrees to use of scribes services. 10/11/2023 Mixed hyperlipidemia (ICD-10 - E78.2) 11/16/2023 Acute pancreatitis (ICD-10 - K85.90) Yanet is a 67-year-old female with a pmhx of T2DM on Ozempic, HLD, Asthma, vitamin D deficiency, s/p hip arthroplasty is here for [facility] hospital discharge for hypotension with abdominal pain, [...] deficiency, s/p hip arthroplasty is here for [facility] hospital discharge for hypotension with abdominal pain, [...] the patient but was available upon request 11/17/2023 Urinary tract infection, site not specified [...] follow up. She was recently admitted at [facility] on 11/09/2023 due to cough and abdominal [...] this note under HIPAA compliance and under [place] law mandated for scribe services. Patient aware [...] follow up. She was recently admitted at [facility] on 11/09/2023 due to cough and abdominal [...] this note under HIPAA compliance and under [place] law mandated for scribe services. Patient aware [...] follow up. She was recently hospitalized at [facility] from 11/02 to 11/08 for pancreatitis, ALE, [...] this note under HIPAA compliance and under [place] law mandated for scribe services. Patient aware of service. Verbal consent and written consent taken from the patient. Patient understands and verbalizes understanding of the scribes services and all questions answered regarding scribes services. Patient agrees to use of scribes services. 11/20/2023 Urinary tract infection, site not specified (ICD-10 - N39.0) 12/07/2023 Enterocolitis due to Clostridium difficile, not specified as recurrent (ICD-10 - A04.72) Yanet is a 67-year-old female with a pmhx of T2DM on ozempic, HLD, Asthma, Vitamin D deficiency is here for hospital discharge follow up. She was recently hospitalized at [facility] from 11/02 to 11/08 for pancreatitis, ALE, [...] this note under HIPAA compliance and under [place] law mandated for scribe services. Patient aware [...] this note under HIPAA compliance and under [place] law mandated for scribe services. Patient aware [...] this note under HIPAA compliance and under [place] law mandated for scribe services. Patient aware [...] this note under HIPAA compliance and under [place] law mandated for scribe services. Patient aware of service. Verbal consent and written consent taken from the patient. Patient understands and verbalizes understanding of the scribes services and all questions answered regarding scribes services. Patient agrees to use of scribes services. 03/01/2024 Other intervertebral disc degeneration, thoracolumbar region [...] this note under HIPAA compliance and under [place] law mandated for scribe services. Patient aware [...] here for pre-op clearance For right [facility]/orthopedics with Dr. Ruiz coming up in [...] extremity DVT and she follows up with actionscript developer, chronic kidney disease and she follows up with clinical nurse occupational medicine, as the amount, degenerative disc disease/osteoarthri tis and she has an upcoming surgery for total right hip replacement at [facility]. She had preop physical done recently and he wanted EKG which was done today. EKG is normal sinus rhythm at 60 [address]pm with no acute ST or T wave changes with no bundle-branch blocks, normal intervals Chronic pain management. Chronic pain secondary to degenerative disc disease. Prognosis: Mild to moderate Medical necessity supported by H&P, imaging and testing [place] pain treatment protocol completed. Yes Chronic opioid/pain [...] opioid misuse based on ORT. Toxicology and PLUMBER HELPER monitoring done and will follow protocol set forth by practice. As such controlled substance use requires judicious monitoring to access patient compliance with mutually agreed upon controlled substance use agreement which has been signed by the patient and initiation of controlled substance prescribing. Therefore following state, Federal, [facility] guidelines for controlled substance testing policies. This patient has been assessed on the basis of psychometric risk tool, PLUMBER HELPER monitoring, toxicology test results. Comorbid conditions may [...] extremity DVT and she follows up with actionscript developer, chronic kidney disease and she follows up with clinical nurse occupational medicine, as the amount, degenerative disc disease/osteoarthri tis and she has an upcoming surgery for total right hip replacement at [facility]. She had preop physical done recently and he wanted EKG which was done today. EKG is normal sinus rhythm at 60 bpm with no acute ST or T wave changes with no bundle-branch blocks, normal intervals Chronic pain management. Chronic pain secondary to degenerative disc disease. Prognosis: Mild to moderate Medical necessity supported by H&P, imaging and testing [place] pain treatment protocol completed. Yes Chronic opioid/pain [...] opioid misuse based on ORT. Toxicology and PLUMBER HELPER monitoring done and will follow protocol set [...] on the basis of psychometric risk tool, PLUMBER HELPER monitoring, toxicology test results. Comorbid conditions may [...] extremity DVT and she follows up with actionscript developer, chronic kidney disease and she follows up with clinical nurse occupational medicine, as the amount, degenerative disc disease/osteoarthri tis and she has an upcoming surgery for total right hip replacement at [facility]. She is here today for chronic pain management Chronic pain management. Chronic pain secondary to degenerative disc disease. Prognosis: Mild to moderate Medical necessity supported by H&P, imaging and testing [place] pain treatment protocol completed. Yes Chronic opioid/pain [...] opioid misuse based on ORT. Toxicology and PLUM[employer] HEL[employer] monitoring done and will follow protocol set forth by practice. As such controlled substance use requires judicious monitoring to access patient compliance with mutually agreed upon controlled substance use agreement which has been signed by the patient and initiation of controlled substance prescribing. Therefore following state, Federal, [facility] guidelines for controlled substance testing policies. This patient has been assessed on the basis of psychometric risk tool, PLUMBER HELPER monitoring, toxicology test results. Comorbid conditions may [...] extremity DVT and she follows up with actionscript developer, chronic kidney disease and she follows up with clinical nurse occupational medicine, as the amount, degenerative disc disease/osteoarthri tis and she has an upcoming surgery for total right hip replacement at [facility]. She is here today for chronic pain management Chronic pain management. Chronic pain secondary to degenerative disc disease. Prognosis: Mild to moderate Medical necessity supported by H&P, imaging and testing [place] pain treatment protocol completed. Yes Chronic opioid/pain [...] opioid misuse based on ORT. Toxicology and PLUM[employer] HELPER monitoring done and will follow protocol set forth by practice. As such controlled substance use requires judicious monitoring to access patient compliance with mutually agreed upon controlled substance use agreement which has been signed by the patient and initiation of controlled substance prescribing. Therefore following state, Federal, [facility] guidelines for controlled substance testing policies. This patient has been assessed on the basis of psychometric risk tool, PLUMBER HELPER monitoring, toxicology test results. Comorbid conditions may [...] extremity DVT and she follows up with actionscript developer, chronic kidney disease and she follows up with clinical nurse occupational medicine, as the amount, degenerative disc disease/osteoarthri tis She is status post total right hip replacement at [facility], Is here for follow-up. Status post right hip replacement surgery - Surgery was recently done at [place]. She is able to walk now, she [...] is 7.0. She does follow up with grades 9 12 tutor at [facility] - Continue the same [...] extremity DVT and she follows up with actionscript developer, chronic kidney disease and she follows up with clinical nurse occupational medicine, as the amount, degenerative disc disease/osteoarthri tis She is status post total right hip replacement at [facility], Is here for follow-up. Status post right hip replacement surgery - Surgery was recently done at [place]. She is able to walk now, she [...] is 7.0. She does follow up with grades 9 12 tutor at [facility] - Continue the same regimen Screening blood work before next appointment General concerns have been discussed I have rendered the services for this patient under direct supervision of Dr. Alfaro, who did not see the patient but was available upon request 02/01/2024 Other intervertebral disc degeneration, thoracolumbar region [...] this note under HIPAA compliance and under [place] law mandated for scribe services. Patient aware [...] this note under HIPAA compliance and under [place] law mandated for scribe services. Patient aware of service. Verbal consent and written consent taken from the patient. Patient understands and verbalizes understanding of the scribes services and all questions answered regarding scribes services. Patient agrees to use of scribes services. 07/16/2024 Type 2 diabetes mellitus with unspecified complications (ICD-10 - E11.8) Ron is 68 years old lady with hypertension, hyperlipidemia, diabetes mellitus type 2, anemia, DVT, acid reflux, multiple joint osteoarthritis is here today for follow-up. She was recently admitted at [facility] for upper respiratory tract symptoms. Plan [...] 30 mg. Symptoms are under control 07/16/2024 Hospital discharge follow-up (ICD-10 - Z09) Ron is 68 years old lady with hypertension, hyperlipidemia, diabetes mellitus type 2, anemia, DVT, acid reflux, multiple joint osteoarthritis is here today for follow-up. She was recently admitted at [facility] for upper respiratory tract symptoms. Plan [...] for follow-up. She was recently admitted at [facility] for upper respiratory tract symptoms. Plan [...] duloxetine 30 mg. Symptoms are under control 03/01/2024 Acute embolism and thrombosis of unspecified [...] this note under HIPAA compliance and under [place] law mandated for scribe services. Patient aware [...] extremity DVT and she follows up with actionscript developer, chronic kidney disease and she follows up with clinical nurse occupational medicine, as the amount, degenerative disc disease/osteoarthri tis She is status post total right hip replacement at [facility], Is here for follow-up. Status post right hip replacement surgery - Surgery was recently done at [place]. She is able to walk now, she [...] is 7.0. She does follow up with grades 9 12 tutor at [facility] - Continue the same [...] extremity DVT and she follows up with actionscript developer, chronic kidney disease and she follows up with clinical nurse occupational medicine, as the amount, degenerative disc disease/osteoarthri tis and she has an upcoming surgery for total right hip replacement at [facility]. She is here today for chronic pain management Chronic pain management. Chronic pain secondary to degenerative disc disease. Prognosis: Mild to moderate Medical necessity supported by H&P, imaging and testing [place] pain treatment protocol completed. Yes Chronic opioid/pain [...] opioid misuse based on ORT. Toxicology and PLUMBER HELPER monitoring done and will follow protocol set [...] on the basis of psychometric risk tool, PLUMBER HELPER monitoring, toxicology test results. Comorbid conditions may [...] extremity DVT and she follows up with actionscript developer, chronic kidney disease and she follows up with clinical nurse occupational medicine, as the amount, degenerative disc disease/osteoarthri tis and she has an upcoming surgery for total right hip replacement at [facility]. She had preop physical done recently and he wanted EKG which was done today. EKG is normal sinus rhythm at 60 bpm with no acute ST or T wave changes with no bundle-branch blocks, normal intervals Chronic pain management. Chronic pain secondary to degenerative disc disease. Prognosis: Mild to moderate Medical necessity supported by H&P, imaging and testing [place] pain treatment protocol completed. Yes Chronic opioid/pain [...] opioid misuse based on ORT. Toxicology and PLUMBER HELPER monitoring done and will follow protocol set [...] on the basis of psychometric risk tool, PLUMBER HELPER monitoring, toxicology test results. Comorbid conditions may [...] this note under HIPAA compliance and under [place] law mandated for scribe services. Patient aware of service. Verbal consent and written consent taken from the patient. Patient understands and verbalizes understanding of the scribes services and all questions answered regarding scribes services. Patient agrees to use of scribes services. 01/04/2024 Acute embolism and thrombosis of unspecified [...] this note under HIPAA compliance and under [place] law mandated for scribe services. Patient aware [...] the patient but was available upon request 12/07/2023 Other intervertebral disc degeneration, thoracolumbar region (ICD-10 - M51.35) Yanet is a 67-year-old female with a pmhx of T2DM on ozempic, HLD, Asthma, Vitamin D deficiency is here for hospital discharge follow up. She was recently hospitalized at [facility] from 11/02 to 11/08 for pancreatitis, ALE, [...] this note under HIPAA compliance and under [place] law mandated for scribe services. Patient aware of service. Verbal consent and written consent taken from the patient. Patient understands and verbalizes understanding of the scribes services and all questions answered regarding scribes services. Patient agrees to use of scribes services. 11/20/2023 Iron deficiency anemia, unspecified (ICD-10 - [...] on right medications. She has seen an thimble press operator for the past year. Foot care discussed. check A1c. Nausea/vomiting. Advised not to take too much ibuprofen. Start Omeprazole 20 MG. Referred to GI. Dietary recommendations. She sees brisket puller at [facility] once a month. Food recall was done today and patient advised to be on low calorie, low carbohydrate diet. Restrict calories to less than 1500 kcal in 24 hours. Low glycemic index foods and encouraged. Meal replacements were recommended. Advised to use iqyl-cbr-gaoyuyz multivitamins and vitamin D. Advised to use calorie counter and adhere to portion control. Monthly goal is to lose 4-6 pounds Pharmacotherapy. Continue Ozempic. Exercise. she cannot do exercise because of her significant osteoarthritis of bilateral lower extremities. She is going to pain management/headache s at [place] for intra-articular injections Assess. Different risk factors [...] this note under HIPAA compliance and under [place] law mandated for scribe services. Patient aware of service. Verbal consent and written consent taken from the patient. Patient understands and verbalizes understanding of the scribes services and all questions answered regarding scribes services. Patient agrees to use of scribes services. 11/16/2023 Hypokalemia (ICD-10 - E87.6) Yanet is a 67-year-old female with a pmhx of T2DM on Ozempic, HLD, Asthma, vitamin D deficiency, s/p hip arthroplasty is here for [facility] hospital discharge for hypotension with abdominal pain, [...] patient but was available upon request 10/02/2023 Mixed hyperlipidemia (ICD-10 - E78.2) Ms [...] on right medications. She has seen an thimble press operator for the past year. Foot care discussed. check A1c. Nausea/vomiting. Advised not to take too much ibuprofen. Start Omeprazole 20 MG. Referred to GI. Dietary recommendations. She sees brisket puller at [facility] once a month. Food recall was done today and patient advised to be on low calorie, low carbohydrate diet. Restrict calories to less than 1500 kcal in 24 hours. Low glycemic index foods and encouraged. Meal replacements were recommended. Advised to use lwxf-vcq-skyoprf multivitamins and vitamin D. Advised to use calorie counter and adhere to portion control. Monthly goal is to lose 4-6 pounds Pharmacotherapy. Continue Ozempic. Exercise. she cannot do exercise because of her significant osteoarthritis of bilateral lower extremities. She is going to pain management/headache s at [place] for intra-articular injections Assess. Different risk factors [...] this note under HIPAA compliance and under [place] law mandated for scribe services. Patient aware of service. Verbal consent and written consent taken from the patient. Patient understands and verbalizes understanding of the scribes services and all questions answered regarding scribes services. Patient agrees to use of scribes services. 11/16/2023 Mild persistent asthma, uncomplicated (ICD-10 - J45.30) Yanet is a 67-year-old female with a pmhx of T2DM on Ozempic, HLD, Asthma, vitamin D deficiency, s/p hip arthroplasty is here for [facility] hospital discharge for hypotension with abdominal pain, [...] patient but was available upon request 06/05/2024 Presence of right artificial shoulder joint (ICD-10 - Z96.611) Ron is 68 years old pleasant lady with insulin-dependent DM type II and follow-up with endocrinology, hyperlipidemia, left lower extremity DVT and she follows up with actionscript developer, chronic kidney disease and she follows up with clinical nurse occupational medicine, as the amount, degenerative disc disease/osteoarthri tis She is status post total right hip replacement at [facility], Is here for follow-up. Status post right hip replacement surgery - Surgery was recently done at [place]. She is able to walk now, she [...] is 7.0. She does follow up with grades 9 12 tutor at [place] Hyperlipidemia - Continue the same regimen Screening blood work before next appointment General concerns have been discussed I have rendered the services for this patient under direct supervision of Dr. Alfaro, who did not see the patient but was available upon request 07/16/2024 Mixed hyperlipidemia (ICD-10 - E78.2) Ron is 68 years old lady with hypertension, hyperlipidemia, diabetes mellitus type 2, anemia, DVT, acid reflux, multiple joint osteoarthritis is here today for follow-up. She was recently admitted at [facility] for upper respiratory tract symptoms. Plan [...] for follow-up. She was recently admitted at [facility] for upper respiratory tract symptoms. Plan [...] duloxetine 30 mg. Symptoms are under control 06/05/2024 Mixed hyperlipidemia (ICD-10 - E78.2) Ron is 68 years old pleasant lady with insulin-dependent DM type II and follow-up with endocrinology, hyperlipidemia, left lower extremity DVT and she follows up with actionscript developer, chronic kidney disease and she follows up with clinical nurse occupational medicine, as the amount, degenerative disc disease/osteoarthri tis She is status post total right hip replacement at [facility], Is here for follow-up. Status post right hip replacement surgery - Surgery was recently done at [place]. She is able to walk now, she [...] is 7.0. She does follow up with grades 9 12 tutor at [facility] - Continue the same [...] deficiency, s/p hip arthroplasty is here for [facility] hospital discharge for hypotension with abdominal pain, [...] on right medications. She has seen an thimble press operator for the past year. Foot care discussed. check A1c. Nausea/vomiting. Advised not to take too much ibuprofen. Start Omeprazole 20 MG. Referred to GI. Dietary recommendations. She sees brisket puller at [facility] once a month. Food recall was done today and patient advised to be on low calorie, low carbohydrate diet. Restrict calories to less than 1500 kcal in 24 hours. Low glycemic index foods and encouraged. Meal replacements were recommended. Advised to use xdhs-mbs-yuzkqxb multivitamins and vitamin D. Advised to use calorie counter and adhere to portion control. Monthly goal is to lose 4-6 pounds Pharmacotherapy. Continue Ozempic. Exercise. she cannot do exercise because of her significant osteoarthritis of bilateral lower extremities. She is going to pain management/headache s at [facility] for intra-articular injections Assess. Different risk factors [...] this note under HIPAA compliance and under [place] law mandated for scribe services. Patient aware of service. Verbal consent and written consent taken from the patient. Patient understands and verbalizes understanding of the scribes services and all questions answered regarding scribes services. Patient agrees to use of scribes services. 11/16/2023 COVID (ICD-10 - U07.1) Yanet is a 67-year-old female with a pmhx of T2DM on Ozempic, HLD, Asthma, vitamin D deficiency, s/p hip arthroplasty is here for [facility] hospital discharge for hypotension with abdominal pain, [...] the patient but was available upon request 07/16/2024 Chronic embolism and thrombosis of unspecified deep veins of unspecified lower extremity (ICD-10 - I82.509) Ron is 68 years old lady with hypertension, hyperlipidemia, diabetes mellitus type 2, anemia, DVT, acid reflux, multiple joint osteoarthritis is here today for follow-up. She was recently admitted at [facility] for upper respiratory tract symptoms. Plan [...] duloxetine 30 mg. Symptoms are under control 06/05/2024 Type 2 diabetes mellitus with unspecified complications (ICD-10 - E11.8) Ron is 68 years old pleasant lady with insulin-dependent DM type II and follow-up with endocrinology, hyperlipidemia, left lower extremity DVT and she follows up with actionscript developer, chronic kidney disease and she follows up with clinical nurse occupational medicine, as the amount, degenerative disc disease/osteoarthri tis She is status post total right hip replacement at [facility], Is here for follow-up. Status post right hip replacement surgery - Surgery was recently done at [place]. She is able to walk now, she [...] is 7.0. She does follow up with grades 9 12 tutor at [facility] - Continue the same regimen Screening blood work before next appointment General concerns have been discussed I have rendered the services for this patient under direct supervision of Dr. Alfaro, who did not see the patient but was available upon request 07/16/2024 Gastro-esophageal reflux disease without esophagitis (ICD-10 - K21.9) Ron is 68 years old lady with hypertension, hyperlipidemia, diabetes mellitus type 2, anemia, DVT, acid reflux, multiple joint osteoarthritis is here today for follow-up. She was recently admitted at [facility] for upper respiratory tract symptoms. Plan [...] duloxetine 30 mg. Symptoms are under control 11/16/2023 Type 2 diabetes mellitus with unspecified complications (ICD-10 - E11.8) Yanet is a 67-year-old female with a pmhx of T2DM on Ozempic, HLD, Asthma, vitamin D deficiency, s/p hip arthroplasty is here for [facility] hospital discharge for hypotension with abdominal pain, [...] deficiency, s/p hip arthroplasty is here for [facility] hospital discharge for hypotension with abdominal pain, [...] deficiency, s/p hip arthroplasty is here for [facility] hospital discharge for hypotension with abdominal pain, [...] deficiency, s/p hip arthroplasty is here for [facility] hospital discharge for hypotension with abdominal pain, [...] deficiency, s/p hip arthroplasty is here for [facility] hospital discharge for hypotension with abdominal pain, [...] deficiency, s/p hip arthroplasty is here for [facility] hospital discharge for hypotension with abdominal pain, [...] deficiency, s/p hip arthroplasty is here for [facility] hospital discharge for hypotension with abdominal pain, [...] Test Test Name Order Date CBC/Differential (No Platelet)-[id number] Albumin/Creatinine Ratio,Urine-[id number] Lipid Panel-[id number] 06/05/2024 Lipid Panel-[id number] 10/11/2023 Comp. Metabolic Panel [id number] 2024 Future Test Test Name Order Date Hemoglobin [id number] 07/16/2024 Albumin/Creatinine Ratio,Urine-[id number] Lipid Panel-[id number] 07/16/2024 Comp. Metabolic Panel [id number] 2024 Next Appt Details Provider Name:Xuan Jean Baptiste, 0 07/31/2024 10:15:00 AM, [address] [place] [address], [phone], Provider Name:LENNIE ALFARO , 12/20/2024 10:00:00 AM, [address] [facility] [address], [place], [address], Insurance Providers Payer Name Payer Address Payer Phone Subscriber Number Group Number Insured Name Patient Relationship to Insured Coverage Start Date Coverage End Date [employer] [address] [place] [address] [id number] FernandoYanet brownlee Self - patient is the insured 2 for life [address] [place] [address] [id number] FernandoYanet Self - patient is the insured 2 Medical (General) History Medical History History ICD Code insulin-dependent diabetes mellitus type II, sees Dr. Kendall at [facility] hyperlipidemia constipation osteoarthritis asthma fibromyalgia Chronic kidney disease and sees nephrolo gy DDD and had seen Pain mgm in [facility] and marlen k injection LLE - DVT and will see [place] [facility] Surgical History Surgery Date(Month/Year) s/p gastric sleeve by Dr. Moreno 10/2018 cholecystectomy back surgery x2, Dr. Garcia and elena andrew doctor in [place] 2019 right carpal tunnel surgery pancreatitis 2023 RHT surgery 05/21
--- OUTSIDE RECORDS SUMMARY | 2024-07-25 09:37 | XMS_ITS | Encounter Summary ---
Author Organization [facility] Address [address] [place] [address] Care Team Providers Care Temperature Logging Operator Name Role Phone Ayan Clayton MD Primary Care Provider Encounter Details Date Type Department Care Team Description 10/21/2022 Orders Only [facility] Lung Screening Program [place] [address] [facility] [address] [place] [id number] Frank Hampton MD [address] [facility] [address] [place] [address] History of tobacco use, presenting hazards to [...] health documented in this encounter Care Teams Temperature Logging Operator Relationship Specialty Start Date End Date Ayan Clayton MD [address] [place] [address] PCP - General Internal Medicine 09/24/19 documented as of this encounter
--- OUTSIDE RECORDS SUMMARY | 2024-07-25 09:37 | XMS_ITS | Encounter Summary ---
Author Organization [facility] Address [address] [place] [address] Care Team Providers Care Report Checker Name Role Phone Ayan Clayton MD Primary Care Provider [phone] Encounter Details Date Type Department Care Team Description 11/02/2022 Heel Reducer Report Medical Records [address] [place] [address] Abstract, Provider Social History Tobacco Use Types [...] on filedocumented in this encounter Care Teams Report Checker Relationship Specialty Start Date End Date Ayan Clayton MD [address] [place], [place] [phone] PCP - General Internal Medicine 09/24/19 documented as of this encounter
--- OUTSIDE RECORDS SUMMARY | 2024-07-25 09:37 | XMS_ITS | Encounter Summary ---
Author Organization [facility] Address [address] [place] [address] Care Team Providers Care X Ray Service Technician Name Role Phone Ayan Clayton MD Primary Care Provider [phone] Reason for Visit * Reason Comments E-prescribe Rx Request Encounter Details Date Type Department Care Team Description 08/28/2022 Refill Gastroenterology - [place] [address] [facility] [address] [place] [address] Jerrod Joe PA-C E-prescribe Rx [...] in this encounter Care Teams X Ray Service Technician Relationship Specialty Start Date End Date Ayan Clayton MD [address] [place] [address] PCP - General Internal Medicine 09/24/19 documented as of this encounter
--- OUTSIDE RECORDS SUMMARY | 2024-07-25 09:37 | XMS_ITS | Encounter Summary ---
Author Organization [facility] Address [address] [place] [address] Care Team Providers Care Director Of Maintenance Name Role Phone Daniel Mota MD Primary Care Provider Unavail Victor Manuel Yu MD Primary Care Provider Unava ilable Daniel Mota MD Primary Care Provider Unavail Ayan Pulliam MD Primary Care Provider [phone] Victor Manuel Gonzales MD Primary Care Provider Justinava jaxson Encounter Details Date Type Department Care Team Description 10/03/2012 Night Triage Doc Medical Records [address] [place] [address] Abstract, Provider Social History Tobacco Use Types [...] in this encounter Care Teams Director Of Maintenance Relationship Specialty Start Date End Date Daniel Mota MD PCP - General 07/27/1994 12/22/15 Victor Manuel Gonzales MD PCP - General Internal Medicine 07/22/16 10/19/16 Daniel Mota MD PCP - General Internal Medicine 10/20/16 09/23/19 Ayan Clayton MD [address] [place] [address] PCP - General Internal Medicine 09/24/19 Victor Manuel Gonzales MD PCP - General 12/23/15 07/21/16 documented as of this encounter
== END 2024-07-25 08:59 | disposition home or self-care (01) ==
LOC: HO.HOSX 08:58
PROVIDERS: Visit Provider Orthopaedic Surgery
DX: M25.551 Pain in right hip (principal)
CPT/HCPCS: 72170; 73501

== ENCOUNTER 2024-07-25 09:52 | Outpatient (AMB) | payer OTHER, SELFPAY ==
--- NOTE | 2024-07-25 09:55 | MHC.OFFVIS ---
Vital Signs 07/25/24 10:05 Height 4 ft 11.5 in Weight 130 lb BMI 25.8 Intake Visit Reasons: PO:R CHINYERE w/NE 05/01/24-6 WK follow up Intake Note: Yanet is a 68 year old female who presents today for a post operative follow up about 2 months s/p Right CHINYERE 05/01/2024. Patient reports that she is doing very well with no present concerns. Allergies Sulfa (Sulfonamide Antibiotics) Allergy (Severe, Verified 06/13/24 09:54) throat swelling metformin Adverse Reaction (Intermediate, Verified 06/13/24 09:54) diarrhea semaglutide [From Ozempic] Adverse Reaction (Intermediate, Verified 06/13/24 09:54) pancreatitis HPI HPI PO:R CHINYERE w/NE 05/01/24-6 WK follow up: Details: Yanet is a 68 year old female who presents today for a post operative follow up about 2 months s/p Right CHINYERE 05/01/2024. Patient reports that she is doing very well with no present concerns. [facility] Medical History (Updated 05/11/24 @ 00:01 by Background Daemon) Metabolic acidosis Hypertension Hypokalemia Hypernatremia DVT (deep venous thrombosis) History of kidney infection (~08/2023) DVT (deep venous thrombosis) Diabetes Elevated blood pressure reading with diagnosis of hypertension Abdominal hernia Asthma Arthritis Osteoarthritis (arthritis due to wear and tear of joints) COVID-19 vaccine series completed Full dentures Arthritis of left hip Low back pain Liver cyst COPD (chronic obstructive pulmonary disease) Elevated cholesterol Surgical History (Updated 05/11/24 @ 00:01 by Background Daemon) S/P insertion of IVC (inferior vena caval) filter (02/07/24) History of total left hip arthroplasty (08/29/23) Hx of gastric bypass Hx of ankle fusion Status post insertion of nerve stimulator Hx of colonoscopy Hx of carpal tunnel repair History of back surgery Social History Household Members: None Housing: Condominium Are you a primary day care provider to a significant other at home: No Do you presently have visiting nurse or other home services: No 75 years or older and lives alone: No Comment: pt rings appropriately Patient Tobacco Use Status: Former Tobacco user Tobacco use type: Cigarette Cigarettes Per Day: 60 Years Smoked: quit 15 years ago Second Hand Smoke Exposure: No service: No Physical Exam Vital Signs: BMI result Body Mass Index 25.8 Extrem Other: Mild Trendelenburg gait on the left. No groin pain with range of motion bilateral hips. Incisions clean dry and intact. Walking comfortably. Results Reviewed Results Reviewed: I personally reviewed relevant radiographs. Right CHINYERE in expected post operative position with no hardware complications or evidence of loosening Left CHINYERE in expected post operative position with no hardware complications or evidence of loosening Assessment & Plan Assessment & Plan (1) S/P total right hip arthroplasty: Code(s): Z96.641 - Presence of right artificial hip joint Category: Surgical Plan: Yanet is doing extremely well. She looks like a different person and has improved dramatically after bilateral hip replacements. She had a postoperative fracture on the left which was treated with long stem arthroplasty and greater trochanteric plate fixation. She did well and went on to have a successful right hip replacement. I would follow up in 9 months and she will contact me if anything changes. Orders: Orders XR pelvis 1-2V Today M25.559 - Pain in unspecified hip XR hip RT 1V Today M25.559 - Pain in unspecified hip Coding Level of Care Code Est Pt Level 3 (87659) Diagnoses S/P total right hip arthroplasty Z96.641
[2024-07-25 10:05] VITALS: BMI 25.8
--- OUTSIDE RECORDS SUMMARY | 2024-07-25 11:01 | XMS_ITS | Encounter Summary ---
Author Organization [facility] Address [address] [place] [address] Care Team Providers Care City Marshal Name Role Phone Daniel Mota MD Primary Care Provider Unavail able Ayan Clayton MD Primary Care Provider [phone] Encounter Details Date Type Department Care Team Description 07/18/2018 Telephone Adult Medicine [facility] [address] [place] [address] Daniel Mota MD Social History Tobacco Use [...] on filedocumented in this encounter Care Teams City Marshal Relationship Specialty Start Date End Date Daniel Mota MD PCP - General Internal Medicine 10/20/16 09/23/19 Ayan Clayton MD [address] [place] [address] PCP - General Internal Medicine 09/24/19 documented as of this encounter
--- OUTSIDE RECORDS SUMMARY | 2024-07-25 11:01 | XMS_ITS | Encounter Summary ---
Author Organization [facility] Address [address] [place] [address] Care Team Providers Care Aluminum Hydroxide Process Operator Name Role Phone Ayan Clayton MD Primary Care Provider [phone] Encounter Details Date Type Department Care Team Description 10/19/2021 Audio Visual Director Report Medical Records [address] [place] [address] Skylar Hanna DPM Social History Tobacco Use [...] on filedocumented in this encounter Care Teams Aluminum Hydroxide Process Operator Relationship Specialty Start Date End Date Ayan Clayton MD [address] [place], [place] [phone] PCP - General Internal Medicine 09/24/19 documented as of this encounter
--- OUTSIDE RECORDS SUMMARY | 2024-07-25 11:01 | XMS_ITS | Encounter Summary ---
Author Organization [facility] Address [address] [place] [address] Care Team Providers Care Rehab Tech Name Role Phone Ayan Clayton MD Primary Care Provider [phone] Encounter Details Date Type Department Care Team Description 06/27/2023 Public Information Specialist Report Medical Records [address] [place] [address] Vega Garcia Social History Tobacco Use Types [...] on filedocumented in this encounter Care Teams Rehab Tech Relationship Specialty Start Date End Date Ayan Clayton MD [address] [place] [address] PCP - General Internal Medicine 09/24/19 documented as of this encounter
--- OUTSIDE RECORDS SUMMARY | 2024-07-25 11:01 | XMS_ITS | Encounter Summary ---
Author Organization [facility] Address [address] [place] [address] Care Team Providers Care Veterinary Milk Specialist Name Role Phone Ayan Clayton MD Primary Care Provider [phone] Encounter Details Date Type Department Care Team Description 08/12/2021 Business Doc Medical Records [address] [place] [address] Abstract, Provider Social History Tobacco Use Types [...] on filedocumented in this encounter Care Teams Veterinary Milk Specialist Relationship Specialty Start Date End Date Ayan Clayton MD [address] [place], [place] [phone] PCP - General Internal Medicine 09/24/19 documented as of this encounter
--- OUTSIDE RECORDS SUMMARY | 2024-07-25 11:01 | XMS_ITS | Encounter Summary ---
Author Organization [facility] Address [address] [place] [address] Care Team Providers Care Trimmer Hand Name Role Phone Ayan Clayton MD Primary Care Provider [phone] Reason for Visit * Reason Onset Date Comments Faxed Order 03/17/2022 [facility] Encounter Details Date Type Department Care Team Description 03/17/2022 Telephone Adult Medicine [facility] [address] [place] [address] [phone] Ayan Clayton MD [address] [place] [address] [phone] Faxed Order ([facility] ) Social History Tobacco Use Types [...] on filedocumented in this encounter Care Teams Trimmer Hand Relationship Specialty Start Date End Date Ayan Clayton MD [address] [place] [address] PCP - General Internal Medicine 09/24/19 documented as of this encounter
--- OUTSIDE RECORDS SUMMARY | 2024-07-25 11:01 | XMS_ITS | Encounter Summary ---
Author Organization [facility] Address [address] [place] [address] Care Team Providers Care Field Account Director Name Role Phone Ayan Clayton MD Primary Care Provider [phone] Encounter Details Date Type Department Care Team Description 03/23/2022 Orders Only [facility] Lung Screening Program [place] [address] [facility] [address] [place] [phone] Frank Hampton MD [address] [facility] [address] [place] [address] History of tobacco abuse Social History Tobacco [...] health documented in this encounter Care Teams Field Account Director Relationship Specialty Start Date End Date Ayan Clayton MD [address] [place] [address] PCP - General Internal Medicine 09/24/19 documented as of this encounter
--- OUTSIDE RECORDS SUMMARY | 2024-07-25 11:01 | XMS_ITS | Encounter Summary ---
Author Organization [facility] Address [address] [place] [address] Care Team Providers Care Kettle Loader Name Role Phone Daniel Mota MD Primary Care Provider Ayan Rubalcava MD Primary Care Provider [phone] Encounter Details Date Type Department Care Team Description 06/11/2018 Orders Only General Surgery - [place] [address] [facility] [address] [place] [address] Torrey Moreno MD [address] [place] [address] [address] [place], [place] [phone] Morbid obesity with BMI of 50.0-59.9, adult [...] (HCC) documented in this encounter Care Teams Kettle Loader Relationship Specialty Start Date End Date Daniel Mota MD PCP - General Internal Medicine 10/20/16 09/23/19 Ayan Clayton MD [address] [place] [address] PCP - General Internal Medicine 09/24/19 documented as of this encounter
--- OUTSIDE RECORDS SUMMARY | 2024-07-25 11:01 | XMS_ITS | Encounter Summary ---
Author Organization [facility] Address [address] [place] [address] Care Team Providers Care Sack Sewer Machine Name Role Phone Ayan Clayton MD Primary Care Provider [phone] Reason for Visit * Reason Comments E-prescribe Rx Request Encounter Details Date Type Department Care Team Description 11/14/2021 Refill General Surgery - [place] [address] [facility] [address] [place] [address] Torrey Moreno MD [address] [place] [address] [address] [place] [address] E-prescribe Rx Request Social History Tobacco Use [...] deficiency documented in this encounter Care Teams Sack Sewer Machine Relationship Specialty Start Date End Date Ayan Clayton MD [address] [place] [address] PCP - General Internal Medicine 09/24/19 documented as of this encounter
--- OUTSIDE RECORDS SUMMARY | 2024-07-25 11:01 | XMS_ITS | Encounter Summary ---
Author Organization [facility] Address [address] [place] [address] Care Team Providers Care Floral Design Teacher Name Role Phone Daniel Mota MD Primary Care Provider Ayan Rubalcava MD Primary Care Provider [phone] Reason for Visit * Reason Onset Date Comments Provider Call Back 12/04/2018 Encounter Details Date Type Department Care Team Description 12/04/2018 Telephone Adult Medicine [address] [address] Daniel Mota MD Provider Call Back Social [...] on filedocumented in this encounter Care Teams Floral Design Teacher Relationship Specialty Start Date End Date Daniel Mota MD PCP - General Internal Medicine 10/20/16 09/23/19 Ayan Clayton MD [address] [place] [address] PCP - General Internal Medicine 09/24/19 documented as of this encounter
--- OUTSIDE RECORDS SUMMARY | 2024-07-25 11:01 | XMS_ITS | Encounter Summary ---
Author Organization [facility] Address [address] [place] [address] Care Team Providers Care Vegetable Grower Name Role Phone Ayan Clayton MD Primary Care Provider Encounter Details Date Type Department Care Team Description 03/10/2022 Retail Agent Report Medical Records [address] [place] [address] Rell Leavitt Social History Tobacco Use Types [...] on filedocumented in this encounter Care Teams Vegetable Grower Relationship Specialty Start Date End Date Ayan Clayton MD [address] [place], [place] [phone] PCP - General Internal Medicine 09/24/19 documented as of this encounter
--- OUTSIDE RECORDS SUMMARY | 2024-07-25 11:01 | XMS_ITS | Encounter Summary ---
Author Organization [facility] Address [address] [place] [address] Care Team Providers Care Casey Saw Operator Name Role Phone Ayan Clayton MD Primary Care Provider [phone] Encounter Details Date Type Department Care Team Description 06/10/2023 Hospital Medical Records [address] [place] [address] Social History Tobacco Use Types Packs/Day Years [...] on filedocumented in this encounter Care Teams Casey Saw Operator Relationship Specialty Start Date End Date Ayan Clayton MD [address] [place] [phone] PCP - General Internal Medicine 09/24/19 documented as of this encounter
--- OUTSIDE RECORDS SUMMARY | 2024-07-25 11:01 | XMS_ITS | Encounter Summary ---
Author Organization [facility] Address [address] [place] [address] Care Team Providers Care Manufacturing Engineer Assembly Name Role Phone Ayan Clayton MD Primary Care Provider [phone] Encounter Details Date Type Department Care Team Description 04/21/2022 Surface Hydrologist Report Medical Records [address] [place] [address] Abstract, Provider Social History Tobacco Use Types [...] filedocumented in this encounter Care Teams Manufacturing Engineer Assembly Relationship Specialty Start Date End Date Ayan Clayton MD [address] [place], [place] [phone] PCP - General Internal Medicine 09/24/19 documented as of this encounter
--- OUTSIDE RECORDS SUMMARY | 2024-07-25 11:01 | XMS_ITS | Encounter Summary ---
Author Organization [facility] Address [address] [place] [address] Care Team Providers Care Cnc Milling Machine Operator Name Role Phone Daniel Mota MD Primary Care Provider Ayan Rubalcava MD Primary Care Provider [phone] Encounter Details Date Type Department Care Team Description 11/19/2018 Orders Only Medical Records [address] [place] [address] Abstract, Provider Social History Tobacco Use Types [...] on filedocumented in this encounter Care Teams Cnc Milling Machine Operator Relationship Specialty Start Date End Date Daniel Mota MD PCP - General Internal Medicine 10/20/16 09/23/19 Ayan Clayton MD [address] [place] [address] PCP - General Internal Medicine 09/24/19 documented as of this encounter
--- OUTSIDE RECORDS SUMMARY | 2024-07-25 11:01 | XMS_ITS | Encounter Summary ---
Author Organization [facility] Address [address] [place] [address] Care Team Providers Care Parts Sales Representative Name Role Phone Ayan Clayton MD Primary Care Provider [phone] Reason for Visit * Reason Comments E-prescribe Rx Request Encounter Details Date Type Department Care Team Description 02/15/2022 Refill Adult Medicine [facility] [address] [place], [place] [phone] Ayan Clayton MD [address] [place] [phone] E-prescribe Rx Request Social History Tobacco Use [...] / Plan: [place] / Product Type: MEDICARE [id number] documented in this encounter Plan of Treatment Not on file documented as of this encounter Visit Diagnoses Not on filedocumented in this encounter Care Teams Parts Sales Representative Relationship Specialty Start Date End Date Ayan Clayton MD [address] [place] [address] PCP - General Internal Medicine 09/24/19 documented as of this encounter
--- OUTSIDE RECORDS SUMMARY | 2024-07-25 11:01 | XMS_ITS | Encounter Summary ---
Author Organization [facility] Address [address] [place] [address] Care Team Providers Care Printing Manager Name Role Phone Daniel Mota MD Primary Care Provider [facility] Ayan Pulliam MD Primary Care Provider [phone] Reason for Visit * Reason Onset Date Comments Faxed Order 11/30/2018 Encounter Details Date Type Department Care Team Description 11/30/2018 Telephone Adult Medicine [address] [address] Daniel Mota MD Faxed Order Social History [...] 11/30/2018 10:00 AM EDT Fax orders from [facility], please sign and fax back. documented in this encounter Plan of Treatment Not on file documented as of this encounter Visit Diagnoses Not on filedocumented in this encounter Care Teams Printing Manager Relationship Specialty Start Date End Date Daniel Mota MD PCP - General Internal Medicine 10/20/16 09/23/19 Ayan Clayton MD [address] [place] [address] PCP - General Internal Medicine 09/24/19 documented as of this encounter
--- OUTSIDE RECORDS SUMMARY | 2024-07-25 11:01 | XMS_ITS | Encounter Summary ---
Author Organization [facility] Address [address] [place] [address] Care Team Providers Care Brewery Technician Name Role Phone Ayan Clayton MD Primary Care Provider [phone] Reason for Visit * Reason Comments E-prescribe Rx Request Encounter Details Date Type Department Care Team Description 02/15/2022 Refill Gastroenterology - [place] [address] [facility] [address] [place] [address] Jerrod Joe PA-C E-prescribe Rx [...] on filedocumented in this encounter Care Teams Brewery Technician Relationship Specialty Start Date End Date Ayan Clayton MD [address] [place] [address] PCP - General Internal Medicine 09/24/19 documented as of this encounter
--- OUTSIDE RECORDS SUMMARY | 2024-07-25 11:01 | XMS_ITS | Encounter Summary ---
Author Organization [facility] Address [address] [place] [address] Care Team Providers Care Patient Relations Liaison Name Role Phone Ayan Clayton MD Primary Care Provider [phone] Encounter Details Date Type Department Care Team Description 06/19/2023 Orders Only Medical Records [address] [place] [address] Bird Nielson Np Social History Tobacco Use [...] filedocumented in this encounter Care Teams Patient Relations Liaison Relationship Specialty Start Date End Date Ayan Clayton MD [address] [place], [place] [phone] PCP - General Internal Medicine 09/24/19 documented as of this encounter
--- OUTSIDE RECORDS SUMMARY | 2024-07-25 11:01 | XMS_ITS | Encounter Summary ---
Author Organization [facility] Address [address] [place] [address] Care Team Providers Care Lime Kiln Worker Name Role Phone Daniel Mota MD Primary Care Provider Unavail able Ayan Clayton MD Primary Care Provider [phone] Encounter Details Date Type Department Care Team Description 11/22/2018 Hospital Medical Records [address] [place] [address] Bashir Booth Social History Tobacco Use Types [...] on filedocumented in this encounter Care Teams Lime Kiln Worker Relationship Specialty Start Date End Date Daniel Mota MD PCP - General Internal Medicine 10/20/16 09/23/19 Ayan Clayton MD [address] [place] [address] PCP - General Internal Medicine 09/24/19 documented as of this encounter
--- OUTSIDE RECORDS SUMMARY | 2024-07-25 11:01 | XMS_ITS | Encounter Summary ---
Author Organization [facility] Address [address] [place] [address] Care Team Providers Care Keyboard Operator Name Role Phone Ayan Clayton MD Primary Care Provider [phone] Encounter Details Date Type Department Care Team Description 06/08/2023 PNO Controlled Substance Contract Medical Records [address] [place] [address] Abstract, Provider Social History Tobacco Use Types [...] on filedocumented in this encounter Care Teams Keyboard Operator Relationship Specialty Start Date End Date Ayan Clayton MD [address] [place] [address] PCP - General Internal Medicine 09/24/19 documented as of this encounter
--- OUTSIDE RECORDS SUMMARY | 2024-07-25 11:01 | XMS_ITS | Encounter Summary ---
Author Organization [facility] Address [address] [place] [address] Care Team Providers Care Dental Hygiene Administrative Assistant Name Role Phone Daniel Mota MD Primary Care Provider Unavail Victor Manuel Yu MD Primary Care Provider Unava ilable Daniel Mota MD Primary Care Provider Unavail Ayan Pulliam MD Primary Care Provider [phone] Victor Manuel Gonzales MD Primary Care Provider Unava ilmaximino Encounter Details Date Type Department Care Team Description 03/13/2006 [facility] Medical Records [address] [place] [address] Hugo Palacios MD Social History Tobacco Use [...] on filedocumented in this encounter Care Teams Dental Hygiene Administrative Assistant Relationship Specialty Start Date End Date Daniel Mota MD PCP - General 07/27/1994 12/22/15 Victor Manuel Gonzales MD PCP - General Internal Medicine 07/22/16 10/19/16 Daniel Mota MD PCP - General Internal Medicine 10/20/16 09/23/19 Ayan Clayton MD [address] [place] [address] PCP - General Internal Medicine 09/24/19 Victor Manuel Gonzales MD PCP - General 12/23/15 07/21/16 documented as of this encounter
--- OUTSIDE RECORDS SUMMARY | 2024-07-25 11:01 | XMS_ITS | Encounter Summary ---
Author Organization [facility] Address [address] [place] [address] Care Team Providers Care Chemistry Faculty Member Name Role Phone Daniel Mota MD Primary Care Provider [facility] Ayan Pulliam MD Primary Care Provider [phone] Encounter Details Date Type Department Care Team Description 10/17/2018 Orders Only Medical Records [address] [place] [address] Torrey Moreno MD [address] [place] [address] [address] [place] [address] Social History Tobacco Use Types Packs/Day Years [...] on filedocumented in this encounter Care Teams Chemistry Faculty Member Relationship Specialty Start Date End Date Daniel Mota MD PCP - General Internal Medicine 10/20/16 09/23/19 Ayan Clayton MD [address] [place] [address] PCP - General Internal Medicine 09/24/19 documented as of this encounter
--- OUTSIDE RECORDS SUMMARY | 2024-07-25 11:01 | XMS_ITS | Encounter Summary ---
Author Organization [facility] Address [address] [place] [address] Care Team Providers Care Web Design Instructor Name Role Phone Ayan Clayton MD Primary Care Provider [phone] Encounter Details Date Type Department Care Team Description 03/08/2022 Water Conservationist Report Medical Records [address] [place] [address] Blu Us I., PH.D Social History Tobacco [...] on filedocumented in this encounter Care Teams Web Design Instructor Relationship Specialty Start Date End Date Ayan Clayton MD [address] [place] [address] PCP - General Internal Medicine 09/24/19 documented as of this encounter
--- OUTSIDE RECORDS SUMMARY | 2024-07-25 11:02 | XMS_ITS | Encounter Summary ---
Author Organization [facility] Address [address] [place] [address] Care Team Providers Care Boat Canvas Installer Name Role Phone Daniel Mota MD Primary Care Provider Ayan Rubalcava MD Primary Care Provider [phone] Reason for Visit * Reason Onset Date Comments radiology 02/04/2019 Encounter Details Date Type Department Care Team Description 02/04/2019 Telephone MRI - [place] [address] [place] [address] Yonis Servin PA-C radiology Social History Tobacco [...] filedocumented in this encounter Care Teams Boat Canvas Installer Relationship Specialty Start Date End Date Daniel Mota MD PCP - General Internal Medicine 10/20/16 09/23/19 Ayan Clayton MD [address] [place], [place] [phone] PCP - General Internal Medicine 09/24/19 documented as of this encounter
--- OUTSIDE RECORDS SUMMARY | 2024-07-25 11:02 | XMS_ITS | Encounter Summary ---
Author Organization [facility] Address [address] [place] [address] Care Team Providers Care Cipher Expert Name Role Phone Ayan Clayton MD Primary Care Provider [phone] Reason for Visit * Reason Onset Date Comments VNA Call 08/31/2023 Encounter Details Date Type Department Care Team Description 08/31/2023 Telephone Adult Medicine [address] [phone] Ayan Clayton MD [address] [place] [phone] VNA Call Social History Tobacco Use Types [...] - 08/31/2023 11:56 AM EDT [facility] Ortho gave the original order for PTand OT Please review and advise Please send response to the VNA pool P [id number] Thank you Last visit08/01/23 documented in this encounter Plan of Treatment Not on file documented as of this encounter Visit Diagnoses Not on filedocumented in this encounter Care Teams Cipher Expert Relationship Specialty Start Date End Date Ayan Clayton MD [address] [place] [address] PCP - General Internal Medicine 09/24/19 documented as of this encounter
--- OUTSIDE RECORDS SUMMARY | 2024-07-25 11:02 | XMS_ITS | Encounter Summary ---
Author Organization [facility] Address [address] [place] [address] Care Team Providers Care Fabricator Industrial Furnace Name Role Phone Ayan Clayton MD Primary Care Provider [phone] Encounter Details Date Type Department Care Team Description 07/03/2023 Orders Only Medical Records [address] [place] [address] Social History Tobacco Use Types Packs/Day Years [...] [facility] * OUTSIDE CT (06/10/2023) [facility] RADIOLOGY * OUTSIDE MRI/MRA (06/10/2023) [facility] RADIOLOGY documented in this encounter Visit Diagnoses Not on filedocumented in this encounter Care Teams Fabricator Industrial Furnace Relationship Specialty Start Date End Date Ayan Clayton MD [address] [place] [address] PCP - General Internal Medicine 09/24/19 documented as of this encounter
--- OUTSIDE RECORDS SUMMARY | 2024-07-25 11:02 | XMS_ITS | Encounter Summary ---
Author Organization [facility] Address [address] [place] [address] Care Team Providers Care Crossbar Frame Wirer Name Role Phone Daniel Mota MD Primary Care Provider Unavail Victor Manuel Yu MD Primary Care Provider Unava ilable Daniel Mota MD Primary Care Provider Unavail Ayan Pulliam MD Primary Care Provider [phone] Victor Manuel Gonzales MD Primary Care Provider Justinava jaxson Encounter Details Date Type Department Care Team Description 11/07/2012 Release of Information Medical Records [address] [place] [address] Abstract, Provider Social History Tobacco Use Types [...] on filedocumented in this encounter Care Teams Crossbar Frame Wirer Relationship Specialty Start Date End Date Daniel Mota MD PCP - General 07/27/1994 12/22/15 Victor Manuel Gonzales MD PCP - General Internal Medicine 07/22/16 10/19/16 Daniel Mota MD PCP - General Internal Medicine 10/20/16 09/23/19 Ayan Clayton MD [address] [place] [address] PCP - General Internal Medicine 09/24/19 Victor Manuel Gonzales MD PCP - General 12/23/15 07/21/16 documented as of this encounter
--- OUTSIDE RECORDS SUMMARY | 2024-07-25 11:02 | XMS_ITS | Encounter Summary ---
Author Organization [facility] Address [address] [place] [address] Care Team Providers Care Air Brake Rigger Name Role Phone Daniel Mota MD Primary Care Provider Unavail Victor Manuel Yu MD Primary Care Provider Unava ilable Daniel Mota MD Primary Care Provider Unavail able Ayan Clayton MD Primary Care Provider [phone] Victor Manuel Gonzales MD Primary Care Provider Unava ilable Reason for Referral * Specialist (Routine) - Authorized/Booked Specialty Diagnoses / Procedures Referred By Contact Referred To Contact INTERVENTIONAL RADIOLOGY Procedures REFERRAL TO INTERVENTIONAL RADIOLOGY Bharath Rico MD [address] [place] [address] Ext Interventional Rad Referral ID Status Reason Start Date Expiration Date V isits Requested Visits Authorized SEE REVIEW 11/06/12 Authorized/ Booked 11/27/2012 02/27/2013 1 1 * Specialist (Routine) - Authorized/Booked Specialty Diagnoses / Procedures Referred By Contact Referred To Contact INTERVENTIONAL RADIOLOGY Diagnoses Lymphadenopathy Procedures REFERRAL TO INTERVENTIONAL RADIOLOGY Bharath Rico MD [address] [place] [address] Ext Interventional Rad Referral ID Status Reason Start Date Expiration Date V isits Requested Visits Authorized SEE REVIEW 11/06/12 Authorized/ Booked 11/27/2012 02/27/2013 1 1 Encounter Details Date Type Department Care Team Description 11/27/2012 Orders Only General Surgery [address] [place] [address] Bharath Rico MD [address] [place] [address] Lymphadenopathy (Primary Dx) Social History Tobacco Use [...] nodes documented in this encounter Care Teams Air Brake Rigger Relationship Specialty Start Date End Date Daniel Mota MD PCP - General 07/27/1994 12/22/15 Victor Manuel Gonzales MD PCP - General Internal Medicine 07/22/16 10/19/16 Daniel Mota MD PCP - General Internal Medicine 10/20/16 09/23/19 Ayan Clayton MD [address] [place] [address] PCP - General Internal Medicine 09/24/19 Victor Manuel Gonzales MD PCP - General 12/23/15 07/21/16 documented as of this encounter
--- OUTSIDE RECORDS SUMMARY | 2024-07-25 11:02 | XMS_ITS | Encounter Summary ---
Author Organization [facility] Address [address] [place] [address] Care Team Providers Care Jet Inspector Name Role Phone Daniel Mota MD Primary Care Provider Unavail Victor Manuel Yu MD Primary Care Provider Unava ilable Daniel Mota MD Primary Care Provider Unavail Ayan Pulliam MD Primary Care Provider [phone] Victor Manuel Gonzales MD Primary Care Provider Unava ilable Reason for Visit * Reason Onset Date Comments Provider Call Back 10/15/2013 Medication 10/15/2013 Encounter Details Date Type Department Care Team Description 10/15/2013 Telephone Physiatry - [place] [address] [place] [address] Surjit Reese DO Provider Call Back; Medication [...] in service per recording Message sent via [employer] * Telephone Encounter - Surjit Reese - [...] is at work. She works at [email or web address] until 11 pm. She wants to stop [...] unspecified documented in this encounter Care Teams Jet Inspector Relationship Specialty Start Date End Date Daniel Mota MD PCP - General 07/27/1994 12/22/15 Victor Manuel Gonzales MD PCP - General Internal Medicine 07/22/16 10/19/16 Daniel Mota MD PCP - General Internal Medicine 10/20/16 09/23/19 Ayan Clayton MD [address] [place] [address] PCP - General Internal Medicine 09/24/19 Victor Manuel Gonzales MD PCP - General 12/23/15 07/21/16 documented as of this encounter
--- OUTSIDE RECORDS SUMMARY | 2024-07-25 11:02 | XMS_ITS | Encounter Summary ---
Author Organization [facility] Address [address] [place] [address] Care Team Providers Care Glass Sander Name Role Phone Ayan Clayton MD Primary Care Provider [phone] Reason for Visit * Reason Onset Date Comments Pre Op Visit 08/24/2023 Encounter Details Date Type Department Care Team Description 08/24/2023 Telephone Adult Medicine - [place] [address] [place] [address] Ayan Clayton MD [address] [place] [address] Pre Op Visit Social History Tobacco Use [...] Elisabeth Del Angel Patient Services / Pre-Op Paraffin Plant Operator Extension - [id number] documented in this encounter Plan of Treatment Not on file documented as of this encounter Visit Diagnoses Not on filedocumented in this encounter Care Teams Glass Sander Relationship Specialty Start Date End Date Ayan Clayton MD [address] [place] [address] PCP - General Internal Medicine 09/24/19 documented as of this encounter
--- OUTSIDE RECORDS SUMMARY | 2024-07-25 11:02 | XMS_ITS | Encounter Summary ---
Author Organization [facility] Address [address] [place] [address] Care Team Providers Care Notcher Name Role Phone Ayan Clayton MD Primary Care Provider [phone] Encounter Details Date Type Department Care Team Description 05/01/2023 Expanding Machine Operator Report Medical Records [address] [place] [address] Rell Leavitt Social History Tobacco Use Types [...] on filedocumented in this encounter Care Teams Notcher Relationship Specialty Start Date End Date Ayan Clayton MD [address] [place], [place] [phone] PCP - General Internal Medicine 09/24/19 documented as of this encounter
--- OUTSIDE RECORDS SUMMARY | 2024-07-25 11:02 | XMS_ITS | Encounter Summary ---
Author Organization [facility] Address [address] [place] [address] Care Team Providers Care Supervisor Fleshing Name Role Phone Daniel Mota MD Primary Care Provider Unavail Victor Manuel Yu MD Primary Care Provider Unava ilable Daniel Mota MD Primary Care Provider Unavail Ayan Pulliam MD Primary Care Provider [phone] Victor Manuel Gonzales MD Primary Care Provider Unava ilable Reason for Visit * Reason Onset Date Comments Faxed Refill 08/16/2013 Encounter Details Date Type Department Care Team Description 08/16/2013 Telephone Adult Medicine [address] [address] Daniel Mota MD Faxed Refill Social History [...] filedocumented in this encounter Care Teams Supervisor Fleshing Relationship Specialty Start Date End Date Daniel Mota MD PCP - General 07/27/1994 12/22/15 Victor Manuel Gonzales MD PCP - General Internal Medicine 07/22/16 10/19/16 Daniel Mota MD PCP - General Internal Medicine 10/20/16 09/23/19 Ayan Clayton MD [address] [place] [address] PCP - General Internal Medicine 09/24/19 Victor Manuel Gonzales MD PCP - General 12/23/15 07/21/16 documented as of this encounter
--- OUTSIDE RECORDS SUMMARY | 2024-07-25 11:02 | XMS_ITS | Encounter Summary ---
Author Organization [facility] Address [address] [place] [address] Care Team Providers Care Plastic Duplicator Name Role Phone Daniel Mota MD Primary Care Provider Unavail Victor Manuel Yu MD Primary Care Provider Unava ilable Daniel Mota MD Primary Care Provider Unavail Ayan Pulliam MD Primary Care Provider [phone] Victor Manuel Gonzales MD Primary Care Provider Unava ilmaximino Encounter Details Date Type Department Care Team Description 12/11/2013 BICYCLE TAXI DRIVER/MassPat Report Medical Records [address] [place] [address] Abstract, Provider Social History Tobacco Use Types [...] on filedocumented in this encounter Care Teams Plastic Duplicator Relationship Specialty Start Date End Date Daniel Mota MD PCP - General 07/27/1994 12/22/15 Victor Manuel Gonzales MD PCP - General Internal Medicine 07/22/16 10/19/16 Daniel Mota MD PCP - General Internal Medicine 10/20/16 09/23/19 Ayan Clayton MD [address] [place] [address] PCP - General Internal Medicine 09/24/19 Victor Manuel Gonzales MD PCP - General 12/23/15 07/21/16 documented as of this encounter
--- OUTSIDE RECORDS SUMMARY | 2024-07-25 11:02 | XMS_ITS | Encounter Summary ---
Author Organization [facility] Address [address] [place] [address] Care Team Providers Care Teasel Setter Name Role Phone Ayan Clayton MD Primary Care Provider [phone] Encounter Details Date Type Department Care Team Description 01/03/2024 Telephone Adult Medicine [facility] [address] [place] [address] [phone] Ayan Clayton MD [address] [place] [address] [phone] Social History Tobacco Use Types Packs/Day Years [...] on filedocumented in this encounter Care Teams Teasel Setter Relationship Specialty Start Date End Date Ayan Clayton MD [address] [place] [address] PCP - General Internal Medicine 09/24/19 documented as of this encounter
--- OUTSIDE RECORDS SUMMARY | 2024-07-25 11:02 | XMS_ITS | Encounter Summary ---
Author Organization [facility] Address [address] [place] [address] Care Team Providers Care Oil Recovery Operator Name Role Phone Daniel Mota MD Primary Care Provider [facility] Ayan Pulliam MD Primary Care Provider [phone] Encounter Details Date Type Department Care Team Description 02/15/2019 Orders Only General Surgery - [place] [address] [facility] [address] [place] [address] Torrey Moreno MD [address] [place] [address] DRIVE [address] [place], [place] [phone] Other complications of other bariatric procedure Social [...] procedure documented in this encounter Care Teams Oil Recovery Operator Relationship Specialty Start Date End Date Daniel Mota MD PCP - General Internal Medicine 10/20/16 09/23/19 Ayan Clayton MD [address] [place] [address] PCP - General Internal Medicine 09/24/19 documented as of this encounter
--- OUTSIDE RECORDS SUMMARY | 2024-07-25 11:02 | XMS_ITS | Encounter Summary ---
Author Organization [facility] Address [address] [place] [address] Care Team Providers Care Electronic Gaming Device Supervisor Name Role Phone Daniel Mota MD Primary Care Provider Unavail able Ayan Clayton MD Primary Care Provider [phone] Encounter Details Date Type Department Care Team Description 02/25/2019 Orders Only Adult Medicine [address] [address] Daniel Mota MD Social History Tobacco Use [...] filedocumented in this encounter Care Teams Electronic Gaming Device Supervisor Relationship Specialty Start Date End Date Daniel Mota MD PCP - General Internal Medicine 10/20/16 09/23/19 Ayan Clayton MD [address] [place] [address] [phone] PCP - General Internal Medicine 09/24/19 documented as of this encounter
--- OUTSIDE RECORDS SUMMARY | 2024-07-25 11:02 | XMS_ITS | Encounter Summary ---
Author Organization [facility] Address [address] [place] [address] Care Team Providers Care Broadcast News Producer Name Role Phone Daniel Mota MD Primary Care Provider Unavail Victor Manuel Yu MD Primary Care Provider Unava ilable Daniel Mota MD Primary Care Provider Unavail Ayan Pulliam MD Primary Care Provider [phone] Victor Manuel Gonzales MD Primary Care Provider Unava jaxson Encounter Details Date Type Department Care Team Description 01/22/2013 Pt. Non Urgent Medic al Question Adult Medicine [address] [address] Daniel Mota MD Social History Tobacco Use [...] on filedocumented in this encounter Care Teams Broadcast News Producer Relationship Specialty Start Date End Date Daniel Mota MD PCP - General 07/27/1994 12/22/15 Victor Manuel Gonzales MD PCP - General Internal Medicine 07/22/16 10/19/16 Daniel Mota MD PCP - General Internal Medicine 10/20/16 09/23/19 Ayan Clayton MD [address] [place], [place] [phone] PCP - General Internal Medicine 09/24/19 Victor Manuel Gonzales MD PCP - General 12/23/15 07/21/16 documented as of this encounter
--- OUTSIDE RECORDS SUMMARY | 2024-07-25 11:02 | XMS_ITS | Encounter Summary ---
Author Organization [facility] Address [address] [place] [address] Care Team Providers Care Press Tender Star Signal Name Role Phone Daniel Mota MD Primary Care Provider [facility] Ayan Pulliam MD Primary Care Provider [phone] Reason for Visit * Reason Onset Date Comments Faxed Order 12/14/2018 Encounter Details Date Type Department Care Team Description 12/14/2018 Telephone Adult Medicine [address] [address] Daniel Mota MD Faxed Order Social History [...] 10:26 AM EDT Faxed order received from [facility], please sign date and return order to fax number [phone]. * Telephone Encounter - Rosa Latham - 12/14/2018 9:35 AM EDT Physician Order for Dr. Daniel Mota's signature documented in this encounter Plan of Treatment Not on file documented as of this encounter Visit Diagnoses Not on filedocumented in this encounter Care Teams Press Tender Star Signal Relationship Specialty Start Date End Date Daniel Mota MD PCP - General Internal Medicine 10/20/16 09/23/19 Ayan Clayton MD [address] [place] [address] PCP - General Internal Medicine 09/24/19 documented as of this encounter
--- OUTSIDE RECORDS SUMMARY | 2024-07-25 11:02 | XMS_ITS | Encounter Summary ---
Author Organization [facility] Address [address] [place] [address] Care Team Providers Care Lumber Driver Name Role Phone Daniel Mota MD Primary Care Provider Unavail Victor Manuel Yu MD Primary Care Provider Unava ilable Daniel Mota MD Primary Care Provider Unavail Ayan uPlliam MD Primary Care Provider Victor Manuel Gonzales MD Primary Care Provider Justinava jaxson Encounter Details Date Type Department Care Team Description 11/27/2013 Controlled Substance Plan Medical Records [address] [place] [address] Abstract, Provider Social History Tobacco Use Types [...] on filedocumented in this encounter Care Teams Lumber Driver Relationship Specialty Start Date End Date Daniel Mota MD PCP - General 07/27/1994 12/22/15 Victor Manuel Gonzales MD PCP - General Internal Medicine 07/22/16 10/19/16 Daniel Mota MD PCP - General Internal Medicine 10/20/16 09/23/19 Ayan Clayton MD [address] [place] [address] PCP - General Internal Medicine 09/24/19 Victor Manuel Gonzales MD PCP - General 12/23/15 07/21/16 documented as of this encounter
--- OUTSIDE RECORDS SUMMARY | 2024-07-25 11:02 | XMS_ITS | Encounter Summary ---
Author Organization [facility] [place] [facility] Address [address] [place] [address] Care Team Providers Care Cardiac Cath Lab Manager Name Role Phone Daniel Mota MD Primary Care Provider Unavail able Ayan Clayton MD Primary Care Provider [phone] Encounter Details Date Type Department Care Team Description 08/21/2019 Compliance Program Manager Report Medical Records [address] [place] [id number] Ta Garcia MD Social History Tobacco Use [...] on filedocumented in this encounter Care Teams Cardiac Cath Lab Manager Relationship Specialty Start Date End Date Daniel Mota MD PCP - General Internal Medicine 10/20/16 09/23/19 Ayan Clayton MD [address] [place], [place] [phone] PCP - General Internal Medicine 09/24/19 documented as of this encounter
--- OUTSIDE RECORDS SUMMARY | 2024-07-25 11:03 | XMS_ITS | Encounter Summary ---
Author Organization [facility] Address [address] [place] [address] Care Team Providers Care Traffic Control Flagger Name Role Phone Daniel Mota MD Primary Care Provider Unavail able Ayan Clayton MD Primary Care Provider [phone] Encounter Details Date Type Department Care Team Description 05/07/2019 Drug Purchaser Report Medical Records [address] [place] [address] Ta Garcia MD Social History Tobacco Use [...] filedocumented in this encounter Care Teams Traffic Control Flagger Relationship Specialty Start Date End Date Daniel Mota MD PCP - General Internal Medicine 10/20/16 09/23/19 Ayan Clayton MD [address] [place] [address] [phone] PCP - General Internal Medicine 09/24/19 documented as of this encounter
--- OUTSIDE RECORDS SUMMARY | 2024-07-25 11:03 | XMS_ITS | Encounter Summary ---
Author Organization [facility] Address [address] [place] [address] Care Team Providers Care Fiber Design Engineer Name Role Phone Ayan Clayton MD Primary Care Provider [phone] Reason for Visit * Reason Onset Date Comments Faxed Order 12/06/2019 Encounter Details Date Type Department Care Team Description 12/06/2019 Telephone Adult Medicine [facility] [address] [place] [address] [id number] Ayan Clayton MD [address] [place] [address] [phone] Faxed Order Social History Tobacco Use Types [...] pass this call to me at EX [phone] Thank you * Telephone Encounter - Mela Benton R.N. - 12/09/2019 10:21 AM EDT We need a face to face for VNA. Last visit 11/20 * Telephone Encounter - Noemi Sanders - 12/09/2019 10:10 AM EDT [facility] at [facility] needs face to face faxed to him today Phone [phone] * Telephone Encounter - Tara Roe - 12/06/2019 2:16 PM EDT FAXED IN DR CATALAN[employer] [employer] SIGNATURE AND TO BE FAXED BACK TO [phone] documented in this encounter Plan of Treatment Not on file documented as of this encounter Visit Diagnoses Not on filedocumented in this encounter Care Teams Fiber Design Engineer Relationship Specialty Start Date End Date Ayan Clayton MD [address] [place] [address] PCP - General Internal Medicine 09/24/19 documented as of this encounter
--- OUTSIDE RECORDS SUMMARY | 2024-07-25 11:03 | XMS_ITS | Encounter Summary ---
Author Organization [facility] Address [address] [place] [address] Care Team Providers Care Truck Cleaner Name Role Phone Daniel Mota MD Primary Care Provider Unavail able Ayan Clayton MD Primary Care Provider [phone] Encounter Details Date Type Department Care Team Description 07/17/2019 Lead Based Paint Technician Report Medical Records [address] [place] [address] Ta Garcia MD Social History Tobacco Use [...] filedocumented in this encounter Care Teams Truck Cleaner Relationship Specialty Start Date End Date Daniel Mota MD PCP - General Internal Medicine 10/20/16 09/23/19 Ayan Clayton MD [address] [place] [address] [phone] PCP - General Internal Medicine 09/24/19 documented as of this encounter
--- OUTSIDE RECORDS SUMMARY | 2024-07-25 11:03 | XMS_ITS | Encounter Summary ---
Author Organization [facility] Address [address] [place] [address] Care Team Providers Care Nursing Home Manager Name Role Phone Ayan Clayton MD Primary Care Provider [phone] Reason for Visit * Reason Onset Date Comments DME Request 10/15/2019 [facility] Encounter Details Date Type Department Care Team Description 10/15/2019 Telephone Adult Medicine [facility] [address] [place] [address] [phone] Ayan Clayton MD [address] [place] [address] [phone] DME Request ([facility]) Social History Tobacco Use [...] - 10/23/2019 11:56 AM EDT Keyla from [employer] called in looking for an update would like a call back. Keyla direct line is [phone]. * Telephone Encounter - Whitley Wright - 10/15/2019 5:48 PM EDT [facility]. documented in this encounter Plan of Treatment Not on file documented as of this encounter Visit Diagnoses Not on filedocumented in this encounter Care Teams Nursing Home Manager Relationship Specialty Start Date End Date Ayan Clayton MD [address] [place] [address] PCP - General Internal Medicine 09/24/19 documented as of this encounter
--- OUTSIDE RECORDS SUMMARY | 2024-07-25 11:03 | XMS_ITS | Encounter Summary ---
Author Organization [facility] Address [address] [place] [address] Care Team Providers Care Manufacturing Project Engineer Name Role Phone Ayan Clayton MD Primary Care Provider [phone] Encounter Details Date Type Department Care Team Description 11/05/2019 Hospital Medical Records [address] [place] [address] [facility] Medical Social History Tobacco [...] filedocumented in this encounter Care Teams Manufacturing Project Engineer Relationship Specialty Start Date End Date Ayan Clayton MD [address] [place], [place] [phone] PCP - General Internal Medicine 09/24/19 documented as of this encounter
--- OUTSIDE RECORDS SUMMARY | 2024-07-25 11:03 | XMS_ITS | Encounter Summary ---
Author Organization [facility] Address [address] [place] [address] Care Team Providers Care Integration Architect Name Role Phone Daniel Mota MD Primary Care Provider Unavail able Ayan Clayton MD Primary Care Provider Encounter Details Date Type Department Care Team Description 04/11/2019 Release of Information Medical Records [address] [place] [address] Abstract, Provider Social History Tobacco Use Types [...] on filedocumented in this encounter Care Teams Integration Architect Relationship Specialty Start Date End Date Daniel Mota MD PCP - General Internal Medicine 10/20/16 09/23/19 Ayan Clayton MD [address] [place] [address] PCP - General Internal Medicine 09/24/19 documented as of this encounter
--- OUTSIDE RECORDS SUMMARY | 2024-07-25 11:03 | XMS_ITS | Encounter Summary ---
Author Organization [facility] Address [address] [place] [address] Care Team Providers Care Rv Repairer Name Role Phone Ayan Clayton MD Primary Care Provider [phone] Encounter Details Date Type Department Care Team Description 01/27/2020 Refill Adult Medicine [address] [phone] Ayan Clayton MD [address] [place] [address] [phone] Social History Tobacco Use Types Packs/Day Years [...] filedocumented in this encounter Care Teams Rv Repairer Relationship Specialty Start Date End Date Ayan Clayton MD [address] [place] [address] [phone] PCP - General Internal Medicine 09/24/19 documented as of this encounter
--- OUTSIDE RECORDS SUMMARY | 2024-07-25 11:03 | XMS_ITS | Encounter Summary ---
Author Organization [facility] Address [address] [place] [address] Care Team Providers Care Auto Clutch Rebuilder Name Role Phone Ayan Clayton MD Primary Care Provider [phone] Encounter Details Date Type Department Care Team Description 05/25/2020 Old Medical Records Medical Records [address] [place] [address] Abstract, Provider Social History Tobacco Use Types [...] on filedocumented in this encounter Care Teams Auto Clutch Rebuilder Relationship Specialty Start Date End Date Ayan Clayton MD [address] [place], [place] [phone] PCP - General Internal Medicine 09/24/19 documented as of this encounter
--- OUTSIDE RECORDS SUMMARY | 2024-07-25 11:03 | XMS_ITS | Encounter Summary ---
Author Organization [facility] Address [address] [place] [address] Care Team Providers Care Logistics Manager Name Role Phone Ayan Clayton MD Primary Care Provider [phone] Reason for Visit * Reason Onset Date Comments Faxed Order 11/19/2019 allied Encounter Details Date Type Department Care Team Description 11/19/2019 Telephone Adult Medicine [facility] [address] [place], [place] [phone] Ayan Clayton MD [address] [place] [address] [phone] Faxed Order (allied) Social History Tobacco Use [...] filedocumented in this encounter Care Teams Logistics Manager Relationship Specialty Start Date End Date Ayan Clayton MD [address] [place] [address] PCP - General Internal Medicine 09/24/19 documented as of this encounter
--- OUTSIDE RECORDS SUMMARY | 2024-07-25 11:03 | XMS_ITS | Encounter Summary ---
Author Organization [facility] Address [address] [place] [address] Care Team Providers Care Derrick Barge Operator Name Role Phone Ayan Clayton MD Primary Care Provider [phone] Reason for Visit * Reason Comments E-prescribe Rx Request Encounter Details Date Type Department Care Team Description 01/23/2020 Refill Adult Medicine [facility] [address] [place], [place] [phone] Ayan Clayton MD [address] [place] [address] [phone] E-prescribe Rx Request Social History Tobacco Use [...] Patients current insurance carrier is: Payor: [facility] MCR / Plan: ONE CARE [facility] / Product Type: HMO [id number] documented in this encounter Plan of Treatment Not on file documented as of this encounter Visit Diagnoses Not on filedocumented in this encounter Care Teams Derrick Barge Operator Relationship Specialty Start Date End Date Ayan Clayton MD [address] [place] [phone] PCP - General Internal Medicine 09/24/19 documented as of this encounter
--- OUTSIDE RECORDS SUMMARY | 2024-07-25 11:03 | XMS_ITS | Encounter Summary ---
Author Organization [facility] Address [address] [place] [address] Care Team Providers Care Inventory Control Manager Name Role Phone Daniel Mota MD Primary Care Provider Unavail Victor Manuel Yu MD Primary Care Provider Unava ilable Daniel Mota MD Primary Care Provider Unavail Ayan Pulliam MD Primary Care Provider [phone] Victor Manuel Gonzales MD Primary Care Provider Unava ilmaximino Encounter Details Date Type Department Care Team Description 05/19/2014 Hospital Medical Records [address] [place] [address] Antoinette Quevedo MD [address] [place] [address] Social History Tobacco Use Types Packs/Day Years [...] on filedocumented in this encounter Care Teams Inventory Control Manager Relationship Specialty Start Date End Date Daniel Mota MD PCP - General 07/27/1994 12/22/15 Victor Manuel Gonzales MD PCP - General Internal Medicine 07/22/16 10/19/16 Daniel Mota MD PCP - General Internal Medicine 10/20/16 09/23/19 Ayan Clayton MD [address] [place] [address] PCP - General Internal Medicine 09/24/19 Victor Manuel Gonzales MD PCP - General 12/23/15 07/21/16 documented as of this encounter
--- OUTSIDE RECORDS SUMMARY | 2024-07-25 11:03 | XMS_ITS | Encounter Summary ---
Author Organization [facility] [place] [facility] Address [address] [place] [address] Care Team Providers Care Coal Wheeler Name Role Phone Daniel Mota MD Primary Care Provider Unavail able Ayan Clayton MD Primary Care Provider [phone] Encounter Details Date Type Department Care Team Description 04/15/2019 Assembler Dielectric Heater Report Medical Records [address] [place] [address] Bharath Block PA-C Social History Tobacco Use [...] on filedocumented in this encounter Care Teams Coal Wheeler Relationship Specialty Start Date End Date Daniel Mota MD PCP - General Internal Medicine 10/20/16 09/23/19 Ayan Clayton MD [address] [place], [place] [phone] PCP - General Internal Medicine 09/24/19 documented as of this encounter
--- OUTSIDE RECORDS SUMMARY | 2024-07-25 11:03 | XMS_ITS | Encounter Summary ---
Author Organization [facility] Address [address] [place] [address] Care Team Providers Care Territory Development Manager Name Role Phone Ayan Clayton MD Primary Care Provider [phone] Reason for Visit * Reason Onset Date Comments Faxed Order 01/28/2020 Encounter Details Date Type Department Care Team Description 01/28/2020 Telephone Adult Medicine [facility] [address] [place] [address] [phone] Ayan Clayton MD [address] [place] [address] [phone] Faxed Order Social History Tobacco Use Types [...] on filedocumented in this encounter Care Teams Territory Development Manager Relationship Specialty Start Date End Date Ayan Clayton MD [address] [place] [address] PCP - General Internal Medicine 09/24/19 documented as of this encounter
--- OUTSIDE RECORDS SUMMARY | 2024-07-25 11:03 | XMS_ITS | Encounter Summary ---
Author Organization [facility] Address [address] [place] [address] Care Team Providers Care Director Personal Name Role Phone Ayan Clayton MD Primary Care Provider [phone] Reason for Visit * Reason Onset Date Comments Bariatric Weight Check 07/29/2020 Encounter Details Date Type Department Care Team Description 07/29/2020 Telephone General Surgery - [address] [place] [address] Liana Churchill, ,RDN,LDN Bariatric Weight [...] filedocumented in this encounter Care Teams Director Personal Relationship Specialty Start Date End Date Ayan Clayton MD [address] [place] [address] PCP - General Internal Medicine 09/24/19 documented as of this encounter
--- OUTSIDE RECORDS SUMMARY | 2024-07-25 11:03 | XMS_ITS | Encounter Summary ---
Author Organization [facility] Address [address] [place] [address] Care Team Providers Care Edi Architect Name Role Phone Ayan Clayton MD Primary Care Provider Reason for Referral * EXTERNAL (Routine) - Authorized/Booked Specialty Diagnoses / Procedures Referred By Contac t Referred To Contact Endocrinology Diagnoses Low serum parathyroid hormone (PTH) Procedures REFERRAL TO ENDOCRINOLOGY Ayan Clayton MD [address] [place] [address] [facility] Endocrine And Diabetes Referral ID Status Reason Start Date Expiration Date V isits Requested Visits Authorized [id number] Authorized/B ooked 08/27/2020 12/22/2020 1 1 Encounter Details Date Type Department Care Team Description 08/27/2020 Telephone Adult Medicine [address] [phone] Ayan Clayton MD [address] [place] [address] [phone] Social History Tobacco Use Types Packs/Day Years [...] levels documented in this encounter Care Teams Edi Architect Relationship Specialty Start Date End Date Ayan Clayton MD [address] [place] [address] PCP - General Internal Medicine 09/24/19 documented as of this encounter
--- OUTSIDE RECORDS SUMMARY | 2024-07-25 11:03 | XMS_ITS | Encounter Summary ---
Author Organization [facility] Address [address] [place] [address] Care Team Providers Care Fiberglass Roller Name Role Phone Daniel Mota MD Primary Care Provider Unavail Victor Manuel Yu MD Primary Care Provider Unava ilable Daniel Mota MD Primary Care Provider Unavail Ayan Pulliam MD Primary Care Provider [phone] Victor Manuel [place] MD Primary Care Provider Unava ilable Reason for Visit * Reason Onset Date Comments Sinus Problem 07/30/2014 Encounter Details Date Type Department Care Team Description 07/30/2014 Telephone Adult Medicine [address] [address] Daniel Mota MD Sinus Problem Social History [...] on filedocumented in this encounter Care Teams Fiberglass Roller Relationship Specialty Start Date End Date Daniel Mota MD PCP - General 07/27/1994 12/22/15 Victor Manuel Gonzales MD PCP - General Internal Medicine 07/22/16 10/19/16 Daniel Mota MD PCP - General Internal Medicine 10/20/16 09/23/19 Ayan Clayton MD [address] [place], [place] [phone] PCP - General Internal Medicine 09/24/19 Victor Manuel [place] MD PCP - General 12/23/15 07/21/16 documented as of this encounter
--- OUTSIDE RECORDS SUMMARY | 2024-07-25 11:03 | XMS_ITS | Encounter Summary ---
Author Organization [facility] Address [address] [place] [address] Care Team Providers Care Call Center Coordinator Name Role Phone Ayan Clayton MD Primary Care Provider [phone] Reason for Visit * Reason Onset Date Comments Information Needed 10/10/2019 Prior Authorization 10/10/2019 Encounter Details Date Type Department Care Team Description 10/10/2019 Telephone Pulmonology - [place] [address] [facility] [address] [place] [phone] Carlos Hurley MD [address] [facility] [address] [place] [address] Information Needed; Prior Authorization Social [...] on filedocumented in this encounter Care Teams Call Center Coordinator Relationship Specialty Start Date End Date Ayan Clayton MD [address] [place] [address] PCP - General Internal Medicine 09/24/19 documented as of this encounter
--- OUTSIDE RECORDS SUMMARY | 2024-07-25 11:03 | XMS_ITS | Encounter Summary ---
Author Organization [facility] Address [address] [place] [address] Care Team Providers Care Manager Community Name Role Phone Daniel Mota MD Primary Care Provider Unavail Victor Manuel Yu MD Primary Care Provider Unava ilable Daniel Mota MD Primary Care Provider Unavail Ayan Pulliam MD Primary Care Provider Victor Manuel [place] MD Primary Care Provider Unava ilable Reason for Visit * Reason Comments Encounter Details Date Type Department Care Team Description 11/18/2015 Telephone Podiatry - [place] [address] [place] [address] Skylar Hanna DPM Social History Tobacco Use [...] filedocumented in this encounter Care Teams Manager Community Relationship Specialty Start Date End Date Daniel Mota MD PCP - General 07/27/1994 12/22/15 Victor Manuel Gonzales MD PCP - General Internal Medicine 07/22/16 10/19/16 Daniel Mota MD PCP - General Internal Medicine 10/20/16 09/23/19 Ayan Clayton MD [address] [place] [address] PCP - General Internal Medicine 09/24/19 Victor Manuel [place] MD PCP - General 12/23/15 07/21/16 documented as of this encounter
--- OUTSIDE RECORDS SUMMARY | 2024-07-25 11:03 | XMS_ITS | Encounter Summary ---
Author Organization [facility] Address [address] [place] [address] Care Team Providers Care Silviculturist Name Role Phone Ayan Clayton MD Primary Care Provider Encounter Details Date Type Department Care Team Description 07/24/2020 Equestrian Trainer Report Medical Records [address] [place] [phone] [facility] Social History Tobacco Use Types Packs/Day [...] on filedocumented in this encounter Care Teams Silviculturist Relationship Specialty Start Date End Date Ayan Clayton MD [address] [place], [place] [phone] PCP - General Internal Medicine 09/24/19 documented as of this encounter
--- OUTSIDE RECORDS SUMMARY | 2024-07-25 11:03 | XMS_ITS | Encounter Summary ---
Author Organization [facility] Address [address] [place] [address] Care Team Providers Care Dredge Deckhand Name Role Phone Daniel Mota MD Primary Care Provider Unavail able Ayan Clayton MD Primary Care Provider [phone] Encounter Details Date Type Department Care Team Description 05/13/2019 Tester Equipment Report Medical Records [address] [place] [address] Jake Limon MD Social History Tobacco Use [...] on filedocumented in this encounter Care Teams Dredge Deckhand Relationship Specialty Start Date End Date Daniel Mota MD PCP - General Internal Medicine 10/20/16 09/23/19 Ayan Clayton MD [address] [place], [place] [phone] PCP - General Internal Medicine 09/24/19 documented as of this encounter
--- OUTSIDE RECORDS SUMMARY | 2024-07-25 11:03 | XMS_ITS | Encounter Summary ---
Author Organization [facility] Address [address] [place] [address] Care Team Providers Care Recreational Therapist Name Role Phone Daniel Mota MD Primary Care Provider [facility] Ayan Clayton MD Primary Care Provider [phone] Reason for Visit * Reason Comments E-prescribe Rx Request Encounter Details Date Type Department Care Team Description 04/10/2019 Refill General Surgery - [place] [address] [facility] [address] [place] [phone] Torrey Moreno MD [address] [place] [address] [address] [place] [address] E-prescribe Rx Request Social History Tobacco Use [...] on filedocumented in this encounter Care Teams Recreational Therapist Relationship Specialty Start Date End Date Daniel Mota MD PCP - General Internal Medicine 10/20/16 09/23/19 Ayan Clayton MD [address] [place] [address] PCP - General Internal Medicine 09/24/19 documented as of this encounter
--- OUTSIDE RECORDS SUMMARY | 2024-07-25 11:03 | XMS_ITS | Encounter Summary ---
Author Organization [facility] Address [address] [place] [address] Care Team Providers Care Fuel Verification Technician Name Role Phone Daniel Mota MD Primary Care Provider Unavail able Ayan Clayton MD Primary Care Provider [phone] Encounter Details Date Type Department Care Team Description 03/07/2019 Client Resolution Specialist Report Medical Records [address] Social History Tobacco Use Types Packs/Day [...] on filedocumented in this encounter Care Teams Fuel Verification Technician Relationship Specialty Start Date End Date Daniel Mota MD PCP - General Internal Medicine 10/20/16 09/23/19 Ayan Clayton MD [address] [place] [address] PCP - General Internal Medicine 09/24/19 documented as of this encounter
--- OUTSIDE RECORDS SUMMARY | 2024-07-25 11:03 | XMS_ITS | Encounter Summary ---
Author Organization [facility] Address [address] [place] [address] Care Team Providers Care Quality Control Engineer Name Role Phone Daniel Mota MD Primary Care Provider Unavail Victor Manuel Yu MD Primary Care Provider Unava ilable Daniel Mota MD Primary Care Provider Unavail Ayan Pulliam MD Primary Care Provider [phone] Victor Manuel Gonzales MD Primary Care Provider Unava ilmaximino Encounter Details Date Type Department Care Team Description 04/08/2014 Economics Instructor Report Medical Records [address] [place] [address] [place] [address] [place] [address] Social History Tobacco Use Types Packs/Day Years [...] in this encounter Care Teams Quality Control Engineer Relationship Specialty Start Date End Date Daniel Mota MD PCP - General 07/27/1994 12/22/15 Victor Manuel Gonzales MD PCP - General Internal Medicine 07/22/16 10/19/16 Daniel Mota MD PCP - General Internal Medicine 10/20/16 09/23/19 Ayan Clayton MD [address] [place] [address] PCP - General Internal Medicine 09/24/19 Victor Manuel Gonzales MD PCP - General 12/23/15 07/21/16 documented as of this encounter
--- OUTSIDE RECORDS SUMMARY | 2024-07-25 11:03 | XMS_ITS | Encounter Summary ---
Author Organization [facility] Address [address] [place] [address] Care Team Providers Care Newspaper Photographer Name Role Phone Ayan Clayton MD Primary Care Provider [phone] Reason for Referral * Non CRAIG (Routine) - Authorized/Booked Specialty Diagnoses / Procedures Referred By Contac t Referred To Contact Gastroenterology Procedures REFERRAL TO GASTROENTEROLOGY Ayan Clayotn MD [address] [place] [address] Gastro Spfld/175 175 [facility] [address] [place] [phone] Referral ID Status Reason Start Date Expiration Date V isits Requested Visits Authorized [id number] Authorized/B ooked 08/18/2020 08/18/2021 1 1 Reason for Visit * Reason Onset Date Comments TEST RESULTS 08/18/2020 Encounter Details Date Type Department Care Team Description 08/18/2020 Pt. Non Urgent Medical Question Adult Medicine [facility] [address] [place] [address] Ayan Clayton MD [address] [place] [address] Constipation, unspecified constipation type (Primary Dx); Hypercalcemia; [...] - 80 ng/mL 08/21/2020 12:39 PM EDT [facility] 08/21/2020 9:22 AM EDT 08/21/2020 9:23 AM EDT Narrative [facility] - 08/21/2020 12:39 PM EDT Release to patient->Immediate Ayan Clayton MD LAB [facility] * (ABNORMAL) COMPREHENSIVE METABOLIC PANEL (08/21/2020 9:22 AM EDT) GLUCOSE 251(H) 70 - 100 mg/dL 08/21/2020 12:33 PM EDT [facility] Comment:Reference range appl icable to fasting specimens only Blood Urea Nitrogen 19 5 - 25 mg/dL 08/21/2020 12:33 PM EDT [facility] CREAT 1.41(H) 0.5 - 1.1 mg/dL 08/21/2020 12:33 PM EDT [facility] GLOMERULAR FILTRATION RATE 38 08/21/2020 12:33 PM EDT [facility] Comment: If patient is -Mozambican, multiply result by 1.21 Chronic Kidney Disease: < 60 ml/min/1.73 square meters Kidney Failure: < 15 ml/min/1.73 square meters NA 140 135 - 145 mEq/L 08/21/2020 12:33 PM EDT [facility] K 4.5 3.5 - 5.5 mmol/L 08/21/2020 12:33 PM EDT [facility] CL 108 96 - 110 mmol/L 08/21/2020 12:33 PM EDT [facility] CARBON DIOXIDE (CO2) 28 21 - 32 mmol/L 08/21/2020 12:33 PM EDT [facility] ANION GAP 4 3 - 11 08/21/2020 12:33 PM EDT [facility] CALCIUM 9.7 8.5 - 10.5 mg/dL 08/21/2020 12:33 PM EDT [facility] Albumin 3.6 3.2 - 5.0 G/dL 08/21/2020 12:33 PM EDT [facility] SGPT 23 10 - 60 U/L 08/21/2020 12:33 PM EDT [facility] TOTAL PROTEIN (TP) 7.7 6.0 - 8.0 G/dL 08/21/2020 12:36 PM EDT [facility] BILIRUBIN TOTAL 0.9 0.0 - 1.4 mg/dL 08/21/2020 12:36 PM EDT [facility] SGOT 32 10 - 42 U/L 08/21/2020 12:36 PM EDT [facility] ALK PHOS 444(H) 42 - 121 U/L 08/21/2020 12:36 PM EDT [facility] 08/21/2020 9:22 AM EDT 08/21/2020 9:23 AM EDT Narrative [facility] - 08/21/2020 12:36 PM EDT Release to patient->Immediate Ayan Clayton MD LAB [facility] * (ABNORMAL) PTH INTACT (08/21/2020 9:21 AM EDT) INTACT PTH 16(L) 18 - 88 pg/mL 08/21/2020 12:40 PM EDT [facility] 08/21/2020 9:21 AM EDT 08/21/2020 9:23 AM EDT Narrative [facility] - 08/21/2020 12:40 PM EDT Release to patient->Immediate Ayan Clayton MD LAB Performing Organization Address [facility] Co de Phone Number [facility] documented in this encounter Visit Diagnoses Diagnosis Constipation, unspecified constipation type- Primary Hypercalcemia Decreased GFR Nonspecific abnormal results of kidney function study Elevated alkaline phosphatase level Other nonspecific abnormal serum enzyme levels Elevated alkaline phosphatase level Other nonspecific abnormal serum enzyme levels Hypercalcemia Decreased GFR Nonspecific abnormal results of kidney function study documented in this encounter Care Teams Newspaper Photographer Relationship Specialty Start Date End Date Ayan Clayton MD [address] [place] [address] PCP - General Internal Medicine 09/24/19 documented as of this encounter
--- OUTSIDE RECORDS SUMMARY | 2024-07-25 11:03 | XMS_ITS | Encounter Summary ---
Author Organization [facility] Address [address] [place] [address] Care Team Providers Care Spareribs Trimmer Name Role Phone Daniel Mota MD Primary Care Provider [facility] Ayan Pulliam MD Primary Care Provider [phone] Reason for Visit * Reason Onset Date Comments refill request 05/13/2019 Encounter Details Date Type Department Care Team Description 05/13/2019 Refill Adult [facility] [address] [place] [address] Daniel Mota MD refill request Social History [...] N/A Patients current insurance carrier is: Payor: [employer] / Plan: [facility] / Product Type: HMO [id number] documented in this encounter Plan of Treatment [...] asthma documented in this encounter Care Teams Spareribs Trimmer Relationship Specialty Start Date End Date Daniel Mota MD PCP - General Internal Medicine 10/20/16 09/23/19 Ayan Clayton MD [address] [place] [address] PCP - General Internal Medicine 09/24/19 documented as of this encounter
--- OUTSIDE RECORDS SUMMARY | 2024-07-25 11:03 | XMS_ITS | Encounter Summary ---
Author Organization [facility] Address [address] [place] [address] Care Team Providers Care Network Planner Name Role Phone Daniel Mota MD Primary Care Provider Ayan Rubalcava MD Primary Care Provider [phone] Reason for Visit * Reason Comments E-prescribe Rx Request Encounter Details Date Type Department Care Team Description 09/11/2019 Refill Pulmonology - [place] 175 [facility] [address] [place] [phone] Cralos Hurley MD 175 [facility] [address] [place] [phone] E-prescribe Rx Request Social History Tobacco Use [...] asthma documented in this encounter Care Teams Network Planner Relationship Specialty Start Date End Date Daniel Mota MD PCP - General Internal Medicine 10/20/16 09/23/19 Aayn Clayton MD [address] [place] [address] PCP - General Internal Medicine 09/24/19 documented as of this encounter
--- OUTSIDE RECORDS SUMMARY | 2024-07-25 11:03 | XMS_ITS | Encounter Summary ---
Author Organization [facility] Address [address] [place] [address] Care Team Providers Care Packing Machine Pilot Can Router Name Role Phone Ayan Clayton MD Primary Care Provider [phone] Reason for Visit * Reason Onset Date Comments Provider Call Back 03/18/2020 Encounter Details Date Type Department Care Team Description 03/18/2020 Telephone Adult Medicine [facility] [address] [place] [address] Ayan Clayton MD [address] [place] [address] Provider Call Back Social History Tobacco Use [...] callers name? Angie Callers relationship to patient? MUD ANALYSIS WELL LOGGING CAPTAIN If person calling is not the patient [...] on filedocumented in this encounter Care Teams Packing Machine Pilot Can Router Relationship Specialty Start Date End Date Ayan Clayton MD [address] [place] [address] PCP - General Internal Medicine 09/24/19 documented as of this encounter
--- OUTSIDE RECORDS SUMMARY | 2024-07-25 11:03 | XMS_ITS | Encounter Summary ---
Author Organization [facility] Address [address] [place] [address] Care Team Providers Care Automatic Engraver Name Role Phone Ayan Clayton MD Primary Care Provider [phone] Encounter Details Date Type Department Care Team Description 01/23/2020 Laminator Report Medical Records [address] [place] [address] [facility] Medical Social History Tobacco Use Types [...] filedocumented in this encounter Care Teams Automatic Engraver Relationship Specialty Start Date End Date Ayan Clayton MD [address] [place], [place] [phone] PCP - General Internal Medicine 09/24/19 documented as of this encounter
--- OUTSIDE RECORDS SUMMARY | 2024-07-25 11:03 | XMS_ITS ---
Author Organization [facility] Address [address] [place] [phone] Care Team Providers Care Needle Loom Weaver Name Role Phone LENNIE ALFARO Primary Care Provider Aide Salmeron [phone] REASON FOR VISIT oxyCODONE Refill Medications Medication SIG (Take, Route, Frequency, Duration) Notes Start Date End Date Status oxyCODONE HCl 10 MG 1 tablet Orally 3 times a day for 14 days Partial Fill upon Patient Request Partial Fill Upon Patient Request 07/05/2024 Active Encounters Encounter Location Date Provider Diagnosis [facility] [address] [phone] 07/05/2024 Aide Salmeron Plan Of Treatment Medication Medication Name Sig Start Date Stop Date Notes oxyCODONE HCl 10 MG 1 tablet Orally 3 times a day for 14 days 07/05/2024 Partial Fill upon Patient Request Partial Fill Upon Patient Request Next Appt Details Provider Name:Xuan Jean Baptiste, 0 07/31/2024 10:15:00 AM, [address] [place] [address], [phone], Provider Name:LENNIE ALFARO , 12/20/2024 10:00:00 AM, [address] [place] [address], [phone], Progress Notes * Yanet KINGDOB:1955 (68 yo F)Acc No.[id number]:07/05/2024 Patient:?Yanet KING :1955???Age:68 Y???Sex:Female Address:[facility] [address], [place] [address] * Refills? Refill oxyCODONE HCl Tablet, 10 MG, Orally, 42 Tablet, 1 tablet, 3 times a day, 14 days, Refills=0 * true * Date:? Generated for Mark weir/Grabiel/Leonelsmitting on:?07/25/2024 11:03 AM EDT
--- OUTSIDE RECORDS SUMMARY | 2024-07-25 11:03 | XMS_ITS | Encounter Summary ---
Author Organization [facility] Address [address] [place] [address] Care Team Providers Care Aircraft Skin Burnisher Name Role Phone Ayan Clayton MD Primary Care Provider [phone] Reason for Visit * Reason Comments E-prescribe Rx Request Encounter Details Date Type Department Care Team Description 02/24/2020 Refill Adult Medicine [facility] [address] [place], [place] [phone] Ayan Clayton MD [address] [place] [phone] E-prescribe Rx Request Social History Tobacco Use [...] ?? Patients current insurance carrier is: Payor: [employer] / Plan: [facility] / Product Type: HMO [id number] ?? 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
--- OUTSIDE RECORDS SUMMARY | 2024-07-25 11:03 | XMS_ITS | Encounter Summary ---
Author Organization [facility] Address [address] [place] [address] Care Team Providers Care Plan Consultant Name Role Phone Ayan Clayton MD Primary Care Provider [phone] Encounter Details Date Type Department Care Team Description 10/08/2020 Teletypist Report Medical Records [address] [place] [address] Skylar Hanna DPM Social History Tobacco Use [...] on filedocumented in this encounter Care Teams Plan Consultant Relationship Specialty Start Date End Date Ayan Clayton MD [address] [place], [place] [phone] PCP - General Internal Medicine 09/24/19 documented as of this encounter
--- OUTSIDE RECORDS SUMMARY | 2024-07-25 11:03 | XMS_ITS | Encounter Summary ---
Author Organization [facility] Address [address] [place] [address] Care Team Providers Care Railroad Car Inspector Name Role Phone Daniel Mota MD Primary Care Provider [facility] Ayan Pulliam MD Primary Care Provider [phone] Reason for Visit * Reason Onset Date Comments Prior Authorization 05/21/2019 Encounter Details Date Type Department Care Team Description 05/21/2019 Telephone Adult Medicine [address] [address] Daniel Mota MD Prior Authorization Social History [...] 10:33 AM EDT Spoke with Ashely romero [facility] who stated that p.a. For the jeronimo is through [facility]. Shestated that they faxed it over to them. Called and spoke with Eladio who stated that the jeronimo and its supplies were approved . Approved from 05/31/2019 until 05/30/2020 Authorization number # [id number] * Telephone Encounter - Susan Gutierrez M.A. [...] What Pharmacy did the fax come from: [facility] Pharmacy fax #: [phone] [employer] Party Information from fax: What Prescription Plan does the patient have? BIN/PCN if applicable: Cardholder ID: Person Code: Relationship Code: Help desk phone: [phone] documented in this encounter Plan of Treatment Not on file documented as of this encounter Visit Diagnoses Not on filedocumented in this encounter Care Teams Railroad Car Inspector Relationship Specialty Start Date End Date Daniel Mota MD PCP - General Internal Medicine 10/20/16 09/23/19 Ayan Clayton MD [address] [place] [address] PCP - General Internal Medicine 09/24/19 documented as of this encounter
--- OUTSIDE RECORDS SUMMARY | 2024-07-25 11:03 | XMS_ITS | Encounter Summary ---
Author Organization [facility] Address [address] [place] [address] Care Team Providers Care Petroleum Refining Equipment Operator Name Role Phone Daniel Mota MD Primary Care Provider Unavail Victor Manuel Yu MD Primary Care Provider Unava ilable Daniel Mota MD Primary Care Provider Unavail Ayan Pulliam MD Primary Care Provider [phone] Victor Manuel Gonzales MD Primary Care Provider Unava ilmaximino Encounter Details Date Type Department Care Team Description 05/27/2008 [facility] Medical Records [address] [place] [address] Laurent Harrington MD Social History Tobacco Use [...] on filedocumented in this encounter Care Teams Petroleum Refining Equipment Operator Relationship Specialty Start Date End Date Daniel Mota MD PCP - General 07/27/1994 12/22/15 Victor Manuel Gonzales MD PCP - General Internal Medicine 07/22/16 10/19/16 Daniel Mota MD PCP - General Internal Medicine 10/20/16 09/23/19 Ayan Clayton MD [address] [place] [address] PCP - General Internal Medicine 09/24/19 Victor Manuel Gonzales MD PCP - General 12/23/15 07/21/16 documented as of this encounter
--- OUTSIDE RECORDS SUMMARY | 2024-07-25 11:03 | XMS_ITS | Encounter Summary ---
Author Organization [facility] Address [address] [place] [address] Care Team Providers Care Speech Language Pathology Assistant Name Role Phone Ayan Clayton MD Primary Care Provider [phone] Reason for Visit * Reason Comments E-prescribe Rx Request Encounter Details Date Type Department Care Team Description 04/22/2020 Refill General Surgery - [place] 175 [facility] [address] [place] [address] Torrey Moreno MD [address] [place] [address] [address] [place], [place] [phone] E-prescribe Rx Request Social History Tobacco Use [...] gastrectomy documented in this encounter Care Teams Speech Language Pathology Assistant Relationship Specialty Start Date End Date Ayan Clayton MD [address] [place] [address] PCP - General Internal Medicine 09/24/19 documented as of this encounter
--- OUTSIDE RECORDS SUMMARY | 2024-07-25 11:03 | XMS_ITS | Encounter Summary ---
Author Organization [facility] Address [address] [place] [address] Care Team Providers Care Workers' Compensation Magistrate Name Role Phone Ayan Clayton MD Primary Care Provider [phone] Reason for Visit * Reason Onset Date Comments medication problems 10/29/2020 Encounter Details Date Type Department Care Team Description 10/29/2020 Telephone Adult Medicine [facility] [address] [place] [address] [phone] Ayan Clayton MD [address] [place] [address] [phone] medication problems Social History Tobacco Use Types [...] on filedocumented in this encounter Care Teams Workers' Compensation Magistrate Relationship Specialty Start Date End Date Ayan Clayton MD [address] [place] [address] PCP - General Internal Medicine 09/24/19 documented as of this encounter
--- OUTSIDE RECORDS SUMMARY | 2024-07-25 11:03 | XMS_ITS | Encounter Summary ---
Author Organization [facility] Address [address] [place] [address] Care Team Providers Care Food Technology Teacher Name Role Phone Daniel Mota MD Primary Care Provider Unavail Victor Manuel Yu MD Primary Care Provider Unava ilable Daniel Mota MD Primary Care Provider Unavail Ayan Pulliam MD Primary Care Provider [phone] Victor Manuel Gonzales MD Primary Care Provider Unava ilmaximino Encounter Details Date Type Department Care Team Description 08/01/2009 [facility] Medical Records [address] [place] [address] Orlando Stovall MD Social History Tobacco Use [...] on filedocumented in this encounter Care Teams Food Technology Teacher Relationship Specialty Start Date End Date Daniel Mota MD PCP - General 07/27/1994 12/22/15 Victor Manuel Gonzales MD PCP - General Internal Medicine 07/22/16 10/19/16 Daniel Mota MD PCP - General Internal Medicine 10/20/16 09/23/19 Ayan Clayton MD [address] [place] [address] PCP - General Internal Medicine 09/24/19 Victor Manuel Gonzales MD PCP - General 12/23/15 07/21/16 documented as of this encounter
--- OUTSIDE RECORDS SUMMARY | 2024-07-25 11:04 | XMS_ITS | Encounter Summary ---
Author Organization [facility] Address [address] [place] [address] Care Team Providers Care Rail Setter Name Role Phone Daniel Mota MD Primary Care Provider Unavail able Ayan Clayton MD Primary Care Provider [phone] Encounter Details Date Type Department Care Team Description 04/16/2018 Mobile Mechanic Report Medical Records [address] [place] [address] Jake Limon MD Social History Tobacco Use [...] on filedocumented in this encounter Care Teams Rail Setter Relationship Specialty Start Date End Date Daniel Mota MD PCP - General Internal Medicine 10/20/16 09/23/19 Ayan Clayton MD [address] [place], [place] [phone] PCP - General Internal Medicine 09/24/19 documented as of this encounter
--- OUTSIDE RECORDS SUMMARY | 2024-07-25 11:04 | XMS_ITS | Encounter Summary ---
Author Organization [facility] Address [address] [place] [address] Care Team Providers Care Solid Tire Tuber Machine Operator Name Role Phone Ayan Clayton MD Primary Care Provider [phone] Encounter Details Date Type Department Care Team Description 02/15/2021 Orders Only Medical Records [address] [place] [address] Ruth Mitchell MD [address] [place] [address] Social History Tobacco Use Types Packs/Day Years [...] on filedocumented in this encounter Care Teams Solid Tire Tuber Machine Operator Relationship Specialty Start Date End Date Ayan Clayton MD [address] [place] [address] PCP - General Internal Medicine 09/24/19 documented as of this encounter
--- OUTSIDE RECORDS SUMMARY | 2024-07-25 11:04 | XMS_ITS | Encounter Summary ---
Author Organization [facility] Address [address] [place] [address] Care Team Providers Care Email Designer Name Role Phone Ayan Clayton MD Primary Care Provider [phone] Reason for Visit * Reason Onset Date Comments preop exam 07/27/2022 Encounter Details Date Type Department Care Team Description 07/27/2022 Telephone Adult Medicine [address] [phone] Ayan Clayton MD [address] [place] [address] [phone] preop exam Social History Tobacco Use Types [...] Fernie Toth Office phone number of surgeon: [phone] Fax # for surgeons office: [phone] (Required) Where is surgery being performed? [facility] Diagnosis/problem for surgery: Left total hip arthoplastry Is an EKG required for the pre-op workup? YES (labs) PCP: Ayan Clayton Did you verify that the insurance below is correct? YES Patients insurance: Payor: [employer] / Plan: PPO $0 [place] [employer] [id number] / Product Type: PPO [id number] documented in this encounter Plan of Treatment Not on file documented as of this encounter Visit Diagnoses Not on filedocumented in this encounter Care Teams Email Designer Relationship Specialty Start Date End Date Ayan Clayton MD [address] [place] [address] PCP - General Internal Medicine 09/24/19 documented as of this encounter
--- OUTSIDE RECORDS SUMMARY | 2024-07-25 11:04 | XMS_ITS | Encounter Summary ---
Author Organization [facility] Address [address] [place] [address] Care Team Providers Care Laundry Agent Name Role Phone Daniel Mota MD Primary Care Provider Ayan Rubalcava MD Primary Care Provider [phone] Encounter Details Date Type Department Care Team Description 04/24/2017 Pt. Non Urgent Medic al Question Adult Medicine [address] [address] Daniel Mota MD Social History Tobacco Use [...] filedocumented in this encounter Care Teams Laundry Agent Relationship Specialty Start Date End Date Daniel Mota MD PCP - General Internal Medicine 10/20/16 09/23/19 Ayan Clayton MD [address] [place] [address] PCP - General Internal Medicine 09/24/19 documented as of this encounter
--- OUTSIDE RECORDS SUMMARY | 2024-07-25 11:04 | XMS_ITS | Encounter Summary ---
Author Organization [facility] Address [address] [place] [address] Care Team Providers Care Hand Tapper Name Role Phone Ayan Clayton MD Primary Care Provider [phone] Encounter Details Date Type Department Care Team Description 04/21/2021 Internal Controls Analyst Report Medical Records [address] [place] [address] Skylar Hanna DPM Social History Tobacco Use [...] filedocumented in this encounter Care Teams Hand Tapper Relationship Specialty Start Date End Date Ayan Clayton MD [address] [place], [place] [phone] PCP - General Internal Medicine 09/24/19 documented as of this encounter
--- OUTSIDE RECORDS SUMMARY | 2024-07-25 11:04 | XMS_ITS | Encounter Summary ---
Author Organization [facility] Address [address] [place] [address] Care Team Providers Care Drawing Checker Name Role Phone Ayan Clayton MD Primary Care Provider [phone] Encounter Details Date Type Department Care Team Description 03/10/2021 Parking Technician Report Medical Records [address] [place] [address] Rell Leavitt Social History Tobacco Use Types [...] on filedocumented in this encounter Care Teams Drawing Checker Relationship Specialty Start Date End Date Ayan Clayton MD [address] [place], [place] [phone] PCP - General Internal Medicine 09/24/19 documented as of this encounter
--- OUTSIDE RECORDS SUMMARY | 2024-07-25 11:04 | XMS_ITS | Encounter Summary ---
Author Organization [facility] Address [address] [place] [address] Care Team Providers Care Construction Foreman Name Role Phone Ayan Clayton MD Primary Care Provider [phone] Encounter Details Date Type Department Care Team Description 07/09/2020 Christian Education Director Report Medical Records [address] [place] [address] Skylar Hanna DPM Social History Tobacco Use [...] on filedocumented in this encounter Care Teams Construction Foreman Relationship Specialty Start Date End Date Ayan Clayton MD [address] [place], [place] [phone] PCP - General Internal Medicine 09/24/19 documented as of this encounter
--- OUTSIDE RECORDS SUMMARY | 2024-07-25 11:04 | XMS_ITS | Encounter Summary ---
Author Organization [facility] Address [address] [place] [address] Care Team Providers Care Hydrogen Cell Tender Name Role Phone Daniel Mota MD Primary Care Provider Ayan Rubalcava MD Primary Care Provider [phone] Encounter Details Date Type Department Care Team Description 05/24/2017 Orders Only Medical Records [address] [place] [address] Daniel Mota MD Social History Tobacco Use [...] on filedocumented in this encounter Care Teams Hydrogen Cell Tender Relationship Specialty Start Date End Date Daniel Mota MD PCP - General Internal Medicine 10/20/16 09/23/19 Ayan Clayton MD [address] [place] [address] PCP - General Internal Medicine 09/24/19 documented as of this encounter
--- OUTSIDE RECORDS SUMMARY | 2024-07-25 11:04 | XMS_ITS | Clinical Summary ---
Author Organization 175 [facility] Address [address] [place] [address] Phone Care Team Providers Care Mail List Librarian Name Role Phone Ayan Clayton MD Primary Care Provider [phone] Allergies Active Allergy Reactions Criticality Noted Date [...] rhinitis due to pollen 10/01/2018 Centrilobular emphysema ([facility] V24, [facility] V2 8) 10/01/2018 Overview (12/29/2023): CT Lung [...] 2 diabetes mellitus wit h neurological manifestations ([facility] V24, [facility] V28) 07/11/2012 Type 2 diabetes mellitus wit h renal manifestations ([facility] V24, [facility] V28) 07/11/2012 Overview (12/29/2023): Microalbumin 58 on 08/2011 Hypertension 05/14/2010 Fibromyalgia 03/28/2005 Hyperlipidemia 03/28/2005 Resolved Problems Problem Noted Date Diagnosed Date Resolved Date Overweight (BMI 25.0-29.9) 11/07/2022 0 04/02/2024 Encounters Date Type Department Care Team Description 07/05/2024 Telephone Adult Medicine [address] [address] Laclair, Angela, SALON STYLIST Fitting for DME (Faxed form from [place]) 06/12/2024 8:50 AM EDT Office Visit Pulmonolgy - [place] [address] [facility] [address] [place] [address] Jil Freeman, KALE Centrilobular emphysema ([facility] V24, [facility] V28) (Primary Dx); Nocturnal hypoxemia; Snoring; Severe persistent asthma without complication ([facility] V28); Seasonal allergic rhinitis due to pollen 06/05/2024 Telephone Nephrology - [place] [address] [place] [phone] Vega Navarro MD Hypotension 05/08/2024 Lab Requisition [facility] [address] [place] [address] Niels Retana MD Diarrhea, unspecified 05/06/2024 Lab Requisition [facility] [address] [place] [address] Niels Retana MD Other termite control service representative (current) drug therapy from Last 3 Months [...] pollen 10/01/2018 Centrilobular emphysema (CMS /HCC V24, [facility] V28) 10/01/2018 Snoring 05/24/2017 05/18/2017 Home S [...] AM EDT Appointment Radiology Department - [address] [phone] 12/05/2024 3:45 PM EDT Office Visit Nephrology - [address] [phone] Vega Navarro MD [address] [facility] [address] [place] [address] 02/04/2025 9:00 AM EST Office Visit Bariatric Surgery - [place] [address] [place] [phone] Torrey Moreno MD 175 [facility] [address] [place] [address] 06/12/2025 9:10 AM EDT Office Visit Pulmonolgy - [place] [address] [place] [phone] Jil Freeman NP 175 [facility] 200 [place] [address] Health Maintenance Due Date Last Done Comments [...] 05/06/2024 6:41 AM EST Other termite control service representative (current) drug therapy COMPLETE BLOOD COUNT Routine 05/06/2024 6:41 AM EST Other termite control service representative (current) drug therapy SCREENING MAMMOGRAPHY BI 2-VIEW [...] Detected LAB MICROBIOLOGY METHOD 5 12:46 PM [facility] Plesiomonas shigelloides Detection by PCR Not Detected Not Detected LAB MICROBIOLOGY METHOD 5 12:46 PM [facility] Salmonella Detection by PCR Not Detected Not Detected LAB MICROBIOLOGY METHOD 5 12:46 PM [facility] Vibrio Detection by PCR Not Detected Not Detected LAB MICROBIOLOGY METHOD 5 12:46 PM [facility] Vibrio cholerae Detection by PCR Not Detected Not Detected LAB MICROBIOLOGY METHOD 5 12:46 PM [facility] Yersinia enterocolitica Detection by PCR Not Detected Not Detected LAB MICROBIOLOGY METHOD 5 12:46 PM [facility] Enteroaggregative E coli EAEC Detection by PCR Not Detected Not Detected LAB MICROBIOLOGY METHOD 5 12:46 PM [facility] Enteropathogenic E coli EPEC Detection Not Detected Not Detected LAB MICROBIOLOGY METHOD 5 12:46 PM [facility] Enterotoxigenic E coli ETEC LTST Detection Not Detected Not Detected LAB MICROBIOLOGY METHOD 5 12:46 PM [facility] Shiga-like toxin producing E coli STEC STX1 STX2 Det Not Detected Not Detected LAB MICROBIOLOGY METHOD 5 12:46 PM [facility] Shigella Enteroinvasive E coli EIEC Detection Not Detected Not Detected LAB MICROBIOLOGY METHOD 5 12:46 PM [facility] Cryptosporidium Detection by PCR Not Detected Not Detected LAB MICROBIOLOGY METHOD 5 12:46 PM [facility] Cyclospora cayetanensis Detection by PCR Not Detected Not Detected LAB MICROBIOLOGY METHOD 5 12:46 PM [facility] Entamoeba histolytica Detection by PCR Not Detected Not Detected LAB MICROBIOLOGY METHOD 5 12:46 PM [facility] Giardia lamblia Detection by PCR Not Detected Not Detected LAB MICROBIOLOGY METHOD 5 12:46 PM [facility] Adenovirus F 40 41 Detection by PCR Not Detected Not Detected LAB MICROBIOLOGY METHOD 5 12:46 PM [facility] Astrovirus Detection by PCR Not Detected Not Detected LAB MICROBIOLOGY METHOD 5 12:46 PM EST [facility] Norovirus GI GII Detection by PCR Detected(A ) Not Detected LAB MICROBIOLOGY METHOD 5 12:46 PM [facility] Sapovirus Detection by PCR Not Detected Not Detected LAB MICROBIOLOGY METHOD 5 12:46 PM [facility] Rotavirus A Detection by PCR Not Detected Not Detected LAB MICROBIOLOGY METHOD 5 12:46 PM [facility] Stool Rectum structure / Unknown 05/08/2024 6:00 AM EST 05/08/2024 10:34 AM EST [facility] - 05/08/2024 12:46 PM EST [...] MICROBIOLOGY - GENERAL ORDER CHELA Final Result [facility] [address] [place] [address], * Clostridium difficile toxin (05/08/2024 6:00 AM EST) Clostridium difficile GDH Antigen Negative Negative 05/08/2024 12:02 PM [facility] C difficile Toxins A+B, EIA Negative Negative 05/08/2024 12:02 PM [facility] Comment:NEGATIVE FOR TOXIN P RODUCING CLOSTRIDIOIDES DIFFICILE, NO ADDITIONAL TESTING IS NECESSARY. Stool Rectum structure / Unknown 05/08/2024 6:00 AM EST 05/08/2024 11:43 AM EST us Niels Retana MD LAB MICROBIOLOGY - GENERAL ORDER CHELA Final Result [facility] [address] [place] [address], [place] [phone] * (ABNORMAL) Complete blood count (05/06/2024 6:41 AM EST) WBC 12.0(H) 4.8 - 10.8 K/mcL LAB HEMETOLOGY METHOD 05/06/2024 1:39 PM [facility] RBC 3.60(L) 3.80 - 4.80 M/mcL LAB HEMETOLOGY METHOD 05/06/2024 1:39 PM [facility] Hemoglobin 10.1(L) 11.5 - 16.0 g/dL LAB HEMETOLOGY METHOD 05/06/2024 1:39 PM [facility] Hematocrit 32.4(L) 35.0 - 47.0 % LAB HEMETOLOGY METHOD 05/06/2024 1:39 PM [facility] MCV 90.5 79.0 - 98.0 FL LAB HEMETOLOGY METHOD 05/06/2024 1:39 PM [facility] MCH 28.2 27.0 - 32.0 pcg LAB HEMETOLOGY METHOD 05/06/2024 1:39 PM [facility] MCHC 31.2(L) 32.0 - 37.0 g/dL LAB HEMETOLOGY METHOD 05/06/2024 1:39 PM [facility] RDW 15.0 11.0 - 15.0 % LAB HEMETOLOGY METHOD 05/06/2024 1:39 PM [facility] Platelets 349 130 - 400 K/mcL LAB HEMETOLOGY METHOD 05/06/2024 1:39 PM [facility] MPV 10.1 7.0 - 11.0 FL LAB HEMETOLOGY METHOD 05/06/2024 1:39 PM EST [facility] NRBC 0.0 <1.0 % LAB HEMETOLOGY METHOD 05/06/2024 1:39 PM [facility] NRBC Absolute 0.00 <0.10 K/mcL LAB HEMETOLOGY METHOD 05/06/2024 1:39 PM EST [facility] Blood Venous blood specimen / Unknown Venipuncture / Unknown 05/06/2024 6:41 AM EST 05/06/2024 12:07 PM EST us Niels Retana MD LAB BLOOD ORDERABLES Final Resul t [facility] [address] [place] [address], * (ABNORMAL) Comprehensive metabolic panel (05/06/2024 6:41 AM EST) Sodium 141 133 - 145 mmol/L LAB CHEMISTRY METHOD 05/06/2024 2:03 PM [facility] Potassium 3.6 3.5 - 5.5 mmol/L LAB CHEMISTRY METHOD 05/06/2024 2:03 PM [facility] Chloride 107 96 - 110 mmol/L LAB CHEMISTRY METHOD 05/06/2024 2:03 PM [facility] CO2 26 21 - 32 mmol/L LAB CHEMISTRY METHOD 05/06/2024 2:03 PM [facility] Anion Gap 8 3 - 11 LAB CHEMISTRY METHOD 05/06/2024 2:03 PM [facility] Glucose 108(H) 70 - 100 mg/dL LAB CHEMISTRY METHOD 05/06/2024 2:03 PM [facility] BUN 14 5 - 25 mg/dL LAB CHEMISTRY METHOD 05/06/2024 2:03 PM [facility] Creatinine 0.85 0.50 - 1.10 mg/dL LAB CHEMISTRY METHOD 05/06/2024 2:03 PM [facility] eGFR 75 >=60 mL/min/1. 73m2 LAB CHEMISTRY METHOD 05/06/2024 2:03 PM [facility] Comment:Calculation based on the??Chronic Kidney Disease Epidemiology Collaboration (CKD-EPI) equation refit??without adjustment for race. BUN/Creatinine Ratio 16.5 LAB CHEMISTRY METHOD 05/06/2024 2:03 PM [facility] Calcium 8.7 8.5 - 10.5 mg/dL LAB CHEMISTRY METHOD 05/06/2024 2:03 PM [facility] AST (SGOT) 35 10 - 42 unit/L LAB CHEMISTRY METHOD 05/06/2024 2:03 PM [facility] ALT (SGPT) 37 10 - 60 unit/L LAB CHEMISTRY METHOD 05/06/2024 2:03 PM [facility] Alkaline Phosphatase 403(H) 42 - 121 unit/L LAB CHEMISTRY METHOD 05/06/2024 2:03 PM [facility] Total Protein 5.8(L) 6.0 - 8.0 g/dL LAB CHEMISTRY METHOD 05/06/2024 2:03 PM [facility] Albumin 2.4(L) 3.2 - 5.0 g/dL LAB CHEMISTRY METHOD 05/06/2024 2:03 PM [facility] Total Bilirubin 0.5 0.0 - 1.4 mg/dL LAB CHEMISTRY METHOD 05/06/2024 2:03 PM [facility] Blood Venous blood specimen / Unknown Venipuncture / Unknown 05/06/2024 6:41 AM EST 05/06/2024 12:07 PM EST us Niels Retana MD LAB BLOOD ORDERABLES Final Resul t [facility] [address] [place] [address], * SCREENING MAMMOGRAPHY BI 2-VIEW BREAST INC [...] 12 months. BI-RADS: Category 2: Benign Result [facility] Ayan Clayton MD IMG XR PROCEDURES Final Result * Urine Albumin Creatinine Ratio (06/29/2023) Pathologist [facility] Urine Albumin Creatinine Ratio ABSTRACTED Result [facility] HEALTH MAINTENANCE Final Result * Hemoglobin A1c (06/29/2023) [facility] Hemoglobin A1C 5.2 <=6.5 % Blood Venous blood specimen / Unknown Result [facility] LAB BLOOD ORDERABLES Fely l Result * Lipid panel (06/29/2023) [facility] LDL/HDL Ratio 2 0 - 4 Triglycerides 142 0 - 150 mg/dL Cholesterol 172 0 - 200 mg/dL HDL 79 >=40 mg/dL LDL Cholesterol 65 0 - 100 mg/dL Blood Venous blood specimen / Unknown Result [facility] LAB BLOOD ORDERABLES Fely l Result * Diabetes Foot Exam (04/10/2023) Pathologist [facility] Diabetes: Annual Foot Exam ABSTRACTED Result [facility] HEALTH MAINTENANCE Final Result * DXA BONE [...] bone mineral density by WHO criteria. [facility] Department of Internal Medicine recommends using [...] screening schedule based on albert Kincaid., [facility] April 14, 2011 for patients [...] bone mineral density by WHO criteria. [facility] Department of Internal Medicine recommendsusing National [...] Cancer Screening: HPV (04/28/2021) Pathologist [facility] Cervical Cancer Screening: HPV negative,a bstracted Historical Provider HEALTH MAINTENANCE Final Result * Colonoscopy (02/16/2021) Pathologist [facility] Colonoscopy no interpretation , abstracted Anatomical Region Laterality Modality Other Historical Provider HEALTH MAINTENANCE Final Result * Hepatitis C Screening (12/07/2020) Pathologist [facility] Hepatitis C Screening ABSTRACTED Historical Provider HEALTH MAINTENANCE Final Result from Last 3 Months or Most Recently Relevant to Health Maintenance Additional Health Concerns Infection Onset Date Last Indicated Norovirus 05/08/2024 05/08/2024 Insurance [facility] MEDICARE Member Subscriber Plan / Payer (Ef fective 2023-Present) Name:Yaent King Relation to Subscriber:Self Name:Yanet King Payer ID:[id number] Group ID:[id number] Type:Not on file Address: [place] [address] [address] [id number] Advance Directives Documents on File Type Date Recorded Patient Place Change Roof Bolter Expl anation Health Care Decision (hx) 05/19/2014 [...] (hx) 05/15/2014 AD QUIÑONEZ DIRECTIVE Care Teams Mail List Librarian Relationship Specialty Start Date End Date Ayan Clayton MD [address] [place] [id number] PCP - General Internal Medicine 07/11/24
--- OUTSIDE RECORDS SUMMARY | 2024-07-25 11:04 | XMS_ITS | Encounter Summary ---
Author Organization [facility] Address [address] [place] [address] Care Team Providers Care Biology Specimen Technician Name Role Phone Ayan Clayton MD Primary Care Provider [phone] Reason for Visit * Reason Onset Date Comments Medication 02/02/2021 Encounter Details Date Type Department Care Team Description 02/02/2021 Refill Gastroenterology - [place] [address] [facility] [address] [place] [address] Ruth Mitchell MD [address] [place] [address] Medication Social History Tobacco Use Types Packs/Day [...] on filedocumented in this encounter Care Teams Biology Specimen Technician Relationship Specialty Start Date End Date Ayan Clayton MD [address] [place] [phone] PCP - General Internal Medicine 09/24/19 documented as of this encounter
--- OUTSIDE RECORDS SUMMARY | 2024-07-25 11:04 | XMS_ITS | Encounter Summary ---
Author Organization [facility] Address [address] [place] [address] Care Team Providers Care Mill And Coal Transport Operator Name Role Phone Daniel Mota MD Primary Care Provider Unavail [facility] Ayan Clayton MD Primary Care Provider [phone] Encounter Details Date Type Department Care Team Description 03/03/2017 Station Jailer Report Medical Records [address] [place] [address] Lida Renae PA-C [address] [place] [address] Social History Tobacco Use Types Packs/Day [...] on filedocumented in this encounter Care Teams Mill And Coal Transport Operator Relationship Specialty Start Date End Date Daniel Mota MD PCP - General Internal Medicine 10/20/16 09/23/19 Ayan Clayton MD [address] [place] [address] PCP - General Internal Medicine 09/24/19 documented as of this encounter
--- OUTSIDE RECORDS SUMMARY | 2024-07-25 11:04 | XMS_ITS | Encounter Summary ---
Author Organization [facility] Address [address] [place] [address] Care Team Providers Care Fiberglass Luggage Molder Name Role Phone Daniel Mota MD Primary Care Provider Unavail able Ayan Clayton MD Primary Care Provider [phone] Encounter Details Date Type Department Care Team Description 10/24/2016 [facility] Medical Records [address] [place] [address] Abstract, Provider Social History Tobacco Use Types [...] filedocumented in this encounter Care Teams Fiberglass Luggage Molder Relationship Specialty Start Date End Date Daniel Mota MD PCP - General Internal Medicine 10/20/16 09/23/19 Ayan Clayton MD [address] [place] [address] [phone] PCP - General Internal Medicine 09/24/19 documented as of this encounter
--- OUTSIDE RECORDS SUMMARY | 2024-07-25 11:04 | XMS_ITS | Encounter Summary ---
Author Organization [facility] Address [address] [place] [address] Care Team Providers Care Director It Name Role Phone Daniel Mota MD Primary Care Provider Unavail Victor Manuel Yu MD Primary Care Provider Unava ilable Daniel Mota MD Primary Care Provider Unavail Ayan Pulliam MD Primary Care Provider [phone] Victor Manuel Gonzales MD Primary Care Provider Unava ilmaximino Encounter Details Date Type Department Care Team Description 08/24/2010 Concept Artist Report Medical Records [address] [place] [address] [place] [address] [place] [address] Social History Tobacco Use Types Packs/Day Years [...] filedocumented in this encounter Care Teams Director It Relationship Specialty Start Date End Date Daniel Mota MD PCP - General 07/27/1994 12/22/15 Victor Manuel Gonzales MD PCP - General Internal Medicine 07/22/16 10/19/16 Daniel Mota MD PCP - General Internal Medicine 10/20/16 09/23/19 Ayan Clayton MD [address] [place] [address] PCP - General Internal Medicine 09/24/19 Victor Manuel Gonzales MD PCP - General 12/23/15 07/21/16 documented as of this encounter
--- OUTSIDE RECORDS SUMMARY | 2024-07-25 11:04 | XMS_ITS | Encounter Summary ---
Author Organization [facility] Address [address] [place] [address] Care Team Providers Care Motor Inspection Mechanic Name Role Phone Ayan Clayton MD Primary Care Provider [phone] Reason for Visit * Reason Comments E-prescribe Rx Request Encounter Details Date Type Department Care Team Description 05/27/2022 Refill Adult Medicine [facility] [address] [place], [place] [phone] Ayan Clayton MD [address] [place] [address] [phone] E-prescribe Rx Request Social History Tobacco Use [...] uncontrolled documented in this encounter Care Teams Motor Inspection Mechanic Relationship Specialty Start Date End Date Ayan Clayton MD [address] [place] [id number] PCP - General Internal Medicine 09/24/19 documented as of this encounter
--- OUTSIDE RECORDS SUMMARY | 2024-07-25 11:04 | XMS_ITS | Encounter Summary ---
Author Organization [facility] Address [address] [place] [address] Care Team Providers Care Transcription Typist Name Role Phone Ayan Clayton MD Primary Care Provider [phone] Encounter Details Date Type Department Care Team (Late Contact Info) Description 05/08/2024 Lab Requisition [facility] - Main Lab [address] [facility] [place] [address] Niels Retana MD [address] [place] [address] [address] [place], [phone] Diarrhea, unspecified Social History Tobacco Use [...] 10:00 AM EDT Appointment Radiology Department - [address] [address] 12/05/2024 3:45 PM EDT Office Visit Nephrology - [address] [place] [address] Vega Navarro MD [address] [facility] [address] [place] [phone] 02/04/2025 9:00 AM EST Office Visit Bariatric Surgery - [place] 175 [facility] [address] [place] [phone] Torrey Moreno MD 175 [facility] 120 [place] [address] 06/12/2025 9:10 AM EDT Office Visit Pulmonolgy - [place] 175 [facility] [address] [place] [phone] Jil Freeman NP 175 [facility] 200 [place] [address] documented as of this encounter Procedures Procedure [...] MICROBIOLOGY - GENERAL ORDER CHELA Final Result [facility] [address] [place] [address], * (ABNORMAL) Gastrointestinal pathogens molecular study (05/08/2024 6:00 AM EST) Campylobacter Detection by PCR Not Detected Not Detected LAB MICROBIOLOGY METHOD 5 12:46 PM EST [facility] Plesiomonas shigelloides Detection by PCR Not Detected Not Detected LAB MICROBIOLOGY METHOD 5 12:46 PM EST [facility] Salmonella Detection by PCR Not Detected Not Detected LAB MICROBIOLOGY METHOD 5 12:46 PM EST [facility] Vibrio Detection by PCR Not Detected Not Detected LAB MICROBIOLOGY METHOD 5 12:46 PM [facility] Vibrio cholerae Detection by PCR Not Detected Not Detected LAB MICROBIOLOGY METHOD 5 12:46 PM EST [facility] Yersinia enterocolitica Detection by PCR Not Detected Not Detected LAB MICROBIOLOGY METHOD 5 12:46 PM EST [facility] Enteroaggregative E coli EAEC Detection [...] LAB MICROBIOLOGY METHOD 5 12:46 PM EST [facility] Shigella Enteroinvasive E coli EIEC Detection Not Detected Not Detected LAB MICROBIOLOGY METHOD 5 12:46 PM [facility] Cryptosporidium Detection by PCR Not Detected Not Detected LAB MICROBIOLOGY METHOD 5 12:46 PM EST [facility] Cyclospora cayetanensis Detection by PCR [...] 05/08/2024 6:00 AM EST 05/08/2024 10:34 AM [facility] LAB - 05/08/2024 12:46 PM EST [...] MICROBIOLOGY - GENERAL ORDER CHELA Final Result [facility] [address] [place] [address], documented in this encounter Visit Diagnoses Diagnosis Diarrhea, unspecified Encounter for screening mammogram for breast cancer documented in this encounter Additional Health Concerns Infection Onset Date Last Indicated Resolved Time Norovirus 05/08/2024 05/08/2024 documented as of this encounter Care Teams Transcription Typist Relationship Specialty Start Date End Date Ayan Clayton MD [address] [place] [id number] PCP - General Internal Medicine 07/11/24 documented as of this encounter
--- OUTSIDE RECORDS SUMMARY | 2024-07-25 11:04 | XMS_ITS | Encounter Summary ---
Author Organization [facility] Address [address] [place] [address] Care Team Providers Care State Epidemiologist Name Role Phone Daniel Mota MD Primary Care Provider Unavail Victor Manuel Yu MD Primary Care Provider Unava ilable Daniel Mota MD Primary Care Provider Unavail Ayan Pulliam MD Primary Care Provider Victor Manuel Gonzales MD Primary Care Provider Justinava jaxson Encounter Details Date Type Department Care Team Description 05/15/2012 Controlled Substance Plan Medical Records [address] [place] [address] Abstract, Provider Social History Tobacco Use Types [...] Epidemiologist Relationship Specialty Start Date End Date Daniel Mota MD PCP - General 07/27/1994 12/22/15 Victor Manuel Gonzales MD PCP - General Internal Medicine 07/22/16 10/19/16 Daniel Mota MD PCP - General Internal Medicine 10/20/16 09/23/19 Ayan Clayton MD [address] [place] [address] PCP - General Internal Medicine 09/24/19 Victor Manuel Gonzales MD PCP - General 12/23/15 07/21/16 documented as of this encounter
--- OUTSIDE RECORDS SUMMARY | 2024-07-25 11:04 | XMS_ITS | Encounter Summary ---
Author Organization [facility] Address [address] [place] [address] Care Team Providers Care Certified Physical Therapist Assistant Name Role Phone Ayan Clayton MD Primary Care Provider [phone] Encounter Details Date Type Department Care Team (Late Contact Info) Description 05/06/2024 Lab Requisition [facility] - Main Lab [address] [facility] [place] [address] Niels Retana MD [address] [place] [address] [address] [place], [address] Other longterm (current) drug therapy Social History Tobacco Use [...] 10:00 AM EDT Appointment Radiology Department - [address] [address] 12/05/2024 3:45 PM EDT Office Visit Nephrology - [place] [address] [place] [address] Vega Navarro MD [address] [facility] 204 [place] [phone] 02/04/2025 9:00 AM EST Office Visit Bariatric Surgery - [place] 175 [facility] 120 [place] [phone] Torrey Moreno MD 175 [facility] 120 [place] [address] 06/12/2025 9:10 AM EDT Office Visit Pulmonolgy - [place] 175 [facility] 200 [place] [phone] Jil Freeman NP 175 [facility] 200 [place] [address] documented as of this encounter Procedures Procedure Name Priority Date/Time Associated Diagnosis Comments COMPLETE BLOOD COUNT Routine 05/06/2024 6:41 AM EST Other longterm (current) drug therapy COMPREHENSIVE METABOLIC PANEL Routine 05/06/2024 6:41 AM EST Other longterm (current) drug therapy documented in this encounter Results * (ABNORMAL) Comprehensive metabolic panel (05/06/2024 6:41 AM EST) Sodium 141 133 - 145 mmol/L LAB CHEMISTRY METHOD 05/06/2024 2:03 PM EST [facility] Potassium 3.6 3.5 [...] MD LAB BLOOD ORDERABLES Final Resul t [facility] [address] [place] [address], * (ABNORMAL) Complete blood count (05/06/2024 6:41 [...] LAB HEMETOLOGY METHOD 05/06/2024 1:39 PM EST [facility] MPV 10.1 7.0 - 11.0 FL LAB HEMETOLOGY METHOD 05/06/2024 1:39 PM EST [facility] NRBC 0.0 <1.0 % LAB HEMETOLOGY METHOD 05/06/2024 1:39 PM EST [facility] NRBC Absolute 0.00 <0.10 K/mcL LAB HEMETOLOGY METHOD 05/06/2024 1:39 PM EST [facility] Blood Venous blood specimen / Unknown Venipuncture / Unknown 05/06/2024 6:41 AM EST 05/06/2024 12:07 PM EST us Niels Retana MD LAB BLOOD ORDERABLES Final Resul t [facility] [address] [place] [address], documented in this encounter Visit Diagnoses Diagnosis Other longterm (current) drug therapy Encounter for screening mammogram for breast cancer documented in this encounter Additional Health Concerns Infection Onset Date Last Indicated Resolved Time Norovirus 05/08/2024 05/08/2024 documented as of this encounter Care Teams Certified Physical Therapist Assistant Relationship Specialty Start Date End Date Ayan Clayton MD [address] [place] [address] PCP - General Internal Medicine 07/11/24 documented as of this encounter
--- OUTSIDE RECORDS SUMMARY | 2024-07-25 11:04 | XMS_ITS | Encounter Summary ---
Author Organization [facility] Address [address] [place] [address] Care Team Providers Care Choir Member Name Role Phone Daniel Mota MD Primary Care Provider Unavail Victor Manuel Yu MD Primary Care Provider Unava ilable Daniel Mota MD Primary Care Provider Unavail Ayan Pulliam MD Primary Care Provider [phone] Victor Manuel Gonzales MD Primary Care Provider Unava ilmaximino Encounter Details Date Type Department Care Team Description 12/27/2010 Corridor Redevelopment Manager Report Medical Records [address] [place] [address] Elgin Russell MD Social History Tobacco Use [...] on filedocumented in this encounter Care Teams Choir Member Relationship Specialty Start Date End Date Daniel Mota MD PCP - General 07/27/1994 12/22/15 Victor Manuel Gonzales MD PCP - General Internal Medicine 07/22/16 10/19/16 Daniel Mota MD PCP - General Internal Medicine 10/20/16 09/23/19 Ayan Clayton MD [address] [place] [address] PCP - General Internal Medicine 09/24/19 Victor Manuel Gonzales MD PCP - General 12/23/15 07/21/16 documented as of this encounter
--- OUTSIDE RECORDS SUMMARY | 2024-07-25 11:04 | XMS_ITS | Encounter Summary ---
Author Organization [facility] Address [address] [place] [address] Care Team Providers Care Engraver Optical Frames Name Role Phone Daniel Mota MD Primary Care Provider Unavail able Ayan Clayton MD Primary Care Provider [phone] Encounter Details Date Type Department Care Team Description 06/09/2017 Fish Frog Or Oyster Farmer Report Medical Records [address] [place] [id number] Betty Bach MD [address] [place] [address] [address] [place] [address] Social History Tobacco Use Types Packs/Day Years [...] on filedocumented in this encounter Care Teams Engraver Optical Frames Relationship Specialty Start Date End Date Daniel Mota MD PCP - General Internal Medicine 10/20/16 09/23/19 Ayan Clayton MD [address] [place], [place] [phone] PCP - General Internal Medicine 09/24/19 documented as of this encounter
--- OUTSIDE RECORDS SUMMARY | 2024-07-25 11:04 | XMS_ITS | Encounter Summary ---
Author Organization [facility] Address [address] [place] [address] Care Team Providers Care Journal Entry Audit Clerk Name Role Phone Victor Manuel Gonzales MD Primary Care Provider Daniel Longoria MD Primary Care Provider [facility] Ayan Clayton MD Primary Care Provider [phone] Encounter Details Date Type Department Care Team Description 09/09/2016 Business Doc Medical Records [address] [place] [address] Abstract, Provider Social History Tobacco Use Types [...] on filedocumented in this encounter Care Teams Journal Entry Audit Clerk Relationship Specialty Start Date End Date Victor Manuel Gonzales MD PCP - General Internal Medicine 07/22/16 10/19/16 Daniel Mota MD PCP - General Internal Medicine 10/20/16 09/23/19 Ayan Clayton MD [address] [place] [address] PCP - General Internal Medicine 09/24/19 documented as of this encounter
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
--- OUTSIDE RECORDS SUMMARY | 2024-07-25 11:04 | XMS_ITS | Encounter Summary ---
Author Organization [facility] Address [address] [place] [address] Care Team Providers Care Chief Ultrasound Technologist Name Role Phone Ayan Clayton MD Primary Care Provider [phone] Reason for Visit * Reason Onset Date Comments refill request 02/03/2021 Encounter Details Date Type Department Care Team Description 02/03/2021 Refill Pulmonology - [place] 175 [facility] [address] [place] [phone] Jil Freeman APRN 175 [facility] 200 [place] [phone] refill request Social History Tobacco Use Types [...] / Plan: [place] / Product Type: MEDICARE [id number] documented in this encounter Plan of Treatment Not on file documented as of this encounter Visit Diagnoses Diagnosis Post-nasal drainage Unspecified sinusitis (chronic) Centrilobular emphysema (HCC) Other emphysema documented in this encounter Care Teams Chief Ultrasound Technologist Relationship Specialty Start Date End Date Ayan Clayton MD [address] [place] [address] PCP - General Internal Medicine 09/24/19 documented as of this encounter
--- OUTSIDE RECORDS SUMMARY | 2024-07-25 11:04 | XMS_ITS | Encounter Summary ---
Author Organization [facility] Address [address] [place] [address] Care Team Providers Care Territory Sales Consultant Name Role Phone Victor Manuel Gonzales MD Primary Care Provider Daniel Longoria MD Primary Care Provider [facility] able Ayan Clayton MD Primary Care Provider [phone] Victor Manuel Gonzales MD Primary Care Provider Candida puri Encounter Details Date Type Department Care Team Description 01/18/2016 Release of Information Medical Records [address] [place] [address] Abstract, Provider Social History Tobacco Use Types [...] filedocumented in this encounter Care Teams Territory Sales Consultant Relationship Specialty Start Date End Date Victor Manuel Gonzales MD PCP - General Internal Medicine 07/22/16 10/19/16 Daniel Mota MD PCP - General Internal Medicine 10/20/16 09/23/19 Ayan Clayton MD [address] [place] [address] PCP - General Internal Medicine 09/24/19 Victor Manuel Gonzales MD PCP - General 12/23/15 07/21/16 documented as of this encounter
--- OUTSIDE RECORDS SUMMARY | 2024-07-25 11:04 | XMS_ITS | Encounter Summary ---
Author Organization [facility] Address [address] [place] [address] Care Team Providers Care Boot And Shoe Laborer Name Role Phone Ayan Clayton MD Primary Care Provider [phone] Encounter Details Date Type Department Care Team Description 08/25/2022 Cigar Packer Report Medical Records [address] [place] [address] Alexis Campbell MD Social History Tobacco Use [...] on filedocumented in this encounter Care Teams Boot And Shoe Laborer Relationship Specialty Start Date End Date Ayan Clayton MD [address] [place] [address] PCP - General Internal Medicine 09/24/19 documented as of this encounter
--- OUTSIDE RECORDS SUMMARY | 2024-07-25 11:04 | XMS_ITS | Encounter Summary ---
Author Organization [facility] Address [address] [place] [address] Care Team Providers Care Cell Biologist Name Role Phone Ayan Clayton MD Primary Care Provider [phone] Encounter Details Date Type Department Care Team Description 06/22/2020 Sedimentationist Report Medical Records [address] [place] [address] Abstract, Provider Social History Tobacco Use Types [...] on filedocumented in this encounter Care Teams Cell Biologist Relationship Specialty Start Date End Date Ayan Clayton MD [address] [place], [place] [phone] PCP - General Internal Medicine 09/24/19 documented as of this encounter
--- OUTSIDE RECORDS SUMMARY | 2024-07-25 11:04 | XMS_ITS | Encounter Summary ---
Author Organization [facility] Address [address] [place] [address] Care Team Providers Care Port Purser Name Role Phone Daniel Mota MD Primary Care Provider Unavail Victor Manuel Yu MD Primary Care Provider Unava ilable Daniel Mota MD Primary Care Provider Unavail Ayan Pulliam MD Primary Care Provider [phone] Victor Manuel Gonzales MD Primary Care Provider Unava ilmaximino Encounter Details Date Type Department Care Team Description 05/02/2011 Concrete Form Setter And Finisher Report Medical Records [address] [place] [address] Elgin Russell MD Social History Tobacco Use [...] on filedocumented in this encounter Care Teams Port Purser Relationship Specialty Start Date End Date Daniel Mota MD PCP - General 07/27/1994 12/22/15 Victor Manuel Gonzales MD PCP - General Internal Medicine 07/22/16 10/19/16 Daniel Mota MD PCP - General Internal Medicine 10/20/16 09/23/19 Ayan Clayton MD [address] [place] [address] PCP - General Internal Medicine 09/24/19 Victor Manuel Gonzales MD PCP - General 12/23/15 07/21/16 documented as of this encounter
--- OUTSIDE RECORDS SUMMARY | 2024-07-25 11:04 | XMS_ITS | Encounter Summary ---
Author Organization [facility] Address [address] [place] [address] Care Team Providers Care Molecular Spectroscopist Name Role Phone Daniel Mota MD Primary Care Provider Unavail [facility] Ayan Clayton MD Primary Care Provider [phone] Encounter Details Date Type Department Care Team Description 03/03/2017 Button Sewer Report Medical Records [address] [place] [address] Lida Renae PA-C [address] [place] [address] Social History Tobacco Use Types Packs/Day [...] on filedocumented in this encounter Care Teams Molecular Spectroscopist Relationship Specialty Start Date End Date Daniel Mota MD PCP - General Internal Medicine 10/20/16 09/23/19 Ayan Clayton MD [address] [place] [address] PCP - General Internal Medicine 09/24/19 documented as of this encounter
--- OUTSIDE RECORDS SUMMARY | 2024-07-25 11:04 | XMS_ITS | Encounter Summary ---
Author Organization [facility] Address [address] [place] [address] Care Team Providers Care Area Field Worker Name Role Phone Ayan Clayton MD Primary Care Provider [phone] Encounter Details Date Type Department Care Team Description 03/11/2021 Radar Engineering Teacher Report Medical Records [address] [place] [address] Skylar Hanna DPM Social History Tobacco Use [...] on filedocumented in this encounter Care Teams Area Field Worker Relationship Specialty Start Date End Date Ayan Clayton MD [address] [place], [place] [phone] PCP - General Internal Medicine 09/24/19 documented as of this encounter
--- OUTSIDE RECORDS SUMMARY | 2024-07-25 11:04 | XMS_ITS | Encounter Summary ---
Author Organization [facility] Address [address] [place] [address] Care Team Providers Care Supervisory Cbp Officer Name Role Phone Ayan Clayton MD Primary Care Provider Encounter Details Date Type Department Care Team Description 03/03/2021 Facility Maintenance Mechanic Report Medical Records [address] [place] [address] Rell Leavitt Social History Tobacco Use Types [...] on filedocumented in this encounter Care Teams Supervisory Cbp Officer Relationship Specialty Start Date End Date Ayan Clayton MD [address] [place], [place] [phone] PCP - General Internal Medicine 09/24/19 documented as of this encounter
--- OUTSIDE RECORDS SUMMARY | 2024-07-25 11:04 | XMS_ITS | Encounter Summary ---
Author Organization [facility] Address [address] [place] [address] Care Team Providers Care Messenger Copy Name Role Phone Daniel Mota MD Primary Care Provider [facility] Ayan Pulliam MD Primary Care Provider [phone] Reason for Visit * Reason Onset Date Comments Senior Systems Analyst Feedback 05/12/2017 Cardiac Stress T est Encounter Details Date Type Department Care Team Description 05/12/2017 Telephone Adult Medicine [facility] [address] [place] [address] Daniel Mota MD Senior Systems Analyst Feedback (Cardiac Stress Test) Social History Tobacco [...] on filedocumented in this encounter Care Teams Messenger Copy Relationship Specialty Start Date End Date Dainel Mota MD PCP - General Internal Medicine 10/20/16 09/23/19 Ayan Clayton MD [address] [place] [address] PCP - General Internal Medicine 09/24/19 documented as of this encounter
--- OUTSIDE RECORDS SUMMARY | 2024-07-25 11:04 | XMS_ITS | Encounter Summary ---
Author Organization [facility] Address [address] [place] [address] Care Team Providers Care Ground Hand Name Role Phone Ayan Clayton MD Primary Care Provider [phone] Encounter Details Date Type Department Care Team Description 11/26/2020 Sausage Wrapper Report Medical Records [address] [place] [address] Rell Leavitt Social History Tobacco Use Types [...] on filedocumented in this encounter Care Teams Ground Hand Relationship Specialty Start Date End Date Ayan Clayton MD [address] [place], [place] [phone] PCP - General Internal Medicine 09/24/19 documented as of this encounter
--- OUTSIDE RECORDS SUMMARY | 2024-07-25 11:04 | XMS_ITS | Encounter Summary ---
Author Organization [facility] Address [address] [place] [address] Care Team Providers Care Retort Loader Name Role Phone Daniel Mota MD Primary Care Provider Unavail able Ayan Clayton MD Primary Care Provider [phone] Encounter Details Date Type Department Care Team Description 01/26/2017 University Extension Specialist Report Medical Records [address] [place] [phone] Betty Bach MD [address] [place] [address] [address] [place] [address] Social History Tobacco Use Types Packs/Day Years [...] on filedocumented in this encounter Care Teams Retort Loader Relationship Specialty Start Date End Date Daniel Mota MD PCP - General Internal Medicine 10/20/16 09/23/19 Ayan Clayton MD [address] [place], [place] [phone] PCP - General Internal Medicine 09/24/19 documented as of this encounter
--- OUTSIDE RECORDS SUMMARY | 2024-07-25 11:04 | XMS_ITS | Encounter Summary ---
Author Organization [facility] Address [address] [place] [address] Care Team Providers Care Project Administrative Assistant Name Role Phone Daniel Mota MD Primary Care Provider Unavail Victor Manuel Yu MD Primary Care Provider Unava ilable Daniel Mota MD Primary Care Provider Unavail Ayan Pulliam MD Primary Care Provider [phone] Victor Manuel Gonzales MD Primary Care Provider Unava ilmaximino Encounter Details Date Type Department Care Team Description 02/24/2011 Cordwainer Report Medical Records [address] [place] [address] Elgin Russell MD Social History Tobacco Use [...] on filedocumented in this encounter Care Teams Project Administrative Assistant Relationship Specialty Start Date End Date Daniel Mota MD PCP - General 07/27/1994 12/22/15 Victor Manuel Gonzales MD PCP - General Internal Medicine 07/22/16 10/19/16 Daniel Mota MD PCP - General Internal Medicine 10/20/16 09/23/19 Ayan Claytno MD [address] [place] [address] PCP - General Internal Medicine 09/24/19 Victor Manuel Gonzales MD PCP - General 12/23/15 07/21/16 documented as of this encounter
--- OUTSIDE RECORDS SUMMARY | 2024-07-25 11:04 | XMS_ITS | Encounter Summary ---
Author Organization [facility] Address [address] [place] [address] Care Team Providers Care De Icer Name Role Phone Ayan Clayton MD Primary Care Provider [phone] Encounter Details Date Type Department Care Team Description 02/25/2021 Hospital Medical Records [address] [place] [address] Rell Leavitt Social History Tobacco Use Types [...] in this encounter Care Teams De Icer Relationship Specialty Start Date End Date Ayan Clayton MD [address] [place], [place] [phone] PCP - General Internal Medicine 09/24/19 documented as of this encounter
--- OUTSIDE RECORDS SUMMARY | 2024-07-25 11:04 | XMS_ITS | Encounter Summary ---
Author Organization [facility] Address [address] [place] [address] Care Team Providers Care Dictaphone Typist Name Role Phone Daniel Mota MD Primary Care Provider Unavail Victor Manuel Yu MD Primary Care Provider Unava ilable Daniel Mota MD Primary Care Provider Unavail Ayan Pulliam MD Primary Care Provider [phone] Victor Manuel Gonzales MD Primary Care Provider Unava ilmaximino Encounter Details Date Type Department Care Team Description 11/04/2010 Handle Machine Operator Report Medical Records [address] [place] [address] Elgin Russell MD Social History Tobacco Use [...] on filedocumented in this encounter Care Teams Dictaphone Typist Relationship Specialty Start Date End Date Daniel Mota MD PCP - General 07/27/1994 12/22/15 Victor Manuel Gonzales MD PCP - General Internal Medicine 07/22/16 10/19/16 Daniel Mota MD PCP - General Internal Medicine 10/20/16 09/23/19 Ayan Clayton MD [address] [place] [address] PCP - General Internal Medicine 09/24/19 Victor Manuel Gonzales MD PCP - General 12/23/15 07/21/16 documented as of this encounter
--- OUTSIDE RECORDS SUMMARY | 2024-07-25 11:05 | XMS_ITS | Encounter Summary ---
Author Organization [facility] Address [address] [place] [address] Care Team Providers Care It Teacher Name Role Phone Ayan Clayton MD Primary Care Provider [phone] Encounter Details Date Type Department Care Team Description 12/08/2022 Business Doc Medical Records [address] [place] [address] Abstract, Provider Social History Tobacco Use Types [...] filedocumented in this encounter Care Teams It Teacher Relationship Specialty Start Date End Date Ayan Clayton MD [address] [place], [place] [phone] PCP - General Internal Medicine 09/24/19 documented as of this encounter
--- OUTSIDE RECORDS SUMMARY | 2024-07-25 11:05 | XMS_ITS | Encounter Summary ---
Author Organization [facility] Address [address] [place] [address] Care Team Providers Care Websphere Portal Developer Name Role Phone Daniel Mota MD Primary Care Provider Ayan Rubalcava MD Primary Care Provider [phone] Reason for Visit * Reason Onset Date Comments refill request 10/27/2017 Encounter Details Date Type Department Care Team Description 10/27/2017 Refill Podiatry - [place] [address] [place] [address] Skylar Hanna DPM refill request Social History [...] / Plan[place] / Product Type: MEDICARE [id number] documented in this encounter Plan of Treatment Not on file documented as of this encounter Visit Diagnoses Not on filedocumented in this encounter Care Teams Websphere Portal Developer Relationship Specialty Start Date End Date Daniel Mota MD PCP - General Internal Medicine 10/20/16 09/23/19 Ayan Clayton MD [address] [place] [address] PCP - General Internal Medicine 09/24/19 documented as of this encounter
--- OUTSIDE RECORDS SUMMARY | 2024-07-25 11:05 | XMS_ITS | Encounter Summary ---
Author Organization [facility] Address [address] [place] [address] Care Team Providers Care Catering Server Name Role Phone Ayan Clayton MD Primary Care Provider [phone] Encounter Details Date Type Department Care Team Description 03/28/2023 President Ergonomic Consulting Report Medical Records [address] [place] [address] Rell Leavitt Social History Tobacco Use Types [...] on filedocumented in this encounter Care Teams Catering Server Relationship Specialty Start Date End Date Ayan Clayton MD [address] [place], [place] [phone] PCP - General Internal Medicine 09/24/19 documented as of this encounter
--- OUTSIDE RECORDS SUMMARY | 2024-07-25 11:05 | XMS_ITS | Encounter Summary ---
Author Organization [facility] Address [address] [place] [address] Care Team Providers Care Pile Driving Supervisor Name Role Phone Ayan Clayton MD Primary Care Provider [phone] Encounter Details Date Type Department Care Team Description 04/04/2023 Orders Only [facility] Lung Screening Program [place] 299 [facility] [address] [place] [phone] Frank Hampton MD 299 [facility] [address] [place] [address] History of tobacco abuse Social History Tobacco [...] health documented in this encounter Care Teams Pile Driving Supervisor Relationship Specialty Start Date End Date Ayan Clayton MD [address] [place] [address] PCP - General Internal Medicine 09/24/19 documented as of this encounter
--- OUTSIDE RECORDS SUMMARY | 2024-07-25 11:05 | XMS_ITS | Encounter Summary ---
Author Organization [facility] Address [address] [place] [address] Care Team Providers Care Manager Lpn Name Role Phone Ayan Clayton MD Primary Care Provider [phone] Encounter Details Date Type Department Care Team Description 10/21/2022 Orders Only [facility] Lung Screening Program [place] [address] [facility] [address] [place] [phone] Frank Hampton MD [address] [facility] [address] [place] [address] History of tobacco use, presenting hazards to [...] health documented in this encounter Care Teams Manager Lpn Relationship Specialty Start Date End Date Ayan Clayton MD [address] [place] [address] PCP - General Internal Medicine 09/24/19 documented as of this encounter
--- OUTSIDE RECORDS SUMMARY | 2024-07-25 11:05 | XMS_ITS | Encounter Summary ---
Author Organization [facility] Address [address] [place] [address] Care Team Providers Care Granulator Operator Name Role Phone Ayan Clayton MD Primary Care Provider [phone] Encounter Details Date Type Department Care Team Description 12/21/2022 Orders Only Medical Records [address] [place] [address] Abstract, Provider Social History Tobacco Use Types [...] on filedocumented in this encounter Care Teams Granulator Operator Relationship Specialty Start Date End Date Ayan Clayton MD [address] [place] [address] PCP - General Internal Medicine 09/24/19 documented as of this encounter
--- OUTSIDE RECORDS SUMMARY | 2024-07-25 11:05 | XMS_ITS | Encounter Summary ---
Author Organization [facility] Address [address] [place] [address] Care Team Providers Care Residential Electrician Name Role Phone Ayan Clayton MD Primary Care Provider [phone] Encounter Details Date Type Department Care Team Description 03/26/2023 Quality Supervisor Report Medical Records [address] [place] [address] Center, [facility] [address] [place] [address] Social History Tobacco Use Types Packs/Day Years [...] on filedocumented in this encounter Care Teams Residential Electrician Relationship Specialty Start Date End Date Ayan Clayton MD [address] [place], [place] [phone] PCP - General Internal Medicine 09/24/19 documented as of this encounter
--- OUTSIDE RECORDS SUMMARY | 2024-07-25 11:05 | XMS_ITS | Encounter Summary ---
Author Organization [facility] Address [address] [place] [address] Care Team Providers Care Editor In Chief Newspaper Name Role Phone Daniel Mota MD Primary Care Provider Unavail able Ayan Clayton MD Primary Care Provider [phone] Encounter Details Date Type Department Care Team Description 03/05/2018 Vegetable Farming Supervisor Report Medical Records [address] Social History Tobacco Use Types Packs/Day [...] on filedocumented in this encounter Care Teams Editor In Chief Newspaper Relationship Specialty Start Date End Date Daniel Mota MD PCP - General Internal Medicine 10/20/16 09/23/19 Ayan Clayton MD [address] [place] [address] PCP - General Internal Medicine 09/24/19 documented as of this encounter
--- OUTSIDE RECORDS SUMMARY | 2024-07-25 11:05 | XMS_ITS | Encounter Summary ---
Author Organization [facility] Address [address] [place] [address] Care Team Providers Care Attendant Lodging Facilities Name Role Phone Ayan Clayton MD Primary Care Provider [phone] Reason for Visit * Reason Comments E-prescribe Rx Request Encounter Details Date Type Department Care Team Description 08/28/2022 Refill Gastroenterology - [place] [address] [facility] [address] [place] [address] Jerrod Joe PA-C E-prescribe Rx [...] on filedocumented in this encounter Care Teams Attendant Lodging Facilities Relationship Specialty Start Date End Date Ayan Clayton MD [address] [place] [address] PCP - General Internal Medicine 09/24/19 documented as of this encounter
== END 2024-07-25 10:15 | disposition home or self-care (01) ==
LOC: HO.HOS 09:52
PROVIDERS: PCP Hospitalist; Visit Provider Orthopaedic Surgery
DX: Z47.1 Aftercare following joint replacement surgery (principal); Z96.641 Presence of right artificial hip joint
CPT/HCPCS: 99024

== ENCOUNTER → 2024-07-25 09:55 | Outpatient (BNV) | payer OTHER, SELFPAY | PROVIDERS: Visit Provider Radiology Diagnostic Radiology | DX: M25.551 Pain in right hip (principal); Z96.643 Presence of artificial hip joint, bilateral | CPT/HCPCS: 72170; 73501 ==

== ENCOUNTER 2024-08-13 08:52 | Outpatient (AMB) | payer OTHER, SELFPAY ==
[2024-08-13 09:05] VITALS: BMI 25.8
--- NOTE | 2024-08-13 09:05 | A.OFFVIS_ITS ---
Vital Signs 08/13/24 09:05 Height 4 ft 11.5 in Weight 130 lb BMI 25.8 Intake Visit Reasons: 6 mo follow up IVC filter follow up Intake Note: 6 mo follow up IVC filter [id number]/13/2024 s/p total Right Hip sx 04/30/24. Pt states no issues, hip feels great. Salvager Required: No Accompanied by: Self / Same As Patient Allergies Sulfa (Sulfonamide Antibiotics) Allergy (Severe, Verified 08/13/24 09:11) throat swelling metformin Adverse Reaction (Intermediate, Verified 08/13/24 09:11) diarrhea semaglutide [From Ozempic] Adverse Reaction (Intermediate, Verified 08/13/24 09:11) pancreatitis HPI HPI 6 mo follow up IVC filter follow up: Details: The patient is a 68-year-old female presenting with follow-up on an inferior vena cava (IVC) filter placed for a blood clot and concerns about ear swelling. The IVC filter was placed on February 07, 2024, for clot management; she remains on Eliquis and noted the medicine was paused briefly during recent orthopedic surgery (performed on April 30). Post-procedure recovery was smooth. She expresses concern about swelling in the ear area, attributing it to both the prior surgery and blood clots. She has tried compression stockings from the hospital, which were too tight, and she's been advised to try physical fitness trainer compression wear. [facility] Medical History (Updated 08/14/24 @ 07:49 by Ramu Osorio MD) DVT (deep venous thrombosis) Metabolic acidosis Hypertension Hypokalemia Hypernatremia History of kidney infection (~08/2023) DVT (deep venous thrombosis) Diabetes Elevated blood pressure reading with diagnosis of hypertension Abdominal hernia Asthma Arthritis Osteoarthritis (arthritis due to wear and tear of joints) COVID-19 vaccine series completed Full dentures Arthritis of left hip Low back pain Liver cyst COPD (chronic obstructive pulmonary disease) Elevated cholesterol Surgical History S/P insertion of IVC (inferior vena caval) filter (02/07/24) History of total left hip arthroplasty (08/29/23) Hx of gastric bypass Hx of ankle fusion Status post insertion of nerve stimulator Hx of colonoscopy Hx of carpal tunnel repair History of back surgery Social History Household Members: None [facility] Are you a primary neonatal critical care nurse to a significant other at home: No Do you presently have visiting nurse or other home services: No Comment: pt rings appropriately Patient Tobacco Use Status: Former Tobacco user Tobacco use type: Cigarette Cigarettes Per Day: 60 Years Smoked: quit 15 years ago Second Hand Smoke Exposure: No service: No Review of Systems Const All systems reviewed & are unremarkable except as noted in HPI and below Reports no additional complaints ENT Reports Normal hearing present Card Denies chest pain, Denies chest pain at rest, Denies chest pain with activity and Denies pedal edema Resp Denies cough GI Denies abdominal pain Musc Denies abnormal gait, Denies muscle cramps and Denies radiating pain into limb Skin/Breast Denies skin ulcer and Denies wounds Neuro Reports Normal hearing present and Denies abnormal gait Psych Reports no additional complaints Physical Exam Vital Signs: BMI result Body Mass Index 25.8 Const General: cooperative, healthy appearing and comfortable Orientation/consciousness: oriented to person, oriented to place and oriented to time HEENT Head: Yes normal to inspection Neck Neck: Yes normal visual inspection Carotids: no bruits Chest Chest palpation & inspection: normal inspection of the chest Resp Effort & Inspection: normal respiratory effort and able to speak in complete sentences Auscultation: clear to auscultation bilaterally, no crackles, no rales, no rhonchi and no wheezes Cardio Rate: regular rate Rhythm: regular rhythm Heart sounds: S1 normal heart sound present and S2 normal heart sound present Bruits: no carotid bruits Peripheral pulses: Peripheral pulses 2+ throughout GI Inspection: Yes normal to inspection Skin Wounds: no wounds Hair: normal Neuro General: oriented to person, oriented to place and oriented to time Cranial nerves: Yes CN's II-XII intact bilaterally and Yes Normal hearing present Cognition (Neuro): normal cognition Motor exam (neuro): 5/5 motor strength present throughout Extrem Other: venous exam: +2 edema General: No clubbing, No cyanosis and Yes edema Psych Appearance: grossly normal Mental Status: mental status grossly normal Speech and movement: Normal speech and movement present Assessment & Plan Assessment & Plan (1) DVT (deep venous thrombosis): Code(s): I82.409 - Acute embolism and thrombosis of unspecified deep veins of unspecified lower extremity Category: Medical Qualifiers: DVT location: lower extremity Affected thrombotic vein of extremity: unspecified vein of extremity Chronicity: chronic Laterality: left Qualified Code(s): I82.502 - Chronic embolism and thrombosis of unspecified deep veins of left lower extremity Plan: In short patient will require removal of inferior vena cava filter. The perioperative risks surrounding orthopedic surgery has resolved and she is more ambulatory now. I discussed with the patient the specifics regarding the scheduled removal of the inferior vena cava (IVC) filter. This will involve retrieval through a neck incision, with an expectation of an hour and a half for the procedure, followed by an hour of observation. The risks, benefits, and necessity of pausing Eliquis 48 hours prior were explained, as was the need for post-procedural transportation. I advised that physical fitness trainer-grade compression stockings might better manage her symptoms related to ear swelling. We discussed the importance of leg elevation and increased mobility with assistance post- orthopedic surgery. She is scheduled as soon as possible. Thank you for allowing us to assist in her care. If there are any questions or concerns please do not hesitate to contact us. Coding Level of Care Code Est Pt Level 4 (91559) Diagnoses Chronic deep vein thrombosis (DVT) of left lower extremity, unspecified vein I82.502 DVT location: lower extremity Affected thrombotic vein of extremity: unspecified vein of extremity Chronicity: chronic Laterality: left
--- OUTSIDE RECORDS SUMMARY | 2024-08-13 09:15 | XMS_ITS | Clinical Summary ---
Author Organization 175 [facility] Address [address] [place] [address] Phone Care Team Providers Care Correspondence Section Supervisor Name Role Phone Ayan Clayton MD Primary Care Provider [phone] Allergies Active Allergy Reactions Criticality Noted Date [...] rhinitis due to pollen 10/01/2018 Centrilobular emphysema ([facility] V24, [facility] V2 8) 10/01/2018 Overview (12/29/2023): CT [...] 2 diabetes mellitus wit h neurological manifestations ([facility] V24, [facility] V28) 07/11/2012 Type 2 diabetes mellitus wit h renal manifestations ([facility] V24, [facility] V28) 07/11/2012 Overview (12/29/2023): Microalbumin 58 on 08/2011 Hypertension 05/14/2010 Fibromyalgia 03/28/2005 Hyperlipidemia 03/28/2005 Resolved Problems Problem Noted Date Diagnosed Date Resolved Date Overweight (BMI 25.0-29.9) 11/07/2022 0 04/02/2024 Encounters Date Type Department Care Team Description 07/05/2024 Telephone Adult Medicine [address] [address] Laclair, Angela, CREDIT COUNSELOR Fitting for DME (Faxed form from [place]) 06/12/2024 8:50 AM EDT Office Visit Pulmonolgy - [place] [address] [facility] [address] [place] [address] Jil Freeman, KALE Centrilobular emphysema ([facility] V24, [facility] V28) (Primary Dx); Nocturnal hypoxemia; Snoring; Severe persistent asthma without complication ([facility] V28); Seasonal allergic rhinitis due to pollen 06/05/2024 Telephone Nephrology [facility] [address] [place] [address] Vega Navarro MD Hypotension from Last 3 Months Immunizations Name Administration [...] pollen 10/01/2018 Centrilobular emphysema (CMS /HCC V24, CMS/HCC V28) 10/01/2018 Snoring 05/24/2017 05/18/2017 Home S [...] AM EDT Appointment Radiology Department - [address] [phone] 12/05/2024 3:45 PM EDT Office Visit Nephrology - [address] [phone] Vega Navarro MD [address] [facility] [address] [place] [phone] 02/04/2025 9:00 AM EST Office Visit Bariatric Surgery - [place] [address] [facility] [address] [place] [phone] Torrey Moreno MD [address] [facility] [address] [place] [address] 06/12/2025 9:20 AM EDT Office Visit Pulmonolgy - [place] [address] [facility] [address] [place] [phone] Jil Freeman NP [address] [facility] [address] [place] [address] Health Maintenance Due Date Last Done Comments [...] Comments POLYSOMNOGRAPHY Routine 06/11/2024 2:16 PM EDT COMPREHENSIVE METABOLIC PANEL Routine 05/06/2024 6:41 AM EST Other manager intermediate (current) drug therapy SCREENING MAMMOGRAPHY BI 2-VIEW [...] CENTER ORDERABLES F inal Result * (ABNORMAL) Comprehensive metabolic panel (05/06/2024 6:41 [...] MD LAB BLOOD ORDERABLES Final Resul t [facility] [address] [place] [address], * SCREENING MAMMOGRAPHY BI 2-VIEW BREAST INC [...] 12 months. BI-RADS: Category 2: Benign Result [facility] Ayan Clayton MD IMG XR PROCEDURES Final Result * Urine Albumin Creatinine Ratio (06/29/2023) Pathologist [facility] Urine Albumin Creatinine Ratio ABSTRACTED Result [facility] HEALTH MAINTENANCE Final Result * Hemoglobin A1c (06/29/2023) [facility] Hemoglobin A1C 5.2 <=6.5 % Blood Venous blood specimen / Unknown Result [facility] LAB BLOOD ORDERABLES Fely l Result * Lipid panel (06/29/2023) [facility] LDL/HDL Ratio 2 0 - 4 Triglycerides 142 0 - 150 mg/dL Cholesterol 172 0 - 200 mg/dL HDL 79 >=40 mg/dL LDL Cholesterol 65 0 - 100 mg/dL Blood Venous blood specimen / Unknown Result [facility] LAB BLOOD ORDERABLES Fely l Result * Diabetes Foot Exam (04/10/2023) [facility] Diabetes: Annual Foot Exam ABSTRACTED Result [facility] Final Result * DXA BONE DENSITY STUDY [...] bone mineral density by WHO criteria. The [facility] Department of Internal Medicine recommends using [...] alternative screening schedule based on albert Kincaid., [facility] April 14, 2011 for patients [...] bone mineral density by WHO criteria. The [facility] Department of Internal Medicine recommendsusing National [...] alternative screening schedule based on albert Kincaid., NEJMJanuary 2011 for patients with osteopenia (based on hip BMD T-score) is as follows: * advanced osteopenia (T scores -2.00 to -2.49), BMD testing every year * moderate osteopenia (T scores -1.50 to -1.99), BMD testing every 5years mild osteopenia or normal BMD (T scores -1.50 and higher), BMD testingevery 15 years Lemuel Yang MD [facility] DXA PROCEDURES Fely l Result * Cervical Cancer Screening: HPV (04/28/2021) Pathologist [facility] Cervical Cancer Screening: HPV negative,a bstracted us Historical Provider HEALTH MAINTENANCE Final Result * Colonoscopy (02/16/2021) Colonoscopy no interpretation , abstracted Anatomical Region Laterality Modality Other Historical Provider HEALTH MAINTENANCE Final Result * Hepatitis C Screening (12/07/2020) Hepatitis C Screening ABSTRACTED Historical Provider HEALTH MAINTENANCE Final Result from Last 3 Months or Most Recently Relevant to Health Maintenance Additional Health Concerns Infection Onset Date Last Indicated Norovirus 05/08/2024 05/08/2024 Insurance [employer] MEDICARE Member Subscriber Plan / Payer (Ef fective 2023-Present) Name:Yanet King Relation to Subscriber:Self Name:Yanet King Payer ID:[id number] Group ID:[id number] Type:Not on file Address: [place] [address] [address] [id number] Advance Directives Documents on File Type Date Recorded Patient [employer] Director Expl anation Health Care Decision (hx) 05/19/2014 [...] (hx) 05/15/2014 AD QUIÑONEZ DIRECTIVE Care Teams Correspondence Section Supervisor Relationship Specialty Start Date End Date Ayan Clayton MD [address] [place] [address] PCP - General Internal Medicine 07/11/24
--- OUTSIDE RECORDS SUMMARY | 2024-08-13 09:15 | XMS_ITS | Encounter Summary ---
Author Organization [facility] Address [address] [place] [address] Care Team Providers Care Braker Passenger Train Name Role Phone Ayan Clayton MD Primary Care Provider [phone] Encounter Details Date Type Department Care Team (Late Contact Info) Description 05/08/2024 Lab Requisition [facility] - Main Lab [address] [facility] [place] [address] Niels Retana MD [address] [place] [address] [address] [place], [phone] Diarrhea, unspecified Social History Tobacco Use [...] 10:00 AM EDT Appointment Radiology Department - [address] [phone] 12/05/2024 3:45 PM EDT Office Visit Nephrology - [address] [place] [address] Vega Navarro MD [address] [facility] [address] [place] [phone] 02/04/2025 9:00 AM EST Office Visit Bariatric Surgery - [place] [address] [facility] [address] [place] [phone] Torrey Moreno MD 175 [facility] [address] [place] [address] 06/12/2025 9:20 AM EDT Office Visit Pulmonolgy - [place] [address] [facility] [address] [place] [phone] Jil Freeman NP [address] [facility] [address] [place] [address] documented as of this encounter Procedures Procedure Name Priority Date/Time Associated Diagnosis Comments GASTROINTESTINAL PATHOGENS BY PCR Routine 05/08/2024 6:00 AM EST Diarrhea, unspecified CLOSTRIDIUM DIFFICILE TOXIN Routine 05/08/2024 6:00 AM EST Diarrhea, unspecified documented in this encounter Results * Clostridium difficile toxin (05/08/2024 6:00 AM EST) Clostridium difficile GDH Antigen Negative Negative 05/08/2024 12:02 PM EST [facility] C difficile Toxins A+B, EIA Negative Negative 05/08/2024 12:02 PM EST [facility] Comment:NEGATIVE FOR TOXIN P RODUCING CLOSTRIDIOIDES DIFFICILE, NO ADDITIONAL TESTING IS NECESSARY. Stool Rectum structure / Unknown 05/08/2024 6:00 AM EST 05/08/2024 11:43 AM EST us Niels Retana MD LAB MICROBIOLOGY - GENERAL ORDER CHELA Final Result [facility] [address] [place] [address], * (ABNORMAL) Gastrointestinal pathogens molecular study (05/08/2024 6:00 AM EST) Campylobacter Detection by PCR Not Detected Not Detected LAB MICROBIOLOGY METHOD 5 12:46 PM EST [facility] Plesiomonas shigelloides Detection by PCR Not Detected Not Detected LAB MICROBIOLOGY METHOD 5 12:46 PM EST [facility] Salmonella Detection by PCR Not Detected Not Detected LAB MICROBIOLOGY METHOD 5 12:46 PM EST [facility] Vibrio Detection by PCR Not Detected Not Detected LAB MICROBIOLOGY METHOD 5 12:[address] [facility] Vibrio cholerae Detection by PCR Not Detected Not Detected LAB MICROBIOLOGY METHOD 5 12:46 PM EST [facility] Yersinia enterocolitica Detection by PCR Not Detected Not Detected LAB MICROBIOLOGY METHOD 5 12:46 PM EST [facility] Enteroaggregative E coli EAEC Detection by PCR Not Detected Not Detected LAB MICROBIOLOGY METHOD 5 12:[address] [facility] Enteropathogenic E coli EPEC Detection Not Detected Not Detected LAB MICROBIOLOGY METHOD 5 12:[address] [facility] Enterotoxigenic E coli ETEC LTST Detection Not Detected Not Detected LAB MICROBIOLOGY METHOD 5 12:[address] [facility] Shiga-like toxin producing E coli STEC STX1 STX2 Det Not Detected Not Detected LAB MICROBIOLOGY METHOD 5 12:46 PM EST [facility] Shigella Enteroinvasive E coli EIEC Detection Not Detected Not Detected LAB MICROBIOLOGY METHOD 5 12:[address] [facility] Cryptosporidium Detection by PCR Not Detected Not Detected LAB MICROBIOLOGY METHOD 5 12:46 PM EST [facility] Cyclospora cayetanensis Detection by PCR Not Detected Not Detected LAB MICROBIOLOGY METHOD 5 12:[address] [facility] Entamoeba histolytica Detection by PCR Not Detected Not Detected LAB MICROBIOLOGY METHOD 5 12:[address] [facility] Giardia lamblia Detection by PCR Not Detected Not Detected LAB MICROBIOLOGY METHOD 5 12:[address] [facility] Adenovirus F 40 41 Detection by PCR Not Detected Not Detected LAB MICROBIOLOGY METHOD 5 12:[address] [facility] Astrovirus Detection by PCR Not Detected Not Detected LAB MICROBIOLOGY METHOD 5 12:[address] [facility] Norovirus GI GII Detection by PCR Detected(A ) Not Detected LAB MICROBIOLOGY METHOD 5 12:[address] [facility] Sapovirus Detection by PCR Not Detected Not Detected LAB MICROBIOLOGY METHOD 5 12:[address] [facility] Rotavirus A Detection by PCR Not Detected Not Detected LAB MICROBIOLOGY METHOD 5 12:[address] [facility] Stool Rectum structure / Unknown 05/08/2024 6:00 AM EST 05/08/2024 10:[address] [facility] - 05/08/2024 12:46 PM EST PCR [...] - GENERAL ORDER CHELA Final Result [facility] [address] [place] [address], documented in this encounter Visit Diagnoses Diagnosis Diarrhea, unspecified Encounter for screening mammogram for breast cancer documented in this encounter Additional Health Concerns Infection Onset Date Last Indicated Resolved Time Norovirus 05/08/2024 05/08/2024 documented as of this encounter Care Teams Braker Passenger Train Relationship Specialty Start Date End Date Ayan Clayton MD [address] [place] [address] PCP - General Internal Medicine 07/11/24 documented as of this encounter
--- OUTSIDE RECORDS SUMMARY | 2024-08-13 09:15 | XMS_ITS | Encounter Summary ---
Author Organization [facility] Address [address] [place] [address] Care Team Providers Care Tap Out Operator Name Role Phone Aayn Clayton MD Primary Care Provider [phone] Encounter Details Date Type Department Care Team (Late Contact Info) Description 05/06/[address] [facility] - Main Lab [address] [facility] [place] [address] Niels Retana MD [address] [place] [address] [address] [place], [address] Other united [place] marshal (current) drug therapy Social History Tobacco Use [...] AM EDT Appointment Radiology Department - [address] [address] 12/05/2024 3:45 PM EDT Office Visit Nephrology - [place] 444 [place] [address] Vega Navarro MD [address] [facility] 204 [place] [phone] 02/04/2025 9:00 AM EST Office Visit Bariatric Surgery - [place] 175 [facility] 120 [place] [phone] Torrey Moreno MD 175 [facility] 120 [place] [address] 06/12/2025 9:20 AM EDT Office Visit Pulmonolgy - [place] 175 [facility] 200 [place] [phone] Jil Freeman NP 175 [facility] 200 [place] [address] documented as of this encounter Procedures Procedure Name Priority Date/Time Associated Diagnosis Comments COMPLETE BLOOD COUNT Routine 05/06/2024 6:41 AM EST Other united states marshal (current) drug therapy COMPREHENSIVE METABOLIC PANEL Routine 05/06/2024 6:41 AM EST Other fdc (current) drug therapy documented in this encounter Results * (ABNORMAL) Comprehensive metabolic panel (05/06/2024 6:41 AM EST) Sodium 141 133 - 145 mmol/L LAB CHEMISTRY METHOD 05/06/2024 2:03 PM EST [facility] Potassium 3.6 3.5 - 5.5 [...] Final Resul t [facility] [address] [place] [address], * (ABNORMAL) Complete blood count (05/06/2024 6:41 [...] Final Resul t [facility] [address] [place] [address], documented in this encounter Visit Diagnoses Diagnosis Other united [place] marshal (current) drug therapy Encounter for screening mammogram for breast cancer documented in this encounter Additional Health Concerns Infection Onset Date Last Indicated Resolved Time Norovirus 05/08/2024 05/08/2024 documented as of this encounter Care Teams Tap Out Operator Relationship Specialty Start Date End Date Ayan Clayton MD [address] [place] [address] PCP - General Internal Medicine 07/11/24 documented as of this encounter
--- OUTSIDE RECORDS SUMMARY | 2024-08-13 09:15 | XMS_ITS ---
Author Organization [facility] Address [address] [address] Care Team Providers Care Wood Grainer Name Role Phone Ayan Clayton Primary Care Provider SKYLAR Perez [phone] REASON FOR VISIT 3 month follow up Encounters Encounter Location Date Provider Diagnosis [facility] [address] [address] 05/05/2023 SKYLAR HANNA Plan Of Treatment No Information Progress Notes * LUISYanetDOB:1955 (68 yo F)Acc No.[id number]:05/05/2023 Progress Note Patient:?LUIS Yanet Provider:?Skylar Hanna DPM :1955???Age:67 Y???Sex:Female D ate:05/05/2023 Address:Counts include 234 beds at the [facility] [address] [id number] Pcp:Ayan Clayton Subjective: * Chief Complaints: * ???1. 3 month follow up. * Medical History:? Objective: * Vitals:? Assessment: Plan: * Treatment: * Billing Information: * Visit Code:? * Procedure Codes:? * Electronic signature of RHIANNON HANNA D.P.M on 08/13/2024 at 09:14 AM EDT Sign off status: Pending * Provider:Shirley Hanna DPM Date:? 05/05/2023 Generated for Printi ng/Faxing/eTransmitting on:?08/13/2024 09:14 AM EDT
--- OUTSIDE RECORDS SUMMARY | 2024-08-13 09:15 | XMS_ITS ---
[...] deficiency, s/p hip arthroplasty is here for [facility] hospital discharge for hypotension with abdominal pain, [...] deficiency, s/p hip arthroplasty is here for [facility] hospital discharge for hypotension with abdominal pain, [...] deficiency, s/p hip arthroplasty is here for [facility] hospital discharge for hypotension with abdominal pain, [...] deficiency, s/p hip arthroplasty is here for [facility] hospital discharge for hypotension with abdominal pain, [...] Test Test Name Order Date CBC/Differential (No Platelet)-[id number] Albumin/Creatinine Ratio,Urine-[id number] Lipid Panel-[id number] 06/05/2024 Lipid Panel-[id number] 10/11/2023 Comp. Metabolic Panel ([id number] 2024 Next Appt Details Provider Name:LENNIE ALFARO , 12/20/2024 10:00:00 AM, [address] [place] [address], [phone], Insurance Providers Payer Name Payer Address Payer Phone Subscriber Number Group Number Insured Name Patient Relationship to Insured Coverage Start Date Coverage End Date [facility] [address] [place] [id number] FernandoYanet brownlee Self - patient is the insured 2 [facility] for life [address] [place] [address] [id number] FernandoYanet Self - patient is the insured 2 Medical (General) History Medical History History ICD Code insulin-dependent diabetes mellitus type II, sees Dr. Kendall at [facility] constipation osteoarthritis asthma fibromyalgia Chronic kidney disease and sees nephrolo gy DDD and had seen Pain mgm in [facility] and marlen k injection LLE - DVT and will see Healthcare Account Manager at [facility] Surgical History Surgery Date(Month/Year) s/p gastric sleeve by Dr. Moreno 10/2018 cholecystectomy back surgery x2, Dr. Garcia and elena andrew doctor in [place] 2019 right carpal tunnel surgery pancreatitis 2023 RHT surgery 05/21
--- OUTSIDE RECORDS SUMMARY | 2024-08-13 09:15 | XMS_ITS | Patient Health Record ---
Author Organization [facility] Address [address] [facility] 102 [facility] [place] [address] Care Team Providers Care Senior Ux Designer Name Role Phone Ayan Clayton Primary Care [...] Problem Status W/U Status Risk Notes Problem 53719016 Other chronic pain (G89.29) Active confirmed Problem 294338460 Other hammer toe(s) (acquired), right foot (M20.41) Active confirmed Problem 77018206 Other hammer toe(s) (acquired), left foot (M20.42) Active confirmed Problem 49991268 Type 2 diabetes mellitus with diabetic polyneuropathy , without long-term current use of insulin (E11.42) Active confirmed Problem [id number] Arthritis of ankle, right (M19.071) Active confirmed Problem 827285835 Ankle arthritis (M19.079) Active confirmed Problem [id number] Arthritis of ankle, left (M19.072) Active confirmed [...]
== END 2024-08-13 09:37 | disposition home or self-care (01) ==
LOC: HO.HVS 08:52
PROVIDERS: PCP Hospitalist; Visit Provider Surgery Vascular Surgery
DX: I82.502 Chronic embolism and thrombosis of unspecified deep veins of left lower extremity (principal)
CPT/HCPCS: 99214

== ENCOUNTER → 2024-08-13 08:52 | Outpatient (BNVA) | payer OTHER, SELFPAY | PROVIDERS: PCP Hospitalist; Visit Provider Surgery Vascular Surgery | DX: I82.502 Chronic embolism and thrombosis of unspecified deep veins of left lower extremity (principal) | CPT/HCPCS: 99212 ==

== ENCOUNTER 2024-08-21 07:12 | Day surgery (SDC) | payer OTHER, SELFPAY ==
--- OUTSIDE RECORDS SUMMARY | 2024-08-13 13:26 | XMS_ITS | Encounter Summary ---
Author Organization [facility] Address [address] [place] [address] Care Team Providers Care Qual Research Manager Name Role Phone Ayan Clayton MD Primary Care Provider [phone] Reason for Visit * Reason Comments E-prescribe Rx Request Encounter Details Date Type Department Care Team Description 02/15/2022 Refill Adult Medicine [facility] [address] [place], [place] [phone] Ayan Clayton MD [address] [place] [address] [phone] E-prescribe Rx Request Social History Tobacco Use [...] / Plan: [place] / Product Type: MEDICARE [id number] documented in this encounter Plan of Treatment Not on file documented as of this encounter Visit Diagnoses Not on filedocumented in this encounter Care Teams Qual Research Manager Relationship Specialty Start Date End Date Ayan Clayton MD [address] [place] [address] PCP - General Internal Medicine 09/24/19 documented as of this encounter
--- OUTSIDE RECORDS SUMMARY | 2024-08-13 13:26 | XMS_ITS | Encounter Summary ---
Author Organization [facility] Address [address] [place] [address] Care Team Providers Care Gas Line Servicer Name Role Phone Daniel Mota MD Primary Care Provider Unavail able Ayan Clayton MD Primary Care Provider [phone] Encounter Details Date Type Department Care Team Description 11/09/2018 Hospital Medical Records [address] [place] [address] Torrey Moreno MD [address] [place] [address] [address] [place] [address] Social History Tobacco Use Types Packs/Day Years [...] filedocumented in this encounter Care Teams Gas Line Servicer Relationship Specialty Start Date End Date Daniel Mota MD PCP - General Internal Medicine 10/20/16 09/23/19 Ayan Clayton MD [address] [place], [place] [phone] PCP - General Internal Medicine 09/24/19 documented as of this encounter
--- OUTSIDE RECORDS SUMMARY | 2024-08-13 13:26 | XMS_ITS | Encounter Summary ---
Author Organization [facility] Address [address] [place] [address] Care Team Providers Care Supervisor Fusing Room Name Role Phone Daniel Mota MD Primary Care Provider Unavail Victor Manuel Yu MD Primary Care Provider Unava ilable Daniel Mota MD Primary Care Provider Unavail Ayan Pulliam MD Primary Care Provider [phone] Victor Manuel Gonzales MD Primary Care Provider Unava ilmaximino Encounter Details Date Type Department Care Team Description 03/13/2006 [facility] Medical Records [address] [place] [address] Hugo Palacios MD Social History Tobacco Use [...] filedocumented in this encounter Care Teams Supervisor Fusing Room Relationship Specialty Start Date End Date Daniel Mota MD PCP - General 07/27/1994 12/22/15 Victor Manuel Gonzales MD PCP - General Internal Medicine 07/22/16 10/19/16 Daniel Mota MD PCP - General Internal Medicine 10/20/16 09/23/19 Ayan Clayton MD [address] [place] [address] PCP - General Internal Medicine 09/24/19 Victor Manuel Gonzales MD PCP - General 12/23/15 07/21/16 documented as of this encounter
--- OUTSIDE RECORDS SUMMARY | 2024-08-13 13:26 | XMS_ITS | Encounter Summary ---
Author Organization [facility] Address [address] [place] [address] Care Team Providers Care Scanning Supervisor Name Role Phone Ayan Clayton MD Primary Care Provider [phone] Reason for Visit * Reason Comments E-prescribe Rx Request Encounter Details Date Type Department Care Team Description 10/22/2021 Refill Adult Medicine [facility] [address] [place] [address] Carmina Benavidez PA-C E-prescribe Rx Request Social [...] on filedocumented in this encounter Care Teams Scanning Supervisor Relationship Specialty Start Date End Date Ayan Clayton MD [address] [place] [address] PCP - General Internal Medicine 09/24/19 documented as of this encounter
--- OUTSIDE RECORDS SUMMARY | 2024-08-13 13:26 | XMS_ITS | Encounter Summary ---
Author Organization [facility] Address [address] [place] [address] Care Team Providers Care Gun Stocker Name Role Phone Ayan Clayton MD Primary Care Provider Reason for Visit * Reason Comments E-prescribe Rx Request Encounter Details Date Type Department Care Team Description 09/13/2021 Refill Endocrinology - [place] [address] [place] [address] Juan Alberto Kendall MD [address] [place], [place] [phone] E-prescribe Rx Request Social History Tobacco Use [...] uncontrolled documented in this encounter Care Teams Gun Stocker Relationship Specialty Start Date End Date Ayan Clayton MD [address] [place] [address] PCP - General Internal Medicine 09/24/19 documented as of this encounter
--- OUTSIDE RECORDS SUMMARY | 2024-08-13 13:26 | XMS_ITS | Encounter Summary ---
Author Organization [facility] Address [address] [place] [address] Care Team Providers Care Block Sorter Name Role Phone Ayan Clayton MD Primary Care Provider [phone] Reason for Visit * Reason Comments E-prescribe Rx Request Encounter Details Date Type Department Care Team Description 11/14/2021 Refill General Surgery - [place] 175 [facility] [address] [place] [address] Torrey Moreno MD [address] [place] [address] [address] [place] [address] E-prescribe Rx Request Social History Tobacco Use [...] deficiency documented in this encounter Care Teams Block Sorter Relationship Specialty Start Date End Date Ayan Clayton MD [address] [place] [address] PCP - General Internal Medicine 09/24/19 documented as of this encounter
--- OUTSIDE RECORDS SUMMARY | 2024-08-13 13:26 | XMS_ITS | Encounter Summary ---
Author Organization [facility] Address [address] [place] [address] Care Team Providers Care Validation Technician Name Role Phone Daniel Mota MD Primary Care Provider [facility] Ayan Pulliam MD Primary Care Provider [phone] Encounter Details Date Type Department Care Team Description 10/17/2018 Orders Only Medical Records [address] [place] [address] Torrey Moreno MD [address] [place] [address] [address] [place] [address] Social History Tobacco Use Types Packs/Day Years [...] filedocumented in this encounter Care Teams Validation Technician Relationship Specialty Start Date End Date Daniel Mota MD PCP - General Internal Medicine 10/20/16 09/23/19 Ayan Clayton MD [address] [place] [address] PCP - General Internal Medicine 09/24/19 documented as of this encounter
--- OUTSIDE RECORDS SUMMARY | 2024-08-13 13:26 | XMS_ITS | Encounter Summary ---
Author Organization [facility] Address [address] [place] [address] Care Team Providers Care Oiler Helper Name Role Phone Ayan Clayton MD Primary Care Provider [phone] Reason for Visit * Reason Onset Date Comments APPOINTMENT 02/14/2022 Encounter Details Date Type Department Care Team Description 02/14/2022 Telephone Nephrology - [place] [address] [place], [place] [phone] Vega Navarro MD [address] [place], [place] [phone] APPOINTMENT Social History Tobacco Use Types Packs/Day [...] on filedocumented in this encounter Care Teams Oiler Helper Relationship Specialty Start Date End Date Ayan Clayton MD [address] [place] [address] PCP - General Internal Medicine 09/24/19 documented as of this encounter
--- OUTSIDE RECORDS SUMMARY | 2024-08-13 13:26 | XMS_ITS | Encounter Summary ---
Author Organization [facility] Address [address] [place] [address] Care Team Providers Care Commercial Attorney Name Role Phone Ayan Clayton MD Primary Care Provider [phone] Reason for Visit * Reason Comments E-prescribe Rx Request Encounter Details Date Type Department Care Team Description 11/16/2021 Refill Adult Medicine [facility] [address] [place], [place] [phone] Ayan Clayton MD [address] [place] [address] [phone] E-prescribe Rx Request Social History Tobacco Use [...] insurance carrier is: [place] / Plan[place] / Product Type: MEDICARE [id number] documented in this encounter Plan of Treatment Not on file documented as of this encounter Visit Diagnoses Not on filedocumented in this encounter Care Teams Commercial Attorney Relationship Specialty Start Date End Date Ayan Clayton MD [address] [place] [address] PCP - General Internal Medicine 09/24/19 documented as of this encounter
--- OUTSIDE RECORDS SUMMARY | 2024-08-13 13:27 | XMS_ITS | Encounter Summary ---
Author Organization [facility] Address [address] [place] [address] Care Team Providers Care Parts Person Name Role Phone Daniel Mota MD Primary Care Provider [facility] Ayan Pulliam MD Primary Care Provider [phone] Encounter Details Date Type Department Care Team Description 09/04/2018 Telephone Adult Medicine [facility] [address] [place] [address] Daniel Mota MD Social History Tobacco Use [...] couple of weeks.. When she receive the Harbor Paymentse pro she is going to call me for appt with Dr. Mota.. documented in this encounter Plan of Treatment Not on file documented as of this encounter Visit Diagnoses Not on filedocumented in this encounter Care Teams Parts Person Relationship Specialty Start Date End Date Daniel Mota MD PCP - General Internal Medicine 10/20/16 09/23/19 Ayan Clayton MD [address] [place] [address] PCP - General Internal Medicine 09/24/19 documented as of this encounter
--- OUTSIDE RECORDS SUMMARY | 2024-08-13 13:27 | XMS_ITS | Encounter Summary ---
Author Organization [facility] Address [address] [place] [address] Care Team Providers Care Electronics Research Engineer Name Role Phone Ayan Clayton MD Primary Care Provider [phone] Encounter Details Date Type Department Care Team Description 06/19/2023 Orders Only Medical Records [address] [place] [address] Bird Nielson Np Social History Tobacco Use [...] on filedocumented in this encounter Care Teams Electronics Research Engineer Relationship Specialty Start Date End Date Ayan Clayton MD [address] [place], [place] [phone] PCP - General Internal Medicine 09/24/19 documented as of this encounter
--- OUTSIDE RECORDS SUMMARY | 2024-08-13 13:27 | XMS_ITS | Encounter Summary ---
Author Organization [facility] Address [address] [place] [address] Care Team Providers Care Pig Machine Crane Operator Name Role Phone Daniel Mota MD Primary Care Provider Unavail Victor Manuel Yu MD Primary Care Provider Unava ilable Daniel Mota MD Primary Care Provider Unavail Ayan Pulliam MD Primary Care Provider [phone] Victor Manuel Gonzales MD Primary Care Provider Unava ilable Reason for Visit * Reason Onset Date Comments DME Request 08/23/2013 diabetic supplys Encounter Details Date Type Department Care Team Description 08/23/2013 Telephone Adult Medicine [facility] [address] [place] [address] Daniel Mota MD DME Request (diabetic supplys [...] fax # Needed Reason/Diagnosis: diabeties When completed: [phone] documented in this encounter Plan of Treatment Not on file documented as of this encounter Visit Diagnoses Not on filedocumented in this encounter Care Teams Pig Machine Crane Operator Relationship Specialty Start Date End Date Daniel Mota MD PCP - General 07/27/1994 12/22/15 Victor Manuel Gonzales MD PCP - General Internal Medicine 07/22/16 10/19/16 Daniel Mota MD PCP - General Internal Medicine 10/20/16 09/23/19 Ayan Clayton MD [address] [place] [address] PCP - General Internal Medicine 09/24/19 Victor Manuel Gonzales MD PCP - General 12/23/15 07/21/16 documented as of this encounter
--- OUTSIDE RECORDS SUMMARY | 2024-08-13 13:27 | XMS_ITS | Encounter Summary ---
Author Organization [facility] Address [address] [place] [address] Care Team Providers Care Director Merit System Name Role Phone Daniel Mota MD Primary Care Provider Unavail able Ayan Clayton MD Primary Care Provider [phone] Encounter Details Date Type Department Care Team Description 11/20/2018 Hospital Medical Records [address] [place] [address] Afsaneh Rolon Social History Tobacco Use Types Packs/Day Years [...] filedocumented in this encounter Care Teams Director Merit System Relationship Specialty Start Date End Date Daniel Mota MD PCP - General Internal Medicine 10/20/16 09/23/19 Ayan Clayton MD [address] [place] [address] PCP - General Internal Medicine 09/24/19 documented as of this encounter
--- OUTSIDE RECORDS SUMMARY | 2024-08-13 13:27 | XMS_ITS | Encounter Summary ---
Author Organization [facility] Address [address] [place] [address] Care Team Providers Care Skydiving Instructor Name Role Phone Ayan Clayton MD Primary Care Provider [phone] Encounter Details Date Type Department Care Team Description 04/21/2022 Chronometer Assembler Report Medical Records [address] [place] [address] Abstract, Provider Social History Tobacco Use Types [...] on filedocumented in this encounter Care Teams Skydiving Instructor Relationship Specialty Start Date End Date Ayan Clayton MD [address] [place], [place] [phone] PCP - General Internal Medicine 09/24/19 documented as of this encounter
--- OUTSIDE RECORDS SUMMARY | 2024-08-13 13:27 | XMS_ITS | Encounter Summary ---
Author Organization [facility] Address [address] [place] [address] Care Team Providers Care Applications Development Analyst Name Role Phone Daniel Mota MD Primary Care Provider [facility] Ayan Pulliam MD Primary Care Provider [phone] Reason for Visit * Reason Onset Date Comments hospital follow up 11/23/2018 Encounter Details Date Type Department Care Team Description 11/23/2018 Telephone Adult Medicine [address] [address] Daniel Mota MD hospital follow up Social [...] Spoke to pt. She was D/c from [facility] on 11/22/ She will be receiving VNA, , appt being set up , appt booked, for 12/03/2018 at 10:30 am Pt agreed to time and date * Telephone Encounter - Skylar Bardalesmargie - 11/23/2018 10:16 AM EDT Hospital follow up appointment needed Hospital patient was treated at: [facility] Was this only an ER visit or [...] on filedocumented in this encounter Care Teams Applications Development Analyst Relationship Specialty Start Date End Date Daniel Mota MD PCP - General Internal Medicine 10/20/16 09/23/19 Ayan Clayton MD [address] [place] [address] PCP - General Internal Medicine 09/24/19 documented as of this encounter
--- OUTSIDE RECORDS SUMMARY | 2024-08-13 13:27 | XMS_ITS | Encounter Summary ---
Author Organization [facility] Address [address] [place] [address] Care Team Providers Care Production Line Technician Name Role Phone Daniel Mota MD Primary Care Provider [facility] Ayan Pulliam MD Primary Care Provider [phone] Encounter Details Date Type Department Care Team Description 02/15/2019 Orders Only General Surgery - [place] 175 [facility] [address] [place] [address] Torrey Moreno MD [address] [place] [address] [address] [place], [place] [phone] Other complications of other bariatric procedure Social [...] procedure documented in this encounter Care Teams Production Line Technician Relationship Specialty Start Date End Date Daniel Mota MD PCP - General Internal Medicine 10/20/16 09/23/19 Ayan Clayton MD [address] [place] [address] PCP - General Internal Medicine 09/24/19 documented as of this encounter
--- OUTSIDE RECORDS SUMMARY | 2024-08-13 13:27 | XMS_ITS | Encounter Summary ---
Author Organization [facility] Address [address] [place] [address] Care Team Providers Care Administrative Manager Name Role Phone Ayan Clayton MD Primary Care Provider [phone] Reason for Visit * Reason Onset Date Comments Faxed Order 06/26/2023 [facility] Encounter Details Date Type Department Care Team Description 06/26/2023 Telephone Adult Medicine [facility] [address] [place], [place] [phone] Ayan Clayton MD [address] [place] [address] [phone] Faxed Order ([facility]) Social History Tobacco Use [...] Howard Soria - 06/26/2023 12:17 PM EDT MERCHANDISE EXECUTION LEADER order received and placed in providers bin documented in this encounter Plan of Treatment Not on file documented as of this encounter Visit Diagnoses Not on filedocumented in this encounter Care Teams Administrative Manager Relationship Specialty Start Date End Date Ayan Clayton MD [address] [place] [address] PCP - General Internal Medicine 09/24/19 documented as of this encounter
--- OUTSIDE RECORDS SUMMARY | 2024-08-13 13:27 | XMS_ITS | Encounter Summary ---
Author Organization [facility] Address [address] [place] [address] Care Team Providers Care Financial Legal Assistant Name Role Phone Ayan Clayton MD Primary Care Provider [phone] Encounter Details Date Type Department Care Team Description 06/13/2023 Hospital Medical Records [address] [place] [address] Vega Garcia Social History Tobacco Use Types [...] on filedocumented in this encounter Care Teams Financial Legal Assistant Relationship Specialty Start Date End Date Ayan Clayton MD [address] [place] [address] [phone] PCP - General Internal Medicine 09/24/19 documented as of this encounter
--- OUTSIDE RECORDS SUMMARY | 2024-08-13 13:27 | XMS_ITS | Encounter Summary ---
Author Organization [facility] Address [address] [place] [address] Care Team Providers Care Credit Control Officer Name Role Phone Daniel Mota MD Primary Care Provider Unavail able Ayan Clayton MD Primary Care Provider [phone] Encounter Details Date Type Department Care Team Description 11/19/2018 Hospital Medical Records [address] [place] [address] Xuan Jean Baptiste MD Social History Tobacco [...] on filedocumented in this encounter Care Teams Credit Control Officer Relationship Specialty Start Date End Date Daniel Mota MD PCP - General Internal Medicine 10/20/16 09/23/19 Ayan Clayton MD [address] [place], [place] [phone] PCP - General Internal Medicine 09/24/19 documented as of this encounter
--- OUTSIDE RECORDS SUMMARY | 2024-08-13 13:27 | XMS_ITS | Encounter Summary ---
Author Organization [facility] Address [address] [place] [address] Care Team Providers Care Inventory Audit Clerk Name Role Phone Daniel Mota MD Primary Care Provider [facility] Ayan Pulliam MD Primary Care Provider [phone] Reason for Visit * Reason Onset Date Comments Faxed Order 12/14/2018 Encounter Details Date Type Department Care Team Description 12/14/2018 Telephone Adult Medicine [address] [address] Daniel Mota MD Faxed Order Social History [...] 10:26 AM EDT Faxed order received from [facility] Home, please sign date and return order to fax number [phone]. * Telephone Encounter - Rosa Latham - 12/14/2018 9:35 AM EDT Physician Order for Dr. Daniel Mota's signature documented in this encounter Plan of Treatment Not on file documented as of this encounter Visit Diagnoses Not on filedocumented in this encounter Care Teams Inventory Audit Clerk Relationship Specialty Start Date End Date Daniel Mota MD PCP - General Internal Medicine 10/20/16 09/23/19 Ayan Clayton MD [address] [place] [address] PCP - General Internal Medicine 09/24/19 documented as of this encounter
--- OUTSIDE RECORDS SUMMARY | 2024-08-13 13:27 | XMS_ITS | Encounter Summary ---
Author Organization [facility] Address [address] [place] [address] Care Team Providers Care Archeology Professor Name Role Phone Daniel Mota MD Primary Care Provider Unavail Victor Manuel Yu MD Primary Care Provider Unava ilable Daniel Mota MD Primary Care Provider Unavail able Ayan Clayton MD Primary Care Provider [phone] Victor Manuel Gonzales MD Primary Care Provider Unava ilable Reason for Referral * Specialist (Routine) - Authorized/Booked Specialty Diagnoses / Procedures Referred By Contact Referred To Contact INTERVENTIONAL RADIOLOGY Procedures REFERRAL TO INTERVENTIONAL RADIOLOGY Bharath Rico MD [address] [place] [address] Ext Interventional Rad Referral ID Status Reason Start Date Expiration Date V isits Requested Visits Authorized SEE REVIEW 11/06/12 Authorized/ Booked 11/27/2012 02/27/2013 1 1 * Specialist (Routine) - Authorized/Booked Specialty Diagnoses / Procedures Referred By Contact Referred To Contact INTERVENTIONAL RADIOLOGY Diagnoses Lymphadenopathy Procedures REFERRAL TO INTERVENTIONAL RADIOLOGY Bharath Rico MD [address] [place] [address] Ext Interventional Rad Referral ID Status Reason Start Date Expiration Date V isits Requested Visits Authorized SEE REVIEW 11/06/12 Authorized/ Booked 11/27/2012 02/27/2013 1 1 Encounter Details Date Type Department Care Team Description 11/27/2012 Orders Only General Surgery [address] [place] [address] Bharath Rico MD [address] [place] [address] Lymphadenopathy (Primary Dx) Social History Tobacco Use [...] nodes documented in this encounter Care Teams Archeology Professor Relationship Specialty Start Date End Date Daniel Mota MD PCP - General 07/27/1994 12/22/15 Victor Manuel Gonzales MD PCP - General Internal Medicine 07/22/16 10/19/16 Daniel Mota MD PCP - General Internal Medicine 10/20/16 09/23/19 Ayan Clayton MD [address] [place] [address] PCP - General Internal Medicine 09/24/19 Victor Manuel Gonzales MD PCP - General 12/23/15 07/21/16 documented as of this encounter
--- OUTSIDE RECORDS SUMMARY | 2024-08-13 13:27 | XMS_ITS | Encounter Summary ---
Author Organization [facility] Address [address] [place] [address] Care Team Providers Care Pin Drafter Operator Name Role Phone Daniel Mota MD Primary Care Provider Unavail Victor Manuel Yu MD Primary Care Provider Unava ilable Daniel Mota MD Primary Care Provider Unavail Ayan Pulliam MD Primary Care Provider [phone] Victor Manuel Gonzales MD Primary Care Provider Unava ilmaximino Encounter Details Date Type Department Care Team Description 02/12/2013 Pt. Non Urgent Medical Question General Surgery [address] [place] [address] [phone] Bharath Rico MD [address] [place] [address] [phone] Social History Tobacco Use Types Packs/Day Years [...] on filedocumented in this encounter Care Teams Pin Drafter Operator Relationship Specialty Start Date End Date Daniel Mota MD PCP - General 07/27/1994 12/22/15 Victor Manuel Gonzales MD PCP - General Internal Medicine 07/22/16 10/19/16 Daniel Mota MD PCP - General Internal Medicine 10/20/16 09/23/19 Ayan Clayton MD [address] [place] [address] PCP - General Internal Medicine 09/24/19 Victor Manuel Gonzales MD PCP - General 12/23/15 07/21/16 documented as of this encounter
--- OUTSIDE RECORDS SUMMARY | 2024-08-13 13:27 | XMS_ITS | Encounter Summary ---
Author Organization [facility] Address [address] [place] [address] Care Team Providers Care Terrazzo Finisher Name Role Phone Daniel Mota MD Primary Care Provider Unavail able Ayan Clayton MD Primary Care Provider [phone] Encounter Details Date Type Department Care Team Description 11/20/2018 Hospital Medical Records [address] Social History Tobacco Use Types Packs/Day [...] on filedocumented in this encounter Care Teams Terrazzo Finisher Relationship Specialty Start Date End Date Daniel Mota MD PCP - General Internal Medicine 10/20/16 09/23/19 Ayan Clayton MD [address] [place] [address] PCP - General Internal Medicine 09/24/19 documented as of this encounter
--- OUTSIDE RECORDS SUMMARY | 2024-08-13 13:27 | XMS_ITS | Encounter Summary ---
Author Organization [facility] Address [address] [place] [address] Care Team Providers Care Manager Medical Name Role Phone Daniel Mota MD Primary Care Provider Unavail able Ayan Clayton MD Primary Care Provider [phone] Encounter Details Date Type Department Care Team Description 11/22/2018 Hospital Medical Records [address] [place] [address] Bashir Booth Social History Tobacco Use Types [...] filedocumented in this encounter Care Teams Manager Medical Relationship Specialty Start Date End Date Daniel Mota MD PCP - General Internal Medicine 10/20/16 09/23/19 Ayan Clayton MD [address] [place] [address] PCP - General Internal Medicine 09/24/19 documented as of this encounter
--- OUTSIDE RECORDS SUMMARY | 2024-08-13 13:27 | XMS_ITS | Encounter Summary ---
Author Organization [facility] Address [address] [place] [address] Care Team Providers Care Health Education Director Name Role Phone Ayan Clayton MD Primary Care Provider [phone] Encounter Details Date Type Department Care Team Description 03/23/2022 Sustainable Systems Analyst Report Medical Records [address] [place] [address] [facility] [address] [place] [address] Social History Tobacco Use Types Packs/Day Years [...] on filedocumented in this encounter Care Teams Health Education Director Relationship Specialty Start Date End Date Ayan Clayton MD [address] [place], [place] [phone] PCP - General Internal Medicine 09/24/19 documented as of this encounter
--- OUTSIDE RECORDS SUMMARY | 2024-08-13 13:27 | XMS_ITS | Encounter Summary ---
Author Organization [facility] Address [address] [place] [address] Care Team Providers Care Soils Analyst Name Role Phone Daniel Mota MD Primary Care Provider Ayan Rubalcava MD Primary Care Provider [phone] Encounter Details Date Type Department Care Team Description 05/31/2018 Telephone General Surgery - [place] [address] [facility] [address] [place] [address] Torrey Moreno MD [address] [place] [address] [address] [place], [place] [phone] Social History Tobacco Use Types Packs/Day Years [...] on filedocumented in this encounter Care Teams Soils Analyst Relationship Specialty Start Date End Date Daniel Mota MD PCP - General Internal Medicine 10/20/16 09/23/19 Ayan Clayton MD [address] [place] [address] PCP - General Internal Medicine 09/24/19 documented as of this encounter
--- OUTSIDE RECORDS SUMMARY | 2024-08-13 13:27 | XMS_ITS | Encounter Summary ---
Author Organization [facility] Address [address] [place] [address] Care Team Providers Care Bridge Welder Name Role Phone Ayan Clayton MD Primary Care Provider [phone] Reason for Visit * Reason Onset Date Comments Faxed Order 03/17/2022 [facility] Encounter Details Date Type Department Care Team Description 03/17/2022 Telephone Adult Medicine [facility] [address] [place] [address] [phone] Ayan Clayton MD [address] [place] [address] [phone] Faxed Order ([facility] ) Social History Tobacco Use Types [...] on filedocumented in this encounter Care Teams Bridge Welder Relationship Specialty Start Date End Date Ayan Clayton MD [address] [place] [address] PCP - General Internal Medicine 09/24/19 documented as of this encounter
--- OUTSIDE RECORDS SUMMARY | 2024-08-13 13:27 | XMS_ITS | Encounter Summary ---
Author Organization [facility] Address [address] [place] [address] Care Team Providers Care Drop Wire Stringer Name Role Phone Ayan Clayton MD Primary Care Provider [phone] Encounter Details Date Type Department Care Team Description 06/18/2023 Hospital Medical Records [address] [place] [address] Social History Tobacco Use Types Packs/Day Years [...] on filedocumented in this encounter Care Teams Drop Wire Stringer Relationship Specialty Start Date End Date Ayan Clayton MD [address] [place] [address] [phone] PCP - General Internal Medicine 09/24/19 documented as of this encounter
--- OUTSIDE RECORDS SUMMARY | 2024-08-13 13:27 | XMS_ITS | Encounter Summary ---
Author Organization [facility] Address [address] [place] [address] Care Team Providers Care Emergency Department Manager Name Role Phone Daniel Mota MD Primary Care Provider Ayan Rubalcava MD Primary Care Provider [phone] Reason for Visit * Reason Onset Date Comments Provider Call Back 12/04/2018 Encounter Details Date Type Department Care Team Description 12/04/2018 Telephone Adult Medicine [address] [address] Daniel Mota MD Provider Call Back Social [...] on filedocumented in this encounter Care Teams Emergency Department Manager Relationship Specialty Start Date End Date Daniel Mota MD PCP - General Internal Medicine 10/20/16 09/23/19 Ayan Clayton MD [address] [place] [address] PCP - General Internal Medicine 09/24/19 documented as of this encounter
--- OUTSIDE RECORDS SUMMARY | 2024-08-13 13:27 | XMS_ITS | Encounter Summary ---
Author Organization [facility] Address [address] [place] [address] Care Team Providers Care Consumer Science Teacher Name Role Phone Daniel Mota MD Primary Care Provider [facility] Ayan Clayton MD Primary Care Provider [phone] Reason for Visit * Reason Comments E-prescribe Rx Request Encounter Details Date Type Department Care Team Description 01/18/[facility] - [place] [address] [facility] [address] [place] [address] Torrey Moreno MD [address] [place] [address] [address] [place] [address] E-prescribe Rx Request Social History Tobacco Use [...] on filedocumented in this encounter Care Teams Consumer Science Teacher Relationship Specialty Start Date End Date Daniel Mota MD PCP - General Internal Medicine 10/20/16 09/23/19 Ayan Clayton MD [address] [place] [address] PCP - General Internal Medicine 09/24/19 documented as of this encounter
--- OUTSIDE RECORDS SUMMARY | 2024-08-13 13:27 | XMS_ITS | Encounter Summary ---
Author Organization [facility] Address [address] [place] [address] Care Team Providers Care Weigher Bulker Name Role Phone Daniel Mota MD Primary Care Provider Unavail Victor Manuel Yu MD Primary Care Provider Unava ilable Daniel Mota MD Primary Care Provider Unavail Ayan Pulliam MD Primary Care Provider [phone] Victor Manuel Gonzales MD Primary Care Provider Unava ilmaximino Encounter Details Date Type Department Care Team Description 07/22/2013 Refill Adult Medicine [address] [address] Daniel Mota MD Social History Tobacco Use [...] on filedocumented in this encounter Care Teams Weigher Bulker Relationship Specialty Start Date End Date Daniel Mota MD PCP - General 07/27/1994 12/22/15 Victor Manuel Gonzales MD PCP - General Internal Medicine 07/22/16 10/19/16 Daniel Mota MD PCP - General Internal Medicine 10/20/16 09/23/19 Ayan Clayton MD [address] [place] [address] PCP - General Internal Medicine 09/24/19 Victor Manuel Gonzales MD PCP - General 12/23/15 07/21/16 documented as of this encounter
--- OUTSIDE RECORDS SUMMARY | 2024-08-13 13:27 | XMS_ITS | Encounter Summary ---
Author Organization [facility] Address [address] [place] [address] Care Team Providers Care Ammunition Components Inspector Name Role Phone Ayan Clayton MD Primary Care Provider [phone] Encounter Details Date Type Department Care Team Description 06/11/2023 Ballet Company Member Report Medical Records [address] [place] [address] Vega Garcia Social History Tobacco Use Types [...] on filedocumented in this encounter Care Teams Ammunition Components Inspector Relationship Specialty Start Date End Date Ayan Clayton MD [address] [place] [address] PCP - General Internal Medicine 09/24/19 documented as of this encounter
--- OUTSIDE RECORDS SUMMARY | 2024-08-13 13:27 | XMS_ITS | Encounter Summary ---
Author Organization [facility] Address [address] [place] [address] Care Team Providers Care Long Wall Mining Machine Tender Name Role Phone Daniel Mota MD Primary Care Provider Unavail Victor Manuel Yu MD Primary Care Provider Unava ilable Daniel Mota MD Primary Care Provider Unavail Ayan Pulliam MD Primary Care Provider [phone] Victor Manuel Gonzales MD Primary Care Provider Unava ilmaximino Encounter Details Date Type Department Care Team Description 06/25/2013 Solutions Sales Executive Report Medical Records [address] [place] [address] Swathi Eagle MD Social History Tobacco Use [...] on filedocumented in this encounter Care Teams Long Wall Mining Machine Tender Relationship Specialty Start Date End Date Daniel Mota MD PCP - General 07/27/1994 12/22/15 Victor Manuel Gonzales MD PCP - General Internal Medicine 07/22/16 10/19/16 Daniel Mota MD PCP - General Internal Medicine 10/20/16 09/23/19 Ayan Clayton MD [address] [place] [address] PCP - General Internal Medicine 09/24/19 Victor Manuel Gonzales MD PCP - General 12/23/15 07/21/16 documented as of this encounter
--- OUTSIDE RECORDS SUMMARY | 2024-08-13 13:27 | XMS_ITS | Encounter Summary ---
Author Organization [facility] Address [address] [place] [address] Care Team Providers Care Oleo Hasher And Renderer Name Role Phone Ayan Clayton MD Primary Care Provider [phone] Encounter Details Date Type Department Care Team Description 03/30/2022 Orders Only Adult Medicine [facility] [address] [place], [place] [phone] Jhoana Hernandez PA-C [address] [place] [address] [phone] Snoring; Chronic insomnia; Nocturnal hypoxemia Social History [...] Hypoxemia documented in this encounter Care Teams Oleo Hasher And Renderer Relationship Specialty Start Date End Date Ayan Clayton MD [address] [place] [address] PCP - General Internal Medicine 09/24/19 documented as of this encounter
--- OUTSIDE RECORDS SUMMARY | 2024-08-13 13:27 | XMS_ITS | Encounter Summary ---
Author Organization [facility] Address [address] [place] [address] Care Team Providers Care Sorting Machine Operator Name Role Phone Ayan Clayton MD Primary Care Provider [phone] Encounter Details Date Type Department Care Team Description 03/10/2022 Lumber Piler Report Medical Records [address] [place] [address] Rell Leavitt Social History Tobacco Use Types [...] on filedocumented in this encounter Care Teams Sorting Machine Operator Relationship Specialty Start Date End Date Ayan Clayton MD [address] [place], [place] [phone] PCP - General Internal Medicine 09/24/19 documented as of this encounter
--- OUTSIDE RECORDS SUMMARY | 2024-08-13 13:27 | XMS_ITS | Encounter Summary ---
Author Organization [facility] Address [address] [place] [address] Care Team Providers Care Equipment Mechanic Name Role Phone Ayan Clayton MD Primary Care Provider [phone] Encounter Details Date Type Department Care Team Description 04/19/2022 Gis Analyst Developer Report Medical Records [address] [place] [address] Skylar Hanna DPM Social History Tobacco Use [...] on filedocumented in this encounter Care Teams Equipment Mechanic Relationship Specialty Start Date End Date Ayan Clayton MD [address] [place] [address] PCP - General Internal Medicine 09/24/19 documented as of this encounter
--- OUTSIDE RECORDS SUMMARY | 2024-08-13 13:27 | XMS_ITS | Encounter Summary ---
Author Organization [facility] Address [address] [place] [address] Care Team Providers Care Rewinder Operator Helper Name Role Phone Ayan Clayton MD Primary Care Provider Encounter Details Date Type Department Care Team Description 05/01/2023 Legal Arbitrator Report Medical Records [address] [place] [address] Rell Leavitt Social History Tobacco Use Types [...] on filedocumented in this encounter Care Teams Rewinder Operator Helper Relationship Specialty Start Date End Date Ayan Clayton MD [address] [place], [place] [phone] PCP - General Internal Medicine 09/24/19 documented as of this encounter
--- OUTSIDE RECORDS SUMMARY | 2024-08-13 13:27 | XMS_ITS | Encounter Summary ---
Author Organization [facility] Address [address] [place] [address] Care Team Providers Care M1 Armor Crewman Name Role Phone Daniel Mota MD Primary Care Provider Ayan Rubalcava MD Primary Care Provider Encounter Details Date Type Department Care Team Description 06/11/2018 Orders Only General Surgery - [place] 175 [facility] [address] [place] [address] Torrey Moreno MD [address] [place] [address] [address] [place], [place] [phone] Morbid obesity with BMI of 50.0-59.9, adult [...] (HCC) documented in this encounter Care Teams M1 Armor Crewman Relationship Specialty Start Date End Date Daniel Mota MD PCP - General Internal Medicine 10/20/16 09/23/19 Ayan Clayton MD [address] [place] [address] PCP - General Internal Medicine 09/24/19 documented as of this encounter
--- OUTSIDE RECORDS SUMMARY | 2024-08-13 13:28 | XMS_ITS | Encounter Summary ---
Author Organization [facility] Address [address] [place] [address] Care Team Providers Care Orthodontist Small Business Owner Name Role Phone Ayan Clayton MD Primary Care Provider Reason for Visit * Reason Onset Date Comments DME Request 10/15/2019 [facility] Encounter Details Date Type Department Care Team Description 10/15/2019 Telephone Adult Medicine [facility] [address] [place] [address] [phone] Ayan Clayton MD [address] [place] [address] [phone] DME Request ([facility]) Social History Tobacco Use [...] - 10/23/2019 11:56 AM EDT Keyla from [employer] called in looking for an update would like a call back. Keyla direct line is [phone]. * Telephone Encounter - Whitley Wright - 10/15/2019 5:48 PM EDT [facility]. documented in this encounter Plan of Treatment Not on file documented as of this encounter Visit Diagnoses Not on filedocumented in this encounter Care Teams Orthodontist Small Business Owner Relationship Specialty Start Date End Date Ayan Clayton MD [address] [place] [address] PCP - General Internal Medicine 09/24/19 documented as of this encounter
--- OUTSIDE RECORDS SUMMARY | 2024-08-13 13:28 | XMS_ITS | Encounter Summary ---
Author Organization [facility] Address [address] [place] [address] Care Team Providers Care Blow Pit Operator Name Role Phone Daniel Mota MD Primary Care Provider Unavail Victor Manuel Yu MD Primary Care Provider Unava ilable Daniel Mota MD Primary Care Provider Unavail Ayan Pulliam MD Primary Care Provider [phone] Victor Manuel Gonzales MD Primary Care Provider Candida puri Encounter Details Date Type Department Care Team Description 01/26/2015 [facility] Medical Records [address] [place], [place] [phone] [place] [address] Social History Tobacco Use Types Packs/Day Years [...] on filedocumented in this encounter Care Teams Blow Pit Operator Relationship Specialty Start Date End Date Daniel Mota MD PCP - General 07/27/1994 12/22/15 Victor Manuel Gonzales MD PCP - General Internal Medicine 07/22/16 10/19/16 Daniel Mota MD PCP - General Internal Medicine 10/20/16 09/23/19 Ayan Clayton MD [address] [place] [address] PCP - General Internal Medicine 09/24/19 Victor Manuel Gonzales MD PCP - General 12/23/15 07/21/16 documented as of this encounter
--- OUTSIDE RECORDS SUMMARY | 2024-08-13 13:28 | XMS_ITS | Encounter Summary ---
Author Organization [facility] Address [address] [place] [address] Care Team Providers Care Mc Kay Machine Operator Name Role Phone Daniel Mota MD Primary Care Provider Unavail Victor Manuel Yu MD Primary Care Provider Unava ilable Daniel Mota MD Primary Care Provider Unavail Ayan Pulliam MD Primary Care Provider Victor Manuel Gonzales MD Primary Care Provider Unava ilmaximino Encounter Details Date Type Department Care Team Description 05/27/2008 [facility] Medical Records [address] [place] [address] Laurent Harrington MD Social History Tobacco Use [...] on filedocumented in this encounter Care Teams Mc Kay Machine Operator Relationship Specialty Start Date End Date Daniel Mota MD PCP - General 07/27/1994 12/22/15 Victor Manuel Gonzales MD PCP - General Internal Medicine 07/22/16 10/19/16 Daniel Mota MD PCP - General Internal Medicine 10/20/16 09/23/19 Ayan Clayton MD [address] [place] [address] PCP - General Internal Medicine 09/24/19 Victor Manuel Gonzales MD PCP - General 12/23/15 07/21/16 documented as of this encounter
--- OUTSIDE RECORDS SUMMARY | 2024-08-13 13:28 | XMS_ITS | Encounter Summary ---
Author Organization [facility] Address [address] [place] [address] Care Team Providers Care Workforce Planning Analyst Name Role Phone Ayan Clayton MD Primary Care Provider [phone] Reason for Visit * Reason Onset Date Comments Information Needed 10/10/2019 Prior Authorization 10/10/2019 Encounter Details Date Type Department Care Team Description 10/10/2019 Telephone Pulmonology - [place] [address] [facility] [address] [place] [address] Carlos Hurley MD [address] [facility] [address] [place] [address] Information Needed; Prior Authorization Social [...] on filedocumented in this encounter Care Teams Workforce Planning Analyst Relationship Specialty Start Date End Date Ayan Clayton MD [address] [place] [address] PCP - General Internal Medicine 09/24/19 documented as of this encounter
--- OUTSIDE RECORDS SUMMARY | 2024-08-13 13:28 | XMS_ITS | Encounter Summary ---
Author Organization [facility] Address [address] [place] [address] Care Team Providers Care Welding Pantograph Operator Name Role Phone Daniel Mota MD Primary Care Provider Unavail able Ayan Clayton MD Primary Care Provider [phone] Encounter Details Date Type Department Care Team Description 04/23/2019 Tank Car Cleaner Report Medical Records [address] [place] [address] Bharath Block PA-C Social History Tobacco Use [...] on filedocumented in this encounter Care Teams Welding Pantograph Operator Relationship Specialty Start Date End Date Daniel Mota MD PCP - General Internal Medicine 10/20/16 09/23/19 Ayan Clayton MD [address] [place], [place] [phone] PCP - General Internal Medicine 09/24/19 documented as of this encounter
--- OUTSIDE RECORDS SUMMARY | 2024-08-13 13:28 | XMS_ITS | Encounter Summary ---
Author Organization [facility] Address [address] [place] [address] Care Team Providers Care Product Responsibility Liaison Name Role Phone Ayan Clayton MD Primary Care Provider Reason for Visit * Reason Onset Date Comments Pre Op Visit 08/24/2023 Encounter Details Date Type Department Care Team Description 08/24/2023 Telephone Adult Medicine - [place] [address] [place] [address] Ayan Clayton MD [address] [place] [address] Pre Op Visit Social History Tobacco Use [...] Miscellaneous Notes * Telephone Encounter - Jil Fereman APRN - 08/24/2023 3:45 PM EDT Note [...] Elisabeth Del Angel Patient Services / Pre-Op Link Machine Operator Extension - [id number] documented in this encounter Plan of Treatment Not on file documented as of this encounter Visit Diagnoses Not on filedocumented in this encounter Care Teams Product Responsibility Liaison Relationship Specialty Start Date End Date Ayan Clayton MD [address] [place] [id number] PCP - General Internal Medicine 09/24/19 documented as of this encounter
--- OUTSIDE RECORDS SUMMARY | 2024-08-13 13:28 | XMS_ITS | Encounter Summary ---
Author Organization [facility] Address [address] [place] [address] Care Team Providers Care Rn Telephonic Name Role Phone Daniel Mota MD Primary Care Provider [facility] Ayan Pulliam MD Primary Care Provider [phone] Reason for Visit * Reason Onset Date Comments Prior Authorization 05/21/2019 Encounter Details Date Type Department Care Team Description 05/21/2019 Telephone Adult Medicine [address] [address] Daniel Mota MD Prior Authorization Social History [...] 10:33 AM EDT Spoke with Ashely romero [facility] who stated that p.a. For the jeronimo is through [facility]. Shestated that they faxed it over to them. Called and spoke with Eladio who stated that the jeronimo and its supplies were approved . Approved from 05/31/2019 until 05/30/2020 Authorization number # [id number] * Telephone Encounter - Susan Gutierrez M.A. [...] What Pharmacy did the fax come from: [facility] Pharmacy fax #: [phone] [employer] Information from fax: What Prescription Plan does the patient have? BIN/PCN if applicable: Cardholder ID: Person Code: Relationship Code: Help desk phone: [phone] documented in this encounter Plan of Treatment Not on file documented as of this encounter Visit Diagnoses Not on filedocumented in this encounter Care Teams Rn Telephonic Relationship Specialty Start Date End Date Daniel Mota MD PCP - General Internal Medicine 10/20/16 09/23/19 Ayan Clayton MD [address] [place] [id number] PCP - General Internal Medicine 09/24/19 documented as of this encounter
--- OUTSIDE RECORDS SUMMARY | 2024-08-13 13:28 | XMS_ITS | Encounter Summary ---
Author Organization [facility] Address [address] [place] [address] Care Team Providers Care Business Banking Relationship Manager Name Role Phone Ayan Clayton MD Primary Care Provider [phone] Reason for Visit * Reason Onset Date Comments Provider Call Back 03/18/2020 Encounter Details Date Type Department Care Team Description 03/18/2020 Telephone Adult Medicine [facility] [address] [place] [address] Ayan Clayton MD [address] [place] [address] Provider Call Back Social History Tobacco Use [...] encounter Miscellaneous Notes * Telephone Encounter - Moinca Owen M.A. - 04/01/2020 4:46 PM EST [...] callers name? Angie Callers relationship to patient? LIGHTER CAPTAIN If person calling is not the [...] filedocumented in this encounter Care Teams Business Banking Relationship Manager Relationship Specialty Start Date End Date Ayna Clayton MD [address] [place] [id number] PCP - General Internal Medicine 09/24/19 documented as of this encounter
--- OUTSIDE RECORDS SUMMARY | 2024-08-13 13:28 | XMS_ITS | Encounter Summary ---
Author Organization [facility] Address [address] [place] [address] Care Team Providers Care Administrative Specialist Name Role Phone Daniel Mota MD Primary Care Provider Unavail able Ayan Clayton MD Primary Care Provider [phone] Encounter Details Date Type Department Care Team Description 04/10/2019 Medical Record Librarians Teacher Report Medical Records [address] [place] [id number] Ta Garcia MD Social History Tobacco Use [...] filedocumented in this encounter Care Teams Administrative Specialist Relationship Specialty Start Date End Date Daniel Mota MD PCP - General Internal Medicine 10/20/16 09/23/19 Ayan Clayton MD [address] [place] [address] [id number] PCP - General Internal Medicine 09/24/19 documented as of this encounter
--- OUTSIDE RECORDS SUMMARY | 2024-08-13 13:28 | XMS_ITS | Encounter Summary ---
Author Organization [facility] Address [address] [place] [address] Care Team Providers Care Band Top Maker Name Role Phone Daniel Mota MD Primary Care Provider Unavail Victor Manuel Yu MD Primary Care Provider Unava ilable Daniel Mota MD Primary Care Provider Unavail Ayan Pulliam MD Primary Care Provider [phone] Victor Manuel Gonzales MD Primary Care Provider Unava ilable Reason for Visit * Reason Onset Date Comments Provider Call Back 10/15/2013 Medication 10/15/2013 Encounter Details Date Type Department Care Team Description 10/15/2013 Telephone Physiatry - [place] [address] [place] [address] Surjit Reese DO Provider Call Back; Medication [...] in service per recording Message sent via [employer] * Telephone Encounter - Surjit Reese - [...] is at work. She works at [employer] until 11 pm. She wants to stop [...] unspecified documented in this encounter Care Teams Band Top Maker Relationship Specialty Start Date End Date Daniel Mota MD PCP - General 07/27/1994 12/22/15 Victor Manuel Gonzales MD PCP - General Internal Medicine 07/22/16 10/19/16 Daniel Mota MD PCP - General Internal Medicine 10/20/16 09/23/19 Ayan Clayton MD [address] [place] [id number] PCP - General Internal Medicine 09/24/19 Victor Manuel Gonzales MD PCP - General 12/23/15 07/21/16 documented as of this encounter
--- OUTSIDE RECORDS SUMMARY | 2024-08-13 13:28 | XMS_ITS | Encounter Summary ---
Author Organization [facility] Address [address] [place] [address] Care Team Providers Care Health Science Instructor Name Role Phone Ayan Clayton MD Primary Care Provider [phone] Reason for Visit * Reason Onset Date Comments Faxed Order 11/19/2019 allied Encounter Details Date Type Department Care Team Description 11/19/2019 Telephone Adult Medicine [facility] [address] [place], [place] [phone] Ayan Clayton MD [address] [place] [address] [phone] Faxed Order (allied) Social History Tobacco Use [...] filedocumented in this encounter Care Teams Health Science Instructor Relationship Specialty Start Date End Date Ayan Clayton MD [address] [place] [phone] PCP - General Internal Medicine 09/24/19 documented as of this encounter
--- OUTSIDE RECORDS SUMMARY | 2024-08-13 13:28 | XMS_ITS | Encounter Summary ---
Author Organization [facility] Address [address] [place] [address] Care Team Providers Care Risk Compliance Analyst Name Role Phone Daniel Mota MD Primary Care Provider Unavail able Ayan Clayton MD Primary Care Provider [phone] Encounter Details Date Type Department Care Team Description 05/07/2019 Microbiology Lab Analyst Report Medical Records [address] [place] [address] Ta Garcia MD Social History Tobacco Use [...] on filedocumented in this encounter Care Teams Risk Compliance Analyst Relationship Specialty Start Date End Date Daniel Mota MD PCP - General Internal Medicine 10/20/16 09/23/19 Ayan Clayton MD [address] [place] [address] [phone] PCP - General Internal Medicine 09/24/19 documented as of this encounter
--- OUTSIDE RECORDS SUMMARY | 2024-08-13 13:28 | XMS_ITS | Encounter Summary ---
Author Organization [facility] Address [address] [place] [address] Care Team Providers Care Voip Technician Name Role Phone Daniel Mota MD Primary Care Provider Unavail able Ayan Clayton MD Primary Care Provider [phone] Encounter Details Date Type Department Care Team Description 08/29/2019 Library Associate Report Medical Records [address] [place] [phone] Ta Garcia MD Social History Tobacco Use [...] on filedocumented in this encounter Care Teams Voip Technician Relationship Specialty Start Date End Date Daniel Mota MD PCP - General Internal Medicine 10/20/16 09/23/19 Ayan Clayton MD [address] [place] [address] [phone] PCP - General Internal Medicine 09/24/19 documented as of this encounter
--- OUTSIDE RECORDS SUMMARY | 2024-08-13 13:28 | XMS_ITS | Encounter Summary ---
Author Organization [facility] Address [address] [place] [address] Care Team Providers Care Metaphysician Name Role Phone Ayan Clayton MD Primary Care Provider [phone] Encounter Details Date Type Department Care Team Description 11/08/2019 Hospital Medical Records [address] [place] [address] [facility] Medical Social History Tobacco [...] on filedocumented in this encounter Care Teams Metaphysician Relationship Specialty Start Date End Date Ayan Clayton MD [address] [place], [place] [phone] PCP - General Internal Medicine 09/24/19 documented as of this encounter
--- OUTSIDE RECORDS SUMMARY | 2024-08-13 13:28 | XMS_ITS | Encounter Summary ---
Author Organization [facility] Address [address] [place] [address] Care Team Providers Care Senior Electronics Design Engineer Name Role Phone Ayan Clayton MD Primary Care Provider [phone] Reason for Visit * Reason Onset Date Comments Faxed Order 01/17/2020 Encounter Details Date Type Department Care Team Description 01/17/2020 Telephone Adult Medicine [address] [phone] Ayan Clayton MD [address] [place] [address] [phone] Faxed Order Social History Tobacco Use Types [...] filedocumented in this encounter Care Teams Senior Electronics Design Engineer Relationship Specialty Start Date End Date Ayan Clayton MD [address] [place] [id number] PCP - General Internal Medicine 09/24/19 documented as of this encounter
--- OUTSIDE RECORDS SUMMARY | 2024-08-13 13:28 | XMS_ITS | Encounter Summary ---
Author Organization [facility] Address [address] [place] [address] Care Team Providers Care Jai Alai Player Name Role Phone Ayan Clayton MD Primary Care Provider Reason for Visit * Reason Comments E-prescribe Rx Request Encounter Details Date Type Department Care Team Description 02/24/2020 Refill Adult Medicine [facility] [address] [place], [place] [phone] Ayan Clayton MD [address] [place] [phone] E-prescribe Rx Request Social History Tobacco Use [...] ?? Patients current insurance carrier is: Payor: [employer] / Plan: [facility] / Product Type: HMO [id number] ?? 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
--- OUTSIDE RECORDS SUMMARY | 2024-08-13 13:28 | XMS_ITS | Data Portability ---
Author Organization [facility] [employer] [facility], Main Office Address [address] [facility], [address] [place] [address] Care Team Providers Care Management Analyst Name Role Phone YARITZA PERDOMO - 2ND FLOOR OTHER GARETT ALFARO Primary Care Provider [phone] Assessment Encounter Date Assessment Date Assessment LastModified by Organization Details LastModified Time 05/21/2024 05/21/2024 45 minutes spent on coordination of discharge. [email or web address] Not available 05/21/2024 10:30:03 Plan of Treatment Reminders Order Date Submit Date Provider Last Modified By Organization Details Last Modified Time Details Appointments None recorded. Lab None recorded. Referral None recorded. Procedures None recorded. Surgeries None recorded. Imaging None recorded. Medication Orders morphine ER 15 mg tablet,ext ended release 2024 025 [facility] , [address] [place] [address], [address], 22:13:52 oxycodone 10 mg tablet 2024 025 [facility] , [address] [place] [address], [address], 5 22:13:53 Patient TargetsNo targets recorded. Patient InstructionsNo instructions recorded. Reason for Referral None Reported. Problems Name Problem SNOMED Code Status Onset Date Resolution Date Notes Provider Name and Address Organization Details Recorded Time Wound of skin 606262200 Active 2024 right hip surgical wound MICHAEL ADAIR, KALE [address] [facility], [address], [place], [address], [facility] [employer] 14:01:04 Total replacement of right hip joint Active 2024 MICHAEL ADAIR NP [address], [address], [place], [address], [facility] 5 14:02:07 Hyperlipide tayler 44328757 Active 2024 MICHAEL ADAIR NP [address], [address], [place], [address], [facility] 5 14:07:43 Gastroesoph ageal reflux disease without esophagitis 104002231 Active 2024 MICHAEL ADAIR NP [address], [address], [place], [address], [facility] 5 14:07:53 Chronic obstructive pulmonary disease 37013486 Active 2024 MICHAEL ADAIR NP [address] [facility], [address], [place], [address], [facility] 5 14:08:17 Chronic pain 95456266 Active 2024 MICHAEL ADAIR NP [address] [facility], [address], [place], [address], [facility] 5 14:08:31 Mixed anxiety and depressive disorder 978758227 Active 2024 MICHAEL ADAIR NP [address] [facility], [address], [place], [address], [facility] 5 14:08:38 Osteoarthri tis 645012429 Active 2024 MICHAEL ADAIR NP [address] [facility], [address], [place], [address], [facility] 5 14:12:21 Problem Notes None recorded. Medical Equipment None Reported. Allergies Allergen ID Allergen Name Allergen Category Reaction Reaction Severity Criticality Documentation Date Start Date Code Code System Note Provider Name and Address Organization Details Recorded Time 66696 Substance with sulfonami de structure and antibacte rial mechanism of action (substanc e) medicatio n Not available Not available [facility] 05/04/20242005 1682248 5685 SNOMED swell ing and diffi culty breat devonte Herrmann MD [address] [facility], [address], [place], [address], [facility] 5 18:13:48 [address] metformin medicatio n diarrhea Not available Not available 05/04/20242016 6809 RxNorm Vida Herrmann MD [address] [facility], [address], [place], [address], [facility] 5 18:12:37 [address]34[address] semagluti de medicatio n Not available Not available Not available 05/04/2024 RxNorm MICHAEL ADAIR NP [address] [facility], [address], [place], [address], [facility] 5 14:09:42 Medications Name Sig Start [...] mm[Hg] 80 mm[Hg] MICHAEL ADAIR NP [address] [facility], [address], [place], [address], [facility] 5 14:00:15 Date Recorded Body weight Body mass index (BMI) Body height Heart rate Respiratory rate Body temperature Oxygen saturation Oxygen saturation in Arterial blood by Pulse oximetry Systolic blood pressure Diastolic blood pressure Provider Name and Address Organization Details Last Updated DateTime 5 03557.0 3 g 25.8 kg/m2 149.86 cm 83 /min 18 /min 98.5 [degF] 96 % 96 % 161 mm[Hg] 68 mm[Hg] Vida Herrmann MD [address] [facility], [address], [place], [address], [facility] 5 19:40:07 Date Recorded Body height Body mass index (BMI) Body weight Heart rate Respiratory rate Body temperature Oxygen saturation Oxygen saturation in Arterial blood by Pulse oximetry Systolic blood pressure Diastolic blood pressure Provider Name and Address Organization Details Last Updated DateTime 149.86 cm 25.7 kg/m2 43174.2 3 g 72 /min 18 /min 97.8 [degF] 96 % 96 % 142 mm[Hg] 78 mm[Hg] Sanaz Armenta NP [address] [facility], [address], [place], [address], [facility] 5 12:05:39 Date Recorded Body height Heart rate Respiratory rate Body temperature Oxygen saturation Oxygen saturation in Arterial blood by Pulse oximetry Systolic blood pressure Diastolic blood pressure Provider Name and Address Organization Details Last Updated DateTime 5 149.86 cm 60 /min 18 /min 97.5 [degF] 97 % 97 % 126 mm[Hg] 74 mm[Hg] RAHEEM ALMAGUER NP [address] [facility], [address], [place], [address], [facility] 5 10:27:38 Social History Question Answer Notes LastModified by Organizat ion Details LastModified Time Tobacco Smoking Status Former Smoker 0627-4585, 3 ppd Vida Herrmann MD [address] [facility], [facility] [address], [place], [address], [facility] 05/06/2024 22:16:45 Do You Have An Advance Directive? Yes Information not available 05/06/2024 What Is Your Code Status? Full Code Information not available 05/06/2024 Where Do You Live? Condo Alone, 2 Steps To Enter, Then 1 Level. Information not available 05/06/2024 Legal Guardian? No Informati on not available 05/06/2024 Do You Have A Medical Power Of Elementary Principal? Yes Information not available 05/06/2024 What Was The Date Of Your Most Recent Tobacco Screening? 05/06/2024 Information not available 05/06/2024 Do You Have An Out Of Hospital DNR? No Information not available 05/06/2024 What Is Your Relationship Status? Information not available 05/06/2024 How Much Tobacco Do You Smoke? No Information not available 05/06/2024 Has Tobacco Cessation Counseling Been Provided? No N/a As Pt No Longer Smokes Information not available 05/06/2024 How Many Years Have You Smoked Tobacco? 45 135 Pack Years Information not available 05/06/2024 Sex: Unknown Functional Status Question Answer Note LastModified by Organizat ion Details LastModified Time Do you use any illicit or recreational drugs? No Information not available 05/04/2024 Do you or have you ever used any other forms of tobacco or nicotine? No Information not available 05/06/2024 What is your level of alcohol consumption? None Information not available 05/04/2024 Mental Status None recorded. Family History Nothing Reported Notes:n/c Medical History No medical history recorded. Gynecological HistoryNo gynecological history recorded. Obstetrics History GPAL:G 0 P 0 0 0 0 Immunizations Vaccine Type Date Status Note Provider Nam e and Address Organization Details Recorded Time Tdap 2 completed Theresa Saini [facility] 05/08/2024 16:05:46 Tdap 3 completed Theresa Saini [facility] 05/08/2024 16:05:54 Td(adult) unspecified formulation 3 completed Theresa Saini [facility] 05/08/2024 16:06:09 Pneumococcal conjugate PCV 13 1 completed Theresa Saini [facility] 05/08/2024 16:06:29 pneumococcal polysaccharide PPV23 5 completed Theresa Saini [facility] 05/08/2024 16:06:45 influenza, unspecified formulation 3 completed Theresa Saini [facility] 05/08/2024 16:07:03 influenza, unspecified formulation 4 completed Theresa Saini [facility] 05/08/2024 16:07:17 SARS-COV-2 (COVID-19) vaccine, UNSPECIFIED 1 completed Theresa Saini [facility] 05/08/2024 16:07:38 SARS-COV-2 (COVID-19) vaccine, UNSPECIFIED 1 completed Theresa Saini [facility] 05/08/2024 16:07:47 SARS-COV-2 (COVID-19) vaccine, UNSPECIFIED 2 completed Theresa [facility] 05/08/2024 16:07:59 SARS-COV-2 (COVID-19) vaccine, UNSPECIFIED 2 completed Theresa Saini [facility] 05/08/2024 16:08:09 SARS-COV-2 (COVID-19) vaccine, UNSPECIFIED 3 completed Theresa Saini [facility] 05/08/2024 16:08:20 zoster, unspecified formulation 9 completed Theresa [facility] 05/08/2024 16:08:38 zoster, unspecified formulation 0 completed Theresa [facility] 05/08/2024 16:08:46 Past Encounters Encounter ID Performer Location Encounter Start Date Encounter Closed Date Diagnosis/Indication Diagnosis SNOMED-CT Code Diagnosis ICD10 Code Diagnosis Note [id number] MICHAEL ADAIR NP [address] [address] 05/04/2024 12:51:16 05/07/2024 13:49:18 Wound of skin 728144125 T14.8XXA monitor surgical incision for any signs of infectionc hange dressing as appropriat efollowup with ortho as planned Chronic pain 32913078 G8 9.29 lido patchtizan adine 4 mg prndiclofe nac gel bidms contin 15 mg hsoxycodon e 10 mg tid Chronic ob structive pulmonary disease 84494393 J44.9 combivent prnzyrtec 10 mg dailymonit or resp status Gastroesop hageal reflux disease without esophagitis 091912922 K21.9 omeprazole 20 mg dailybicar b 650 mg bid Hyperlipidemia 14918164 E78.5 atrovastat in 20 mg daily Mixed anxi ety and depressive disorder 176938312 F41.8 cymbalta 30 mg dailypsych prn Osteoarthritis 822114562 M19.90 lido patchtizan adine 4 mg prndiclofe nac gel bidms contin 15 mg hsoxycodon e 10 mg tid [id number] Vida Herrmann MD [address] [address] 05/06/2024 18:09:41 05/16/2024 14:57:48 Chronic pain 76531296 G89.29 Meds as above.Will wean off prn oxy prior to d/c. Osteoarthritis 387007411 M15.0 Z96.643 S/P LTHR in 08/2023 and [...] as planned. Chronic ob structive pulmonary disease 56398233 J43.8 At baseline.C ontinue cetirizine 10 mg qd and combivent 2 puffs q 4 hrs prn.Monito r resp status Gastroesop hageal reflux disease without esophagitis 938073934 K21.9 No current sxs.Contin ue omeprazole 20 mg qd and sodium bicarb 650 mg BIDMonitor GI sxs. Hyperlipidemia 28935932 E78.49 Continue atorvastat in 20 mg qdMonitor labs as outpt. Mixed anxi ety and depressive disorder 947867981 F41.8 Mood good tonight.Co ntinue cymbalta 30 mg qdMonitor mood.Psych consult prn [id number] Sanaz Armenta NP [address] [address] 05/09/2024 12:04:48 05/10/2024 13:24:20 Osteoarthritis 749211726 M15.0 Z96.643 S/P LTHR in 08/2023 and RTHR on 04/30/24cont tizanidine 4 mg BIDlidocai ne patch qd for 12 hrsdiclofe nac gel BIDMSConti n 15 mg qhsoxycodo ne 10 mg TID and 10 mg q 4 hrs prnAPAP 650 mg q 6 hrs prn.Needs PT/OT for strengthen ing, balance, gait training, safety and function.C ontinue fall precaution s.Monitor for safety.Zee mobley incision.F /U with ortho as planned. Chronic pain 26926363 G8 9.29 Meds as above.Will wean off prn oxy prior to d/c. Chronic ob structive pulmonary disease 26106519 J43.8 Continueco mbivent prnzyrtec 10 mg dailymonit or resp status Gastroesop hageal reflux disease without esophagitis 862479615 K21.9 contomepra zole 20 mg dailybicar b 650 mg bid Hyperlipidemia 52715187 E78.5 contatorva statin 20 mg daily Mixed anxi ety and depressive disorder 388320698 F41.8 contcymbal ta 30 mg dailypsych prn Wound of skin 025736872 T14.8XXA sp right hip arthroplas ty with dr annabelle mobley surgical incision for any signs of infectionc hange dressing as appropriat efollowup with ortho as planned Infection caused by Norovirus 540220296 A08.11 pt with norovirus positive stool testsympto ms with nausea and vomiting started on 05/03 progressed with diarrhea and now on 05/09 lessening. health dept updated as requested contimmodi um prnzofran 4 mg po q 6 hours prnencoura ge po fluidslabs weekly and prnisolati on precaution s as facility protocolmo nitor vs qd and prn [id number] Sanaz Armenta NP [address] [address] 05/16/2024 14:46:35 05/17/2024 16:20:21 Infection caused by Norovirus 357601084 A08.11 resolved Wound of skin 510660004 T14.8XXA sp right hip arthroplas ty with dr annabelle mobley surgical incision for any signs of infectionS he saw Ortho today on 05/16 today, with rec:therap y with glut, core, quad strengthen ing, gait training, and posterior precaution sfu with 4 weeks. Osteoarthritis 704760153 M15.0 Z96.643 S/P LTHR in 08/2023 and [...] /U with ortho as planned. Chronic pain 04930621 G8 9.29 Meds as above.Will wean off prn oxy prior to d/c. [id number] RAHEEM ALMAGUER NP [facility] [address] 05/21/2024 10:26:56 05/23/2024 11:51:17 Osteoarthritis 039535977 M15.0 Z96.643 S/P R THR on 04/30/24 [...] incision, CSM upon d/c home. Chronic pain 49620230 G8 9.29 Meds as above.Enco uraged to wean off prn oxycodone upon d/c home. Currently using prn doses about 2xd Chronic ob structive pulmonary disease 19298104 J43.8 At baseline.C ontinue cetirizine 10 mg qd and combivent 2 puffs q 4 hrs prn.Monito r resp status as outpt. Gastroesop hageal reflux disease without esophagitis 655646941 K21.9 No current sxs.Contin ue omeprazole 20 mg qd and sodium bicarb 650 mg BIDMonitor GI sxs. Hyperlipidemia 10317884 E78.49 Continue atorvastat in 20 mg qdMonitor labs as outpt. Mixed anxi ety and depressive disorder 509947378 F41.8 Continue cymbalta 30 mg qdMonitor mood as outpt.Psyc h consult prn Health Concerns Section Related Observation LastModified by Organization Detai ls LastModified Time None Recorded Concern Status LastModified by Organization Details LastModified Time None Recorded Advance Directives Directive Y: Payers Encounter Date Sequence Insurance Name Policy Number Policy Toribio Covered Member ID Toribio Member ID Guarantor Name 05/04/2024 1 [facility] - DOS ON OR AFTER 2022 - MEDICARE [place]AGE [place]V ANTAGE - PPO) Yanet Fernando [id number] Yanet Fernando 05/06/2024 1 [facility] - DOS ON OR AFTER 2022 - [place]V ANTAGE - PPO) Yanet Fernando [id number] Ynaet Fernando 05/09/2024 1 [facility] - DOS ON OR AFTER 2022 - [place]V ANTAGE - [place]PO) Yanet Fernando [id number] Yanet Fernando 05/16/2024 1 [facility] - DOS ON OR AFTER 2022 - [place]V ANTAGE - PPO) Yanet Fernando [id number] Yanet Fernando 05/21/2024 1 [facility] - DOS ON OR AFTER 2022 - [place]/ADV ANTAGE - PPO) Yanet Fernando [id number] Yanet Fernando Notes Date Note Type Note Provider Name and Address Organization Details Recorded Time 05/04/2024 text/html seen today for initial intake visit-68 yof admitted to for rehab after having a right total hip replacement, she tolerated the surgery well with no complications. CAOx3 sitting up in bed, good cms to right leg, dressing small staining noted MICHAEL ADAIR, KALE [address] [facility], [address], [place], [address], [facility] 05/04/2024 14:18:25 05/06/2024 text/html This is a [...] Covid, anxiety/depression, and HLD. Vida Herrmann MD [address] [place] [address], [address], [place], [address], [facility] [employer] 05/16/2024 00:16:51 05/09/2024 text/html This is a [...] here on 05/03. Sanaz Armenta NP [address] [facility], [address], [place], [address], [facility] [employer] 05/09/2024 13:44:40 05/16/2024 text/html Yanet is a [...] up using a walker and shows this RADIO PERFORMER her right hip with steri strips intact [...] here on 05/03. Sanaz Armenta, KALE [address] [facility], [address], [place], [address], [facility] - [employer] 05/16/2024 15:28:40 05/21/2024 text/html Yanet is seen today for discharge.She is returning home today with the support of family and services. She is is a 68 yo woman, admitted to [facility] 05/03/24 from [facility] for continued care and rehab after a [...] anxiety/depression, and HLD. RAHEEM ALMAGUER NP [address] [facility], [address], [place], [address], [facility] - [employer] 05/21/2024 10:54:45 OBGyn Episode No OBEpisode recorded.
--- OUTSIDE RECORDS SUMMARY | 2024-08-13 13:28 | XMS_ITS | Encounter Summary ---
Author Organization [facility] Address [address] [place] [address] Care Team Providers Care Upset Welding Machine Operator Name Role Phone Daniel Mota MD Primary Care Provider Unavail Victor Manuel Yu MD Primary Care Provider Unava ilable Daniel Mota MD Primary Care Provider Unavail Ayan Pulliam MD Primary Care Provider [phone] Victor Manuel Gonzales MD Primary Care Provider Justinava jaxson Encounter Details Date Type Department Care Team Description 11/27/2013 Controlled Substance Plan Medical Records [address] [place] [address] Abstract, Provider Social History Tobacco Use Types [...] on filedocumented in this encounter Care Teams Upset Welding Machine Operator Relationship Specialty Start Date End Date Daniel Mota MD PCP - General 07/27/1994 12/22/15 Victor Manuel Gonzales MD PCP - General Internal Medicine 07/22/16 10/19/16 Daniel Mota MD PCP - General Internal Medicine 10/20/16 09/23/19 Ayan Clayton MD [address] [place] [address] PCP - General Internal Medicine 09/24/19 Victor Manuel Gonzales MD PCP - General 12/23/15 07/21/16 documented as of this encounter
--- OUTSIDE RECORDS SUMMARY | 2024-08-13 13:28 | XMS_ITS | Encounter Summary ---
Author Organization [facility] Address [address] [place] [address] Care Team Providers Care Rotary Drier Operator Name Role Phone Daniel Mota MD Primary Care Provider [facility] Ayan Clayton MD Primary Care Provider [phone] Reason for Visit * Reason Comments E-prescribe Rx Request Encounter Details Date Type Department Care Team Description 07/10/2019 Refill General Surgery - [place] [address] [facility] [address] [place] [address] Torrey Moreno MD [address] [place] [address] [address] [place] [address] E-prescribe Rx Request Social History Tobacco Use [...] on filedocumented in this encounter Care Teams Rotary Drier Operator Relationship Specialty Start Date End Date Daniel Mota MD PCP - General Internal Medicine 10/20/16 09/23/19 Ayan Clayton MD [address] [place] [address] PCP - General Internal Medicine 09/24/19 documented as of this encounter
--- OUTSIDE RECORDS SUMMARY | 2024-08-13 13:28 | XMS_ITS | Encounter Summary ---
Author Organization [facility] Address [address] [place] [address] Care Team Providers Care Digital Media Strategist Name Role Phone Ayan Clayton MD Primary Care Provider [phone] Reason for Visit * Reason Comments E-prescribe Rx Request Encounter Details Date Type Department Care Team Description [facility]/24/[facility] [place] [address] [facility] [address] [place] [address] Torrey Moreno MD [address] [place] [address] DRIVE [address] [place] [address] E-prescribe Rx Request Social History Tobacco Use [...] gastrectomy documented in this encounter Care Teams Digital Media Strategist Relationship Specialty Start Date End Date Ayan Clayton MD [address] [place] [phone] PCP - General Internal Medicine 09/24/19 documented as of this encounter
--- OUTSIDE RECORDS SUMMARY | 2024-08-13 13:28 | XMS_ITS | Encounter Summary ---
Author Organization [facility] Address [address] [place] [address] Care Team Providers Care Legal Operations Manager Name Role Phone Daniel Mota MD Primary Care Provider Unavail able Ayan Clayton MD Primary Care Provider [phone] Encounter Details Date Type Department Care Team Description 04/11/2019 Release of Information Medical Records [address] [place] [id number] Abstract, Provider Social History Tobacco Use Types [...] on filedocumented in this encounter Care Teams Legal Operations Manager Relationship Specialty Start Date End Date Daniel Mota MD PCP - General Internal Medicine 10/20/16 09/23/19 Ayan Clayton MD [address] [place] [address] PCP - General Internal Medicine 09/24/19 documented as of this encounter
--- OUTSIDE RECORDS SUMMARY | 2024-08-13 13:28 | XMS_ITS | Encounter Summary ---
Author Organization [facility] Address [address] [place] [address] Care Team Providers Care Dental Office Manager Name Role Phone Ayan Clayton MD Primary Care Provider [phone] Reason for Visit * Reason Onset Date Comments Faxed Order 12/06/2019 Encounter Details Date Type Department Care Team Description 12/06/2019 Telephone Adult Medicine [facility] [address] [place] [phone] Ayan Clayton MD [address] [place] [phone] Faxed Order Social History Tobacco Use Types [...] pass this call to me at EX [phone] Thank you * Telephone Encounter - Mela Benton R.N. - 12/09/2019 10:21 AM EDT We need a face to face for [facility]NA. Last visit 11/20 * Telephone Encounter - Noemi Sanders - 12/09/2019 10:10 AM EDT [facility] needs face to face faxed to him today Phone [phone] * Telephone Encounter - Tara Roe - 12/06/2019 2:16 PM EDT FAXED IN DR [facility]ALAN[employer]ATURE AND TO BE FAXED BACK TO [phone] documented in this encounter Plan of Treatment Not on file documented as of this encounter Visit Diagnoses Not on filedocumented in this encounter Care Teams Dental Office Manager Relationship Specialty Start Date End Date Ayan Clayton MD [address] [place] [address] PCP - General Internal Medicine 09/24/19 documented as of this encounter
--- OUTSIDE RECORDS SUMMARY | 2024-08-13 13:28 | XMS_ITS | Encounter Summary ---
Author Organization [facility] Address [address] [place] [address] Care Team Providers Care Outbound Sales Specialist Name Role Phone Ayan Clayton MD Primary Care Provider [phone] Encounter Details Date Type Department Care Team Description 08/15/2023 Orders Only Pulmonology - [place] [address] [facility] [address] [place] [phone] Jil Freeman APRN [address] [facility] [address] [place] [phone] Chronic bronchitis, unspecified chronic bronchitis type (HCC); [...] examination documented in this encounter Care Teams Outbound Sales Specialist Relationship Specialty Start Date End Date Ayan Clayton MD [address] [place] [address] PCP - General Internal Medicine 09/24/19 documented as of this encounter
--- OUTSIDE RECORDS SUMMARY | 2024-08-13 13:28 | XMS_ITS | Encounter Summary ---
Author Organization [facility] Address [address] [place] [address] Care Team Providers Care Chronometer Assembler And Adjuster Name Role Phone Daniel Mota MD Primary Care Provider Unavail able Ayan Clayton MD Primary Care Provider [phone] Encounter Details Date Type Department Care Team Description 04/15/2019 Bingo Manager Report Medical Records [address] [place] [address] Bharath Block PA-C Social History Tobacco Use [...] on filedocumented in this encounter Care Teams Chronometer Assembler And Adjuster Relationship Specialty Start Date End Date Daniel Mota MD PCP - General Internal Medicine 10/20/16 09/23/19 Ayan Clayton MD [address] [place], [place] [phone] PCP - General Internal Medicine 09/24/19 documented as of this encounter
--- OUTSIDE RECORDS SUMMARY | 2024-08-13 13:28 | XMS_ITS | Encounter Summary ---
Author Organization [facility] Address [address] [place] [address] Care Team Providers Care Well Logging Mud Analysis Captain Name Role Phone Daniel Mota MD Primary Care Provider Ayan Rubalcava MD Primary Care Provider [phone] Reason for Visit * Reason Comments E-prescribe Rx Request Encounter Details Date Type Department Care Team Description 09/11/2019 Refill Pulmonology - [place] 175 [facility] [address] [place] [address] [phone] Carlos Hurley MD 175 [facility] [address] [place] [phone] E-prescribe Rx Request Social History Tobacco Use [...] asthma documented in this encounter Care Teams Well Logging Mud Analysis Captain Relationship Specialty Start Date End Date Daniel Mota MD PCP - General Internal Medicine 10/20/16 09/23/19 Ayan Clayton MD [address] [place] [address] PCP - General Internal Medicine 09/24/19 documented as of this encounter
--- OUTSIDE RECORDS SUMMARY | 2024-08-13 13:28 | XMS_ITS | Encounter Summary ---
Author Organization [facility] Address [address] [place] [address] Care Team Providers Care Neonatologist Name Role Phone Ayan Clayton MD Primary Care Provider [phone] Encounter Details Date Type Department Care Team Description 01/03/2024 Telephone Adult Medicine [facility] [address] [place] [address] [phone] Ayan Clayton MD [address] [place] [address] [phone] Social History Tobacco Use Types Packs/Day Years [...] on filedocumented in this encounter Care Teams Neonatologist Relationship Specialty Start Date End Date Ayan Clayton MD [address] [place] [address] PCP - General Internal Medicine 09/24/19 documented as of this encounter
--- OUTSIDE RECORDS SUMMARY | 2024-08-13 13:28 | XMS_ITS | Encounter Summary ---
Author Organization [facility] Address [address] [place] [address] Care Team Providers Care Lead Mechanic Name Role Phone Daniel Mota MD Primary Care Provider [facility] Ayan Clayton MD Primary Care Provider [phone] Reason for Visit * Reason Comments E-prescribe Rx Request Encounter Details Date Type Department Care Team Description 04/10/2019 Refill General Surgery - [place] 175 [facility] [address] [place] [phone] Torrey Moreno MD [address] [place] [address] [address] [place] [address] E-prescribe Rx Request Social History Tobacco Use [...] on filedocumented in this encounter Care Teams Lead Mechanic Relationship Specialty Start Date End Date Daniel Mota MD PCP - General Internal Medicine 10/20/16 09/23/19 Ayan Clayton MD [address] [place] [address] PCP - General Internal Medicine 09/24/19 documented as of this encounter
--- OUTSIDE RECORDS SUMMARY | 2024-08-13 13:28 | XMS_ITS | Encounter Summary ---
Author Organization [facility] Address [address] [place] [address] Care Team Providers Care Experimental Preflight Mechanic Name Role Phone Daniel Mota MD Primary Care Provider Unavail Victor Manuel Yu MD Primary Care Provider Unava ilable Daniel Mota MD Primary Care Provider Unavail Ayan Pulliam MD Primary Care Provider Victor Manuel Gonzales MD Primary Care Provider Justinava jaxson Encounter Details Date Type Department Care Team Description 01/29/2015 [facility] Medical Records [address] [place] [address] Austin Dorado Social History Tobacco Use Types [...] on filedocumented in this encounter Care Teams Experimental Preflight Mechanic Relationship Specialty Start Date End Date Daniel Mota MD PCP - General 07/27/1994 12/22/15 Victor Manuel Gonzales MD PCP - General Internal Medicine 07/22/16 10/19/16 Daniel Mota MD PCP - General Internal Medicine 10/20/16 09/23/19 Ayan Clayton MD [address] [place] [address] PCP - General Internal Medicine 09/24/19 Victor Manuel Gonzales MD PCP - General 12/23/15 07/21/16 documented as of this encounter
--- OUTSIDE RECORDS SUMMARY | 2024-08-13 13:28 | XMS_ITS | Encounter Summary ---
Author Organization [facility] Address [address] [place] [address] Care Team Providers Care Freelance Programmer/App Developer Name Role Phone Ayan Clayton MD Primary Care Provider [phone] Reason for Visit * Reason Onset Date Comments Faxed Order 01/28/2020 Encounter Details Date Type Department Care Team Description 01/28/2020 Telephone Adult Medicine [facility] [address] [place] [address] [phone] Ayan Clayton MD [address] [place] [address] [phone] Faxed Order Social History Tobacco Use Types [...] on filedocumented in this encounter Care Teams Freelance Programmer/App Developer Relationship Specialty Start Date End Date Ayan Clayton MD [address] [place] [address] PCP - General Internal Medicine 09/24/19 documented as of this encounter
--- OUTSIDE RECORDS SUMMARY | 2024-08-13 13:28 | XMS_ITS | Encounter Summary ---
Author Organization [facility] Address [address] [place] [address] Care Team Providers Care Senior Web Architect Name Role Phone Ayan Clayton MD Primary Care Provider Encounter Details Date Type Department Care Team Description 12/14/2023 Telephone Adult Medicine [address] [phone] Ayan Clayton MD [address] [place] [address] [phone] Social History Tobacco Use Types Packs/Day Years [...] filedocumented in this encounter Care Teams Senior Web Architect Relationship Specialty Start Date End Date Ayan Clayton MD [address] [place] [address] PCP - General Internal Medicine 09/24/19 documented as of this encounter
--- OUTSIDE RECORDS SUMMARY | 2024-08-13 13:28 | XMS_ITS | Encounter Summary ---
Author Organization [facility] Address [address] [place] [address] Care Team Providers Care Wallpaperer Name Role Phone Daniel Mota MD Primary Care Provider Unavail Victor Manuel Yu MD Primary Care Provider Unava ilable Daniel Mota MD Primary Care Provider Unavail Ayan Pulliam MD Primary Care Provider [phone] Victor Manuel Gonzales MD Primary Care Provider Unava ilmaximino Encounter Details Date Type Department Care Team Description 08/01/2009 [facility] Medical Records [address] [place] [address] Orlando Stovall MD Social History Tobacco Use [...] on filedocumented in this encounter Care Teams Wallpaperer Relationship Specialty Start Date End Date Daniel Mota MD PCP - General 07/27/1994 12/22/15 Victor Manuel Gonzales MD PCP - General Internal Medicine 07/22/16 10/19/16 Daniel Mota MD PCP - General Internal Medicine 10/20/16 09/23/19 Ayan Clayton MD [address] [place] [address] PCP - General Internal Medicine 09/24/19 Victor Manuel Gonzales MD PCP - General 12/23/15 07/21/16 documented as of this encounter
--- OUTSIDE RECORDS SUMMARY | 2024-08-13 13:28 | XMS_ITS | Encounter Summary ---
Author Organization [facility] Address [address] [place] [address] Care Team Providers Care Sap Pi Architect Name Role Phone Ayan Clayton MD Primary Care Provider [phone] Encounter Details Date Type Department Care Team Description 12/24/2019 Home Health Certification Medical Records [address] [place] [address] Social History Tobacco Use Types Packs/Day Years [...] on filedocumented in this encounter Care Teams Sap Pi Architect Relationship Specialty Start Date End Date Ayan Clayton MD [address] [place] [address] [phone] PCP - General Internal Medicine 09/24/19 documented as of this encounter
--- OUTSIDE RECORDS SUMMARY | 2024-08-13 13:28 | XMS_ITS | Encounter Summary ---
Author Organization [facility] Address [address] [place] [address] Care Team Providers Care Or Nurse Manager Name Role Phone Ayan Clayton MD Primary Care Provider [phone] Reason for Visit * Reason Comments E-prescribe Rx Request Encounter Details Date Type Department Care Team Description 01/31/2020 Refill General Surgery - [place] 175 [facility] [address] [place] [address] Torrey Moreno MD [address] [place] [address] [address] [place] [address] E-prescribe Rx Request Social History Tobacco Use [...] Telephone Encounter - Carolina Arellano M.A. - 01/31/2020 7:51 AM EST Pt needs a 90 day refill of cholecalciferol (vitamin D3) 125mcg (5,000 unit) capsule documented in this encounter Plan of Treatment Not on file documented as of this encounter Visit Diagnoses Diagnosis Intestinal malabsorption following gastrectomy documented in this encounter Care Teams Or Nurse Manager Relationship Specialty Start Date End Date Ayan Clayton MD [address] [place] [address] PCP - General Internal Medicine 09/24/19 documented as of this encounter
--- OUTSIDE RECORDS SUMMARY | 2024-08-13 13:28 | XMS_ITS | Encounter Summary ---
Author Organization [facility] Address [address] [place] [address] Care Team Providers Care Mortgage Loan Processing Clerk Name Role Phone Daniel Mota MD Primary Care Provider Unavail Victor Manuel Yu MD Primary Care Provider Unava ilable Daniel Mota MD Primary Care Provider Unavail Ayan Pulliam MD Primary Care Provider [phone] Victor Manuel Gonzales MD Primary Care Provider Unava ilmaximino Encounter Details Date Type Department Care Team Description 01/29/2015 Help Desk Representative Report Medical Records [address] [place] [address] Austin Dorado Social History Tobacco Use Types [...] on filedocumented in this encounter Care Teams Mortgage Loan Processing Clerk Relationship Specialty Start Date End Date Daniel Mota MD PCP - General 07/27/1994 12/22/15 Victor Manuel Gonzales MD PCP - General Internal Medicine 07/22/16 10/19/16 Daniel Mota MD PCP - General Internal Medicine 10/20/16 09/23/19 Ayan Clayton MD [address] [place] [address] PCP - General Internal Medicine 09/24/19 Victor Manuel Gonzales MD PCP - General 12/23/15 07/21/16 documented as of this encounter
--- OUTSIDE RECORDS SUMMARY | 2024-08-13 13:29 | XMS_ITS | Encounter Summary ---
Author Organization [facility] Address [address] [place] [address] Care Team Providers Care Front Office Medical Assistant Name Role Phone Ayan Clayton MD Primary Care Provider [phone] Encounter Details Date Type Department Care Team Description 11/26/2020 Ethics Instructor Report Medical Records [address] [place] [address] Rell Leavitt Social History Tobacco Use Types [...] on filedocumented in this encounter Care Teams Front Office Medical Assistant Relationship Specialty Start Date End Date Ayan Clayton MD [address] [place], [place] [phone] PCP - General Internal Medicine 09/24/19 documented as of this encounter
--- OUTSIDE RECORDS SUMMARY | 2024-08-13 13:29 | XMS_ITS | Encounter Summary ---
Author Organization [facility] Address [address] [place] [address] Care Team Providers Care Grader Operator Name Role Phone Daniel Mota MD Primary Care Provider Ayan Rubalcava MD Primary Care Provider [phone] Encounter Details Date Type Department Care Team Description 04/24/2017 Pt. Non Urgent Medic al Question Adult Medicine [address] [address] Daniel Mota MD Social History Tobacco Use [...] on filedocumented in this encounter Care Teams Grader Operator Relationship Specialty Start Date End Date Daniel Mota MD PCP - General Internal Medicine 10/20/16 09/23/19 Ayan Clayton MD [address] [place] [address] PCP - General Internal Medicine 09/24/19 documented as of this encounter
--- OUTSIDE RECORDS SUMMARY | 2024-08-13 13:29 | XMS_ITS | Encounter Summary ---
Author Organization [facility] Address [address] [place] [address] Care Team Providers Care Division Roadmaster Name Role Phone Ayan Clayton MD Primary Care Provider [phone] Reason for Visit * Reason Onset Date Comments Faxed Order 02/06/2020 Encounter Details Date Type Department Care Team Description 02/06/2020 Telephone Adult Medicine [address] [phone] Ayan Clayton MD [address] [place] [address] [phone] Faxed Order Social History Tobacco Use Types [...] 02/06/2020 2:07 PM EST Faxed order from [facility] documented in this encounter Plan of Treatment Not on file documented as of this encounter Visit Diagnoses Not on filedocumented in this encounter Care Teams Division Roadmaster Relationship Specialty Start Date End Date yAan Clayton MD [address] [place] [address] PCP - General Internal Medicine 09/24/19 documented as of this encounter
--- OUTSIDE RECORDS SUMMARY | 2024-08-13 13:29 | XMS_ITS | Encounter Summary ---
Author Organization [facility] Address [address] [place] [address] Care Team Providers Care Clay Digger Name Role Phone Ayan Clayton MD Primary Care Provider [phone] Encounter Details Date Type Department Care Team Description 06/26/2020 Retail Store Associate Report Medical Records [address] [place] [address] [facility] Social History Tobacco Use Types Packs/Day Years [...] on filedocumented in this encounter Care Teams Clay Digger Relationship Specialty Start Date End Date Ayan Clayton MD [address] [place], [place] [phone] PCP - General Internal Medicine 09/24/19 documented as of this encounter
--- OUTSIDE RECORDS SUMMARY | 2024-08-13 13:29 | XMS_ITS | Encounter Summary ---
Author Organization [facility] Address [address] [place] [address] Care Team Providers Care Pst Supervisor Name Role Phone Ayan Clayton MD Primary Care Provider [phone] Reason for Referral * EXTERNAL (Routine) - Authorized/Booked Specialty Diagnoses / Procedures Referred By Contac t Referred To Contact Endocrinology Diagnoses Low serum parathyroid hormone (PTH) Procedures REFERRAL TO ENDOCRIN[place] [address] [facility] Endocrine And Diabetes Referral ID Status Reason Start Date Expiration Date V isits Requested Visits Authorized [id number] Authorized/B ooked 08/27/2020 12/22/2020 1 1 Encounter Details Date Type Department Care Team Description 08/27/2020 Telephone Adult Medicine [address] [phone] Ayan Clayton MD [address] [place] [address] [phone] Social History Tobacco Use Types Packs/Day Years [...] levels documented in this encounter Care Teams Pst Supervisor Relationship Specialty Start Date End Date Ayan Clayton MD [address] [place] [address] PCP - General Internal Medicine 09/24/19 documented as of this encounter
--- OUTSIDE RECORDS SUMMARY | 2024-08-13 13:29 | XMS_ITS | Encounter Summary ---
Author Organization [facility] Address [address] [place] [address] Care Team Providers Care Assistant Name Role Phone Daniel Mota MD Primary Care Provider Unavail able Ayan Clayton MD Primary Care Provider [phone] Encounter Details Date Type Department Care Team Description 01/26/2017 Ceramics Machine Operator Report Medical Records [address] [place] [address] Betty Bach MD [address] [place] [address] [address] [place] [address] Social History Tobacco Use Types Packs/Day Years [...] filedocumented in this encounter Care Teams Assistant Relationship Specialty Start Date End Date Daniel Mota MD PCP - General Internal Medicine 10/20/16 09/23/19 Ayan Clayton MD [address] [place], [place] [phone] PCP - General Internal Medicine 09/24/19 documented as of this encounter
--- OUTSIDE RECORDS SUMMARY | 2024-08-13 13:29 | XMS_ITS | Encounter Summary ---
Author Organization [facility] Address [address] [place] [address] Care Team Providers Care Water Quality Assistant Name Role Phone Ayan Calyton MD Primary Care Provider [phone] Reason for Referral * Non CRAIG (Routine) - Authorized/Booked Specialty Diagnoses / Procedures Referred By Contac t Referred To Contact Gastroenterology Procedures REFERRAL TO GASTROENTEROLOGY Ayan Clayton MD [address] [place] [address] Gastro [place]/175 175 [facility] [address] [place] [phone] Referral ID Status Reason Start Date Expiration Date V isits Requested Visits Authorized [id number] Authorized/B ooked 08/18/2020 08/18/2021 1 1 Reason for Visit * Reason Onset Date Comments TEST RESULTS 08/18/2020 Encounter Details Date Type Department Care Team Description 08/18/2020 Pt. Non Urgent Medical Question Adult Medicine [facility] [address] [place] [address] Ayan Clayton MD [address] [place] [address] Constipation, unspecified constipation type (Primary Dx); Hypercalcemia; [...] - 80 ng/mL 08/21/2020 12:39 PM EDT [facility] 08/21/2020 9:22 AM EDT 08/21/2020 9:23 AM EDT Narrative [facility] - 08/21/2020 12:39 PM EDT Release to patient->Immediate Ayan Clayton MD LAB [facility] * (ABNORMAL) COMPREHENSIVE METABOLIC PANEL (08/21/2020 9:22 AM EDT) GLUCOSE 251(H) 70 - 100 mg/dL 08/21/2020 12:33 PM EDT [facility] Comment:Reference range appl icable to fasting specimens only Blood Urea Nitrogen 19 5 - 25 mg/dL 08/21/2020 12:33 PM EDT [facility] CREAT 1.41(H) 0.5 - 1.1 mg/dL 08/21/2020 12:33 PM EDT [facility] GLOMERULAR FILTRATION RATE 38 08/21/2020 12:33 PM EDT [facility] Comment: If patient is -Spanish, multiply result by 1.21 Chronic Kidney Disease: < 60 ml/min/1.73 square meters Kidney Failure: < 15 ml/min/1.73 square meters NA 140 135 - 145 mEq/L 08/21/2020 12:33 PM EDT [facility] K 4.5 3.5 - 5.5 mmol/L 08/21/2020 12:33 PM EDT [facility] CL 108 96 - 110 mmol/L 08/21/2020 12:33 PM EDT [facility] CARBON DIOXIDE (CO2) 28 21 - 32 mmol/L 08/21/2020 12:33 PM EDT [facility] ANION GAP 4 3 - 11 08/21/2020 12:33 PM EDT [facility] CALCIUM 9.7 8.5 - 10.5 mg/dL 08/21/2020 12:33 PM EDT [facility] Albumin 3.6 3.2 - 5.0 G/dL 08/21/2020 12:33 PM EDT [facility] SGPT 23 10 - 60 U/L 08/21/2020 12:33 PM EDT [facility] TOTAL PROTEIN (TP) 7.7 6.0 - 8.0 G/dL 08/21/2020 12:36 PM EDT [facility] BILIRUBIN TOTAL 0.9 0.0 - 1.4 mg/dL 08/21/2020 12:36 PM EDT [facility] SGOT 32 10 - 42 U/L 08/21/2020 12:36 PM EDT [facility] ALK PHOS 444(H) 42 - 121 U/L 08/21/2020 12:36 PM EDT [facility] 08/21/2020 9:22 AM EDT 08/21/2020 9:23 AM EDT Narrative [facility] - 08/21/2020 12:36 PM EDT Release to patient->Immediate Ayan Clayton MD LAB [facility] * (ABNORMAL) PTH INTACT (08/21/2020 9:21 AM EDT) INTACT PTH 16(L) 18 - 88 pg/mL 08/21/2020 12:40 PM EDT [facility] 08/21/2020 9:21 AM EDT 08/21/2020 9:23 AM EDT Narrative [facility] - 08/21/2020 12:40 PM EDT Release to patient->Immediate Ayan Clayton MD LAB Performing Organization Address [facility] Co de Phone Number [facility] documented in this encounter Visit Diagnoses Diagnosis Constipation, unspecified constipation type- Primary Hypercalcemia Decreased GFR Nonspecific abnormal results of kidney function study Elevated alkaline phosphatase level Other nonspecific abnormal serum enzyme levels Elevated alkaline phosphatase level Other nonspecific abnormal serum enzyme levels Hypercalcemia Decreased GFR Nonspecific abnormal results of kidney function study documented in this encounter Care Teams Water Quality Assistant Relationship Specialty Start Date End Date Ayan Clayton MD [address] [place] [address] PCP - General Internal Medicine 09/24/19 documented as of this encounter
--- OUTSIDE RECORDS SUMMARY | 2024-08-13 13:29 | XMS_ITS | Encounter Summary ---
Author Organization [facility] Address [address] [place] [address] Care Team Providers Care Room Worker Name Role Phone Ayan Clayton MD Primary Care Provider [phone] Encounter Details Date Type Department Care Team (Late Contact Info) Description 05/08/2024 Lab Requisition [facility] - Main Lab 299 [facility] [place] [address] Niels Retana MD [address] [place] [address] 204 [place], [address] Diarrhea, unspecified Social History Tobacco Use [...] 10:00 AM EDT Appointment Radiology Department - [address] [address] 12/05/2024 3:45 PM EDT Office Visit Nephrology - [address] [place] [address] Vega Navarro MD [address] [facility] 204 [place] [phone] 02/04/2025 9:00 AM EST Office Visit Bariatric Surgery - [place] 175 [facility] [address] [place] [phone] Torrey Moreno MD 175 [facility] 120 [place] [address] 06/12/2025 9:20 AM EDT Office Visit Pulmonolgy - [place] 175 [facility] [address] [place] [address] Jil Freeman NP 175 [facility] 200 [place] [address] documented as of this encounter Procedures Procedure Name Priority Date/Time Associated Diagnosis Comments GASTROINTESTINAL PATHOGENS BY PCR Routine 05/08/2024 6:00 AM EST Diarrhea, unspecified CLOSTRIDIUM DIFFICILE TOXIN Routine 05/08/2024 6:00 AM EST Diarrhea, unspecified documented in this encounter Results * Clostridium difficile toxin (05/08/2024 6:00 AM EST) Clostridium difficile GDH Antigen Negative Negative 05/08/2024 12:02 PM EST [facility] C difficile Toxins A+B, EIA Negative Negative 05/08/2024 12:02 PM EST [facility] Comment:NEGATIVE FOR TOXIN P RODUCING CLOSTRIDIOIDES DIFFICILE, NO ADDITIONAL TESTING IS NECESSARY. Stool Rectum structure / Unknown 05/08/2024 6:00 AM EST 05/08/2024 11:43 AM EST us Niels Retana MD LAB MICROBIOLOGY - GENERAL ORDER CHELA Final Result [facility] [address] [place] [address], * (ABNORMAL) Gastrointestinal pathogens molecular study (05/08/2024 6:00 AM EST) Campylobacter Detection by PCR Not Detected Not Detected LAB MICROBIOLOGY METHOD 5 12:46 PM EST [facility] Plesiomonas shigelloides Detection by PCR Not Detected Not Detected LAB MICROBIOLOGY METHOD 5 12:46 PM EST [facility] Salmonella Detection by PCR Not Detected Not Detected LAB MICROBIOLOGY METHOD 5 12:46 PM EST [facility] Vibrio Detection by PCR Not Detected Not Detected LAB MICROBIOLOGY METHOD 5 12:46 PM [facility] Vibrio cholerae Detection by PCR Not Detected Not Detected LAB MICROBIOLOGY METHOD 5 12:46 PM EST [facility] Yersinia enterocolitica Detection by PCR Not Detected Not Detected LAB MICROBIOLOGY METHOD 5 12:46 PM EST [facility] Enteroaggregative E coli EAEC Detection by PCR Not Detected Not Detected LAB MICROBIOLOGY METHOD 5 12:46 PM [facility] Enteropathogenic E coli EPEC Detection Not Detected Not Detected LAB MICROBIOLOGY METHOD 5 12:46 PM [facility] Enterotoxigenic E coli ETEC LTST Detection Not Detected Not Detected LAB MICROBIOLOGY METHOD 5 12:46 PM [facility] Shiga-like toxin producing E coli STEC STX1 STX2 Det Not Detected Not Detected LAB MICROBIOLOGY METHOD 5 12:46 PM EST [facility] Shigella Enteroinvasive E coli EIEC Detection Not Detected Not Detected LAB MICROBIOLOGY METHOD 5 12:46 PM [facility] Cryptosporidium Detection by PCR Not Detected Not Detected LAB MICROBIOLOGY METHOD 5 12:46 PM EST [facility] Cyclospora cayetanensis Detection by PCR Not Detected Not Detected LAB MICROBIOLOGY METHOD 5 12:46 PM [facility] Entamoeba histolytica Detection by PCR Not Detected Not Detected LAB MICROBIOLOGY METHOD 5 12:46 PM [facility] Giardia lamblia Detection by PCR Not Detected Not Detected LAB MICROBIOLOGY METHOD 5 12:46 PM [facility] Adenovirus F 40 41 Detection by PCR Not Detected Not Detected LAB MICROBIOLOGY METHOD 5 12:46 PM [facility] Astrovirus Detection by PCR Not Detected Not Detected LAB MICROBIOLOGY METHOD 5 12:46 PM [facility] Norovirus GI GII Detection by PCR Detected(A ) Not Detected LAB MICROBIOLOGY METHOD 5 12:46 PM [facility] Sapovirus Detection by PCR Not Detected Not Detected LAB MICROBIOLOGY METHOD 5 12:46 PM [facility] Rotavirus A Detection by PCR Not Detected Not Detected LAB MICROBIOLOGY METHOD 5 12:46 PM [facility] Stool Rectum structure / Unknown 05/08/2024 6:00 AM EST 05/08/2024 10:34 AM [facility] - 05/08/2024 12:46 PM EST PCR [...] Final Result [facility] [address] [place] [address], documented in this encounter Visit Diagnoses Diagnosis Diarrhea, unspecified Encounter for screening mammogram for breast cancer documented in this encounter Additional Health Concerns Infection Onset Date Last Indicated Resolved Time Norovirus 05/08/2024 05/08/2024 documented as of this encounter Care Teams Room Worker Relationship Specialty Start Date End Date Ayan Clayton MD [address] [place] [address] PCP - General Internal Medicine 07/11/24 documented as of this encounter
--- OUTSIDE RECORDS SUMMARY | 2024-08-13 13:29 | XMS_ITS | Encounter Summary ---
Author Organization [facility] Address [address] [place] [address] Care Team Providers Care Field Service Consultant Name Role Phone Ayan Clayton MD Primary Care Provider [phone] Reason for Visit * Reason Comments E-prescribe Rx Request Encounter Details Date Type Department Care Team Description 05/07/2020 Refill General Surgery - [place] 175 [facility] [address] [place] [address] Torrey Moreno MD [address] [place] [address] [address] [place], [place] [phone] E-prescribe Rx Request Social History Tobacco Use [...] gastrectomy documented in this encounter Care Teams Field Service Consultant Relationship Specialty Start Date End Date Ayan Clayton MD [address] [place] [address] PCP - General Internal Medicine 09/24/19 documented as of this encounter
--- OUTSIDE RECORDS SUMMARY | 2024-08-13 13:29 | XMS_ITS | Encounter Summary ---
Author Organization [facility] Address [address] [place] [address] Care Team Providers Care Firestopper Technician Name Role Phone Daniel Mota MD Primary Care Provider Unavail Victor Manuel Yu MD Primary Care Provider Unava ilable Daniel Mota MD Primary Care Provider Unavail Ayan Pulliam MD Primary Care Provider [phone] Victor Manuel Gonzales MD Primary Care Provider Unava ilable Reason for Visit * Reason Comments Encounter Details Date Type Department Care Team Description 11/18/2015 Telephone Podiatry - [place] 444 [place] [address] Skylar Hanna DPM Social History Tobacco Use [...] on filedocumented in this encounter Care Teams Firestopper Technician Relationship Specialty Start Date End Date Daniel Mota MD PCP - General 07/27/1994 12/22/15 Victor Manuel Gonzales MD PCP - General Internal Medicine 07/22/16 10/19/16 Daniel Mota MD PCP - General Internal Medicine 10/20/16 09/23/19 Ayan Clayton MD [address] [place] [address] PCP - General Internal Medicine 09/24/19 Victor Manuel Gonzales MD PCP - General 12/23/15 07/21/16 documented as of this encounter
--- OUTSIDE RECORDS SUMMARY | 2024-08-13 13:29 | XMS_ITS | Encounter Summary ---
Author Organization [facility] Address [address] [place] [address] Care Team Providers Care Plant Propagator Name Role Phone Daniel Mota MD Primary Care Provider Unavail able Ayan Clayton MD Primary Care Provider [phone] Encounter Details Date Type Department Care Team Description 01/30/2017 Release of Information Medical Records [address] [place] [address] Abstract, Provider Social History Tobacco Use Types [...] filedocumented in this encounter Care Teams Plant Propagator Relationship Specialty Start Date End Date Daniel Mota MD PCP - General Internal Medicine 10/20/16 09/23/19 Ayan Clayton MD [address] [place] [id number] PCP - General Internal Medicine 09/24/19 documented as of this encounter
--- OUTSIDE RECORDS SUMMARY | 2024-08-13 13:29 | XMS_ITS | Encounter Summary ---
Author Organization [facility] Address [address] [place] [address] Care Team Providers Care Clerical Aide Name Role Phone Daniel Mota MD Primary Care Provider [facility] Ayan Pulliam MD Primary Care Provider [phone] Reason for Visit * Reason Onset Date Comments Rash 04/10/2017 breast Encounter Details Date Type Department Care Team Description 04/10/2017 Telephone Adult Medicine [address] [address] Daniel Mota MD Rash (breast) Social History [...] these symptoms?: N/A PCP: Daniel Mota Payor: MEDICARE-[employer] / Plan: MEDICARE[employer] / Product Type: MEDICARE [id number] documented in this encounter Plan of Treatment Not on file documented as of this encounter Visit Diagnoses Not on filedocumented in this encounter Care Teams Clerical Aide Relationship Specialty Start Date End Date Daniel Mota MD PCP - General Internal Medicine 10/20/16 09/23/19 Ayan Clayton MD [address] [place] [address] PCP - General Internal Medicine 09/24/19 documented as of this encounter
--- OUTSIDE RECORDS SUMMARY | 2024-08-13 13:29 | XMS_ITS | Encounter Summary ---
Author Organization [facility] Address [address] [place] [address] Care Team Providers Care Electrical Foreman Name Role Phone Ayan Clayton MD Primary Care Provider [phone] Encounter Details Date Type Department Care Team (Late Contact Info) Description 05/06/2024 Lab Requisition [facility] - Main Lab 299 [facility] [place] [address] Niels Retana MD [address] [place] [address] [address] [place], [address] Other termite technician (current) drug therapy Social History Tobacco [...] AM EDT Appointment Radiology Department - [address] [address] 12/05/2024 3:45 PM EDT Office Visit Nephrology - [place] 444 [place] [address] Vega Navarro MD [address] [facility] 204 [place] [address] 02/04/2025 9:00 AM EST Office Visit Bariatric Surgery - [place] 175 [facility] 120 [place] [address] Torrey Moreno MD 175 [facility] 120 [place] [address] 06/12/2025 9:20 AM EDT Office Visit Pulmonolgy - [place] 175 [facility] 200 [place] [address] Jil Freeman NP 175 [facility] 200 [place] [address] documented as of this encounter Procedures Procedure Name Priority Date/Time Associated Diagnosis Comments COMPLETE BLOOD COUNT Routine 05/06/2024 6:41 AM EST Other termite technician (current) drug therapy COMPREHENSIVE METABOLIC PANEL Routine 05/06/2024 6:41 AM EST Other [facility] ([facility] drug therapy documented in this encounter Results * (ABNORMAL) Comprehensive metabolic panel (05/06/2024 6:41 AM EST) Sodium 141 133 - 145 mmol/L LAB CHEMISTRY METHOD 05/06/2024 2:03 PM EST [facility] Potassium 3.6 3.5 - 5.5 mmol/L LAB CHEMISTRY METHOD 05/06/2024 2:03 PM [facility] Chloride 107 96 - 110 mmol/L LAB CHEMISTRY METHOD 05/06/2024 2:03 PM [facility] CO2 26 21 - 32 mmol/L LAB CHEMISTRY METHOD 05/06/2024 2:03 PM [facility] Anion Gap 8 3 - 11 LAB CHEMISTRY METHOD 05/06/2024 2:03 PM [facility] Glucose 108(H) 70 - 100 mg/dL LAB CHEMISTRY METHOD 05/06/2024 2:03 PM [facility] BUN 14 5 - 25 mg/dL LAB CHEMISTRY METHOD 05/06/2024 2:03 PM [facility] Creatinine 0.85 0.50 - 1.10 mg/dL LAB CHEMISTRY METHOD 05/06/2024 2:03 PM [facility] eGFR 75 >=60 mL/min/1. 73m2 LAB CHEMISTRY METHOD 05/06/2024 2:03 PM [facility] Comment:Calculation based on the??Chronic Kidney Disease Epidemiology Collaboration (CKD-EPI) equation refit??without adjustment for race. BUN/Creatinine Ratio 16.5 LAB CHEMISTRY METHOD 05/06/2024 2:03 PM [facility] Calcium 8.7 8.5 - 10.5 mg/dL LAB CHEMISTRY METHOD 05/06/2024 2:03 PM [facility] AST (SGOT) 35 10 - 42 unit/L LAB CHEMISTRY METHOD 05/06/2024 2:03 PM [facility] ALT (SGPT) 37 10 - 60 unit/L LAB CHEMISTRY METHOD 05/06/2024 2:03 PM [facility] Alkaline Phosphatase 403(H) 42 - 121 unit/L LAB CHEMISTRY METHOD 05/06/2024 2:03 PM [facility] Total Protein 5.8(L) 6.0 - 8.0 g/dL LAB CHEMISTRY METHOD 05/06/2024 2:03 PM [facility] Albumin 2.4(L) 3.2 - 5.0 g/dL LAB CHEMISTRY METHOD 05/06/2024 2:03 PM [facility] Total Bilirubin 0.5 0.0 - 1.4 mg/dL LAB CHEMISTRY METHOD 05/06/2024 2:03 PM [facility] Blood Venous blood specimen / Unknown Venipuncture / Unknown 05/06/2024 6:41 AM EST 05/06/2024 12:07 PM EST us iNels Retana MD LAB BLOOD ORDERABLES Final Resul t [facility] [address] [place] [address], * (ABNORMAL) Complete blood count (05/06/2024 6:41 AM EST) WBC 12.0(H) 4.8 - 10.8 K/mcL LAB HEMETOLOGY METHOD 05/06/2024 1:39 PM [facility] RBC 3.60(L) 3.80 - 4.80 M/mcL LAB HEMETOLOGY METHOD 05/06/2024 1:39 PM [facility] Hemoglobin 10.1(L) 11.5 - 16.0 g/dL LAB HEMETOLOGY METHOD 05/06/2024 1:39 PM [facility] Hematocrit 32.4(L) 35.0 - 47.0 % LAB HEMETOLOGY METHOD 05/06/2024 1:39 PM [facility] MCV 90.5 79.0 - 98.0 FL LAB HEMETOLOGY METHOD 05/06/2024 1:39 PM [facility] MCH 28.2 27.0 - 32.0 pcg LAB HEMETOLOGY METHOD 05/06/2024 1:39 PM [facility] MCHC 31.2(L) 32.0 - 37.0 g/dL LAB HEMETOLOGY METHOD 05/06/2024 1:39 PM [facility] RDW 15.0 11.0 - 15.0 % LAB HEMETOLOGY METHOD 05/06/2024 1:39 PM [facility] Platelets 349 130 - 400 K/mcL LAB HEMETOLOGY METHOD 05/06/2024 1:39 PM EST [facility] MPV 10.1 7.0 - 11.0 FL LAB HEMETOLOGY METHOD 05/06/2024 1:39 PM EST [facility] NRBC 0.0 <1.0 % LAB HEMETOLOGY METHOD 05/06/2024 1:39 PM EST [facility] NRBC Absolute 0.00 <0.10 K/mcL LAB HEMETOLOGY METHOD 05/06/2024 1:39 PM EST [facility] Blood Venous blood specimen / Unknown Venipuncture / Unknown 05/06/2024 6:41 AM EST 05/06/2024 12:07 PM EST us Niels Retana MD LAB BLOOD ORDERABLES Final Resul t [facility] [address] [place] [address], documented in this encounter Visit Diagnoses Diagnosis Other termite technician (current) drug therapy Encounter for screening mammogram for breast cancer documented in this encounter Additional Health Concerns Infection Onset Date Last Indicated Resolved Time Norovirus 05/08/2024 05/08/2024 documented as of this encounter Care Teams Electrical Foreman Relationship Specialty Start Date End Date Ayan Clayton MD [address] [place] [address] PCP - General Internal Medicine 07/11/24 documented as of this encounter
--- OUTSIDE RECORDS SUMMARY | 2024-08-13 13:29 | XMS_ITS | Encounter Summary ---
Author Organization [facility] Address [address] [place] [address] Care Team Providers Care It Engineer Name Role Phone Daniel Mota MD Primary Care Provider Unavail Victor Manuel Yu MD Primary Care Provider Unava ilable Daniel Mota MD Primary Care Provider Unavail Ayan Pulliam MD Primary Care Provider [phone] Victor Manuel Gonzales MD Primary Care Provider Unava ilmaximino Encounter Details Date Type Department Care Team Description 12/27/2010 Housekeeping Coordinator Report Medical Records [address] [place] [address] Elgin Russell MD Social History Tobacco Use [...] filedocumented in this encounter Care Teams It Engineer Relationship Specialty Start Date End Date Daniel Mota MD PCP - General 07/27/1994 12/22/15 Victor Manuel Gonzales MD PCP - General Internal Medicine 07/22/16 10/19/16 Daniel Mota MD PCP - General Internal Medicine 10/20/16 09/23/19 Ayan Clayton MD [address] [place] [address] PCP - General Internal Medicine 09/24/19 Victor Manuel Gonzales MD PCP - General 12/23/15 07/21/16 documented as of this encounter
--- OUTSIDE RECORDS SUMMARY | 2024-08-13 13:29 | XMS_ITS | Encounter Summary ---
Author Organization [facility] Address [address] [place] [address] Care Team Providers Care Nut Grader Name Role Phone Daniel Mota MD Primary Care Provider Unavail Victor Manuel Yu MD Primary Care Provider Unava ilable Daniel Mota MD Primary Care Provider Unavail Ayan Pulliam MD Primary Care Provider [phone] Victor Manuel Gonzales MD Primary Care Provider Justinava jaxson Encounter Details Date Type Department Care Team Description 11/20/2015 [facility] Medical Records [address] [place] [address] Abstract, Provider Social History Tobacco Use Types [...] on filedocumented in this encounter Care Teams Nut Grader Relationship Specialty Start Date End Date Daniel Mota MD PCP - General 07/27/1994 12/22/15 Victor Manuel Gonzales MD PCP - General Internal Medicine 07/22/16 10/19/16 Daniel Mota MD PCP - General Internal Medicine 10/20/16 09/23/19 Ayan Clayton MD [address] [place] [address] PCP - General Internal Medicine 09/24/19 Victor Manuel Gonzales MD PCP - General 12/23/15 07/21/16 documented as of this encounter
--- OUTSIDE RECORDS SUMMARY | 2024-08-13 13:29 | XMS_ITS | Encounter Summary ---
Author Organization [facility] Address [address] [place] [address] Care Team Providers Care Director Of Strategic Programs Name Role Phone Ayan Clayton MD Primary Care Provider Encounter Details Date Type Department Care Team Description 11/20/2020 Hospital Medical Records [address] [place] [address] Rell Leavitt Social History Tobacco Use Types [...] in this encounter Care Teams Director Of Strategic Programs Relationship Specialty Start Date End Date Ayan Clayton MD [address] [place], [place] [phone] PCP - General Internal Medicine 09/24/19 documented as of this encounter
--- OUTSIDE RECORDS SUMMARY | 2024-08-13 13:29 | XMS_ITS | Encounter Summary ---
Author Organization [facility] Address [address] [place] [address] Care Team Providers Care Process Engineering Intern Name Role Phone Daniel Mota MD Primary Care Provider Ayan Rubalcava MD Primary Care Provider [phone] Reason for Visit * Reason Onset Date Comments Faxed Order 12/06/2016 [facility] Encounter Details Date Type Department Care Team Description 12/06/2016 Telephone Adult Medicine [address] [address] Daniel Mota MD Faxed Order ([facility]) Social History Tobacco Use Types Packs/Day Years [...] 12/06/2016 3:04 PM EDT Faxed order from [facility], please sign and fax documented in this encounter Plan of Treatment Not on file documented as of this encounter Visit Diagnoses Not on filedocumented in this encounter Care Teams Process Engineering Intern Relationship Specialty Start Date End Date Daniel Mota MD PCP - General Internal Medicine 10/20/16 09/23/19 Ayan Clayton MD [address] [place] [address] PCP - General Internal Medicine 09/24/19 documented as of this encounter
--- OUTSIDE RECORDS SUMMARY | 2024-08-13 13:29 | XMS_ITS | Encounter Summary ---
Author Organization [facility] Address [address] [place] [address] Care Team Providers Care Industry Analyst Name Role Phone Ayan Clayton MD Primary Care Provider [phone] Encounter Details Date Type Department Care Team Description 07/24/2020 Clam Grader Report Medical Records [address] [place] [id number] [facility] Social History Tobacco Use Types [...] on filedocumented in this encounter Care Teams Industry Analyst Relationship Specialty Start Date End Date Ayan Clayton MD [address] [place], [place] [phone] PCP - General Internal Medicine 09/24/19 documented as of this encounter
--- OUTSIDE RECORDS SUMMARY | 2024-08-13 13:29 | XMS_ITS | Encounter Summary ---
Author Organization [facility] Address [address] [place] [address] Care Team Providers Care Terrestrial Ecologist Name Role Phone Ayan Clayton MD Primary Care Provider [phone] Reason for Visit * Reason Onset Date Comments Faxed Order 09/09/2020 Encounter Details Date Type Department Care Team Description 09/09/2020 Telephone Adult Medicine [facility] [address] [place] [address] [phone] Ayan Clayton MD [address] [place] [address] [phone] Faxed Order Social History Tobacco Use Types [...] AM EDT More faxed orders received from [employer], placed in Ayan mahmood * Telephone Encounter - Rosa [place] - 09/09/2020 10:23 AM EDT Physician order for Dr. Ayan Clayton's signature documented in this encounter Plan of Treatment Not on file documented as of this encounter Visit Diagnoses Not on filedocumented in this encounter Care Teams Terrestrial Ecologist Relationship Specialty Start Date End Date Ayan Clayton MD [address] [place] [address] PCP - General Internal Medicine 09/24/19 documented as of this encounter
--- OUTSIDE RECORDS SUMMARY | 2024-08-13 13:29 | XMS_ITS | Encounter Summary ---
Author Organization [facility] Address [address] [place] [address] Care Team Providers Care Ore Mixer Name Role Phone Ayan Clayton MD Primary Care Provider [phone] Encounter Details Date Type Department Care Team Description 05/25/2020 Old Medical Records Medical Records [address] [place] [address] Abstract, Provider Social History Tobacco Use Types [...] on filedocumented in this encounter Care Teams Ore Mixer Relationship Specialty Start Date End Date Ayan Clayton MD [address] [place], [place] [phone] PCP - General Internal Medicine 09/24/19 documented as of this encounter
--- OUTSIDE RECORDS SUMMARY | 2024-08-13 13:29 | XMS_ITS | Encounter Summary ---
Author Organization [facility] Address [address] [place] [address] Care Team Providers Care Buckle Coverer Name Role Phone Ayan Clayton MD Primary Care Provider [phone] Reason for Visit * Reason Onset Date Comments Bariatric Weight Check 07/29/2020 Encounter Details Date Type Department Care Team Description 07/29/2020 Telephone General Surgery - [address] [place] [address] Liana Churchill, ,RDN,LDN Bariatric Weight [...] on filedocumented in this encounter Care Teams Buckle Coverer Relationship Specialty Start Date End Date Ayan Clayton MD [address] [place] [address] PCP - General Internal Medicine 09/24/19 documented as of this encounter
--- OUTSIDE RECORDS SUMMARY | 2024-08-13 13:29 | XMS_ITS | Encounter Summary ---
Author Organization [facility] Address [address] [place] [address] Care Team Providers Care Registered Clinical Dietitian Name Role Phone Ayan Clayton MD Primary Care Provider [phone] Reason for Visit * Reason Onset Date Comments medication problems 10/29/2020 Encounter Details Date Type Department Care Team Description 10/29/2020 Telephone Adult Medicine [facility] [address] [place] [address] [phone] Ayan Clayton MD [address] [place] [address] [phone] medication problems Social History Tobacco Use Types [...] filedocumented in this encounter Care Teams Registered Clinical Dietitian Relationship Specialty Start Date End Date Ayan Clayton MD [address] [place] [id number] PCP - General Internal Medicine 09/24/19 documented as of this encounter
--- OUTSIDE RECORDS SUMMARY | 2024-08-13 13:29 | XMS_ITS | Encounter Summary ---
Author Organization [facility] Address [address] [place] [address] Care Team Providers Care Hospice Coordinator Name Role Phone Ayan Clayton MD Primary Care Provider [phone] Encounter Details Date Type Department Care Team Description 10/08/2020 Quality Control Tech Report Medical Records [address] [place] [address] Skylar Hanna DPM Social History Tobacco Use [...] on filedocumented in this encounter Care Teams Hospice Coordinator Relationship Specialty Start Date End Date Ayan Clayton MD [address] [place], [place] [phone] PCP - General Internal Medicine 09/24/19 documented as of this encounter
--- OUTSIDE RECORDS SUMMARY | 2024-08-13 13:29 | XMS_ITS | Encounter Summary ---
Author Organization [facility] Address [address] [place] [address] Care Team Providers Care Sugar Presser Name Role Phone Victor Manuel Gonzales MD Primary Care Provider Daniel Longoria MD Primary Care Provider Ayan Rubalcava MD Primary Care Provider [phone] Reason for Visit * Reason Onset Date Comments Orders Call 07/22/2016 Encounter Details Date Type Department Care Team Description 07/22/2016 Telephone Podiatry - [place] [address] [place] [address] Skylar Hanna DPM Orders Call Social History [...] on filedocumented in this encounter Care Teams Sugar Presser Relationship Specialty Start Date End Date Victor Manuel Gonzales MD PCP - General Internal Medicine 07/22/16 10/19/16 Daniel Mota MD PCP - General Internal Medicine 10/20/16 09/23/19 Ayan Clayton MD [address] [place] [address] PCP - General Internal Medicine 09/24/19 documented as of this encounter
--- OUTSIDE RECORDS SUMMARY | 2024-08-13 13:29 | XMS_ITS | Encounter Summary ---
Author Organization [facility] Address [address] [place] [address] Care Team Providers Care Bricklayer Paving Brick Name Role Phone Daniel Mota MD Primary Care Provider Unavail Victor Manuel Yu MD Primary Care Provider Unava ilable Daniel Mota MD Primary Care Provider Unavail Ayan Pulliam MD Primary Care Provider [phone] Victor Manuel Gonzales MD Primary Care Provider Unava ilmaximino Encounter Details Date Type Department Care Team Description 05/02/2011 Collections Rep Report Medical Records [address] [place] [address] Elgin Russell MD Social History Tobacco Use [...] on filedocumented in this encounter Care Teams Bricklayer Paving Brick Relationship Specialty Start Date End Date Daniel Mota MD PCP - General 07/27/1994 12/22/15 Victor Manuel Gonzales MD PCP - General Internal Medicine 07/22/16 10/19/16 Daniel Mota MD PCP - General Internal Medicine 10/20/16 09/23/19 Ayan Clayton MD [address] [place] [address] PCP - General Internal Medicine 09/24/19 Victor Manuel Gonzales MD PCP - General 12/23/15 07/21/16 documented as of this encounter
--- OUTSIDE RECORDS SUMMARY | 2024-08-13 13:29 | XMS_ITS | Encounter Summary ---
Author Organization [facility] Address [address] [place] [address] Care Team Providers Care Relationship Management Lead Name Role Phone Daniel Mota MD Primary Care Provider Unavail Victor Manuel Yu MD Primary Care Provider Unava ilable Daniel Mota MD Primary Care Provider Unavail Ayan Pulliam MD Primary Care Provider [phone] Victor Manuel Gonzales MD Primary Care Provider Unava ilmaximino Encounter Details Date Type Department Care Team Description 05/04/2010 Intake Manager Report Medical Records [address] [place] [address] Adolfo Hill MD Social History Tobacco Use [...] on filedocumented in this encounter Care Teams Relationship Management Lead Relationship Specialty Start Date End Date Daniel Mota MD PCP - General 07/27/1994 12/22/15 Victor Manuel Gonzales MD PCP - General Internal Medicine 07/22/16 10/19/16 Daniel Mota MD PCP - General Internal Medicine 10/20/16 09/23/19 Ayan Clayton MD [address] [place] [address] PCP - General Internal Medicine 09/24/19 Victor Manuel Gonzales MD PCP - General 12/23/15 07/21/16 documented as of this encounter
--- OUTSIDE RECORDS SUMMARY | 2024-08-13 13:29 | XMS_ITS | Clinical Summary ---
Author Organization [facility] Address [address] [place] [address] Phone Care Team Providers Care Utilization Manager Name Role Phone Ayan Clayton MD Primary Care Provider [phone] Allergies Active Allergy Reactions Criticality Noted Date [...] rhinitis due to pollen 10/01/2018 Centrilobular emphysema ([facility] V24, [facility] V2 8) 10/01/2018 Overview (12/29/2023): [...] 2 diabetes mellitus wit h neurological manifestations ([facility] V24, [facility] V28) 07/11/2012 Type 2 diabetes mellitus wit h renal manifestations ([facility] V24, [facility] V28) 07/11/2012 Overview (12/29/2023): Microalbumin 58 on 08/2011 Hypertension 05/14/2010 Fibromyalgia 03/28/2005 Hyperlipidemia 03/28/2005 Resolved Problems Problem Noted Date Diagnosed Date Resolved Date Overweight (BMI 25.0-29.9) 11/07/2022 0 04/02/2024 Encounters Date Type Department Care Team Description 07/05/2024 Telephone Adult Medicine [address] [address] Laclair, Angela, CUSTOMER SERVICE REPRESENTATIVE Fitting for DME (Faxed form from [place]) 06/12/2024 8:50 AM EDT Office Visit Pulmonolgy - [place] [address] [facility] [address] [place] [address] Jil Freeman, KALE Centrilobular emphysema ([facility] V24, [facility] V28) (Primary Dx); Nocturnal hypoxemia; Snoring; Severe persistent asthma without complication ([facility] V28); Seasonal allergic rhinitis due to pollen 06/05/2024 Telephone Nephrology [facility] [place] [address] [place] [address] Vega Navarro MD Hypotension from [...] 10:00 AM EDT Appointment Radiology Department - [address] [phone] 12/05/2024 3:45 PM EDT Office Visit Nephrology - [address] [phone] Vega Navarro MD [address] [facility] [address] [place] [phone] 02/04/2025 9:00 AM EST Office Visit Bariatric Surgery - [place] [facility] [address] [place] [phone] Torrey Moreno MD [address] [facility] [address] [place] [address] 06/12/2025 9:20 AM EDT Office Visit Pulmonolgy - [place] [address] [place] [phone] Jil Freeman NP [address] Kevin [address] [place] [address] Health Maintenance Due Date Last Done Comments [...] PANEL Routine 05/06/2024 6:41 AM EST Other middle or intermediate school principal (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 BI-RADS: Category 2: Benign Result [facility] Ayan Clayton MD IMG XR PROCEDURES Final Result * Urine Albumin Creatinine Ratio (06/29/2023) Pathologist [facility] Urine Albumin Creatinine Ratio ABSTRACTED Result [facility] HEALTH MAINTENANCE Final Result * Hemoglobin A1c (06/29/2023) [facility] Hemoglobin A1C 5.2 <=6.5 % Blood Venous blood specimen / Unknown Result [facility] LAB BLOOD ORDERABLES Fely l Result * Lipid panel (06/29/2023) [facility] LDL/HDL Ratio 2 0 - 4 Triglycerides 142 0 - 150 mg/dL Cholesterol 172 0 - 200 mg/dL HDL 79 >=40 mg/dL LDL Cholesterol 65 0 - 100 mg/dL Blood Venous blood specimen / Unknown Result [facility] LAB BLOOD ORDERABLES Fely l Result * Diabetes Foot Exam (04/10/2023) [facility] Diabetes: Annual Foot Exam ABSTRACTED Result [facility] Final Result * DXA BONE DENSITY [...] mineral density by WHO criteria. [facility] Department of Internal Medicine recommends [...] alternative screening schedule based on albert Kincaid., [facility] April 14, 2011 for patients [...] mineral density by WHO criteria. [facility] Department of Internal Medicine recommendsusing [...] BMD testingevery 15 years Lemuel Yang MD [facility] DXA PROCEDURES Fely l Result * Cervical Cancer Screening: HPV (04/28/2021) Pathologist [facility] Cervical Cancer Screening: HPV negative,a bstracted us [...] ID:[id number] Group ID:[id number] Type:Not on file Address: [place] [address] [address] [id number] Advance Directives Documents on File Type Date Recorded Patient Litigation Specialist Expl anation Health Care Decision (hx) 05/19/2014 [...] (hx) 05/15/2014 AD QUIÑONEZ DIRECTIVE Care Teams Utilization Manager Relationship Specialty Start Date End Date Ayan Clayton MD [address] [place] [address] PCP - General Internal Medicine 07/11/24
--- OUTSIDE RECORDS SUMMARY | 2024-08-13 13:29 | XMS_ITS | Encounter Summary ---
Author Organization [facility] Address [address] [place] [address] Care Team Providers Care Associate Professor Of Music Name Role Phone Ayan Clayton MD Primary Care Provider [phone] Encounter Details Date Type Department Care Team Description 07/09/2020 Medical Coding Technician Report Medical Records [address] [place] [address] Skylar Hanna DPM Social History Tobacco Use [...] on filedocumented in this encounter Care Teams Associate Professor Of Music Relationship Specialty Start Date End Date Ayan Clayton MD [address] [place], [place] [phone] PCP - General Internal Medicine 09/24/19 documented as of this encounter
--- OUTSIDE RECORDS SUMMARY | 2024-08-13 13:29 | XMS_ITS | Encounter Summary ---
Author Organization [facility] Address [address] [place] [address] Care Team Providers Care Senior Tax Manager Name Role Phone Ayan Clayton MD Primary Care Provider [phone] Encounter Details Date Type Department Care Team Description 06/04/2020 [facility] Medical Records [address] [place] [address] Abstract, Provider Social History Tobacco Use Types [...] filedocumented in this encounter Care Teams Senior Tax Manager Relationship Specialty Start Date End Date Ayan Clayton MD [address] [place], [place] [phone] PCP - General Internal Medicine 09/24/19 documented as of this encounter
--- OUTSIDE RECORDS SUMMARY | 2024-08-13 13:29 | XMS_ITS | Encounter Summary ---
Author Organization [facility] Address [address] [place] [address] Care Team Providers Care Water Maintenance Supervisor Name Role Phone Victor Manuel Gonzales MD Primary Care Provider Daniel Longoria MD Primary Care Provider [facility] Ayan Clayton MD Primary Care Provider [phone] Encounter Details Date Type Department Care Team Description 09/09/2016 Business Doc Medical Records [address] [place] [address] Abstract, Provider Social History Tobacco Use Types [...] on filedocumented in this encounter Care Teams Water Maintenance Supervisor Relationship Specialty Start Date End Date Victor Manuel Gonzales MD PCP - General Internal Medicine 07/22/16 10/19/16 Daniel Mota MD PCP - General Internal Medicine 10/20/16 09/23/19 Ayan Clayton MD [address] [place] [address] PCP - General Internal Medicine 09/24/19 documented as of this encounter
--- OUTSIDE RECORDS SUMMARY | 2024-08-13 13:29 | XMS_ITS | Encounter Summary ---
Author Organization [facility] Address [address] [place] [address] Care Team Providers Care Restaurant General Manager Name Role Phone Daniel Mota MD Primary Care Provider Unavail Victor Manuel Yu MD Primary Care Provider Unava ilable Daniel Mota MD Primary Care Provider Unavail Ayan Pulliam MD Primary Care Provider [phone] Victor Manuel Gonzales MD Primary Care Provider Unava ilable Encounter Details Date Type Department Care Team Description 01/14/2011 Eye Pulmonology Physician Report Medical Records [address] [place] [address] Mathew Liu Social History Tobacco Use Types [...] filedocumented in this encounter Care Teams Restaurant General Manager Relationship Specialty Start Date End Date Daniel Mota MD PCP - General 07/27/1994 12/22/15 Victor Manuel Gonzales MD PCP - General Internal Medicine 07/22/16 10/19/16 Daniel Mota MD PCP - General Internal Medicine 10/20/16 09/23/19 Ayan Clayton MD [address] [place] [address] PCP - General Internal Medicine 09/24/19 Victor Manuel Gonzales MD PCP - General 12/23/15 07/21/16 documented as of this encounter
--- OUTSIDE RECORDS SUMMARY | 2024-08-13 13:29 | XMS_ITS | Encounter Summary ---
Author Organization [facility] Address [address] [place] [address] Care Team Providers Care Measurement Department Chief Clerk Name Role Phone Ayan Clayton MD Primary Care Provider [phone] Encounter Details Date Type Department Care Team Description 05/07/2020 Telephone General Surgery - [place] [address] [facility] [address] [place] [address] Torrey Moreno MD [address] [place] [address] [address] [place], [place] [phone] Social History Tobacco Use Types Packs/Day Years [...] on filedocumented in this encounter Care Teams Measurement Department Chief Clerk Relationship Specialty Start Date End Date Ayan Clayton MD [address] [place] [address] PCP - General Internal Medicine 09/24/19 documented as of this encounter
--- OUTSIDE RECORDS SUMMARY | 2024-08-13 13:30 | XMS_ITS | Encounter Summary ---
Author Organization [facility] Address [address] [place] [address] Care Team Providers Care Residential Case Manager Name Role Phone Daniel Mota MD Primary Care Provider Unavail Victor Manuel Yu MD Primary Care Provider Unava ilable Daniel Mota MD Primary Care Provider Unavail Ayan Pulliam MD Primary Care Provider [phone] Victor Manuel Gonzales MD Primary Care Provider Unava ilmaximino Encounter Details Date Type Department Care Team Description 08/24/2010 Picker Report Medical Records [address] [place] [address] ShannanMichelle [address] [place] [address] Social History Tobacco Use Types Packs/Day Years [...] filedocumented in this encounter Care Teams Residential Case Manager Relationship Specialty Start Date End Date Daniel Mota MD PCP - General 07/27/1994 12/22/15 Victor Manuel Gonzales MD PCP - General Internal Medicine 07/22/16 10/19/16 Daniel Mota MD PCP - General Internal Medicine 10/20/16 09/23/19 Ayan Clayton MD [address] [place] [address] PCP - General Internal Medicine 09/24/19 Victor Manuel Gonzales MD PCP - General 12/23/15 07/21/16 documented as of this encounter
--- OUTSIDE RECORDS SUMMARY | 2024-08-13 13:30 | XMS_ITS | Encounter Summary ---
Author Organization [facility] Address [address] [place] [address] Care Team Providers Care Banking Pin Adjuster Name Role Phone Ayan Clayton MD Primary Care Provider [phone] Encounter Details Date Type Department Care Team Description 03/17/2021 Fountain Server Report Medical Records [address] [place] [address] [facility] Social History Tobacco Use Types [...] on filedocumented in this encounter Care Teams Banking Pin Adjuster Relationship Specialty Start Date End Date Ayan Clayton MD [address] [place], [place] [phone] PCP - General Internal Medicine 09/24/19 documented as of this encounter
--- OUTSIDE RECORDS SUMMARY | 2024-08-13 13:30 | XMS_ITS | Encounter Summary ---
Author Organization [facility] Address [address] [place] [address] Care Team Providers Care Excavator Backhoe Operator Name Role Phone Ayan Clayton MD Primary Care Provider [phone] Encounter Details Date Type Department Care Team Description 08/25/2022 Tailman Report Medical Records [address] [place] [address] Alexis Campbell MD Social History Tobacco Use [...] on filedocumented in this encounter Care Teams Excavator Backhoe Operator Relationship Specialty Start Date End Date Ayan Clayton MD [address] [place] [address] PCP - General Internal Medicine 09/24/19 documented as of this encounter
--- OUTSIDE RECORDS SUMMARY | 2024-08-13 13:30 | XMS_ITS | Encounter Summary ---
Author Organization [facility] Address [address] [place] [address] Care Team Providers Care Director Of Global Sales Name Role Phone Ayan Clayton MD Primary Care Provider [phone] Encounter Details Date Type Department Care Team Description 10/11/2022 Vinyl Dipper Report Medical Records [address] [place] [address] Alexis Campbell MD Social History Tobacco Use [...] in this encounter Care Teams Director Of Global Sales Relationship Specialty Start Date End Date Ayan Clayton MD [address] [place] [address] PCP - General Internal Medicine 09/24/19 documented as of this encounter
--- OUTSIDE RECORDS SUMMARY | 2024-08-13 13:30 | XMS_ITS | Encounter Summary ---
Author Organization [facility] Address [address] [place] [address] Care Team Providers Care Field Sales Agent Name Role Phone Daniel Mota MD Primary Care Provider Ayan Rubalcava MD Primary Care Provider [phone] Reason for Visit * Reason Onset Date Comments REFERRAL 09/06/2017 Encounter Details Date Type Department Care Team Description 09/06/2017 Telephone Physiatry - [address] [address] Surjit Reese DO REFERRAL Social History Tobacco [...] filedocumented in this encounter Care Teams Field Sales Agent Relationship Specialty Start Date End Date Daniel Mota MD PCP - General Internal Medicine 10/20/16 09/23/19 Ayan Clayton MD [address] [place], [place] [phone] PCP - General Internal Medicine 09/24/19 documented as of this encounter
--- OUTSIDE RECORDS SUMMARY | 2024-08-13 13:30 | XMS_ITS | Encounter Summary ---
Author Organization [facility] Address [address] [place] [address] Care Team Providers Care Design Center Consultant Name Role Phone Daniel Mota MD Primary Care Provider Unavail Victor Manuel Yu MD Primary Care Provider Unava ilable Daniel Mota MD Primary Care Provider Unavail Ayan Pulliam MD Primary Care Provider [phone] Victor Manuel Gonzales MD Primary Care Provider Justinava jaxson Encounter Details Date Type Department Care Team Description 10/03/2012 Night Triage Doc Medical Records [address] [place] [address] Abstract, Provider Social History Tobacco Use Types [...] on filedocumented in this encounter Care Teams Design Center Consultant Relationship Specialty Start Date End Date Daniel Mota MD PCP - General 07/27/1994 12/22/15 Victor Manuel Gonzales MD PCP - General Internal Medicine 07/22/16 10/19/16 Daniel Mota MD PCP - General Internal Medicine 10/20/16 09/23/19 Ayan Clayton MD [address] [place] [address] PCP - General Internal Medicine 09/24/19 Victor Manuel Gonzales MD PCP - General 12/23/15 07/21/16 documented as of this encounter
--- OUTSIDE RECORDS SUMMARY | 2024-08-13 13:30 | XMS_ITS | Encounter Summary ---
Author Organization [facility] Address [address] [place] [address] Care Team Providers Care Technical Services Manager Name Role Phone Daniel Mota MD Primary Care Provider Ayan Rubalcava MD Primary Care Provider [phone] Encounter Details Date Type Department Care Team Description 05/24/2017 Orders Only Medical Records [address] [place] [address] Daniel Mota MD Social History Tobacco Use [...] on filedocumented in this encounter Care Teams Technical Services Manager Relationship Specialty Start Date End Date Daniel Mota MD PCP - General Internal Medicine 10/20/16 09/23/19 Ayan Clayton MD [address] [place] [address] PCP - General Internal Medicine 09/24/19 documented as of this encounter
--- OUTSIDE RECORDS SUMMARY | 2024-08-13 13:30 | XMS_ITS | Encounter Summary ---
Author Organization [facility] Address [address] [place] [address] Care Team Providers Care Bottle Blower Name Role Phone Ayan Clayton MD Primary Care Provider [phone] Encounter Details Date Type Department Care Team Description 02/27/2023 Pollution Control Chemist Report Medical Records [address] [place] [address] Fernie Ruiz MD Social History Tobacco Use [...] on filedocumented in this encounter Care Teams Bottle Blower Relationship Specialty Start Date End Date Ayan Clayton MD [address] [place] [address] PCP - General Internal Medicine 09/24/19 documented as of this encounter
--- OUTSIDE RECORDS SUMMARY | 2024-08-13 13:30 | XMS_ITS | Encounter Summary ---
Author Organization [facility] Address [address] [place] [address] Care Team Providers Care Nephrology Nurse Name Role Phone Ayan Clayton MD Primary Care Provider [phone] Encounter Details Date Type Department Care Team Description 04/08/2021 Transfer Records Medical Records [address] [place] [address] Jake Womack MD Social History Tobacco Use [...] on filedocumented in this encounter Care Teams Nephrology Nurse Relationship Specialty Start Date End Date Ayan Clayton MD [address] [place], [place] [phone] PCP - General Internal Medicine 09/24/19 documented as of this encounter
--- OUTSIDE RECORDS SUMMARY | 2024-08-13 13:30 | XMS_ITS | Encounter Summary ---
Author Organization [facility] Address [address] [place] [address] Care Team Providers Care Power Shovel Operator Name Role Phone Ayan Clayton MD Primary Care Provider Encounter Details Date Type Department Care Team Description 02/15/2021 Orders Only Medical Records [address] [place] [address] Ruth Mitchell MD [address] [place] [address] Social History Tobacco Use Types Packs/Day Years [...] on filedocumented in this encounter Care Teams Power Shovel Operator Relationship Specialty Start Date End Date Ayan Clayton MD [address] [place] [address] PCP - General Internal Medicine 09/24/19 documented as of this encounter
--- OUTSIDE RECORDS SUMMARY | 2024-08-13 13:30 | XMS_ITS | Encounter Summary ---
Author Organization [facility] Address [address] [place] [address] Care Team Providers Care Neonatal Critical Care Nurse Name Role Phone Daniel Mota MD Primary Care Provider Unavail Victor Manuel Yu MD Primary Care Provider Unava ilable Daniel Mota MD Primary Care Provider Unavail Ayan Pulliam MD Primary Care Provider [phone] Victor Manuel Gonzales MD Primary Care Provider Justinava jaxson Encounter Details Date Type Department Care Team Description 05/15/2012 Controlled Substance Plan Medical Records [address] [place] [address] Abstract, Provider Social History Tobacco Use Types [...] on filedocumented in this encounter Care Teams Neonatal Critical Care Nurse Relationship Specialty Start Date End Date Daniel Mota MD PCP - General 07/27/1994 12/22/15 Victor Manuel Gonzales MD PCP - General Internal Medicine 07/22/16 10/19/16 Daniel Mota MD PCP - General Internal Medicine 10/20/16 09/23/19 Ayan Clayton MD [address] [place] [address] PCP - General Internal Medicine 09/24/19 Victor Manuel Gonzales MD PCP - General 12/23/15 07/21/16 documented as of this encounter
--- OUTSIDE RECORDS SUMMARY | 2024-08-13 13:30 | XMS_ITS | Encounter Summary ---
Author Organization [facility] Address [address] [place] [address] Care Team Providers Care Senior Patient Account Representative Name Role Phone Ayan Clayton MD Primary Care Provider [phone] Encounter Details Date Type Department Care Team Description 03/26/2023 Software Engineer Report Medical Records [address] [place] [address] [facility] [address] [place] [address] Social History Tobacco Use Types Packs/Day Years [...] filedocumented in this encounter Care Teams Senior Patient Account Representative Relationship Specialty Start Date End Date Ayan Clayton MD [address] [place], [place] [phone] PCP - General Internal Medicine 09/24/19 documented as of this encounter
--- OUTSIDE RECORDS SUMMARY | 2024-08-13 13:30 | XMS_ITS | Encounter Summary ---
Author Organization [facility] Address [address] [place] [address] Care Team Providers Care Manager Telecom Name Role Phone Ayan Clayton MD Primary Care Provider [phone] Encounter Details Date Type Department Care Team Description 03/08/2023 Patent Searcher Report Medical Records [address] [place] [address] Blu Us I., PH.D Social History Tobacco [...] filedocumented in this encounter Care Teams Manager Telecom Relationship Specialty Start Date End Date Ayan Clayton MD [address] [place] [address] PCP - General Internal Medicine 09/24/19 documented as of this encounter
--- OUTSIDE RECORDS SUMMARY | 2024-08-13 13:30 | XMS_ITS | Encounter Summary ---
Author Organization [facility] Address [address] [place] [address] Care Team Providers Care Roller Man Name Role Phone Daniel Mota MD Primary Care Provider Unavail Victor Manuel Yu MD Primary Care Provider Unava ilable Daniel Mota MD Primary Care Provider Unavail Ayan Pulliam MD Primary Care Provider [phone] Victor Manuel Gonzales MD Primary Care Provider Justinava jaxson Encounter Details Date Type Department Care Team Description 07/01/2011 Controlled Substance Plan Medical Records [address] [place] [address] Abstract, Provider Social History Tobacco Use Types [...] on filedocumented in this encounter Care Teams Roller Man Relationship Specialty Start Date End Date Daniel Mota MD PCP - General 07/27/1994 12/22/15 Victor Manuel Gonzales MD PCP - General Internal Medicine 07/22/16 10/19/16 Daniel Mota MD PCP - General Internal Medicine 10/20/16 09/23/19 Ayan Clayton MD [address] [place] [id number] PCP - General Internal Medicine 09/24/19 Victor Manuel Gonzales MD PCP - General 12/23/15 07/21/16 documented as of this encounter
--- OUTSIDE RECORDS SUMMARY | 2024-08-13 13:30 | XMS_ITS | Encounter Summary ---
Author Organization [facility] Address [address] [place] [address] Care Team Providers Care Commercial Analyst Name Role Phone Daniel Mota MD Primary Care Provider Unavail Victor Manuel Yu MD Primary Care Provider Unava ilable Daniel Mota MD Primary Care Provider Unavail Ayan Pulliam MD Primary Care Provider [phone] Victor Manuel Gonzales MD Primary Care Provider Unava ilmaximino Encounter Details Date Type Department Care Team Description 11/04/2010 Fios Line Installer Report Medical Records [address] [place] [address] Elgin Russell MD Social History Tobacco Use [...] filedocumented in this encounter Care Teams Commercial Analyst Relationship Specialty Start Date End Date Daniel Mota MD PCP - General 07/27/1994 12/22/15 Victor Manuel Gonzales MD PCP - General Internal Medicine 07/22/16 10/19/16 Daniel Mota MD PCP - General Internal Medicine 10/20/16 09/23/19 Ayan Clayton MD [address] [place] [id number] PCP - General Internal Medicine 09/24/19 Victor Manuel Gonzales MD PCP - General 12/23/15 07/21/16 documented as of this encounter
--- OUTSIDE RECORDS SUMMARY | 2024-08-13 13:30 | XMS_ITS | Encounter Summary ---
Author Organization [facility] Address [address] [place] [address] Care Team Providers Care Blower Mechanic Name Role Phone Ayan Clayton MD Primary Care Provider [phone] Reason for Visit * Reason Onset Date Comments refill request 02/03/2021 Encounter Details Date Type Department Care Team Description 02/03/2021 Refill Pulmonology - Terry [address] [facility] [address] [place] [phone] Jil Freeman APRN [address] [facility] [address] [place] [phone] refill request Social History Tobacco Use Types [...] / Plan: [place] / Product Type: MEDICARE [id number] documented in this encounter Plan of Treatment Not on file documented as of this encounter Visit Diagnoses Diagnosis Post-nasal drainage Unspecified sinusitis (chronic) Centrilobular emphysema (HCC) Other emphysema documented in this encounter Care Teams Blower Mechanic Relationship Specialty Start Date End Date Ayan Clayton MD [address] [place] [address] PCP - General Internal Medicine 09/24/19 documented as of this encounter
--- OUTSIDE RECORDS SUMMARY | 2024-08-13 13:30 | XMS_ITS | Encounter Summary ---
Author Organization [facility] Address [address] [place] [address] Care Team Providers Care Patient Account Specialist Name Role Phone Daniel Mota MD Primary Care Provider Unavail able Ayan Clayton MD Primary Care Provider Encounter Details Date Type Department Care Team Description 03/22/2018 Release of Information Medical Records [address] [place] [id number] Abstract, Provider Social History Tobacco Use Types [...] filedocumented in this encounter Care Teams Patient Account Specialist Relationship Specialty Start Date End Date Daniel Mota MD PCP - General Internal Medicine 10/20/16 09/23/19 Ayan Clayton MD [address] [place] [address] PCP - General Internal Medicine 09/24/19 documented as of this encounter
--- OUTSIDE RECORDS SUMMARY | 2024-08-13 13:30 | XMS_ITS | Encounter Summary ---
Author Organization [facility] Address [address] [place] [address] Care Team Providers Care Medical Office Supervisor Name Role Phone Ayan Clayton MD Primary Care Provider [phone] Encounter Details Date Type Department Care Team Description 03/03/2021 Medical Operations Supervisor Report Medical Records [address] [place] [address] Rell Leavitt Social History Tobacco Use Types [...] on filedocumented in this encounter Care Teams Medical Office Supervisor Relationship Specialty Start Date End Date Ayan Clayton MD [address] [place], [place] [phone] PCP - General Internal Medicine 09/24/19 documented as of this encounter
[2024-08-21] VITALS (20 sets, daily range): BP systolic 124–165; BP diastolic 46–91; PULSE 59–81; RESP 12–20; TEMP 36.2–36.8; O2SAT 96–100; BMI 30.2
[2024-08-21] MEDS: 0.9 % Sodium Chloride 1,000 ML 100 ML IVCONT (08:10)
[2024-08-21 08:17] LABS: MANUAL DIFF FLAG NO
[2024-08-21 08:20] LABS: Basophils Absolute Auto 0.1 X10*3/uL (0.0-0.2); Basophils Percent Auto 1.3 % (0-2); Eosinophils Absolute Auto 0.7 X10*3/uL (0.0-0.4); Eosinophils Percent Auto 9.7 % (0-4); Hematocrit 33.4 % (37.0-47.0); Hemoglobin 10.5 g/dl (12.0-16.0); Imm Gran Abs Auto 0.03 X10*3/uL (0.00-0.03); Imm Gran Pct Auto 0.4 % (0.0-0.4); Lymphocytes Absolute Auto 1.3 X10*3/uL (1.2-4.9); Lymphocytes Percent Auto 18.2 % (20-40); Mean Corpuscular HGB Conc 31.4 g/dl (31.0-35.0); Mean Corpuscular Hemoglobin 29.1 pg (27.0-33.0); Mean Corpuscular Volume 92.5 fL (80.0-98.0); Mean Platelet Volume 9.7 fL (9.4-12.3); Monocytes Absolute Auto 0.8 X10*3/uL (0.1-1.2); Neutrophils Percent Auto 58.4 % (45-73); Platelet Count 231 X10*3/uL (160-400); Red Blood Count 3.61 X10*6/uL (4.20-5.50); Red Cell Distribution Width 14.8 % (11.0-16.0); White Blood Count 6.9 X10*3/uL (4.8-10.8)
[2024-08-21] MEDS: Midazolam HCl 2 MG/2 ML VIAL 0.5 MG IVPUSH ×2 (09:29→09:42)
[2024-08-21] MEDS: fentaNYL citrate/PF 100 MCG/2 ML VIAL 25 MCG IVPUSH ×2 (09:30→09:44)
[2024-08-21 10:51] LABS: Blood Urea Nitrogen 21 mg/dL (9-16); Creatinine Clr Calc Pharmacy 43.7; Estimated Glomerular Filt Rate 53
--- NOTE | 2024-08-21 11:09 | P.OP_ITS ---
Operative Note Operative Note Date of Service: 08/21/24 Narrative: Angiogram report from [facility] Preoperative diagnosis: DVT Postoperative diagnosis: Same Procedure: 1. Ultrasound-guided right internal jugular 2. Superior and inferior vena cavogram 3. Attempted removal of vena cava filter Surgeon:Ramu Osorio M.D., FACS, RPVI Texture Artist:None Anesthesia: Local with moderate conscious sedation. Total intraservice moderate sedation time was 71 minutes. I monitored the patient's level of consciousness and physiologic status continuously throughout the procedure. Specimens:none Drains:none Estimated blood loss: Less than 10 ml Radiation Dose: 874.5 mGy Implant: None Indications: 68-year-old female with a prior history of DVT had undergone prophylactic filter placement prior to orthopedic intervention. The patient has signed the informed consent after reviewing risks, complications, benefits, and alternatives previously discussed with the patient. The patient was given the opportunity to ask any additional questions or voice any concerns. All questions were answered to the patient's satisfaction. Procedure in detail: Patient was brought to the angiography suite prior to which a time-out was called for patient identification and site verification. Right neck was prepped and draped in the standard surgical fashion. Under ultrasound guidance right internal jugular vein was punctured with micro puncture needle and wire. Subsequently a precision 5 Estonian sheath was then placed. Bentson wire was advanced to the level of the inferior vena cava. 5 Estonian Flush catheter was brought up and parked at the level of the filter. Arthur a cavogram was then undertaken. Once this was accomplished we then exchanged out for a Glidewire advantage and brought the snare kit for the Bard Flores filter. The snare kit was brought into position and we did bring out the loop of the snare. Multiple attempts was made to snare the hook of the filter. We were unable to do so multiple orthogonal views were then taken. It appeared that the hook of the filter was abutting the vessel wall. Once we did do this we exchanged out for an EN Snare which was a tri lobe retrieval snare. We were unable to hook this using this technique. We then brought in a balloon over the Glidewire advantage 1st an 8 x 40 then a 10 x 40 to try to dislodge the filter and once again it was so well encased that there was no movement. At this point since the filter was so well imbedded we made a decision to leave it in place. This was discussed with the patient. At this point the case was terminated. Catheter wire sheath was removed direct pressure was held for 10 minutes patient tolerated the procedure well returned to recovery with stable vitals. Interpretation of films: 1. Ultrasound demonstrates appropriate access right internal jugular vein N eedle entry was visualized. Image of ultrasound was saved. 2. Vena cavogram demonstrates appropriate vena cava with no evidence of thrombus. Appropriately placed filter. 3. Filter was well imbedded. Conclusion: 1. Unsuccessful removal of filter. Will leave it in place. 2. Anticoagulation status: Continue Eliquis today. This note is constructed using voice recognition software. While every effort has been made to ensure accuracy, senior front end engineer errors may have been included. Thank you for allowing me to participate in the care of your patient. Yours sincerely, Ramu Osorio MD, FACS, R.P.V.I.
== END 2024-08-21 12:15 | disposition home or self-care (01) ==
PROVIDERS: PCP Hospitalist; Visit Provider Surgery Vascular Surgery
DX: Z45.89 Encounter for adjustment and management of other implanted devices (principal); Z53.8 Procedure and treatment not carried out for other reasons; Z95.828 Presence of other vascular implants and grafts; Z86.718 Personal history of other venous thrombosis and embolism; Z79.01 Long term (current) use of anticoagulants
CPT/HCPCS: 36415; 37193; 82565; 84520; 85025; 99152; 99153; C1725; C1769; C1773; C1887; J1644; J2250; J3010; Q9967

== ENCOUNTER → 2024-08-21 07:12 | Outpatient (BNV) | payer OTHER, SELFPAY | PROVIDERS: PCP Hospitalist; Visit Provider Surgery Vascular Surgery | DX: Z86.718 Personal history of other venous thrombosis and embolism (principal); Z95.828 Presence of other vascular implants and grafts | CPT/HCPCS: 37193; 99152 ==